=== PATIENT | female | born 1945 | race American Indian/Alaskan Native ===

== ENCOUNTER 2022-07-07 02:19 | Inpatient (IN) | payer MEDICARE, OTHER ==
[2022-07-07] MEDS ORDERED: SODIUM CHLORIDE 0.9% 500 ML 500 ML IV ONE (02:27)
[2022-07-07] MEDS ORDERED: ETOMIDATE 20 MG/10 ML INJ IV ONE (02:28)
[2022-07-07] MEDS ORDERED: ROCURONIUM 50 MG/5 ML INJ IV ONE (02:28)
--- NOTE | 2022-07-07 02:44 | Emergency Department Report ---
<LUCERO HOGAN - Last Filed: 07/07/22 07:11> ED General Adult HPI - General Chief complaint: Altered Mental Status Stated complaint: UNRESPONSIVE Time Seen by Provider: 07/07/22 02:27 - Related Data Home Medications Medication Instructions Recorded Confirmed Last Taken Apixaban [Eliquis] 5 mg PO BID 07/08/22 07/08/22 Unknown AtorvaSTATin [Lipitor] 80 mg PO QHS 07/08/22 07/08/22 Unknown Cholecalciferol Vit D3 [Vitamin D3 1,000 unit PO QDAY 07/08/22 07/08/22 Unknown 1,000 UNIT TAB] Levothyroxine [Synthroid] 75 mcg PO QAM 07/08/22 07/08/22 Unknown Melatonin [Melatonin 5MG TAB] 5 mg PO QHS 07/08/22 07/08/22 Unknown Mirtazapine 7.5 mg PO QHS 07/08/22 07/08/22 Unknown Omeprazole Magnesium [PriLOSEC Otc] 40 mg PO QDAY 07/08/22 07/08/22 Unknown VALPROIC ACID Liq [DepaKENE Liq] 250 mg PO Q12H 07/08/22 07/08/22 Unknown Allergies Allergy/AdvReac Type Severity Reaction Status Date / Time Penicillins Allergy Unknown Verified 07/07/22 18:23 ED Past Medical Hx - Medications Home Medications: Home Medications Medication Instructions Recorded Confirmed Last Taken Type Apixaban [Eliquis] 5 mg PO BID 07/08/22 07/08/22 Unknown History AtorvaSTATin [Lipitor] 80 mg PO QHS 07/08/22 07/08/22 Unknown History Cholecalciferol Vit D3 [Vitamin D3 1,000 unit PO QDAY 07/08/22 07/08/22 Unknown History 1,000 UNIT TAB] Levothyroxine [Synthroid] 75 mcg PO QAM 07/08/22 07/08/22 Unknown History Melatonin [Melatonin 5MG TAB] 5 mg PO QHS 07/08/22 07/08/22 Unknown History Mirtazapine 7.5 mg PO QHS 07/08/22 07/08/22 Unknown History Omeprazole Magnesium [PriLOSEC Otc] 40 mg PO QDAY 07/08/22 07/08/22 Unknown History VALPROIC ACID Liq [DepaKENE Liq] 250 mg PO Q12H 07/08/22 07/08/22 Unknown History ED Medical Decision Making - Lab Data Result diagrams: 07/07/22 03:38 07/07/22 04:17 ED Disposition Clinical Impression: Acute respiratory failure, Acute encephalopathy, UTI (urinary tract infection), SIRS (systemic inflammatory response syndrome), Rhabdomyolysis, Dehydration, Hypothyroidism, Hypernatremia Disposition: ADMITTED INPATIENT Condition: Critical Time of Disposition: 07:11 (Care transferred to hospitalist Dr. Victoria (discussed with Dr. Etienne)) <SERENITY HOGUE - Last Filed: 07/08/22 14:01> ED General Adult HPI - General Source: EMS (Verbal report received from emergency medical services. EMS documentation not available at time of chart dictation ), RN notes reviewed Mode of arrival: Stretcher Limitations: Altered Mental Status, Physical Limitation - History of Present Illness Initial comments: The patient was evaluated in the emergency department for symptoms described in the history of present illness. He/she was evaluated in the context of the global COVID-19 pandemic, which necessitated consideration that the patient might be at risk for infection with the virus that causes COVID-19. Institutional protocols and algorithms that pertain to the evaluation of patients at risk for COVID-19 are in a state of rapid change based on information released by regulatory bodies including the CDC and federal and state organizations. These policies and algorithms were followed during the patient's care in the emergency department. Please note that these policies, procedures and recommendations changed on a rapid basis. Primary care doctor: Dr. Garcia This is a 76-year-old female. Her past medical history includes stroke, hemiplegia, dysphagia, aphasia, dementia, history of pulmonary embolism without acute cor pulmonale, hypothyroidism, and obstructive sleep apnea. She is brought to the hospital by emergency medical services with an EMS articulated complaints of altered mental status, diminished cognition, and possible hypoxia. The patient is currently altered, encephalopathic. Her last known well time is not known. The patient is not able to describe the qualitative nature of symptoms, exacerbating factors relieving factors or aggravating factors. Current home medications include Eliquis, Synthroid, Lipitor, melatonin, Prilosec, Depakote, and enclose long-term paperwork indicates that she is a full code. Patient upon arrival is not accompanied by friends or family to describe collateral information or additional history. No additional history is available at this time -: unknown ED Review of Systems ROS: Stated complaint: UNRESPONSIVE Other details as noted in HPI Comment: Unobtainable due to pts medical conditions ED Physical Exam - General Limitations: Altered Mental Status, Physical Limitation General appearance: obtunded - Head Head exam: Present: atraumatic, normocephalic - Eye Eye exam: Present: normal appearance - ENT ENT exam: Present: mucous membranes dry, normal external ear exam, other (Copious secretions noted in the oropharynx. Gag reflex not appreciated) - Neck Neck exam: Present: normal inspection. Absent: tenderness, meningismus - Respiratory Respiratory exam: Present: respiratory distress, rhonchi - Cardiovascular Cardiovascular Exam: Present: normal rhythm, tachycardia. Absent: bradycardia, irregular rhythm, systolic murmur, diastolic murmur, rubs, gallop - GI/Abdominal GI/Abdominal exam: Present: soft. Absent: distended, tenderness, guarding, rebound, rigid, pulsatile mass - Rectal Rectal exam: Present: normal inspection - External exam: Present: normal external exam - Extremities Exam Extremities exam: Present: normal inspection, other (2+ pulses noted in the bilateral upper and lower extremities. There is no palpable cord. negative Homans sign. Muscular compartments are soft. The pelvis is stable.) - Back Exam Back exam: Present: normal inspection. Absent: tenderness, CVA tenderness (R), CVA tenderness (L), paraspinal tenderness, vertebral tenderness - Neurological Exam Neurological exam: Present: altered, other (The patient is altered. The patient moves 4 extremities in response to painful stimuli. Minimal gag reflex appreciated. No obvious facial droop.) - Psychiatric Psychiatric exam: Present: other (Patient is nonverbal) - Skin Skin exam: Present: warm, dry, intact, normal color. Absent: rash ED Course Vital Signs 07/07/22 07/07/22 07/07/22 02:19 02:40 02:45 Temperature Pulse Rate 107 H 109 H Respiratory 20 15 10 L Rate Blood Pressure 123/85 Blood Pressure [Right] O2 Sat by Pulse 90 0 L Oximetry 07/07/22 07/07/22 07/07/22 02:46 02:50 03:00 Temperature 96.1 F L Pulse Rate 99 H 120 H 141 H Respiratory 16 24 Rate Blood Pressure 123/85 107/84 Blood Pressure 137/104 [Right] O2 Sat by Pulse 100 95 56 L Oximetry 07/07/22 07/07/22 07/07/22 03:16 03:31 03:45 Temperature Pulse Rate 131 H 123 H 108 H Respiratory 22 Rate Blood Pressure 150/115 140/103 130/100 Blood Pressure [Right] O2 Sat by Pulse 86 Oximetry 07/07/22 07/07/22 07/07/22 04:00 04:15 04:31 Temperature Pulse Rate 117 H 108 H 104 H Respiratory 22 22 Rate Blood Pressure 138/101 130/100 98/73 Blood Pressure [Right] O2 Sat by Pulse Oximetry 07/07/22 07/07/22 07/07/22 04:45 05:01 05:06 Temperature Pulse Rate 71 77 120 H Respiratory 22 16 Rate Blood Pressure 152/101 164/100 Blood Pressure [Right] O2 Sat by Pulse 96 86 100 Oximetry 07/07/22 07/07/22 07/07/22 05:15 05:31 05:45 Temperature Pulse Rate 78 81 81 Respiratory 16 16 16 Rate Blood Pressure 152/103 133/93 132/94 Blood Pressure [Right] O2 Sat by Pulse 91 100 99 Oximetry 07/07/22 07/07/22 07/07/22 06:01 06:15 06:30 Temperature Pulse Rate 82 84 93 H Respiratory 16 16 16 Rate Blood Pressure 123/88 122/86 131/100 Blood Pressure [Right] O2 Sat by Pulse 96 97 99 Oximetry 07/07/22 07/07/22 07/07/22 06:46 07:00 07:15 Temperature Pulse Rate 90 92 H 94 H Respiratory 16 16 16 Rate Blood Pressure 125/91 127/90 127/90 Blood Pressure [Right] O2 Sat by Pulse Oximetry 07/07/22 07/07/22 07/07/22 07:30 07:46 08:00 Temperature Pulse Rate 92 H 92 H 93 H Respiratory 17 16 16 Rate Blood Pressure 115/85 108/82 106/73 Blood Pressure [Right] O2 Sat by Pulse 93 91 Oximetry 07/07/22 07/07/22 07/07/22 08:16 08:30 08:46 Temperature Pulse Rate 92 H 99 H 93 H Respiratory 16 12 16 Rate Blood Pressure 111/79 101/71 105/73 Blood Pressure [Right] O2 Sat by Pulse 91 Oximetry 07/07/22 07/07/22 07/07/22 08:55 09:00 09:16 Temperature Pulse Rate 118 H 107 H 93 H Respiratory 16 16 Rate Blood Pressure 117/76 113/72 120/80 Blood Pressure [Right] O2 Sat by Pulse 90 74 L Oximetry 07/07/22 07/07/22 07/07/22 09:30 09:45 10:00 Temperature Pulse Rate 97 H 98 H 101 H Respiratory 15 16 11 L Rate Blood Pressure 127/87 119/82 130/82 Blood Pressure [Right] O2 Sat by Pulse 85 51 L Oximetry 07/07/22 07/07/22 07/07/22 10:16 10:30 10:46 Temperature Pulse Rate 93 H 93 H 92 H Respiratory 13 16 17 Rate Blood Pressure 116/79 117/78 122/77 Blood Pressure [Right] O2 Sat by Pulse 98 84 Oximetry 07/07/22 07/07/22 07/07/22 11:00 11:16 11:30 Temperature Pulse Rate 90 92 H 91 H Respiratory 15 15 16 Rate Blood Pressure 105/75 115/73 119/80 Blood Pressure [Right] O2 Sat by Pulse 92 Oximetry 07/07/22 07/07/22 07/07/22 11:46 11:54 12:00 Temperature Pulse Rate 90 117 H Respiratory 16 15 Rate Blood Pressure 118/76 112/84 Blood Pressure [Right] O2 Sat by Pulse 99 74 L Oximetry 07/07/22 07/07/22 07/07/22 12:16 12:30 12:46 Temperature Pulse Rate 91 H 102 H 101 H Respiratory 16 15 16 Rate Blood Pressure 114/72 124/89 117/76 Blood Pressure [Right] O2 Sat by Pulse 94 82 L Oximetry - Reevaluation(s) Reevaluation #1: 07/07/22 03:42 Differential diagnosis, include not limited to: Intracranial hemorrhage, pneumonia, UTI, electrolyte derangement, thyroid derangement, toxic metabolic encephalopathy Assessment and plan: 76-year-old female with alteration in mental status, last known well time is not known. She is not protecting her airway. She required intubation. She was intubated by myself with 1 attempt, with no obvious difficulty. Please see procedure note. X-ray chest abdomen are reviewed and appreciated. Laboratory studies pending. Noncontrast CT scan of the brain pending. Rectal temperature 96.7 degrees. Discussed with critical care physician, Dr. Abel. Presuming patient does not have a condition which would require transfer, plan to admit patient to the ICU for supportive care. Dr. Abel is in agreement with this plan of care. He requested COVID swab. Currently awaiting CT scan brain, and laboratory studies. 07/07/22 05:[address] scan of the brain negative for acute findings. X-rays reviewed and appreciated. UA suggestive of UTI. Laboratory studies suggestive of lactic acidosis, elevated CK/rhabdomyolysis, profound dehydration, elevated sodium, hypothyroidism, questionable myxedema. Continue IV fluid resuscitation, start D5 half-normal. Stress dose steroids, hydrocortisone, Synthroid, ceftriaxone, potassium supplementation. Discussed history, physical, laboratory studies and clinical impression with nephrology on-call, Dr. Kincaid He is in agreement with the plan of care. Nephrology will follow in consultation. Care be transferred to the oncoming ER physician, to contact hospital physician to arrange admission, as the current hospitalist physician nocturnally is not able to accept any more admissions - Intubation Time Out Performed: No (Emergency situation) Sedative: Etomidate Mg Given: 20 Paralytic: Rocuronium Mg Given: 100 Laryngoscope: fiberoptic video scope Size: 4 Assist Device Used: fiberoptic device ET Tube Size: 7.5 Tube Secured Depth (cm): 24 Tube Secured Location: lips Tube Placement Confirmation: visualized tube passing t, equal breath sounds bilat, no breath sounds over epi, confirmation by capnometr Patient Tolerated Procedure: well Intubation Complications: none Additional Comments: Patient placed on nasal cannula 15 L/min. Received simultaneous [id number] ventilation. Video laryngoscopy is performed, with a curved S4 video living scope blade, and a 7.5 endotracheal tube is gently inserted into the oropharynx, after appropriate suctioning. The tube is placed through the trachea without d ifficulty, stylette is removed, corporate pilot balloon is inflated, and end-tidal capnography confirmatory device is attached to the endotracheal tube, and there is appropriate end-tidal capnography color change. Condensation is noted on the tube, and there are appropriate breath sounds appreciated bilaterally. The patient tolerated the procedure well, without obvious complication ED Medical Decision Making - Lab Data Result diagrams: 07/07/22 03:38 07/07/22 Unknown Vital Signs 07/07/22 02:46 Temperature 96.1 F L Pulse Rate 146 H Respiratory 20 Rate Blood Pressure 137/104 [Right] O2 Sat by Pulse 100 Oximetry Lab Results 07/07/22 07/07/22 07/07/22 Range/Units 03:17 03:17 03:38 WBC 9.2 (4.5-11.0) K/mm3 RBC 5.43 H (3.65-5.03) M/mm3 Hgb 18.2 H (10.1-14.3) gm/dl Hct 54.9 H (30.3-42.9) % MCV 101 H (79-97) fl MCH 34 H (28-32) pg MCHC 33 (30-34) % RDW 14.8 (13.2-15.2) % Plt Count 104 L (140-440) K/mm3 Lymph % (Auto) 28.4 (13.4-35.0) % [place] % (Auto) 3.3 (0.0-7.3) % Eos % (Auto) 0.1 (0.0-4.3) % Baso % (Auto) 0.2 (0.0-1.8) % Lymph # (Auto) 2.6 (1.2-5.4) K/mm3 [place] # (Auto) 0.3 (0.0-0.8) K/mm3 Eos # (Auto) 0.0 (0.0-0.4) K/mm3 Baso # (Auto) 0.0 (0.0-0.1) K/mm3 Seg Neutrophils % 68.0 (40.0-70.0) % Seg Neutrophils # 6.3 (1.8-7.7) K/mm3 PT (12.2-14.9) Sec. INR (0.87-1.13) APTT (24.2-36.6) Sec. ABG pH (7.350-7.450) pH Units ABG pCO2 mm Hg ABG pO2 (80.0-90.0) mm Hg ABG HCO3 (20.0-26.0) mmol/L ABG O2 Saturation (95.0-99.0) % ABG O2 Content (0.0-44) ABG Base Excess (-2.0-3.0) mmol/L ABG Hemoglobin (12.0-16.0) gm/dl ABG Carboxyhemoglobin (0.0-5.0) % ABG Methemoglobin (0.0-1.5) % Oxyhemoglobin (95.0-99.0) % FiO2 % Sodium (137-145) mmol/L Potassium (3.6-5.0) mmol/L Chloride (98-107) mmol/L Carbon Dioxide (22-30) mmol/L Anion Gap mmol/L BUN (7-17) mg/dL Creatinine (0.6-1.2) mg/dL Estimated GFR ml/min BUN/Creatinine Ratio % Glucose (65-100) mg/dL Lactic Acid (0.7-2.0) mmol/L Calcium (8.4-10.2) mg/dL Magnesium (1.7-2.3) mg/dL Total Bilirubin (0.1-1.2) mg/dL AST (5-40) units/L ALT (7-56) units/L Alkaline Phosphatase (35-129) units/L Ammonia (25-60) umol/L Total Creatine Kinase (30-135) units/L Troponin T (0.00-0.029) ng/mL Total Protein (6.3-8.2) g/dL Albumin (3.9-5) g/dL Albumin/Globulin Ratio % TSH (0.270-4.200) mlU/mL Free T4 (0.76-1.46) ng/dL Urine Color Yellow (Yellow) Urine Turbidity Slightly cloudy (Clear) Specific [place] (Man) 1.015 (1.003-1.030) Ur Protein (Man) 1+ (Negative) mg/dL Ur Ketones (Man) Negative (Negative) Ur Nitrite (Man) Negative (Negative) Urine Bilirubin (Man) Negative (Negative) Leukocyte Esterase (Man) Negative (Negative) Urine WBC (Auto) 7.0 H (0.0-6.0) /HPF Urine RBC (Auto) 1.0 (0.0-6.0) /HPF U Epithel Cells (Auto) 4.0 (0-13.0) /HPF Urine Bacteria (Auto) 3+ (Negative) /HPF Urine RBC (Manual) 3+ (Negative) Urine Mucus 3+ /HPF Salicylates (2.8-20.0) mg/dL Urine Opiates Screen Presumptive negative Urine Methadone Screen Presumptive negative Acetaminophen (10.0-30.0) ug/mL Ur Barbiturates Screen Presumptive negative Valproic Acid (50-100) ug/mL Ur Phencyclidine Scrn Presumptive negative Ur Amphetamines Screen Presumptive negative U Benzodiazepines Scrn Presumptive negative Urine Cocaine Screen Presumptive negative U Marijuana (THC) Screen Presumptive negative Drugs of Abuse Note Disclamer Plasma/Serum Alcohol (0-0.07) % 07/07/22 07/07/22 07/07/22 Range/Units 03:38 03:38 03:38 WBC (4.5-11.0) K/mm3 RBC (3.65-5.03) M/mm3 Hgb (10.1-14.3) gm/dl Hct (30.3-42.9) % MCV (79-97) fl MCH (28-32) pg MCHC (30-34) % RDW (13.2-15.2) % Plt Count (140-440) K/mm3 Lymph % (Auto) (13.4-35.0) % [place] % (Auto) (0.0-7.3) % Eos % (Auto) (0.0-4.3) % Baso % (Auto) (0.0-1.8) % Lymph # (Auto) (1.2-5.4) K/mm3 [place] # (Auto) (0.0-0.8) K/mm3 Eos # (Auto) (0.0-0.4) K/mm3 Baso # (Auto) (0.0-0.1) K/mm3 Seg Neutrophils % (40.0-70.0) % Seg Neutrophils # (1.8-7.7) K/mm3 PT 15.0 H (12.2-14.9) Sec. INR 1.06 (0.87-1.13) APTT 23.0 L (24.2-36.6) Sec. ABG pH (7.350-7.450) pH Units ABG pCO2 mm Hg ABG pO2 (80.0-90.0) mm Hg ABG HCO3 (20.0-26.0) mmol/L ABG O2 Saturation (95.0-99.0) % ABG O2 Content (0.0-44) ABG Base Excess (-2.0-3.0) mmol/L ABG Hemoglobin (12.0-16.0) gm/dl ABG Carboxyhemoglobin (0.0-5.0) % ABG Methemoglobin (0.0-1.5) % Oxyhemoglobin (95.0-99.0) % FiO2 % Sodium (137-145) mmol/L Potassium (3.6-5.0) mmol/L Chloride (98-107) mmol/L Carbon Dioxide (22-30) mmol/L Anion Gap mmol/L BUN (7-17) mg/dL Creatinine (0.6-1.2) mg/dL Estimated GFR ml/min BUN/Creatinine Ratio % Glucose (65-100) mg/dL Lactic Acid (0.7-2.0) mmol/L Calcium (8.4-10.2) mg/dL Magnesium (1.7-2.3) mg/dL Total Bilirubin (0.1-1.2) mg/dL AST (5-40) units/L ALT (7-56) units/L Alkaline Phosphatase (35-129) units/L Ammonia (25-60) umol/L Total Creatine Kinase (30-135) units/L Troponin T (0.00-0.029) ng/mL Total Protein (6.3-8.2) g/dL Albumin (3.9-5) g/dL Albumin/Globulin Ratio % TSH (0.270-4.200) mlU/mL Free T4 (0.76-1.46) ng/dL Urine Color (Yellow) Urine Turbidity (Clear) Specific [place] (Man) (1.003-1.030) Ur Protein (Man) (Negative) mg/dL Ur Ketones (Man) (Negative) Ur Nitrite (Man) (Negative) Urine Bilirubin (Man) (Negative) Leukocyte Esterase (Man) (Negative) Urine WBC (Auto) (0.0-6.0) /HPF Urine RBC (Auto) (0.0-6.0) /HPF U Epithel Cells (Auto) (0-13.0) /HPF Urine Bacteria (Auto) (Negative) /HPF Urine RBC (Manual) (Negative) Urine Mucus /HPF Salicylates < 0.3 L (2.8-20.0) mg/dL Urine Opiates Screen Urine Methadone Screen Acetaminophen 5.0 L (10.0-30.0) ug/mL Ur Barbiturates Screen Valproic Acid 7.0 L (50-100) ug/mL Ur Phencyclidine Scrn Ur Amphetamines Screen U Benzodiazepines Scrn Urine Cocaine Screen U Marijuana (THC) Screen Drugs of Abuse Note Plasma/Serum Alcohol (0-0.07) % 07/07/22 07/07/22 07/07/22 Range/Units 03:38 03:38 04:17 WBC (4.5-11.0) K/mm3 RBC (3.65-5.03) M/mm3 Hgb (10.1-14.3) gm/dl Hct (30.3-42.9) % MCV (79-97) fl MCH (28-32) pg MCHC (30-34) % RDW (13.2-15.2) % Plt Count (140-440) K/mm3 Lymph % (Auto) (13.4-35.0) % [place] % (Auto) (0.0-7.3) % Eos % (Auto) (0.0-4.3) % Baso % (Auto) (0.0-1.8) % Lymph # (Auto) (1.2-5.4) K/mm3 [place] # (Auto) (0.0-0.8) K/mm3 Eos # (Auto) (0.0-0.4) K/mm3 Baso # (Auto) (0.0-0.1) K/mm3 Seg Neutrophils % (40.0-70.0) % Seg Neutrophils # (1.8-7.7) K/mm3 PT (12.2-14.9) Sec. INR (0.87-1.13) APTT (24.2-36.6) Sec. ABG pH (7.350-7.450) pH Units ABG pCO2 mm Hg ABG pO2 (80.0-90.0) mm Hg ABG HCO3 (20.0-26.0) mmol/L ABG O2 Saturation (95.0-99.0) % ABG O2 Content (0.0-44) ABG Base Excess (-2.0-3.0) mmol/L ABG Hemoglobin (12.0-16.0) gm/dl ABG Carboxyhemoglobin (0.0-5.0) % ABG Methemoglobin (0.0-1.5) % Oxyhemoglobin (95.0-99.0) % FiO2 % Sodium 168 H* (137-145) mmol/L Potassium 3.2 L (3.6-5.0) mmol/L Chloride 122.2 H (98-107) mmol/L Carbon Dioxide 24 (22-30) mmol/L Anion Gap 25 mmol/L BUN 52 H (7-17) mg/dL Creatinine 0.9 (0.6-1.2) mg/dL Estimated GFR > 60 ml/min BUN/Creatinine Ratio 58 % Glucose 158 H (65-100) mg/dL Lactic Acid (0.7-2.0) mmol/L Calcium 10.9 H (8.4-10.2) mg/dL Magnesium 3.30 H (1.7-2.3) mg/dL Total Bilirubin 1.40 H (0.1-1.2) mg/dL AST 47 H (5-40) units/L ALT 36 (7-56) units/L Alkaline Phosphatase 87 (35-129) units/L Ammonia (25-60) umol/L Total Creatine Kinase 1826 H (30-135) units/L Troponin T 0.010 (0.00-0.029) ng/mL Total Protein 7.7 (6.3-8.2) g/dL Albumin 4.2 (3.9-5) g/dL Albumin/Globulin Ratio 1.2 % TSH (0.270-4.200) mlU/mL Free T4 (0.76-1.46) ng/dL Urine Color (Yellow) Urine Turbidity (Clear) Specific [place] (Man) (1.003-1.030) Ur Protein (Man) (Negative) mg/dL Ur Ketones (Man) (Negative) Ur Nitrite (Man) (Negative) Urine Bilirubin (Man) (Negative) Leukocyte Esterase (Man) (Negative) Urine WBC (Auto) (0.0-6.0) /HPF Urine RBC (Auto) (0.0-6.0) /HPF U Epithel Cells (Auto) (0-13.0) /HPF Urine Bacteria (Auto) (Negative) /HPF Urine RBC (Manual) (Negative) Urine Mucus /HPF Salicylates (2.8-20.0) mg/dL Urine Opiates Screen Urine Methadone Screen Acetaminophen (10.0-30.0) ug/mL Ur Barbiturates Screen Valproic Acid (50-100) ug/mL Ur Phencyclidine Scrn Ur Amphetamines Screen U Benzodiazepines Scrn Urine Cocaine Screen U Marijuana (THC) Screen Drugs of Abuse Note Plasma/Serum Alcohol < 0.01 (0-0.07) % 07/07/22 07/07/22 07/07/22 Range/Units 04:17 04:17 04:17 WBC (4.5-11.0) K/mm3 RBC (3.65-5.03) M/mm3 Hgb (10.1-14.3) gm/dl Hct (30.3-42.9) % MCV (79-97) fl MCH (28-32) pg MCHC (30-34) % RDW (13.2-15.2) % Plt Count (140-440) K/mm3 Lymph % (Auto) (13.4-35.0) % [place] % (Auto) (0.0-7.3) % Eos % (Auto) (0.0-4.3) % Baso % (Auto) (0.0-1.8) % Lymph # (Auto) (1.2-5.4) K/mm3 [place] # (Auto) (0.0-0.8) K/mm3 Eos # (Auto) (0.0-0.4) K/mm3 Baso # (Auto) (0.0-0.1) K/mm3 Seg Neutrophils % (40.0-70.0) % Seg Neutrophils # (1.8-7.7) K/mm3 PT (12.2-14.9) Sec. INR (0.87-1.13) APTT (24.2-36.6) Sec. ABG pH (7.350-7.450) pH Units ABG pCO2 mm Hg ABG pO2 (80.0-90.0) mm Hg ABG HCO3 (20.0-26.0) mmol/L ABG O2 Saturation (95.0-99.0) % ABG O2 Content (0.0-44) ABG Base Excess (-2.0-3.0) mmol/L ABG Hemoglobin (12.0-16.0) gm/dl ABG Carboxyhemoglobin (0.0-5.0) % ABG Methemoglobin (0.0-1.5) % Oxyhemoglobin (95.0-99.0) % FiO2 % Sodium (137-145) mmol/L Potassium (3.6-5.0) mmol/L Chloride (98-107) mmol/L Carbon Dioxide (22-30) mmol/L Anion Gap mmol/L BUN (7-17) mg/dL Creatinine (0.6-1.2) mg/dL Estimated GFR ml/min BUN/Creatinine Ratio % Glucose (65-100) mg/dL Lactic Acid 3.50 H* (0.7-2.0) mmol/L Calcium (8.4-10.2) mg/dL Magnesium (1.7-2.3) mg/dL Total Bilirubin (0.1-1.2) mg/dL AST (5-40) units/L ALT (7-56) units/L Alkaline Phosphatase (35-129) units/L Ammonia 32.0 (25-60) umol/L Total Creatine Kinase (30-135) units/L Troponin T (0.00-0.029) ng/mL Total Protein (6.3-8.2) g/dL Albumin (3.9-5) g/dL Albumin/Globulin Ratio % TSH (0.270-4.200) mlU/mL Free T4 0.78 (0.76-1.46) ng/dL Urine Color (Yellow) Urine Turbidity (Clear) Specific [place] (Man) (1.003-1.030) Ur Protein (Man) (Negative) mg/dL Ur Ketones (Man) (Negative) Ur Nitrite (Man) (Negative) Urine Bilirubin (Man) (Negative) Leukocyte Esterase (Man) (Negative) Urine WBC (Auto) (0.0-6.0) /HPF Urine RBC (Auto) (0.0-6.0) /HPF U Epithel Cells (Auto) (0-13.0) /HPF Urine Bacteria (Auto) (Negative) /HPF Urine RBC (Manual) (Negative) Urine Mucus /HPF Salicylates (2.8-20.0) mg/dL Urine Opiates Screen Urine Methadone Screen Acetaminophen (10.0-30.0) ug/mL Ur Barbiturates Screen Valproic Acid (50-100) ug/mL Ur Phencyclidine Scrn Ur Amphetamines Screen U Benzodiazepines Scrn Urine Cocaine Screen U Marijuana (THC) Screen Drugs of Abuse Note Plasma/Serum Alcohol (0-0.07) % 07/07/22 07/07/22 Range/Units 04:17 Unknown WBC (4.5-11.0) K/mm3 RBC (3.65-5.03) M/mm3 Hgb (10.1-14.3) gm/dl Hct (30.3-42.9) % MCV (79-97) fl MCH (28-32) pg MCHC (30-34) % RDW (13.2-15.2) % Plt Count (140-440) K/mm3 Lymph % (Auto) (13.4-35.0) % [place] % (Auto) (0.0-7.3) % Eos % (Auto) (0.0-4.3) % Baso % (Auto) (0.0-1.8) % Lymph # (Auto) (1.2-5.4) K/mm3 [place] # (Auto) (0.0-0.8) K/mm3 Eos # (Auto) (0.0-0.4) K/mm3 Baso # (Auto) (0.0-0.1) K/mm3 Seg Neutrophils % (40.0-70.0) % Seg Neutrophils # (1.8-7.7) K/mm3 PT (12.2-14.9) Sec. INR (0.87-1.13) APTT (24.2-36.6) Sec. ABG pH 7.553 H (7.350-7.450) pH Units ABG pCO2 29.5 mm Hg ABG pO2 61.7 L (80.0-90.0) mm Hg ABG HCO3 25.4 (20.0-26.0) mmol/L ABG O2 Saturation 94.7 L (95.0-99.0) % ABG O2 Content 23.5 (0.0-44) ABG Base Excess 4.3 H (-2.0-3.0) mmol/L ABG Hemoglobin 18.0 H (12.0-16.0) gm/dl ABG Carboxyhemoglobin 1.0 (0.0-5.0) % ABG Methemoglobin 0.7 (0.0-1.5) % Oxyhemoglobin 93.1 L (95.0-99.0) % FiO2 100 % Sodium (137-145) mmol/L Potassium (3.6-5.0) mmol/L Chloride (98-107) mmol/L Carbon Dioxide (22-30) mmol/L Anion Gap mmol/L BUN (7-17) mg/dL Creatinine (0.6-1.2) mg/dL Estimated GFR ml/min BUN/Creatinine Ratio % Glucose (65-100) mg/dL Lactic Acid (0.7-2.0) mmol/L Calcium (8.4-10.2) mg/dL Magnesium (1.7-2.3) mg/dL Total Bilirubin (0.1-1.2) mg/dL AST (5-40) units/L ALT (7-56) units/L Alkaline Phosphatase (35-129) units/L Ammonia (25-60) umol/L Total Creatine Kinase (30-135) units/L Troponin T (0.00-0.029) ng/mL Total Protein (6.3-8.2) g/dL Albumin (3.9-5) g/dL Albumin/Globulin Ratio % TSH 12.790 H (0.270-4.200) mlU/mL Free T4 (0.76-1.46) ng/dL Urine Color (Yellow) Urine Turbidity (Clear) Specific [place] (Man) (1.003-1.030) Ur Protein (Man) (Negative) mg/dL Ur Ketones (Man) (Negative) Ur Nitrite (Man) (Negative) Urine Bilirubin (Man) (Negative) Leukocyte Esterase (Man) (Negative) Urine WBC (Auto) (0.0-6.0) /HPF Urine RBC (Auto) (0.0-6.0) /HPF U Epithel Cells (Auto) (0-13.0) /HPF Urine Bacteria (Auto) (Negative) /HPF Urine RBC (Manual) (Negative) Urine Mucus /HPF Salicylates (2.8-20.0) mg/dL Urine Opiates Screen Urine Methadone Screen Acetaminophen (10.0-30.0) ug/mL Ur Barbiturates Screen Valproic Acid (50-100) ug/mL Ur Phencyclidine Scrn Ur Amphetamines Screen U Benzodiazepines Scrn Urine Cocaine Screen U Marijuana (THC) Screen Drugs of Abuse Note Plasma/Serum Alcohol (0-0.07) % - EKG Data -: EKG Interpreted by Me Rate: tachycardia - EKG Data When compared to previous EKG there are: previous EKG unavailable 07/07/22 03:36 The EKG is interpreted at 03: 2 0 This is sinus tachycardia, with a rate of 122 bpm. There is a leftward axis deviation, with a borderline left anterior fascicular block. There is atrial enlargement. There are nonspecific T wave abnormalities. This is an abnormal EKG. This is not a STEMI. - Radiology Data Radiology results: pending, report reviewed, image reviewed Abdomen single view INDICATION: Abdominal pain IMPRESSION: Esophagogastric tube terminates within the upper stomach. Signer Name: Alexis Resendiz MD Signed: 07/07/2022 2:25 AM Workstation Name: [id number] And CHEST 1 VIEW INDICATION / CLINICAL INFORMATION: ETT PMT Altered Mental Status. Dyspnea FINDINGS: SUPPORT DEVICES: The endotracheal tube terminates 3 cm above the mateo. Esophagogastric tube is noted within the stomach region.. HEART / MEDIASTINUM: The cardiomediastinal silhouette has not significantly changed in the interim. LUNGS / PLEURA: The lungs are clear. No pneumothorax. Signer Name: Alexis Resendiz MD Signed: 07/07/2022 2:25 AM Workstation Name: [email or web address] CT head without contrast INDICATION : Altered mental status TECHNIQUE: Axial imaging performed from the skull apex through the skull base without the use of contrast. All CT examinations performed at this facility utilize dose modulation, iterative reconstruction or weight-based dosing, when appropriate, to reduce radiation dose to as low as reasonably achievable. COMPARISON: None FINDINGS: No acute intracranial hemorrhage. There is hypodensity identified within the left frontal lobe consistent with chronic left MCA distribution in farct. Several small lacunar infarcts are present within the right basal ganglia and the left cerebellar hemisphere. There is mild diffuse cerebral atrophy. No extra-axial collection is identified The paranasal sinuses are clear.. The orbits are unremarkable. IMPRESSION: No acute intracranial hemorrhage. Multiple chronic appearing infarcts including left MCA distribution, left cerebellar hemisphere and within the right basal ganglia, as above. Signer Name: Alexis Resendiz MD Signed: 07/07/2022 3:20 AM Critical Care Time: Yes Critical care time in (mins) excluding proc time.: 45 Critical care attestation.: If time is entered above; I have spent that time in minutes in the direct care of this critically ill patient, excluding procedure time. ED Disposition Is pt being admited?: Yes Does the pt Need Aspirin: No
[2022-07-07] MEDS ORDERED: fentaNYL 100 MCG/2 ML INJ IV PRN (02:48)
[2022-07-07] MEDS ORDERED: LIP THERAPY VASELINE TP PRN (02:48)
[2022-07-07] MEDS ORDERED: MINERAL OIL/PETROLATUM, WHITE OPHTH OINT 3.5 GM OU PRN (02:48)
[2022-07-07] MEDS ORDERED: fentaNYL DRIP Premix 2,000 MCG/100 ML BAG IV SCH (03:00)
--- NOTE | 2022-07-07 03:29 | XRay Report ---
And CHEST 1 VIEW INDICATION / CLINICAL INFORMATION: ETT PMT Altered Mental Status. Dyspnea FINDINGS: SUPPORT DEVICES: The endotracheal tube terminates 3 cm above the mateo. Esophagogastric tube is note d within the stomach region.. HEART / MEDIASTINUM: The cardiomediastinal silhouette has not significantly changed in the interim. LUNGS / PLEURA: The lungs are clear. No pneumothorax. Signer Name: Alexis Resendiz MD Signed: 07/07/2022 3:25 AM Workstation Name: [email or web address]
[2022-07-07 03:54] LABS: Basophils % (Auto) 0.2 % (0.0-1.8); Eosinophils % (Auto) 0.1 % (0.0-4.3); Hematocrit 54.9 % (30.3-42.9); Hemoglobin 18.2 gm/dl (10.1-14.3); Lymphocytes # (Auto) 2.6 K/mm3 (1.2-5.4); Lymphocytes % (Auto) 28.4 % (13.4-35.0); Mean Corpuscular HGB Conc 33 % (30-34); Mean Corpuscular Volume 101 fl (79-97); Monocytes # (Auto) 0.3 K/mm3 (0.0-0.8); Monocytes % (Auto) 3.3 % (0.0-7.3); Platelet Count 104 K/mm3 (140-440); Red Blood Count 5.43 M/mm3 (3.65-5.03); Red Cell Distribution Width 14.8 % (13.2-15.2)
[2022-07-07 04:16] LABS: Color,Urine Yellow (Yellow)
[2022-07-07 04:18] LABS: Bacteria,Urine 3+ /HPF (Negative); Mucus,Urine 3+ /HPF
[2022-07-07 04:21] LABS: ABG Base Excess 4.3 mmol/L (-2.0-3.0); ABG HCO3 25.4 mmol/L (20.0-26.0); ABG Methemoglobin 0.7 % (0.0-1.5); ABG Oxygen Saturation 94.7 % (95.0-99.0); ABG PCO2 29.5 mm Hg; ABG PH 7.553 pH Units (7.350-7.450); ABG PO2 61.7 mm Hg (80.0-90.0)
[2022-07-07] MEDS ORDERED: SODIUM CHLORIDE 0.9% IV ONE (04:25)
[2022-07-07] MEDS ORDERED: cefTRIAXone/NS 2 GM/100 ML 2 GM/100 ML BAG IV ONE (04:25)
--- NOTE | 2022-07-07 04:25 | Cat Scan Report ---
CT head without contrast INDICATION : Altered mental status TECHNIQUE: Axial imaging performed from the skull apex through the skull base without the use of con trast. All CT examinations performed at this facility utilize dose modulation, iterative reconstruct ion or weight-based dosing, when appropriate, to reduce radiation dose to as low as reasonably achiev able. COMPARISON: None FINDINGS: No acute intracranial hemorrhage. There is hypodensity identified within the left frontal l obe consistent with chronic left MCA distribution infarct. Several small lacunar infarcts are present within the right basal ganglia and the left cerebellar hemisphere. There is mild diffuse cerebral at rophy. No extra-axial collection is identified The paranasal sinuses are clear.. The orbits are unremarkable. IMPRESSION: No acute intracranial hemorrhage. Multiple chronic appearing infarcts including left MCA distribution, left cerebellar hemisphere and within the right basal ganglia, as above. Signer Name: Alexis Resendiz MD Signed: 07/07/2022 4:20 AM Workstation Name: [email or web address]
[2022-07-07 04:26] LABS: Amphetamine Screen,Urine PRESUMPTIVE NEGATIVE; Benzodiazepines Screen,Urine PRESUMPTIVE NEGATIVE; Cannabinoid Screen,Urine PRESUMPTIVE NEGATIVE; Cocaine Screen,Urine PRESUMPTIVE NEGATIVE; Methadone Screen,Urine PRESUMPTIVE NEGATIVE; Opiate Screen,Urine PRESUMPTIVE NEGATIVE
[2022-07-07 04:27] LABS: INR 1.06 (0.87-1.13)
[2022-07-07 04:59] LABS: Alanine Aminotransferase 36 units/L (7-56); Albumin 4.2 g/dL (3.9-5); BUN/Creatinine Ratio 58; Blood Urea Nitrogen 52 mg/dL (7-17); Calcium 10.9 mg/dL (8.4-10.2); Hemolysis Index 60
[2022-07-07] MEDS ORDERED: LEVOTHYROXINE 100 MCG INJ IV STA (05:06)
[2022-07-07] MEDS ORDERED: HYDROCORTISONE SOD SUCC 100 MG/2 ML VIAL IV ONE (05:06)
[2022-07-07] MEDS ORDERED: D5W/0.45% NACL/KCL 40 MEQ 40 MEQ/1,000 ML BAG IV SCH (06:00)
[2022-07-07] MEDS ORDERED: POTASSIUM CHLORIDE 10 MEQ 10 MEQ/100 ML BAG IV SCH (06:00)
--- NOTE | 2022-07-07 09:33 | History and Physical Report ---
History of Present Illness Date of examination: 07/07/22 History of present illness: HPI: This is a 76-year-old female from senior care with past medical history includes stroke, hemiplegia, dysphagia, aphasia, dementia, history of pulmonary embolism without acute cor pulmonale, hypothyroidism, and obstructive sleep a pnea presenting to our facility as altered mental status and diminished cognition. Decision made by ER physician to intubated due to concern for airway protection. She is brought to the hospital by emergency medical services with an EMS articulated complaints of altered mental status, diminished cognition, and possible hypoxia. No family located thus far. Patient remains intubated and sedated so additional history could not be obtained. She is currently sedated and resting comfortably. Vitals remain stable. PMhx/PSHx:stroke, hemiplegia, dysphagia, aphasia, dementia, history of pulmonary embolism without acute cor pulmonale, hypothyroidism, and obstructive sleep apnea Current home medications include Eliquis, Synthroid, Lipitor, melatonin, Prilosec, Depakote, and enclose senior care paperwork indicates that she is a full code. FH: could not obtain. SH: Smoking: unable to obtain ETOH: unable to obtain Rec drugs; unable to obtain Primary care doctor: Dr. Garcia Medications and Allergies Allergies Allergy/AdvReac Type Severity Reaction Status Date / Time No Known Allergies Allergy Verified 07/07/22 03:34 Active Meds: Active Medications Famotidine (Famotidine 20 Mg/2 Ml Inj) 20 mg IV BID ERROL Fentanyl (Fentanyl 100 Mcg/2 Ml Inj) 50 mcg IV Q10MIN PRN PRN Reason: ANALGESIA Last Admin: 07/07/22 04:24 Dose: 50 mcg Hydrophilic Ointment (Lip Therapy Vaseline) 1 applic TP Q2HR PRN PRN Reason: Dry Lips Fentanyl Citrate (Fentanyl Drip Premix) 2,000 mcg in 100 mls @ 4.763 mls/hr IV TITR ERROL; Protocol Potassium Chloride/Dextrose/Sod Cl (D5w/0.45% Nacl/Kcl 40 Meq) 40 meq in 1,000 mls @ 125 mls/hr IV DIRECT ERROL Last Admin: 07/07/22 05:44 Dose: 125 mls/hr Multi-Ingred Cream/Lotion/Oil/Oint (Mineral Oil/Petrolatum, White Ophth Oint 3.5 Gm) 1 applic OU Q4HR PRN PRN Reason: Dry Eye(s) Senna/Docusate Sodium (Sennosides/Docusate Sodium 8.6/50 Mg Tab) 1 tab FEEDTUBE BID ERROL Review of Systems ROS unobtainable: due to endotracheal tube, due to mental status Exam - Physical Exam Narrative exam: Physical Exam: VITAL SIGNS: Reviewed. GENERAL: The patient appears normally developed, Vital signs as documented. Intubated and sedated HEAD: No signs of head trauma. EYES: Pupils are equal. Extraocular motions intact. EARS: Hearing grossly intact. MOUTH: Oropharynx is normal. NECK: No adenopathy, no JVD. CHEST: Chest with clear breath sounds bilaterally. No wheezes, rales, or rhonchi. CARDIAC: Regular rate and rhythm. S1 and S2, without murmurs, gallops, or rubs. VASCULAR: No Edema. Peripheral pulses normal and equal in all extremities. ABDOMEN: Soft, non tender and non distended. No rebound or guarding, and no masses palpated. Bowel Sounds normal. MUSCULOSKELETAL: Good range of motion of all major joints. Extremities without clubbing, cyanosis or edema. NEUROLOGIC EXAM: Unable to properly assess as patient is sedated PSYCHIATRIC: Unable to properly assess as patient is sedated SKIN: detail exam as documented in skin assessment - Constitutional Vitals: Temp Pulse Resp BP Pulse Ox 96.1 F L 90 16 125/91 90 07/07/22 02:46 07/07/22 06:46 07/07/22 06:46 07/07/22 06:46 07/07/22 08:55 HEART Score - HEART Score Troponin: Troponin T 0.010 ng/mL (0.00-0.029) 07/07/22 04:17 Results - Labs CBC & Chem 7: 07/07/22 03:38 07/07/22 Unknown Labs: Laboratory Last Values WBC 9.2 K/mm3 (4.5-11.0) 07/07/22 03:38 RBC 5.43 M/mm3 (3.65-5.03) H 07/07/22 03:38 Hgb 18.2 gm/dl (10.1-14.3) H 07/07/22 03:38 Hct 54.9 % (30.3-42.9) H 07/07/22 03:38 MCV 101 fl (79-97) H 07/07/22 03:38 MCH 34 pg (28-32) H 07/07/22 03:38 MCHC 33 % (30-34) 07/07/22 03:38 RDW 14.8 % (13.2-15.2) 07/07/22 03:38 Plt Count 104 K/mm3 (140-440) L 07/07/22 03:38 Lymph % (Auto) 28.4 % (13.4-35.0) 07/07/22 03:38 Rich % (Auto) 3.3 % (0.0-7.3) 07/07/22 03:38 Eos % (Auto) 0.1 % (0.0-4.3) 07/07/22 03:38 Baso % (Auto) 0.2 % (0.0-1.8) 07/07/22 03:38 Lymph # (Auto) 2.6 K/mm3 (1.2-5.4) 07/07/22 03:38 Rich # (Auto) 0.3 K/mm3 (0.0-0.8) 07/07/22 03:38 Eos # (Auto) 0.0 K/mm3 (0.0-0.4) 07/07/22 03:38 Baso # (Auto) 0.0 K/mm3 (0.0-0.1) 07/07/22 03:38 Seg Neutrophils % 68.0 % (40.0-70.0) 07/07/22 03:38 Seg Neutrophils # 6.3 K/mm3 (1.8-7.7) 07/07/22 03:38 PT 15.0 Sec. (12.2-14.9) H 07/07/22 03:38 INR 1.06 (0.87-1.13) 07/07/22 03:38 APTT 23.0 Sec. (24.2-36.6) L 07/07/22 03:38 ABG pH 7.553 pH Units (7.350-7.450) H 07/07/22 Unknown ABG pCO2 29.5 mm Hg 07/07/22 Unknown ABG pO2 61.7 mm Hg (80.0-90.0) L 07/07/22 Unknown ABG HCO3 25.4 mmol/L (20.0-26.0) 07/07/22 Unknown ABG O2 Saturation 94.7 % (95.0-99.0) L 07/07/22 Unknown ABG O2 Content 23.5 (0.0-44) 07/07/22 Unknown ABG Base Excess 4.3 mmol/L (-2.0-3.0) H 07/07/22 Unknown ABG Hemoglobin 18.0 gm/dl (12.0-16.0) H 07/07/22 Unknown ABG Carboxyhemoglobin 1.0 % (0.0-5.0) 07/07/22 Unknown ABG Methemoglobin 0.7 % (0.0-1.5) 07/07/22 Unknown Oxyhemoglobin 93.1 % (95.0-99.0) L 07/07/22 Unknown FiO2 100 % 07/07/22 Unknown Sodium 168 mmol/L (137-145) H* 07/07/22 04:17 Potassium 3.2 mmol/L (3.6-5.0) L 07/07/22 04:17 Chloride 122.2 mmol/L (98-107) H 07/07/22 04:17 Carbon Dioxide 24 mmol/L (22-30) 07/07/22 04:17 Anion Gap 25 mmol/L 07/07/22 04:17 BUN 52 mg/dL (7-17) H 07/07/22 04:17 Creatinine 0.9 mg/dL (0.6-1.2) 07/07/22 04:17 Estimated GFR > 60 ml/min 07/07/22 04:17 BUN/Creatinine Ratio 58 % 07/07/22 04:17 Glucose 158 mg/dL (65-100) H 07/07/22 04:17 Lactic Acid 3.50 mmol/L (0.7-2.0) H* 07/07/22 04:17 Calcium 10.9 mg/dL (8.4-10.2) H 07/07/22 04:17 Magnesium 3.30 mg/dL (1.7-2.3) H 07/07/22 03:38 Total Bilirubin 1.40 mg/dL (0.1-1.2) H 07/07/22 04:17 AST 47 units/L (5-40) H 07/07/22 04:17 ALT 36 units/L (7-56) 07/07/22 04:17 Alkaline Phosphatase 87 units/L (35-129) 07/07/22 04:17 Ammonia 32.0 umol/L (25-60) 07/07/22 04:17 Total Creatine Kinase 1826 units/L (30-135) H 07/07/22 03:38 Troponin T 0.010 ng/mL (0.00-0.029) 07/07/22 04:17 Total Protein 7.7 g/dL (6.3-8.2) 07/07/22 04:17 Albumin 4.2 g/dL (3.9-5) 07/07/22 04:17 Albumin/Globulin Ratio 1.2 % 07/07/22 04:17 TSH 12.790 mlU/mL (0.270-4.200) H 07/07/22 04:17 Free T4 0.78 ng/dL (0.76-1.46) 07/07/22 04:17 Urine Color Yellow (Yellow) 07/07/22 03:17 Urine Turbidity Slightly cloudy (Clear) 07/07/22 03:17 Specific [place] (Man) 1.015 (1.003-1.030) 07/07/22 03:17 Ur Protein (Man) 1+ mg/dL (Negative) 07/07/22 03:17 Ur Ketones (Man) Negative (Negative) 07/07/22 03:17 Ur Nitrite (Man) Negative (Negative) 07/07/22 03:17 Urine Bilirubin (Man) Negative (Negative) 07/07/22 03:17 Leukocyte Esterase (Man) Negative (Negative) 07/07/22 03:17 Urine WBC (Auto) 7.0 /HPF (0.0-6.0) H 07/07/22 03:17 Urine RBC (Auto) 1.0 /HPF (0.0-6.0) 07/07/22 03:17 U Epithel Cells (Auto) 4.0 /HPF (0-13.0) 07/07/22 03:17 Urine Bacteria (Auto) 3+ /HPF (Negative) 07/07/22 03:17 Urine RBC (Manual) 3+ (Negative) 07/07/22 03:17 Urine Mucus 3+ /HPF 07/07/22 03:17 Salicylates < 0.3 mg/dL (2.8-20.0) L 07/07/22 03:38 Urine Opiates Screen Presumptive negative 07/07/22 03:17 Urine Methadone Screen Presumptive negative 07/07/22 03:17 Acetaminophen 5.0 ug/mL (10.0-30.0) L 07/07/22 03:38 Ur Barbiturates Screen Presumptive negative 07/07/22 03:17 Valproic Acid 7.0 ug/mL (50-100) L 07/07/22 03:38 Ur Phencyclidine Scrn Presumptive negative 07/07/22 03:17 Ur Amphetamines Screen Presumptive negative 07/07/22 03:17 U Benzodiazepines Scrn Presumptive negative 07/07/22 03:17 Urine Cocaine Screen Presumptive negative 07/07/22 03:17 U Marijuana (THC) Screen Presumptive negative 07/07/22 03:17 Drugs of Abuse Note Disclamer 07/07/22 03:17 Plasma/Serum Alcohol < 0.01 % (0-0.07) 07/07/22 03:38 Microbiology: Microbiology 07/07/22 03:38 Peripheral/Venous Blood Culture - Preliminary Culture in Progress 07/07/22 03:45 Peripheral/Venous Blood Culture - Preliminary Culture in Progress Assessment and Plan Assessment and plan: Assessment #Acute hypoxic respiratory failure #coronavirus infection #Acute metabolic encephalopathy #Chronic CVA #Hypernatremia #Hypokalemia #Transaminitis #Rhabdomyolysis Plan : - intubated for airway protection due to metabolic encephalopathy from hypernatremia, poor nutritional status/hydration. - unclear baseline given chronic cva, ct brain negative for acute intracranial hemorrhage. chronic cva noted inright mca distrubution and basal ganglia. - intubated and sedated, d/c sedation - abg documented likely a vbg. per discusion with RT paO2+ 300's on follow up ABG - cxr: no obvious lung pathology noted. - D5W+ 20 MEQK IV @ 125 cc/hr, monitor electrolytes on serial bmp - start ceftriaxone/azithromycin IV - start decadron IV - start remdesivir IV - consult infectious disease. - stop sedation, will need to assess mental status - critical care consultation - nephrology consultation The high probability of a clinically significant, sudden or life threatening deterioration of the [multi] system(s) required my full and direct attention, intervention and personal management. The aggregate critical care time was [90] minutes. This time is in addition to time spent performing reported procedures but includes the following: [x] Data Review and interpretation [x] Patient assessment and monitoring of vital signs [x] Documentation [x] Medication orders and management
--- NOTE | 2022-07-07 09:52 | Electrocardiograph Report ---
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
[2022-07-07 10:04] LABS: ABG Base Excess -2.5 mmol/L (-2.0-3.0); ABG HCO3 22.9 mmol/L (20.0-26.0); ABG Methemoglobin 0.8 % (0.0-1.5); ABG Oxygen Saturation 99.6 % (95.0-99.0); ABG PCO2 41.7 mm Hg; ABG PH 7.358 pH Units (7.350-7.450)
[2022-07-07 10:05] LABS: ABG PO2 377.3 mm Hg (80.0-90.0)
[2022-07-07] MEDS ORDERED: MORPHINE 2 MG/1 ML INJ IV PRN (12:09)
[2022-07-07] MEDS ORDERED: ACETAMINOPHEN 650 MG RECT SUPP PR PRN (12:09)
--- NOTE | 2022-07-07 12:55 | Consultation ---
History of Present Illness - Reason for Consult Consult date: 07/07/22 hypernatremia - History of Present Illness RFC: Hypernatremia HPI: 76 year old F with past medical history of stroke, hemiplegia, dysphagia, aphasia, dementia, history of pulmonary embolism without acute cor pulmonale, hypothyroidism, and obstructive sleep apnea admitted with AMS. Patient has been found to have hypernatremia with a Na of 168. Pt is currently intuabted on Vent. ROS: Unable to obtain due to AMS PMH/PSH: stroke, hemiplegia, dysphagia, aphasia, dementia, history of pulmonary embolism without acute cor pulmonale, hypothyroidism, and obstructive sleep apnea FH: could not obtain. SH: Smoking: unable to obtain ETOH: unable to obtain Rec drugs; unable to obtain Medications and Allergies Allergies Allergy/AdvReac Type Severity Reaction Status Date / Time No Known Allergies Allergy Verified 07/07/22 03:34 Active Meds: Active Medications Acetaminophen (Acetaminophen 650 Mg Rect Supp) 650 mg [place] Q6H PRN PRN Reason: Pain MILD(1-3)/Fever >100.5/LEE Famotidine (Famotidine 20 Mg/2 Ml Inj) 20 mg IV BID ERROL Fentanyl (Fentanyl 100 Mcg/2 Ml Inj) 50 mcg IV Q10MIN PRN PRN Reason: ANALGESIA Last Admin: 07/07/22 04:24 Dose: 50 mcg Heparin Sodium (Porcine) (Heparin 5,000 Unit/1 Ml Vial) 5,000 unit SUB-Q Q12HR ERROL Hydrophilic Ointment (Lip Therapy Vaseline) 1 applic TP Q2HR PRN PRN Reason: Dry Lips Fentanyl Citrate (Fentanyl Drip Premix) 2,000 mcg in 100 mls @ 4.763 mls/hr IV TITR ERROL; Protocol Potassium Chloride/Dextrose/Sod Cl (D5w/0.45% Nacl/Kcl 20 Meq) 20 meq in 1,000 mls @ 100 mls/hr IV DIRECT ERROL Morphine Sulfate (Morphine 2 Mg/1 Ml Inj) 2 mg IV Q4H PRN PRN Reason: Pain, Moderate (4-6) Multi-Ingred Cream/Lotion/Oil/Oint (Mineral Oil/Petrolatum, White Ophth Oint 3.5 Gm) 1 applic OU Q4HR PRN PRN Reason: Dry Eye(s) Senna/Docusate Sodium (Sennosides/Docusate Sodium 8.6/50 Mg Tab) 1 tab FEEDTUBE BID ERROL Sodium Chloride (Sodium Chloride 0.9% 10 Ml Flush Syringe) 10 ml IV BID ERROL Sodium Chloride (Sodium Chloride 0.9% 10 Ml Flush Syringe) 10 ml IV PRN PRN PRN Reason: LINE FLUSH Exam - Vital Signs Vital signs: Vital Signs Pulse Resp BP Pulse Ox 107 H 20 123/85 90 07/07/22 02:19 07/07/22 02:19 07/07/22 02:19 07/07/22 02:19 - Physical Exam Narrative exam: Physical Exam: VITAL SIGNS: Reviewed. GENERAL: The patient appears normally developed, Vital signs as documented. Intubated and sedated HEAD: No signs of head trauma. EYES: Pupils are equal. Extraocular motions intact. EARS: Hearing grossly intact. MOUTH: Oropharynx is normal. NECK: No adenopathy, no JVD. CHEST: Chest with clear breath sounds bilaterally. No wheezes, rales, or rhonc hi. CARDIAC: Regular rate and rhythm. S1 and S2, without murmurs, gallops, or rubs. VASCULAR: No Edema. Peripheral pulses normal and equal in all extremities. ABDOMEN: Soft, non tender and non distended. No rebound or guarding, and no masses palpated. Bowel Sounds normal. MUSCULOSKELETAL: Good range of motion of all major joints. Extremities without clubbing, cyanosis or edema. NEUROLOGIC EXAM: Unable to properly assess as patient is sedated PSYCHIATRIC: Unable to properly assess as patient is sedated SKIN: detail exam as documented in skin assessment Results - Lab Results 07/07/22 03:38 07/07/22 Unknown Most recent lab results ABG pH 7.553 pH Units (7.350-7.450) H 07/07/22 Unknown ABG pCO2 29.5 mm Hg 07/07/22 Unknown ABG pO2 61.7 mm Hg (80.0-90.0) L 07/07/22 Unknown ABG HCO3 25.4 mmol/L (20.0-26.0) 07/07/22 Unknown ABG O2 Saturation 94.7 % (95.0-99.0) L 07/07/22 Unknown Calcium 10.9 mg/dL (8.4-10.2) H 07/07/22 04:17 Magnesium 3.30 mg/dL (1.7-2.3) H 07/07/22 03:38 Assessment and Plan Acute hypoxic respiratory failure Coronavirus infection Acute metabolic encephalopathy Chronic CVA Hypernatremia Hypokalemia now hyperkalemic Transaminitis Rhabdomyolysis -Na 168 on admission, Now 163 -K 6.3 (was 3.2 before) but specimen hemolyzed. Repeat BMP now. Remove K from D5 1/2 NS -D5 1/2 NS at 100 cc/hr -BMP q6H -target Na drop around 8-10 meq/24 hours -Strict I/Os -CK was somewhat high, monitor, Continue IVFs -Intubated on Vent, Per ICU Critical Care time: 36 minutes Cade Kincaid MD [phone]
[2022-07-07] MEDS ORDERED: D5W/0.45% NACL/KCL 20 MEQ 20 MEQ/1,000 ML BAG IV SCH (13:00)
--- NOTE | 2022-07-07 13:32 | Consultation ---
History of Present Illness Consult date: 07/07/22 Requesting physician: SERENITY HOGUE Reason for consult: other (acute respiratory failure) History of present illness: 76 y/o female presented to ED last night secondary to AMS from shelter. Per chart, unresponsive. Intubated for airway protection and then started on sedation. Unresponsive this am but on sedation. CXR is clear. Normal renal function but hypernatremic. ONe ABG done, not sure when or what setting this was taken but gas ordered this am is better. Past History Past Medical History: other (unable to obtain) Past Surgical History: Other (unable to obtain) Social history: other (unable to obtain) Family history: other (unable to obtain) Medications and Allergies Allergies Allergy/AdvReac Type Severity Reaction Status Date / Time No Known Allergies Allergy Verified 07/07/22 03:34 Active Meds: Active Medications Acetaminophen (Acetaminophen 650 Mg Rect Supp) [address] Q6H PRN PRN Reason: Pain MILD(1-3)/Fever >100.5/LEE Famotidine (Famotidine 20 Mg/2 Ml Inj) 20 mg IV BID ERROL Fentanyl (Fentanyl 100 Mcg/2 Ml Inj) 50 mcg IV Q10MIN PRN PRN Reason: ANALGESIA Last Admin: 07/07/22 04:24 Dose: 50 mcg Heparin Sodium (Porcine) (Heparin 5,000 Unit/1 Ml Vial) 5,000 unit SUB-Q Q12HR ERROL Hydrophilic Ointment (Lip Therapy Vaseline) 1 applic TP Q2HR PRN PRN Reason: Dry Lips Potassium Chloride/Dextrose/Sod Cl (D5w/0.45% Nacl/Kcl 20 Meq) 20 meq in 1,000 mls @ 100 mls/hr IV DIRECT ERROL Morphine Sulfate (Morphine 2 Mg/1 Ml Inj) 2 mg IV Q4H PRN PRN Reason: Pain, Moderate (4-6) Multi-Ingred Cream/Lotion/Oil/Oint (Mineral Oil/Petrolatum, White Ophth Oint 3.5 Gm) 1 applic OU Q4HR PRN PRN Reason: Dry Eye(s) Senna/Docusate Sodium (Sennosides/Docusate Sodium 8.6/50 Mg Tab) 1 tab FEEDTUBE BID ERROL Sodium Chloride (Sodium Chloride 0.9% 10 Ml Flush Syringe) 10 ml IV BID ERROL Sodium Chloride (Sodium Chloride 0.9% 10 Ml Flush Syringe) 10 ml IV PRN PRN PRN Reason: LINE FLUSH Review of Systems ROS unobtainable: due to endotracheal tube, due to mental status Physical Examination Vital signs: Vital Signs Pulse Resp BP Pulse Ox 107 H 20 123/85 90 07/07/22 02:19 07/07/22 02:19 07/07/22 02:19 07/07/22 02:19 Results - Laboratory Findings CBC and BMP: 07/07/22 03:38 07/07/22 04:17 ABG ABG pH 7.553 pH Units (7.350-7.450) H 07/07/22 Unknown ABG pCO2 29.5 mm Hg 07/07/22 Unknown ABG pO2 61.7 mm Hg (80.0-90.0) L 07/07/22 Unknown ABG O2 Saturation 94.7 % (95.0-99.0) L 07/07/22 Unknown PT/INR, D-dimer PT 15.0 Sec. (12.2-14.9) H 07/07/22 03:38 INR 1.06 (0.87-1.13) 07/07/22 03:38 Abnormal lab findings: Abnormal Labs 07/07/22 07/07/22 07/07/22 03:17 03:38 03:38 RBC 5.43 H Hgb 18.2 H Hct 54.9 H MCV 101 H MCH 34 H Plt Count 104 L PT 15.0 H APTT 23.0 L ABG pH ABG pO2 ABG O2 Saturation ABG Base Excess ABG Hemoglobin Oxyhemoglobin Sodium Potassium Chloride BUN Glucose Lactic Acid Uric Acid Calcium Magnesium Total Bilirubin AST Total Creatine Kinase TSH Urine WBC (Auto) 7.0 H Salicylates Acetaminophen Valproic Acid 07/07/22 07/07/22 07/07/22 03:38 03:38 03:38 RBC Hgb Hct MCV MCH Plt Count PT APTT ABG pH ABG pO2 ABG O2 Saturation ABG Base Excess ABG Hemoglobin Oxyhemoglobin Sodium Potassium Chloride BUN Glucose Lactic Acid Uric Acid Calcium Magnesium 3.30 H Total Bilirubin AST Total Creatine Kinase 1826 H TSH Urine WBC (Auto) Salicylates < 0.3 L Acetaminophen 5.0 L Valproic Acid 7.0 L 07/07/22 07/07/22 07/07/22 04:17 04:17 04:17 RBC Hgb Hct MCV MCH Plt Count PT APTT ABG pH ABG pO2 ABG O2 Saturation ABG Base Excess ABG Hemoglobin Oxyhemoglobin Sodium 168 H* Potassium 3.2 L Chloride 122.2 H BUN 52 H Glucose 158 H Lactic Acid 3.50 H* Uric Acid Calcium 10.9 H Magnesium Total Bilirubin 1.40 H AST 47 H Total Creatine Kinase TSH 12.790 H Urine WBC (Auto) Salicylates Acetaminophen Valproic Acid 07/07/22 07/07/22 07/07/22 04:17 09:35 Unknown RBC Hgb Hct MCV MCH Plt Count PT APTT ABG pH 7.553 H ABG pO2 377.3 H 61.7 L ABG O2 Saturation 99.6 H 94.7 L ABG Base Excess -2.5 L 4.3 H ABG Hemoglobin 18.0 H Oxyhemoglobin 93.1 L Sodium Potassium Chloride BUN Glucose Lactic Acid Uric Acid 13.5 H Calcium Magnesium Total Bilirubin AST Total Creatine Kinase TSH Urine WBC (Auto) Salicylates Acetaminophen Valproic Acid - Diagnostic Findings Chest x-ray: image reviewed Assessment and Plan 76 y/o female with acute respiratory failure secondary to altered mental status, most likely from electrolyte abnormalities seen on chemistry. 1. Discontinue sedation 2. Wean FiO2 for sats >88% and PaO2 greater than 60 3. AGree with fluid resuscitation, patient needs free water 4. Will follow up with family to find out exactly what patient mental status was a facility CCT 31 minutes.
[2022-07-07 14:18] LABS: Calcium 9.7 mg/dL (8.4-10.2)
[2022-07-07] MEDS: FAMOTIDINE 20 MG/2 ML INJ IV SCH ×2 (14:22→21:31)
[2022-07-07] MEDS: SENNOSIDES/DOCUSATE SODIUM 8.6/50 MG TAB FEEDTUBE SCH ×2 (14:23→21:31)
[2022-07-07] MEDS ORDERED: REMDESIVIR 200 MG in SODIUM CHLORIDE 0.9% 250ML 250 ML IV ONE (16:07)
[2022-07-07 16:34] LABS: Calcium 9.7 mg/dL (8.4-10.2)
[2022-07-07] MEDS: HEPARIN 5,000 UNIT/1 ML VIAL SUB-Q SCH ×2 (16:35→21:30)
[2022-07-07] MEDS: AZITHROMYCIN/NS 500 MG/250 ML 500 MG/250 ML BAG IV SCH (16:36)
[2022-07-07] MEDS ORDERED: cefTRIAXone/NS 1 GM/50 ML 1 GM/50 ML BAG IV SCH (17:00)
[2022-07-07 17:11] LABS: Creatinine,Urine 92.9 mg/dL (0.1-20.0)
[2022-07-07 21:58] LABS: Blood Urea Nitrogen TNR mg/dL (7-17)
[2022-07-07 21:59] LABS: BUN/Creatinine Ratio TNR; Calcium TNR mg/dL (8.4-10.2); Hemolysis Index TNR
[2022-07-08 00:09] LABS: BUN/Creatinine Ratio 38; Blood Urea Nitrogen 38 mg/dL (7-17); Calcium 9.4 mg/dL (8.4-10.2); Hemolysis Index 93
[2022-07-08] MEDS: D5W/0.45% NACL 1,000 ML IV SCH ×2 (02:00→12:00)
--- NOTE | 2022-07-08 03:15 | XRay Report ---
CHEST 1 VIEW INDICATION / CLINICAL INFORMATION: follow up respiratory failure. FINDINGS: SUPPORT DEVICES: No significant change in position. HEART / MEDIASTINUM: The cardiomediastinal silhouette has not significantly changed in the interim. LUNGS / PLEURA: Slight increase in patchy densities within the right lower lung. Signer Name: Alexis Resendiz MD Signed: 07/08/2022 3:11 AM Workstation Name: [email or web address]
[2022-07-08] MEDS: HEPARIN 5,000 UNIT/1 ML VIAL SUB-Q SCH ×2 (05:38→17:18)
[2022-07-08 06:18] LABS: ABG Base Excess 0.4 mmol/L (-2.0-3.0); ABG HCO3 23.2 mmol/L (20.0-26.0); ABG Methemoglobin 0.7 % (0.0-1.5); ABG Oxygen Saturation 98.5 % (95.0-99.0); ABG PCO2 32.4 mm Hg; ABG PH 7.473 pH Units (7.350-7.450); ABG PO2 121.7 mm Hg (80.0-90.0)
[2022-07-08] MEDS: dexAMETHasone 4 MG/ML VIAL IV SCH (10:18)
[2022-07-08] MEDS: FAMOTIDINE 20 MG/2 ML INJ IV SCH ×2 (10:18→21:38)
[2022-07-08] MEDS: VALPROIC ACID 250 MG/5 ML ORAL LIQD PO SCH ×2 (10:18→21:37)
[2022-07-08] MEDS: FREE WATER PO SCH ×4 (10:19→21:38)
[2022-07-08] MEDS: CHOLECALCIFEROL (VIT D3) 1000 UNIT (25 mcg) TAB PO SCH (10:19)
[2022-07-08] MEDS: SENNOSIDES/DOCUSATE SODIUM 8.6/50 MG TAB FEEDTUBE SCH ×2 (10:19→21:38)
[2022-07-08] MEDS: LEVOTHYROXINE 75 MCG TAB PO SCH (10:19)
--- NOTE | 2022-07-08 10:55 | Consultation ---
History of Present Illness - Reason for Consult Consult date: 07/08/22 COVID-19 Requesting physician: FOX DOUGLAS - History of Present Illness The patient is a 76-year-old female with prior CVA, hemiplegia, aphasia, dementia, history of pulmonary embolism [facility] with altered [facility] status, hypoxia. Was seen in the ED, intubated for airway protection. Afebrile. Labs showed normal WBC, significant hypernatremia with sodium of 168, hypercalcemia, hypermagnesemia, elevated CK at 1826. Tested positive for COVID-19, hence infectious diseases was consulted. Chest x-ray showed clear lungs. CT head showed no acute intracranial hemorrhage, showed multiple chronic infarcts. Repeat chest x-ray showed increasing patchy infiltr ates in right lower lung with ET tube in place. Review of Systems: on the vent, limited Past History Past Medical History: other (unable to obtain) Past Surgical History: Other (unable to obtain) Social history: other (unable to obtain) Family history: other (unable to obtain) Medications and Allergies Allergies Allergy/AdvReac Type Severity Reaction Status Date / Time Penicillins Allergy Unknown Verified 07/07/22 18:23 Home Medications Medication Instructions Recorded Confirmed Last Taken Type Apixaban [Eliquis] 5 mg PO BID 07/08/22 07/08/22 Unknown History AtorvaSTATin [Lipitor] 80 mg PO QHS 07/08/22 07/08/22 Unknown History Cholecalciferol Vit D3 [Vitamin D3 1,000 unit PO QDAY 07/08/22 07/08/22 Unknown History 1,000 UNIT TAB] Levothyroxine [Synthroid] 75 mcg PO QAM 07/08/22 07/08/22 Unknown History Melatonin [Melatonin 5MG TAB] 5 mg PO QHS 07/08/22 07/08/22 Unknown History Mirtazapine 7.5 mg PO QHS 07/08/22 07/08/22 Unknown History Omeprazole Magnesium [PriLOSEC Otc] 40 mg PO QDAY 07/08/22 07/08/22 Unknown History VALPROIC ACID Liq [DepaKENE Liq] 250 mg PO Q12H 07/08/22 07/08/22 Unknown History Active Meds: Active Medications Acetaminophen (Acetaminophen 650 Mg Rect Supp) 650 mg OR Q6H PRN PRN Reason: Pain MILD(1-3)/Fever >100.5/LEE Atorvastatin Calcium (Atorvastatin 40 Mg Tab) 80 mg PO QHS PENDING SALE TO [facility] Cholecalciferol (Cholecalciferol (Vit D3) 1000 Unit (25 Mcg) Tab) 1,000 unit PO QDAY PENDING SALE TO [facility] Last Admin: 07/08/22 10:19 Dose: 1,000 unit Dexamethasone (Dexamethasone 4 Mg/Ml Vial) 6 mg IV Q24HR PENDING SALE TO [facility] Stop: 07/17/22 10:01 Last Admin: 07/08/22 10:18 Dose: 6 mg Famotidine (Famotidine 20 Mg/2 Ml Inj) 20 mg IV BID PENDING SALE TO [facility] Last Admin: 07/08/22 10:18 Dose: 20 mg Heparin Sodium (Porcine) (Heparin 5,000 Unit/1 Ml Vial) 5,000 unit SUB-Q Q12H PENDING SALE TO [facility] Last Admin: 07/08/22 05:38 Dose: 5,000 unit Hydrophilic Ointment (Lip Therapy Vaseline) 1 applic TP Q2HR PRN PRN Reason: Dry Lips Remdesivir 100 mg/ Sodium (Chloride) 250 mls @ 500 mls/hr IV Q24HR@1400 PENDING SALE TO [facility] Stop: 07/11/22 14:29 Azithromycin (Zithromax/Ns) 500 mg in 250 mls @ 250 mls/hr IV Q24H PENDING SALE TO [facility] Last Infusion: 07/07/22 17:36 Dose: Infused Dextrose/Sodium Chloride (D5/0.45ns) 1,000 mls @ 100 mls/hr IV DIRECT PENDING SALE TO [facility] Last Admin: 07/08/22 02:00 Dose: 100 mls/hr Ceftriaxone Sodium (Rocephin/Ns 2 Gm/100 Ml) 2 gm in 100 mls @ 200 mls/hr IV Q24H PENDING SALE TO [facility]; Protocol Levothyroxine Sodium (Levothyroxine 75 Mcg Tab) 75 mcg PO QAM PENDING SALE TO [facility] Last Admin: 07/08/22 10:19 Dose: 75 mcg Multi-Ingred Cream/Lotion/Oil/Oint (Mineral Oil/Petrolatum, White Ophth Oint 3.5 Gm) 1 applic OU Q4HR PRN PRN Reason: Dry Eye(s) Senna/Docusate Sodium (Sennosides/Docusate Sodium 8.6/50 Mg Tab) 1 tab FEEDTUBE BID PENDING SALE TO [facility] Last Admin: 07/08/22 10:19 Dose: 1 tab Sodium Chloride (Sodium Chloride 0.9% 10 Ml Flush Syringe) 10 ml IV BID PENDING SALE TO [facility] Last Admin: 07/08/22 10:19 Dose: 10 ml Sodium Chloride (Sodium Chloride 0.9% 10 Ml Flush Syringe) 10 ml IV PRN PRN PRN Reason: LINE FLUSH Sodium Chloride (Sodium Chloride 0.9% 50 Ml Ivpb) 50 ml IV Q24HR@1400 PENDING SALE TO [facility] Stop: 07/12/22 14:01 Valproic Acid (Valproic Acid 250 Mg/5 Ml Oral Liqd) 250 mg PO Q12H PENDING SALE TO [facility] Last Admin: 07/08/22 10:18 Dose: 250 mg Physical Examination - Physical Exam Narrative exam: Physical Exam: Constitutional: sedated, intubated, on the vent Head, Ears, Nose: Normocephalic, atraumatic. External ears, nose normal Eyes: Conjunctivae/corneas clear. No icterus. No ptosis. Neck: intubated Oral: intubated Cardiovascular: S1, S2 + Respiratory: AE fair bilaterally and equal GI: Soft, bowel sounds + Musculoskeletal: No pedal edema, no cyanosis. Skin: No rash or abscess Hem/Lymphatic: No palpable cervical or supraclavicular nodes. No lymphangitis Psych: no agitation Neurological: sedated, intubated, on the vent, exam limited - Constitutional Vitals: Vital Signs Temp Pulse Resp BP Pulse Ox 97.5 F L 75 16 90/61 98 07/08/22 07:15 07/08/22 08:46 07/08/22 08:00 07/08/22 08:46 07/08/22 08:46 Temperature -Last 24 Hours Temperature 97.5 F Temperature 97.5 F Temperature 97.5 F Temperature 97.3 F Temperature 96.8 F Results - Labs CBC & Chem 7: 07/07/22 03:38 07/07/22 Unknown Labs: Abnormal lab results 07/07/22 07/07/22 07/07/22 Range/Units 07:43 15:00 16:00 ABG pH (7.350-7.450) pH Units ABG pO2 (80.0-90.0) mm Hg Sodium (137-145) mmol/L Potassium (3.6-5.0) mmol/L Chloride (98-107) mmol/L Carbon Dioxide (22-30) mmol/L BUN (7-17) mg/dL Glucose (65-100) mg/dL POC Glucose (70-105) mg/dL Lactic Acid 6.30 H* 7.00 H* (0.7-2.0) mmol/L AST (5-40) units/L Urine Creatinine (0.1-20.0) mg/dL SARS-CoV-2 (PCR) Positive A (Negative) 07/07/22 07/07/22 07/07/22 Range/Units 16:00 16:45 23:42 ABG pH (7.350-7.450) pH Units ABG pO2 (80.0-90.0) mm Hg Sodium 166 H* 165 H* (137-145) mmol/L Potassium 3.0 L (3.6-5.0) mmol/L Chloride 124.8 H 122.8 H (98-107) mmol/L Carbon Dioxide 20 L (22-30) mmol/L BUN 41 H 38 H (7-17) mg/dL Glucose 157 H 232 H (65-100) mg/dL POC Glucose (70-105) mg/dL Lactic Acid (0.7-2.0) mmol/L AST 81 H (5-40) units/L Urine Creatinine 92.9 H (0.1-20.0) mg/dL SARS-CoV-2 (PCR) (Negative) 07/07/22 07/07/22 07/08/22 Range/Units 23:42 Unknown 05:30 ABG pH 7.473 H (7.350-7.450) pH Units ABG pO2 121.7 H (80.0-90.0) mm Hg Sodium 163 H* (137-145) mmol/L Potassium 6.3 H* D (3.6-5.0) mmol/L Chloride 123.7 H (98-107) mmol/L Carbon Dioxide (22-30) mmol/L BUN 42 H (7-17) mg/dL Glucose 169 H (65-100) mg/dL POC Glucose (70-105) mg/dL Lactic Acid 5.60 H* (0.7-2.0) mmol/L AST (5-40) units/L Urine Creatinine (0.1-20.0) mg/dL SARS-CoV-2 (PCR) (Negative) 08/29/22 Range/Units 05:36 ABG pH (7.350-7.450) pH Units ABG pO2 (80.0-90.0) mm Hg Sodium (137-145) mmol/L Potassium (3.6-5.0) mmol/L Chloride (98-107) mmol/L Carbon Dioxide (22-30) mmol/L BUN (7-17) mg/dL Glucose (65-100) mg/dL POC Glucose 174 H (70-105) mg/dL Lactic Acid (0.7-2.0) mmol/L AST (5-40) units/L Urine Creatinine (0.1-20.0) mg/dL SARS-CoV-2 (PCR) (Negative) - Imaging and Cardiology Chest x-ray: report reviewed, image reviewed (no significant pneumonia seen) Assessment and Plan Cultures: SARS CoV2 PCR: Positive 07/07/2022 blood culture: No growth 06/29/2022 sputum culture: In process A/P: 76-year-old female with prior CVA, hemiplegia, aphasia, dementia, history of pulmonary embolism [facility] with altered mental status, hypoxia. Was seen in the ED, intubated for airway protection: #COVID-19: CXR without significant pneumonia. #Acute hypoxic respiratory failure: On mechanical ventilation #Acute encephalopathy: Likely metabolic, sodium was significantly elevated on admission #Chronic CVA, dementia #Transaminitis: Mild, could be related to COVID-19, there is a mild CPK elevation as well. Recs: -OK with IV/PO Dexamethasone x 10 days -IV remdesivir x 5 days -I do not see significant pneumonia on chest x-ray, would hold off on any Actemra use -prophylactic anticoagulation based on d-dimer per hospital protocol -if procalcitonin is low, abx not needed -trend ferritin, d-dimer, CRP every 2-3 days d/w ICU pharmacist and with Dr. Abel. Vanessa Pires MD, FACP, [facility] ([facility]) O: [phone] F: [phone] C: [phone]
--- NOTE | 2022-07-08 11:01 | Progress Note ---
Assessment and Plan 76 y/o female with acute respiratory failure secondary to altered mental status, most likely from electrolyte abnormalities seen on chemistry, found to be COVID positive. 07/08/22: No further sedation. 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 Consider neurology consult and may need to obtain MRI. Attempt PSV trials today. needs Picc line placed for manager terminal access as patient is a difficult stick. Feed patient and monitor lytes. 1. Discontinue sedation 2. Wean FiO2 for sats >88% and PaO2 greater than 60 3. AGree with fluid resuscitation, patient needs free water 4. Will follow up with family to find out exactly what patient mental status was a facility CCT 31 minutes. Subjective Date of service: 07/08/22 Interval history: Patient is COVID positive. ID consulted. Remains off sedation and still not waking up. Does move extremities but not purposefully. Na is improving Objective Vital Signs - 12hr 07/08/22 07/08/22 07/08/22 00:00 03:23 04:00 Temperature 97.5 F L 97.5 F L Pulse Rate 91 H 86 81 Pulse Rate [ From Monitor] Respiratory 16 16 Rate Blood Pressure 108/78 97/72 O2 Sat by Pulse 98 100 98 Oximetry 07/08/22 07/08/22 07/08/22 07:15 08:00 08:46 Temperature 97.5 F L Pulse Rate 77 75 Pulse Rate [ 77 From Monitor] Respiratory 16 Rate Blood Pressure 90/61 O2 Sat by Pulse 99 98 Oximetry CBC and BMP: 07/07/22 03:38 07/07/22 Unknown ABG, PT/INR, D-dimer: ABG ABG pH 7.473 pH Units (7.350-7.450) H 07/08/22 05:30 ABG pCO2 32.4 mm Hg 07/08/22 05:30 ABG pO2 121.7 mm Hg (80.0-90.0) H 07/08/22 05:30 ABG O2 Saturation 98.5 % (95.0-99.0) 07/08/22 05:30 PT/INR, D-dimer PT 15.0 Sec. (12.2-14.9) H 07/07/22 03:38 INR 1.06 (0.87-1.13) 07/07/22 03:38 Abnormal lab findings: Abnormal Labs 0807/07/22 07/07/22 03:17 03:38 03:38 RBC 5.43 H Hgb 18.2 H Hct 54.9 H MCV 101 H MCH 34 H Plt Count 104 L PT 15.0 H APTT 23.0 L ABG pH ABG pO2 ABG O2 Saturation ABG Base Excess ABG Hemoglobin Oxyhemoglobin Sodium Potassium Chloride Carbon Dioxide BUN Glucose POC Glucose Lactic Acid Uric Acid Calcium Magnesium Total Bilirubin AST Total Creatine Kinase TSH Urine WBC (Auto) 7.0 H Urine Creatinine Salicylates Acetaminophen Valproic Acid SARS-CoV-2 (PCR) 07/07/22 07/07/22 07/07/22 03:38 03:38 03:38 RBC Hgb Hct MCV MCH Plt Count PT APTT ABG pH ABG pO2 ABG O2 Saturation ABG Base Excess ABG Hemoglobin Oxyhemoglobin Sodium Potassium Chloride Carbon Dioxide BUN Glucose POC Glucose Lactic Acid Uric Acid Calcium Magnesium 3.30 H Total Bilirubin AST Total Creatine Kinase 1826 H TSH Urine WBC (Auto) Urine Creatinine Salicylates < 0.3 L Acetaminophen 5.0 L Valproic Acid 7.0 L SARS-CoV-2 (PCR) 07/07/22 07/07/22 07/07/22 04:17 04:17 04:17 RBC Hgb Hct MCV MCH Plt Count PT APTT ABG pH ABG pO2 ABG O2 Saturation ABG Base Excess ABG Hemoglobin Oxyhemoglobin Sodium 168 H* Potassium 3.2 L Chloride 122.2 H Carbon Dioxide BUN 52 H Glucose 158 H POC Glucose Lactic Acid 3.50 H* Uric Acid Calcium 10.9 H Magnesium Total Bilirubin 1.40 H AST 47 H Total Creatine Kinase TSH 12.790 H Urine WBC (Auto) Urine Creatinine Salicylates Acetaminophen Valproic Acid SARS-CoV-2 (PCR) 07/07/22 07/07/22 07/07/22 04:17 07:43 09:35 RBC Hgb Hct MCV MCH Plt Count PT APTT ABG pH ABG pO2 377.3 H ABG O2 Saturation 99.6 H ABG Base Excess -2.5 L ABG Hemoglobin Oxyhemoglobin Sodium Potassium Chloride Carbon Dioxide BUN Glucose POC Glucose Lactic Acid 6.30 H* Uric Acid 13.5 H Calcium Magnesium Total Bilirubin AST Total Creatine Kinase TSH Urine WBC (Auto) Urine Creatinine Salicylates Acetaminophen Valproic Acid SARS-CoV-2 (PCR) 07/07/22 07/07/22 07/07/22 15:00 16:00 16:00 RBC Hgb Hct MCV MCH Plt Count PT APTT ABG pH ABG pO2 ABG O2 Saturation ABG Base Excess ABG Hemoglobin Oxyhemoglobin Sodium 166 H* Potassium Chloride 124.8 H Carbon Dioxide 20 L BUN 41 H Glucose 157 H POC Glucose Lactic Acid 7.00 H* Uric Acid Calcium Magnesium Total Bilirubin AST 81 H Total Creatine Kinase TSH Urine WBC (Auto) Urine Creatinine Salicylates Acetaminophen Valproic Acid SARS-CoV-2 (PCR) Positive A 07/07/22 07/07/22 07/07/22 16:45 23:42 23:42 RBC Hgb Hct MCV MCH Plt Count PT APTT ABG pH ABG pO2 ABG O2 Saturation ABG Base Excess ABG Hemoglobin Oxyhemoglobin Sodium 165 H* Potassium 3.0 L Chloride 122.8 H Carbon Dioxide BUN 38 H Glucose 232 H POC Glucose Lactic Acid 5.60 H* Uric Acid Calcium Magnesium Total Bilirubin AST Total Creatine Kinase TSH Urine WBC (Auto) Urine Creatinine 92.9 H Salicylates Acetaminophen Valproic Acid SARS-CoV-2 (PCR) 07/07/22 07/07/22 07/08/22 Unknown Unknown 05:30 RBC Hgb Hct MCV MCH Plt Count PT APTT ABG pH 7.553 H 7.473 H ABG pO2 61.7 L 121.7 H ABG O2 Saturation 94.7 L ABG Base Excess 4.3 H ABG Hemoglobin 18.0 H Oxyhemoglobin 93.1 L Sodium 163 H* Potassium 6.3 H* D Chloride 123.7 H Carbon Dioxide BUN 42 H Glucose 169 H POC Glucose Lactic Acid Uric Acid Calcium Magnesium Total Bilirubin AST Total Creatine Kinase TSH Urine WBC (Auto) Urine Creatinine Salicylates Acetaminophen Valproic Acid SARS-CoV-2 (PCR) 07/08/22 05:36 RBC Hgb Hct MCV MCH Plt Count PT APTT ABG pH ABG pO2 ABG O2 Saturation ABG Base Excess ABG Hemoglobin Oxyhemoglobin Sodium Potassium Chloride Carbon Dioxide BUN Glucose POC Glucose 174 H Lactic Acid Uric Acid Calcium Magnesium Total Bilirubin AST Total Creatine Kinase TSH Urine WBC (Auto) Urine Creatinine Salicylates Acetaminophen Valproic Acid SARS-CoV-2 (PCR)
--- NOTE | 2022-07-08 12:03 | Progress Note ---
Assessment and Plan Assessment: Acute hypoxic respiratory failure Coronavirus infection Acute metabolic encephalopathy Chronic CVA Hypernatremia Hypokalemia now hyperkalemic Transaminitis Rhabdomyolysis Plan: -No new labs resulted at present. Sodium level yesterday was 168 -On D5 1/2NS@ 100 ml/hr -Currently NPO. Free water flush if get feeding tube placed -Target sodium decrease is around 8-10 meq/24 hours -Monitor potassium levels -BMP every 6 hours -Strict I/O's daily -Obtain daily weights -Plan of care reviewed by Dr. Samuel Subjective Date of service: 07/08/22 Principal diagnosis: Hypernatremia Interval history: Patient with active covid-19 infection, chart reviewed, labs for today are pending Objective - Vital Signs Vital signs: Vital Signs - 12hr 07/08/22 07/08/22 07/08/22 03:23 04:00 07:15 Temperature 97.5 F L 97.5 F L Pulse Rate 86 81 Pulse Rate [ From Monitor] Respiratory 16 Rate Blood Pressure 97/72 O2 Sat by Pulse 100 98 Oximetry 07/08/22 07/08/22 07/08/22 08:00 08:46 11:15 Temperature Pulse Rate 77 75 75 Pulse Rate [ 77 From Monitor] Respiratory 16 Rate Blood Pressure 90/61 90/61 O2 Sat by Pulse 99 98 98 Oximetry 07/08/22 07/08/22 07/08/22 11:29 11:30 11:46 Temperature 97.5 F L Pulse Rate 72 Pulse Rate [ 76 From Monitor] Respiratory 16 Rate Blood Pressure O2 Sat by Pulse 100 Oximetry - Lab 07/07/22 03:38 07/07/22 Unknown Most recent lab results ABG pH 7.473 pH Units (7.350-7.450) H 07/08/22 05:30 ABG pCO2 32.4 mm Hg 07/08/22 05:30 ABG pO2 121.7 mm Hg (80.0-90.0) H 07/08/22 05:30 ABG HCO3 23.2 mmol/L (20.0-26.0) 07/08/22 05:30 ABG O2 Saturation 98.5 % (95.0-99.0) 07/08/22 05:30 Calcium 9.7 mg/dL (8.4-10.2) 07/07/22 Unknown Magnesium 3.30 mg/dL (1.7-2.3) H 07/07/22 03:38 Urine Creatinine 92.9 mg/dL (0.1-20.0) H 07/07/22 16:45 Urine Sodium 109 mmol/L 07/07/22 16:45 Medications & Allergies - Medications Allergies/Adverse Reactions: Allergies Penicillins Allergy (Verified 07/07/22 18:23) Unknown Home Medications: Home Medications Medication Instructions Recorded Confirmed Last Taken Type Apixaban [Eliquis] 5 mg PO BID 07/08/22 07/08/22 Unknown History AtorvaSTATin [Lipitor] 80 mg PO QHS 07/08/22 07/08/22 Unknown History Cholecalciferol Vit D3 [Vitamin D3 1,000 unit PO QDAY 07/08/22 07/08/22 Unknown History 1,000 UNIT TAB] Levothyroxine [Synthroid] 75 mcg PO QAM 07/08/22 07/08/22 Unknown History Melatonin [Melatonin 5MG TAB] 5 mg PO QHS 07/08/22 07/08/22 Unknown History Mirtazapine 7.5 mg PO QHS 07/08/22 07/08/22 Unknown History Omeprazole Magnesium [PriLOSEC Otc] 40 mg PO QDAY 07/08/22 07/08/22 Unknown History VALPROIC ACID Liq [DepaKENE Liq] 250 mg PO Q12H 07/08/22 07/08/22 Unknown History Active Medications: Generic Name Dose Route Start Last Admin Trade Name Freq PRN Reason Stop Dose Admin Acetaminophen 650 mg 07/07/22 12:09 Acetaminophen [address] Q6H PRN Pain MILD(1-3)/Fever >100.5/LEE Atorvastatin Calcium 80 mg 07/08/22 22:00 Atorvastatin 40 Mg Tab PO QHS ERROL Cholecalciferol 1,000 unit 07/08/22 10:00 07/08/22 10:19 Cholecalciferol (Vit D3) 1000 Unit (25 Mcg) Tab PO 1,000 unit QDAY ERROL Administration Dexamethasone 6 mg 07/08/22 10:00 07/08/22 10:18 Dexamethasone 4 Mg/Ml Vial IV 07/17/22 10:01 6 mg Q24HR ERROL Administration Famotidine 20 mg 07/07/22 10:00 07/08/22 10:18 Famotidine 20 Mg/2 Ml Inj IV 20 mg BID ERROL Administration Heparin Sodium (Porcine) 5,000 unit 07/08/22 06:00 07/08/22 05:38 Heparin 5,000 Unit/1 Ml Vial SUB-Q 5,000 unit Q12H ERROL Administration Hydrophilic Ointment 1 applic 07/07/22 02:48 Lip Therapy Vaseline TP Q2HR PRN Dry Lips Remdesivir 100 mg/ Sodium 250 mls @ 500 mls/hr 07/08/22 14:00 Chloride IV 07/11/22 14:29 Q24HR@1400 ERROL Azithromycin 500 mg in 250 mls @ 250 mls/hr 07/07/22 17:00 07/07/22 17:36 Zithromax/Ns IV Infused Q24H ERROL Infusion Dextrose/Sodium Chloride 1,000 mls @ 100 mls/hr 07/07/22 17:00 07/08/22 02:00 D5/0.45ns IV 100 mls/hr DIRECT ERROL Administration Ceftriaxone Sodium 2 gm in 100 mls @ 200 mls/hr 07/08/22 17:00 Rocephin/Ns 2 Gm/100 Ml IV Q24H ERROL Protocol Levothyroxine Sodium 75 mcg 07/08/22 10:00 07/08/22 10:19 Levothyroxine 75 Mcg Tab PO 75 mcg QAM ERROL Administration Multi-Ingred Cream/Lotion/Oil/Oint 1 applic 07/07/22 02:48 Mineral Oil/Petrolatum, White Ophth Oint 3.5 Gm OU Q4HR PRN Dry Eye(s) Senna/Docusate Sodium 1 tab 07/07/22 10:00 07/08/22 10:19 Sennosides/Docusate Sodium 8.6/50 Mg Tab FEEDTUBE 1 tab BID ERROL Administration Sodium Chloride 10 ml 07/07/22 13:00 07/08/22 10:19 Sodium Chloride 0.9% 10 Ml Flush Syringe IV 10 ml BID ERROL Administration Sodium Chloride 10 ml 07/07/22 12:09 Sodium Chloride 0.9% 10 Ml Flush Syringe IV PRN PRN LINE FLUSH Sodium Chloride 50 ml 07/08/22 14:00 Sodium Chloride 0.9% 50 Ml Ivpb IV 07/12/22 14:01 Q24HR@1400 ERROL Valproic Acid 250 mg 07/08/22 09:00 07/08/22 10:18 Valproic Acid 250 Mg/5 Ml Oral Liqd PO 250 mg Q12H ERROL Administration
[2022-07-08] MEDS: SODIUM CHLORIDE 0.9% 50 ML IVPB IV SCH (14:34)
[2022-07-08] MEDS: REMDESIVIR 100 MG in SODIUM CHLORIDE 0.9% 250ML 250 ML IV SCH (14:34)
[2022-07-08 15:38] LABS: Basophils % (Auto) 0.1 % (0.0-1.8); Hematocrit 41.2 % (30.3-42.9); Hemoglobin 13.6 gm/dl (10.1-14.3); Lymphocytes # (Auto) 1.7 K/mm3 (1.2-5.4); Lymphocytes % (Auto) 15.2 % (13.4-35.0); Mean Corpuscular HGB Conc 33 % (30-34); Mean Corpuscular Volume 101 fl (79-97); Monocytes # (Auto) 0.3 K/mm3 (0.0-0.8); Monocytes % (Auto) 2.7 % (0.0-7.3); Red Blood Count 4.09 M/mm3 (3.65-5.03); Red Cell Distribution Width 14.9 % (13.2-15.2)
[2022-07-08 15:40] LABS: Platelet Count 69 K/mm3 (140-440)
--- NOTE | 2022-07-08 16:05 | Progress Note ---
Assessment and Plan Assessment and plan: This is a 76-year-old female with CVA, pulmonary embolism, hypothyroidism and JUJU admitted with electrolyte imbalances, hypoxic respiratory failure and COVID- 19 pneumonia Neuro: Acute metabolic encephalopathy, h/o CVA with hemiplegia, dysphagia, aphasia, dementia -Reorientation as needed -Maintain sleep-wake cycle -Resume home Lipitor -As needed analgesia -CT head shows no acute intracranial hemorrhage, multiple chronic appearing infarcts including left MCA distribution, left cerebral hemisphere and within the right basal ganglia -Depakene Cardiac: h/o HLD -Resume home Lipitor -Blood pressure monitoring per protocol Respiratory: Acute hypoxic respiratory failure, h/o JUJU, pulmonary embolism -CCM consulted, appreciate recommendations -Intubated on 07/07 with a 7.50 ETT at 24 the lips -A.m. vent settings: Assist-control, rate 16, tidal volume 400, PEEP 6, FiO2 40% -See RT notes for titration -A.m. ABG and CXR noted -VAP bundle -SPO2 monitoring GI: NAD -24 hours +115 ml -PPI -NTR consulted for tube feedings -BR: Senokot-S : Hypernatremia, hypokalemia, rhabdomyolysis -Nephrology consulted, appreciate recommendations -Monitor intake and output -D5 half-normal saline 100/h -Free water flush -BMP every 6 per nephrology -Renally dose medications -Avoid nephrotoxic medications -IVF with KCL, D5 -Replete potassium -Trend BMP ID: COVID-19 pneumonia, lactic acidosis -Infectious disease consulted, appreciate recommendation -Antibiotic therapy with Rocephin and Zithromax -Remdesivir for 5 days -Dexamethasone for 10 days -Procalcitonin and CRP pending -Contact/droplet precautions -f/u blood culture -Trend COVID-19 inflammatory markers -Monitor WBC and temperature curve -Prophylactic anticoagulation based on D-dimer per hospital protocol Endo: h/o hypothyroidism -Avoid hypoglycemia -SSI -Accu-Cheks q. 6 -Long-acting insulin, titrate as needed -Resume home Synthroid Heme: Leukocytosis -Trend CBC -Transfuse hemoglobin less than 7 -SCDs to BLE while in bed The high probability of a clinically significant, sudden or life threatening deterioration of the [multi] system(s) required my full and direct attention, intervention and personal management. The aggregate critical care time was [60] minutes. This time is in addition to time spent performing reported procedures but includes the following: [x] Data Review and interpretation [x] Patient assessment and monitoring of vital signs [x] Documentation [x] Medication orders and management Disposition Plan: icu Total Time Spent with Patient (Minutes): 60 History Interval history: This is a 76-year-old female with CVA resulting hemiplegia, dysphagia, aphasia, dementia, pulm embolism without acute cor pulmonale, hypothyroidism and JUJU who presented to the hospital on 07/07 from her senior care for altered mental status and diminished cognition and possible hypoxia via EMS. In the emergency department patient was intubated due to concern for airway protection. Recommend emergency department showed leukocytosis, hyponatremia with a sodium of 168, hypercalcemia, hypomagnesemia, elevated CK. Patient was admitted to the hospitalist service with acute hypoxic respiratory failure, COVID-19 PUI, hypernatremia, transaminitis, rhabdomyolysis with consults to CCM and nephrology: Hospital course to date: 07/08: Patient noted to be COVID-positive, started on remdesivir, Decadron, ceftriaxone azithromycin and infectious disease was consulted yesterday. This morning patient is on any sedation, PICC line to be placed. RT to attempt PSV. Started on free water flushes and tube feedings. Continues on D5 half-normal saline. Hospitalist Physical - Constitutional Vitals: Temp Pulse Resp BP Pulse Ox 97.5 F L 82 16 91/64 99 07/08/22 11:46 07/08/22 15:30 07/08/22 15:30 07/08/22 15:30 07/08/22 15:30 General appearance: Present: other (intuavted) - EENT Eyes: Present: PERRL, EOM intact ENT: dentition normal - Neck Neck: Absent: masses or JVD, cervical LAD - Respiratory Respiratory: bilateral: diminished - Cardiovascular Rhythm: regular Heart Sounds: Present: S1 & S2. Absent: systolic murmur, diastolic murmur - Extremities Extremities: no ischemia, pulses intact, pulses symmetrical, normal temperature, normal color Peripheral Pulses: within normal limits - Abdominal General gastrointestinal: soft, non-tender, normal bowel sounds - Integumentary Integumentary: Present: warm, dry - Psychiatric Psychiatric: other - Neurologic Neurologic: no focal deficits - Allied Health Allied health notes reviewed: nursing, social work HEART Score - HEART Score Troponin: Troponin T 0.010 ng/mL (0.00-0.029) 07/07/22 04:17 Results - Labs CBC & Chem 7: 07/08/22 14:54 07/08/22 14:54 Labs: Laboratory Last Values WBC 11.1 K/mm3 (4.5-11.0) H 07/08/22 14:54 RBC 4.09 M/mm3 (3.65-5.03) 07/08/22 14:54 Hgb 13.6 gm/dl (10.1-14.3) D 07/08/22 14:54 Hct 41.2 % (30.3-42.9) D 07/08/22 14:54 MCV 101 fl (79-97) H 07/08/22 14:54 MCH 33 pg (28-32) H 07/08/22 14:54 MCHC 33 % (30-34) 07/08/22 14:54 RDW 14.9 % (13.2-15.2) 07/08/22 14:54 Plt Count 69 K/mm3 (140-440) L 07/08/22 14:54 Lymph % (Auto) 15.2 % (13.4-35.0) 07/08/22 14:54 [place] % (Auto) 2.7 % (0.0-7.3) 07/08/22 14:54 Eos % (Auto) 0.0 % (0.0-4.3) 07/08/22 14:54 Baso % (Auto) 0.1 % (0.0-1.8) 07/08/22 14:54 Lymph # (Auto) 1.7 K/mm3 (1.2-5.4) 07/08/22 14:54 [place] # (Auto) 0.3 K/mm3 (0.0-0.8) 07/08/22 14:54 Eos # (Auto) 0.0 K/mm3 (0.0-0.4) 07/08/22 14:54 Baso # (Auto) 0.0 K/mm3 (0.0-0.1) 07/08/22 14:54 Seg Neutrophils % 82.0 % (40.0-70.0) H 07/08/22 14:54 Seg Neutrophils # 9.1 K/mm3 (1.8-7.7) H 07/08/22 14:54 PT 15.0 Sec. (12.2-14.9) H 07/07/22 03:38 INR 1.06 (0.87-1.13) 07/07/22 03:38 APTT 23.0 Sec. (24.2-36.6) L 07/07/22 03:38 D-Dimer 499.72 ng/mlDDU (0-234) H 07/08/22 14:54 ABG pH 7.473 pH Units (7.350-7.450) H 07/08/22 05:30 ABG pCO2 32.4 mm Hg 07/08/22 05:30 ABG pO2 121.7 mm Hg (80.0-90.0) H 07/08/22 05:30 ABG HCO3 23.2 mmol/L (20.0-26.0) 07/08/22 05:30 ABG O2 Saturation 98.5 % (95.0-99.0) 07/08/22 05:30 ABG O2 Content 20.3 (0.0-44) 07/08/22 05:30 ABG Base Excess 0.4 mmol/L (-2.0-3.0) 07/08/22 05:30 ABG Hemoglobin 14.7 gm/dl (12.0-16.0) 07/08/22 05:30 ABG Carboxyhemoglobin 0.8 % (0.0-5.0) 07/08/22 05:30 ABG Methemoglobin 0.7 % (0.0-1.5) 07/08/22 05:30 Oxyhemoglobin 97.0 % (95.0-99.0) 07/08/22 05:30 FiO2 40 % 07/08/22 05:30 Sodium 163 mmol/L (137-145) H* 07/07/22 Unknown Potassium 6.3 mmol/L (3.6-5.0) H* D 07/07/22 Unknown Chloride 123.7 mmol/L (98-107) H 07/07/22 Unknown Carbon Dioxide 22 mmol/L (22-30) 07/07/22 Unknown Anion Gap 25 mmol/L 07/07/22 Unknown BUN 42 mg/dL (7-17) H 07/07/22 Unknown Creatinine 1.1 mg/dL (0.6-1.2) 07/07/22 Unknown Estimated GFR 59 ml/min 07/07/22 Unknown BUN/Creatinine Ratio 38 % 07/07/22 Unknown Glucose 169 mg/dL (65-100) H 07/07/22 Unknown POC Glucose 148 mg/dL (70-105) H 07/08/22 11:21 Lactic Acid 5.60 mmol/L (0.7-2.0) H* 07/07/22 23:42 Uric Acid 13.5 mg/dL (3.5-7.6) H 07/07/22 04:17 Calcium 9.7 mg/dL (8.4-10.2) 07/07/22 Unknown Magnesium 3.30 mg/dL (1.7-2.3) H 07/07/22 03:38 Total Bilirubin 0.80 mg/dL (0.1-1.2) 07/07/22 16:00 AST 81 units/L (5-40) H 07/07/22 16:00 ALT 39 units/L (7-56) 07/07/22 16:00 Alkaline Phosphatase 87 units/L (35-129) 07/07/22 16:00 Ammonia 32.0 umol/L (25-60) 07/07/22 04:17 Total Creatine Kinase 1826 units/L (30-135) H 07/07/22 03:38 Troponin T 0.010 ng/mL (0.00-0.029) 07/07/22 04:17 Total Protein 7.3 g/dL (6.3-8.2) 07/07/22 16:00 Albumin 4.0 g/dL (3.9-5) 07/07/22 16:00 Albumin/Globulin Ratio 1.2 % 07/07/22 16:00 TSH 12.790 mlU/mL (0.270-4.200) H 07/07/22 04:17 Free T4 0.78 ng/dL (0.76-1.46) 07/07/22 04:17 Urine Color Yellow (Yellow) 07/07/22 03:17 Urine Turbidity Slightly cloudy (Clear) 07/07/22 03:17 Specific [place] (Man) 1.015 (1.003-1.030) 07/07/22 03:17 Ur Protein (Man) 1+ mg/dL (Negative) 07/07/22 03:17 Ur Ketones (Man) Negative (Negative) 07/07/22 03:17 Ur Nitrite (Man) Negative (Negative) 07/07/22 03:17 Urine Bilirubin (Man) Negative (Negative) 07/07/22 03:17 Leukocyte Esterase (Man) Negative (Negative) 07/07/22 03:17 Urine WBC (Auto) 7.0 /HPF (0.0-6.0) H 07/07/22 03:17 Urine RBC (Auto) 1.0 /HPF (0.0-6.0) 07/07/22 03:17 U Epithel Cells (Auto) 4.0 /HPF (0-13.0) 07/07/22 03:17 Urine Bacteria (Auto) 3+ /HPF (Negative) 07/07/22 03:17 Urine RBC (Manual) 3+ (Negative) 07/07/22 03:17 Urine Mucus 3+ /HPF 07/07/22 03:17 Urine Osmolality 744 Mosm/kg 07/07/22 16:45 Urine Creatinine 92.9 mg/dL (0.1-20.0) H 07/07/22 16:45 Urine Sodium 109 mmol/L 07/07/22 16:45 Salicylates < 0.3 mg/dL (2.8-20.0) L 07/07/22 03:38 Urine Opiates Screen Presumptive negative 07/07/22 03:17 Urine Methadone Screen Presumptive negative 07/07/22 03:17 Acetaminophen 5.0 ug/mL (10.0-30.0) L 07/07/22 03:38 Ur Barbiturates Screen Presumptive negative 07/07/22 03:17 Valproic Acid 7.0 ug/mL (50-100) L 07/07/22 03:38 Ur Phencyclidine Scrn Presumptive negative 07/07/22 03:17 Ur Amphetamines Screen Presumptive negative 07/07/22 03:17 U Benzodiazepines Scrn Presumptive negative 07/07/22 03:17 Urine Cocaine Screen Presumptive negative 07/07/22 03:17 U Marijuana (THC) Screen Presumptive negative 07/07/22 03:17 Drugs of Abuse Note Disclamer 07/07/22 03:17 Plasma/Serum Alcohol < 0.01 % (0-0.07) 07/07/22 03:38 SARS-CoV-2 (PCR) Positive (Negative) A 07/07/22 15:00 Microbiology: Microbiology 07/07/22 03:38 Peripheral/Venous Blood Culture - Preliminary NO GROWTH AFTER 24 HOURS 07/07/22 03:45 Peripheral/Venous Blood Culture - Preliminary NO GROWTH AFTER 24 HOURS 07/07/22 Unknown Tracheal Aspirate Sputum Culture - Preliminary [place]/IV: Voiding Method Indwelling Catheter Active Medications - Current Medications Current Medications: Generic Name Dose Route Start Last Admin Trade Name Freq PRN Reason Stop Dose Admin Acetaminophen 650 mg 07/07/22 12:09 Acetaminophen 650 Mg Rect Supp HI Q6H PRN Pain MILD(1-3)/Fever >100.5/LEE Atorvastatin Calcium 80 mg 07/08/22 22:00 Atorvastatin 40 Mg Tab PO QHS ERROL Cholecalciferol 1,000 unit 07/08/22 10:00 07/08/22 10:19 Cholecalciferol (Vit D3) 1000 Unit (25 Mcg) Tab PO 1,000 unit QDAY ERROL Administration Dexamethasone 6 mg 07/08/22 10:00 07/08/22 10:18 Dexamethasone 4 Mg/Ml Vial IV 07/17/22 10:01 6 mg Q24HR ERROL Administration Famotidine 20 mg 07/07/22 10:00 07/08/22 10:18 Famotidine 20 Mg/2 Ml Inj IV 20 mg BID ERROL Administration Heparin Sodium (Porcine) 5,000 unit 07/08/22 06:00 07/08/22 05:38 Heparin 5,000 Unit/1 Ml Vial SUB-Q 5,000 unit Q12H ERROL Administration Hydrophilic Ointment 1 applic 07/07/22 02:48 Lip Therapy Vaseline TP Q2HR PRN Dry Lips Remdesivir 100 mg/ Sodium 250 mls @ 500 mls/hr 07/08/22 14:00 07/08/22 15:04 Chloride IV 07/11/22 14:29 Infused Q24HR@1400 ERROL Infusion Azithromycin 500 mg in 250 mls @ 250 mls/hr 07/07/22 17:00 07/07/22 17:36 Zithromax/Ns IV Infused Q24H ERROL Infusion Dextrose/Sodium Chloride 1,000 mls @ 100 mls/hr 07/07/22 17:00 07/08/22 02:00 D5/0.45ns IV 100 mls/hr DIRECT ERROL Administration Ceftriaxone Sodium 2 gm in 100 mls @ 200 mls/hr 07/08/22 17:00 Rocephin/Ns 2 Gm/100 Ml IV Q24H ERROL Protocol Levothyroxine Sodium 75 mcg 07/08/22 10:00 07/08/22 10:19 Levothyroxine 75 Mcg Tab PO 75 mcg QAM ERROL Administration Multi-Ingred Cream/Lotion/Oil/Oint 1 applic 07/07/22 02:48 Mineral Oil/Petrolatum, White Ophth Oint 3.5 Gm OU Q4HR PRN Dry Eye(s) Senna/Docusate Sodium 1 tab 07/07/22 10:00 07/08/22 10:19 Sennosides/Docusate Sodium 8.6/50 Mg Tab FEEDTUBE 1 tab BID ERROL Administration Sodium Chloride 10 ml 07/07/22 13:00 07/08/22 10:19 Sodium Chloride 0.9% 10 Ml Flush Syringe IV 10 ml BID ERROL Administration Sodium Chloride 10 ml 07/07/22 12:09 Sodium Chloride 0.9% 10 Ml Flush Syringe IV PRN PRN LINE FLUSH Sodium Chloride 50 ml 07/08/22 14:00 07/08/22 14:34 Sodium Chloride 0.9% 50 Ml Ivpb IV 07/12/22 14:01 50 ml Q24HR@1400 ERROL Administration Valproic Acid 250 mg 07/08/22 09:00 07/08/22 10:18 Valproic Acid 250 Mg/5 Ml Oral Liqd PO 250 mg Q12H ERROL Administration Nutrition/Malnutrition Assess - Dietary Evaluation Nutrition/Malnutrition Findings: Nutrition Notes Start: 07/07/22 13:24 Freq: Status: Active Protocol: Document 07/08/22 14:28 CARI (Rec: 07/08/22 14:39 CARI [id number]) Nutrition Notes Need for Assessment generated from: MD 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 Pt remains intubated. Burn Absent Trauma Absent Minimum of two criteria No Fluid Accumulation Mild (non-severe) #1 Nutrition Diagnosis Inadequate oral intake Diagnosis Progress(for reassessment Continues documentation) Is patient on ventilator? Yes Is Patient Ambulatory and/or Out of Bed No REE-([place]-confined to bed) 1763.208 Kcal/Kg value to use for calculation 15 Approximate Energy Requirements Using 1429 kcal/Kg Calculation Used for Recommendations Kcal/kg Additional Notes Pro needs 1.3g/kg adjBW: 100g/ day Fluid needs per MD. Nutrition Intervention Nutrition Support: Nepro at 33ml/hr with 300ml water flush q4h. Kcal 1,426 Protein (gm) 64 Carbohydrates (gm) 128 Fat (gm) 76 Fluid (mL) 576 Fiber (gm) 10 Goal #1 TF tolerance Goal #2 TF to meet 70-80% energy and pro needs as best possible Follow-Up By: 07/10/22 Additional Comments F/U: new TF, vent status, Na and K labs, water flushes
[2022-07-08 16:19] LABS: Alanine Aminotransferase 29 units/L (7-56); Albumin 3.1 g/dL (3.9-5); BUN/Creatinine Ratio 33; Blood Urea Nitrogen 30 mg/dL (7-17); Calcium 9.1 mg/dL (8.4-10.2); Hemolysis Index 26
[2022-07-08 16:20] LABS: C-Reactive Protein 1.6 mg/dL (0.00-1.30)
[2022-07-08] MEDS: AZITHROMYCIN/NS 500 MG/250 ML 500 MG/250 ML BAG IV SCH (17:04)
[2022-07-08] MEDS: cefTRIAXone/NS 2 GM/100 ML 2 GM/100 ML BAG IV SCH (17:04)
[2022-07-08] MEDS: POTASSIUM CHLORIDE 20 MEQ PACKET FEEDTUBE SCH ×2 (17:04→21:38)
[2022-07-08] MEDS: WATER IV SCH (18:27)
[2022-07-08] MEDS: DEXTROSE 5% IV SCH (18:27)
[2022-07-08] MEDS: POTASSIUM CHLORIDE 10 MEQ 10 MEQ/100 ML BAG IV SCH ×2 (18:27→20:22)
[2022-07-08] MEDS: POTASSIUM CHLORIDE IV SCH (18:27)
[2022-07-08 20:26] LABS: BUN/Creatinine Ratio 31; Blood Urea Nitrogen 28 mg/dL (7-17); Calcium 9.1 mg/dL (8.4-10.2); Hemolysis Index 97
[2022-07-09 01:31] LABS: BUN/Creatinine Ratio 28; Blood Urea Nitrogen 25 mg/dL (7-17); Calcium 8.6 mg/dL (8.4-10.2); Hemolysis Index 18
[2022-07-09] MEDS: FREE WATER PO SCH ×6 (01:36→22:13)
[2022-07-09] MEDS: POTASSIUM CHLORIDE 20 MEQ PACKET FEEDTUBE SCH (02:36)
[2022-07-09 04:05] LABS: Alanine Aminotransferase 44 units/L (7-56); Albumin 2.8 g/dL (3.9-5); Blood Urea Nitrogen 24 mg/dL (7-17); Calcium 8.5 mg/dL (8.4-10.2); Hemolysis Index 11
[2022-07-09 04:06] LABS: BUN/Creatinine Ratio 34
[2022-07-09] MEDS: DEXTROSE 5% IV SCH (04:34)
[2022-07-09] MEDS: POTASSIUM CHLORIDE IV SCH (04:34)
[2022-07-09] MEDS: WATER IV SCH (04:34)
[2022-07-09] MEDS ORDERED: SODIUM CHLORIDE 0.9% 500 ML 500 ML ONE (04:37)
--- NOTE | 2022-07-09 04:53 | XRay Report ---
CHEST 1 VIEW INDICATION / CLINICAL INFORMATION: follow up respiratory failure. Dyspnea FINDINGS: SUPPORT DEVICES: No significant change in position. HEART / MEDIASTINUM: The cardiomediastinal silhouette has not significantly changed in the interim. LUNGS / PLEURA: Slight improvement in bibasilar opacities when compared to yesterday's exam. Signer Name: Alexis Resendiz MD Signed: 07/09/2022 4:49 AM Workstation Name: [id number]
[2022-07-09 05:11] LABS: ABG Base Excess -2.8 mmol/L (-2.0-3.0); ABG Methemoglobin 0.8 % (0.0-1.5); ABG Oxygen Saturation 99.1 % (95.0-99.0); ABG PCO2 33.6 mm Hg; ABG PH 7.413 pH Units (7.350-7.450); ABG PO2 172.1 mm Hg (80.0-90.0)
[2022-07-09] MEDS: HEPARIN 5,000 UNIT/1 ML VIAL SUB-Q SCH ×2 (05:40→17:42)
--- NOTE | 2022-07-09 09:19 | Progress Note ---
Assessment and Plan Acute hypoxic respiratory failure Coronavirus infection Acute metabolic encephalopathy Chronic CVA Hypernatremia Hypokalemia now hyperkalemic Transaminitis Rhabdomyolysis Plan: -Na is imporving -will change IVF to D5W 100 cc/h -Target sodium decrease is around 8-10 meq/24 hours -Monitor potassium levels -BMP every 6 hours -Strict I/O's daily -Obtain daily weights Subjective Date of service: 07/09/22 Principal diagnosis: Hypernatremia Interval history: remains in ICU, sodium is trending down Objective - Vital Signs Vital signs: Vital Signs - 12hr 07/08/22 07/08/22 07/08/22 21:20 21:30 21:40 Temperature Pulse Rate 99 H 97 H 93 H Pulse Rate [ From Monitor] Respiratory 15 14 16 Rate Blood Pressure 92/58 92/58 92/58 O2 Sat by Pulse 98 98 95 Oximetry 07/08/22 07/08/22 07/08/22 21:50 22:00 22:10 Temperature Pulse Rate 93 H 95 H 93 H Pulse Rate [ From Monitor] Respiratory 14 16 17 Rate Blood Pressure 92/58 102/69 102/69 O2 Sat by Pulse 100 100 100 Oximetry 07/08/22 07/08/22 07/08/22 22:20 22:30 22:40 Temperature Pulse Rate 96 H 96 H 96 H Pulse Rate [ From Monitor] Respiratory 13 14 16 Rate Blood Pressure 102/69 102/69 102/69 O2 Sat by Pulse 99 100 99 Oximetry 07/08/22 07/08/22 07/08/22 22:50 23:00 23:10 Temperature Pulse Rate 98 H 97 H 98 H Pulse Rate [ From Monitor] Respiratory 19 17 14 Rate Blood Pressure 102/69 99/61 99/61 O2 Sat by Pulse 97 99 98 Oximetry 07/08/22 07/08/22 07/08/22 23:20 23:30 23:40 Temperature Pulse Rate 98 H 97 H 88 Pulse Rate [ From Monitor] Respiratory 15 16 16 Rate Blood Pressure 99/61 99/61 99/61 O2 Sat by Pulse 99 98 99 Oximetry 07/08/22 07/08/22 07/08/22 23:45 23:49 23:50 Temperature Pulse Rate 87 86 Pulse Rate [ From Monitor] Respiratory 16 16 Rate Blood Pressure 99/61 O2 Sat by Pulse 100 100 Oximetry 08/07/09/22 07/09/22 00:00 00:06 00:10 Temperature Pulse Rate 87 90 101 H Pulse Rate [ From Monitor] Respiratory 16 16 11 L Rate Blood Pressure 89/58 89/58 89/58 O2 Sat by Pulse 100 100 100 Oximetry 07/09/22 07/09/22 07/09/22 00:12 00:20 00:22 Temperature 97.7 F Pulse Rate 107 H 102 H Pulse Rate [ From Monitor] Respiratory 16 Rate Blood Pressure 89/58 89/58 O2 Sat by Pulse 99 100 Oximetry 07/09/22 07/09/22 07/09/22 00:30 00:40 00:50 Temperature Pulse Rate 103 H 105 H 103 H Pulse Rate [ From Monitor] Respiratory 15 17 14 Rate Blood Pressure 89/58 89/58 89/58 O2 Sat by Pulse 100 99 100 Oximetry 07/09/22 07/09/22 07/09/22 01:00 01:10 01:20 Temperature Pulse Rate 88 91 H 88 Pulse Rate [ From Monitor] Respiratory 16 16 16 Rate Blood Pressure 89/58 93/60 93/60 O2 Sat by Pulse 100 99 98 Oximetry 07/09/22 07/09/22 07/09/22 01:30 01:40 01:50 Temperature Pulse Rate 89 93 H 90 Pulse Rate [ From Monitor] Respiratory 16 16 16 Rate Blood Pressure 93/60 93/60 93/60 O2 Sat by Pulse 97 100 99 Oximetry 07/09/22 07/09/22 07/09/22 02:00 02:10 02:20 Temperature Pulse Rate 88 98 H 86 Pulse Rate [ From Monitor] Respiratory 16 15 16 Rate Blood Pressure 92/60 92/60 92/60 O2 Sat by Pulse 98 100 98 Oximetry 07/09/22 07/09/22 07/09/22 02:30 02:40 02:50 Temperature Pulse Rate 87 100 H 95 H Pulse Rate [ From Monitor] Respiratory 16 16 16 Rate Blood Pressure 92/60 92/60 92/60 O2 Sat by Pulse 98 100 99 Oximetry 07/09/22 07/09/22 07/09/22 03:00 03:10 03:20 Temperature Pulse Rate 104 H 108 H 112 H Pulse Rate [ From Monitor] Respiratory 16 15 17 Rate Blood Pressure 96/62 96/62 96/62 O2 Sat by Pulse 100 99 99 Oximetry 08/07/09/22 07/09/22 03:30 03:40 03:50 Temperature Pulse Rate 98 H 93 H 93 H Pulse Rate [ From Monitor] Respiratory 16 16 16 Rate Blood Pressure 96/62 96/62 96/62 O2 Sat by Pulse 100 98 99 Oximetry 07/09/22 07/09/22 07/09/22 04:00 04:10 04:20 Temperature Pulse Rate 90 101 H 93 H Pulse Rate [ From Monitor] Respiratory 16 17 16 Rate Blood Pressure 85/61 85/61 85/61 O2 Sat by Pulse 100 99 100 Oximetry 07/09/22 07/09/22 07/09/22 04:30 04:40 04:44 Temperature 97.7 F Pulse Rate 97 H 87 99 H Pulse Rate [ From Monitor] Respiratory 16 14 Rate Blood Pressure 85/61 89/55 O2 Sat by Pulse 99 100 Oximetry 07/09/22 07/09/22 07/09/22 04:50 05:00 05:10 Temperature Pulse Rate 91 H 87 89 Pulse Rate [ From Monitor] Respiratory 13 11 L 16 Rate Blood Pressure 85/61 86/55 86/55 O2 Sat by Pulse 100 99 100 Oximetry 07/09/22 07/09/22 07/09/22 05:20 05:28 05:30 Temperature Pulse Rate 91 H 86 Pulse Rate [ From Monitor] Respiratory 16 16 Rate Blood Pressure 86/55 86/55 O2 Sat by Pulse 100 100 100 Oximetry 07/09/22 07/09/22 07/09/22 05:40 05:50 06:00 Temperature Pulse Rate 85 84 91 H Pulse Rate [ From Monitor] Respiratory 16 16 13 Rate Blood Pressure 86/55 86/55 90/59 O2 Sat by Pulse 100 100 100 Oximetry 07/09/22 07/09/22 07/09/22 06:10 06:20 06:30 Temperature Pulse Rate 82 79 81 Pulse Rate [ From Monitor] Respiratory 12 12 12 Rate Blood Pressure 90/59 90/59 90/59 O2 Sat by Pulse 99 99 100 Oximetry 07/09/22 07/09/22 07/09/22 06:40 06:50 07:00 Temperature Pulse Rate 79 82 91 H Pulse Rate [ From Monitor] Respiratory 12 12 15 Rate Blood Pressure 90/59 90/59 96/59 O2 Sat by Pulse 98 98 100 Oximetry 07/09/22 07/09/22 07/09/22 07:10 07:20 07:25 Temperature 97.5 F L Pulse Rate 81 82 Pulse Rate [ From Monitor] Respiratory 12 12 Rate Blood Pressure 96/59 96/59 O2 Sat by Pulse 99 98 Oximetry 07/09/22 07/09/22 07/09/22 07:30 07:40 07:50 Temperature Pulse Rate 81 82 80 Pulse Rate [ From Monitor] Respiratory 12 10 L 12 Rate Blood Pressure 96/59 96/59 96/59 O2 Sat by Pulse 98 98 99 Oximetry 07/09/22 07/09/22 07/09/22 08:00 08:10 08:36 Temperature Pulse Rate 92 H 82 90 Pulse Rate [ 87 From Monitor] Respiratory 12 11 L Rate Blood Pressure 91/63 91/63 91/63 O2 Sat by Pulse 100 99 100 Oximetry - Lab 07/08/22 14:54 07/09/22 03:21 Most recent lab results ABG pH 7.413 pH Units (7.350-7.450) 07/09/22 04:40 ABG pCO2 33.6 mm Hg 07/09/22 04:40 ABG pO2 172.1 mm Hg (80.0-90.0) H 07/09/22 04:40 ABG HCO3 21.0 mmol/L (20.0-26.0) 07/09/22 04:40 ABG O2 Saturation 99.1 % (95.0-99.0) H 07/09/22 04:40 Calcium 8.5 mg/dL (8.4-10.2) 07/09/22 03:21 Magnesium 3.30 mg/dL (1.7-2.3) H 07/07/22 03:38 Urine Creatinine 92.9 mg/dL (0.1-20.0) H 07/07/22 16:45 Urine Sodium 109 mmol/L 07/07/22 16:45 Medications & Allergies - Medications Allergies/Adverse Reactions: Allergies Penicillins Allergy (Verified 07/07/22 18:23) Unknown Home Medications: Home Medications Medication Instructions Recorded Confirmed Last Taken Type Apixaban [Eliquis] 5 mg PO BID 07/08/22 07/08/22 Unknown History AtorvaSTATin [Lipitor] 80 mg PO QHS 07/08/22 07/08/22 Unknown History Cholecalciferol Vit D3 [Vitamin D3 1,000 unit PO QDAY 07/08/22 07/08/22 Unknown History 1,000 UNIT TAB] Levothyroxine [Synthroid] 75 mcg PO QAM 07/08/22 07/08/22 Unknown History Melatonin [Melatonin 5MG TAB] 5 mg PO QHS 07/08/22 07/08/22 Unknown History Mirtazapine 7.5 mg PO QHS 07/08/22 07/08/22 Unknown History Omeprazole Magnesium [PriLOSEC Otc] 40 mg PO QDAY 07/08/22 07/08/22 Unknown History VALPROIC ACID Liq [DepaKENE Liq] 250 mg PO Q12H 07/08/22 07/08/22 Unknown History Active Medications: Generic Name Dose Route Start Last Admin Trade Name Freq PRN Reason Stop Dose Admin Acetaminophen 650 mg 07/07/22 12:09 Acetaminophen 650 Mg Rect Supp AL Q6H PRN Pain MILD(1-3)/Fever >100.5/LEE Atorvastatin Calcium 80 mg 07/08/22 22:00 07/08/22 21:38 Atorvastatin 40 Mg Tab PO 80 mg QHS ERROL Administration Cholecalciferol 1,000 unit 07/08/22 10:00 07/08/22 10:19 Cholecalciferol (Vit D3) 1000 Unit (25 Mcg) Tab PO 1,000 unit QDAY ERROL Administration Dexamethasone 6 mg 07/08/22 10:00 07/08/22 10:18 Dexamethasone 4 Mg/Ml Vial IV 07/17/22 10:01 6 mg Q24HR ERROL Administration Famotidine 20 mg 07/07/22 10:00 07/08/22 21:38 Famotidine 20 Mg/2 Ml Inj IV 20 mg BID ERROL Administration Heparin Sodium (Porcine) 5,000 unit 07/08/22 06:00 07/09/22 05:40 Heparin 5,000 Unit/1 Ml Vial SUB-Q 5,000 unit Q12H ERROL Administration Hydrophilic Ointment 1 applic 07/07/22 02:48 Lip Therapy Vaseline TP Q2HR PRN Dry Lips Remdesivir 100 mg/ Sodium 250 mls @ 500 mls/hr 07/08/22 14:00 07/08/22 15:04 Chloride IV 07/11/22 14:29 Infused Q24HR@1400 ERROL Infusion Azithromycin 500 mg in 250 mls @ 250 mls/hr 07/07/22 17:00 07/08/22 18:04 Zithromax/Ns IV Infused Q24H ERROL Infusion Ceftriaxone Sodium 2 gm in 100 mls @ 200 mls/hr 07/08/22 17:00 07/08/22 17:43 Rocephin/Ns 2 Gm/100 Ml IV Infused Q24H ERROL Infusion Protocol Dextrose 1,000 mls @ 100 mls/hr 07/09/22 10:00 D5w IV DIRECT ERROL Levothyroxine Sodium 75 mcg 07/08/22 10:00 07/08/22 10:19 Levothyroxine 75 Mcg Tab PO 75 mcg QAM ERROL Administration Multi-Ingred Cream/Lotion/Oil/Oint 1 applic 07/07/22 02:48 Mineral Oil/Petrolatum, White Ophth Oint 3.5 Gm OU Q4HR PRN Dry Eye(s) Senna/Docusate Sodium 1 tab 07/07/22 10:00 07/08/22 21:38 Sennosides/Docusate Sodium 8.6/50 Mg Tab FEEDTUBE 1 tab BID ERROL Administration Sodium Chloride 10 ml 07/07/22 13:00 07/08/22 21:38 Sodium Chloride 0.9% 10 Ml Flush Syringe IV 10 ml BID ERROL Administration Sodium Chloride 10 ml 07/07/22 12:09 Sodium Chloride 0.9% 10 Ml Flush Syringe IV PRN PRN LINE FLUSH Sodium Chloride 50 ml 07/08/22 14:00 07/08/22 14:34 Sodium Chloride 0.9% 50 Ml Ivpb IV 07/12/22 14:01 50 ml Q24HR@1400 ERROL Administration Valproic Acid 250 mg 07/08/22 09:00 07/08/22 21:37 Valproic Acid 250 Mg/5 Ml Oral Liqd PO 250 mg Q12H ERROL Administration
[2022-07-09] MEDS: SENNOSIDES/DOCUSATE SODIUM 8.6/50 MG TAB FEEDTUBE SCH ×2 (09:46→22:14)
[2022-07-09] MEDS: dexAMETHasone 4 MG/ML VIAL IV SCH (09:47)
[2022-07-09] MEDS: CHOLECALCIFEROL (VIT D3) 1000 UNIT (25 mcg) TAB PO SCH (09:47)
[2022-07-09] MEDS: FAMOTIDINE 20 MG/2 ML INJ IV SCH (09:47)
[2022-07-09] MEDS: LEVOTHYROXINE 75 MCG TAB PO SCH (09:47)
[2022-07-09] MEDS: VALPROIC ACID 250 MG/5 ML ORAL LIQD PO SCH ×2 (10:01→22:13)
--- NOTE | 2022-07-09 11:35 | Progress Note ---
Assessment and Plan 76 y/o female with acute respiratory failure secondary to altered mental status, most likely from electrolyte abnormalities seen on chemistry, found to be COVID positive. 07/09/22: Continue supportive measures. Continue to fix Na, if no improvement in mental state with normal sodium then will pursue MRI. Picc placed today. 07/08/22: No further sedation. 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 Consider neurology consult and may need to obtain MRI. Attempt PSV trials today. needs Picc line placed for usp access as patient is a difficult stick. Feed patient and monitor lytes. 1. Discontinue sedation 2. Wean FiO2 for sats >88% and PaO2 greater than 60 3. AGree with fluid resuscitation, patient needs free water 4. Will follow up with family to find out exactly what patient mental status was a facility CCT 31 minutes. Subjective Date of service: 07/09/22 Principal diagnosis: Hypernatremia Interval history: No acute events. Still unresponsive. Na is still elevated. Failed PSV trial immediately. Objective Vital Signs - 12hr 07/08/22 07/08/22 07/08/22 23:40 23:45 23:49 Temperature Pulse Rate 88 87 Pulse Rate [ From Monitor] Respiratory 16 16 Rate Blood Pressure 99/61 O2 Sat by Pulse 99 100 Oximetry 07/08/22 07/09/22 07/09/22 23:50 00:00 00:06 Temperature Pulse Rate 86 87 90 Pulse Rate [ From Monitor] Respiratory 16 16 16 Rate Blood Pressure 99/61 89/58 89/58 O2 Sat by Pulse 100 100 100 Oximetry 07/09/22 07/09/22 07/09/22 00:10 00:12 00:20 Temperature 97.7 F Pulse Rate 101 H 107 H Pulse Rate [ From Monitor] Respiratory 11 L 16 Rate Blood Pressure 89/58 89/58 O2 Sat by Pulse 100 99 Oximetry 07/09/22 07/09/22 07/09/22 00:22 00:30 00:40 Temperature Pulse Rate 102 H 103 H 105 H Pulse Rate [ From Monitor] Respiratory 15 17 Rate Blood Pressure 89/58 89/58 89/58 O2 Sat by Pulse 100 100 99 Oximetry 07/09/22 07/09/22 07/09/22 00:50 01:00 01:10 Temperature Pulse Rate 103 H 88 91 H Pulse Rate [ From Monitor] Respiratory 14 16 16 Rate Blood Pressure 89/58 89/58 93/60 O2 Sat by Pulse 100 100 99 Oximetry 07/09/22 07/09/22 07/09/22 01:20 01:30 01:40 Temperature Pulse Rate 88 89 93 H Pulse Rate [ From Monitor] Respiratory 16 16 16 Rate Blood Pressure 93/60 93/60 93/60 O2 Sat by Pulse 98 97 100 Oximetry 07/09/22 07/09/22 07/09/22 01:50 02:00 02:10 Temperature Pulse Rate 90 88 98 H Pulse Rate [ From Monitor] Respiratory 16 16 15 Rate Blood Pressure 93/60 92/60 92/60 O2 Sat by Pulse 99 98 100 Oximetry 07/09/22 07/09/22 07/09/22 02:20 02:30 02:40 Temperature Pulse Rate 86 87 100 H Pulse Rate [ From Monitor] Respiratory 16 16 16 Rate Blood Pressure 92/60 92/60 92/60 O2 Sat by Pulse 98 98 100 Oximetry 07/09/22 07/09/22 07/09/22 02:50 03:00 03:10 Temperature Pulse Rate 95 H 104 H 108 H Pulse Rate [ From Monitor] Respiratory 16 16 15 Rate Blood Pressure 92/60 96/62 96/62 O2 Sat by Pulse 99 100 99 Oximetry 07/09/22 07/09/22 07/09/22 03:20 03:30 03:40 Temperature Pulse Rate 112 H 98 H 93 H Pulse Rate [ From Monitor] Respiratory 17 16 16 Rate Blood Pressure 96/62 96/62 96/62 O2 Sat by Pulse 99 100 98 Oximetry 07/09/22 07/09/22 07/09/22 03:50 04:00 04:10 Temperature Pulse Rate 93 H 90 101 H Pulse Rate [ From Monitor] Respiratory 16 16 17 Rate Blood Pressure 96/62 85/61 85/61 O2 Sat by Pulse 99 100 99 Oximetry 07/09/22 07/09/22 07/09/22 04:20 04:30 04:40 Temperature Pulse Rate 93 H 97 H 87 Pulse Rate [ From Monitor] Respiratory 16 16 14 Rate Blood Pressure 85/61 85/61 89/55 O2 Sat by Pulse 100 99 100 Oximetry 07/09/22 07/09/22 07/09/22 04:44 04:50 05:00 Temperature 97.7 F Pulse Rate 99 H 91 H 87 Pulse Rate [ From Monitor] Respiratory 13 11 L Rate Blood Pressure 85/61 86/55 O2 Sat by Pulse 100 99 Oximetry 07/09/22 07/09/22 07/09/22 05:10 05:20 05:28 Temperature Pulse Rate 89 91 H Pulse Rate [ From Monitor] Respiratory 16 16 Rate Blood Pressure 86/55 86/55 O2 Sat by Pulse 100 100 100 Oximetry 07/09/22 07/09/22 07/09/22 05:30 05:40 05:50 Temperature Pulse Rate 86 85 84 Pulse Rate [ From Monitor] Respiratory 16 16 16 Rate Blood Pressure 86/55 86/55 86/55 O2 Sat by Pulse 100 100 100 Oximetry 07/09/22 07/09/22 07/09/22 06:00 06:10 06:20 Temperature Pulse Rate 91 H 82 79 Pulse Rate [ From Monitor] Respiratory 13 12 12 Rate Blood Pressure 90/59 90/59 90/59 O2 Sat by Pulse 100 99 99 Oximetry 07/09/22 07/09/22 07/09/22 06:30 06:40 06:50 Temperature Pulse Rate 81 79 82 Pulse Rate [ From Monitor] Respiratory 12 12 12 Rate Blood Pressure 90/59 90/59 90/59 O2 Sat by Pulse 100 98 98 Oximetry 07/09/22 07/09/22 07/09/22 07:00 07:10 07:20 Temperature Pulse Rate 91 H 81 82 Pulse Rate [ From Monitor] Respiratory 15 12 12 Rate Blood Pressure 96/59 96/59 96/59 O2 Sat by Pulse 100 99 98 Oximetry 07/09/22 07/09/22 07/09/22 07:25 07:30 07:40 Temperature 97.5 F L Pulse Rate 81 82 Pulse Rate [ From Monitor] Respiratory 12 10 L Rate Blood Pressure 96/59 96/59 O2 Sat by Pulse 98 98 Oximetry 07/09/22 07/09/22 07/09/22 07:50 08:00 08:10 Temperature Pulse Rate 80 92 H 82 Pulse Rate [ 87 From Monitor] Respiratory 12 12 11 L Rate Blood Pressure 96/59 91/63 91/63 O2 Sat by Pulse 99 100 99 Oximetry 07/09/22 07/09/22 07/09/22 08:30 08:36 08:40 Temperature Pulse Rate 80 90 Pulse Rate [ From Monitor] Respiratory 12 Rate Blood Pressure 91/63 91/63 O2 Sat by Pulse 99 100 100 Oximetry 07/09/22 07/09/22 07/09/22 09:00 09:30 10:00 Temperature Pulse Rate 87 81 83 Pulse Rate [ From Monitor] Respiratory 20 12 18 Rate Blood Pressure 92/70 91/63 94/64 O2 Sat by Pulse 100 100 100 Oximetry 07/09/22 07/09/22 10:30 11:00 Temperature 97.5 F L Pulse Rate 81 85 Pulse Rate [ From Monitor] Respiratory 12 15 Rate Blood Pressure 94/64 94/40 O2 Sat by Pulse 99 100 Oximetry CBC and BMP: 07/08/22 14:54 07/09/22 03:21 ABG, PT/INR, D-dimer: ABG ABG pH 7.413 pH Units (7.350-7.450) 07/09/22 04:40 ABG pCO2 33.6 mm Hg 07/09/22 04:40 ABG pO2 172.1 mm Hg (80.0-90.0) H 07/09/22 04:40 ABG O2 Saturation 99.1 % (95.0-99.0) H 07/09/22 04:40 PT/INR, D-dimer PT 15.0 Sec. (12.2-14.9) H 07/07/22 03:38 INR 1.06 (0.87-1.13) 07/07/22 03:38 D-Dimer 499.72 ng/mlDDU (0-234) H 07/08/22 14:54 Abnormal lab findings: Abnormal Labs 07/07/22 07/07/22 07/07/22 03:17 03:38 03:38 WBC RBC 5.43 H Hgb 18.2 H Hct 54.9 H MCV 101 H MCH 34 H Plt Count 104 L Seg Neutrophils % Seg Neutrophils # PT 15.0 H APTT 23.0 L D-Dimer ABG pH ABG pO2 ABG O2 Saturation ABG Base Excess ABG Hemoglobin Oxyhemoglobin Sodium Potassium Chloride Carbon Dioxide BUN Glucose POC Glucose Lactic Acid Uric Acid Calcium Magnesium Ferritin Total Bilirubin AST Lactate Dehydrogenase Total Creatine Kinase C-Reactive Protein Total Protein Albumin TSH Urine WBC (Auto) 7.0 H Urine Creatinine Salicylates Acetaminophen Valproic Acid SARS-CoV-2 (PCR) 07/07/22 07/07/22 07/07/22 03:38 03:38 03:38 WBC RBC Hgb Hct MCV MCH Plt Count Seg Neutrophils % Seg Neutrophils # PT APTT D-Dimer ABG pH ABG pO2 ABG O2 Saturation ABG Base Excess ABG Hemoglobin Oxyhemoglobin Sodium Potassium Chloride Carbon Dioxide BUN Glucose POC Glucose Lactic Acid Uric Acid Calcium Magnesium 3.30 H Ferritin Total Bilirubin AST Lactate Dehydrogenase Total Creatine Kinase 1826 H C-Reactive Protein Total Protein Albumin TSH Urine WBC (Auto) Urine Creatinine Salicylates < 0.3 L Acetaminophen 5.0 L Valproic Acid 7.0 L SARS-CoV-2 (PCR) 07/07/22 07/07/22 07/07/22 04:17 04:17 04:17 WBC RBC Hgb Hct MCV MCH Plt Count Seg Neutrophils % Seg Neutrophils # PT APTT D-Dimer ABG pH ABG pO2 ABG O2 Saturation ABG Base Excess ABG Hemoglobin Oxyhemoglobin Sodium 168 H* Potassium 3.2 L Chloride 122.2 H Carbon Dioxide BUN 52 H Glucose 158 H POC Glucose Lactic Acid 3.50 H* Uric Acid Calcium 10.9 H Magnesium Ferritin Total Bilirubin 1.40 H AST 47 H Lactate Dehydrogenase Total Creatine Kinase C-Reactive Protein Total Protein Albumin TSH 12.790 H Urine WBC (Auto) Urine Creatinine Salicylates Acetaminophen Valproic Acid SARS-CoV-2 (PCR) 07/07/22 07/07/22 07/07/22 04:17 07:43 09:35 WBC RBC Hgb Hct MCV MCH Plt Count Seg Neutrophils % Seg Neutrophils # PT APTT D-Dimer ABG pH ABG pO2 377.3 H ABG O2 Saturation 99.6 H ABG Base Excess -2.5 L ABG Hemoglobin Oxyhemoglobin Sodium Potassium Chloride Carbon Dioxide BUN Glucose POC Glucose Lactic Acid 6.30 H* Uric Acid 13.5 H Calcium Magnesium Ferritin Total Bilirubin AST Lactate Dehydrogenase Total Creatine Kinase C-Reactive Protein Total Protein Albumin TSH Urine WBC (Auto) Urine Creatinine Salicylates Acetaminophen Valproic Acid SARS-CoV-2 (PCR) 07/07/22 07/07/22 07/07/22 15:00 16:00 16:00 WBC RBC Hgb Hct MCV MCH Plt Count Seg Neutrophils % Seg Neutrophils # PT APTT D-Dimer ABG pH ABG pO2 ABG O2 Saturation ABG Base Excess ABG Hemoglobin Oxyhemoglobin Sodium 166 H* Potassium Chloride 124.8 H Carbon Dioxide 20 L BUN 41 H Glucose 157 H POC Glucose Lactic Acid 7.00 H* Uric Acid Calcium Magnesium Ferritin Total Bilirubin AST 81 H Lactate Dehydrogenase Total Creatine Kinase C-Reactive Protein Total Protein Albumin TSH Urine WBC (Auto) Urine Creatinine Salicylates Acetaminophen Valproic Acid SARS-CoV-2 (PCR) Positive A 07/07/22 07/07/22 07/07/22 16:45 23:42 23:42 WBC RBC Hgb Hct MCV MCH Plt Count Seg Neutrophils % Seg Neutrophils # PT APTT D-Dimer ABG pH ABG pO2 ABG O2 Saturation ABG Base Excess ABG Hemoglobin Oxyhemoglobin Sodium 165 H* Potassium 3.0 L Chloride 122.8 H Carbon Dioxide BUN 38 H Glucose 232 H POC Glucose Lactic Acid 5.60 H* Uric Acid Calcium Magnesium Ferritin Total Bilirubin AST Lactate Dehydrogenase Total Creatine Kinase C-Reactive Protein Total Protein Albumin TSH Urine WBC (Auto) Urine Creatinine 92.9 H Salicylates Acetaminophen Valproic Acid SARS-CoV-2 (PCR) 07/07/22 07/07/22 07/08/22 Unknown Unknown 05:30 WBC RBC Hgb Hct MCV MCH Plt Count Seg Neutrophils % Seg Neutrophils # PT APTT D-Dimer ABG pH 7.553 H 7.473 H ABG pO2 61.7 L 121.7 H ABG O2 Saturation 94.7 L ABG Base Excess 4.3 H ABG Hemoglobin 18.0 H Oxyhemoglobin 93.1 L Sodium 163 H* Potassium 6.3 H* D Chloride 123.7 H Carbon Dioxide BUN 42 H Glucose 169 H POC Glucose Lactic Acid Uric Acid Calcium Magnesium Ferritin Total Bilirubin AST Lactate Dehydrogenase Total Creatine Kinase C-Reactive Protein Total Protein Albumin TSH Urine WBC (Auto) Urine Creatinine Salicylates Acetaminophen Valproic Acid SARS-CoV-2 (PCR) 07/08/22 07/08/22 07/08/22 05:36 11:21 14:54 WBC 11.1 H RBC Hgb Hct MCV 101 H MCH 33 H Plt Count 69 L Seg Neutrophils % 82.0 H Seg Neutrophils # 9.1 H PT APTT D-Dimer ABG pH ABG pO2 ABG O2 Saturation ABG Base Excess ABG Hemoglobin Oxyhemoglobin Sodium Potassium Chloride Carbon Dioxide BUN Glucose POC Glucose 174 H 148 H Lactic Acid Uric Acid Calcium Magnesium Ferritin Total Bilirubin AST Lactate Dehydrogenase Total Creatine Kinase C-Reactive Protein Total Protein Albumin TSH Urine WBC (Auto) Urine Creatinine Salicylates Acetaminophen Valproic Acid SARS-CoV-2 (PCR) 07/08/22 07/08/22 07/08/22 14:54 14:54 14:54 WBC RBC Hgb Hct MCV MCH Plt Count Seg Neutrophils % Seg Neutrophils # PT APTT D-Dimer ABG pH ABG pO2 ABG O2 Saturation ABG Base Excess ABG Hemoglobin Oxyhemoglobin Sodium 163 H* Potassium 2.9 L* Chloride 123.7 H Carbon Dioxide BUN 30 H Glucose 161 H POC Glucose Lactic Acid 6.10 H* Uric Acid Calcium Magnesium Ferritin Total Bilirubin AST 69 H Lactate Dehydrogenase Total Creatine Kinase 2335 H C-Reactive Protein Total Protein 5.6 L D Albumin 3.1 L TSH Urine WBC (Auto) Urine Creatinine Salicylates Acetaminophen Valproic Acid SARS-CoV-2 (PCR) 07/08/22 07/08/22 07/08/22 14:54 14:54 14:54 WBC RBC Hgb Hct MCV MCH Plt Count Seg Neutrophils % Seg Neutrophils # PT APTT D-Dimer 499.72 H ABG pH ABG pO2 ABG O2 Saturation ABG Base Excess ABG Hemoglobin Oxyhemoglobin Sodium Potassium Chloride Carbon Dioxide BUN Glucose POC Glucose Lactic Acid Uric Acid Calcium Magnesium Ferritin 722.1 H Total Bilirubin AST Lactate Dehydrogenase 455 H Total Creatine Kinase C-Reactive Protein 1.60 H Total Protein Albumin TSH Urine WBC (Auto) Urine Creatinine Salicylates Acetaminophen Valproic Acid SARS-CoV-2 (PCR) 07/08/22 07/08/22 07/09/22 19:13 19:53 00:09 WBC RBC Hgb Hct MCV MCH Plt Count Seg Neutrophils % Seg Neutrophils # PT APTT D-Dimer ABG pH ABG pO2 ABG O2 Saturation ABG Base Excess ABG Hemoglobin Oxyhemoglobin Sodium 160 H Potassium 3.5 L D Chloride 122.0 H Carbon Dioxide 20 L BUN 28 H Glucose 151 H POC Glucose 138 H Lactic Acid 5.70 H* Uric Acid Calcium Magnesium Ferritin Total Bilirubin AST Lactate Dehydrogenase Total Creatine Kinase C-Reactive Protein Total Protein Albumin TSH Urine WBC (Auto) Urine Creatinine Salicylates Acetaminophen Valproic Acid SARS-CoV-2 (PCR) 07/09/22 07/09/22 07/09/22 00:45 03:21 03:21 WBC RBC Hgb Hct MCV MCH Plt Count Seg Neutrophils % Seg Neutrophils # PT APTT D-Dimer ABG pH ABG pO2 ABG O2 Saturation ABG Base Excess ABG Hemoglobin Oxyhemoglobin Sodium 158 H 157 H Potassium Chloride 124.2 H 125.0 H Carbon Dioxide 20 L 20 L BUN 25 H 24 H Glucose 147 H 169 H POC Glucose Lactic Acid 4.70 H* Uric Acid Calcium Magnesium Ferritin Total Bilirubin AST 81 H Lactate Dehydrogenase Total Creatine Kinase C-Reactive Protein Total Protein 5.7 L Albumin 2.8 L TSH Urine WBC (Auto) Urine Creatinine Salicylates Acetaminophen Valproic Acid SARS-CoV-2 (PCR) 07/09/22 07/09/22 04:40 05:35 WBC RBC Hgb Hct MCV MCH Plt Count Seg Neutrophils % Seg Neutrophils # PT APTT D-Dimer ABG pH ABG pO2 172.1 H ABG O2 Saturation 99.1 H ABG Base Excess -2.8 L ABG Hemoglobin Oxyhemoglobin Sodium Potassium Chloride Carbon Dioxide BUN Glucose POC Glucose 108 H Lactic Acid Uric Acid Calcium Magnesium Ferritin Total Bilirubin AST Lactate Dehydrogenase Total Creatine Kinase C-Reactive Protein Total Protein Albumin TSH Urine WBC (Auto) Urine Creatinine Salicylates Acetaminophen Valproic Acid SARS-CoV-2 (PCR)
[2022-07-09 11:40] LABS: Blood Urea Nitrogen 21 mg/dL (7-17); Calcium 8.7 mg/dL (8.4-10.2); Hemolysis Index 9
[2022-07-09 11:41] LABS: BUN/Creatinine Ratio 30
[2022-07-09] MEDS ORDERED: DEXTROSE 50% IN WATER (25GM) 50 ML SYRINGE IV PRN (11:42)
[2022-07-09] MEDS: INSULIN LISPRO 100 UNIT/ML SUB-Q SCH ×2 (12:03→17:42)
[2022-07-09 12:04] LABS: Hematocrit 38.5 % (30.3-42.9); Hemoglobin 12.2 gm/dl (10.1-14.3); Mean Corpuscular HGB Conc 32 % (30-34); Mean Corpuscular Volume 102 fl (79-97); Red Blood Count 3.76 M/mm3 (3.65-5.03); Red Cell Distribution Width 15.2 % (13.2-15.2)
[2022-07-09 12:06] LABS: Platelet Count 74 K/mm3 (140-440)
--- NOTE | 2022-07-09 12:19 | Progress Note ---
<GEORGE DAVIS - Last Filed: 07/09/22 19:25> Assessment and Plan Assessment and plan: This is a 76-year-old female with CVA, pulmonary embolism, hypothyroidism and JUJU admitted with electrolyte imbalances, hypoxic respiratory failure and COVID- 19 pneumonia Hospital Course to Date: 07/08: Patient noted to be COVID-positive, started on remdesivir, Decadron, ceftriaxone azithromycin and infectious disease was consulted yesterday. This morning patient is on any sedation, PICC line to be placed. RT to attempt PSV. Started on free water flushes and tube feedings. Continues on D5 half-normal saline. 07/09: Patient remains encephalopathic, not on any sedation. Hypernatremia is improving, on FWF Q4hrs and D5w gtt per Nephro. If hypernatremia continue to improve and patient's mentation is unchanged, will get a repeat CT to r/o intracranial abnormalities. Patient remains afebrile, leukocytosis improved, and VSS. Continue current IV abx per ID. Patient failed PSV trial again today, trevon nue PSV trial as tolerated Neuro: Acute metabolic encephalopathy, h/o CVA with hemiplegia, dysphagia, aphasia, dementia -Reorientation as needed -Maintain sleep-wake cycle -Resume home Lipitor -As needed analgesia -CT head shows no acute intracranial hemorrhage, multiple chronic appearing infarcts including left MCA distribution, left cerebral hemisphere and within the right basal ganglia -Depakene Cardiac: h/o HLD -Resume home Lipitor -Blood pressure monitoring per protocol Respiratory: Acute hypoxic respiratory failure, h/o JUJU, pulmonary embolism -CCM consulted, appreciate recommendations -Intubated on 07/07 with a 7.50 ETT at 24 the lips -A.m. vent settings: Assist-control, rate 16, tidal volume 400, PEEP 6, FiO2 40% -See RT notes for titration -A.m. ABG and CXR noted -VAP bundle -SPO2 monitoring GI: NAD -PPI -NTR consulted for tube feedings -BR: Senokot-S : Hypernatremia, hypokalemia, rhabdomyolysis -Nephrology consulted, appreciate recommendations -Monitor intake and output -D5W gtt -Free water flush -BMP every 6 per nephrology -Renally dose medications -Avoid nephrotoxic medications -IVF with KCL, D5 -Replete potassium -Trend BMP ID: COVID-19 pneumonia, lactic acidosis -Infectious disease consulted, appreciate recommendation -Antibiotic therapy with Rocephin and Zithromax -Remdesivir for 5 days -Dexamethasone for 10 days -Procalcitonin and CRP pending -Contact/droplet precautions -f/u blood culture -Trend COVID-19 inflammatory markers -Monitor WBC and temperature curve -Prophylactic anticoagulation based on D-dimer per hospital protocol Heme: Thrombocytopenia -Patient presented with low plt -Plt continue to trend down -No s/s of any active bleeding, H&H stable -Continue to trend CBC -On Heparin SubQ -Transfuse for plt less than 20 and hgb less than 7 Endo: h/o hypothyroidism -Avoid hypoglycemia -SSI -Accu-Cheks q. 6 -Long-acting insulin, titrate as needed -Resume home Synthroid GI/DVT Prophylaxis -PPI- pepcid -Heparin SubQ -SCDs to bilateral lower extremities while in bed The high probability of a clinically significant, sudden or life threatening deterioration of the [multi] system(s) required my full and direct attention, intervention and personal management. The aggregate critical care time was [60] minutes. This time is in addition to time spent performing reported procedures but includes the following: [x] Data Review and interpretation [x] Patient assessment and monitoring of vital signs [x] Documentation [x] Medication orders and management Disposition Plan: ICU Total Time Spent with Patient (Minutes): 60 Hospitalist Physical - Constitutional Vitals: Temp Pulse Resp BP Pulse Ox 97.5 F L 81 14 103/62 100 07/09/22 11:52 07/09/22 12:00 07/09/22 12:00 07/09/22 12:00 07/09/22 12:00 General appearance: Present: other (intuavted) HEART Score - HEART Score Troponin: Troponin T 0.010 ng/mL (0.00-0.029) 07/07/22 04:17 Results - Labs CBC & Chem 7: 07/09/22 08:14 07/09/22 17:16 Labs: Laboratory Last Values WBC 10.7 K/mm3 (4.5-11.0) 07/09/22 08:14 RBC 3.76 M/mm3 (3.65-5.03) 07/09/22 08:14 Hgb 12.2 gm/dl (10.1-14.3) 07/09/22 08:14 Hct 38.5 % (30.3-42.9) 07/09/22 08:14 MCV 102 fl (79-97) H 07/09/22 08:14 MCH 33 pg (28-32) H 07/09/22 08:14 MCHC 32 % (30-34) 07/09/22 08:14 RDW 15.2 % (13.2-15.2) 07/09/22 08:14 Plt Count 74 K/mm3 (140-440) L 07/09/22 08:14 Lymph % (Auto) 15.2 % (13.4-35.0) 07/08/22 14:54 [place] % (Auto) 2.7 % (0.0-7.3) 07/08/22 14:54 Eos % (Auto) 0.0 % (0.0-4.3) 07/08/22 14:54 Baso % (Auto) 0.1 % (0.0-1.8) 07/08/22 14:54 Lymph # (Auto) 1.7 K/mm3 (1.2-5.4) 07/08/22 14:54 [place] # (Auto) 0.3 K/mm3 (0.0-0.8) 07/08/22 14:54 Eos # (Auto) 0.0 K/mm3 (0.0-0.4) 07/08/22 14:54 Baso # (Auto) 0.0 K/mm3 (0.0-0.1) 07/08/22 14:54 Seg Neutrophils % 82.0 % (40.0-70.0) H 07/08/22 14:54 Seg Neutrophils # 9.1 K/mm3 (1.8-7.7) H 07/08/22 14:54 PT 15.0 Sec. (12.2-14.9) H 07/07/22 03:38 INR 1.06 (0.87-1.13) 07/07/22 03:38 APTT 23.0 Sec. (24.2-36.6) L 07/07/22 03:38 D-Dimer 499.72 ng/mlDDU (0-234) H 07/08/22 14:54 ABG pH 7.413 pH Units (7.350-7.450) 07/09/22 04:40 ABG pCO2 33.6 mm Hg 07/09/22 04:40 ABG pO2 172.1 mm Hg (80.0-90.0) H 07/09/22 04:40 ABG HCO3 21.0 mmol/L (20.0-26.0) 07/09/22 04:40 ABG O2 Saturation 99.1 % (95.0-99.0) H 07/09/22 04:40 ABG O2 Content 19.1 (0.0-44) 07/09/22 04:40 ABG Base Excess -2.8 mmol/L (-2.0-3.0) L 07/09/22 04:40 ABG Hemoglobin 13.7 gm/dl (12.0-16.0) 07/09/22 04:40 ABG Carboxyhemoglobin 0.7 % (0.0-5.0) 07/09/22 04:40 ABG Methemoglobin 0.8 % (0.0-1.5) 07/09/22 04:40 Oxyhemoglobin 97.6 % (95.0-99.0) 07/09/22 04:40 FiO2 40 % 07/09/22 04:40 Sodium 155 mmol/L (137-145) H 07/09/22 11:16 Potassium 4.5 mmol/L (3.6-5.0) 07/09/22 11:16 Chloride 121.3 mmol/L (98-107) H 07/09/22 11:16 Carbon Dioxide 24 mmol/L (22-30) 07/09/22 11:16 Anion Gap 14 mmol/L 07/09/22 11:16 BUN 21 mg/dL (7-17) H 07/09/22 11:16 Creatinine 0.7 mg/dL (0.6-1.2) 07/09/22 11:16 Estimated GFR > 60 ml/min 07/09/22 11:16 BUN/Creatinine Ratio 30 % 07/09/22 11:16 Glucose 170 mg/dL (65-100) H 07/09/22 11:16 POC Glucose 108 mg/dL (70-105) H 07/09/22 05:35 Lactic Acid 4.70 mmol/L (0.7-2.0) H* 07/09/22 03:21 Uric Acid 13.5 mg/dL (3.5-7.6) H 07/07/22 04:17 Calcium 8.7 mg/dL (8.4-10.2) 07/09/22 11:16 Magnesium 3.30 mg/dL (1.7-2.3) H 07/07/22 03:38 Ferritin 722.1 ng/mL (10.0-200.0) H 07/08/22 14:54 Total Bilirubin 0.30 mg/dL (0.1-1.2) 07/09/22 03:21 AST 81 units/L (5-40) H 07/09/22 03:21 ALT 44 units/L (7-56) 07/09/22 03:21 Alkaline Phosphatase 76 units/L (35-129) 07/09/22 03:21 Ammonia 32.0 umol/L (25-60) 07/07/22 04:17 Lactate Dehydrogenase 455 units/L (91-180) H 07/08/22 14:54 Total Creatine Kinase 2335 units/L (30-135) H 07/08/22 14:54 Troponin T 0.010 ng/mL (0.00-0.029) 07/07/22 04:17 C-Reactive Protein 1.60 mg/dL (0.00-1.30) H 07/08/22 14:54 Total Protein 5.7 g/dL (6.3-8.2) L 07/09/22 03:21 Albumin 2.8 g/dL (3.9-5) L 07/09/22 03:21 Albumin/Globulin Ratio 1.0 % 07/09/22 03:21 Procalcitonin 0.19 ng/mL (<0.15) 07/08/22 14:54 TSH 12.790 mlU/mL (0.270-4.200) H 07/07/22 04:17 Free T4 0.78 ng/dL (0.76-1.46) 07/07/22 04:17 Urine Color Yellow (Yellow) 07/07/22 03:17 Urine Turbidity Slightly cloudy (Clear) 07/07/22 03:17 Specific [place] (Man) 1.015 (1.003-1.030) 07/07/22 03:17 Ur Protein (Man) 1+ mg/dL (Negative) 07/07/22 03:17 Ur Ketones (Man) Negative (Negative) 07/07/22 03:17 Ur Nitrite (Man) Negative (Negative) 07/07/22 03:17 Urine Bilirubin (Man) Negative (Negative) 07/07/22 03:17 Leukocyte Esterase (Man) Negative (Negative) 07/07/22 03:17 Urine WBC (Auto) 7.0 /HPF (0.0-6.0) H 07/07/22 03:17 Urine RBC (Auto) 1.0 /HPF (0.0-6.0) 07/07/22 03:17 U Epithel Cells (Auto) 4.0 /HPF (0-13.0) 07/07/22 03:17 Urine Bacteria (Auto) 3+ /HPF (Negative) 07/07/22 03:17 Urine RBC (Manual) 3+ (Negative) 07/07/22 03:17 Urine Mucus 3+ /HPF 07/07/22 03:17 Urine Osmolality 744 Mosm/kg 07/07/22 16:45 Urine Creatinine 92.9 mg/dL (0.1-20.0) H 07/07/22 16:45 Urine Sodium 109 mmol/L 07/07/22 16:45 Salicylates < 0.3 mg/dL (2.8-20.0) L 07/07/22 03:38 Urine Opiates Screen Presumptive negative 07/07/22 03:17 Urine Methadone Screen Presumptive negative 07/07/22 03:17 Acetaminophen 5.0 ug/mL (10.0-30.0) L 07/07/22 03:38 Ur Barbiturates Screen Presumptive negative 07/07/22 03:17 Valproic Acid 7.0 ug/mL (50-100) L 07/07/22 03:38 Ur Phencyclidine Scrn Presumptive negative 07/07/22 03:17 Ur Amphetamines Screen Presumptive negative 07/07/22 03:17 U Benzodiazepines Scrn Presumptive negative 07/07/22 03:17 Urine Cocaine Screen Presumptive negative 07/07/22 03:17 U Marijuana (THC) Screen Presumptive negative 07/07/22 03:17 Drugs of Abuse Note Disclamer 07/07/22 03:17 Plasma/Serum Alcohol < 0.01 % (0-0.07) 07/07/22 03:38 SARS-CoV-2 (PCR) Positive (Negative) A 07/07/22 15:00 Microbiology: Microbiology 07/07/22 03:38 Peripheral/Venous Blood Culture - Preliminary NO GROWTH AFTER 48 HOURS 07/07/22 03:45 Peripheral/Venous Blood Culture - Preliminary NO GROWTH AFTER 48 HOURS 07/07/22 Unknown Tracheal Aspirate Sputum Culture - Preliminary Gram Negative Saurav Medina/IV: Voiding Method Indwelling Catheter Active Medications - Current Medications Current Medications: Generic Name Dose Route Start Last Admin Trade Name Freq PRN Reason Stop Dose Admin Acetaminophen 650 mg 07/07/22 12:09 Acetaminophen 650 Mg Rect Supp [place] Q6H PRN Pain MILD(1-3)/Fever >100.5/LEE Atorvastatin Calcium 80 mg 07/08/22 22:00 07/08/22 21:38 Atorvastatin 40 Mg Tab PO 80 mg QHS ERROL Administration Cholecalciferol 1,000 unit 07/08/22 10:00 07/09/22 09:47 Cholecalciferol (Vit D3) 1000 Unit (25 Mcg) Tab PO 1,000 unit QDAY ERROL Administration Dexamethasone 6 mg 07/08/22 10:00 07/09/22 09:47 Dexamethasone 4 Mg/Ml Vial IV 07/17/22 10:01 6 mg Q24HR ERROL Administration Dextrose 50 ml 07/09/22 11:42 Dextrose 50% In Water (25gm) 50 Ml Syringe IV Q30MIN PRN Hypoglycemia Protocol Famotidine 20 mg 07/09/22 22:00 Famotidine 20 Mg Tab FEEDTUBE BID ERROL Heparin Sodium (Porcine) 5,000 unit 07/08/22 06:00 07/09/22 05:40 Heparin 5,000 Unit/1 Ml Vial SUB-Q 5,000 unit Q12H ERROL Administration Hydrophilic Ointment 1 applic 07/07/22 02:48 Lip Therapy Vaseline TP Q2HR PRN Dry Lips Remdesivir 100 mg/ Sodium 250 mls @ 500 mls/hr 07/08/22 14:00 07/08/22 15:04 Chloride IV 07/11/22 14:29 Infused Q24HR@1400 ERROL Infusion Azithromycin 500 mg in 250 mls @ 250 mls/hr 07/07/22 17:00 07/08/22 18:04 Zithromax/Ns IV Infused Q24H ERROL Infusion Ceftriaxone Sodium 2 gm in 100 mls @ 200 mls/hr 07/08/22 17:00 07/08/22 17:43 Rocephin/Ns 2 Gm/100 Ml IV Infused Q24H ERROL Infusion Protocol Dextrose 1,000 mls @ 100 mls/hr 07/09/22 10:00 D5w IV DIRECT ERROL Insulin Human Lispro 0 unit 07/09/22 12:00 07/09/22 12:03 Insulin Lispro 100 Unit/Ml SUB-Q 1 unit Q6HR ERROL Administration Protocol Levothyroxine Sodium 75 mcg 07/10/22 06:00 Levothyroxine 75 Mcg Tab PO QAM@0600 ERROL Multi-Ingred Cream/Lotion/Oil/Oint 1 applic 07/07/22 02:48 Mineral Oil/Petrolatum, White Ophth Oint 3.5 Gm OU Q4HR PRN Dry Eye(s) Senna/Docusate Sodium 1 tab 07/07/22 10:00 07/09/22 09:46 Sennosides/Docusate Sodium 8.6/50 Mg Tab FEEDTUBE 1 tab BID ERROL Administration Sodium Chloride 10 ml 07/07/22 13:00 07/09/22 09:48 Sodium Chloride 0.9% 10 Ml Flush Syringe IV 10 ml BID ERROL Administration Sodium Chloride 10 ml 07/07/22 12:09 Sodium Chloride 0.9% 10 Ml Flush Syringe IV PRN PRN LINE FLUSH Sodium Chloride 50 ml 07/08/22 14:00 07/08/22 14:34 Sodium Chloride 0.9% 50 Ml Ivpb IV 07/12/22 14:01 50 ml Q24HR@1400 ERROL Administration Valproic Acid 250 mg 07/08/22 09:00 07/09/22 10:01 Valproic Acid 250 Mg/5 Ml Oral Liqd PO 250 mg Q12H ERROL Administration Nutrition/Malnutrition Assess - Dietary Evaluation Nutrition/Malnutrition Findings: Nutrition Notes Start: 07/07/22 13:24 Freq: Status: Active Protocol: Document 07/08/22 14:28 CARI (Rec: 07/08/22 14:39 CARI [id number]) Nutrition Notes Need for Assessment generated from: MD 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 Pt remains intubated. Burn Absent Trauma Absent Minimum of two criteria No Fluid Accumulation Mild (non-severe) #1 Nutrition Diagnosis Inadequate oral intake Diagnosis Progress(for reassessment Continues documentation) Is patient on ventilator? Yes Is Patient Ambulatory and/or Out of Bed No REE-([facility]-confined to bed) 1763.208 Kcal/Kg value to use for calculation 15 Approximate Energy Requirements Using 1429 kcal/Kg Calculation Used for Recommendations Kcal/kg Additional Notes Pro needs 1.3g/kg adjBW: 100g/ day Fluid needs per MD. Nutrition Intervention Nutrition Support: Nepro at 33ml/hr with 300ml water flush q4h. Kcal 1,426 Protein (gm) 64 Carbohydrates (gm) 128 Fat (gm) 76 Fluid (mL) 576 Fiber (gm) 10 Goal #1 TF tolerance Goal #2 TF to meet 70-80% energy and pro needs as best possible Follow-Up By: 07/10/22 Additional Comments F/U: new TF, vent status, Na and K labs, water flushes <ANAHI ANGELES - Last Filed: 07/10/22 07:27> Assessment and Plan Assessment and plan: The patient was seen and examined with the SENIOR WRITER/PA.Vitals, labs, medications, chart and imaging were reviewed.Agree with SENIOR WRITER's assessment and plan as documented.Discussed care plan and directed management Hospitalist Physical - Constitutional Vitals: Temp Pulse Resp BP Pulse Ox 97.3 F L 69 12 106/63 100 07/10/22 03:04 07/10/22 07:16 07/10/22 07:16 07/10/22 07:16 07/10/22 07:16 HEART Score - HEART Score Troponin: Troponin T 0.010 ng/mL (0.00-0.029) 07/07/22 04:17 Results - Labs CBC & Chem 7: 07/10/22 04:21 07/10/22 04:21 Labs: Laboratory Last Values WBC 11.8 K/mm3 (4.5-11.0) H 07/10/22 04:21 RBC 3.52 M/mm3 (3.65-5.03) L 07/10/22 04:21 Hgb 11.7 gm/dl (10.1-14.3) 07/10/22 04:21 Hct 35.0 % (30.3-42.9) 07/10/22 04:21 MCV 99 fl (79-97) H 07/10/22 04:21 MCH 33 pg (28-32) H 07/10/22 04:21 MCHC 33 % (30-34) 07/10/22 04:21 RDW 14.6 % (13.2-15.2) 07/10/22 04:21 Plt Count 67 K/mm3 (140-440) L 07/10/22 04:21 Lymph % (Auto) 15.2 % (13.4-35.0) 07/08/22 14:54 [place] % (Auto) 2.7 % (0.0-7.3) 07/08/22 14:54 Eos % (Auto) 0.0 % (0.0-4.3) 07/08/22 14:54 Baso % (Auto) 0.1 % (0.0-1.8) 07/08/22 14:54 Lymph # (Auto) 1.7 K/mm3 (1.2-5.4) 07/08/22 14:54 [place] # (Auto) 0.3 K/mm3 (0.0-0.8) 07/08/22 14:54 Eos # (Auto) 0.0 K/mm3 (0.0-0.4) 07/08/22 14:54 Baso # (Auto) 0.0 K/mm3 (0.0-0.1) 07/08/22 14:54 Seg Neutrophils % 82.0 % (40.0-70.0) H 07/08/22 14:54 Seg Neutrophils # 9.1 K/mm3 (1.8-7.7) H 07/08/22 14:54 PT 15.0 Sec. (12.2-14.9) H 07/07/22 03:38 INR 1.06 (0.87-1.13) 07/07/22 03:38 APTT 23.0 Sec. (24.2-36.6) L 07/07/22 03:38 D-Dimer 585.71 ng/mlDDU (0-234) H 07/10/22 04:21 ABG pH 7.450 pH Units (7.350-7.450) 07/10/22 04:55 ABG pCO2 33.3 mm Hg 07/10/22 04:55 ABG pO2 76.8 mm Hg (80.0-90.0) L 07/10/22 04:55 ABG HCO3 22.6 mmol/L (20.0-26.0) 07/10/22 04:55 ABG O2 Saturation 96.0 % (95.0-99.0) 07/10/22 04:55 ABG O2 Content 13.9 (0.0-44) 07/10/22 04:55 ABG Base Excess -0.9 mmol/L (-2.0-3.0) 07/10/22 04:55 ABG Hemoglobin 10.4 gm/dl (12.0-16.0) L 07/10/22 04:55 ABG Carboxyhemoglobin 0.8 % (0.0-5.0) 07/10/22 04:55 ABG Methemoglobin 0.8 % (0.0-1.5) 07/10/22 04:55 Oxyhemoglobin 94.5 % (95.0-99.0) L 07/10/22 04:55 FiO2 45 % 07/10/22 04:55 Sodium 150 mmol/L (137-145) H 07/10/22 04:21 Potassium 4.3 mmol/L (3.6-5.0) 07/10/22 04:21 Chloride 115.0 mmol/L (98-107) H 07/10/22 04:21 Carbon Dioxide 25 mmol/L (22-30) 07/10/22 04:21 Anion Gap 14 mmol/L 07/10/22 04:21 BUN 16 mg/dL (7-17) 07/10/22 04:21 Creatinine 0.6 mg/dL (0.6-1.2) 07/10/22 04:21 Estimated GFR > 60 ml/min 07/10/22 04:21 BUN/Creatinine Ratio 27 % 07/10/22 04:21 Glucose 178 mg/dL (65-100) H 07/10/22 04:21 POC Glucose 147 mg/dL (70-105) H 07/10/22 05:26 Lactic Acid 2.50 mmol/L (0.7-2.0) H* 07/10/22 04:21 Uric Acid 13.5 mg/dL (3.5-7.6) H 07/07/22 04:17 Calcium 8.6 mg/dL (8.4-10.2) 07/10/22 04:21 Magnesium 3.30 mg/dL (1.7-2.3) H 07/07/22 03:38 Ferritin 631.3 ng/mL (10.0-200.0) H 07/10/22 04:21 Total Bilirubin 0.30 mg/dL (0.1-1.2) 07/10/22 04:21 AST 89 units/L (5-40) H 07/10/22 04:21 ALT 53 units/L (7-56) 07/10/22 04:21 Alkaline Phosphatase 83 units/L (35-129) 07/10/22 04:21 Ammonia 32.0 umol/L (25-60) 07/07/22 04:17 Lactate Dehydrogenase 431 units/L (91-180) H 07/10/22 04:21 Total Creatine Kinase 2335 units/L (30-135) H 07/08/22 14:54 Troponin T 0.010 ng/mL (0.00-0.029) 07/07/22 04:17 C-Reactive Protein 0.60 mg/dL (0.00-1.30) 07/10/22 04:21 Total Protein 4.9 g/dL (6.3-8.2) L 07/10/22 04:21 Albumin 2.5 g/dL (3.9-5) L 07/10/22 04:21 Albumin/Globulin Ratio 1.0 % 07/10/22 04:21 Procalcitonin 0.19 ng/mL (<0.15) 07/08/22 14:54 TSH 12.790 mlU/mL (0.270-4.200) H 07/07/22 04:17 Free T4 0.78 ng/dL (0.76-1.46) 07/07/22 04:17 Urine Color Yellow (Yellow) 07/07/22 03:17 Urine Turbidity Slightly cloudy (Clear) 07/07/22 03:17 Specific [place] (Man) 1.015 (1.003-1.030) 07/07/22 03:17 Ur Protein (Man) 1+ mg/dL (Negative) 07/07/22 03:17 Ur Ketones (Man) Negative (Negative) 07/07/22 03:17 Ur Nitrite (Man) Negative (Negative) 07/07/22 03:17 Urine Bilirubin (Man) Negative (Negative) 07/07/22 03:17 Leukocyte Esterase (Man) Negative (Negative) 07/07/22 03:17 Urine WBC (Auto) 7.0 /HPF (0.0-6.0) H 07/07/22 03:17 Urine RBC (Auto) 1.0 /HPF (0.0-6.0) 07/07/22 03:17 U Epithel Cells (Auto) 4.0 /HPF (0-13.0) 07/07/22 03:17 Urine Bacteria (Auto) 3+ /HPF (Negative) 07/07/22 03:17 Urine RBC (Manual) 3+ (Negative) 07/07/22 03:17 Urine Mucus 3+ /HPF 07/07/22 03:17 Urine Osmolality 744 Mosm/kg 07/07/22 16:45 Urine Creatinine 92.9 mg/dL (0.1-20.0) H 07/07/22 16:45 Urine Sodium 109 mmol/L 07/07/22 16:45 Salicylates < 0.3 mg/dL (2.8-20.0) L 07/07/22 03:38 Urine Opiates Screen Presumptive negative 07/07/22 03:17 Urine Methadone Screen Presumptive negative 07/07/22 03:17 Acetaminophen 5.0 ug/mL (10.0-30.0) L 07/07/22 03:38 Ur Barbiturates Screen Presumptive negative 07/07/22 03:17 Valproic Acid 7.0 ug/mL (50-100) L 07/07/22 03:38 Ur Phencyclidine Scrn Presumptive negative 07/07/22 03:17 Ur Amphetamines Screen Presumptive negative 07/07/22 03:17 U Benzodiazepines Scrn Presumptive negative 07/07/22 03:17 Urine Cocaine Screen Presumptive negative 07/07/22 03:17 U Marijuana (THC) Screen Presumptive negative 07/07/22 03:17 Drugs of Abuse Note Disclamer 07/07/22 03:17 Plasma/Serum Alcohol < 0.01 % (0-0.07) 07/07/22 03:38 SARS-CoV-2 (PCR) Positive (Negative) A 07/07/22 15:00 Microbiology: Microbiology 07/07/22 03:38 Peripheral/Venous Blood Culture - Preliminary NO GROWTH AFTER 72 HOURS 07/07/22 03:45 Peripheral/Venous Blood Culture - Preliminary NO GROWTH AFTER 72 HOURS Medina/IV: Voiding Method Indwelling Catheter Active Medications - Current Medications Current Medications: Generic Name Dose Route Start Last Admin Trade Name Freq PRN Reason Stop Dose Admin Acetaminophen 650 mg 07/07/22 12:09 Acetaminophen 650 Mg Rect Supp [place] Q6H PRN Pain MILD(1-3)/Fever >100.5/LEE Atorvastatin Calcium 80 mg 07/08/22 22:00 07/09/22 22:13 Atorvastatin 40 Mg Tab PO 80 mg QHS ERROL Administration Cholecalciferol 1,000 unit 07/08/22 10:00 07/09/22 09:47 Cholecalciferol (Vit D3) 1000 Unit (25 Mcg) Tab PO 1,000 unit QDAY ERROL Administration Dexamethasone 6 mg 07/08/22 10:00 07/09/22 09:47 Dexamethasone 4 Mg/Ml Vial IV 07/17/22 10:01 6 mg Q24HR ERROL Administration Dextrose 50 ml 07/09/22 11:42 Dextrose 50% In Water (25gm) 50 Ml Syringe IV Q30MIN PRN Hypoglycemia Protocol Famotidine 20 mg 07/09/22 22:00 07/09/22 22:14 Famotidine 20 Mg Tab FEEDTUBE 20 mg BID ERROL Administration Heparin Sodium (Porcine) 5,000 unit 07/08/22 06:00 07/10/22 05:10 Heparin 5,000 Unit/1 Ml Vial SUB-Q 5,000 unit Q12H ERROL Administration Hydrophilic Ointment 1 applic 07/07/22 02:48 Lip Therapy Vaseline TP Q2HR PRN Dry Lips Remdesivir 100 mg/ Sodium 250 mls @ 500 mls/hr 07/08/22 14:00 07/09/22 16:11 Chloride IV 07/11/22 14:29 Infused Q24HR@1400 ERROL Infusion Azithromycin 500 mg in 250 mls @ 250 mls/hr 07/07/22 17:00 07/09/22 17:42 Zithromax/Ns IV 250 mls/hr Q24H ERROL Administration Ceftriaxone Sodium 2 gm in 100 mls @ 200 mls/hr 07/08/22 17:00 07/09/22 17:42 Rocephin/Ns 2 Gm/100 Ml IV 200 mls/hr Q24H ERROL Administration Protocol Dextrose 1,000 mls @ 100 mls/hr 07/09/22 10:00 07/10/22 05:34 D5w IV 100 mls/hr DIRECT ERROL Administration Insulin Human Lispro 0 unit 07/09/22 12:00 07/10/22 05:27 Insulin Lispro 100 Unit/Ml SUB-Q Not Given Q6HR [facility] Protocol Levothyroxine Sodium 75 mcg 07/10/22 06:00 07/10/22 05:10 Levothyroxine 75 Mcg Tab PO 75 mcg QAM@0600 ERROL Administration Multi-Ingred Cream/Lotion/Oil/Oint 1 applic 07/07/22 02:48 Mineral Oil/Petrolatum, White Ophth Oint 3.5 Gm OU Q4HR PRN Dry Eye(s) Senna/Docusate Sodium 1 tab 07/07/22 10:00 07/09/22 22:14 Sennosides/Docusate Sodium 8.6/50 Mg Tab FEEDTUBE 1 tab BID ERROL Administration Sodium Chloride 10 ml 07/07/22 13:00 07/09/22 22:14 Sodium Chloride 0.9% 10 Ml Flush Syringe IV 10 ml BID ERROL Administration Sodium Chloride 10 ml 07/07/22 12:09 Sodium Chloride 0.9% 10 Ml Flush Syringe IV PRN PRN LINE FLUSH Sodium Chloride 50 ml 07/08/22 14:00 07/09/22 16:12 Sodium Chloride 0.9% 50 Ml Ivpb IV 07/12/22 14:01 50 ml Q24HR@1400 ERROL Administration Valproic Acid 250 mg 07/08/22 09:00 07/09/22 22:13 Valproic Acid 250 Mg/5 Ml Oral Liqd PO 250 mg Q12H ERROL Administration Nutrition/Malnutrition Assess - Dietary Evaluation Nutrition/Malnutrition Findings: Nutrition Notes Start: 07/07/22 13:24 Freq: Status: Active Protocol: Document 07/08/22 14:28 CARI (Rec: 07/08/22 14:39 CARI [id number]) Nutrition Notes Need for Assessment generated from: MD 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 Pt remains intubated. Burn Absent Trauma Absent Minimum of two criteria No Fluid Accumulation Mild (non-severe) #1 Nutrition Diagnosis Inadequate oral intake Diagnosis Progress(for reassessment Continues documentation) Is patient on ventilator? Yes Is Patient Ambulatory and/or Out of Bed No REE-([facility]-confined to bed) 1763.208 Kcal/Kg value to use for calculation 15 Approximate Energy Requirements Using 1429 kcal/Kg Calculation Used for Recommendations Kcal/kg Additional Notes Pro needs 1.3g/kg adjBW: 100g/ day Fluid needs per MD. Nutrition Intervention Nutrition Support: Nepro at 33ml/hr with 300ml water flush q4h. Kcal 1,426 Protein (gm) 64 Carbohydrates (gm) 128 Fat (gm) 76 Fluid (mL) 576 Fiber (gm) 10 Goal #1 TF tolerance Goal #2 TF to meet 70-80% energy and pro needs as best possible Follow-Up By: 07/10/22 Additional Comments F/U: new TF, vent status, Na and K labs, water flushes
--- NOTE | 2022-07-09 14:19 | Progress Note ---
Assessment and Plan Cultures: SARS CoV2 PCR: Positive 07/07/2022 blood culture: No growth 07/07/2022 sputum culture: GNR A/P: 76-year-old female with prior CVA, hemiplegia, aphasia, dementia, history of pulmonary embolism was admitted from the half-way with altered mental status, hypoxia. Was seen in the ED, intubated for airway protection: #COVID-19: CXR without significant pneumonia. Procalcitonin 0.19. Lactate 4.7. CRP 1.6. #Acute hypoxic respiratory failure: On mechanical ventilation #Acute encephalopathy: Likely metabolic, sodium was significantly elevated on admission #Chronic CVA, dementia #Transaminitis: Mild, could be related to COVID-19, there is a mild CPK elevation as well. Recs: -OK with IV/PO Dexamethasone x 10 days -continue IV remdesivir x 5 days -prophylactic anticoagulation based on d-dimer per hospital protocol -sputum growing GNR, continue ceftriaxone, azithromycin for now -trend ferritin, d-dimer, CRP every 2-3 days Vanessa Pires MD, FACP, [facility] ([facility]) O: [phone] F: [phone] C: [phone] Subjective Date of service: 07/09/22 Principal diagnosis: Hypernatremia Interval history: Afebrile. Remains on the vent. Procalcitonin 0.19. Lactate 4.7. CRP 1.6. Objective - Exam Narrative Exam: Physical Exam: Constitutional: sedated, intubated, on the vent Head, Ears, Nose: Normocephalic, atraumatic. External ears, nose normal Eyes: Conjunctivae/corneas clear. No icterus. No ptosis. Neck: intubated Oral: intubated Cardiovascular: S1, S2 + Respiratory: AE fair bilaterally and equal GI: Soft, bowel sounds + Musculoskeletal: No pedal edema, no cyanosis. Skin: No rash or abscess Hem/Lymphatic: No palpable cervical or supraclavicular nodes. No lymphangitis Psych: no agitation Neurological: sedated, intubated, on the vent, exam limited - Constitutional Vitals: Vital Signs Temp Pulse Resp BP Pulse Ox 97.5 F L 105 H 14 103/62 99 07/09/22 11:52 07/09/22 12:42 07/09/22 12:00 07/09/22 12:42 07/09/22 12:42 Temperature -Last 24 Hours Temperature 97.5 F Temperature 97.5 F Temperature 97.5 F Temperature 97.7 F Temperature 97.7 F Temperature 97.9 F Temperature 97.7 F - Labs CBC & Chem 7: 07/09/22 08:14 07/09/22 11:16 Labs: Abnormal lab results 07/08/22 07/08/22 07/08/22 Range/Units 11:21 14:54 14:54 WBC 11.1 H (4.5-11.0) K/mm3 MCV 101 H (79-97) fl MCH 33 H (28-32) pg Plt Count 69 L (140-440) K/mm3 Seg Neutrophils % 82.0 H (40.0-70.0) % Seg Neutrophils # 9.1 H (1.8-7.7) K/mm3 D-Dimer (0-234) ng/mlDDU ABG pO2 (80.0-90.0) mm Hg ABG O2 Saturation (95.0-99.0) % ABG Base Excess (-2.0-3.0) mmol/L Sodium 163 H* (137-145) mmol/L Potassium 2.9 L* (3.6-5.0) mmol/L Chloride 123.7 H (98-107) mmol/L Carbon Dioxide (22-30) mmol/L BUN 30 H (7-17) mg/dL Glucose 161 H (65-100) mg/dL POC Glucose 148 H (70-105) mg/dL Lactic Acid (0.7-2.0) mmol/L Ferritin (10.0-200.0) ng/mL AST 69 H (5-40) units/L Lactate Dehydrogenase (91-180) units/L Total Creatine Kinase (30-135) units/L C-Reactive Protein (0.00-1.30) mg/dL Total Protein 5.6 L D (6.3-8.2) g/dL Albumin 3.1 L (3.9-5) g/dL 07/08/22 07/08/22 07/08/22 Range/Units 14:54 14:54 14:54 WBC (4.5-11.0) K/mm3 MCV (79-97) fl MCH (28-32) pg Plt Count (140-440) K/mm3 Seg Neutrophils % (40.0-70.0) % Seg Neutrophils # (1.8-7.7) K/mm3 D-Dimer 499.72 H (0-234) ng/mlDDU ABG pO2 (80.0-90.0) mm Hg ABG O2 Saturation (95.0-99.0) % ABG Base Excess (-2.0-3.0) mmol/L Sodium (137-145) mmol/L Potassium (3.6-5.0) mmol/L Chloride (98-107) mmol/L Carbon Dioxide (22-30) mmol/L BUN (7-17) mg/dL Glucose (65-100) mg/dL POC Glucose (70-105) mg/dL Lactic Acid 6.10 H* (0.7-2.0) mmol/L Ferritin (10.0-200.0) ng/mL AST (5-40) units/L Lactate Dehydrogenase (91-180) units/L Total Creatine Kinase 2335 H (30-135) units/L C-Reactive Protein (0.00-1.30) mg/dL Total Protein (6.3-8.2) g/dL Albumin (3.9-5) g/dL 07/08/22 07/08/22 07/08/22 Range/Units 14:54 14:54 19:13 WBC (4.5-11.0) K/mm3 MCV (79-97) fl MCH (28-32) pg Plt Count (140-440) K/mm3 Seg Neutrophils % (40.0-70.0) % Seg Neutrophils # (1.8-7.7) K/mm3 D-Dimer (0-234) ng/mlDDU ABG pO2 (80.0-90.0) mm Hg ABG O2 Saturation (95.0-99.0) % ABG Base Excess (-2.0-3.0) mmol/L Sodium 160 H (137-145) mmol/L Potassium 3.5 L D (3.6-5.0) mmol/L Chloride 122.0 H (98-107) mmol/L Carbon Dioxide 20 L (22-30) mmol/L BUN 28 H (7-17) mg/dL Glucose 151 H (65-100) mg/dL POC Glucose (70-105) mg/dL Lactic Acid (0.7-2.0) mmol/L Ferritin 722.1 H (10.0-200.0) ng/mL AST (5-40) units/L Lactate Dehydrogenase 455 H (91-180) units/L Total Creatine Kinase (30-135) units/L C-Reactive Protein 1.60 H (0.00-1.30) mg/dL Total Protein (6.3-8.2) g/dL Albumin (3.9-5) g/dL 07/08/22 07/09/22 07/09/22 Range/Units 19:53 00:09 00:45 WBC (4.5-11.0) K/mm3 MCV (79-97) fl MCH (28-32) pg Plt Count (140-440) K/mm3 Seg Neutrophils % (40.0-70.0) % Seg Neutrophils # (1.8-7.7) K/mm3 D-Dimer (0-234) ng/mlDDU ABG pO2 (80.0-90.0) mm Hg ABG O2 Saturation (95.0-99.0) % ABG Base Excess (-2.0-3.0) mmol/L Sodium 158 H (137-145) mmol/L Potassium (3.6-5.0) mmol/L Chloride 124.2 H (98-107) mmol/L Carbon Dioxide 20 L (22-30) mmol/L BUN 25 H (7-17) mg/dL Glucose 147 H (65-100) mg/dL POC Glucose 138 H (70-105) mg/dL Lactic Acid 5.70 H* (0.7-2.0) mmol/L Ferritin (10.0-200.0) ng/mL AST (5-40) units/L Lactate Dehydrogenase (91-180) units/L Total Creatine Kinase (30-135) units/L C-Reactive Protein (0.00-1.30) mg/dL Total Protein (6.3-8.2) g/dL Albumin (3.9-5) g/dL 07/09/22 07/09/22 07/09/22 Range/Units 03:21 03:21 04:40 WBC (4.5-11.0) K/mm3 MCV (79-97) fl MCH (28-32) pg Plt Count (140-440) K/mm3 Seg Neutrophils % (40.0-70.0) % Seg Neutrophils # (1.8-7.7) K/mm3 D-Dimer (0-234) ng/mlDDU ABG pO2 172.1 H (80.0-90.0) mm Hg ABG O2 Saturation 99.1 H (95.0-99.0) % ABG Base Excess -2.8 L (-2.0-3.0) mmol/L Sodium 157 H (137-145) mmol/L Potassium (3.6-5.0) mmol/L Chloride 125.0 H (98-107) mmol/L Carbon Dioxide 20 L (22-30) mmol/L BUN 24 H (7-17) mg/dL Glucose 169 H (65-100) mg/dL POC Glucose (70-105) mg/dL Lactic Acid 4.70 H* (0.7-2.0) mmol/L Ferritin (10.0-200.0) ng/mL AST 81 H (5-40) units/L Lactate Dehydrogenase (91-180) units/L Total Creatine Kinase (30-135) units/L C-Reactive Protein (0.00-1.30) mg/dL Total Protein 5.7 L (6.3-8.2) g/dL Albumin 2.8 L (3.9-5) g/dL 07/09/22 07/09/22 07/09/22 Range/Units 05:35 08:14 11:16 WBC (4.5-11.0) K/mm3 MCV 102 H (79-97) fl MCH 33 H (28-32) pg Plt Count 74 L (140-440) K/mm3 Seg Neutrophils % (40.0-70.0) % Seg Neutrophils # (1.8-7.7) K/mm3 D-Dimer (0-234) ng/mlDDU ABG pO2 (80.0-90.0) mm Hg ABG O2 Saturation (95.0-99.0) % ABG Base Excess (-2.0-3.0) mmol/L Sodium 155 H (137-145) mmol/L Potassium (3.6-5.0) mmol/L Chloride 121.3 H (98-107) mmol/L Carbon Dioxide (22-30) mmol/L BUN 21 H (7-17) mg/dL Glucose 170 H (65-100) mg/dL POC Glucose 108 H (70-105) mg/dL Lactic Acid (0.7-2.0) mmol/L Ferritin (10.0-200.0) ng/mL AST (5-40) units/L Lactate Dehydrogenase (91-180) units/L Total Creatine Kinase (30-135) units/L C-Reactive Protein (0.00-1.30) mg/dL Total Protein (6.3-8.2) g/dL Albumin (3.9-5) g/dL 07/09/22 Range/Units 11:27 WBC (4.5-11.0) K/mm3 MCV (79-97) fl MCH (28-32) pg Plt Count (140-440) K/mm3 Seg Neutrophils % (40.0-70.0) % Seg Neutrophils # (1.8-7.7) K/mm3 D-Dimer (0-234) ng/mlDDU ABG pO2 (80.0-90.0) mm Hg ABG O2 Saturation (95.0-99.0) % ABG Base Excess (-2.0-3.0) mmol/L Sodium (137-145) mmol/L Potassium (3.6-5.0) mmol/L Chloride (98-107) mmol/L Carbon Dioxide (22-30) mmol/L BUN (7-17) mg/dL Glucose (65-100) mg/dL POC Glucose 173 H (70-105) mg/dL Lactic Acid (0.7-2.0) mmol/L Ferritin (10.0-200.0) ng/mL AST (5-40) units/L Lactate Dehydrogenase (91-180) units/L Total Creatine Kinase (30-135) units/L C-Reactive Protein (0.00-1.30) mg/dL Total Protein (6.3-8.2) g/dL Albumin (3.9-5) g/dL
[2022-07-09] MEDS: REMDESIVIR 100 MG in SODIUM CHLORIDE 0.9% 250ML 250 ML IV SCH (15:33)
[2022-07-09] MEDS: SODIUM CHLORIDE 0.9% 50 ML IVPB IV SCH (16:12)
[2022-07-09] MEDS: AZITHROMYCIN/NS 500 MG/250 ML 500 MG/250 ML BAG IV SCH (17:42)
[2022-07-09] MEDS: cefTRIAXone/NS 2 GM/100 ML 2 GM/100 ML BAG IV SCH (17:42)
[2022-07-09 18:07] LABS: Blood Urea Nitrogen 18 mg/dL (7-17); Calcium 7.9 mg/dL (8.4-10.2); Hemolysis Index 6
[2022-07-09 18:08] LABS: BUN/Creatinine Ratio 36
[2022-07-09] MEDS: DEXTROSE 5% IN WATER 1,000 ML IV SCH (20:30)
[2022-07-09] MEDS: FAMOTIDINE 20 MG TAB FEEDTUBE SCH (22:14)
[2022-07-10] MEDS: INSULIN LISPRO 100 UNIT/ML SUB-Q SCH ×4 (00:09→17:56)
[2022-07-10] MEDS: FREE WATER PO SCH ×6 (03:00→22:50)
--- NOTE | 2022-07-10 04:16 | XRay Report ---
CHEST 1 VIEW INDICATION / CLINICAL INFORMATION: follow up respiratory failure. FINDINGS: SUPPORT DEVICES: No significant change in position. HEART / MEDIASTINUM: The cardiomediastinal silhouette has not significantly changed in the interim. LUNGS / PLEURA: The lungs are grossly clear. Signer Name: Alexis Resendiz MD Signed: 07/10/2022 4:12 AM Workstation Name: [email or web address]
[2022-07-10 05:06] LABS: Hemoglobin 11.7 gm/dl (10.1-14.3); Mean Corpuscular HGB Conc 33 % (30-34); Mean Corpuscular Volume 99 fl (79-97); Red Blood Count 3.52 M/mm3 (3.65-5.03); Red Cell Distribution Width 14.6 % (13.2-15.2)
[2022-07-10 05:08] LABS: Platelet Count 67 K/mm3 (140-440)
[2022-07-10] MEDS: HEPARIN 5,000 UNIT/1 ML VIAL SUB-Q SCH ×2 (05:10→17:31)
[2022-07-10 05:25] LABS: ABG Base Excess -0.9 mmol/L (-2.0-3.0); ABG HCO3 22.6 mmol/L (20.0-26.0); ABG Methemoglobin 0.8 % (0.0-1.5); ABG PCO2 33.3 mm Hg; ABG PH 7.45 pH Units (7.350-7.450); ABG PO2 76.8 mm Hg (80.0-90.0)
[2022-07-10] MEDS: DEXTROSE 5% IN WATER 1,000 ML IV SCH (05:34)
[2022-07-10 05:35] LABS: Alanine Aminotransferase 53 units/L (7-56); Albumin 2.5 g/dL (3.9-5); Blood Urea Nitrogen 16 mg/dL (7-17); Calcium 8.6 mg/dL (8.4-10.2); Hemolysis Index 8
[2022-07-10 05:39] LABS: BUN/Creatinine Ratio 27
[2022-07-10] MEDS ORDERED: LEVOTHYROXINE 75 MCG TAB PO SCH (06:00)
[2022-07-10] MEDS: dexAMETHasone 4 MG/ML VIAL IV SCH (09:20)
[2022-07-10] MEDS: SENNOSIDES/DOCUSATE SODIUM 8.6/50 MG TAB FEEDTUBE SCH ×2 (09:20→22:52)
[2022-07-10] MEDS: VALPROIC ACID 250 MG/5 ML ORAL LIQD PO SCH (09:21)
[2022-07-10] MEDS: FAMOTIDINE 20 MG TAB FEEDTUBE SCH ×2 (09:21→22:52)
[2022-07-10] MEDS: CHOLECALCIFEROL (VIT D3) 1000 UNIT (25 mcg) TAB PO SCH (09:21)
--- NOTE | 2022-07-10 10:19 | Progress Note ---
Assessment and Plan Cultures: SARS CoV2 PCR: Positive 07/07/2022 blood culture: No growth 07/07/2022 sputum culture: GNR A/P: 76-year-old female with prior CVA, hemiplegia, aphasia, dementia, history of pulmonary embolism [facility], hypoxia. Was seen in the ED, intubated for airway protection: #COVID-19: CXR without significant pneumonia. Procalcitonin 0.19. Lactate 4.7. CRP 1.6. #Acute hypoxic respiratory failure: On mechanical ventilation. #Acute encephalopathy: Likely metabolic, sodium was significantly elevated on admission #Chronic CVA, dementia #Transaminitis: Mild, could be related to COVID-19, there was mild CPK elevation as well. Improving. Recs: -continue with IV/PO Dexamethasone x 10 days -continue IV remdesivir x 5 days -prophylactic anticoagulation based on d-dimer per hospital protocol -sputum growing GNR, ?colonization, continue ceftriaxone for now -azithromycin discontinued, d/w ICU pharmacist -trend ferritin, d-dimer, CRP every 2-3 days Vanessa Pires MD, FACP, [facility] ([facility] O: [phone] F: [phone] C: [phone] Subjective Date of service: 07/10/22 Principal diagnosis: Hypernatremia Interval history: Afebrile. Remains on the vent. No issues, d/w RN Objective - Exam Narrative Exam: Physical Exam: Constitutional: sedated, intubated, on the vent Head, Ears, Nose: Normocephalic, atraumatic. External ears, nose normal Eyes: Conjunctivae/corneas clear. No icterus. No ptosis. Neck: intubated Oral: intubated Cardiovascular: S1, S2 + Respiratory: AE fair bilaterally and equal GI: Soft, bowel sounds + Musculoskeletal: No pedal edema, no cyanosis. Skin: No rash or abscess Hem/Lymphatic: No palpable cervical or supraclavicular nodes. No lymphangitis Psych: no agitation Neurological: sedated, intubated, on the vent, exam limited - Constitutional Vitals: Vital Signs Temp Pulse Resp BP Pulse Ox 97.7 F 83 12 107/64 100 07/10/22 08:00 07/10/22 10:00 07/10/22 10:00 07/10/22 10:00 07/10/22 10:00 Temperature -Last 24 Hours Temperature 97.7 F Temperature 97.3 F Temperature 98.1 F Temperature 98.1 F Temperature 97.9 F Temperature 97.9 F Temperature 97.5 F Temperature 97.5 F - Labs CBC & Chem 7: 07/10/22 04:21 07/10/22 04:21 Labs: Abnormal lab results 07/09/22 07/09/22 07/09/22 Range/Units 08:14 11:16 11:27 WBC (4.5-11.0) K/mm3 RBC (3.65-5.03) M/mm3 MCV 102 H (79-97) fl MCH 33 H (28-32) pg Plt Count 74 L (140-440) K/mm3 D-Dimer (0-234) ng/mlDDU ABG pO2 (80.0-90.0) mm Hg ABG Hemoglobin (12.0-16.0) gm/dl Oxyhemoglobin (95.0-99.0) % Sodium 155 H (137-145) mmol/L Chloride 121.3 H (98-107) mmol/L BUN 21 H (7-17) mg/dL Creatinine (0.6-1.2) mg/dL Glucose 170 H (65-100) mg/dL POC Glucose 173 H (70-105) mg/dL Lactic Acid (0.7-2.0) mmol/L Calcium (8.4-10.2) mg/dL Ferritin (10.0-200.0) ng/mL AST (5-40) units/L Lactate Dehydrogenase (91-180) units/L Total Protein (6.3-8.2) g/dL Albumin (3.9-5) g/dL 07/09/22 07/09/22 07/10/22 Range/Units 16:20 17:16 00:04 WBC (4.5-11.0) K/mm3 RBC (3.65-5.03) M/mm3 MCV (79-97) fl MCH (28-32) pg Plt Count (140-440) K/mm3 D-Dimer (0-234) ng/mlDDU ABG pO2 (80.0-90.0) mm Hg ABG Hemoglobin (12.0-16.0) gm/dl Oxyhemoglobin (95.0-99.0) % Sodium 149 H (137-145) mmol/L Chloride 115.6 H (98-107) mmol/L BUN 18 H (7-17) mg/dL Creatinine 0.5 L (0.6-1.2) mg/dL Glucose 207 H (65-100) mg/dL POC Glucose 190 H 180 H (70-105) mg/dL Lactic Acid (0.7-2.0) mmol/L Calcium 7.9 L (8.4-10.2) mg/dL Ferritin (10.0-200.0) ng/mL AST (5-40) units/L Lactate Dehydrogenase (91-180) units/L Total Protein (6.3-8.2) g/dL Albumin (3.9-5) g/dL 07/10/22 07/10/22 07/10/22 Range/Units 04:21 04:21 04:21 WBC (4.5-11.0) K/mm3 RBC (3.65-5.03) M/mm3 MCV (79-97) fl MCH (28-32) pg Plt Count (140-440) K/mm3 D-Dimer 585.71 H (0-234) ng/mlDDU ABG pO2 (80.0-90.0) mm Hg ABG Hemoglobin (12.0-16.0) gm/dl Oxyhemoglobin (95.0-99.0) % Sodium 150 H (137-145) mmol/L Chloride 115.0 H (98-107) mmol/L BUN (7-17) mg/dL Creatinine (0.6-1.2) mg/dL Glucose 178 H (65-100) mg/dL POC Glucose (70-105) mg/dL Lactic Acid (0.7-2.0) mmol/L Calcium (8.4-10.2) mg/dL Ferritin 631.3 H (10.0-200.0) ng/mL AST 89 H (5-40) units/L Lactate Dehydrogenase 431 H (91-180) units/L Total Protein 4.9 L (6.3-8.2) g/dL Albumin 2.5 L (3.9-5) g/dL 07/10/22 07/10/22 07/10/22 Range/Units 04:21 04:21 04:55 WBC 11.8 H (4.5-11.0) K/mm3 RBC 3.52 L (3.65-5.03) M/mm3 MCV 99 H (79-97) fl MCH 33 H (28-32) pg Plt Count 67 L (140-440) K/mm3 D-Dimer (0-234) ng/mlDDU ABG pO2 76.8 L (80.0-90.0) mm Hg ABG Hemoglobin 10.4 L (12.0-16.0) gm/dl Oxyhemoglobin 94.5 L (95.0-99.0) % Sodium (137-145) mmol/L Chloride (98-107) mmol/L BUN (7-17) mg/dL Creatinine (0.6-1.2) mg/dL Glucose (65-100) mg/dL POC Glucose (70-105) mg/dL Lactic Acid 2.50 H* (0.7-2.0) mmol/L Calcium (8.4-10.2) mg/dL Ferritin (10.0-200.0) ng/mL AST (5-40) units/L Lactate Dehydrogenase (91-180) units/L Total Protein (6.3-8.2) g/dL Albumin (3.9-5) g/dL 07/10/22 07/10/22 Range/Units 05:26 08:24 WBC (4.5-11.0) K/mm3 RBC (3.65-5.03) M/mm3 MCV (79-97) fl MCH (28-32) pg Plt Count (140-440) K/mm3 D-Dimer (0-234) ng/mlDDU ABG pO2 (80.0-90.0) mm Hg ABG Hemoglobin (12.0-16.0) gm/dl Oxyhemoglobin (95.0-99.0) % Sodium (137-145) mmol/L Chloride (98-107) mmol/L BUN (7-17) mg/dL Creatinine (0.6-1.2) mg/dL Glucose (65-100) mg/dL POC Glucose 147 H (70-105) mg/dL Lactic Acid 2.10 H* (0.7-2.0) mmol/L Calcium (8.4-10.2) mg/dL Ferritin (10.0-200.0) ng/mL AST (5-40) units/L Lactate Dehydrogenase (91-180) units/L Total Protein (6.3-8.2) g/dL Albumin (3.9-5) g/dL
[2022-07-10] MEDS: CHOLECALCIFEROL (VIT D3) 1000 UNIT (25 mcg) TAB FEEDTUBE SCH (11:13)
--- NOTE | 2022-07-10 12:03 | Progress Note ---
Hospitalist Physical - Constitutional Vitals: Temp Pulse Resp BP Pulse Ox 97.5 F L 71 11 L 106/59 100 07/10/22 11:49 07/10/22 11:49 07/10/22 11:00 07/10/22 11:27 07/10/22 11:49 General appearance: Present: other (intuavted) HEART Score - HEART Score Troponin: Troponin T 0.010 ng/mL (0.00-0.029) 07/07/22 04:17 Results - Labs CBC & Chem 7: 07/10/22 04:21 07/10/22 04:21 Labs: Laboratory Last Values WBC 11.8 K/mm3 (4.5-11.0) H 07/10/22 04:21 RBC 3.52 M/mm3 (3.65-5.03) L 07/10/22 04:21 Hgb 11.7 gm/dl (10.1-14.3) 07/10/22 04:21 Hct 35.0 % (30.3-42.9) 07/10/22 04:21 MCV 99 fl (79-97) H 07/10/22 04:21 MCH 33 pg (28-32) H 07/10/22 04:21 MCHC 33 % (30-34) 07/10/22 04:21 RDW 14.6 % (13.2-15.2) 07/10/22 04:21 Plt Count 67 K/mm3 (140-440) L 07/10/22 04:21 Lymph % (Auto) 15.2 % (13.4-35.0) 07/08/22 14:54 Ballard % (Auto) 2.7 % (0.0-7.3) 07/08/22 14:54 Eos % (Auto) 0.0 % (0.0-4.3) 07/08/22 14:54 Baso % (Auto) 0.1 % (0.0-1.8) 07/08/22 14:54 Lymph # (Auto) 1.7 K/mm3 (1.2-5.4) 07/08/22 14:54 Ballard # (Auto) 0.3 K/mm3 (0.0-0.8) 07/08/22 14:54 Eos # (Auto) 0.0 K/mm3 (0.0-0.4) 07/08/22 14:54 Baso # (Auto) 0.0 K/mm3 (0.0-0.1) 07/08/22 14:54 Seg Neutrophils % 82.0 % (40.0-70.0) H 07/08/22 14:54 Seg Neutrophils # 9.1 K/mm3 (1.8-7.7) H 07/08/22 14:54 PT 15.0 Sec. (12.2-14.9) H 07/07/22 03:38 INR 1.06 (0.87-1.13) 07/07/22 03:38 APTT 23.0 Sec. (24.2-36.6) L 07/07/22 03:38 D-Dimer 585.71 ng/mlDDU (0-234) H 07/10/22 04:21 ABG pH 7.450 pH Units (7.350-7.450) 07/10/22 04:55 ABG pCO2 33.3 mm Hg 07/10/22 04:55 ABG pO2 76.8 mm Hg (80.0-90.0) L 07/10/22 04:55 ABG HCO3 22.6 mmol/L (20.0-26.0) 07/10/22 04:55 ABG O2 Saturation 96.0 % (95.0-99.0) 07/10/22 04:55 ABG O2 Content 13.9 (0.0-44) 07/10/22 04:55 ABG Base Excess -0.9 mmol/L (-2.0-3.0) 07/10/22 04:55 ABG Hemoglobin 10.4 gm/dl (12.0-16.0) L 07/10/22 04:55 ABG Carboxyhemoglobin 0.8 % (0.0-5.0) 07/10/22 04:55 ABG Methemoglobin 0.8 % (0.0-1.5) 07/10/22 04:55 Oxyhemoglobin 94.5 % (95.0-99.0) L 07/10/22 04:55 FiO2 45 % 07/10/22 04:55 Sodium 150 mmol/L (137-145) H 07/10/22 04:21 Potassium 4.3 mmol/L (3.6-5.0) 07/10/22 04:21 Chloride 115.0 mmol/L (98-107) H 07/10/22 04:21 Carbon Dioxide 25 mmol/L (22-30) 07/10/22 04:21 Anion Gap 14 mmol/L 07/10/22 04:21 BUN 16 mg/dL (7-17) 07/10/22 04:21 Creatinine 0.6 mg/dL (0.6-1.2) 07/10/22 04:21 Estimated GFR > 60 ml/min 07/10/22 04:21 BUN/Creatinine Ratio 27 % 07/10/22 04:21 Glucose 178 mg/dL (65-100) H 07/10/22 04:21 POC Glucose 147 mg/dL (70-105) H 07/10/22 05:26 Lactic Acid 2.10 mmol/L (0.7-2.0) H* 07/10/22 08:24 Uric Acid 13.5 mg/dL (3.5-7.6) H 07/07/22 04:17 Calcium 8.6 mg/dL (8.4-10.2) 07/10/22 04:21 Magnesium 3.30 mg/dL (1.7-2.3) H 07/07/22 03:38 Ferritin 631.3 ng/mL (10.0-200.0) H 07/10/22 04:21 Total Bilirubin 0.30 mg/dL (0.1-1.2) 07/10/22 04:21 AST 89 units/L (5-40) H 07/10/22 04:21 ALT 53 units/L (7-56) 07/10/22 04:21 Alkaline Phosphatase 83 units/L (35-129) 07/10/22 04:21 Ammonia 32.0 umol/L (25-60) 07/07/22 04:17 Lactate Dehydrogenase 431 units/L (91-180) H 07/10/22 04:21 Total Creatine Kinase 2335 units/L (30-135) H 07/08/22 14:54 Troponin T 0.010 ng/mL (0.00-0.029) 07/07/22 04:17 C-Reactive Protein 0.60 mg/dL (0.00-1.30) 07/10/22 04:21 Total Protein 4.9 g/dL (6.3-8.2) L 07/10/22 04:21 Albumin 2.5 g/dL (3.9-5) L 07/10/22 04:21 Albumin/Globulin Ratio 1.0 % 07/10/22 04:21 Procalcitonin 0.19 ng/mL (<0.15) 07/08/22 14:54 TSH 12.790 mlU/mL (0.270-4.200) H 07/07/22 04:17 Free T4 0.78 ng/dL (0.76-1.46) 07/07/22 04:17 Urine Color Yellow (Yellow) 07/07/22 03:17 Urine Turbidity Slightly cloudy (Clear) 07/07/22 03:17 Specific Blanchard (Man) 1.015 (1.003-1.030) 07/07/22 03:17 Ur Protein (Man) 1+ mg/dL (Negative) 07/07/22 03:17 Ur Ketones (Man) Negative (Negative) 07/07/22 03:17 Ur Nitrite (Man) Negative (Negative) 07/07/22 03:17 Urine Bilirubin (Man) Negative (Negative) 07/07/22 03:17 Leukocyte Esterase (Man) Negative (Negative) 07/07/22 03:17 Urine WBC (Auto) 7.0 /HPF (0.0-6.0) H 07/07/22 03:17 Urine RBC (Auto) 1.0 /HPF (0.0-6.0) 07/07/22 03:17 U Epithel Cells (Auto) 4.0 /HPF (0-13.0) 07/07/22 03:17 Urine Bacteria (Auto) 3+ /HPF (Negative) 07/07/22 03:17 Urine RBC (Manual) 3+ (Negative) 07/07/22 03:17 Urine Mucus 3+ /HPF 07/07/22 03:17 Urine Osmolality 744 Mosm/kg 07/07/22 16:45 Urine Creatinine 92.9 mg/dL (0.1-20.0) H 07/07/22 16:45 Urine Sodium 109 mmol/L 07/07/22 16:45 Salicylates < 0.3 mg/dL (2.8-20.0) L 07/07/22 03:38 Urine Opiates Screen Presumptive negative 07/07/22 03:17 Urine Methadone Screen Presumptive negative 07/07/22 03:17 Acetaminophen 5.0 ug/mL (10.0-30.0) L 07/07/22 03:38 Ur Barbiturates Screen Presumptive negative 07/07/22 03:17 Valproic Acid 7.0 ug/mL (50-100) L 07/07/22 03:38 Ur Phencyclidine Scrn Presumptive negative 07/07/22 03:17 Ur Amphetamines Screen Presumptive negative 07/07/22 03:17 U Benzodiazepines Scrn Presumptive negative 07/07/22 03:17 Urine Cocaine Screen Presumptive negative 07/07/22 03:17 U Marijuana (THC) Screen Presumptive negative 07/07/22 03:17 Drugs of Abuse Note Disclamer 07/07/22 03:17 Plasma/Serum Alcohol < 0.01 % (0-0.07) 07/07/22 03:38 SARS-CoV-2 (PCR) Positive (Negative) A 07/07/22 15:00 Microbiology: Microbiology 07/07/22 03:38 Peripheral/Venous Blood Culture - Preliminary NO GROWTH AFTER 72 HOURS 07/07/22 03:45 Peripheral/Venous Blood Culture - Preliminary NO GROWTH AFTER 72 HOURS [place]/IV: Voiding Method Indwelling Catheter Active Medications - Current Medications Current Medications: Generic Name Dose Route Start Last Admin Trade Name Freq PRN Reason Stop Dose Admin Acetaminophen 650 mg 07/07/22 12:09 Acetaminophen 650 Mg Rect Supp OH Q6H PRN Pain MILD(1-3)/Fever >100.5/LEE Atorvastatin Calcium 80 mg 07/10/22 22:00 Atorvastatin 40 Mg Tab FEEDTUBE QHS ERROL Cholecalciferol 1,000 unit 07/10/22 10:00 07/10/22 11:13 Cholecalciferol (Vit D3) 1000 Unit (25 Mcg) Tab FEEDTUBE 07/16/22 10:01 1,000 unit QDAY ERROL Administration Dexamethasone 6 mg 07/08/22 10:00 07/10/22 09:20 Dexamethasone 4 Mg/Ml Vial IV 07/17/22 10:01 6 mg Q24HR ERROL Administration Dextrose 50 ml 07/09/22 11:42 Dextrose 50% In Water (25gm) 50 Ml Syringe IV Q30MIN PRN Hypoglycemia Protocol Famotidine 20 mg 07/09/22 22:00 07/10/22 09:21 Famotidine 20 Mg Tab FEEDTUBE 20 mg BID ERROL Administration Heparin Sodium (Porcine) 5,000 unit 07/08/22 06:00 07/10/22 05:10 Heparin 5,000 Unit/1 Ml Vial SUB-Q 5,000 unit Q12H ERROL Administration Hydrophilic Ointment 1 applic 07/07/22 02:48 Lip Therapy Vaseline TP Q2HR PRN Dry Lips Remdesivir 100 mg/ Sodium 250 mls @ 500 mls/hr 07/08/22 14:00 07/09/22 16:11 Chloride IV 07/11/22 14:29 Infused Q24HR@1400 ERROL Infusion Ceftriaxone Sodium 2 gm in 100 mls @ 200 mls/hr 07/08/22 17:00 07/09/22 17:42 Rocephin/Ns 2 Gm/100 Ml IV 200 mls/hr Q24H ERROL Administration Protocol Dextrose 1,000 mls @ 100 mls/hr 07/09/22 10:00 07/10/22 05:34 D5w IV 100 mls/hr DIRECT ERROL Administration Insulin Human Lispro 0 unit 07/09/22 12:00 07/10/22 11:39 Insulin Lispro 100 Unit/Ml SUB-Q 1 unit Q6HR ERROL Administration Protocol Levothyroxine Sodium 75 mcg 07/11/22 06:00 Levothyroxine 75 Mcg Tab FEEDTUBE QAM@0600 ERROL Multi-Ingred Cream/Lotion/Oil/Oint 1 applic 07/07/22 02:48 Mineral Oil/Petrolatum, White Ophth Oint 3.5 Gm OU Q4HR PRN Dry Eye(s) Senna/Docusate Sodium 1 tab 07/07/22 10:00 07/10/22 09:20 Sennosides/Docusate Sodium 8.6/50 Mg Tab FEEDTUBE 1 tab BID ERROL Administration Sodium Chloride 10 ml 07/07/22 13:00 07/10/22 09:21 Sodium Chloride 0.9% 10 Ml Flush Syringe IV 10 ml BID ERROL Administration Sodium Chloride 10 ml 07/07/22 12:09 Sodium Chloride 0.9% 10 Ml Flush Syringe IV PRN PRN LINE FLUSH Sodium Chloride 50 ml 07/08/22 14:00 07/09/22 16:12 Sodium Chloride 0.9% 50 Ml Ivpb IV 07/12/22 14:01 50 ml Q24HR@1400 ERROL Administration Valproic Acid 250 mg 07/10/22 22:00 Valproic Acid 250 Mg/5 Ml Oral Liqd FEEDTUBE Q12H [facility] Nutrition/Malnutrition Assess - Dietary Evaluation Nutrition/Malnutrition Findings: Nutrition Notes Start: 07/07/22 13:24 Freq: Status: Active Protocol: Document 07/08/22 14:28 JESUS MANUELREUBEN (Rec: 07/08/22 14:39 [facility] [id number]) Nutrition Notes Need for Assessment generated from: MD Order,accounting 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 Pt remains intubated. Burn Absent Trauma Absent Minimum of two criteria No Fluid Accumulation Mild (non-severe) #1 Nutrition Diagnosis Inadequate oral intake Diagnosis Progress(for reassessment Continues documentation) Is patient on ventilator? Yes Is Patient Ambulatory and/or Out of Bed No REE-([place]-confined to bed) 1763.208 Kcal/Kg value to use for calculation 15 Approximate Energy Requirements Using 1429 kcal/Kg Calculation Used for Recommendations Kcal/kg Additional Notes Pro needs 1.3g/kg adjBW: 100g/ day Fluid needs per MD. Nutrition Intervention Nutrition Support: Nepro at 33ml/hr with 300ml water flush q4h. Kcal 1,426 Protein (gm) 64 Carbohydrates (gm) 128 Fat (gm) 76 Fluid (mL) 576 Fiber (gm) 10 Goal #1 TF tolerance Goal #2 TF to meet 70-80% energy and pro needs as best possible Follow-Up By: 07/10/22 Additional Comments F/U: new TF, vent status, Na and K labs, water flushes
--- NOTE | 2022-07-10 12:09 | Progress Note ---
<GEORGE DAVIS - Last Filed: 07/10/22 17:59> Assessment and Plan Assessment and plan: This is a 76-year-old female with CVA, pulmonary embolism, hypothyroidism and JUJU admitted with electrolyte imbalances, hypoxic respiratory failure and COVID- 19 pneumonia Hospital Course to Date: 07/08: Patient noted to be COVID-positive, started on remdesivir, Decadron, ceftriaxone azithromycin and infectious disease was consulted yesterday. This morning patient is on any sedation, PICC line to be placed. RT to attempt PSV. Started on free water flushes and tube feedings. Continues on D5 half-normal saline. 07/09: Patient remains encephalopathic, not on any sedation. Hypernatremia is improving, on FWF Q4hrs and D5w gtt per Nephro. If hypernatremia continue to improve and patient's mentation is unchanged, will get a repeat CT to r/o intracranial abnormalities. Patient remains afebrile, leukocytosis improved, and VSS. Continue current IV abx per ID. Patient failed PSV trial again today, trevon nue PSV trial as tolerated 07/10: Remains stable on the vent, tolerating PSV trial this am. sodium continue to improve but no change in mental status. D/w CCM will get MRI brain to r/o any intracranial abnormalities, EEG also ordered to r/o seizures. Continue FWF and D5w gtt per Nephro. Continue IV steroids and current IV abx per ID. Neuro: Acute metabolic encephalopathy, h/o CVA with hemiplegia, dysphagia, aphasia, dementia -Reorientation as needed -Maintain sleep-wake cycle -Resume home Lipitor -As needed analgesia -CT head shows no acute intracranial hemorrhage, multiple chronic appearing infarcts including left MCA distribution, left cerebral hemisphere and within the right basal ganglia -Depakene -MRI pending Cardiac: h/o HLD -Resume home Lipitor -Blood pressure monitoring per protocol Respiratory: Acute hypoxic respiratory failure, h/o JUJU, pulmonary embolism -CCM consulted, appreciate recommendations -Intubated on 07/07 with a 7.50 ETT at 24 the lips -A.m. vent settings:PSV- 30%, 6 PS-10 -See RT notes for titration -A.m. ABG and CXR noted -VAP bundle -SPO2 monitoring GI: NAD -PPI -NTR consulted for tube feedings -BR: Senokot-S : Hypernatremia, hypokalemia, rhabdomyolysis -Nephrology consulted, appreciate recommendations -Monitor intake and output -D5W gtt -Free water flush -BMP every 6 per nephrology -Renally dose medications -Avoid nephrotoxic medications -IVF with KCL, D5 -Replete potassium -Trend BMP ID: COVID-19 pneumonia, lactic acidosis -Infectious disease consulted, appreciate recommendation -Antibiotic therapy with Rocephin and Zithromax -Remdesivir for 5 days -Dexamethasone for 10 days -Procalcitonin and CRP pending -Contact/droplet precautions -f/u blood culture -Trend COVID-19 inflammatory markers -Monitor WBC and temperature curve -Prophylactic anticoagulation based on D-dimer per hospital protocol Heme: Thrombocytopenia -Patient presented with low plt -Plt continue to trend down, but less than 50% of admit count -No s/s of any active bleeding, H&H stable -Continue to trend CBC -On Heparin SubQ -Transfuse for plt less than 20 and hgb less than 7 Endo: h/o hypothyroidism -Avoid hypoglycemia -SSI -Accu-Cheks q. 6 -Long-acting insulin, titrate as needed -Resume home Synthroid GI/DVT Prophylaxis -PPI- pepcid -Heparin SubQ -SCDs to bilateral lower extremities while in bed The high probability of a clinically significant, sudden or life threatening deterioration of the [multi] system(s) required my full and direct attention, intervention and personal management. The aggregate critical care time was [60] minutes. This time is in addition to time spent performing reported procedures but includes the following: [x] Data Review and interpretation [x] Patient assessment and monitoring of vital signs [x] Documentation [x] Medication orders and management Disposition Plan: ICU Total Time Spent with Patient (Minutes): 60 History Interval history: Patient seen and examined at the bedside. Remains on the vent and uresponsive, not on any sedation. Pupils are round and reactive, with + gag/cough, withdrawal to painful stimuli. Patient is tolerating PSV trail this am. VSS. DELMI overnight Hospitalist Physical - Constitutional Vitals: Temp Pulse Resp BP Pulse Ox 97.5 F L 69 12 95/57 100 07/10/22 11:49 07/10/22 12:00 07/10/22 12:00 07/10/22 12:00 07/10/22 12:00 General appearance: Present: other (Intubated, unresponsive, not on any sedations) - EENT Eyes: Present: PERRL - Respiratory Respiratory effort: normal Respiratory: bilateral: rhonchi - Cardiovascular Rhythm: regular Heart Sounds: Present: S1 & S2 - Extremities Extremities: no ischemia, pulses intact, pulses symmetrical Extremity abnormal: edema - Peripheral Assessment Generalized Edema Type: Non-pitting Edema Degree: 2+ Capillary Refill: < 3 seconds Skin Temperature: Warm Peripheral Pulses: within normal limits - Abdominal General gastrointestinal: soft, non-distended, normal bowel sounds - Integumentary Integumentary: Present: warm, dry - Psychiatric Psychiatric: other (Intubated, unresponsive, not on any sedations) - Neurologic Neurologic: other (Intubated, unresponsive, not on any sedations. Only withdrawal from painful stimuli) - Allied Health Allied health notes reviewed: nursing, case management HEART Score - HEART Score Troponin: Troponin T 0.010 ng/mL (0.00-0.029) 07/07/22 04:17 Results - Labs CBC & Chem 7: 07/10/22 04:21 07/10/22 04:21 Labs: Laboratory Last Values WBC 11.8 K/mm3 (4.5-11.0) H 07/10/22 04:21 RBC 3.52 M/mm3 (3.65-5.03) L 07/10/22 04:21 Hgb 11.7 gm/dl (10.1-14.3) 07/10/22 04:21 Hct 35.0 % (30.3-42.9) 07/10/22 04:21 MCV 99 fl (79-97) H 07/10/22 04:21 MCH 33 pg (28-32) H 07/10/22 04:21 MCHC 33 % (30-34) 07/10/22 04:21 RDW 14.6 % (13.2-15.2) 07/10/22 04:21 Plt Count 67 K/mm3 (140-440) L 07/10/22 04:21 Lymph % (Auto) 15.2 % (13.4-35.0) 07/08/22 14:54 Moore % (Auto) 2.7 % (0.0-7.3) 07/08/22 14:54 Eos % (Auto) 0.0 % (0.0-4.3) 07/08/22 14:54 Baso % (Auto) 0.1 % (0.0-1.8) 07/08/22 14:54 Lymph # (Auto) 1.7 K/mm3 (1.2-5.4) 07/08/22 14:54 Moore # (Auto) 0.3 K/mm3 (0.0-0.8) 07/08/22 14:54 Eos # (Auto) 0.0 K/mm3 (0.0-0.4) 07/08/22 14:54 Baso # (Auto) 0.0 K/mm3 (0.0-0.1) 07/08/22 14:54 Seg Neutrophils % 82.0 % (40.0-70.0) H 07/08/22 14:54 Seg Neutrophils # 9.1 K/mm3 (1.8-7.7) H 07/08/22 14:54 PT 15.0 Sec. (12.2-14.9) H 07/07/22 03:38 INR 1.06 (0.87-1.13) 07/07/22 03:38 APTT 23.0 Sec. (24.2-36.6) L 07/07/22 03:38 D-Dimer 585.71 ng/mlDDU (0-234) H 07/10/22 04:21 ABG pH 7.450 pH Units (7.350-7.450) 07/10/22 04:55 ABG pCO2 33.3 mm Hg 07/10/22 04:55 ABG pO2 76.8 mm Hg (80.0-90.0) L 07/10/22 04:55 ABG HCO3 22.6 mmol/L (20.0-26.0) 07/10/22 04:55 ABG O2 Saturation 96.0 % (95.0-99.0) 07/10/22 04:55 ABG O2 Content 13.9 (0.0-44) 07/10/22 04:55 ABG Base Excess -0.9 mmol/L (-2.0-3.0) 07/10/22 04:55 ABG Hemoglobin 10.4 gm/dl (12.0-16.0) L 07/10/22 04:55 ABG Carboxyhemoglobin 0.8 % (0.0-5.0) 07/10/22 04:55 ABG Methemoglobin 0.8 % (0.0-1.5) 07/10/22 04:55 Oxyhemoglobin 94.5 % (95.0-99.0) L 07/10/22 04:55 FiO2 45 % 07/10/22 04:55 Sodium 150 mmol/L (137-145) H 07/10/22 04:21 Potassium 4.3 mmol/L (3.6-5.0) 07/10/22 04:21 Chloride 115.0 mmol/L (98-107) H 07/10/22 04:21 Carbon Dioxide 25 mmol/L (22-30) 07/10/22 04:21 Anion Gap 14 mmol/L 07/10/22 04:21 BUN 16 mg/dL (7-17) 07/10/22 04:21 Creatinine 0.6 mg/dL (0.6-1.2) 07/10/22 04:21 Estimated GFR > 60 ml/min 07/10/22 04:21 BUN/Creatinine Ratio 27 % 07/10/22 04:21 Glucose 178 mg/dL (65-100) H 07/10/22 04:21 POC Glucose 147 mg/dL (70-105) H 07/10/22 05:26 Lactic Acid 2.10 mmol/L (0.7-2.0) H* 07/10/22 08:24 Uric Acid 13.5 mg/dL (3.5-7.6) H 07/07/22 04:17 Calcium 8.6 mg/dL (8.4-10.2) 07/10/22 04:21 Magnesium 3.30 mg/dL (1.7-2.3) H 07/07/22 03:38 Ferritin 631.3 ng/mL (10.0-200.0) H 07/10/22 04:21 Total Bilirubin 0.30 mg/dL (0.1-1.2) 07/10/22 04:21 AST 89 units/L (5-40) H 07/10/22 04:21 ALT 53 units/L (7-56) 07/10/22 04:21 Alkaline Phosphatase 83 units/L (35-129) 07/10/22 04:21 Ammonia 32.0 umol/L (25-60) 07/07/22 04:17 Lactate Dehydrogenase 431 units/L (91-180) H 07/10/22 04:21 Total Creatine Kinase 2335 units/L (30-135) H 07/08/22 14:54 Troponin T 0.010 ng/mL (0.00-0.029) 07/07/22 04:17 C-Reactive Protein 0.60 mg/dL (0.00-1.30) 07/10/22 04:21 Total Protein 4.9 g/dL (6.3-8.2) L 07/10/22 04:21 Albumin 2.5 g/dL (3.9-5) L 07/10/22 04:21 Albumin/Globulin Ratio 1.0 % 07/10/22 04:21 Procalcitonin 0.19 ng/mL (<0.15) 07/08/22 14:54 TSH 12.790 mlU/mL (0.270-4.200) H 07/07/22 04:17 Free T4 0.78 ng/dL (0.76-1.46) 07/07/22 04:17 Urine Color Yellow (Yellow) 07/07/22 03:17 Urine Turbidity Slightly cloudy (Clear) 07/07/22 03:17 Specific Campbell (Man) 1.015 (1.003-1.030) 07/07/22 03:17 Ur Protein (Man) 1+ mg/dL (Negative) 07/07/22 03:17 Ur Ketones (Man) Negative (Negative) 07/07/22 03:17 Ur Nitrite (Man) Negative (Negative) 07/07/22 03:17 Urine Bilirubin (Man) Negative (Negative) 07/07/22 03:17 Leukocyte Esterase (Man) Negative (Negative) 07/07/22 03:17 Urine WBC (Auto) 7.0 /HPF (0.0-6.0) H 07/07/22 03:17 Urine RBC (Auto) 1.0 /HPF (0.0-6.0) 07/07/22 03:17 U Epithel Cells (Auto) 4.0 /HPF (0-13.0) 07/07/22 03:17 Urine Bacteria (Auto) 3+ /HPF (Negative) 07/07/22 03:17 Urine RBC (Manual) 3+ (Negative) 07/07/22 03:17 Urine Mucus 3+ /HPF 07/07/22 03:17 Urine Osmolality 744 Mosm/kg 07/07/22 16:45 Urine Creatinine 92.9 mg/dL (0.1-20.0) H 07/07/22 16:45 Urine Sodium 109 mmol/L 07/07/22 16:45 Salicylates < 0.3 mg/dL (2.8-20.0) L 07/07/22 03:38 Urine Opiates Screen Presumptive negative 07/07/22 03:17 Urine Methadone Screen Presumptive negative 07/07/22 03:17 Acetaminophen 5.0 ug/mL (10.0-30.0) L 07/07/22 03:38 Ur Barbiturates Screen Presumptive negative 07/07/22 03:17 Valproic Acid 7.0 ug/mL (50-100) L 07/07/22 03:38 Ur Phencyclidine Scrn Presumptive negative 07/07/22 03:17 Ur Amphetamines Screen Presumptive negative 07/07/22 03:17 U Benzodiazepines Scrn Presumptive negative 07/07/22 03:17 Urine Cocaine Screen Presumptive negative 07/07/22 03:17 U Marijuana (THC) Screen Presumptive negative 07/07/22 03:17 Drugs of Abuse Note Disclamer 07/07/22 03:17 Plasma/Serum Alcohol < 0.01 % (0-0.07) 07/07/22 03:38 SARS-CoV-2 (PCR) Positive (Negative) A 07/07/22 15:00 Microbiology: Microbiology 07/07/22 03:38 Peripheral/Venous Blood Culture - Preliminary NO GROWTH AFTER 72 HOURS 07/07/22 03:45 Peripheral/Venous Blood Culture - Preliminary NO GROWTH AFTER 72 HOURS Medina/IV: Voiding Method Indwelling Catheter Active Medications - Current Medications Current Medications: Generic Name Dose Route Start Last Admin Trade Name Freq PRN Reason Stop Dose Admin Acetaminophen 650 mg 07/07/22 12:09 Acetaminophen 650 Mg Rect Supp ND Q6H PRN Pain MILD(1-3)/Fever >100.5/LEE Atorvastatin Calcium 80 mg 07/10/22 22:00 Atorvastatin 40 Mg Tab FEEDTUBE QHS ERROL Cholecalciferol 1,000 unit 07/10/22 10:00 07/10/22 11:13 Cholecalciferol (Vit D3) 1000 Unit (25 Mcg) Tab FEEDTUBE 07/16/22 10:01 1,000 unit QDAY ERROL Administration Dexamethasone 6 mg 07/08/22 10:00 07/10/22 09:20 Dexamethasone 4 Mg/Ml Vial IV 07/17/22 10:01 6 mg Q24HR ERROL Administration Dextrose 50 ml 07/09/22 11:42 Dextrose 50% In Water (25gm) 50 Ml Syringe IV Q30MIN PRN Hypoglycemia Protocol Famotidine 20 mg 07/09/22 22:00 07/10/22 09:21 Famotidine 20 Mg Tab FEEDTUBE 20 mg BID ERROL Administration Heparin Sodium (Porcine) 5,000 unit 07/08/22 06:00 07/10/22 05:10 Heparin 5,000 Unit/1 Ml Vial SUB-Q 5,000 unit Q12H ERROL Administration Hydrophilic Ointment 1 applic 07/07/22 02:48 Lip Therapy Vaseline TP Q2HR PRN Dry Lips Remdesivir 100 mg/ Sodium 250 mls @ 500 mls/hr 07/08/22 14:00 07/09/22 16:11 Chloride IV 07/11/22 14:29 Infused Q24HR@1400 ERROL Infusion Ceftriaxone Sodium 2 gm in 100 mls @ 200 mls/hr 07/08/22 17:00 07/09/22 17:42 Rocephin/Ns 2 Gm/100 Ml IV 200 mls/hr Q24H ERROL Administration Protocol Dextrose 1,000 mls @ 100 mls/hr 07/09/22 10:00 07/10/22 05:34 D5w IV 100 mls/hr DIRECT ERROL Administration Insulin Human Lispro 0 unit 07/09/22 12:00 07/10/22 11:39 Insulin Lispro 100 Unit/Ml SUB-Q 1 unit Q6HR ERROL Administration Protocol Levothyroxine Sodium 75 mcg 07/11/22 06:00 Levothyroxine 75 Mcg Tab FEEDTUBE QAM@0600 ERROL Multi-Ingred Cream/Lotion/Oil/Oint 1 applic 07/07/22 02:48 Mineral Oil/Petrolatum, White Ophth Oint 3.5 Gm OU Q4HR PRN Dry Eye(s) Senna/Docusate Sodium 1 tab 07/07/22 10:00 07/10/22 09:20 Sennosides/Docusate Sodium 8.6/50 Mg Tab FEEDTUBE 1 tab BID ERROL Administration Sodium Chloride 10 ml 07/07/22 13:00 07/10/22 09:21 Sodium Chloride 0.9% 10 Ml Flush Syringe IV 10 ml BID ERROL Administration Sodium Chloride 10 ml 07/07/22 12:09 Sodium Chloride 0.9% 10 Ml Flush Syringe IV PRN PRN LINE FLUSH Sodium Chloride 50 ml 07/08/22 14:00 07/09/22 16:12 Sodium Chloride 0.9% 50 Ml Ivpb IV 07/12/22 14:01 50 ml Q24HR@1400 ERROL Administration Valproic Acid 250 mg 07/10/22 22:00 Valproic Acid 250 Mg/5 Ml Oral Liqd FEEDTUBE Q12H ERROL Nutrition/Malnutrition Assess - Dietary Evaluation Nutrition/Malnutrition Findings: Nutrition Notes Start: 07/07/22 13:24 Freq: Status: Active Protocol: Document 07/08/22 14:28 CARI (Rec: 07/08/22 14:39 [facility] [id number]) Nutrition Notes Need for Assessment generated from: MD Order,executive director of marketing,MST Initial or Follow up Reassessment Current Diagnosis Respiratory Failure,Stroke Other Pertinent Diagnosis COVID-19 (+), acute metabolic encephalopathy, rhabdomyolysis Current Diet NPO Labs/Tests Na 163 K 6.3 BUN 42 BG 169 Pertinent Medications D5 1/2 NS at 100ml/hr, Vit D3, Decadron Height 5 ft 6 in Weight 95.254 kg [place] Body Weight (kg) 59.09 BMI 33.9 Weight Status Obese Subjective/Other Information RD consulted for TF; pt also screened for malnutrition and skin risks (Markus score: 12). Pt remains intubated. Burn Absent Trauma Absent Minimum of two criteria No Fluid Accumulation Mild (non-severe) #1 Nutrition Diagnosis Inadequate oral intake Diagnosis Progress(for reassessment Continues documentation) Is patient on ventilator? Yes Is Patient Ambulatory and/or Out of Bed No REE-([place]-confined to bed) 1763.208 Kcal/Kg value to use for calculation 15 Approximate Energy Requirements Using 1429 kcal/Kg Calculation Used for Recommendations Kcal/kg Additional Notes Pro needs 1.3g/kg adjBW: 100g/ day Fluid needs per MD. Nutrition Intervention Nutrition Support: Nepro at 33ml/hr with 300ml water flush q4h. Kcal 1,426 Protein (gm) 64 Carbohydrates (gm) 128 Fat (gm) 76 Fluid (mL) 576 Fiber (gm) 10 Goal #1 TF tolerance Goal #2 TF to meet 70-80% energy and pro needs as best possible Follow-Up By: 07/10/22 Additional Comments F/U: new TF, vent status, Na and K labs, water flushes <ANAHI ANGELES - Last Filed: 07/11/22 07:28> Assessment and Plan Assessment and plan: I saw and evaluated the patient. I agree with the findings and the plan of care as documented in the Nurse Practitioner's~note, with the following corrections and additions. Hospitalist Physical - Constitutional Vitals: Temp Pulse Resp BP Pulse Ox 97.7 F 96 H 16 136/86 98 07/11/22 04:00 07/11/22 06:00 07/11/22 06:00 07/11/22 06:00 07/11/22 06:00 HEART Score - HEART Score Troponin: Troponin T 0.010 ng/mL (0.00-0.029) 07/07/22 04:17 Results - Labs CBC & Chem 7: 07/11/22 04:00 07/11/22 05:40 Labs: Laboratory Last Values WBC 11.2 K/mm3 (4.5-11.0) H 07/11/22 04:00 RBC 3.74 M/mm3 (3.65-5.03) 07/11/22 04:00 Hgb 11.9 gm/dl (10.1-14.3) 07/11/22 04:00 Hct 37.2 % (30.3-42.9) 07/11/22 04:00 MCV 99 fl (79-97) H 07/11/22 04:00 MCH 32 pg (28-32) 07/11/22 04:00 MCHC 32 % (30-34) 07/11/22 04:00 RDW 13.8 % (13.2-15.2) 07/11/22 04:00 Plt Count 73 K/mm3 (140-440) L 07/11/22 04:00 Lymph % (Auto) 15.2 % (13.4-35.0) 07/08/22 14:54 Moore % (Auto) 2.7 % (0.0-7.3) 07/08/22 14:54 Eos % (Auto) 0.0 % (0.0-4.3) 07/08/22 14:54 Baso % (Auto) 0.1 % (0.0-1.8) 07/08/22 14:54 Lymph # (Auto) 1.7 K/mm3 (1.2-5.4) 07/08/22 14:54 Moore # (Auto) 0.3 K/mm3 (0.0-0.8) 07/08/22 14:54 Eos # (Auto) 0.0 K/mm3 (0.0-0.4) 07/08/22 14:54 Baso # (Auto) 0.0 K/mm3 (0.0-0.1) 07/08/22 14:54 Seg Neutrophils % 82.0 % (40.0-70.0) H 07/08/22 14:54 Seg Neutrophils # 9.1 K/mm3 (1.8-7.7) H 07/08/22 14:54 PT 15.0 Sec. (12.2-14.9) H 07/07/22 03:38 INR 1.06 (0.87-1.13) 07/07/22 03:38 APTT 23.0 Sec. (24.2-36.6) L 07/07/22 03:38 D-Dimer 585.71 ng/mlDDU (0-234) H 07/10/22 04:21 ABG pH 7.420 pH Units (7.350-7.450) 07/11/22 04:15 ABG pCO2 39.9 mm Hg 07/11/22 04:15 ABG pO2 107.4 mm Hg (80.0-90.0) H 07/11/22 04:15 ABG HCO3 25.3 mmol/L (20.0-26.0) 07/11/22 04:15 ABG O2 Saturation 97.9 % (95.0-99.0) 07/11/22 04:15 ABG O2 Content 17.0 (0.0-44) 07/11/22 04:15 ABG Base Excess 0.8 mmol/L (-2.0-3.0) 07/11/22 04:15 ABG Hemoglobin 12.5 gm/dl (12.0-16.0) 07/11/22 04:15 ABG Carboxyhemoglobin 0.9 % (0.0-5.0) 07/11/22 04:15 ABG Methemoglobin 0.7 % (0.0-1.5) 07/11/22 04:15 Oxyhemoglobin 96.3 % (95.0-99.0) 07/11/22 04:15 FiO2 30 % 07/11/22 04:15 Sodium 144 mmol/L (137-145) 07/11/22 05:40 Potassium 4.2 mmol/L (3.6-5.0) 07/11/22 05:40 Chloride 109.8 mmol/L (98-107) H 07/11/22 05:40 Carbon Dioxide 26 mmol/L (22-30) 07/11/22 05:40 Anion Gap 12 mmol/L 07/11/22 05:40 BUN 14 mg/dL (7-17) 07/11/22 05:40 Creatinine 0.5 mg/dL (0.6-1.2) L 07/11/22 05:40 Estimated GFR > 60 ml/min 07/11/22 05:40 BUN/Creatinine Ratio 28 % 07/11/22 05:40 Glucose 160 mg/dL (65-100) H 07/11/22 05:40 POC Glucose 195 mg/dL (70-105) H 07/10/22 23:57 Lactic Acid 2.10 mmol/L (0.7-2.0) H* 07/10/22 08:24 Uric Acid 13.5 mg/dL (3.5-7.6) H 07/07/22 04:17 Calcium 8.3 mg/dL (8.4-10.2) L 07/11/22 05:40 Magnesium 3.30 mg/dL (1.7-2.3) H 07/07/22 03:38 Ferritin 631.3 ng/mL (10.0-200.0) H 07/10/22 04:21 Total Bilirubin 0.30 mg/dL (0.1-1.2) 07/10/22 04:21 AST 89 units/L (5-40) H 07/10/22 04:21 ALT 53 units/L (7-56) 07/10/22 04:21 Alkaline Phosphatase 83 units/L (35-129) 07/10/22 04:21 Ammonia 32.0 umol/L (25-60) 07/07/22 04:17 Lactate Dehydrogenase 431 units/L (91-180) H 07/10/22 04:21 Total Creatine Kinase 1745 units/L (30-135) H 07/11/22 05:40 Troponin T 0.010 ng/mL (0.00-0.029) 07/07/22 04:17 C-Reactive Protein 0.60 mg/dL (0.00-1.30) 07/10/22 04:21 Total Protein 4.9 g/dL (6.3-8.2) L 07/10/22 04:21 Albumin 2.5 g/dL (3.9-5) L 07/10/22 04:21 Albumin/Globulin Ratio 1.0 % 07/10/22 04:21 Procalcitonin 0.19 ng/mL (<0.15) 07/08/22 14:54 TSH 12.790 mlU/mL (0.270-4.200) H 07/07/22 04:17 Free T4 0.78 ng/dL (0.76-1.46) 07/07/22 04:17 Total Cortisol 47.9 mcg/dL () 07/07/22 07:43 Urine Color Yellow (Yellow) 07/07/22 03:17 Urine Turbidity Slightly cloudy (Clear) 07/07/22 03:17 Specific Campbell (Man) 1.015 (1.003-1.030) 07/07/22 03:17 Ur Protein (Man) 1+ mg/dL (Negative) 07/07/22 03:17 Ur Ketones (Man) Negative (Negative) 07/07/22 03:17 Ur Nitrite (Man) Negative (Negative) 07/07/22 03:17 Urine Bilirubin (Man) Negative (Negative) 07/07/22 03:17 Leukocyte Esterase (Man) Negative (Negative) 07/07/22 03:17 Urine WBC (Auto) 7.0 /HPF (0.0-6.0) H 07/07/22 03:17 Urine RBC (Auto) 1.0 /HPF (0.0-6.0) 07/07/22 03:17 U Epithel Cells (Auto) 4.0 /HPF (0-13.0) 07/07/22 03:17 Urine Bacteria (Auto) 3+ /HPF (Negative) 07/07/22 03:17 Urine RBC (Manual) 3+ (Negative) 07/07/22 03:17 Urine Mucus 3+ /HPF 07/07/22 03:17 Urine Osmolality 744 Mosm/kg 07/07/22 16:45 Urine Creatinine 92.9 mg/dL (0.1-20.0) H 07/07/22 16:45 Urine Sodium 109 mmol/L 07/07/22 16:45 Salicylates < 0.3 mg/dL (2.8-20.0) L 07/07/22 03:38 Urine Opiates Screen Presumptive negative 07/07/22 03:17 Urine Methadone Screen Presumptive negative 07/07/22 03:17 Acetaminophen 5.0 ug/mL (10.0-30.0) L 07/07/22 03:38 Ur Barbiturates Screen Presumptive negative 07/07/22 03:17 Valproic Acid 7.0 ug/mL (50-100) L 07/07/22 03:38 Ur Phencyclidine Scrn Presumptive negative 07/07/22 03:17 Ur Amphetamines Screen Presumptive negative 07/07/22 03:17 U Benzodiazepines Scrn Presumptive negative 07/07/22 03:17 Urine Cocaine Screen Presumptive negative 07/07/22 03:17 U Marijuana (THC) Screen Presumptive negative 07/07/22 03:17 Drugs of Abuse Note Disclamer 07/07/22 03:17 Plasma/Serum Alcohol < 0.01 % (0-0.07) 07/07/22 03:38 SARS-CoV-2 (PCR) Positive (Negative) A 07/07/22 15:00 Microbiology: Microbiology 07/07/22 03:38 Peripheral/Venous Blood Culture - Preliminary NO GROWTH AFTER 4 DAYS 07/07/22 03:45 Peripheral/Venous Blood Culture - Preliminary NO GROWTH AFTER 4 DAYS 07/07/22 Unknown Tracheal Aspirate Sputum Culture - Final Klebsiella Pneumoniae Medina/IV: Voiding Method Indwelling Catheter Active Medications - Current Medications Current Medications: Generic Name Dose Route Start Last Admin Trade Name Freq PRN Reason Stop Dose Admin Acetaminophen 650 mg 07/07/22 12:09 Acetaminophen 650 Mg Rect Supp ND Q6H PRN Pain MILD(1-3)/Fever >100.5/LEE Atorvastatin Calcium 80 mg 07/10/22 22:00 07/10/22 22:51 Atorvastatin 40 Mg Tab FEEDTUBE 80 mg QHS ERROL Administration Cholecalciferol 1,000 unit 07/10/22 10:00 07/10/22 11:13 Cholecalciferol (Vit D3) 1000 Unit (25 Mcg) Tab FEEDTUBE 07/16/22 10:01 1,000 unit QDAY ERROL Administration Dexamethasone 6 mg 07/08/22 10:00 07/10/22 09:20 Dexamethasone 4 Mg/Ml Vial IV 07/17/22 10:01 6 mg Q24HR ERROL Administration Dextrose 50 ml 07/09/22 11:42 Dextrose 50% In Water (25gm) 50 Ml Syringe IV Q30MIN PRN Hypoglycemia Protocol Famotidine 20 mg 07/09/22 22:00 07/10/22 22:52 Famotidine 20 Mg Tab FEEDTUBE 20 mg BID ERROL Administration Heparin Sodium (Porcine) 5,000 unit 07/08/22 06:00 07/11/22 06:15 Heparin 5,000 Unit/1 Ml Vial SUB-Q 5,000 unit Q12H ERROL Administration Hydrophilic Ointment 1 applic 07/07/22 02:48 Lip Therapy Vaseline TP Q2HR PRN Dry Lips Remdesivir 100 mg/ Sodium 250 mls @ 500 mls/hr 07/08/22 14:00 07/10/22 14:13 Chloride IV 07/11/22 14:29 Infused Q24HR@1400 ERROL Infusion Ceftriaxone Sodium 2 gm in 100 mls @ 200 mls/hr 07/08/22 17:00 07/10/22 18:03 Rocephin/Ns 2 Gm/100 Ml IV 200 mls/hr Q24H ERROL Administration Protocol Dextrose 1,000 mls @ 100 mls/hr 07/09/22 10:00 07/10/22 17:29 D5w IV 100 mls/hr DIRECT ERROL Infusion Insulin Human Lispro 0 unit 07/09/22 12:00 07/11/22 06:15 Insulin Lispro 100 Unit/Ml SUB-Q Not Given Q6HR ERROL Protocol Levothyroxine Sodium 75 mcg 07/11/22 06:00 07/11/22 06:16 Levothyroxine 75 Mcg Tab FEEDTUBE 75 mcg QAM@0600 ERROL Administration Multi-Ingred Cream/Lotion/Oil/Oint 1 applic 07/07/22 02:48 Mineral Oil/Petrolatum, White Ophth Oint 3.5 Gm OU Q4HR PRN Dry Eye(s) Senna/Docusate Sodium 1 tab 07/07/22 10:00 07/10/22 22:52 Sennosides/Docusate Sodium 8.6/50 Mg Tab FEEDTUBE 1 tab BID ERROL Administration Sodium Chloride 10 ml 07/07/22 13:00 07/10/22 22:53 Sodium Chloride 0.9% 10 Ml Flush Syringe IV 10 ml BID ERROL Administration Sodium Chloride 10 ml 07/07/22 12:09 Sodium Chloride 0.9% 10 Ml Flush Syringe IV PRN PRN LINE FLUSH Sodium Chloride 50 ml 07/08/22 14:00 07/10/22 13:45 Sodium Chloride 0.9% 50 Ml Ivpb IV 07/12/22 14:01 50 ml Q24HR@1400 ERROL Administration Valproic Acid 250 mg 07/10/22 22:00 07/10/22 22:50 Valproic Acid 250 Mg/5 Ml Oral Liqd FEEDTUBE 250 mg Q12H ERROL Administration Nutrition/Malnutrition Assess - Dietary Evaluation Nutrition/Malnutrition Findings: Nutrition Notes Start: 07/07/22 13:24 Freq: Status: Active Protocol: Document 07/10/22 11:40 DAREN (Rec: 07/10/22 12:34 DAREN [id number]) Nutrition Notes Initial or Follow up Reassessment Current Diagnosis Respiratory Failure,Stroke, Hyperlipidemia Other Pertinent Diagnosis COVID-19/Pneumonia, Metabolic Encephalopathy, Hypernatremia, Thrombocytopen Current Diet TF-Vital AF 1.2 Jameson @ 55 ml/hr (from D 07/10). Labs/Tests 07/10: Na 150, CL 115.0, Glu 178. Pertinent Medications 07/10: Vit D3, D5w @ 100ml/hr, Humalog 1U, Levothyroxine, others nutritionally unremarkable. Height 5 ft 6 in Weight 95.254 kg [place] Body Weight (kg) 59.09 BMI 33.9 Intake Prior to Admission Poor Weight change and time frame Pt states having, unintentionally, loss between 2 and 13 lb recently. No body weight change reported in 4 days. Weight Status Obese Subjective/Other Information RD consult for routine F/U on TF tolerance/continuation assessment. TF continues as prescribed, and well tolerated, according to ADL notes. I will adjust TF prescription to improve Pt's energy/protein provision during LOS. Pt continues on Mechanical Ventilatioin, O2 saturation @ 100%, according to Physical Assessment History notes. Pt presents caries and has missing teeth, according to Physical Assessment History notes. Pt presents bilateral-UE Non- Pitting Edema 2+, according to Physical Assessment History notes. Pt remains incontinent, according to Physical Assessment History notes. Pt presents dysphagia, hemiplegia, and aphasia, according to Physical Assessment History notes. Pt is resident of a SNF according to Progress notes. Percent of energy/protein needs met: Prescribed TF-Vital AF 1.2 Jameson @ 55 ml/hr provides for energy/protein needs (1,595 Kcal/100 g) during LOS, 99% Kcal, 100% AA. Burn Absent Trauma Absent GI Symptoms Other Difficulty In Swallowing,Chewing Food Allergy No Skin Integrity/Comment Assessment WNL. Current % PO Other Energy Intake (non-severe) <75% Estimated Energy Requirement >7 days Interpretation of Weight Loss (non- 5% in 1 month severe) Fluid Accumulation Mild (non-severe) Reduced Equipment Oiler Strength N/A (non-severe) Protein-Calorie Malnutrition Non-Severe #2 Nutrition Diagnosis Malnutrition Etiology Uncertain, possibly associated to ongoing and concomitant chronic metabolic conditions. As Evidenced by Signs and Symptoms Reduced PO intake(<75% Estimated Energy Requirement > 7 days), Recent unintentional loss of body weight (5% in 1 month), Pt presents bilateral- UE Non-Pitting Edema 2+, according to Physical Assessment History notes. #1 Nutrition Diagnosis Inadequate oral intake Diagnosis Progress(for reassessment Continues documentation) Is patient on ventilator? Yes Is Patient Ambulatory and/or Out of Bed No REE-([facility]-confined to bed) 1763.208 Kcal/Kg value to use for calculation 17 Approximate Energy Requirements Using 1619 kcal/Kg Calculation Used for Recommendations Kcal/kg Additional Notes Protein: 1.2-2 g/Kg AdjBW; 92- 154 g/day. Fluids: 1 ml/Kcal, or as per MD. Nutrition Intervention Nutrition Support: Change Formula to TF-Vital AF 1.2 Jameson @ 55 ml/hr. Flush: 100 ml water Q 4 hr, or as per MD. Kcal 1,595 Protein (gm) 100 Carbohydrates (gm) 147 Fat (gm) 72 Fluid (mL) 1,078 Fiber (gm) 7 % RDI: 99% Kcal, 100% AA. Goal #1 Provide at least 75% of energy /protein needs through Enteral Feeding during LOS. Goal #2 Adjust the dietary intervention to better serve Pt's needs and clinical conditions during LOS. Follow-Up By: 07/12/22 Additional Comments Continue monitoring TF tolerance and BM.
--- NOTE | 2022-07-10 13:10 | Progress Note ---
Assessment and Plan Assessment: Acute hypoxic respiratory failure Coronavirus infection Acute metabolic encephalopathy Chronic CVA Hypernatremia Hypokalemia now hyperkalemic Transaminitis Rhabdomyolysis Plan: -Recent sodium level today was 150, yesterday's was 149 -On IV fluid D5W@ 100 ml/hr -On tube feeds, ordered free water flush 200 ml every 6 hours -Target sodium decrease is around 8-10 meq/24 hours -Monitor potassium levels -BMP every 6 hours -Strict I/O's daily -Obtain daily weights -Continue to monitor sodium levels -Plan of care reviewed by Dr. Samuel Subjective Date of service: 07/10/22 Principal diagnosis: Hypernatremia Interval history: Patient with active covid-19 infection, chart reviewed Objective - Vital Signs Vital signs: Vital Signs - 12hr 07/10/22 07/10/22 07/10/22 01:30 02:00 02:16 Temperature Pulse Rate 74 77 76 Pulse Rate [ From Monitor] Respiratory 12 12 12 Rate Blood Pressure 113/52 106/58 113/52 O2 Sat by Pulse 100 99 99 Oximetry 07/10/22 07/10/22 07/10/22 02:30 02:46 03:00 Temperature Pulse Rate 73 85 87 Pulse Rate [ From Monitor] Respiratory 12 14 12 Rate Blood Pressure 113/52 106/58 106/58 O2 Sat by Pulse 100 100 100 Oximetry 07/10/22 07/10/22 07/10/22 03:04 03:05 03:16 Temperature 97.3 F L Pulse Rate 87 84 Pulse Rate [ From Monitor] Respiratory 18 Rate Blood Pressure 83/71 O2 Sat by Pulse 100 100 Oximetry 07/10/22 07/10/22 07/10/22 03:30 03:46 04:00 Temperature Pulse Rate 83 83 82 Pulse Rate [ From Monitor] Respiratory 13 12 12 Rate Blood Pressure 83/71 83/71 104/66 O2 Sat by Pulse 100 99 99 Oximetry 07/10/22 07/10/22 07/10/22 04:05 04:16 04:30 Temperature Pulse Rate 78 72 76 Pulse Rate [ From Monitor] Respiratory 12 15 Rate Blood Pressure 83/71 104/66 104/66 O2 Sat by Pulse 99 100 100 Oximetry 07/10/22 07/10/22 07/10/22 04:46 05:00 05:16 Temperature Pulse Rate 81 89 71 Pulse Rate [ From Monitor] Respiratory 12 13 12 Rate Blood Pressure 104/66 100/62 104/66 O2 Sat by Pulse 100 100 100 Oximetry 07/10/22 07/10/22 07/10/22 05:30 05:46 06:00 Temperature Pulse Rate 85 69 71 Pulse Rate [ From Monitor] Respiratory 12 12 12 Rate Blood Pressure 104/66 104/66 98/57 O2 Sat by Pulse 98 100 99 Oximetry 07/10/22 07/10/22 07/10/22 06:16 06:30 06:46 Temperature Pulse Rate 70 83 82 Pulse Rate [ From Monitor] Respiratory 12 12 12 Rate Blood Pressure 98/57 98/57 98/57 O2 Sat by Pulse 100 99 99 Oximetry 07/10/22 07/10/22 07/10/22 07:00 07:16 07:30 Temperature Pulse Rate 75 69 70 Pulse Rate [ From Monitor] Respiratory 12 12 12 Rate Blood Pressure 106/63 106/63 106/63 O2 Sat by Pulse 100 100 100 Oximetry 07/10/22 07/10/22 07/10/22 07:46 08:00 08:16 Temperature 97.7 F Pulse Rate 66 78 81 Pulse Rate [ 74 From Monitor] Respiratory 13 12 Rate Blood Pressure 106/63 112/62 112/62 O2 Sat by Pulse 100 99 99 Oximetry 07/10/22 07/10/22 07/10/22 08:30 08:46 09:00 Temperature Pulse Rate 86 72 77 Pulse Rate [ From Monitor] Respiratory 12 12 10 L Rate Blood Pressure 112/62 112/62 102/65 O2 Sat by Pulse 100 100 99 Oximetry 07/10/22 07/10/22 07/10/22 09:16 09:30 09:46 Temperature Pulse Rate 75 79 81 Pulse Rate [ From Monitor] Respiratory 12 10 L 10 L Rate Blood Pressure 102/65 102/65 102/65 O2 Sat by Pulse 100 100 100 Oximetry 07/10/22 07/10/22 07/10/22 10:00 10:16 10:30 Temperature Pulse Rate 83 72 82 Pulse Rate [ From Monitor] Respiratory 12 13 9 L Rate Blood Pressure 107/64 107/64 107/64 O2 Sat by Pulse 100 100 100 Oximetry 07/10/22 07/10/22 07/10/22 10:46 11:00 11:16 Temperature Pulse Rate 80 69 74 Pulse Rate [ From Monitor] Respiratory 11 L 11 L 10 L Rate Blood Pressure 107/64 106/59 106/59 O2 Sat by Pulse 100 100 99 Oximetry 07/10/22 07/10/22 07/10/22 11:27 11:30 11:46 Temperature Pulse Rate 73 72 73 Pulse Rate [ From Monitor] Respiratory 12 12 Rate Blood Pressure 106/59 106/59 106/59 O2 Sat by Pulse 100 100 100 Oximetry 07/10/22 07/10/22 07/10/22 11:49 12:00 12:16 Temperature 97.5 F L Pulse Rate 69 74 Pulse Rate [ 71 From Monitor] Respiratory 12 12 Rate Blood Pressure 95/57 95/57 O2 Sat by Pulse 100 100 100 Oximetry 07/10/22 07/10/22 07/10/22 12:30 12:46 13:00 Temperature Pulse Rate 80 80 75 Pulse Rate [ From Monitor] Respiratory 12 12 12 Rate Blood Pressure 106/59 106/59 95/57 O2 Sat by Pulse 100 100 100 Oximetry - Lab 07/10/22 04:21 07/10/22 04:21 Most recent lab results ABG pH 7.450 pH Units (7.350-7.450) 07/10/22 04:55 ABG pCO2 33.3 mm Hg 07/10/22 04:55 ABG pO2 76.8 mm Hg (80.0-90.0) L 07/10/22 04:55 ABG HCO3 22.6 mmol/L (20.0-26.0) 07/10/22 04:55 ABG O2 Saturation 96.0 % (95.0-99.0) 07/10/22 04:55 Calcium 8.6 mg/dL (8.4-10.2) 07/10/22 04:21 Magnesium 3.30 mg/dL (1.7-2.3) H 07/07/22 03:38 Urine Creatinine 92.9 mg/dL (0.1-20.0) H 07/07/22 16:45 Urine Sodium 109 mmol/L 07/07/22 16:45 Medications & Allergies - Medications Allergies/Adverse Reactions: Allergies Penicillins Allergy (Verified 07/07/22 18:23) Unknown Home Medications: Home Medications Medication Instructions Recorded Confirmed Last Taken Type Apixaban [Eliquis] 5 mg PO BID 07/08/22 07/08/22 Unknown History AtorvaSTATin [Lipitor] 80 mg PO QHS 07/08/22 07/08/22 Unknown History Cholecalciferol Vit D3 [Vitamin D3 1,000 unit PO QDAY 07/08/22 07/08/22 Unknown History 1,000 UNIT TAB] Levothyroxine [Synthroid] 75 mcg PO QAM 07/08/22 07/08/22 Unknown History Melatonin [Melatonin 5MG TAB] 5 mg PO QHS 07/08/22 07/08/22 Unknown History Mirtazapine 7.5 mg PO QHS 07/08/22 07/08/22 Unknown History Omeprazole Magnesium [PriLOSEC Otc] 40 mg PO QDAY 07/08/22 07/08/22 Unknown History VALPROIC ACID Liq [DepaKENE Liq] 250 mg PO Q12H 07/08/22 07/08/22 Unknown History Active Medications: Generic Name Dose Route Start Last Admin Trade Name Freq PRN Reason Stop Dose Admin Acetaminophen 650 mg 07/07/22 12:09 Acetaminophen 650 Mg Rect Supp ND Q6H PRN Pain MILD(1-3)/Fever >100.5/LEE Atorvastatin Calcium 80 mg 07/10/22 22:00 Atorvastatin 40 Mg Tab FEEDTUBE QHS ERROL Cholecalciferol 1,000 unit 07/10/22 10:00 07/10/22 11:13 Cholecalciferol (Vit D3) 1000 Unit (25 Mcg) Tab FEEDTUBE 07/16/22 10:01 1,000 unit QDAY ERROL Administration Dexamethasone 6 mg 07/08/22 10:00 07/10/22 09:20 Dexamethasone 4 Mg/Ml Vial IV 07/17/22 10:01 6 mg Q24HR ERROL Administration Dextrose 50 ml 07/09/22 11:42 Dextrose 50% In Water (25gm) 50 Ml Syringe IV Q30MIN PRN Hypoglycemia Protocol Famotidine 20 mg 07/09/22 22:00 07/10/22 09:21 Famotidine 20 Mg Tab FEEDTUBE 20 mg BID ERROL Administration Heparin Sodium (Porcine) 5,000 unit 07/08/22 06:00 07/10/22 05:10 Heparin 5,000 Unit/1 Ml Vial SUB-Q 5,000 unit Q12H ERROL Administration Hydrophilic Ointment 1 applic 07/07/22 02:48 Lip Therapy Vaseline TP Q2HR PRN Dry Lips Remdesivir 100 mg/ Sodium 250 mls @ 500 mls/hr 07/08/22 14:00 07/09/22 16:11 Chloride IV 07/11/22 14:29 Infused Q24HR@1400 ERROL Infusion Ceftriaxone Sodium 2 gm in 100 mls @ 200 mls/hr 07/08/22 17:00 07/09/22 17:42 Rocephin/Ns 2 Gm/100 Ml IV 200 mls/hr Q24H ERROL Administration Protocol Dextrose 1,000 mls @ 100 mls/hr 07/09/22 10:00 07/10/22 05:34 D5w IV 100 mls/hr DIRECT ERROL Administration Insulin Human Lispro 0 unit 07/09/22 12:00 07/10/22 11:39 Insulin Lispro 100 Unit/Ml SUB-Q 1 unit Q6HR ERROL Administration Protocol Levothyroxine Sodium 75 mcg 07/11/22 06:00 Levothyroxine 75 Mcg Tab FEEDTUBE QAM@0600 ERROL Multi-Ingred Cream/Lotion/Oil/Oint 1 applic 07/07/22 02:48 Mineral Oil/Petrolatum, White Ophth Oint 3.5 Gm OU Q4HR PRN Dry Eye(s) Senna/Docusate Sodium 1 tab 07/07/22 10:00 07/10/22 09:20 Sennosides/Docusate Sodium 8.6/50 Mg Tab FEEDTUBE 1 tab BID ERROL Administration Sodium Chloride 10 ml 07/07/22 13:00 07/10/22 09:21 Sodium Chloride 0.9% 10 Ml Flush Syringe IV 10 ml BID ERROL Administration Sodium Chloride 10 ml 07/07/22 12:09 Sodium Chloride 0.9% 10 Ml Flush Syringe IV PRN PRN LINE FLUSH Sodium Chloride 50 ml 07/08/22 14:00 07/09/22 16:12 Sodium Chloride 0.9% 50 Ml Ivpb IV 07/12/22 14:01 50 ml Q24HR@1400 ERROL Administration Valproic Acid 250 mg 07/10/22 22:00 Valproic Acid 250 Mg/5 Ml Oral Liqd FEEDTUBE Q12H ERROL
[2022-07-10 13:31] LABS: Blood Urea Nitrogen 15 mg/dL (7-17); Calcium 8.3 mg/dL (8.4-10.2); Hemolysis Index 34
[2022-07-10 13:32] LABS: BUN/Creatinine Ratio 30
[2022-07-10] MEDS: REMDESIVIR 100 MG in SODIUM CHLORIDE 0.9% 250ML 250 ML IV SCH (13:43)
[2022-07-10] MEDS: SODIUM CHLORIDE 0.9% 50 ML IVPB IV SCH (13:45)
--- NOTE | 2022-07-10 17:19 | Progress Note ---
Assessment and Plan 76 y/o female with acute respiratory failure secondary to altered mental status, most likely from electrolyte abnormalities seen on chemistry, found to be COVID positive. 07/10: follow up MRI. Get official EEG read but no status. Continue daily PSV trials. Guarded prognosis 07/09/22: Continue supportive measures. Continue to fix Na, if no improvement in mental state with normal sodium then will pursue MRI. Picc placed today. 07/08/22: No further sedation. 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 Consider neurology consult and may need to obtain MRI. Attempt PSV trials today. needs Picc line placed for senior living access as patient is a difficult stick. Feed patient and monitor lytes. 1. Discontinue sedation 2. Wean FiO2 for sats >88% and PaO2 greater than 60 3. AGree with fluid resuscitation, patient needs free water 4. Will follow up with family to find out exactly what patient mental status was a facility CCT 31 minutes. Subjective Date of service: 07/10/22 Principal diagnosis: Hypernatremia Interval history: Na down to 145. Still no change in mental state. MRI ordered but not able to be completed today. EEG done as well. Objective Vital Signs - 12hr 07/10/22 07/10/22 07/10/22 05:16 05:30 05:46 Temperature Pulse Rate 71 85 69 Pulse Rate [ From Monitor] Respiratory 12 12 12 Rate Blood Pressure 104/66 104/66 104/66 O2 Sat by Pulse 100 98 100 Oximetry 07/10/22 07/10/22 07/10/22 06:00 06:16 06:30 Temperature Pulse Rate 71 70 83 Pulse Rate [ From Monitor] Respiratory 12 12 12 Rate Blood Pressure 98/57 98/57 98/57 O2 Sat by Pulse 99 100 99 Oximetry 07/10/22 07/10/22 07/10/22 06:46 07:00 07:16 Temperature Pulse Rate 82 75 69 Pulse Rate [ From Monitor] Respiratory 12 12 12 Rate Blood Pressure 98/57 106/63 106/63 O2 Sat by Pulse 99 100 100 Oximetry 07/10/22 07/10/22 07/10/22 07:30 07:46 08:00 Temperature 97.7 F Pulse Rate 70 66 78 Pulse Rate [ 74 From Monitor] Respiratory 12 12 13 Rate Blood Pressure 106/63 106/63 112/62 O2 Sat by Pulse 100 100 99 Oximetry 07/10/22 07/10/22 07/10/22 08:16 08:30 08:46 Temperature Pulse Rate 81 86 72 Pulse Rate [ From Monitor] Respiratory 12 12 12 Rate Blood Pressure 112/62 112/62 112/62 O2 Sat by Pulse 99 100 100 Oximetry 07/10/22 07/10/22 07/10/22 09:00 09:16 09:30 Temperature Pulse Rate 77 75 79 Pulse Rate [ From Monitor] Respiratory 10 L 12 10 L Rate Blood Pressure 102/65 102/65 102/65 O2 Sat by Pulse 99 100 100 Oximetry 07/10/22 07/10/22 07/10/22 09:46 10:00 10:16 Temperature Pulse Rate 81 83 72 Pulse Rate [ From Monitor] Respiratory 10 L 12 13 Rate Blood Pressure 102/65 107/64 107/64 O2 Sat by Pulse 100 100 100 Oximetry 07/10/22 07/10/22 07/10/22 10:30 10:46 11:00 Temperature Pulse Rate 82 80 69 Pulse Rate [ From Monitor] Respiratory 9 L 11 L 11 L Rate Blood Pressure 107/64 107/64 106/59 O2 Sat by Pulse 100 100 100 Oximetry 07/10/22 07/10/22 07/10/22 11:16 11:27 11:30 Temperature Pulse Rate 74 73 72 Pulse Rate [ From Monitor] Respiratory 10 L 12 Rate Blood Pressure 106/59 106/59 106/59 O2 Sat by Pulse 99 100 100 Oximetry 07/10/22 07/10/22 07/10/22 11:46 11:49 12:00 Temperature 97.5 F L Pulse Rate 73 69 Pulse Rate [ 71 From Monitor] Respiratory 12 12 Rate Blood Pressure 106/59 95/57 O2 Sat by Pulse 100 100 100 Oximetry 07/10/22 07/10/22 07/10/22 12:16 12:30 12:46 Temperature Pulse Rate 74 80 80 Pulse Rate [ From Monitor] Respiratory 12 12 12 Rate Blood Pressure 95/57 106/59 106/59 O2 Sat by Pulse 100 100 100 Oximetry 07/10/22 07/10/22 07/10/22 13:00 13:16 13:30 Temperature Pulse Rate 77 78 79 Pulse Rate [ From Monitor] Respiratory 12 12 12 Rate Blood Pressure 95/57 95/57 95/57 O2 Sat by Pulse 100 100 100 Oximetry 07/10/22 07/10/22 07/10/22 13:46 14:00 14:16 Temperature Pulse Rate 79 87 76 Pulse Rate [ From Monitor] Respiratory 12 13 12 Rate Blood Pressure 95/57 117/67 117/67 O2 Sat by Pulse 100 99 100 Oximetry 07/10/22 07/10/22 07/10/22 14:30 14:46 15:00 Temperature Pulse Rate 73 81 77 Pulse Rate [ From Monitor] Respiratory 12 13 12 Rate Blood Pressure 117/67 117/67 113/58 O2 Sat by Pulse 100 100 100 Oximetry 07/10/22 07/10/22 07/10/22 15:16 15:30 15:44 Temperature Pulse Rate 77 76 Pulse Rate [ 84 From Monitor] Respiratory 12 13 Rate Blood Pressure 113/58 113/58 O2 Sat by Pulse 100 100 100 Oximetry 07/10/22 07/10/22 07/10/22 15:46 15:48 15:49 Temperature 98.1 F Pulse Rate 84 86 75 Pulse Rate [ From Monitor] Respiratory 12 Rate Blood Pressure 113/58 113/58 O2 Sat by Pulse 100 100 Oximetry 07/10/22 07/10/22 07/10/22 16:00 16:16 16:30 Temperature Pulse Rate 78 77 79 Pulse Rate [ From Monitor] Respiratory 12 12 12 Rate Blood Pressure 108/57 108/57 108/57 O2 Sat by Pulse 100 100 100 Oximetry 07/10/22 07/10/22 16:46 17:00 Temperature Pulse Rate 85 88 Pulse Rate [ From Monitor] Respiratory 13 14 Rate Blood Pressure 108/57 120/63 O2 Sat by Pulse 99 99 Oximetry Constitutional: comatose ENT: other (orally intubated) Neck: supple Effort: normal Ascultation: Bilateral: clear Percussion: Bilateral: not dull Cardiovascular: regular rate and rhythm Gastrointestinal: normoactive bowel sounds, soft Extremities: no cyanosis, no edema Neurologic: unable to assess CBC and BMP: 07/10/22 04:21 07/10/22 12:53 ABG, PT/INR, D-dimer: ABG ABG pH 7.450 pH Units (7.350-7.450) 07/10/22 04:55 ABG pCO2 33.3 mm Hg 07/10/22 04:55 ABG pO2 76.8 mm Hg (80.0-90.0) L 07/10/22 04:55 ABG O2 Saturation 96.0 % (95.0-99.0) 07/10/22 04:55 PT/INR, D-dimer PT 15.0 Sec. (12.2-14.9) H 07/07/22 03:38 INR 1.06 (0.87-1.13) 07/07/22 03:38 D-Dimer 585.71 ng/mlDDU (0-234) H 07/10/22 04:21 Abnormal lab findings: Abnormal Labs 07/07/22 07/07/22 07/07/22 03:17 03:38 03:38 WBC RBC 5.43 H Hgb 18.2 H Hct 54.9 H MCV 101 H MCH 34 H Plt Count 104 L Seg Neutrophils % Seg Neutrophils # PT 15.0 H APTT 23.0 L D-Dimer ABG pH ABG pO2 ABG O2 Saturation ABG Base Excess ABG Hemoglobin Oxyhemoglobin Sodium Potassium Chloride Carbon Dioxide BUN Creatinine Glucose POC Glucose Lactic Acid Uric Acid Calcium Magnesium Ferritin Total Bilirubin AST Lactate Dehydrogenase Total Creatine Kinase C-Reactive Protein Total Protein Albumin TSH Urine WBC (Auto) 7.0 H Urine Creatinine Salicylates Acetaminophen Valproic Acid SARS-CoV-2 (PCR) 07/07/22 07/07/22 07/07/22 03:38 03:38 03:38 WBC RBC Hgb Hct MCV MCH Plt Count Seg Neutrophils % Seg Neutrophils # PT APTT D-Dimer ABG pH ABG pO2 ABG O2 Saturation ABG Base Excess ABG Hemoglobin Oxyhemoglobin Sodium Potassium Chloride Carbon Dioxide BUN Creatinine Glucose POC Glucose Lactic Acid Uric Acid Calcium Magnesium 3.30 H Ferritin Total Bilirubin AST Lactate Dehydrogenase Total Creatine Kinase 1826 H C-Reactive Protein Total Protein Albumin TSH Urine WBC (Auto) Urine Creatinine Salicylates < 0.3 L Acetaminophen 5.0 L Valproic Acid 7.0 L SARS-CoV-2 (PCR) 07/07/22 07/07/22 07/07/22 04:17 04:17 04:17 WBC RBC Hgb Hct MCV MCH Plt Count Seg Neutrophils % Seg Neutrophils # PT APTT D-Dimer ABG pH ABG pO2 ABG O2 Saturation ABG Base Excess ABG Hemoglobin Oxyhemoglobin Sodium 168 H* Potassium 3.2 L Chloride 122.2 H Carbon Dioxide BUN 52 H Creatinine Glucose 158 H POC Glucose Lactic Acid 3.50 H* Uric Acid Calcium 10.9 H Magnesium Ferritin Total Bilirubin 1.40 H AST 47 H Lactate Dehydrogenase Total Creatine Kinase C-Reactive Protein Total Protein Albumin TSH 12.790 H Urine WBC (Auto) Urine Creatinine Salicylates Acetaminophen Valproic Acid SARS-CoV-2 (PCR) 07/07/22 07/07/22 07/07/22 04:17 07:43 09:35 WBC RBC Hgb Hct MCV MCH Plt Count Seg Neutrophils % Seg Neutrophils # PT APTT D-Dimer ABG pH ABG pO2 377.3 H ABG O2 Saturation 99.6 H ABG Base Excess -2.5 L ABG Hemoglobin Oxyhemoglobin Sodium Potassium Chloride Carbon Dioxide BUN Creatinine Glucose POC Glucose Lactic Acid 6.30 H* Uric Acid 13.5 H Calcium Magnesium Ferritin Total Bilirubin AST Lactate Dehydrogenase Total Creatine Kinase C-Reactive Protein Total Protein Albumin TSH Urine WBC (Auto) Urine Creatinine Salicylates Acetaminophen Valproic Acid SARS-CoV-2 (PCR) 07/07/22 07/07/22 07/07/22 15:00 16:00 16:00 WBC RBC Hgb Hct MCV MCH Plt Count Seg Neutrophils % Seg Neutrophils # PT APTT D-Dimer ABG pH ABG pO2 ABG O2 Saturation ABG Base Excess ABG Hemoglobin Oxyhemoglobin Sodium 166 H* Potassium Chloride 124.8 H Carbon Dioxide 20 L BUN 41 H Creatinine Glucose 157 H POC Glucose Lactic Acid 7.00 H* Uric Acid Calcium Magnesium Ferritin Total Bilirubin AST 81 H Lactate Dehydrogenase Total Creatine Kinase C-Reactive Protein Total Protein Albumin TSH Urine WBC (Auto) Urine Creatinine Salicylates Acetaminophen Valproic Acid SARS-CoV-2 (PCR) Positive A 07/07/22 07/07/22 07/07/22 16:45 23:42 23:42 WBC RBC Hgb Hct MCV MCH Plt Count Seg Neutrophils % Seg Neutrophils # PT APTT D-Dimer ABG pH ABG pO2 ABG O2 Saturation ABG Base Excess ABG Hemoglobin Oxyhemoglobin Sodium 165 H* Potassium 3.0 L Chloride 122.8 H Carbon Dioxide BUN 38 H Creatinine Glucose 232 H POC Glucose Lactic Acid 5.60 H* Uric Acid Calcium Magnesium Ferritin Total Bilirubin AST Lactate Dehydrogenase Total Creatine Kinase C-Reactive Protein Total Protein Albumin TSH Urine WBC (Auto) Urine Creatinine 92.9 H Salicylates Acetaminophen Valproic Acid SARS-CoV-2 (PCR) 07/07/22 07/07/22 07/08/22 Unknown Unknown 05:30 WBC RBC Hgb Hct MCV MCH Plt Count Seg Neutrophils % Seg Neutrophils # PT APTT D-Dimer ABG pH 7.553 H 7.473 H ABG pO2 61.7 L 121.7 H ABG O2 Saturation 94.7 L ABG Base Excess 4.3 H ABG Hemoglobin 18.0 H Oxyhemoglobin 93.1 L Sodium 163 H* Potassium 6.3 H* D Chloride 123.7 H Carbon Dioxide BUN 42 H Creatinine Glucose 169 H POC Glucose Lactic Acid Uric Acid Calcium Magnesium Ferritin Total Bilirubin AST Lactate Dehydrogenase Total Creatine Kinase C-Reactive Protein Total Protein Albumin TSH Urine WBC (Auto) Urine Creatinine Salicylates Acetaminophen Valproic Acid SARS-CoV-2 (PCR) 07/08/22 07/08/22 07/08/22 05:36 11:21 14:54 WBC 11.1 H RBC Hgb Hct MCV 101 H MCH 33 H Plt Count 69 L Seg Neutrophils % 82.0 H Seg Neutrophils # 9.1 H PT APTT D-Dimer ABG pH ABG pO2 ABG O2 Saturation ABG Base Excess ABG Hemoglobin Oxyhemoglobin Sodium Potassium Chloride Carbon Dioxide BUN Creatinine Glucose POC Glucose 174 H 148 H Lactic Acid Uric Acid Calcium Magnesium Ferritin Total Bilirubin AST Lactate Dehydrogenase Total Creatine Kinase C-Reactive Protein Total Protein Albumin TSH Urine WBC (Auto) Urine Creatinine Salicylates Acetaminophen Valproic Acid SARS-CoV-2 (PCR) 07/08/22 07/08/22 07/08/22 14:54 14:54 14:54 WBC RBC Hgb Hct MCV MCH Plt Count Seg Neutrophils % Seg Neutrophils # PT APTT D-Dimer ABG pH ABG pO2 ABG O2 Saturation ABG Base Excess ABG Hemoglobin Oxyhemoglobin Sodium 163 H* Potassium 2.9 L* Chloride 123.7 H Carbon Dioxide BUN 30 H Creatinine Glucose 161 H POC Glucose Lactic Acid 6.10 H* Uric Acid Calcium Magnesium Ferritin Total Bilirubin AST 69 H Lactate Dehydrogenase Total Creatine Kinase 2335 H C-Reactive Protein Total Protein 5.6 L D Albumin 3.1 L TSH Urine WBC (Auto) Urine Creatinine Salicylates Acetaminophen Valproic Acid SARS-CoV-2 (PCR) 07/08/22 07/08/22 07/08/22 14:54 14:54 14:54 WBC RBC Hgb Hct MCV MCH Plt Count Seg Neutrophils % Seg Neutrophils # PT APTT D-Dimer 499.72 H ABG pH ABG pO2 ABG O2 Saturation ABG Base Excess ABG Hemoglobin Oxyhemoglobin Sodium Potassium Chloride Carbon Dioxide BUN Creatinine Glucose POC Glucose Lactic Acid Uric Acid Calcium Magnesium Ferritin 722.1 H Total Bilirubin AST Lactate Dehydrogenase 455 H Total Creatine Kinase C-Reactive Protein 1.60 H Total Protein Albumin TSH Urine WBC (Auto) Urine Creatinine Salicylates Acetaminophen Valproic Acid SARS-CoV-2 (PCR) 07/08/22 07/08/22 07/09/22 19:13 19:53 00:09 WBC RBC Hgb Hct MCV MCH Plt Count Seg Neutrophils % Seg Neutrophils # PT APTT D-Dimer ABG pH ABG pO2 ABG O2 Saturation ABG Base Excess ABG Hemoglobin Oxyhemoglobin Sodium 160 H Potassium 3.5 L D Chloride 122.0 H Carbon Dioxide 20 L BUN 28 H Creatinine Glucose 151 H POC Glucose 138 H Lactic Acid 5.70 H* Uric Acid Calcium Magnesium Ferritin Total Bilirubin AST Lactate Dehydrogenase Total Creatine Kinase C-Reactive Protein Total Protein Albumin TSH Urine WBC (Auto) Urine Creatinine Salicylates Acetaminophen Valproic Acid SARS-CoV-2 (PCR) 07/09/22 07/09/22 07/09/22 00:45 03:21 03:21 WBC RBC Hgb Hct MCV MCH Plt Count Seg Neutrophils % Seg Neutrophils # PT APTT D-Dimer ABG pH ABG pO2 ABG O2 Saturation ABG Base Excess ABG Hemoglobin Oxyhemoglobin Sodium 158 H 157 H Potassium Chloride 124.2 H 125.0 H Carbon Dioxide 20 L 20 L BUN 25 H 24 H Creatinine Glucose 147 H 169 H POC Glucose Lactic Acid 4.70 H* Uric Acid Calcium Magnesium Ferritin Total Bilirubin AST 81 H Lactate Dehydrogenase Total Creatine Kinase C-Reactive Protein Total Protein 5.7 L Albumin 2.8 L TSH Urine WBC (Auto) Urine Creatinine Salicylates Acetaminophen Valproic Acid SARS-CoV-2 (PCR) 07/09/22 07/09/22 07/09/22 04:40 05:35 08:14 WBC RBC Hgb Hct MCV 102 H MCH 33 H Plt Count 74 L Seg Neutrophils % Seg Neutrophils # PT APTT D-Dimer ABG pH ABG pO2 172.1 H ABG O2 Saturation 99.1 H ABG Base Excess -2.8 L ABG Hemoglobin Oxyhemoglobin Sodium Potassium Chloride Carbon Dioxide BUN Creatinine Glucose POC Glucose 108 H Lactic Acid Uric Acid Calcium Magnesium Ferritin Total Bilirubin AST Lactate Dehydrogenase Total Creatine Kinase C-Reactive Protein Total Protein Albumin TSH Urine WBC (Auto) Urine Creatinine Salicylates Acetaminophen Valproic Acid SARS-CoV-2 (PCR) 07/09/22 07/09/22 07/09/22 11:16 11:27 16:20 WBC RBC Hgb Hct MCV MCH Plt Count Seg Neutrophils % Seg Neutrophils # PT APTT D-Dimer ABG pH ABG pO2 ABG O2 Saturation ABG Base Excess ABG Hemoglobin Oxyhemoglobin Sodium 155 H Potassium Chloride 121.3 H Carbon Dioxide BUN 21 H Creatinine Glucose 170 H POC Glucose 173 H 190 H Lactic Acid Uric Acid Calcium Magnesium Ferritin Total Bilirubin AST Lactate Dehydrogenase Total Creatine Kinase C-Reactive Protein Total Protein Albumin TSH Urine WBC (Auto) Urine Creatinine Salicylates Acetaminophen Valproic Acid SARS-CoV-2 (PCR) 07/09/22 07/10/22 07/10/22 17:16 00:04 04:21 WBC RBC Hgb Hct MCV MCH Plt Count Seg Neutrophils % Seg Neutrophils # PT APTT D-Dimer ABG pH ABG pO2 ABG O2 Saturation ABG Base Excess ABG Hemoglobin Oxyhemoglobin Sodium 149 H 150 H Potassium Chloride 115.6 H 115.0 H Carbon Dioxide BUN 18 H Creatinine 0.5 L Glucose 207 H 178 H POC Glucose 180 H Lactic Acid Uric Acid Calcium 7.9 L Magnesium Ferritin Total Bilirubin AST 89 H Lactate Dehydrogenase 431 H Total Creatine Kinase C-Reactive Protein Total Protein 4.9 L Albumin 2.5 L TSH Urine WBC (Auto) Urine Creatinine Salicylates Acetaminophen Valproic Acid SARS-CoV-2 (PCR) 07/10/22 07/10/22 07/10/22 04:21 04:21 04:21 WBC 11.8 H RBC 3.52 L Hgb Hct MCV 99 H MCH 33 H Plt Count 67 L Seg Neutrophils % Seg Neutrophils # PT APTT D-Dimer 585.71 H ABG pH ABG pO2 ABG O2 Saturation ABG Base Excess ABG Hemoglobin Oxyhemoglobin Sodium Potassium Chloride Carbon Dioxide BUN Creatinine Glucose POC Glucose Lactic Acid Uric Acid Calcium Magnesium Ferritin 631.3 H Total Bilirubin AST Lactate Dehydrogenase Total Creatine Kinase C-Reactive Protein Total Protein Albumin TSH Urine WBC (Auto) Urine Creatinine Salicylates Acetaminophen Valproic Acid SARS-CoV-2 (PCR) 07/10/22 07/10/22 07/10/22 04:21 04:55 05:26 WBC RBC Hgb Hct MCV MCH Plt Count Seg Neutrophils % Seg Neutrophils # PT APTT D-Dimer ABG pH ABG pO2 76.8 L ABG O2 Saturation ABG Base Excess ABG Hemoglobin 10.4 L Oxyhemoglobin 94.5 L Sodium Potassium Chloride Carbon Dioxide BUN Creatinine Glucose POC Glucose 147 H Lactic Acid 2.50 H* Uric Acid Calcium Magnesium Ferritin Total Bilirubin AST Lactate Dehydrogenase Total Creatine Kinase C-Reactive Protein Total Protein Albumin TSH Urine WBC (Auto) Urine Creatinine Salicylates Acetaminophen Valproic Acid SARS-CoV-2 (PCR) 07/10/22 07/10/22 08:24 12:53 WBC RBC Hgb Hct MCV MCH Plt Count Seg Neutrophils % Seg Neutrophils # PT APTT D-Dimer ABG pH ABG pO2 ABG O2 Saturation ABG Base Excess ABG Hemoglobin Oxyhemoglobin Sodium Potassium Chloride 110.9 H Carbon Dioxide BUN Creatinine 0.5 L Glucose 200 H POC Glucose Lactic Acid 2.10 H* Uric Acid Calcium 8.3 L Magnesium Ferritin Total Bilirubin AST Lactate Dehydrogenase Total Creatine Kinase C-Reactive Protein Total Protein Albumin TSH Urine WBC (Auto) Urine Creatinine Salicylates Acetaminophen Valproic Acid SARS-CoV-2 (PCR) Chest x-ray: image reviewed
[2022-07-10] MEDS: cefTRIAXone/NS 2 GM/100 ML 2 GM/100 ML BAG IV SCH (18:03)
--- NOTE | 2022-07-10 18:03 | Electrocardiograph Report ---
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
--- NOTE | 2022-07-10 18:04 | Electrocardiograph Report ---
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
[2022-07-10 19:10] LABS: Blood Urea Nitrogen 15 mg/dL (7-17); Calcium 8.1 mg/dL (8.4-10.2); Hemolysis Index 7
[2022-07-10 19:12] LABS: BUN/Creatinine Ratio 30
[2022-07-10] MEDS: VALPROIC ACID 250 MG/5 ML ORAL LIQD FEEDTUBE SCH (22:50)
[2022-07-11 00:34] LABS: Blood Urea Nitrogen 15 mg/dL (7-17); Calcium 8.1 mg/dL (8.4-10.2); Hemolysis Index 13
[2022-07-11] MEDS: INSULIN LISPRO 100 UNIT/ML SUB-Q SCH ×4 (00:36→18:07)
[2022-07-11 00:58] LABS: BUN/Creatinine Ratio 30
--- NOTE | 2022-07-11 03:45 | XRay Report ---
CHEST 1 VIEW INDICATION / CLINICAL INFORMATION: follow up respiratory failure. FINDINGS: SUPPORT DEVICES: No significant change in position. HEART / MEDIASTINUM: The cardiomediastinal silhouette has not significantly changed in the interim. LUNGS / PLEURA: The lungs are clear. Signer Name: Alexis Resendiz MD Signed: 07/11/2022 3:41 AM Workstation Name: [id number]
[2022-07-11 04:57] LABS: ABG Base Excess 0.8 mmol/L (-2.0-3.0); ABG HCO3 25.3 mmol/L (20.0-26.0); ABG Methemoglobin 0.7 % (0.0-1.5); ABG Oxygen Saturation 97.9 % (95.0-99.0); ABG PCO2 39.9 mm Hg; ABG PH 7.42 pH Units (7.350-7.450); ABG PO2 107.4 mm Hg (80.0-90.0)
[2022-07-11] MEDS: FREE WATER PO SCH ×3 (06:14→09:57)
[2022-07-11] MEDS: HEPARIN 5,000 UNIT/1 ML VIAL SUB-Q SCH ×2 (06:15→18:06)
[2022-07-11] MEDS: LEVOTHYROXINE 75 MCG TAB FEEDTUBE SCH (06:16)
[2022-07-11 06:23] LABS: Blood Urea Nitrogen 14 mg/dL (7-17); Calcium 8.3 mg/dL (8.4-10.2); Hemolysis Index 14
[2022-07-11 06:25] LABS: Hematocrit 37.2 % (30.3-42.9); Hemoglobin 11.9 gm/dl (10.1-14.3); Mean Corpuscular HGB Conc 32 % (30-34); Mean Corpuscular Volume 99 fl (79-97); Red Blood Count 3.74 M/mm3 (3.65-5.03); Red Cell Distribution Width 13.8 % (13.2-15.2)
[2022-07-11 06:26] LABS: Platelet Count 73 K/mm3 (140-440)
[2022-07-11 06:30] LABS: BUN/Creatinine Ratio 28
--- NOTE | 2022-07-11 09:36 | Progress Note ---
Assessment and Plan Acute hypoxic respiratory failure Coronavirus infection Acute metabolic encephalopathy Chronic CVA Hypernatremia Hypokalemia now hyperkalemic Transaminitis Rhabdomyolysis Plan: -hypernatremia has resolved -cont water flushes with NGT -D5W decreased to 50 cc/h -Monitor potassium levels -BMP every 6 hours -Strict I/O's daily -Obtain daily weights will sign off. Subjective Date of service: 07/11/22 Principal diagnosis: Hypernatremia Interval history: remains in ICU Objective - Vital Signs Vital signs: Vital Signs - 12hr 07/10/22 07/10/22 07/10/22 22:00 22:47 23:00 Temperature Pulse Rate 91 H 93 H 86 Pulse Rate [ From Monitor] Pulse Rate [ Left Dorsalis Pedis] Respiratory 13 12 13 Rate Blood Pressure 116/59 116/59 106/58 O2 Sat by Pulse 99 99 99 Oximetry 07/10/22 07/11/22 07/11/22 23:06 00:00 00:22 Temperature 98.1 F Pulse Rate 86 81 92 H Pulse Rate [ 81 From Monitor] Pulse Rate [ 81 Left Dorsalis Pedis] Respiratory 13 16 Rate Blood Pressure 106/58 104/58 106/58 O2 Sat by Pulse 99 100 99 Oximetry 07/11/22 07/11/22 07/11/22 01:00 02:00 03:00 Temperature Pulse Rate 105 H 84 96 H Pulse Rate [ From Monitor] Pulse Rate [ Left Dorsalis Pedis] Respiratory 15 15 11 L Rate Blood Pressure 104/58 110/69 116/82 O2 Sat by Pulse 99 99 100 Oximetry 07/11/22 07/11/22 07/11/22 04:00 04:15 05:00 Temperature 97.7 F Pulse Rate 108 H 92 H 98 H Pulse Rate [ 91 H From Monitor] Pulse Rate [ 91 H Left Dorsalis Pedis] Respiratory 13 14 Rate Blood Pressure 109/82 109/82 109/82 O2 Sat by Pulse 98 100 99 Oximetry 07/11/22 07/11/22 07/11/22 06:00 07:00 07:41 Temperature Pulse Rate 96 H 105 H 86 Pulse Rate [ From Monitor] Pulse Rate [ Left Dorsalis Pedis] Respiratory 16 12 Rate Blood Pressure 136/86 147/117 O2 Sat by Pulse 98 100 Oximetry 07/11/22 08:00 Temperature 97.7 F Pulse Rate 86 Pulse Rate [ 91 H From Monitor] Pulse Rate [ 96 H Left Dorsalis Pedis] Respiratory 11 L Rate Blood Pressure 105/72 O2 Sat by Pulse 100 Oximetry - Lab 07/11/22 04:00 07/11/22 05:40 Most recent lab results ABG pH 7.420 pH Units (7.350-7.450) 07/11/22 04:15 ABG pCO2 39.9 mm Hg 07/11/22 04:15 ABG pO2 107.4 mm Hg (80.0-90.0) H 07/11/22 04:15 ABG HCO3 25.3 mmol/L (20.0-26.0) 07/11/22 04:15 ABG O2 Saturation 97.9 % (95.0-99.0) 07/11/22 04:15 Calcium 8.3 mg/dL (8.4-10.2) L 07/11/22 05:40 Magnesium 3.30 mg/dL (1.7-2.3) H 07/07/22 03:38 Urine Creatinine 92.9 mg/dL (0.1-20.0) H 07/07/22 16:45 Urine Sodium 109 mmol/L 07/07/22 16:45 Medications & Allergies - Medications Allergies/Adverse Reactions: Allergies Penicillins Allergy (Verified 07/07/22 18:23) Unknown Home Medications: Home Medications Medication Instructions Recorded Confirmed Last Taken Type Apixaban [Eliquis] 5 mg PO BID 07/08/22 07/08/22 Unknown History AtorvaSTATin [Lipitor] 80 mg PO QHS 07/08/22 07/08/22 Unknown History Cholecalciferol Vit D3 [Vitamin D3 1,000 unit PO QDAY 07/08/22 07/08/22 Unknown History 1,000 UNIT TAB] Levothyroxine [Synthroid] 75 mcg PO QAM 07/08/22 07/08/22 Unknown History Melatonin [Melatonin 5MG TAB] 5 mg PO QHS 07/08/22 07/08/22 Unknown History Mirtazapine 7.5 mg PO QHS 07/08/22 07/08/22 Unknown History Omeprazole Magnesium [PriLOSEC Otc] 40 mg PO QDAY 07/08/22 07/08/22 Unknown History VALPROIC ACID Liq [DepaKENE Liq] 250 mg PO Q12H 07/08/22 07/08/22 Unknown History Active Medications: Generic Name Dose Route Start Last Admin Trade Name Freq PRN Reason Stop Dose Admin Acetaminophen 650 mg 07/07/22 12:09 Acetaminophen 650 Mg Rect Supp ND Q6H PRN Pain MILD(1-3)/Fever >100.5/LEE Atorvastatin Calcium 80 mg 07/10/22 22:00 07/10/22 22:51 Atorvastatin 40 Mg Tab FEEDTUBE 80 mg QHS ERROL Administration Cholecalciferol 1,000 unit 07/10/22 10:00 07/10/22 11:13 Cholecalciferol (Vit D3) 1000 Unit (25 Mcg) Tab FEEDTUBE 07/16/22 10:01 1,000 unit QDAY ERROL Administration Dexamethasone 6 mg 07/08/22 10:00 07/10/22 09:20 Dexamethasone 4 Mg/Ml Vial IV 07/17/22 10:01 6 mg Q24HR ERROL Administration Dextrose 50 ml 07/09/22 11:42 Dextrose 50% In Water (25gm) 50 Ml Syringe IV Q30MIN PRN Hypoglycemia Protocol Famotidine 20 mg 07/09/22 22:00 07/10/22 22:52 Famotidine 20 Mg Tab FEEDTUBE 20 mg BID ERROL Administration Heparin Sodium (Porcine) 5,000 unit 07/08/22 06:00 07/11/22 06:15 Heparin 5,000 Unit/1 Ml Vial SUB-Q 5,000 unit Q12H ERROL Administration Hydrophilic Ointment 1 applic 07/07/22 02:48 Lip Therapy Vaseline TP Q2HR PRN Dry Lips Remdesivir 100 mg/ Sodium 250 mls @ 500 mls/hr 07/08/22 14:00 07/10/22 14:13 Chloride IV 07/11/22 14:29 Infused Q24HR@1400 ERROL Infusion Ceftriaxone Sodium 2 gm in 100 mls @ 200 mls/hr 07/08/22 17:00 07/10/22 18:03 Rocephin/Ns 2 Gm/100 Ml IV 200 mls/hr Q24H ERROL Administration Protocol Dextrose 1,000 mls @ 50 mls/hr 07/09/22 10:00 07/10/22 17:29 D5w IV 100 mls/hr DIRECT ERROL Infusion Insulin Human Lispro 0 unit 07/09/22 12:00 07/11/22 06:15 Insulin Lispro 100 Unit/Ml SUB-Q Not Given Q6HR ERROL Protocol Levothyroxine Sodium 75 mcg 07/11/22 06:00 07/11/22 06:16 Levothyroxine 75 Mcg Tab FEEDTUBE 75 mcg QAM@0600 ERROL Administration Multi-Ingred Cream/Lotion/Oil/Oint 1 applic 07/07/22 02:48 Mineral Oil/Petrolatum, White Ophth Oint 3.5 Gm OU Q4HR PRN Dry Eye(s) Senna/Docusate Sodium 1 tab 07/07/22 10:00 07/10/22 22:52 Sennosides/Docusate Sodium 8.6/50 Mg Tab FEEDTUBE 1 tab BID ERROL Administration Sodium Chloride 10 ml 07/07/22 13:00 07/10/22 22:53 Sodium Chloride 0.9% 10 Ml Flush Syringe IV 10 ml BID ERROL Administration Sodium Chloride 10 ml 07/07/22 12:09 Sodium Chloride 0.9% 10 Ml Flush Syringe IV PRN PRN LINE FLUSH Sodium Chloride 50 ml 07/08/22 14:00 07/10/22 13:45 Sodium Chloride 0.9% 50 Ml Ivpb IV 07/12/22 14:01 50 ml Q24HR@1400 ERROL Administration Valproic Acid 250 mg 07/10/22 22:00 07/10/22 22:50 Valproic Acid 250 Mg/5 Ml Oral Liqd FEEDTUBE 250 mg Q12H ERROL Administration
[2022-07-11] MEDS: dexAMETHasone 4 MG/ML VIAL IV SCH (09:56)
[2022-07-11] MEDS: VALPROIC ACID 250 MG/5 ML ORAL LIQD FEEDTUBE SCH ×2 (09:56→22:30)
[2022-07-11] MEDS: FAMOTIDINE 20 MG TAB FEEDTUBE SCH ×2 (09:57→22:30)
[2022-07-11] MEDS: SENNOSIDES/DOCUSATE SODIUM 8.6/50 MG TAB FEEDTUBE SCH ×2 (09:57→22:30)
[2022-07-11] MEDS: CHOLECALCIFEROL (VIT D3) 1000 UNIT (25 mcg) TAB FEEDTUBE SCH (09:58)
--- NOTE | 2022-07-11 10:21 | Progress Note ---
Assessment and Plan 76 y/o female with acute respiratory failure secondary to altered mental status, most likely from electrolyte abnormalities seen on chemistry, found to be COVID positive. 07/11/22: for MRI today. Appreciate renal help, agree with signifing off. Attempt daily PSV. Guarded prognosis. 07/10: follow up MRI. Get official EEG read but no status. Continue daily PSV trials. Guarded prognosis 07/09/22: Continue supportive measures. Continue to fix Na, if no improvement in mental state with normal sodium then will pursue MRI. Picc placed today. 07/08/22: No further sedation. 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 Consider neurology consult and may need to obtain MRI. Attempt PSV trials today. needs Picc line placed for snf access as patient is a difficult stick. Feed patient and monitor lytes. 1. Discontinue sedation 2. Wean FiO2 for sats >88% and PaO2 greater than 60 3. AGree with fluid resuscitation, patient needs free water 4. Will follow up with family to find out exactly what patient mental status wa s a facility CCT 31 minutes. Subjective Date of service: 07/11/22 Principal diagnosis: Hypernatremia Interval history: No acute events. Stable. Mental status is unchanged. Objective Vital Signs - 12hr 07/10/22 07/10/22 07/10/22 22:47 23:00 23:06 Temperature Pulse Rate 93 H 86 86 Pulse Rate [ From Monitor] Pulse Rate [ Left Dorsalis Pedis] Respiratory 12 13 13 Rate Blood Pressure 116/59 106/58 106/58 O2 Sat by Pulse 99 99 99 Oximetry 07/11/22 07/11/22 07/11/22 00:00 00:22 01:00 Temperature 98.1 F Pulse Rate 81 92 H 105 H Pulse Rate [ 81 From Monitor] Pulse Rate [ 81 Left Dorsalis Pedis] Respiratory 16 15 Rate Blood Pressure 104/58 106/58 104/58 O2 Sat by Pulse 100 99 99 Oximetry 07/11/22 07/11/22 07/11/22 02:00 03:00 04:00 Temperature 97.7 F Pulse Rate 84 96 H 108 H Pulse Rate [ 91 H From Monitor] Pulse Rate [ 91 H Left Dorsalis Pedis] Respiratory 15 11 L 13 Rate Blood Pressure 110/69 116/82 109/82 O2 Sat by Pulse 99 100 98 Oximetry 07/11/22 07/11/22 07/11/22 04:15 05:00 06:00 Temperature Pulse Rate 92 H 98 H 96 H Pulse Rate [ From Monitor] Pulse Rate [ Left Dorsalis Pedis] Respiratory 14 16 Rate Blood Pressure 109/82 109/82 136/86 O2 Sat by Pulse 100 99 98 Oximetry 07/11/22 07/11/22 07/11/22 07:00 07:41 08:00 Temperature 97.7 F Pulse Rate 105 H 86 86 Pulse Rate [ 91 H From Monitor] Pulse Rate [ 96 H Left Dorsalis Pedis] Respiratory 12 11 L Rate Blood Pressure 147/117 105/72 O2 Sat by Pulse 100 100 Oximetry 07/11/22 07/11/22 09:00 10:00 Temperature Pulse Rate 92 H 90 Pulse Rate [ From Monitor] Pulse Rate [ Left Dorsalis Pedis] Respiratory 12 13 Rate Blood Pressure 105/72 124/76 O2 Sat by Pulse 99 100 Oximetry Constitutional: comatose ENT: other (orally intubated) Neck: supple Effort: normal Ascultation: Bilateral: clear Percussion: Bilateral: not dull Cardiovascular: regular rate and rhythm Gastrointestinal: normoactive bowel sounds, soft Extremities: no cyanosis, no edema Neurologic: unable to assess CBC and BMP: 07/11/22 04:00 07/11/22 05:40 ABG, PT/INR, D-dimer: ABG ABG pH 7.420 pH Units (7.350-7.450) 07/11/22 04:15 ABG pCO2 39.9 mm Hg 07/11/22 04:15 ABG pO2 107.4 mm Hg (80.0-90.0) H 07/11/22 04:15 ABG O2 Saturation 97.9 % (95.0-99.0) 07/11/22 04:15 PT/INR, D-dimer PT 15.0 Sec. (12.2-14.9) H 07/07/22 03:38 INR 1.06 (0.87-1.13) 07/07/22 03:38 D-Dimer 585.71 ng/mlDDU (0-234) H 07/10/22 04:21 Abnormal lab findings: Abnormal Labs 07/07/22 07/07/22 07/07/22 03:17 03:38 03:38 WBC RBC 5.43 H Hgb 18.2 H Hct 54.9 H MCV 101 H MCH 34 H Plt Count 104 L Seg Neutrophils % Seg Neutrophils # PT 15.0 H APTT 23.0 L D-Dimer ABG pH ABG pO2 ABG O2 Saturation ABG Base Excess ABG Hemoglobin Oxyhemoglobin Sodium Potassium Chloride Carbon Dioxide BUN Creatinine Glucose POC Glucose Lactic Acid Uric Acid Calcium Magnesium Ferritin Total Bilirubin AST Lactate Dehydrogenase Total Creatine Kinase C-Reactive Protein Total Protein Albumin TSH Urine WBC (Auto) 7.0 H Urine Creatinine Salicylates Acetaminophen Valproic Acid SARS-CoV-2 (PCR) 07/07/22 07/07/22 07/07/22 03:38 03:38 03:38 WBC RBC Hgb Hct MCV MCH Plt Count Seg Neutrophils % Seg Neutrophils # PT APTT D-Dimer ABG pH ABG pO2 ABG O2 Saturation ABG Base Excess ABG Hemoglobin Oxyhemoglobin Sodium Potassium Chloride Carbon Dioxide BUN Creatinine Glucose POC Glucose Lactic Acid Uric Acid Calcium Magnesium 3.30 H Ferritin Total Bilirubin AST Lactate Dehydrogenase Total Creatine Kinase 1826 H C-Reactive Protein Total Protein Albumin TSH Urine WBC (Auto) Urine Creatinine Salicylates < 0.3 L Acetaminophen 5.0 L Valproic Acid 7.0 L SARS-CoV-2 (PCR) 07/07/22 07/07/22 07/07/22 04:17 04:17 04:17 WBC RBC Hgb Hct MCV MCH Plt Count Seg Neutrophils % Seg Neutrophils # PT APTT D-Dimer ABG pH ABG pO2 ABG O2 Saturation ABG Base Excess ABG Hemoglobin Oxyhemoglobin Sodium 168 H* Potassium 3.2 L Chloride 122.2 H Carbon Dioxide BUN 52 H Creatinine Glucose 158 H POC Glucose Lactic Acid 3.50 H* Uric Acid Calcium 10.9 H Magnesium Ferritin Total Bilirubin 1.40 H AST 47 H Lactate Dehydrogenase Total Creatine Kinase C-Reactive Protein Total Protein Albumin TSH 12.790 H Urine WBC (Auto) Urine Creatinine Salicylates Acetaminophen Valproic Acid SARS-CoV-2 (PCR) 07/07/22 07/07/22 07/07/22 04:17 07:43 09:35 WBC RBC Hgb Hct MCV MCH Plt Count Seg Neutrophils % Seg Neutrophils # PT APTT D-Dimer ABG pH ABG pO2 377.3 H ABG O2 Saturation 99.6 H ABG Base Excess -2.5 L ABG Hemoglobin Oxyhemoglobin Sodium Potassium Chloride Carbon Dioxide BUN Creatinine Glucose POC Glucose Lactic Acid 6.30 H* Uric Acid 13.5 H Calcium Magnesium Ferritin Total Bilirubin AST Lactate Dehydrogenase Total Creatine Kinase C-Reactive Protein Total Protein Albumin TSH Urine WBC (Auto) Urine Creatinine Salicylates Acetaminophen Valproic Acid SARS-CoV-2 (PCR) 07/07/22 07/07/22 07/07/22 15:00 16:00 16:00 WBC RBC Hgb Hct MCV MCH Plt Count Seg Neutrophils % Seg Neutrophils # PT APTT D-Dimer ABG pH ABG pO2 ABG O2 Saturation ABG Base Excess ABG Hemoglobin Oxyhemoglobin Sodium 166 H* Potassium Chloride 124.8 H Carbon Dioxide 20 L BUN 41 H Creatinine Glucose 157 H POC Glucose Lactic Acid 7.00 H* Uric Acid Calcium Magnesium Ferritin Total Bilirubin AST 81 H Lactate Dehydrogenase Total Creatine Kinase C-Reactive Protein Total Protein Albumin TSH Urine WBC (Auto) Urine Creatinine Salicylates Acetaminophen Valproic Acid SARS-CoV-2 (PCR) Positive A 07/07/22 07/07/22 07/07/22 16:45 23:42 23:42 WBC RBC Hgb Hct MCV MCH Plt Count Seg Neutrophils % Seg Neutrophils # PT APTT D-Dimer ABG pH ABG pO2 ABG O2 Saturation ABG Base Excess ABG Hemoglobin Oxyhemoglobin Sodium 165 H* Potassium 3.0 L Chloride 122.8 H Carbon Dioxide BUN 38 H Creatinine Glucose 232 H POC Glucose Lactic Acid 5.60 H* Uric Acid Calcium Magnesium Ferritin Total Bilirubin AST Lactate Dehydrogenase Total Creatine Kinase C-Reactive Protein Total Protein Albumin TSH Urine WBC (Auto) Urine Creatinine 92.9 H Salicylates Acetaminophen Valproic Acid SARS-CoV-2 (PCR) 07/07/22 07/07/22 07/08/22 Unknown Unknown 05:30 WBC RBC Hgb Hct MCV MCH Plt Count Seg Neutrophils % Seg Neutrophils # PT APTT D-Dimer ABG pH 7.553 H 7.473 H ABG pO2 61.7 L 121.7 H ABG O2 Saturation 94.7 L ABG Base Excess 4.3 H ABG Hemoglobin 18.0 H Oxyhemoglobin 93.1 L Sodium 163 H* Potassium 6.3 H* D Chloride 123.7 H Carbon Dioxide BUN 42 H Creatinine Glucose 169 H POC Glucose Lactic Acid Uric Acid Calcium Magnesium Ferritin Total Bilirubin AST Lactate Dehydrogenase Total Creatine Kinase C-Reactive Protein Total Protein Albumin TSH Urine WBC (Auto) Urine Creatinine Salicylates Acetaminophen Valproic Acid SARS-CoV-2 (PCR) 07/08/22 07/08/22 07/08/22 05:36 11:21 14:54 WBC 11.1 H RBC Hgb Hct MCV 101 H MCH 33 H Plt Count 69 L Seg Neutrophils % 82.0 H Seg Neutrophils # 9.1 H PT APTT D-Dimer ABG pH ABG pO2 ABG O2 Saturation ABG Base Excess ABG Hemoglobin Oxyhemoglobin Sodium Potassium Chloride Carbon Dioxide BUN Creatinine Glucose POC Glucose 174 H 148 H Lactic Acid Uric Acid Calcium Magnesium Ferritin Total Bilirubin AST Lactate Dehydrogenase Total Creatine Kinase C-Reactive Protein Total Protein Albumin TSH Urine WBC (Auto) Urine Creatinine Salicylates Acetaminophen Valproic Acid SARS-CoV-2 (PCR) 07/08/22 07/08/22 07/08/22 14:54 14:54 14:54 WBC RBC Hgb Hct MCV MCH Plt Count Seg Neutrophils % Seg Neutrophils # PT APTT D-Dimer ABG pH ABG pO2 ABG O2 Saturation ABG Base Excess ABG Hemoglobin Oxyhemoglobin Sodium 163 H* Potassium 2.9 L* Chloride 123.7 H Carbon Dioxide BUN 30 H Creatinine Glucose 161 H POC Glucose Lactic Acid 6.10 H* Uric Acid Calcium Magnesium Ferritin Total Bilirubin AST 69 H Lactate Dehydrogenase Total Creatine Kinase 2335 H C-Reactive Protein Total Protein 5.6 L D Albumin 3.1 L TSH Urine WBC (Auto) Urine Creatinine Salicylates Acetaminophen Valproic Acid SARS-CoV-2 (PCR) 07/08/22 07/08/22 07/08/22 14:54 14:54 14:54 WBC RBC Hgb Hct MCV MCH Plt Count Seg Neutrophils % Seg Neutrophils # PT APTT D-Dimer 499.72 H ABG pH ABG pO2 ABG O2 Saturation ABG Base Excess ABG Hemoglobin Oxyhemoglobin Sodium Potassium Chloride Carbon Dioxide BUN Creatinine Glucose POC Glucose Lactic Acid Uric Acid Calcium Magnesium Ferritin 722.1 H Total Bilirubin AST Lactate Dehydrogenase 455 H Total Creatine Kinase C-Reactive Protein 1.60 H Total Protein Albumin TSH Urine WBC (Auto) Urine Creatinine Salicylates Acetaminophen Valproic Acid SARS-CoV-2 (PCR) 07/08/22 07/08/22 07/09/22 19:13 19:53 00:09 WBC RBC Hgb Hct MCV MCH Plt Count Seg Neutrophils % Seg Neutrophils # PT APTT D-Dimer ABG pH ABG pO2 ABG O2 Saturation ABG Base Excess ABG Hemoglobin Oxyhemoglobin Sodium 160 H Potassium 3.5 L D Chloride 122.0 H Carbon Dioxide 20 L BUN 28 H Creatinine Glucose 151 H POC Glucose 138 H Lactic Acid 5.70 H* Uric Acid Calcium Magnesium Ferritin Total Bilirubin AST Lactate Dehydrogenase Total Creatine Kinase C-Reactive Protein Total Protein Albumin TSH Urine WBC (Auto) Urine Creatinine Salicylates Acetaminophen Valproic Acid SARS-CoV-2 (PCR) 07/09/22 07/09/22 07/09/22 00:45 03:21 03:21 WBC RBC Hgb Hct MCV MCH Plt Count Seg Neutrophils % Seg Neutrophils # PT APTT D-Dimer ABG pH ABG pO2 ABG O2 Saturation ABG Base Excess ABG Hemoglobin Oxyhemoglobin Sodium 158 H 157 H Potassium Chloride 124.2 H 125.0 H Carbon Dioxide 20 L 20 L BUN 25 H 24 H Creatinine Glucose 147 H 169 H POC Glucose Lactic Acid 4.70 H* Uric Acid Calcium Magnesium Ferritin Total Bilirubin AST 81 H Lactate Dehydrogenase Total Creatine Kinase C-Reactive Protein Total Protein 5.7 L Albumin 2.8 L TSH Urine WBC (Auto) Urine Creatinine Salicylates Acetaminophen Valproic Acid SARS-CoV-2 (PCR) 07/09/22 07/09/22 07/09/22 04:40 05:35 08:14 WBC RBC Hgb Hct MCV 102 H MCH 33 H Plt Count 74 L Seg Neutrophils % Seg Neutrophils # PT APTT D-Dimer ABG pH ABG pO2 172.1 H ABG O2 Saturation 99.1 H ABG Base Excess -2.8 L ABG Hemoglobin Oxyhemoglobin Sodium Potassium Chloride Carbon Dioxide BUN Creatinine Glucose POC Glucose 108 H Lactic Acid Uric Acid Calcium Magnesium Ferritin Total Bilirubin AST Lactate Dehydrogenase Total Creatine Kinase C-Reactive Protein Total Protein Albumin TSH Urine WBC (Auto) Urine Creatinine Salicylates Acetaminophen Valproic Acid SARS-CoV-2 (PCR) 07/09/22 07/09/22 07/09/22 11:16 11:27 16:20 WBC RBC Hgb Hct MCV MCH Plt Count Seg Neutrophils % Seg Neutrophils # PT APTT D-Dimer ABG pH ABG pO2 ABG O2 Saturation ABG Base Excess ABG Hemoglobin Oxyhemoglobin Sodium 155 H Potassium Chloride 121.3 H Carbon Dioxide BUN 21 H Creatinine Glucose 170 H POC Glucose 173 H 190 H Lactic Acid Uric Acid Calcium Magnesium Ferritin Total Bilirubin AST Lactate Dehydrogenase Total Creatine Kinase C-Reactive Protein Total Protein Albumin TSH Urine WBC (Auto) Urine Creatinine Salicylates Acetaminophen Valproic Acid SARS-CoV-2 (PCR) 07/09/22 07/10/22 07/10/22 17:16 00:04 04:21 WBC RBC Hgb Hct MCV MCH Plt Count Seg Neutrophils % Seg Neutrophils # PT APTT D-Dimer ABG pH ABG pO2 ABG O2 Saturation ABG Base Excess ABG Hemoglobin Oxyhemoglobin Sodium 149 H 150 H Potassium Chloride 115.6 H 115.0 H Carbon Dioxide BUN 18 H Creatinine 0.5 L Glucose 207 H 178 H POC Glucose 180 H Lactic Acid Uric Acid Calcium 7.9 L Magnesium Ferritin Total Bilirubin AST 89 H Lactate Dehydrogenase 431 H Total Creatine Kinase C-Reactive Protein Total Protein 4.9 L Albumin 2.5 L TSH Urine WBC (Auto) Urine Creatinine Salicylates Acetaminophen Valproic Acid SARS-CoV-2 (PCR) 07/10/22 07/10/22 07/10/22 04:21 04:21 04:21 WBC 11.8 H RBC 3.52 L Hgb Hct MCV 99 H MCH 33 H Plt Count 67 L Seg Neutrophils % Seg Neutrophils # PT APTT D-Dimer 585.71 H ABG pH ABG pO2 ABG O2 Saturation ABG Base Excess ABG Hemoglobin Oxyhemoglobin Sodium Potassium Chloride Carbon Dioxide BUN Creatinine Glucose POC Glucose Lactic Acid Uric Acid Calcium Magnesium Ferritin 631.3 H Total Bilirubin AST Lactate Dehydrogenase Total Creatine Kinase C-Reactive Protein Total Protein Albumin TSH Urine WBC (Auto) Urine Creatinine Salicylates Acetaminophen Valproic Acid SARS-CoV-2 (PCR) 07/10/22 07/10/22 07/10/22 04:21 04:55 05:26 WBC RBC Hgb Hct MCV MCH Plt Count Seg Neutrophils % Seg Neutrophils # PT APTT D-Dimer ABG pH ABG pO2 76.8 L ABG O2 Saturation ABG Base Excess ABG Hemoglobin 10.4 L Oxyhemoglobin 94.5 L Sodium Potassium Chloride Carbon Dioxide BUN Creatinine Glucose POC Glucose 147 H Lactic Acid 2.50 H* Uric Acid Calcium Magnesium Ferritin Total Bilirubin AST Lactate Dehydrogenase Total Creatine Kinase C-Reactive Protein Total Protein Albumin TSH Urine WBC (Auto) Urine Creatinine Salicylates Acetaminophen Valproic Acid SARS-CoV-2 (PCR) 07/10/22 07/10/22 07/10/22 08:24 11:31 12:53 WBC RBC Hgb Hct MCV MCH Plt Count Seg Neutrophils % Seg Neutrophils # PT APTT D-Dimer ABG pH ABG pO2 ABG O2 Saturation ABG Base Excess ABG Hemoglobin Oxyhemoglobin Sodium Potassium Chloride 110.9 H Carbon Dioxide BUN Creatinine 0.5 L Glucose 200 H POC Glucose 166 H Lactic Acid 2.10 H* Uric Acid Calcium 8.3 L Magnesium Ferritin Total Bilirubin AST Lactate Dehydrogenase Total Creatine Kinase C-Reactive Protein Total Protein Albumin TSH Urine WBC (Auto) Urine Creatinine Salicylates Acetaminophen Valproic Acid SARS-CoV-2 (PCR) 07/10/22 07/10/22 07/10/22 17:37 18:53 23:30 WBC RBC Hgb Hct MCV MCH Plt Count Seg Neutrophils % Seg Neutrophils # PT APTT D-Dimer ABG pH ABG pO2 ABG O2 Saturation ABG Base Excess ABG Hemoglobin Oxyhemoglobin Sodium Potassium Chloride 109.5 H 110.2 H Carbon Dioxide BUN Creatinine 0.5 L 0.5 L Glucose 243 H 208 H POC Glucose 237 H Lactic Acid Uric Acid Calcium 8.1 L 8.1 L Magnesium Ferritin Total Bilirubin AST Lactate Dehydrogenase Total Creatine Kinase C-Reactive Protein Total Protein Albumin TSH Urine WBC (Auto) Urine Creatinine Salicylates Acetaminophen Valproic Acid SARS-CoV-2 (PCR) 07/10/22 07/11/22 07/11/22 23:57 04:00 04:15 WBC 11.2 H RBC Hgb Hct MCV 99 H MCH Plt Count 73 L Seg Neutrophils % Seg Neutrophils # PT APTT D-Dimer ABG pH ABG pO2 107.4 H ABG O2 Saturation ABG Base Excess ABG Hemoglobin Oxyhemoglobin Sodium Potassium Chloride Carbon Dioxide BUN Creatinine Glucose POC Glucose 195 H Lactic Acid Uric Acid Calcium Magnesium Ferritin Total Bilirubin AST Lactate Dehydrogenase Total Creatine Kinase C-Reactive Protein Total Protein Albumin TSH Urine WBC (Auto) Urine Creatinine Salicylates Acetaminophen Valproic Acid SARS-CoV-2 (PCR) 07/11/22 07/11/22 07/11/22 05:40 05:40 06:06 WBC RBC Hgb Hct MCV MCH Plt Count Seg Neutrophils % Seg Neutrophils # PT APTT D-Dimer ABG pH ABG pO2 ABG O2 Saturation ABG Base Excess ABG Hemoglobin Oxyhemoglobin Sodium Potassium Chloride 109.8 H Carbon Dioxide BUN Creatinine 0.5 L Glucose 160 H POC Glucose 145 H Lactic Acid Uric Acid Calcium 8.3 L Magnesium Ferritin Total Bilirubin AST Lactate Dehydrogenase Total Creatine Kinase 1745 H C-Reactive Protein Total Protein Albumin TSH Urine WBC (Auto) Urine Creatinine Salicylates Acetaminophen Valproic Acid SARS-CoV-2 (PCR)
--- NOTE | 2022-07-11 11:38 | Progress Note ---
<GEORGE DAVIS - Last Filed: 07/11/22 19:03> Assessment and Plan Assessment and plan: This is a 76-year-old female with CVA, pulmonary embolism, hypothyroidism and JUJU admitted with electrolyte imbalances, hypoxic respiratory failure and COVID- 19 pneumonia Hospital Course to Date: 07/08: Patient noted to be COVID-positive, started on remdesivir, Decadron, ceftriaxone azithromycin and infectious disease was consulted yesterday. This morning patient is on any sedation, PICC line to be placed. RT to attempt PSV. Started on free water flushes and tube feedings. Continues on D5 half-normal saline. 07/09: Patient remains encephalopathic, not on any sedation. Hypernatremia is improving, on FWF Q4hrs and D5w gtt per Nephro. If hypernatremia continue to improve and patient's mentation is unchanged, will get a repeat CT to r/o intracranial abnormalities. Patient remains afebrile, leukocytosis improved, and VSS. Continue current IV abx per ID. Patient failed PSV trial again today, trevon nue PSV trial as tolerated 07/10: Remains stable on the vent, tolerating PSV trial this am. sodium continue to improve but no change in mental status. D/w CCM will get MRI brain to r/o any intracranial abnormalities, EEG also ordered to r/o seizures. Continue FWF and D5w gtt per Nephro. Continue IV steroids and current IV abx per ID. 07/11: Hypernatremia resolved, mentation is unchanged, remains on low vent setting. EEG noted, and MRI brain pending. Will consult Neurology for further recommendations. Continue daily PSV trial as tolerated. Neuro: Acute metabolic encephalopathy, h/o CVA with hemiplegia, dysphagia, aphasia, dementia -Reorientation as needed -Maintain sleep-wake cycle -Resume home Lipitor -As needed analgesia -CT head shows no acute intracranial hemorrhage, multiple chronic appearing infarcts including left MCA distribution, left cerebral hemisphere and within the right basal ganglia -Depakene -EEG noted -MRI pending Cardiac: h/o HLD -Resume home Lipitor -Blood pressure monitoring per protocol Respiratory: Acute hypoxic respiratory failure, h/o JUJU, pulmonary embolism -CCM consulted, appreciate recommendations -Intubated on 07/07 with a 7.50 ETT at 24 the lips -A.m. vent settings:PRVC-30%,6,12,400 -See RT notes for titration -A.m. ABG and CXR noted -VAP bundle -SPO2 monitoring GI: NAD -PPI -NTR consulted for tube feedings -BR: Senokot-S : Hypernatremia, hypokalemia, rhabdomyolysis -Nephrology consulted, appreciate recommendations -Monitor intake and output -D5W gtt -Free water flush -BMP every 6 per nephrology -Renally dose medications -Avoid nephrotoxic medications -IVF with KCL, D5 -Replete potassium -Trend BMP ID: COVID Pneumonia, lactic acidosis -Infectious disease consulted, appreciate recommendation -Antibiotic therapy per ID -Remdesivir for 5 days -Dexamethasone for 10 days -Contact/droplet precautions -f/u blood culture -Trend COVID-19 inflammatory markers -Monitor WBC and temperature curve -Prophylactic anticoagulation based on D-dimer per hospital protocol Heme: Thrombocytopenia -Patient presented with low plt -Plt continue to trend down, but less than 50% of admit count -No s/s of any active bleeding, H&H stable -Continue to trend CBC -On Heparin SubQ -Transfuse for plt less than 20 and hgb less than 7 Endo: h/o hypothyroidism -Avoid hypoglycemia -SSI -Accu-Cheks q. 6 -Long-acting insulin, titrate as needed -Resume home Synthroid GI/DVT Prophylaxis -PPI- pepcid -Heparin SubQ -SCDs to bilateral lower extremities while in bed The high probability of a clinically significant, sudden or life threatening deterioration of the [multi] system(s) required my full and direct attention, intervention and personal management. The aggregate critical care time was [60] minutes. This time is in addition to time spent performing reported procedures but includes the following: [x] Data Review and interpretation [x] Patient assessment and monitoring of vital signs [x] Documentation [x] Medication orders and management Disposition Plan: ICU Total Time Spent with Patient (Minutes): 60 History Interval history: Patient seen and examined at the bedside. Remains on the vent and uresponsive, not on any sedation. Pupils are round and reactive, with + gag/cough, open eyes spontaneously but does not track nor follow any commands. VSS. DELMI overnight Hospitalist Physical - Physical exam Narrative exam: General appearance: Present: other (Intubated, unresponsive, not on any sedations) - EENT Eyes: Present: PERRL - Respiratory Respiratory effort: normal Respiratory: bilateral: rhonchi - Cardiovascular Rhythm: regular Heart Sounds: Present: S1 & S2 - Extremities Extremities: no ischemia, pulses intact, pulses symmetrical Extremity abnormal: edema - Peripheral Assessment Generalized Edema Type: Non-pitting Edema Degree: 2+ Capillary Refill: < 3 seconds Skin Temperature: Warm Peripheral Pulses: within normal limits - Abdominal General gastrointestinal: soft, non-distended, normal bowel sounds - Integumentary Integumentary: Present: warm, dry - Psychiatric Psychiatric: other (Intubated, unresponsive, not on any sedations) - Neurologic Neurologic: other (Intubated, unresponsive, not on any sedations. Open eyes spontaneously, does not track, not following commands, withdrawal from painful stimuli) - Allied Health Allied health notes reviewed: nursing, case management - Constitutional Vitals: Temp Pulse Resp BP Pulse Ox 97.7 F 90 13 124/76 100 07/11/22 08:00 07/11/22 10:00 07/11/22 10:00 07/11/22 10:00 07/11/22 10:00 HEART Score - HEART Score Troponin: Troponin T 0.010 ng/mL (0.00-0.029) 07/07/22 04:17 Results - Labs CBC & Chem 7: 07/11/22 04:00 07/11/22 11:59 Labs: Laboratory Last Values WBC 11.2 K/mm3 (4.5-11.0) H 07/11/22 04:00 RBC 3.74 M/mm3 (3.65-5.03) 07/11/22 04:00 Hgb 11.9 gm/dl (10.1-14.3) 07/11/22 04:00 Hct 37.2 % (30.3-42.9) 07/11/22 04:00 MCV 99 fl (79-97) H 07/11/22 04:00 MCH 32 pg (28-32) 07/11/22 04:00 MCHC 32 % (30-34) 07/11/22 04:00 RDW 13.8 % (13.2-15.2) 07/11/22 04:00 Plt Count 73 K/mm3 (140-440) L 07/11/22 04:00 Lymph % (Auto) 15.2 % (13.4-35.0) 07/08/22 14:54 [place] % (Auto) 2.7 % (0.0-7.3) 07/08/22 14:54 Eos % (Auto) 0.0 % (0.0-4.3) 07/08/22 14:54 Baso % (Auto) 0.1 % (0.0-1.8) 07/08/22 14:54 Lymph # (Auto) 1.7 K/mm3 (1.2-5.4) 07/08/22 14:54 [place] # (Auto) 0.3 K/mm3 (0.0-0.8) 07/08/22 14:54 Eos # (Auto) 0.0 K/mm3 (0.0-0.4) 07/08/22 14:54 Baso # (Auto) 0.0 K/mm3 (0.0-0.1) 07/08/22 14:54 Seg Neutrophils % 82.0 % (40.0-70.0) H 07/08/22 14:54 Seg Neutrophils # 9.1 K/mm3 (1.8-7.7) H 07/08/22 14:54 PT 15.0 Sec. (12.2-14.9) H 07/07/22 03:38 INR 1.06 (0.87-1.13) 07/07/22 03:38 APTT 23.0 Sec. (24.2-36.6) L 07/07/22 03:38 D-Dimer 585.71 ng/mlDDU (0-234) H 07/10/22 04:21 ABG pH 7.420 pH Units (7.350-7.450) 07/11/22 04:15 ABG pCO2 39.9 mm Hg 07/11/22 04:15 ABG pO2 107.4 mm Hg (80.0-90.0) H 07/11/22 04:15 ABG HCO3 25.3 mmol/L (20.0-26.0) 07/11/22 04:15 ABG O2 Saturation 97.9 % (95.0-99.0) 07/11/22 04:15 ABG O2 Content 17.0 (0.0-44) 07/11/22 04:15 ABG Base Excess 0.8 mmol/L (-2.0-3.0) 07/11/22 04:15 ABG Hemoglobin 12.5 gm/dl (12.0-16.0) 07/11/22 04:15 ABG Carboxyhemoglobin 0.9 % (0.0-5.0) 07/11/22 04:15 ABG Methemoglobin 0.7 % (0.0-1.5) 07/11/22 04:15 Oxyhemoglobin 96.3 % (95.0-99.0) 07/11/22 04:15 FiO2 30 % 07/11/22 04:15 Sodium 144 mmol/L (137-145) 07/11/22 05:40 Potassium 4.2 mmol/L (3.6-5.0) 07/11/22 05:40 Chloride 109.8 mmol/L (98-107) H 07/11/22 05:40 Carbon Dioxide 26 mmol/L (22-30) 07/11/22 05:40 Anion Gap 12 mmol/L 07/11/22 05:40 BUN 14 mg/dL (7-17) 07/11/22 05:40 Creatinine 0.5 mg/dL (0.6-1.2) L 07/11/22 05:40 Estimated GFR > 60 ml/min 07/11/22 05:40 BUN/Creatinine Ratio 28 % 07/11/22 05:40 Glucose 160 mg/dL (65-100) H 07/11/22 05:40 POC Glucose 145 mg/dL (70-105) H 07/11/22 06:06 Lactic Acid 2.10 mmol/L (0.7-2.0) H* 07/10/22 08:24 Uric Acid 13.5 mg/dL (3.5-7.6) H 07/07/22 04:17 Calcium 8.3 mg/dL (8.4-10.2) L 07/11/22 05:40 Magnesium 3.30 mg/dL (1.7-2.3) H 07/07/22 03:38 Ferritin 631.3 ng/mL (10.0-200.0) H 07/10/22 04:21 Total Bilirubin 0.30 mg/dL (0.1-1.2) 07/10/22 04:21 AST 89 units/L (5-40) H 07/10/22 04:21 ALT 53 units/L (7-56) 07/10/22 04:21 Alkaline Phosphatase 83 units/L (35-129) 07/10/22 04:21 Ammonia 32.0 umol/L (25-60) 07/07/22 04:17 Lactate Dehydrogenase 431 units/L (91-180) H 07/10/22 04:21 Total Creatine Kinase 1745 units/L (30-135) H 07/11/22 05:40 Troponin T 0.010 ng/mL (0.00-0.029) 07/07/22 04:17 C-Reactive Protein 0.60 mg/dL (0.00-1.30) 07/10/22 04:21 Total Protein 4.9 g/dL (6.3-8.2) L 07/10/22 04:21 Albumin 2.5 g/dL (3.9-5) L 07/10/22 04:21 Albumin/Globulin Ratio 1.0 % 07/10/22 04:21 Procalcitonin 0.19 ng/mL (<0.15) 07/08/22 14:54 TSH 12.790 mlU/mL (0.270-4.200) H 07/07/22 04:17 Free T4 0.78 ng/dL (0.76-1.46) 07/07/22 04:17 Total Cortisol 47.9 mcg/dL () 07/07/22 07:43 Urine Color Yellow (Yellow) 07/07/22 03:17 Urine Turbidity Slightly cloudy (Clear) 07/07/22 03:17 Specific [place] (Man) 1.015 (1.003-1.030) 07/07/22 03:17 Ur Protein (Man) 1+ mg/dL (Negative) 07/07/22 03:17 Ur Ketones (Man) Negative (Negative) 07/07/22 03:17 Ur Nitrite (Man) Negative (Negative) 07/07/22 03:17 Urine Bilirubin (Man) Negative (Negative) 07/07/22 03:17 Leukocyte Esterase (Man) Negative (Negative) 07/07/22 03:17 Urine WBC (Auto) 7.0 /HPF (0.0-6.0) H 07/07/22 03:17 Urine RBC (Auto) 1.0 /HPF (0.0-6.0) 07/07/22 03:17 U Epithel Cells (Auto) 4.0 /HPF (0-13.0) 07/07/22 03:17 Urine Bacteria (Auto) 3+ /HPF (Negative) 07/07/22 03:17 Urine RBC (Manual) 3+ (Negative) 07/07/22 03:17 Urine Mucus 3+ /HPF 07/07/22 03:17 Urine Osmolality 744 Mosm/kg 07/07/22 16:45 Urine Creatinine 92.9 mg/dL (0.1-20.0) H 07/07/22 16:45 Urine Sodium 109 mmol/L 07/07/22 16:45 Salicylates < 0.3 mg/dL (2.8-20.0) L 07/07/22 03:38 Urine Opiates Screen Presumptive negative 07/07/22 03:17 Urine Methadone Screen Presumptive negative 07/07/22 03:17 Acetaminophen 5.0 ug/mL (10.0-30.0) L 07/07/22 03:38 Ur Barbiturates Screen Presumptive negative 07/07/22 03:17 Valproic Acid 7.0 ug/mL (50-100) L 07/07/22 03:38 Ur Phencyclidine Scrn Presumptive negative 07/07/22 03:17 Ur Amphetamines Screen Presumptive negative 07/07/22 03:17 U Benzodiazepines Scrn Presumptive negative 07/07/22 03:17 Urine Cocaine Screen Presumptive negative 07/07/22 03:17 U Marijuana (THC) Screen Presumptive negative 07/07/22 03:17 Drugs of Abuse Note Disclamer 07/07/22 03:17 Plasma/Serum Alcohol < 0.01 % (0-0.07) 07/07/22 03:38 SARS-CoV-2 (PCR) Positive (Negative) A 07/07/22 15:00 Microbiology: Microbiology 07/07/22 03:38 Peripheral/Venous Blood Culture - Preliminary NO GROWTH AFTER 4 DAYS 07/07/22 03:45 Peripheral/Venous Blood Culture - Preliminary NO GROWTH AFTER 4 DAYS 07/07/22 Unknown Tracheal Aspirate Sputum Culture - Final Klebsiella Pneumoniae Medina/IV: Voiding Method Indwelling Catheter Active Medications - Current Medications Current Medications: Generic Name Dose Route Start Last Admin Trade Name Freq PRN Reason Stop Dose Admin Acetaminophen 650 mg 07/07/22 12:09 Acetaminophen 650 Mg Rect Supp TX Q6H PRN Pain MILD(1-3)/Fever >100.5/LEE Atorvastatin Calcium 80 mg 07/10/22 22:00 07/10/22 22:51 Atorvastatin 40 Mg Tab FEEDTUBE 80 mg QHS ERROL Administration Cholecalciferol 1,000 unit 07/10/22 10:00 07/11/22 09:58 Cholecalciferol (Vit D3) 1000 Unit (25 Mcg) Tab FEEDTUBE 07/16/22 10:01 1,000 unit QDAY ERROL Administration Dexamethasone 6 mg 07/08/22 10:00 07/11/22 09:56 Dexamethasone 4 Mg/Ml Vial IV 07/17/22 10:01 6 mg Q24HR ERROL Administration Dextrose 50 ml 07/09/22 11:42 Dextrose 50% In Water (25gm) 50 Ml Syringe IV Q30MIN PRN Hypoglycemia Protocol Famotidine 20 mg 07/09/22 22:00 07/11/22 09:57 Famotidine 20 Mg Tab FEEDTUBE 20 mg BID ERROL Administration Heparin Sodium (Porcine) 5,000 unit 07/08/22 06:00 07/11/22 06:15 Heparin 5,000 Unit/1 Ml Vial SUB-Q 5,000 unit Q12H ERROL Administration Hydrophilic Ointment 1 applic 07/07/22 02:48 Lip Therapy Vaseline TP Q2HR PRN Dry Lips Remdesivir 100 mg/ Sodium 250 mls @ 500 mls/hr 07/08/22 14:00 07/10/22 14:13 Chloride IV 07/11/22 14:29 Infused Q24HR@1400 ERROL Infusion Ceftriaxone Sodium 2 gm in 100 mls @ 200 mls/hr 07/08/22 17:00 07/10/22 18:03 Rocephin/Ns 2 Gm/100 Ml IV 200 mls/hr Q24H ERROL Administration Protocol Dextrose 1,000 mls @ 50 mls/hr 07/09/22 10:00 07/10/22 17:29 D5w IV 07/11/22 23:00 100 mls/hr DIRECT ERROL Infusion Insulin Human Lispro 0 unit 07/09/22 12:00 07/11/22 06:15 Insulin Lispro 100 Unit/Ml SUB-Q Not Given Q6HR ERROL Protocol Levothyroxine Sodium 75 mcg 07/11/22 06:00 07/11/22 06:16 Levothyroxine 75 Mcg Tab FEEDTUBE 75 mcg QAM@0600 ERROL Administration Multi-Ingred Cream/Lotion/Oil/Oint 1 applic 07/07/22 02:48 Mineral Oil/Petrolatum, White Ophth Oint 3.5 Gm OU Q4HR PRN Dry Eye(s) Senna/Docusate Sodium 1 tab 07/07/22 10:00 07/11/22 09:57 Sennosides/Docusate Sodium 8.6/50 Mg Tab FEEDTUBE 1 tab BID ERROL Administration Sodium Chloride 10 ml 07/07/22 13:00 07/11/22 09:57 Sodium Chloride 0.9% 10 Ml Flush Syringe IV 10 ml BID ERROL Administration Sodium Chloride 10 ml 07/07/22 12:09 Sodium Chloride 0.9% 10 Ml Flush Syringe IV PRN PRN LINE FLUSH Sodium Chloride 50 ml 07/08/22 14:00 07/10/22 13:45 Sodium Chloride 0.9% 50 Ml Ivpb IV 07/11/22 14:01 50 ml Q24HR@1400 ERROL Administration Valproic Acid 250 mg 07/10/22 22:00 07/11/22 09:56 Valproic Acid 250 Mg/5 Ml Oral Liqd FEEDTUBE 250 mg Q12H ERROL Administration Nutrition/Malnutrition Assess - Dietary Evaluation Nutrition/Malnutrition Findings: Nutrition Notes Start: 07/07/22 13:24 Freq: Status: Active Protocol: Document 07/10/22 11:40 DAREN (Rec: 07/10/22 12:34 DAREN [id number]) Nutrition Notes Initial or Follow up Reassessment Current Diagnosis Respiratory Failure,Stroke, Hyperlipidemia Other Pertinent Diagnosis COVID-19/Pneumonia, Metabolic Encephalopathy, Hypernatremia, Thrombocytopen Current Diet TF-Vital AF 1.2 [place] @ 55 ml/hr (from D 07/10). Labs/Tests 07/10: Na 150, CL 115.0, Glu 178. Pertinent Medications 07/10: Vit D3, D5w @ 100ml/hr, Humalog 1U, Levothyroxine, others nutritionally unremarkable. Height 5 ft 6 in Weight 95.254 kg [place] Body Weight (kg) 59.09 BMI 33.9 Intake Prior to Admission Poor Weight change and time frame Pt states having, unintentionally, loss between 2 and 13 lb recently. No body weight change reported in 4 days. Weight Status Obese Subjective/Other Information RD consult for routine F/U on TF tolerance/continuation assessment. TF continues as prescribed, and well tolerated, according to ADL notes. I will adjust TF prescription to improve Pt's energy/protein provision during LOS. Pt continues on Mechanical Ventilatioin, O2 saturation @ 100%, according to Physical Assessment History notes. Pt presents caries and has missing teeth, according to Physical Assessment History notes. Pt presents bilateral-UE Non- Pitting Edema 2+, according to Physical Assessment History notes. Pt remains incontinent, according to Physical Assessment History notes. Pt presents dysphagia, hemiplegia, and aphasia, according to Physical Assessment History notes. Pt is resident of a SNF according to Progress notes. Percent of energy/protein needs met: Prescribed TF-Vital AF 1.2 [place] @ 55 ml/hr provides for energy/protein needs (1,595 Kcal/100 g) during LOS, 99% Kcal, 100% AA. Burn Absent Trauma Absent GI Symptoms Other Difficulty In Swallowing,Chewing Food Allergy No Skin Integrity/Comment Assessment WNL. Current % PO Other Energy Intake (non-severe) <75% Estimated Energy Requirement >7 days Interpretation of Weight Loss (non- 5% in 1 month severe) Fluid Accumulation Mild (non-severe) Reduced Marketing Budget Analyst Strength N/A (non-severe) Protein-Calorie Malnutrition Non-Severe #2 Nutrition Diagnosis Malnutrition Etiology Uncertain, possibly associated to ongoing and concomitant chronic metabolic conditions. As Evidenced by Signs and Symptoms Reduced PO intake(<75% Estimated Energy Requirement > 7 days), Recent unintentional loss of body weight (5% in 1 month), Pt presents bilateral- UE Non-Pitting Edema 2+, according to Physical Assessment History notes. #1 Nutrition Diagnosis Inadequate oral intake Diagnosis Progress(for reassessment Continues documentation) Is patient on ventilator? Yes Is Patient Ambulatory and/or Out of Bed No [facility] 1763.208 Kcal/Kg value to use for calculation 17 Approximate Energy Requirements Using 1619 kcal/Kg Calculation Used for Recommendations Kcal/kg Additional Notes Protein: 1.2-2 g/Kg AdjBW; 92- 154 g/day. Fluids: 1 ml/Kcal, or as per MD. Nutrition Intervention Nutrition Support: Change Formula to TF-Vital AF 1.2 [place] @ 55 ml/hr. Flush: 100 ml water Q 4 hr, or as per MD. Kcal 1,595 Protein (gm) 100 Carbohydrates (gm) 147 Fat (gm) 72 Fluid (mL) 1,078 Fiber (gm) 7 % RDI: 99% Kcal, 100% AA. Goal #1 Provide at least 75% of energy /protein needs through Enteral Feeding during LOS. Goal #2 Adjust the dietary intervention to better serve Pt's needs and clinical conditions during LOS. Follow-Up By: 07/12/22 Additional Comments Continue monitoring TF tolerance and BM. <ANAHI ANGELES - Last Filed: 07/11/22 19:43> Assessment and Plan Assessment and plan: I saw and evaluated the patient. I agree with the findings and the plan of care as documented in the Nurse Practitioner's~note, with the following corrections and additions. Hospitalist Physical - Constitutional Vitals: Temp Pulse Resp BP Pulse Ox 98.4 F 84 10 L 118/71 99 07/11/22 19:33 07/11/22 19:21 07/11/22 18:00 07/11/22 19:21 07/11/22 19:21 HEART Score - HEART Score Troponin: Troponin T 0.010 ng/mL (0.00-0.029) 07/07/22 04:17 Results - Labs CBC & Chem 7: 07/11/22 04:00 07/11/22 17:50 Labs: Laboratory Last Values WBC 11.2 K/mm3 (4.5-11.0) H 07/11/22 04:00 RBC 3.74 M/mm3 (3.65-5.03) 07/11/22 04:00 Hgb 11.9 gm/dl (10.1-14.3) 07/11/22 04:00 Hct 37.2 % (30.3-42.9) 07/11/22 04:00 MCV 99 fl (79-97) H 07/11/22 04:00 MCH 32 pg (28-32) 07/11/22 04:00 MCHC 32 % (30-34) 07/11/22 04:00 RDW 13.8 % (13.2-15.2) 07/11/22 04:00 Plt Count 73 K/mm3 (140-440) L 07/11/22 04:00 Lymph % (Auto) 15.2 % (13.4-35.0) 07/08/22 14:54 [place] % (Auto) 2.7 % (0.0-7.3) 07/08/22 14:54 Eos % (Auto) 0.0 % (0.0-4.3) 07/08/22 14:54 Baso % (Auto) 0.1 % (0.0-1.8) 07/08/22 14:54 Lymph # (Auto) 1.7 K/mm3 (1.2-5.4) 07/08/22 14:54 [place] # (Auto) 0.3 K/mm3 (0.0-0.8) 07/08/22 14:54 Eos # (Auto) 0.0 K/mm3 (0.0-0.4) 07/08/22 14:54 Baso # (Auto) 0.0 K/mm3 (0.0-0.1) 07/08/22 14:54 Seg Neutrophils % 82.0 % (40.0-70.0) H 07/08/22 14:54 Seg Neutrophils # 9.1 K/mm3 (1.8-7.7) H 07/08/22 14:54 PT 15.0 Sec. (12.2-14.9) H 07/07/22 03:38 INR 1.06 (0.87-1.13) 07/07/22 03:38 APTT 23.0 Sec. (24.2-36.6) L 07/07/22 03:38 D-Dimer 585.71 ng/mlDDU (0-234) H 07/10/22 04:21 ABG pH 7.420 pH Units (7.350-7.450) 07/11/22 04:15 ABG pCO2 39.9 mm Hg 07/11/22 04:15 ABG pO2 107.4 mm Hg (80.0-90.0) H 07/11/22 04:15 ABG HCO3 25.3 mmol/L (20.0-26.0) 07/11/22 04:15 ABG O2 Saturation 97.9 % (95.0-99.0) 07/11/22 04:15 ABG O2 Content 17.0 (0.0-44) 07/11/22 04:15 ABG Base Excess 0.8 mmol/L (-2.0-3.0) 07/11/22 04:15 ABG Hemoglobin 12.5 gm/dl (12.0-16.0) 07/11/22 04:15 ABG Carboxyhemoglobin 0.9 % (0.0-5.0) 07/11/22 04:15 ABG Methemoglobin 0.7 % (0.0-1.5) 07/11/22 04:15 Oxyhemoglobin 96.3 % (95.0-99.0) 07/11/22 04:15 FiO2 30 % 07/11/22 04:15 Sodium 145 mmol/L (137-145) 07/11/22 17:50 Potassium 4.4 mmol/L (3.6-5.0) 07/11/22 17:50 Chloride 108.4 mmol/L (98-107) H 07/11/22 17:50 Carbon Dioxide 28 mmol/L (22-30) 07/11/22 17:50 Anion Gap 13 mmol/L 07/11/22 17:50 BUN 14 mg/dL (7-17) 07/11/22 17:50 Creatinine 0.5 mg/dL (0.6-1.2) L 07/11/22 17:50 Estimated GFR > 60 ml/min 07/11/22 17:50 BUN/Creatinine Ratio 28 % 07/11/22 17:50 Glucose 191 mg/dL (65-100) H 07/11/22 17:50 POC Glucose 182 mg/dL (70-105) H 07/11/22 17:44 Lactic Acid 2.10 mmol/L (0.7-2.0) H* 07/10/22 08:24 Uric Acid 13.5 mg/dL (3.5-7.6) H 07/07/22 04:17 Calcium 8.2 mg/dL (8.4-10.2) L 07/11/22 17:50 Magnesium 3.30 mg/dL (1.7-2.3) H 07/07/22 03:38 Ferritin 631.3 ng/mL (10.0-200.0) H 07/10/22 04:21 Total Bilirubin 0.30 mg/dL (0.1-1.2) 07/10/22 04:21 AST 89 units/L (5-40) H 07/10/22 04:21 ALT 53 units/L (7-56) 07/10/22 04:21 Alkaline Phosphatase 83 units/L (35-129) 07/10/22 04:21 Ammonia 32.0 umol/L (25-60) 07/07/22 04:17 Lactate Dehydrogenase 431 units/L (91-180) H 07/10/22 04:21 Total Creatine Kinase 1745 units/L (30-135) H 07/11/22 05:40 Troponin T 0.010 ng/mL (0.00-0.029) 07/07/22 04:17 C-Reactive Protein 0.60 mg/dL (0.00-1.30) 07/10/22 04:21 Total Protein 4.9 g/dL (6.3-8.2) L 07/10/22 04:21 Albumin 2.5 g/dL (3.9-5) L 07/10/22 04:21 Albumin/Globulin Ratio 1.0 % 07/10/22 04:21 Procalcitonin 0.19 ng/mL (<0.15) 07/08/22 14:54 TSH 12.790 mlU/mL (0.270-4.200) H 07/07/22 04:17 Free T4 0.78 ng/dL (0.76-1.46) 07/07/22 04:17 Total Cortisol 47.9 mcg/dL () 07/07/22 07:43 Urine Color Yellow (Yellow) 07/07/22 03:17 Urine Turbidity Slightly cloudy (Clear) 07/07/22 03:17 Specific [place] (Man) 1.015 (1.003-1.030) 07/07/22 03:17 Ur Protein (Man) 1+ mg/dL (Negative) 07/07/22 03:17 Ur Ketones (Man) Negative (Negative) 07/07/22 03:17 Ur Nitrite (Man) Negative (Negative) 07/07/22 03:17 Urine Bilirubin (Man) Negative (Negative) 07/07/22 03:17 Leukocyte Esterase (Man) Negative (Negative) 07/07/22 03:17 Urine WBC (Auto) 7.0 /HPF (0.0-6.0) H 07/07/22 03:17 Urine RBC (Auto) 1.0 /HPF (0.0-6.0) 07/07/22 03:17 U Epithel Cells (Auto) 4.0 /HPF (0-13.0) 07/07/22 03:17 Urine Bacteria (Auto) 3+ /HPF (Negative) 07/07/22 03:17 Urine RBC (Manual) 3+ (Negative) 07/07/22 03:17 Urine Mucus 3+ /HPF 07/07/22 03:17 Urine Osmolality 744 Mosm/kg 07/07/22 16:45 Urine Creatinine 92.9 mg/dL (0.1-20.0) H 07/07/22 16:45 Urine Sodium 109 mmol/L 07/07/22 16:45 Salicylates < 0.3 mg/dL (2.8-20.0) L 07/07/22 03:38 Urine Opiates Screen Presumptive negative 07/07/22 03:17 Urine Methadone Screen Presumptive negative 07/07/22 03:17 Acetaminophen 5.0 ug/mL (10.0-30.0) L 07/07/22 03:38 Ur Barbiturates Screen Presumptive negative 07/07/22 03:17 Valproic Acid 7.0 ug/mL (50-100) L 07/07/22 03:38 Ur Phencyclidine Scrn Presumptive negative 07/07/22 03:17 Ur Amphetamines Screen Presumptive negative 07/07/22 03:17 U Benzodiazepines Scrn Presumptive negative 07/07/22 03:17 Urine Cocaine Screen Presumptive negative 07/07/22 03:17 U Marijuana (THC) Screen Presumptive negative 07/07/22 03:17 Drugs of Abuse Note Disclamer 07/07/22 03:17 Plasma/Serum Alcohol < 0.01 % (0-0.07) 07/07/22 03:38 SARS-CoV-2 (PCR) Positive (Negative) A 07/07/22 15:00 Microbiology: Microbiology 07/07/22 03:38 Peripheral/Venous Blood Culture - Preliminary NO GROWTH AFTER 4 DAYS 07/07/22 03:45 Peripheral/Venous Blood Culture - Preliminary NO GROWTH AFTER 4 DAYS 07/07/22 Unknown Tracheal Aspirate Sputum Culture - Final Klebsiella Pneumoniae Medina/IV: Voiding Method Indwelling Catheter Active Medications - Current Medications Current Medications: Generic Name Dose Route Start Last Admin Trade Name Freq PRN Reason Stop Dose Admin Acetaminophen 650 mg 07/07/22 12:09 Acetaminophen 650 Mg Rect Supp TX Q6H PRN Pain MILD(1-3)/Fever >100.5/LEE Atorvastatin Calcium 80 mg 07/10/22 22:00 07/10/22 22:51 Atorvastatin 40 Mg Tab FEEDTUBE 80 mg QHS ERROL Administration Cholecalciferol 1,000 unit 07/10/22 10:00 07/11/22 09:58 Cholecalciferol (Vit D3) 1000 Unit (25 Mcg) Tab FEEDTUBE 07/16/22 10:01 1,000 unit QDAY ERROL Administration Dexamethasone 6 mg 07/08/22 10:00 07/11/22 09:56 Dexamethasone 4 Mg/Ml Vial IV 07/17/22 10:01 6 mg Q24HR ERROL Administration Dextrose 50 ml 07/09/22 11:42 Dextrose 50% In Water (25gm) 50 Ml Syringe IV Q30MIN PRN Hypoglycemia Protocol Famotidine 20 mg 07/09/22 22:00 07/11/22 09:57 Famotidine 20 Mg Tab FEEDTUBE 20 mg BID ERROL Administration Heparin Sodium (Porcine) 5,000 unit 07/08/22 06:00 07/11/22 18:06 Heparin 5,000 Unit/1 Ml Vial SUB-Q 5,000 unit Q12H ERROL Administration Hydrophilic Ointment 1 applic 07/07/22 02:48 Lip Therapy Vaseline TP Q2HR PRN Dry Lips Ceftriaxone Sodium 2 gm in 100 mls @ 200 mls/hr 07/08/22 17:00 07/11/22 18:05 Rocephin/Ns 2 Gm/100 Ml IV 200 mls/hr Q24H ERROL Administration Protocol Dextrose 1,000 mls @ 50 mls/hr 07/09/22 10:00 07/10/22 17:29 D5w IV 07/11/22 23:00 100 mls/hr DIRECT ERROL Infusion Insulin Human Lispro 0 unit 07/09/22 12:00 07/11/22 18:07 Insulin Lispro 100 Unit/Ml SUB-Q 1 unit Q6HR ERROL Administration Protocol Levothyroxine Sodium 75 mcg 07/11/22 06:00 07/11/22 06:16 Levothyroxine 75 Mcg Tab FEEDTUBE 75 mcg QAM@0600 ERROL Administration Multi-Ingred Cream/Lotion/Oil/Oint 1 applic 07/07/22 02:48 Mineral Oil/Petrolatum, White Ophth Oint 3.5 Gm OU Q4HR PRN Dry Eye(s) Senna/Docusate Sodium 1 tab 07/07/22 10:00 07/11/22 09:57 Sennosides/Docusate Sodium 8.6/50 Mg Tab FEEDTUBE 1 tab BID ERROL Administration Sodium Chloride 10 ml 07/07/22 13:00 07/11/22 09:57 Sodium Chloride 0.9% 10 Ml Flush Syringe IV 10 ml BID ERROL Administration Sodium Chloride 10 ml 07/07/22 12:09 Sodium Chloride 0.9% 10 Ml Flush Syringe IV PRN PRN LINE FLUSH Valproic Acid 250 mg 07/10/22 22:00 07/11/22 09:56 Valproic Acid 250 Mg/5 Ml Oral Liqd FEEDTUBE 250 mg Q12H ERROL Administration Nutrition/Malnutrition Assess - Dietary Evaluation Nutrition/Malnutrition Findings: Nutrition Notes Start: 07/07/22 13:24 Freq: Status: Active Protocol: Document 07/10/22 11:40 DAREN (Rec: 07/10/22 12:34 DAREN [id number]) Nutrition Notes Initial or Follow up Reassessment Current Diagnosis Respiratory Failure,Stroke, Hyperlipidemia Other Pertinent Diagnosis COVID-19/Pneumonia, Metabolic Encephalopathy, Hypernatremia, Thrombocytopen Current Diet TF-Vital AF 1.2 Jameson @ 55 ml/hr (from D 07/10). Labs/Tests 07/10: Na 150, CL 115.0, Glu 178. Pertinent Medications 07/10: Vit D3, D5w @ 100ml/hr, Humalog 1U, Levothyroxine, others nutritionally unremarkable. Height 5 ft 6 in Weight 95.254 kg Jewett Body Weight (kg) 59.09 BMI 33.9 Intake Prior to Admission Poor Weight change and time frame Pt states having, unintentionally, loss between 2 and 13 lb recently. No body weight change reported in 4 days. Weight Status Obese Subjective/Other Information RD consult for routine F/U on TF tolerance/continuation assessment. TF continues as prescribed, and well tolerated, according to ADL notes. I will adjust TF prescription to improve Pt's energy/protein provision during LOS. Pt continues on Mechanical Ventilatioin, O2 saturation @ 100%, according to Physical Assessment History notes. Pt presents caries and has missing teeth, according to Physical Assessment History notes. Pt presents bilateral-UE Non- Pitting Edema 2+, according to Physical Assessment History notes. Pt remains incontinent, according to Physical Assessment History notes. Pt presents dysphagia, hemiplegia, and aphasia, according to Physical Assessment History notes. Pt is resident of a SNF according to Progress notes. Percent of energy/protein needs met: Prescribed TF-Vital AF 1.2 Jameson @ 55 ml/hr provides for energy/protein needs (1,595 Kcal/100 g) during LOS, 99% Kcal, 100% AA. Burn Absent Trauma Absent GI Symptoms Other Difficulty In Swallowing,Chewing Food Allergy No Skin Integrity/Comment Assessment WNL. Current % PO Other Energy Intake (non-severe) <75% Estimated Energy Requirement >7 days Interpretation of Weight Loss (non- 5% in 1 month severe) Fluid Accumulation Mild (non-severe) Reduced Marketing Budget Analyst Strength N/A (non-severe) Protein-Calorie Malnutrition Non-Severe #2 Nutrition Diagnosis Malnutrition Etiology Uncertain, possibly associated to ongoing and concomitant chronic metabolic conditions. As Evidenced by Signs and Symptoms Reduced PO intake(<75% Estimated Energy Requirement > 7 days), Recent unintentional loss of body weight (5% in 1 month), Pt presents bilateral- UE Non-Pitting Edema 2+, according to Physical Assessment History notes. #1 Nutrition Diagnosis Inadequate oral intake Diagnosis Progress(for reassessment Continues documentation) Is patient on ventilator? Yes Is Patient Ambulatory and/or Out of Bed No REE-([facility]-confined to bed) 1763.208 Kcal/Kg value to use for calculation 17 Approximate Energy Requirements Using 1619 kcal/Kg Calculation Used for Recommendations Kcal/kg Additional Notes Protein: 1.2-2 g/Kg AdjBW; 92- 154 g/day. Fluids: 1 ml/Kcal, or as per MD. Nutrition Intervention Nutrition Support: Change Formula to TF-Vital AF 1.2 Jameson @ 55 ml/hr. Flush: 100 ml water Q 4 hr, or as per MD. Kcal 1,595 Protein (gm) 100 Carbohydrates (gm) 147 Fat (gm) 72 Fluid (mL) 1,078 Fiber (gm) 7 % RDI: 99% Kcal, 100% AA. Goal #1 Provide at least 75% of energy /protein needs through Enteral Feeding during LOS. Goal #2 Adjust the dietary intervention to better serve Pt's needs and clinical conditions during LOS. Follow-Up By: 07/12/22 Additional Comments Continue monitoring TF tolerance and BM.
[2022-07-11 12:38] LABS: Blood Urea Nitrogen 13 mg/dL (7-17); Calcium 8.2 mg/dL (8.4-10.2); Hemolysis Index 16
[2022-07-11 12:42] LABS: BUN/Creatinine Ratio 26
--- NOTE | 2022-07-11 12:46 | Progress Note ---
Assessment and Plan Cultures: SARS CoV2 PCR: Positive 07/07/2022 blood culture: No growth 07/07/2022 sputum culture: Klebsiella A/P: 76-year-old female with prior CVA, hemiplegia, aphasia, dementia, history of pulmonary embolism was admitted from the custodial with altered mental status, hypoxia. Was seen in the ED, intubated for airway protection: #COVID-19: CXR without significant pneumonia. Procalcitonin 0.19. Lactate 4.7. CRP 1.6. #Acute hypoxic respiratory failure: On mechanical ventilation. #Acute encephalopathy: Likely metabolic, sodium was significantly elevated on admission #Chronic CVA, dementia #Transaminitis: Mild, could be related to COVID-19, there was mild CPK elevation as well. Improving. Recs: -continue with IV/PO Dexamethasone x 10 days -continue IV remdesivir x 5 days -prophylactic anticoagulation based on d-dimer per hospital protocol -Klebsiella on sputum culture, ?colonization, today is day 5 of abx, stop Ceftriaxone after today's dose Vanessa Pires MD, FACP, [facility] O: [phone] F: [phone] C: [phone] Subjective Date of service: 07/11/22 Principal diagnosis: Hypernatremia Interval history: Afebrile. Remains on the vent. Objective - Exam Narrative Exam: Physical Exam: Constitutional: sedated, intubated, on the vent Head, Ears, Nose: Normocephalic, atraumatic. External ears, nose normal Eyes: Conjunctivae/corneas clear. No icterus. No ptosis. Neck: intubated Oral: intubated Cardiovascular: S1, S2 + Respiratory: AE fair bilaterally and equal GI: Soft, bowel sounds + Musculoskeletal: No pedal edema, no cyanosis. Skin: No rash or abscess Hem/Lymphatic: No palpable cervical or supraclavicular nodes. No lymphangitis Psych: no agitation Neurological: sedated, intubated, on the vent, exam limited - Constitutional Vitals: Vital Signs Temp Pulse Resp BP Pulse Ox 97.7 F 76 12 101/56 100 07/11/22 08:00 07/11/22 12:00 07/11/22 12:00 07/11/22 12:00 07/11/22 12:00 Temperature -Last 24 Hours Temperature 97.7 F Temperature 97.7 F Temperature 98.1 F Temperature 98.7 F Temperature 98.1 F - Labs CBC & Chem 7: 07/11/22 04:00 07/11/22 11:59 Labs: Abnormal lab results 07/10/22 07/10/22 07/10/22 Range/Units 11:31 12:53 17:37 WBC (4.5-11.0) K/mm3 MCV (79-97) fl Plt Count (140-440) K/mm3 ABG pO2 (80.0-90.0) mm Hg Chloride 110.9 H (98-107) mmol/L Creatinine 0.5 L (0.6-1.2) mg/dL Glucose 200 H (65-100) mg/dL POC Glucose 166 H 237 H (70-105) mg/dL Calcium 8.3 L (8.4-10.2) mg/dL Total Creatine Kinase (30-135) units/L 07/10/22 07/10/22 07/10/22 Range/Units 18:53 23:30 23:57 WBC (4.5-11.0) K/mm3 MCV (79-97) fl Plt Count (140-440) K/mm3 ABG pO2 (80.0-90.0) mm Hg Chloride 109.5 H 110.2 H (98-107) mmol/L Creatinine 0.5 L 0.5 L (0.6-1.2) mg/dL Glucose 243 H 208 H (65-100) mg/dL POC Glucose 195 H (70-105) mg/dL Calcium 8.1 L 8.1 L (8.4-10.2) mg/dL Total Creatine Kinase (30-135) units/L 07/11/22 07/11/22 07/11/22 Range/Units 04:00 04:15 05:40 WBC 11.2 H (4.5-11.0) K/mm3 MCV 99 H (79-97) fl Plt Count 73 L (140-440) K/mm3 ABG pO2 107.4 H (80.0-90.0) mm Hg Chloride 109.8 H (98-107) mmol/L Creatinine 0.5 L (0.6-1.2) mg/dL Glucose 160 H (65-100) mg/dL POC Glucose (70-105) mg/dL Calcium 8.3 L (8.4-10.2) mg/dL Total Creatine Kinase (30-135) units/L 07/11/22 07/11/22 07/11/22 Range/Units 05:40 06:06 11:55 WBC (4.5-11.0) K/mm3 MCV (79-97) fl Plt Count (140-440) K/mm3 ABG pO2 (80.0-90.0) mm Hg Chloride (98-107) mmol/L Creatinine (0.6-1.2) mg/dL Glucose (65-100) mg/dL POC Glucose 145 H 150 H (70-105) mg/dL Calcium (8.4-10.2) mg/dL Total Creatine Kinase 1745 H (30-135) units/L 07/11/22 Range/Units 11:59 WBC (4.5-11.0) K/mm3 MCV (79-97) fl Plt Count (140-440) K/mm3 ABG pO2 (80.0-90.0) mm Hg Chloride 107.8 H (98-107) mmol/L Creatinine 0.5 L (0.6-1.2) mg/dL Glucose 150 H (65-100) mg/dL POC Glucose (70-105) mg/dL Calcium 8.2 L (8.4-10.2) mg/dL Total Creatine Kinase (30-135) units/L
[2022-07-11] MEDS: REMDESIVIR 100 MG in SODIUM CHLORIDE 0.9% 250ML 250 ML IV SCH (13:35)
[2022-07-11] MEDS: SODIUM CHLORIDE 0.9% 50 ML IVPB IV SCH (13:36)
--- NOTE | 2022-07-11 14:15 | Magnetic Resonance Report ---
MR brain wo con INDICATION / CLINICAL INFORMATION: Encephelopathy. TECHNIQUE: Multiplanar, multisequence MR images of the brain were obtained. COMPARISON: 07/07/22 FINDINGS: INTRACRANIAL: No restricted diffusion. No hemorrhage. Ventricular caliber is normal. No extra-axial c ollection. No mass. No herniation. Partially empty sella. Major intracranial vascular flow voids ar e preserved. Encephalomalacia and gliosis in the left frontal lobe and left cerebellum. Moderate juwan ntity of periventricular and centrum semiovale T2 white matter hyperintensities most consistent with moderate sequela of chronic microvascular disease. Small quantity of scattered foci of susceptibility in the supratentorial white matter likely related to remote microhemorrhages. ORBITS: No significant abnormality of visualized orbits. SINUSES / MASTOIDS: Small left mastoid effusion and mild mucosal thickening in the paranasal sinuses. ADDITIONAL FINDINGS: None. IMPRESSION: 1. No acute findings. 2. Remote infarctions in the left frontal lobe and left cerebellum. 3. Moderate sequela of chronic microvascular disease. Signer Name: Brad Black MD Signed: 07/11/2022 2:11 PM Workstation Name: [id number]
[2022-07-11] MEDS: cefTRIAXone/NS 2 GM/100 ML 2 GM/100 ML BAG IV SCH (18:05)
[2022-07-11 18:39] LABS: Blood Urea Nitrogen 14 mg/dL (7-17); Calcium 8.2 mg/dL (8.4-10.2); Hemolysis Index 20
[2022-07-11 18:42] LABS: BUN/Creatinine Ratio 28
[2022-07-12 00:42] LABS: Blood Urea Nitrogen 13 mg/dL (7-17); Calcium 7.9 mg/dL (8.4-10.2); Hemolysis Index 15
[2022-07-12 00:49] LABS: BUN/Creatinine Ratio 33
[2022-07-12] MEDS: INSULIN LISPRO 100 UNIT/ML SUB-Q SCH ×3 (00:51→17:33)
[2022-07-12 05:02] LABS: Hematocrit 32.8 % (30.3-42.9); Hemoglobin 10.9 gm/dl (10.1-14.3); Mean Corpuscular HGB Conc 33 % (30-34); Mean Corpuscular Volume 99 fl (79-97); Red Blood Count 3.33 M/mm3 (3.65-5.03); Red Cell Distribution Width 14.1 % (13.2-15.2)
[2022-07-12 05:07] LABS: Platelet Count 68 K/mm3 (140-440)
[2022-07-12 05:16] LABS: ABG Base Excess 3.7 mmol/L (-2.0-3.0); ABG HCO3 27.9 mmol/L (20.0-26.0); ABG Methemoglobin 0.8 % (0.0-1.5); ABG PCO2 40.7 mm Hg; ABG PH 7.453 pH Units (7.350-7.450); ABG PO2 107.9 mm Hg (80.0-90.0)
[2022-07-12 05:25] LABS: C-Reactive Protein 0.3 mg/dL (0.00-1.30)
[2022-07-12] MEDS: HEPARIN 5,000 UNIT/1 ML VIAL SUB-Q SCH ×2 (06:37→17:33)
[2022-07-12] MEDS: LEVOTHYROXINE 75 MCG TAB FEEDTUBE SCH (06:37)
[2022-07-12] MEDS: dexAMETHasone 4 MG/ML VIAL IV SCH (09:46)
[2022-07-12] MEDS: FAMOTIDINE 20 MG TAB FEEDTUBE SCH ×2 (09:47→22:04)
[2022-07-12] MEDS: SENNOSIDES/DOCUSATE SODIUM 8.6/50 MG TAB FEEDTUBE SCH ×2 (09:47→22:05)
[2022-07-12] MEDS: VALPROIC ACID 250 MG/5 ML ORAL LIQD FEEDTUBE SCH ×2 (09:47→22:04)
[2022-07-12] MEDS: CHOLECALCIFEROL (VIT D3) 1000 UNIT (25 mcg) TAB FEEDTUBE SCH (09:48)
--- NOTE | 2022-07-12 10:57 | Progress Note ---
Assessment and Plan Cultures: SARS CoV2 PCR: Positive 07/07/2022 blood culture: No growth 07/07/2022 sputum culture: Klebsiella A/P: 76-year-old female with prior CVA, hemiplegia, aphasia, dementia, history of pulmonary embolism was admitted from the care home with altered mental status, hypoxia. Was seen in the ED, intubated for airway protection: #COVID-19: CXR without significant pneumonia. Procalcitonin 0.19. Lactate 4.7. CRP 1.6. S/P abx and remdesivir. #Acute hypoxic respiratory failure: On mechanical ventilation. 30% FiO2. #Acute encephalopathy: Likely metabolic, sodium was significantly elevated on admission. MRI did not show any acute abnormality. #Chronic CVA, dementia #Transaminitis: Mild, could be related to COVID-19, there was mild CPK elevation as well. Improving. Recs: -Completed Remdesivir -Completed antibiotics -CRP 0.3. Continue steroids, complete total 10 days Vanessa Pires MD, FACP, [facility] O: [phone] F: [phone] C: [phone] Subjective Date of service: 07/12/22 Principal diagnosis: Hypernatremia Interval history: Afebrile. Remains on the vent. 30% FiO2. CRP 0.3 Objective - Exam Narrative Exam: Physical Exam: Constitutional: intubated, on the vent Head, Ears, Nose: Normocephalic, atraumatic. External ears, nose normal Eyes: Conjunctivae/corneas clear. No icterus. No ptosis. Neck: intubated Oral: intubated Cardiovascular: S1, S2 + Respiratory: AE fair bilaterally and equal GI: Soft, bowel sounds + Musculoskeletal: No pedal edema, no cyanosis. Skin: No rash or abscess Hem/Lymphatic: No palpable cervical or supraclavicular nodes. No lymphangitis Psych: no agitation Neurological: intubated, on the vent, exam limited - Constitutional Vitals: Vital Signs Temp Pulse Resp BP Pulse Ox 97.7 F 87 11 L 107/63 100 07/12/22 07:00 07/12/22 10:00 07/12/22 10:00 07/12/22 10:07/12/22 10:00 Temperature -Last 24 Hours Temperature 97.7 F Temperature 97.2 F Temperature 98.1 F Temperature 98.4 F Temperature 97.6 F Temperature 97.8 F - Labs CBC & Chem 7: 07/12/22 04:00 07/12/22 00:10 Labs: Abnormal lab results 07/11/22 07/11/22 07/11/22 Range/Units 11:55 11:59 17:44 WBC (4.5-11.0) K/mm3 RBC (3.65-5.03) M/mm3 MCV (79-97) fl MCH (28-32) pg Plt Count (140-440) K/mm3 D-Dimer (0-234) ng/mlDDU ABG pH (7.350-7.450) pH Units ABG pO2 (80.0-90.0) mm Hg ABG HCO3 (20.0-26.0) mmol/L ABG Base Excess (-2.0-3.0) mmol/L ABG Hemoglobin (12.0-16.0) gm/dl Chloride 107.8 H (98-107) mmol/L Creatinine 0.5 L (0.6-1.2) mg/dL Glucose 150 H (65-100) mg/dL POC Glucose 150 H 182 H (70-105) mg/dL Calcium 8.2 L (8.4-10.2) mg/dL Ferritin (10.0-200.0) ng/mL Lactate Dehydrogenase (91-180) units/L 07/11/22 07/12/22 07/12/22 Range/Units 17:50 00:10 00:12 WBC (4.5-11.0) K/mm3 RBC (3.65-5.03) M/mm3 MCV (79-97) fl MCH (28-32) pg Plt Count (140-440) K/mm3 D-Dimer (0-234) ng/mlDDU ABG pH (7.350-7.450) pH Units ABG pO2 (80.0-90.0) mm Hg ABG HCO3 (20.0-26.0) mmol/L ABG Base Excess (-2.0-3.0) mmol/L ABG Hemoglobin (12.0-16.0) gm/dl Chloride 108.4 H (98-107) mmol/L Creatinine 0.5 L 0.4 L (0.6-1.2) mg/dL Glucose 191 H 163 H (65-100) mg/dL POC Glucose 154 H (70-105) mg/dL Calcium 8.2 L 7.9 L (8.4-10.2) mg/dL Ferritin (10.0-200.0) ng/mL Lactate Dehydrogenase (91-180) units/L 07/12/22 07/12/22 07/12/22 Range/Units 04:00 04:00 04:00 WBC (4.5-11.0) K/mm3 RBC (3.65-5.03) M/mm3 MCV (79-97) fl MCH (28-32) pg Plt Count (140-440) K/mm3 D-Dimer 925.80 H (0-234) ng/mlDDU ABG pH (7.350-7.450) pH Units ABG pO2 (80.0-90.0) mm Hg ABG HCO3 (20.0-26.0) mmol/L ABG Base Excess (-2.0-3.0) mmol/L ABG Hemoglobin (12.0-16.0) gm/dl Chloride (98-107) mmol/L Creatinine (0.6-1.2) mg/dL Glucose (65-100) mg/dL POC Glucose (70-105) mg/dL Calcium (8.4-10.2) mg/dL Ferritin 519.5 H (10.0-200.0) ng/mL Lactate Dehydrogenase 444 H (91-180) units/L 07/12/22 07/12/22 07/12/22 Range/Units 04:00 05:00 05:03 WBC 11.7 H (4.5-11.0) K/mm3 RBC 3.33 L (3.65-5.03) M/mm3 MCV 99 H (79-97) fl MCH 33 H (28-32) pg Plt Count 68 L (140-440) K/mm3 D-Dimer (0-234) ng/mlDDU ABG pH 7.453 H (7.350-7.450) pH Units ABG pO2 107.9 H (80.0-90.0) mm Hg ABG HCO3 27.9 H (20.0-26.0) mmol/L ABG Base Excess 3.7 H (-2.0-3.0) mmol/L ABG Hemoglobin 10.9 L (12.0-16.0) gm/dl Chloride (98-107) mmol/L Creatinine (0.6-1.2) mg/dL Glucose (65-100) mg/dL POC Glucose 174 H (70-105) mg/dL Calcium (8.4-10.2) mg/dL Ferritin (10.0-200.0) ng/mL Lactate Dehydrogenase (91-180) units/L
--- NOTE | 2022-07-12 13:27 | Progress Note ---
<GEORGE DAVIS - Last Filed: 07/12/22 18:14> Assessment and Plan Assessment and plan: This is a 76-year-old female with CVA, pulmonary embolism, hypothyroidism and JUJU admitted with electrolyte imbalances, hypoxic respiratory failure and COVID- 19 pneumonia Hospital Course to Date: 07/08: Patient noted to be COVID-positive, started on remdesivir, Decadron, ceftriaxone azithromycin and infectious disease was consulted yesterday. This morning patient is on any sedation, PICC line to be placed. RT to attempt PSV. Started on free water flushes and tube feedings. Continues on D5 half-normal saline. 07/09: Patient remains encephalopathic, not on any sedation. Hypernatremia is improving, on FWF Q4hrs and D5w gtt per Nephro. If hypernatremia continue to improve and patient's mentation is unchanged, will get a repeat CT to r/o intracranial abnormalities. Patient remains afebrile, leukocytosis improved, and VSS. Continue current IV abx per ID. Patient failed PSV trial again today, trevon nue PSV trial as tolerated 07/10: Remains stable on the vent, tolerating PSV trial this am. sodium continue to improve but no change in mental status. D/w [facility] will get MRI brain to r/o any intracranial abnormalities, EEG also ordered to r/o seizures. Continue FWF and D5w gtt per Nephro. Continue IV steroids and current IV abx per ID. 07/11: Hypernatremia resolved, mentation is unchanged, remains on low vent setting. EEG noted, and MRI brain pending. Will consult Neurology for further recommendations. Continue daily PSV trial as tolerated. 07/12: Appears more awake this morning but still not following any commands. MRI brain with no acute findings and sodium normalized. Awaiting Neuro consult. Continue daily PSV trial as tolerated. Patient's daughter was updated via phone, all questions and concerns were addressed at this time. Medical records requested from [facility] and [facility]. Neuro: Acute metabolic encephalopathy, h/o CVA with hemiplegia, dysphagia, aphasia, dementia -Reorientation as needed -Maintain sleep-wake cycle -Resume home Lipitor -As needed analgesia -CT head shows no acute intracranial hemorrhage, multiple chronic appearing infarcts including left MCA distribution, left cerebral hemisphere and within the right basal ganglia -Depakene -EEG noted -MRI noted -Neurology consult pending Cardiac: h/o HLD -Resume home Lipitor -Blood pressure monitoring per protocol Respiratory: Acute hypoxic respiratory failure, h/o JUJU, pulmonary embolism -CCM consulted, appreciate recommendations -Intubated on 07/07 with a 7.50 ETT at 24 the lips -A.m. vent settings:PRVC-30%,6,12,400 -See RT notes for titration -A.m. ABG and CXR noted -VAP bundle -SPO2 monitoring GI: NAD -PPI -NTR consulted for tube feedings -BR: Senokot-S : Hypernatremia(resolved), hypokalemia, rhabdomyolysis -Nephrology consulted, appreciate recommendations -Monitor intake and output -Free water flush -BMP every 6 per nephrology -Renally dose medications -Avoid nephrotoxic medications -IVF with KCL, D5 -Replete potassium -Trend BMP ID: COVID Pneumonia, lactic acidosis -Infectious disease consulted, appreciate recommendation -Antibiotic therapy per ID -Remdesivir for 5 days -Dexamethasone for 10 days -Contact/droplet precautions -f/u blood culture -Trend COVID-19 inflammatory markers -Monitor WBC and temperature curve -Prophylactic anticoagulation based on D-dimer per hospital protocol Heme: Thrombocytopenia -Patient presented with low plt -Plt continue to trend down, but less than 50% of admit count -No s/s of any active bleeding, H&H stable -Continue to trend CBC -On Heparin SubQ -Transfuse for plt less than 20 and hgb less than 7 Endo: h/o hypothyroidism -Avoid hypoglycemia -SSI -Accu-Cheks q. 6 -Long-acting insulin, titrate as needed -Resume home Synthroid GI/DVT Prophylaxis -PPI- pepcid -Heparin SubQ -SCDs to bilateral lower extremities while in bed The high probability of a clinically significant, sudden or life threatening deterioration of the [multi] system(s) required my full and direct attention, intervention and personal management. The aggregate critical care time was [60] minutes. This time is in addition to time spent performing reported procedures but includes the following: [x] Data Review and interpretation [x] Patient assessment and monitoring of vital signs [x] Documentation [x] Medication orders and management Disposition Plan: ICU Total Time Spent with Patient (Minutes): 60 History Interval history: Patient seen and examined at the bedside. Remains on the vent. Appears more awake this morning but does follow commands with nonpurposeful movements. VSS. DELMI overnight Hospitalist Physical - Physical exam Narrative exam: General appearance: Present: other (Intubated, unresponsive, not on any sedations) - EENT Eyes: Present: PERRL - Respiratory Respiratory effort: normal Respiratory: bilateral: rhonchi - Cardiovascular Rhythm: regular Heart Sounds: Present: S1 & S2 - Extremities Extremities: no ischemia, pulses intact, pulses symmetrical Extremity abnormal: edema - Peripheral Assessment Generalized Edema Type: Non-pitting Edema Degree: 2+ Capillary Refill: < 3 seconds Skin Temperature: Warm Peripheral Pulses: within normal limits - Abdominal General gastrointestinal: soft, non-distended, normal bowel sounds - Integumentary Integumentary: Present: warm, dry - Psychiatric Psychiatric: other (Intubated, unresponsive, not on any sedations) - Neurologic Neurologic: other (Intubated, unresponsive, not on any sedations. Open eyes spontaneously, does not track, not following commands, with nonpurposeful movements) - Allied Health Allied health notes reviewed: nursing, case management - Constitutional Vitals: Temp Pulse Resp BP Pulse Ox 97.7 F 86 10 L 94/68 100 07/12/22 11:00 07/12/22 13:00 07/12/22 13:00 07/12/22 13:00 07/12/22 13:00 HEART Score - HEART Score Troponin: Troponin T 0.010 ng/mL (0.00-0.029) 07/07/22 04:17 Results - Labs CBC & Chem 7: 07/12/22 04:00 07/12/22 00:10 Labs: Laboratory Last Values WBC 11.7 K/mm3 (4.5-11.0) H 07/12/22 04:00 RBC 3.33 M/mm3 (3.65-5.03) L 07/12/22 04:00 Hgb 10.9 gm/dl (10.1-14.3) 07/12/22 04:00 Hct 32.8 % (30.3-42.9) 07/12/22 04:00 MCV 99 fl (79-97) H 07/12/22 04:00 MCH 33 pg (28-32) H 07/12/22 04:00 MCHC 33 % (30-34) 07/12/22 04:00 RDW 14.1 % (13.2-15.2) 07/12/22 04:00 Plt Count 68 K/mm3 (140-440) L 07/12/22 04:00 Lymph % (Auto) 15.2 % (13.4-35.0) 07/08/22 14:54 Haakon % (Auto) 2.7 % (0.0-7.3) 07/08/22 14:54 Eos % (Auto) 0.0 % (0.0-4.3) 07/08/22 14:54 Baso % (Auto) 0.1 % (0.0-1.8) 07/08/22 14:54 Lymph # (Auto) 1.7 K/mm3 (1.2-5.4) 07/08/22 14:54 Haakon # (Auto) 0.3 K/mm3 (0.0-0.8) 07/08/22 14:54 Eos # (Auto) 0.0 K/mm3 (0.0-0.4) 07/08/22 14:54 Baso # (Auto) 0.0 K/mm3 (0.0-0.1) 07/08/22 14:54 Seg Neutrophils % 82.0 % (40.0-70.0) H 07/08/22 14:54 Seg Neutrophils # 9.1 K/mm3 (1.8-7.7) H 07/08/22 14:54 PT 15.0 Sec. (12.2-14.9) H 07/07/22 03:38 INR 1.06 (0.87-1.13) 07/07/22 03:38 APTT 23.0 Sec. (24.2-36.6) L 07/07/22 03:38 D-Dimer 925.80 ng/mlDDU (0-234) H 07/12/22 04:00 ABG pH 7.453 pH Units (7.350-7.450) H 07/12/22 05:00 ABG pCO2 40.7 mm Hg 07/12/22 05:00 ABG pO2 107.9 mm Hg (80.0-90.0) H 07/12/22 05:00 ABG HCO3 27.9 mmol/L (20.0-26.0) H 07/12/22 05:00 ABG O2 Saturation 98.0 % (95.0-99.0) 07/12/22 05:00 ABG O2 Content 15.0 (0.0-44) 07/12/22 05:00 ABG Base Excess 3.7 mmol/L (-2.0-3.0) H 07/12/22 05:00 ABG Hemoglobin 10.9 gm/dl (12.0-16.0) L 07/12/22 05:00 ABG Carboxyhemoglobin 0.8 % (0.0-5.0) 07/12/22 05:00 ABG Methemoglobin 0.8 % (0.0-1.5) 07/12/22 05:00 Oxyhemoglobin 96.4 % (95.0-99.0) 07/12/22 05:00 FiO2 30 % 07/12/22 05:00 Sodium 143 mmol/L (137-145) 07/12/22 00:10 Potassium 3.9 mmol/L (3.6-5.0) 07/12/22 00:10 Chloride 106.5 mmol/L (98-107) 07/12/22 00:10 Carbon Dioxide 27 mmol/L (22-30) 07/12/22 00:10 Anion Gap 13 mmol/L 07/12/22 00:10 BUN 13 mg/dL (7-17) 07/12/22 00:10 Creatinine 0.4 mg/dL (0.6-1.2) L 07/12/22 00:10 Estimated GFR > 60 ml/min 07/12/22 00:10 BUN/Creatinine Ratio 33 % 07/12/22 00:10 Glucose 163 mg/dL (65-100) H 07/12/22 00:10 POC Glucose 174 mg/dL (70-105) H 07/12/22 05:03 Lactic Acid 2.10 mmol/L (0.7-2.0) H* 07/10/22 08:24 Uric Acid 13.5 mg/dL (3.5-7.6) H 07/07/22 04:17 Calcium 7.9 mg/dL (8.4-10.2) L 07/12/22 00:10 Phosphorus 2.60 mg/dL (2.5-4.5) 07/12/22 04:00 Magnesium 1.90 mg/dL (1.7-2.3) 07/12/22 04:00 Ferritin 519.5 ng/mL (10.0-200.0) H 07/12/22 04:00 Total Bilirubin 0.30 mg/dL (0.1-1.2) 07/10/22 04:21 AST 89 units/L (5-40) H 07/10/22 04:21 ALT 53 units/L (7-56) 07/10/22 04:21 Alkaline Phosphatase 83 units/L (35-129) 07/10/22 04:21 Ammonia 32.0 umol/L (25-60) 07/07/22 04:17 Lactate Dehydrogenase 444 units/L (91-180) H 07/12/22 04:00 Total Creatine Kinase 1745 units/L (30-135) H 07/11/22 05:40 Troponin T 0.010 ng/mL (0.00-0.029) 07/07/22 04:17 C-Reactive Protein 0.30 mg/dL (0.00-1.30) 07/12/22 04:00 Total Protein 4.9 g/dL (6.3-8.2) L 07/10/22 04:21 Albumin 2.5 g/dL (3.9-5) L 07/10/22 04:21 Albumin/Globulin Ratio 1.0 % 07/10/22 04:21 Procalcitonin 0.19 ng/mL (<0.15) 07/08/22 14:54 TSH 12.790 mlU/mL (0.270-4.200) H 07/07/22 04:17 Free T4 0.78 ng/dL (0.76-1.46) 07/07/22 04:17 Total Cortisol 47.9 mcg/dL () 07/07/22 07:43 Urine Color Yellow (Yellow) 07/07/22 03:17 Urine Turbidity Slightly cloudy (Clear) 07/07/22 03:17 Specific [place] (Man) 1.015 (1.003-1.030) 07/07/22 03:17 Ur Protein (Man) 1+ mg/dL (Negative) 07/07/22 03:17 Ur Ketones (Man) Negative (Negative) 07/07/22 03:17 Ur Nitrite (Man) Negative (Negative) 07/07/22 03:17 Urine Bilirubin (Man) Negative (Negative) 07/07/22 03:17 Leukocyte Esterase (Man) Negative (Negative) 07/07/22 03:17 Urine WBC (Auto) 7.0 /HPF (0.0-6.0) H 07/07/22 03:17 Urine RBC (Auto) 1.0 /HPF (0.0-6.0) 07/07/22 03:17 U Epithel Cells (Auto) 4.0 /HPF (0-13.0) 07/07/22 03:17 Urine Bacteria (Auto) 3+ /HPF (Negative) 07/07/22 03:17 Urine RBC (Manual) 3+ (Negative) 07/07/22 03:17 Urine Mucus 3+ /HPF 07/07/22 03:17 Urine Osmolality 744 Mosm/kg 07/07/22 16:45 Urine Creatinine 92.9 mg/dL (0.1-20.0) H 07/07/22 16:45 Urine Sodium 109 mmol/L 07/07/22 16:45 Salicylates < 0.3 mg/dL (2.8-20.0) L 07/07/22 03:38 Urine Opiates Screen Presumptive negative 07/07/22 03:17 Urine Methadone Screen Presumptive negative 07/07/22 03:17 Acetaminophen 5.0 ug/mL (10.0-30.0) L 07/07/22 03:38 Ur Barbiturates Screen Presumptive negative 07/07/22 03:17 Valproic Acid 7.0 ug/mL (50-100) L 07/07/22 03:38 Ur Phencyclidine Scrn Presumptive negative 07/07/22 03:17 Ur Amphetamines Screen Presumptive negative 07/07/22 03:17 U Benzodiazepines Scrn Presumptive negative 07/07/22 03:17 Urine Cocaine Screen Presumptive negative 07/07/22 03:17 U Marijuana (THC) Screen Presumptive negative 07/07/22 03:17 Drugs of Abuse Note Disclamer 07/07/22 03:17 Plasma/Serum Alcohol < 0.01 % (0-0.07) 07/07/22 03:38 SARS-CoV-2 (PCR) Positive (Negative) A 07/07/22 15:00 Microbiology: Microbiology 07/07/22 03:38 Peripheral/Venous Blood Culture - Final NO GROWTH AFTER 5 DAYS 07/07/22 03:45 Peripheral/Venous Blood Culture - Final NO GROWTH AFTER 5 DAYS Medina/IV: Voiding Method Indwelling Catheter Active Medications - Current Medications Current Medications: Generic Name Dose Route Start Last Admin Trade Name Freq PRN Reason Stop Dose Admin Acetaminophen 650 mg 07/07/22 12:09 Acetaminophen 650 Mg Rect Supp MO Q6H PRN Pain MILD(1-3)/Fever >100.5/LEE Atorvastatin Calcium 80 mg 07/10/22 22:00 07/11/22 22:30 Atorvastatin 40 Mg Tab FEEDTUBE 80 mg QHS ERROL Administration Cholecalciferol 1,000 unit 07/10/22 10:00 07/12/22 09:48 Cholecalciferol (Vit D3) 1000 Unit (25 Mcg) Tab FEEDTUBE 1,000 unit QDAY ERROL Administration Dexamethasone 6 mg 07/08/22 10:00 07/12/22 09:46 Dexamethasone 4 Mg/Ml Vial IV 07/17/22 10:01 6 mg Q24HR ERROL Administration Dextrose 50 ml 07/09/22 11:42 Dextrose 50% In Water (25gm) 50 Ml Syringe IV Q30MIN PRN Hypoglycemia Protocol Famotidine 20 mg 07/09/22 22:00 07/12/22 09:47 Famotidine 20 Mg Tab FEEDTUBE 20 mg BID ERROL Administration Heparin Sodium (Porcine) 5,000 unit 07/08/22 06:00 07/12/22 06:37 Heparin 5,000 Unit/1 Ml Vial SUB-Q 5,000 unit Q12H ERROL Administration Hydrophilic Ointment 1 applic 07/07/22 02:48 Lip Therapy Vaseline TP Q2HR PRN Dry Lips Insulin Human Lispro 0 unit 07/09/22 12:00 07/12/22 13:11 Insulin Lispro 100 Unit/Ml SUB-Q 1 unit Q6HR ERROL Administration Protocol Levothyroxine Sodium 75 mcg 07/11/22 06:00 07/12/22 06:37 Levothyroxine 75 Mcg Tab FEEDTUBE 75 mcg QAM@0600 ERROL Administration Multi-Ingred Cream/Lotion/Oil/Oint 1 applic 07/07/22 02:48 Mineral Oil/Petrolatum, White Ophth Oint 3.5 Gm OU Q4HR PRN Dry Eye(s) Senna/Docusate Sodium 1 tab 07/07/22 10:00 07/12/22 09:47 Sennosides/Docusate Sodium 8.6/50 Mg Tab FEEDTUBE 1 tab BID ERROL Administration Sodium Chloride 10 ml 07/07/22 13:00 07/12/22 09:48 Sodium Chloride 0.9% 10 Ml Flush Syringe IV 10 ml BID ERROL Administration Sodium Chloride 10 ml 07/07/22 12:09 Sodium Chloride 0.9% 10 Ml Flush Syringe IV PRN PRN LINE FLUSH Valproic Acid 250 mg 07/10/22 22:00 07/12/22 09:47 Valproic Acid 250 Mg/5 Ml Oral Liqd FEEDTUBE 250 mg Q12H ERROL Administration Nutrition/Malnutrition Assess - Dietary Evaluation Nutrition/Malnutrition Findings: Nutrition Notes Start: 07/07/22 13:24 Freq: Status: Active Protocol: Document 07/10/22 11:40 DAREN (Rec: 07/10/22 12:34 DAREN [id number]) Nutrition Notes Initial or Follow up Reassessment Current Diagnosis Respiratory Failure,Stroke, Hyperlipidemia Other Pertinent Diagnosis COVID-19/Pneumonia, Metabolic Encephalopathy, Hypernatremia, Thrombocytopen Current Diet TF-Vital AF 1.2 Jameson @ 55 ml/hr (from D 07/10). Labs/Tests 07/10: Na 150, CL 115.0, Glu 178. Pertinent Medications 07/10: Vit D3, D5w @ 100ml/hr, Humalog 1U, Levothyroxine, others nutritionally unremarkable. Height 5 ft 6 in Weight 95.254 kg [place] Body Weight (kg) 59.09 BMI 33.9 Intake Prior to Admission Poor Weight change and time frame Pt states having, unintentionally, loss between 2 and 13 lb recently. No body weight change reported in 4 days. Weight Status Obese Subjective/Other Information RD consult for routine F/U on TF tolerance/continuation assessment. TF continues as prescribed, and well tolerated, according to ADL notes. I will adjust TF prescription to improve Pt's energy/protein provision during LOS. Pt continues on Mechanical Ventilatioin, O2 saturation @ 100%, according to Physical Assessment History notes. Pt presents caries and has missing teeth, according to Physical Assessment History notes. Pt presents bilateral-UE Non- Pitting Edema 2+, according to Physical Assessment History notes. Pt remains incontinent, according to Physical Assessment History notes. Pt presents dysphagia, hemiplegia, and aphasia, according to Physical Assessment History notes. Pt is resident of a SNF according to Progress notes. Percent of energy/protein needs met: Prescribed TF-Vital AF 1.2 Jameson @ 55 ml/hr provides for energy/protein needs (1,595 Kcal/100 g) during LOS, 99% Kcal, 100% AA. Burn Absent Trauma Absent GI Symptoms Other Difficulty In Swallowing,Chewing Food Allergy No Skin Integrity/Comment Assessment WNL. 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 As Evidenced by Signs and Symptoms Reduced PO intake(<75% Estimated Energy Requirement > 7 days), Recent unintentional loss of body weight (5% in 1 month), Pt presents bilateral- UE Non-Pitting Edema 2+, according to Physical Assessment History notes. #1 Nutrition Diagnosis Inadequate oral intake Diagnosis Progress(for reassessment Continues documentation) Is patient on ventilator? Yes Is Patient Ambulatory and/or Out of Bed No REE-([facility]-confined to bed) 1763.208 Kcal/Kg value to use for calculation 17 Approximate Energy Requirements Using 1619 kcal/Kg Calculation Used for Recommendations Kcal/kg Additional Notes Protein: 1.2-2 g/Kg AdjBW; 92- 154 g/day. Fluids: 1 ml/Kcal, or as per MD. Nutrition Intervention Nutrition Support: Change Formula to TF-Vital AF 1.2 Jameson @ 55 ml/hr. Flush: 100 ml water Q 4 hr, or as per MD. Kcal 1,595 Protein (gm) 100 Carbohydrates (gm) 147 Fat (gm) 72 Fluid (mL) 1,078 Fiber (gm) 7 % RDI: 99% Kcal, 100% AA. Goal #1 Provide at least 75% of energy /protein needs through Enteral Feeding during LOS. Goal #2 Adjust the dietary intervention to better serve Pt's needs and clinical conditions during LOS. Follow-Up By: 07/12/22 Additional Comments Continue monitoring TF tolerance and BM. <ANAHI ANGELES Lorena - Last Filed: 07/13/22 10:27> Assessment and Plan Assessment and plan: I saw and evaluated the patient. I agree with the findings and the plan of care as documented in the Nurse Practitioner's~note, with the following corrections and additions. Hospitalist Physical - Constitutional Vitals: Temp Pulse Resp BP Pulse Ox 97.3 F L 85 11 L 112/57 100 07/13/22 07:00 07/13/22 09:00 07/13/22 09:00 07/13/22 09:00 07/13/22 09:00 HEART Score - HEART Score Troponin: Troponin T 0.010 ng/mL (0.00-0.029) 07/07/22 04:17 Results - Labs CBC & Chem 7: 07/13/22 04:00 07/13/22 04:10 Labs: Laboratory Last Values WBC 10.4 K/mm3 (4.5-11.0) 07/13/22 04:00 RBC 3.17 M/mm3 (3.65-5.03) L 07/13/22 04:00 Hgb 10.6 gm/dl (10.1-14.3) 07/13/22 04:00 Hct 30.9 % (30.3-42.9) 07/13/22 04:00 MCV 98 fl (79-97) H 07/13/22 04:00 MCH 34 pg (28-32) H 07/13/22 04:00 MCHC 34 % (30-34) 07/13/22 04:00 RDW 14.2 % (13.2-15.2) 07/13/22 04:00 Plt Count 75 K/mm3 (140-440) L 07/13/22 04:00 Lymph % (Auto) 15.2 % (13.4-35.0) 07/08/22 14:54 Haakon % (Auto) 2.7 % (0.0-7.3) 07/08/22 14:54 Eos % (Auto) 0.0 % (0.0-4.3) 07/08/22 14:54 Baso % (Auto) 0.1 % (0.0-1.8) 07/08/22 14:54 Lymph # (Auto) 1.7 K/mm3 (1.2-5.4) 07/08/22 14:54 Haakon # (Auto) 0.3 K/mm3 (0.0-0.8) 07/08/22 14:54 Eos # (Auto) 0.0 K/mm3 (0.0-0.4) 07/08/22 14:54 Baso # (Auto) 0.0 K/mm3 (0.0-0.1) 07/08/22 14:54 Seg Neutrophils % 82.0 % (40.0-70.0) H 07/08/22 14:54 Seg Neutrophils # 9.1 K/mm3 (1.8-7.7) H 07/08/22 14:54 PT 15.0 Sec. (12.2-14.9) H 07/07/22 03:38 INR 1.06 (0.87-1.13) 07/07/22 03:38 APTT 23.0 Sec. (24.2-36.6) L 07/07/22 03:38 D-Dimer 925.80 ng/mlDDU (0-234) H 07/12/22 04:00 ABG pH 7.465 pH Units (7.350-7.450) H 07/13/22 Unknown ABG pCO2 41.3 mm Hg 07/13/22 Unknown ABG pO2 128.8 mm Hg (80.0-90.0) H 07/13/22 Unknown ABG HCO3 29.0 mmol/L (20.0-26.0) H 07/13/22 Unknown ABG O2 Saturation 98.6 % (95.0-99.0) 07/13/22 Unknown ABG O2 Content 14.3 (0.0-44) 07/13/22 Unknown ABG Base Excess 4.9 mmol/L (-2.0-3.0) H 07/13/22 Unknown ABG Hemoglobin 10.3 gm/dl (12.0-16.0) L 07/13/22 Unknown ABG Carboxyhemoglobin 0.9 % (0.0-5.0) 07/13/22 Unknown ABG Methemoglobin 0.7 % (0.0-1.5) 07/13/22 Unknown Oxyhemoglobin 97.0 % (95.0-99.0) 07/13/22 Unknown FiO2 30 % 07/13/22 Unknown Sodium 141 mmol/L (137-145) 07/13/22 04:10 Potassium 4.0 mmol/L (3.6-5.0) 07/13/22 04:10 Chloride 102.8 mmol/L (98-107) 07/13/22 04:10 Carbon Dioxide 28 mmol/L (22-30) 07/13/22 04:10 Anion Gap 14 mmol/L 07/13/22 04:10 BUN 16 mg/dL (7-17) 07/13/22 04:10 Creatinine 0.4 mg/dL (0.6-1.2) L 07/13/22 04:10 Estimated GFR > 60 ml/min 07/13/22 04:10 BUN/Creatinine Ratio 40 % 07/13/22 04:10 Glucose 136 mg/dL (65-100) H 07/13/22 04:10 POC Glucose 140 mg/dL (70-105) H 07/13/22 05:14 Lactic Acid 2.10 mmol/L (0.7-2.0) H* 07/10/22 08:24 Uric Acid 13.5 mg/dL (3.5-7.6) H 07/07/22 04:17 Calcium 8.4 mg/dL (8.4-10.2) 07/13/22 04:10 Phosphorus 3.00 mg/dL (2.5-4.5) 07/13/22 04:10 Magnesium 1.90 mg/dL (1.7-2.3) 07/13/22 04:10 Ferritin 519.5 ng/mL (10.0-200.0) H 07/12/22 04:00 Total Bilirubin 0.30 mg/dL (0.1-1.2) 07/10/22 04:21 AST 89 units/L (5-40) H 07/10/22 04:21 ALT 53 units/L (7-56) 07/10/22 04:21 Alkaline Phosphatase 83 units/L (35-129) 07/10/22 04:21 Ammonia 32.0 umol/L (25-60) 07/07/22 04:17 Lactate Dehydrogenase 444 units/L (91-180) H 07/12/22 04:00 Total Creatine Kinase 1745 units/L (30-135) H 07/11/22 05:40 Troponin T 0.010 ng/mL (0.00-0.029) 07/07/22 04:17 C-Reactive Protein 0.30 mg/dL (0.00-1.30) 07/12/22 04:00 Total Protein 4.9 g/dL (6.3-8.2) L 07/10/22 04:21 Albumin 2.5 g/dL (3.9-5) L 07/10/22 04:21 Albumin/Globulin Ratio 1.0 % 07/10/22 04:21 Procalcitonin 0.19 ng/mL (<0.15) 07/08/22 14:54 TSH 12.790 mlU/mL (0.270-4.200) H 07/07/22 04:17 Free T4 0.78 ng/dL (0.76-1.46) 07/07/22 04:17 Total Cortisol 47.9 mcg/dL () 07/07/22 07:43 Urine Color Yellow (Yellow) 07/07/22 03:17 Urine Turbidity Slightly cloudy (Clear) 07/07/22 03:17 Specific [place] (Man) 1.015 (1.003-1.030) 07/07/22 03:17 Ur Protein (Man) 1+ mg/dL (Negative) 07/07/22 03:17 Ur Ketones (Man) Negative (Negative) 07/07/22 03:17 Ur Nitrite (Man) Negative (Negative) 07/07/22 03:17 Urine Bilirubin (Man) Negative (Negative) 07/07/22 03:17 Leukocyte Esterase (Man) Negative (Negative) 07/07/22 03:17 Urine WBC (Auto) 7.0 /HPF (0.0-6.0) H 07/07/22 03:17 Urine RBC (Auto) 1.0 /HPF (0.0-6.0) 07/07/22 03:17 U Epithel Cells (Auto) 4.0 /HPF (0-13.0) 07/07/22 03:17 Urine Bacteria (Auto) 3+ /HPF (Negative) 07/07/22 03:17 Urine RBC (Manual) 3+ (Negative) 07/07/22 03:17 Urine Mucus 3+ /HPF 07/07/22 03:17 Urine Osmolality 744 Mosm/kg 07/07/22 16:45 Urine Creatinine 92.9 mg/dL (0.1-20.0) H 07/07/22 16:45 Urine Sodium 109 mmol/L 07/07/22 16:45 Salicylates < 0.3 mg/dL (2.8-20.0) L 07/07/22 03:38 Urine Opiates Screen Presumptive negative 07/07/22 03:17 Urine Methadone Screen Presumptive negative 07/07/22 03:17 Acetaminophen 5.0 ug/mL (10.0-30.0) L 07/07/22 03:38 Ur Barbiturates Screen Presumptive negative 07/07/22 03:17 Valproic Acid 7.0 ug/mL (50-100) L 07/07/22 03:38 Ur Phencyclidine Scrn Presumptive negative 07/07/22 03:17 Ur Amphetamines Screen Presumptive negative 07/07/22 03:17 U Benzodiazepines Scrn Presumptive negative 07/07/22 03:17 Urine Cocaine Screen Presumptive negative 07/07/22 03:17 U Marijuana (THC) Screen Presumptive negative 07/07/22 03:17 Drugs of Abuse Note Disclamer 07/07/22 03:17 Plasma/Serum Alcohol < 0.01 % (0-0.07) 07/07/22 03:38 SARS-CoV-2 (PCR) Positive (Negative) A 07/07/22 15:00 Microbiology: Microbiology 07/07/22 03:38 Peripheral/Venous Blood Culture - Final NO GROWTH AFTER 5 DAYS 07/07/22 03:45 Peripheral/Venous Blood Culture - Final NO GROWTH AFTER 5 DAYS [place]/IV: Voiding Method Indwelling Catheter Active Medications - Current Medications Current Medications: Generic Name Dose Route Start Last Admin Trade Name Freq PRN Reason Stop Dose Admin Acetaminophen 650 mg 07/07/22 12:09 Acetaminophen 650 Mg Rect Supp MO Q6H PRN Pain MILD(1-3)/Fever >100.5/LEE Atorvastatin Calcium 80 mg 07/10/22 22:00 07/12/22 22:04 Atorvastatin 40 Mg Tab FEEDTUBE 80 mg QHS ERROL Administration Cholecalciferol 1,000 unit 07/10/22 10:00 07/13/22 10:00 Cholecalciferol (Vit D3) 1000 Unit (25 Mcg) Tab FEEDTUBE 1,000 unit QDAY ERROL Administration Dexamethasone 6 mg 07/08/22 10:00 07/13/22 09:59 Dexamethasone 4 Mg/Ml Vial IV 07/17/22 10:01 6 mg Q24HR ERROL Administration Dextrose 50 ml 07/09/22 11:42 Dextrose 50% In Water (25gm) 50 Ml Syringe IV Q30MIN PRN Hypoglycemia Protocol Famotidine 20 mg 07/09/22 22:00 07/13/22 09:59 Famotidine 20 Mg Tab FEEDTUBE 20 mg BID ERROL Administration Heparin Sodium (Porcine) 5,000 unit 07/08/22 06:00 07/13/22 06:35 Heparin 5,000 Unit/1 Ml Vial SUB-Q 5,000 unit Q12H ERROL Administration Hydrophilic Ointment 1 applic 07/07/22 02:48 Lip Therapy Vaseline TP Q2HR PRN Dry Lips Insulin Human Lispro 0 unit 07/09/22 12:00 07/13/22 06:17 Insulin Lispro 100 Unit/Ml SUB-Q Not Given Q6HR ERROL Protocol Levothyroxine Sodium 75 mcg 07/11/22 06:00 07/13/22 06:36 Levothyroxine 75 Mcg Tab FEEDTUBE 75 mcg QAM@0600 ERROL Administration Multi-Ingred Cream/Lotion/Oil/Oint 1 applic 07/07/22 02:48 Mineral Oil/Petrolatum, White Ophth Oint 3.5 Gm OU Q4HR PRN Dry Eye(s) Senna/Docusate Sodium 1 tab 07/07/22 10:00 07/13/22 10:00 Sennosides/Docusate Sodium 8.6/50 Mg Tab FEEDTUBE 1 tab BID ERROL Administration Sodium Chloride 10 ml 07/07/22 13:00 07/13/22 10:00 Sodium Chloride 0.9% 10 Ml Flush Syringe IV 10 ml BID ERROL Administration Sodium Chloride 10 ml 07/07/22 12:09 Sodium Chloride 0.9% 10 Ml Flush Syringe IV PRN PRN LINE FLUSH Valproic Acid 250 mg 07/10/22 22:00 07/13/22 10:00 Valproic Acid 250 Mg/5 Ml Oral Liqd FEEDTUBE 250 mg Q12H ERROL Administration Nutrition/Malnutrition Assess - Dietary Evaluation Nutrition/Malnutrition Findings: Nutrition Notes Start: 07/07/22 13:24 Freq: Status: Active Protocol: Document 07/12/22 15:47 CARI (Rec: 07/12/22 15:56 CARI [id number]) Nutrition Notes Initial or Follow up Brief Note Current Diet TF - Vital AF 1.2 at 55ml/hr Labs/Tests BG 163 Na 143 K 3.9 Pertinent Medications Reviewed Height 5 ft 6 in Weight 95.254 kg [place] Body Weight (kg) 59.09 BMI 33.9 Subjective/Other Information Pt remains on vent support. Observed TF infusing at 45ml/ hr (15:10). Percent of energy/protein needs met: 74% energy 82% pro Burn Absent Trauma Absent #1 Nutrition Diagnosis Inadequate oral intake Diagnosis Progress(for reassessment Continues documentation) Is patient on ventilator? Yes Is Patient Ambulatory and/or Out of Bed No REE-(Dodge-St. Jeor-confined to bed) 1763.208 Kcal/Kg value to use for calculation 15 Approximate Energy Requirements Using 1429 kcal/Kg Calculation Used for Recommendations Kcal/kg Additional Notes Pro needs 1.3g/kg adjBW: 99g/ day Fluid needs 1ml/kcal Nutrition Intervention Nutrition Support: Decrease TF goal rate to 50ml/ hr with 75ml/hr q4h. Kcal 1,440 Protein (gm) 90 Fluid (mL) 973 Goal #1 TF tolerance Goal #2 TF to meet 70-80% energy and at least 75% pro needs Follow-Up By: 07/17/22 Additional Comments F/U: TF goal rate/tolerance, vent status, wt
--- NOTE | 2022-07-12 14:23 | Progress Note ---
Assessment and Plan 76 y/o female with acute respiratory failure secondary to altered mental status, most likely from electrolyte abnormalities seen on chemistry, found to be COVID positive. 07/12/22: Negative MRI for acute infarct. Na is normal. Continue to monitor. Daily PSV trials. Has been intubated now for 5 days. 07/11/22: for MRI today. Appreciate renal help, agree with signing off. Attempt daily PSV. Guarded prognosis. 07/10: follow up MRI. Get official EEG read but no status. Continue daily PSV trials. Guarded prognosis 07/09/22: Continue supportive measures. Continue to fix Na, if no improvement in mental state with normal sodium then will pursue MRI. Picc placed today. 07/08/22: No further sedation. 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 Consider neurology consult and may need to obtain MRI. Attempt PSV trials toda y. needs Picc line placed for group home access as patient is a difficult stick. Feed patient and monitor lytes. 1. Discontinue sedation 2. Wean FiO2 for sats >88% and PaO2 greater than 60 3. AGree with fluid resuscitation, patient needs free water 4. Will follow up with family to find out exactly what patient mental status was a facility CCT 31 minutes. Subjective Date of service: 07/12/22 Principal diagnosis: Hypernatremia Interval history: no acute events. Still not awake. MRI was negative for acute events. EEG just shows diffuse slowing. Objective Vital Signs - 12hr 07/12/22 07/12/22 07/12/22 03:00 04:00 04:51 Temperature 97.2 F L Pulse Rate 79 88 97 H Pulse Rate [ 85 From Monitor] Pulse Rate [ 85 Left Dorsalis Pedis] Pulse Rate [ 85 Right Dorsalis Pedis] Respiratory 12 16 Rate Blood Pressure 95/48 83/56 98/62 O2 Sat by Pulse 100 100 100 Oximetry 07/12/22 07/12/22 07/12/22 05:00 06:00 07:00 Temperature 97.7 F Pulse Rate 87 82 87 Pulse Rate [ From Monitor] Pulse Rate [ Left Dorsalis Pedis] Pulse Rate [ Right Dorsalis Pedis] Respiratory 10 L 12 13 Rate Blood Pressure 103/61 112/59 118/62 O2 Sat by Pulse 100 100 100 Oximetry 07/12/22 07/12/22 07/12/22 08:00 08:21 09:00 Temperature Pulse Rate 82 82 79 Pulse Rate [ 82 From Monitor] Pulse Rate [ 82 Left Dorsalis Pedis] Pulse Rate [ 82 Right Dorsalis Pedis] Respiratory 12 12 Rate Blood Pressure 105/65 105/65 95/55 O2 Sat by Pulse 100 100 100 Oximetry 07/12/22 07/12/22 07/12/22 10:00 11:00 12:00 Temperature 97.7 F Pulse Rate 87 87 79 Pulse Rate [ From Monitor] Pulse Rate [ 80 Left Dorsalis Pedis] Pulse Rate [ Right Dorsalis Pedis] Respiratory 11 L 14 12 Rate Blood Pressure 107/63 77/56 94/57 O2 Sat by Pulse 100 100 100 Oximetry 07/12/22 13:00 Temperature Pulse Rate 86 Pulse Rate [ From Monitor] Pulse Rate [ Left Dorsalis Pedis] Pulse Rate [ Right Dorsalis Pedis] Respiratory 10 L Rate Blood Pressure 94/68 O2 Sat by Pulse 100 Oximetry Constitutional: comatose ENT: other (orally intubated) Neck: supple Effort: normal Ascultation: Bilateral: clear Percussion: Bilateral: not dull Cardiovascular: regular rate and rhythm Gastrointestinal: normoactive bowel sounds, soft Extremities: no cyanosis, no edema Neurologic: unable to assess CBC and BMP: 07/12/22 04:00 07/12/22 00:10 ABG, PT/INR, D-dimer: ABG ABG pH 7.453 pH Units (7.350-7.450) H 07/12/22 05:00 ABG pCO2 40.7 mm Hg 07/12/22 05:00 ABG pO2 107.9 mm Hg (80.0-90.0) H 07/12/22 05:00 ABG O2 Saturation 98.0 % (95.0-99.0) 07/12/22 05:00 PT/INR, D-dimer PT 15.0 Sec. (12.2-14.9) H 07/07/22 03:38 INR 1.06 (0.87-1.13) 07/07/22 03:38 D-Dimer 925.80 ng/mlDDU (0-234) H 07/12/22 04:00 Abnormal lab findings: Abnormal Labs 07/07/22 07/07/22 07/07/22 03:17 03:38 03:38 WBC RBC 5.43 H Hgb 18.2 H Hct 54.9 H MCV 101 H MCH 34 H Plt Count 104 L Seg Neutrophils % Seg Neutrophils # PT 15.0 H APTT 23.0 L D-Dimer ABG pH ABG pO2 ABG HCO3 ABG O2 Saturation ABG Base Excess ABG Hemoglobin Oxyhemoglobin Sodium Potassium Chloride Carbon Dioxide BUN Creatinine Glucose POC Glucose Lactic Acid Uric Acid Calcium Magnesium Ferritin Total Bilirubin AST Lactate Dehydrogenase Total Creatine Kinase C-Reactive Protein Total Protein Albumin TSH Urine WBC (Auto) 7.0 H Urine Creatinine Salicylates Acetaminophen Valproic Acid SARS-CoV-2 (PCR) 07/07/22 07/07/22 07/07/22 03:38 03:38 03:38 WBC RBC Hgb Hct MCV MCH Plt Count Seg Neutrophils % Seg Neutrophils # PT APTT D-Dimer ABG pH ABG pO2 ABG HCO3 ABG O2 Saturation ABG Base Excess ABG Hemoglobin Oxyhemoglobin Sodium Potassium Chloride Carbon Dioxide BUN Creatinine Glucose POC Glucose Lactic Acid Uric Acid Calcium Magnesium 3.30 H Ferritin Total Bilirubin AST Lactate Dehydrogenase Total Creatine Kinase 1826 H C-Reactive Protein Total Protein Albumin TSH Urine WBC (Auto) Urine Creatinine Salicylates < 0.3 L Acetaminophen 5.0 L Valproic Acid 7.0 L SARS-CoV-2 (PCR) 07/07/22 07/07/22 07/07/22 04:17 04:17 04:17 WBC RBC Hgb Hct MCV MCH Plt Count Seg Neutrophils % Seg Neutrophils # PT APTT D-Dimer ABG pH ABG pO2 ABG HCO3 ABG O2 Saturation ABG Base Excess ABG Hemoglobin Oxyhemoglobin Sodium 168 H* Potassium 3.2 L Chloride 122.2 H Carbon Dioxide BUN 52 H Creatinine Glucose 158 H POC Glucose Lactic Acid 3.50 H* Uric Acid Calcium 10.9 H Magnesium Ferritin Total Bilirubin 1.40 H AST 47 H Lactate Dehydrogenase Total Creatine Kinase C-Reactive Protein Total Protein Albumin TSH 12.790 H Urine WBC (Auto) Urine Creatinine Salicylates Acetaminophen Valproic Acid SARS-CoV-2 (PCR) 07/07/22 07/07/22 07/07/22 04:17 07:43 09:35 WBC RBC Hgb Hct MCV MCH Plt Count Seg Neutrophils % Seg Neutrophils # PT APTT D-Dimer ABG pH ABG pO2 377.3 H ABG HCO3 ABG O2 Saturation 99.6 H ABG Base Excess -2.5 L ABG Hemoglobin Oxyhemoglobin Sodium Potassium Chloride Carbon Dioxide BUN Creatinine Glucose POC Glucose Lactic Acid 6.30 H* Uric Acid 13.5 H Calcium Magnesium Ferritin Total Bilirubin AST Lactate Dehydrogenase Total Creatine Kinase C-Reactive Protein Total Protein Albumin TSH Urine WBC (Auto) Urine Creatinine Salicylates Acetaminophen Valproic Acid SARS-CoV-2 (PCR) 07/07/22 07/07/22 07/07/22 15:00 16:00 16:00 WBC RBC Hgb Hct MCV MCH Plt Count Seg Neutrophils % Seg Neutrophils # PT APTT D-Dimer ABG pH ABG pO2 ABG HCO3 ABG O2 Saturation ABG Base Excess ABG Hemoglobin Oxyhemoglobin Sodium 166 H* Potassium Chloride 124.8 H Carbon Dioxide 20 L BUN 41 H Creatinine Glucose 157 H POC Glucose Lactic Acid 7.00 H* Uric Acid Calcium Magnesium Ferritin Total Bilirubin AST 81 H Lactate Dehydrogenase Total Creatine Kinase C-Reactive Protein Total Protein Albumin TSH Urine WBC (Auto) Urine Creatinine Salicylates Acetaminophen Valproic Acid SARS-CoV-2 (PCR) Positive A 07/07/22 07/07/22 07/07/22 16:45 23:42 23:42 WBC RBC Hgb Hct MCV MCH Plt Count Seg Neutrophils % Seg Neutrophils # PT APTT D-Dimer ABG pH ABG pO2 ABG HCO3 ABG O2 Saturation ABG Base Excess ABG Hemoglobin Oxyhemoglobin Sodium 165 H* Potassium 3.0 L Chloride 122.8 H Carbon Dioxide BUN 38 H Creatinine Glucose 232 H POC Glucose Lactic Acid 5.60 H* Uric Acid Calcium Magnesium Ferritin Total Bilirubin AST Lactate Dehydrogenase Total Creatine Kinase C-Reactive Protein Total Protein Albumin TSH Urine WBC (Auto) Urine Creatinine 92.9 H Salicylates Acetaminophen Valproic Acid SARS-CoV-2 (PCR) 07/07/22 07/07/22 07/08/22 Unknown Unknown 05:30 WBC RBC Hgb Hct MCV MCH Plt Count Seg Neutrophils % Seg Neutrophils # PT APTT D-Dimer ABG pH 7.553 H 7.473 H ABG pO2 61.7 L 121.7 H ABG HCO3 ABG O2 Saturation 94.7 L ABG Base Excess 4.3 H ABG Hemoglobin 18.0 H Oxyhemoglobin 93.1 L Sodium 163 H* Potassium 6.3 H* D Chloride 123.7 H Carbon Dioxide BUN 42 H Creatinine Glucose 169 H POC Glucose Lactic Acid Uric Acid Calcium Magnesium Ferritin Total Bilirubin AST Lactate Dehydrogenase Total Creatine Kinase C-Reactive Protein Total Protein Albumin TSH Urine WBC (Auto) Urine Creatinine Salicylates Acetaminophen Valproic Acid SARS-CoV-2 (PCR) 07/08/22 07/08/22 07/08/22 05:36 11:21 14:54 WBC 11.1 H RBC Hgb Hct MCV 101 H MCH 33 H Plt Count 69 L Seg Neutrophils % 82.0 H Seg Neutrophils # 9.1 H PT APTT D-Dimer ABG pH ABG pO2 ABG HCO3 ABG O2 Saturation ABG Base Excess ABG Hemoglobin Oxyhemoglobin Sodium Potassium Chloride Carbon Dioxide BUN Creatinine Glucose POC Glucose 174 H 148 H Lactic Acid Uric Acid Calcium Magnesium Ferritin Total Bilirubin AST Lactate Dehydrogenase Total Creatine Kinase C-Reactive Protein Total Protein Albumin TSH Urine WBC (Auto) Urine Creatinine Salicylates Acetaminophen Valproic Acid SARS-CoV-2 (PCR) 07/08/22 07/08/22 07/08/22 14:54 14:54 14:54 WBC RBC Hgb Hct MCV MCH Plt Count Seg Neutrophils % Seg Neutrophils # PT APTT D-Dimer ABG pH ABG pO2 ABG HCO3 ABG O2 Saturation ABG Base Excess ABG Hemoglobin Oxyhemoglobin Sodium 163 H* Potassium 2.9 L* Chloride 123.7 H Carbon Dioxide BUN 30 H Creatinine Glucose 161 H POC Glucose Lactic Acid 6.10 H* Uric Acid Calcium Magnesium Ferritin Total Bilirubin AST 69 H Lactate Dehydrogenase Total Creatine Kinase 2335 H C-Reactive Protein Total Protein 5.6 L D Albumin 3.1 L TSH Urine WBC (Auto) Urine Creatinine Salicylates Acetaminophen Valproic Acid SARS-CoV-2 (PCR) 07/08/22 07/08/22 07/08/22 14:54 14:54 14:54 WBC RBC Hgb Hct MCV MCH Plt Count Seg Neutrophils % Seg Neutrophils # PT APTT D-Dimer 499.72 H ABG pH ABG pO2 ABG HCO3 ABG O2 Saturation ABG Base Excess ABG Hemoglobin Oxyhemoglobin Sodium Potassium Chloride Carbon Dioxide BUN Creatinine Glucose POC Glucose Lactic Acid Uric Acid Calcium Magnesium Ferritin 722.1 H Total Bilirubin AST Lactate Dehydrogenase 455 H Total Creatine Kinase C-Reactive Protein 1.60 H Total Protein Albumin TSH Urine WBC (Auto) Urine Creatinine Salicylates Acetaminophen Valproic Acid SARS-CoV-2 (PCR) 07/08/22 07/08/22 07/09/22 19:13 19:53 00:09 WBC RBC Hgb Hct MCV MCH Plt Count Seg Neutrophils % Seg Neutrophils # PT APTT D-Dimer ABG pH ABG pO2 ABG HCO3 ABG O2 Saturation ABG Base Excess ABG Hemoglobin Oxyhemoglobin Sodium 160 H Potassium 3.5 L D Chloride 122.0 H Carbon Dioxide 20 L BUN 28 H Creatinine Glucose 151 H POC Glucose 138 H Lactic Acid 5.70 H* Uric Acid Calcium Magnesium Ferritin Total Bilirubin AST Lactate Dehydrogenase Total Creatine Kinase C-Reactive Protein Total Protein Albumin TSH Urine WBC (Auto) Urine Creatinine Salicylates Acetaminophen Valproic Acid SARS-CoV-2 (PCR) 07/09/22 07/09/22 07/09/22 00:45 03:21 03:21 WBC RBC Hgb Hct MCV MCH Plt Count Seg Neutrophils % Seg Neutrophils # PT APTT D-Dimer ABG pH ABG pO2 ABG HCO3 ABG O2 Saturation ABG Base Excess ABG Hemoglobin Oxyhemoglobin Sodium 158 H 157 H Potassium Chloride 124.2 H 125.0 H Carbon Dioxide 20 L 20 L BUN 25 H 24 H Creatinine Glucose 147 H 169 H POC Glucose Lactic Acid 4.70 H* Uric Acid Calcium Magnesium Ferritin Total Bilirubin AST 81 H Lactate Dehydrogenase Total Creatine Kinase C-Reactive Protein Total Protein 5.7 L Albumin 2.8 L TSH Urine WBC (Auto) Urine Creatinine Salicylates Acetaminophen Valproic Acid SARS-CoV-2 (PCR) 07/09/22 07/09/22 07/09/22 04:40 05:35 08:14 WBC RBC Hgb Hct MCV 102 H MCH 33 H Plt Count 74 L Seg Neutrophils % Seg Neutrophils # PT APTT D-Dimer ABG pH ABG pO2 172.1 H ABG HCO3 ABG O2 Saturation 99.1 H ABG Base Excess -2.8 L ABG Hemoglobin Oxyhemoglobin Sodium Potassium Chloride Carbon Dioxide BUN Creatinine Glucose POC Glucose 108 H Lactic Acid Uric Acid Calcium Magnesium Ferritin Total Bilirubin AST Lactate Dehydrogenase Total Creatine Kinase C-Reactive Protein Total Protein Albumin TSH Urine WBC (Auto) Urine Creatinine Salicylates Acetaminophen Valproic Acid SARS-CoV-2 (PCR) 07/09/22 07/09/22 07/09/22 11:16 11:27 16:20 WBC RBC Hgb Hct MCV MCH Plt Count Seg Neutrophils % Seg Neutrophils # PT APTT D-Dimer ABG pH ABG pO2 ABG HCO3 ABG O2 Saturation ABG Base Excess ABG Hemoglobin Oxyhemoglobin Sodium 155 H Potassium Chloride 121.3 H Carbon Dioxide BUN 21 H Creatinine Glucose 170 H POC Glucose 173 H 190 H Lactic Acid Uric Acid Calcium Magnesium Ferritin Total Bilirubin AST Lactate Dehydrogenase Total Creatine Kinase C-Reactive Protein Total Protein Albumin TSH Urine WBC (Auto) Urine Creatinine Salicylates Acetaminophen Valproic Acid SARS-CoV-2 (PCR) 07/09/22 07/10/22 07/10/22 17:16 00:04 04:21 WBC RBC Hgb Hct MCV MCH Plt Count Seg Neutrophils % Seg Neutrophils # PT APTT D-Dimer ABG pH ABG pO2 ABG HCO3 ABG O2 Saturation ABG Base Excess ABG Hemoglobin Oxyhemoglobin Sodium 149 H 150 H Potassium Chloride 115.6 H 115.0 H Carbon Dioxide BUN 18 H Creatinine 0.5 L Glucose 207 H 178 H POC Glucose 180 H Lactic Acid Uric Acid Calcium 7.9 L Magnesium Ferritin Total Bilirubin AST 89 H Lactate Dehydrogenase 431 H Total Creatine Kinase C-Reactive Protein Total Protein 4.9 L Albumin 2.5 L TSH Urine WBC (Auto) Urine Creatinine Salicylates Acetaminophen Valproic Acid SARS-CoV-2 (PCR) 07/10/22 07/10/22 07/10/22 04:21 04:21 04:21 WBC 11.8 H RBC 3.52 L Hgb Hct MCV 99 H MCH 33 H Plt Count 67 L Seg Neutrophils % Seg Neutrophils # PT APTT D-Dimer 585.71 H ABG pH ABG pO2 ABG HCO3 ABG O2 Saturation ABG Base Excess ABG Hemoglobin Oxyhemoglobin Sodium Potassium Chloride Carbon Dioxide BUN Creatinine Glucose POC Glucose Lactic Acid Uric Acid Calcium Magnesium Ferritin 631.3 H Total Bilirubin AST Lactate Dehydrogenase Total Creatine Kinase C-Reactive Protein Total Protein Albumin TSH Urine WBC (Auto) Urine Creatinine Salicylates Acetaminophen Valproic Acid SARS-CoV-2 (PCR) 07/10/22 07/10/22 07/10/22 04:21 04:55 05:26 WBC RBC Hgb Hct MCV MCH Plt Count Seg Neutrophils % Seg Neutrophils # PT APTT D-Dimer ABG pH ABG pO2 76.8 L ABG HCO3 ABG O2 Saturation ABG Base Excess ABG Hemoglobin 10.4 L Oxyhemoglobin 94.5 L Sodium Potassium Chloride Carbon Dioxide BUN Creatinine Glucose POC Glucose 147 H Lactic Acid 2.50 H* Uric Acid Calcium Magnesium Ferritin Total Bilirubin AST Lactate Dehydrogenase Total Creatine Kinase C-Reactive Protein Total Protein Albumin TSH Urine WBC (Auto) Urine Creatinine Salicylates Acetaminophen Valproic Acid SARS-CoV-2 (PCR) 07/10/22 07/10/22 07/10/22 08:24 11:31 12:53 WBC RBC Hgb Hct MCV MCH Plt Count Seg Neutrophils % Seg Neutrophils # PT APTT D-Dimer ABG pH ABG pO2 ABG HCO3 ABG O2 Saturation ABG Base Excess ABG Hemoglobin Oxyhemoglobin Sodium Potassium Chloride 110.9 H Carbon Dioxide BUN Creatinine 0.5 L Glucose 200 H POC Glucose 166 H Lactic Acid 2.10 H* Uric Acid Calcium 8.3 L Magnesium Ferritin Total Bilirubin AST Lactate Dehydrogenase Total Creatine Kinase C-Reactive Protein Total Protein Albumin TSH Urine WBC (Auto) Urine Creatinine Salicylates Acetaminophen Valproic Acid SARS-CoV-2 (PCR) 07/10/22 07/10/22 07/10/22 17:37 18:53 23:30 WBC RBC Hgb Hct MCV MCH Plt Count Seg Neutrophils % Seg Neutrophils # PT APTT D-Dimer ABG pH ABG pO2 ABG HCO3 ABG O2 Saturation ABG Base Excess ABG Hemoglobin Oxyhemoglobin Sodium Potassium Chloride 109.5 H 110.2 H Carbon Dioxide BUN Creatinine 0.5 L 0.5 L Glucose 243 H 208 H POC Glucose 237 H Lactic Acid Uric Acid Calcium 8.1 L 8.1 L Magnesium Ferritin Total Bilirubin AST Lactate Dehydrogenase Total Creatine Kinase C-Reactive Protein Total Protein Albumin TSH Urine WBC (Auto) Urine Creatinine Salicylates Acetaminophen Valproic Acid SARS-CoV-2 (PCR) 07/10/22 07/11/22 07/11/22 23:57 04:00 04:15 WBC 11.2 H RBC Hgb Hct MCV 99 H MCH Plt Count 73 L Seg Neutrophils % Seg Neutrophils # PT APTT D-Dimer ABG pH ABG pO2 107.4 H ABG HCO3 ABG O2 Saturation ABG Base Excess ABG Hemoglobin Oxyhemoglobin Sodium Potassium Chloride Carbon Dioxide BUN Creatinine Glucose POC Glucose 195 H Lactic Acid Uric Acid Calcium Magnesium Ferritin Total Bilirubin AST Lactate Dehydrogenase Total Creatine Kinase C-Reactive Protein Total Protein Albumin TSH Urine WBC (Auto) Urine Creatinine Salicylates Acetaminophen Valproic Acid SARS-CoV-2 (PCR) 07/11/22 07/11/22 07/11/22 05:40 05:40 06:06 WBC RBC Hgb Hct MCV MCH Plt Count Seg Neutrophils % Seg Neutrophils # PT APTT D-Dimer ABG pH ABG pO2 ABG HCO3 ABG O2 Saturation ABG Base Excess ABG Hemoglobin Oxyhemoglobin Sodium Potassium Chloride 109.8 H Carbon Dioxide BUN Creatinine 0.5 L Glucose 160 H POC Glucose 145 H Lactic Acid Uric Acid Calcium 8.3 L Magnesium Ferritin Total Bilirubin AST Lactate Dehydrogenase Total Creatine Kinase 1745 H C-Reactive Protein Total Protein Albumin TSH Urine WBC (Auto) Urine Creatinine Salicylates Acetaminophen Valproic Acid SARS-CoV-2 (PCR) 07/11/22 07/11/22 07/11/22 11:55 11:59 17:44 WBC RBC Hgb Hct MCV MCH Plt Count Seg Neutrophils % Seg Neutrophils # PT APTT D-Dimer ABG pH ABG pO2 ABG HCO3 ABG O2 Saturation ABG Base Excess ABG Hemoglobin Oxyhemoglobin Sodium Potassium Chloride 107.8 H Carbon Dioxide BUN Creatinine 0.5 L Glucose 150 H POC Glucose 150 H 182 H Lactic Acid Uric Acid Calcium 8.2 L Magnesium Ferritin Total Bilirubin AST Lactate Dehydrogenase Total Creatine Kinase C-Reactive Protein Total Protein Albumin TSH Urine WBC (Auto) Urine Creatinine Salicylates Acetaminophen Valproic Acid SARS-CoV-2 (PCR) 07/11/22 07/12/22 07/12/22 17:50 00:10 00:12 WBC RBC Hgb Hct MCV MCH Plt Count Seg Neutrophils % Seg Neutrophils # PT APTT D-Dimer ABG pH ABG pO2 ABG HCO3 ABG O2 Saturation ABG Base Excess ABG Hemoglobin Oxyhemoglobin Sodium Potassium Chloride 108.4 H Carbon Dioxide BUN Creatinine 0.5 L 0.4 L Glucose 191 H 163 H POC Glucose 154 H Lactic Acid Uric Acid Calcium 8.2 L 7.9 L Magnesium Ferritin Total Bilirubin AST Lactate Dehydrogenase Total Creatine Kinase C-Reactive Protein Total Protein Albumin TSH Urine WBC (Auto) Urine Creatinine Salicylates Acetaminophen Valproic Acid SARS-CoV-2 (PCR) 07/12/22 07/12/22 07/12/22 04:00 04:00 04:00 WBC RBC Hgb Hct MCV MCH Plt Count Seg Neutrophils % Seg Neutrophils # PT APTT D-Dimer 925.80 H ABG pH ABG pO2 ABG HCO3 ABG O2 Saturation ABG Base Excess ABG Hemoglobin Oxyhemoglobin Sodium Potassium Chloride Carbon Dioxide BUN Creatinine Glucose POC Glucose Lactic Acid Uric Acid Calcium Magnesium Ferritin 519.5 H Total Bilirubin AST Lactate Dehydrogenase 444 H Total Creatine Kinase C-Reactive Protein Total Protein Albumin TSH Urine WBC (Auto) Urine Creatinine Salicylates Acetaminophen Valproic Acid SARS-CoV-2 (PCR) 07/12/22 07/12/22 07/12/22 04:00 05:00 05:03 WBC 11.7 H RBC 3.33 L Hgb Hct MCV 99 H MCH 33 H Plt Count 68 L Seg Neutrophils % Seg Neutrophils # PT APTT D-Dimer ABG pH 7.453 H ABG pO2 107.9 H ABG HCO3 27.9 H ABG O2 Saturation ABG Base Excess 3.7 H ABG Hemoglobin 10.9 L Oxyhemoglobin Sodium Potassium Chloride Carbon Dioxide BUN Creatinine Glucose POC Glucose 174 H Lactic Acid Uric Acid Calcium Magnesium Ferritin Total Bilirubin AST Lactate Dehydrogenase Total Creatine Kinase C-Reactive Protein Total Protein Albumin TSH Urine WBC (Auto) Urine Creatinine Salicylates Acetaminophen Valproic Acid SARS-CoV-2 (PCR)
[2022-07-13] MEDS: INSULIN LISPRO 100 UNIT/ML SUB-Q SCH ×4 (00:26→18:02)
[2022-07-13 04:54] LABS: Hematocrit 30.9 % (30.3-42.9); Hemoglobin 10.6 gm/dl (10.1-14.3); Mean Corpuscular HGB Conc 34 % (30-34); Mean Corpuscular Volume 98 fl (79-97); Red Blood Count 3.17 M/mm3 (3.65-5.03); Red Cell Distribution Width 14.2 % (13.2-15.2)
[2022-07-13 04:56] LABS: Platelet Count 75 K/mm3 (140-440)
[2022-07-13 05:33] LABS: Blood Urea Nitrogen 16 mg/dL (7-17); Calcium 8.4 mg/dL (8.4-10.2); Hemolysis Index 3
[2022-07-13 05:35] LABS: BUN/Creatinine Ratio 40
[2022-07-13 06:35] LABS: ABG Base Excess 4.9 mmol/L (-2.0-3.0); ABG Methemoglobin 0.7 % (0.0-1.5); ABG Oxygen Saturation 98.6 % (95.0-99.0); ABG PCO2 41.3 mm Hg; ABG PH 7.465 pH Units (7.350-7.450); ABG PO2 128.8 mm Hg (80.0-90.0)
[2022-07-13] MEDS: HEPARIN 5,000 UNIT/1 ML VIAL SUB-Q SCH ×2 (06:35→18:03)
[2022-07-13] MEDS: LEVOTHYROXINE 75 MCG TAB FEEDTUBE SCH (06:36)
--- NOTE | 2022-07-13 09:40 | XRay Report ---
CHEST 1 VIEW 07/13/2022 8:34 AM INDICATION / CLINICAL INFORMATION: Follow up respiratory failure. COMPARISON: None 122 FINDINGS: SUPPORT DEVICES: Stable, satisfactory device positioning. HEART / MEDIASTINUM: Stable. LUNGS / PLEURA: No significant pulmonary or pleural abnormality. No pneumothorax. ADDITIONAL FINDINGS: No significant additional findings. IMPRESSION: 1. No significant change. Signer Name: Orestes Jung MD Signed: 07/13/2022 9:35 AM Workstation Name: [email or web address]
[2022-07-13] MEDS: FAMOTIDINE 20 MG TAB FEEDTUBE SCH ×2 (09:59→21:40)
[2022-07-13] MEDS: dexAMETHasone 4 MG/ML VIAL IV SCH (09:59)
[2022-07-13] MEDS: VALPROIC ACID 250 MG/5 ML ORAL LIQD FEEDTUBE SCH ×2 (10:00→21:40)
[2022-07-13] MEDS: SENNOSIDES/DOCUSATE SODIUM 8.6/50 MG TAB FEEDTUBE SCH ×2 (10:00→21:40)
[2022-07-13] MEDS: CHOLECALCIFEROL (VIT D3) 1000 UNIT (25 mcg) TAB FEEDTUBE SCH (10:00)
--- NOTE | 2022-07-13 13:02 | Progress Note ---
<GEORGE DAVIS - Last Filed: 07/13/22 19:08> Assessment and Plan Assessment and plan: This is a 76-year-old female with CVA, pulmonary embolism, hypothyroidism and JUJU admitted with electrolyte imbalances, hypoxic respiratory failure and COVID- 19 pneumonia Hospital Course to Date: 07/08: Patient noted to be COVID-positive, started on remdesivir, Decadron, ceftriaxone azithromycin and infectious disease was consulted yesterday. This morning patient is on any sedation, PICC line to be placed. RT to attempt PSV. Started on free water flushes and tube feedings. Continues on D5 half-normal saline. 07/09: Patient remains encephalopathic, not on any sedation. Hypernatremia is improving, on FWF Q4hrs and D5w gtt per Nephro. If hypernatremia continue to improve and patient's mentation is unchanged, will get a repeat CT to r/o intracranial abnormalities. Patient remains afebrile, leukocytosis improved, and VSS. Continue current IV abx per ID. Patient failed PSV trial again today, trevon nue PSV trial as tolerated 07/10: Remains stable on the vent, tolerating PSV trial this am. sodium continue to improve but no change in mental status. D/w CCM will get MRI brain to r/o any intracranial abnormalities, EEG also ordered to r/o seizures. Continue FWF and D5w gtt per Nephro. Continue IV steroids and current IV abx per ID. 07/11: Hypernatremia resolved, mentation is unchanged, remains on low vent setting. EEG noted, and MRI brain pending. Will consult Neurology for further recommendations. Continue daily PSV trial as tolerated. 07/12: Appears more awake this morning but still not following any commands. MRI brain with no acute findings and sodium normalized. Awaiting Neuro consult. Continue daily PSV trial as tolerated. Patient's daughter was updated via phone, all questions and concerns were addressed at this time. Medical records requested from [facility] and [facility]. 07/13: DELMI overnight. Mentation is unchanged, remains stable on the vent. Neurology consult pending. Continue vent adjustment per CCM and daily PSV trial as tolerated. Neuro: Acute metabolic encephalopathy, h/o CVA with hemiplegia, dysphagia, aphasia, dementia -Reorientation as needed -Maintain sleep-wake cycle -Resume home Lipitor -As needed analgesia -CT head shows no acute intracranial hemorrhage, multiple chronic appearing infarcts including left MCA distribution, left cerebral hemisphere and within the right basal ganglia -Depakene -EEG noted -MRI noted -Neurology consult pending Cardiac: h/o HLD -Resume home Lipitor -Blood pressure monitoring per protocol Respiratory: Acute hypoxic respiratory failure, h/o JUJU, pulmonary embolism -[facility] consulted, appreciate recommendations -Intubated on 07/07 with a 7.50 ETT at 24 the lips -A.m. vent settings:PRVC-30%,6,12,400 -See RT notes for titration -A.m. ABG and CXR noted -VAP bundle -SPO2 monitoring GI: NAD -PPI -NTR consulted for tube feedings -BR: Senokot-S : Hypernatremia(resolved), hypokalemia, rhabdomyolysis -Nephrology consulted, appreciate recommendations -Monitor intake and output -Free water flush -BMP every 6 per nephrology -Renally dose medications -Avoid nephrotoxic medications -IVF with KCL, D5 -Replete potassium -Trend BMP ID: COVID Pneumonia, lactic acidosis -Infectious disease consulted, appreciate recommendation -Antibiotic therapy per ID -Remdesivir for 5 days -Dexamethasone for 10 days -Contact/droplet precautions -f/u blood culture -Trend COVID-19 inflammatory markers -Monitor WBC and temperature curve -Prophylactic anticoagulation based on D-dimer per hospital protocol Heme: Thrombocytopenia -Patient presented with low plt -Plt continue to trend down, but less than 50% of admit count -No s/s of any active bleeding, H&H stable -Continue to trend CBC -On Heparin SubQ -Transfuse for plt less than 20 and hgb less than 7 Endo: h/o hypothyroidism -Avoid hypoglycemia -SSI -Accu-Cheks q. 6 -Long-acting insulin, titrate as needed -Resume home Synthroid GI/DVT Prophylaxis -PPI- pepcid -Heparin SubQ -SCDs to bilateral lower extremities while in bed The high probability of a clinically significant, sudden or life threatening deterioration of the [multi] system(s) required my full and direct attention, intervention and personal management. The aggregate critical care time was [60] minutes. This time is in addition to time spent performing reported procedures but includes the following: [x] Data Review and interpretation [x] Patient assessment and monitoring of vital signs [x] Documentation [x] Medication orders and management Disposition Plan: ICU Total Time Spent with Patient (Minutes): 60 History Interval history: Patient seen and examined at the bedside. Remains on the vent. Mentation is unchanged. VSS. AWAD overnight Hospitalist Physical - Physical exam Narrative exam: General appearance: Present: other (Intubated, unresponsive, not on any sedations) - EENT Eyes: Present: PERRL - Respiratory Respiratory effort: normal Respiratory: bilateral: rhonchi - Cardiovascular Rhythm: regular Heart Sounds: Present: S1 & S2 - Extremities Extremities: no ischemia, pulses intact, pulses symmetrical Extremity abnormal: edema - Peripheral Assessment Generalized Edema Type: Non-pitting Edema Degree: 2+ Capillary Refill: < 3 seconds Skin Temperature: Warm Peripheral Pulses: within normal limits - Abdominal General gastrointestinal: soft, non-distended, normal bowel sounds - Integumentary Integumentary: Present: warm, dry - Psychiatric Psychiatric: other (Intubated, unresponsive, not on any sedations) - Neurologic Neurologic: other (Intubated, unresponsive, not on any sedations. Open eyes spontaneously, does not track, not following commands, with nonpurposeful movements) - Allied Health Allied health notes reviewed: nursing, case management - Constitutional Vitals: Temp Pulse Resp BP Pulse Ox 98.2 F 91 H 10 L 107/69 100 07/13/22 11:00 07/13/22 12:00 07/13/22 12:00 07/13/22 12:00 07/13/22 12:00 HEART Score - HEART Score Troponin: Troponin T 0.010 ng/mL (0.00-0.029) 07/07/22 04:17 Results - Labs CBC & Chem 7: 07/13/22 04:00 07/13/22 04:10 Labs: Laboratory Last Values WBC 10.4 K/mm3 (4.5-11.0) 07/13/22 04:00 RBC 3.17 M/mm3 (3.65-5.03) L 07/13/22 04:00 Hgb 10.6 gm/dl (10.1-14.3) 07/13/22 04:00 Hct 30.9 % (30.3-42.9) 07/13/22 04:00 MCV 98 fl (79-97) H 07/13/22 04:00 MCH 34 pg (28-32) H 07/13/22 04:00 MCHC 34 % (30-34) 07/13/22 04:00 RDW 14.2 % (13.2-15.2) 07/13/22 04:00 Plt Count 75 K/mm3 (140-440) L 07/13/22 04:00 Lymph % (Auto) 15.2 % (13.4-35.0) 07/08/22 14:54 [place] % (Auto) 2.7 % (0.0-7.3) 07/08/22 14:54 Eos % (Auto) 0.0 % (0.0-4.3) 07/08/22 14:54 Baso % (Auto) 0.1 % (0.0-1.8) 07/08/22 14:54 Lymph # (Auto) 1.7 K/mm3 (1.2-5.4) 07/08/22 14:54 [place] # (Auto) 0.3 K/mm3 (0.0-0.8) 07/08/22 14:54 Eos # (Auto) 0.0 K/mm3 (0.0-0.4) 07/08/22 14:54 Baso # (Auto) 0.0 K/mm3 (0.0-0.1) 07/08/22 14:54 Seg Neutrophils % 82.0 % (40.0-70.0) H 07/08/22 14:54 Seg Neutrophils # 9.1 K/mm3 (1.8-7.7) H 07/08/22 14:54 PT 15.0 Sec. (12.2-14.9) H 07/07/22 03:38 INR 1.06 (0.87-1.13) 07/07/22 03:38 APTT 23.0 Sec. (24.2-36.6) L 07/07/22 03:38 D-Dimer 925.80 ng/mlDDU (0-234) H 07/12/22 04:00 ABG pH 7.465 pH Units (7.350-7.450) H 07/13/22 Unknown ABG pCO2 41.3 mm Hg 07/13/22 Unknown ABG pO2 128.8 mm Hg (80.0-90.0) H 07/13/22 Unknown ABG HCO3 29.0 mmol/L (20.0-26.0) H 07/13/22 Unknown ABG O2 Saturation 98.6 % (95.0-99.0) 07/13/22 Unknown ABG O2 Content 14.3 (0.0-44) 07/13/22 Unknown ABG Base Excess 4.9 mmol/L (-2.0-3.0) H 07/13/22 Unknown ABG Hemoglobin 10.3 gm/dl (12.0-16.0) L 07/13/22 Unknown ABG Carboxyhemoglobin 0.9 % (0.0-5.0) 07/13/22 Unknown ABG Methemoglobin 0.7 % (0.0-1.5) 07/13/22 Unknown Oxyhemoglobin 97.0 % (95.0-99.0) 07/13/22 Unknown FiO2 30 % 07/13/22 Unknown Sodium 141 mmol/L (137-145) 07/13/22 04:10 Potassium 4.0 mmol/L (3.6-5.0) 07/13/22 04:10 Chloride 102.8 mmol/L (98-107) 07/13/22 04:10 Carbon Dioxide 28 mmol/L (22-30) 07/13/22 04:10 Anion Gap 14 mmol/L 07/13/22 04:10 BUN 16 mg/dL (7-17) 07/13/22 04:10 Creatinine 0.4 mg/dL (0.6-1.2) L 07/13/22 04:10 Estimated GFR > 60 ml/min 07/13/22 04:10 BUN/Creatinine Ratio 40 % 07/13/22 04:10 Glucose 136 mg/dL (65-100) H 07/13/22 04:10 POC Glucose 140 mg/dL (70-105) H 07/13/22 05:14 Lactic Acid 2.10 mmol/L (0.7-2.0) H* 07/10/22 08:24 Uric Acid 13.5 mg/dL (3.5-7.6) H 07/07/22 04:17 Calcium 8.4 mg/dL (8.4-10.2) 07/13/22 04:10 Phosphorus 3.00 mg/dL (2.5-4.5) 07/13/22 04:10 Magnesium 1.90 mg/dL (1.7-2.3) 07/13/22 04:10 Ferritin 519.5 ng/mL (10.0-200.0) H 07/12/22 04:00 Total Bilirubin 0.30 mg/dL (0.1-1.2) 07/10/22 04:21 AST 89 units/L (5-40) H 07/10/22 04:21 ALT 53 units/L (7-56) 07/10/22 04:21 Alkaline Phosphatase 83 units/L (35-129) 07/10/22 04:21 Ammonia 32.0 umol/L (25-60) 07/07/22 04:17 Lactate Dehydrogenase 444 units/L (91-180) H 07/12/22 04:00 Total Creatine Kinase 1745 units/L (30-135) H 07/11/22 05:40 Troponin T 0.010 ng/mL (0.00-0.029) 07/07/22 04:17 C-Reactive Protein 0.30 mg/dL (0.00-1.30) 07/12/22 04:00 Total Protein 4.9 g/dL (6.3-8.2) L 07/10/22 04:21 Albumin 2.5 g/dL (3.9-5) L 07/10/22 04:21 Albumin/Globulin Ratio 1.0 % 07/10/22 04:21 Procalcitonin 0.19 ng/mL (<0.15) 07/08/22 14:54 TSH 12.790 mlU/mL (0.270-4.200) H 07/07/22 04:17 Free T4 0.78 ng/dL (0.76-1.46) 07/07/22 04:17 Total Cortisol 47.9 mcg/dL () 07/07/22 07:43 Urine Color Yellow (Yellow) 07/07/22 03:17 Urine Turbidity Slightly cloudy (Clear) 07/07/22 03:17 Specific [place] (Man) 1.015 (1.003-1.030) 07/07/22 03:17 Ur Protein (Man) 1+ mg/dL (Negative) 07/07/22 03:17 Ur Ketones (Man) Negative (Negative) 07/07/22 03:17 Ur Nitrite (Man) Negative (Negative) 07/07/22 03:17 Urine Bilirubin (Man) Negative (Negative) 07/07/22 03:17 Leukocyte Esterase (Man) Negative (Negative) 07/07/22 03:17 Urine WBC (Auto) 7.0 /HPF (0.0-6.0) H 07/07/22 03:17 Urine RBC (Auto) 1.0 /HPF (0.0-6.0) 07/07/22 03:17 U Epithel Cells (Auto) 4.0 /HPF (0-13.0) 07/07/22 03:17 Urine Bacteria (Auto) 3+ /HPF (Negative) 07/07/22 03:17 Urine RBC (Manual) 3+ (Negative) 07/07/22 03:17 Urine Mucus 3+ /HPF 07/07/22 03:17 Urine Osmolality 744 Mosm/kg 07/07/22 16:45 Urine Creatinine 92.9 mg/dL (0.1-20.0) H 07/07/22 16:45 Urine Sodium 109 mmol/L 07/07/22 16:45 Salicylates < 0.3 mg/dL (2.8-20.0) L 07/07/22 03:38 Urine Opiates Screen Presumptive negative 07/07/22 03:17 Urine Methadone Screen Presumptive negative 07/07/22 03:17 Acetaminophen 5.0 ug/mL (10.0-30.0) L 07/07/22 03:38 Ur Barbiturates Screen Presumptive negative 07/07/22 03:17 Valproic Acid 7.0 ug/mL (50-100) L 07/07/22 03:38 Ur Phencyclidine Scrn Presumptive negative 07/07/22 03:17 Ur Amphetamines Screen Presumptive negative 07/07/22 03:17 U Benzodiazepines Scrn Presumptive negative 07/07/22 03:17 Urine Cocaine Screen Presumptive negative 07/07/22 03:17 U Marijuana (THC) Screen Presumptive negative 07/07/22 03:17 Drugs of Abuse Note Disclamer 07/07/22 03:17 Plasma/Serum Alcohol < 0.01 % (0-0.07) 07/07/22 03:38 SARS-CoV-2 (PCR) Positive (Negative) A 07/07/22 15:00 Medina/IV: Voiding Method Indwelling Catheter Active Medications - Current Medications Current Medications: Generic Name Dose Route Start Last Admin Trade Name Freq PRN Reason Stop Dose Admin Acetaminophen 650 mg 07/13/22 12:00 Acetaminophen 325 Mg/10.15 Ml Oral Liqd Unit Dose FEEDTUBE Q6H PRN Pain MILD(1-3)/Fever >100.5/LEE Atorvastatin Calcium 80 mg 07/10/22 22:00 07/12/22 22:04 Atorvastatin 40 Mg Tab FEEDTUBE 80 mg QHS ERROL Administration Cholecalciferol 1,000 unit 07/10/22 10:00 07/13/22 10:00 Cholecalciferol (Vit D3) 1000 Unit (25 Mcg) Tab FEEDTUBE 1,000 unit QDAY ERROL Administration Dexamethasone 6 mg 07/08/22 10:00 07/13/22 09:59 Dexamethasone 4 Mg/Ml Vial IV 07/17/22 10:01 6 mg Q24HR ERROL Administration Dextrose 50 ml 07/09/22 11:42 Dextrose 50% In Water (25gm) 50 Ml Syringe IV Q30MIN PRN Hypoglycemia Protocol Famotidine 20 mg 07/09/22 22:00 07/13/22 09:59 Famotidine 20 Mg Tab FEEDTUBE 20 mg BID ERROL Administration Heparin Sodium (Porcine) 5,000 unit 07/08/22 06:00 07/13/22 06:35 Heparin 5,000 Unit/1 Ml Vial SUB-Q 5,000 unit Q12H ERROL Administration Hydrophilic Ointment 1 applic 07/07/22 02:48 Lip Therapy Vaseline TP Q2HR PRN Dry Lips Insulin Human Lispro 0 unit 07/09/22 12:00 07/13/22 12:13 Insulin Lispro 100 Unit/Ml SUB-Q 1 unit Q6HR ERROL Administration Protocol Levothyroxine Sodium 75 mcg 07/11/22 06:00 07/13/22 06:36 Levothyroxine 75 Mcg Tab FEEDTUBE 75 mcg QAM@0600 ERROL Administration Multi-Ingred Cream/Lotion/Oil/Oint 1 applic 07/07/22 02:48 Mineral Oil/Petrolatum, White Ophth Oint 3.5 Gm OU Q4HR PRN Dry Eye(s) Senna/Docusate Sodium 1 tab 07/07/22 10:00 07/13/22 10:00 Sennosides/Docusate Sodium 8.6/50 Mg Tab FEEDTUBE 1 tab BID ERROL Administration Sodium Chloride 10 ml 07/07/22 13:00 07/13/22 10:00 Sodium Chloride 0.9% 10 Ml Flush Syringe IV 10 ml BID ERROL Administration Sodium Chloride 10 ml 07/07/22 12:09 Sodium Chloride 0.9% 10 Ml Flush Syringe IV PRN PRN LINE FLUSH Valproic Acid 250 mg 07/10/22 22:00 07/13/22 10:00 Valproic Acid 250 Mg/5 Ml Oral Liqd FEEDTUBE 250 mg Q12H ERROL Administration Nutrition/Malnutrition Assess - Dietary Evaluation Nutrition/Malnutrition Findings: Nutrition Notes Start: 07/07/22 13:24 Freq: Status: Active Protocol: Document 07/12/22 15:47 CARI (Rec: 07/12/22 15:56 [email or web address]) Nutrition Notes Initial or Follow up Brief Note Current Diet TF - Vital AF 1.2 at 55ml/hr Labs/Tests BG 163 Na 143 K 3.9 Pertinent Medications Reviewed Height 5 ft 6 in Weight 95.254 kg [place] Body Weight (kg) 59.09 BMI 33.9 Subjective/Other Information Pt remains on vent support. Observed TF infusing at 45ml/ hr (15:10). Percent of energy/protein needs met: 74% energy 82% pro Burn Absent Trauma Absent #1 Nutrition Diagnosis Inadequate oral intake Diagnosis Progress(for reassessment Continues documentation) Is patient on ventilator? Yes Is Patient Ambulatory and/or Out of Bed No REE-([facility]-confined to bed) 1763.208 Kcal/Kg value to use for calculation 15 Approximate Energy Requirements Using 1429 kcal/Kg Calculation Used for Recommendations Kcal/kg Additional Notes Pro needs 1.3g/kg adjBW: 99g/ day Fluid needs 1ml/kcal Nutrition Intervention Nutrition Support: Decrease TF goal rate to 50ml/ hr with 75ml/hr q4h. Kcal 1,440 Protein (gm) 90 Fluid (mL) 973 Goal #1 TF tolerance Goal #2 TF to meet 70-80% energy and at least 75% pro needs Follow-Up By: 07/17/22 Additional Comments F/U: TF goal rate/tolerance, vent status, wt <OKEH,ANAHI E - Last Filed: 07/14/22 07:34> Assessment and Plan Assessment and plan: I saw and evaluated the patient. I agree with the findings and the plan of care as documented in the Nurse Practitioner's~note, with the following corrections and additions. Hospitalist Physical - Constitutional Vitals: Temp Pulse Resp BP Pulse Ox 97.9 F 95 H 11 L 105/60 99 07/14/22 07:14 07/14/22 06:00 07/14/22 06:00 07/14/22 06:00 07/14/22 06:00 HEART Score - HEART Score Troponin: Troponin T 0.010 ng/mL (0.00-0.029) 07/07/22 04:17 Results - Labs CBC & Chem 7: 07/13/22 04:00 07/13/22 04:10 Labs: Laboratory Last Values WBC 10.4 K/mm3 (4.5-11.0) 07/13/22 04:00 RBC 3.17 M/mm3 (3.65-5.03) L 07/13/22 04:00 Hgb 10.6 gm/dl (10.1-14.3) 07/13/22 04:00 Hct 30.9 % (30.3-42.9) 07/13/22 04:00 MCV 98 fl (79-97) H 07/13/22 04:00 MCH 34 pg (28-32) H 07/13/22 04:00 MCHC 34 % (30-34) 07/13/22 04:00 RDW 14.2 % (13.2-15.2) 07/13/22 04:00 Plt Count 75 K/mm3 (140-440) L 07/13/22 04:00 Lymph % (Auto) 15.2 % (13.4-35.0) 07/08/22 14:54 [place] % (Auto) 2.7 % (0.0-7.3) 07/08/22 14:54 Eos % (Auto) 0.0 % (0.0-4.3) 07/08/22 14:54 Baso % (Auto) 0.1 % (0.0-1.8) 07/08/22 14:54 Lymph # (Auto) 1.7 K/mm3 (1.2-5.4) 07/08/22 14:54 [place] # (Auto) 0.3 K/mm3 (0.0-0.8) 07/08/22 14:54 Eos # (Auto) 0.0 K/mm3 (0.0-0.4) 07/08/22 14:54 Baso # (Auto) 0.0 K/mm3 (0.0-0.1) 07/08/22 14:54 Seg Neutrophils % 82.0 % (40.0-70.0) H 07/08/22 14:54 Seg Neutrophils # 9.1 K/mm3 (1.8-7.7) H 07/08/22 14:54 PT 15.0 Sec. (12.2-14.9) H 07/07/22 03:38 INR 1.06 (0.87-1.13) 07/07/22 03:38 APTT 23.0 Sec. (24.2-36.6) L 07/07/22 03:38 D-Dimer 925.80 ng/mlDDU (0-234) H 07/12/22 04:00 ABG pH 7.465 pH Units (7.350-7.450) H 07/13/22 Unknown ABG pCO2 41.3 mm Hg 07/13/22 Unknown ABG pO2 128.8 mm Hg (80.0-90.0) H 07/13/22 Unknown ABG HCO3 29.0 mmol/L (20.0-26.0) H 07/13/22 Unknown ABG O2 Saturation 98.6 % (95.0-99.0) 07/13/22 Unknown ABG O2 Content 14.3 (0.0-44) 07/13/22 Unknown ABG Base Excess 4.9 mmol/L (-2.0-3.0) H 07/13/22 Unknown ABG Hemoglobin 10.3 gm/dl (12.0-16.0) L 07/13/22 Unknown ABG Carboxyhemoglobin 0.9 % (0.0-5.0) 07/13/22 Unknown ABG Methemoglobin 0.7 % (0.0-1.5) 07/13/22 Unknown Oxyhemoglobin 97.0 % (95.0-99.0) 07/13/22 Unknown FiO2 30 % 07/13/22 Unknown Sodium 141 mmol/L (137-145) 07/13/22 04:10 Potassium 4.0 mmol/L (3.6-5.0) 07/13/22 04:10 Chloride 102.8 mmol/L (98-107) 07/13/22 04:10 Carbon Dioxide 28 mmol/L (22-30) 07/13/22 04:10 Anion Gap 14 mmol/L 07/13/22 04:10 BUN 16 mg/dL (7-17) 07/13/22 04:10 Creatinine 0.4 mg/dL (0.6-1.2) L 07/13/22 04:10 Estimated GFR > 60 ml/min 07/13/22 04:10 BUN/Creatinine Ratio 40 % 07/13/22 04:10 Glucose 136 mg/dL (65-100) H 07/13/22 04:10 POC Glucose 174 mg/dL (70-105) H 07/13/22 23:52 Lactic Acid 2.10 mmol/L (0.7-2.0) H* 07/10/22 08:24 Uric Acid 13.5 mg/dL (3.5-7.6) H 07/07/22 04:17 Calcium 8.4 mg/dL (8.4-10.2) 07/13/22 04:10 Phosphorus 3.00 mg/dL (2.5-4.5) 07/13/22 04:10 Magnesium 1.90 mg/dL (1.7-2.3) 07/13/22 04:10 Ferritin 519.5 ng/mL (10.0-200.0) H 07/12/22 04:00 Total Bilirubin 0.30 mg/dL (0.1-1.2) 07/10/22 04:21 AST 89 units/L (5-40) H 07/10/22 04:21 ALT 53 units/L (7-56) 07/10/22 04:21 Alkaline Phosphatase 83 units/L (35-129) 07/10/22 04:21 Ammonia 32.0 umol/L (25-60) 07/07/22 04:17 Lactate Dehydrogenase 444 units/L (91-180) H 07/12/22 04:00 Total Creatine Kinase 1745 units/L (30-135) H 07/11/22 05:40 Troponin T 0.010 ng/mL (0.00-0.029) 07/07/22 04:17 C-Reactive Protein 0.30 mg/dL (0.00-1.30) 07/12/22 04:00 Total Protein 4.9 g/dL (6.3-8.2) L 07/10/22 04:21 Albumin 2.5 g/dL (3.9-5) L 07/10/22 04:21 Albumin/Globulin Ratio 1.0 % 07/10/22 04:21 Procalcitonin 0.19 ng/mL (<0.15) 07/08/22 14:54 TSH 12.790 mlU/mL (0.270-4.200) H 07/07/22 04:17 Free T4 0.78 ng/dL (0.76-1.46) 07/07/22 04:17 Total Cortisol 47.9 mcg/dL () 07/07/22 07:43 Urine Color Yellow (Yellow) 07/07/22 03:17 Urine Turbidity Slightly cloudy (Clear) 07/07/22 03:17 Specific [place] (Man) 1.015 (1.003-1.030) 07/07/22 03:17 Ur Protein (Man) 1+ mg/dL (Negative) 07/07/22 03:17 Ur Ketones (Man) Negative (Negative) 07/07/22 03:17 Ur Nitrite (Man) Negative (Negative) 07/07/22 03:17 Urine Bilirubin (Man) Negative (Negative) 07/07/22 03:17 Leukocyte Esterase (Man) Negative (Negative) 07/07/22 03:17 Urine WBC (Auto) 7.0 /HPF (0.0-6.0) H 07/07/22 03:17 Urine RBC (Auto) 1.0 /HPF (0.0-6.0) 07/07/22 03:17 U Epithel Cells (Auto) 4.0 /HPF (0-13.0) 07/07/22 03:17 Urine Bacteria (Auto) 3+ /HPF (Negative) 07/07/22 03:17 Urine RBC (Manual) 3+ (Negative) 07/07/22 03:17 Urine Mucus 3+ /HPF 07/07/22 03:17 Urine Osmolality 744 Mosm/kg 07/07/22 16:45 Urine Creatinine 92.9 mg/dL (0.1-20.0) H 07/07/22 16:45 Urine Sodium 109 mmol/L 07/07/22 16:45 Salicylates < 0.3 mg/dL (2.8-20.0) L 07/07/22 03:38 Urine Opiates Screen Presumptive negative 07/07/22 03:17 Urine Methadone Screen Presumptive negative 07/07/22 03:17 Acetaminophen 5.0 ug/mL (10.0-30.0) L 07/07/22 03:38 Ur Barbiturates Screen Presumptive negative 07/07/22 03:17 Valproic Acid 7.0 ug/mL (50-100) L 07/07/22 03:38 Ur Phencyclidine Scrn Presumptive negative 07/07/22 03:17 Ur Amphetamines Screen Presumptive negative 07/07/22 03:17 U Benzodiazepines Scrn Presumptive negative 07/07/22 03:17 Urine Cocaine Screen Presumptive negative 07/07/22 03:17 U Marijuana (THC) Screen Presumptive negative 07/07/22 03:17 Drugs of Abuse Note Disclamer 07/07/22 03:17 Plasma/Serum Alcohol < 0.01 % (0-0.07) 07/07/22 03:38 SARS-CoV-2 (PCR) Positive (Negative) A 07/07/22 15:00 [place]/IV: Voiding Method Indwelling Catheter Active Medications - Current Medications Current Medications: Generic Name Dose Route Start Last Admin Trade Name Freq PRN Reason Stop Dose Admin Acetaminophen 650 mg 07/13/22 12:00 Acetaminophen 325 Mg/10.15 Ml Oral Liqd Unit Dose FEEDTUBE Q6H PRN Pain MILD(1-3)/Fever >100.5/LEE Atorvastatin Calcium 80 mg 07/10/22 22:00 07/13/22 21:40 Atorvastatin 40 Mg Tab FEEDTUBE 80 mg QHS ERROL Administration Cholecalciferol 1,000 unit 07/10/22 10:00 07/13/22 10:00 Cholecalciferol (Vit D3) 1000 Unit (25 Mcg) Tab FEEDTUBE 1,000 unit QDAY ERROL Administration Dexamethasone 6 mg 07/08/22 10:00 07/13/22 09:59 Dexamethasone 4 Mg/Ml Vial IV 07/17/22 10:01 6 mg Q24HR ERROL Administration Dextrose 50 ml 07/09/22 11:42 Dextrose 50% In Water (25gm) 50 Ml Syringe IV Q30MIN PRN Hypoglycemia Protocol Famotidine 20 mg 07/09/22 22:00 07/13/22 21:40 Famotidine 20 Mg Tab FEEDTUBE 20 mg BID ERROL Administration Heparin Sodium (Porcine) 5,000 unit 07/08/22 06:00 07/14/22 06:21 Heparin 5,000 Unit/1 Ml Vial SUB-Q 5,000 unit Q12H ERROL Administration Hydrophilic Ointment 1 applic 07/07/22 02:48 Lip Therapy Vaseline TP Q2HR PRN Dry Lips Insulin Human Lispro 0 unit 07/09/22 12:00 07/14/22 06:21 Insulin Lispro 100 Unit/Ml SUB-Q 1 unit Q6HR ERROL Administration Protocol Levothyroxine Sodium 75 mcg 07/11/22 06:00 07/14/22 06:21 Levothyroxine 75 Mcg Tab FEEDTUBE 75 mcg QAM@0600 ERROL Administration Multi-Ingred Cream/Lotion/Oil/Oint 1 applic 07/07/22 02:48 Mineral Oil/Petrolatum, White Ophth Oint 3.5 Gm OU Q4HR PRN Dry Eye(s) Senna/Docusate Sodium 1 tab 07/07/22 10:00 07/13/22 21:40 Sennosides/Docusate Sodium 8.6/50 Mg Tab FEEDTUBE 1 tab BID ERROL Administration Sodium Chloride 10 ml 07/07/22 13:00 07/13/22 21:40 Sodium Chloride 0.9% 10 Ml Flush Syringe IV 10 ml BID ERROL Administration Sodium Chloride 10 ml 07/07/22 12:09 Sodium Chloride 0.9% 10 Ml Flush Syringe IV PRN PRN LINE FLUSH Valproic Acid 250 mg 07/10/22 22:00 07/13/22 21:40 Valproic Acid 250 Mg/5 Ml Oral Liqd FEEDTUBE 250 mg Q12H ERROL Administration Nutrition/Malnutrition Assess - Dietary Evaluation Nutrition/Malnutrition Findings: Nutrition Notes Start: 07/07/22 13:24 Freq: Status: Active Protocol: Document 07/12/22 15:47 CARI (Rec: 07/12/22 15:56 CARI [email or web address]) Nutrition Notes Initial or Follow up Brief Note Current Diet TF - Vital AF 1.2 at 55ml/hr Labs/Tests BG 163 Na 143 K 3.9 Pertinent Medications Reviewed Height 5 ft 6 in Weight 95.254 kg [place] Body Weight (kg) 59.09 BMI 33.9 Subjective/Other Information Pt remains on vent support. Observed TF infusing at 45ml/ hr (15:10). Percent of energy/protein needs met: 74% energy 82% pro Burn Absent Trauma Absent #1 Nutrition Diagnosis Inadequate oral intake Diagnosis Progress(for reassessment Continues documentation) Is patient on ventilator? Yes Is Patient Ambulatory and/or Out of Bed No [facility] 1763.208 Kcal/Kg value to use for calculation 15 Approximate Energy Requirements Using 1429 kcal/Kg Calculation Used for Recommendations Kcal/kg Additional Notes Pro needs 1.3g/kg adjBW: 99g/ day Fluid needs 1ml/kcal Nutrition Intervention Nutrition Support: Decrease TF goal rate to 50ml/ hr with 75ml/hr q4h. Kcal 1,440 Protein (gm) 90 Fluid (mL) 973 Goal #1 TF tolerance Goal #2 TF to meet 70-80% energy and at least 75% pro needs Follow-Up By: 07/17/22 Additional Comments F/U: TF goal rate/tolerance, vent status, wt
--- NOTE | 2022-07-13 14:07 | Progress Note ---
Assessment and Plan Assessment and Plan 76 y/o female with acute respiratory failure secondary to altered mental status, most likely from electrolyte abnormalities seen on chemistry, found to be COVID positive. 07/13/2022: On CPAP/PSV. Tidal volume around 500 mL minute ventilation is less than 5 L respiratory rate is 8/min. We will check arterial blood gases. Still remain somewhat unresponsive does not follow commands. Not a candidate for extubation yet 07/12/22: Negative MRI for acute infarct. Na is normal. Continue to monitor. Daily PSV trials. Has been intubated now for 5 days. 07/11/22: for MRI today. Appreciate renal help, agree with signing off. Attempt daily PSV. Guarded prognosis. 07/10: follow up MRI. Get official EEG read but no status. Continue daily PSV trials. Guarded prognosis 07/09/22: Continue supportive measures. Continue to fix Na, if no improvement in mental state with normal sodium then will pursue MRI. Picc placed today. 07/08/22: No further sedation. 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 Consider neurology consult and may need to obtain MRI. Attempt PSV trials today . needs Picc line placed for medical terminologist access as patient is a difficult stick. Feed patient and monitor lytes. 1. Discontinue sedation 2. Wean FiO2 for sats >88% and PaO2 greater than 60 3. AGree with fluid resuscitation, patient needs free water 4. Will follow up with family to find out exactly what patient mental status was a facility CCT 31 minutes. Subjective Date of service: 07/13/22 Principal diagnosis: Hypernatremia Interval history: No significant change. Orally intubated. Open eyes but otherwise unresponsive. Does not follow commands Objective - Exam Narrative Exam: General appearance: Present: other (Intubated, unresponsive, not on any sedations) - EENT Eyes: Present: PERRL - Respiratory Respiratory effort: normal Respiratory: bilateral: rhonchi - Cardiovascular Rhythm: regular Heart Sounds: Present: S1 & S2 - Extremities Extremities: no ischemia, pulses intact, pulses symmetrical Extremity abnormal: edema - Peripheral Assessment Generalized Edema Type: Non-pitting Edema Degree: 2+ Capillary Refill: < 3 seconds Skin Temperature: Warm Peripheral Pulses: within normal limits - Abdominal General gastrointestinal: soft, non-distended, normal bowel sounds - Integumentary Integumentary: Present: warm, dry - Psychiatric Psychiatric: other (Intubated, unresponsive, not on any sedations) - Neurologic Neurologic: other (Intubated, unresponsive, not on any sedations. Open eyes spontaneously, does not track, not following commands, with nonpurposeful movements) - Allied Health Allied health notes reviewed: nursing, case management Vital Signs - 12hr 07/13/22 07/13/22 07/13/22 03:00 03:01 04:00 Temperature 97.5 F L Pulse Rate 96 H 85 Pulse Rate [ 92 H Left Dorsalis Pedis] Respiratory 12 12 Rate Blood Pressure 99/57 O2 Sat by Pulse 100 100 Oximetry 07/13/22 07/13/22 07/13/22 04:01 04:49 05:01 Temperature Pulse Rate 77 85 87 Pulse Rate [ Left Dorsalis Pedis] Respiratory 12 10 L Rate Blood Pressure 105/51 105/51 105/51 O2 Sat by Pulse 100 100 100 Oximetry 07/13/22 07/13/22 07/13/22 06:00 07:00 07:51 Temperature 97.3 F L Pulse Rate 72 76 82 Pulse Rate [ Left Dorsalis Pedis] Respiratory 12 12 Rate Blood Pressure 102/49 99/53 99/53 O2 Sat by Pulse 100 100 100 Oximetry 07/13/22 07/13/22 07/13/22 08:00 08:01 09:00 Temperature Pulse Rate 98 H 96 H 85 Pulse Rate [ 98 H Left Dorsalis Pedis] Respiratory 13 12 11 L Rate Blood Pressure 119/100 112/57 O2 Sat by Pulse 100 100 100 Oximetry 07/13/22 07/13/22 07/13/22 10:00 11:00 12:00 Temperature 98.2 F Pulse Rate 96 H 85 88 Pulse Rate [ 91 H Left Dorsalis Pedis] Respiratory 13 10 L 10 L Rate Blood Pressure 118/62 111/59 107/69 O2 Sat by Pulse 99 99 99 Oximetry Constitutional: comatose ENT: other (orally intubated) Neck: supple Effort: normal Ascultation: Bilateral: clear Percussion: Bilateral: not dull Cardiovascular: regular rate and rhythm Gastrointestinal: normoactive bowel sounds, soft Extremities: no cyanosis, no edema Neurologic: unable to assess CBC and BMP: 07/13/22 04:00 07/13/22 04:10 ABG, PT/INR, D-dimer: ABG ABG pH 7.465 pH Units (7.350-7.450) H 07/13/22 Unknown ABG pCO2 41.3 mm Hg 07/13/22 Unknown ABG pO2 128.8 mm Hg (80.0-90.0) H 07/13/22 Unknown ABG O2 Saturation 98.6 % (95.0-99.0) 07/13/22 Unknown PT/INR, D-dimer PT 15.0 Sec. (12.2-14.9) H 07/07/22 03:38 INR 1.06 (0.87-1.13) 07/07/22 03:38 D-Dimer 925.80 ng/mlDDU (0-234) H 07/12/22 04:00 Abnormal lab findings: Abnormal Labs 07/07/22 07/07/22 07/07/22 03:17 03:38 03:38 WBC RBC 5.43 H Hgb 18.2 H Hct 54.9 H MCV 101 H MCH 34 H Plt Count 104 L Seg Neutrophils % Seg Neutrophils # PT 15.0 H APTT 23.0 L D-Dimer ABG pH ABG pO2 ABG HCO3 ABG O2 Saturation ABG Base Excess ABG Hemoglobin Oxyhemoglobin Sodium Potassium Chloride Carbon Dioxide BUN Creatinine Glucose POC Glucose Lactic Acid Uric Acid Calcium Magnesium Ferritin Total Bilirubin AST Lactate Dehydrogenase Total Creatine Kinase C-Reactive Protein Total Protein Albumin TSH Urine WBC (Auto) 7.0 H Urine Creatinine Salicylates Acetaminophen Valproic Acid SARS-CoV-2 (PCR) 07/07/22 07/07/22 07/07/22 03:38 03:38 03:38 WBC RBC Hgb Hct MCV MCH Plt Count Seg Neutrophils % Seg Neutrophils # PT APTT D-Dimer ABG pH ABG pO2 ABG HCO3 ABG O2 Saturation ABG Base Excess ABG Hemoglobin Oxyhemoglobin Sodium Potassium Chloride Carbon Dioxide BUN Creatinine Glucose POC Glucose Lactic Acid Uric Acid Calcium Magnesium 3.30 H Ferritin Total Bilirubin AST Lactate Dehydrogenase Total Creatine Kinase 1826 H C-Reactive Protein Total Protein Albumin TSH Urine WBC (Auto) Urine Creatinine Salicylates < 0.3 L Acetaminophen 5.0 L Valproic Acid 7.0 L SARS-CoV-2 (PCR) 07/07/22 07/07/22 07/07/22 04:17 04:17 04:17 WBC RBC Hgb Hct MCV MCH Plt Count Seg Neutrophils % Seg Neutrophils # PT APTT D-Dimer ABG pH ABG pO2 ABG HCO3 ABG O2 Saturation ABG Base Excess ABG Hemoglobin Oxyhemoglobin Sodium 168 H* Potassium 3.2 L Chloride 122.2 H Carbon Dioxide BUN 52 H Creatinine Glucose 158 H POC Glucose Lactic Acid 3.50 H* Uric Acid Calcium 10.9 H Magnesium Ferritin Total Bilirubin 1.40 H AST 47 H Lactate Dehydrogenase Total Creatine Kinase C-Reactive Protein Total Protein Albumin TSH 12.790 H Urine WBC (Auto) Urine Creatinine Salicylates Acetaminophen Valproic Acid SARS-CoV-2 (PCR) 07/07/22 07/07/22 07/07/22 04:17 07:43 09:35 WBC RBC Hgb Hct MCV MCH Plt Count Seg Neutrophils % Seg Neutrophils # PT APTT D-Dimer ABG pH ABG pO2 377.3 H ABG HCO3 ABG O2 Saturation 99.6 H ABG Base Excess -2.5 L ABG Hemoglobin Oxyhemoglobin Sodium Potassium Chloride Carbon Dioxide BUN Creatinine Glucose POC Glucose Lactic Acid 6.30 H* Uric Acid 13.5 H Calcium Magnesium Ferritin Total Bilirubin AST Lactate Dehydrogenase Total Creatine Kinase C-Reactive Protein Total Protein Albumin TSH Urine WBC (Auto) Urine Creatinine Salicylates Acetaminophen Valproic Acid SARS-CoV-2 (PCR) 07/07/22 07/07/22 07/07/22 15:00 16:00 16:00 WBC RBC Hgb Hct MCV MCH Plt Count Seg Neutrophils % Seg Neutrophils # PT APTT D-Dimer ABG pH ABG pO2 ABG HCO3 ABG O2 Saturation ABG Base Excess ABG Hemoglobin Oxyhemoglobin Sodium 166 H* Potassium Chloride 124.8 H Carbon Dioxide 20 L BUN 41 H Creatinine Glucose 157 H POC Glucose Lactic Acid 7.00 H* Uric Acid Calcium Magnesium Ferritin Total Bilirubin AST 81 H Lactate Dehydrogenase Total Creatine Kinase C-Reactive Protein Total Protein Albumin TSH Urine WBC (Auto) Urine Creatinine Salicylates Acetaminophen Valproic Acid SARS-CoV-2 (PCR) Positive A 07/07/22 07/07/22 07/07/22 16:45 23:42 23:42 WBC RBC Hgb Hct MCV MCH Plt Count Seg Neutrophils % Seg Neutrophils # PT APTT D-Dimer ABG pH ABG pO2 ABG HCO3 ABG O2 Saturation ABG Base Excess ABG Hemoglobin Oxyhemoglobin Sodium 165 H* Potassium 3.0 L Chloride 122.8 H Carbon Dioxide BUN 38 H Creatinine Glucose 232 H POC Glucose Lactic Acid 5.60 H* Uric Acid Calcium Magnesium Ferritin Total Bilirubin AST Lactate Dehydrogenase Total Creatine Kinase C-Reactive Protein Total Protein Albumin TSH Urine WBC (Auto) Urine Creatinine 92.9 H Salicylates Acetaminophen Valproic Acid SARS-CoV-2 (PCR) 07/07/22 07/07/22 07/08/22 Unknown Unknown 05:30 WBC RBC Hgb Hct MCV MCH Plt Count Seg Neutrophils % Seg Neutrophils # PT APTT D-Dimer ABG pH 7.553 H 7.473 H ABG pO2 61.7 L 121.7 H ABG HCO3 ABG O2 Saturation 94.7 L ABG Base Excess 4.3 H ABG Hemoglobin 18.0 H Oxyhemoglobin 93.1 L Sodium 163 H* Potassium 6.3 H* D Chloride 123.7 H Carbon Dioxide BUN 42 H Creatinine Glucose 169 H POC Glucose Lactic Acid Uric Acid Calcium Magnesium Ferritin Total Bilirubin AST Lactate Dehydrogenase Total Creatine Kinase C-Reactive Protein Total Protein Albumin TSH Urine WBC (Auto) Urine Creatinine Salicylates Acetaminophen Valproic Acid SARS-CoV-2 (PCR) 07/08/22 07/08/22 07/08/22 05:36 11:21 14:54 WBC 11.1 H RBC Hgb Hct MCV 101 H MCH 33 H Plt Count 69 L Seg Neutrophils % 82.0 H Seg Neutrophils # 9.1 H PT APTT D-Dimer ABG pH ABG pO2 ABG HCO3 ABG O2 Saturation ABG Base Excess ABG Hemoglobin Oxyhemoglobin Sodium Potassium Chloride Carbon Dioxide BUN Creatinine Glucose POC Glucose 174 H 148 H Lactic Acid Uric Acid Calcium Magnesium Ferritin Total Bilirubin AST Lactate Dehydrogenase Total Creatine Kinase C-Reactive Protein Total Protein Albumin TSH Urine WBC (Auto) Urine Creatinine Salicylates Acetaminophen Valproic Acid SARS-CoV-2 (PCR) 07/08/22 07/08/22 07/08/22 14:54 14:54 14:54 WBC RBC Hgb Hct MCV MCH Plt Count Seg Neutrophils % Seg Neutrophils # PT APTT D-Dimer ABG pH ABG pO2 ABG HCO3 ABG O2 Saturation ABG Base Excess ABG Hemoglobin Oxyhemoglobin Sodium 163 H* Potassium 2.9 L* Chloride 123.7 H Carbon Dioxide BUN 30 H Creatinine Glucose 161 H POC Glucose Lactic Acid 6.10 H* Uric Acid Calcium Magnesium Ferritin Total Bilirubin AST 69 H Lactate Dehydrogenase Total Creatine Kinase 2335 H C-Reactive Protein Total Protein 5.6 L D Albumin 3.1 L TSH Urine WBC (Auto) Urine Creatinine Salicylates Acetaminophen Valproic Acid SARS-CoV-2 (PCR) 07/08/22 07/08/22 07/08/22 14:54 14:54 14:54 WBC RBC Hgb Hct MCV MCH Plt Count Seg Neutrophils % Seg Neutrophils # PT APTT D-Dimer 499.72 H ABG pH ABG pO2 ABG HCO3 ABG O2 Saturation ABG Base Excess ABG Hemoglobin Oxyhemoglobin Sodium Potassium Chloride Carbon Dioxide BUN Creatinine Glucose POC Glucose Lactic Acid Uric Acid Calcium Magnesium Ferritin 722.1 H Total Bilirubin AST Lactate Dehydrogenase 455 H Total Creatine Kinase C-Reactive Protein 1.60 H Total Protein Albumin TSH Urine WBC (Auto) Urine Creatinine Salicylates Acetaminophen Valproic Acid SARS-CoV-2 (PCR) 07/08/22 07/08/22 07/09/22 19:13 19:53 00:09 WBC RBC Hgb Hct MCV MCH Plt Count Seg Neutrophils % Seg Neutrophils # PT APTT D-Dimer ABG pH ABG pO2 ABG HCO3 ABG O2 Saturation ABG Base Excess ABG Hemoglobin Oxyhemoglobin Sodium 160 H Potassium 3.5 L D Chloride 122.0 H Carbon Dioxide 20 L BUN 28 H Creatinine Glucose 151 H POC Glucose 138 H Lactic Acid 5.70 H* Uric Acid Calcium Magnesium Ferritin Total Bilirubin AST Lactate Dehydrogenase Total Creatine Kinase C-Reactive Protein Total Protein Albumin TSH Urine WBC (Auto) Urine Creatinine Salicylates Acetaminophen Valproic Acid SARS-CoV-2 (PCR) 07/09/22 07/09/22 07/09/22 00:45 03:21 03:21 WBC RBC Hgb Hct MCV MCH Plt Count Seg Neutrophils % Seg Neutrophils # PT APTT D-Dimer ABG pH ABG pO2 ABG HCO3 ABG O2 Saturation ABG Base Excess ABG Hemoglobin Oxyhemoglobin Sodium 158 H 157 H Potassium Chloride 124.2 H 125.0 H Carbon Dioxide 20 L 20 L BUN 25 H 24 H Creatinine Glucose 147 H 169 H POC Glucose Lactic Acid 4.70 H* Uric Acid Calcium Magnesium Ferritin Total Bilirubin AST 81 H Lactate Dehydrogenase Total Creatine Kinase C-Reactive Protein Total Protein 5.7 L Albumin 2.8 L TSH Urine WBC (Auto) Urine Creatinine Salicylates Acetaminophen Valproic Acid SARS-CoV-2 (PCR) 07/09/22 07/09/22 07/09/22 04:40 05:35 08:14 WBC RBC Hgb Hct MCV 102 H MCH 33 H Plt Count 74 L Seg Neutrophils % Seg Neutrophils # PT APTT D-Dimer ABG pH ABG pO2 172.1 H ABG HCO3 ABG O2 Saturation 99.1 H ABG Base Excess -2.8 L ABG Hemoglobin Oxyhemoglobin Sodium Potassium Chloride Carbon Dioxide BUN Creatinine Glucose POC Glucose 108 H Lactic Acid Uric Acid Calcium Magnesium Ferritin Total Bilirubin AST Lactate Dehydrogenase Total Creatine Kinase C-Reactive Protein Total Protein Albumin TSH Urine WBC (Auto) Urine Creatinine Salicylates Acetaminophen Valproic Acid SARS-CoV-2 (PCR) 07/09/22 07/09/22 07/09/22 11:16 11:27 16:20 WBC RBC Hgb Hct MCV MCH Plt Count Seg Neutrophils % Seg Neutrophils # PT APTT D-Dimer ABG pH ABG pO2 ABG HCO3 ABG O2 Saturation ABG Base Excess ABG Hemoglobin Oxyhemoglobin Sodium 155 H Potassium Chloride 121.3 H Carbon Dioxide BUN 21 H Creatinine Glucose 170 H POC Glucose 173 H 190 H Lactic Acid Uric Acid Calcium Magnesium Ferritin Total Bilirubin AST Lactate Dehydrogenase Total Creatine Kinase C-Reactive Protein Total Protein Albumin TSH Urine WBC (Auto) Urine Creatinine Salicylates Acetaminophen Valproic Acid SARS-CoV-2 (PCR) 07/09/22 07/10/22 07/10/22 17:16 00:04 04:21 WBC RBC Hgb Hct MCV MCH Plt Count Seg Neutrophils % Seg Neutrophils # PT APTT D-Dimer ABG pH ABG pO2 ABG HCO3 ABG O2 Saturation ABG Base Excess ABG Hemoglobin Oxyhemoglobin Sodium 149 H 150 H Potassium Chloride 115.6 H 115.0 H Carbon Dioxide BUN 18 H Creatinine 0.5 L Glucose 207 H 178 H POC Glucose 180 H Lactic Acid Uric Acid Calcium 7.9 L Magnesium Ferritin Total Bilirubin AST 89 H Lactate Dehydrogenase 431 H Total Creatine Kinase C-Reactive Protein Total Protein 4.9 L Albumin 2.5 L TSH Urine WBC (Auto) Urine Creatinine Salicylates Acetaminophen Valproic Acid SARS-CoV-2 (PCR) 07/10/22 07/10/22 07/10/22 04:21 04:21 04:21 WBC 11.8 H RBC 3.52 L Hgb Hct MCV 99 H MCH 33 H Plt Count 67 L Seg Neutrophils % Seg Neutrophils # PT APTT D-Dimer 585.71 H ABG pH ABG pO2 ABG HCO3 ABG O2 Saturation ABG Base Excess ABG Hemoglobin Oxyhemoglobin Sodium Potassium Chloride Carbon Dioxide BUN Creatinine Glucose POC Glucose Lactic Acid Uric Acid Calcium Magnesium Ferritin 631.3 H Total Bilirubin AST Lactate Dehydrogenase Total Creatine Kinase C-Reactive Protein Total Protein Albumin TSH Urine WBC (Auto) Urine Creatinine Salicylates Acetaminophen Valproic Acid SARS-CoV-2 (PCR) 07/10/22 07/10/22 07/10/22 04:21 04:55 05:26 WBC RBC Hgb Hct MCV MCH Plt Count Seg Neutrophils % Seg Neutrophils # PT APTT D-Dimer ABG pH ABG pO2 76.8 L ABG HCO3 ABG O2 Saturation ABG Base Excess ABG Hemoglobin 10.4 L Oxyhemoglobin 94.5 L Sodium Potassium Chloride Carbon Dioxide BUN Creatinine Glucose POC Glucose 147 H Lactic Acid 2.50 H* Uric Acid Calcium Magnesium Ferritin Total Bilirubin AST Lactate Dehydrogenase Total Creatine Kinase C-Reactive Protein Total Protein Albumin TSH Urine WBC (Auto) Urine Creatinine Salicylates Acetaminophen Valproic Acid SARS-CoV-2 (PCR) 07/10/22 07/10/22 07/10/22 08:24 11:31 12:53 WBC RBC Hgb Hct MCV MCH Plt Count Seg Neutrophils % Seg Neutrophils # PT APTT D-Dimer ABG pH ABG pO2 ABG HCO3 ABG O2 Saturation ABG Base Excess ABG Hemoglobin Oxyhemoglobin Sodium Potassium Chloride 110.9 H Carbon Dioxide BUN Creatinine 0.5 L Glucose 200 H POC Glucose 166 H Lactic Acid 2.10 H* Uric Acid Calcium 8.3 L Magnesium Ferritin Total Bilirubin AST Lactate Dehydrogenase Total Creatine Kinase C-Reactive Protein Total Protein Albumin TSH Urine WBC (Auto) Urine Creatinine Salicylates Acetaminophen Valproic Acid SARS-CoV-2 (PCR) 07/10/22 07/10/22 07/10/22 17:37 18:53 23:30 WBC RBC Hgb Hct MCV MCH Plt Count Seg Neutrophils % Seg Neutrophils # PT APTT D-Dimer ABG pH ABG pO2 ABG HCO3 ABG O2 Saturation ABG Base Excess ABG Hemoglobin Oxyhemoglobin Sodium Potassium Chloride 109.5 H 110.2 H Carbon Dioxide BUN Creatinine 0.5 L 0.5 L Glucose 243 H 208 H POC Glucose 237 H Lactic Acid Uric Acid Calcium 8.1 L 8.1 L Magnesium Ferritin Total Bilirubin AST Lactate Dehydrogenase Total Creatine Kinase C-Reactive Protein Total Protein Albumin TSH Urine WBC (Auto) Urine Creatinine Salicylates Acetaminophen Valproic Acid SARS-CoV-2 (PCR) 07/10/22 07/11/22 07/11/22 23:57 04:00 04:15 WBC 11.2 H RBC Hgb Hct MCV 99 H MCH Plt Count 73 L Seg Neutrophils % Seg Neutrophils # PT APTT D-Dimer ABG pH ABG pO2 107.4 H ABG HCO3 ABG O2 Saturation ABG Base Excess ABG Hemoglobin Oxyhemoglobin Sodium Potassium Chloride Carbon Dioxide BUN Creatinine Glucose POC Glucose 195 H Lactic Acid Uric Acid Calcium Magnesium Ferritin Total Bilirubin AST Lactate Dehydrogenase Total Creatine Kinase C-Reactive Protein Total Protein Albumin TSH Urine WBC (Auto) Urine Creatinine Salicylates Acetaminophen Valproic Acid SARS-CoV-2 (PCR) 07/11/22 07/11/22 07/11/22 05:40 05:40 06:06 WBC RBC Hgb Hct MCV MCH Plt Count Seg Neutrophils % Seg Neutrophils # PT APTT D-Dimer ABG pH ABG pO2 ABG HCO3 ABG O2 Saturation ABG Base Excess ABG Hemoglobin Oxyhemoglobin Sodium Potassium Chloride 109.8 H Carbon Dioxide BUN Creatinine 0.5 L Glucose 160 H POC Glucose 145 H Lactic Acid Uric Acid Calcium 8.3 L Magnesium Ferritin Total Bilirubin AST Lactate Dehydrogenase Total Creatine Kinase 1745 H C-Reactive Protein Total Protein Albumin TSH Urine WBC (Auto) Urine Creatinine Salicylates Acetaminophen Valproic Acid SARS-CoV-2 (PCR) 07/11/22 07/11/22 07/11/22 11:55 11:59 17:44 WBC RBC Hgb Hct MCV MCH Plt Count Seg Neutrophils % Seg Neutrophils # PT APTT D-Dimer ABG pH ABG pO2 ABG HCO3 ABG O2 Saturation ABG Base Excess ABG Hemoglobin Oxyhemoglobin Sodium Potassium Chloride 107.8 H Carbon Dioxide BUN Creatinine 0.5 L Glucose 150 H POC Glucose 150 H 182 H Lactic Acid Uric Acid Calcium 8.2 L Magnesium Ferritin Total Bilirubin AST Lactate Dehydrogenase Total Creatine Kinase C-Reactive Protein Total Protein Albumin TSH Urine WBC (Auto) Urine Creatinine Salicylates Acetaminophen Valproic Acid SARS-CoV-2 (PCR) 07/11/22 07/12/22 07/12/22 17:50 00:10 00:12 WBC RBC Hgb Hct MCV MCH Plt Count Seg Neutrophils % Seg Neutrophils # PT APTT D-Dimer ABG pH ABG pO2 ABG HCO3 ABG O2 Saturation ABG Base Excess ABG Hemoglobin Oxyhemoglobin Sodium Potassium Chloride 108.4 H Carbon Dioxide BUN Creatinine 0.5 L 0.4 L Glucose 191 H 163 H POC Glucose 154 H Lactic Acid Uric Acid Calcium 8.2 L 7.9 L Magnesium Ferritin Total Bilirubin AST Lactate Dehydrogenase Total Creatine Kinase C-Reactive Protein Total Protein Albumin TSH Urine WBC (Auto) Urine Creatinine Salicylates Acetaminophen Valproic Acid SARS-CoV-2 (PCR) 07/12/22 07/12/22 07/12/22 04:00 04:00 04:00 WBC RBC Hgb Hct MCV MCH Plt Count Seg Neutrophils % Seg Neutrophils # PT APTT D-Dimer 925.80 H ABG pH ABG pO2 ABG HCO3 ABG O2 Saturation ABG Base Excess ABG Hemoglobin Oxyhemoglobin Sodium Potassium Chloride Carbon Dioxide BUN Creatinine Glucose POC Glucose Lactic Acid Uric Acid Calcium Magnesium Ferritin 519.5 H Total Bilirubin AST Lactate Dehydrogenase 444 H Total Creatine Kinase C-Reactive Protein Total Protein Albumin TSH Urine WBC (Auto) Urine Creatinine Salicylates Acetaminophen Valproic Acid SARS-CoV-2 (PCR) 07/12/22 07/12/22 07/12/22 04:00 05:00 05:03 WBC 11.7 H RBC 3.33 L Hgb Hct MCV 99 H MCH 33 H Plt Count 68 L Seg Neutrophils % Seg Neutrophils # PT APTT D-Dimer ABG pH 7.453 H ABG pO2 107.9 H ABG HCO3 27.9 H ABG O2 Saturation ABG Base Excess 3.7 H ABG Hemoglobin 10.9 L Oxyhemoglobin Sodium Potassium Chloride Carbon Dioxide BUN Creatinine Glucose POC Glucose 174 H Lactic Acid Uric Acid Calcium Magnesium Ferritin Total Bilirubin AST Lactate Dehydrogenase Total Creatine Kinase C-Reactive Protein Total Protein Albumin TSH Urine WBC (Auto) Urine Creatinine Salicylates Acetaminophen Valproic Acid SARS-CoV-2 (PCR) 07/12/22 07/12/22 07/12/22 12:15 17:18 23:14 WBC RBC Hgb Hct MCV MCH Plt Count Seg Neutrophils % Seg Neutrophils # PT APTT D-Dimer ABG pH ABG pO2 ABG HCO3 ABG O2 Saturation ABG Base Excess ABG Hemoglobin Oxyhemoglobin Sodium Potassium Chloride Carbon Dioxide BUN Creatinine Glucose POC Glucose 154 H 154 H 167 H Lactic Acid Uric Acid Calcium Magnesium Ferritin Total Bilirubin AST Lactate Dehydrogenase Total Creatine Kinase C-Reactive Protein Total Protein Albumin TSH Urine WBC (Auto) Urine Creatinine Salicylates Acetaminophen Valproic Acid SARS-CoV-2 (PCR) 07/13/22 07/13/22 07/13/22 04:00 04:10 05:14 WBC RBC 3.17 L Hgb Hct MCV 98 H MCH 34 H Plt Count 75 L Seg Neutrophils % Seg Neutrophils # PT APTT D-Dimer ABG pH ABG pO2 ABG HCO3 ABG O2 Saturation ABG Base Excess ABG Hemoglobin Oxyhemoglobin Sodium Potassium Chloride Carbon Dioxide BUN Creatinine 0.4 L Glucose 136 H POC Glucose 140 H Lactic Acid Uric Acid Calcium Magnesium Ferritin Total Bilirubin AST Lactate Dehydrogenase Total Creatine Kinase C-Reactive Protein Total Protein Albumin TSH Urine WBC (Auto) Urine Creatinine Salicylates Acetaminophen Valproic Acid SARS-CoV-2 (PCR) 07/13/22 Unknown WBC RBC Hgb Hct MCV MCH Plt Count Seg Neutrophils % Seg Neutrophils # PT APTT D-Dimer ABG pH 7.465 H ABG pO2 128.8 H ABG HCO3 29.0 H ABG O2 Saturation ABG Base Excess 4.9 H ABG Hemoglobin 10.3 L Oxyhemoglobin Sodium Potassium Chloride Carbon Dioxide BUN Creatinine Glucose POC Glucose Lactic Acid Uric Acid Calcium Magnesium Ferritin Total Bilirubin AST Lactate Dehydrogenase Total Creatine Kinase C-Reactive Protein Total Protein Albumin TSH Urine WBC (Auto) Urine Creatinine Salicylates Acetaminophen Valproic Acid SARS-CoV-2 (PCR)
[2022-07-13 15:10] LABS: ABG Base Excess 4.5 mmol/L (-2.0-3.0); ABG HCO3 28.2 mmol/L (20.0-26.0); ABG Methemoglobin 0.7 % (0.0-1.5); ABG Oxygen Saturation 98.4 % (95.0-99.0); ABG PCO2 38.9 mm Hg; ABG PH 7.478 pH Units (7.350-7.450); ABG PO2 118.1 mm Hg (80.0-90.0)
[2022-07-14] MEDS: INSULIN LISPRO 100 UNIT/ML SUB-Q SCH ×4 (00:15→17:30)
[2022-07-14] MEDS: LEVOTHYROXINE 75 MCG TAB FEEDTUBE SCH (06:21)
[2022-07-14] MEDS: HEPARIN 5,000 UNIT/1 ML VIAL SUB-Q SCH ×2 (06:21→17:30)
[2022-07-14] MEDS: dexAMETHasone 4 MG/ML VIAL IV SCH (10:09)
[2022-07-14] MEDS: SENNOSIDES/DOCUSATE SODIUM 8.6/50 MG TAB FEEDTUBE SCH ×2 (10:09→22:05)
[2022-07-14] MEDS: CHOLECALCIFEROL (VIT D3) 1000 UNIT (25 mcg) TAB FEEDTUBE SCH (10:09)
[2022-07-14] MEDS: FAMOTIDINE 20 MG TAB FEEDTUBE SCH ×2 (10:09→22:05)
[2022-07-14] MEDS: VALPROIC ACID 250 MG/5 ML ORAL LIQD FEEDTUBE SCH ×2 (10:11→22:05)
--- NOTE | 2022-07-14 10:19 | Progress Note ---
Assessment and Plan Cultures: SARS CoV2 PCR: Positive 07/07/2022 blood culture: No growth 07/07/2022 sputum culture: Klebsiella A/P: 76-year-old female with prior CVA, hemiplegia, aphasia, dementia, history of pulmonary embolism was admitted from the correction with altered mental status, hypoxia. Was seen in the ED, intubated for airway protection: #COVID-19: CXR without significant pneumonia. Procalcitonin 0.19. Lactate 4.7. CRP 1.6. S/P abx and remdesivir. #Acute hypoxic respiratory failure: On mechanical ventilation. 30% FiO2. #Acute encephalopathy: Likely metabolic, sodium was significantly elevated on admission. MRI did not show any acute abnormality. #Chronic CVA, dementia #Transaminitis: Mild, could be related to COVID-19, there was mild CPK elevation as well. Improving. Recs: -Completed Remdesivir -Completed antibiotics -Remove Carol Oro MD [facility] ([facility]) Office [phone] Subjective Principal diagnosis: Hypernatremia Interval history: Remains on the vent on CPAP, no fever, no pressors Objective - Exam Narrative Exam: General appearance: Intubated on the ventilator Eyes: anicteric sclerae, moist conjunctivae; no lid-lag; PERRLA HENT: Normocephalic, Atraumatic; normal external ears, nares open, oropharynx limited due to endotracheal tube Neck: supple, tracheal midline, no JVD Lungs: Bilateral rhonchi CV: RRR no murmur Abdomen: Soft, non-tender; no masses or hepatosplenomegaly Extremities: Bilateral lower extremity edema Skin: No rash. Psych: no agitated Neuro: alert on the ventilator [place] in place - Constitutional Vitals: Vital Signs Temp Pulse Resp BP Pulse Ox 97.9 F 90 10 L 93/51 100 07/14/22 07:14 07/14/22 08:45 07/14/22 08:45 07/14/22 08:45 07/14/22 08:45 Temperature -Last 24 Hours Temperature 97.9 F Temperature 98 F Temperature 97.6 F Temperature 98.4 F Temperature 98.2 F Temperature 98.2 F - Labs CBC & Chem 7: 07/13/22 04:00 07/13/22 04:10 Labs: Abnormal lab results 07/13/22 07/13/22 07/13/22 Range/Units 12:03 14:25 17:19 ABG pH 7.478 H (7.350-7.450) pH Units ABG pO2 118.1 H (80.0-90.0) mm Hg ABG HCO3 28.2 H (20.0-26.0) mmol/L ABG Base Excess 4.5 H (-2.0-3.0) mmol/L POC Glucose 193 H 189 H (70-105) mg/dL 07/13/22 07/14/22 Range/Units 23:52 06:18 ABG pH (7.350-7.450) pH Units ABG pO2 (80.0-90.0) mm Hg ABG HCO3 (20.0-26.0) mmol/L ABG Base Excess (-2.0-3.0) mmol/L POC Glucose 174 H 167 H (70-105) mg/dL
--- NOTE | 2022-07-14 11:20 | Progress Note ---
<GEORGE DAVIS - Last Filed: 07/14/22 19:04> Assessment and Plan Assessment and plan: This is a 76-year-old female with CVA, pulmonary embolism, hypothyroidism and JUJU admitted with electrolyte imbalances, hypoxic respiratory failure and COVID- 19 pneumonia Hospital Course to Date: 07/08: Patient noted to be COVID-positive, started on remdesivir, Decadron, ceftriaxone azithromycin and infectious disease was consulted yesterday. This morning patient is on any sedation, PICC line to be placed. RT to attempt PSV. Started on free water flushes and tube feedings. Continues on D5 half-normal saline. 07/09: Patient remains encephalopathic, not on any sedation. Hypernatremia is improving, on FWF Q4hrs and D5w gtt per Nephro. If hypernatremia continue to improve and patient's mentation is unchanged, will get a repeat CT to r/o intracranial abnormalities. Patient remains afebrile, leukocytosis improved, and VSS. Continue current IV abx per ID. Patient failed PSV trial again today, trevon nue PSV trial as tolerated 07/10: Remains stable on the vent, tolerating PSV trial this am. sodium continue to improve but no change in mental status. D/w CCM will get MRI brain to r/o any intracranial abnormalities, EEG also ordered to r/o seizures. Continue FWF and D5w gtt per Nephro. Continue IV steroids and current IV abx per ID. 07/11: Hypernatremia resolved, mentation is unchanged, remains on low vent setting. EEG noted, and MRI brain pending. Will consult Neurology for further recommendations. Continue daily PSV trial as tolerated. 07/12: Appears more awake this morning but still not following any commands. MRI brain with no acute findings and sodium normalized. Awaiting Neuro consult. Continue daily PSV trial as tolerated. Patient's daughter was updated via phone, all questions and concerns were addressed at this time. Medical records requested from [facility] and [facility]. 07/13: DELMI overnight. Mentation is unchanged, remains stable on the vent. Neurology consult pending. Continue vent adjustment per CCM and daily PSV trial as tolerated. 07/14: Mentation is unchanged, remains afebrile and stable on the vent, VSS. Complete antibiotics course, still on IV steroids X3 more days. ID recommendations noted, remove corbin. Continue daily PSV trial as tolerated. Neuro: Acute metabolic encephalopathy, h/o CVA with hemiplegia, dysphagia, aphasia, dementia -Reorientation as needed -Maintain sleep-wake cycle -Resume home Lipitor -As needed analgesia -CT head shows no acute intracranial hemorrhage, multiple chronic appearing infarcts including left MCA distribution, left cerebral hemisphere and within the right basal ganglia -Depakene -EEG noted -MRI noted -Neurology consult pending Cardiac: h/o HLD -Resume home Lipitor -Blood pressure monitoring per protocol Respiratory: Acute hypoxic respiratory failure, h/o JUJU, pulmonary embolism -CCM consulted, appreciate recommendations -Intubated on 07/07 with a 7.50 ETT at 24 the lips -A.m. vent settings:PRVC-30%,6,12,400 -See RT notes for titration -A.m. ABG and CXR noted -VAP bundle -SPO2 monitoring GI: NAD -PPI -NTR consulted for tube feedings -BR: Senokot-S : Hypernatremia(resolved), hypokalemia, rhabdomyolysis -Nephrology consulted, appreciate recommendations -Monitor intake and output -Free water flush -BMP every 6 per nephrology -Renally dose medications -Avoid nephrotoxic medications -IVF with KCL, D5 -Replete potassium -Trend BMP ID: COVID Pneumonia, lactic acidosis -Infectious disease consulted, appreciate recommendation -completed IV antibiotics course -Dexamethasone for 10 days, end 07/17 -Contact/droplet precautions -f/u blood culture -Trend COVID-19 inflammatory markers -Monitor WBC and temperature curve -Prophylactic anticoagulation based on D-dimer per hospital protocol Heme: Thrombocytopenia -Patient presented with low plt -Plt continue to trend down, but less than 50% of admit count -No s/s of any active bleeding, H&H stable -Continue to trend CBC -On Heparin SubQ -Transfuse for plt less than 20 and hgb less than 7 Endo: h/o hypothyroidism -Avoid hypoglycemia -SSI -Accu-Cheks q. 6 -Long-acting insulin, titrate as needed -Resume home Synthroid GI/DVT Prophylaxis -PPI- pepcid -Heparin SubQ -SCDs to bilateral lower extremities while in bed The high probability of a clinically significant, sudden or life threatening deterioration of the [multi] system(s) required my full and direct attention, intervention and personal management. The aggregate critical care time was [60] minutes. This time is in addition to time spent performing reported procedures b ut includes the following: [x] Data Review and interpretation [x] Patient assessment and monitoring of vital signs [x] Documentation [x] Medication orders and management Disposition Plan: ICU Total Time Spent with Patient (Minutes): 60 History Interval history: Patient seen and examined at the bedside. Remains on the vent. Mentation is unchanged. VSS. DELMI overnight Hospitalist Physical - Physical exam Narrative exam: General appearance: Present: other (Intubated, unresponsive, not on any sedations) - EENT Eyes: Present: PERRL - Respiratory Respiratory effort: normal Respiratory: bilateral: rhonchi - Cardiovascular Rhythm: regular Heart Sounds: Present: S1 & S2 - Extremities Extremities: no ischemia, pulses intact, pulses symmetrical Extremity abnormal: edema - Peripheral Assessment Generalized Edema Type: Non-pitting Edema Degree: 2+ Capillary Refill: < 3 seconds Skin Temperature: Warm Peripheral Pulses: within normal limits - Abdominal General gastrointestinal: soft, non-distended, normal bowel sounds - Integumentary Integumentary: Present: warm, dry - Psychiatric Psychiatric: other (Intubated, unresponsive, not on any sedations) - Neurologic Neurologic: other (Intubated, unresponsive, not on any sedations. Open eyes spontaneously, does not track, not following commands, with nonpurposeful movements) - Allied Health Allied health notes reviewed: nursing, case management - Constitutional Vitals: Temp Pulse Resp BP Pulse Ox 97.9 F 90 10 L 93/51 100 07/14/22 07:14 07/14/22 08:45 07/14/22 08:45 07/14/22 08:45 07/14/22 08:45 HEART Score - HEART Score Troponin: Troponin T 0.010 ng/mL (0.00-0.029) 07/07/22 04:17 Results - Labs CBC & Chem 7: 07/13/22 04:00 07/13/22 04:10 Labs: Laboratory Last Values WBC 10.4 K/mm3 (4.5-11.0) 07/13/22 04:00 RBC 3.17 M/mm3 (3.65-5.03) L 07/13/22 04:00 Hgb 10.6 gm/dl (10.1-14.3) 07/13/22 04:00 Hct 30.9 % (30.3-42.9) 07/13/22 04:00 MCV 98 fl (79-97) H 07/13/22 04:00 MCH 34 pg (28-32) H 07/13/22 04:00 MCHC 34 % (30-34) 07/13/22 04:00 RDW 14.2 % (13.2-15.2) 07/13/22 04:00 Plt Count 75 K/mm3 (140-440) L 07/13/22 04:00 Lymph % (Auto) 15.2 % (13.4-35.0) 07/08/22 14:54 [place] % (Auto) 2.7 % (0.0-7.3) 07/08/22 14:54 Eos % (Auto) 0.0 % (0.0-4.3) 07/08/22 14:54 Baso % (Auto) 0.1 % (0.0-1.8) 07/08/22 14:54 Lymph # (Auto) 1.7 K/mm3 (1.2-5.4) 07/08/22 14:54 [place] # (Auto) 0.3 K/mm3 (0.0-0.8) 07/08/22 14:54 Eos # (Auto) 0.0 K/mm3 (0.0-0.4) 07/08/22 14:54 Baso # (Auto) 0.0 K/mm3 (0.0-0.1) 07/08/22 14:54 Seg Neutrophils % 82.0 % (40.0-70.0) H 07/08/22 14:54 Seg Neutrophils # 9.1 K/mm3 (1.8-7.7) H 07/08/22 14:54 PT 15.0 Sec. (12.2-14.9) H 07/07/22 03:38 INR 1.06 (0.87-1.13) 07/07/22 03:38 APTT 23.0 Sec. (24.2-36.6) L 07/07/22 03:38 D-Dimer 925.80 ng/mlDDU (0-234) H 07/12/22 04:00 ABG pH 7.465 pH Units (7.350-7.450) H 07/13/22 Unknown ABG pCO2 41.3 mm Hg 07/13/22 Unknown ABG pO2 128.8 mm Hg (80.0-90.0) H 07/13/22 Unknown ABG HCO3 29.0 mmol/L (20.0-26.0) H 07/13/22 Unknown ABG O2 Saturation 98.6 % (95.0-99.0) 07/13/22 Unknown ABG O2 Content 14.3 (0.0-44) 07/13/22 Unknown ABG Base Excess 4.9 mmol/L (-2.0-3.0) H 07/13/22 Unknown ABG Hemoglobin 10.3 gm/dl (12.0-16.0) L 07/13/22 Unknown ABG Carboxyhemoglobin 0.9 % (0.0-5.0) 07/13/22 Unknown ABG Methemoglobin 0.7 % (0.0-1.5) 07/13/22 Unknown Oxyhemoglobin 97.0 % (95.0-99.0) 07/13/22 Unknown FiO2 30 % 07/13/22 Unknown Sodium 141 mmol/L (137-145) 07/13/22 04:10 Potassium 4.0 mmol/L (3.6-5.0) 07/13/22 04:10 Chloride 102.8 mmol/L (98-107) 07/13/22 04:10 Carbon Dioxide 28 mmol/L (22-30) 07/13/22 04:10 Anion Gap 14 mmol/L 07/13/22 04:10 BUN 16 mg/dL (7-17) 07/13/22 04:10 Creatinine 0.4 mg/dL (0.6-1.2) L 07/13/22 04:10 Estimated GFR > 60 ml/min 07/13/22 04:10 BUN/Creatinine Ratio 40 % 07/13/22 04:10 Glucose 136 mg/dL (65-100) H 07/13/22 04:10 POC Glucose 167 mg/dL (70-105) H 07/14/22 06:18 Lactic Acid 2.10 mmol/L (0.7-2.0) H* 07/10/22 08:24 Uric Acid 13.5 mg/dL (3.5-7.6) H 07/07/22 04:17 Calcium 8.4 mg/dL (8.4-10.2) 07/13/22 04:10 Phosphorus 3.00 mg/dL (2.5-4.5) 07/13/22 04:10 Magnesium 1.90 mg/dL (1.7-2.3) 07/13/22 04:10 Ferritin 519.5 ng/mL (10.0-200.0) H 07/12/22 04:00 Total Bilirubin 0.30 mg/dL (0.1-1.2) 07/10/22 04:21 AST 89 units/L (5-40) H 07/10/22 04:21 ALT 53 units/L (7-56) 07/10/22 04:21 Alkaline Phosphatase 83 units/L (35-129) 07/10/22 04:21 Ammonia 32.0 umol/L (25-60) 07/07/22 04:17 Lactate Dehydrogenase 444 units/L (91-180) H 07/12/22 04:00 Total Creatine Kinase 1745 units/L (30-135) H 07/11/22 05:40 Troponin T 0.010 ng/mL (0.00-0.029) 07/07/22 04:17 C-Reactive Protein 0.30 mg/dL (0.00-1.30) 07/12/22 04:00 Total Protein 4.9 g/dL (6.3-8.2) L 07/10/22 04:21 Albumin 2.5 g/dL (3.9-5) L 07/10/22 04:21 Albumin/Globulin Ratio 1.0 % 07/10/22 04:21 Procalcitonin 0.19 ng/mL (<0.15) 07/08/22 14:54 TSH 12.790 mlU/mL (0.270-4.200) H 07/07/22 04:17 Free T4 0.78 ng/dL (0.76-1.46) 07/07/22 04:17 Total Cortisol 47.9 mcg/dL () 07/07/22 07:43 Urine Color Yellow (Yellow) 07/07/22 03:17 Urine Turbidity Slightly cloudy (Clear) 07/07/22 03:17 Specific [place] (Man) 1.015 (1.003-1.030) 07/07/22 03:17 Ur Protein (Man) 1+ mg/dL (Negative) 07/07/22 03:17 Ur Ketones (Man) Negative (Negative) 07/07/22 03:17 Ur Nitrite (Man) Negative (Negative) 07/07/22 03:17 Urine Bilirubin (Man) Negative (Negative) 07/07/22 03:17 Leukocyte Esterase (Man) Negative (Negative) 07/07/22 03:17 Urine WBC (Auto) 7.0 /HPF (0.0-6.0) H 07/07/22 03:17 Urine RBC (Auto) 1.0 /HPF (0.0-6.0) 07/07/22 03:17 U Epithel Cells (Auto) 4.0 /HPF (0-13.0) 07/07/22 03:17 Urine Bacteria (Auto) 3+ /HPF (Negative) 07/07/22 03:17 Urine RBC (Manual) 3+ (Negative) 07/07/22 03:17 Urine Mucus 3+ /HPF 07/07/22 03:17 Urine Osmolality 744 Mosm/kg 07/07/22 16:45 Urine Creatinine 92.9 mg/dL (0.1-20.0) H 07/07/22 16:45 Urine Sodium 109 mmol/L 07/07/22 16:45 Salicylates < 0.3 mg/dL (2.8-20.0) L 07/07/22 03:38 Urine Opiates Screen Presumptive negative 07/07/22 03:17 Urine Methadone Screen Presumptive negative 07/07/22 03:17 Acetaminophen 5.0 ug/mL (10.0-30.0) L 07/07/22 03:38 Ur Barbiturates Screen Presumptive negative 07/07/22 03:17 Valproic Acid 7.0 ug/mL (50-100) L 07/07/22 03:38 Ur Phencyclidine Scrn Presumptive negative 07/07/22 03:17 Ur Amphetamines Screen Presumptive negative 07/07/22 03:17 U Benzodiazepines Scrn Presumptive negative 07/07/22 03:17 Urine Cocaine Screen Presumptive negative 07/07/22 03:17 U Marijuana (THC) Screen Presumptive negative 07/07/22 03:17 Drugs of Abuse Note Disclamer 07/07/22 03:17 Plasma/Serum Alcohol < 0.01 % (0-0.07) 07/07/22 03:38 SARS-CoV-2 (PCR) Positive (Negative) A 07/07/22 15:00 Corbin/IV: Voiding Method Indwelling Catheter Active Medications - Current Medications Current Medications: Generic Name Dose Route Start Last Admin Trade Name Freq PRN Reason Stop Dose Admin Acetaminophen 650 mg 07/13/22 12:00 Acetaminophen 325 Mg/10.15 Ml Oral Liqd Unit Dose FEEDTUBE Q6H PRN Pain MILD(1-3)/Fever >100.5/LEE Atorvastatin Calcium 80 mg 07/10/22 22:00 07/13/22 21:40 Atorvastatin 40 Mg Tab FEEDTUBE 80 mg QHS ERROL Administration Cholecalciferol 1,000 unit 07/10/22 10:00 07/14/22 10:09 Cholecalciferol (Vit D3) 1000 Unit (25 Mcg) Tab FEEDTUBE 1,000 unit QDAY ERROL Administration Dexamethasone 6 mg 07/08/22 10:00 07/14/22 10:09 Dexamethasone 4 Mg/Ml Vial IV 07/17/22 10:01 6 mg Q24HR ERROL Administration Dextrose 50 ml 07/09/22 11:42 Dextrose 50% In Water (25gm) 50 Ml Syringe IV Q30MIN PRN Hypoglycemia Protocol Famotidine 20 mg 07/09/22 22:00 07/14/22 10:09 Famotidine 20 Mg Tab FEEDTUBE 20 mg BID ERROL Administration Heparin Sodium (Porcine) 5,000 unit 07/08/22 06:00 07/14/22 06:21 Heparin 5,000 Unit/1 Ml Vial SUB-Q 5,000 unit Q12H ERROL Administration Hydrophilic Ointment 1 applic 07/07/22 02:48 Lip Therapy Vaseline TP Q2HR PRN Dry Lips Insulin Human Lispro 0 unit 07/09/22 12:00 07/14/22 06:21 Insulin Lispro 100 Unit/Ml SUB-Q 1 unit Q6HR ERROL Administration Protocol Levothyroxine Sodium 75 mcg 07/11/22 06:00 07/14/22 06:21 Levothyroxine 75 Mcg Tab FEEDTUBE 75 mcg QAM@0600 ERROL Administration Multi-Ingred Cream/Lotion/Oil/Oint 1 applic 07/07/22 02:48 Mineral Oil/Petrolatum, White Ophth Oint 3.5 Gm OU Q4HR PRN Dry Eye(s) Senna/Docusate Sodium 1 tab 07/07/22 10:00 07/14/22 10:09 Sennosides/Docusate Sodium 8.6/50 Mg Tab FEEDTUBE 1 tab BID ERROL Administration Sodium Chloride 10 ml 07/07/22 13:00 07/14/22 10:09 Sodium Chloride 0.9% 10 Ml Flush Syringe IV 10 ml BID ERROL Administration Sodium Chloride 10 ml 07/07/22 12:09 Sodium Chloride 0.9% 10 Ml Flush Syringe IV PRN PRN LINE FLUSH Valproic Acid 250 mg 07/10/22 22:00 07/14/22 10:11 Valproic Acid 250 Mg/5 Ml Oral Liqd FEEDTUBE 250 mg Q12H ERROL Administration Nutrition/Malnutrition Assess - Dietary Evaluation Nutrition/Malnutrition Findings: Nutrition Notes Start: 07/07/22 13:24 Freq: Status: Active Protocol: Document 07/12/22 15:47 [facility] (Rec: 07/12/22 15:56 [facility] [id number]) Nutrition Notes Initial or Follow up Brief Note Current Diet TF - Vital AF 1.2 at 55ml/hr Labs/Tests BG 163 Na 143 K 3.9 Pertinent Medications Reviewed Height 5 ft 6 in Weight 95.254 kg [place] Body Weight (kg) 59.09 BMI 33.9 Subjective/Other Information Pt remains on vent support. Observed TF infusing at 45ml/ hr (15:10). Percent of energy/protein needs met: 74% energy 82% pro Burn Absent Trauma Absent #1 Nutrition Diagnosis Inadequate oral intake Diagnosis Progress(for reassessment Continues documentation) Is patient on ventilator? Yes Is Patient Ambulatory and/or Out of Bed No REE-([facility]-confined to bed) 1763.208 Kcal/Kg value to use for calculation 15 Approximate Energy Requirements Using 1429 kcal/Kg Calculation Used for Recommendations Kcal/kg Additional Notes Pro needs 1.3g/kg adjBW: 99g/ day Fluid needs 1ml/kcal Nutrition Intervention Nutrition Support: Decrease TF goal rate to 50ml/ hr with 75ml/hr q4h. Kcal 1,440 Protein (gm) 90 Fluid (mL) 973 Goal #1 TF tolerance Goal #2 TF to meet 70-80% energy and at least 75% pro needs Follow-Up By: 07/17/22 Additional Comments F/U: TF goal rate/tolerance, vent status, wt <ANAHI ANGELES - Last Filed: 07/15/22 07:23> Assessment and Plan Assessment and plan: I saw and evaluated the patient. I agree with the findings and the plan of care as documented in the Nurse Practitioner's~note, with the following corrections and additions. Hospitalist Physical - Constitutional Vitals: Temp Pulse Resp BP Pulse Ox 98.1 F 90 14 114/64 99 07/15/22 07:03 07/15/22 06:00 07/15/22 06:00 07/15/22 06:00 07/15/22 06:00 HEART Score - HEART Score Troponin: Troponin T 0.010 ng/mL (0.00-0.029) 07/07/22 04:17 Results - Labs CBC & Chem 7: 07/15/22 04:00 07/15/22 04:00 Labs: Laboratory Last Values WBC 11.4 K/mm3 (4.5-11.0) H 07/15/22 04:00 RBC 3.13 M/mm3 (3.65-5.03) L 07/15/22 04:00 Hgb 10.3 gm/dl (10.1-14.3) 07/15/22 04:00 Hct 30.7 % (30.3-42.9) 07/15/22 04:00 MCV 98 fl (79-97) H 07/15/22 04:00 MCH 33 pg (28-32) H 07/15/22 04:00 MCHC 34 % (30-34) 07/15/22 04:00 RDW 14.7 % (13.2-15.2) 07/15/22 04:00 Plt Count 98 K/mm3 (140-440) L 07/15/22 04:00 Lymph % (Auto) 15.2 % (13.4-35.0) 07/08/22 14:54 [place] % (Auto) 2.7 % (0.0-7.3) 07/08/22 14:54 Eos % (Auto) 0.0 % (0.0-4.3) 07/08/22 14:54 Baso % (Auto) 0.1 % (0.0-1.8) 07/08/22 14:54 Lymph # (Auto) 1.7 K/mm3 (1.2-5.4) 07/08/22 14:54 [place] # (Auto) 0.3 K/mm3 (0.0-0.8) 07/08/22 14:54 Eos # (Auto) 0.0 K/mm3 (0.0-0.4) 07/08/22 14:54 Baso # (Auto) 0.0 K/mm3 (0.0-0.1) 07/08/22 14:54 Seg Neutrophils % 82.0 % (40.0-70.0) H 07/08/22 14:54 Seg Neutrophils # 9.1 K/mm3 (1.8-7.7) H 07/08/22 14:54 PT 15.0 Sec. (12.2-14.9) H 07/07/22 03:38 INR 1.06 (0.87-1.13) 07/07/22 03:38 APTT 23.0 Sec. (24.2-36.6) L 07/07/22 03:38 D-Dimer 925.80 ng/mlDDU (0-234) H 07/12/22 04:00 ABG pH 7.465 pH Units (7.350-7.450) H 07/13/22 Unknown ABG pCO2 41.3 mm Hg 07/13/22 Unknown ABG pO2 128.8 mm Hg (80.0-90.0) H 07/13/22 Unknown ABG HCO3 29.0 mmol/L (20.0-26.0) H 07/13/22 Unknown ABG O2 Saturation 98.6 % (95.0-99.0) 07/13/22 Unknown ABG O2 Content 14.3 (0.0-44) 07/13/22 Unknown ABG Base Excess 4.9 mmol/L (-2.0-3.0) H 07/13/22 Unknown ABG Hemoglobin 10.3 gm/dl (12.0-16.0) L 07/13/22 Unknown ABG Carboxyhemoglobin 0.9 % (0.0-5.0) 07/13/22 Unknown ABG Methemoglobin 0.7 % (0.0-1.5) 07/13/22 Unknown Oxyhemoglobin 97.0 % (95.0-99.0) 07/13/22 Unknown FiO2 30 % 07/13/22 Unknown Sodium 142 mmol/L (137-145) 07/15/22 04:00 Potassium 4.3 mmol/L (3.6-5.0) 07/15/22 04:00 Chloride 102.6 mmol/L (98-107) 07/15/22 04:00 Carbon Dioxide 34 mmol/L (22-30) H 07/15/22 04:00 Anion Gap 10 mmol/L 07/15/22 04:00 BUN 17 mg/dL (7-17) 07/15/22 04:00 Creatinine 0.4 mg/dL (0.6-1.2) L 07/15/22 04:00 Estimated GFR > 60 ml/min 07/15/22 04:00 BUN/Creatinine Ratio 43 % 07/15/22 04:00 Glucose 126 mg/dL (65-100) H 07/15/22 04:00 POC Glucose 221 mg/dL (70-105) H 07/14/22 17:20 Lactic Acid 2.10 mmol/L (0.7-2.0) H* 07/10/22 08:24 Uric Acid 13.5 mg/dL (3.5-7.6) H 07/07/22 04:17 Calcium 8.8 mg/dL (8.4-10.2) 07/15/22 04:00 Phosphorus 2.90 mg/dL (2.5-4.5) 07/15/22 04:00 Magnesium 1.80 mg/dL (1.7-2.3) 07/15/22 04:00 Ferritin 519.5 ng/mL (10.0-200.0) H 07/12/22 04:00 Total Bilirubin 0.30 mg/dL (0.1-1.2) 07/10/22 04:21 AST 89 units/L (5-40) H 07/10/22 04:21 ALT 53 units/L (7-56) 07/10/22 04:21 Alkaline Phosphatase 83 units/L (35-129) 07/10/22 04:21 Ammonia 32.0 umol/L (25-60) 07/07/22 04:17 Lactate Dehydrogenase 444 units/L (91-180) H 07/12/22 04:00 Total Creatine Kinase 1745 units/L (30-135) H 07/11/22 05:40 Troponin T 0.010 ng/mL (0.00-0.029) 07/07/22 04:17 C-Reactive Protein 0.30 mg/dL (0.00-1.30) 07/12/22 04:00 Total Protein 4.9 g/dL (6.3-8.2) L 07/10/22 04:21 Albumin 2.5 g/dL (3.9-5) L 07/10/22 04:21 Albumin/Globulin Ratio 1.0 % 07/10/22 04:21 Procalcitonin 0.19 ng/mL (<0.15) 07/08/22 14:54 TSH 12.790 mlU/mL (0.270-4.200) H 07/07/22 04:17 Free T4 0.78 ng/dL (0.76-1.46) 07/07/22 04:17 Total Cortisol 47.9 mcg/dL () 07/07/22 07:43 Urine Color Yellow (Yellow) 07/07/22 03:17 Urine Turbidity Slightly cloudy (Clear) 07/07/22 03:17 Specific [place] (Man) 1.015 (1.003-1.030) 07/07/22 03:17 Ur Protein (Man) 1+ mg/dL (Negative) 07/07/22 03:17 Ur Ketones (Man) Negative (Negative) 07/07/22 03:17 Ur Nitrite (Man) Negative (Negative) 07/07/22 03:17 Urine Bilirubin (Man) Negative (Negative) 07/07/22 03:17 Leukocyte Esterase (Man) Negative (Negative) 07/07/22 03:17 Urine WBC (Auto) 7.0 /HPF (0.0-6.0) H 07/07/22 03:17 Urine RBC (Auto) 1.0 /HPF (0.0-6.0) 07/07/22 03:17 U Epithel Cells (Auto) 4.0 /HPF (0-13.0) 07/07/22 03:17 Urine Bacteria (Auto) 3+ /HPF (Negative) 07/07/22 03:17 Urine RBC (Manual) 3+ (Negative) 07/07/22 03:17 Urine Mucus 3+ /HPF 07/07/22 03:17 Urine Osmolality 744 Mosm/kg 07/07/22 16:45 Urine Creatinine 92.9 mg/dL (0.1-20.0) H 07/07/22 16:45 Urine Sodium 109 mmol/L 07/07/22 16:45 Salicylates < 0.3 mg/dL (2.8-20.0) L 07/07/22 03:38 Urine Opiates Screen Presumptive negative 07/07/22 03:17 Urine Methadone Screen Presumptive negative 07/07/22 03:17 Acetaminophen 5.0 ug/mL (10.0-30.0) L 07/07/22 03:38 Ur Barbiturates Screen Presumptive negative 07/07/22 03:17 Valproic Acid 7.0 ug/mL (50-100) L 07/07/22 03:38 Ur Phencyclidine Scrn Presumptive negative 07/07/22 03:17 Ur Amphetamines Screen Presumptive negative 07/07/22 03:17 U Benzodiazepines Scrn Presumptive negative 07/07/22 03:17 Urine Cocaine Screen Presumptive negative 07/07/22 03:17 U Marijuana (THC) Screen Presumptive negative 07/07/22 03:17 Drugs of Abuse Note Disclamer 07/07/22 03:17 Plasma/Serum Alcohol < 0.01 % (0-0.07) 07/07/22 03:38 SARS-CoV-2 (PCR) Positive (Negative) A 07/07/22 15:00 [place]bin/IV: Voiding Method External Female Catheter Active Medications - Current Medications Current Medications: Generic Name Dose Route Start Last Admin Trade Name Freq PRN Reason Stop Dose Admin Acetaminophen 650 mg 07/13/22 12:00 Acetaminophen 325 Mg/10.15 Ml Oral Liqd Unit Dose FEEDTUBE Q6H PRN Pain MILD(1-3)/Fever >100.5/LEE Atorvastatin Calcium 80 mg 07/10/22 22:00 07/14/22 22:05 Atorvastatin 40 Mg Tab FEEDTUBE 80 mg QHS ERROL Administration Cholecalciferol 1,000 unit 07/10/22 10:00 07/14/22 10:09 Cholecalciferol (Vit D3) 1000 Unit (25 Mcg) Tab FEEDTUBE 1,000 unit QDAY ERROL Administration Dexamethasone 6 mg 07/08/22 10:00 07/14/22 10:09 Dexamethasone 4 Mg/Ml Vial IV 07/17/22 10:01 6 mg Q24HR ERROL Administration Dextrose 50 ml 07/09/22 11:42 Dextrose 50% In Water (25gm) 50 Ml Syringe IV Q30MIN PRN Hypoglycemia Protocol Famotidine 20 mg 07/09/22 22:00 07/14/22 22:05 Famotidine 20 Mg Tab FEEDTUBE 20 mg BID ERROL Administration Heparin Sodium (Porcine) 5,000 unit 07/08/22 06:00 07/15/22 06:07 Heparin 5,000 Unit/1 Ml Vial SUB-Q 5,000 unit Q12H ERROL Administration Hydrophilic Ointment 1 applic 07/07/22 02:48 Lip Therapy Vaseline TP Q2HR PRN Dry Lips Insulin Human Lispro 0 unit 07/09/22 12:00 07/15/22 06:00 Insulin Lispro 100 Unit/Ml SUB-Q Not Given Q6HR ERROL Protocol Levothyroxine Sodium 75 mcg 07/11/22 06:00 07/15/22 06:07 Levothyroxine 75 Mcg Tab FEEDTUBE 75 mcg QAM@0600 ERROL Administration Multi-Ingred Cream/Lotion/Oil/Oint 1 applic 07/07/22 02:48 Mineral Oil/Petrolatum, White Ophth Oint 3.5 Gm OU Q4HR PRN Dry Eye(s) Senna/Docusate Sodium 1 tab 07/07/22 10:00 07/14/22 22:05 Sennosides/Docusate Sodium 8.6/50 Mg Tab FEEDTUBE 1 tab BID ERROL Administration Sodium Chloride 10 ml 07/07/22 13:00 07/14/22 22:05 Sodium Chloride 0.9% 10 Ml Flush Syringe IV 10 ml BID ERROL Administration Sodium Chloride 10 ml 07/07/22 12:09 Sodium Chloride 0.9% 10 Ml Flush Syringe IV PRN PRN LINE FLUSH Valproic Acid 250 mg 07/10/22 22:00 07/14/22 22:05 Valproic Acid 250 Mg/5 Ml Oral Liqd FEEDTUBE 250 mg Q12H ERROL Administration Nutrition/Malnutrition Assess - Dietary Evaluation Nutrition/Malnutrition Findings: Nutrition Notes Start: 07/07/22 13:24 Freq: Status: Active Protocol: Document 07/12/22 15:47 CARI (Rec: 07/12/22 15:56 CARI [id number]) Nutrition Notes Initial or Follow up Brief Note Current Diet TF - Vital AF 1.2 at 55ml/hr Labs/Tests BG 163 Na 143 K 3.9 Pertinent Medications Reviewed Height 5 ft 6 in Weight 95.254 kg [place] Body Weight (kg) 59.09 BMI 33.9 Subjective/Other Information Pt remains on vent support. Observed TF infusing at 45ml/ hr (15:10). Percent of energy/protein needs met: 74% energy 82% pro Burn Absent Trauma Absent #1 Nutrition Diagnosis Inadequate oral intake Diagnosis Progress(for reassessment Continues documentation) Is patient on ventilator? Yes Is Patient Ambulatory and/or Out of Bed No REE-([facility]-confined to bed) [phone] Kcal/Kg value to use for calculation 15 Approximate Energy Requirements Using 1429 kcal/Kg Calculation Used for Recommendations Kcal/kg Additional Notes Pro needs 1.3g/kg adjBW: 99g/ day Fluid needs 1ml/kcal Nutrition Intervention Nutrition Support: Decrease TF goal rate to 50ml/ hr with 75ml/hr q4h. Kcal 1,440 Protein (gm) 90 Fluid (mL) 973 Goal #1 TF tolerance Goal #2 TF to meet 70-80% energy and at least 75% pro needs Follow-Up By: 07/17/22 Additional Comments F/U: TF goal rate/tolerance, vent status, wt
--- NOTE | 2022-07-14 12:27 | Progress Note ---
Assessment and Plan Assessment and Plan 76 y/o female with acute respiratory failure secondary to altered mental status, most likely from electrolyte abnormalities seen on chemistry, found to be COVID positive. 07/14/2022: No significant change barely responds to verbal stimulation. Remain orally intubated. Did well on CPAP/PSV with adequate blood gases. Now back on PRVC. Probably extubate able once more awake. 07/13/2022: On CPAP/PSV. Tidal volume around 500 mL minute ventilation is less than 5 L respiratory rate is 8/min. We will check arterial blood gases. Still remain somewhat unresponsive does not follow commands. Not a candidate for extubation yet 07/12/22: Negative MRI for acute infarct. Na is normal. Continue to monitor. Daily PSV trials. Has been intubated now for 5 days. 07/11/22: for MRI today. Appreciate renal help, agree with signing off. Attempt daily PSV. Guarded prognosis. 07/10: follow up MRI. Get official EEG read but no status. Continue daily PSV trials. Guarded prognosis 07/09/22: Continue supportive measures. Continue to fix Na, if no improvement in mental state with normal sodium then will pursue MRI. Picc placed today. 07/08/22: No further sedation. 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 Consider neurology consult and may need to obtain MRI. Attempt PSV trials today. needs Picc line placed for assistant terminal manager access as patient is a difficult stick. Feed patient and monitor lytes. 1. Discontinue sedation 2. Wean FiO2 for sats >88% and PaO2 greater than 60 3. AGree with fluid resuscitation, patient needs free water 4. Will follow up with family to find out exactly what patient mental status was a facility CCT 31 minutes. Subjective Date of service: 07/14/22 Principal diagnosis: Hypernatremia Interval history: No significant change. Orally intubated. Open eyes but otherwise unresponsive. Does not follow commands, barely responds to verbal stimulation. Back on PRVC seems to have tolerated CPAP reasonably well with adequate blood gases yesterday. Objective Vital Signs - 12hr 07/14/22 07/14/22 07/14/22 01:00 02:00 03:00 Temperature Pulse Rate 80 88 93 H Pulse Rate [ From Monitor] Respiratory 12 12 13 Rate Blood Pressure 100/47 100/47 117/58 O2 Sat by Pulse 99 99 99 Oximetry 07/14/22 07/14/22 07/14/22 04:00 04:13 05:00 Temperature 98 F Pulse Rate 92 H 85 86 Pulse Rate [ 92 H From Monitor] Respiratory 12 13 Rate Blood Pressure 126/54 117/58 116/56 O2 Sat by Pulse 99 99 99 Oximetry 07/14/22 07/14/22 07/14/22 06:00 07:00 07:14 Temperature 97.9 F Pulse Rate 95 H 89 Pulse Rate [ From Monitor] Respiratory 11 L 13 Rate Blood Pressure 105/60 108/60 O2 Sat by Pulse 99 99 Oximetry 07/14/22 07/14/22 07/14/22 08:00 08:09 08:45 Temperature Pulse Rate 75 73 90 Pulse Rate [ 73 From Monitor] Respiratory 12 12 10 L Rate Blood Pressure 93/51 93/51 O2 Sat by Pulse 99 99 100 Oximetry 07/14/22 07/14/22 07/14/22 09:00 10:00 11:00 Temperature Pulse Rate 92 H 83 82 Pulse Rate [ From Monitor] Respiratory 11 L 9 L 10 L Rate Blood Pressure 106/89 97/61 114/57 O2 Sat by Pulse 99 98 99 Oximetry 07/14/22 07/14/22 11:49 12:12 Temperature 98.4 F Pulse Rate 85 Pulse Rate [ From Monitor] Respiratory Rate Blood Pressure 114/57 O2 Sat by Pulse 98 Oximetry Constitutional: comatose ENT: other (orally intubated) Neck: supple Effort: normal Ascultation: Bilateral: clear Percussion: Bilateral: not dull Cardiovascular: regular rate and rhythm Gastrointestinal: normoactive bowel sounds, soft Extremities: no cyanosis, no edema Neurologic: unable to assess CBC and BMP: 07/13/22 04:00 07/13/22 04:10 ABG, PT/INR, D-dimer: ABG ABG pH 7.465 pH Units (7.350-7.450) H 07/13/22 Unknown ABG pCO2 41.3 mm Hg 07/13/22 Unknown ABG pO2 128.8 mm Hg (80.0-90.0) H 07/13/22 Unknown ABG O2 Saturation 98.6 % (95.0-99.0) 07/13/22 Unknown PT/INR, D-dimer PT 15.0 Sec. (12.2-14.9) H 07/07/22 03:38 INR 1.06 (0.87-1.13) 07/07/22 03:38 D-Dimer 925.80 ng/mlDDU (0-234) H 07/12/22 04:00 Abnormal lab findings: Abnormal Labs 07/07/22 07/07/22 07/07/22 03:17 03:38 03:38 WBC RBC 5.43 H Hgb 18.2 H Hct 54.9 H MCV 101 H MCH 34 H Plt Count 104 L Seg Neutrophils % Seg Neutrophils # PT 15.0 H APTT 23.0 L D-Dimer ABG pH ABG pO2 ABG HCO3 ABG O2 Saturation ABG Base Excess ABG Hemoglobin Oxyhemoglobin Sodium Potassium Chloride Carbon Dioxide BUN Creatinine Glucose POC Glucose Lactic Acid Uric Acid Calcium Magnesium Ferritin Total Bilirubin AST Lactate Dehydrogenase Total Creatine Kinase C-Reactive Protein Total Protein Albumin TSH Urine WBC (Auto) 7.0 H Urine Creatinine Salicylates Acetaminophen Valproic Acid SARS-CoV-2 (PCR) 07/07/22 07/07/22 07/07/22 03:38 03:38 03:38 WBC RBC Hgb Hct MCV MCH Plt Count Seg Neutrophils % Seg Neutrophils # PT APTT D-Dimer ABG pH ABG pO2 ABG HCO3 ABG O2 Saturation ABG Base Excess ABG Hemoglobin Oxyhemoglobin Sodium Potassium Chloride Carbon Dioxide BUN Creatinine Glucose POC Glucose Lactic Acid Uric Acid Calcium Magnesium 3.30 H Ferritin Total Bilirubin AST Lactate Dehydrogenase Total Creatine Kinase 1826 H C-Reactive Protein Total Protein Albumin TSH Urine WBC (Auto) Urine Creatinine Salicylates < 0.3 L Acetaminophen 5.0 L Valproic Acid 7.0 L SARS-CoV-2 (PCR) 07/07/22 07/07/22 07/07/22 04:17 04:17 04:17 WBC RBC Hgb Hct MCV MCH Plt Count Seg Neutrophils % Seg Neutrophils # PT APTT D-Dimer ABG pH ABG pO2 ABG HCO3 ABG O2 Saturation ABG Base Excess ABG Hemoglobin Oxyhemoglobin Sodium 168 H* Potassium 3.2 L Chloride 122.2 H Carbon Dioxide BUN 52 H Creatinine Glucose 158 H POC Glucose Lactic Acid 3.50 H* Uric Acid Calcium 10.9 H Magnesium Ferritin Total Bilirubin 1.40 H AST 47 H Lactate Dehydrogenase Total Creatine Kinase C-Reactive Protein Total Protein Albumin TSH 12.790 H Urine WBC (Auto) Urine Creatinine Salicylates Acetaminophen Valproic Acid SARS-CoV-2 (PCR) 07/07/22 07/07/22 07/07/22 04:17 07:43 09:35 WBC RBC Hgb Hct MCV MCH Plt Count Seg Neutrophils % Seg Neutrophils # PT APTT D-Dimer ABG pH ABG pO2 377.3 H ABG HCO3 ABG O2 Saturation 99.6 H ABG Base Excess -2.5 L ABG Hemoglobin Oxyhemoglobin Sodium Potassium Chloride Carbon Dioxide BUN Creatinine Glucose POC Glucose Lactic Acid 6.30 H* Uric Acid 13.5 H Calcium Magnesium Ferritin Total Bilirubin AST Lactate Dehydrogenase Total Creatine Kinase C-Reactive Protein Total Protein Albumin TSH Urine WBC (Auto) Urine Creatinine Salicylates Acetaminophen Valproic Acid SARS-CoV-2 (PCR) 07/07/22 07/07/22 07/07/22 15:00 16:00 16:00 WBC RBC Hgb Hct MCV MCH Plt Count Seg Neutrophils % Seg Neutrophils # PT APTT D-Dimer ABG pH ABG pO2 ABG HCO3 ABG O2 Saturation ABG Base Excess ABG Hemoglobin Oxyhemoglobin Sodium 166 H* Potassium Chloride 124.8 H Carbon Dioxide 20 L BUN 41 H Creatinine Glucose 157 H POC Glucose Lactic Acid 7.00 H* Uric Acid Calcium Magnesium Ferritin Total Bilirubin AST 81 H Lactate Dehydrogenase Total Creatine Kinase C-Reactive Protein Total Protein Albumin TSH Urine WBC (Auto) Urine Creatinine Salicylates Acetaminophen Valproic Acid SARS-CoV-2 (PCR) Positive A 07/07/22 07/07/22 07/07/22 16:45 23:42 23:42 WBC RBC Hgb Hct MCV MCH Plt Count Seg Neutrophils % Seg Neutrophils # PT APTT D-Dimer ABG pH ABG pO2 ABG HCO3 ABG O2 Saturation ABG Base Excess ABG Hemoglobin Oxyhemoglobin Sodium 165 H* Potassium 3.0 L Chloride 122.8 H Carbon Dioxide BUN 38 H Creatinine Glucose 232 H POC Glucose Lactic Acid 5.60 H* Uric Acid Calcium Magnesium Ferritin Total Bilirubin AST Lactate Dehydrogenase Total Creatine Kinase C-Reactive Protein Total Protein Albumin TSH Urine WBC (Auto) Urine Creatinine 92.9 H Salicylates Acetaminophen Valproic Acid SARS-CoV-2 (PCR) 07/07/22 07/07/22 07/08/22 Unknown Unknown 05:30 WBC RBC Hgb Hct MCV MCH Plt Count Seg Neutrophils % Seg Neutrophils # PT APTT D-Dimer ABG pH 7.553 H 7.473 H ABG pO2 61.7 L 121.7 H ABG HCO3 ABG O2 Saturation 94.7 L ABG Base Excess 4.3 H ABG Hemoglobin 18.0 H Oxyhemoglobin 93.1 L Sodium 163 H* Potassium 6.3 H* D Chloride 123.7 H Carbon Dioxide BUN 42 H Creatinine Glucose 169 H POC Glucose Lactic Acid Uric Acid Calcium Magnesium Ferritin Total Bilirubin AST Lactate Dehydrogenase Total Creatine Kinase C-Reactive Protein Total Protein Albumin TSH Urine WBC (Auto) Urine Creatinine Salicylates Acetaminophen Valproic Acid SARS-CoV-2 (PCR) 07/08/22 07/08/22 07/08/22 05:36 11:21 14:54 WBC 11.1 H RBC Hgb Hct MCV 101 H MCH 33 H Plt Count 69 L Seg Neutrophils % 82.0 H Seg Neutrophils # 9.1 H PT APTT D-Dimer ABG pH ABG pO2 ABG HCO3 ABG O2 Saturation ABG Base Excess ABG Hemoglobin Oxyhemoglobin Sodium Potassium Chloride Carbon Dioxide BUN Creatinine Glucose POC Glucose 174 H 148 H Lactic Acid Uric Acid Calcium Magnesium Ferritin Total Bilirubin AST Lactate Dehydrogenase Total Creatine Kinase C-Reactive Protein Total Protein Albumin TSH Urine WBC (Auto) Urine Creatinine Salicylates Acetaminophen Valproic Acid SARS-CoV-2 (PCR) 07/08/22 07/08/22 07/08/22 14:54 14:54 14:54 WBC RBC Hgb Hct MCV MCH Plt Count Seg Neutrophils % Seg Neutrophils # PT APTT D-Dimer ABG pH ABG pO2 ABG HCO3 ABG O2 Saturation ABG Base Excess ABG Hemoglobin Oxyhemoglobin Sodium 163 H* Potassium 2.9 L* Chloride 123.7 H Carbon Dioxide BUN 30 H Creatinine Glucose 161 H POC Glucose Lactic Acid 6.10 H* Uric Acid Calcium Magnesium Ferritin Total Bilirubin AST 69 H Lactate Dehydrogenase Total Creatine Kinase 2335 H C-Reactive Protein Total Protein 5.6 L D Albumin 3.1 L TSH Urine WBC (Auto) Urine Creatinine Salicylates Acetaminophen Valproic Acid SARS-CoV-2 (PCR) 07/08/22 07/08/22 07/08/22 14:54 14:54 14:54 WBC RBC Hgb Hct MCV MCH Plt Count Seg Neutrophils % Seg Neutrophils # PT APTT D-Dimer 499.72 H ABG pH ABG pO2 ABG HCO3 ABG O2 Saturation ABG Base Excess ABG Hemoglobin Oxyhemoglobin Sodium Potassium Chloride Carbon Dioxide BUN Creatinine Glucose POC Glucose Lactic Acid Uric Acid Calcium Magnesium Ferritin 722.1 H Total Bilirubin AST Lactate Dehydrogenase 455 H Total Creatine Kinase C-Reactive Protein 1.60 H Total Protein Albumin TSH Urine WBC (Auto) Urine Creatinine Salicylates Acetaminophen Valproic Acid SARS-CoV-2 (PCR) 07/08/22 07/08/22 07/09/22 19:13 19:53 00:09 WBC RBC Hgb Hct MCV MCH Plt Count Seg Neutrophils % Seg Neutrophils # PT APTT D-Dimer ABG pH ABG pO2 ABG HCO3 ABG O2 Saturation ABG Base Excess ABG Hemoglobin Oxyhemoglobin Sodium 160 H Potassium 3.5 L D Chloride 122.0 H Carbon Dioxide 20 L BUN 28 H Creatinine Glucose 151 H POC Glucose 138 H Lactic Acid 5.70 H* Uric Acid Calcium Magnesium Ferritin Total Bilirubin AST Lactate Dehydrogenase Total Creatine Kinase C-Reactive Protein Total Protein Albumin TSH Urine WBC (Auto) Urine Creatinine Salicylates Acetaminophen Valproic Acid SARS-CoV-2 (PCR) 07/09/22 07/09/22 07/09/22 00:45 03:21 03:21 WBC RBC Hgb Hct MCV MCH Plt Count Seg Neutrophils % Seg Neutrophils # PT APTT D-Dimer ABG pH ABG pO2 ABG HCO3 ABG O2 Saturation ABG Base Excess ABG Hemoglobin Oxyhemoglobin Sodium 158 H 157 H Potassium Chloride 124.2 H 125.0 H Carbon Dioxide 20 L 20 L BUN 25 H 24 H Creatinine Glucose 147 H 169 H POC Glucose Lactic Acid 4.70 H* Uric Acid Calcium Magnesium Ferritin Total Bilirubin AST 81 H Lactate Dehydrogenase Total Creatine Kinase C-Reactive Protein Total Protein 5.7 L Albumin 2.8 L TSH Urine WBC (Auto) Urine Creatinine Salicylates Acetaminophen Valproic Acid SARS-CoV-2 (PCR) 07/09/22 07/09/22 07/09/22 04:40 05:35 08:14 WBC RBC Hgb Hct MCV 102 H MCH 33 H Plt Count 74 L Seg Neutrophils % Seg Neutrophils # PT APTT D-Dimer ABG pH ABG pO2 172.1 H ABG HCO3 ABG O2 Saturation 99.1 H ABG Base Excess -2.8 L ABG Hemoglobin Oxyhemoglobin Sodium Potassium Chloride Carbon Dioxide BUN Creatinine Glucose POC Glucose 108 H Lactic Acid Uric Acid Calcium Magnesium Ferritin Total Bilirubin AST Lactate Dehydrogenase Total Creatine Kinase C-Reactive Protein Total Protein Albumin TSH Urine WBC (Auto) Urine Creatinine Salicylates Acetaminophen Valproic Acid SARS-CoV-2 (PCR) 07/09/22 07/09/22 07/09/22 11:16 11:27 16:20 WBC RBC Hgb Hct MCV MCH Plt Count Seg Neutrophils % Seg Neutrophils # PT APTT D-Dimer ABG pH ABG pO2 ABG HCO3 ABG O2 Saturation ABG Base Excess ABG Hemoglobin Oxyhemoglobin Sodium 155 H Potassium Chloride 121.3 H Carbon Dioxide BUN 21 H Creatinine Glucose 170 H POC Glucose 173 H 190 H Lactic Acid Uric Acid Calcium Magnesium Ferritin Total Bilirubin AST Lactate Dehydrogenase Total Creatine Kinase C-Reactive Protein Total Protein Albumin TSH Urine WBC (Auto) Urine Creatinine Salicylates Acetaminophen Valproic Acid SARS-CoV-2 (PCR) 07/09/22 07/10/22 07/10/22 17:16 00:04 04:21 WBC RBC Hgb Hct MCV MCH Plt Count Seg Neutrophils % Seg Neutrophils # PT APTT D-Dimer ABG pH ABG pO2 ABG HCO3 ABG O2 Saturation ABG Base Excess ABG Hemoglobin Oxyhemoglobin Sodium 149 H 150 H Potassium Chloride 115.6 H 115.0 H Carbon Dioxide BUN 18 H Creatinine 0.5 L Glucose 207 H 178 H POC Glucose 180 H Lactic Acid Uric Acid Calcium 7.9 L Magnesium Ferritin Total Bilirubin AST 89 H Lactate Dehydrogenase 431 H Total Creatine Kinase C-Reactive Protein Total Protein 4.9 L Albumin 2.5 L TSH Urine WBC (Auto) Urine Creatinine Salicylates Acetaminophen Valproic Acid SARS-CoV-2 (PCR) 07/10/22 07/10/22 07/10/22 04:21 04:21 04:21 WBC 11.8 H RBC 3.52 L Hgb Hct MCV 99 H MCH 33 H Plt Count 67 L Seg Neutrophils % Seg Neutrophils # PT APTT D-Dimer 585.71 H ABG pH ABG pO2 ABG HCO3 ABG O2 Saturation ABG Base Excess ABG Hemoglobin Oxyhemoglobin Sodium Potassium Chloride Carbon Dioxide BUN Creatinine Glucose POC Glucose Lactic Acid Uric Acid Calcium Magnesium Ferritin 631.3 H Total Bilirubin AST Lactate Dehydrogenase Total Creatine Kinase C-Reactive Protein Total Protein Albumin TSH Urine WBC (Auto) Urine Creatinine Salicylates Acetaminophen Valproic Acid SARS-CoV-2 (PCR) 07/10/22 07/10/22 07/10/22 04:21 04:55 05:26 WBC RBC Hgb Hct MCV MCH Plt Count Seg Neutrophils % Seg Neutrophils # PT APTT D-Dimer ABG pH ABG pO2 76.8 L ABG HCO3 ABG O2 Saturation ABG Base Excess ABG Hemoglobin 10.4 L Oxyhemoglobin 94.5 L Sodium Potassium Chloride Carbon Dioxide BUN Creatinine Glucose POC Glucose 147 H Lactic Acid 2.50 H* Uric Acid Calcium Magnesium Ferritin Total Bilirubin AST Lactate Dehydrogenase Total Creatine Kinase C-Reactive Protein Total Protein Albumin TSH Urine WBC (Auto) Urine Creatinine Salicylates Acetaminophen Valproic Acid SARS-CoV-2 (PCR) 07/10/22 07/10/22 07/10/22 08:24 11:31 12:53 WBC RBC Hgb Hct MCV MCH Plt Count Seg Neutrophils % Seg Neutrophils # PT APTT D-Dimer ABG pH ABG pO2 ABG HCO3 ABG O2 Saturation ABG Base Excess ABG Hemoglobin Oxyhemoglobin Sodium Potassium Chloride 110.9 H Carbon Dioxide BUN Creatinine 0.5 L Glucose 200 H POC Glucose 166 H Lactic Acid 2.10 H* Uric Acid Calcium 8.3 L Magnesium Ferritin Total Bilirubin AST Lactate Dehydrogenase Total Creatine Kinase C-Reactive Protein Total Protein Albumin TSH Urine WBC (Auto) Urine Creatinine Salicylates Acetaminophen Valproic Acid SARS-CoV-2 (PCR) 07/10/22 07/10/22 07/10/22 17:37 18:53 23:30 WBC RBC Hgb Hct MCV MCH Plt Count Seg Neutrophils % Seg Neutrophils # PT APTT D-Dimer ABG pH ABG pO2 ABG HCO3 ABG O2 Saturation ABG Base Excess ABG Hemoglobin Oxyhemoglobin Sodium Potassium Chloride 109.5 H 110.2 H Carbon Dioxide BUN Creatinine 0.5 L 0.5 L Glucose 243 H 208 H POC Glucose 237 H Lactic Acid Uric Acid Calcium 8.1 L 8.1 L Magnesium Ferritin Total Bilirubin AST Lactate Dehydrogenase Total Creatine Kinase C-Reactive Protein Total Protein Albumin TSH Urine WBC (Auto) Urine Creatinine Salicylates Acetaminophen Valproic Acid SARS-CoV-2 (PCR) 07/10/22 07/11/22 07/11/22 23:57 04:00 04:15 WBC 11.2 H RBC Hgb Hct MCV 99 H MCH Plt Count 73 L Seg Neutrophils % Seg Neutrophils # PT APTT D-Dimer ABG pH ABG pO2 107.4 H ABG HCO3 ABG O2 Saturation ABG Base Excess ABG Hemoglobin Oxyhemoglobin Sodium Potassium Chloride Carbon Dioxide BUN Creatinine Glucose POC Glucose 195 H Lactic Acid Uric Acid Calcium Magnesium Ferritin Total Bilirubin AST Lactate Dehydrogenase Total Creatine Kinase C-Reactive Protein Total Protein Albumin TSH Urine WBC (Auto) Urine Creatinine Salicylates Acetaminophen Valproic Acid SARS-CoV-2 (PCR) 07/11/22 07/11/22 07/11/22 05:40 05:40 06:06 WBC RBC Hgb Hct MCV MCH Plt Count Seg Neutrophils % Seg Neutrophils # PT APTT D-Dimer ABG pH ABG pO2 ABG HCO3 ABG O2 Saturation ABG Base Excess ABG Hemoglobin Oxyhemoglobin Sodium Potassium Chloride 109.8 H Carbon Dioxide BUN Creatinine 0.5 L Glucose 160 H POC Glucose 145 H Lactic Acid Uric Acid Calcium 8.3 L Magnesium Ferritin Total Bilirubin AST Lactate Dehydrogenase Total Creatine Kinase 1745 H C-Reactive Protein Total Protein Albumin TSH Urine WBC (Auto) Urine Creatinine Salicylates Acetaminophen Valproic Acid SARS-CoV-2 (PCR) 07/11/22 07/11/22 07/11/22 11:55 11:59 17:44 WBC RBC Hgb Hct MCV MCH Plt Count Seg Neutrophils % Seg Neutrophils # PT APTT D-Dimer ABG pH ABG pO2 ABG HCO3 ABG O2 Saturation ABG Base Excess ABG Hemoglobin Oxyhemoglobin Sodium Potassium Chloride 107.8 H Carbon Dioxide BUN Creatinine 0.5 L Glucose 150 H POC Glucose 150 H 182 H Lactic Acid Uric Acid Calcium 8.2 L Magnesium Ferritin Total Bilirubin AST Lactate Dehydrogenase Total Creatine Kinase C-Reactive Protein Total Protein Albumin TSH Urine WBC (Auto) Urine Creatinine Salicylates Acetaminophen Valproic Acid SARS-CoV-2 (PCR) 07/11/22 07/12/22 07/12/22 17:50 00:10 00:12 WBC RBC Hgb Hct MCV MCH Plt Count Seg Neutrophils % Seg Neutrophils # PT APTT D-Dimer ABG pH ABG pO2 ABG HCO3 ABG O2 Saturation ABG Base Excess ABG Hemoglobin Oxyhemoglobin Sodium Potassium Chloride 108.4 H Carbon Dioxide BUN Creatinine 0.5 L 0.4 L Glucose 191 H 163 H POC Glucose 154 H Lactic Acid Uric Acid Calcium 8.2 L 7.9 L Magnesium Ferritin Total Bilirubin AST Lactate Dehydrogenase Total Creatine Kinase C-Reactive Protein Total Protein Albumin TSH Urine WBC (Auto) Urine Creatinine Salicylates Acetaminophen Valproic Acid SARS-CoV-2 (PCR) 07/12/22 07/12/22 07/12/22 04:00 04:00 04:00 WBC RBC Hgb Hct MCV MCH Plt Count Seg Neutrophils % Seg Neutrophils # PT APTT D-Dimer 925.80 H ABG pH ABG pO2 ABG HCO3 ABG O2 Saturation ABG Base Excess ABG Hemoglobin Oxyhemoglobin Sodium Potassium Chloride Carbon Dioxide BUN Creatinine Glucose POC Glucose Lactic Acid Uric Acid Calcium Magnesium Ferritin 519.5 H Total Bilirubin AST Lactate Dehydrogenase 444 H Total Creatine Kinase C-Reactive Protein Total Protein Albumin TSH Urine WBC (Auto) Urine Creatinine Salicylates Acetaminophen Valproic Acid SARS-CoV-2 (PCR) 07/12/22 07/12/22 07/12/22 04:00 05:00 05:03 WBC 11.7 H RBC 3.33 L Hgb Hct MCV 99 H MCH 33 H Plt Count 68 L Seg Neutrophils % Seg Neutrophils # PT APTT D-Dimer ABG pH 7.453 H ABG pO2 107.9 H ABG HCO3 27.9 H ABG O2 Saturation ABG Base Excess 3.7 H ABG Hemoglobin 10.9 L Oxyhemoglobin Sodium Potassium Chloride Carbon Dioxide BUN Creatinine Glucose POC Glucose 174 H Lactic Acid Uric Acid Calcium Magnesium Ferritin Total Bilirubin AST Lactate Dehydrogenase Total Creatine Kinase C-Reactive Protein Total Protein Albumin TSH Urine WBC (Auto) Urine Creatinine Salicylates Acetaminophen Valproic Acid SARS-CoV-2 (PCR) 07/12/22 07/12/22 07/12/22 12:15 17:18 23:14 WBC RBC Hgb Hct MCV MCH Plt Count Seg Neutrophils % Seg Neutrophils # PT APTT D-Dimer ABG pH ABG pO2 ABG HCO3 ABG O2 Saturation ABG Base Excess ABG Hemoglobin Oxyhemoglobin Sodium Potassium Chloride Carbon Dioxide BUN Creatinine Glucose POC Glucose 154 H 154 H 167 H Lactic Acid Uric Acid Calcium Magnesium Ferritin Total Bilirubin AST Lactate Dehydrogenase Total Creatine Kinase C-Reactive Protein Total Protein Albumin TSH Urine WBC (Auto) Urine Creatinine Salicylates Acetaminophen Valproic Acid SARS-CoV-2 (PCR) 07/13/22 07/13/22 07/13/22 04:00 04:10 05:14 WBC RBC 3.17 L Hgb Hct MCV 98 H MCH 34 H Plt Count 75 L Seg Neutrophils % Seg Neutrophils # PT APTT D-Dimer ABG pH ABG pO2 ABG HCO3 ABG O2 Saturation ABG Base Excess ABG Hemoglobin Oxyhemoglobin Sodium Potassium Chloride Carbon Dioxide BUN Creatinine 0.4 L Glucose 136 H POC Glucose 140 H Lactic Acid Uric Acid Calcium Magnesium Ferritin Total Bilirubin AST Lactate Dehydrogenase Total Creatine Kinase C-Reactive Protein Total Protein Albumin TSH Urine WBC (Auto) Urine Creatinine Salicylates Acetaminophen Valproic Acid SARS-CoV-2 (PCR) 07/13/22 07/13/22 07/13/22 12:03 14:25 17:19 WBC RBC Hgb Hct MCV MCH Plt Count Seg Neutrophils % Seg Neutrophils # PT APTT D-Dimer ABG pH 7.478 H ABG pO2 118.1 H ABG HCO3 28.2 H ABG O2 Saturation ABG Base Excess 4.5 H ABG Hemoglobin Oxyhemoglobin Sodium Potassium Chloride Carbon Dioxide BUN Creatinine Glucose POC Glucose 193 H 189 H Lactic Acid Uric Acid Calcium Magnesium Ferritin Total Bilirubin AST Lactate Dehydrogenase Total Creatine Kinase C-Reactive Protein Total Protein Albumin TSH Urine WBC (Auto) Urine Creatinine Salicylates Acetaminophen Valproic Acid SARS-CoV-2 (PCR) 07/13/22 07/13/22 07/14/22 23:52 Unknown 06:18 WBC RBC Hgb Hct MCV MCH Plt Count Seg Neutrophils % Seg Neutrophils # PT APTT D-Dimer ABG pH 7.465 H ABG pO2 128.8 H ABG HCO3 29.0 H ABG O2 Saturation ABG Base Excess 4.9 H ABG Hemoglobin 10.3 L Oxyhemoglobin Sodium Potassium Chloride Carbon Dioxide BUN Creatinine Glucose POC Glucose 174 H 167 H Lactic Acid Uric Acid Calcium Magnesium Ferritin Total Bilirubin AST Lactate Dehydrogenase Total Creatine Kinase C-Reactive Protein Total Protein Albumin TSH Urine WBC (Auto) Urine Creatinine Salicylates Acetaminophen Valproic Acid SARS-CoV-2 (PCR) Chest x-ray: image reviewed (Clear chest x-ray with ET tube in right position)
[2022-07-15] MEDS: INSULIN LISPRO 100 UNIT/ML SUB-Q SCH ×4 (00:30→17:10)
[2022-07-15 04:30] LABS: Hematocrit 30.7 % (30.3-42.9); Hemoglobin 10.3 gm/dl (10.1-14.3); Mean Corpuscular HGB Conc 34 % (30-34); Mean Corpuscular Volume 98 fl (79-97); Red Blood Count 3.13 M/mm3 (3.65-5.03); Red Cell Distribution Width 14.7 % (13.2-15.2)
[2022-07-15 04:39] LABS: Platelet Count 98 K/mm3 (140-440)
[2022-07-15 04:52] LABS: Blood Urea Nitrogen 17 mg/dL (7-17); Calcium 8.8 mg/dL (8.4-10.2); Hemolysis Index 3
[2022-07-15 04:53] LABS: BUN/Creatinine Ratio 43
[2022-07-15] MEDS: HEPARIN 5,000 UNIT/1 ML VIAL SUB-Q SCH ×2 (06:07→17:08)
[2022-07-15] MEDS: LEVOTHYROXINE 75 MCG TAB FEEDTUBE SCH (06:07)
[2022-07-15] MEDS: SENNOSIDES/DOCUSATE SODIUM 8.6/50 MG TAB FEEDTUBE SCH ×2 (09:23→22:30)
[2022-07-15] MEDS: FAMOTIDINE 20 MG TAB FEEDTUBE SCH ×2 (09:23→22:30)
[2022-07-15] MEDS: CHOLECALCIFEROL (VIT D3) 1000 UNIT (25 mcg) TAB FEEDTUBE SCH (09:23)
[2022-07-15] MEDS: dexAMETHasone 4 MG/ML VIAL IV SCH (09:24)
[2022-07-15] MEDS: VALPROIC ACID 250 MG/5 ML ORAL LIQD FEEDTUBE SCH ×2 (09:25→22:30)
--- NOTE | 2022-07-15 11:25 | Progress Note ---
<GEORGE DAVIS - Last Filed: 07/15/22 17:56> Assessment and Plan Assessment and plan: This is a 76-year-old female with CVA, pulmonary embolism, hypothyroidism and JUJU admitted with electrolyte imbalances, hypoxic respiratory failure and COVID- 19 pneumonia Hospital Course to Date: 07/08: Patient noted to be COVID-positive, started on remdesivir, Decadron, ceftriaxone azithromycin and infectious disease was consulted yesterday. This morning patient is on any sedation, PICC line to be placed. RT to attempt PSV. Started on free water flushes and tube feedings. Continues on D5 half-normal saline. 07/09: Patient remains encephalopathic, not on any sedation. Hypernatremia is improving, on FWF Q4hrs and D5w gtt per Nephro. If hypernatremia continue to improve and patient's mentation is unchanged, will get a repeat CT to r/o intracranial abnormalities. Patient remains afebrile, leukocytosis improved, and VSS. Continue current IV abx per ID. Patient failed PSV trial again today, trevon nue PSV trial as tolerated 07/10: Remains stable on the vent, tolerating PSV trial this am. sodium continue to improve but no change in mental status. D/w CCM will get MRI brain to r/o any intracranial abnormalities, EEG also ordered to r/o seizures. Continue FWF and D5w gtt per Nephro. Continue IV steroids and current IV abx per ID. 07/11: Hypernatremia resolved, mentation is unchanged, remains on low vent setting. EEG noted, and MRI brain pending. Will consult Neurology for further recommendations. Continue daily PSV trial as tolerated. 07/12: Appears more awake this morning but still not following any commands. MRI brain with no acute findings and sodium normalized. Awaiting Neuro consult. Continue daily PSV trial as tolerated. Patient's daughter was updated via phone, all questions and concerns were addressed at this time. Medical records requested from [facility] and [facility]. 07/13: DELMI overnight. Mentation is unchanged, remains stable on the vent. Neurology consult pending. Continue vent adjustment per CCM and daily PSV trial as tolerated. 07/14: Mentation is unchanged, remains afebrile and stable on the vent, VSS. Complete antibiotics course, still on IV steroids X3 more days. ID recommendations noted, remove corbin. Continue daily PSV trial as tolerated. 07/15: DELMI overnight, mentation unchanged, VSS. Patient failed PSV trial this am due to apnea. Continue daily PSV trial as tolerated. Possible trach and Peg per [facility]. Neuro: Acute metabolic encephalopathy, h/o CVA with hemiplegia, dysphagia, aphasia, dementia -Reorientation as needed -Maintain sleep-wake cycle -Resume home Lipitor -As needed analgesia -CT head shows no acute intracranial hemorrhage, multiple chronic appearing infarcts including left MCA distribution, left cerebral hemisphere and within the right basal ganglia -Depakene -EEG noted -MRI noted -Neurology consult pending Cardiac: h/o HLD -Resume home Lipitor -Blood pressure monitoring per protocol Respiratory: Acute hypoxic respiratory failure, h/o JUJU, pulmonary embolism -[facility] consulted, appreciate recommendations -Intubated on 07/07 with a 7.50 ETT at 24 the lips -A.m. vent settings:PRVC-30%,6,12,400 -See RT notes for titration -A.m. ABG and CXR noted -VAP bundle -SPO2 monitoring GI: NAD -PPI -NTR consulted for tube feedings -BR: Senokot-S : Hypernatremia(resolved), hypokalemia, rhabdomyolysis -Nephrology consulted, appreciate recommendations -Monitor intake and output -Free water flush -BMP every 6 per nephrology -Renally dose medications -Avoid nephrotoxic medications -IVF with KCL, D5 -Replete potassium -Trend BMP ID: COVID Pneumonia, lactic acidosis -Infectious disease consulted, appreciate recommendation -completed IV antibiotics course -Dexamethasone for 10 days, end 07/17 -Contact/droplet precautions -f/u blood culture -Trend COVID-19 inflammatory markers -Monitor WBC and temperature curve -Prophylactic anticoagulation based on D-dimer per hospital protocol Heme: Thrombocytopenia -Patient presented with low plt -Plt continue to trend down, but less than 50% of admit count -No s/s of any active bleeding, H&H stable -Continue to trend CBC -On Heparin SubQ -Transfuse for plt less than 20 and hgb less than 7 Endo: h/o hypothyroidism -Avoid hypoglycemia -SSI -Accu-Cheks q. 6 -Long-acting insulin, titrate as needed -Resume home Synthroid GI/DVT Prophylaxis -PPI- pepcid -Heparin SubQ -SCDs to bilateral lower extremities while in bed The high probability of a clinically significant, sudden or life threatening deterioration of the [multi] system(s) required my full and direct attention, intervention and personal management. The aggregate critical care time was [60] minutes. This time is in addition to time spent performing reported procedures but includes the following: [x] Data Review and interpretation [x] Patient assessment and monitoring of vital signs [x] Documentation [x] Medication orders and management Disposition Plan: ICU Total Time Spent with Patient (Minutes): 60 History Interval history: Patient seen and examined at the bedside. Remains on the vent. Mentation is unchanged. VSS. Patient failed PSV trial this am due to apnea. DELMI overnight Hospitalist Physical - Physical exam Narrative exam: General appearance: Present: other (Intubated, unresponsive, not on any sedations) - EENT Eyes: Present: PERRL - Respiratory Respiratory effort: normal Respiratory: bilateral: rhonchi - Cardiovascular Rhythm: regular Heart Sounds: Present: S1 & S2 - Extremities Extremities: no ischemia, pulses intact, pulses symmetrical Extremity abnormal: edema - Peripheral Assessment Generalized Edema Type: Non-pitting Edema Degree: 2+ Capillary Refill: < 3 seconds Skin Temperature: Warm Peripheral Pulses: within normal limits - Abdominal General gastrointestinal: soft, non-distended, normal bowel sounds - Integumentary Integumentary: Present: warm, dry - Psychiatric Psychiatric: other (Intubated, unresponsive, not on any sedations) - Neurologic Neurologic: other (Intubated, unresponsive, not on any sedations. Open eyes spontaneously, does not track, not following commands, with nonpurposeful movements) - Allied Health Allied health notes reviewed: nursing, case management - Constitutional Vitals: Temp Pulse Resp BP Pulse Ox 98.1 F 79 12 100/58 100 07/15/22 08:00 07/15/22 10:00 07/15/22 10:00 07/15/22 10:00 07/15/22 10:00 HEART Score - HEART Score Troponin: Troponin T 0.010 ng/mL (0.00-0.029) 07/07/22 04:17 Results - Labs CBC & Chem 7: 07/15/22 04:00 07/15/22 04:00 Labs: Laboratory Last Values WBC 11.4 K/mm3 (4.5-11.0) H 07/15/22 04:00 RBC 3.13 M/mm3 (3.65-5.03) L 07/15/22 04:00 Hgb 10.3 gm/dl (10.1-14.3) 07/15/22 04:00 Hct 30.7 % (30.3-42.9) 07/15/22 04:00 MCV 98 fl (79-97) H 07/15/22 04:00 MCH 33 pg (28-32) H 07/15/22 04:00 MCHC 34 % (30-34) 07/15/22 04:00 RDW 14.7 % (13.2-15.2) 07/15/22 04:00 Plt Count 98 K/mm3 (140-440) L 07/15/22 04:00 Lymph % (Auto) 15.2 % (13.4-35.0) 07/08/22 14:54 [place] % (Auto) 2.7 % (0.0-7.3) 07/08/22 14:54 Eos % (Auto) 0.0 % (0.0-4.3) 07/08/22 14:54 Baso % (Auto) 0.1 % (0.0-1.8) 07/08/22 14:54 Lymph # (Auto) 1.7 K/mm3 (1.2-5.4) 07/08/22 14:54 [place] # (Auto) 0.3 K/mm3 (0.0-0.8) 07/08/22 14:54 Eos # (Auto) 0.0 K/mm3 (0.0-0.4) 07/08/22 14:54 Baso # (Auto) 0.0 K/mm3 (0.0-0.1) 07/08/22 14:54 Seg Neutrophils % 82.0 % (40.0-70.0) H 07/08/22 14:54 Seg Neutrophils # 9.1 K/mm3 (1.8-7.7) H 07/08/22 14:54 PT 15.0 Sec. (12.2-14.9) H 07/07/22 03:38 INR 1.06 (0.87-1.13) 07/07/22 03:38 APTT 23.0 Sec. (24.2-36.6) L 07/07/22 03:38 D-Dimer 925.80 ng/mlDDU (0-234) H 07/12/22 04:00 ABG pH 7.465 pH Units (7.350-7.450) H 07/13/22 Unknown ABG pCO2 41.3 mm Hg 07/13/22 Unknown ABG pO2 128.8 mm Hg (80.0-90.0) H 07/13/22 Unknown ABG HCO3 29.0 mmol/L (20.0-26.0) H 07/13/22 Unknown ABG O2 Saturation 98.6 % (95.0-99.0) 07/13/22 Unknown ABG O2 Content 14.3 (0.0-44) 07/13/22 Unknown ABG Base Excess 4.9 mmol/L (-2.0-3.0) H 07/13/22 Unknown ABG Hemoglobin 10.3 gm/dl (12.0-16.0) L 07/13/22 Unknown ABG Carboxyhemoglobin 0.9 % (0.0-5.0) 07/13/22 Unknown ABG Methemoglobin 0.7 % (0.0-1.5) 07/13/22 Unknown Oxyhemoglobin 97.0 % (95.0-99.0) 07/13/22 Unknown FiO2 30 % 07/13/22 Unknown Sodium 142 mmol/L (137-145) 07/15/22 04:00 Potassium 4.3 mmol/L (3.6-5.0) 07/15/22 04:00 Chloride 102.6 mmol/L (98-107) 07/15/22 04:00 Carbon Dioxide 34 mmol/L (22-30) H 07/15/22 04:00 Anion Gap 10 mmol/L 07/15/22 04:00 BUN 17 mg/dL (7-17) 07/15/22 04:00 Creatinine 0.4 mg/dL (0.6-1.2) L 07/15/22 04:00 Estimated GFR > 60 ml/min 07/15/22 04:00 BUN/Creatinine Ratio 43 % 07/15/22 04:00 Glucose 126 mg/dL (65-100) H 07/15/22 04:00 POC Glucose 221 mg/dL (70-105) H 07/14/22 17:20 Lactic Acid 2.10 mmol/L (0.7-2.0) H* 07/10/22 08:24 Uric Acid 13.5 mg/dL (3.5-7.6) H 07/07/22 04:17 Calcium 8.8 mg/dL (8.4-10.2) 07/15/22 04:00 Phosphorus 2.90 mg/dL (2.5-4.5) 07/15/22 04:00 Magnesium 1.80 mg/dL (1.7-2.3) 07/15/22 04:00 Ferritin 519.5 ng/mL (10.0-200.0) H 07/12/22 04:00 Total Bilirubin 0.30 mg/dL (0.1-1.2) 07/10/22 04:21 AST 89 units/L (5-40) H 07/10/22 04:21 ALT 53 units/L (7-56) 07/10/22 04:21 Alkaline Phosphatase 83 units/L (35-129) 07/10/22 04:21 Ammonia 32.0 umol/L (25-60) 07/07/22 04:17 Lactate Dehydrogenase 444 units/L (91-180) H 07/12/22 04:00 Total Creatine Kinase 1745 units/L (30-135) H 07/11/22 05:40 Troponin T 0.010 ng/mL (0.00-0.029) 07/07/22 04:17 C-Reactive Protein 0.30 mg/dL (0.00-1.30) 07/12/22 04:00 Total Protein 4.9 g/dL (6.3-8.2) L 07/10/22 04:21 Albumin 2.5 g/dL (3.9-5) L 07/10/22 04:21 Albumin/Globulin Ratio 1.0 % 07/10/22 04:21 Procalcitonin 0.19 ng/mL (<0.15) 07/08/22 14:54 TSH 12.790 mlU/mL (0.270-4.200) H 07/07/22 04:17 Free T4 0.78 ng/dL (0.76-1.46) 07/07/22 04:17 Total Cortisol 47.9 mcg/dL () 07/07/22 07:43 Urine Color Yellow (Yellow) 07/07/22 03:17 Urine Turbidity Slightly cloudy (Clear) 07/07/22 03:17 Specific [place] (Man) 1.015 (1.003-1.030) 07/07/22 03:17 Ur Protein (Man) 1+ mg/dL (Negative) 07/07/22 03:17 Ur Ketones (Man) Negative (Negative) 07/07/22 03:17 Ur Nitrite (Man) Negative (Negative) 07/07/22 03:17 Urine Bilirubin (Man) Negative (Negative) 07/07/22 03:17 Leukocyte Esterase (Man) Negative (Negative) 07/07/22 03:17 Urine WBC (Auto) 7.0 /HPF (0.0-6.0) H 07/07/22 03:17 Urine RBC (Auto) 1.0 /HPF (0.0-6.0) 07/07/22 03:17 U Epithel Cells (Auto) 4.0 /HPF (0-13.0) 07/07/22 03:17 Urine Bacteria (Auto) 3+ /HPF (Negative) 07/07/22 03:17 Urine RBC (Manual) 3+ (Negative) 07/07/22 03:17 Urine Mucus 3+ /HPF 07/07/22 03:17 Urine Osmolality 744 Mosm/kg 07/07/22 16:45 Urine Creatinine 92.9 mg/dL (0.1-20.0) H 07/07/22 16:45 Urine Sodium 109 mmol/L 07/07/22 16:45 Salicylates < 0.3 mg/dL (2.8-20.0) L 07/07/22 03:38 Urine Opiates Screen Presumptive negative 07/07/22 03:17 Urine Methadone Screen Presumptive negative 07/07/22 03:17 Acetaminophen 5.0 ug/mL (10.0-30.0) L 07/07/22 03:38 Ur Barbiturates Screen Presumptive negative 07/07/22 03:17 Valproic Acid 7.0 ug/mL (50-100) L 07/07/22 03:38 Ur Phencyclidine Scrn Presumptive negative 07/07/22 03:17 Ur Amphetamines Screen Presumptive negative 07/07/22 03:17 U Benzodiazepines Scrn Presumptive negative 07/07/22 03:17 Urine Cocaine Screen Presumptive negative 07/07/22 03:17 U Marijuana (THC) Screen Presumptive negative 07/07/22 03:17 Drugs of Abuse Note Disclamer 07/07/22 03:17 Plasma/Serum Alcohol < 0.01 % (0-0.07) 07/07/22 03:38 SARS-CoV-2 (PCR) Positive (Negative) A 07/07/22 15:00 Corbin/IV: Voiding Method External Female Catheter Active Medications - Current Medications Current Medications: Generic Name Dose Route Start Last Admin Trade Name Freq PRN Reason Stop Dose Admin Acetaminophen 650 mg 07/13/22 12:00 Acetaminophen 325 Mg/10.15 Ml Oral Liqd Unit Dose FEEDTUBE Q6H PRN Pain MILD(1-3)/Fever >100.5/LEE Atorvastatin Calcium 80 mg 07/10/22 22:00 07/14/22 22:05 Atorvastatin 40 Mg Tab FEEDTUBE 80 mg QHS ERROL Administration Cholecalciferol 1,000 unit 07/10/22 10:00 07/15/22 09:23 Cholecalciferol (Vit D3) 1000 Unit (25 Mcg) Tab FEEDTUBE 1,000 unit QDAY ERROL Administration Dexamethasone 6 mg 07/08/22 10:00 07/15/22 09:24 Dexamethasone 4 Mg/Ml Vial IV 07/17/22 10:01 6 mg Q24HR ERROL Administration Dextrose 50 ml 07/09/22 11:42 Dextrose 50% In Water (25gm) 50 Ml Syringe IV Q30MIN PRN Hypoglycemia Protocol Famotidine 20 mg 07/09/22 22:00 07/15/22 09:23 Famotidine 20 Mg Tab FEEDTUBE 20 mg BID ERROL Administration Heparin Sodium (Porcine) 5,000 unit 07/08/22 06:00 07/15/22 06:07 Heparin 5,000 Unit/1 Ml Vial SUB-Q 5,000 unit Q12H ERROL Administration Hydrophilic Ointment 1 applic 07/07/22 02:48 Lip Therapy Vaseline TP Q2HR PRN Dry Lips Insulin Human Lispro 0 unit 07/09/22 12:00 07/15/22 06:00 Insulin Lispro 100 Unit/Ml SUB-Q Not Given Q6HR ERROL Protocol Levothyroxine Sodium 75 mcg 07/11/22 06:00 07/15/22 06:07 Levothyroxine 75 Mcg Tab FEEDTUBE 75 mcg QAM@0600 ERROL Administration Multi-Ingred Cream/Lotion/Oil/Oint 1 applic 07/07/22 02:48 Mineral Oil/Petrolatum, White Ophth Oint 3.5 Gm OU Q4HR PRN Dry Eye(s) Senna/Docusate Sodium 1 tab 07/07/22 10:00 07/15/22 09:23 Sennosides/Docusate Sodium 8.6/50 Mg Tab FEEDTUBE 1 tab BID ERROL Administration Sodium Chloride 10 ml 07/07/22 13:00 07/15/22 09:24 Sodium Chloride 0.9% 10 Ml Flush Syringe IV 10 ml BID ERROL Administration Sodium Chloride 10 ml 07/07/22 12:09 Sodium Chloride 0.9% 10 Ml Flush Syringe IV PRN PRN LINE FLUSH Valproic Acid 250 mg 07/10/22 22:00 07/15/22 09:25 Valproic Acid 250 Mg/5 Ml Oral Liqd FEEDTUBE 250 mg Q12H ERROL Administration Nutrition/Malnutrition Assess - Dietary Evaluation Nutrition/Malnutrition Findings: Nutrition Notes Start: 07/07/22 13:24 Freq: Status: Active Protocol: Document 07/12/22 15:47 CARI (Rec: 07/12/22 15:56 CARI [id number]) Nutrition Notes Initial or Follow up Brief Note Current Diet TF - Vital AF 1.2 at 55ml/hr Labs/Tests BG 163 Na 143 K 3.9 Pertinent Medications Reviewed Height 5 ft 6 in Weight 95.254 kg [place] Body Weight (kg) 59.09 BMI 33.9 Subjective/Other Information Pt remains on vent support. Observed TF infusing at 45ml/ hr (15:10). Percent of energy/protein needs met: 74% energy 82% pro Burn Absent Trauma Absent #1 Nutrition Diagnosis Inadequate oral intake Diagnosis Progress(for reassessment Continues documentation) Is patient on ventilator? Yes Is Patient Ambulatory and/or Out of Bed No REE-([facility]-confined to bed) 1763.208 Kcal/Kg value to use for calculation 15 Approximate Energy Requirements Using 1429 kcal/Kg Calculation Used for Recommendations Kcal/kg Additional Notes Pro needs 1.3g/kg adjBW: 99g/ day Fluid needs 1ml/kcal Nutrition Intervention Nutrition Support: Decrease TF goal rate to 50ml/ hr with 75ml/hr q4h. Kcal 1,440 Protein (gm) 90 Fluid (mL) 973 Goal #1 TF tolerance Goal #2 TF to meet 70-80% energy and at least 75% pro needs Follow-Up By: 07/17/22 Additional Comments F/U: TF goal rate/tolerance, vent status, wt <ANAHI ANGELES - Last Filed: 07/17/22 07:44> Assessment and Plan Assessment and plan: I saw and evaluated the patient. I agree with the findings and the plan of care as documented in the Nurse Practitioner's~note, with the following corrections and additions. Hospitalist Physical - Constitutional Vitals: Temp Pulse Resp BP Pulse Ox 98.0 F 85 12 96/58 100 07/17/22 04:00 07/17/22 06:00 07/17/22 06:00 07/17/22 06:00 07/17/22 06:00 HEART Score - HEART Score Troponin: Troponin T 0.010 ng/mL (0.00-0.029) 07/07/22 04:17 Results - Labs CBC & Chem 7: 07/16/22 04:20 07/16/22 04:20 Labs: Laboratory Last Values WBC 9.6 K/mm3 (4.5-11.0) 07/16/22 04:20 RBC 3.16 M/mm3 (3.65-5.03) L 07/16/22 04:20 Hgb 10.4 gm/dl (10.1-14.3) 07/16/22 04:20 Hct 31.4 % (30.3-42.9) 07/16/22 04:20 MCV 99 fl (79-97) H 07/16/22 04:20 MCH 33 pg (28-32) H 07/16/22 04:20 MCHC 33 % (30-34) 07/16/22 04:20 RDW 14.7 % (13.2-15.2) 07/16/22 04:20 Plt Count 101 K/mm3 (140-440) L 07/16/22 04:20 Lymph % (Auto) 15.2 % (13.4-35.0) 07/08/22 14:54 [place] % (Auto) 2.7 % (0.0-7.3) 07/08/22 14:54 Eos % (Auto) 0.0 % (0.0-4.3) 07/08/22 14:54 Baso % (Auto) 0.1 % (0.0-1.8) 07/08/22 14:54 Lymph # (Auto) 1.7 K/mm3 (1.2-5.4) 07/08/22 14:54 [place] # (Auto) 0.3 K/mm3 (0.0-0.8) 07/08/22 14:54 Eos # (Auto) 0.0 K/mm3 (0.0-0.4) 07/08/22 14:54 Baso # (Auto) 0.0 K/mm3 (0.0-0.1) 07/08/22 14:54 Seg Neutrophils % 82.0 % (40.0-70.0) H 07/08/22 14:54 Seg Neutrophils # 9.1 K/mm3 (1.8-7.7) H 07/08/22 14:54 PT 15.0 Sec. (12.2-14.9) H 07/07/22 03:38 INR 1.06 (0.87-1.13) 07/07/22 03:38 APTT 23.0 Sec. (24.2-36.6) L 07/07/22 03:38 D-Dimer 925.80 ng/mlDDU (0-234) H 07/12/22 04:00 ABG pH 7.465 pH Units (7.350-7.450) H 07/13/22 Unknown ABG pCO2 41.3 mm Hg 07/13/22 Unknown ABG pO2 128.8 mm Hg (80.0-90.0) H 07/13/22 Unknown ABG HCO3 29.0 mmol/L (20.0-26.0) H 07/13/22 Unknown ABG O2 Saturation 98.6 % (95.0-99.0) 07/13/22 Unknown ABG O2 Content 14.3 (0.0-44) 07/13/22 Unknown ABG Base Excess 4.9 mmol/L (-2.0-3.0) H 07/13/22 Unknown ABG Hemoglobin 10.3 gm/dl (12.0-16.0) L 07/13/22 Unknown ABG Carboxyhemoglobin 0.9 % (0.0-5.0) 07/13/22 Unknown ABG Methemoglobin 0.7 % (0.0-1.5) 07/13/22 Unknown Oxyhemoglobin 97.0 % (95.0-99.0) 07/13/22 Unknown FiO2 30 % 07/13/22 Unknown Sodium 141 mmol/L (137-145) 07/16/22 04:20 Potassium 4.2 mmol/L (3.6-5.0) 07/16/22 04:20 Chloride 99.5 mmol/L (98-107) 07/16/22 04:20 Carbon Dioxide 36 mmol/L (22-30) H 07/16/22 04:20 Anion Gap 10 mmol/L 07/16/22 04:20 BUN 18 mg/dL (7-17) H 07/16/22 04:20 Creatinine 0.4 mg/dL (0.6-1.2) L 07/16/22 04:20 Estimated GFR > 60 ml/min 07/16/22 04:20 BUN/Creatinine Ratio 45 % 07/16/22 04:20 Glucose 139 mg/dL (65-100) H 07/16/22 04:20 POC Glucose 123 mg/dL (70-105) H 07/17/22 05:46 Lactic Acid 2.10 mmol/L (0.7-2.0) H* 07/10/22 08:24 Uric Acid 13.5 mg/dL (3.5-7.6) H 07/07/22 04:17 Calcium 8.4 mg/dL (8.4-10.2) 07/16/22 04:20 Phosphorus 2.90 mg/dL (2.5-4.5) 07/16/22 04:20 Magnesium 1.80 mg/dL (1.7-2.3) 07/16/22 04:20 Ferritin 519.5 ng/mL (10.0-200.0) H 07/12/22 04:00 Total Bilirubin 0.30 mg/dL (0.1-1.2) 07/10/22 04:21 AST 89 units/L (5-40) H 07/10/22 04:21 ALT 53 units/L (7-56) 07/10/22 04:21 Alkaline Phosphatase 83 units/L (35-129) 07/10/22 04:21 Ammonia 32.0 umol/L (25-60) 07/07/22 04:17 Lactate Dehydrogenase 444 units/L (91-180) H 07/12/22 04:00 Total Creatine Kinase 1745 units/L (30-135) H 07/11/22 05:40 Troponin T 0.010 ng/mL (0.00-0.029) 07/07/22 04:17 C-Reactive Protein 0.30 mg/dL (0.00-1.30) 07/12/22 04:00 Total Protein 4.9 g/dL (6.3-8.2) L 07/10/22 04:21 Albumin 2.5 g/dL (3.9-5) L 07/10/22 04:21 Albumin/Globulin Ratio 1.0 % 07/10/22 04:21 Procalcitonin 0.19 ng/mL (<0.15) 07/08/22 14:54 TSH 12.790 mlU/mL (0.270-4.200) H 07/07/22 04:17 Free T4 0.78 ng/dL (0.76-1.46) 07/07/22 04:17 Total Cortisol 47.9 mcg/dL () 07/07/22 07:43 Urine Color Yellow (Yellow) 07/07/22 03:17 Urine Turbidity Slightly cloudy (Clear) 07/07/22 03:17 Specific [place] (Man) 1.015 (1.003-1.030) 07/07/22 03:17 Ur Protein (Man) 1+ mg/dL (Negative) 07/07/22 03:17 Ur Ketones (Man) Negative (Negative) 07/07/22 03:17 Ur Nitrite (Man) Negative (Negative) 07/07/22 03:17 Urine Bilirubin (Man) Negative (Negative) 07/07/22 03:17 Leukocyte Esterase (Man) Negative (Negative) 07/07/22 03:17 Urine WBC (Auto) 7.0 /HPF (0.0-6.0) H 07/07/22 03:17 Urine RBC (Auto) 1.0 /HPF (0.0-6.0) 07/07/22 03:17 U Epithel Cells (Auto) 4.0 /HPF (0-13.0) 07/07/22 03:17 Urine Bacteria (Auto) 3+ /HPF (Negative) 07/07/22 03:17 Urine RBC (Manual) 3+ (Negative) 07/07/22 03:17 Urine Mucus 3+ /HPF 07/07/22 03:17 Urine Osmolality 744 Mosm/kg 07/07/22 16:45 Urine Creatinine 92.9 mg/dL (0.1-20.0) H 07/07/22 16:45 Urine Sodium 109 mmol/L 07/07/22 16:45 Salicylates < 0.3 mg/dL (2.8-20.0) L 07/07/22 03:38 Urine Opiates Screen Presumptive negative 07/07/22 03:17 Urine Methadone Screen Presumptive negative 07/07/22 03:17 Acetaminophen 5.0 ug/mL (10.0-30.0) L 07/07/22 03:38 Ur Barbiturates Screen Presumptive negative 07/07/22 03:17 Valproic Acid 7.0 ug/mL (50-100) L 07/07/22 03:38 Ur Phencyclidine Scrn Presumptive negative 07/07/22 03:17 Ur Amphetamines Screen Presumptive negative 07/07/22 03:17 U Benzodiazepines Scrn Presumptive negative 07/07/22 03:17 Urine Cocaine Screen Presumptive negative 07/07/22 03:17 U Marijuana (THC) Screen Presumptive negative 07/07/22 03:17 Drugs of Abuse Note Disclamer 07/07/22 03:17 Plasma/Serum Alcohol < 0.01 % (0-0.07) 07/07/22 03:38 SARS-CoV-2 (PCR) Positive (Negative) A 07/07/22 15:00 Corbin/IV: Voiding Method Incontinent Active Medications - Current Medications Current Medications: Generic Name Dose Route Start Last Admin Trade Name Freq PRN Reason Stop Dose Admin Acetaminophen 650 mg 07/13/22 12:00 Acetaminophen 325 Mg/10.15 Ml Oral Liqd Unit Dose FEEDTUBE Q6H PRN Pain MILD(1-3)/Fever >100.5/LEE Atorvastatin Calcium 80 mg 07/10/22 22:00 07/16/22 21:43 Atorvastatin 40 Mg Tab FEEDTUBE 80 mg QHS ERROL Administration Cholecalciferol 1,000 unit 07/10/22 10:00 07/16/22 10:02 Cholecalciferol (Vit D3) 1000 Unit (25 Mcg) Tab FEEDTUBE 1,000 unit QDAY ERROL Administration Dexamethasone 6 mg 07/08/22 10:00 07/16/22 10:03 Dexamethasone 4 Mg/Ml Vial IV 07/17/22 10:01 6 mg Q24HR ERROL Administration Dextrose 50 ml 07/09/22 11:42 Dextrose 50% In Water (25gm) 50 Ml Syringe IV Q30MIN PRN Hypoglycemia Protocol Famotidine 20 mg 07/09/22 22:00 07/16/22 21:43 Famotidine 20 Mg Tab FEEDTUBE 20 mg BID ERROL Administration Heparin Sodium (Porcine) 5,000 unit 07/08/22 06:00 07/17/22 05:53 Heparin 5,000 Unit/1 Ml Vial SUB-Q 5,000 unit Q12H ERROL Administration Hydrophilic Ointment 1 applic 07/07/22 02:48 Lip Therapy Vaseline TP Q2HR PRN Dry Lips Insulin Human Lispro 0 unit 07/09/22 12:00 07/17/22 05:53 Insulin Lispro 100 Unit/Ml SUB-Q Not Given Q6HR ERROL Protocol Levothyroxine Sodium 75 mcg 07/11/22 06:00 07/17/22 05:54 Levothyroxine 75 Mcg Tab FEEDTUBE 75 mcg QAM@0600 ERROL Administration Multi-Ingred Cream/Lotion/Oil/Oint 1 applic 07/07/22 02:48 Mineral Oil/Petrolatum, White Ophth Oint 3.5 Gm OU Q4HR PRN Dry Eye(s) Senna/Docusate Sodium 1 tab 07/07/22 10:00 07/16/22 21:44 Sennosides/Docusate Sodium 8.6/50 Mg Tab FEEDTUBE Not Given BID ERROL Sodium Chloride 10 ml 07/07/22 13:00 07/16/22 21:44 Sodium Chloride 0.9% 10 Ml Flush Syringe IV 10 ml BID ERROL Administration Sodium Chloride 10 ml 07/07/22 12:09 Sodium Chloride 0.9% 10 Ml Flush Syringe IV PRN PRN LINE FLUSH Valproic Acid 250 mg 07/10/22 22:00 07/16/22 21:43 Valproic Acid 250 Mg/5 Ml Oral Liqd FEEDTUBE 250 mg Q12H ERROL Administration Nutrition/Malnutrition Assess - Dietary Evaluation Nutrition/Malnutrition Findings: Nutrition Notes Start: 07/07/22 13:24 Freq: Status: Active Protocol: Document 07/12/22 15:47 CARI (Rec: 07/12/22 15:56 NHALL [id number]) Nutrition Notes Initial or Follow up Brief Note Current Diet TF - Vital AF 1.2 at 55ml/hr Labs/Tests BG 163 Na 143 K 3.9 Pertinent Medications Reviewed Height 5 ft 6 in Weight 95.254 kg [place] Body Weight (kg) 59.09 BMI 33.9 Subjective/Other Information Pt remains on vent support. Observed TF infusing at 45ml/ hr (15:10). Percent of energy/protein needs met: 74% energy 82% pro Burn Absent Trauma Absent #1 Nutrition Diagnosis Inadequate oral intake Diagnosis Progress(for reassessment Continues documentation) Is patient on ventilator? Yes Is Patient Ambulatory and/or Out of Bed No REE-([facility]-confined to bed) [phone] Kcal/Kg value to use for calculation 15 Approximate Energy Requirements Using 1429 kcal/Kg Calculation Used for Recommendations Kcal/kg Additional Notes Pro needs 1.3g/kg adjBW: 99g/ day Fluid needs 1ml/kcal Nutrition Intervention Nutrition Support: Decrease TF goal rate to 50ml/ hr with 75ml/hr q4h. Kcal 1,440 Protein (gm) 90 Fluid (mL) 973 Goal #1 TF tolerance Goal #2 TF to meet 70-80% energy and at least 75% pro needs Follow-Up By: 07/17/22 Additional Comments F/U: TF goal rate/tolerance, vent status, wt
--- NOTE | 2022-07-15 13:40 | Progress Note ---
Assessment and Plan 76 y/o female with acute respiratory failure secondary to altered mental status, most likely from electrolyte abnormalities seen on chemistry, found to be COVID positive. 07/15/22: mental status is still unchanged. Eyes open but not tracking or following commands. Also going apnic on PSV trials. Most likely will need trach and peg given mental status has not improved. 07/12/22: Negative MRI for acute infarct. Na is normal. Continue to monitor. Daily PSV trials. Has been intubated now for 5 days. 07/11/22: for MRI today. Appreciate renal help, agree with signing off. Attempt daily PSV. Guarded prognosis. 07/10: follow up MRI. Get official EEG read but no status. Continue daily PSV trials. Guarded prognosis 07/09/22: Continue supportive measures. Continue to fix Na, if no improvement in mental state with normal sodium then will pursue MRI. Picc placed today. 07/08/22: No further sedation. 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 Consider neurology consult and may need to obtain MRI. Attempt PSV trials today. 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 Feed patient and monitor lytes. 1. Discontinue sedation 2. Wean FiO2 for sats >88% and PaO2 greater than 60 3. Agree with fluid resuscitation, patient needs free water 4. Will follow up with family to find out exactly what patient mental status was a facility CCT 31 minutes. Subjective Date of service: 07/15/22 Principal diagnosis: Hypernatremia Interval history: No acute events. Failed PSV secondary to apnea this am. Still on minimal vent settings. Has finished therapy for COVID. Lytes are stable but mental status has still not improved. Objective Vital Signs - 12hr 07/15/22 07/15/22 07/15/22 02:00 03:00 04:00 Temperature 97.9 F Pulse Rate 89 80 76 Pulse Rate [ 76 From Monitor] Respiratory 15 11 L 12 Rate Blood Pressure 111/72 105/58 96/55 O2 Sat by Pulse 98 99 100 Oximetry 07/15/22 07/15/22 07/15/22 04:14 05:01 06:00 Temperature Pulse Rate 89 93 H 90 Pulse Rate [ From Monitor] Respiratory 11 L 14 Rate Blood Pressure 96/55 116/77 114/64 O2 Sat by Pulse 99 99 99 Oximetry 07/15/22 07/15/22 07/15/22 07:00 07:03 07:44 Temperature 98.1 F Pulse Rate 94 H 101 H Pulse Rate [ From Monitor] Respiratory 12 Rate Blood Pressure 114/64 110/63 O2 Sat by Pulse 99 98 Oximetry 07/15/22 07/15/22 07/15/22 08:00 09:00 10:00 Temperature 98.1 F Pulse Rate 87 86 79 Pulse Rate [ From Monitor] Respiratory 10 L 8 L 12 Rate Blood Pressure 104/62 101/57 100/58 O2 Sat by Pulse 100 99 100 Oximetry 07/15/22 07/15/22 11:46 12:35 Temperature 98.2 F Pulse Rate 79 Pulse Rate [ From Monitor] Respiratory Rate Blood Pressure 100/58 O2 Sat by Pulse 100 Oximetry Constitutional: comatose ENT: other (orally intubated) Neck: supple Effort: normal Ascultation: Bilateral: clear Percussion: Bilateral: not dull Cardiovascular: regular rate and rhythm Gastrointestinal: normoactive bowel sounds, soft Extremities: no cyanosis, no edema Neurologic: unable to assess CBC and BMP: 07/15/22 04:00 07/15/22 04:00 ABG, PT/INR, D-dimer: ABG ABG pH 7.465 pH Units (7.350-7.450) H 07/13/22 Unknown ABG pCO2 41.3 mm Hg 07/13/22 Unknown ABG pO2 128.8 mm Hg (80.0-90.0) H 07/13/22 Unknown ABG O2 Saturation 98.6 % (95.0-99.0) 07/13/22 Unknown PT/INR, D-dimer PT 15.0 Sec. (12.2-14.9) H 07/07/22 03:38 INR 1.06 (0.87-1.13) 07/07/22 03:38 D-Dimer 925.80 ng/mlDDU (0-234) H 07/12/22 04:00 Abnormal lab findings: Abnormal Labs 07/07/22 07/07/22 07/07/22 03:17 03:38 03:38 WBC RBC 5.43 H Hgb 18.2 H Hct 54.9 H MCV 101 H MCH 34 H Plt Count 104 L Seg Neutrophils % Seg Neutrophils # PT 15.0 H APTT 23.0 L D-Dimer ABG pH ABG pO2 ABG HCO3 ABG O2 Saturation ABG Base Excess ABG Hemoglobin Oxyhemoglobin Sodium Potassium Chloride Carbon Dioxide BUN Creatinine Glucose POC Glucose Lactic Acid Uric Acid Calcium Magnesium Ferritin Total Bilirubin AST Lactate Dehydrogenase Total Creatine Kinase C-Reactive Protein Total Protein Albumin TSH Urine WBC (Auto) 7.0 H Urine Creatinine Salicylates Acetaminophen Valproic Acid SARS-CoV-2 (PCR) 07/07/22 07/07/22 07/07/22 03:38 03:38 03:38 WBC RBC Hgb Hct MCV MCH Plt Count Seg Neutrophils % Seg Neutrophils # PT APTT D-Dimer ABG pH ABG pO2 ABG HCO3 ABG O2 Saturation ABG Base Excess ABG Hemoglobin Oxyhemoglobin Sodium Potassium Chloride Carbon Dioxide BUN Creatinine Glucose POC Glucose Lactic Acid Uric Acid Calcium Magnesium 3.30 H Ferritin Total Bilirubin AST Lactate Dehydrogenase Total Creatine Kinase 1826 H C-Reactive Protein Total Protein Albumin TSH Urine WBC (Auto) Urine Creatinine Salicylates < 0.3 L Acetaminophen 5.0 L Valproic Acid 7.0 L SARS-CoV-2 (PCR) 07/07/22 07/07/22 07/07/22 04:17 04:17 04:17 WBC RBC Hgb Hct MCV MCH Plt Count Seg Neutrophils % Seg Neutrophils # PT APTT D-Dimer ABG pH ABG pO2 ABG HCO3 ABG O2 Saturation ABG Base Excess ABG Hemoglobin Oxyhemoglobin Sodium 168 H* Potassium 3.2 L Chloride 122.2 H Carbon Dioxide BUN 52 H Creatinine Glucose 158 H POC Glucose Lactic Acid 3.50 H* Uric Acid Calcium 10.9 H Magnesium Ferritin Total Bilirubin 1.40 H AST 47 H Lactate Dehydrogenase Total Creatine Kinase C-Reactive Protein Total Protein Albumin TSH 12.790 H Urine WBC (Auto) Urine Creatinine Salicylates Acetaminophen Valproic Acid SARS-CoV-2 (PCR) 07/07/22 07/07/22 07/07/22 04:17 07:43 09:35 WBC RBC Hgb Hct MCV MCH Plt Count Seg Neutrophils % Seg Neutrophils # PT APTT D-Dimer ABG pH ABG pO2 377.3 H ABG HCO3 ABG O2 Saturation 99.6 H ABG Base Excess -2.5 L ABG Hemoglobin Oxyhemoglobin Sodium Potassium Chloride Carbon Dioxide BUN Creatinine Glucose POC Glucose Lactic Acid 6.30 H* Uric Acid 13.5 H Calcium Magnesium Ferritin Total Bilirubin AST Lactate Dehydrogenase Total Creatine Kinase C-Reactive Protein Total Protein Albumin TSH Urine WBC (Auto) Urine Creatinine Salicylates Acetaminophen Valproic Acid SARS-CoV-2 (PCR) 07/07/22 07/07/22 07/07/22 15:00 16:00 16:00 WBC RBC Hgb Hct MCV MCH Plt Count Seg Neutrophils % Seg Neutrophils # PT APTT D-Dimer ABG pH ABG pO2 ABG HCO3 ABG O2 Saturation ABG Base Excess ABG Hemoglobin Oxyhemoglobin Sodium 166 H* Potassium Chloride 124.8 H Carbon Dioxide 20 L BUN 41 H Creatinine Glucose 157 H POC Glucose Lactic Acid 7.00 H* Uric Acid Calcium Magnesium Ferritin Total Bilirubin AST 81 H Lactate Dehydrogenase Total Creatine Kinase C-Reactive Protein Total Protein Albumin TSH Urine WBC (Auto) Urine Creatinine Salicylates Acetaminophen Valproic Acid SARS-CoV-2 (PCR) Positive A 07/07/22 07/07/22 07/07/22 16:45 23:42 23:42 WBC RBC Hgb Hct MCV MCH Plt Count Seg Neutrophils % Seg Neutrophils # PT APTT D-Dimer ABG pH ABG pO2 ABG HCO3 ABG O2 Saturation ABG Base Excess ABG Hemoglobin Oxyhemoglobin Sodium 165 H* Potassium 3.0 L Chloride 122.8 H Carbon Dioxide BUN 38 H Creatinine Glucose 232 H POC Glucose Lactic Acid 5.60 H* Uric Acid Calcium Magnesium Ferritin Total Bilirubin AST Lactate Dehydrogenase Total Creatine Kinase C-Reactive Protein Total Protein Albumin TSH Urine WBC (Auto) Urine Creatinine 92.9 H Salicylates Acetaminophen Valproic Acid SARS-CoV-2 (PCR) 07/07/22 07/07/22 07/08/22 Unknown Unknown 05:30 WBC RBC Hgb Hct MCV MCH Plt Count Seg Neutrophils % Seg Neutrophils # PT APTT D-Dimer ABG pH 7.553 H 7.473 H ABG pO2 61.7 L 121.7 H ABG HCO3 ABG O2 Saturation 94.7 L ABG Base Excess 4.3 H ABG Hemoglobin 18.0 H Oxyhemoglobin 93.1 L Sodium 163 H* Potassium 6.3 H* D Chloride 123.7 H Carbon Dioxide BUN 42 H Creatinine Glucose 169 H POC Glucose Lactic Acid Uric Acid Calcium Magnesium Ferritin Total Bilirubin AST Lactate Dehydrogenase Total Creatine Kinase C-Reactive Protein Total Protein Albumin TSH Urine WBC (Auto) Urine Creatinine Salicylates Acetaminophen Valproic Acid SARS-CoV-2 (PCR) 07/08/22 07/08/22 07/08/22 05:36 11:21 14:54 WBC 11.1 H RBC Hgb Hct MCV 101 H MCH 33 H Plt Count 69 L Seg Neutrophils % 82.0 H Seg Neutrophils # 9.1 H PT APTT D-Dimer ABG pH ABG pO2 ABG HCO3 ABG O2 Saturation ABG Base Excess ABG Hemoglobin Oxyhemoglobin Sodium Potassium Chloride Carbon Dioxide BUN Creatinine Glucose POC Glucose 174 H 148 H Lactic Acid Uric Acid Calcium Magnesium Ferritin Total Bilirubin AST Lactate Dehydrogenase Total Creatine Kinase C-Reactive Protein Total Protein Albumin TSH Urine WBC (Auto) Urine Creatinine Salicylates Acetaminophen Valproic Acid SARS-CoV-2 (PCR) 07/08/22 07/08/22 07/08/22 14:54 14:54 14:54 WBC RBC Hgb Hct MCV MCH Plt Count Seg Neutrophils % Seg Neutrophils # PT APTT D-Dimer ABG pH ABG pO2 ABG HCO3 ABG O2 Saturation ABG Base Excess ABG Hemoglobin Oxyhemoglobin Sodium 163 H* Potassium 2.9 L* Chloride 123.7 H Carbon Dioxide BUN 30 H Creatinine Glucose 161 H POC Glucose Lactic Acid 6.10 H* Uric Acid Calcium Magnesium Ferritin Total Bilirubin AST 69 H Lactate Dehydrogenase Total Creatine Kinase 2335 H C-Reactive Protein Total Protein 5.6 L D Albumin 3.1 L TSH Urine WBC (Auto) Urine Creatinine Salicylates Acetaminophen Valproic Acid SARS-CoV-2 (PCR) 07/08/22 07/08/22 07/08/22 14:54 14:54 14:54 WBC RBC Hgb Hct MCV MCH Plt Count Seg Neutrophils % Seg Neutrophils # PT APTT D-Dimer 499.72 H ABG pH ABG pO2 ABG HCO3 ABG O2 Saturation ABG Base Excess ABG Hemoglobin Oxyhemoglobin Sodium Potassium Chloride Carbon Dioxide BUN Creatinine Glucose POC Glucose Lactic Acid Uric Acid Calcium Magnesium Ferritin 722.1 H Total Bilirubin AST Lactate Dehydrogenase 455 H Total Creatine Kinase C-Reactive Protein 1.60 H Total Protein Albumin TSH Urine WBC (Auto) Urine Creatinine Salicylates Acetaminophen Valproic Acid SARS-CoV-2 (PCR) 07/08/22 07/08/22 07/09/22 19:13 19:53 00:09 WBC RBC Hgb Hct MCV MCH Plt Count Seg Neutrophils % Seg Neutrophils # PT APTT D-Dimer ABG pH ABG pO2 ABG HCO3 ABG O2 Saturation ABG Base Excess ABG Hemoglobin Oxyhemoglobin Sodium 160 H Potassium 3.5 L D Chloride 122.0 H Carbon Dioxide 20 L BUN 28 H Creatinine Glucose 151 H POC Glucose 138 H Lactic Acid 5.70 H* Uric Acid Calcium Magnesium Ferritin Total Bilirubin AST Lactate Dehydrogenase Total Creatine Kinase C-Reactive Protein Total Protein Albumin TSH Urine WBC (Auto) Urine Creatinine Salicylates Acetaminophen Valproic Acid SARS-CoV-2 (PCR) 07/09/22 07/09/22 07/09/22 00:45 03:21 03:21 WBC RBC Hgb Hct MCV MCH Plt Count Seg Neutrophils % Seg Neutrophils # PT APTT D-Dimer ABG pH ABG pO2 ABG HCO3 ABG O2 Saturation ABG Base Excess ABG Hemoglobin Oxyhemoglobin Sodium 158 H 157 H Potassium Chloride 124.2 H 125.0 H Carbon Dioxide 20 L 20 L BUN 25 H 24 H Creatinine Glucose 147 H 169 H POC Glucose Lactic Acid 4.70 H* Uric Acid Calcium Magnesium Ferritin Total Bilirubin AST 81 H Lactate Dehydrogenase Total Creatine Kinase C-Reactive Protein Total Protein 5.7 L Albumin 2.8 L TSH Urine WBC (Auto) Urine Creatinine Salicylates Acetaminophen Valproic Acid SARS-CoV-2 (PCR) 07/09/22 07/09/22 07/09/22 04:40 05:35 08:14 WBC RBC Hgb Hct MCV 102 H MCH 33 H Plt Count 74 L Seg Neutrophils % Seg Neutrophils # PT APTT D-Dimer ABG pH ABG pO2 172.1 H ABG HCO3 ABG O2 Saturation 99.1 H ABG Base Excess -2.8 L ABG Hemoglobin Oxyhemoglobin Sodium Potassium Chloride Carbon Dioxide BUN Creatinine Glucose POC Glucose 108 H Lactic Acid Uric Acid Calcium Magnesium Ferritin Total Bilirubin AST Lactate Dehydrogenase Total Creatine Kinase C-Reactive Protein Total Protein Albumin TSH Urine WBC (Auto) Urine Creatinine Salicylates Acetaminophen Valproic Acid SARS-CoV-2 (PCR) 07/09/22 07/09/22 07/09/22 11:16 11:27 16:20 WBC RBC Hgb Hct MCV MCH Plt Count Seg Neutrophils % Seg Neutrophils # PT APTT D-Dimer ABG pH ABG pO2 ABG HCO3 ABG O2 Saturation ABG Base Excess ABG Hemoglobin Oxyhemoglobin Sodium 155 H Potassium Chloride 121.3 H Carbon Dioxide BUN 21 H Creatinine Glucose 170 H POC Glucose 173 H 190 H Lactic Acid Uric Acid Calcium Magnesium Ferritin Total Bilirubin AST Lactate Dehydrogenase Total Creatine Kinase C-Reactive Protein Total Protein Albumin TSH Urine WBC (Auto) Urine Creatinine Salicylates Acetaminophen Valproic Acid SARS-CoV-2 (PCR) 07/09/22 07/10/22 07/10/22 17:16 00:04 04:21 WBC RBC Hgb Hct MCV MCH Plt Count Seg Neutrophils % Seg Neutrophils # PT APTT D-Dimer ABG pH ABG pO2 ABG HCO3 ABG O2 Saturation ABG Base Excess ABG Hemoglobin Oxyhemoglobin Sodium 149 H 150 H Potassium Chloride 115.6 H 115.0 H Carbon Dioxide BUN 18 H Creatinine 0.5 L Glucose 207 H 178 H POC Glucose 180 H Lactic Acid Uric Acid Calcium 7.9 L Magnesium Ferritin Total Bilirubin AST 89 H Lactate Dehydrogenase 431 H Total Creatine Kinase C-Reactive Protein Total Protein 4.9 L Albumin 2.5 L TSH Urine WBC (Auto) Urine Creatinine Salicylates Acetaminophen Valproic Acid SARS-CoV-2 (PCR) 07/10/22 07/10/22 07/10/22 04:21 04:21 04:21 WBC 11.8 H RBC 3.52 L Hgb Hct MCV 99 H MCH 33 H Plt Count 67 L Seg Neutrophils % Seg Neutrophils # PT APTT D-Dimer 585.71 H ABG pH ABG pO2 ABG HCO3 ABG O2 Saturation ABG Base Excess ABG Hemoglobin Oxyhemoglobin Sodium Potassium Chloride Carbon Dioxide BUN Creatinine Glucose POC Glucose Lactic Acid Uric Acid Calcium Magnesium Ferritin 631.3 H Total Bilirubin AST Lactate Dehydrogenase Total Creatine Kinase C-Reactive Protein Total Protein Albumin TSH Urine WBC (Auto) Urine Creatinine Salicylates Acetaminophen Valproic Acid SARS-CoV-2 (PCR) 07/10/22 07/10/22 07/10/22 04:21 04:55 05:26 WBC RBC Hgb Hct MCV MCH Plt Count Seg Neutrophils % Seg Neutrophils # PT APTT D-Dimer ABG pH ABG pO2 76.8 L ABG HCO3 ABG O2 Saturation ABG Base Excess ABG Hemoglobin 10.4 L Oxyhemoglobin 94.5 L Sodium Potassium Chloride Carbon Dioxide BUN Creatinine Glucose POC Glucose 147 H Lactic Acid 2.50 H* Uric Acid Calcium Magnesium Ferritin Total Bilirubin AST Lactate Dehydrogenase Total Creatine Kinase C-Reactive Protein Total Protein Albumin TSH Urine WBC (Auto) Urine Creatinine Salicylates Acetaminophen Valproic Acid SARS-CoV-2 (PCR) 07/10/22 07/10/22 07/10/22 08:24 11:31 12:53 WBC RBC Hgb Hct MCV MCH Plt Count Seg Neutrophils % Seg Neutrophils # PT APTT D-Dimer ABG pH ABG pO2 ABG HCO3 ABG O2 Saturation ABG Base Excess ABG Hemoglobin Oxyhemoglobin Sodium Potassium Chloride 110.9 H Carbon Dioxide BUN Creatinine 0.5 L Glucose 200 H POC Glucose 166 H Lactic Acid 2.10 H* Uric Acid Calcium 8.3 L Magnesium Ferritin Total Bilirubin AST Lactate Dehydrogenase Total Creatine Kinase C-Reactive Protein Total Protein Albumin TSH Urine WBC (Auto) Urine Creatinine Salicylates Acetaminophen Valproic Acid SARS-CoV-2 (PCR) 07/10/22 07/10/22 07/10/22 17:37 18:53 23:30 WBC RBC Hgb Hct MCV MCH Plt Count Seg Neutrophils % Seg Neutrophils # PT APTT D-Dimer ABG pH ABG pO2 ABG HCO3 ABG O2 Saturation ABG Base Excess ABG Hemoglobin Oxyhemoglobin Sodium Potassium Chloride 109.5 H 110.2 H Carbon Dioxide BUN Creatinine 0.5 L 0.5 L Glucose 243 H 208 H POC Glucose 237 H Lactic Acid Uric Acid Calcium 8.1 L 8.1 L Magnesium Ferritin Total Bilirubin AST Lactate Dehydrogenase Total Creatine Kinase C-Reactive Protein Total Protein Albumin TSH Urine WBC (Auto) Urine Creatinine Salicylates Acetaminophen Valproic Acid SARS-CoV-2 (PCR) 07/10/22 07/11/22 07/11/22 23:57 04:00 04:15 WBC 11.2 H RBC Hgb Hct MCV 99 H MCH Plt Count 73 L Seg Neutrophils % Seg Neutrophils # PT APTT D-Dimer ABG pH ABG pO2 107.4 H ABG HCO3 ABG O2 Saturation ABG Base Excess ABG Hemoglobin Oxyhemoglobin Sodium Potassium Chloride Carbon Dioxide BUN Creatinine Glucose POC Glucose 195 H Lactic Acid Uric Acid Calcium Magnesium Ferritin Total Bilirubin AST Lactate Dehydrogenase Total Creatine Kinase C-Reactive Protein Total Protein Albumin TSH Urine WBC (Auto) Urine Creatinine Salicylates Acetaminophen Valproic Acid SARS-CoV-2 (PCR) 07/11/22 07/11/22 07/11/22 05:40 05:40 06:06 WBC RBC Hgb Hct MCV MCH Plt Count Seg Neutrophils % Seg Neutrophils # PT APTT D-Dimer ABG pH ABG pO2 ABG HCO3 ABG O2 Saturation ABG Base Excess ABG Hemoglobin Oxyhemoglobin Sodium Potassium Chloride 109.8 H Carbon Dioxide BUN Creatinine 0.5 L Glucose 160 H POC Glucose 145 H Lactic Acid Uric Acid Calcium 8.3 L Magnesium Ferritin Total Bilirubin AST Lactate Dehydrogenase Total Creatine Kinase 1745 H C-Reactive Protein Total Protein Albumin TSH Urine WBC (Auto) Urine Creatinine Salicylates Acetaminophen Valproic Acid SARS-CoV-2 (PCR) 07/11/22 07/11/22 07/11/22 11:55 11:59 17:44 WBC RBC Hgb Hct MCV MCH Plt Count Seg Neutrophils % Seg Neutrophils # PT APTT D-Dimer ABG pH ABG pO2 ABG HCO3 ABG O2 Saturation ABG Base Excess ABG Hemoglobin Oxyhemoglobin Sodium Potassium Chloride 107.8 H Carbon Dioxide BUN Creatinine 0.5 L Glucose 150 H POC Glucose 150 H 182 H Lactic Acid Uric Acid Calcium 8.2 L Magnesium Ferritin Total Bilirubin AST Lactate Dehydrogenase Total Creatine Kinase C-Reactive Protein Total Protein Albumin TSH Urine WBC (Auto) Urine Creatinine Salicylates Acetaminophen Valproic Acid SARS-CoV-2 (PCR) 07/11/22 07/12/22 07/12/22 17:50 00:10 00:12 WBC RBC Hgb Hct MCV MCH Plt Count Seg Neutrophils % Seg Neutrophils # PT APTT D-Dimer ABG pH ABG pO2 ABG HCO3 ABG O2 Saturation ABG Base Excess ABG Hemoglobin Oxyhemoglobin Sodium Potassium Chloride 108.4 H Carbon Dioxide BUN Creatinine 0.5 L 0.4 L Glucose 191 H 163 H POC Glucose 154 H Lactic Acid Uric Acid Calcium 8.2 L 7.9 L Magnesium Ferritin Total Bilirubin AST Lactate Dehydrogenase Total Creatine Kinase C-Reactive Protein Total Protein Albumin TSH Urine WBC (Auto) Urine Creatinine Salicylates Acetaminophen Valproic Acid SARS-CoV-2 (PCR) 07/12/22 07/12/22 07/12/22 04:00 04:00 04:00 WBC RBC Hgb Hct MCV MCH Plt Count Seg Neutrophils % Seg Neutrophils # PT APTT D-Dimer 925.80 H ABG pH ABG pO2 ABG HCO3 ABG O2 Saturation ABG Base Excess ABG Hemoglobin Oxyhemoglobin Sodium Potassium Chloride Carbon Dioxide BUN Creatinine Glucose POC Glucose Lactic Acid Uric Acid Calcium Magnesium Ferritin 519.5 H Total Bilirubin AST Lactate Dehydrogenase 444 H Total Creatine Kinase C-Reactive Protein Total Protein Albumin TSH Urine WBC (Auto) Urine Creatinine Salicylates Acetaminophen Valproic Acid SARS-CoV-2 (PCR) 09/02/22 09/02/22 09/02/22 04:00 05:00 05:03 WBC 11.7 H RBC 3.33 L Hgb Hct MCV 99 H MCH 33 H Plt Count 68 L Seg Neutrophils % Seg Neutrophils # PT APTT D-Dimer ABG pH 7.453 H ABG pO2 107.9 H ABG HCO3 27.9 H ABG O2 Saturation ABG Base Excess 3.7 H ABG Hemoglobin 10.9 L Oxyhemoglobin Sodium Potassium Chloride Carbon Dioxide BUN Creatinine Glucose POC Glucose 174 H Lactic Acid Uric Acid Calcium Magnesium Ferritin Total Bilirubin AST Lactate Dehydrogenase Total Creatine Kinase C-Reactive Protein Total Protein Albumin TSH Urine WBC (Auto) Urine Creatinine Salicylates Acetaminophen Valproic Acid SARS-CoV-2 (PCR) 07/12/22 07/12/22 07/12/22 12:15 17:18 23:14 WBC RBC Hgb Hct MCV MCH Plt Count Seg Neutrophils % Seg Neutrophils # PT APTT D-Dimer ABG pH ABG pO2 ABG HCO3 ABG O2 Saturation ABG Base Excess ABG Hemoglobin Oxyhemoglobin Sodium Potassium Chloride Carbon Dioxide BUN Creatinine Glucose POC Glucose 154 H 154 H 167 H Lactic Acid Uric Acid Calcium Magnesium Ferritin Total Bilirubin AST Lactate Dehydrogenase Total Creatine Kinase C-Reactive Protein Total Protein Albumin TSH Urine WBC (Auto) Urine Creatinine Salicylates Acetaminophen Valproic Acid SARS-CoV-2 (PCR) 07/13/22 07/13/22 07/13/22 04:00 04:10 05:14 WBC RBC 3.17 L Hgb Hct MCV 98 H MCH 34 H Plt Count 75 L Seg Neutrophils % Seg Neutrophils # PT APTT D-Dimer ABG pH ABG pO2 ABG HCO3 ABG O2 Saturation ABG Base Excess ABG Hemoglobin Oxyhemoglobin Sodium Potassium Chloride Carbon Dioxide BUN Creatinine 0.4 L Glucose 136 H POC Glucose 140 H Lactic Acid Uric Acid Calcium Magnesium Ferritin Total Bilirubin AST Lactate Dehydrogenase Total Creatine Kinase C-Reactive Protein Total Protein Albumin TSH Urine WBC (Auto) Urine Creatinine Salicylates Acetaminophen Valproic Acid SARS-CoV-2 (PCR) 07/13/22 07/13/22 07/13/22 12:03 14:25 17:19 WBC RBC Hgb Hct MCV MCH Plt Count Seg Neutrophils % Seg Neutrophils # PT APTT D-Dimer ABG pH 7.478 H ABG pO2 118.1 H ABG HCO3 28.2 H ABG O2 Saturation ABG Base Excess 4.5 H ABG Hemoglobin Oxyhemoglobin Sodium Potassium Chloride Carbon Dioxide BUN Creatinine Glucose POC Glucose 193 H 189 H Lactic Acid Uric Acid Calcium Magnesium Ferritin Total Bilirubin AST Lactate Dehydrogenase Total Creatine Kinase C-Reactive Protein Total Protein Albumin TSH Urine WBC (Auto) Urine Creatinine Salicylates Acetaminophen Valproic Acid SARS-CoV-2 (PCR) 07/13/22 07/13/22 07/14/22 23:52 Unknown 06:18 WBC RBC Hgb Hct MCV MCH Plt Count Seg Neutrophils % Seg Neutrophils # PT APTT D-Dimer ABG pH 7.465 H ABG pO2 128.8 H ABG HCO3 29.0 H ABG O2 Saturation ABG Base Excess 4.9 H ABG Hemoglobin 10.3 L Oxyhemoglobin Sodium Potassium Chloride Carbon Dioxide BUN Creatinine Glucose POC Glucose 174 H 167 H Lactic Acid Uric Acid Calcium Magnesium Ferritin Total Bilirubin AST Lactate Dehydrogenase Total Creatine Kinase C-Reactive Protein Total Protein Albumin TSH Urine WBC (Auto) Urine Creatinine Salicylates Acetaminophen Valproic Acid SARS-CoV-2 (PCR) 07/14/22 07/14/22 07/15/22 11:34 17:20 00:25 WBC RBC Hgb Hct MCV MCH Plt Count Seg Neutrophils % Seg Neutrophils # PT APTT D-Dimer ABG pH ABG pO2 ABG HCO3 ABG O2 Saturation ABG Base Excess ABG Hemoglobin Oxyhemoglobin Sodium Potassium Chloride Carbon Dioxide BUN Creatinine Glucose POC Glucose 187 H 221 H 172 H Lactic Acid Uric Acid Calcium Magnesium Ferritin Total Bilirubin AST Lactate Dehydrogenase Total Creatine Kinase C-Reactive Protein Total Protein Albumin TSH Urine WBC (Auto) Urine Creatinine Salicylates Acetaminophen Valproic Acid SARS-CoV-2 (PCR) 07/15/22 07/15/22 07/15/22 04:00 04:00 05:49 WBC 11.4 H RBC 3.13 L Hgb Hct MCV 98 H MCH 33 H Plt Count 98 L Seg Neutrophils % Seg Neutrophils # PT APTT D-Dimer ABG pH ABG pO2 ABG HCO3 ABG O2 Saturation ABG Base Excess ABG Hemoglobin Oxyhemoglobin Sodium Potassium Chloride Carbon Dioxide 34 H BUN Creatinine 0.4 L Glucose 126 H POC Glucose 143 H Lactic Acid Uric Acid Calcium Magnesium Ferritin Total Bilirubin AST Lactate Dehydrogenase Total Creatine Kinase C-Reactive Protein Total Protein Albumin TSH Urine WBC (Auto) Urine Creatinine Salicylates Acetaminophen Valproic Acid SARS-CoV-2 (PCR) 07/15/22 11:19 WBC RBC Hgb Hct MCV MCH Plt Count Seg Neutrophils % Seg Neutrophils # PT APTT D-Dimer ABG pH ABG pO2 ABG HCO3 ABG O2 Saturation ABG Base Excess ABG Hemoglobin Oxyhemoglobin Sodium Potassium Chloride Carbon Dioxide BUN Creatinine Glucose POC Glucose 158 H Lactic Acid Uric Acid Calcium Magnesium Ferritin Total Bilirubin AST Lactate Dehydrogenase Total Creatine Kinase C-Reactive Protein Total Protein Albumin TSH Urine WBC (Auto) Urine Creatinine Salicylates Acetaminophen Valproic Acid SARS-CoV-2 (PCR)
[2022-07-16] MEDS: INSULIN LISPRO 100 UNIT/ML SUB-Q SCH ×4 (00:24→17:35)
[2022-07-16 05:00] LABS: Hematocrit 31.4 % (30.3-42.9); Hemoglobin 10.4 gm/dl (10.1-14.3); Mean Corpuscular HGB Conc 33 % (30-34); Mean Corpuscular Volume 99 fl (79-97); Platelet Count 101 K/mm3 (140-440); Red Blood Count 3.16 M/mm3 (3.65-5.03); Red Cell Distribution Width 14.7 % (13.2-15.2)
[2022-07-16 05:14] LABS: Blood Urea Nitrogen 18 mg/dL (7-17); Calcium 8.4 mg/dL (8.4-10.2); Hemolysis Index 8
[2022-07-16 05:19] LABS: BUN/Creatinine Ratio 45
[2022-07-16] MEDS: HEPARIN 5,000 UNIT/1 ML VIAL SUB-Q SCH ×2 (06:02→17:35)
[2022-07-16] MEDS: LEVOTHYROXINE 75 MCG TAB FEEDTUBE SCH (06:03)
[2022-07-16] MEDS: CHOLECALCIFEROL (VIT D3) 1000 UNIT (25 mcg) TAB FEEDTUBE SCH (10:02)
[2022-07-16] MEDS: FAMOTIDINE 20 MG TAB FEEDTUBE SCH ×2 (10:02→21:43)
[2022-07-16] MEDS: dexAMETHasone 4 MG/ML VIAL IV SCH (10:03)
[2022-07-16] MEDS: SENNOSIDES/DOCUSATE SODIUM 8.6/50 MG TAB FEEDTUBE SCH ×2 (10:04→21:44)
[2022-07-16] MEDS: VALPROIC ACID 250 MG/5 ML ORAL LIQD FEEDTUBE SCH ×2 (10:10→21:43)
--- NOTE | 2022-07-16 10:27 | Progress Note ---
Assessment and Plan 76 y/o female with acute respiratory failure secondary to altered mental status, most likely from electrolyte abnormalities seen on chemistry, found to be COVID positive. 07/16/22: Continue daily PSV trials. Will speak with family tomorrow as patient is not improving enough for conventional extubation, especially with frequent apnic events. Most likely patient will need trach and peg. 07/15/22: mental status is still unchanged. Eyes open but not tracking or following commands. Also going apnic on PSV trials. Most likely will need trach and peg given mental status has not improved. 07/12/22: Negative MRI for acute infarct. Na is normal. Continue to monitor. Daily PSV trials. Has been intubated now for 5 days. 07/11/22: for MRI today. Appreciate renal help, agree with signing off. Attempt daily PSV. Guarded prognosis. 07/10: follow up MRI. Get official EEG read but no status. Continue daily PSV trials. Guarded prognosis 07/09/22: Continue supportive measures. Continue to fix Na, if no improvement in mental state with normal sodium then will pursue MRI. Picc placed today. 07/08/22: No further sedation. 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 Consider neurology consult and may need to obtain MRI. Attempt PSV trials today. needs Picc line placed for terminal clerk access as patient is a difficult st ick. Feed patient and monitor lytes. 1. Discontinue sedation 2. Wean FiO2 for sats >88% and PaO2 greater than 60 3. Agree with fluid resuscitation, patient needs free water 4. Will follow up with family to find out exactly what patient mental status was a facility CCT 31 minutes. Subjective Date of service: 07/16/22 Principal diagnosis: Hypernatremia Interval history: No acute events. NO change in mental state. FiO2 was increased from 25-30% It was done yesterday morning during day shift after being tried on PSV and then failing. No significant desats noted. Objective Vital Signs - 12hr 07/15/22 07/15/22 07/15/22 23:00 23:24 23:39 Temperature Pulse Rate 116 H 92 H 89 Pulse Rate [ From Monitor] Respiratory 17 11 L Rate Blood Pressure 123/77 112/74 123/77 O2 Sat by Pulse 100 100 100 Oximetry 07/16/22 07/16/22 07/16/22 00:00 00:01 01:00 Temperature 98.4 F Pulse Rate 91 H 95 H 94 H Pulse Rate [ 95 H From Monitor] Respiratory 12 12 11 L Rate Blood Pressure 109/80 106/68 O2 Sat by Pulse 100 100 100 Oximetry 07/16/22 07/16/22 07/16/22 02:01 03:00 03:45 Temperature Pulse Rate 90 91 H 91 H Pulse Rate [ From Monitor] Respiratory 12 12 Rate Blood Pressure 106/68 127/73 O2 Sat by Pulse 100 100 100 Oximetry 07/16/22 07/16/22 07/16/22 04:00 05:00 06:00 Temperature 97.9 F Pulse Rate 90 106 H 90 Pulse Rate [ 90 From Monitor] Respiratory 12 10 L 15 Rate Blood Pressure 115/70 115/70 104/64 O2 Sat by Pulse 100 99 100 Oximetry 07/16/22 07/16/22 07/16/22 07:10 08:23 08:26 Temperature 98.1 F Pulse Rate 117 H 111 H Pulse Rate [ From Monitor] Respiratory 10 L Rate Blood Pressure 107/54 107/54 O2 Sat by Pulse 100 100 Oximetry 07/16/22 10:00 Temperature Pulse Rate 110 H Pulse Rate [ From Monitor] Respiratory Rate Blood Pressure 119/74 O2 Sat by Pulse 99 Oximetry Constitutional: comatose ENT: other (orally intubated) Neck: supple Effort: normal Ascultation: Bilateral: clear Percussion: Bilateral: not dull Cardiovascular: regular rate and rhythm Gastrointestinal: normoactive bowel sounds, soft Extremities: no cyanosis, no edema Neurologic: unable to assess CBC and BMP: 07/16/22 04:20 07/16/22 04:20 ABG, PT/INR, D-dimer: ABG ABG pH 7.465 pH Units (7.350-7.450) H 07/13/22 Unknown ABG pCO2 41.3 mm Hg 07/13/22 Unknown ABG pO2 128.8 mm Hg (80.0-90.0) H 07/13/22 Unknown ABG O2 Saturation 98.6 % (95.0-99.0) 07/13/22 Unknown PT/INR, D-dimer PT 15.0 Sec. (12.2-14.9) H 07/07/22 03:38 INR 1.06 (0.87-1.13) 07/07/22 03:38 D-Dimer 925.80 ng/mlDDU (0-234) H 07/12/22 04:00 Abnormal lab findings: Abnormal Labs 07/07/22 07/07/22 07/07/22 03:17 03:38 03:38 WBC RBC 5.43 H Hgb 18.2 H Hct 54.9 H MCV 101 H MCH 34 H Plt Count 104 L Seg Neutrophils % Seg Neutrophils # PT 15.0 H APTT 23.0 L D-Dimer ABG pH ABG pO2 ABG HCO3 ABG O2 Saturation ABG Base Excess ABG Hemoglobin Oxyhemoglobin Sodium Potassium Chloride Carbon Dioxide BUN Creatinine Glucose POC Glucose Lactic Acid Uric Acid Calcium Magnesium Ferritin Total Bilirubin AST Lactate Dehydrogenase Total Creatine Kinase C-Reactive Protein Total Protein Albumin TSH Urine WBC (Auto) 7.0 H Urine Creatinine Salicylates Acetaminophen Valproic Acid SARS-CoV-2 (PCR) 07/07/22 07/07/22 07/07/22 03:38 03:38 03:38 WBC RBC Hgb Hct MCV MCH Plt Count Seg Neutrophils % Seg Neutrophils # PT APTT D-Dimer ABG pH ABG pO2 ABG HCO3 ABG O2 Saturation ABG Base Excess ABG Hemoglobin Oxyhemoglobin Sodium Potassium Chloride Carbon Dioxide BUN Creatinine Glucose POC Glucose Lactic Acid Uric Acid Calcium Magnesium 3.30 H Ferritin Total Bilirubin AST Lactate Dehydrogenase Total Creatine Kinase 1826 H C-Reactive Protein Total Protein Albumin TSH Urine WBC (Auto) Urine Creatinine Salicylates < 0.3 L Acetaminophen 5.0 L Valproic Acid 7.0 L SARS-CoV-2 (PCR) 07/07/22 07/07/22 07/07/22 04:17 04:17 04:17 WBC RBC Hgb Hct MCV MCH Plt Count Seg Neutrophils % Seg Neutrophils # PT APTT D-Dimer ABG pH ABG pO2 ABG HCO3 ABG O2 Saturation ABG Base Excess ABG Hemoglobin Oxyhemoglobin Sodium 168 H* Potassium 3.2 L Chloride 122.2 H Carbon Dioxide BUN 52 H Creatinine Glucose 158 H POC Glucose Lactic Acid 3.50 H* Uric Acid Calcium 10.9 H Magnesium Ferritin Total Bilirubin 1.40 H AST 47 H Lactate Dehydrogenase Total Creatine Kinase C-Reactive Protein Total Protein Albumin TSH 12.790 H Urine WBC (Auto) Urine Creatinine Salicylates Acetaminophen Valproic Acid SARS-CoV-2 (PCR) 07/07/22 07/07/22 07/07/22 04:17 07:43 09:35 WBC RBC Hgb Hct MCV MCH Plt Count Seg Neutrophils % Seg Neutrophils # PT APTT D-Dimer ABG pH ABG pO2 377.3 H ABG HCO3 ABG O2 Saturation 99.6 H ABG Base Excess -2.5 L ABG Hemoglobin Oxyhemoglobin Sodium Potassium Chloride Carbon Dioxide BUN Creatinine Glucose POC Glucose Lactic Acid 6.30 H* Uric Acid 13.5 H Calcium Magnesium Ferritin Total Bilirubin AST Lactate Dehydrogenase Total Creatine Kinase C-Reactive Protein Total Protein Albumin TSH Urine WBC (Auto) Urine Creatinine Salicylates Acetaminophen Valproic Acid SARS-CoV-2 (PCR) 07/07/22 07/07/22 07/07/22 15:00 16:00 16:00 WBC RBC Hgb Hct MCV MCH Plt Count Seg Neutrophils % Seg Neutrophils # PT APTT D-Dimer ABG pH ABG pO2 ABG HCO3 ABG O2 Saturation ABG Base Excess ABG Hemoglobin Oxyhemoglobin Sodium 166 H* Potassium Chloride 124.8 H Carbon Dioxide 20 L BUN 41 H Creatinine Glucose 157 H POC Glucose Lactic Acid 7.00 H* Uric Acid Calcium Magnesium Ferritin Total Bilirubin AST 81 H Lactate Dehydrogenase Total Creatine Kinase C-Reactive Protein Total Protein Albumin TSH Urine WBC (Auto) Urine Creatinine Salicylates Acetaminophen Valproic Acid SARS-CoV-2 (PCR) Positive A 07/07/22 07/07/22 07/07/22 16:45 23:42 23:42 WBC RBC Hgb Hct MCV MCH Plt Count Seg Neutrophils % Seg Neutrophils # PT APTT D-Dimer ABG pH ABG pO2 ABG HCO3 ABG O2 Saturation ABG Base Excess ABG Hemoglobin Oxyhemoglobin Sodium 165 H* Potassium 3.0 L Chloride 122.8 H Carbon Dioxide BUN 38 H Creatinine Glucose 232 H POC Glucose Lactic Acid 5.60 H* Uric Acid Calcium Magnesium Ferritin Total Bilirubin AST Lactate Dehydrogenase Total Creatine Kinase C-Reactive Protein Total Protein Albumin TSH Urine WBC (Auto) Urine Creatinine 92.9 H Salicylates Acetaminophen Valproic Acid SARS-CoV-2 (PCR) 07/07/22 07/07/22 07/08/22 Unknown Unknown 05:30 WBC RBC Hgb Hct MCV MCH Plt Count Seg Neutrophils % Seg Neutrophils # PT APTT D-Dimer ABG pH 7.553 H 7.473 H ABG pO2 61.7 L 121.7 H ABG HCO3 ABG O2 Saturation 94.7 L ABG Base Excess 4.3 H ABG Hemoglobin 18.0 H Oxyhemoglobin 93.1 L Sodium 163 H* Potassium 6.3 H* D Chloride 123.7 H Carbon Dioxide BUN 42 H Creatinine Glucose 169 H POC Glucose Lactic Acid Uric Acid Calcium Magnesium Ferritin Total Bilirubin AST Lactate Dehydrogenase Total Creatine Kinase C-Reactive Protein Total Protein Albumin TSH Urine WBC (Auto) Urine Creatinine Salicylates Acetaminophen Valproic Acid SARS-CoV-2 (PCR) 07/08/22 07/08/22 07/08/22 05:36 11:21 14:54 WBC 11.1 H RBC Hgb Hct MCV 101 H MCH 33 H Plt Count 69 L Seg Neutrophils % 82.0 H Seg Neutrophils # 9.1 H PT APTT D-Dimer ABG pH ABG pO2 ABG HCO3 ABG O2 Saturation ABG Base Excess ABG Hemoglobin Oxyhemoglobin Sodium Potassium Chloride Carbon Dioxide BUN Creatinine Glucose POC Glucose 174 H 148 H Lactic Acid Uric Acid Calcium Magnesium Ferritin Total Bilirubin AST Lactate Dehydrogenase Total Creatine Kinase C-Reactive Protein Total Protein Albumin TSH Urine WBC (Auto) Urine Creatinine Salicylates Acetaminophen Valproic Acid SARS-CoV-2 (PCR) 07/08/22 07/08/22 07/08/22 14:54 14:54 14:54 WBC RBC Hgb Hct MCV MCH Plt Count Seg Neutrophils % Seg Neutrophils # PT APTT D-Dimer ABG pH ABG pO2 ABG HCO3 ABG O2 Saturation ABG Base Excess ABG Hemoglobin Oxyhemoglobin Sodium 163 H* Potassium 2.9 L* Chloride 123.7 H Carbon Dioxide BUN 30 H Creatinine Glucose 161 H POC Glucose Lactic Acid 6.10 H* Uric Acid Calcium Magnesium Ferritin Total Bilirubin AST 69 H Lactate Dehydrogenase Total Creatine Kinase 2335 H C-Reactive Protein Total Protein 5.6 L D Albumin 3.1 L TSH Urine WBC (Auto) Urine Creatinine Salicylates Acetaminophen Valproic Acid SARS-CoV-2 (PCR) 07/08/22 07/08/22 07/08/22 14:54 14:54 14:54 WBC RBC Hgb Hct MCV MCH Plt Count Seg Neutrophils % Seg Neutrophils # PT APTT D-Dimer 499.72 H ABG pH ABG pO2 ABG HCO3 ABG O2 Saturation ABG Base Excess ABG Hemoglobin Oxyhemoglobin Sodium Potassium Chloride Carbon Dioxide BUN Creatinine Glucose POC Glucose Lactic Acid Uric Acid Calcium Magnesium Ferritin 722.1 H Total Bilirubin AST Lactate Dehydrogenase 455 H Total Creatine Kinase C-Reactive Protein 1.60 H Total Protein Albumin TSH Urine WBC (Auto) Urine Creatinine Salicylates Acetaminophen Valproic Acid SARS-CoV-2 (PCR) 07/08/22 07/08/22 07/09/22 19:13 19:53 00:09 WBC RBC Hgb Hct MCV MCH Plt Count Seg Neutrophils % Seg Neutrophils # PT APTT D-Dimer ABG pH ABG pO2 ABG HCO3 ABG O2 Saturation ABG Base Excess ABG Hemoglobin Oxyhemoglobin Sodium 160 H Potassium 3.5 L D Chloride 122.0 H Carbon Dioxide 20 L BUN 28 H Creatinine Glucose 151 H POC Glucose 138 H Lactic Acid 5.70 H* Uric Acid Calcium Magnesium Ferritin Total Bilirubin AST Lactate Dehydrogenase Total Creatine Kinase C-Reactive Protein Total Protein Albumin TSH Urine WBC (Auto) Urine Creatinine Salicylates Acetaminophen Valproic Acid SARS-CoV-2 (PCR) 07/09/22 07/09/22 07/09/22 00:45 03:21 03:21 WBC RBC Hgb Hct MCV MCH Plt Count Seg Neutrophils % Seg Neutrophils # PT APTT D-Dimer ABG pH ABG pO2 ABG HCO3 ABG O2 Saturation ABG Base Excess ABG Hemoglobin Oxyhemoglobin Sodium 158 H 157 H Potassium Chloride 124.2 H 125.0 H Carbon Dioxide 20 L 20 L BUN 25 H 24 H Creatinine Glucose 147 H 169 H POC Glucose Lactic Acid 4.70 H* Uric Acid Calcium Magnesium Ferritin Total Bilirubin AST 81 H Lactate Dehydrogenase Total Creatine Kinase C-Reactive Protein Total Protein 5.7 L Albumin 2.8 L TSH Urine WBC (Auto) Urine Creatinine Salicylates Acetaminophen Valproic Acid SARS-CoV-2 (PCR) 07/09/22 07/09/22 07/09/22 04:40 05:35 08:14 WBC RBC Hgb Hct MCV 102 H MCH 33 H Plt Count 74 L Seg Neutrophils % Seg Neutrophils # PT APTT D-Dimer ABG pH ABG pO2 172.1 H ABG HCO3 ABG O2 Saturation 99.1 H ABG Base Excess -2.8 L ABG Hemoglobin Oxyhemoglobin Sodium Potassium Chloride Carbon Dioxide BUN Creatinine Glucose POC Glucose 108 H Lactic Acid Uric Acid Calcium Magnesium Ferritin Total Bilirubin AST Lactate Dehydrogenase Total Creatine Kinase C-Reactive Protein Total Protein Albumin TSH Urine WBC (Auto) Urine Creatinine Salicylates Acetaminophen Valproic Acid SARS-CoV-2 (PCR) 07/09/22 07/09/22 07/09/22 11:16 11:27 16:20 WBC RBC Hgb Hct MCV MCH Plt Count Seg Neutrophils % Seg Neutrophils # PT APTT D-Dimer ABG pH ABG pO2 ABG HCO3 ABG O2 Saturation ABG Base Excess ABG Hemoglobin Oxyhemoglobin Sodium 155 H Potassium Chloride 121.3 H Carbon Dioxide BUN 21 H Creatinine Glucose 170 H POC Glucose 173 H 190 H Lactic Acid Uric Acid Calcium Magnesium Ferritin Total Bilirubin AST Lactate Dehydrogenase Total Creatine Kinase C-Reactive Protein Total Protein Albumin TSH Urine WBC (Auto) Urine Creatinine Salicylates Acetaminophen Valproic Acid SARS-CoV-2 (PCR) 07/09/22 07/10/22 07/10/22 17:16 00:04 04:21 WBC RBC Hgb Hct MCV MCH Plt Count Seg Neutrophils % Seg Neutrophils # PT APTT D-Dimer ABG pH ABG pO2 ABG HCO3 ABG O2 Saturation ABG Base Excess ABG Hemoglobin Oxyhemoglobin Sodium 149 H 150 H Potassium Chloride 115.6 H 115.0 H Carbon Dioxide BUN 18 H Creatinine 0.5 L Glucose 207 H 178 H POC Glucose 180 H Lactic Acid Uric Acid Calcium 7.9 L Magnesium Ferritin Total Bilirubin AST 89 H Lactate Dehydrogenase 431 H Total Creatine Kinase C-Reactive Protein Total Protein 4.9 L Albumin 2.5 L TSH Urine WBC (Auto) Urine Creatinine Salicylates Acetaminophen Valproic Acid SARS-CoV-2 (PCR) 07/10/22 07/10/22 07/10/22 04:21 04:21 04:21 WBC 11.8 H RBC 3.52 L Hgb Hct MCV 99 H MCH 33 H Plt Count 67 L Seg Neutrophils % Seg Neutrophils # PT APTT D-Dimer 585.71 H ABG pH ABG pO2 ABG HCO3 ABG O2 Saturation ABG Base Excess ABG Hemoglobin Oxyhemoglobin Sodium Potassium Chloride Carbon Dioxide BUN Creatinine Glucose POC Glucose Lactic Acid Uric Acid Calcium Magnesium Ferritin 631.3 H Total Bilirubin AST Lactate Dehydrogenase Total Creatine Kinase C-Reactive Protein Total Protein Albumin TSH Urine WBC (Auto) Urine Creatinine Salicylates Acetaminophen Valproic Acid SARS-CoV-2 (PCR) 07/10/22 07/10/22 07/10/22 04:21 04:55 05:26 WBC RBC Hgb Hct MCV MCH Plt Count Seg Neutrophils % Seg Neutrophils # PT APTT D-Dimer ABG pH ABG pO2 76.8 L ABG HCO3 ABG O2 Saturation ABG Base Excess ABG Hemoglobin 10.4 L Oxyhemoglobin 94.5 L Sodium Potassium Chloride Carbon Dioxide BUN Creatinine Glucose POC Glucose 147 H Lactic Acid 2.50 H* Uric Acid Calcium Magnesium Ferritin Total Bilirubin AST Lactate Dehydrogenase Total Creatine Kinase C-Reactive Protein Total Protein Albumin TSH Urine WBC (Auto) Urine Creatinine Salicylates Acetaminophen Valproic Acid SARS-CoV-2 (PCR) 07/10/22 07/10/22 07/10/22 08:24 11:31 12:53 WBC RBC Hgb Hct MCV MCH Plt Count Seg Neutrophils % Seg Neutrophils # PT APTT D-Dimer ABG pH ABG pO2 ABG HCO3 ABG O2 Saturation ABG Base Excess ABG Hemoglobin Oxyhemoglobin Sodium Potassium Chloride 110.9 H Carbon Dioxide BUN Creatinine 0.5 L Glucose 200 H POC Glucose 166 H Lactic Acid 2.10 H* Uric Acid Calcium 8.3 L Magnesium Ferritin Total Bilirubin AST Lactate Dehydrogenase Total Creatine Kinase C-Reactive Protein Total Protein Albumin TSH Urine WBC (Auto) Urine Creatinine Salicylates Acetaminophen Valproic Acid SARS-CoV-2 (PCR) 07/10/22 07/10/22 07/10/22 17:37 18:53 23:30 WBC RBC Hgb Hct MCV MCH Plt Count Seg Neutrophils % Seg Neutrophils # PT APTT D-Dimer ABG pH ABG pO2 ABG HCO3 ABG O2 Saturation ABG Base Excess ABG Hemoglobin Oxyhemoglobin Sodium Potassium Chloride 109.5 H 110.2 H Carbon Dioxide BUN Creatinine 0.5 L 0.5 L Glucose 243 H 208 H POC Glucose 237 H Lactic Acid Uric Acid Calcium 8.1 L 8.1 L Magnesium Ferritin Total Bilirubin AST Lactate Dehydrogenase Total Creatine Kinase C-Reactive Protein Total Protein Albumin TSH Urine WBC (Auto) Urine Creatinine Salicylates Acetaminophen Valproic Acid SARS-CoV-2 (PCR) 07/10/22 07/11/22 07/11/22 23:57 04:00 04:15 WBC 11.2 H RBC Hgb Hct MCV 99 H MCH Plt Count 73 L Seg Neutrophils % Seg Neutrophils # PT APTT D-Dimer ABG pH ABG pO2 107.4 H ABG HCO3 ABG O2 Saturation ABG Base Excess ABG Hemoglobin Oxyhemoglobin Sodium Potassium Chloride Carbon Dioxide BUN Creatinine Glucose POC Glucose 195 H Lactic Acid Uric Acid Calcium Magnesium Ferritin Total Bilirubin AST Lactate Dehydrogenase Total Creatine Kinase C-Reactive Protein Total Protein Albumin TSH Urine WBC (Auto) Urine Creatinine Salicylates Acetaminophen Valproic Acid SARS-CoV-2 (PCR) 07/11/22 07/11/22 07/11/22 05:40 05:40 06:06 WBC RBC Hgb Hct MCV MCH Plt Count Seg Neutrophils % Seg Neutrophils # PT APTT D-Dimer ABG pH ABG pO2 ABG HCO3 ABG O2 Saturation ABG Base Excess ABG Hemoglobin Oxyhemoglobin Sodium Potassium Chloride 109.8 H Carbon Dioxide BUN Creatinine 0.5 L Glucose 160 H POC Glucose 145 H Lactic Acid Uric Acid Calcium 8.3 L Magnesium Ferritin Total Bilirubin AST Lactate Dehydrogenase Total Creatine Kinase 1745 H C-Reactive Protein Total Protein Albumin TSH Urine WBC (Auto) Urine Creatinine Salicylates Acetaminophen Valproic Acid SARS-CoV-2 (PCR) 07/11/22 07/11/22 07/11/22 11:55 11:59 17:44 WBC RBC Hgb Hct MCV MCH Plt Count Seg Neutrophils % Seg Neutrophils # PT APTT D-Dimer ABG pH ABG pO2 ABG HCO3 ABG O2 Saturation ABG Base Excess ABG Hemoglobin Oxyhemoglobin Sodium Potassium Chloride 107.8 H Carbon Dioxide BUN Creatinine 0.5 L Glucose 150 H POC Glucose 150 H 182 H Lactic Acid Uric Acid Calcium 8.2 L Magnesium Ferritin Total Bilirubin AST Lactate Dehydrogenase Total Creatine Kinase C-Reactive Protein Total Protein Albumin TSH Urine WBC (Auto) Urine Creatinine Salicylates Acetaminophen Valproic Acid SARS-CoV-2 (PCR) 07/11/22 07/12/22 07/12/22 17:50 00:10 00:12 WBC RBC Hgb Hct MCV MCH Plt Count Seg Neutrophils % Seg Neutrophils # PT APTT D-Dimer ABG pH ABG pO2 ABG HCO3 ABG O2 Saturation ABG Base Excess ABG Hemoglobin Oxyhemoglobin Sodium Potassium Chloride 108.4 H Carbon Dioxide BUN Creatinine 0.5 L 0.4 L Glucose 191 H 163 H POC Glucose 154 H Lactic Acid Uric Acid Calcium 8.2 L 7.9 L Magnesium Ferritin Total Bilirubin AST Lactate Dehydrogenase Total Creatine Kinase C-Reactive Protein Total Protein Albumin TSH Urine WBC (Auto) Urine Creatinine Salicylates Acetaminophen Valproic Acid SARS-CoV-2 (PCR) 07/12/22 07/12/22 07/12/22 04:00 04:00 04:00 WBC RBC Hgb Hct MCV MCH Plt Count Seg Neutrophils % Seg Neutrophils # PT APTT D-Dimer 925.80 H ABG pH ABG pO2 ABG HCO3 ABG O2 Saturation ABG Base Excess ABG Hemoglobin Oxyhemoglobin Sodium Potassium Chloride Carbon Dioxide BUN Creatinine Glucose POC Glucose Lactic Acid Uric Acid Calcium Magnesium Ferritin 519.5 H Total Bilirubin AST Lactate Dehydrogenase 444 H Total Creatine Kinase C-Reactive Protein Total Protein Albumin TSH Urine WBC (Auto) Urine Creatinine Salicylates Acetaminophen Valproic Acid SARS-CoV-2 (PCR) 07/12/22 07/12/22 07/12/22 04:00 05:00 05:03 WBC 11.7 H RBC 3.33 L Hgb Hct MCV 99 H MCH 33 H Plt Count 68 L Seg Neutrophils % Seg Neutrophils # PT APTT D-Dimer ABG pH 7.453 H ABG pO2 107.9 H ABG HCO3 27.9 H ABG O2 Saturation ABG Base Excess 3.7 H ABG Hemoglobin 10.9 L Oxyhemoglobin Sodium Potassium Chloride Carbon Dioxide BUN Creatinine Glucose POC Glucose 174 H Lactic Acid Uric Acid Calcium Magnesium Ferritin Total Bilirubin AST Lactate Dehydrogenase Total Creatine Kinase C-Reactive Protein Total Protein Albumin TSH Urine WBC (Auto) Urine Creatinine Salicylates Acetaminophen Valproic Acid SARS-CoV-2 (PCR) 07/12/22 07/12/22 07/12/22 12:15 17:18 23:14 WBC RBC Hgb Hct MCV MCH Plt Count Seg Neutrophils % Seg Neutrophils # PT APTT D-Dimer ABG pH ABG pO2 ABG HCO3 ABG O2 Saturation ABG Base Excess ABG Hemoglobin Oxyhemoglobin Sodium Potassium Chloride Carbon Dioxide BUN Creatinine Glucose POC Glucose 154 H 154 H 167 H Lactic Acid Uric Acid Calcium Magnesium Ferritin Total Bilirubin AST Lactate Dehydrogenase Total Creatine Kinase C-Reactive Protein Total Protein Albumin TSH Urine WBC (Auto) Urine Creatinine Salicylates Acetaminophen Valproic Acid SARS-CoV-2 (PCR) 07/13/22 07/13/22 07/13/22 04:00 04:10 05:14 WBC RBC 3.17 L Hgb Hct MCV 98 H MCH 34 H Plt Count 75 L Seg Neutrophils % Seg Neutrophils # PT APTT D-Dimer ABG pH ABG pO2 ABG HCO3 ABG O2 Saturation ABG Base Excess ABG Hemoglobin Oxyhemoglobin Sodium Potassium Chloride Carbon Dioxide BUN Creatinine 0.4 L Glucose 136 H POC Glucose 140 H Lactic Acid Uric Acid Calcium Magnesium Ferritin Total Bilirubin AST Lactate Dehydrogenase Total Creatine Kinase C-Reactive Protein Total Protein Albumin TSH Urine WBC (Auto) Urine Creatinine Salicylates Acetaminophen Valproic Acid SARS-CoV-2 (PCR) 07/13/22 07/13/22 07/13/22 12:03 14:25 17:19 WBC RBC Hgb Hct MCV MCH Plt Count Seg Neutrophils % Seg Neutrophils # PT APTT D-Dimer ABG pH 7.478 H ABG pO2 118.1 H ABG HCO3 28.2 H ABG O2 Saturation ABG Base Excess 4.5 H ABG Hemoglobin Oxyhemoglobin Sodium Potassium Chloride Carbon Dioxide BUN Creatinine Glucose POC Glucose 193 H 189 H Lactic Acid Uric Acid Calcium Magnesium Ferritin Total Bilirubin AST Lactate Dehydrogenase Total Creatine Kinase C-Reactive Protein Total Protein Albumin TSH Urine WBC (Auto) Urine Creatinine Salicylates Acetaminophen Valproic Acid SARS-CoV-2 (PCR) 07/13/22 07/13/22 07/14/22 23:52 Unknown 06:18 WBC RBC Hgb Hct MCV MCH Plt Count Seg Neutrophils % Seg Neutrophils # PT APTT D-Dimer ABG pH 7.465 H ABG pO2 128.8 H ABG HCO3 29.0 H ABG O2 Saturation ABG Base Excess 4.9 H ABG Hemoglobin 10.3 L Oxyhemoglobin Sodium Potassium Chloride Carbon Dioxide BUN Creatinine Glucose POC Glucose 174 H 167 H Lactic Acid Uric Acid Calcium Magnesium Ferritin Total Bilirubin AST Lactate Dehydrogenase Total Creatine Kinase C-Reactive Protein Total Protein Albumin TSH Urine WBC (Auto) Urine Creatinine Salicylates Acetaminophen Valproic Acid SARS-CoV-2 (PCR) 07/14/22 07/14/22 07/15/22 11:34 17:20 00:25 WBC RBC Hgb Hct MCV MCH Plt Count Seg Neutrophils % Seg Neutrophils # PT APTT D-Dimer ABG pH ABG pO2 ABG HCO3 ABG O2 Saturation ABG Base Excess ABG Hemoglobin Oxyhemoglobin Sodium Potassium Chloride Carbon Dioxide BUN Creatinine Glucose POC Glucose 187 H 221 H 172 H Lactic Acid Uric Acid Calcium Magnesium Ferritin Total Bilirubin AST Lactate Dehydrogenase Total Creatine Kinase C-Reactive Protein Total Protein Albumin TSH Urine WBC (Auto) Urine Creatinine Salicylates Acetaminophen Valproic Acid SARS-CoV-2 (PCR) 07/15/22 07/15/22 07/15/22 04:00 04:00 05:49 WBC 11.4 H RBC 3.13 L Hgb Hct MCV 98 H MCH 33 H Plt Count 98 L Seg Neutrophils % Seg Neutrophils # PT APTT D-Dimer ABG pH ABG pO2 ABG HCO3 ABG O2 Saturation ABG Base Excess ABG Hemoglobin Oxyhemoglobin Sodium Potassium Chloride Carbon Dioxide 34 H BUN Creatinine 0.4 L Glucose 126 H POC Glucose 143 H Lactic Acid Uric Acid Calcium Magnesium Ferritin Total Bilirubin AST Lactate Dehydrogenase Total Creatine Kinase C-Reactive Protein Total Protein Albumin TSH Urine WBC (Auto) Urine Creatinine Salicylates Acetaminophen Valproic Acid SARS-CoV-2 (PCR) 07/15/22 07/15/22 07/16/22 11:19 16:16 00:19 WBC RBC Hgb Hct MCV MCH Plt Count Seg Neutrophils % Seg Neutrophils # PT APTT D-Dimer ABG pH ABG pO2 ABG HCO3 ABG O2 Saturation ABG Base Excess ABG Hemoglobin Oxyhemoglobin Sodium Potassium Chloride Carbon Dioxide BUN Creatinine Glucose POC Glucose 158 H 227 H 153 H Lactic Acid Uric Acid Calcium Magnesium Ferritin Total Bilirubin AST Lactate Dehydrogenase Total Creatine Kinase C-Reactive Protein Total Protein Albumin TSH Urine WBC (Auto) Urine Creatinine Salicylates Acetaminophen Valproic Acid SARS-CoV-2 (PCR) 07/16/22 07/16/22 04:20 04:20 WBC RBC 3.16 L Hgb Hct MCV 99 H MCH 33 H Plt Count 101 L Seg Neutrophils % Seg Neutrophils # PT APTT D-Dimer ABG pH ABG pO2 ABG HCO3 ABG O2 Saturation ABG Base Excess ABG Hemoglobin Oxyhemoglobin Sodium Potassium Chloride Carbon Dioxide 36 H BUN 18 H Creatinine 0.4 L Glucose 139 H POC Glucose Lactic Acid Uric Acid Calcium Magnesium Ferritin Total Bilirubin AST Lactate Dehydrogenase Total Creatine Kinase C-Reactive Protein Total Protein Albumin TSH Urine WBC (Auto) Urine Creatinine Salicylates Acetaminophen Valproic Acid SARS-CoV-2 (PCR)
--- NOTE | 2022-07-16 11:24 | Progress Note ---
Assessment and Plan Cultures: SARS CoV2 PCR: Positive 07/07/2022 blood culture: No growth 07/07/2022 sputum culture: Klebsiella A/P: 76-year-old female with prior CVA, hemiplegia, aphasia, dementia, history of pulmonary embolism was [facility] the [facility] with altered mental status, hypoxia. Was seen in the ED, intubated for airway protection: #COVID-19: CXR without significant pneumonia. Procalcitonin 0.19. Lactate 4.7. CRP 1.6. S/P abx and remdesivir. #Acute hypoxic respiratory failure: On mechanical ventilation. 30% FiO2. #Acute encephalopathy: Likely metabolic, sodium was significantly elevated on admission. MRI did not show any acute abnormality. #Chronic CVA, dementia #Transaminitis: Mild, could be related to COVID-19, there was mild CPK elevation as well. Improving. Recs: -Completed Remdesivir -Completed antibiotics -Continue steroids, completes total 10 days tomorrow Vanessa Pires MD, FACP, [facility] ([facility]) O: [phone] F: [phone] C: [phone] Subjective Date of service: 07/16/22 Principal diagnosis: Hypernatremia Interval history: Afebrile. Remains on the vent. 30% FiO2. [place] is out. Objective - Exam Narrative Exam: Physical Exam: Constitutional: intubated, on the vent Head, Ears, Nose: Normocephalic, atraumatic. External ears, nose normal Eyes: Conjunctivae/corneas clear. No icterus. No ptosis. Neck: intubated Oral: intubated Cardiovascular: S1, S2 + Respiratory: AE fair bilaterally and equal GI: Soft, bowel sounds + Musculoskeletal: No pedal edema, no cyanosis. Skin: No rash or abscess Hem/Lymphatic: No palpable cervical or supraclavicular nodes. No lymphangitis Psych: no agitation Neurological: intubated, on the vent, exam limited - Constitutional Vitals: Vital Signs Temp Pulse Resp BP Pulse Ox 98.1 F 100 H 10 L 118/70 99 07/16/22 07:10 07/16/22 11:00 07/16/22 11:00 07/16/22 11:00 07/16/22 11:00 Temperature -Last 24 Hours Temperature 98.1 F Temperature 97.9 F Temperature 98.4 F Temperature 98.2 F Temperature 98.4 F Temperature 98.2 F Temperature 98.2 F - Labs CBC & Chem 7: 07/16/22 04:20 07/16/22 04:20 Labs: Abnormal lab results 07/15/22 07/15/22 07/15/22 Range/Units 00:25 05:49 11:19 RBC (3.65-5.03) M/mm3 MCV (79-97) fl MCH (28-32) pg Plt Count (140-440) K/mm3 Carbon Dioxide (22-30) mmol/L BUN (7-17) mg/dL Creatinine (0.6-1.2) mg/dL Glucose (65-100) mg/dL POC Glucose 172 H 143 H 158 H (70-105) mg/dL 07/15/22 07/16/22 07/16/22 Range/Units 16:16 00:19 04:20 RBC 3.16 L (3.65-5.03) M/mm3 MCV 99 H (79-97) fl MCH 33 H (28-32) pg Plt Count 101 L (140-440) K/mm3 Carbon Dioxide (22-30) mmol/L BUN (7-17) mg/dL Creatinine (0.6-1.2) mg/dL Glucose (65-100) mg/dL POC Glucose 227 H 153 H (70-105) mg/dL 07/16/22 Range/Units 04:20 RBC (3.65-5.03) M/mm3 MCV (79-97) fl MCH (28-32) pg Plt Count (140-440) K/mm3 Carbon Dioxide 36 H (22-30) mmol/L BUN 18 H (7-17) mg/dL Creatinine 0.4 L (0.6-1.2) mg/dL Glucose 139 H (65-100) mg/dL POC Glucose (70-105) mg/dL
--- NOTE | 2022-07-16 12:24 | Progress Note ---
Assessment and Plan Assessment and plan: This is a 76-year-old female with CVA, pulmonary embolism, hypothyroidism and JUJU admitted with electrolyte imbalances, hypoxic respiratory failure and COVID- 19 pneumonia Neuro: Acute metabolic encephalopathy, h/o CVA with hemiplegia, dysphagia, aphasia, dementia -Neurology consulted, appreciate recommendations -Reorientation as needed -Maintain sleep-wake cycle -Resume home Lipitor -As needed analgesia -CT head shows no acute intracranial hemorrhage, multiple chronic appearing infarcts including left MCA distribution, left cerebral hemisphere and within the right basal ganglia -Depakene -EEG compatible with significant diffuse encephalopathy -MRI shows no acute findings, remote infarction of the left frontal lobe and left cerebellum, moderate sequela of chronic microvascular disease Cardiac: h/o HLD -Resume home Lipitor -Blood pressure monitoring per protocol Respiratory: Acute hypoxic respiratory failure, h/o JUJU, pulmonary embolism -CCM consulted, appreciate recommendations -Intubated on 07/07 with a 7.50 ETT at 24 the lips -A.m. vent settings: CPAP 23/04 -See RT notes for titration -A.m. ABG and CXR noted -VAP bundle -SPO2 monitoring GI: NAD -24 hours +115 ml -PPI -NTR consulted for tube feedings -BR: Senokot-S : Rhabdomyolysis -Nephrology consulted, appreciate recommendations -Monitor intake and output -Free water flush -Renally dose medications -Avoid nephrotoxic medications -Trend BMP ID: COVID-19 pneumonia, lactic acidosis -Infectious disease consulted, appreciate recommendation - s/p Azithromycin 07/07-07/10, Rocephin -Decadron 10mg for 10 days () -s/p Remdesivir () -CRP 0.3, procalcitonin 0.19 -Contact/droplet precautions -f/u blood culture -Trend COVID-19 inflammatory markers -Monitor WBC and temperature curve -Prophylactic anticoagulation based on D-dimer per hospital protocol Endo: h/o hypothyroidism -Avoid hypoglycemia -SSI -Accu-Cheks q. 6 -Long-acting insulin, titrate as needed -Resume home Synthroid Heme: Thrombocytopenia -Trend CBC -Transfuse hemoglobin less than 7 -SCDs to BLE while in bed The high probability of a clinically significant, sudden or life threatening deterioration of the [multi] system(s) required my full and direct attention, intervention and personal management. The aggregate critical care time was [60] minutes. This time is in addition to time spent performing reported procedures but includes the following: [x] Data Review and interpretation [x] Patient assessment and monitoring of vital signs [x] Documentation [x] Medication orders and management Disposition Plan: icu Total Time Spent with Patient (Minutes): 60 History Interval history: This is a 76-year-old female with CVA resulting hemiplegia, dysphagia, aphasia, dementia, pulm embolism without acute cor pulmonale, hypothyroidism and JUJU who presented to the hospital on 07/07 from her longterm for altered mental status and diminished cognition and possible hypoxia via EMS. In the emergency department patient was intubated due to concern for airway protection. Recommend emergency department showed leukocytosis, hyponatremia with a sodium of 168, hypercalcemia, hypomagnesemia, elevated CK. Patient was admitted to the hospitalist service with acute hypoxic respiratory failure, COVID-19 PUI, hypernatremia, transaminitis, rhabdomyolysis with consults to CCM and nephrology: Hospital course to date: 07/08: Patient noted to be COVID-positive, started on remdesivir, Decadron, ceftriaxone azithromycin and infectious disease was consulted yesterday. This morning patient is on any sedation, PICC line to be placed. RT to attempt PSV. Started on free water flushes and tube feedings. Continues on D5 half-normal saline. 07/09: Patient remains encephalopathic, not on any sedation. Hypernatremia is improving, on FWF Q4hrs and D5w gtt per Nephro. If hypernatremia continue to improve and patient's mentation is unchanged, will get a repeat CT to r/o intracranial abnormalities. Patient remains afebrile, leukocytosis improved, and VSS. Continue current IV abx per ID. Patient failed PSV trial again today, continue PSV trial as tolerated 07/10: Remains stable on the vent, tolerating PSV trial this am. sodium continue to improve but no change in mental status. D/w CCM will get MRI brain to r/o any intracranial abnormalities, EEG also ordered to r/o seizures. Continue FWF and D5w gtt per Nephro. Continue IV steroids and current IV abx per ID. 07/11: Hypernatremia resolved, mentation is unchanged, remains on low vent setting. EEG noted, and MRI brain pending. Will consult Neurology for further recommendations. Continue daily PSV trial as tolerated. 07/12: Appears more awake this morning but still not following any commands. MRI brain with no acute findings and sodium normalized. Awaiting Neuro consult. Continue daily PSV trial as tolerated. Patient's daughter was updated via phone, all questions and concerns were addressed at this time. Medical records requested from [facility] and [facility]. 07/13: DELMI overnight. Mentation is unchanged, remains stable on the vent. Neurology consult pending. Continue vent adjustment per [facility] and daily PSV trial as tolerated. 07/14: Mentation is unchanged, remains afebrile and stable on the vent, VSS. Complete antibiotics course, still on IV steroids X3 more days. ID recommendations noted, remove corbin. Continue daily PSV trial as tolerated. 07/15: DELMI overnight, mentation unchanged, VSS. Patient failed PSV trial this am due to apnea. Continue daily PSV trial as tolerated. Possible trach and Peg per [facility]. 07/16: No acute events overnight, attempted PSV again today. [facility] to have family meeting on 07/17 to discuss trach/PEG Hospitalist Physical - Constitutional Vitals: Temp Pulse Resp BP Pulse Ox 97.9 F 92 H 11 L 104/63 99 07/16/22 12:00 07/16/22 12:00 07/16/22 12:00 07/16/22 12:00 07/16/22 12:00 General appearance: Present: other (Intubated, unresponsive, not on any sedation) - EENT Eyes: Present: PERRL, EOM intact ENT: dentition normal - Neck Neck: Absent: masses or JVD, cervical LAD - Respiratory Respiratory effort: normal Respiratory: bilateral: diminished - Cardiovascular Rhythm: regular Heart Sounds: Present: S1 & S2. Absent: systolic murmur, diastolic murmur - Extremities Extremities: no ischemia, pulses intact, pulses symmetrical, No edema, normal temperature, normal color Peripheral Pulses: within normal limits - Abdominal General gastrointestinal: soft, non-tender, non-distended, normal bowel sounds - Integumentary Integumentary: Present: warm, dry - Psychiatric Psychiatric: other - Neurologic Neurologic: other (intact cough/gag, does not follow commands or responds to painful stimuli) - Allied Health Allied health notes reviewed: nursing, RT, social work HEART Score - HEART Score Troponin: Troponin T 0.010 ng/mL (0.00-0.029) 07/07/22 04:17 Results - Labs CBC & Chem 7: 07/16/22 04:20 07/16/22 04:20 Labs: Laboratory Last Values WBC 9.6 K/mm3 (4.5-11.0) 07/16/22 04:20 RBC 3.16 M/mm3 (3.65-5.03) L 07/16/22 04:20 Hgb 10.4 gm/dl (10.1-14.3) 07/16/22 04:20 Hct 31.4 % (30.3-42.9) 07/16/22 04:20 MCV 99 fl (79-97) H 07/16/22 04:20 MCH 33 pg (28-32) H 07/16/22 04:20 MCHC 33 % (30-34) 07/16/22 04:20 RDW 14.7 % (13.2-15.2) 07/16/22 04:20 Plt Count 101 K/mm3 (140-440) L 07/16/22 04:20 Lymph % (Auto) 15.2 % (13.4-35.0) 07/08/22 14:54 [place] % (Auto) 2.7 % (0.0-7.3) 07/08/22 14:54 Eos % (Auto) 0.0 % (0.0-4.3) 07/08/22 14:54 Baso % (Auto) 0.1 % (0.0-1.8) 07/08/22 14:54 Lymph # (Auto) 1.7 K/mm3 (1.2-5.4) 07/08/22 14:54 [place] # (Auto) 0.3 K/mm3 (0.0-0.8) 07/08/22 14:54 Eos # (Auto) 0.0 K/mm3 (0.0-0.4) 07/08/22 14:54 Baso # (Auto) 0.0 K/mm3 (0.0-0.1) 07/08/22 14:54 Seg Neutrophils % 82.0 % (40.0-70.0) H 07/08/22 14:54 Seg Neutrophils # 9.1 K/mm3 (1.8-7.7) H 07/08/22 14:54 PT 15.0 Sec. (12.2-14.9) H 07/07/22 03:38 INR 1.06 (0.87-1.13) 07/07/22 03:38 APTT 23.0 Sec. (24.2-36.6) L 07/07/22 03:38 D-Dimer 925.80 ng/mlDDU (0-234) H 07/12/22 04:00 ABG pH 7.465 pH Units (7.350-7.450) H 07/13/22 Unknown ABG pCO2 41.3 mm Hg 07/13/22 Unknown ABG pO2 128.8 mm Hg (80.0-90.0) H 07/13/22 Unknown ABG HCO3 29.0 mmol/L (20.0-26.0) H 07/13/22 Unknown ABG O2 Saturation 98.6 % (95.0-99.0) 07/13/22 Unknown ABG O2 Content 14.3 (0.0-44) 07/13/22 Unknown ABG Base Excess 4.9 mmol/L (-2.0-3.0) H 07/13/22 Unknown ABG Hemoglobin 10.3 gm/dl (12.0-16.0) L 07/13/22 Unknown ABG Carboxyhemoglobin 0.9 % (0.0-5.0) 07/13/22 Unknown ABG Methemoglobin 0.7 % (0.0-1.5) 07/13/22 Unknown Oxyhemoglobin 97.0 % (95.0-99.0) 07/13/22 Unknown FiO2 30 % 07/13/22 Unknown Sodium 141 mmol/L (137-145) 07/16/22 04:20 Potassium 4.2 mmol/L (3.6-5.0) 07/16/22 04:20 Chloride 99.5 mmol/L (98-107) 07/16/22 04:20 Carbon Dioxide 36 mmol/L (22-30) H 07/16/22 04:20 Anion Gap 10 mmol/L 07/16/22 04:20 BUN 18 mg/dL (7-17) H 07/16/22 04:20 Creatinine 0.4 mg/dL (0.6-1.2) L 07/16/22 04:20 Estimated GFR > 60 ml/min 07/16/22 04:20 BUN/Creatinine Ratio 45 % 07/16/22 04:20 Glucose 139 mg/dL (65-100) H 07/16/22 04:20 POC Glucose 153 mg/dL (70-105) H 07/16/22 00:19 Lactic Acid 2.10 mmol/L (0.7-2.0) H* 07/10/22 08:24 Uric Acid 13.5 mg/dL (3.5-7.6) H 07/07/22 04:17 Calcium 8.4 mg/dL (8.4-10.2) 07/16/22 04:20 Phosphorus 2.90 mg/dL (2.5-4.5) 07/16/22 04:20 Magnesium 1.80 mg/dL (1.7-2.3) 07/16/22 04:20 Ferritin 519.5 ng/mL (10.0-200.0) H 07/12/22 04:00 Total Bilirubin 0.30 mg/dL (0.1-1.2) 07/10/22 04:21 AST 89 units/L (5-40) H 07/10/22 04:21 ALT 53 units/L (7-56) 07/10/22 04:21 Alkaline Phosphatase 83 units/L (35-129) 07/10/22 04:21 Ammonia 32.0 umol/L (25-60) 07/07/22 04:17 Lactate Dehydrogenase 444 units/L (91-180) H 07/12/22 04:00 Total Creatine Kinase 1745 units/L (30-135) H 07/11/22 05:40 Troponin T 0.010 ng/mL (0.00-0.029) 07/07/22 04:17 C-Reactive Protein 0.30 mg/dL (0.00-1.30) 07/12/22 04:00 Total Protein 4.9 g/dL (6.3-8.2) L 07/10/22 04:21 Albumin 2.5 g/dL (3.9-5) L 07/10/22 04:21 Albumin/Globulin Ratio 1.0 % 07/10/22 04:21 Procalcitonin 0.19 ng/mL (<0.15) 07/08/22 14:54 TSH 12.790 mlU/mL (0.270-4.200) H 07/07/22 04:17 Free T4 0.78 ng/dL (0.76-1.46) 07/07/22 04:17 Total Cortisol 47.9 mcg/dL () 07/07/22 07:43 Urine Color Yellow (Yellow) 07/07/22 03:17 Urine Turbidity Slightly cloudy (Clear) 07/07/22 03:17 Specific [place] (Man) 1.015 (1.003-1.030) 07/07/22 03:17 Ur Protein (Man) 1+ mg/dL (Negative) 07/07/22 03:17 Ur Ketones (Man) Negative (Negative) 07/07/22 03:17 Ur Nitrite (Man) Negative (Negative) 07/07/22 03:17 Urine Bilirubin (Man) Negative (Negative) 07/07/22 03:17 Leukocyte Esterase (Man) Negative (Negative) 07/07/22 03:17 Urine WBC (Auto) 7.0 /HPF (0.0-6.0) H 07/07/22 03:17 Urine RBC (Auto) 1.0 /HPF (0.0-6.0) 07/07/22 03:17 U Epithel Cells (Auto) 4.0 /HPF (0-13.0) 07/07/22 03:17 Urine Bacteria (Auto) 3+ /HPF (Negative) 07/07/22 03:17 Urine RBC (Manual) 3+ (Negative) 07/07/22 03:17 Urine Mucus 3+ /HPF 07/07/22 03:17 Urine Osmolality 744 Mosm/kg 07/07/22 16:45 Urine Creatinine 92.9 mg/dL (0.1-20.0) H 07/07/22 16:45 Urine Sodium 109 mmol/L 07/07/22 16:45 Salicylates < 0.3 mg/dL (2.8-20.0) L 07/07/22 03:38 Urine Opiates Screen Presumptive negative 07/07/22 03:17 Urine Methadone Screen Presumptive negative 07/07/22 03:17 Acetaminophen 5.0 ug/mL (10.0-30.0) L 07/07/22 03:38 Ur Barbiturates Screen Presumptive negative 07/07/22 03:17 Valproic Acid 7.0 ug/mL (50-100) L 07/07/22 03:38 Ur Phencyclidine Scrn Presumptive negative 07/07/22 03:17 Ur Amphetamines Screen Presumptive negative 07/07/22 03:17 U Benzodiazepines Scrn Presumptive negative 07/07/22 03:17 Urine Cocaine Screen Presumptive negative 07/07/22 03:17 U Marijuana (THC) Screen Presumptive negative 07/07/22 03:17 Drugs of Abuse Note Disclamer 07/07/22 03:17 Plasma/Serum Alcohol < 0.01 % (0-0.07) 07/07/22 03:38 SARS-CoV-2 (PCR) Positive (Negative) A 07/07/22 15:00 [place]/IV: Voiding Method External Female Catheter Active Medications - Current Medications Current Medications: Generic Name Dose Route Start Last Admin Trade Name Freq PRN Reason Stop Dose Admin Acetaminophen 650 mg 07/13/22 12:00 Acetaminophen 325 Mg/10.15 Ml Oral Liqd Unit Dose FEEDTUBE Q6H PRN Pain MILD(1-3)/Fever >100.5/LEE Atorvastatin Calcium 80 mg 07/10/22 22:00 07/15/22 22:30 Atorvastatin 40 Mg Tab FEEDTUBE 80 mg QHS ERROL Administration Cholecalciferol 1,000 unit 07/10/22 10:00 07/16/22 10:02 Cholecalciferol (Vit D3) 1000 Unit (25 Mcg) Tab FEEDTUBE 1,000 unit QDAY ERROL Administration Dexamethasone 6 mg 07/08/22 10:00 07/16/22 10:03 Dexamethasone 4 Mg/Ml Vial IV 07/17/22 10:01 6 mg Q24HR ERROL Administration Dextrose 50 ml 07/09/22 11:42 Dextrose 50% In Water (25gm) 50 Ml Syringe IV Q30MIN PRN Hypoglycemia Protocol Famotidine 20 mg 07/09/22 22:00 07/16/22 10:02 Famotidine 20 Mg Tab FEEDTUBE 20 mg BID ERROL Administration Heparin Sodium (Porcine) 5,000 unit 07/08/22 06:00 07/16/22 06:02 Heparin 5,000 Unit/1 Ml Vial SUB-Q 5,000 unit Q12H ERROL Administration Hydrophilic Ointment 1 applic 07/07/22 02:48 Lip Therapy Vaseline TP Q2HR PRN Dry Lips Insulin Human Lispro 0 unit 07/09/22 12:00 07/16/22 06:01 Insulin Lispro 100 Unit/Ml SUB-Q Not Given Q6HR ERROL Protocol Levothyroxine Sodium 75 mcg 07/11/22 06:00 07/16/22 06:03 Levothyroxine 75 Mcg Tab FEEDTUBE 75 mcg QAM@0600 ERROL Administration Multi-Ingred Cream/Lotion/Oil/Oint 1 applic 07/07/22 02:48 Mineral Oil/Petrolatum, White Ophth Oint 3.5 Gm OU Q4HR PRN Dry Eye(s) Senna/Docusate Sodium 1 tab 07/07/22 10:00 07/16/22 10:04 Sennosides/Docusate Sodium 8.6/50 Mg Tab FEEDTUBE Not Given BID ERROL Sodium Chloride 10 ml 07/07/22 13:00 07/16/22 10:03 Sodium Chloride 0.9% 10 Ml Flush Syringe IV 10 ml BID ERROL Administration Sodium Chloride 10 ml 07/07/22 12:09 Sodium Chloride 0.9% 10 Ml Flush Syringe IV PRN PRN LINE FLUSH Valproic Acid 250 mg 07/10/22 22:00 07/16/22 10:10 Valproic Acid 250 Mg/5 Ml Oral Liqd FEEDTUBE 250 mg Q12H ERROL Administration Nutrition/Malnutrition Assess - Dietary Evaluation Nutrition/Malnutrition Findings: Nutrition Notes Start: 07/07/22 13:24 Freq: Status: Active Protocol: Document 07/12/22 15:47 [facility] (Rec: 07/12/22 15:56 [facility] [id number]) Nutrition Notes Initial or Follow up Brief Note Current Diet TF - Vital AF 1.2 at 55ml/hr Labs/Tests BG 163 Na 143 K 3.9 Pertinent Medications Reviewed Height 5 ft 6 in Weight 95.254 kg [place] Body Weight (kg) 59.09 BMI 33.9 Subjective/Other Information Pt remains on vent support. Observed TF infusing at 45ml/ hr (15:10). Percent of energy/protein needs met: 74% energy 82% pro Burn Absent Trauma Absent #1 Nutrition Diagnosis Inadequate oral intake Diagnosis Progress(for reassessment Continues documentation) Is patient on ventilator? Yes Is Patient Ambulatory and/or Out of Bed No REE-(Mcgregor-St. Jeor-confined to bed) 1763.208 Kcal/Kg value to use for calculation 15 Approximate Energy Requirements Using 1429 kcal/Kg Calculation Used for Recommendations Kcal/kg Additional Notes Pro needs 1.3g/kg adjBW: 99g/ day Fluid needs 1ml/kcal Nutrition Intervention Nutrition Support: Decrease TF goal rate to 50ml/ hr with 75ml/hr q4h. Kcal 1,440 Protein (gm) 90 Fluid (mL) 973 Goal #1 TF tolerance Goal #2 TF to meet 70-80% energy and at least 75% pro needs Follow-Up By: 07/17/22 Additional Comments F/U: TF goal rate/tolerance, vent status, wt
[2022-07-17] MEDS: INSULIN LISPRO 100 UNIT/ML SUB-Q SCH ×5 (01:31→23:54)
[2022-07-17] MEDS: HEPARIN 5,000 UNIT/1 ML VIAL SUB-Q SCH ×2 (05:53→17:56)
[2022-07-17] MEDS: LEVOTHYROXINE 75 MCG TAB FEEDTUBE SCH (05:54)
--- NOTE | 2022-07-17 09:31 | Progress Note ---
Assessment and Plan 76 y/o female with acute respiratory failure secondary to altered mental status, most likely from electrolyte abnormalities seen on chemistry, found to be COVID positive. 07/17/22: steroids end today. Continue daily PSV trials. Will speak with family about next steps as today is day 10 of intubation and it does not appear that conventional extubation is in the near future. 07/16/22: Continue daily PSV trials. Will speak with family tomorrow as patient is not improving enough for conventional extubation, especially with frequent ap hay events. Most likely patient will need trach and peg. 07/15/22: mental status is still unchanged. Eyes open but not tracking or following commands. Also going apnic on PSV trials. Most likely will need trach and peg given mental status has not improved. 07/12/22: Negative MRI for acute infarct. Na is normal. Continue to monitor. Daily PSV trials. Has been intubated now for 5 days. 07/11/22: for MRI today. Appreciate renal help, agree with signing off. Attempt daily PSV. Guarded prognosis. 07/10: follow up MRI. Get official EEG read but no status. Continue daily PSV trials. Guarded prognosis 07/09/22: Continue supportive measures. Continue to fix Na, if no improvement in mental state with normal sodium then will pursue MRI. Picc placed today. 07/08/22: No further sedation. 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 Consider neurology consult and may need to obtain MRI. Attempt PSV trials today. needs Picc line placed for bed bug exterminator access as patient is a difficult stick. Feed patient and monitor lytes. 1. Discontinue sedation 2. Wean FiO2 for sats >88% and PaO2 greater than 60 3. Agree with fluid resuscitation, patient needs free water 4. Will follow up with family to find out exactly what patient mental status was a facility CCT 31 minutes. Subjective Date of service: 07/17/22 Principal diagnosis: Hypernatremia Interval history: no acute events. No changes in mental status. Did not last on PSV yesterday secondary to apnic spells. Objective Vital Signs - 12hr 07/16/22 07/16/22 07/16/22 22:00 22:01 23:00 Temperature Pulse Rate 111 H 113 H 102 H Pulse Rate [ From Monitor] Respiratory 12 11 L 12 Rate Blood Pressure 113/91 110/71 O2 Sat by Pulse 99 100 99 Oximetry 07/16/22 07/17/22 07/17/22 23:53 00:00 01:00 Temperature 98.1 F Pulse Rate 103 H 106 H 106 H Pulse Rate [ 106 H From Monitor] Respiratory 14 13 Rate Blood Pressure 110/71 113/91 124/70 O2 Sat by Pulse 99 100 99 Oximetry 07/17/22 07/17/22 07/17/22 02:01 03:00 04:00 Temperature 98.0 F Pulse Rate 103 H 100 H 98 H Pulse Rate [ 106 H From Monitor] Respiratory 13 12 14 Rate Blood Pressure 113/61 110/68 106/60 O2 Sat by Pulse 99 99 100 Oximetry 07/17/22 07/17/22 07/17/22 04:22 05:01 06:00 Temperature Pulse Rate 110 H 104 H 85 Pulse Rate [ From Monitor] Respiratory 14 12 Rate Blood Pressure 106/60 123/71 96/58 O2 Sat by Pulse 100 100 100 Oximetry 07/17/22 07:47 Temperature Pulse Rate 95 H Pulse Rate [ From Monitor] Respiratory Rate Blood Pressure 94/57 O2 Sat by Pulse 100 Oximetry Constitutional: comatose ENT: other (orally intubated) Neck: supple Effort: normal Ascultation: Bilateral: clear Percussion: Bilateral: not dull Cardiovascular: regular rate and rhythm Gastrointestinal: normoactive bowel sounds, soft Extremities: no cyanosis, no edema Neurologic: unable to assess CBC and BMP: 07/16/22 04:20 07/16/22 04:20 ABG, PT/INR, D-dimer: ABG ABG pH 7.465 pH Units (7.350-7.450) H 07/13/22 Unknown ABG pCO2 41.3 mm Hg 07/13/22 Unknown ABG pO2 128.8 mm Hg (80.0-90.0) H 07/13/22 Unknown ABG O2 Saturation 98.6 % (95.0-99.0) 07/13/22 Unknown PT/INR, D-dimer PT 15.0 Sec. (12.2-14.9) H 07/07/22 03:38 INR 1.06 (0.87-1.13) 07/07/22 03:38 D-Dimer 925.80 ng/mlDDU (0-234) H 07/12/22 04:00 Abnormal lab findings: Abnormal Labs 07/07/22 07/07/22 07/07/22 03:17 03:38 03:38 WBC RBC 5.43 H Hgb 18.2 H Hct 54.9 H MCV 101 H MCH 34 H Plt Count 104 L Seg Neutrophils % Seg Neutrophils # PT 15.0 H APTT 23.0 L D-Dimer ABG pH ABG pO2 ABG HCO3 ABG O2 Saturation ABG Base Excess ABG Hemoglobin Oxyhemoglobin Sodium Potassium Chloride Carbon Dioxide BUN Creatinine Glucose POC Glucose Lactic Acid Uric Acid Calcium Magnesium Ferritin Total Bilirubin AST Lactate Dehydrogenase Total Creatine Kinase C-Reactive Protein Total Protein Albumin TSH Urine WBC (Auto) 7.0 H Urine Creatinine Salicylates Acetaminophen Valproic Acid SARS-CoV-2 (PCR) 07/07/22 07/07/22 07/07/22 03:38 03:38 03:38 WBC RBC Hgb Hct MCV MCH Plt Count Seg Neutrophils % Seg Neutrophils # PT APTT D-Dimer ABG pH ABG pO2 ABG HCO3 ABG O2 Saturation ABG Base Excess ABG Hemoglobin Oxyhemoglobin Sodium Potassium Chloride Carbon Dioxide BUN Creatinine Glucose POC Glucose Lactic Acid Uric Acid Calcium Magnesium 3.30 H Ferritin Total Bilirubin AST Lactate Dehydrogenase Total Creatine Kinase 1826 H C-Reactive Protein Total Protein Albumin TSH Urine WBC (Auto) Urine Creatinine Salicylates < 0.3 L Acetaminophen 5.0 L Valproic Acid 7.0 L SARS-CoV-2 (PCR) 07/07/22 07/07/22 07/07/22 04:17 04:17 04:17 WBC RBC Hgb Hct MCV MCH Plt Count Seg Neutrophils % Seg Neutrophils # PT APTT D-Dimer ABG pH ABG pO2 ABG HCO3 ABG O2 Saturation ABG Base Excess ABG Hemoglobin Oxyhemoglobin Sodium 168 H* Potassium 3.2 L Chloride 122.2 H Carbon Dioxide BUN 52 H Creatinine Glucose 158 H POC Glucose Lactic Acid 3.50 H* Uric Acid Calcium 10.9 H Magnesium Ferritin Total Bilirubin 1.40 H AST 47 H Lactate Dehydrogenase Total Creatine Kinase C-Reactive Protein Total Protein Albumin TSH 12.790 H Urine WBC (Auto) Urine Creatinine Salicylates Acetaminophen Valproic Acid SARS-CoV-2 (PCR) 07/07/22 07/07/22 07/07/22 04:17 07:43 09:35 WBC RBC Hgb Hct MCV MCH Plt Count Seg Neutrophils % Seg Neutrophils # PT APTT D-Dimer ABG pH ABG pO2 377.3 H ABG HCO3 ABG O2 Saturation 99.6 H ABG Base Excess -2.5 L ABG Hemoglobin Oxyhemoglobin Sodium Potassium Chloride Carbon Dioxide BUN Creatinine Glucose POC Glucose Lactic Acid 6.30 H* Uric Acid 13.5 H Calcium Magnesium Ferritin Total Bilirubin AST Lactate Dehydrogenase Total Creatine Kinase C-Reactive Protein Total Protein Albumin TSH Urine WBC (Auto) Urine Creatinine Salicylates Acetaminophen Valproic Acid SARS-CoV-2 (PCR) 07/07/22 07/07/22 07/07/22 15:00 16:00 16:00 WBC RBC Hgb Hct MCV MCH Plt Count Seg Neutrophils % Seg Neutrophils # PT APTT D-Dimer ABG pH ABG pO2 ABG HCO3 ABG O2 Saturation ABG Base Excess ABG Hemoglobin Oxyhemoglobin Sodium 166 H* Potassium Chloride 124.8 H Carbon Dioxide 20 L BUN 41 H Creatinine Glucose 157 H POC Glucose Lactic Acid 7.00 H* Uric Acid Calcium Magnesium Ferritin Total Bilirubin AST 81 H Lactate Dehydrogenase Total Creatine Kinase C-Reactive Protein Total Protein Albumin TSH Urine WBC (Auto) Urine Creatinine Salicylates Acetaminophen Valproic Acid SARS-CoV-2 (PCR) Positive A 07/07/22 07/07/22 07/07/22 16:45 23:42 23:42 WBC RBC Hgb Hct MCV MCH Plt Count Seg Neutrophils % Seg Neutrophils # PT APTT D-Dimer ABG pH ABG pO2 ABG HCO3 ABG O2 Saturation ABG Base Excess ABG Hemoglobin Oxyhemoglobin Sodium 165 H* Potassium 3.0 L Chloride 122.8 H Carbon Dioxide BUN 38 H Creatinine Glucose 232 H POC Glucose Lactic Acid 5.60 H* Uric Acid Calcium Magnesium Ferritin Total Bilirubin AST Lactate Dehydrogenase Total Creatine Kinase C-Reactive Protein Total Protein Albumin TSH Urine WBC (Auto) Urine Creatinine 92.9 H Salicylates Acetaminophen Valproic Acid SARS-CoV-2 (PCR) 07/07/22 07/07/22 07/08/22 Unknown Unknown 05:30 WBC RBC Hgb Hct MCV MCH Plt Count Seg Neutrophils % Seg Neutrophils # PT APTT D-Dimer ABG pH 7.553 H 7.473 H ABG pO2 61.7 L 121.7 H ABG HCO3 ABG O2 Saturation 94.7 L ABG Base Excess 4.3 H ABG Hemoglobin 18.0 H Oxyhemoglobin 93.1 L Sodium 163 H* Potassium 6.3 H* D Chloride 123.7 H Carbon Dioxide BUN 42 H Creatinine Glucose 169 H POC Glucose Lactic Acid Uric Acid Calcium Magnesium Ferritin Total Bilirubin AST Lactate Dehydrogenase Total Creatine Kinase C-Reactive Protein Total Protein Albumin TSH Urine WBC (Auto) Urine Creatinine Salicylates Acetaminophen Valproic Acid SARS-CoV-2 (PCR) 07/08/22 07/08/22 07/08/22 05:36 11:21 14:54 WBC 11.1 H RBC Hgb Hct MCV 101 H MCH 33 H Plt Count 69 L Seg Neutrophils % 82.0 H Seg Neutrophils # 9.1 H PT APTT D-Dimer ABG pH ABG pO2 ABG HCO3 ABG O2 Saturation ABG Base Excess ABG Hemoglobin Oxyhemoglobin Sodium Potassium Chloride Carbon Dioxide BUN Creatinine Glucose POC Glucose 174 H 148 H Lactic Acid Uric Acid Calcium Magnesium Ferritin Total Bilirubin AST Lactate Dehydrogenase Total Creatine Kinase C-Reactive Protein Total Protein Albumin TSH Urine WBC (Auto) Urine Creatinine Salicylates Acetaminophen Valproic Acid SARS-CoV-2 (PCR) 07/08/22 07/08/22 07/08/22 14:54 14:54 14:54 WBC RBC Hgb Hct MCV MCH Plt Count Seg Neutrophils % Seg Neutrophils # PT APTT D-Dimer ABG pH ABG pO2 ABG HCO3 ABG O2 Saturation ABG Base Excess ABG Hemoglobin Oxyhemoglobin Sodium 163 H* Potassium 2.9 L* Chloride 123.7 H Carbon Dioxide BUN 30 H Creatinine Glucose 161 H POC Glucose Lactic Acid 6.10 H* Uric Acid Calcium Magnesium Ferritin Total Bilirubin AST 69 H Lactate Dehydrogenase Total Creatine Kinase 2335 H C-Reactive Protein Total Protein 5.6 L D Albumin 3.1 L TSH Urine WBC (Auto) Urine Creatinine Salicylates Acetaminophen Valproic Acid SARS-CoV-2 (PCR) 07/08/22 07/08/22 07/08/22 14:54 14:54 14:54 WBC RBC Hgb Hct MCV MCH Plt Count Seg Neutrophils % Seg Neutrophils # PT APTT D-Dimer 499.72 H ABG pH ABG pO2 ABG HCO3 ABG O2 Saturation ABG Base Excess ABG Hemoglobin Oxyhemoglobin Sodium Potassium Chloride Carbon Dioxide BUN Creatinine Glucose POC Glucose Lactic Acid Uric Acid Calcium Magnesium Ferritin 722.1 H Total Bilirubin AST Lactate Dehydrogenase 455 H Total Creatine Kinase C-Reactive Protein 1.60 H Total Protein Albumin TSH Urine WBC (Auto) Urine Creatinine Salicylates Acetaminophen Valproic Acid SARS-CoV-2 (PCR) 07/08/22 07/08/22 07/09/22 19:13 19:53 00:09 WBC RBC Hgb Hct MCV MCH Plt Count Seg Neutrophils % Seg Neutrophils # PT APTT D-Dimer ABG pH ABG pO2 ABG HCO3 ABG O2 Saturation ABG Base Excess ABG Hemoglobin Oxyhemoglobin Sodium 160 H Potassium 3.5 L D Chloride 122.0 H Carbon Dioxide 20 L BUN 28 H Creatinine Glucose 151 H POC Glucose 138 H Lactic Acid 5.70 H* Uric Acid Calcium Magnesium Ferritin Total Bilirubin AST Lactate Dehydrogenase Total Creatine Kinase C-Reactive Protein Total Protein Albumin TSH Urine WBC (Auto) Urine Creatinine Salicylates Acetaminophen Valproic Acid SARS-CoV-2 (PCR) 07/09/22 07/09/22 07/09/22 00:45 03:21 03:21 WBC RBC Hgb Hct MCV MCH Plt Count Seg Neutrophils % Seg Neutrophils # PT APTT D-Dimer ABG pH ABG pO2 ABG HCO3 ABG O2 Saturation ABG Base Excess ABG Hemoglobin Oxyhemoglobin Sodium 158 H 157 H Potassium Chloride 124.2 H 125.0 H Carbon Dioxide 20 L 20 L BUN 25 H 24 H Creatinine Glucose 147 H 169 H POC Glucose Lactic Acid 4.70 H* Uric Acid Calcium Magnesium Ferritin Total Bilirubin AST 81 H Lactate Dehydrogenase Total Creatine Kinase C-Reactive Protein Total Protein 5.7 L Albumin 2.8 L TSH Urine WBC (Auto) Urine Creatinine Salicylates Acetaminophen Valproic Acid SARS-CoV-2 (PCR) 07/09/22 07/09/22 07/09/22 04:40 05:35 08:14 WBC RBC Hgb Hct MCV 102 H MCH 33 H Plt Count 74 L Seg Neutrophils % Seg Neutrophils # PT APTT D-Dimer ABG pH ABG pO2 172.1 H ABG HCO3 ABG O2 Saturation 99.1 H ABG Base Excess -2.8 L ABG Hemoglobin Oxyhemoglobin Sodium Potassium Chloride Carbon Dioxide BUN Creatinine Glucose POC Glucose 108 H Lactic Acid Uric Acid Calcium Magnesium Ferritin Total Bilirubin AST Lactate Dehydrogenase Total Creatine Kinase C-Reactive Protein Total Protein Albumin TSH Urine WBC (Auto) Urine Creatinine Salicylates Acetaminophen Valproic Acid SARS-CoV-2 (PCR) 07/09/22 07/09/22 07/09/22 11:16 11:27 16:20 WBC RBC Hgb Hct MCV MCH Plt Count Seg Neutrophils % Seg Neutrophils # PT APTT D-Dimer ABG pH ABG pO2 ABG HCO3 ABG O2 Saturation ABG Base Excess ABG Hemoglobin Oxyhemoglobin Sodium 155 H Potassium Chloride 121.3 H Carbon Dioxide BUN 21 H Creatinine Glucose 170 H POC Glucose 173 H 190 H Lactic Acid Uric Acid Calcium Magnesium Ferritin Total Bilirubin AST Lactate Dehydrogenase Total Creatine Kinase C-Reactive Protein Total Protein Albumin TSH Urine WBC (Auto) Urine Creatinine Salicylates Acetaminophen Valproic Acid SARS-CoV-2 (PCR) 07/09/22 07/10/22 07/10/22 17:16 00:04 04:21 WBC RBC Hgb Hct MCV MCH Plt Count Seg Neutrophils % Seg Neutrophils # PT APTT D-Dimer ABG pH ABG pO2 ABG HCO3 ABG O2 Saturation ABG Base Excess ABG Hemoglobin Oxyhemoglobin Sodium 149 H 150 H Potassium Chloride 115.6 H 115.0 H Carbon Dioxide BUN 18 H Creatinine 0.5 L Glucose 207 H 178 H POC Glucose 180 H Lactic Acid Uric Acid Calcium 7.9 L Magnesium Ferritin Total Bilirubin AST 89 H Lactate Dehydrogenase 431 H Total Creatine Kinase C-Reactive Protein Total Protein 4.9 L Albumin 2.5 L TSH Urine WBC (Auto) Urine Creatinine Salicylates Acetaminophen Valproic Acid SARS-CoV-2 (PCR) 07/10/22 07/10/22 07/10/22 04:21 04:21 04:21 WBC 11.8 H RBC 3.52 L Hgb Hct MCV 99 H MCH 33 H Plt Count 67 L Seg Neutrophils % Seg Neutrophils # PT APTT D-Dimer 585.71 H ABG pH ABG pO2 ABG HCO3 ABG O2 Saturation ABG Base Excess ABG Hemoglobin Oxyhemoglobin Sodium Potassium Chloride Carbon Dioxide BUN Creatinine Glucose POC Glucose Lactic Acid Uric Acid Calcium Magnesium Ferritin 631.3 H Total Bilirubin AST Lactate Dehydrogenase Total Creatine Kinase C-Reactive Protein Total Protein Albumin TSH Urine WBC (Auto) Urine Creatinine Salicylates Acetaminophen Valproic Acid SARS-CoV-2 (PCR) 07/10/22 07/10/22 07/10/22 04:21 04:55 05:26 WBC RBC Hgb Hct MCV MCH Plt Count Seg Neutrophils % Seg Neutrophils # PT APTT D-Dimer ABG pH ABG pO2 76.8 L ABG HCO3 ABG O2 Saturation ABG Base Excess ABG Hemoglobin 10.4 L Oxyhemoglobin 94.5 L Sodium Potassium Chloride Carbon Dioxide BUN Creatinine Glucose POC Glucose 147 H Lactic Acid 2.50 H* Uric Acid Calcium Magnesium Ferritin Total Bilirubin AST Lactate Dehydrogenase Total Creatine Kinase C-Reactive Protein Total Protein Albumin TSH Urine WBC (Auto) Urine Creatinine Salicylates Acetaminophen Valproic Acid SARS-CoV-2 (PCR) 07/10/22 07/10/22 07/10/22 08:24 11:31 12:53 WBC RBC Hgb Hct MCV MCH Plt Count Seg Neutrophils % Seg Neutrophils # PT APTT D-Dimer ABG pH ABG pO2 ABG HCO3 ABG O2 Saturation ABG Base Excess ABG Hemoglobin Oxyhemoglobin Sodium Potassium Chloride 110.9 H Carbon Dioxide BUN Creatinine 0.5 L Glucose 200 H POC Glucose 166 H Lactic Acid 2.10 H* Uric Acid Calcium 8.3 L Magnesium Ferritin Total Bilirubin AST Lactate Dehydrogenase Total Creatine Kinase C-Reactive Protein Total Protein Albumin TSH Urine WBC (Auto) Urine Creatinine Salicylates Acetaminophen Valproic Acid SARS-CoV-2 (PCR) 07/10/22 07/10/22 07/10/22 17:37 18:53 23:30 WBC RBC Hgb Hct MCV MCH Plt Count Seg Neutrophils % Seg Neutrophils # PT APTT D-Dimer ABG pH ABG pO2 ABG HCO3 ABG O2 Saturation ABG Base Excess ABG Hemoglobin Oxyhemoglobin Sodium Potassium Chloride 109.5 H 110.2 H Carbon Dioxide BUN Creatinine 0.5 L 0.5 L Glucose 243 H 208 H POC Glucose 237 H Lactic Acid Uric Acid Calcium 8.1 L 8.1 L Magnesium Ferritin Total Bilirubin AST Lactate Dehydrogenase Total Creatine Kinase C-Reactive Protein Total Protein Albumin TSH Urine WBC (Auto) Urine Creatinine Salicylates Acetaminophen Valproic Acid SARS-CoV-2 (PCR) 07/10/22 07/11/22 07/11/22 23:57 04:00 04:15 WBC 11.2 H RBC Hgb Hct MCV 99 H MCH Plt Count 73 L Seg Neutrophils % Seg Neutrophils # PT APTT D-Dimer ABG pH ABG pO2 107.4 H ABG HCO3 ABG O2 Saturation ABG Base Excess ABG Hemoglobin Oxyhemoglobin Sodium Potassium Chloride Carbon Dioxide BUN Creatinine Glucose POC Glucose 195 H Lactic Acid Uric Acid Calcium Magnesium Ferritin Total Bilirubin AST Lactate Dehydrogenase Total Creatine Kinase C-Reactive Protein Total Protein Albumin TSH Urine WBC (Auto) Urine Creatinine Salicylates Acetaminophen Valproic Acid SARS-CoV-2 (PCR) 07/11/22 07/11/22 07/11/22 05:40 05:40 06:06 WBC RBC Hgb Hct MCV MCH Plt Count Seg Neutrophils % Seg Neutrophils # PT APTT D-Dimer ABG pH ABG pO2 ABG HCO3 ABG O2 Saturation ABG Base Excess ABG Hemoglobin Oxyhemoglobin Sodium Potassium Chloride 109.8 H Carbon Dioxide BUN Creatinine 0.5 L Glucose 160 H POC Glucose 145 H Lactic Acid Uric Acid Calcium 8.3 L Magnesium Ferritin Total Bilirubin AST Lactate Dehydrogenase Total Creatine Kinase 1745 H C-Reactive Protein Total Protein Albumin TSH Urine WBC (Auto) Urine Creatinine Salicylates Acetaminophen Valproic Acid SARS-CoV-2 (PCR) 07/11/22 07/11/22 07/11/22 11:55 11:59 17:44 WBC RBC Hgb Hct MCV MCH Plt Count Seg Neutrophils % Seg Neutrophils # PT APTT D-Dimer ABG pH ABG pO2 ABG HCO3 ABG O2 Saturation ABG Base Excess ABG Hemoglobin Oxyhemoglobin Sodium Potassium Chloride 107.8 H Carbon Dioxide BUN Creatinine 0.5 L Glucose 150 H POC Glucose 150 H 182 H Lactic Acid Uric Acid Calcium 8.2 L Magnesium Ferritin Total Bilirubin AST Lactate Dehydrogenase Total Creatine Kinase C-Reactive Protein Total Protein Albumin TSH Urine WBC (Auto) Urine Creatinine Salicylates Acetaminophen Valproic Acid SARS-CoV-2 (PCR) 07/11/22 07/12/22 07/12/22 17:50 00:10 00:12 WBC RBC Hgb Hct MCV MCH Plt Count Seg Neutrophils % Seg Neutrophils # PT APTT D-Dimer ABG pH ABG pO2 ABG HCO3 ABG O2 Saturation ABG Base Excess ABG Hemoglobin Oxyhemoglobin Sodium Potassium Chloride 108.4 H Carbon Dioxide BUN Creatinine 0.5 L 0.4 L Glucose 191 H 163 H POC Glucose 154 H Lactic Acid Uric Acid Calcium 8.2 L 7.9 L Magnesium Ferritin Total Bilirubin AST Lactate Dehydrogenase Total Creatine Kinase C-Reactive Protein Total Protein Albumin TSH Urine WBC (Auto) Urine Creatinine Salicylates Acetaminophen Valproic Acid SARS-CoV-2 (PCR) 07/12/22 07/12/22 07/12/22 04:00 04:00 04:00 WBC RBC Hgb Hct MCV MCH Plt Count Seg Neutrophils % Seg Neutrophils # PT APTT D-Dimer 925.80 H ABG pH ABG pO2 ABG HCO3 ABG O2 Saturation ABG Base Excess ABG Hemoglobin Oxyhemoglobin Sodium Potassium Chloride Carbon Dioxide BUN Creatinine Glucose POC Glucose Lactic Acid Uric Acid Calcium Magnesium Ferritin 519.5 H Total Bilirubin AST Lactate Dehydrogenase 444 H Total Creatine Kinase C-Reactive Protein Total Protein Albumin TSH Urine WBC (Auto) Urine Creatinine Salicylates Acetaminophen Valproic Acid SARS-CoV-2 (PCR) 07/12/22 07/12/22 07/12/22 04:00 05:00 05:03 WBC 11.7 H RBC 3.33 L Hgb Hct MCV 99 H MCH 33 H Plt Count 68 L Seg Neutrophils % Seg Neutrophils # PT APTT D-Dimer ABG pH 7.453 H ABG pO2 107.9 H ABG HCO3 27.9 H ABG O2 Saturation ABG Base Excess 3.7 H ABG Hemoglobin 10.9 L Oxyhemoglobin Sodium Potassium Chloride Carbon Dioxide BUN Creatinine Glucose POC Glucose 174 H Lactic Acid Uric Acid Calcium Magnesium Ferritin Total Bilirubin AST Lactate Dehydrogenase Total Creatine Kinase C-Reactive Protein Total Protein Albumin TSH Urine WBC (Auto) Urine Creatinine Salicylates Acetaminophen Valproic Acid SARS-CoV-2 (PCR) 07/12/22 07/12/22 07/12/22 12:15 17:18 23:14 WBC RBC Hgb Hct MCV MCH Plt Count Seg Neutrophils % Seg Neutrophils # PT APTT D-Dimer ABG pH ABG pO2 ABG HCO3 ABG O2 Saturation ABG Base Excess ABG Hemoglobin Oxyhemoglobin Sodium Potassium Chloride Carbon Dioxide BUN Creatinine Glucose POC Glucose 154 H 154 H 167 H Lactic Acid Uric Acid Calcium Magnesium Ferritin Total Bilirubin AST Lactate Dehydrogenase Total Creatine Kinase C-Reactive Protein Total Protein Albumin TSH Urine WBC (Auto) Urine Creatinine Salicylates Acetaminophen Valproic Acid SARS-CoV-2 (PCR) 07/13/22 07/13/22 07/13/22 04:00 04:10 05:14 WBC RBC 3.17 L Hgb Hct MCV 98 H MCH 34 H Plt Count 75 L Seg Neutrophils % Seg Neutrophils # PT APTT D-Dimer ABG pH ABG pO2 ABG HCO3 ABG O2 Saturation ABG Base Excess ABG Hemoglobin Oxyhemoglobin Sodium Potassium Chloride Carbon Dioxide BUN Creatinine 0.4 L Glucose 136 H POC Glucose 140 H Lactic Acid Uric Acid Calcium Magnesium Ferritin Total Bilirubin AST Lactate Dehydrogenase Total Creatine Kinase C-Reactive Protein Total Protein Albumin TSH Urine WBC (Auto) Urine Creatinine Salicylates Acetaminophen Valproic Acid SARS-CoV-2 (PCR) 07/13/22 07/13/22 07/13/22 12:03 14:25 17:19 WBC RBC Hgb Hct MCV MCH Plt Count Seg Neutrophils % Seg Neutrophils # PT APTT D-Dimer ABG pH 7.478 H ABG pO2 118.1 H ABG HCO3 28.2 H ABG O2 Saturation ABG Base Excess 4.5 H ABG Hemoglobin Oxyhemoglobin Sodium Potassium Chloride Carbon Dioxide BUN Creatinine Glucose POC Glucose 193 H 189 H Lactic Acid Uric Acid Calcium Magnesium Ferritin Total Bilirubin AST Lactate Dehydrogenase Total Creatine Kinase C-Reactive Protein Total Protein Albumin TSH Urine WBC (Auto) Urine Creatinine Salicylates Acetaminophen Valproic Acid SARS-CoV-2 (PCR) 07/13/22 07/13/22 07/14/22 23:52 Unknown 06:18 WBC RBC Hgb Hct MCV MCH Plt Count Seg Neutrophils % Seg Neutrophils # PT APTT D-Dimer ABG pH 7.465 H ABG pO2 128.8 H ABG HCO3 29.0 H ABG O2 Saturation ABG Base Excess 4.9 H ABG Hemoglobin 10.3 L Oxyhemoglobin Sodium Potassium Chloride Carbon Dioxide BUN Creatinine Glucose POC Glucose 174 H 167 H Lactic Acid Uric Acid Calcium Magnesium Ferritin Total Bilirubin AST Lactate Dehydrogenase Total Creatine Kinase C-Reactive Protein Total Protein Albumin TSH Urine WBC (Auto) Urine Creatinine Salicylates Acetaminophen Valproic Acid SARS-CoV-2 (PCR) 07/14/22 07/14/22 07/15/22 11:34 17:20 00:25 WBC RBC Hgb Hct MCV MCH Plt Count Seg Neutrophils % Seg Neutrophils # PT APTT D-Dimer ABG pH ABG pO2 ABG HCO3 ABG O2 Saturation ABG Base Excess ABG Hemoglobin Oxyhemoglobin Sodium Potassium Chloride Carbon Dioxide BUN Creatinine Glucose POC Glucose 187 H 221 H 172 H Lactic Acid Uric Acid Calcium Magnesium Ferritin Total Bilirubin AST Lactate Dehydrogenase Total Creatine Kinase C-Reactive Protein Total Protein Albumin TSH Urine WBC (Auto) Urine Creatinine Salicylates Acetaminophen Valproic Acid SARS-CoV-2 (PCR) 07/15/22 07/15/22 07/15/22 04:00 04:00 05:49 WBC 11.4 H RBC 3.13 L Hgb Hct MCV 98 H MCH 33 H Plt Count 98 L Seg Neutrophils % Seg Neutrophils # PT APTT D-Dimer ABG pH ABG pO2 ABG HCO3 ABG O2 Saturation ABG Base Excess ABG Hemoglobin Oxyhemoglobin Sodium Potassium Chloride Carbon Dioxide 34 H BUN Creatinine 0.4 L Glucose 126 H POC Glucose 143 H Lactic Acid Uric Acid Calcium Magnesium Ferritin Total Bilirubin AST Lactate Dehydrogenase Total Creatine Kinase C-Reactive Protein Total Protein Albumin TSH Urine WBC (Auto) Urine Creatinine Salicylates Acetaminophen Valproic Acid SARS-CoV-2 (PCR) 07/15/22 07/15/22 07/16/22 11:19 16:16 00:19 WBC RBC Hgb Hct MCV MCH Plt Count Seg Neutrophils % Seg Neutrophils # PT APTT D-Dimer ABG pH ABG pO2 ABG HCO3 ABG O2 Saturation ABG Base Excess ABG Hemoglobin Oxyhemoglobin Sodium Potassium Chloride Carbon Dioxide BUN Creatinine Glucose POC Glucose 158 H 227 H 153 H Lactic Acid Uric Acid Calcium Magnesium Ferritin Total Bilirubin AST Lactate Dehydrogenase Total Creatine Kinase C-Reactive Protein Total Protein Albumin TSH Urine WBC (Auto) Urine Creatinine Salicylates Acetaminophen Valproic Acid SARS-CoV-2 (PCR) 07/16/22 07/16/22 07/16/22 04:20 04:20 11:28 WBC RBC 3.16 L Hgb Hct MCV 99 H MCH 33 H Plt Count 101 L Seg Neutrophils % Seg Neutrophils # PT APTT D-Dimer ABG pH ABG pO2 ABG HCO3 ABG O2 Saturation ABG Base Excess ABG Hemoglobin Oxyhemoglobin Sodium Potassium Chloride Carbon Dioxide 36 H BUN 18 H Creatinine 0.4 L Glucose 139 H POC Glucose 158 H Lactic Acid Uric Acid Calcium Magnesium Ferritin Total Bilirubin AST Lactate Dehydrogenase Total Creatine Kinase C-Reactive Protein Total Protein Albumin TSH Urine WBC (Auto) Urine Creatinine Salicylates Acetaminophen Valproic Acid SARS-CoV-2 (PCR) 07/16/22 07/17/22 07/17/22 16:30 00:07 05:46 WBC RBC Hgb Hct MCV MCH Plt Count Seg Neutrophils % Seg Neutrophils # PT APTT D-Dimer ABG pH ABG pO2 ABG HCO3 ABG O2 Saturation ABG Base Excess ABG Hemoglobin Oxyhemoglobin Sodium Potassium Chloride Carbon Dioxide BUN Creatinine Glucose POC Glucose 201 H 139 H 123 H Lactic Acid Uric Acid Calcium Magnesium Ferritin Total Bilirubin AST Lactate Dehydrogenase Total Creatine Kinase C-Reactive Protein Total Protein Albumin TSH Urine WBC (Auto) Urine Creatinine Salicylates Acetaminophen Valproic Acid SARS-CoV-2 (PCR)
[2022-07-17] MEDS: VALPROIC ACID 250 MG/5 ML ORAL LIQD FEEDTUBE SCH ×2 (10:26→22:04)
[2022-07-17] MEDS: SENNOSIDES/DOCUSATE SODIUM 8.6/50 MG TAB FEEDTUBE SCH ×2 (10:26→22:00)
[2022-07-17] MEDS: dexAMETHasone 4 MG/ML VIAL IV SCH (10:26)
[2022-07-17] MEDS: FAMOTIDINE 20 MG TAB FEEDTUBE SCH ×2 (10:26→22:04)
[2022-07-17] MEDS: CHOLECALCIFEROL (VIT D3) 1000 UNIT (25 mcg) TAB FEEDTUBE SCH (10:27)
--- NOTE | 2022-07-17 10:59 | Progress Note ---
Assessment and Plan Cultures: SARS CoV2 PCR: Positive 07/07/2022 blood culture: No growth 07/07/2022 sputum culture: Klebsiella A/P: 76-year-old female with prior CVA, hemiplegia, aphasia, dementia, history of pulmonary embolism was admitted from the [facility]dc with altered mental status, hypoxia. Was seen in the ED, intubated for airway protection: #COVID-19: CXR without significant pneumonia. Procalcitonin 0.19. Lactate 4.7. CRP 1.6. S/P abx and remdesivir. #Acute hypoxic respiratory failure: On mechanical ventilation. 30% FiO2. #Acute encephalopathy: Likely metabolic, sodium was significantly elevated on admission. MRI did not show any acute abnormality. #Chronic CVA, dementia #Transaminitis: Mild, could be related to COVID-19, there was mild CPK elevation as well. Improving. Recs: -Completed Remdesivir and steroids -Completed antibiotics Will sign off. Vanessa Pires MD, FACP, [facility] O: [phone] F: [phone] C: [phone] Subjective Date of service: 07/17/22 Principal diagnosis: Hypernatremia Interval history: Afebrile. Remains on the vent. Objective - Exam Narrative Exam: Physical Exam: Constitutional: intubated, on the vent Head, Ears, Nose: Normocephalic, atraumatic. External ears, nose normal Eyes: Conjunctivae/corneas clear. No icterus. No ptosis. Neck: intubated Oral: intubated Cardiovascular: S1, S2 + Respiratory: AE fair bilaterally and equal GI: Soft, bowel sounds + Musculoskeletal: No pedal edema, no cyanosis. Skin: No rash or abscess Hem/Lymphatic: No palpable cervical or supraclavicular nodes. No lymphangitis Psych: no agitation Neurological: intubated, on the vent, exam limited - Constitutional Vitals: Vital Signs Temp Pulse Resp BP Pulse Ox 98.0 F 95 H 12 94/57 100 07/17/22 04:00 07/17/22 07:47 07/17/22 06:00 07/17/22 07:47 07/17/22 07:47 Temperature -Last 24 Hours Temperature 98.0 F Temperature 98.1 F Temperature 98.2 F Temperature 98.0 F Temperature 97.9 F Temperature 99.1 F - Labs CBC & Chem 7: 07/16/22 04:20 07/16/22 04:20 Labs: Abnormal lab results 07/16/22 07/16/22 07/17/22 Range/Units 11:28 16:30 00:07 POC Glucose 158 H 201 H 139 H (70-105) mg/dL 07/17/22 Range/Units 05:46 POC Glucose 123 H (70-105) mg/dL
--- NOTE | 2022-07-17 12:44 | Progress Note ---
Assessment and Plan Assessment and plan: This is a 76-year-old female with CVA, pulmonary embolism, hypothyroidism and JUJU admitted with electrolyte imbalances, hypoxic respiratory failure and COVID- 19 pneumonia Neuro: Acute metabolic encephalopathy, h/o CVA with hemiplegia, dysphagia, aphasia, dementia -Neurology consulted, appreciate recommendations -Reorientation as needed -Maintain sleep-wake cycle -Resume home Lipitor -As needed analgesia -CT head shows no acute intracranial hemorrhage, multiple chronic appearing infarcts including left MCA distribution, left cerebral hemisphere and within the right basal ganglia -Depakene -EEG compatible with significant diffuse encephalopathy -MRI shows no acute findings, remote infarction of the left frontal lobe and left cerebellum, moderate sequela of chronic microvascular disease Cardiac: h/o HLD -Resume home Lipitor -Blood pressure monitoring per protocol Respiratory: Acute hypoxic respiratory failure, h/o JUJU, pulmonary embolism -CCM consulted, appreciate recommendations -Intubated on 07/07 with a 7.50 ETT at 24 the lips -A.m. vent settings: CPAP 23/04 -See RT notes for titration -A.m. ABG and CXR noted -VAP bundle -SPO2 monitoring GI: NAD -24 hours +230 ml -PPI -NTR consulted for tube feedings -BR: Senokot-S : Rhabdomyolysis -Nephrology consulted, appreciate recommendations -Monitor intake and output -Free water flush -Renally dose medications -Avoid nephrotoxic medications -Trend BMP ID: COVID-19 pneumonia, lactic acidosis -Infectious disease consulted, appreciate recommendation - s/p Azithromycin 07/07-07/10, Rocephin -Decadron 10mg for 10 days () -s/p Remdesivir () -CRP 0.3, procalcitonin 0.19 -Contact/droplet precautions -f/u blood culture -Trend COVID-19 inflammatory markers -Monitor WBC and temperature curve -Prophylactic anticoagulation based on D-dimer per hospital protocol Endo: h/o hypothyroidism -Avoid hypoglycemia -SSI -Accu-Cheks q. 6 -Long-acting insulin, titrate as needed -Resume home Synthroid Heme: Thrombocytopenia (improving) -Trend CBC -Transfuse hemoglobin less than 7 -SCDs to BLE while in bed The high probability of a clinically significant, sudden or life threatening deterioration of the [multi] system(s) required my full and direct attention, intervention and personal management. The aggregate critical care time was [60] minutes. This time is in addition to time spent performing reported procedures but includes the following: [x] Data Review and interpretation [x] Patient assessment and monitoring of vital signs [x] Documentation [x] Medication orders and management Disposition Plan: icu Total Time Spent with Patient (Minutes): 60 History Interval history: This is a 76-year-old female with CVA resulting hemiplegia, dysphagia, aphasia, dementia, pulm embolism without acute cor pulmonale, hypothyroidism and JUJU who presented to the hospital on 07/07 from her assisted for altered mental st atus and diminished cognition and possible hypoxia via EMS. In the emergency department patient was intubated due to concern for airway protection. Recommend emergency department showed leukocytosis, hyponatremia with a sodium of 168, hypercalcemia, hypomagnesemia, elevated CK. Patient was admitted to the hospitalist service with acute hypoxic respiratory failure, COVID-19 PUI, hypernatremia, transaminitis, rhabdomyolysis with consults to [facility] and nephrology: Hospital course to date: 07/08: Patient noted to be COVID-positive, started on remdesivir, Decadron, ceftriaxone azithromycin and infectious disease was consulted yesterday. This morning patient is on any sedation, PICC line to be placed. RT to attempt PSV. Started on free water flushes and tube feedings. Continues on D5 half-normal saline. 07/09: Patient remains encephalopathic, not on any sedation. Hypernatremia is improving, on FWF Q4hrs and D5w gtt per Nephro. If hypernatremia continue to improve and patient's mentation is unchanged, will get a repeat CT to r/o intracranial abnormalities. Patient remains afebrile, leukocytosis improved, and VSS. Continue current IV abx per ID. Patient failed PSV trial again today, continue PSV trial as tolerated 07/10: Remains stable on the vent, tolerating PSV trial this am. sodium continue to improve but no change in mental status. D/w CCM will get MRI brain to r/o any intracranial abnormalities, EEG also ordered to r/o seizures. Continue FWF and D5w gtt per Nephro. Continue IV steroids and current IV abx per ID. 07/11: Hypernatremia resolved, mentation is unchanged, remains on low vent setting. EEG noted, and MRI brain pending. Will consult Neurology for further recommendations. Continue daily PSV trial as tolerated. 07/12: Appears more awake this morning but still not following any commands. MRI brain with no acute findings and sodium normalized. Awaiting Neuro consult. Continue daily PSV trial as tolerated. Patient's daughter was updated via phone, all questions and concerns were addressed at this time. Medical records requested from [facility] and [facility]. 07/13: DELMI overnight. Mentation is unchanged, remains stable on the vent. Neurology consult pending. Continue vent adjustment per [facility] and daily PSV trial as tolerated. 07/14: Mentation is unchanged, remains afebrile and stable on the vent, VSS. Complete antibiotics course, still on IV steroids X3 more days. ID recommendations noted, remove corbin. Continue daily PSV trial as tolerated. 07/15: DELMI overnight, mentation unchanged, VSS. Patient failed PSV trial this am due to apnea. Continue daily PSV trial as tolerated. Possible trach and Peg per [facility]. 07/16: No acute events overnight, attempted PSV again today. [facility] to have family meeting on 07/17 to discuss trach/PEG 07/17: [facility] will have family meeting tomorrow. Failed PSV again. No acute events overnight. Thrombocytopenia continues to improve Hospitalist Physical - Constitutional Vitals: Temp Pulse Resp BP Pulse Ox 98.4 F 93 H 12 105/66 99 07/17/22 12:00 07/17/22 12:00 07/17/22 12:00 07/17/22 12:00 07/17/22 12:00 General appearance: Present: other (Intubated, unresponsive, not on any sedation) - EENT Eyes: Present: PERRL, EOM intact ENT: dentition normal - Neck Neck: Present: normal ROM - Respiratory Respiratory effort: normal Respiratory: bilateral: diminished - Cardiovascular Rhythm: regular Heart Sounds: Present: S1 & S2. Absent: systolic murmur, diastolic murmur - Extremities Extremities: no ischemia, pulses intact, pulses symmetrical, No edema, normal temperature, normal color Peripheral Pulses: within normal limits - Abdominal General gastrointestinal: soft, non-tender, non-distended, normal bowel sounds - Integumentary Integumentary: Present: warm, dry - Psychiatric Psychiatric: other - Neurologic Neurologic: other (intact cough/gag, PERRL) - Allied Health Allied health notes reviewed: nursing, RT, social work HEART Score - HEART Score Troponin: Troponin T 0.010 ng/mL (0.00-0.029) 07/07/22 04:17 Results - Labs CBC & Chem 7: 07/16/22 04:20 07/16/22 04:20 Labs: Laboratory Last Values WBC 9.6 K/mm3 (4.5-11.0) 07/16/22 04:20 RBC 3.16 M/mm3 (3.65-5.03) L 07/16/22 04:20 Hgb 10.4 gm/dl (10.1-14.3) 07/16/22 04:20 Hct 31.4 % (30.3-42.9) 07/16/22 04:20 MCV 99 fl (79-97) H 07/16/22 04:20 MCH 33 pg (28-32) H 07/16/22 04:20 MCHC 33 % (30-34) 07/16/22 04:20 RDW 14.7 % (13.2-15.2) 07/16/22 04:20 Plt Count 101 K/mm3 (140-440) L 07/16/22 04:20 Lymph % (Auto) 15.2 % (13.4-35.0) 07/08/22 14:54 [place] % (Auto) 2.7 % (0.0-7.3) 07/08/22 14:54 Eos % (Auto) 0.0 % (0.0-4.3) 07/08/22 14:54 Baso % (Auto) 0.1 % (0.0-1.8) 07/08/22 14:54 Lymph # (Auto) 1.7 K/mm3 (1.2-5.4) 07/08/22 14:54 [place] # (Auto) 0.3 K/mm3 (0.0-0.8) 07/08/22 14:54 Eos # (Auto) 0.0 K/mm3 (0.0-0.4) 07/08/22 14:54 Baso # (Auto) 0.0 K/mm3 (0.0-0.1) 07/08/22 14:54 Seg Neutrophils % 82.0 % (40.0-70.0) H 07/08/22 14:54 Seg Neutrophils # 9.1 K/mm3 (1.8-7.7) H 07/08/22 14:54 PT 15.0 Sec. (12.2-14.9) H 07/07/22 03:38 INR 1.06 (0.87-1.13) 07/07/22 03:38 APTT 23.0 Sec. (24.2-36.6) L 07/07/22 03:38 D-Dimer 925.80 ng/mlDDU (0-234) H 07/12/22 04:00 ABG pH 7.465 pH Units (7.350-7.450) H 07/13/22 Unknown ABG pCO2 41.3 mm Hg 07/13/22 Unknown ABG pO2 128.8 mm Hg (80.0-90.0) H 07/13/22 Unknown ABG HCO3 29.0 mmol/L (20.0-26.0) H 07/13/22 Unknown ABG O2 Saturation 98.6 % (95.0-99.0) 07/13/22 Unknown ABG O2 Content 14.3 (0.0-44) 07/13/22 Unknown ABG Base Excess 4.9 mmol/L (-2.0-3.0) H 07/13/22 Unknown ABG Hemoglobin 10.3 gm/dl (12.0-16.0) L 07/13/22 Unknown ABG Carboxyhemoglobin 0.9 % (0.0-5.0) 07/13/22 Unknown ABG Methemoglobin 0.7 % (0.0-1.5) 07/13/22 Unknown Oxyhemoglobin 97.0 % (95.0-99.0) 07/13/22 Unknown FiO2 30 % 07/13/22 Unknown Sodium 141 mmol/L (137-145) 07/16/22 04:20 Potassium 4.2 mmol/L (3.6-5.0) 07/16/22 04:20 Chloride 99.5 mmol/L (98-107) 07/16/22 04:20 Carbon Dioxide 36 mmol/L (22-30) H 07/16/22 04:20 Anion Gap 10 mmol/L 07/16/22 04:20 BUN 18 mg/dL (7-17) H 07/16/22 04:20 Creatinine 0.4 mg/dL (0.6-1.2) L 07/16/22 04:20 Estimated GFR > 60 ml/min 07/16/22 04:20 BUN/Creatinine Ratio 45 % 07/16/22 04:20 Glucose 139 mg/dL (65-100) H 07/16/22 04:20 POC Glucose 123 mg/dL (70-105) H 07/17/22 05:46 Lactic Acid 2.10 mmol/L (0.7-2.0) H* 07/10/22 08:24 Uric Acid 13.5 mg/dL (3.5-7.6) H 07/07/22 04:17 Calcium 8.4 mg/dL (8.4-10.2) 07/16/22 04:20 Phosphorus 2.90 mg/dL (2.5-4.5) 07/16/22 04:20 Magnesium 1.80 mg/dL (1.7-2.3) 07/16/22 04:20 Ferritin 519.5 ng/mL (10.0-200.0) H 07/12/22 04:00 Total Bilirubin 0.30 mg/dL (0.1-1.2) 07/10/22 04:21 AST 89 units/L (5-40) H 07/10/22 04:21 ALT 53 units/L (7-56) 07/10/22 04:21 Alkaline Phosphatase 83 units/L (35-129) 07/10/22 04:21 Ammonia 32.0 umol/L (25-60) 07/07/22 04:17 Lactate Dehydrogenase 444 units/L (91-180) H 07/12/22 04:00 Total Creatine Kinase 1745 units/L (30-135) H 07/11/22 05:40 Troponin T 0.010 ng/mL (0.00-0.029) 07/07/22 04:17 C-Reactive Protein 0.30 mg/dL (0.00-1.30) 07/12/22 04:00 Total Protein 4.9 g/dL (6.3-8.2) L 07/10/22 04:21 Albumin 2.5 g/dL (3.9-5) L 07/10/22 04:21 Albumin/Globulin Ratio 1.0 % 07/10/22 04:21 Procalcitonin 0.19 ng/mL (<0.15) 07/08/22 14:54 TSH 12.790 mlU/mL (0.270-4.200) H 07/07/22 04:17 Free T4 0.78 ng/dL (0.76-1.46) 07/07/22 04:17 Total Cortisol 47.9 mcg/dL () 07/07/22 07:43 Urine Color Yellow (Yellow) 07/07/22 03:17 Urine Turbidity Slightly cloudy (Clear) 07/07/22 03:17 Specific [place] (Man) 1.015 (1.003-1.030) 07/07/22 03:17 Ur Protein (Man) 1+ mg/dL (Negative) 07/07/22 03:17 Ur Ketones (Man) Negative (Negative) 07/07/22 03:17 Ur Nitrite (Man) Negative (Negative) 07/07/22 03:17 Urine Bilirubin (Man) Negative (Negative) 07/07/22 03:17 Leukocyte Esterase (Man) Negative (Negative) 07/07/22 03:17 Urine WBC (Auto) 7.0 /HPF (0.0-6.0) H 07/07/22 03:17 Urine RBC (Auto) 1.0 /HPF (0.0-6.0) 07/07/22 03:17 U Epithel Cells (Auto) 4.0 /HPF (0-13.0) 07/07/22 03:17 Urine Bacteria (Auto) 3+ /HPF (Negative) 07/07/22 03:17 Urine RBC (Manual) 3+ (Negative) 07/07/22 03:17 Urine Mucus 3+ /HPF 07/07/22 03:17 Urine Osmolality 744 Mosm/kg 07/07/22 16:45 Urine Creatinine 92.9 mg/dL (0.1-20.0) H 07/07/22 16:45 Urine Sodium 109 mmol/L 07/07/22 16:45 Salicylates < 0.3 mg/dL (2.8-20.0) L 07/07/22 03:38 Urine Opiates Screen Presumptive negative 07/07/22 03:17 Urine Methadone Screen Presumptive negative 07/07/22 03:17 Acetaminophen 5.0 ug/mL (10.0-30.0) L 07/07/22 03:38 Ur Barbiturates Screen Presumptive negative 07/07/22 03:17 Valproic Acid 7.0 ug/mL (50-100) L 07/07/22 03:38 Ur Phencyclidine Scrn Presumptive negative 07/07/22 03:17 Ur Amphetamines Screen Presumptive negative 07/07/22 03:17 U Benzodiazepines Scrn Presumptive negative 07/07/22 03:17 Urine Cocaine Screen Presumptive negative 07/07/22 03:17 U Marijuana (THC) Screen Presumptive negative 07/07/22 03:17 Drugs of Abuse Note Disclamer 07/07/22 03:17 Plasma/Serum Alcohol < 0.01 % (0-0.07) 07/07/22 03:38 SARS-CoV-2 (PCR) Positive (Negative) A 07/07/22 15:00 [place]/IV: Voiding Method Incontinent Active Medications - Current Medications Current Medications: Generic Name Dose Route Start Last Admin Trade Name Freq PRN Reason Stop Dose Admin Acetaminophen 650 mg 07/13/22 12:00 Acetaminophen 325 Mg/10.15 Ml Oral Liqd Unit Dose FEEDTUBE Q6H PRN Pain MILD(1-3)/Fever >100.5/LEE Atorvastatin Calcium 80 mg 07/10/22 22:00 07/16/22 21:43 Atorvastatin 40 Mg Tab FEEDTUBE 80 mg QHS ERROL Administration Cholecalciferol 1,000 unit 07/10/22 10:00 07/17/22 10:27 Cholecalciferol (Vit D3) 1000 Unit (25 Mcg) Tab FEEDTUBE 1,000 unit QDAY ERROL Administration Dextrose 50 ml 07/09/22 11:42 Dextrose 50% In Water (25gm) 50 Ml Syringe IV Q30MIN PRN Hypoglycemia Protocol Famotidine 20 mg 07/09/22 22:00 07/17/22 10:26 Famotidine 20 Mg Tab FEEDTUBE 20 mg BID ERROL Administration Heparin Sodium (Porcine) 5,000 unit 07/08/22 06:00 07/17/22 05:53 Heparin 5,000 Unit/1 Ml Vial SUB-Q 5,000 unit Q12H ERROL Administration Hydrophilic Ointment 1 applic 07/07/22 02:48 Lip Therapy Vaseline TP Q2HR PRN Dry Lips Insulin Human Lispro 0 unit 07/09/22 12:00 07/17/22 05:53 Insulin Lispro 100 Unit/Ml SUB-Q Not Given Q6HR [facility] Protocol Levothyroxine Sodium 75 mcg 07/11/22 06:00 07/17/22 05:54 Levothyroxine 75 Mcg Tab FEEDTUBE 75 mcg QAM@0600 ERROL Administration Multi-Ingred Cream/Lotion/Oil/Oint 1 applic 07/07/22 02:48 Mineral Oil/Petrolatum, White Ophth Oint 3.5 Gm OU Q4HR PRN Dry Eye(s) Senna/Docusate Sodium 1 tab 07/07/22 10:00 07/17/22 10:26 Sennosides/Docusate Sodium 8.6/50 Mg Tab FEEDTUBE Not Given BID ERROL Sodium Chloride 10 ml 07/07/22 13:00 07/17/22 10:26 Sodium Chloride 0.9% 10 Ml Flush Syringe IV 10 ml BID ERROL Administration Sodium Chloride 10 ml 07/07/22 12:09 Sodium Chloride 0.9% 10 Ml Flush Syringe IV PRN PRN LINE FLUSH Valproic Acid 250 mg 07/10/22 22:00 07/17/22 10:26 Valproic Acid 250 Mg/5 Ml Oral Liqd FEEDTUBE 250 mg Q12H ERROL Administration Nutrition/Malnutrition Assess - Dietary Evaluation Nutrition/Malnutrition Findings: Nutrition Notes Start: 07/07/22 13:24 Freq: Status: Active Protocol: Document 07/17/22 11:13 DAREN (Rec: 07/17/22 11:42 DAREN [id number]) Nutrition Notes Initial or Follow up Reassessment Current Diagnosis Respiratory Failure,Stroke Other Pertinent Diagnosis COVID-19, Metabolic Encephalopathy, Pulmonary Embolism, Dementia. Current Diet TF-Vital AF 1.2 [place] @ 50 ml/hr (from D 07/12). Labs/Tests 07/17: CO2 36, BUN 18, Crea 0. 4, Glu 139. Pertinent Medications 07/17: Vit D3, Levothyroxine, others nutritionally unremarkable. Height 5 ft 6 in Weight 95.254 kg [place] Body Weight (kg) 59.09 BMI 33.9 Weight change and time frame No body weight change reported in 11 days. Weight Status Obese Subjective/Other Information RD consult for routine F/U on TF tolerance/continuation assessment. TF continues as prescribed, and well tolerated, according to RN notes. Pt continues on Mechanical Ventilation, O2 saturation @ 100%, according to Physical Assessment History notes. Pt presents caries and has missing teeth, according to Physical Assessment History notes. Pt presents bilateral-UE Non- Pitting Edema 2+, according to Physical Assessment History notes. Pt remains incontinent, according to Physical Assessment History notes. Pt presents dysphagia, hemiplegia, and aphasia, according to Physical Assessment History notes. Pt is resident of a SNF according to Progress notes. Percent of energy/protein needs met: Prescribed TF-Vital AF 1.2 [place] @ 50 ml/hr provides for energy/protein needs (1,440 Kcal/90 g) during LOS, 101% Kcal, 91% AA. Burn Absent Trauma Absent GI Symptoms Other Difficulty In Swallowing,Chewing Food Allergy No Skin Integrity/Comment Assessment WNL. Current % PO Other Minimum of two criteria Yes Energy Intake (non-severe) <75% Estimated Energy Requirement >7 days Interpretation of Weight Loss (non- 5% in 1 month severe) Fluid Accumulation Mild (non-severe) Reduced Head Teacher Strength N/A (non-severe) Protein-Calorie Malnutrition Non-Severe #2 Nutrition Diagnosis Malnutrition Diagnosis Progress(for reassessment Continues documentation) #1 Nutrition Diagnosis Inadequate oral intake Diagnosis Progress(for reassessment Continues documentation) Is patient on ventilator? Yes Is Patient Ambulatory and/or Out of Bed No REE-([facility]-confined to bed) 1763.208 Kcal/Kg value to use for calculation 15 Approximate Energy Requirements Using 1429 kcal/Kg Calculation Used for Recommendations Kcal/kg Additional Notes Protein: 1.3 g/Kg AdjBW; 99 g/ day. Fluids: 1 ml/Kcal, or as per MD. Nutrition Intervention Nutrition Support: Continue TF-Vital AF 1.2 [place] @ 50 ml/hr. Flush: 75 ml water Q 4 hr, or as per MD. Kcal 1,440 Protein (gm) 90 Carbohydrates (gm) 133 Fat (gm) 65 Fluid (mL) 973 Fiber (gm) 6 % RDI: 101% Kcal; 91% AA. Goal #1 Provide at least 75% of energy /protein needs through Enteral Feeding during LOS. Goal #2 Adjust the dietary intervention to better serve Pt's needs and clinical conditions during LOS. Follow-Up By: 07/24/22 Additional Comments Continue monitoring TF tolerance, ventilation status, PEG-tube placement, and BM.
[2022-07-18 04:40] LABS: ABG Base Excess 9.4 mmol/L (-2.0-3.0); ABG HCO3 33.4 mmol/L (20.0-26.0); ABG Methemoglobin 0.6 % (0.0-1.5); ABG Oxygen Saturation 98.3 % (95.0-99.0); ABG PCO2 42.9 mm Hg; ABG PH 7.508 pH Units (7.350-7.450); ABG PO2 115.9 mm Hg (80.0-90.0); Basophils % (Auto) 0.1 % (0.0-1.8); Eosinophils % (Auto) 0.1 % (0.0-4.3); Hematocrit 33.3 % (30.3-42.9); Lymphocytes # (Auto) 2.4 K/mm3 (1.2-5.4); Lymphocytes % (Auto) 19.3 % (13.4-35.0); Mean Corpuscular HGB Conc 33 % (30-34); Mean Corpuscular Volume 100 fl (79-97); Monocytes # (Auto) 0.4 K/mm3 (0.0-0.8); Monocytes % (Auto) 3.2 % (0.0-7.3); Platelet Count 113 K/mm3 (140-440); Red Blood Count 3.34 M/mm3 (3.65-5.03); Red Cell Distribution Width 14.7 % (13.2-15.2)
[2022-07-18 04:59] LABS: Blood Urea Nitrogen 16 mg/dL (7-17); Calcium 8.7 mg/dL (8.4-10.2); Hemolysis Index 3
[2022-07-18 05:04] LABS: BUN/Creatinine Ratio 40
[2022-07-18] MEDS: HEPARIN 5,000 UNIT/1 ML VIAL SUB-Q SCH ×2 (05:04→17:57)
[2022-07-18] MEDS: LEVOTHYROXINE 75 MCG TAB FEEDTUBE SCH (05:05)
[2022-07-18] MEDS: INSULIN LISPRO 100 UNIT/ML SUB-Q SCH ×3 (05:05→17:57)
[2022-07-18] MEDS: FAMOTIDINE 20 MG TAB FEEDTUBE SCH ×2 (09:55→21:28)
[2022-07-18] MEDS: CHOLECALCIFEROL (VIT D3) 1000 UNIT (25 mcg) TAB FEEDTUBE SCH (09:55)
[2022-07-18] MEDS: SENNOSIDES/DOCUSATE SODIUM 8.6/50 MG TAB FEEDTUBE SCH ×2 (09:57→21:28)
[2022-07-18] MEDS: VALPROIC ACID 250 MG/5 ML ORAL LIQD FEEDTUBE SCH ×2 (09:58→21:27)
[2022-07-18] MEDS ORDERED: SODIUM CHLORIDE 0.9% 500 ML 500 ML IV ONE (10:00)
--- NOTE | 2022-07-18 12:22 | Progress Note ---
Assessment and Plan Assessment and plan: This is a 76-year-old female with CVA, pulmonary embolism, hypothyroidism and JUJU admitted with electrolyte imbalances, hypoxic respiratory failure and COVID- 19 pneumonia Neuro: Acute metabolic encephalopathy, h/o CVA with hemiplegia, dysphagia, aphasia, dementia -Neurology consulted, appreciate recommendations -Reorientation as needed -Maintain sleep-wake cycle -Resume home Lipitor -As needed analgesia -CT head shows no acute intracranial hemorrhage, multiple chronic appearing infarcts including left MCA distribution, left cerebral hemisphere and within the right basal ganglia -Depakene -EEG compatible with significant diffuse encephalopathy -MRI shows no acute findings, remote infarction of the left frontal lobe and left cerebellum, moderate sequela of chronic microvascular disease Cardiac: h/o HLD -Resume home Lipitor -Blood pressure monitoring per protocol Respiratory: Acute hypoxic respiratory failure, h/o JUJU, pulmonary embolism -CCM consulted, appreciate recommendations -Intubated on 07/07 with a 7.50 ETT at 24 the lips -A.m. vent settings: Assist-control rate 12, tidal volume 400, PEEP 6, FiO2 30% -See RT notes for titration -A.m. ABG and CXR noted -VAP bundle -SPO2 monitoring GI: NAD -24 hours +710 ml -PPI -NTR consulted for tube feedings -BR: Senokot-S : Rhabdomyolysis -Nephrology consulted, appreciate recommendations -Monitor intake and output -Free water flush -Renally dose medications -Avoid nephrotoxic medications -Trend BMP ID: COVID-19 pneumonia, lactic acidosis -Infectious disease consulted, appreciate recommendation - s/p Azithromycin 07/07-07/10, Rocephin -Decadron 10mg for 10 days () -s/p Remdesivir () -CRP 0.3, procalcitonin 0.19 -Contact/droplet precautions -f/u blood culture -Trend COVID-19 inflammatory markers -Monitor WBC and temperature curve -Prophylactic anticoagulation based on D-dimer per hospital protocol Endo: h/o hypothyroidism -Avoid hypoglycemia -SSI -Accu-Cheks q. 6 -Long-acting insulin, titrate as needed -Resume home Synthroid Heme: Thrombocytopenia (improving) -Trend CBC -Transfuse hemoglobin less than 7 -SCDs to BLE while in bed The high probability of a clinically significant, sudden or life threatening deterioration of the [multi] system(s) required my full and direct attention, intervention and personal management. The aggregate critical care time was [60] minutes. This time is in addition to time spent performing reported procedures but includes the following: [x] Data Review and interpretation [x] Patient assessment and monitoring of vital signs [x] Documentation [x] Medication orders and management Disposition Plan: icu Total Time Spent with Patient (Minutes): 60 History Interval history: This is a 76-year-old female with CVA resulting hemiplegia, dysphagia, aphasia, dementia, pulm embolism without acute cor pulmonale, hypothyroidism and JUJU who presented to the hospital on 07/07 from [facility] for altered mental status and diminished cognition and possible hypoxia via EMS. In the emergency department patient was intubated due to concern for airway protection. R ecommend emergency department showed leukocytosis, hyponatremia with a sodium of 168, hypercalcemia, hypomagnesemia, elevated CK. Patient was admitted to the hospitalist service with acute hypoxic respiratory failure, COVID-19 PUI, hypernatremia, transaminitis, rhabdomyolysis with consults to CCM and nephrology: Hospital course to date: 07/08: Patient noted to be COVID-positive, started on remdesivir, Decadron, ceftriaxone azithromycin and infectious disease was consulted yesterday. This morning patient is on any sedation, PICC line to be placed. RT to attempt PSV. Started on free water flushes and tube feedings. Continues on D5 half-normal saline. 07/09: Patient remains encephalopathic, not on any sedation. Hypernatremia is improving, on FWF Q4hrs and D5w gtt per Nephro. If hypernatremia continue to improve and patient's mentation is unchanged, will get a repeat CT to r/o intracranial abnormalities. Patient remains afebrile, leukocytosis improved, and VSS. Continue current IV abx per ID. Patient failed PSV trial again today, continue PSV trial as tolerated 07/10: Remains stable on the vent, tolerating PSV trial this am. sodium continue to improve but no change in mental status. D/w CCM will get MRI brain to r/o any intracranial abnormalities, EEG also ordered to r/o seizures. Continue FWF and D5w gtt per Nephro. Continue IV steroids and current IV abx per ID. 07/11: Hypernatremia resolved, mentation is unchanged, remains on low vent set ting. EEG noted, and MRI brain pending. Will consult Neurology for further recommendations. Continue daily PSV trial as tolerated. 07/12: Appears more awake this morning but still not following any commands. MRI brain with no acute findings and sodium normalized. Awaiting Neuro consult. Continue daily PSV trial as tolerated. Patient's daughter was updated via phone, all questions and concerns were addressed at this time. Medical records requested from [facility] and [facility]. 07/13: DELMI overnight. Mentation is unchanged, remains stable on the vent. Neurology consult pending. Continue vent adjustment per [facility] and daily PSV trial as tolerated. 07/14: Mentation is unchanged, remains afebrile and stable on the vent, VSS. Complete antibiotics course, still on IV steroids X3 more days. ID recommend ations noted, remove corbin. Continue daily PSV trial as tolerated. 07/15: DELMI overnight, mentation unchanged, VSS. Patient failed PSV trial this am due to apnea. Continue daily PSV trial as tolerated. Possible trach and Peg per [facility]. 07/16: No acute events overnight, attempted PSV again today. [facility] to have family meeting on 07/17 to discuss trach/PEG 07/17: [facility] will have family meeting tomorrow. Failed PSV again. No acute events overnight. Thrombocytopenia continues to improve 07/18: [facility] held a family meeting today and surgery will be consulted for trach/PEG placement. Family stated that patient had not had her levothyroxine for several months due to decreased p.o. intake, will send thyroid panel. No acute events reported overnight. Hypotension today and 500 mL normal saline bolus given. Hospitalist Physical - Constitutional Vitals: Temp Pulse Resp BP Pulse Ox 98.6 F 98 H 14 108/66 100 07/18/22 12:00 07/18/22 12:00 07/18/22 12:07/18/22 12:07/18/22 12:10 General appearance: Present: no acute distress, other (Intubated, unresponsive, not on any sedation) - EENT Eyes: Present: PERRL ENT: poor dentition - Respiratory Respiratory effort: normal Respiratory: bilateral: rhonchi - Cardiovascular Rhythm: regular Heart Sounds: Present: S1 & S2. Absent: systolic murmur, diastolic murmur - Extremities Extremities: no ischemia, pulses intact, pulses symmetrical, normal temperature, normal color Peripheral Pulses: within normal limits - Abdominal General gastrointestinal: soft, non-tender, non-distended, normal bowel sounds - Integumentary Integumentary: Present: warm, dry - Psychiatric Psychiatric: cooperative - Neurologic Neurologic: CNII-XII intact, no focal deficits, moves all extremities - Allied Health Allied health notes reviewed: nursing, RT, social work HEART Score - HEART Score Troponin: Troponin T 0.010 ng/mL (0.00-0.029) 07/07/22 04:17 Results - Labs CBC & Chem 7: 07/18/22 04:00 07/18/22 04:00 Labs: Laboratory Last Values WBC 12.2 K/mm3 (4.5-11.0) H 07/18/22 04:00 RBC 3.34 M/mm3 (3.65-5.03) L 07/18/22 04:00 Hgb 11.0 gm/dl (10.1-14.3) 07/18/22 04:00 Hct 33.3 % (30.3-42.9) 07/18/22 04:00 MCV 100 fl (79-97) H 07/18/22 04:00 MCH 33 pg (28-32) H 07/18/22 04:00 MCHC 33 % (30-34) 07/18/22 04:00 RDW 14.7 % (13.2-15.2) 07/18/22 04:00 Plt Count 113 K/mm3 (140-440) L 07/18/22 04:00 Lymph % (Auto) 19.3 % (13.4-35.0) 07/18/22 04:00 Morgan % (Auto) 3.2 % (0.0-7.3) 07/18/22 04:00 Eos % (Auto) 0.1 % (0.0-4.3) 07/18/22 04:00 Baso % (Auto) 0.1 % (0.0-1.8) 07/18/22 04:00 Lymph # (Auto) 2.4 K/mm3 (1.2-5.4) 07/18/22 04:00 Morgan # (Auto) 0.4 K/mm3 (0.0-0.8) 07/18/22 04:00 Eos # (Auto) 0.0 K/mm3 (0.0-0.4) 07/18/22 04:00 Baso # (Auto) 0.0 K/mm3 (0.0-0.1) 07/18/22 04:00 Seg Neutrophils % 77.3 % (40.0-70.0) H 07/18/22 04:00 Seg Neutrophils # 9.4 K/mm3 (1.8-7.7) H 07/18/22 04:00 PT 15.0 Sec. (12.2-14.9) H 07/07/22 03:38 INR 1.06 (0.87-1.13) 07/07/22 03:38 APTT 23.0 Sec. (24.2-36.6) L 07/07/22 03:38 D-Dimer 925.80 ng/mlDDU (0-234) H 07/12/22 04:00 ABG pH 7.508 pH Units (7.350-7.450) H 07/18/22 04:00 ABG pCO2 42.9 mm Hg 07/18/22 04:00 ABG pO2 115.9 mm Hg (80.0-90.0) H 07/18/22 04:00 ABG HCO3 33.4 mmol/L (20.0-26.0) H 07/18/22 04:00 ABG O2 Saturation 98.3 % (95.0-99.0) 07/18/22 04:00 ABG O2 Content 16.1 (0.0-44) 07/18/22 04:00 ABG Base Excess 9.4 mmol/L (-2.0-3.0) H 07/18/22 04:00 ABG Hemoglobin 11.7 gm/dl (12.0-16.0) L 07/18/22 04:00 ABG Carboxyhemoglobin 1.2 % (0.0-5.0) 07/18/22 04:00 ABG Methemoglobin 0.6 % (0.0-1.5) 07/18/22 04:00 Oxyhemoglobin 96.6 % (95.0-99.0) 07/18/22 04:00 FiO2 30 % 07/18/22 04:00 Sodium 138 mmol/L (137-145) 07/18/22 04:00 Potassium 4.2 mmol/L (3.6-5.0) 07/18/22 04:00 Chloride 98.5 mmol/L (98-107) 07/18/22 04:00 Carbon Dioxide 35 mmol/L (22-30) H 07/18/22 04:00 Anion Gap 9 mmol/L 07/18/22 04:00 BUN 16 mg/dL (7-17) 07/18/22 04:00 Creatinine 0.4 mg/dL (0.6-1.2) L 07/18/22 04:00 Estimated GFR > 60 ml/min 07/18/22 04:00 BUN/Creatinine Ratio 40 % 07/18/22 04:00 Glucose 130 mg/dL (65-100) H 07/18/22 04:00 POC Glucose 134 mg/dL (70-105) H 07/18/22 04:42 Lactic Acid 2.10 mmol/L (0.7-2.0) H* 07/10/22 08:24 Uric Acid 13.5 mg/dL (3.5-7.6) H 07/07/22 04:17 Calcium 8.7 mg/dL (8.4-10.2) 07/18/22 04:00 Phosphorus 2.90 mg/dL (2.5-4.5) 07/16/22 04:20 Magnesium 1.80 mg/dL (1.7-2.3) 07/16/22 04:20 Ferritin 519.5 ng/mL (10.0-200.0) H 07/12/22 04:00 Total Bilirubin 0.30 mg/dL (0.1-1.2) 07/10/22 04:21 AST 89 units/L (5-40) H 07/10/22 04:21 ALT 53 units/L (7-56) 07/10/22 04:21 Alkaline Phosphatase 83 units/L (35-129) 07/10/22 04:21 Ammonia 32.0 umol/L (25-60) 07/07/22 04:17 Lactate Dehydrogenase 444 units/L (91-180) H 07/12/22 04:00 Total Creatine Kinase 1745 units/L (30-135) H 07/11/22 05:40 Troponin T 0.010 ng/mL (0.00-0.029) 07/07/22 04:17 C-Reactive Protein 0.30 mg/dL (0.00-1.30) 07/12/22 04:00 Total Protein 4.9 g/dL (6.3-8.2) L 07/10/22 04:21 Albumin 2.5 g/dL (3.9-5) L 07/10/22 04:21 Albumin/Globulin Ratio 1.0 % 07/10/22 04:21 Procalcitonin 0.19 ng/mL (<0.15) 07/08/22 14:54 TSH 12.790 mlU/mL (0.270-4.200) H 07/07/22 04:17 Free T4 0.78 ng/dL (0.76-1.46) 07/07/22 04:17 Total Cortisol 47.9 mcg/dL () 07/07/22 07:43 Urine Color Yellow (Yellow) 07/07/22 03:17 Urine Turbidity Slightly cloudy (Clear) 07/07/22 03:17 Specific [place] (Man) 1.015 (1.003-1.030) 07/07/22 03:17 Ur Protein (Man) 1+ mg/dL (Negative) 07/07/22 03:17 Ur Ketones (Man) Negative (Negative) 07/07/22 03:17 Ur Nitrite (Man) Negative (Negative) 07/07/22 03:17 Urine Bilirubin (Man) Negative (Negative) 07/07/22 03:17 Leukocyte Esterase (Man) Negative (Negative) 07/07/22 03:17 Urine WBC (Auto) 7.0 /HPF (0.0-6.0) H 07/07/22 03:17 Urine RBC (Auto) 1.0 /HPF (0.0-6.0) 07/07/22 03:17 U Epithel Cells (Auto) 4.0 /HPF (0-13.0) 07/07/22 03:17 Urine Bacteria (Auto) 3+ /HPF (Negative) 07/07/22 03:17 Urine RBC (Manual) 3+ (Negative) 07/07/22 03:17 Urine Mucus 3+ /HPF 07/07/22 03:17 Urine Osmolality 744 Mosm/kg 07/07/22 16:45 Urine Creatinine 92.9 mg/dL (0.1-20.0) H 07/07/22 16:45 Urine Sodium 109 mmol/L 07/07/22 16:45 Salicylates < 0.3 mg/dL (2.8-20.0) L 07/07/22 03:38 Urine Opiates Screen Presumptive negative 07/07/22 03:17 Urine Methadone Screen Presumptive negative 07/07/22 03:17 Acetaminophen 5.0 ug/mL (10.0-30.0) L 07/07/22 03:38 Ur Barbiturates Screen Presumptive negative 07/07/22 03:17 Valproic Acid 7.0 ug/mL (50-100) L 07/07/22 03:38 Ur Phencyclidine Scrn Presumptive negative 07/07/22 03:17 Ur Amphetamines Screen Presumptive negative 07/07/22 03:17 U Benzodiazepines Scrn Presumptive negative 07/07/22 03:17 Urine Cocaine Screen Presumptive negative 07/07/22 03:17 U Marijuana (THC) Screen Presumptive negative 07/07/22 03:17 Drugs of Abuse Note Disclamer 07/07/22 03:17 Plasma/Serum Alcohol < 0.01 % (0-0.07) 07/07/22 03:38 SARS-CoV-2 (PCR) Positive (Negative) A 07/07/22 15:00 Corbin/IV: Voiding Method External Female Catheter Active Medications - Current Medications Current Medications: Generic Name Dose Route Start Last Admin Trade Name Freq PRN Reason Stop Dose Admin Acetaminophen 650 mg 07/13/22 12:00 Acetaminophen 325 Mg/10.15 Ml Oral Liqd Unit Dose FEEDTUBE Q6H PRN Pain MILD(1-3)/Fever >100.5/LEE Atorvastatin Calcium 80 mg 07/10/22 22:00 07/17/22 22:04 Atorvastatin 40 Mg Tab FEEDTUBE 80 mg QHS ERROL Administration Cholecalciferol 1,000 unit 07/10/22 10:00 07/18/22 09:55 Cholecalciferol (Vit D3) 1000 Unit (25 Mcg) Tab FEEDTUBE 1,000 unit QDAY ERROL Administration Dextrose 50 ml 07/09/22 11:42 Dextrose 50% In Water (25gm) 50 Ml Syringe IV Q30MIN PRN Hypoglycemia Protocol Famotidine 20 mg 07/09/22 22:00 07/18/22 09:55 Famotidine 20 Mg Tab FEEDTUBE 20 mg BID ERROL Administration Heparin Sodium (Porcine) 5,000 unit 07/08/22 06:00 07/18/22 05:04 Heparin 5,000 Unit/1 Ml Vial SUB-Q 5,000 unit Q12H ERROL Administration Hydrophilic Ointment 1 applic 07/07/22 02:48 Lip Therapy Vaseline TP Q2HR PRN Dry Lips Insulin Human Lispro 0 unit 07/09/22 12:00 07/18/22 05:05 Insulin Lispro 100 Unit/Ml SUB-Q Not Given Q6HR ERROL Protocol Levothyroxine Sodium 75 mcg 07/11/22 06:00 07/18/22 05:05 Levothyroxine 75 Mcg Tab FEEDTUBE 75 mcg QAM@0600 ERROL Administration Multi-Ingred Cream/Lotion/Oil/Oint 1 applic 07/07/22 02:48 Mineral Oil/Petrolatum, White Ophth Oint 3.5 Gm OU Q4HR PRN Dry Eye(s) Senna/Docusate Sodium 1 tab 07/07/22 10:00 07/18/22 09:57 Sennosides/Docusate Sodium 8.6/50 Mg Tab FEEDTUBE Not Given BID ERROL Sodium Chloride 10 ml 07/07/22 13:00 07/18/22 09:56 Sodium Chloride 0.9% 10 Ml Flush Syringe IV 10 ml BID ERROL Administration Sodium Chloride 10 ml 07/07/22 12:09 Sodium Chloride 0.9% 10 Ml Flush Syringe IV PRN PRN LINE FLUSH Valproic Acid 250 mg 07/10/22 22:00 07/18/22 09:58 Valproic Acid 250 Mg/5 Ml Oral Liqd FEEDTUBE 250 mg Q12H ERROL Administration Nutrition/Malnutrition Assess - Dietary Evaluation Nutrition/Malnutrition Findings: Nutrition Notes Start: 07/07/22 13:24 Freq: Status: Active Protocol: Document 07/17/22 11:13 DAREN (Rec: 07/17/22 11:42 DAREN [id number]) Nutrition Notes Initial or Follow up Reassessment Current Diagnosis Respiratory Failure,Stroke Other Pertinent Diagnosis COVID-19, Metabolic Encephalopathy, Pulmonary Embolism, Dementia. Current Diet TF-Vital AF 1.2 Jameson @ 50 ml/hr (from D 07/12). Labs/Tests 07/17: CO2 36, BUN 18, Crea 0. 4, Glu 139. Pertinent Medications 07/17: Vit D3, Levothyroxine, others nutritionally unremarkable. Height 5 ft 6 in Weight 95.254 kg Adrian Body Weight (kg) 59.09 BMI 33.9 Weight change and time frame No body weight change reported in 11 days. Weight Status Obese Subjective/Other Information RD consult for routine F/U on TF tolerance/continuation assessment. TF continues as prescribed, and well tolerated, according to RN notes. Pt continues on Mechanical Ventilation, O2 saturation @ 100%, according to Physical Assessment History notes. Pt presents caries and has missing teeth, according to Physical Assessment History notes. Pt presents bilateral-UE Non- Pitting Edema 2+, according to Physical Assessment History notes. Pt remains incontinent, according to Physical Assessment History notes. Pt presents dysphagia, hemiplegia, and aphasia, according to Physical Assessment History notes. Tracheostomy and PEG-tube placement are being discussed with family, according to Progress notes. Pt is resident of a SNF according to Progress notes. Percent of energy/protein needs met: Prescribed TF-Vital AF 1.2 Jameson @ 50 ml/hr provides for energy/protein needs (1,440 Kcal/90 g) during LOS, 101% Kcal, 91% AA. Burn Absent Trauma Absent GI Symptoms Other Difficulty In Swallowing,Chewing Food Allergy No Skin Integrity/Comment Assessment WNL. Current % PO Other Minimum of two criteria Yes Energy Intake (non-severe) <75% Estimated Energy Requirement >7 days Interpretation of Weight Loss (non- 5% in 1 month severe) Fluid Accumulation Mild (non-severe) Reduced [employer] Strength N/A (non-severe) Protein-Calorie Malnutrition Non-Severe #2 Nutrition Diagnosis Malnutrition Diagnosis Progress(for reassessment Continues documentation) #1 Nutrition Diagnosis Inadequate oral intake Diagnosis Progress(for reassessment Continues documentation) Is patient on ventilator? Yes Is Patient Ambulatory and/or Out of Bed No REE-([place]-confined to bed) 1763.208 Kcal/Kg value to use for calculation 15 Approximate Energy Requirements Using 1429 kcal/Kg Calculation Used for Recommendations Kcal/kg Additional Notes Protein: 1.3 g/Kg AdjBW; 99 g/ day. Fluids: 1 ml/Kcal, or as per MD. Nutrition Intervention Nutrition Support: Continue TF-Vital AF 1.2 Jameson @ 50 ml/hr. Flush: 75 ml water Q 4 hr, or as per MD. Kcal 1,440 Protein (gm) 90 Carbohydrates (gm) 133 Fat (gm) 65 Fluid (mL) 973 Fiber (gm) 6 % RDI: 101% Kcal; 91% AA. Goal #1 Provide at least 75% of energy /protein needs through Enteral Feeding during LOS. Goal #2 Adjust the dietary intervention to better serve Pt's needs and clinical conditions during LOS. Follow-Up By: 07/24/22 Additional Comments Continue monitoring TF tolerance, ventilation status, PEG-tube placement, and BM.
--- NOTE | 2022-07-18 12:24 | Progress Note ---
Assessment and Plan 76 y/o female with acute respiratory failure secondary to altered mental status, most likely from electrolyte abnormalities seen on chemistry, found to be COVID positive. 07/18/22: Family meeting: Discussed current mental state. Discussed negative work up so far to explain why mental state hasnt improved. Per family here, patient was better than what she is not but I had difficult time placing a time frame as to when that was, maybe May. It does appear that she has had a steady decline mentally and even stopped eating. There were talks prior to her admission here about Peg tube placement. Discussed the idea of trach and peg p lacement. Also explained to family that trach does not fix any underlying reason as to why the patient's mental state is the way it is. The family wasn't aware that she was brought in for altered mental status, they were told she had bradycardia. Nonetheless, the family as a whole wish to pursue trach and peg placement. Consulted Surgery and hopeful they will see soon. Continue supportive measures and continue daily PSV trials. TSH on admit was 13, will repeat but if T4 is normal, nothing to do. She also is not behaving like myxedema coma. Guarded prognosis. 07/17/22: steroids end today. Continue daily PSV trials. Will speak with family about next steps as today is day 10 of intubation and it does not appear that conventional extubation is in the near future. 07/16/22: Continue daily PSV trials. Will speak with family tomorrow as patient is not improving enough for conventional extubation, especially with frequent apnic events. Most likely patient will need trach and peg. 07/15/22: mental status is still unchanged. Eyes open but not tracking or following commands. Also going apnic on PSV trials. Most likely will need trach and peg given mental status has not improved. 07/12/22: Negative MRI for acute infarct. Na is normal. Continue to monitor. Daily PSV trials. Has been intubated now for 5 days. 07/11/22: for MRI today. Appreciate renal help, agree with signing off. Attempt daily PSV. Guarded prognosis. 07/10: follow up MRI. Get official EEG read but no status. Continue daily PSV trials. Guarded prognosis 07/09/22: Continue supportive measures. Continue to fix Na, if no improvement in mental state with normal sodium then will pursue MRI. Picc placed today. 07/08/22: No further sedation. 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 Consider neurology consult and may need to obtain MRI. Attempt PSV trials today. needs Picc line placed for correction access as patient is a difficult stick. Feed patient and monitor lytes. 1. Discontinue sedation 2. Wean FiO2 for sats >88% and PaO2 greater than 60 3. Agree with fluid resuscitation, patient needs free water 4. Will follow up with family to find out exactly what patient mental status was a facility CCT 31 minutes. Subjective Date of service: 07/18/22 Principal diagnosis: Hypernatremia Interval history: No acute events. No changes in mental state. Met with one daughter and in person, other two siblings over the phone. Objective Vital Signs - 12hr 07/18/22 07/18/22 07/18/22 00:30 01:00 01:28 Temperature Pulse Rate 98 H 104 H Pulse Rate [ From Monitor] Respiratory 11 L 12 Rate Blood Pressure 111/63 106/71 O2 Sat by Pulse 100 100 99 Oximetry 07/18/22 07/18/22 07/18/22 02:00 03:00 04:00 Temperature 98.5 F Pulse Rate 97 H 102 H 117 H Pulse Rate [ From Monitor] Respiratory 12 12 13 Rate Blood Pressure 99/58 103/64 101/74 O2 Sat by Pulse 100 100 100 Oximetry 07/18/22 07/18/22 07/18/22 04:44 05:00 05:46 Temperature Pulse Rate 112 H 96 H 112 H Pulse Rate [ From Monitor] Respiratory 11 L 12 Rate Blood Pressure 101/74 106/68 O2 Sat by Pulse 100 100 99 Oximetry 07/18/22 07/18/22 07/18/22 06:00 07:00 08:00 Temperature 98.4 F Pulse Rate 107 H 91 H 93 H Pulse Rate [ 108 H From Monitor] Respiratory 11 L 10 L 10 L Rate Blood Pressure 101/74 101/74 87/56 O2 Sat by Pulse 98 100 100 Oximetry 07/18/22 07/18/22 07/18/22 08:09 09:00 10:00 Temperature Pulse Rate 100 H 111 H 107 H Pulse Rate [ From Monitor] Respiratory 14 11 L Rate Blood Pressure 87/56 87/56 71/44 O2 Sat by Pulse 100 100 100 Oximetry 07/18/22 07/18/2207/18/22 10:30 11:00 11:31 Temperature Pulse Rate 87 104 H 102 H Pulse Rate [ From Monitor] Respiratory 10 L 11 L 12 Rate Blood Pressure 106/60 96/54 114/67 O2 Sat by Pulse 100 100 100 Oximetry 07/18/22 07/18/22 12:00 12:10 Temperature 98.6 F Pulse Rate 98 H Pulse Rate [ From Monitor] Respiratory 14 Rate Blood Pressure 108/66 O2 Sat by Pulse 100 100 Oximetry Constitutional: comatose ENT: other (orally intubated) Neck: supple Effort: normal Ascultation: Bilateral: clear Percussion: Bilateral: not dull Cardiovascular: regular rate and rhythm Gastrointestinal: normoactive bowel sounds, soft Extremities: no cyanosis, no edema Neurologic: unable to assess CBC and BMP: 07/18/22 04:00 07/18/22 04:00 ABG, PT/INR, D-dimer: ABG ABG pH 7.508 pH Units (7.350-7.450) H 07/18/22 04:00 ABG pCO2 42.9 mm Hg 07/18/22 04:00 ABG pO2 115.9 mm Hg (80.0-90.0) H 07/18/22 04:00 ABG O2 Saturation 98.3 % (95.0-99.0) 07/18/22 04:00 PT/INR, D-dimer PT 15.0 Sec. (12.2-14.9) H 07/07/22 03:38 INR 1.06 (0.87-1.13) 07/07/22 03:38 D-Dimer 925.80 ng/mlDDU (0-234) H 07/12/22 04:00 Abnormal lab findings: Abnormal Labs 07/07/22 07/07/22 07/07/22 03:17 03:38 03:38 WBC RBC 5.43 H Hgb 18.2 H Hct 54.9 H MCV 101 H MCH 34 H Plt Count 104 L Seg Neutrophils % Seg Neutrophils # PT 15.0 H APTT 23.0 L D-Dimer ABG pH ABG pO2 ABG HCO3 ABG O2 Saturation ABG Base Excess ABG Hemoglobin Oxyhemoglobin Sodium Potassium Chloride Carbon Dioxide BUN Creatinine Glucose POC Glucose Lactic Acid Uric Acid Calcium Magnesium Ferritin Total Bilirubin AST Lactate Dehydrogenase Total Creatine Kinase C-Reactive Protein Total Protein Albumin TSH Urine WBC (Auto) 7.0 H Urine Creatinine Salicylates Acetaminophen Valproic Acid SARS-CoV-2 (PCR) 07/07/22 07/07/22 07/07/22 03:38 03:38 03:38 WBC RBC Hgb Hct MCV MCH Plt Count Seg Neutrophils % Seg Neutrophils # PT APTT D-Dimer ABG pH ABG pO2 ABG HCO3 ABG O2 Saturation ABG Base Excess ABG Hemoglobin Oxyhemoglobin Sodium Potassium Chloride Carbon Dioxide BUN Creatinine Glucose POC Glucose Lactic Acid Uric Acid Calcium Magnesium 3.30 H Ferritin Total Bilirubin AST Lactate Dehydrogenase Total Creatine Kinase 1826 H C-Reactive Protein Total Protein Albumin TSH Urine WBC (Auto) Urine Creatinine Salicylates < 0.3 L Acetaminophen 5.0 L Valproic Acid 7.0 L SARS-CoV-2 (PCR) 07/07/22 07/07/22 07/07/22 04:17 04:17 04:17 WBC RBC Hgb Hct MCV MCH Plt Count Seg Neutrophils % Seg Neutrophils # PT APTT D-Dimer ABG pH ABG pO2 ABG HCO3 ABG O2 Saturation ABG Base Excess ABG Hemoglobin Oxyhemoglobin Sodium 168 H* Potassium 3.2 L Chloride 122.2 H Carbon Dioxide BUN 52 H Creatinine Glucose 158 H POC Glucose Lactic Acid 3.50 H* Uric Acid Calcium 10.9 H Magnesium Ferritin Total Bilirubin 1.40 H AST 47 H Lactate Dehydrogenase Total Creatine Kinase C-Reactive Protein Total Protein Albumin TSH 12.790 H Urine WBC (Auto) Urine Creatinine Salicylates Acetaminophen Valproic Acid SARS-CoV-2 (PCR) 07/07/22 07/07/22 07/07/22 04:17 07:43 09:35 WBC RBC Hgb Hct MCV MCH Plt Count Seg Neutrophils % Seg Neutrophils # PT APTT D-Dimer ABG pH ABG pO2 377.3 H ABG HCO3 ABG O2 Saturation 99.6 H ABG Base Excess -2.5 L ABG Hemoglobin Oxyhemoglobin Sodium Potassium Chloride Carbon Dioxide BUN Creatinine Glucose POC Glucose Lactic Acid 6.30 H* Uric Acid 13.5 H Calcium Magnesium Ferritin Total Bilirubin AST Lactate Dehydrogenase Total Creatine Kinase C-Reactive Protein Total Protein Albumin TSH Urine WBC (Auto) Urine Creatinine Salicylates Acetaminophen Valproic Acid SARS-CoV-2 (PCR) 07/07/22 07/07/22 07/07/22 15:00 16:00 16:00 WBC RBC Hgb Hct MCV MCH Plt Count Seg Neutrophils % Seg Neutrophils # PT APTT D-Dimer ABG pH ABG pO2 ABG HCO3 ABG O2 Saturation ABG Base Excess ABG Hemoglobin Oxyhemoglobin Sodium 166 H* Potassium Chloride 124.8 H Carbon Dioxide 20 L BUN 41 H Creatinine Glucose 157 H POC Glucose Lactic Acid 7.00 H* Uric Acid Calcium Magnesium Ferritin Total Bilirubin AST 81 H Lactate Dehydrogenase Total Creatine Kinase C-Reactive Protein Total Protein Albumin TSH Urine WBC (Auto) Urine Creatinine Salicylates Acetaminophen Valproic Acid SARS-CoV-2 (PCR) Positive A 07/07/22 07/07/22 07/07/22 16:45 23:42 23:42 WBC RBC Hgb Hct MCV MCH Plt Count Seg Neutrophils % Seg Neutrophils # PT APTT D-Dimer ABG pH ABG pO2 ABG HCO3 ABG O2 Saturation ABG Base Excess ABG Hemoglobin Oxyhemoglobin Sodium 165 H* Potassium 3.0 L Chloride 122.8 H Carbon Dioxide BUN 38 H Creatinine Glucose 232 H POC Glucose Lactic Acid 5.60 H* Uric Acid Calcium Magnesium Ferritin Total Bilirubin AST Lactate Dehydrogenase Total Creatine Kinase C-Reactive Protein Total Protein Albumin TSH Urine WBC (Auto) Urine Creatinine 92.9 H Salicylates Acetaminophen Valproic Acid SARS-CoV-2 (PCR) 07/07/22 07/07/22 07/08/22 Unknown Unknown 05:30 WBC RBC Hgb Hct MCV MCH Plt Count Seg Neutrophils % Seg Neutrophils # PT APTT D-Dimer ABG pH 7.553 H 7.473 H ABG pO2 61.7 L 121.7 H ABG HCO3 ABG O2 Saturation 94.7 L ABG Base Excess 4.3 H ABG Hemoglobin 18.0 H Oxyhemoglobin 93.1 L Sodium 163 H* Potassium 6.3 H* D Chloride 123.7 H Carbon Dioxide BUN 42 H Creatinine Glucose 169 H POC Glucose Lactic Acid Uric Acid Calcium Magnesium Ferritin Total Bilirubin AST Lactate Dehydrogenase Total Creatine Kinase C-Reactive Protein Total Protein Albumin TSH Urine WBC (Auto) Urine Creatinine Salicylates Acetaminophen Valproic Acid SARS-CoV-2 (PCR) 07/08/22 07/08/22 07/08/22 05:36 11:21 14:54 WBC 11.1 H RBC Hgb Hct MCV 101 H MCH 33 H Plt Count 69 L Seg Neutrophils % 82.0 H Seg Neutrophils # 9.1 H PT APTT D-Dimer ABG pH ABG pO2 ABG HCO3 ABG O2 Saturation ABG Base Excess ABG Hemoglobin Oxyhemoglobin Sodium Potassium Chloride Carbon Dioxide BUN Creatinine Glucose POC Glucose 174 H 148 H Lactic Acid Uric Acid Calcium Magnesium Ferritin Total Bilirubin AST Lactate Dehydrogenase Total Creatine Kinase C-Reactive Protein Total Protein Albumin TSH Urine WBC (Auto) Urine Creatinine Salicylates Acetaminophen Valproic Acid SARS-CoV-2 (PCR) 07/08/22 07/08/22 07/08/22 14:54 14:54 14:54 WBC RBC Hgb Hct MCV MCH Plt Count Seg Neutrophils % Seg Neutrophils # PT APTT D-Dimer ABG pH ABG pO2 ABG HCO3 ABG O2 Saturation ABG Base Excess ABG Hemoglobin Oxyhemoglobin Sodium 163 H* Potassium 2.9 L* Chloride 123.7 H Carbon Dioxide BUN 30 H Creatinine Glucose 161 H POC Glucose Lactic Acid 6.10 H* Uric Acid Calcium Magnesium Ferritin Total Bilirubin AST 69 H Lactate Dehydrogenase Total Creatine Kinase 2335 H C-Reactive Protein Total Protein 5.6 L D Albumin 3.1 L TSH Urine WBC (Auto) Urine Creatinine Salicylates Acetaminophen Valproic Acid SARS-CoV-2 (PCR) 07/08/22 07/08/22 07/08/22 14:54 14:54 14:54 WBC RBC Hgb Hct MCV MCH Plt Count Seg Neutrophils % Seg Neutrophils # PT APTT D-Dimer 499.72 H ABG pH ABG pO2 ABG HCO3 ABG O2 Saturation ABG Base Excess ABG Hemoglobin Oxyhemoglobin Sodium Potassium Chloride Carbon Dioxide BUN Creatinine Glucose POC Glucose Lactic Acid Uric Acid Calcium Magnesium Ferritin 722.1 H Total Bilirubin AST Lactate Dehydrogenase 455 H Total Creatine Kinase C-Reactive Protein 1.60 H Total Protein Albumin TSH Urine WBC (Auto) Urine Creatinine Salicylates Acetaminophen Valproic Acid SARS-CoV-2 (PCR) 07/08/22 07/08/22 07/09/22 19:13 19:53 00:09 WBC RBC Hgb Hct MCV MCH Plt Count Seg Neutrophils % Seg Neutrophils # PT APTT D-Dimer ABG pH ABG pO2 ABG HCO3 ABG O2 Saturation ABG Base Excess ABG Hemoglobin Oxyhemoglobin Sodium 160 H Potassium 3.5 L D Chloride 122.0 H Carbon Dioxide 20 L BUN 28 H Creatinine Glucose 151 H POC Glucose 138 H Lactic Acid 5.70 H* Uric Acid Calcium Magnesium Ferritin Total Bilirubin AST Lactate Dehydrogenase Total Creatine Kinase C-Reactive Protein Total Protein Albumin TSH Urine WBC (Auto) Urine Creatinine Salicylates Acetaminophen Valproic Acid SARS-CoV-2 (PCR) 07/09/22 07/09/22 07/09/22 00:45 03:21 03:21 WBC RBC Hgb Hct MCV MCH Plt Count Seg Neutrophils % Seg Neutrophils # PT APTT D-Dimer ABG pH ABG pO2 ABG HCO3 ABG O2 Saturation ABG Base Excess ABG Hemoglobin Oxyhemoglobin Sodium 158 H 157 H Potassium Chloride 124.2 H 125.0 H Carbon Dioxide 20 L 20 L BUN 25 H 24 H Creatinine Glucose 147 H 169 H POC Glucose Lactic Acid 4.70 H* Uric Acid Calcium Magnesium Ferritin Total Bilirubin AST 81 H Lactate Dehydrogenase Total Creatine Kinase C-Reactive Protein Total Protein 5.7 L Albumin 2.8 L TSH Urine WBC (Auto) Urine Creatinine Salicylates Acetaminophen Valproic Acid SARS-CoV-2 (PCR) 07/09/22 07/09/22 07/09/22 04:40 05:35 08:14 WBC RBC Hgb Hct MCV 102 H MCH 33 H Plt Count 74 L Seg Neutrophils % Seg Neutrophils # PT APTT D-Dimer ABG pH ABG pO2 172.1 H ABG HCO3 ABG O2 Saturation 99.1 H ABG Base Excess -2.8 L ABG Hemoglobin Oxyhemoglobin Sodium Potassium Chloride Carbon Dioxide BUN Creatinine Glucose POC Glucose 108 H Lactic Acid Uric Acid Calcium Magnesium Ferritin Total Bilirubin AST Lactate Dehydrogenase Total Creatine Kinase C-Reactive Protein Total Protein Albumin TSH Urine WBC (Auto) Urine Creatinine Salicylates Acetaminophen Valproic Acid SARS-CoV-2 (PCR) 07/09/22 07/09/22 07/09/22 11:16 11:27 16:20 WBC RBC Hgb Hct MCV MCH Plt Count Seg Neutrophils % Seg Neutrophils # PT APTT D-Dimer ABG pH ABG pO2 ABG HCO3 ABG O2 Saturation ABG Base Excess ABG Hemoglobin Oxyhemoglobin Sodium 155 H Potassium Chloride 121.3 H Carbon Dioxide BUN 21 H Creatinine Glucose 170 H POC Glucose 173 H 190 H Lactic Acid Uric Acid Calcium Magnesium Ferritin Total Bilirubin AST Lactate Dehydrogenase Total Creatine Kinase C-Reactive Protein Total Protein Albumin TSH Urine WBC (Auto) Urine Creatinine Salicylates Acetaminophen Valproic Acid SARS-CoV-2 (PCR) 07/09/22 07/10/22 07/10/22 17:16 00:04 04:21 WBC RBC Hgb Hct MCV MCH Plt Count Seg Neutrophils % Seg Neutrophils # PT APTT D-Dimer ABG pH ABG pO2 ABG HCO3 ABG O2 Saturation ABG Base Excess ABG Hemoglobin Oxyhemoglobin Sodium 149 H 150 H Potassium Chloride 115.6 H 115.0 H Carbon Dioxide BUN 18 H Creatinine 0.5 L Glucose 207 H 178 H POC Glucose 180 H Lactic Acid Uric Acid Calcium 7.9 L Magnesium Ferritin Total Bilirubin AST 89 H Lactate Dehydrogenase 431 H Total Creatine Kinase C-Reactive Protein Total Protein 4.9 L Albumin 2.5 L TSH Urine WBC (Auto) Urine Creatinine Salicylates Acetaminophen Valproic Acid SARS-CoV-2 (PCR) 07/10/22 07/10/22 07/10/22 04:21 04:21 04:21 WBC 11.8 H RBC 3.52 L Hgb Hct MCV 99 H MCH 33 H Plt Count 67 L Seg Neutrophils % Seg Neutrophils # PT APTT D-Dimer 585.71 H ABG pH ABG pO2 ABG HCO3 ABG O2 Saturation ABG Base Excess ABG Hemoglobin Oxyhemoglobin Sodium Potassium Chloride Carbon Dioxide BUN Creatinine Glucose POC Glucose Lactic Acid Uric Acid Calcium Magnesium Ferritin 631.3 H Total Bilirubin AST Lactate Dehydrogenase Total Creatine Kinase C-Reactive Protein Total Protein Albumin TSH Urine WBC (Auto) Urine Creatinine Salicylates Acetaminophen Valproic Acid SARS-CoV-2 (PCR) 07/10/22 07/10/22 07/10/22 04:21 04:55 05:26 WBC RBC Hgb Hct MCV MCH Plt Count Seg Neutrophils % Seg Neutrophils # PT APTT D-Dimer ABG pH ABG pO2 76.8 L ABG HCO3 ABG O2 Saturation ABG Base Excess ABG Hemoglobin 10.4 L Oxyhemoglobin 94.5 L Sodium Potassium Chloride Carbon Dioxide BUN Creatinine Glucose POC Glucose 147 H Lactic Acid 2.50 H* Uric Acid Calcium Magnesium Ferritin Total Bilirubin AST Lactate Dehydrogenase Total Creatine Kinase C-Reactive Protein Total Protein Albumin TSH Urine WBC (Auto) Urine Creatinine Salicylates Acetaminophen Valproic Acid SARS-CoV-2 (PCR) 07/10/22 07/10/22 07/10/22 08:24 11:31 12:53 WBC RBC Hgb Hct MCV MCH Plt Count Seg Neutrophils % Seg Neutrophils # PT APTT D-Dimer ABG pH ABG pO2 ABG HCO3 ABG O2 Saturation ABG Base Excess ABG Hemoglobin Oxyhemoglobin Sodium Potassium Chloride 110.9 H Carbon Dioxide BUN Creatinine 0.5 L Glucose 200 H POC Glucose 166 H Lactic Acid 2.10 H* Uric Acid Calcium 8.3 L Magnesium Ferritin Total Bilirubin AST Lactate Dehydrogenase Total Creatine Kinase C-Reactive Protein Total Protein Albumin TSH Urine WBC (Auto) Urine Creatinine Salicylates Acetaminophen Valproic Acid SARS-CoV-2 (PCR) 07/10/22 07/10/22 07/10/22 17:37 18:53 23:30 WBC RBC Hgb Hct MCV MCH Plt Count Seg Neutrophils % Seg Neutrophils # PT APTT D-Dimer ABG pH ABG pO2 ABG HCO3 ABG O2 Saturation ABG Base Excess ABG Hemoglobin Oxyhemoglobin Sodium Potassium Chloride 109.5 H 110.2 H Carbon Dioxide BUN Creatinine 0.5 L 0.5 L Glucose 243 H 208 H POC Glucose 237 H Lactic Acid Uric Acid Calcium 8.1 L 8.1 L Magnesium Ferritin Total Bilirubin AST Lactate Dehydrogenase Total Creatine Kinase C-Reactive Protein Total Protein Albumin TSH Urine WBC (Auto) Urine Creatinine Salicylates Acetaminophen Valproic Acid SARS-CoV-2 (PCR) 07/10/22 07/11/22 07/11/22 23:57 04:00 04:15 WBC 11.2 H RBC Hgb Hct MCV 99 H MCH Plt Count 73 L Seg Neutrophils % Seg Neutrophils # PT APTT D-Dimer ABG pH ABG pO2 107.4 H ABG HCO3 ABG O2 Saturation ABG Base Excess ABG Hemoglobin Oxyhemoglobin Sodium Potassium Chloride Carbon Dioxide BUN Creatinine Glucose POC Glucose 195 H Lactic Acid Uric Acid Calcium Magnesium Ferritin Total Bilirubin AST Lactate Dehydrogenase Total Creatine Kinase C-Reactive Protein Total Protein Albumin TSH Urine WBC (Auto) Urine Creatinine Salicylates Acetaminophen Valproic Acid SARS-CoV-2 (PCR) 07/11/22 07/11/22 07/11/22 05:40 05:40 06:06 WBC RBC Hgb Hct MCV MCH Plt Count Seg Neutrophils % Seg Neutrophils # PT APTT D-Dimer ABG pH ABG pO2 ABG HCO3 ABG O2 Saturation ABG Base Excess ABG Hemoglobin Oxyhemoglobin Sodium Potassium Chloride 109.8 H Carbon Dioxide BUN Creatinine 0.5 L Glucose 160 H POC Glucose 145 H Lactic Acid Uric Acid Calcium 8.3 L Magnesium Ferritin Total Bilirubin AST Lactate Dehydrogenase Total Creatine Kinase 1745 H C-Reactive Protein Total Protein Albumin TSH Urine WBC (Auto) Urine Creatinine Salicylates Acetaminophen Valproic Acid SARS-CoV-2 (PCR) 07/11/22 07/11/22 07/11/22 11:55 11:59 17:44 WBC RBC Hgb Hct MCV MCH Plt Count Seg Neutrophils % Seg Neutrophils # PT APTT D-Dimer ABG pH ABG pO2 ABG HCO3 ABG O2 Saturation ABG Base Excess ABG Hemoglobin Oxyhemoglobin Sodium Potassium Chloride 107.8 H Carbon Dioxide BUN Creatinine 0.5 L Glucose 150 H POC Glucose 150 H 182 H Lactic Acid Uric Acid Calcium 8.2 L Magnesium Ferritin Total Bilirubin AST Lactate Dehydrogenase Total Creatine Kinase C-Reactive Protein Total Protein Albumin TSH Urine WBC (Auto) Urine Creatinine Salicylates Acetaminophen Valproic Acid SARS-CoV-2 (PCR) 07/11/22 07/12/22 07/12/22 17:50 00:10 00:12 WBC RBC Hgb Hct MCV MCH Plt Count Seg Neutrophils % Seg Neutrophils # PT APTT D-Dimer ABG pH ABG pO2 ABG HCO3 ABG O2 Saturation ABG Base Excess ABG Hemoglobin Oxyhemoglobin Sodium Potassium Chloride 108.4 H Carbon Dioxide BUN Creatinine 0.5 L 0.4 L Glucose 191 H 163 H POC Glucose 154 H Lactic Acid Uric Acid Calcium 8.2 L 7.9 L Magnesium Ferritin Total Bilirubin AST Lactate Dehydrogenase Total Creatine Kinase C-Reactive Protein Total Protein Albumin TSH Urine WBC (Auto) Urine Creatinine Salicylates Acetaminophen Valproic Acid SARS-CoV-2 (PCR) 07/12/22 07/12/22 07/12/22 04:00 04:00 04:00 WBC RBC Hgb Hct MCV MCH Plt Count Seg Neutrophils % Seg Neutrophils # PT APTT D-Dimer 925.80 H ABG pH ABG pO2 ABG HCO3 ABG O2 Saturation ABG Base Excess ABG Hemoglobin Oxyhemoglobin Sodium Potassium Chloride Carbon Dioxide BUN Creatinine Glucose POC Glucose Lactic Acid Uric Acid Calcium Magnesium Ferritin 519.5 H Total Bilirubin AST Lactate Dehydrogenase 444 H Total Creatine Kinase C-Reactive Protein Total Protein Albumin TSH Urine WBC (Auto) Urine Creatinine Salicylates Acetaminophen Valproic Acid SARS-CoV-2 (PCR) 07/12/22 07/12/22 07/12/22 04:00 05:00 05:03 WBC 11.7 H RBC 3.33 L Hgb Hct MCV 99 H MCH 33 H Plt Count 68 L Seg Neutrophils % Seg Neutrophils # PT APTT D-Dimer ABG pH 7.453 H ABG pO2 107.9 H ABG HCO3 27.9 H ABG O2 Saturation ABG Base Excess 3.7 H ABG Hemoglobin 10.9 L Oxyhemoglobin Sodium Potassium Chloride Carbon Dioxide BUN Creatinine Glucose POC Glucose 174 H Lactic Acid Uric Acid Calcium Magnesium Ferritin Total Bilirubin AST Lactate Dehydrogenase Total Creatine Kinase C-Reactive Protein Total Protein Albumin TSH Urine WBC (Auto) Urine Creatinine Salicylates Acetaminophen Valproic Acid SARS-CoV-2 (PCR) 07/12/22 07/12/22 07/12/22 12:15 17:18 23:14 WBC RBC Hgb Hct MCV MCH Plt Count Seg Neutrophils % Seg Neutrophils # PT APTT D-Dimer ABG pH ABG pO2 ABG HCO3 ABG O2 Saturation ABG Base Excess ABG Hemoglobin Oxyhemoglobin Sodium Potassium Chloride Carbon Dioxide BUN Creatinine Glucose POC Glucose 154 H 154 H 167 H Lactic Acid Uric Acid Calcium Magnesium Ferritin Total Bilirubin AST Lactate Dehydrogenase Total Creatine Kinase C-Reactive Protein Total Protein Albumin TSH Urine WBC (Auto) Urine Creatinine Salicylates Acetaminophen Valproic Acid SARS-CoV-2 (PCR) 07/13/22 07/13/22 07/13/22 04:00 04:10 05:14 WBC RBC 3.17 L Hgb Hct MCV 98 H MCH 34 H Plt Count 75 L Seg Neutrophils % Seg Neutrophils # PT APTT D-Dimer ABG pH ABG pO2 ABG HCO3 ABG O2 Saturation ABG Base Excess ABG Hemoglobin Oxyhemoglobin Sodium Potassium Chloride Carbon Dioxide BUN Creatinine 0.4 L Glucose 136 H POC Glucose 140 H Lactic Acid Uric Acid Calcium Magnesium Ferritin Total Bilirubin AST Lactate Dehydrogenase Total Creatine Kinase C-Reactive Protein Total Protein Albumin TSH Urine WBC (Auto) Urine Creatinine Salicylates Acetaminophen Valproic Acid SARS-CoV-2 (PCR) 07/13/22 07/13/22 07/13/22 12:03 14:25 17:19 WBC RBC Hgb Hct MCV MCH Plt Count Seg Neutrophils % Seg Neutrophils # PT APTT D-Dimer ABG pH 7.478 H ABG pO2 118.1 H ABG HCO3 28.2 H ABG O2 Saturation ABG Base Excess 4.5 H ABG Hemoglobin Oxyhemoglobin Sodium Potassium Chloride Carbon Dioxide BUN Creatinine Glucose POC Glucose 193 H 189 H Lactic Acid Uric Acid Calcium Magnesium Ferritin Total Bilirubin AST Lactate Dehydrogenase Total Creatine Kinase C-Reactive Protein Total Protein Albumin TSH Urine WBC (Auto) Urine Creatinine Salicylates Acetaminophen Valproic Acid SARS-CoV-2 (PCR) 07/13/22 07/13/22 07/14/22 23:52 Unknown 06:18 WBC RBC Hgb Hct MCV MCH Plt Count Seg Neutrophils % Seg Neutrophils # PT APTT D-Dimer ABG pH 7.465 H ABG pO2 128.8 H ABG HCO3 29.0 H ABG O2 Saturation ABG Base Excess 4.9 H ABG Hemoglobin 10.3 L Oxyhemoglobin Sodium Potassium Chloride Carbon Dioxide BUN Creatinine Glucose POC Glucose 174 H 167 H Lactic Acid Uric Acid Calcium Magnesium Ferritin Total Bilirubin AST Lactate Dehydrogenase Total Creatine Kinase C-Reactive Protein Total Protein Albumin TSH Urine WBC (Auto) Urine Creatinine Salicylates Acetaminophen Valproic Acid SARS-CoV-2 (PCR) 07/14/22 07/14/22 07/15/22 11:34 17:20 00:25 WBC RBC Hgb Hct MCV MCH Plt Count Seg Neutrophils % Seg Neutrophils # PT APTT D-Dimer ABG pH ABG pO2 ABG HCO3 ABG O2 Saturation ABG Base Excess ABG Hemoglobin Oxyhemoglobin Sodium Potassium Chloride Carbon Dioxide BUN Creatinine Glucose POC Glucose 187 H 221 H 172 H Lactic Acid Uric Acid Calcium Magnesium Ferritin Total Bilirubin AST Lactate Dehydrogenase Total Creatine Kinase C-Reactive Protein Total Protein Albumin TSH Urine WBC (Auto) Urine Creatinine Salicylates Acetaminophen Valproic Acid SARS-CoV-2 (PCR) 07/15/22 07/15/22 07/15/22 04:00 04:00 05:49 WBC 11.4 H RBC 3.13 L Hgb Hct MCV 98 H MCH 33 H Plt Count 98 L Seg Neutrophils % Seg Neutrophils # PT APTT D-Dimer ABG pH ABG pO2 ABG HCO3 ABG O2 Saturation ABG Base Excess ABG Hemoglobin Oxyhemoglobin Sodium Potassium Chloride Carbon Dioxide 34 H BUN Creatinine 0.4 L Glucose 126 H POC Glucose 143 H Lactic Acid Uric Acid Calcium Magnesium Ferritin Total Bilirubin AST Lactate Dehydrogenase Total Creatine Kinase C-Reactive Protein Total Protein Albumin TSH Urine WBC (Auto) Urine Creatinine Salicylates Acetaminophen Valproic Acid SARS-CoV-2 (PCR) 07/15/22 07/15/22 07/16/22 11:19 16:16 00:19 WBC RBC Hgb Hct MCV MCH Plt Count Seg Neutrophils % Seg Neutrophils # PT APTT D-Dimer ABG pH ABG pO2 ABG HCO3 ABG O2 Saturation ABG Base Excess ABG Hemoglobin Oxyhemoglobin Sodium Potassium Chloride Carbon Dioxide BUN Creatinine Glucose POC Glucose 158 H 227 H 153 H Lactic Acid Uric Acid Calcium Magnesium Ferritin Total Bilirubin AST Lactate Dehydrogenase Total Creatine Kinase C-Reactive Protein Total Protein Albumin TSH Urine WBC (Auto) Urine Creatinine Salicylates Acetaminophen Valproic Acid SARS-CoV-2 (PCR) 07/16/22 07/16/22 07/16/22 04:20 04:20 11:28 WBC RBC 3.16 L Hgb Hct MCV 99 H MCH 33 H Plt Count 101 L Seg Neutrophils % Seg Neutrophils # PT APTT D-Dimer ABG pH ABG pO2 ABG HCO3 ABG O2 Saturation ABG Base Excess ABG Hemoglobin Oxyhemoglobin Sodium Potassium Chloride Carbon Dioxide 36 H BUN 18 H Creatinine 0.4 L Glucose 139 H POC Glucose 158 H Lactic Acid Uric Acid Calcium Magnesium Ferritin Total Bilirubin AST Lactate Dehydrogenase Total Creatine Kinase C-Reactive Protein Total Protein Albumin TSH Urine WBC (Auto) Urine Creatinine Salicylates Acetaminophen Valproic Acid SARS-CoV-2 (PCR) 07/16/22 07/17/22 07/17/22 16:30 00:07 05:46 WBC RBC Hgb Hct MCV MCH Plt Count Seg Neutrophils % Seg Neutrophils # PT APTT D-Dimer ABG pH ABG pO2 ABG HCO3 ABG O2 Saturation ABG Base Excess ABG Hemoglobin Oxyhemoglobin Sodium Potassium Chloride Carbon Dioxide BUN Creatinine Glucose POC Glucose 201 H 139 H 123 H Lactic Acid Uric Acid Calcium Magnesium Ferritin Total Bilirubin AST Lactate Dehydrogenase Total Creatine Kinase C-Reactive Protein Total Protein Albumin TSH Urine WBC (Auto) Urine Creatinine Salicylates Acetaminophen Valproic Acid SARS-CoV-2 (PCR) 07/17/22 07/17/22 07/17/22 13:30 17:51 23:49 WBC RBC Hgb Hct MCV MCH Plt Count Seg Neutrophils % Seg Neutrophils # PT APTT D-Dimer ABG pH ABG pO2 ABG HCO3 ABG O2 Saturation ABG Base Excess ABG Hemoglobin Oxyhemoglobin Sodium Potassium Chloride Carbon Dioxide BUN Creatinine Glucose POC Glucose 185 H 219 H 133 H Lactic Acid Uric Acid Calcium Magnesium Ferritin Total Bilirubin AST Lactate Dehydrogenase Total Creatine Kinase C-Reactive Protein Total Protein Albumin TSH Urine WBC (Auto) Urine Creatinine Salicylates Acetaminophen Valproic Acid SARS-CoV-2 (PCR) 07/18/22 07/18/22 07/18/22 04:00 04:00 04:00 WBC 12.2 H RBC 3.34 L Hgb Hct MCV 100 H MCH 33 H Plt Count 113 L Seg Neutrophils % 77.3 H Seg Neutrophils # 9.4 H PT APTT D-Dimer ABG pH 7.508 H ABG pO2 115.9 H ABG HCO3 33.4 H ABG O2 Saturation ABG Base Excess 9.4 H ABG Hemoglobin 11.7 L Oxyhemoglobin Sodium Potassium Chloride Carbon Dioxide 35 H BUN Creatinine 0.4 L Glucose 130 H POC Glucose Lactic Acid Uric Acid Calcium Magnesium Ferritin Total Bilirubin AST Lactate Dehydrogenase Total Creatine Kinase C-Reactive Protein Total Protein Albumin TSH Urine WBC (Auto) Urine Creatinine Salicylates Acetaminophen Valproic Acid SARS-CoV-2 (PCR) 07/18/22 04:42 WBC RBC Hgb Hct MCV MCH Plt Count Seg Neutrophils % Seg Neutrophils # PT APTT D-Dimer ABG pH ABG pO2 ABG HCO3 ABG O2 Saturation ABG Base Excess ABG Hemoglobin Oxyhemoglobin Sodium Potassium Chloride Carbon Dioxide BUN Creatinine Glucose POC Glucose 134 H Lactic Acid Uric Acid Calcium Magnesium Ferritin Total Bilirubin AST Lactate Dehydrogenase Total Creatine Kinase C-Reactive Protein Total Protein Albumin TSH Urine WBC (Auto) Urine Creatinine Salicylates Acetaminophen Valproic Acid SARS-CoV-2 (PCR)
[2022-07-18 13:26] LABS: Free T4 (Free Thyroxine) 0.78 ng/dL (0.76-1.46)
--- NOTE | 2022-07-18 17:37 | Consultation ---
History of Present Illness Consult date: 07/18/22 Requesting physician: CATIE PUGH - History of present illness History of present illness: his is a 76-year-old female from [place] with past medical history includes stroke, hemiplegia, dysphagia, aphasia, dementia, history of pulmonary embolism without acute cor pulmonale, hypothyroidism, and obstructive sleep apnea pre senting to our facility as altered mental status and diminished cognition. Decision made by ER physician to intubated due to concern for airway protection. She is brought to the hospital by emergency medical services with an EMS articulated complaints of altered mental status, diminished cognition, and possible hypoxia. During this admission pt with persistant dep on vent and ng tube feeding. Pt with positive covid on 07/07/22. No further active treatment for covid being given. If she is without new symptoms in 2 more days will go to the OR for tracheostomy and peg tube placement. Past History Past Medical History: other (unable to obtain) Past Surgical History: Other (unable to obtain) Social history: other (unable to obtain) Family history: other (unable to obtain) Medications and Allergies Allergies Allergy/AdvReac Type Severity Reaction Status Date / Time Penicillins Allergy Unknown Verified 07/07/22 18:23 Home Medications Medication Instructions Recorded Confirmed Last Taken Type Apixaban [Eliquis] 5 mg PO BID 07/08/22 07/08/22 Unknown History AtorvaSTATin [Lipitor] 80 mg PO QHS 07/08/22 07/08/22 Unknown History Cholecalciferol Vit D3 [Vitamin D3 1,000 unit PO QDAY 07/08/22 07/08/22 Unknown History 1,000 UNIT TAB] Levothyroxine [Synthroid] 75 mcg PO QAM 07/08/22 07/08/22 Unknown History Melatonin [Melatonin 5MG TAB] 5 mg PO QHS 07/08/22 07/08/22 Unknown History Mirtazapine 7.5 mg PO QHS 07/08/22 07/08/22 Unknown History Omeprazole Magnesium [PriLOSEC Otc] 40 mg PO QDAY 07/08/22 07/08/22 Unknown History VALPROIC ACID Liq [DepaKENE Liq] 250 mg PO Q12H 07/08/22 07/08/22 Unknown History Active Meds: Active Medications Acetaminophen (Acetaminophen 325 Mg/10.15 Ml Oral Liqd Unit Dose) 650 mg FEEDTUBE Q6H PRN PRN Reason: Pain MILD(1-3)/Fever >100.5/LEE Atorvastatin Calcium (Atorvastatin 40 Mg Tab) 80 mg FEEDTUBE QHS [facility] Last Admin: 07/17/22 22:04 Dose: 80 mg Cholecalciferol (Cholecalciferol (Vit D3) 1000 Unit (25 Mcg) Tab) 1,000 unit FEEDTUBE QDAY [facility] Last Admin: 07/18/22 09:55 Dose: 1,000 unit Dextrose (Dextrose 50% In Water (25gm) 50 Ml Syringe) 50 ml IV Q30MIN PRN; Protocol PRN Reason: Hypoglycemia Famotidine (Famotidine 20 Mg Tab) 20 mg FEEDTUBE BID [facility] Last Admin: 07/18/22 09:55 Dose: 20 mg Heparin Sodium (Porcine) (Heparin 5,000 Unit/1 Ml Vial) 5,000 unit SUB-Q Q12H [facility] Last Admin: 07/18/22 05:04 Dose: 5,000 unit Hydrophilic Ointment (Lip Therapy Vaseline) 1 applic TP Q2HR PRN PRN Reason: Dry Lips Insulin Human Lispro (Insulin Lispro 100 Unit/Ml) 0 unit SUB-Q Q6HR [facility]; Pr otocol Last Admin: 07/18/22 12:51 Dose: 1 unit Levothyroxine Sodium (Levothyroxine 75 Mcg Tab) 75 mcg FEEDTUBE QAM@0600 [facility] Last Admin: 07/18/22 05:05 Dose: 75 mcg Multi-Ingred Cream/Lotion/Oil/Oint (Mineral Oil/Petrolatum, White Ophth Oint 3.5 Gm) 1 applic OU Q4HR PRN PRN Reason: Dry Eye(s) Senna/Docusate Sodium (Sennosides/Docusate Sodium 8.6/50 Mg Tab) 1 tab FEEDTUBE BID [facility] Last Admin: 07/18/22 09:57 Dose: Not Given Sodium Chloride (Sodium Chloride 0.9% 10 Ml Flush Syringe) 10 ml IV BID [facility] Last Admin: 07/18/22 09:56 Dose: 10 ml Sodium Chloride (Sodium Chloride 0.9% 10 Ml Flush Syringe) 10 ml IV PRN PRN PRN Reason: LINE FLUSH Valproic Acid (Valproic Acid 250 Mg/5 Ml Oral Liqd) 250 mg FEEDTUBE Q12H [facility] Last Admin: 07/18/22 09:58 Dose: 250 mg Exam Vital Signs Pulse Resp BP Pulse Ox 107 H 20 123/85 90 07/07/22 02:19 07/07/22 02:19 07/07/22 02:19 07/07/22 02:19 - General physical appearance Positive: other (pt intubated and unresponsive.) - Neck Positive: no masses, no bruits - Respiratory Positive: normal expansion - Cardiovascular Rhythm: regular - Extremities Extremities: no ischemia, No edema - Abdomen Abdomen: Present: soft, bowel sounds normal. Absent: distended, masses, rebound, guarding, rigid - Neurologic Neurologic: other (unrespnsive.) Results - Labs 07/18/22 04:00 07/18/22 04:00 Abnormal lab results 07/17/22 07/17/22 07/18/22 Range/Units 17:51 23:49 04:00 WBC 12.2 H (4.5-11.0) K/mm3 RBC 3.34 L (3.65-5.03) M/mm3 MCV 100 H (79-97) fl MCH 33 H (28-32) pg Plt Count 113 L (140-440) K/mm3 Seg Neutrophils % 77.3 H (40.0-70.0) % Seg Neutrophils # 9.4 H (1.8-7.7) K/mm3 ABG pH (7.350-7.450) pH Units ABG pO2 (80.0-90.0) mm Hg ABG HCO3 (20.0-26.0) mmol/L ABG Base Excess (-2.0-3.0) mmol/L ABG Hemoglobin (12.0-16.0) gm/dl Carbon Dioxide (22-30) mmol/L Creatinine (0.6-1.2) mg/dL Glucose (65-100) mg/dL POC Glucose 219 H 133 H (70-105) mg/dL TSH (0.270-4.200) mlU/mL 07/18/22 07/18/22 07/18/22 Range/Units 04:00 04:00 04:42 WBC (4.5-11.0) K/mm3 RBC (3.65-5.03) M/mm3 MCV (79-97) fl MCH (28-32) pg Plt Count (140-440) K/mm3 Seg Neutrophils % (40.0-70.0) % Seg Neutrophils # (1.8-7.7) K/mm3 ABG pH 7.508 H (7.350-7.450) pH Units ABG pO2 115.9 H (80.0-90.0) mm Hg ABG HCO3 33.4 H (20.0-26.0) mmol/L ABG Base Excess 9.4 H (-2.0-3.0) mmol/L ABG Hemoglobin 11.7 L (12.0-16.0) gm/dl Carbon Dioxide 35 H (22-30) mmol/L Creatinine 0.4 L (0.6-1.2) mg/dL Glucose 130 H (65-100) mg/dL POC Glucose 134 H (70-105) mg/dL TSH (0.270-4.200) mlU/mL 07/18/22 Range/Units 12:31 WBC (4.5-11.0) K/mm3 RBC (3.65-5.03) M/mm3 MCV (79-97) fl MCH (28-32) pg Plt Count (140-440) K/mm3 Seg Neutrophils % (40.0-70.0) % Seg Neutrophils # (1.8-7.7) K/mm3 ABG pH (7.350-7.450) pH Units ABG pO2 (80.0-90.0) mm Hg ABG HCO3 (20.0-26.0) mmol/L ABG Base Excess (-2.0-3.0) mmol/L ABG Hemoglobin (12.0-16.0) gm/dl Carbon Dioxide (22-30) mmol/L Creatinine (0.6-1.2) mg/dL Glucose (65-100) mg/dL POC Glucose (70-105) mg/dL TSH 9.750 H (0.270-4.200) mlU/mL Diabetes panel 07/18/22 Range/Units 04:00 Sodium 138 (137-145) mmol/L Potassium 4.2 (3.6-5.0) mmol/L Chloride 98.5 (98-107) mmol/L Carbon Dioxide 35 H (22-30) mmol/L BUN 16 (7-17) mg/dL Creatinine 0.4 L (0.6-1.2) mg/dL Glucose 130 H (65-100) mg/dL Calcium 8.7 (8.4-10.2) mg/dL Thyroid panel 07/18/22 Range/Units 12:31 TSH 9.750 H (0.270-4.200) mlU/mL Thyroxine (T4) 6.2 (4.0-12.0) ug/dL Calcium panel 07/18/22 Range/Units 04:00 Calcium 8.7 (8.4-10.2) mg/dL Pituitary panel 07/18/22 07/18/22 Range/Units 04:00 12:31 Sodium 138 (137-145) mmol/L Potassium 4.2 (3.6-5.0) mmol/L Chloride 98.5 (98-107) mmol/L Carbon Dioxide 35 H (22-30) mmol/L BUN 16 (7-17) mg/dL Creatinine 0.4 L (0.6-1.2) mg/dL Glucose 130 H (65-100) mg/dL Calcium 8.7 (8.4-10.2) mg/dL TSH 9.750 H (0.270-4.200) mlU/mL Thyroxine (T4) 6.2 (4.0-12.0) ug/dL Adrenal panel 07/18/22 Range/Units 04:00 Sodium 138 (137-145) mmol/L Potassium 4.2 (3.6-5.0) mmol/L Chloride 98.5 (98-107) mmol/L Carbon Dioxide 35 H (22-30) mmol/L BUN 16 (7-17) mg/dL Creatinine 0.4 L (0.6-1.2) mg/dL Glucose 130 H (65-100) mg/dL Calcium 8.7 (8.4-10.2) mg/dL Assessment and Plan During this admission pt with persistant dep on vent and ng tube feeding. Pt with positive covid on 07/07/22. No further active treatment for covid being given. If she is without new symptoms in 2 more days will go to the OR for tracheostomy and peg tube placement.
[2022-07-19] MEDS: INSULIN LISPRO 100 UNIT/ML SUB-Q SCH ×4 (00:45→17:43)
[2022-07-19] MEDS: HEPARIN 5,000 UNIT/1 ML VIAL SUB-Q SCH ×2 (05:34→17:47)
[2022-07-19] MEDS: LEVOTHYROXINE 75 MCG TAB FEEDTUBE SCH (05:34)
[2022-07-19] MEDS: SENNOSIDES/DOCUSATE SODIUM 8.6/50 MG TAB FEEDTUBE SCH ×2 (09:09→21:14)
[2022-07-19] MEDS: FAMOTIDINE 20 MG TAB FEEDTUBE SCH ×2 (09:23→21:14)
[2022-07-19] MEDS: VALPROIC ACID 250 MG/5 ML ORAL LIQD FEEDTUBE SCH ×2 (09:23→21:14)
[2022-07-19] MEDS: CHOLECALCIFEROL (VIT D3) 1000 UNIT (25 mcg) TAB FEEDTUBE SCH (09:23)
--- NOTE | 2022-07-19 12:27 | Progress Note ---
Assessment and Plan 76 y/o female with acute respiratory failure secondary to altered mental status, most likely from electrolyte abnormalities seen on chemistry, found to be COVID positive. 07/19/22: Appreciate Surgery. on Schedule for next week. Free T4 was normal. No current indication for stress dose steroids. Continue supportive care. 07/18/22: Family meeting: Discussed current mental state. Discussed negative work up so far to explain why mental state hasnt improved. Per family here, patient was better than what she is not but I had difficult time placing a time frame as to when that was, maybe May. It does appear that she has had a steady decline mentally and even stopped eating. There were talks prior to her admission here about Peg tube placement. Discussed the idea of trach and peg placement. Also explained to family that trach does not fix any underlying reason as to why the patient's mental state is the way it is. The family wasn't aware that she was brought in for altered mental status, they were told she had bradycardia. Nonetheless, the family as a whole wish to pursue trach and peg placement. Consulted Surgery and hopeful they will see soon. Continue supportive measures and continue daily PSV trials. TSH on admit was 13, will repeat but if T4 is normal, nothing to do. She also is not behaving like myxede ma coma. Guarded prognosis. 07/17/22: steroids end today. Continue daily PSV trials. Will speak with family about next steps as today is day 10 of intubation and it does not appear that conventional extubation is in the near future. 07/16/22: Continue daily PSV trials. Will speak with family tomorrow as patient is not improving enough for conventional extubation, especially with frequent apnic events. Most likely patient will need trach and peg. 07/15/22: mental status is still unchanged. Eyes open but not tracking or following commands. Also going apnic on PSV trials. Most likely will need trach and peg given mental status has not improved. 07/12/22: Negative MRI for acute infarct. Na is normal. Continue to monitor. Daily PSV trials. Has been intubated now for 5 days. 07/11/22: for MRI today. Appreciate renal help, agree with signing off. Attempt daily PSV. Guarded prognosis. 07/10: follow up MRI. Get official EEG read but no status. Continue daily PSV trials. Guarded prognosis 07/09/22: Continue supportive measures. Continue to fix Na, if no improvement in mental state with normal sodium then will pursue MRI. Picc placed today. 07/08/22: No further sedation. 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 Consider neurology consult and may need to obtain MRI. Attempt PSV trials today. needs Picc line placed for nursing home access as patient is a difficult stick. Feed patient and monitor lytes. 1. Discontinue sedation 2. Wean FiO2 for sats >88% and PaO2 greater than 60 3. Agree with fluid resuscitation, patient needs free water 4. Will follow up with family to find out exactly what patient mental status was a facility CCT 31 minutes. Subjective Date of service: 07/19/22 Principal diagnosis: Hypernatremia Interval history: No acute events. Objective Vital Signs - 12hr 07/19/22 07/19/22 07/19/22 00:31 00:34 01:01 Temperature Pulse Rate 97 H 103 H 105 H Pulse Rate [ From Monitor] Respiratory 10 L 12 Rate Blood Pressure 90/49 90/49 120/67 O2 Sat by Pulse 100 100 100 Oximetry 07/19/22 07/19/22 07/19/22 01:03 01:31 02:00 Temperature Pulse Rate 116 H 116 H 115 H Pulse Rate [ From Monitor] Respiratory 14 13 11 L Rate Blood Pressure 119/67 124/75 O2 Sat by Pulse 100 98 99 Oximetry 07/19/22 07/19/22 07/19/22 02:31 03:00 03:31 Temperature Pulse Rate 105 H 108 H 112 H Pulse Rate [ From Monitor] Respiratory 11 L 13 14 Rate Blood Pressure 124/75 109/65 109/65 O2 Sat by Pulse 98 98 100 Oximetry 07/19/22 07/19/22 07/19/22 04:00 04:31 04:41 Temperature 99.5 F Pulse Rate 91 H 109 H 128 H Pulse Rate [ From Monitor] Respiratory 11 L 13 Rate Blood Pressure 108/57 108/57 108/57 O2 Sat by Pulse 97 100 97 Oximetry 07/19/22 07/19/22 07/19/22 05:00 05:20 05:31 Temperature Pulse Rate 112 H 112 H 125 H Pulse Rate [ From Monitor] Respiratory 13 14 20 Rate Blood Pressure 113/59 108/57 O2 Sat by Pulse 99 100 99 Oximetry 07/19/22 07/19/22 07/19/22 06:00 06:18 06:30 Temperature Pulse Rate 114 H 114 H 103 H Pulse Rate [ From Monitor] Respiratory 13 12 Rate Blood Pressure 123/75 113/59 O2 Sat by Pulse 100 99 Oximetry 07/19/22 07/19/22 07/19/22 07:00 07:30 08:00 Temperature 98.8 F Pulse Rate 118 H 107 H 115 H Pulse Rate [ 111 H From Monitor] Respiratory 14 11 L 15 Rate Blood Pressure 123/75 122/76 129/69 O2 Sat by Pulse 99 100 100 Oximetry 07/19/22 07/19/22 07/19/22 08:30 09:00 09:30 Temperature Pulse Rate 114 H 115 H 113 H Pulse Rate [ From Monitor] Respiratory 13 14 15 Rate Blood Pressure 122/76 106/61 106/61 O2 Sat by Pulse 99 100 99 Oximetry 07/19/22 07/19/22 07/19/22 09:35 09:40 10:00 Temperature Pulse Rate 118 H 122 H 113 H Pulse Rate [ From Monitor] Respiratory 11 L 12 Rate Blood Pressure 106/61 106/61 100/58 O2 Sat by Pulse 100 100 100 Oximetry 07/19/22 07/19/22 10:30 11:00 Temperature Pulse Rate 102 H 110 H Pulse Rate [ From Monitor] Respiratory 10 L 10 L Rate Blood Pressure 100/58 118/61 O2 Sat by Pulse 99 99 Oximetry Constitutional: comatose ENT: other (orally intubated) Neck: supple Effort: normal Ascultation: Bilateral: clear Percussion: Bilateral: not dull Cardiovascular: regular rate and rhythm Gastrointestinal: normoactive bowel sounds, soft Extremities: no cyanosis, no edema Neurologic: unable to assess CBC and BMP: 07/18/22 04:00 07/18/22 04:00 ABG, PT/INR, D-dimer: ABG ABG pH 7.508 pH Units (7.350-7.450) H 07/18/22 04:00 ABG pCO2 42.9 mm Hg 07/18/22 04:00 ABG pO2 115.9 mm Hg (80.0-90.0) H 07/18/22 04:00 ABG O2 Saturation 98.3 % (95.0-99.0) 07/18/22 04:00 PT/INR, D-dimer PT 15.0 Sec. (12.2-14.9) H 07/07/22 03:38 INR 1.06 (0.87-1.13) 07/07/22 03:38 D-Dimer 925.80 ng/mlDDU (0-234) H 07/12/22 04:00 Abnormal lab findings: Abnormal Labs 07/07/22 07/07/22 07/07/22 03:17 03:38 03:38 WBC RBC 5.43 H Hgb 18.2 H Hct 54.9 H MCV 101 H MCH 34 H Plt Count 104 L Seg Neutrophils % Seg Neutrophils # PT 15.0 H APTT 23.0 L D-Dimer ABG pH ABG pO2 ABG HCO3 ABG O2 Saturation ABG Base Excess ABG Hemoglobin Oxyhemoglobin Sodium Potassium Chloride Carbon Dioxide BUN Creatinine Glucose POC Glucose Lactic Acid Uric Acid Calcium Magnesium Ferritin Total Bilirubin AST Lactate Dehydrogenase Total Creatine Kinase C-Reactive Protein Total Protein Albumin TSH Urine WBC (Auto) 7.0 H Urine Creatinine Salicylates Acetaminophen Valproic Acid SARS-CoV-2 (PCR) 07/07/22 07/07/22 07/07/22 03:38 03:38 03:38 WBC RBC Hgb Hct MCV MCH Plt Count Seg Neutrophils % Seg Neutrophils # PT APTT D-Dimer ABG pH ABG pO2 ABG HCO3 ABG O2 Saturation ABG Base Excess ABG Hemoglobin Oxyhemoglobin Sodium Potassium Chloride Carbon Dioxide BUN Creatinine Glucose POC Glucose Lactic Acid Uric Acid Calcium Magnesium 3.30 H Ferritin Total Bilirubin AST Lactate Dehydrogenase Total Creatine Kinase 1826 H C-Reactive Protein Total Protein Albumin TSH Urine WBC (Auto) Urine Creatinine Salicylates < 0.3 L Acetaminophen 5.0 L Valproic Acid 7.0 L SARS-CoV-2 (PCR) 07/07/22 07/07/22 07/07/22 04:17 04:17 04:17 WBC RBC Hgb Hct MCV MCH Plt Count Seg Neutrophils % Seg Neutrophils # PT APTT D-Dimer ABG pH ABG pO2 ABG HCO3 ABG O2 Saturation ABG Base Excess ABG Hemoglobin Oxyhemoglobin Sodium 168 H* Potassium 3.2 L Chloride 122.2 H Carbon Dioxide BUN 52 H Creatinine Glucose 158 H POC Glucose Lactic Acid 3.50 H* Uric Acid Calcium 10.9 H Magnesium Ferritin Total Bilirubin 1.40 H AST 47 H Lactate Dehydrogenase Total Creatine Kinase C-Reactive Protein Total Protein Albumin TSH 12.790 H Urine WBC (Auto) Urine Creatinine Salicylates Acetaminophen Valproic Acid SARS-CoV-2 (PCR) 07/07/22 07/07/22 07/07/22 04:17 07:43 09:35 WBC RBC Hgb Hct MCV MCH Plt Count Seg Neutrophils % Seg Neutrophils # PT APTT D-Dimer ABG pH ABG pO2 377.3 H ABG HCO3 ABG O2 Saturation 99.6 H ABG Base Excess -2.5 L ABG Hemoglobin Oxyhemoglobin Sodium Potassium Chloride Carbon Dioxide BUN Creatinine Glucose POC Glucose Lactic Acid 6.30 H* Uric Acid 13.5 H Calcium Magnesium Ferritin Total Bilirubin AST Lactate Dehydrogenase Total Creatine Kinase C-Reactive Protein Total Protein Albumin TSH Urine WBC (Auto) Urine Creatinine Salicylates Acetaminophen Valproic Acid SARS-CoV-2 (PCR) 07/07/22 07/07/22 07/07/22 15:00 16:00 16:00 WBC RBC Hgb Hct MCV MCH Plt Count Seg Neutrophils % Seg Neutrophils # PT APTT D-Dimer ABG pH ABG pO2 ABG HCO3 ABG O2 Saturation ABG Base Excess ABG Hemoglobin Oxyhemoglobin Sodium 166 H* Potassium Chloride 124.8 H Carbon Dioxide 20 L BUN 41 H Creatinine Glucose 157 H POC Glucose Lactic Acid 7.00 H* Uric Acid Calcium Magnesium Ferritin Total Bilirubin AST 81 H Lactate Dehydrogenase Total Creatine Kinase C-Reactive Protein Total Protein Albumin TSH Urine WBC (Auto) Urine Creatinine Salicylates Acetaminophen Valproic Acid SARS-CoV-2 (PCR) Positive A 07/07/22 07/07/22 07/07/22 16:45 23:42 23:42 WBC RBC Hgb Hct MCV MCH Plt Count Seg Neutrophils % Seg Neutrophils # PT APTT D-Dimer ABG pH ABG pO2 ABG HCO3 ABG O2 Saturation ABG Base Excess ABG Hemoglobin Oxyhemoglobin Sodium 165 H* Potassium 3.0 L Chloride 122.8 H Carbon Dioxide BUN 38 H Creatinine Glucose 232 H POC Glucose Lactic Acid 5.60 H* Uric Acid Calcium Magnesium Ferritin Total Bilirubin AST Lactate Dehydrogenase Total Creatine Kinase C-Reactive Protein Total Protein Albumin TSH Urine WBC (Auto) Urine Creatinine 92.9 H Salicylates Acetaminophen Valproic Acid SARS-CoV-2 (PCR) 07/07/22 07/07/22 07/08/22 Unknown Unknown 05:30 WBC RBC Hgb Hct MCV MCH Plt Count Seg Neutrophils % Seg Neutrophils # PT APTT D-Dimer ABG pH 7.553 H 7.473 H ABG pO2 61.7 L 121.7 H ABG HCO3 ABG O2 Saturation 94.7 L ABG Base Excess 4.3 H ABG Hemoglobin 18.0 H Oxyhemoglobin 93.1 L Sodium 163 H* Potassium 6.3 H* D Chloride 123.7 H Carbon Dioxide BUN 42 H Creatinine Glucose 169 H POC Glucose Lactic Acid Uric Acid Calcium Magnesium Ferritin Total Bilirubin AST Lactate Dehydrogenase Total Creatine Kinase C-Reactive Protein Total Protein Albumin TSH Urine WBC (Auto) Urine Creatinine Salicylates Acetaminophen Valproic Acid SARS-CoV-2 (PCR) 07/08/22 07/08/22 07/08/22 05:36 11:21 14:54 WBC 11.1 H RBC Hgb Hct MCV 101 H MCH 33 H Plt Count 69 L Seg Neutrophils % 82.0 H Seg Neutrophils # 9.1 H PT APTT D-Dimer ABG pH ABG pO2 ABG HCO3 ABG O2 Saturation ABG Base Excess ABG Hemoglobin Oxyhemoglobin Sodium Potassium Chloride Carbon Dioxide BUN Creatinine Glucose POC Glucose 174 H 148 H Lactic Acid Uric Acid Calcium Magnesium Ferritin Total Bilirubin AST Lactate Dehydrogenase Total Creatine Kinase C-Reactive Protein Total Protein Albumin TSH Urine WBC (Auto) Urine Creatinine Salicylates Acetaminophen Valproic Acid SARS-CoV-2 (PCR) 07/08/22 07/08/22 07/08/22 14:54 14:54 14:54 WBC RBC Hgb Hct MCV MCH Plt Count Seg Neutrophils % Seg Neutrophils # PT APTT D-Dimer ABG pH ABG pO2 ABG HCO3 ABG O2 Saturation ABG Base Excess ABG Hemoglobin Oxyhemoglobin Sodium 163 H* Potassium 2.9 L* Chloride 123.7 H Carbon Dioxide BUN 30 H Creatinine Glucose 161 H POC Glucose Lactic Acid 6.10 H* Uric Acid Calcium Magnesium Ferritin Total Bilirubin AST 69 H Lactate Dehydrogenase Total Creatine Kinase 2335 H C-Reactive Protein Total Protein 5.6 L D Albumin 3.1 L TSH Urine WBC (Auto) Urine Creatinine Salicylates Acetaminophen Valproic Acid SARS-CoV-2 (PCR) 07/08/22 07/08/22 07/08/22 14:54 14:54 14:54 WBC RBC Hgb Hct MCV MCH Plt Count Seg Neutrophils % Seg Neutrophils # PT APTT D-Dimer 499.72 H ABG pH ABG pO2 ABG HCO3 ABG O2 Saturation ABG Base Excess ABG Hemoglobin Oxyhemoglobin Sodium Potassium Chloride Carbon Dioxide BUN Creatinine Glucose POC Glucose Lactic Acid Uric Acid Calcium Magnesium Ferritin 722.1 H Total Bilirubin AST Lactate Dehydrogenase 455 H Total Creatine Kinase C-Reactive Protein 1.60 H Total Protein Albumin TSH Urine WBC (Auto) Urine Creatinine Salicylates Acetaminophen Valproic Acid SARS-CoV-2 (PCR) 07/08/22 07/08/22 07/09/22 19:13 19:53 00:09 WBC RBC Hgb Hct MCV MCH Plt Count Seg Neutrophils % Seg Neutrophils # PT APTT D-Dimer ABG pH ABG pO2 ABG HCO3 ABG O2 Saturation ABG Base Excess ABG Hemoglobin Oxyhemoglobin Sodium 160 H Potassium 3.5 L D Chloride 122.0 H Carbon Dioxide 20 L BUN 28 H Creatinine Glucose 151 H POC Glucose 138 H Lactic Acid 5.70 H* Uric Acid Calcium Magnesium Ferritin Total Bilirubin AST Lactate Dehydrogenase Total Creatine Kinase C-Reactive Protein Total Protein Albumin TSH Urine WBC (Auto) Urine Creatinine Salicylates Acetaminophen Valproic Acid SARS-CoV-2 (PCR) 07/09/22 07/09/22 07/09/22 00:45 03:21 03:21 WBC RBC Hgb Hct MCV MCH Plt Count Seg Neutrophils % Seg Neutrophils # PT APTT D-Dimer ABG pH ABG pO2 ABG HCO3 ABG O2 Saturation ABG Base Excess ABG Hemoglobin Oxyhemoglobin Sodium 158 H 157 H Potassium Chloride 124.2 H 125.0 H Carbon Dioxide 20 L 20 L BUN 25 H 24 H Creatinine Glucose 147 H 169 H POC Glucose Lactic Acid 4.70 H* Uric Acid Calcium Magnesium Ferritin Total Bilirubin AST 81 H Lactate Dehydrogenase Total Creatine Kinase C-Reactive Protein Total Protein 5.7 L Albumin 2.8 L TSH Urine WBC (Auto) Urine Creatinine Salicylates Acetaminophen Valproic Acid SARS-CoV-2 (PCR) 07/09/22 07/09/22 07/09/22 04:40 05:35 08:14 WBC RBC Hgb Hct MCV 102 H MCH 33 H Plt Count 74 L Seg Neutrophils % Seg Neutrophils # PT APTT D-Dimer ABG pH ABG pO2 172.1 H ABG HCO3 ABG O2 Saturation 99.1 H ABG Base Excess -2.8 L ABG Hemoglobin Oxyhemoglobin Sodium Potassium Chloride Carbon Dioxide BUN Creatinine Glucose POC Glucose 108 H Lactic Acid Uric Acid Calcium Magnesium Ferritin Total Bilirubin AST Lactate Dehydrogenase Total Creatine Kinase C-Reactive Protein Total Protein Albumin TSH Urine WBC (Auto) Urine Creatinine Salicylates Acetaminophen Valproic Acid SARS-CoV-2 (PCR) 07/09/22 07/09/22 07/09/22 11:16 11:27 16:20 WBC RBC Hgb Hct MCV MCH Plt Count Seg Neutrophils % Seg Neutrophils # PT APTT D-Dimer ABG pH ABG pO2 ABG HCO3 ABG O2 Saturation ABG Base Excess ABG Hemoglobin Oxyhemoglobin Sodium 155 H Potassium Chloride 121.3 H Carbon Dioxide BUN 21 H Creatinine Glucose 170 H POC Glucose 173 H 190 H Lactic Acid Uric Acid Calcium Magnesium Ferritin Total Bilirubin AST Lactate Dehydrogenase Total Creatine Kinase C-Reactive Protein Total Protein Albumin TSH Urine WBC (Auto) Urine Creatinine Salicylates Acetaminophen Valproic Acid SARS-CoV-2 (PCR) 07/09/22 07/10/22 07/10/22 17:16 00:04 04:21 WBC RBC Hgb Hct MCV MCH Plt Count Seg Neutrophils % Seg Neutrophils # PT APTT D-Dimer ABG pH ABG pO2 ABG HCO3 ABG O2 Saturation ABG Base Excess ABG Hemoglobin Oxyhemoglobin Sodium 149 H 150 H Potassium Chloride 115.6 H 115.0 H Carbon Dioxide BUN 18 H Creatinine 0.5 L Glucose 207 H 178 H POC Glucose 180 H Lactic Acid Uric Acid Calcium 7.9 L Magnesium Ferritin Total Bilirubin AST 89 H Lactate Dehydrogenase 431 H Total Creatine Kinase C-Reactive Protein Total Protein 4.9 L Albumin 2.5 L TSH Urine WBC (Auto) Urine Creatinine Salicylates Acetaminophen Valproic Acid SARS-CoV-2 (PCR) 07/10/22 07/10/22 07/10/22 04:21 04:21 04:21 WBC 11.8 H RBC 3.52 L Hgb Hct MCV 99 H MCH 33 H Plt Count 67 L Seg Neutrophils % Seg Neutrophils # PT APTT D-Dimer 585.71 H ABG pH ABG pO2 ABG HCO3 ABG O2 Saturation ABG Base Excess ABG Hemoglobin Oxyhemoglobin Sodium Potassium Chloride Carbon Dioxide BUN Creatinine Glucose POC Glucose Lactic Acid Uric Acid Calcium Magnesium Ferritin 631.3 H Total Bilirubin AST Lactate Dehydrogenase Total Creatine Kinase C-Reactive Protein Total Protein Albumin TSH Urine WBC (Auto) Urine Creatinine Salicylates Acetaminophen Valproic Acid SARS-CoV-2 (PCR) 07/10/22 07/10/22 07/10/22 04:21 04:55 05:26 WBC RBC Hgb Hct MCV MCH Plt Count Seg Neutrophils % Seg Neutrophils # PT APTT D-Dimer ABG pH ABG pO2 76.8 L ABG HCO3 ABG O2 Saturation ABG Base Excess ABG Hemoglobin 10.4 L Oxyhemoglobin 94.5 L Sodium Potassium Chloride Carbon Dioxide BUN Creatinine Glucose POC Glucose 147 H Lactic Acid 2.50 H* Uric Acid Calcium Magnesium Ferritin Total Bilirubin AST Lactate Dehydrogenase Total Creatine Kinase C-Reactive Protein Total Protein Albumin TSH Urine WBC (Auto) Urine Creatinine Salicylates Acetaminophen Valproic Acid SARS-CoV-2 (PCR) 07/10/22 07/10/22 07/10/22 08:24 11:31 12:53 WBC RBC Hgb Hct MCV MCH Plt Count Seg Neutrophils % Seg Neutrophils # PT APTT D-Dimer ABG pH ABG pO2 ABG HCO3 ABG O2 Saturation ABG Base Excess ABG Hemoglobin Oxyhemoglobin Sodium Potassium Chloride 110.9 H Carbon Dioxide BUN Creatinine 0.5 L Glucose 200 H POC Glucose 166 H Lactic Acid 2.10 H* Uric Acid Calcium 8.3 L Magnesium Ferritin Total Bilirubin AST Lactate Dehydrogenase Total Creatine Kinase C-Reactive Protein Total Protein Albumin TSH Urine WBC (Auto) Urine Creatinine Salicylates Acetaminophen Valproic Acid SARS-CoV-2 (PCR) 07/10/22 07/10/22 07/10/22 17:37 18:53 23:30 WBC RBC Hgb Hct MCV MCH Plt Count Seg Neutrophils % Seg Neutrophils # PT APTT D-Dimer ABG pH ABG pO2 ABG HCO3 ABG O2 Saturation ABG Base Excess ABG Hemoglobin Oxyhemoglobin Sodium Potassium Chloride 109.5 H 110.2 H Carbon Dioxide BUN Creatinine 0.5 L 0.5 L Glucose 243 H 208 H POC Glucose 237 H Lactic Acid Uric Acid Calcium 8.1 L 8.1 L Magnesium Ferritin Total Bilirubin AST Lactate Dehydrogenase Total Creatine Kinase C-Reactive Protein Total Protein Albumin TSH Urine WBC (Auto) Urine Creatinine Salicylates Acetaminophen Valproic Acid SARS-CoV-2 (PCR) 07/10/22 07/11/22 07/11/22 23:57 04:00 04:15 WBC 11.2 H RBC Hgb Hct MCV 99 H MCH Plt Count 73 L Seg Neutrophils % Seg Neutrophils # PT APTT D-Dimer ABG pH ABG pO2 107.4 H ABG HCO3 ABG O2 Saturation ABG Base Excess ABG Hemoglobin Oxyhemoglobin Sodium Potassium Chloride Carbon Dioxide BUN Creatinine Glucose POC Glucose 195 H Lactic Acid Uric Acid Calcium Magnesium Ferritin Total Bilirubin AST Lactate Dehydrogenase Total Creatine Kinase C-Reactive Protein Total Protein Albumin TSH Urine WBC (Auto) Urine Creatinine Salicylates Acetaminophen Valproic Acid SARS-CoV-2 (PCR) 07/11/22 07/11/22 07/11/22 05:40 05:40 06:06 WBC RBC Hgb Hct MCV MCH Plt Count Seg Neutrophils % Seg Neutrophils # PT APTT D-Dimer ABG pH ABG pO2 ABG HCO3 ABG O2 Saturation ABG Base Excess ABG Hemoglobin Oxyhemoglobin Sodium Potassium Chloride 109.8 H Carbon Dioxide BUN Creatinine 0.5 L Glucose 160 H POC Glucose 145 H Lactic Acid Uric Acid Calcium 8.3 L Magnesium Ferritin Total Bilirubin AST Lactate Dehydrogenase Total Creatine Kinase 1745 H C-Reactive Protein Total Protein Albumin TSH Urine WBC (Auto) Urine Creatinine Salicylates Acetaminophen Valproic Acid SARS-CoV-2 (PCR) 07/11/22 07/11/22 07/11/22 11:55 11:59 17:44 WBC RBC Hgb Hct MCV MCH Plt Count Seg Neutrophils % Seg Neutrophils # PT APTT D-Dimer ABG pH ABG pO2 ABG HCO3 ABG O2 Saturation ABG Base Excess ABG Hemoglobin Oxyhemoglobin Sodium Potassium Chloride 107.8 H Carbon Dioxide BUN Creatinine 0.5 L Glucose 150 H POC Glucose 150 H 182 H Lactic Acid Uric Acid Calcium 8.2 L Magnesium Ferritin Total Bilirubin AST Lactate Dehydrogenase Total Creatine Kinase C-Reactive Protein Total Protein Albumin TSH Urine WBC (Auto) Urine Creatinine Salicylates Acetaminophen Valproic Acid SARS-CoV-2 (PCR) 07/11/22 07/12/22 07/12/22 17:50 00:10 00:12 WBC RBC Hgb Hct MCV MCH Plt Count Seg Neutrophils % Seg Neutrophils # PT APTT D-Dimer ABG pH ABG pO2 ABG HCO3 ABG O2 Saturation ABG Base Excess ABG Hemoglobin Oxyhemoglobin Sodium Potassium Chloride 108.4 H Carbon Dioxide BUN Creatinine 0.5 L 0.4 L Glucose 191 H 163 H POC Glucose 154 H Lactic Acid Uric Acid Calcium 8.2 L 7.9 L Magnesium Ferritin Total Bilirubin AST Lactate Dehydrogenase Total Creatine Kinase C-Reactive Protein Total Protein Albumin TSH Urine WBC (Auto) Urine Creatinine Salicylates Acetaminophen Valproic Acid SARS-CoV-2 (PCR) 07/12/22 07/12/2222 04:00 04:00 04:00 WBC RBC Hgb Hct MCV MCH Plt Count Seg Neutrophils % Seg Neutrophils # PT APTT D-Dimer 925.80 H ABG pH ABG pO2 ABG HCO3 ABG O2 Saturation ABG Base Excess ABG Hemoglobin Oxyhemoglobin Sodium Potassium Chloride Carbon Dioxide BUN Creatinine Glucose POC Glucose Lactic Acid Uric Acid Calcium Magnesium Ferritin 519.5 H Total Bilirubin AST Lactate Dehydrogenase 444 H Total Creatine Kinase C-Reactive Protein Total Protein Albumin TSH Urine WBC (Auto) Urine Creatinine Salicylates Acetaminophen Valproic Acid SARS-CoV-2 (PCR) 07/12/22 07/12/22 07/12/22 04:00 05:00 05:03 WBC 11.7 H RBC 3.33 L Hgb Hct MCV 99 H MCH 33 H Plt Count 68 L Seg Neutrophils % Seg Neutrophils # PT APTT D-Dimer ABG pH 7.453 H ABG pO2 107.9 H ABG HCO3 27.9 H ABG O2 Saturation ABG Base Excess 3.7 H ABG Hemoglobin 10.9 L Oxyhemoglobin Sodium Potassium Chloride Carbon Dioxide BUN Creatinine Glucose POC Glucose 174 H Lactic Acid Uric Acid Calcium Magnesium Ferritin Total Bilirubin AST Lactate Dehydrogenase Total Creatine Kinase C-Reactive Protein Total Protein Albumin TSH Urine WBC (Auto) Urine Creatinine Salicylates Acetaminophen Valproic Acid SARS-CoV-2 (PCR) 07/12/22 07/12/22 07/12/22 12:15 17:18 23:14 WBC RBC Hgb Hct MCV MCH Plt Count Seg Neutrophils % Seg Neutrophils # PT APTT D-Dimer ABG pH ABG pO2 ABG HCO3 ABG O2 Saturation ABG Base Excess ABG Hemoglobin Oxyhemoglobin Sodium Potassium Chloride Carbon Dioxide BUN Creatinine Glucose POC Glucose 154 H 154 H 167 H Lactic Acid Uric Acid Calcium Magnesium Ferritin Total Bilirubin AST Lactate Dehydrogenase Total Creatine Kinase C-Reactive Protein Total Protein Albumin TSH Urine WBC (Auto) Urine Creatinine Salicylates Acetaminophen Valproic Acid SARS-CoV-2 (PCR) 07/13/22 07/13/22 07/13/22 04:00 04:10 05:14 WBC RBC 3.17 L Hgb Hct MCV 98 H MCH 34 H Plt Count 75 L Seg Neutrophils % Seg Neutrophils # PT APTT D-Dimer ABG pH ABG pO2 ABG HCO3 ABG O2 Saturation ABG Base Excess ABG Hemoglobin Oxyhemoglobin Sodium Potassium Chloride Carbon Dioxide BUN Creatinine 0.4 L Glucose 136 H POC Glucose 140 H Lactic Acid Uric Acid Calcium Magnesium Ferritin Total Bilirubin AST Lactate Dehydrogenase Total Creatine Kinase C-Reactive Protein Total Protein Albumin TSH Urine WBC (Auto) Urine Creatinine Salicylates Acetaminophen Valproic Acid SARS-CoV-2 (PCR) 07/13/22 07/13/22 07/13/22 12:03 14:25 17:19 WBC RBC Hgb Hct MCV MCH Plt Count Seg Neutrophils % Seg Neutrophils # PT APTT D-Dimer ABG pH 7.478 H ABG pO2 118.1 H ABG HCO3 28.2 H ABG O2 Saturation ABG Base Excess 4.5 H ABG Hemoglobin Oxyhemoglobin Sodium Potassium Chloride Carbon Dioxide BUN Creatinine Glucose POC Glucose 193 H 189 H Lactic Acid Uric Acid Calcium Magnesium Ferritin Total Bilirubin AST Lactate Dehydrogenase Total Creatine Kinase C-Reactive Protein Total Protein Albumin TSH Urine WBC (Auto) Urine Creatinine Salicylates Acetaminophen Valproic Acid SARS-CoV-2 (PCR) 07/13/22 07/13/22 07/14/22 23:52 Unknown 06:18 WBC RBC Hgb Hct MCV MCH Plt Count Seg Neutrophils % Seg Neutrophils # PT APTT D-Dimer ABG pH 7.465 H ABG pO2 128.8 H ABG HCO3 29.0 H ABG O2 Saturation ABG Base Excess 4.9 H ABG Hemoglobin 10.3 L Oxyhemoglobin Sodium Potassium Chloride Carbon Dioxide BUN Creatinine Glucose POC Glucose 174 H 167 H Lactic Acid Uric Acid Calcium Magnesium Ferritin Total Bilirubin AST Lactate Dehydrogenase Total Creatine Kinase C-Reactive Protein Total Protein Albumin TSH Urine WBC (Auto) Urine Creatinine Salicylates Acetaminophen Valproic Acid SARS-CoV-2 (PCR) 07/14/22 07/14/22 07/15/22 11:34 17:20 00:25 WBC RBC Hgb Hct MCV MCH Plt Count Seg Neutrophils % Seg Neutrophils # PT APTT D-Dimer ABG pH ABG pO2 ABG HCO3 ABG O2 Saturation ABG Base Excess ABG Hemoglobin Oxyhemoglobin Sodium Potassium Chloride Carbon Dioxide BUN Creatinine Glucose POC Glucose 187 H 221 H 172 H Lactic Acid Uric Acid Calcium Magnesium Ferritin Total Bilirubin AST Lactate Dehydrogenase Total Creatine Kinase C-Reactive Protein Total Protein Albumin TSH Urine WBC (Auto) Urine Creatinine Salicylates Acetaminophen Valproic Acid SARS-CoV-2 (PCR) 07/15/22 07/15/22 07/15/22 04:00 04:00 05:49 WBC 11.4 H RBC 3.13 L Hgb Hct MCV 98 H MCH 33 H Plt Count 98 L Seg Neutrophils % Seg Neutrophils # PT APTT D-Dimer ABG pH ABG pO2 ABG HCO3 ABG O2 Saturation ABG Base Excess ABG Hemoglobin Oxyhemoglobin Sodium Potassium Chloride Carbon Dioxide 34 H BUN Creatinine 0.4 L Glucose 126 H POC Glucose 143 H Lactic Acid Uric Acid Calcium Magnesium Ferritin Total Bilirubin AST Lactate Dehydrogenase Total Creatine Kinase C-Reactive Protein Total Protein Albumin TSH Urine WBC (Auto) Urine Creatinine Salicylates Acetaminophen Valproic Acid SARS-CoV-2 (PCR) 07/15/22 07/15/22 07/16/22 11:19 16:16 00:19 WBC RBC Hgb Hct MCV MCH Plt Count Seg Neutrophils % Seg Neutrophils # PT APTT D-Dimer ABG pH ABG pO2 ABG HCO3 ABG O2 Saturation ABG Base Excess ABG Hemoglobin Oxyhemoglobin Sodium Potassium Chloride Carbon Dioxide BUN Creatinine Glucose POC Glucose 158 H 227 H 153 H Lactic Acid Uric Acid Calcium Magnesium Ferritin Total Bilirubin AST Lactate Dehydrogenase Total Creatine Kinase C-Reactive Protein Total Protein Albumin TSH Urine WBC (Auto) Urine Creatinine Salicylates Acetaminophen Valproic Acid SARS-CoV-2 (PCR) 07/16/22 07/16/22 07/16/22 04:20 04:20 11:28 WBC RBC 3.16 L Hgb Hct MCV 99 H MCH 33 H Plt Count 101 L Seg Neutrophils % Seg Neutrophils # PT APTT D-Dimer ABG pH ABG pO2 ABG HCO3 ABG O2 Saturation ABG Base Excess ABG Hemoglobin Oxyhemoglobin Sodium Potassium Chloride Carbon Dioxide 36 H BUN 18 H Creatinine 0.4 L Glucose 139 H POC Glucose 158 H Lactic Acid Uric Acid Calcium Magnesium Ferritin Total Bilirubin AST Lactate Dehydrogenase Total Creatine Kinase C-Reactive Protein Total Protein Albumin TSH Urine WBC (Auto) Urine Creatinine Salicylates Acetaminophen Valproic Acid SARS-CoV-2 (PCR) 07/16/22 07/17/22 07/17/22 16:30 00:07 05:46 WBC RBC Hgb Hct MCV MCH Plt Count Seg Neutrophils % Seg Neutrophils # PT APTT D-Dimer ABG pH ABG pO2 ABG HCO3 ABG O2 Saturation ABG Base Excess ABG Hemoglobin Oxyhemoglobin Sodium Potassium Chloride Carbon Dioxide BUN Creatinine Glucose POC Glucose 201 H 139 H 123 H Lactic Acid Uric Acid Calcium Magnesium Ferritin Total Bilirubin AST Lactate Dehydrogenase Total Creatine Kinase C-Reactive Protein Total Protein Albumin TSH Urine WBC (Auto) Urine Creatinine Salicylates Acetaminophen Valproic Acid SARS-CoV-2 (PCR) 07/17/22 07/17/22 07/17/22 13:30 17:51 23:49 WBC RBC Hgb Hct MCV MCH Plt Count Seg Neutrophils % Seg Neutrophils # PT APTT D-Dimer ABG pH ABG pO2 ABG HCO3 ABG O2 Saturation ABG Base Excess ABG Hemoglobin Oxyhemoglobin Sodium Potassium Chloride Carbon Dioxide BUN Creatinine Glucose POC Glucose 185 H 219 H 133 H Lactic Acid Uric Acid Calcium Magnesium Ferritin Total Bilirubin AST Lactate Dehydrogenase Total Creatine Kinase C-Reactive Protein Total Protein Albumin TSH Urine WBC (Auto) Urine Creatinine Salicylates Acetaminophen Valproic Acid SARS-CoV-2 (PCR) 07/18/22 07/18/22 07/18/22 04:00 04:00 04:00 WBC 12.2 H RBC 3.34 L Hgb Hct MCV 100 H MCH 33 H Plt Count 113 L Seg Neutrophils % 77.3 H Seg Neutrophils # 9.4 H PT APTT D-Dimer ABG pH 7.508 H ABG pO2 115.9 H ABG HCO3 33.4 H ABG O2 Saturation ABG Base Excess 9.4 H ABG Hemoglobin 11.7 L Oxyhemoglobin Sodium Potassium Chloride Carbon Dioxide 35 H BUN Creatinine 0.4 L Glucose 130 H POC Glucose Lactic Acid Uric Acid Calcium Magnesium Ferritin Total Bilirubin AST Lactate Dehydrogenase Total Creatine Kinase C-Reactive Protein Total Protein Albumin TSH Urine WBC (Auto) Urine Creatinine Salicylates Acetaminophen Valproic Acid SARS-CoV-2 (PCR) 07/18/22 07/18/22 07/18/22 04:42 12:31 12:33 WBC RBC Hgb Hct MCV MCH Plt Count Seg Neutrophils % Seg Neutrophils # PT APTT D-Dimer ABG pH ABG pO2 ABG HCO3 ABG O2 Saturation ABG Base Excess ABG Hemoglobin Oxyhemoglobin Sodium Potassium Chloride Carbon Dioxide BUN Creatinine Glucose POC Glucose 134 H 172 H Lactic Acid Uric Acid Calcium Magnesium Ferritin Total Bilirubin AST Lactate Dehydrogenase Total Creatine Kinase C-Reactive Protein Total Protein Albumin TSH 9.750 H Urine WBC (Auto) Urine Creatinine Salicylates Acetaminophen Valproic Acid SARS-CoV-2 (PCR) 07/18/22 07/19/22 07/19/22 17:39 00:43 05:08 WBC RBC Hgb Hct MCV MCH Plt Count Seg Neutrophils % Seg Neutrophils # PT APTT D-Dimer ABG pH ABG pO2 ABG HCO3 ABG O2 Saturation ABG Base Excess ABG Hemoglobin Oxyhemoglobin Sodium Potassium Chloride Carbon Dioxide BUN Creatinine Glucose POC Glucose 164 H 132 H 143 H Lactic Acid Uric Acid Calcium Magnesium Ferritin Total Bilirubin AST Lactate Dehydrogenase Total Creatine Kinase C-Reactive Protein Total Protein Albumin TSH Urine WBC (Auto) Urine Creatinine Salicylates Acetaminophen Valproic Acid SARS-CoV-2 (PCR)
--- NOTE | 2022-07-19 16:05 | Progress Note ---
Assessment and Plan Assessment and plan: This is a 76-year-old female with CVA, pulmonary embolism, hypothyroidism and JUJU admitted with electrolyte imbalances, hypoxic respiratory failure and COVID- 19 pneumonia Neuro: Acute metabolic encephalopathy, h/o CVA with hemiplegia, dysphagia, aphasia, dementia -Neurology consulted, appreciate recommendations -Reorientation as needed -Maintain sleep-wake cycle -Resume home Lipitor -As needed analgesia -CT head shows no acute intracranial hemorrhage, multiple chronic appearing infarcts including left MCA distribution, left cerebral hemisphere and within the right basal ganglia -Depakene -EEG compatible with significant diffuse encephalopathy -MRI shows no acute findings, remote infarction of the left frontal lobe and left cerebellum, moderate sequela of chronic microvascular disease Cardiac: h/o HLD -Resume home Lipitor -Blood pressure monitoring per protocol Respiratory: Acute hypoxic respiratory failure, h/o JUJU, pulmonary embolism -CCM consulted, appreciate recommendations -Intubated on 07/07 with a 7.50 ETT at 24 the lips -A.m. vent settings: Assist-control rate 12, tidal volume 400, PEEP 6, FiO2 30% -See RT notes for titration -A.m. ABG and CXR noted -VAP bundle -SPO2 monitoring GI: NAD -24 hours +450 ml -PPI -NTR consulted for tube feedings -BR: Senokot-S : Rhabdomyolysis -Nephrology consulted, appreciate recommendations -Monitor intake and output -Free water flush -Renally dose medications -Avoid nephrotoxic medications -Trend BMP ID: COVID-19 pneumonia, lactic acidosis, Klebsiella pneumonia -Infectious disease consulted, appreciate recommendation - s/p Azithromycin 07/07-07/10, Rocephin -Decadron 10mg for 10 days () -s/p Remdesivir () -CRP 0.3, procalcitonin 0.19 -Contact/droplet precautions -f/u blood culture -Trend COVID-19 inflammatory markers -Monitor WBC and temperature curve -Prophylactic anticoagulation based on D-dimer per hospital protocol Endo: h/o hypothyroidism -Avoid hypoglycemia -SSI -Accu-Cheks q. 6 -Long-acting insulin, titrate as needed -Resume home Synthroid Heme: Thrombocytopenia (improving) -Trend CBC -Transfuse hemoglobin less than 7 -SCDs to BLE while in bed The high probability of a clinically significant, sudden or life threatening deterioration of the [multi] system(s) required my full and direct attention, intervention and personal management. The aggregate critical care time was [60] minutes. This time is in addition to time spent performing reported procedures but includes the following: [x] Data Review and interpretation [x] Patient assessment and monitoring of vital signs [x] Documentation [x] Medication orders and management Disposition Plan: icu Total Time Spent with Patient (Minutes): 60 History Interval history: This is a 76-year-old female with CVA resulting hemiplegia, dysphagia, aphasia, dementia, pulm embolism without acute cor pulmonale, hypothyroidism and JUJU who presented to the hospital on 07/07 from her custodial for altered mental status and diminished cognition and possible hypoxia via EMS. In the emergency department patient was intubated due to concern for airway protection. Recommend emergency department showed leukocytosis, hyponatremia with a sodium of 168, hypercalcemia, hypomagnesemia, elevated CK. Patient was admitted to the hospitalist service with acute hypoxic respiratory failure, COVID-19 PUI, hypernatremia, transaminitis, rhabdomyolysis with consults to CCM and nephrology: Hospital course to date: 07/08: Patient noted to be COVID-positive, started on remdesivir, Decadron, ceftriaxone azithromycin and infectious disease was consulted yesterday. This morning patient is on any sedation, PICC line to be placed. RT to attempt PSV. Started on free water flushes and tube feedings. Continues on D5 half-normal saline. 07/09: Patient remains encephalopathic, not on any sedation. Hypernatremia is imp roving, on FWF Q4hrs and D5w gtt per Nephro. If hypernatremia continue to improve and patient's mentation is unchanged, will get a repeat CT to r/o intracranial abnormalities. Patient remains afebrile, leukocytosis improved, and VSS. Continue current IV abx per ID. Patient failed PSV trial again today, continue PSV trial as tolerated 07/10: Remains stable on the vent, tolerating PSV trial this am. sodium continue to improve but no change in mental status. D/w CCM will get MRI brain to r/o any intracranial abnormalities, EEG also ordered to r/o seizures. Continue FWF and D5w gtt per Nephro. Continue IV steroids and current IV abx per ID. 07/11: Hypernatremia resolved, mentation is unchanged, remains on low vent setting. EEG noted, and MRI brain pending. Will consult Neurology for further recommendations. Continue daily PSV trial as tolerated. 07/12: Appears more awake this morning but still not following any commands. MRI brain with no acute findings and sodium normalized. Awaiting Neuro consult. Continue daily PSV trial as tolerated. Patient's daughter was updated via phone, all questions and concerns were addressed at this time. Medical records requested from [facility] and [facility]. 07/13: DELMI overnight. Mentation is unchanged, remains stable on the vent. Neurology consult pending. Continue vent adjustment per [facility] and daily PSV trial as tolerated. 07/14: Mentation is unchanged, remains afebrile and stable on the vent, VSS. Complete antibiotics course, still on IV steroids X3 more days. ID recommendations noted, remove corbin. Continue daily PSV trial as tolerated. 07/15: DELMI overnight, mentation unchanged, VSS. Patient failed PSV trial this am due to apnea. Continue daily PSV trial as tolerated. Possible trach and Peg per [facility]. 07/16: No acute events overnight, attempted PSV again today. [facility] to have family meeting on 07/17 to discuss trach/PEG 07/17: [facility] will have family meeting tomorrow. Failed PSV again. No acute events overnight. Thrombocytopenia continues to improve 07/18: [facility] held a family meeting today and surgery will be consulted for trach/PEG placement. Family stated that patient had not had her levothyroxine for several months due to decreased p.o. intake, will send thyroid panel. No acute events reported overnight. Hypotension today and 500 mL normal saline bolus given. Possible trach/peg within 2 days 07/19: No acute events reported overnight. Free T4 normal. Failed PSV Hospitalist Physical - Constitutional Vitals: Temp Pulse Resp BP Pulse Ox 99.9 F H 116 H 15 114/69 100 07/19/22 12:00 07/19/22 15:30 07/19/22 15:00 07/19/22 15:30 07/19/22 15:30 General appearance: Present: no acute distress, other (Intubated, unresponsive, not on any sedation) - EENT Eyes: Present: PERRL ENT: hearing intact - Neck Neck: Present: normal ROM - Respiratory Respiratory effort: normal Respiratory: bilateral: diminished - Cardiovascular Rhythm: regular Heart Sounds: Present: S1 & S2. Absent: systolic murmur, diastolic murmur - Extremities Extremities: no ischemia, pulses intact, pulses symmetrical, No edema, normal temperature, normal color Peripheral Pulses: within normal limits - Abdominal General gastrointestinal: soft, non-tender, non-distended, normal bowel sounds - Integumentary Integumentary: Present: warm - Neurologic Neurologic: other (more interactive today, does not follow commands) - Allied Health Allied health notes reviewed: nursing, RT, social work HEART Score - HEART Score Troponin: Troponin T 0.010 ng/mL (0.00-0.029) 07/07/22 04:17 Results - Labs CBC & Chem 7: 07/18/22 04:00 07/18/22 04:00 Labs: Laboratory Last Values WBC 12.2 K/mm3 (4.5-11.0) H 07/18/22 04:00 RBC 3.34 M/mm3 (3.65-5.03) L 07/18/22 04:00 Hgb 11.0 gm/dl (10.1-14.3) 07/18/22 04:00 Hct 33.3 % (30.3-42.9) 07/18/22 04:00 MCV 100 fl (79-97) H 07/18/22 04:00 MCH 33 pg (28-32) H 07/18/22 04:00 MCHC 33 % (30-34) 07/18/22 04:00 RDW 14.7 % (13.2-15.2) 07/18/22 04:00 Plt Count 113 K/mm3 (140-440) L 07/18/22 04:00 Lymph % (Auto) 19.3 % (13.4-35.0) 07/18/22 04:00 [place] % (Auto) 3.2 % (0.0-7.3) 07/18/22 04:00 Eos % (Auto) 0.1 % (0.0-4.3) 07/18/22 04:00 Baso % (Auto) 0.1 % (0.0-1.8) 07/18/22 04:00 Lymph # (Auto) 2.4 K/mm3 (1.2-5.4) 07/18/22 04:00 [place] # (Auto) 0.4 K/mm3 (0.0-0.8) 07/18/22 04:00 Eos # (Auto) 0.0 K/mm3 (0.0-0.4) 07/18/22 04:00 Baso # (Auto) 0.0 K/mm3 (0.0-0.1) 07/18/22 04:00 Seg Neutrophils % 77.3 % (40.0-70.0) H 07/18/22 04:00 Seg Neutrophils # 9.4 K/mm3 (1.8-7.7) H 07/18/22 04:00 PT 15.0 Sec. (12.2-14.9) H 07/07/22 03:38 INR 1.06 (0.87-1.13) 07/07/22 03:38 APTT 23.0 Sec. (24.2-36.6) L 07/07/22 03:38 D-Dimer 925.80 ng/mlDDU (0-234) H 07/12/22 04:00 ABG pH 7.508 pH Units (7.350-7.450) H 07/18/22 04:00 ABG pCO2 42.9 mm Hg 07/18/22 04:00 ABG pO2 115.9 mm Hg (80.0-90.0) H 07/18/22 04:00 ABG HCO3 33.4 mmol/L (20.0-26.0) H 07/18/22 04:00 ABG O2 Saturation 98.3 % (95.0-99.0) 07/18/22 04:00 ABG O2 Content 16.1 (0.0-44) 07/18/22 04:00 ABG Base Excess 9.4 mmol/L (-2.0-3.0) H 07/18/22 04:00 ABG Hemoglobin 11.7 gm/dl (12.0-16.0) L 07/18/22 04:00 ABG Carboxyhemoglobin 1.2 % (0.0-5.0) 07/18/22 04:00 ABG Methemoglobin 0.6 % (0.0-1.5) 07/18/22 04:00 Oxyhemoglobin 96.6 % (95.0-99.0) 07/18/22 04:00 FiO2 30 % 07/18/22 04:00 Sodium 138 mmol/L (137-145) 07/18/22 04:00 Potassium 4.2 mmol/L (3.6-5.0) 07/18/22 04:00 Chloride 98.5 mmol/L (98-107) 07/18/22 04:00 Carbon Dioxide 35 mmol/L (22-30) H 07/18/22 04:00 Anion Gap 9 mmol/L 07/18/22 04:00 BUN 16 mg/dL (7-17) 07/18/22 04:00 Creatinine 0.4 mg/dL (0.6-1.2) L 07/18/22 04:00 Estimated GFR > 60 ml/min 07/18/22 04:00 BUN/Creatinine Ratio 40 % 07/18/22 04:00 Glucose 130 mg/dL (65-100) H 07/18/22 04:00 POC Glucose 159 mg/dL (70-105) H 07/19/22 12:30 Lactic Acid 2.10 mmol/L (0.7-2.0) H* 07/10/22 08:24 Uric Acid 13.5 mg/dL (3.5-7.6) H 07/07/22 04:17 Calcium 8.7 mg/dL (8.4-10.2) 07/18/22 04:00 Phosphorus 2.90 mg/dL (2.5-4.5) 07/16/22 04:20 Magnesium 1.80 mg/dL (1.7-2.3) 07/16/22 04:20 Ferritin 519.5 ng/mL (10.0-200.0) H 07/12/22 04:00 Total Bilirubin 0.30 mg/dL (0.1-1.2) 07/10/22 04:21 AST 89 units/L (5-40) H 07/10/22 04:21 ALT 53 units/L (7-56) 07/10/22 04:21 Alkaline Phosphatase 83 units/L (35-129) 07/10/22 04:21 Ammonia 32.0 umol/L (25-60) 07/07/22 04:17 Lactate Dehydrogenase 444 units/L (91-180) H 07/12/22 04:00 Total Creatine Kinase 1745 units/L (30-135) H 07/11/22 05:40 Troponin T 0.010 ng/mL (0.00-0.029) 07/07/22 04:17 C-Reactive Protein 0.30 mg/dL (0.00-1.30) 07/12/22 04:00 Total Protein 4.9 g/dL (6.3-8.2) L 07/10/22 04:21 Albumin 2.5 g/dL (3.9-5) L 07/10/22 04:21 Albumin/Globulin Ratio 1.0 % 07/10/22 04:21 Procalcitonin 0.19 ng/mL (<0.15) 07/08/22 14:54 TSH 9.750 mlU/mL (0.270-4.200) H 07/18/22 12:31 Free T4 0.78 ng/dL (0.76-1.46) 07/18/22 12:31 Thyroxine (T4) 6.2 ug/dL (4.0-12.0) 07/18/22 12:31 Total Cortisol 47.9 mcg/dL () 07/07/22 07:43 Urine Color Yellow (Yellow) 07/07/22 03:17 Urine Turbidity Slightly cloudy (Clear) 07/07/22 03:17 Specific [place] (Man) 1.015 (1.003-1.030) 07/07/22 03:17 Ur Protein (Man) 1+ mg/dL (Negative) 07/07/22 03:17 Ur Ketones (Man) Negative (Negative) 07/07/22 03:17 Ur Nitrite (Man) Negative (Negative) 07/07/22 03:17 Urine Bilirubin (Man) Negative (Negative) 07/07/22 03:17 Leukocyte Esterase (Man) Negative (Negative) 07/07/22 03:17 Urine WBC (Auto) 7.0 /HPF (0.0-6.0) H 07/07/22 03:17 Urine RBC (Auto) 1.0 /HPF (0.0-6.0) 07/07/22 03:17 U Epithel Cells (Auto) 4.0 /HPF (0-13.0) 07/07/22 03:17 Urine Bacteria (Auto) 3+ /HPF (Negative) 07/07/22 03:17 Urine RBC (Manual) 3+ (Negative) 07/07/22 03:17 Urine Mucus 3+ /HPF 07/07/22 03:17 Urine Osmolality 744 Mosm/kg 07/07/22 16:45 Urine Creatinine 92.9 mg/dL (0.1-20.0) H 07/07/22 16:45 Urine Sodium 109 mmol/L 07/07/22 16:45 Salicylates < 0.3 mg/dL (2.8-20.0) L 07/07/22 03:38 Urine Opiates Screen Presumptive negative 07/07/22 03:17 Urine Methadone Screen Presumptive negative 07/07/22 03:17 Acetaminophen 5.0 ug/mL (10.0-30.0) L 07/07/22 03:38 Ur Barbiturates Screen Presumptive negative 07/07/22 03:17 Valproic Acid 7.0 ug/mL (50-100) L 07/07/22 03:38 Ur Phencyclidine Scrn Presumptive negative 07/07/22 03:17 Ur Amphetamines Screen Presumptive negative 07/07/22 03:17 U Benzodiazepines Scrn Presumptive negative 07/07/22 03:17 Urine Cocaine Screen Presumptive negative 07/07/22 03:17 U Marijuana (THC) Screen Presumptive negative 07/07/22 03:17 Drugs of Abuse Note Disclamer 07/07/22 03:17 Plasma/Serum Alcohol < 0.01 % (0-0.07) 07/07/22 03:38 SARS-CoV-2 (PCR) Positive (Negative) A 07/07/22 15:00 [place]/IV: Voiding Method External Female Catheter Active Medications - Current Medications Current Medications: Generic Name Dose Route Start Last Admin Trade Name Freq PRN Reason Stop Dose Admin Acetaminophen 650 mg 07/13/22 12:00 Acetaminophen 325 Mg/10.15 Ml Oral Liqd Unit Dose FEEDTUBE Q6H PRN Pain MILD(1-3)/Fever >100.5/LEE Atorvastatin Calcium 80 mg 07/10/22 22:00 07/18/22 21:27 Atorvastatin 40 Mg Tab FEEDTUBE 80 mg QHS ERROL Administration Cholecalciferol 1,000 unit 07/10/22 10:00 07/19/22 09:23 Cholecalciferol (Vit D3) 1000 Unit (25 Mcg) Tab FEEDTUBE 1,000 unit QDAY ERROL Administration Dextrose 50 ml 07/09/22 11:42 Dextrose 50% In Water (25gm) 50 Ml Syringe IV Q30MIN PRN Hypoglycemia Protocol Famotidine 20 mg 07/09/22 22:00 07/19/22 09:23 Famotidine 20 Mg Tab FEEDTUBE 20 mg BID ERROL Administration Heparin Sodium (Porcine) 5,000 unit 07/08/22 06:00 07/19/22 05:34 Heparin 5,000 Unit/1 Ml Vial SUB-Q 5,000 unit Q12H ERROL Administration Hydrophilic Ointment 1 applic 07/07/22 02:48 Lip Therapy Vaseline TP Q2HR PRN Dry Lips Insulin Human Lispro 0 unit 07/09/22 12:00 07/19/22 12:39 Insulin Lispro 100 Unit/Ml SUB-Q 1 unit Q6HR ERROL Administration Protocol Levothyroxine Sodium 75 mcg 07/11/22 06:00 07/19/22 05:34 Levothyroxine 75 Mcg Tab FEEDTUBE 75 mcg QAM@0600 ERROL Administration Multi-Ingred Cream/Lotion/Oil/Oint 1 applic 07/07/22 02:48 Mineral Oil/Petrolatum, White Ophth Oint 3.5 Gm OU Q4HR PRN Dry Eye(s) Senna/Docusate Sodium 1 tab 07/07/22 10:00 07/19/22 09:09 Sennosides/Docusate Sodium 8.6/50 Mg Tab FEEDTUBE Not Given BID ERROL Sodium Chloride 10 ml 07/07/22 13:00 07/19/22 09:23 Sodium Chloride 0.9% 10 Ml Flush Syringe IV 10 ml BID ERROL Administration Sodium Chloride 10 ml 07/07/22 12:09 Sodium Chloride 0.9% 10 Ml Flush Syringe IV PRN PRN LINE FLUSH Valproic Acid 250 mg 07/10/22 22:00 07/19/22 09:23 Valproic Acid 250 Mg/5 Ml Oral Liqd FEEDTUBE 250 mg Q12H ERROL Administration Nutrition/Malnutrition Assess - Dietary Evaluation Nutrition/Malnutrition Findings: Nutrition Notes Start: 07/07/22 13:24 Freq: Status: Active Protocol: Document 07/17/22 11:13 DAREN (Rec: 07/17/22 11:42 DAREN [id number]) Nutrition Notes Initial or Follow up Reassessment Current Diagnosis Respiratory Failure,Stroke Other Pertinent Diagnosis COVID-19, Metabolic Encephalopathy, Pulmonary Embolism, Dementia. Current Diet TF-Vital AF 1.2 [place] @ 50 ml/hr (from D 07/12). Labs/Tests 07/17: CO2 36, BUN 18, Crea 0. 4, Glu 139. Pertinent Medications 07/17: Vit D3, Levothyroxine, others nutritionally unremarkable. Height 5 ft 6 in Weight 95.254 kg [place] Body Weight (kg) 59.09 BMI 33.9 Weight change and time frame No body weight change reported in 11 days. Weight Status Obese Subjective/Other Information RD consult for routine F/U on TF tolerance/continuation assessment. TF continues as prescribed, and well tolerated, according to RN notes. Pt continues on Mechanical Ventilation, O2 saturation @ 100%, according to Physical Assessment History notes. Pt presents caries and has missing teeth, according to Physical Assessment History notes. Pt presents bilateral-UE Non- Pitting Edema 2+, according to Physical Assessment History notes. Pt remains incontinent, according to Physical Assessment History notes. Pt presents dysphagia, hemiplegia, and aphasia, according to Physical Assessment History notes. Tracheostomy and PEG-tube placement are being discussed with family, according to Progress notes. Pt is resident of a SNF according to Progress notes. Percent of energy/protein needs met: Prescribed TF-Vital AF 1.2 [place] @ 50 ml/hr provides for energy/protein needs (1,440 Kcal/90 g) during LOS, 101% Kcal, 91% AA. Burn Absent Trauma Absent GI Symptoms Other Difficulty In Swallowing,Chewing Food Allergy No Skin Integrity/Comment Assessment WNL. Current % PO Other Minimum of two criteria Yes Energy Intake (non-severe) <75% Estimated Energy Requirement >7 days Interpretation of Weight Loss (non- 5% in 1 month severe) Fluid Accumulation Mild (non-severe) Reduced Meter Repairer Helper Strength N/A (non-severe) Protein-Calorie Malnutrition Non-Severe #2 Nutrition Diagnosis Malnutrition Diagnosis Progress(for reassessment Continues documentation) #1 Nutrition Diagnosis Inadequate oral intake Diagnosis Progress(for reassessment Continues documentation) Is patient on ventilator? Yes Is Patient Ambulatory and/or Out of Bed No REE-([place]-St. Jeor-confined to bed) 1763.208 Kcal/Kg value to use for calculation 15 Approximate Energy Requirements Using 1429 kcal/Kg Calculation Used for Recommendations Kcal/kg Additional Notes Protein: 1.3 g/Kg AdjBW; 99 g/ day. Fluids: 1 ml/Kcal, or as per MD. Nutrition Intervention Nutrition Support: Continue TF-Vital AF 1.2 [place] @ 50 ml/hr. Flush: 75 ml water Q 4 hr, or as per MD. Kcal 1,440 Protein (gm) 90 Carbohydrates (gm) 133 Fat (gm) 65 Fluid (mL) 973 Fiber (gm) 6 % RDI: 101% Kcal; 91% AA. Goal #1 Provide at least 75% of energy /protein needs through Enteral Feeding during LOS. Goal #2 Adjust the dietary intervention to better serve Pt's needs and clinical conditions during LOS. Follow-Up By: 07/24/22 Additional Comments Continue monitoring TF tolerance, ventilation status, PEG-tube placement, and BM.
[2022-07-19] MEDS: ACETAMINOPHEN 325 MG/10.15 ML ORAL LIQD UNIT DOSE FEEDTUBE PRN (18:30)
[2022-07-20] MEDS: INSULIN LISPRO 100 UNIT/ML SUB-Q SCH ×4 (00:02→17:48)
[2022-07-20 06:09] LABS: ABG Base Excess 8.8 mmol/L (-2.0-3.0); ABG HCO3 32.8 mmol/L (20.0-26.0); ABG Methemoglobin 0.6 % (0.0-1.5); ABG Oxygen Saturation 97.8 % (95.0-99.0); ABG PCO2 42.7 mm Hg; ABG PH 7.503 pH Units (7.350-7.450); ABG PO2 99.1 mm Hg (80.0-90.0)
[2022-07-20] MEDS: LEVOTHYROXINE 75 MCG TAB FEEDTUBE SCH (06:33)
[2022-07-20] MEDS: HEPARIN 5,000 UNIT/1 ML VIAL SUB-Q SCH ×2 (06:33→17:48)
[2022-07-20] MEDS: VALPROIC ACID 250 MG/5 ML ORAL LIQD FEEDTUBE SCH ×2 (09:22→22:25)
[2022-07-20] MEDS: FAMOTIDINE 20 MG TAB FEEDTUBE SCH ×2 (09:22→22:26)
[2022-07-20] MEDS: CHOLECALCIFEROL (VIT D3) 1000 UNIT (25 mcg) TAB FEEDTUBE SCH (09:23)
[2022-07-20] MEDS: SENNOSIDES/DOCUSATE SODIUM 8.6/50 MG TAB FEEDTUBE SCH ×2 (09:42→22:26)
--- NOTE | 2022-07-20 12:05 | Progress Note ---
Assessment and Plan 76 y/o female with acute respiratory failure secondary to altered mental status, most likely from electrolyte abnormalities seen on chemistry, found to be COVID positive. 07/20/22: Trach/Peg Friday. Supportive care. 07/19/22: Appreciate Surgery. on Schedule for next week. Free T4 was normal. No current indication for stress dose steroids. Continue supportive care. 07/18/22: Family meeting: Discussed current mental state. Discussed negative work up so far to explain why mental state hasnt improved. Per family here, patient was better than what she is not but I had difficult time placing a time frame as to when that was, maybe May. It does appear that she has had a steady decline mentally and even stopped eating. There were talks prior to her admission here about Peg tube placement. Discussed the idea of trach and peg placement. Also explained to family that trach does not fix any underlying reason as to why the patient's mental state is the way it is. The family wasn't aware that she was brought in for altered mental status, they were told she had bradycardia. Nonetheless, the family as a whole wish to pursue trach and peg placement. Consulted Surgery and hopeful they will see soon. Continue supportive measures and continue daily PSV trials. TSH on admit was 13, will repeat but if T4 is normal, nothing to do. She also is not behaving like myxedema coma. Guarded prognosis. 07/17/22: steroids end today. Continue daily PSV trials. Will speak with family about next steps as today is day 10 of intubation and it does not appear that conventional extubation is in the near future. 07/16/22: Continue daily PSV trials. Will speak with family tomorrow as patient is not improving enough for conventional extubation, especially with frequent apnic events. Most likely patient will need trach and peg. 07/15/22: mental status is still unchanged. Eyes open but not tracking or following commands. Also going apnic on PSV trials. Most likely will need trach and peg given mental status has not improved. 07/12/22: Negative MRI for acute infarct. Na is normal. Continue to monitor. Daily PSV trials. Has been intubated now for 5 days. 07/11/22: for MRI today. Appreciate renal help, agree with signing off. Attempt daily PSV. Guarded prognosis. 07/10: follow up MRI. Get official EEG read but no status. Continue daily PSV trials. Guarded prognosis 07/09/22: Continue supportive measures. Continue to fix Na, if no improvement in mental state with normal sodium then will pursue MRI. Picc placed today. 07/08/22: No further sedation. 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 Cons ider neurology consult and may need to obtain MRI. Attempt PSV trials today. 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 Feed patient and monitor lytes. 1. Discontinue sedation 2. Wean FiO2 for sats >88% and PaO2 greater than 60 3. Agree with fluid resuscitation, patient needs free water 4. Will follow up with family to find out exactly what patient mental status was a facility CCT 31 minutes. Subjective Date of service: 07/20/22 Principal diagnosis: Hypernatremia Interval history: No acute events. Off isolation now. Objective Vital Signs - 12hr 07/20/22 07/20/22 07/20/22 00:03 00:31 01:00 Pulse Rate 108 H 117 H 119 H Pulse Rate [ From Monitor] Respiratory 10 L 15 15 Rate Blood Pressure 95/61 95/61 87/57 O2 Sat by Pulse 91 98 100 Oximetry 07/20/22 07/20/22 07/20/22 01:31 02:00 02:31 Pulse Rate 111 H 115 H 118 H Pulse Rate [ From Monitor] Respiratory 9 L 15 12 Rate Blood Pressure 87/57 128/67 128/67 O2 Sat by Pulse 100 96 98 Oximetry 07/20/22 07/20/22 07/20/22 02:41 03:01 03:31 Pulse Rate 111 H 116 H 110 H Pulse Rate [ From Monitor] Respiratory 12 10 L Rate Blood Pressure 113/65 117/64 117/64 O2 Sat by Pulse 100 100 96 Oximetry 07/20/22 07/20/22 07/20/22 04:00 04:31 05:01 Pulse Rate 104 H 103 H 120 H Pulse Rate [ 114 H From Monitor] Respiratory 10 L 10 L 14 Rate Blood Pressure 87/48 87/48 87/48 O2 Sat by Pulse 100 84 100 Oximetry 07/20/22 07/20/22 07/20/22 05:30 06:00 06:30 Pulse Rate 113 H 116 H 98 H Pulse Rate [ From Monitor] Respiratory 12 11 L 10 L Rate Blood Pressure 87/48 101/69 101/69 O2 Sat by Pulse 98 98 100 Oximetry 07/20/22 07/20/22 07/20/22 07:00 07:30 07:50 Pulse Rate 91 H 90 107 H Pulse Rate [ From Monitor] Respiratory 10 L 11 L Rate Blood Pressure 90/56 90/56 103/58 O2 Sat by Pulse 100 99 100 Oximetry 07/20/22 07/20/22 07/20/22 08:00 09:45 11:32 Pulse Rate 91 H 113 H 111 H Pulse Rate [ 89 From Monitor] Respiratory 10 L 10 L 13 Rate Blood Pressure 103/58 108/45 107/60 O2 Sat by Pulse 100 98 98 Oximetry Constitutional: comatose ENT: other (orally intubated) Neck: supple Effort: normal Ascultation: Bilateral: clear Percussion: Bilateral: not dull Cardiovascular: regular rate and rhythm Gastrointestinal: normoactive bowel sounds, soft Extremities: no cyanosis, no edema Neurologic: unable to assess CBC and BMP: 07/18/22 04:00 07/18/22 04:00 ABG, PT/INR, D-dimer: ABG ABG pH 7.503 pH Units (7.350-7.450) H 07/20/22 05:30 ABG pCO2 42.7 mm Hg 07/20/22 05:30 ABG pO2 99.1 mm Hg (80.0-90.0) H 07/20/22 05:30 ABG O2 Saturation 97.8 % (95.0-99.0) 07/20/22 05:30 PT/INR, D-dimer PT 15.0 Sec. (12.2-14.9) H 07/07/22 03:38 INR 1.06 (0.87-1.13) 07/07/22 03:38 D-Dimer 925.80 ng/mlDDU (0-234) H 07/12/22 04:00 Abnormal lab findings: Abnormal Labs 07/07/22 07/07/22 07/07/22 03:17 03:38 03:38 WBC RBC 5.43 H Hgb 18.2 H Hct 54.9 H MCV 101 H MCH 34 H Plt Count 104 L Seg Neutrophils % Seg Neutrophils # PT 15.0 H APTT 23.0 L D-Dimer ABG pH ABG pO2 ABG HCO3 ABG O2 Saturation ABG Base Excess ABG Hemoglobin Oxyhemoglobin Sodium Potassium Chloride Carbon Dioxide BUN Creatinine Glucose POC Glucose Lactic Acid Uric Acid Calcium Magnesium Ferritin Total Bilirubin AST Lactate Dehydrogenase Total Creatine Kinase C-Reactive Protein Total Protein Albumin TSH Urine WBC (Auto) 7.0 H Urine Creatinine Salicylates Acetaminophen Valproic Acid SARS-CoV-2 (PCR) 07/07/22 07/07/22 07/07/22 03:38 03:38 03:38 WBC RBC Hgb Hct MCV MCH Plt Count Seg Neutrophils % Seg Neutrophils # PT APTT D-Dimer ABG pH ABG pO2 ABG HCO3 ABG O2 Saturation ABG Base Excess ABG Hemoglobin Oxyhemoglobin Sodium Potassium Chloride Carbon Dioxide BUN Creatinine Glucose POC Glucose Lactic Acid Uric Acid Calcium Magnesium 3.30 H Ferritin Total Bilirubin AST Lactate Dehydrogenase Total Creatine Kinase 1826 H C-Reactive Protein Total Protein Albumin TSH Urine WBC (Auto) Urine Creatinine Salicylates < 0.3 L Acetaminophen 5.0 L Valproic Acid 7.0 L SARS-CoV-2 (PCR) 07/07/22 07/07/22 07/07/22 04:17 04:17 04:17 WBC RBC Hgb Hct MCV MCH Plt Count Seg Neutrophils % Seg Neutrophils # PT APTT D-Dimer ABG pH ABG pO2 ABG HCO3 ABG O2 Saturation ABG Base Excess ABG Hemoglobin Oxyhemoglobin Sodium 168 H* Potassium 3.2 L Chloride 122.2 H Carbon Dioxide BUN 52 H Creatinine Glucose 158 H POC Glucose Lactic Acid 3.50 H* Uric Acid Calcium 10.9 H Magnesium Ferritin Total Bilirubin 1.40 H AST 47 H Lactate Dehydrogenase Total Creatine Kinase C-Reactive Protein Total Protein Albumin TSH 12.790 H Urine WBC (Auto) Urine Creatinine Salicylates Acetaminophen Valproic Acid SARS-CoV-2 (PCR) 07/07/22 07/07/22 07/07/22 04:17 07:43 09:35 WBC RBC Hgb Hct MCV MCH Plt Count Seg Neutrophils % Seg Neutrophils # PT APTT D-Dimer ABG pH ABG pO2 377.3 H ABG HCO3 ABG O2 Saturation 99.6 H ABG Base Excess -2.5 L ABG Hemoglobin Oxyhemoglobin Sodium Potassium Chloride Carbon Dioxide BUN Creatinine Glucose POC Glucose Lactic Acid 6.30 H* Uric Acid 13.5 H Calcium Magnesium Ferritin Total Bilirubin AST Lactate Dehydrogenase Total Creatine Kinase C-Reactive Protein Total Protein Albumin TSH Urine WBC (Auto) Urine Creatinine Salicylates Acetaminophen Valproic Acid SARS-CoV-2 (PCR) 07/07/22 07/07/22 07/07/22 15:00 16:00 16:00 WBC RBC Hgb Hct MCV MCH Plt Count Seg Neutrophils % Seg Neutrophils # PT APTT D-Dimer ABG pH ABG pO2 ABG HCO3 ABG O2 Saturation ABG Base Excess ABG Hemoglobin Oxyhemoglobin Sodium 166 H* Potassium Chloride 124.8 H Carbon Dioxide 20 L BUN 41 H Creatinine Glucose 157 H POC Glucose Lactic Acid 7.00 H* Uric Acid Calcium Magnesium Ferritin Total Bilirubin AST 81 H Lactate Dehydrogenase Total Creatine Kinase C-Reactive Protein Total Protein Albumin TSH Urine WBC (Auto) Urine Creatinine Salicylates Acetaminophen Valproic Acid SARS-CoV-2 (PCR) Positive A 07/07/22 07/07/22 07/07/22 16:45 23:42 23:42 WBC RBC Hgb Hct MCV MCH Plt Count Seg Neutrophils % Seg Neutrophils # PT APTT D-Dimer ABG pH ABG pO2 ABG HCO3 ABG O2 Saturation ABG Base Excess ABG Hemoglobin Oxyhemoglobin Sodium 165 H* Potassium 3.0 L Chloride 122.8 H Carbon Dioxide BUN 38 H Creatinine Glucose 232 H POC Glucose Lactic Acid 5.60 H* Uric Acid Calcium Magnesium Ferritin Total Bilirubin AST Lactate Dehydrogenase Total Creatine Kinase C-Reactive Protein Total Protein Albumin TSH Urine WBC (Auto) Urine Creatinine 92.9 H Salicylates Acetaminophen Valproic Acid SARS-CoV-2 (PCR) 07/07/22 07/07/22 07/08/22 Unknown Unknown 05:30 WBC RBC Hgb Hct MCV MCH Plt Count Seg Neutrophils % Seg Neutrophils # PT APTT D-Dimer ABG pH 7.553 H 7.473 H ABG pO2 61.7 L 121.7 H ABG HCO3 ABG O2 Saturation 94.7 L ABG Base Excess 4.3 H ABG Hemoglobin 18.0 H Oxyhemoglobin 93.1 L Sodium 163 H* Potassium 6.3 H* D Chloride 123.7 H Carbon Dioxide BUN 42 H Creatinine Glucose 169 H POC Glucose Lactic Acid Uric Acid Calcium Magnesium Ferritin Total Bilirubin AST Lactate Dehydrogenase Total Creatine Kinase C-Reactive Protein Total Protein Albumin TSH Urine WBC (Auto) Urine Creatinine Salicylates Acetaminophen Valproic Acid SARS-CoV-2 (PCR) 07/08/22 07/08/22 07/08/22 05:36 11:21 14:54 WBC 11.1 H RBC Hgb Hct MCV 101 H MCH 33 H Plt Count 69 L Seg Neutrophils % 82.0 H Seg Neutrophils # 9.1 H PT APTT D-Dimer ABG pH ABG pO2 ABG HCO3 ABG O2 Saturation ABG Base Excess ABG Hemoglobin Oxyhemoglobin Sodium Potassium Chloride Carbon Dioxide BUN Creatinine Glucose POC Glucose 174 H 148 H Lactic Acid Uric Acid Calcium Magnesium Ferritin Total Bilirubin AST Lactate Dehydrogenase Total Creatine Kinase C-Reactive Protein Total Protein Albumin TSH Urine WBC (Auto) Urine Creatinine Salicylates Acetaminophen Valproic Acid SARS-CoV-2 (PCR) 07/08/22 07/08/22 07/08/22 14:54 14:54 14:54 WBC RBC Hgb Hct MCV MCH Plt Count Seg Neutrophils % Seg Neutrophils # PT APTT D-Dimer ABG pH ABG pO2 ABG HCO3 ABG O2 Saturation ABG Base Excess ABG Hemoglobin Oxyhemoglobin Sodium 163 H* Potassium 2.9 L* Chloride 123.7 H Carbon Dioxide BUN 30 H Creatinine Glucose 161 H POC Glucose Lactic Acid 6.10 H* Uric Acid Calcium Magnesium Ferritin Total Bilirubin AST 69 H Lactate Dehydrogenase Total Creatine Kinase 2335 H C-Reactive Protein Total Protein 5.6 L D Albumin 3.1 L TSH Urine WBC (Auto) Urine Creatinine Salicylates Acetaminophen Valproic Acid SARS-CoV-2 (PCR) 07/08/22 07/08/22 07/08/22 14:54 14:54 14:54 WBC RBC Hgb Hct MCV MCH Plt Count Seg Neutrophils % Seg Neutrophils # PT APTT D-Dimer 499.72 H ABG pH ABG pO2 ABG HCO3 ABG O2 Saturation ABG Base Excess ABG Hemoglobin Oxyhemoglobin Sodium Potassium Chloride Carbon Dioxide BUN Creatinine Glucose POC Glucose Lactic Acid Uric Acid Calcium Magnesium Ferritin 722.1 H Total Bilirubin AST Lactate Dehydrogenase 455 H Total Creatine Kinase C-Reactive Protein 1.60 H Total Protein Albumin TSH Urine WBC (Auto) Urine Creatinine Salicylates Acetaminophen Valproic Acid SARS-CoV-2 (PCR) 07/08/22 07/08/22 07/09/22 19:13 19:53 00:09 WBC RBC Hgb Hct MCV MCH Plt Count Seg Neutrophils % Seg Neutrophils # PT APTT D-Dimer ABG pH ABG pO2 ABG HCO3 ABG O2 Saturation ABG Base Excess ABG Hemoglobin Oxyhemoglobin Sodium 160 H Potassium 3.5 L D Chloride 122.0 H Carbon Dioxide 20 L BUN 28 H Creatinine Glucose 151 H POC Glucose 138 H Lactic Acid 5.70 H* Uric Acid Calcium Magnesium Ferritin Total Bilirubin AST Lactate Dehydrogenase Total Creatine Kinase C-Reactive Protein Total Protein Albumin TSH Urine WBC (Auto) Urine Creatinine Salicylates Acetaminophen Valproic Acid SARS-CoV-2 (PCR) 07/09/22 07/09/22 07/09/22 00:45 03:21 03:21 WBC RBC Hgb Hct MCV MCH Plt Count Seg Neutrophils % Seg Neutrophils # PT APTT D-Dimer ABG pH ABG pO2 ABG HCO3 ABG O2 Saturation ABG Base Excess ABG Hemoglobin Oxyhemoglobin Sodium 158 H 157 H Potassium Chloride 124.2 H 125.0 H Carbon Dioxide 20 L 20 L BUN 25 H 24 H Creatinine Glucose 147 H 169 H POC Glucose Lactic Acid 4.70 H* Uric Acid Calcium Magnesium Ferritin Total Bilirubin AST 81 H Lactate Dehydrogenase Total Creatine Kinase C-Reactive Protein Total Protein 5.7 L Albumin 2.8 L TSH Urine WBC (Auto) Urine Creatinine Salicylates Acetaminophen Valproic Acid SARS-CoV-2 (PCR) 07/09/22 07/09/22 07/09/22 04:40 05:35 08:14 WBC RBC Hgb Hct MCV 102 H MCH 33 H Plt Count 74 L Seg Neutrophils % Seg Neutrophils # PT APTT D-Dimer ABG pH ABG pO2 172.1 H ABG HCO3 ABG O2 Saturation 99.1 H ABG Base Excess -2.8 L ABG Hemoglobin Oxyhemoglobin Sodium Potassium Chloride Carbon Dioxide BUN Creatinine Glucose POC Glucose 108 H Lactic Acid Uric Acid Calcium Magnesium Ferritin Total Bilirubin AST Lactate Dehydrogenase Total Creatine Kinase C-Reactive Protein Total Protein Albumin TSH Urine WBC (Auto) Urine Creatinine Salicylates Acetaminophen Valproic Acid SARS-CoV-2 (PCR) 07/09/22 07/09/22 07/09/22 11:16 11:27 16:20 WBC RBC Hgb Hct MCV MCH Plt Count Seg Neutrophils % Seg Neutrophils # PT APTT D-Dimer ABG pH ABG pO2 ABG HCO3 ABG O2 Saturation ABG Base Excess ABG Hemoglobin Oxyhemoglobin Sodium 155 H Potassium Chloride 121.3 H Carbon Dioxide BUN 21 H Creatinine Glucose 170 H POC Glucose 173 H 190 H Lactic Acid Uric Acid Calcium Magnesium Ferritin Total Bilirubin AST Lactate Dehydrogenase Total Creatine Kinase C-Reactive Protein Total Protein Albumin TSH Urine WBC (Auto) Urine Creatinine Salicylates Acetaminophen Valproic Acid SARS-CoV-2 (PCR) 07/09/22 07/10/22 07/10/22 17:16 00:04 04:21 WBC RBC Hgb Hct MCV MCH Plt Count Seg Neutrophils % Seg Neutrophils # PT APTT D-Dimer ABG pH ABG pO2 ABG HCO3 ABG O2 Saturation ABG Base Excess ABG Hemoglobin Oxyhemoglobin Sodium 149 H 150 H Potassium Chloride 115.6 H 115.0 H Carbon Dioxide BUN 18 H Creatinine 0.5 L Glucose 207 H 178 H POC Glucose 180 H Lactic Acid Uric Acid Calcium 7.9 L Magnesium Ferritin Total Bilirubin AST 89 H Lactate Dehydrogenase 431 H Total Creatine Kinase C-Reactive Protein Total Protein 4.9 L Albumin 2.5 L TSH Urine WBC (Auto) Urine Creatinine Salicylates Acetaminophen Valproic Acid SARS-CoV-2 (PCR) 07/10/22 07/10/22 07/10/22 04:21 04:21 04:21 WBC 11.8 H RBC 3.52 L Hgb Hct MCV 99 H MCH 33 H Plt Count 67 L Seg Neutrophils % Seg Neutrophils # PT APTT D-Dimer 585.71 H ABG pH ABG pO2 ABG HCO3 ABG O2 Saturation ABG Base Excess ABG Hemoglobin Oxyhemoglobin Sodium Potassium Chloride Carbon Dioxide BUN Creatinine Glucose POC Glucose Lactic Acid Uric Acid Calcium Magnesium Ferritin 631.3 H Total Bilirubin AST Lactate Dehydrogenase Total Creatine Kinase C-Reactive Protein Total Protein Albumin TSH Urine WBC (Auto) Urine Creatinine Salicylates Acetaminophen Valproic Acid SARS-CoV-2 (PCR) 07/10/22 07/10/22 07/10/22 04:21 04:55 05:26 WBC RBC Hgb Hct MCV MCH Plt Count Seg Neutrophils % Seg Neutrophils # PT APTT D-Dimer ABG pH ABG pO2 76.8 L ABG HCO3 ABG O2 Saturation ABG Base Excess ABG Hemoglobin 10.4 L Oxyhemoglobin 94.5 L Sodium Potassium Chloride Carbon Dioxide BUN Creatinine Glucose POC Glucose 147 H Lactic Acid 2.50 H* Uric Acid Calcium Magnesium Ferritin Total Bilirubin AST Lactate Dehydrogenase Total Creatine Kinase C-Reactive Protein Total Protein Albumin TSH Urine WBC (Auto) Urine Creatinine Salicylates Acetaminophen Valproic Acid SARS-CoV-2 (PCR) 07/10/22 07/10/22 07/10/22 08:24 11:31 12:53 WBC RBC Hgb Hct MCV MCH Plt Count Seg Neutrophils % Seg Neutrophils # PT APTT D-Dimer ABG pH ABG pO2 ABG HCO3 ABG O2 Saturation ABG Base Excess ABG Hemoglobin Oxyhemoglobin Sodium Potassium Chloride 110.9 H Carbon Dioxide BUN Creatinine 0.5 L Glucose 200 H POC Glucose 166 H Lactic Acid 2.10 H* Uric Acid Calcium 8.3 L Magnesium Ferritin Total Bilirubin AST Lactate Dehydrogenase Total Creatine Kinase C-Reactive Protein Total Protein Albumin TSH Urine WBC (Auto) Urine Creatinine Salicylates Acetaminophen Valproic Acid SARS-CoV-2 (PCR) 07/10/22 07/10/22 07/10/22 17:37 18:53 23:30 WBC RBC Hgb Hct MCV MCH Plt Count Seg Neutrophils % Seg Neutrophils # PT APTT D-Dimer ABG pH ABG pO2 ABG HCO3 ABG O2 Saturation ABG Base Excess ABG Hemoglobin Oxyhemoglobin Sodium Potassium Chloride 109.5 H 110.2 H Carbon Dioxide BUN Creatinine 0.5 L 0.5 L Glucose 243 H 208 H POC Glucose 237 H Lactic Acid Uric Acid Calcium 8.1 L 8.1 L Magnesium Ferritin Total Bilirubin AST Lactate Dehydrogenase Total Creatine Kinase C-Reactive Protein Total Protein Albumin TSH Urine WBC (Auto) Urine Creatinine Salicylates Acetaminophen Valproic Acid SARS-CoV-2 (PCR) 07/10/22 07/11/22 07/11/22 23:57 04:00 04:15 WBC 11.2 H RBC Hgb Hct MCV 99 H MCH Plt Count 73 L Seg Neutrophils % Seg Neutrophils # PT APTT D-Dimer ABG pH ABG pO2 107.4 H ABG HCO3 ABG O2 Saturation ABG Base Excess ABG Hemoglobin Oxyhemoglobin Sodium Potassium Chloride Carbon Dioxide BUN Creatinine Glucose POC Glucose 195 H Lactic Acid Uric Acid Calcium Magnesium Ferritin Total Bilirubin AST Lactate Dehydrogenase Total Creatine Kinase C-Reactive Protein Total Protein Albumin TSH Urine WBC (Auto) Urine Creatinine Salicylates Acetaminophen Valproic Acid SARS-CoV-2 (PCR) 07/11/22 07/11/22 07/11/22 05:40 05:40 06:06 WBC RBC Hgb Hct MCV MCH Plt Count Seg Neutrophils % Seg Neutrophils # PT APTT D-Dimer ABG pH ABG pO2 ABG HCO3 ABG O2 Saturation ABG Base Excess ABG Hemoglobin Oxyhemoglobin Sodium Potassium Chloride 109.8 H Carbon Dioxide BUN Creatinine 0.5 L Glucose 160 H POC Glucose 145 H Lactic Acid Uric Acid Calcium 8.3 L Magnesium Ferritin Total Bilirubin AST Lactate Dehydrogenase Total Creatine Kinase 1745 H C-Reactive Protein Total Protein Albumin TSH Urine WBC (Auto) Urine Creatinine Salicylates Acetaminophen Valproic Acid SARS-CoV-2 (PCR) 07/11/22 07/11/22 07/11/22 11:55 11:59 17:44 WBC RBC Hgb Hct MCV MCH Plt Count Seg Neutrophils % Seg Neutrophils # PT APTT D-Dimer ABG pH ABG pO2 ABG HCO3 ABG O2 Saturation ABG Base Excess ABG Hemoglobin Oxyhemoglobin Sodium Potassium Chloride 107.8 H Carbon Dioxide BUN Creatinine 0.5 L Glucose 150 H POC Glucose 150 H 182 H Lactic Acid Uric Acid Calcium 8.2 L Magnesium Ferritin Total Bilirubin AST Lactate Dehydrogenase Total Creatine Kinase C-Reactive Protein Total Protein Albumin TSH Urine WBC (Auto) Urine Creatinine Salicylates Acetaminophen Valproic Acid SARS-CoV-2 (PCR) 07/11/22 07/12/22 07/12/22 17:50 00:10 00:12 WBC RBC Hgb Hct MCV MCH Plt Count Seg Neutrophils % Seg Neutrophils # PT APTT D-Dimer ABG pH ABG pO2 ABG HCO3 ABG O2 Saturation ABG Base Excess ABG Hemoglobin Oxyhemoglobin Sodium Potassium Chloride 108.4 H Carbon Dioxide BUN Creatinine 0.5 L 0.4 L Glucose 191 H 163 H POC Glucose 154 H Lactic Acid Uric Acid Calcium 8.2 L 7.9 L Magnesium Ferritin Total Bilirubin AST Lactate Dehydrogenase Total Creatine Kinase C-Reactive Protein Total Protein Albumin TSH Urine WBC (Auto) Urine Creatinine Salicylates Acetaminophen Valproic Acid SARS-CoV-2 (PCR) 07/12/22 07/12/22 07/12/22 04:00 04:00 04:00 WBC RBC Hgb Hct MCV MCH Plt Count Seg Neutrophils % Seg Neutrophils # PT APTT D-Dimer 925.80 H ABG pH ABG pO2 ABG HCO3 ABG O2 Saturation ABG Base Excess ABG Hemoglobin Oxyhemoglobin Sodium Potassium Chloride Carbon Dioxide BUN Creatinine Glucose POC Glucose Lactic Acid Uric Acid Calcium Magnesium Ferritin 519.5 H Total Bilirubin AST Lactate Dehydrogenase 444 H Total Creatine Kinase C-Reactive Protein Total Protein Albumin TSH Urine WBC (Auto) Urine Creatinine Salicylates Acetaminophen Valproic Acid SARS-CoV-2 (PCR) 07/12/22 07/12/22 07/12/22 04:00 05:00 05:03 WBC 11.7 H RBC 3.33 L Hgb Hct MCV 99 H MCH 33 H Plt Count 68 L Seg Neutrophils % Seg Neutrophils # PT APTT D-Dimer ABG pH 7.453 H ABG pO2 107.9 H ABG HCO3 27.9 H ABG O2 Saturation ABG Base Excess 3.7 H ABG Hemoglobin 10.9 L Oxyhemoglobin Sodium Potassium Chloride Carbon Dioxide BUN Creatinine Glucose POC Glucose 174 H Lactic Acid Uric Acid Calcium Magnesium Ferritin Total Bilirubin AST Lactate Dehydrogenase Total Creatine Kinase C-Reactive Protein Total Protein Albumin TSH Urine WBC (Auto) Urine Creatinine Salicylates Acetaminophen Valproic Acid SARS-CoV-2 (PCR) 07/12/22 07/12/22 07/12/22 12:15 17:18 23:14 WBC RBC Hgb Hct MCV MCH Plt Count Seg Neutrophils % Seg Neutrophils # PT APTT D-Dimer ABG pH ABG pO2 ABG HCO3 ABG O2 Saturation ABG Base Excess ABG Hemoglobin Oxyhemoglobin Sodium Potassium Chloride Carbon Dioxide BUN Creatinine Glucose POC Glucose 154 H 154 H 167 H Lactic Acid Uric Acid Calcium Magnesium Ferritin Total Bilirubin AST Lactate Dehydrogenase Total Creatine Kinase C-Reactive Protein Total Protein Albumin TSH Urine WBC (Auto) Urine Creatinine Salicylates Acetaminophen Valproic Acid SARS-CoV-2 (PCR) 07/13/22 07/13/22 07/13/22 04:00 04:10 05:14 WBC RBC 3.17 L Hgb Hct MCV 98 H MCH 34 H Plt Count 75 L Seg Neutrophils % Seg Neutrophils # PT APTT D-Dimer ABG pH ABG pO2 ABG HCO3 ABG O2 Saturation ABG Base Excess ABG Hemoglobin Oxyhemoglobin Sodium Potassium Chloride Carbon Dioxide BUN Creatinine 0.4 L Glucose 136 H POC Glucose 140 H Lactic Acid Uric Acid Calcium Magnesium Ferritin Total Bilirubin AST Lactate Dehydrogenase Total Creatine Kinase C-Reactive Protein Total Protein Albumin TSH Urine WBC (Auto) Urine Creatinine Salicylates Acetaminophen Valproic Acid SARS-CoV-2 (PCR) 07/13/22 07/13/22 07/13/22 12:03 14:25 17:19 WBC RBC Hgb Hct MCV MCH Plt Count Seg Neutrophils % Seg Neutrophils # PT APTT D-Dimer ABG pH 7.478 H ABG pO2 118.1 H ABG HCO3 28.2 H ABG O2 Saturation ABG Base Excess 4.5 H ABG Hemoglobin Oxyhemoglobin Sodium Potassium Chloride Carbon Dioxide BUN Creatinine Glucose POC Glucose 193 H 189 H Lactic Acid Uric Acid Calcium Magnesium Ferritin Total Bilirubin AST Lactate Dehydrogenase Total Creatine Kinase C-Reactive Protein Total Protein Albumin TSH Urine WBC (Auto) Urine Creatinine Salicylates Acetaminophen Valproic Acid SARS-CoV-2 (PCR) 07/13/22 07/13/22 07/14/22 23:52 Unknown 06:18 WBC RBC Hgb Hct MCV MCH Plt Count Seg Neutrophils % Seg Neutrophils # PT APTT D-Dimer ABG pH 7.465 H ABG pO2 128.8 H ABG HCO3 29.0 H ABG O2 Saturation ABG Base Excess 4.9 H ABG Hemoglobin 10.3 L Oxyhemoglobin Sodium Potassium Chloride Carbon Dioxide BUN Creatinine Glucose POC Glucose 174 H 167 H Lactic Acid Uric Acid Calcium Magnesium Ferritin Total Bilirubin AST Lactate Dehydrogenase Total Creatine Kinase C-Reactive Protein Total Protein Albumin TSH Urine WBC (Auto) Urine Creatinine Salicylates Acetaminophen Valproic Acid SARS-CoV-2 (PCR) 07/14/22 07/14/22 07/15/22 11:34 17:20 00:25 WBC RBC Hgb Hct MCV MCH Plt Count Seg Neutrophils % Seg Neutrophils # PT APTT D-Dimer ABG pH ABG pO2 ABG HCO3 ABG O2 Saturation ABG Base Excess ABG Hemoglobin Oxyhemoglobin Sodium Potassium Chloride Carbon Dioxide BUN Creatinine Glucose POC Glucose 187 H 221 H 172 H Lactic Acid Uric Acid Calcium Magnesium Ferritin Total Bilirubin AST Lactate Dehydrogenase Total Creatine Kinase C-Reactive Protein Total Protein Albumin TSH Urine WBC (Auto) Urine Creatinine Salicylates Acetaminophen Valproic Acid SARS-CoV-2 (PCR) 07/15/22 07/15/22 07/15/22 04:00 04:00 05:49 WBC 11.4 H RBC 3.13 L Hgb Hct MCV 98 H MCH 33 H Plt Count 98 L Seg Neutrophils % Seg Neutrophils # PT APTT D-Dimer ABG pH ABG pO2 ABG HCO3 ABG O2 Saturation ABG Base Excess ABG Hemoglobin Oxyhemoglobin Sodium Potassium Chloride Carbon Dioxide 34 H BUN Creatinine 0.4 L Glucose 126 H POC Glucose 143 H Lactic Acid Uric Acid Calcium Magnesium Ferritin Total Bilirubin AST Lactate Dehydrogenase Total Creatine Kinase C-Reactive Protein Total Protein Albumin TSH Urine WBC (Auto) Urine Creatinine Salicylates Acetaminophen Valproic Acid SARS-CoV-2 (PCR) 07/15/22 07/15/22 07/16/22 11:19 16:16 00:19 WBC RBC Hgb Hct MCV MCH Plt Count Seg Neutrophils % Seg Neutrophils # PT APTT D-Dimer ABG pH ABG pO2 ABG HCO3 ABG O2 Saturation ABG Base Excess ABG Hemoglobin Oxyhemoglobin Sodium Potassium Chloride Carbon Dioxide BUN Creatinine Glucose POC Glucose 158 H 227 H 153 H Lactic Acid Uric Acid Calcium Magnesium Ferritin Total Bilirubin AST Lactate Dehydrogenase Total Creatine Kinase C-Reactive Protein Total Protein Albumin TSH Urine WBC (Auto) Urine Creatinine Salicylates Acetaminophen Valproic Acid SARS-CoV-2 (PCR) 07/16/22 07/16/22 07/16/22 04:20 04:20 11:28 WBC RBC 3.16 L Hgb Hct MCV 99 H MCH 33 H Plt Count 101 L Seg Neutrophils % Seg Neutrophils # PT APTT D-Dimer ABG pH ABG pO2 ABG HCO3 ABG O2 Saturation ABG Base Excess ABG Hemoglobin Oxyhemoglobin Sodium Potassium Chloride Carbon Dioxide 36 H BUN 18 H Creatinine 0.4 L Glucose 139 H POC Glucose 158 H Lactic Acid Uric Acid Calcium Magnesium Ferritin Total Bilirubin AST Lactate Dehydrogenase Total Creatine Kinase C-Reactive Protein Total Protein Albumin TSH Urine WBC (Auto) Urine Creatinine Salicylates Acetaminophen Valproic Acid SARS-CoV-2 (PCR) 07/16/22 07/17/22 07/17/22 16:30 00:07 05:46 WBC RBC Hgb Hct MCV MCH Plt Count Seg Neutrophils % Seg Neutrophils # PT APTT D-Dimer ABG pH ABG pO2 ABG HCO3 ABG O2 Saturation ABG Base Excess ABG Hemoglobin Oxyhemoglobin Sodium Potassium Chloride Carbon Dioxide BUN Creatinine Glucose POC Glucose 201 H 139 H 123 H Lactic Acid Uric Acid Calcium Magnesium Ferritin Total Bilirubin AST Lactate Dehydrogenase Total Creatine Kinase C-Reactive Protein Total Protein Albumin TSH Urine WBC (Auto) Urine Creatinine Salicylates Acetaminophen Valproic Acid SARS-CoV-2 (PCR) 07/17/22 07/17/22 07/17/22 13:30 17:51 23:49 WBC RBC Hgb Hct MCV MCH Plt Count Seg Neutrophils % Seg Neutrophils # PT APTT D-Dimer ABG pH ABG pO2 ABG HCO3 ABG O2 Saturation ABG Base Excess ABG Hemoglobin Oxyhemoglobin Sodium Potassium Chloride Carbon Dioxide BUN Creatinine Glucose POC Glucose 185 H 219 H 133 H Lactic Acid Uric Acid Calcium Magnesium Ferritin Total Bilirubin AST Lactate Dehydrogenase Total Creatine Kinase C-Reactive Protein Total Protein Albumin TSH Urine WBC (Auto) Urine Creatinine Salicylates Acetaminophen Valproic Acid SARS-CoV-2 (PCR) 09/07/0107/18/22 07/18/22 04:00 04:00 04:00 WBC 12.2 H RBC 3.34 L Hgb Hct MCV 100 H MCH 33 H Plt Count 113 L Seg Neutrophils % 77.3 H Seg Neutrophils # 9.4 H PT APTT D-Dimer ABG pH 7.508 H ABG pO2 115.9 H ABG HCO3 33.4 H ABG O2 Saturation ABG Base Excess 9.4 H ABG Hemoglobin 11.7 L Oxyhemoglobin Sodium Potassium Chloride Carbon Dioxide 35 H BUN Creatinine 0.4 L Glucose 130 H POC Glucose Lactic Acid Uric Acid Calcium Magnesium Ferritin Total Bilirubin AST Lactate Dehydrogenase Total Creatine Kinase C-Reactive Protein Total Protein Albumin TSH Urine WBC (Auto) Urine Creatinine Salicylates Acetaminophen Valproic Acid SARS-CoV-2 (PCR) 07/18/22 07/18/22 07/18/22 04:42 12:31 12:33 WBC RBC Hgb Hct MCV MCH Plt Count Seg Neutrophils % Seg Neutrophils # PT APTT D-Dimer ABG pH ABG pO2 ABG HCO3 ABG O2 Saturation ABG Base Excess ABG Hemoglobin Oxyhemoglobin Sodium Potassium Chloride Carbon Dioxide BUN Creatinine Glucose POC Glucose 134 H 172 H Lactic Acid Uric Acid Calcium Magnesium Ferritin Total Bilirubin AST Lactate Dehydrogenase Total Creatine Kinase C-Reactive Protein Total Protein Albumin TSH 9.750 H Urine WBC (Auto) Urine Creatinine Salicylates Acetaminophen Valproic Acid SARS-CoV-2 (PCR) 07/18/22 07/19/22 07/19/22 17:39 00:43 05:08 WBC RBC Hgb Hct MCV MCH Plt Count Seg Neutrophils % Seg Neutrophils # PT APTT D-Dimer ABG pH ABG pO2 ABG HCO3 ABG O2 Saturation ABG Base Excess ABG Hemoglobin Oxyhemoglobin Sodium Potassium Chloride Carbon Dioxide BUN Creatinine Glucose POC Glucose 164 H 132 H 143 H Lactic Acid Uric Acid Calcium Magnesium Ferritin Total Bilirubin AST Lactate Dehydrogenase Total Creatine Kinase C-Reactive Protein Total Protein Albumin TSH Urine WBC (Auto) Urine Creatinine Salicylates Acetaminophen Valproic Acid SARS-CoV-2 (PCR) 07/19/22 07/19/22 07/19/22 12:30 17:42 23:26 WBC RBC Hgb Hct MCV MCH Plt Count Seg Neutrophils % Seg Neutrophils # PT APTT D-Dimer ABG pH ABG pO2 ABG HCO3 ABG O2 Saturation ABG Base Excess ABG Hemoglobin Oxyhemoglobin Sodium Potassium Chloride Carbon Dioxide BUN Creatinine Glucose POC Glucose 159 H 139 H 144 H Lactic Acid Uric Acid Calcium Magnesium Ferritin Total Bilirubin AST Lactate Dehydrogenase Total Creatine Kinase C-Reactive Protein Total Protein Albumin TSH Urine WBC (Auto) Urine Creatinine Salicylates Acetaminophen Valproic Acid SARS-CoV-2 (PCR) 07/20/22 07/20/22 05:30 06:03 WBC RBC Hgb Hct MCV MCH Plt Count Seg Neutrophils % Seg Neutrophils # PT APTT D-Dimer ABG pH 7.503 H ABG pO2 99.1 H ABG HCO3 32.8 H ABG O2 Saturation ABG Base Excess 8.8 H ABG Hemoglobin 9.7 L Oxyhemoglobin Sodium Potassium Chloride Carbon Dioxide BUN Creatinine Glucose POC Glucose 146 H Lactic Acid Uric Acid Calcium Magnesium Ferritin Total Bilirubin AST Lactate Dehydrogenase Total Creatine Kinase C-Reactive Protein Total Protein Albumin TSH Urine WBC (Auto) Urine Creatinine Salicylates Acetaminophen Valproic Acid SARS-CoV-2 (PCR)
--- NOTE | 2022-07-20 12:14 | Progress Note ---
Assessment and Plan Assessment and plan: This is a 76-year-old female with CVA, pulmonary embolism, hypothyroidism and JUJU admitted with electrolyte imbalances, hypoxic respiratory failure and COVID- 19 pneumonia Neuro: Acute metabolic encephalopathy, h/o CVA with hemiplegia, dysphagia, aphasia, dementia -Neurology consulted, appreciate recommendations -Reorientation as needed -Maintain sleep-wake cycle -Resume home Lipitor -As needed analgesia -CT head shows no acute intracranial hemorrhage, multiple chronic appearing infarcts including left MCA distribution, left cerebral hemisphere and within the right basal ganglia -Depakene -EEG compatible with significant diffuse encephalopathy -MRI shows no acute findings, remote infarction of the left frontal lobe and left cerebellum, moderate sequela of chronic microvascular disease Cardiac: h/o HLD -Resume home Lipitor -Blood pressure monitoring per protocol Respiratory: Acute hypoxic respiratory failure, h/o JUJU, pulmonary embolism -CCM consulted, appreciate recommendations -Intubated on 07/07 with a 7.50 ETT at 24 the lips -A.m. vent settings: Assist-control rate 12, tidal volume 400, PEEP 6, FiO2 30% -See RT notes for titration -A.m. ABG and CXR noted -VAP bundle -SPO2 monitoring GI: NAD -24 hours +100 ml -PPI -NTR consulted for tube feedings -BR: Senokot-S : Rhabdomyolysis -Nephrology consulted, appreciate recommendations -Monitor intake and output -Free water flush -Renally dose medications -Avoid nephrotoxic medications -Trend BMP ID: COVID-19 pneumonia, lactic acidosis, Klebsiella pneumonia -Infectious disease consulted, appreciate recommendation - s/p Azithromycin 07/07-07/10, Rocephin -Decadron 10mg for 10 days () -s/p Remdesivir () -CRP 0.3, procalcitonin 0.19 -Contact/droplet precautions discontinued -f/u blood culture -Trend COVID-19 inflammatory markers -Monitor WBC and temperature curve -Prophylactic anticoagulation based on D-dimer per hospital protocol Endo: h/o hypothyroidism -Avoid hypoglycemia -SSI -Accu-Cheks q. 6 -Long-acting insulin, titrate as needed -Resume home Synthroid Heme: Thrombocytopenia (improving) -Trend CBC -Transfuse hemoglobin less than 7 -SCDs to BLE while in bed The high probability of a clinically significant, sudden or life threatening deterioration of the [multi] system(s) required my full and direct attention, intervention and personal management. The aggregate critical care time was [60] minutes. This time is in addition to time spent performing reported procedures but includes the following: [x] Data Review and interpretation [x] Patient assessment and monitoring of vital signs [x] Documentation [x] Medication orders and management Disposition Plan: icu Total Time Spent with Patient (Minutes): 60 History Interval history: This is a 76-year-old female with CVA resulting hemiplegia, dysphagia, aphasia, dementia, pulm embolism without acute cor pulmonale, hypothyroidism and JUJU who presented to the hospital on 07/07 from her residential for altered mental status and diminished cognition and possible hypoxia via EMS. In the emergency department patient was intubated due to concern for airway protection. Recommend emergency department showed leukocytosis, hyponatremia with a sodium of 168, hypercalcemia, hypomagnesemia, elevated CK. Patient was admitted to the hospitalist service with acute hypoxic respiratory failure, COVID-19 PUI, hypernatremia, transaminitis, rhabdomyolysis with consults to CCM and nephrology: Hospital course to date: 07/08: Patient noted to be COVID-positive, started on remdesivir, Decadron, ceftriaxone azithromycin and infectious disease was consulted yesterday. This morning patient is on any sedation, PICC line to be placed. RT to attempt PSV. Started on free water flushes and tube feedings. Continues on D5 half-normal saline. 07/09: Patient remains encephalopathic, not on any sedation. Hypernatremia is improving, on FWF Q4hrs and D5w gtt per Nephro. If hypernatremia continue to improve and patient's mentation is unchanged, will get a repeat CT to r/o intracranial abnormalities. Patient remains afebrile, leukocytosis improved, and VSS. Continue current IV abx per ID. Patient failed PSV trial again today, continue PSV trial as tolerated 07/10: Remains stable on the vent, tolerating PSV trial this am. sodium continue to improve but no change in mental status. D/w CCM will get MRI brain to r/o any intracranial abnormalities, EEG also ordered to r/o seizures. Continue FWF and D5w gtt per Nephro. Continue IV steroids and current IV abx per ID. 07/11: Hypernatremia resolved, mentation is unchanged, remains on low vent setting. EEG noted, and MRI brain pending. Will consult Neurology for further recommendations. Continue daily PSV trial as tolerated. 07/12: Appears more awake this morning but still not following any commands. MRI brain with no acute findings and sodium normalized. Awaiting Neuro consult. Continue daily PSV trial as tolerated. Patient's daughter was updated via phone, all questions and concerns were addressed at this time. Medical records requested from [facility] and [facility]. 07/13: DELMI overnight. Mentation is unchanged, remains stable on the vent. Neurology consult pending. Continue vent adjustment per [facility] and daily PSV trial as tolerated. 07/14: Mentation is unchanged, remains afebrile and stable on the vent, VSS. Complete antibiotics course, still on IV steroids X3 more days. ID recommendations noted, remove corbin. Continue daily PSV trial as tolerated. 07/15: DELMI overnight, mentation unchanged, VSS. Patient failed PSV trial this am due to apnea. Continue daily PSV trial as tolerated. Possible trach and Peg per [facility]. 07/16: No acute events overnight, attempted PSV again today. [facility] to have family meeting on 07/17 to discuss trach/PEG 07/17: [facility] will have family meeting tomorrow. Failed PSV again. No acute events overnight. Thrombocytopenia continues to improve 07/18: [facility] held a family meeting today and surgery will be consulted for trach/PEG placement. Family stated that patient had not had her levothyroxine for several months due to decreased p.o. intake, will send thyroid panel. No acute events reported overnight. Hypotension today and 500 mL normal saline bolus given. Possible trach/peg within 2 days 07/19: No acute events reported overnight. Free T4 normal. Failed PSV 07/20: No acute events reported overnight. Patient taken off isolation per ID. Trach/PEG scheduled for Friday. failed PSV Hospitalist Physical - Constitutional Vitals: Temp Pulse Resp BP Pulse Ox 99.1 F 111 H 13 107/60 98 07/19/22 23:41 07/20/22 11:32 07/20/22 11:32 07/20/22 11:32 07/20/22 11:32 General appearance: Present: no acute distress, other (Intubated, unresponsive, not on any sedation) - EENT Eyes: Present: PERRL - Neck Neck: Present: normal ROM - Respiratory Respiratory effort: normal Respiratory: bilateral: diminished - Cardiovascular Rhythm: regular Heart Sounds: Present: S1 & S2. Absent: systolic murmur, diastolic murmur - Extremities Extremities: no ischemia, pulses intact, pulses symmetrical, normal temperature, normal color Peripheral Pulses: within normal limits - Abdominal General gastrointestinal: soft, non-tender, non-distended, normal bowel sounds - Integumentary Integumentary: Present: clear, warm - Psychiatric Psychiatric: other - Neurologic Neurologic: other (more awake) - Allied Health Allied health notes reviewed: nursing, RT HEART Score - HEART Score Troponin: Troponin T 0.010 ng/mL (0.00-0.029) 07/07/22 04:17 Results - Labs CBC & Chem 7: 07/18/22 04:00 07/18/22 04:00 Labs: Laboratory Last Values WBC 12.2 K/mm3 (4.5-11.0) H 07/18/22 04:00 RBC 3.34 M/mm3 (3.65-5.03) L 07/18/22 04:00 Hgb 11.0 gm/dl (10.1-14.3) 07/18/22 04:00 Hct 33.3 % (30.3-42.9) 07/18/22 04:00 MCV 100 fl (79-97) H 07/18/22 04:00 MCH 33 pg (28-32) H 07/18/22 04:00 MCHC 33 % (30-34) 07/18/22 04:00 RDW 14.7 % (13.2-15.2) 07/18/22 04:00 Plt Count 113 K/mm3 (140-440) L 07/18/22 04:00 Lymph % (Auto) 19.3 % (13.4-35.0) 07/18/22 04:00 [place] % (Auto) 3.2 % (0.0-7.3) 07/18/22 04:00 Eos % (Auto) 0.1 % (0.0-4.3) 07/18/22 04:00 Baso % (Auto) 0.1 % (0.0-1.8) 07/18/22 04:00 Lymph # (Auto) 2.4 K/mm3 (1.2-5.4) 07/18/22 04:00 [place] # (Auto) 0.4 K/mm3 (0.0-0.8) 07/18/22 04:00 Eos # (Auto) 0.0 K/mm3 (0.0-0.4) 07/18/22 04:00 Baso # (Auto) 0.0 K/mm3 (0.0-0.1) 07/18/22 04:00 Seg Neutrophils % 77.3 % (40.0-70.0) H 07/18/22 04:00 Seg Neutrophils # 9.4 K/mm3 (1.8-7.7) H 07/18/22 04:00 PT 15.0 Sec. (12.2-14.9) H 07/07/22 03:38 INR 1.06 (0.87-1.13) 07/07/22 03:38 APTT 23.0 Sec. (24.2-36.6) L 07/07/22 03:38 D-Dimer 925.80 ng/mlDDU (0-234) H 07/12/22 04:00 ABG pH 7.503 pH Units (7.350-7.450) H 07/20/22 05:30 ABG pCO2 42.7 mm Hg 07/20/22 05:30 ABG pO2 99.1 mm Hg (80.0-90.0) H 07/20/22 05:30 ABG HCO3 32.8 mmol/L (20.0-26.0) H 07/20/22 05:30 ABG O2 Saturation 97.8 % (95.0-99.0) 07/20/22 05:30 ABG O2 Content 13.3 (0.0-44) 07/20/22 05:30 ABG Base Excess 8.8 mmol/L (-2.0-3.0) H 07/20/22 05:30 ABG Hemoglobin 9.7 gm/dl (12.0-16.0) L 07/20/22 05:30 ABG Carboxyhemoglobin 1.3 % (0.0-5.0) 07/20/22 05:30 ABG Methemoglobin 0.6 % (0.0-1.5) 07/20/22 05:30 Oxyhemoglobin 95.9 % (95.0-99.0) 07/20/22 05:30 FiO2 28 % 07/20/22 05:30 Sodium 138 mmol/L (137-145) 07/18/22 04:00 Potassium 4.2 mmol/L (3.6-5.0) 07/18/22 04:00 Chloride 98.5 mmol/L (98-107) 07/18/22 04:00 Carbon Dioxide 35 mmol/L (22-30) H 07/18/22 04:00 Anion Gap 9 mmol/L 07/18/22 04:00 BUN 16 mg/dL (7-17) 07/18/22 04:00 Creatinine 0.4 mg/dL (0.6-1.2) L 07/18/22 04:00 Estimated GFR > 60 ml/min 07/18/22 04:00 BUN/Creatinine Ratio 40 % 07/18/22 04:00 Glucose 130 mg/dL (65-100) H 07/18/22 04:00 POC Glucose 146 mg/dL (70-105) H 07/20/22 06:03 Lactic Acid 2.10 mmol/L (0.7-2.0) H* 07/10/22 08:24 Uric Acid 13.5 mg/dL (3.5-7.6) H 07/07/22 04:17 Calcium 8.7 mg/dL (8.4-10.2) 07/18/22 04:00 Phosphorus 2.90 mg/dL (2.5-4.5) 07/16/22 04:20 Magnesium 1.80 mg/dL (1.7-2.3) 07/16/22 04:20 Ferritin 519.5 ng/mL (10.0-200.0) H 07/12/22 04:00 Total Bilirubin 0.30 mg/dL (0.1-1.2) 07/10/22 04:21 AST 89 units/L (5-40) H 07/10/22 04:21 ALT 53 units/L (7-56) 07/10/22 04:21 Alkaline Phosphatase 83 units/L (35-129) 07/10/22 04:21 Ammonia 32.0 umol/L (25-60) 07/07/22 04:17 Lactate Dehydrogenase 444 units/L (91-180) H 07/12/22 04:00 Total Creatine Kinase 1745 units/L (30-135) H 07/11/22 05:40 Troponin T 0.010 ng/mL (0.00-0.029) 07/07/22 04:17 C-Reactive Protein 0.30 mg/dL (0.00-1.30) 07/12/22 04:00 Total Protein 4.9 g/dL (6.3-8.2) L 07/10/22 04:21 Albumin 2.5 g/dL (3.9-5) L 07/10/22 04:21 Albumin/Globulin Ratio 1.0 % 07/10/22 04:21 Procalcitonin 0.19 ng/mL (<0.15) 07/08/22 14:54 TSH 9.750 mlU/mL (0.270-4.200) H 07/18/22 12:31 Free T4 0.78 ng/dL (0.76-1.46) 07/18/22 12:31 Thyroxine (T4) 6.2 ug/dL (4.0-12.0) 07/18/22 12:31 Total Cortisol 47.9 mcg/dL () 07/07/22 07:43 Urine Color Yellow (Yellow) 07/07/22 03:17 Urine Turbidity Slightly cloudy (Clear) 07/07/22 03:17 Specific [place] (Man) 1.015 (1.003-1.030) 07/07/22 03:17 Ur Protein (Man) 1+ mg/dL (Negative) 07/07/22 03:17 Ur Ketones (Man) Negative (Negative) 07/07/22 03:17 Ur Nitrite (Man) Negative (Negative) 07/07/22 03:17 Urine Bilirubin (Man) Negative (Negative) 07/07/22 03:17 Leukocyte Esterase (Man) Negative (Negative) 07/07/22 03:17 Urine WBC (Auto) 7.0 /HPF (0.0-6.0) H 07/07/22 03:17 Urine RBC (Auto) 1.0 /HPF (0.0-6.0) 07/07/22 03:17 U Epithel Cells (Auto) 4.0 /HPF (0-13.0) 07/07/22 03:17 Urine Bacteria (Auto) 3+ /HPF (Negative) 07/07/22 03:17 Urine RBC (Manual) 3+ (Negative) 07/07/22 03:17 Urine Mucus 3+ /HPF 07/07/22 03:17 Urine Osmolality 744 Mosm/kg 07/07/22 16:45 Urine Creatinine 92.9 mg/dL (0.1-20.0) H 07/07/22 16:45 Urine Sodium 109 mmol/L 07/07/22 16:45 Salicylates < 0.3 mg/dL (2.8-20.0) L 07/07/22 03:38 Urine Opiates Screen Presumptive negative 07/07/22 03:17 Urine Methadone Screen Presumptive negative 07/07/22 03:17 Acetaminophen 5.0 ug/mL (10.0-30.0) L 07/07/22 03:38 Ur Barbiturates Screen Presumptive negative 07/07/22 03:17 Valproic Acid 7.0 ug/mL (50-100) L 07/07/22 03:38 Ur Phencyclidine Scrn Presumptive negative 07/07/22 03:17 Ur Amphetamines Screen Presumptive negative 07/07/22 03:17 U Benzodiazepines Scrn Presumptive negative 07/07/22 03:17 Urine Cocaine Screen Presumptive negative 07/07/22 03:17 U Marijuana (THC) Screen Presumptive negative 07/07/22 03:17 Drugs of Abuse Note Disclamer 07/07/22 03:17 Plasma/Serum Alcohol < 0.01 % (0-0.07) 07/07/22 03:38 SARS-CoV-2 (PCR) Positive (Negative) A 07/07/22 15:00 [place]/IV: Voiding Method External Female Catheter Active Medications - Current Medications Current Medications: Generic Name Dose Route Start Last Admin Trade Name Freq PRN Reason Stop Dose Admin Acetaminophen 650 mg 07/13/22 12:00 07/19/22 18:30 Acetaminophen 325 Mg/10.15 Ml Oral Liqd Unit Dose FEEDTUBE 650 mg Q6H PRN Administration Pain MILD(1-3)/Fever >100.5/LEE Atorvastatin Calcium 80 mg 07/10/22 22:00 07/19/22 21:14 Atorvastatin 40 Mg Tab FEEDTUBE 80 mg QHS ERROL Administration Cholecalciferol 1,000 unit 07/10/22 10:00 07/20/22 09:23 Cholecalciferol (Vit D3) 1000 Unit (25 Mcg) Tab FEEDTUBE 1,000 unit QDAY ERROL Administration Dextrose 50 ml 07/09/22 11:42 Dextrose 50% In Water (25gm) 50 Ml Syringe IV Q30MIN PRN Hypoglycemia Protocol Famotidine 20 mg 07/09/22 22:00 07/20/22 09:22 Famotidine 20 Mg Tab FEEDTUBE 20 mg BID ERROL Administration Heparin Sodium (Porcine) 5,000 unit 07/08/22 06:00 07/20/22 06:33 Heparin 5,000 Unit/1 Ml Vial SUB-Q 5,000 unit Q12H ERROL Administration Hydrophilic Ointment 1 applic 07/07/22 02:48 Lip Therapy Vaseline TP Q2HR PRN Dry Lips Insulin Human Lispro 0 unit 07/09/22 12:00 07/20/22 06:33 Insulin Lispro 100 Unit/Ml SUB-Q 1 unit Q6HR ERROL Administration Protocol Levothyroxine Sodium 75 mcg 07/11/22 06:00 07/20/22 06:33 Levothyroxine 75 Mcg Tab FEEDTUBE 75 mcg QAM@0600 ERROL Administration Multi-Ingred Cream/Lotion/Oil/Oint 1 applic 07/07/22 02:48 Mineral Oil/Petrolatum, White Ophth Oint 3.5 Gm OU Q4HR PRN Dry Eye(s) Senna/Docusate Sodium 1 tab 07/07/22 10:00 07/20/22 09:42 Sennosides/Docusate Sodium 8.6/50 Mg Tab FEEDTUBE 1 tab BID ERROL Administration Sodium Chloride 10 ml 07/07/22 13:00 07/20/22 09:23 Sodium Chloride 0.9% 10 Ml Flush Syringe IV 10 ml BID ERROL Administration Sodium Chloride 10 ml 07/07/22 12:09 Sodium Chloride 0.9% 10 Ml Flush Syringe IV PRN PRN LINE FLUSH Valproic Acid 250 mg 07/10/22 22:00 07/20/22 09:22 Valproic Acid 250 Mg/5 Ml Oral Liqd FEEDTUBE 250 mg Q12H ERROL Administration Nutrition/Malnutrition Assess - Dietary Evaluation Nutrition/Malnutrition Findings: Nutrition Notes Start: 07/07/22 13:24 Freq: Status: Active Protocol: Document 07/17/22 11:13 DAREN (Rec: 07/17/22 11:42 DAREN [id number]) Nutrition Notes Initial or Follow up Reassessment Current Diagnosis Respiratory Failure,Stroke Other Pertinent Diagnosis COVID-19, Metabolic Encephalopathy, Pulmonary Embolism, Dementia. Current Diet TF-Vital AF 1.2 [place] @ 50 ml/hr (from D 07/12). Labs/Tests 07/17: CO2 36, BUN 18, Crea 0. 4, Glu 139. Pertinent Medications 07/17: Vit D3, Levothyroxine, others nutritionally unremarkable. Height 5 ft 6 in Weight 95.254 kg [place] Body Weight (kg) 59.09 BMI 33.9 Weight change and time frame No body weight change reported in 11 days. Weight Status Obese Subjective/Other Information RD consult for routine F/U on TF tolerance/continuation assessment. TF continues as prescribed, and well tolerated, according to RN notes. Pt continues on Mechanical Ventilation, O2 saturation @ 100%, according to Physical Assessment History notes. Pt presents caries and has missing teeth, according to Physical Assessment History notes. Pt presents bilateral-UE Non- Pitting Edema 2+, according to Physical Assessment History notes. Pt remains incontinent, according to Physical Assessment History notes. Pt presents dysphagia, hemiplegia, and aphasia, according to Physical Assessment History notes. Tracheostomy and PEG-tube placement are being discussed with family, according to Progress notes. Pt is resident of a SNF according to Progress notes. Percent of energy/protein needs met: Prescribed TF-Vital AF 1.2 [place] @ 50 ml/hr provides for energy/protein needs (1,440 Kcal/90 g) during LOS, 101% Kcal, 91% AA. Burn Absent Trauma Absent GI Symptoms Other Difficulty In Swallowing,Chewing Food Allergy No Skin Integrity/Comment Assessment WNL. Current % PO Other Minimum of two criteria Yes Energy Intake (non-severe) <75% Estimated Energy Requirement >7 days Interpretation of Weight Loss (non- 5% in 1 month severe) Fluid Accumulation Mild (non-severe) Reduced [employer] Airplane Strength N/A (non-severe) Protein-Calorie Malnutrition Non-Severe #2 Nutrition Diagnosis Malnutrition Diagnosis Progress(for reassessment Continues documentation) #1 Nutrition Diagnosis Inadequate oral intake Diagnosis Progress(for reassessment Continues documentation) Is patient on ventilator? Yes Is Patient Ambulatory and/or Out of Bed No REE-([place]-St. Jeor-confined to bed) 1763.208 Kcal/Kg value to use for calculation 15 Approximate Energy Requirements Using 1429 kcal/Kg Calculation Used for Recommendations Kcal/kg Additional Notes Protein: 1.3 g/Kg AdjBW; 99 g/ day. Fluids: 1 ml/Kcal, or as per MD. Nutrition Intervention Nutrition Support: Continue TF-Vital AF 1.2 [place] @ 50 ml/hr. Flush: 75 ml water Q 4 hr, or as per MD. Kcal 1,440 Protein (gm) 90 Carbohydrates (gm) 133 Fat (gm) 65 Fluid (mL) 973 Fiber (gm) 6 % RDI: 101% Kcal; 91% AA. Goal #1 Provide at least 75% of energy /protein needs through Enteral Feeding during LOS. Goal #2 Adjust the dietary intervention to better serve Pt's needs and clinical conditions during LOS. Follow-Up By: 07/24/22 Additional Comments Continue monitoring TF tolerance, ventilation status, PEG-tube placement, and BM.
[2022-07-20] MEDS: ACETAMINOPHEN 325 MG/10.15 ML ORAL LIQD UNIT DOSE FEEDTUBE PRN (17:53)
[2022-07-21] MEDS: INSULIN LISPRO 100 UNIT/ML SUB-Q SCH ×4 (01:00→17:29)
[2022-07-21 04:58] LABS: Hemoglobin 9.6 gm/dl (10.1-14.3); Mean Corpuscular HGB Conc 33 % (30-34); Mean Corpuscular Volume 99 fl (79-97); Platelet Count 136 K/mm3 (140-440); Red Blood Count 2.92 M/mm3 (3.65-5.03); Red Cell Distribution Width 15.6 % (13.2-15.2)
[2022-07-21 05:08] LABS: Blood Urea Nitrogen 14 mg/dL (7-17); Calcium 8.3 mg/dL (8.4-10.2); Hemolysis Index 10
[2022-07-21 05:15] LABS: BUN/Creatinine Ratio 47
[2022-07-21] MEDS: LEVOTHYROXINE 75 MCG TAB FEEDTUBE SCH (06:20)
[2022-07-21] MEDS: HEPARIN 5,000 UNIT/1 ML VIAL SUB-Q SCH ×2 (06:20→17:30)
[2022-07-21] MEDS: CHOLECALCIFEROL (VIT D3) 1000 UNIT (25 mcg) TAB FEEDTUBE SCH (09:37)
[2022-07-21] MEDS: SENNOSIDES/DOCUSATE SODIUM 8.6/50 MG TAB FEEDTUBE SCH ×2 (09:37→22:18)
[2022-07-21] MEDS: FAMOTIDINE 20 MG TAB FEEDTUBE SCH ×2 (09:37→22:21)
[2022-07-21] MEDS: VALPROIC ACID 250 MG/5 ML ORAL LIQD FEEDTUBE SCH ×2 (09:38→22:17)
--- NOTE | 2022-07-21 11:05 | Progress Note ---
Assessment and Plan 76 y/o female with acute respiratory failure secondary to altered mental status, most likely from electrolyte abnormalities seen on chemistry, found to be COVID positive. 07/21/22: Did 6 hours of PSV yesterday. Trach and peg tomorrow. Check labs to make sure lytes are stable. 07/20/22: Trach/Peg Friday. Supportive care. 07/19/22: Appreciate Surgery. on Schedule for next week. Free T4 was normal. No current indication for stress dose steroids. Continue supportive care. 07/18/22: Family meeting: Discussed current mental state. Discussed negative work up so far to explain why mental state hasnt improved. Per family here, p atient was better than what she is not but I had difficult time placing a time frame as to when that was, maybe May. It does appear that she has had a steady decline mentally and even stopped eating. There were talks prior to her admission here about Peg tube placement. Discussed the idea of trach and peg placement. Also explained to family that trach does not fix any underlying reason as to why the patient's mental state is the way it is. The family wasn't aware that she was brought in for altered mental status, they were told she had bradycardia. Nonetheless, the family as a whole wish to pursue trach and peg placement. Consulted Surgery and hopeful they will see soon. Continue menard pportive measures and continue daily PSV trials. TSH on admit was 13, will repeat but if T4 is normal, nothing to do. She also is not behaving like myxedema coma. Guarded prognosis. 07/17/22: steroids end today. Continue daily PSV trials. Will speak with family about next steps as today is day 10 of intubation and it does not appear that conventional extubation is in the near future. 07/16/22: Continue daily PSV trials. Will speak with family tomorrow as patient is not improving enough for conventional extubation, especially with frequent apnic events. Most likely patient will need trach and peg. 07/15/22: mental status is still unchanged. Eyes open but not tracking or following commands. Also going apnic on PSV trials. Most likely will need trach and peg given mental status has not improved. 07/12/22: Negative MRI for acute infarct. Na is normal. Continue to monitor. Daily PSV trials. Has been intubated now for 5 days. 07/11/22: for MRI today. Appreciate renal help, agree with signing off. Attempt daily PSV. Guarded prognosis. 07/10: follow up MRI. Get official EEG read but no status. Continue daily PSV trials. Guarded prognosis 07/09/22: Continue supportive measures. Continue to fix Na, if no improvement in mental state with normal sodium then will pursue MRI. Picc placed today. 07/08/22: No further sedation. 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 Consider neurology consult and may need to obtain MRI. Attempt PSV trials today. needs Picc line placed for residential access as patient is a difficult stick. Feed patient and monitor lytes. 1. Discontinue sedation 2. Wean FiO2 for sats >88% and PaO2 greater than 60 3. Agree with fluid resuscitation, patient needs free water 4. Will follow up with family to find out exactly what patient mental status was a facility CCT 31 minutes. Subjective Date of service: 07/21/22 Principal diagnosis: Hypernatremia Interval history: No acute events. Objective Vital Signs - 12hr 07/20/22 07/21/22 07/21/22 23:56 00:00 01:00 Temperature 98.6 F Pulse Rate 105 H 96 H 105 H Pulse Rate [ 97 H From Monitor] Respiratory 12 18 Rate Blood Pressure 111/61 97/51 97/51 O2 Sat by Pulse 99 98 99 Oximetry 07/21/22 07/21/22 07/21/22 02:00 03:00 03:51 Temperature 98.6 F Pulse Rate 112 H 112 H Pulse Rate [ From Monitor] Respiratory 12 14 Rate Blood Pressure 106/73 118/80 O2 Sat by Pulse 99 99 Oximetry 07/21/22 07/21/22 07/21/22 04:00 04:36 05:00 Temperature 98.6 F Pulse Rate 118 H 107 H 113 H Pulse Rate [ 97 H From Monitor] Respiratory 14 12 Rate Blood Pressure 110/65 110/65 121/71 O2 Sat by Pulse 96 99 99 Oximetry 07/21/22 07/21/22 07/21/22 06:00 07:00 07:55 Temperature 98.6 F Pulse Rate 109 H 101 H Pulse Rate [ From Monitor] Respiratory 10 L 11 L Rate Blood Pressure 104/66 96/54 O2 Sat by Pulse 93 95 Oximetry 07/21/22 07/21/22 08:00 09:00 Temperature Pulse Rate 112 H 112 H Pulse Rate [ From Monitor] Respiratory 16 14 Rate Blood Pressure 95/52 95/52 O2 Sat by Pulse 95 98 Oximetry Constitutional: comatose ENT: other (orally intubated) Neck: supple Effort: normal Ascultation: Bilateral: clear Percussion: Bilateral: not dull Cardiovascular: regular rate and rhythm Gastrointestinal: normoactive bowel sounds, soft Extremities: no cyanosis, no edema Neurologic: unable to assess CBC and BMP: 07/21/22 04:00 07/21/22 04:00 ABG, PT/INR, D-dimer: ABG ABG pH 7.503 pH Units (7.350-7.450) H 07/20/22 05:30 ABG pCO2 42.7 mm Hg 07/20/22 05:30 ABG pO2 99.1 mm Hg (80.0-90.0) H 07/20/22 05:30 ABG O2 Saturation 97.8 % (95.0-99.0) 07/20/22 05:30 PT/INR, D-dimer PT 15.0 Sec. (12.2-14.9) H 07/07/22 03:38 INR 1.06 (0.87-1.13) 07/07/22 03:38 D-Dimer 925.80 ng/mlDDU (0-234) H 07/12/22 04:00 Abnormal lab findings: Abnormal Labs 07/07/22 07/07/22 07/07/22 03:17 03:38 03:38 WBC RBC 5.43 H Hgb 18.2 H Hct 54.9 H MCV 101 H MCH 34 H RDW Plt Count 104 L Seg Neutrophils % Seg Neutrophils # PT 15.0 H APTT 23.0 L D-Dimer ABG pH ABG pO2 ABG HCO3 ABG O2 Saturation ABG Base Excess ABG Hemoglobin Oxyhemoglobin Sodium Potassium Chloride Carbon Dioxide BUN Creatinine Glucose POC Glucose Lactic Acid Uric Acid Calcium Magnesium Ferritin Total Bilirubin AST Lactate Dehydrogenase Total Creatine Kinase C-Reactive Protein Total Protein Albumin TSH Free T3 Index Urine WBC (Auto) 7.0 H Urine Creatinine Salicylates Acetaminophen Valproic Acid SARS-CoV-2 (PCR) 07/07/22 07/07/22 07/07/22 03:38 03:38 03:38 WBC RBC Hgb Hct MCV MCH RDW Plt Count Seg Neutrophils % Seg Neutrophils # PT APTT D-Dimer ABG pH ABG pO2 ABG HCO3 ABG O2 Saturation ABG Base Excess ABG Hemoglobin Oxyhemoglobin Sodium Potassium Chloride Carbon Dioxide BUN Creatinine Glucose POC Glucose Lactic Acid Uric Acid Calcium Magnesium 3.30 H Ferritin Total Bilirubin AST Lactate Dehydrogenase Total Creatine Kinase 1826 H C-Reactive Protein Total Protein Albumin TSH Free T3 Index Urine WBC (Auto) Urine Creatinine Salicylates < 0.3 L Acetaminophen 5.0 L Valproic Acid 7.0 L SARS-CoV-2 (PCR) 07/07/22 07/07/22 07/07/22 04:17 04:17 04:17 WBC RBC Hgb Hct MCV MCH RDW Plt Count Seg Neutrophils % Seg Neutrophils # PT APTT D-Dimer ABG pH ABG pO2 ABG HCO3 ABG O2 Saturation ABG Base Excess ABG Hemoglobin Oxyhemoglobin Sodium 168 H* Potassium 3.2 L Chloride 122.2 H Carbon Dioxide BUN 52 H Creatinine Glucose 158 H POC Glucose Lactic Acid 3.50 H* Uric Acid Calcium 10.9 H Magnesium Ferritin Total Bilirubin 1.40 H AST 47 H Lactate Dehydrogenase Total Creatine Kinase C-Reactive Protein Total Protein Albumin TSH 12.790 H Free T3 Index Urine WBC (Auto) Urine Creatinine Salicylates Acetaminophen Valproic Acid SARS-CoV-2 (PCR) 07/07/22 07/07/22 07/07/22 04:17 07:43 09:35 WBC RBC Hgb Hct MCV MCH RDW Plt Count Seg Neutrophils % Seg Neutrophils # PT APTT D-Dimer ABG pH ABG pO2 377.3 H ABG HCO3 ABG O2 Saturation 99.6 H ABG Base Excess -2.5 L ABG Hemoglobin Oxyhemoglobin Sodium Potassium Chloride Carbon Dioxide BUN Creatinine Glucose POC Glucose Lactic Acid 6.30 H* Uric Acid 13.5 H Calcium Magnesium Ferritin Total Bilirubin AST Lactate Dehydrogenase Total Creatine Kinase C-Reactive Protein Total Protein Albumin TSH Free T3 Index Urine WBC (Auto) Urine Creatinine Salicylates Acetaminophen Valproic Acid SARS-CoV-2 (PCR) 07/07/22 07/07/22 07/07/22 15:00 16:00 16:00 WBC RBC Hgb Hct MCV MCH RDW Plt Count Seg Neutrophils % Seg Neutrophils # PT APTT D-Dimer ABG pH ABG pO2 ABG HCO3 ABG O2 Saturation ABG Base Excess ABG Hemoglobin Oxyhemoglobin Sodium 166 H* Potassium Chloride 124.8 H Carbon Dioxide 20 L BUN 41 H Creatinine Glucose 157 H POC Glucose Lactic Acid 7.00 H* Uric Acid Calcium Magnesium Ferritin Total Bilirubin AST 81 H Lactate Dehydrogenase Total Creatine Kinase C-Reactive Protein Total Protein Albumin TSH Free T3 Index Urine WBC (Auto) Urine Creatinine Salicylates Acetaminophen Valproic Acid SARS-CoV-2 (PCR) Positive A 07/07/22 07/07/22 07/07/22 16:45 23:42 23:42 WBC RBC Hgb Hct MCV MCH RDW Plt Count Seg Neutrophils % Seg Neutrophils # PT APTT D-Dimer ABG pH ABG pO2 ABG HCO3 ABG O2 Saturation ABG Base Excess ABG Hemoglobin Oxyhemoglobin Sodium 165 H* Potassium 3.0 L Chloride 122.8 H Carbon Dioxide BUN 38 H Creatinine Glucose 232 H POC Glucose Lactic Acid 5.60 H* Uric Acid Calcium Magnesium Ferritin Total Bilirubin AST Lactate Dehydrogenase Total Creatine Kinase C-Reactive Protein Total Protein Albumin TSH Free T3 Index Urine WBC (Auto) Urine Creatinine 92.9 H Salicylates Acetaminophen Valproic Acid SARS-CoV-2 (PCR) 07/07/22 07/07/22 07/08/22 Unknown Unknown 05:30 WBC RBC Hgb Hct MCV MCH RDW Plt Count Seg Neutrophils % Seg Neutrophils # PT APTT D-Dimer ABG pH 7.553 H 7.473 H ABG pO2 61.7 L 121.7 H ABG HCO3 ABG O2 Saturation 94.7 L ABG Base Excess 4.3 H ABG Hemoglobin 18.0 H Oxyhemoglobin 93.1 L Sodium 163 H* Potassium 6.3 H* D Chloride 123.7 H Carbon Dioxide BUN 42 H Creatinine Glucose 169 H POC Glucose Lactic Acid Uric Acid Calcium Magnesium Ferritin Total Bilirubin AST Lactate Dehydrogenase Total Creatine Kinase C-Reactive Protein Total Protein Albumin TSH Free T3 Index Urine WBC (Auto) Urine Creatinine Salicylates Acetaminophen Valproic Acid SARS-CoV-2 (PCR) 07/08/22 07/08/22 07/08/22 05:36 11:21 14:54 WBC 11.1 H RBC Hgb Hct MCV 101 H MCH 33 H RDW Plt Count 69 L Seg Neutrophils % 82.0 H Seg Neutrophils # 9.1 H PT APTT D-Dimer ABG pH ABG pO2 ABG HCO3 ABG O2 Saturation ABG Base Excess ABG Hemoglobin Oxyhemoglobin Sodium Potassium Chloride Carbon Dioxide BUN Creatinine Glucose POC Glucose 174 H 148 H Lactic Acid Uric Acid Calcium Magnesium Ferritin Total Bilirubin AST Lactate Dehydrogenase Total Creatine Kinase C-Reactive Protein Total Protein Albumin TSH Free T3 Index Urine WBC (Auto) Urine Creatinine Salicylates Acetaminophen Valproic Acid SARS-CoV-2 (PCR) 07/08/22 07/08/22 07/08/22 14:54 14:54 14:54 WBC RBC Hgb Hct MCV MCH RDW Plt Count Seg Neutrophils % Seg Neutrophils # PT APTT D-Dimer ABG pH ABG pO2 ABG HCO3 ABG O2 Saturation ABG Base Excess ABG Hemoglobin Oxyhemoglobin Sodium 163 H* Potassium 2.9 L* Chloride 123.7 H Carbon Dioxide BUN 30 H Creatinine Glucose 161 H POC Glucose Lactic Acid 6.10 H* Uric Acid Calcium Magnesium Ferritin Total Bilirubin AST 69 H Lactate Dehydrogenase Total Creatine Kinase 2335 H C-Reactive Protein Total Protein 5.6 L D Albumin 3.1 L TSH Free T3 Index Urine WBC (Auto) Urine Creatinine Salicylates Acetaminophen Valproic Acid SARS-CoV-2 (PCR) 07/08/22 07/08/22 07/08/22 14:54 14:54 14:54 WBC RBC Hgb Hct MCV MCH RDW Plt Count Seg Neutrophils % Seg Neutrophils # PT APTT D-Dimer 499.72 H ABG pH ABG pO2 ABG HCO3 ABG O2 Saturation ABG Base Excess ABG Hemoglobin Oxyhemoglobin Sodium Potassium Chloride Carbon Dioxide BUN Creatinine Glucose POC Glucose Lactic Acid Uric Acid Calcium Magnesium Ferritin 722.1 H Total Bilirubin AST Lactate Dehydrogenase 455 H Total Creatine Kinase C-Reactive Protein 1.60 H Total Protein Albumin TSH Free T3 Index Urine WBC (Auto) Urine Creatinine Salicylates Acetaminophen Valproic Acid SARS-CoV-2 (PCR) 07/08/22 07/08/22 07/09/22 19:13 19:53 00:09 WBC RBC Hgb Hct MCV MCH RDW Plt Count Seg Neutrophils % Seg Neutrophils # PT APTT D-Dimer ABG pH ABG pO2 ABG HCO3 ABG O2 Saturation ABG Base Excess ABG Hemoglobin Oxyhemoglobin Sodium 160 H Potassium 3.5 L D Chloride 122.0 H Carbon Dioxide 20 L BUN 28 H Creatinine Glucose 151 H POC Glucose 138 H Lactic Acid 5.70 H* Uric Acid Calcium Magnesium Ferritin Total Bilirubin AST Lactate Dehydrogenase Total Creatine Kinase C-Reactive Protein Total Protein Albumin TSH Free T3 Index Urine WBC (Auto) Urine Creatinine Salicylates Acetaminophen Valproic Acid SARS-CoV-2 (PCR) 07/09/22 07/09/22 07/09/22 00:45 03:21 03:21 WBC RBC Hgb Hct MCV MCH RDW Plt Count Seg Neutrophils % Seg Neutrophils # PT APTT D-Dimer ABG pH ABG pO2 ABG HCO3 ABG O2 Saturation ABG Base Excess ABG Hemoglobin Oxyhemoglobin Sodium 158 H 157 H Potassium Chloride 124.2 H 125.0 H Carbon Dioxide 20 L 20 L BUN 25 H 24 H Creatinine Glucose 147 H 169 H POC Glucose Lactic Acid 4.70 H* Uric Acid Calcium Magnesium Ferritin Total Bilirubin AST 81 H Lactate Dehydrogenase Total Creatine Kinase C-Reactive Protein Total Protein 5.7 L Albumin 2.8 L TSH Free T3 Index Urine WBC (Auto) Urine Creatinine Salicylates Acetaminophen Valproic Acid SARS-CoV-2 (PCR) 07/09/22 07/09/22 07/09/22 04:40 05:35 08:14 WBC RBC Hgb Hct MCV 102 H MCH 33 H RDW Plt Count 74 L Seg Neutrophils % Seg Neutrophils # PT APTT D-Dimer ABG pH ABG pO2 172.1 H ABG HCO3 ABG O2 Saturation 99.1 H ABG Base Excess -2.8 L ABG Hemoglobin Oxyhemoglobin Sodium Potassium Chloride Carbon Dioxide BUN Creatinine Glucose POC Glucose 108 H Lactic Acid Uric Acid Calcium Magnesium Ferritin Total Bilirubin AST Lactate Dehydrogenase Total Creatine Kinase C-Reactive Protein Total Protein Albumin TSH Free T3 Index Urine WBC (Auto) Urine Creatinine Salicylates Acetaminophen Valproic Acid SARS-CoV-2 (PCR) 07/09/22 07/09/22 07/09/22 11:16 11:27 16:20 WBC RBC Hgb Hct MCV MCH RDW Plt Count Seg Neutrophils % Seg Neutrophils # PT APTT D-Dimer ABG pH ABG pO2 ABG HCO3 ABG O2 Saturation ABG Base Excess ABG Hemoglobin Oxyhemoglobin Sodium 155 H Potassium Chloride 121.3 H Carbon Dioxide BUN 21 H Creatinine Glucose 170 H POC Glucose 173 H 190 H Lactic Acid Uric Acid Calcium Magnesium Ferritin Total Bilirubin AST Lactate Dehydrogenase Total Creatine Kinase C-Reactive Protein Total Protein Albumin TSH Free T3 Index Urine WBC (Auto) Urine Creatinine Salicylates Acetaminophen Valproic Acid SARS-CoV-2 (PCR) 07/09/22 07/10/22 07/10/22 17:16 00:04 04:21 WBC RBC Hgb Hct MCV MCH RDW Plt Count Seg Neutrophils % Seg Neutrophils # PT APTT D-Dimer ABG pH ABG pO2 ABG HCO3 ABG O2 Saturation ABG Base Excess ABG Hemoglobin Oxyhemoglobin Sodium 149 H 150 H Potassium Chloride 115.6 H 115.0 H Carbon Dioxide BUN 18 H Creatinine 0.5 L Glucose 207 H 178 H POC Glucose 180 H Lactic Acid Uric Acid Calcium 7.9 L Magnesium Ferritin Total Bilirubin AST 89 H Lactate Dehydrogenase 431 H Total Creatine Kinase C-Reactive Protein Total Protein 4.9 L Albumin 2.5 L TSH Free T3 Index Urine WBC (Auto) Urine Creatinine Salicylates Acetaminophen Valproic Acid SARS-CoV-2 (PCR) 07/10/22 07/10/22 07/10/22 04:21 04:21 04:21 WBC 11.8 H RBC 3.52 L Hgb Hct MCV 99 H MCH 33 H RDW Plt Count 67 L Seg Neutrophils % Seg Neutrophils # PT APTT D-Dimer 585.71 H ABG pH ABG pO2 ABG HCO3 ABG O2 Saturation ABG Base Excess ABG Hemoglobin Oxyhemoglobin Sodium Potassium Chloride Carbon Dioxide BUN Creatinine Glucose POC Glucose Lactic Acid Uric Acid Calcium Magnesium Ferritin 631.3 H Total Bilirubin AST Lactate Dehydrogenase Total Creatine Kinase C-Reactive Protein Total Protein Albumin TSH Free T3 Index Urine WBC (Auto) Urine Creatinine Salicylates Acetaminophen Valproic Acid SARS-CoV-2 (PCR) 07/10/22 07/10/22 07/10/22 04:21 04:55 05:26 WBC RBC Hgb Hct MCV MCH RDW Plt Count Seg Neutrophils % Seg Neutrophils # PT APTT D-Dimer ABG pH ABG pO2 76.8 L ABG HCO3 ABG O2 Saturation ABG Base Excess ABG Hemoglobin 10.4 L Oxyhemoglobin 94.5 L Sodium Potassium Chloride Carbon Dioxide BUN Creatinine Glucose POC Glucose 147 H Lactic Acid 2.50 H* Uric Acid Calcium Magnesium Ferritin Total Bilirubin AST Lactate Dehydrogenase Total Creatine Kinase C-Reactive Protein Total Protein Albumin TSH Free T3 Index Urine WBC (Auto) Urine Creatinine Salicylates Acetaminophen Valproic Acid SARS-CoV-2 (PCR) 07/10/22 07/10/22 07/10/22 08:24 11:31 12:53 WBC RBC Hgb Hct MCV MCH RDW Plt Count Seg Neutrophils % Seg Neutrophils # PT APTT D-Dimer ABG pH ABG pO2 ABG HCO3 ABG O2 Saturation ABG Base Excess ABG Hemoglobin Oxyhemoglobin Sodium Potassium Chloride 110.9 H Carbon Dioxide BUN Creatinine 0.5 L Glucose 200 H POC Glucose 166 H Lactic Acid 2.10 H* Uric Acid Calcium 8.3 L Magnesium Ferritin Total Bilirubin AST Lactate Dehydrogenase Total Creatine Kinase C-Reactive Protein Total Protein Albumin TSH Free T3 Index Urine WBC (Auto) Urine Creatinine Salicylates Acetaminophen Valproic Acid SARS-CoV-2 (PCR) 07/10/22 07/10/22 07/10/22 17:37 18:53 23:30 WBC RBC Hgb Hct MCV MCH RDW Plt Count Seg Neutrophils % Seg Neutrophils # PT APTT D-Dimer ABG pH ABG pO2 ABG HCO3 ABG O2 Saturation ABG Base Excess ABG Hemoglobin Oxyhemoglobin Sodium Potassium Chloride 109.5 H 110.2 H Carbon Dioxide BUN Creatinine 0.5 L 0.5 L Glucose 243 H 208 H POC Glucose 237 H Lactic Acid Uric Acid Calcium 8.1 L 8.1 L Magnesium Ferritin Total Bilirubin AST Lactate Dehydrogenase Total Creatine Kinase C-Reactive Protein Total Protein Albumin TSH Free T3 Index Urine WBC (Auto) Urine Creatinine Salicylates Acetaminophen Valproic Acid SARS-CoV-2 (PCR) 07/10/22 07/11/22 07/11/22 23:57 04:00 04:15 WBC 11.2 H RBC Hgb Hct MCV 99 H MCH RDW Plt Count 73 L Seg Neutrophils % Seg Neutrophils # PT APTT D-Dimer ABG pH ABG pO2 107.4 H ABG HCO3 ABG O2 Saturation ABG Base Excess ABG Hemoglobin Oxyhemoglobin Sodium Potassium Chloride Carbon Dioxide BUN Creatinine Glucose POC Glucose 195 H Lactic Acid Uric Acid Calcium Magnesium Ferritin Total Bilirubin AST Lactate Dehydrogenase Total Creatine Kinase C-Reactive Protein Total Protein Albumin TSH Free T3 Index Urine WBC (Auto) Urine Creatinine Salicylates Acetaminophen Valproic Acid SARS-CoV-2 (PCR) 07/11/22 07/11/22 07/11/22 05:40 05:40 06:06 WBC RBC Hgb Hct MCV MCH RDW Plt Count Seg Neutrophils % Seg Neutrophils # PT APTT D-Dimer ABG pH ABG pO2 ABG HCO3 ABG O2 Saturation ABG Base Excess ABG Hemoglobin Oxyhemoglobin Sodium Potassium Chloride 109.8 H Carbon Dioxide BUN Creatinine 0.5 L Glucose 160 H POC Glucose 145 H Lactic Acid Uric Acid Calcium 8.3 L Magnesium Ferritin Total Bilirubin AST Lactate Dehydrogenase Total Creatine Kinase 1745 H C-Reactive Protein Total Protein Albumin TSH Free T3 Index Urine WBC (Auto) Urine Creatinine Salicylates Acetaminophen Valproic Acid SARS-CoV-2 (PCR) 07/11/22 07/11/22 07/11/22 11:55 11:59 17:44 WBC RBC Hgb Hct MCV MCH RDW Plt Count Seg Neutrophils % Seg Neutrophils # PT APTT D-Dimer ABG pH ABG pO2 ABG HCO3 ABG O2 Saturation ABG Base Excess ABG Hemoglobin Oxyhemoglobin Sodium Potassium Chloride 107.8 H Carbon Dioxide BUN Creatinine 0.5 L Glucose 150 H POC Glucose 150 H 182 H Lactic Acid Uric Acid Calcium 8.2 L Magnesium Ferritin Total Bilirubin AST Lactate Dehydrogenase Total Creatine Kinase C-Reactive Protein Total Protein Albumin TSH Free T3 Index Urine WBC (Auto) Urine Creatinine Salicylates Acetaminophen Valproic Acid SARS-CoV-2 (PCR) 07/11/22 07/12/22 07/12/22 17:50 00:10 00:12 WBC RBC Hgb Hct MCV MCH RDW Plt Count Seg Neutrophils % Seg Neutrophils # PT APTT D-Dimer ABG pH ABG pO2 ABG HCO3 ABG O2 Saturation ABG Base Excess ABG Hemoglobin Oxyhemoglobin Sodium Potassium Chloride 108.4 H Carbon Dioxide BUN Creatinine 0.5 L 0.4 L Glucose 191 H 163 H POC Glucose 154 H Lactic Acid Uric Acid Calcium 8.2 L 7.9 L Magnesium Ferritin Total Bilirubin AST Lactate Dehydrogenase Total Creatine Kinase C-Reactive Protein Total Protein Albumin TSH Free T3 Index Urine WBC (Auto) Urine Creatinine Salicylates Acetaminophen Valproic Acid SARS-CoV-2 (PCR) 07/12/22 07/12/22 07/12/22 04:00 04:00 04:00 WBC RBC Hgb Hct MCV MCH RDW Plt Count Seg Neutrophils % Seg Neutrophils # PT APTT D-Dimer 925.80 H ABG pH ABG pO2 ABG HCO3 ABG O2 Saturation ABG Base Excess ABG Hemoglobin Oxyhemoglobin Sodium Potassium Chloride Carbon Dioxide BUN Creatinine Glucose POC Glucose Lactic Acid Uric Acid Calcium Magnesium Ferritin 519.5 H Total Bilirubin AST Lactate Dehydrogenase 444 H Total Creatine Kinase C-Reactive Protein Total Protein Albumin TSH Free T3 Index Urine WBC (Auto) Urine Creatinine Salicylates Acetaminophen Valproic Acid SARS-CoV-2 (PCR) 07/12/22 07/12/22 07/12/22 04:00 05:00 05:03 WBC 11.7 H RBC 3.33 L Hgb Hct MCV 99 H MCH 33 H RDW Plt Count 68 L Seg Neutrophils % Seg Neutrophils # PT APTT D-Dimer ABG pH 7.453 H ABG pO2 107.9 H ABG HCO3 27.9 H ABG O2 Saturation ABG Base Excess 3.7 H ABG Hemoglobin 10.9 L Oxyhemoglobin Sodium Potassium Chloride Carbon Dioxide BUN Creatinine Glucose POC Glucose 174 H Lactic Acid Uric Acid Calcium Magnesium Ferritin Total Bilirubin AST Lactate Dehydrogenase Total Creatine Kinase C-Reactive Protein Total Protein Albumin TSH Free T3 Index Urine WBC (Auto) Urine Creatinine Salicylates Acetaminophen Valproic Acid SARS-CoV-2 (PCR) 07/12/22 07/12/22 07/12/22 12:15 17:18 23:14 WBC RBC Hgb Hct MCV MCH RDW Plt Count Seg Neutrophils % Seg Neutrophils # PT APTT D-Dimer ABG pH ABG pO2 ABG HCO3 ABG O2 Saturation ABG Base Excess ABG Hemoglobin Oxyhemoglobin Sodium Potassium Chloride Carbon Dioxide BUN Creatinine Glucose POC Glucose 154 H 154 H 167 H Lactic Acid Uric Acid Calcium Magnesium Ferritin Total Bilirubin AST Lactate Dehydrogenase Total Creatine Kinase C-Reactive Protein Total Protein Albumin TSH Free T3 Index Urine WBC (Auto) Urine Creatinine Salicylates Acetaminophen Valproic Acid SARS-CoV-2 (PCR) 07/13/22 07/13/22 07/13/22 04:00 04:10 05:14 WBC RBC 3.17 L Hgb Hct MCV 98 H MCH 34 H RDW Plt Count 75 L Seg Neutrophils % Seg Neutrophils # PT APTT D-Dimer ABG pH ABG pO2 ABG HCO3 ABG O2 Saturation ABG Base Excess ABG Hemoglobin Oxyhemoglobin Sodium Potassium Chloride Carbon Dioxide BUN Creatinine 0.4 L Glucose 136 H POC Glucose 140 H Lactic Acid Uric Acid Calcium Magnesium Ferritin Total Bilirubin AST Lactate Dehydrogenase Total Creatine Kinase C-Reactive Protein Total Protein Albumin TSH Free T3 Index Urine WBC (Auto) Urine Creatinine Salicylates Acetaminophen Valproic Acid SARS-CoV-2 (PCR) 07/13/22 07/13/22 07/13/22 12:03 14:25 17:19 WBC RBC Hgb Hct MCV MCH RDW Plt Count Seg Neutrophils % Seg Neutrophils # PT APTT D-Dimer ABG pH 7.478 H ABG pO2 118.1 H ABG HCO3 28.2 H ABG O2 Saturation ABG Base Excess 4.5 H ABG Hemoglobin Oxyhemoglobin Sodium Potassium Chloride Carbon Dioxide BUN Creatinine Glucose POC Glucose 193 H 189 H Lactic Acid Uric Acid Calcium Magnesium Ferritin Total Bilirubin AST Lactate Dehydrogenase Total Creatine Kinase C-Reactive Protein Total Protein Albumin TSH Free T3 Index Urine WBC (Auto) Urine Creatinine Salicylates Acetaminophen Valproic Acid SARS-CoV-2 (PCR) 07/13/22 07/13/22 07/14/22 23:52 Unknown 06:18 WBC RBC Hgb Hct MCV MCH RDW Plt Count Seg Neutrophils % Seg Neutrophils # PT APTT D-Dimer ABG pH 7.465 H ABG pO2 128.8 H ABG HCO3 29.0 H ABG O2 Saturation ABG Base Excess 4.9 H ABG Hemoglobin 10.3 L Oxyhemoglobin Sodium Potassium Chloride Carbon Dioxide BUN Creatinine Glucose POC Glucose 174 H 167 H Lactic Acid Uric Acid Calcium Magnesium Ferritin Total Bilirubin AST Lactate Dehydrogenase Total Creatine Kinase C-Reactive Protein Total Protein Albumin TSH Free T3 Index Urine WBC (Auto) Urine Creatinine Salicylates Acetaminophen Valproic Acid SARS-CoV-2 (PCR) 07/14/22 07/14/22 07/15/22 11:34 17:20 00:25 WBC RBC Hgb Hct MCV MCH RDW Plt Count Seg Neutrophils % Seg Neutrophils # PT APTT D-Dimer ABG pH ABG pO2 ABG HCO3 ABG O2 Saturation ABG Base Excess ABG Hemoglobin Oxyhemoglobin Sodium Potassium Chloride Carbon Dioxide BUN Creatinine Glucose POC Glucose 187 H 221 H 172 H Lactic Acid Uric Acid Calcium Magnesium Ferritin Total Bilirubin AST Lactate Dehydrogenase Total Creatine Kinase C-Reactive Protein Total Protein Albumin TSH Free T3 Index Urine WBC (Auto) Urine Creatinine Salicylates Acetaminophen Valproic Acid SARS-CoV-2 (PCR) 07/15/22 07/15/22 07/15/22 04:00 04:00 05:49 WBC 11.4 H RBC 3.13 L Hgb Hct MCV 98 H MCH 33 H RDW Plt Count 98 L Seg Neutrophils % Seg Neutrophils # PT APTT D-Dimer ABG pH ABG pO2 ABG HCO3 ABG O2 Saturation ABG Base Excess ABG Hemoglobin Oxyhemoglobin Sodium Potassium Chloride Carbon Dioxide 34 H BUN Creatinine 0.4 L Glucose 126 H POC Glucose 143 H Lactic Acid Uric Acid Calcium Magnesium Ferritin Total Bilirubin AST Lactate Dehydrogenase Total Creatine Kinase C-Reactive Protein Total Protein Albumin TSH Free T3 Index Urine WBC (Auto) Urine Creatinine Salicylates Acetaminophen Valproic Acid SARS-CoV-2 (PCR) 07/15/22 07/15/22 07/16/22 11:19 16:16 00:19 WBC RBC Hgb Hct MCV MCH RDW Plt Count Seg Neutrophils % Seg Neutrophils # PT APTT D-Dimer ABG pH ABG pO2 ABG HCO3 ABG O2 Saturation ABG Base Excess ABG Hemoglobin Oxyhemoglobin Sodium Potassium Chloride Carbon Dioxide BUN Creatinine Glucose POC Glucose 158 H 227 H 153 H Lactic Acid Uric Acid Calcium Magnesium Ferritin Total Bilirubin AST Lactate Dehydrogenase Total Creatine Kinase C-Reactive Protein Total Protein Albumin TSH Free T3 Index Urine WBC (Auto) Urine Creatinine Salicylates Acetaminophen Valproic Acid SARS-CoV-2 (PCR) 07/16/22 07/16/22 07/16/22 04:20 04:20 11:28 WBC RBC 3.16 L Hgb Hct MCV 99 H MCH 33 H RDW Plt Count 101 L Seg Neutrophils % Seg Neutrophils # PT APTT D-Dimer ABG pH ABG pO2 ABG HCO3 ABG O2 Saturation ABG Base Excess ABG Hemoglobin Oxyhemoglobin Sodium Potassium Chloride Carbon Dioxide 36 H BUN 18 H Creatinine 0.4 L Glucose 139 H POC Glucose 158 H Lactic Acid Uric Acid Calcium Magnesium Ferritin Total Bilirubin AST Lactate Dehydrogenase Total Creatine Kinase C-Reactive Protein Total Protein Albumin TSH Free T3 Index Urine WBC (Auto) Urine Creatinine Salicylates Acetaminophen Valproic Acid SARS-CoV-2 (PCR) 07/16/22 07/17/22 07/17/22 16:30 00:07 05:46 WBC RBC Hgb Hct MCV MCH RDW Plt Count Seg Neutrophils % Seg Neutrophils # PT APTT D-Dimer ABG pH ABG pO2 ABG HCO3 ABG O2 Saturation ABG Base Excess ABG Hemoglobin Oxyhemoglobin Sodium Potassium Chloride Carbon Dioxide BUN Creatinine Glucose POC Glucose 201 H 139 H 123 H Lactic Acid Uric Acid Calcium Magnesium Ferritin Total Bilirubin AST Lactate Dehydrogenase Total Creatine Kinase C-Reactive Protein Total Protein Albumin TSH Free T3 Index Urine WBC (Auto) Urine Creatinine Salicylates Acetaminophen Valproic Acid SARS-CoV-2 (PCR) 07/17/22 07/17/22 07/17/22 13:30 17:51 23:49 WBC RBC Hgb Hct MCV MCH RDW Plt Count Seg Neutrophils % Seg Neutrophils # PT APTT D-Dimer ABG pH ABG pO2 ABG HCO3 ABG O2 Saturation ABG Base Excess ABG Hemoglobin Oxyhemoglobin Sodium Potassium Chloride Carbon Dioxide BUN Creatinine Glucose POC Glucose 185 H 219 H 133 H Lactic Acid Uric Acid Calcium Magnesium Ferritin Total Bilirubin AST Lactate Dehydrogenase Total Creatine Kinase C-Reactive Protein Total Protein Albumin TSH Free T3 Index Urine WBC (Auto) Urine Creatinine Salicylates Acetaminophen Valproic Acid SARS-CoV-2 (PCR) 07/18/22 07/18/22 07/18/22 04:00 04:00 04:00 WBC 12.2 H RBC 3.34 L Hgb Hct MCV 100 H MCH 33 H RDW Plt Count 113 L Seg Neutrophils % 77.3 H Seg Neutrophils # 9.4 H PT APTT D-Dimer ABG pH 7.508 H ABG pO2 115.9 H ABG HCO3 33.4 H ABG O2 Saturation ABG Base Excess 9.4 H ABG Hemoglobin 11.7 L Oxyhemoglobin Sodium Potassium Chloride Carbon Dioxide 35 H BUN Creatinine 0.4 L Glucose 130 H POC Glucose Lactic Acid Uric Acid Calcium Magnesium Ferritin Total Bilirubin AST Lactate Dehydrogenase Total Creatine Kinase C-Reactive Protein Total Protein Albumin TSH Free T3 Index Urine WBC (Auto) Urine Creatinine Salicylates Acetaminophen Valproic Acid SARS-CoV-2 (PCR) 07/18/22 07/18/22 07/18/22 04:42 12:31 12:31 WBC RBC Hgb Hct MCV MCH RDW Plt Count Seg Neutrophils % Seg Neutrophils # PT APTT D-Dimer ABG pH ABG pO2 ABG HCO3 ABG O2 Saturation ABG Base Excess ABG Hemoglobin Oxyhemoglobin Sodium Potassium Chloride Carbon Dioxide BUN Creatinine Glucose POC Glucose 134 H Lactic Acid Uric Acid Calcium Magnesium Ferritin Total Bilirubin AST Lactate Dehydrogenase Total Creatine Kinase C-Reactive Protein Total Protein Albumin TSH 9.750 H Free T3 Index 1.7 L Urine WBC (Auto) Urine Creatinine Salicylates Acetaminophen Valproic Acid SARS-CoV-2 (PCR) 07/18/22 07/18/22 07/19/22 12:33 17:39 00:43 WBC RBC Hgb Hct MCV MCH RDW Plt Count Seg Neutrophils % Seg Neutrophils # PT APTT D-Dimer ABG pH ABG pO2 ABG HCO3 ABG O2 Saturation ABG Base Excess ABG Hemoglobin Oxyhemoglobin Sodium Potassium Chloride Carbon Dioxide BUN Creatinine Glucose POC Glucose 172 H 164 H 132 H Lactic Acid Uric Acid Calcium Magnesium Ferritin Total Bilirubin AST Lactate Dehydrogenase Total Creatine Kinase C-Reactive Protein Total Protein Albumin TSH Free T3 Index Urine WBC (Auto) Urine Creatinine Salicylates Acetaminophen Valproic Acid SARS-CoV-2 (PCR) 07/19/22 07/19/22 07/19/22 05:08 12:30 17:42 WBC RBC Hgb Hct MCV MCH RDW Plt Count Seg Neutrophils % Seg Neutrophils # PT APTT D-Dimer ABG pH ABG pO2 ABG HCO3 ABG O2 Saturation ABG Base Excess ABG Hemoglobin Oxyhemoglobin Sodium Potassium Chloride Carbon Dioxide BUN Creatinine Glucose POC Glucose 143 H 159 H 139 H Lactic Acid Uric Acid Calcium Magnesium Ferritin Total Bilirubin AST Lactate Dehydrogenase Total Creatine Kinase C-Reactive Protein Total Protein Albumin TSH Free T3 Index Urine WBC (Auto) Urine Creatinine Salicylates Acetaminophen Valproic Acid SARS-CoV-2 (PCR) 07/19/22 07/20/22 07/20/22 23:26 05:30 06:03 WBC RBC Hgb Hct MCV MCH RDW Plt Count Seg Neutrophils % Seg Neutrophils # PT APTT D-Dimer ABG pH 7.503 H ABG pO2 99.1 H ABG HCO3 32.8 H ABG O2 Saturation ABG Base Excess 8.8 H ABG Hemoglobin 9.7 L Oxyhemoglobin Sodium Potassium Chloride Carbon Dioxide BUN Creatinine Glucose POC Glucose 144 H 146 H Lactic Acid Uric Acid Calcium Magnesium Ferritin Total Bilirubin AST Lactate Dehydrogenase Total Creatine Kinase C-Reactive Protein Total Protein Albumin TSH Free T3 Index Urine WBC (Auto) Urine Creatinine Salicylates Acetaminophen Valproic Acid SARS-CoV-2 (PCR) 07/20/22 07/20/22 07/20/22 12:15 17:24 23:44 WBC RBC Hgb Hct MCV MCH RDW Plt Count Seg Neutrophils % Seg Neutrophils # PT APTT D-Dimer ABG pH ABG pO2 ABG HCO3 ABG O2 Saturation ABG Base Excess ABG Hemoglobin Oxyhemoglobin Sodium Potassium Chloride Carbon Dioxide BUN Creatinine Glucose POC Glucose 138 H 135 H 131 H Lactic Acid Uric Acid Calcium Magnesium Ferritin Total Bilirubin AST Lactate Dehydrogenase Total Creatine Kinase C-Reactive Protein Total Protein Albumin TSH Free T3 Index Urine WBC (Auto) Urine Creatinine Salicylates Acetaminophen Valproic Acid SARS-CoV-2 (PCR) 07/21/22 07/21/22 07/21/22 04:00 04:00 05:13 WBC RBC 2.92 L Hgb 9.6 L Hct 29.0 L MCV 99 H MCH 33 H RDW 15.6 H Plt Count 136 L Seg Neutrophils % Seg Neutrophils # PT APTT D-Dimer ABG pH ABG pO2 ABG HCO3 ABG O2 Saturation ABG Base Excess ABG Hemoglobin Oxyhemoglobin Sodium Potassium Chloride Carbon Dioxide 32 H BUN Creatinine 0.3 L Glucose 133 H POC Glucose 142 H Lactic Acid Uric Acid Calcium 8.3 L Magnesium Ferritin Total Bilirubin AST Lactate Dehydrogenase Total Creatine Kinase C-Reactive Protein Total Protein Albumin TSH Free T3 Index Urine WBC (Auto) Urine Creatinine Salicylates Acetaminophen Valproic Acid SARS-CoV-2 (PCR) 07/21/22 06:16 WBC RBC Hgb Hct MCV MCH RDW Plt Count Seg Neutrophils % Seg Neutrophils # PT APTT D-Dimer ABG pH ABG pO2 ABG HCO3 ABG O2 Saturation ABG Base Excess ABG Hemoglobin Oxyhemoglobin Sodium Potassium Chloride Carbon Dioxide BUN Creatinine Glucose POC Glucose 149 H Lactic Acid Uric Acid Calcium Magnesium Ferritin Total Bilirubin AST Lactate Dehydrogenase Total Creatine Kinase C-Reactive Protein Total Protein Albumin TSH Free T3 Index Urine WBC (Auto) Urine Creatinine Salicylates Acetaminophen Valproic Acid SARS-CoV-2 (PCR)
--- NOTE | 2022-07-21 11:38 | Progress Note ---
<CHUY MARTINEZ - Last Filed: 07/21/22 11:36> History Interval history: This is a 76-year-old female with CVA resulting hemiplegia, dysphagia, aphasia, dementia, pulm embolism without acute cor pulmonale, hypothyroidism and JUJU who presented to the hospital on 07/07 from her [facility] for altered mental status and diminished cognition and possible hypoxia via EMS. In the emergency department patient was intubated due to concern for airway protection. Recommend emergency department showed leukocytosis, hyponatremia with a sodium of 168, hypercalcemia, hypomagnesemia, elevated CK. Patient was admitted to the hospitalist service with acute hypoxic respiratory failure, COVID-19 PUI, hypernatremia, transaminitis, rhabdomyolysis with consults to CCM and nephrology: Hospital course to date: 07/08: Patient noted to be COVID-positive, started on remdesivir, Decadron, ceftriaxone azithromycin and infectious disease was consulted yesterday. This morning patient is on any sedation, PICC line to be placed. RT to attempt PSV. Started on free water flushes and tube feedings. Continues on D5 half-normal saline. 07/09: Patient remains encephalopathic, not on any sedation. Hypernatremia is improving, on FWF Q4hrs and D5w gtt per Nephro. If hypernatremia continue to improve and patient's mentation is unchanged, will get a repeat CT to r/o intracranial abnormalities. Patient remains afebrile, leukocytosis improved, and VSS. Continue current IV abx per ID. Patient failed PSV trial again today, continue PSV trial as tolerated 07/10: Remains stable on the vent, tolerating PSV trial this am. sodium continue to improve but no change in mental status. D/w CCM will get MRI brain to r/o any intracranial abnormalities, EEG also ordered to r/o seizures. Continue FWF and D5w gtt per Nephro. Continue IV steroids and current IV abx per ID. 07/11: Hypernatremia resolved, mentation is unchanged, remains on low vent setting. EEG noted, and MRI brain pending. Will consult Neurology for further recommendations. Continue daily PSV trial as tolerated. 07/12: Appears more awake this morning but still not following any commands. MRI brain with no acute findings and sodium normalized. Awaiting Neuro consult. Continue daily PSV trial as tolerated. Patient's daughter was updated via phone, all questions and concerns were addressed at this time. Medical records requested from [facility] and [facility]. 07/13: DELMI overnight. Mentation is unchanged, remains stable on the vent. Neurol ogy consult pending. Continue vent adjustment per [facility] and daily PSV trial as tolerated. 07/14: Mentation is unchanged, remains afebrile and stable on the vent, VSS. Complete antibiotics course, still on IV steroids X3 more days. ID recommendations noted, remove corbin. Continue daily PSV trial as tolerated. 07/15: DELMI overnight, mentation unchanged, VSS. Patient failed PSV trial this am due to apnea. Continue daily PSV trial as tolerated. Possible trach and Peg per [facility]. 07/16: No acute events overnight, attempted PSV again today. [facility] to have family meeting on 07/17 to discuss trach/PEG 07/17: [facility] will have family meeting tomorrow. Failed PSV again. No acute events overnight. Thrombocytopenia continues to improve 07/18: [facility] held a family meeting today and surgery will be consulted for trach/PEG placement. Family stated that patient had not had her levothyroxine for several months due to decreased p.o. intake, will send thyroid panel. No acute events reported overnight. Hypotension today and 500 mL normal saline bolus given. Possible trach/peg within 2 days 07/19: No acute events reported overnight. Free T4 normal. Failed PSV 07/20: No acute events reported overnight. Patient taken off isolation per ID. Trach/PEG scheduled for Friday. failed PSV 07/21: No acute events reported overnight. Trach/peg for friday. PSV ongoing Hospitalist Physical - Constitutional Vitals: Temp Pulse Resp BP Pulse Ox 98.6 F 113 H 15 98/61 92 07/21/22 07:55 07/21/22 11:00 07/21/22 11:00 07/21/22 11:00 07/21/22 10:00 General appearance: Present: no acute distress, other (Intubated, unresponsive, not on any sedation) - EENT Eyes: Present: PERRL - Neck Neck: Absent: masses or JVD, cervical LAD - Respiratory Respiratory effort: normal Respiratory: bilateral: diminished - Cardiovascular Rhythm: regular Heart Sounds: Present: S1 & S2 - Extremities Extremities: no ischemia, pulses intact, pulses symmetrical, normal temperature, normal color Peripheral Pulses: within normal limits - Abdominal General gastrointestinal: soft, non-tender, non-distended, normal bowel sounds HEART Score - HEART Score Troponin: Troponin T 0.010 ng/mL (0.00-0.029) 07/07/22 04:17 Results - Labs CBC & Chem 7: 07/21/22 04:00 07/21/22 04:00 Labs: Laboratory Last Values WBC 7.5 K/mm3 (4.5-11.0) 07/21/22 04:00 RBC 2.92 M/mm3 (3.65-5.03) L 07/21/22 04:00 Hgb 9.6 gm/dl (10.1-14.3) L 07/21/22 04:00 Hct 29.0 % (30.3-42.9) L 07/21/22 04:00 MCV 99 fl (79-97) H 07/21/22 04:00 MCH 33 pg (28-32) H 07/21/22 04:00 MCHC 33 % (30-34) 07/21/22 04:00 RDW 15.6 % (13.2-15.2) H 07/21/22 04:00 Plt Count 136 K/mm3 (140-440) L 07/21/22 04:00 Lymph % (Auto) 19.3 % (13.4-35.0) 07/18/22 04:00 [place] % (Auto) 3.2 % (0.0-7.3) 07/18/22 04:00 Eos % (Auto) 0.1 % (0.0-4.3) 07/18/22 04:00 Baso % (Auto) 0.1 % (0.0-1.8) 07/18/22 04:00 Lymph # (Auto) 2.4 K/mm3 (1.2-5.4) 07/18/22 04:00 [place] # (Auto) 0.4 K/mm3 (0.0-0.8) 07/18/22 04:00 Eos # (Auto) 0.0 K/mm3 (0.0-0.4) 07/18/22 04:00 Baso # (Auto) 0.0 K/mm3 (0.0-0.1) 07/18/22 04:00 Seg Neutrophils % 77.3 % (40.0-70.0) H 07/18/22 04:00 Seg Neutrophils # 9.4 K/mm3 (1.8-7.7) H 07/18/22 04:00 PT 15.0 Sec. (12.2-14.9) H 07/07/22 03:38 INR 1.06 (0.87-1.13) 07/07/22 03:38 APTT 23.0 Sec. (24.2-36.6) L 07/07/22 03:38 D-Dimer 925.80 ng/mlDDU (0-234) H 07/12/22 04:00 ABG pH 7.503 pH Units (7.350-7.450) H 07/20/22 05:30 ABG pCO2 42.7 mm Hg 07/20/22 05:30 ABG pO2 99.1 mm Hg (80.0-90.0) H 07/20/22 05:30 ABG HCO3 32.8 mmol/L (20.0-26.0) H 07/20/22 05:30 ABG O2 Saturation 97.8 % (95.0-99.0) 07/20/22 05:30 ABG O2 Content 13.3 (0.0-44) 07/20/22 05:30 ABG Base Excess 8.8 mmol/L (-2.0-3.0) H 07/20/22 05:30 ABG Hemoglobin 9.7 gm/dl (12.0-16.0) L 07/20/22 05:30 ABG Carboxyhemoglobin 1.3 % (0.0-5.0) 07/20/22 05:30 ABG Methemoglobin 0.6 % (0.0-1.5) 07/20/22 05:30 Oxyhemoglobin 95.9 % (95.0-99.0) 07/20/22 05:30 FiO2 28 % 07/20/22 05:30 Sodium 137 mmol/L (137-145) 07/21/22 04:00 Potassium 3.9 mmol/L (3.6-5.0) 07/21/22 04:00 Chloride 98.0 mmol/L (98-107) 07/21/22 04:00 Carbon Dioxide 32 mmol/L (22-30) H 07/21/22 04:00 Anion Gap 11 mmol/L 07/21/22 04:00 BUN 14 mg/dL (7-17) 07/21/22 04:00 Creatinine 0.3 mg/dL (0.6-1.2) L 07/21/22 04:00 Estimated GFR > 60 ml/min 07/21/22 04:00 BUN/Creatinine Ratio 47 % 07/21/22 04:00 Glucose 133 mg/dL (65-100) H 07/21/22 04:00 POC Glucose 149 mg/dL (70-105) H 07/21/22 06:16 Lactic Acid 2.10 mmol/L (0.7-2.0) H* 07/10/22 08:24 Uric Acid 13.5 mg/dL (3.5-7.6) H 07/07/22 04:17 Calcium 8.3 mg/dL (8.4-10.2) L 07/21/22 04:00 Phosphorus 2.90 mg/dL (2.5-4.5) 07/16/22 04:20 Magnesium 1.80 mg/dL (1.7-2.3) 07/16/22 04:20 Ferritin 519.5 ng/mL (10.0-200.0) H 07/12/22 04:00 Total Bilirubin 0.30 mg/dL (0.1-1.2) 07/10/22 04:21 AST 89 units/L (5-40) H 07/10/22 04:21 ALT 53 units/L (7-56) 07/10/22 04:21 Alkaline Phosphatase 83 units/L (35-129) 07/10/22 04:21 Ammonia 32.0 umol/L (25-60) 07/07/22 04:17 Lactate Dehydrogenase 444 units/L (91-180) H 07/12/22 04:00 Total Creatine Kinase 1745 units/L (30-135) H 07/11/22 05:40 Troponin T 0.010 ng/mL (0.00-0.029) 07/07/22 04:17 C-Reactive Protein 0.30 mg/dL (0.00-1.30) 07/12/22 04:00 Total Protein 4.9 g/dL (6.3-8.2) L 07/10/22 04:21 Albumin 2.5 g/dL (3.9-5) L 07/10/22 04:21 Albumin/Globulin Ratio 1.0 % 07/10/22 04:21 Procalcitonin 0.19 ng/mL (<0.15) 07/08/22 14:54 TSH 9.750 mlU/mL (0.270-4.200) H 07/18/22 12:31 Free T4 0.78 ng/dL (0.76-1.46) 07/18/22 12:31 Thyroxine (T4) 6.2 ug/dL (4.0-12.0) 07/18/22 12: Free T3 Index 1.7 pg/mL (2.3-4.2) L 07/18/22 12:31 Total Cortisol 47.9 mcg/dL () 07/07/22 07:43 Urine Color Yellow (Yellow) 07/07/22 03:17 Urine Turbidity Slightly cloudy (Clear) 07/07/22 03:17 Specific [place] (Man) 1.015 (1.003-1.030) 07/07/22 03:17 Ur Protein (Man) 1+ mg/dL (Negative) 07/07/22 03:17 Ur Ketones (Man) Negative (Negative) 07/07/22 03:17 Ur Nitrite (Man) Negative (Negative) 07/07/22 03:17 Urine Bilirubin (Man) Negative (Negative) 07/07/22 03:17 Leukocyte Esterase (Man) Negative (Negative) 07/07/22 03:17 Urine WBC (Auto) 7.0 /HPF (0.0-6.0) H 07/07/22 03:17 Urine RBC (Auto) 1.0 /HPF (0.0-6.0) 07/07/22 03:17 U Epithel Cells (Auto) 4.0 /HPF (0-13.0) 07/07/22 03:17 Urine Bacteria (Auto) 3+ /HPF (Negative) 07/07/22 03:17 Urine RBC (Manual) 3+ (Negative) 07/07/22 03:17 Urine Mucus 3+ /HPF 07/07/22 03:17 Urine Osmolality 744 Mosm/kg 07/07/22 16:45 Urine Creatinine 92.9 mg/dL (0.1-20.0) H 07/07/22 16:45 Urine Sodium 109 mmol/L 07/07/22 16:45 Salicylates < 0.3 mg/dL (2.8-20.0) L 07/07/22 03:38 Urine Opiates Screen Presumptive negative 07/07/22 03:17 Urine Methadone Screen Presumptive negative 07/07/22 03:17 Acetaminophen 5.0 ug/mL (10.0-30.0) L 07/07/22 03:38 Ur Barbiturates Screen Presumptive negative 07/07/22 03:17 Valproic Acid 7.0 ug/mL (50-100) L 07/07/22 03:38 Ur Phencyclidine Scrn Presumptive negative 07/07/22 03:17 Ur Amphetamines Screen Presumptive negative 07/07/22 03:17 U Benzodiazepines Scrn Presumptive negative 07/07/22 03:17 Urine Cocaine Screen Presumptive negative 07/07/22 03:17 U Marijuana (THC) Screen Presumptive negative 07/07/22 03:17 Drugs of Abuse Note Disclamer 07/07/22 03:17 Plasma/Serum Alcohol < 0.01 % (0-0.07) 07/07/22 03:38 SARS-CoV-2 (PCR) Positive (Negative) A 07/07/22 15:00 Corbin/IV: Voiding Method External Female Catheter Active Medications - Current Medications Current Medications: Generic Name Dose Route Start Last Admin Trade Name Freq PRN Reason Stop Dose Admin Acetaminophen 650 mg 07/13/22 12:00 07/20/22 17:53 Acetaminophen 325 Mg/10.15 Ml Oral Liqd Unit Dose FEEDTUBE 650 mg Q6H PRN Administration Pain MILD(1-3)/Fever >100.5/LEE Atorvastatin Calcium 80 mg 07/10/22 22:00 07/20/22 22:25 Atorvastatin 40 Mg Tab FEEDTUBE 80 mg QHS ERROL Administration Cholecalciferol 1,000 unit 07/10/22 10:00 07/21/22 09:37 Cholecalciferol (Vit D3) 1000 Unit (25 Mcg) Tab FEEDTUBE 1,000 unit QDAY ERROL Administration Dextrose 50 ml 07/09/22 11:42 Dextrose 50% In Water (25gm) 50 Ml Syringe IV Q30MIN PRN Hypoglycemia Protocol Famotidine 20 mg 07/09/22 22:00 07/21/22 09:37 Famotidine 20 Mg Tab FEEDTUBE 20 mg BID ERROL Administration Heparin Sodium (Porcine) 5,000 unit 07/08/22 06:00 07/21/22 06:20 Heparin 5,000 Unit/1 Ml Vial SUB-Q 5,000 unit Q12H ERROL Administration Hydrophilic Ointment 1 applic 07/07/22 02:48 Lip Therapy Vaseline TP Q2HR PRN Dry Lips Insulin Human Lispro 0 unit 07/09/22 12:00 07/21/22 06:29 Insulin Lispro 100 Unit/Ml SUB-Q Not Given Q6HR ERROL Protocol Levothyroxine Sodium 75 mcg 07/11/22 06:00 07/21/22 06:20 Levothyroxine 75 Mcg Tab FEEDTUBE 75 mcg QAM@0600 ERROL Administration Multi-Ingred Cream/Lotion/Oil/Oint 1 applic 07/07/22 02:48 Mineral Oil/Petrolatum, White Ophth Oint 3.5 Gm OU Q4HR PRN Dry Eye(s) Senna/Docusate Sodium 1 tab 07/07/22 10:00 07/21/22 09:37 Sennosides/Docusate Sodium 8.6/50 Mg Tab FEEDTUBE 1 tab BID ERROL Administration Sodium Chloride 10 ml 07/07/22 13:00 07/21/22 09:37 Sodium Chloride 0.9% 10 Ml Flush Syringe IV 10 ml BID ERROL Administration Sodium Chloride 10 ml 07/07/22 12:09 Sodium Chloride 0.9% 10 Ml Flush Syringe IV PRN PRN LINE FLUSH Valproic Acid 250 mg 07/10/22 22:00 07/21/22 09:38 Valproic Acid 250 Mg/5 Ml Oral Liqd FEEDTUBE 250 mg Q12H ERROL Administration Nutrition/Malnutrition Assess - Dietary Evaluation Nutrition/Malnutrition Findings: Nutrition Notes Start: 07/07/22 13:24 Freq: Status: Active Protocol: Document 07/17/22 11:13 DAREN (Rec: 07/17/22 11:42 DAREN [id number]) Nutrition Notes Initial or Follow up Reassessment Current Diagnosis Respiratory Failure,Stroke Other Pertinent Diagnosis COVID-19, Metabolic Encephalopathy, Pulmonary Embolism, Dementia. Current Diet TF-Vital AF 1.2 [place] @ 50 ml/hr (from D 07/12). Labs/Tests 07/17: CO2 36, BUN 18, Crea 0. 4, Glu 139. Pertinent Medications 07/17: Vit D3, Levothyroxine, others nutritionally unremarkable. Height 5 ft 6 in Weight 95.254 kg [place] Body Weight (kg) 59.09 BMI 33.9 Weight change and time frame No body weight change reported in 11 days. Weight Status Obese Subjective/Other Information RD consult for routine F/U on TF tolerance/continuation assessment. TF continues as prescribed, and well tolerated, according to RN notes. Pt continues on Mechanical Ventilation, O2 saturation @ 100%, according to Physical Assessment History notes. Pt presents caries and has missing teeth, according to Physical Assessment History notes. Pt presents bilateral-UE Non- Pitting Edema 2+, according to Physical Assessment History notes. Pt remains incontinent, according to Physical Assessment History notes. Pt presents dysphagia, hemiplegia, and aphasia, according to Physical Assessment History notes. Tracheostomy and PEG-tube placement are being discussed with family, according to Progress notes. Pt is resident of a SNF according to Progress notes. Percent of energy/protein needs met: Prescribed TF-Vital AF 1.2 [place] @ 50 ml/hr provides for energy/protein needs (1,440 Kcal/90 g) during LOS, 101% Kcal, 91% AA. Burn Absent Trauma Absent GI Symptoms Other Difficulty In Swallowing,Chewing Food Allergy No Skin Integrity/Comment Assessment WNL. Current % PO Other Minimum of two criteria Yes Energy Intake (non-severe) <75% Estimated Energy Requirement >7 days Interpretation of Weight Loss (non- 5% in 1 month severe) Fluid Accumulation Mild (non-severe) Reduced Rehabilitation Aide Strength N/A (non-severe) Protein-Calorie Malnutrition Non-Severe #2 Nutrition Diagnosis Malnutrition Diagnosis Progress(for reassessment Continues documentation) #1 Nutrition Diagnosis Inadequate oral intake Diagnosis Progress(for reassessment Continues documentation) Is patient on ventilator? Yes Is Patient Ambulatory and/or Out of Bed No [facility] 1763.208 Kcal/Kg value to use for calculation 15 Approximate Energy Requirements Using 1429 kcal/Kg Calculation Used for Recommendations Kcal/kg Additional Notes Protein: 1.3 g/Kg AdjBW; 99 g/ day. Fluids: 1 ml/Kcal, or as per MD. Nutrition Intervention Nutrition Support: Continue TF-Vital AF 1.2 [place] @ 50 ml/hr. Flush: 75 ml water Q 4 hr, or as per MD. Kcal 1,440 Protein (gm) 90 Carbohydrates (gm) 133 Fat (gm) 65 Fluid (mL) 973 Fiber (gm) 6 % RDI: 101% Kcal; 91% AA. Goal #1 Provide at least 75% of energy /protein needs through Enteral Feeding during LOS. Goal #2 Adjust the dietary intervention to better serve Pt's needs and clinical conditions during LOS. Follow-Up By: 07/24/22 Additional Comments Continue monitoring TF tolerance, ventilation status, PEG-tube placement, and BM. <FOX DOUGLAS - Last Filed: 07/30/22 08:14> History Interval history: I saw and evaluated the patient. Discussed with the nurse practitioner and agree with their findings and plan as documented in this note. Hospitalist Physical - Constitutional Vitals: Temp Pulse Resp BP Pulse Ox 99.1 F 100 H 12 99/59 100 07/30/22 07:12 07/30/22 06:00 07/30/22 06:00 07/30/22 06:00 07/30/22 06:00 HEART Score - HEART Score Troponin: Troponin T 0.010 ng/mL (0.00-0.029) 07/07/22 04:17 Results - Labs CBC & Chem 7: 07/29/22 04:05 07/29/22 04:05 Labs: Laboratory Last Values WBC 7.7 K/mm3 (4.5-11.0) 07/29/22 04:05 RBC 2.64 M/mm3 (3.65-5.03) L 07/29/22 04:05 Hgb 8.8 gm/dl (10.1-14.3) L 07/29/22 04:05 Hct 26.6 % (30.3-42.9) L 07/29/22 04:05 MCV 101 fl (79-97) H 07/29/22 04:05 MCH 33 pg (28-32) H 07/29/22 04:05 MCHC 33 % (30-34) 07/29/22 04:05 RDW 16.4 % (13.2-15.2) H 07/29/22 04:05 Plt Count 251 K/mm3 (140-440) 07/29/22 04:05 Lymph % (Auto) 33.3 % (13.4-35.0) 07/22/22 04:13 [place] % (Auto) 10.0 % (0.0-7.3) H 07/22/22 04:13 Eos % (Auto) 0.5 % (0.0-4.3) 07/22/22 04:13 Baso % (Auto) 0.1 % (0.0-1.8) 07/22/22 04:13 Lymph # (Auto) 2.1 K/mm3 (1.2-5.4) 07/22/22 04:13 [place] # (Auto) 0.6 K/mm3 (0.0-0.8) 07/22/22 04:13 Eos # (Auto) 0.0 K/mm3 (0.0-0.4) 07/22/22 04:13 Baso # (Auto) 0.0 K/mm3 (0.0-0.1) 07/22/22 04:13 Seg Neutrophils % 56.1 % (40.0-70.0) 07/22/22 04:13 Seg Neutrophils # 3.6 K/mm3 (1.8-7.7) 07/22/22 04:13 PT 13.0 Sec. (12.2-14.9) 07/22/22 04:13 INR 0.87 (0.87-1.13) 07/22/22 04:13 APTT 23.0 Sec. (24.2-36.6) L 07/07/22 03:38 D-Dimer 925.80 ng/mlDDU (0-234) H 07/12/22 04:00 ABG pH 7.503 pH Units (7.350-7.450) H 07/20/22 05:30 ABG pCO2 42.7 mm Hg 07/20/22 05:30 ABG pO2 99.1 mm Hg (80.0-90.0) H 07/20/22 05:30 ABG HCO3 32.8 mmol/L (20.0-26.0) H 07/20/22 05:30 ABG O2 Saturation 97.8 % (95.0-99.0) 07/20/22 05:30 ABG O2 Content 13.3 (0.0-44) 07/20/22 05:30 ABG Base Excess 8.8 mmol/L (-2.0-3.0) H 07/20/22 05:30 ABG Hemoglobin 9.7 gm/dl (12.0-16.0) L 07/20/22 05:30 ABG Carboxyhemoglobin 1.3 % (0.0-5.0) 07/20/22 05:30 ABG Methemoglobin 0.6 % (0.0-1.5) 07/20/22 05:30 Oxyhemoglobin 95.9 % (95.0-99.0) 07/20/22 05:30 FiO2 28 % 07/20/22 05:30 Sodium 141 mmol/L (137-145) 07/29/22 04:05 Potassium 4.1 mmol/L (3.6-5.0) 07/29/22 04:05 Chloride 102.3 mmol/L (98-107) 07/29/22 04:05 Carbon Dioxide 33 mmol/L (22-30) H 07/29/22 04:05 Anion Gap 10 mmol/L 07/29/22 04:05 BUN 11 mg/dL (7-17) 07/29/22 04:05 Creatinine 0.3 mg/dL (0.6-1.2) L 07/29/22 04:05 Estimated GFR > 60 ml/min 07/29/22 04:05 BUN/Creatinine Ratio 37 % 07/29/22 04:05 Glucose 115 mg/dL (65-100) H 07/29/22 04:05 POC Glucose 120 mg/dL (70-105) H 07/29/22 23:41 Lactic Acid 2.10 mmol/L (0.7-2.0) H* 07/10/22 08:24 Uric Acid 13.5 mg/dL (3.5-7.6) H 07/07/22 04:17 Calcium 8.2 mg/dL (8.4-10.2) L 07/29/22 04:05 Phosphorus 3.00 mg/dL (2.5-4.5) 07/29/22 04:05 Magnesium 1.70 mg/dL (1.7-2.3) 07/29/22 04:05 Ferritin 519.5 ng/mL (10.0-200.0) H 07/12/22 04:00 Total Bilirubin 0.30 mg/dL (0.1-1.2) 07/10/22 04:21 AST 89 units/L (5-40) H 07/10/22 04:21 ALT 53 units/L (7-56) 07/10/22 04:21 Alkaline Phosphatase 83 units/L (35-129) 07/10/22 04:21 Ammonia 32.0 umol/L (25-60) 07/07/22 04:17 Lactate Dehydrogenase 444 units/L (91-180) H 07/12/22 04:00 Total Creatine Kinase 1745 units/L (30-135) H 07/11/22 05:40 Troponin T 0.010 ng/mL (0.00-0.029) 07/07/22 04:17 C-Reactive Protein 0.30 mg/dL (0.00-1.30) 07/12/22 04:00 Total Protein 4.9 g/dL (6.3-8.2) L 07/10/22 04:21 Albumin 2.5 g/dL (3.9-5) L 07/10/22 04:21 Albumin/Globulin Ratio 1.0 % 07/10/22 04:21 Procalcitonin 0.19 ng/mL (<0.15) 07/08/22 14:54 TSH 9.750 mlU/mL (0.270-4.200) H 07/18/22 12:31 Free T4 0.78 ng/dL (0.76-1.46) 07/18/22 12:31 Thyroxine (T4) 6.2 ug/dL (4.0-12.0) 07/18/22 12:31 Free T3 Index 1.7 pg/mL (2.3-4.2) L 07/18/22 12:31 Total Cortisol 47.9 mcg/dL () 07/07/22 07:43 Urine Color Yellow (Yellow) 07/07/22 03:17 Urine Turbidity Slightly cloudy (Clear) 07/07/22 03:17 Specific [place] (Man) 1.015 (1.003-1.030) 07/07/22 03:17 Ur Protein (Man) 1+ mg/dL (Negative) 07/07/22 03:17 Ur Ketones (Man) Negative (Negative) 07/07/22 03:17 Ur Nitrite (Man) Negative (Negative) 07/07/22 03:17 Urine Bilirubin (Man) Negative (Negative) 07/07/22 03:17 Leukocyte Esterase (Man) Negative (Negative) 07/07/22 03:17 Urine WBC (Auto) 7.0 /HPF (0.0-6.0) H 07/07/22 03:17 Urine RBC (Auto) 1.0 /HPF (0.0-6.0) 07/07/22 03:17 U Epithel Cells (Auto) 4.0 /HPF (0-13.0) 07/07/22 03:17 Urine Bacteria (Auto) 3+ /HPF (Negative) 07/07/22 03:17 Urine RBC (Manual) 3+ (Negative) 07/07/22 03:17 Urine Mucus 3+ /HPF 07/07/22 03:17 Urine Osmolality 744 Mosm/kg 07/07/22 16:45 Urine Creatinine 92.9 mg/dL (0.1-20.0) H 07/07/22 16:45 Urine Sodium 109 mmol/L 07/07/22 16:45 Salicylates < 0.3 mg/dL (2.8-20.0) L 07/07/22 03:38 Urine Opiates Screen Presumptive negative 07/07/22 03:17 Urine Methadone Screen Presumptive negative 07/07/22 03:17 Acetaminophen 5.0 ug/mL (10.0-30.0) L 07/07/22 03:38 Ur Barbiturates Screen Presumptive negative 07/07/22 03:17 Valproic Acid 7.0 ug/mL (50-100) L 07/07/22 03:38 Ur Phencyclidine Scrn Presumptive negative 07/07/22 03:17 Ur Amphetamines Screen Presumptive negative 07/07/22 03:17 U Benzodiazepines Scrn Presumptive negative 07/07/22 03:17 Urine Cocaine Screen Presumptive negative 07/07/22 03:17 U Marijuana (THC) Screen Presumptive negative 07/07/22 03:17 Drugs of Abuse Note Disclamer 07/07/22 03:17 Plasma/Serum Alcohol < 0.01 % (0-0.07) 07/07/22 03:38 SARS-CoV-2 (PCR) Positive (Negative) A 07/07/22 15:00 [place]bin/IV: Voiding Method External Female Catheter Active Medications - Current Medications Current Medications: Generic Name Dose Route Start Last Admin Trade Name Freq PRN Reason Stop Dose Admin Acetaminophen 650 mg 07/13/22 12:00 07/25/22 21:28 Acetaminophen 325 Mg/10.15 Ml Oral Liqd Unit Dose FEEDTUBE 650 mg Q6H PRN Administration Pain MILD(1-3)/Fever >100.5/LEE Atorvastatin Calcium 80 mg 07/10/22 22:00 07/29/22 22:00 Atorvastatin 40 Mg Tab FEEDTUBE 80 mg QHS ERROL Administration Cholecalciferol 1,000 unit 07/10/22 10:00 07/29/22 10:13 Cholecalciferol (Vit D3) 1000 Unit (25 Mcg) Tab FEEDTUBE 1,000 unit QDAY ERROL Administration Dextrose 50 ml 07/09/22 11:42 Dextrose 50% In Water (25gm) 50 Ml Syringe IV Q30MIN PRN Hypoglycemia Protocol Famotidine 20 mg 07/09/22 22:00 07/29/22 22:00 Famotidine 20 Mg Tab FEEDTUBE 20 mg BID ERROL Administration Heparin Sodium (Porcine) 5,000 unit 07/08/22 06:00 07/30/22 05:40 Heparin 5,000 Unit/1 Ml Vial SUB-Q 5,000 unit Q12H ERROL Administration Hydrophilic Ointment 1 applic 07/07/22 02:48 Lip Therapy Vaseline TP Q2HR PRN Dry Lips Insulin Human Lispro 0 unit 07/09/22 12:00 07/30/22 06:39 Insulin Lispro 100 Unit/Ml SUB-Q Not Given Q6HR ERROL Protocol Levothyroxine Sodium 75 mcg 07/11/22 06:00 07/30/22 05:40 Levothyroxine 75 Mcg Tab FEEDTUBE 75 mcg QAM@0600 ERROL Administration Multi-Ingred Cream/Lotion/Oil/Oint 1 applic 07/07/22 02:48 Mineral Oil/Petrolatum, White Ophth Oint 3.5 Gm OU Q4HR PRN Dry Eye(s) Senna/Docusate Sodium 1 tab 07/07/22 10:00 07/29/22 22:01 Sennosides/Docusate Sodium 8.6/50 Mg Tab FEEDTUBE 1 tab BID ERROL Administration Sodium Chloride 10 ml 07/07/22 13:00 07/29/22 22:02 Sodium Chloride 0.9% 10 Ml Flush Syringe IV 10 ml BID ERROL Administration Sodium Chloride 10 ml 07/07/22 12:09 Sodium Chloride 0.9% 10 Ml Flush Syringe IV PRN PRN LINE FLUSH Valproic Acid 250 mg 07/10/22 22:00 07/29/22 22:00 Valproic Acid 250 Mg/5 Ml Oral Liqd FEEDTUBE 250 mg Q12H ERROL Administration Nutrition/Malnutrition Assess - Dietary Evaluation Nutrition/Malnutrition Findings: Nutrition Notes Start: 07/07/22 13:24 Freq: Status: Active Protocol: Document 07/24/22 09:24 DAREN (Rec: 07/24/22 09:53 DAREN [email or web address]) Nutrition Notes Initial or Follow up Reassessment Current Diagnosis Respiratory Failure,Stroke, Hyperlipidemia Other Pertinent Diagnosis COVID-19, Metabolic Encephalopathy, Pulmonary Embolism, Dementia. Current Diet TF-Vital AF 1.2 [place] @ 50 ml/hr (from D 07/12). Labs/Tests 07/24: CO2 33, Crea 0.4, Ca 8. 3. Pertinent Medications 07/24: Vit D3, D5w @ 50ml/hr, Levothyroxine, others nutritionally unremarkable. Height 5 ft 6 in Weight 96.2 kg [place] Body Weight (kg) 59.09 BMI 34.2 Weight change and time frame 0.946 Kg body weight gain in 1 week reported. Weight Status Obese Subjective/Other Information RD consult for routine F/U on TF tolerance/continuation assessment. TF continues as prescribed, and well tolerated, according to RN notes. Pt continues on Mechanical Ventilation, O2 saturation @ 98%, according to Physical Assessment History notes. Procedure on 07/22: Percutaneous Tracheostomy and EGD w/PEG-tube placement, well tolerated. according to Operative Report notes. TF resumed on 07/23, after PEG -tube placement, according to [facility] notes. Possible discharge to LTAC facility, according to [facility] notes. Percent of energy/protein needs met: Prescribed TF-Vital AF 1.2 [place] @ 50 ml/hr provides for energy/protein needs (1,440 Kcal/90 g) during LOS, 101% Kcal, 91% AA. Burn Absent Trauma Absent GI Symptoms Other Difficulty In Swallowing,Chewing Food Allergy No Skin Integrity/Comment Assessment WNL. Current % PO Other Minimum of two criteria Yes Energy Intake (non-severe) <75% Estimated Energy Requirement >7 days Interpretation of Weight Loss (non- 5% in 1 month severe) Fluid Accumulation N/A Protein-Calorie Malnutrition Non-Severe #2 Nutrition Diagnosis Malnutrition Comments: TF continues as prescribed, and well tolerated, according to RN notes. Diagnosis Progress(for reassessment Improved documentation) #1 Nutrition Diagnosis Inadequate oral intake Comments: Procedure on 07/22: Percutaneous Tracheostomy and EGD w/PEG-tube placement, well tolerated. according to Operative Report notes. TF resumed on 07/23, after PEG -tube placement, according to Progress notes. Diagnosis Progress(for reassessment Continues documentation) Is patient on ventilator? Yes Is Patient Ambulatory and/or Out of Bed No REE-([facility]-confined to bed) 1774.548 Kcal/Kg value to use for calculation 15 Approximate Energy Requirements Using 1443 kcal/Kg Calculation Used for Recommendations Kcal/kg Additional Notes Protein: 1.3 g/Kg AdjBW; 101 g /day. Fluids: 1 ml/Kcal, or as per MD. Nutrition Intervention Nutrition Support: Continue TF-Vital AF 1.2 Jameson @ 50 ml/hr. Flush: 75 ml water Q 4 hr, or as per MD. Kcal 1,440 Protein (gm) 90 Carbohydrates (gm) 133 Fat (gm) 65 Fluid (mL) 973 Fiber (gm) 6 % RDI: 101% Kcal; 91% AA. Goal #1 Provide at least 75% of energy /protein needs through Enteral Feeding during LOS. Follow-Up By: 08/07/22 Additional Comments Continue monitoring TF tolerance, ventilation status, and BM.
[2022-07-22] MEDS: INSULIN LISPRO 100 UNIT/ML SUB-Q SCH ×4 (01:17→20:43)
[2022-07-22 04:46] LABS: Basophils % (Auto) 0.1 % (0.0-1.8); Eosinophils % (Auto) 0.5 % (0.0-4.3); Hematocrit 28.9 % (30.3-42.9); Hemoglobin 9.5 gm/dl (10.1-14.3); Lymphocytes # (Auto) 2.1 K/mm3 (1.2-5.4); Lymphocytes % (Auto) 33.3 % (13.4-35.0); Mean Corpuscular HGB Conc 33 % (30-34); Mean Corpuscular Volume 100 fl (79-97); Monocytes # (Auto) 0.6 K/mm3 (0.0-0.8); Platelet Count 161 K/mm3 (140-440); Red Cell Distribution Width 15.5 % (13.2-15.2)
[2022-07-22 04:55] LABS: INR 0.87 (0.87-1.13)
[2022-07-22 05:29] LABS: Blood Urea Nitrogen 12 mg/dL (7-17); Calcium 8.5 mg/dL (8.4-10.2); Hemolysis Index 0
[2022-07-22 05:34] LABS: BUN/Creatinine Ratio 30
[2022-07-22] MEDS: HEPARIN 5,000 UNIT/1 ML VIAL SUB-Q SCH ×2 (06:07→20:42)
[2022-07-22] MEDS: LEVOTHYROXINE 75 MCG TAB FEEDTUBE SCH (06:08)
[2022-07-22] MEDS: CHOLECALCIFEROL (VIT D3) 1000 UNIT (25 mcg) TAB FEEDTUBE SCH (09:33)
[2022-07-22] MEDS: FAMOTIDINE 20 MG TAB FEEDTUBE SCH ×2 (09:33→22:19)
[2022-07-22] MEDS: VALPROIC ACID 250 MG/5 ML ORAL LIQD FEEDTUBE SCH ×2 (09:33→22:18)
[2022-07-22] MEDS: SENNOSIDES/DOCUSATE SODIUM 8.6/50 MG TAB FEEDTUBE SCH ×2 (09:33→22:19)
--- NOTE | 2022-07-22 11:24 | Progress Note ---
Assessment and Plan Assessment and plan: This is a 76-year-old female with CVA, pulmonary embolism, hypothyroidism and JUJU admitted with electrolyte imbalances, hypoxic respiratory failure and COVID- 19 pneumonia Hospital Course to Date: 07/08: Patient noted to be COVID-positive, started on remdesivir, Decadron, ceftriaxone azithromycin and infectious disease was consulted yesterday. This morning patient is on any sedation, PICC line to be placed. RT to attempt PSV. Started on free water flushes and tube feedings. Continues on D5 half-normal saline. 07/09: Patient remains encephalopathic, not on any sedation. Hypernatremia is improving, on FWF Q4hrs and D5w gtt per Nephro. If hypernatremia continue to improve and patient's mentation is unchanged, will get a repeat CT to r/o intracranial abnormalities. Patient remains afebrile, leukocytosis improved, and VSS. Continue current IV abx per ID. Patient failed PSV trial again today, continue PSV trial as tolerated 07/10: Remains stable on the vent, tolerating PSV trial this am. sodium continue to improve but no change in mental status. D/w CCM will get MRI brain to r/o any intracranial abnormalities, EEG also ordered to r/o seizures. Continue FWF and D5w gtt per Nephro. Continue IV steroids and current IV abx per ID. 07/11: Hypernatremia resolved, mentation is unchanged, remains on low vent setting. EEG noted, and MRI brain pending. Will consult Neurology for further recommendations. Continue daily PSV trial as tolerated. 07/12: Appears more awake this morning but still not following any commands. MRI brain with no acute findings and sodium normalized. Awaiting Neuro consult. Continue daily PSV trial as tolerated. Patient's daughter was updated via phone, all questions and concerns were addressed at this time. Medical records requested from [facility] and [facility]. 07/13: DELMI overnight. Mentation is unchanged, remains stable on the vent. Neur ology consult pending. Continue vent adjustment per CCM and daily PSV trial as tolerated. 07/14: Mentation is unchanged, remains afebrile and stable on the vent, VSS. Complete antibiotics course, still on IV steroids X3 more days. ID recommendations noted, remove corbin. Continue daily PSV trial as tolerated. 07/15: DELMI overnight, mentation unchanged, VSS. Patient failed PSV trial this am due to apnea. Continue daily PSV trial as tolerated. Possible trach and Peg per [facility]. 07/16: No acute events overnight, attempted PSV again today. CCM to have family meeting on 07/17 to discuss trach/PEG 07/17: CCM will have family meeting tomorrow. Failed PSV again. No acute events overnight. Thrombocytopenia continues to improve 07/18: [facility] held a family meeting today and surgery will be consulted for trach/PEG placement. Family stated that patient had not had her levothyroxine for several months due to decreased p.o. intake, will send thyroid panel. No acute events reported overnight. Hypotension today and 500 mL normal saline bolus given. Possible trach/peg within 2 days 07/19: No acute events reported overnight. Free T4 normal. Failed PSV 07/20: No acute events reported overnight. Patient taken off isolation per ID. Trach/PEG scheduled for Friday. failed PSV 07/21: No acute events reported overnight. Trach/peg for friday. PSV ongoing 07/22: Remains stable, DELMI overnight. Plan for possible Trac/PEG today by general surgery. Continue dailu PSV trial as tolerated. Assessment and Plan Neuro: Acute metabolic encephalopathy, h/o CVA with hemiplegia, dysphagia, ap hasia, dementia -Reorientation as needed -Maintain sleep-wake cycle -Resume home Lipitor -As needed analgesia -CT head shows no acute intracranial hemorrhage, multiple chronic appearing in farcts including left MCA distribution, left cerebral hemisphere and within the right basal ganglia -Depakene -EEG noted -MRI noted -Neurology consult pending Cardiac: h/o HLD -Resume home Lipitor -Blood pressure monitoring per protocol Respiratory: Acute hypoxic respiratory failure, h/o JUJU, pulmonary embolism -CCM consulted, appreciate recommendations -Intubated on 07/07 with a 7.50 ETT at 24 the lips -A.m. vent settings:PRVC-28%,6,10,400 -See RT notes for titration -A.m. ABG and CXR noted -VAP bundle -SPO2 monitoring GI: NAD -PPI -NTR consulted for tube feedings -BR: Senokot-S : Hypernatremia(resolved), hypokalemia, rhabdomyolysis -Nephrology consulted, appreciate recommendations -Monitor intake and output -Free water flush -BMP every 6 per nephrology -Renally dose medications -Avoid nephrotoxic medications -IVF with KCL, D5 -Replete potassium -Trend BMP ID: COVID Pneumonia, lactic acidosis -Infectious disease consulted, appreciate recommendation -completed IV antibiotics course -Dexamethasone for 10 days, end 07/17 -Contact/droplet precautions -f/u blood culture -Trend COVID-19 inflammatory markers -Monitor WBC and temperature curve -Prophylactic anticoagulation based on D-dimer per hospital protocol Heme: Thrombocytopenia-improved -Patient presented with low plt -Plt continue to trend down, but less than 50% of admit count -No s/s of any active bleeding, H&H stable -Continue to trend CBC -On Heparin SubQ -Transfuse for plt less than 20 and hgb less than 7 Endo: h/o hypothyroidism -Avoid hypoglycemia -SSI -Accu-Cheks q. 6 -Long-acting insulin, titrate as needed -Resume home Synthroid GI/DVT Prophylaxis -PPI- pepcid -Heparin SubQ -SCDs to bilateral lower extremities while in bed The high probability of a clinically significant, sudden or life threatening de terioration of the [multi] system(s) required my full and direct attention, intervention and personal management. The aggregate critical care time was [60] minutes. This time is in addition to time spent performing reported procedures but includes the following: [x] Data Review and interpretation [x] Patient assessment and monitoring of vital signs [x] Documentation [x] Medication orders and management Disposition Plan: ICU Total Time Spent with Patient (Minutes): 60 History Interval history: Patient seen and examined at the bedside. Remains on the vent. Mentation is unchanged. VSS. NPO since AMN for possible trach and PEG today by general Surgery. DELMI overnight Hospitalist Physical - Physical exam Narrative exam: General appearance: Present: other (Intubated, unresponsive, not on any sedations) - EENT Eyes: Present: PERRL - Respiratory Respiratory effort: normal Respiratory: bilateral: rhonchi - Cardiovascular Rhythm: regular Heart Sounds: Present: S1 & S2 - Extremities Extremities: no ischemia, pulses intact, pulses symmetrical Extremity abnormal: edema - Peripheral Assessment Generalized Edema Type: Non-pitting Edema Degree: 2+ Capillary Refill: < 3 seconds Skin Temperature: Warm Peripheral Pulses: within normal limits - Abdominal General gastrointestinal: soft, non-distended, normal bowel sounds - Integumentary Integumentary: Present: warm, dry - Psychiatric Psychiatric: other (Intubated, unresponsive, not on any sedations) - Neurologic Neurologic: other (Intubated, unresponsive, not on any sedations. Open eyes spontaneously, does not track, not following commands, with nonpurposeful movements) - Allied Health Allied health notes reviewed: nursing, case management - Constitutional Vitals: Temp Pulse Resp BP Pulse Ox 98.2 F 102 H 10 L 108/63 100 07/22/22 11:23 07/22/22 10:00 07/22/22 10:00 07/22/22 10:00 07/22/22 08:50 HEART Score - HEART Score Troponin: Troponin T 0.010 ng/mL (0.00-0.029) 07/07/22 04:17 Results - Labs CBC & Chem 7: 07/22/22 04:13 07/22/22 04:00 Labs: Laboratory Last Values WBC 6.4 K/mm3 (4.5-11.0) 07/22/22 04:13 RBC 2.90 M/mm3 (3.65-5.03) L 07/22/22 04:13 Hgb 9.5 gm/dl (10.1-14.3) L 07/22/22 04:13 Hct 28.9 % (30.3-42.9) L 07/22/22 04:13 MCV 100 fl (79-97) H 07/22/22 04:13 MCH 33 pg (28-32) H 07/22/22 04:13 MCHC 33 % (30-34) 07/22/22 04:13 RDW 15.5 % (13.2-15.2) H 07/22/22 04:13 Plt Count 161 K/mm3 (140-440) 07/22/22 04:13 Lymph % (Auto) 33.3 % (13.4-35.0) 07/22/22 04:13 Elliott % (Auto) 10.0 % (0.0-7.3) H 07/22/22 04:13 Eos % (Auto) 0.5 % (0.0-4.3) 07/22/22 04:13 Baso % (Auto) 0.1 % (0.0-1.8) 07/22/22 04:13 Lymph # (Auto) 2.1 K/mm3 (1.2-5.4) 07/22/22 04:13 Elliott # (Auto) 0.6 K/mm3 (0.0-0.8) 07/22/22 04:13 Eos # (Auto) 0.0 K/mm3 (0.0-0.4) 07/22/22 04:13 Baso # (Auto) 0.0 K/mm3 (0.0-0.1) 07/22/22 04:13 Seg Neutrophils % 56.1 % (40.0-70.0) 07/22/22 04:13 Seg Neutrophils # 3.6 K/mm3 (1.8-7.7) 07/22/22 04:13 PT 13.0 Sec. (12.2-14.9) 07/22/22 04:13 INR 0.87 (0.87-1.13) 07/22/22 04:13 APTT 23.0 Sec. (24.2-36.6) L 07/07/22 03:38 D-Dimer 925.80 ng/mlDDU (0-234) H 07/12/22 04:00 ABG pH 7.503 pH Units (7.350-7.450) H 07/20/22 05:30 ABG pCO2 42.7 mm Hg 07/20/22 05:30 ABG pO2 99.1 mm Hg (80.0-90.0) H 07/20/22 05:30 ABG HCO3 32.8 mmol/L (20.0-26.0) H 07/20/22 05:30 ABG O2 Saturation 97.8 % (95.0-99.0) 07/20/22 05:30 ABG O2 Content 13.3 (0.0-44) 07/20/22 05:30 ABG Base Excess 8.8 mmol/L (-2.0-3.0) H 07/20/22 05:30 ABG Hemoglobin 9.7 gm/dl (12.0-16.0) L 07/20/22 05:30 ABG Carboxyhemoglobin 1.3 % (0.0-5.0) 07/20/22 05:30 ABG Methemoglobin 0.6 % (0.0-1.5) 07/20/22 05:30 Oxyhemoglobin 95.9 % (95.0-99.0) 07/20/22 05:30 FiO2 28 % 07/20/22 05:30 Sodium 140 mmol/L (137-145) 07/22/22 04:00 Potassium 3.7 mmol/L (3.6-5.0) 07/22/22 04:00 Chloride 100.2 mmol/L (98-107) 07/22/22 04:00 Carbon Dioxide 31 mmol/L (22-30) H 07/22/22 04:00 Anion Gap 13 mmol/L 07/22/22 04:00 BUN 12 mg/dL (7-17) 07/22/22 04:00 Creatinine 0.4 mg/dL (0.6-1.2) L 07/22/22 04:00 Estimated GFR > 60 ml/min 07/22/22 04:00 BUN/Creatinine Ratio 30 % 07/22/22 04:00 Glucose 105 mg/dL (65-100) H 07/22/22 04:00 POC Glucose 143 mg/dL (70-105) H 07/22/22 00:05 Lactic Acid 2.10 mmol/L (0.7-2.0) H* 07/10/22 08:24 Uric Acid 13.5 mg/dL (3.5-7.6) H 07/07/22 04:17 Calcium 8.5 mg/dL (8.4-10.2) 07/22/22 04:00 Phosphorus 2.80 mg/dL (2.5-4.5) 07/22/22 04:00 Magnesium 1.80 mg/dL (1.7-2.3) 07/22/22 04:00 Ferritin 519.5 ng/mL (10.0-200.0) H 07/12/22 04:00 Total Bilirubin 0.30 mg/dL (0.1-1.2) 07/10/22 04:21 AST 89 units/L (5-40) H 07/10/22 04:21 ALT 53 units/L (7-56) 07/10/22 04:21 Alkaline Phosphatase 83 units/L (35-129) 07/10/22 04:21 Ammonia 32.0 umol/L (25-60) 07/07/22 04:17 Lactate Dehydrogenase 444 units/L (91-180) H 07/12/22 04:00 Total Creatine Kinase 1745 units/L (30-135) H 07/11/22 05:40 Troponin T 0.010 ng/mL (0.00-0.029) 07/07/22 04:17 C-Reactive Protein 0.30 mg/dL (0.00-1.30) 07/12/22 04:00 Total Protein 4.9 g/dL (6.3-8.2) L 07/10/22 04:21 Albumin 2.5 g/dL (3.9-5) L 07/10/22 04:21 Albumin/Globulin Ratio 1.0 % 07/10/22 04:21 Procalcitonin 0.19 ng/mL (<0.15) 07/08/22 14:54 TSH 9.750 mlU/mL (0.270-4.200) H 07/18/22 12:31 Free T4 0.78 ng/dL (0.76-1.46) 07/18/22 12:31 Thyroxine (T4) 6.2 ug/dL (4.0-12.0) 07/18/22 12:31 Free T3 Index 1.7 pg/mL (2.3-4.2) L 07/18/22 12:31 Total Cortisol 47.9 mcg/dL () 07/07/22 07:43 Urine Color Yellow (Yellow) 07/07/22 03:17 Urine Turbidity Slightly cloudy (Clear) 07/07/22 03:17 Specific [place] (Man) 1.015 (1.003-1.030) 07/07/22 03:17 Ur Protein (Man) 1+ mg/dL (Negative) 07/07/22 03:17 Ur Ketones (Man) Negative (Negative) 07/07/22 03:17 Ur Nitrite (Man) Negative (Negative) 07/07/22 03:17 Urine Bilirubin (Man) Negative (Negative) 07/07/22 03:17 Leukocyte Esterase (Man) Negative (Negative) 07/07/22 03:17 Urine WBC (Auto) 7.0 /HPF (0.0-6.0) H 07/07/22 03:17 Urine RBC (Auto) 1.0 /HPF (0.0-6.0) 07/07/22 03:17 U Epithel Cells (Auto) 4.0 /HPF (0-13.0) 07/07/22 03:17 Urine Bacteria (Auto) 3+ /HPF (Negative) 07/07/22 03:17 Urine RBC (Manual) 3+ (Negative) 07/07/22 03:17 Urine Mucus 3+ /HPF 07/07/22 03:17 Urine Osmolality 744 Mosm/kg 07/07/22 16:45 Urine Creatinine 92.9 mg/dL (0.1-20.0) H 07/07/22 16:45 Urine Sodium 109 mmol/L 07/07/22 16:45 Salicylates < 0.3 mg/dL (2.8-20.0) L 07/07/22 03:38 Urine Opiates Screen Presumptive negative 07/07/22 03:17 Urine Methadone Screen Presumptive negative 07/07/22 03:17 Acetaminophen 5.0 ug/mL (10.0-30.0) L 07/07/22 03:38 Ur Barbiturates Screen Presumptive negative 07/07/22 03:17 Valproic Acid 7.0 ug/mL (50-100) L 07/07/22 03:38 Ur Phencyclidine Scrn Presumptive negative 07/07/22 03:17 Ur Amphetamines Screen Presumptive negative 07/07/22 03:17 U Benzodiazepines Scrn Presumptive negative 07/07/22 03:17 Urine Cocaine Screen Presumptive negative 07/07/22 03:17 U Marijuana (THC) Screen Presumptive negative 07/07/22 03:17 Drugs of Abuse Note Disclamer 07/07/22 03:17 Plasma/Serum Alcohol < 0.01 % (0-0.07) 07/07/22 03:38 SARS-CoV-2 (PCR) Positive (Negative) A 07/07/22 15:00 Corbin/IV: Voiding Method External Female Catheter Active Medications - Current Medications Current Medications: Generic Name Dose Route Start Last Admin Trade Name Freq PRN Reason Stop Dose Admin Acetaminophen 650 mg 07/13/22 12:00 07/20/22 17:53 Acetaminophen 325 Mg/10.15 Ml Oral Liqd Unit Dose FEEDTUBE 650 mg Q6H PRN Administration Pain MILD(1-3)/Fever >100.5/LEE Atorvastatin Calcium 80 mg 07/10/22 22:00 07/21/22 22:17 Atorvastatin 40 Mg Tab FEEDTUBE 80 mg QHS ERROL Administration Cholecalciferol 1,000 unit 07/10/22 10:00 07/22/22 09:33 Cholecalciferol (Vit D3) 1000 Unit (25 Mcg) Tab FEEDTUBE 1,000 unit QDAY ERROL Administration Dextrose 50 ml 07/09/22 11:42 Dextrose 50% In Water (25gm) 50 Ml Syringe IV Q30MIN PRN Hypoglycemia Protocol Famotidine 20 mg 07/09/22 22:00 07/22/22 09:33 Famotidine 20 Mg Tab FEEDTUBE 20 mg BID ERROL Administration Heparin Sodium (Porcine) 5,000 unit 07/08/22 06:00 07/22/22 06:07 Heparin 5,000 Unit/1 Ml Vial SUB-Q Not Given Q12H PENDING SALE TO [facility] Hydrophilic Ointment 1 applic 07/07/22 02:48 Lip Therapy Vaseline TP Q2HR PRN Dry Lips Insulin Human Lispro 0 unit 07/09/22 12:00 07/22/22 06:08 Insulin Lispro 100 Unit/Ml SUB-Q Not Given Q6HR PENDING SALE TO [facility] Protocol Levothyroxine Sodium 75 mcg 07/11/22 06:00 07/22/22 06:08 Levothyroxine 75 Mcg Tab FEEDTUBE Not Given QAM@0600 PENDING SALE TO [facility] Multi-Ingred Cream/Lotion/Oil/Oint 1 applic 07/07/22 02:48 Mineral Oil/Petrolatum, White Ophth Oint 3.5 Gm OU Q4HR PRN Dry Eye(s) Senna/Docusate Sodium 1 tab 07/07/22 10:00 07/22/22 09:33 Sennosides/Docusate Sodium 8.6/50 Mg Tab FEEDTUBE 1 tab BID ERROL Administration Sodium Chloride 10 ml 07/07/22 13:00 07/22/22 09:33 Sodium Chloride 0.9% 10 Ml Flush Syringe IV 10 ml BID ERROL Administration Sodium Chloride 10 ml 07/07/22 12:09 Sodium Chloride 0.9% 10 Ml Flush Syringe IV PRN PRN LINE FLUSH Valproic Acid 250 mg 07/10/22 22:00 07/22/22 09:33 Valproic Acid 250 Mg/5 Ml Oral Liqd FEEDTUBE 250 mg Q12H ERROL Administration Nutrition/Malnutrition Assess - Dietary Evaluation Nutrition/Malnutrition Findings: Nutrition Notes Start: 07/07/22 13:24 Freq: Status: Active Protocol: Document 07/17/22 11:13 DAREN (Rec: 07/17/22 11:42 DAREN [id number]) Nutrition Notes Initial or Follow up Reassessment Current Diagnosis Respiratory Failure,Stroke Other Pertinent Diagnosis COVID-19, Metabolic Encephalopathy, Pulmonary Embolism, Dementia. Current Diet TF-Vital AF 1.2 Jameson @ 50 ml/hr (from D 07/12). Labs/Tests 07/17: CO2 36, BUN 18, Crea 0. 4, Glu 139. Pertinent Medications 07/17: Vit D3, Levothyroxine, others nutritionally unremarkable. Height 5 ft 6 in Weight 95.254 kg [place] Body Weight (kg) 59.09 BMI 33.9 Weight change and time frame No body weight change reported in 11 days. Weight Status Obese Subjective/Other Information RD consult for routine F/U on TF tolerance/continuation assessment. TF continues as prescribed, and well tolerated, according to RN notes. Pt continues on Mechanical Ventilation, O2 saturation @ 100%, according to Physical Assessment History notes. Pt presents caries and has missing teeth, according to Physical Assessment History notes. Pt presents bilateral-UE Non- Pitting Edema 2+, according to Physical Assessment History notes. Pt remains incontinent, according to Physical Assessment History notes. Pt presents dysphagia, hemiplegia, and aphasia, according to Physical Assessment History notes. Tracheostomy and PEG-tube placement are being discussed with family, according to Progress notes. Pt is resident of a SNF according to Progress notes. Percent of energy/protein needs met: Prescribed TF-Vital AF 1.2 Jameson @ 50 ml/hr provides for energy/protein needs (1,440 Kcal/90 g) during LOS, 101% Kcal, 91% AA. Burn Absent Trauma Absent GI Symptoms Other Difficulty In Swallowing,Chewing Food Allergy No Skin Integrity/Comment Assessment WNL. Current % PO Other Minimum of two criteria Yes Energy Intake (non-severe) <75% Estimated Energy Requirement >7 days Interpretation of Weight Loss (non- 5% in 1 month severe) Fluid Accumulation Mild (non-severe) Reduced Personal Property Assessor Strength N/A (non-severe) Protein-Calorie Malnutrition Non-Severe #2 Nutrition Diagnosis Malnutrition Diagnosis Progress(for reassessment Continues documentation) #1 Nutrition Diagnosis Inadequate oral intake Diagnosis Progress(for reassessment Continues documentation) Is patient on ventilator? Yes Is Patient Ambulatory and/or Out of Bed No REE-([facility]-confined to bed) 1763.208 Kcal/Kg value to use for calculation 15 Approximate Energy Requirements Using 1429 kcal/Kg Calculation Used for Recommendations Kcal/kg Additional Notes Protein: 1.3 g/Kg AdjBW; 99 g/ day. Fluids: 1 ml/Kcal, or as per MD. Nutrition Intervention Nutrition Support: Continue TF-Vital AF 1.2 Jameson @ 50 ml/hr. Flush: 75 ml water Q 4 hr, or as per MD. Kcal 1,440 Protein (gm) 90 Carbohydrates (gm) 133 Fat (gm) 65 Fluid (mL) 973 Fiber (gm) 6 % RDI: 101% Kcal; 91% AA. Goal #1 Provide at least 75% of energy /protein needs through Enteral Feeding during LOS. Goal #2 Adjust the dietary intervention to better serve Pt's needs and clinical conditions during LOS. Follow-Up By: 07/24/22 Additional Comments Continue monitoring TF tolerance, ventilation status, PEG-tube placement, and BM.
--- NOTE | 2022-07-22 13:34 | Progress Note ---
Assessment and Plan 76 y/o female with acute respiratory failure secondary to altered mental status, most likely from electrolyte abnormalities seen on chemistry, found to be COVID positive. 07/22/22: Trach and Peg hopefully today. 07/21/22: Did 6 hours of PSV yesterday. Trach and peg tomorrow. Check labs to make sure lytes are stable. 07/20/22: Trach/Peg Friday. Supportive care. 07/19/22: Appreciate Surgery. on Schedule for next week. Free T4 was normal. No current indication for stress dose steroids. Continue supportive care. 07/18/22: Family meeting: Discussed current mental state. Discussed negative work up so far to explain why mental state hasnt improved. Per family here, patient was better than what she is not but I had difficult time placing a time frame as to when that was, maybe May. It does appear that she has had a steady decline mentally and even stopped eating. There were talks prior to her admission here about Peg tube placement. Discussed the idea of trach and peg placement. Also explained to family that trach does not fix any underlying reason as to why the patient's mental state is the way it is. The family wasn't aware that she was brought in for altered mental status, they were told she had bradycardia. Nonetheless, the family as a whole wish to pursue trach and peg placement. Consulted Surgery and hopeful they will see soon. Continue supportive measures and continue daily PSV trials. TSH on admit was 13, will repeat but if T4 is normal, nothing to do. She also is not behaving like myxedema coma. Guarded prognosis. 07/17/22: steroids end today. Continue daily PSV trials. Will speak with family about next steps as today is day 10 of intubation and it does not appear that conventional extubation is in the near future. 07/16/22: Continue daily PSV trials. Will speak with family tomorrow as patient is not improving enough for conventional extubation, especially with frequent apnic events. Most likely patient will need trach and peg. 07/15/22: mental status is still unchanged. Eyes open but not tracking or following commands. Also going apnic on PSV trials. Most likely will need trach and peg given mental status has not improved. 07/12/22: Negative MRI for acute infarct. Na is normal. Continue to monitor. Daily PSV trials. Has been intubated now for 5 days. 07/11/22: for MRI today. Appreciate renal help, agree with signing off. Attempt daily PSV. Guarded prognosis. 07/10: follow up MRI. Get official EEG read but no status. Continue daily PSV trials. Guarded prognosis 07/09/22: Continue supportive measures. Continue to fix Na, if no improvement in mental state with normal sodium then will pursue MRI. Picc placed today. 07/08/22: No further sedation. 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 Consider neurology consult and may need to obtain MRI. Attempt PSV trials today. 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 Feed patient and monitor lytes. 1. Discontinue sedation 2. Wean FiO2 for sats >88% and PaO2 greater than 60 3. Agree with fluid resuscitation, patient needs free water 4. Will follow up with family to find out exactly what patient mental status was a facility CCT 31 minutes. Subjective Date of service: 07/22/22 Principal diagnosis: Hypernatremia Interval history: No acute events. Objective Vital Signs - 12hr 07/22/22 07/22/22 07/22/22 02:00 03:00 04:00 Temperature 97.9 F Pulse Rate 101 H 114 H 117 H Pulse Rate [ 116 H From Monitor] Pulse Rate [ Left Dorsalis Pedis] Pulse Rate [ Left Radial] Pulse Rate [ Right Dorsalis Pedis] Pulse Rate [ Right Radial] Respiratory 11 L 12 17 Rate Blood Pressure 101/59 120/77 112/73 O2 Sat by Pulse 100 100 100 Oximetry 07/22/22 07/22/22 07/22/22 04:41 05:00 05:48 Temperature Pulse Rate 115 H Pulse Rate [ From Monitor] Pulse Rate [ Left Dorsalis Pedis] Pulse Rate [ Left Radial] Pulse Rate [ Right Dorsalis Pedis] Pulse Rate [ Right Radial] Respiratory 15 12 Rate Blood Pressure 112/73 120/72 O2 Sat by Pulse 100 100 100 Oximetry 07/22/22 07/22/22 07/22/22 06:00 07:00 07:10 Temperature 98.4 F Pulse Rate 122 H 93 H Pulse Rate [ From Monitor] Pulse Rate [ Left Dorsalis Pedis] Pulse Rate [ Left Radial] Pulse Rate [ Right Dorsalis Pedis] Pulse Rate [ Right Radial] Respiratory 14 10 L Rate Blood Pressure 120/72 129/73 O2 Sat by Pulse 100 Oximetry 07/22/22 07/22/22 07/22/22 08:00 08:50 09:00 Temperature 98.1 F Pulse Rate 116 H 95 H 97 H Pulse Rate [ 114 H From Monitor] Pulse Rate [ 111 H Left Dorsalis Pedis] Pulse Rate [ 114 H Left Radial] Pulse Rate [ 111 H Right Dorsalis Pedis] Pulse Rate [ 114 H Right Radial] Respiratory 15 14 Rate Blood Pressure 95/54 100/58 108/66 O2 Sat by Pulse 100 100 Oximetry 07/22/22 07/22/22 07/22/22 10:00 11:00 11:23 Temperature 98.2 F Pulse Rate 102 H 97 H Pulse Rate [ From Monitor] Pulse Rate [ Left Dorsalis Pedis] Pulse Rate [ Left Radial] Pulse Rate [ Right Dorsalis Pedis] Pulse Rate [ Right Radial] Respiratory 10 L 11 L Rate Blood Pressure 108/63 101/65 O2 Sat by Pulse Oximetry 07/22/22 07/22/22 12:00 12:50 Temperature 98.4 F Pulse Rate 95 H 95 H Pulse Rate [ 95 H From Monitor] Pulse Rate [ Left Dorsalis Pedis] Pulse Rate [ Left Radial] Pulse Rate [ Right Dorsalis Pedis] Pulse Rate [ Right Radial] Respiratory 10 L Rate Blood Pressure 100/58 100/58 O2 Sat by Pulse 100 100 Oximetry Constitutional: comatose ENT: other (orally intubated) Neck: supple Effort: normal Ascultation: Bilateral: clear Percussion: Bilateral: not dull Cardiovascular: regular rate and rhythm Gastrointestinal: normoactive bowel sounds, soft Extremities: no cyanosis, no edema Neurologic: unable to assess CBC and BMP: 07/22/22 04:13 07/22/22 04:00 ABG, PT/INR, D-dimer: ABG ABG pH 7.503 pH Units (7.350-7.450) H 07/20/22 05:30 ABG pCO2 42.7 mm Hg 07/20/22 05:30 ABG pO2 99.1 mm Hg (80.0-90.0) H 07/20/22 05:30 ABG O2 Saturation 97.8 % (95.0-99.0) 07/20/22 05:30 PT/INR, D-dimer PT 13.0 Sec. (12.2-14.9) 07/22/22 04:13 INR 0.87 (0.87-1.13) 07/22/22 04:13 D-Dimer 925.80 ng/mlDDU (0-234) H 07/12/22 04:00 Abnormal lab findings: Abnormal Labs 07/07/22 07/07/22 07/07/22 03:17 03:38 03:38 WBC RBC 5.43 H Hgb 18.2 H Hct 54.9 H MCV 101 H MCH 34 H RDW Plt Count 104 L [place] % (Auto) Seg Neutrophils % Seg Neutrophils # PT 15.0 H APTT 23.0 L D-Dimer ABG pH ABG pO2 ABG HCO3 ABG O2 Saturation ABG Base Excess ABG Hemoglobin Oxyhemoglobin Sodium Potassium Chloride Carbon Dioxide BUN Creatinine Glucose POC Glucose Lactic Acid Uric Acid Calcium Magnesium Ferritin Total Bilirubin AST Lactate Dehydrogenase Total Creatine Kinase C-Reactive Protein Total Protein Albumin TSH Free T3 Index Urine WBC (Auto) 7.0 H Urine Creatinine Salicylates Acetaminophen Valproic Acid SARS-CoV-2 (PCR) 07/07/22 07/07/22 07/07/22 03:38 03:38 03:38 WBC RBC Hgb Hct MCV MCH RDW Plt Count [place] % (Auto) Seg Neutrophils % Seg Neutrophils # PT APTT D-Dimer ABG pH ABG pO2 ABG HCO3 ABG O2 Saturation ABG Base Excess ABG Hemoglobin Oxyhemoglobin Sodium Potassium Chloride Carbon Dioxide BUN Creatinine Glucose POC Glucose Lactic Acid Uric Acid Calcium Magnesium 3.30 H Ferritin Total Bilirubin AST Lactate Dehydrogenase Total Creatine Kinase 1826 H C-Reactive Protein Total Protein Albumin TSH Free T3 Index Urine WBC (Auto) Urine Creatinine Salicylates < 0.3 L Acetaminophen 5.0 L Valproic Acid 7.0 L SARS-CoV-2 (PCR) 07/07/22 07/07/22 07/07/22 04:17 04:17 04:17 WBC RBC Hgb Hct MCV MCH RDW Plt Count [place] % (Auto) Seg Neutrophils % Seg Neutrophils # PT APTT D-Dimer ABG pH ABG pO2 ABG HCO3 ABG O2 Saturation ABG Base Excess ABG Hemoglobin Oxyhemoglobin Sodium 168 H* Potassium 3.2 L Chloride 122.2 H Carbon Dioxide BUN 52 H Creatinine Glucose 158 H POC Glucose Lactic Acid 3.50 H* Uric Acid Calcium 10.9 H Magnesium Ferritin Total Bilirubin 1.40 H AST 47 H Lactate Dehydrogenase Total Creatine Kinase C-Reactive Protein Total Protein Albumin TSH 12.790 H Free T3 Index Urine WBC (Auto) Urine Creatinine Salicylates Acetaminophen Valproic Acid SARS-CoV-2 (PCR) 07/07/22 07/07/22 07/07/22 04:17 07:43 09:35 WBC RBC Hgb Hct MCV MCH RDW Plt Count [place] % (Auto) Seg Neutrophils % Seg Neutrophils # PT APTT D-Dimer ABG pH ABG pO2 377.3 H ABG HCO3 ABG O2 Saturation 99.6 H ABG Base Excess -2.5 L ABG Hemoglobin Oxyhemoglobin Sodium Potassium Chloride Carbon Dioxide BUN Creatinine Glucose POC Glucose Lactic Acid 6.30 H* Uric Acid 13.5 H Calcium Magnesium Ferritin Total Bilirubin AST Lactate Dehydrogenase Total Creatine Kinase C-Reactive Protein Total Protein Albumin TSH Free T3 Index Urine WBC (Auto) Urine Creatinine Salicylates Acetaminophen Valproic Acid SARS-CoV-2 (PCR) 07/07/22 07/07/22 07/07/22 15:00 16:00 16:00 WBC RBC Hgb Hct MCV MCH RDW Plt Count [place] % (Auto) Seg Neutrophils % Seg Neutrophils # PT APTT D-Dimer ABG pH ABG pO2 ABG HCO3 ABG O2 Saturation ABG Base Excess ABG Hemoglobin Oxyhemoglobin Sodium 166 H* Potassium Chloride 124.8 H Carbon Dioxide 20 L BUN 41 H Creatinine Glucose 157 H POC Glucose Lactic Acid 7.00 H* Uric Acid Calcium Magnesium Ferritin Total Bilirubin AST 81 H Lactate Dehydrogenase Total Creatine Kinase C-Reactive Protein Total Protein Albumin TSH Free T3 Index Urine WBC (Auto) Urine Creatinine Salicylates Acetaminophen Valproic Acid SARS-CoV-2 (PCR) Positive A 07/07/22 07/07/22 07/07/22 16:45 23:42 23:42 WBC RBC Hgb Hct MCV MCH RDW Plt Count [place] % (Auto) Seg Neutrophils % Seg Neutrophils # PT APTT D-Dimer ABG pH ABG pO2 ABG HCO3 ABG O2 Saturation ABG Base Excess ABG Hemoglobin Oxyhemoglobin Sodium 165 H* Potassium 3.0 L Chloride 122.8 H Carbon Dioxide BUN 38 H Creatinine Glucose 232 H POC Glucose Lactic Acid 5.60 H* Uric Acid Calcium Magnesium Ferritin Total Bilirubin AST Lactate Dehydrogenase Total Creatine Kinase C-Reactive Protein Total Protein Albumin TSH Free T3 Index Urine WBC (Auto) Urine Creatinine 92.9 H Salicylates Acetaminophen Valproic Acid SARS-CoV-2 (PCR) 07/07/22 07/07/22 07/08/22 Unknown Unknown 05:30 WBC RBC Hgb Hct MCV MCH RDW Plt Count [place] % (Auto) Seg Neutrophils % Seg Neutrophils # PT APTT D-Dimer ABG pH 7.553 H 7.473 H ABG pO2 61.7 L 121.7 H ABG HCO3 ABG O2 Saturation 94.7 L ABG Base Excess 4.3 H ABG Hemoglobin 18.0 H Oxyhemoglobin 93.1 L Sodium 163 H* Potassium 6.3 H* D Chloride 123.7 H Carbon Dioxide BUN 42 H Creatinine Glucose 169 H POC Glucose Lactic Acid Uric Acid Calcium Magnesium Ferritin Total Bilirubin AST Lactate Dehydrogenase Total Creatine Kinase C-Reactive Protein Total Protein Albumin TSH Free T3 Index Urine WBC (Auto) Urine Creatinine Salicylates Acetaminophen Valproic Acid SARS-CoV-2 (PCR) 07/08/22 07/08/22 07/08/22 05:36 11:21 14:54 WBC 11.1 H RBC Hgb Hct MCV 101 H MCH 33 H RDW Plt Count 69 L [place] % (Auto) Seg Neutrophils % 82.0 H Seg Neutrophils # 9.1 H PT APTT D-Dimer ABG pH ABG pO2 ABG HCO3 ABG O2 Saturation ABG Base Excess ABG Hemoglobin Oxyhemoglobin Sodium Potassium Chloride Carbon Dioxide BUN Creatinine Glucose POC Glucose 174 H 148 H Lactic Acid Uric Acid Calcium Magnesium Ferritin Total Bilirubin AST Lactate Dehydrogenase Total Creatine Kinase C-Reactive Protein Total Protein Albumin TSH Free T3 Index Urine WBC (Auto) Urine Creatinine Salicylates Acetaminophen Valproic Acid SARS-CoV-2 (PCR) 07/08/22 07/08/22 07/08/22 14:54 14:54 14:54 WBC RBC Hgb Hct MCV MCH RDW Plt Count [place] % (Auto) Seg Neutrophils % Seg Neutrophils # PT APTT D-Dimer ABG pH ABG pO2 ABG HCO3 ABG O2 Saturation ABG Base Excess ABG Hemoglobin Oxyhemoglobin Sodium 163 H* Potassium 2.9 L* Chloride 123.7 H Carbon Dioxide BUN 30 H Creatinine Glucose 161 H POC Glucose Lactic Acid 6.10 H* Uric Acid Calcium Magnesium Ferritin Total Bilirubin AST 69 H Lactate Dehydrogenase Total Creatine Kinase 2335 H C-Reactive Protein Total Protein 5.6 L D Albumin 3.1 L TSH Free T3 Index Urine WBC (Auto) Urine Creatinine Salicylates Acetaminophen Valproic Acid SARS-CoV-2 (PCR) 07/08/22 07/08/22 07/08/22 14:54 14:54 14:54 WBC RBC Hgb Hct MCV MCH RDW Plt Count [place] % (Auto) Seg Neutrophils % Seg Neutrophils # PT APTT D-Dimer 499.72 H ABG pH ABG pO2 ABG HCO3 ABG O2 Saturation ABG Base Excess ABG Hemoglobin Oxyhemoglobin Sodium Potassium Chloride Carbon Dioxide BUN Creatinine Glucose POC Glucose Lactic Acid Uric Acid Calcium Magnesium Ferritin 722.1 H Total Bilirubin AST Lactate Dehydrogenase 455 H Total Creatine Kinase C-Reactive Protein 1.60 H Total Protein Albumin TSH Free T3 Index Urine WBC (Auto) Urine Creatinine Salicylates Acetaminophen Valproic Acid SARS-CoV-2 (PCR) 07/08/22 07/08/22 07/09/22 19:13 19:53 00:09 WBC RBC Hgb Hct MCV MCH RDW Plt Count [place] % (Auto) Seg Neutrophils % Seg Neutrophils # PT APTT D-Dimer ABG pH ABG pO2 ABG HCO3 ABG O2 Saturation ABG Base Excess ABG Hemoglobin Oxyhemoglobin Sodium 160 H Potassium 3.5 L D Chloride 122.0 H Carbon Dioxide 20 L BUN 28 H Creatinine Glucose 151 H POC Glucose 138 H Lactic Acid 5.70 H* Uric Acid Calcium Magnesium Ferritin Total Bilirubin AST Lactate Dehydrogenase Total Creatine Kinase C-Reactive Protein Total Protein Albumin TSH Free T3 Index Urine WBC (Auto) Urine Creatinine Salicylates Acetaminophen Valproic Acid SARS-CoV-2 (PCR) 07/09/22 07/09/22 07/09/22 00:45 03:21 03:21 WBC RBC Hgb Hct MCV MCH RDW Plt Count [place] % (Auto) Seg Neutrophils % Seg Neutrophils # PT APTT D-Dimer ABG pH ABG pO2 ABG HCO3 ABG O2 Saturation ABG Base Excess ABG Hemoglobin Oxyhemoglobin Sodium 158 H 157 H Potassium Chloride 124.2 H 125.0 H Carbon Dioxide 20 L 20 L BUN 25 H 24 H Creatinine Glucose 147 H 169 H POC Glucose Lactic Acid 4.70 H* Uric Acid Calcium Magnesium Ferritin Total Bilirubin AST 81 H Lactate Dehydrogenase Total Creatine Kinase C-Reactive Protein Total Protein 5.7 L Albumin 2.8 L TSH Free T3 Index Urine WBC (Auto) Urine Creatinine Salicylates Acetaminophen Valproic Acid SARS-CoV-2 (PCR) 07/09/22 07/09/22 07/09/22 04:40 05:35 08:14 WBC RBC Hgb Hct MCV 102 H MCH 33 H RDW Plt Count 74 L [place] % (Auto) Seg Neutrophils % Seg Neutrophils # PT APTT D-Dimer ABG pH ABG pO2 172.1 H ABG HCO3 ABG O2 Saturation 99.1 H ABG Base Excess -2.8 L ABG Hemoglobin Oxyhemoglobin Sodium Potassium Chloride Carbon Dioxide BUN Creatinine Glucose POC Glucose 108 H Lactic Acid Uric Acid Calcium Magnesium Ferritin Total Bilirubin AST Lactate Dehydrogenase Total Creatine Kinase C-Reactive Protein Total Protein Albumin TSH Free T3 Index Urine WBC (Auto) Urine Creatinine Salicylates Acetaminophen Valproic Acid SARS-CoV-2 (PCR) 07/09/22 07/09/22 07/09/22 11:16 11:27 16:20 WBC RBC Hgb Hct MCV MCH RDW Plt Count [place] % (Auto) Seg Neutrophils % Seg Neutrophils # PT APTT D-Dimer ABG pH ABG pO2 ABG HCO3 ABG O2 Saturation ABG Base Excess ABG Hemoglobin Oxyhemoglobin Sodium 155 H Potassium Chloride 121.3 H Carbon Dioxide BUN 21 H Creatinine Glucose 170 H POC Glucose 173 H 190 H Lactic Acid Uric Acid Calcium Magnesium Ferritin Total Bilirubin AST Lactate Dehydrogenase Total Creatine Kinase C-Reactive Protein Total Protein Albumin TSH Free T3 Index Urine WBC (Auto) Urine Creatinine Salicylates Acetaminophen Valproic Acid SARS-CoV-2 (PCR) 07/09/22 07/10/22 07/10/22 17:16 00:04 04:21 WBC RBC Hgb Hct MCV MCH RDW Plt Count [place] % (Auto) Seg Neutrophils % Seg Neutrophils # PT APTT D-Dimer ABG pH ABG pO2 ABG HCO3 ABG O2 Saturation ABG Base Excess ABG Hemoglobin Oxyhemoglobin Sodium 149 H 150 H Potassium Chloride 115.6 H 115.0 H Carbon Dioxide BUN 18 H Creatinine 0.5 L Glucose 207 H 178 H POC Glucose 180 H Lactic Acid Uric Acid Calcium 7.9 L Magnesium Ferritin Total Bilirubin AST 89 H Lactate Dehydrogenase 431 H Total Creatine Kinase C-Reactive Protein Total Protein 4.9 L Albumin 2.5 L TSH Free T3 Index Urine WBC (Auto) Urine Creatinine Salicylates Acetaminophen Valproic Acid SARS-CoV-2 (PCR) 07/10/22 07/10/22 07/10/22 04:21 04:21 04:21 WBC 11.8 H RBC 3.52 L Hgb Hct MCV 99 H MCH 33 H RDW Plt Count 67 L [place] % (Auto) Seg Neutrophils % Seg Neutrophils # PT APTT D-Dimer 585.71 H ABG pH ABG pO2 ABG HCO3 ABG O2 Saturation ABG Base Excess ABG Hemoglobin Oxyhemoglobin Sodium Potassium Chloride Carbon Dioxide BUN Creatinine Glucose POC Glucose Lactic Acid Uric Acid Calcium Magnesium Ferritin 631.3 H Total Bilirubin AST Lactate Dehydrogenase Total Creatine Kinase C-Reactive Protein Total Protein Albumin TSH Free T3 Index Urine WBC (Auto) Urine Creatinine Salicylates Acetaminophen Valproic Acid SARS-CoV-2 (PCR) 07/10/22 07/10/22 07/10/22 04:21 04:55 05:26 WBC RBC Hgb Hct MCV MCH RDW Plt Count [place] % (Auto) Seg Neutrophils % Seg Neutrophils # PT APTT D-Dimer ABG pH ABG pO2 76.8 L ABG HCO3 ABG O2 Saturation ABG Base Excess ABG Hemoglobin 10.4 L Oxyhemoglobin 94.5 L Sodium Potassium Chloride Carbon Dioxide BUN Creatinine Glucose POC Glucose 147 H Lactic Acid 2.50 H* Uric Acid Calcium Magnesium Ferritin Total Bilirubin AST Lactate Dehydrogenase Total Creatine Kinase C-Reactive Protein Total Protein Albumin TSH Free T3 Index Urine WBC (Auto) Urine Creatinine Salicylates Acetaminophen Valproic Acid SARS-CoV-2 (PCR) 07/10/22 07/10/22 07/10/22 08:24 11:31 12:53 WBC RBC Hgb Hct MCV MCH RDW Plt Count [place] % (Auto) Seg Neutrophils % Seg Neutrophils # PT APTT D-Dimer ABG pH ABG pO2 ABG HCO3 ABG O2 Saturation ABG Base Excess ABG Hemoglobin Oxyhemoglobin Sodium Potassium Chloride 110.9 H Carbon Dioxide BUN Creatinine 0.5 L Glucose 200 H POC Glucose 166 H Lactic Acid 2.10 H* Uric Acid Calcium 8.3 L Magnesium Ferritin Total Bilirubin AST Lactate Dehydrogenase Total Creatine Kinase C-Reactive Protein Total Protein Albumin TSH Free T3 Index Urine WBC (Auto) Urine Creatinine Salicylates Acetaminophen Valproic Acid SARS-CoV-2 (PCR) 07/10/22 07/10/22 07/10/22 17:37 18:53 23:30 WBC RBC Hgb Hct MCV MCH RDW Plt Count [place] % (Auto) Seg Neutrophils % Seg Neutrophils # PT APTT D-Dimer ABG pH ABG pO2 ABG HCO3 ABG O2 Saturation ABG Base Excess ABG Hemoglobin Oxyhemoglobin Sodium Potassium Chloride 109.5 H 110.2 H Carbon Dioxide BUN Creatinine 0.5 L 0.5 L Glucose 243 H 208 H POC Glucose 237 H Lactic Acid Uric Acid Calcium 8.1 L 8.1 L Magnesium Ferritin Total Bilirubin AST Lactate Dehydrogenase Total Creatine Kinase C-Reactive Protein Total Protein Albumin TSH Free T3 Index Urine WBC (Auto) Urine Creatinine Salicylates Acetaminophen Valproic Acid SARS-CoV-2 (PCR) 07/10/22 07/11/22 07/11/22 23:57 04:00 04:15 WBC 11.2 H RBC Hgb Hct MCV 99 H MCH RDW Plt Count 73 L [place] % (Auto) Seg Neutrophils % Seg Neutrophils # PT APTT D-Dimer ABG pH ABG pO2 107.4 H ABG HCO3 ABG O2 Saturation ABG Base Excess ABG Hemoglobin Oxyhemoglobin Sodium Potassium Chloride Carbon Dioxide BUN Creatinine Glucose POC Glucose 195 H Lactic Acid Uric Acid Calcium Magnesium Ferritin Total Bilirubin AST Lactate Dehydrogenase Total Creatine Kinase C-Reactive Protein Total Protein Albumin TSH Free T3 Index Urine WBC (Auto) Urine Creatinine Salicylates Acetaminophen Valproic Acid SARS-CoV-2 (PCR) 07/11/22 07/11/22 07/11/22 05:40 05:40 06:06 WBC RBC Hgb Hct MCV MCH RDW Plt Count [place] % (Auto) Seg Neutrophils % Seg Neutrophils # PT APTT D-Dimer ABG pH ABG pO2 ABG HCO3 ABG O2 Saturation ABG Base Excess ABG Hemoglobin Oxyhemoglobin Sodium Potassium Chloride 109.8 H Carbon Dioxide BUN Creatinine 0.5 L Glucose 160 H POC Glucose 145 H Lactic Acid Uric Acid Calcium 8.3 L Magnesium Ferritin Total Bilirubin AST Lactate Dehydrogenase Total Creatine Kinase 1745 H C-Reactive Protein Total Protein Albumin TSH Free T3 Index Urine WBC (Auto) Urine Creatinine Salicylates Acetaminophen Valproic Acid SARS-CoV-2 (PCR) 07/11/22 07/11/22 07/11/22 11:55 11:59 17:44 WBC RBC Hgb Hct MCV MCH RDW Plt Count [place] % (Auto) Seg Neutrophils % Seg Neutrophils # PT APTT D-Dimer ABG pH ABG pO2 ABG HCO3 ABG O2 Saturation ABG Base Excess ABG Hemoglobin Oxyhemoglobin Sodium Potassium Chloride 107.8 H Carbon Dioxide BUN Creatinine 0.5 L Glucose 150 H POC Glucose 150 H 182 H Lactic Acid Uric Acid Calcium 8.2 L Magnesium Ferritin Total Bilirubin AST Lactate Dehydrogenase Total Creatine Kinase C-Reactive Protein Total Protein Albumin TSH Free T3 Index Urine WBC (Auto) Urine Creatinine Salicylates Acetaminophen Valproic Acid SARS-CoV-2 (PCR) 07/11/22 07/12/22 07/12/22 17:50 00:10 00:12 WBC RBC Hgb Hct MCV MCH RDW Plt Count [place] % (Auto) Seg Neutrophils % Seg Neutrophils # PT APTT D-Dimer ABG pH ABG pO2 ABG HCO3 ABG O2 Saturation ABG Base Excess ABG Hemoglobin Oxyhemoglobin Sodium Potassium Chloride 108.4 H Carbon Dioxide BUN Creatinine 0.5 L 0.4 L Glucose 191 H 163 H POC Glucose 154 H Lactic Acid Uric Acid Calcium 8.2 L 7.9 L Magnesium Ferritin Total Bilirubin AST Lactate Dehydrogenase Total Creatine Kinase C-Reactive Protein Total Protein Albumin TSH Free T3 Index Urine WBC (Auto) Urine Creatinine Salicylates Acetaminophen Valproic Acid SARS-CoV-2 (PCR) 07/12/22 07/12/22 07/12/22 04:00 04:00 04:00 WBC RBC Hgb Hct MCV MCH RDW Plt Count [place] % (Auto) Seg Neutrophils % Seg Neutrophils # PT APTT D-Dimer 925.80 H ABG pH ABG pO2 ABG HCO3 ABG O2 Saturation ABG Base Excess ABG Hemoglobin Oxyhemoglobin Sodium Potassium Chloride Carbon Dioxide BUN Creatinine Glucose POC Glucose Lactic Acid Uric Acid Calcium Magnesium Ferritin 519.5 H Total Bilirubin AST Lactate Dehydrogenase 444 H Total Creatine Kinase C-Reactive Protein Total Protein Albumin TSH Free T3 Index Urine WBC (Auto) Urine Creatinine Salicylates Acetaminophen Valproic Acid SARS-CoV-2 (PCR) 07/12/22 07/12/22 07/12/22 04:00 05:00 05:03 WBC 11.7 H RBC 3.33 L Hgb Hct MCV 99 H MCH 33 H RDW Plt Count 68 L [place] % (Auto) Seg Neutrophils % Seg Neutrophils # PT APTT D-Dimer ABG pH 7.453 H ABG pO2 107.9 H ABG HCO3 27.9 H ABG O2 Saturation ABG Base Excess 3.7 H ABG Hemoglobin 10.9 L Oxyhemoglobin Sodium Potassium Chloride Carbon Dioxide BUN Creatinine Glucose POC Glucose 174 H Lactic Acid Uric Acid Calcium Magnesium Ferritin Total Bilirubin AST Lactate Dehydrogenase Total Creatine Kinase C-Reactive Protein Total Protein Albumin TSH Free T3 Index Urine WBC (Auto) Urine Creatinine Salicylates Acetaminophen Valproic Acid SARS-CoV-2 (PCR) 07/12/22 07/12/22 07/12/22 12:15 17:18 23:14 WBC RBC Hgb Hct MCV MCH RDW Plt Count [place] % (Auto) Seg Neutrophils % Seg Neutrophils # PT APTT D-Dimer ABG pH ABG pO2 ABG HCO3 ABG O2 Saturation ABG Base Excess ABG Hemoglobin Oxyhemoglobin Sodium Potassium Chloride Carbon Dioxide BUN Creatinine Glucose POC Glucose 154 H 154 H 167 H Lactic Acid Uric Acid Calcium Magnesium Ferritin Total Bilirubin AST Lactate Dehydrogenase Total Creatine Kinase C-Reactive Protein Total Protein Albumin TSH Free T3 Index Urine WBC (Auto) Urine Creatinine Salicylates Acetaminophen Valproic Acid SARS-CoV-2 (PCR) 07/13/22 07/13/22 07/13/22 04:00 04:10 05:14 WBC RBC 3.17 L Hgb Hct MCV 98 H MCH 34 H RDW Plt Count 75 L [place] % (Auto) Seg Neutrophils % Seg Neutrophils # PT APTT D-Dimer ABG pH ABG pO2 ABG HCO3 ABG O2 Saturation ABG Base Excess ABG Hemoglobin Oxyhemoglobin Sodium Potassium Chloride Carbon Dioxide BUN Creatinine 0.4 L Glucose 136 H POC Glucose 140 H Lactic Acid Uric Acid Calcium Magnesium Ferritin Total Bilirubin AST Lactate Dehydrogenase Total Creatine Kinase C-Reactive Protein Total Protein Albumin TSH Free T3 Index Urine WBC (Auto) Urine Creatinine Salicylates Acetaminophen Valproic Acid SARS-CoV-2 (PCR) 07/13/22 07/13/22 07/13/22 12:03 14:25 17:19 WBC RBC Hgb Hct MCV MCH RDW Plt Count [place] % (Auto) Seg Neutrophils % Seg Neutrophils # PT APTT D-Dimer ABG pH 7.478 H ABG pO2 118.1 H ABG HCO3 28.2 H ABG O2 Saturation ABG Base Excess 4.5 H ABG Hemoglobin Oxyhemoglobin Sodium Potassium Chloride Carbon Dioxide BUN Creatinine Glucose POC Glucose 193 H 189 H Lactic Acid Uric Acid Calcium Magnesium Ferritin Total Bilirubin AST Lactate Dehydrogenase Total Creatine Kinase C-Reactive Protein Total Protein Albumin TSH Free T3 Index Urine WBC (Auto) Urine Creatinine Salicylates Acetaminophen Valproic Acid SARS-CoV-2 (PCR) 07/13/22 07/13/22 07/14/22 23:52 Unknown 06:18 WBC RBC Hgb Hct MCV MCH RDW Plt Count [place] % (Auto) Seg Neutrophils % Seg Neutrophils # PT APTT D-Dimer ABG pH 7.465 H ABG pO2 128.8 H ABG HCO3 29.0 H ABG O2 Saturation ABG Base Excess 4.9 H ABG Hemoglobin 10.3 L Oxyhemoglobin Sodium Potassium Chloride Carbon Dioxide BUN Creatinine Glucose POC Glucose 174 H 167 H Lactic Acid Uric Acid Calcium Magnesium Ferritin Total Bilirubin AST Lactate Dehydrogenase Total Creatine Kinase C-Reactive Protein Total Protein Albumin TSH Free T3 Index Urine WBC (Auto) Urine Creatinine Salicylates Acetaminophen Valproic Acid SARS-CoV-2 (PCR) 07/14/22 07/14/22 07/15/22 11:34 17:20 00:25 WBC RBC Hgb Hct MCV MCH RDW Plt Count [place] % (Auto) Seg Neutrophils % Seg Neutrophils # PT APTT D-Dimer ABG pH ABG pO2 ABG HCO3 ABG O2 Saturation ABG Base Excess ABG Hemoglobin Oxyhemoglobin Sodium Potassium Chloride Carbon Dioxide BUN Creatinine Glucose POC Glucose 187 H 221 H 172 H Lactic Acid Uric Acid Calcium Magnesium Ferritin Total Bilirubin AST Lactate Dehydrogenase Total Creatine Kinase C-Reactive Protein Total Protein Albumin TSH Free T3 Index Urine WBC (Auto) Urine Creatinine Salicylates Acetaminophen Valproic Acid SARS-CoV-2 (PCR) 07/15/22 07/15/22 07/15/22 04:00 04:00 05:49 WBC 11.4 H RBC 3.13 L Hgb Hct MCV 98 H MCH 33 H RDW Plt Count 98 L [place] % (Auto) Seg Neutrophils % Seg Neutrophils # PT APTT D-Dimer ABG pH ABG pO2 ABG HCO3 ABG O2 Saturation ABG Base Excess ABG Hemoglobin Oxyhemoglobin Sodium Potassium Chloride Carbon Dioxide 34 H BUN Creatinine 0.4 L Glucose 126 H POC Glucose 143 H Lactic Acid Uric Acid Calcium Magnesium Ferritin Total Bilirubin AST Lactate Dehydrogenase Total Creatine Kinase C-Reactive Protein Total Protein Albumin TSH Free T3 Index Urine WBC (Auto) Urine Creatinine Salicylates Acetaminophen Valproic Acid SARS-CoV-2 (PCR) 07/15/22 07/15/22 07/16/22 11:19 16:16 00:19 WBC RBC Hgb Hct MCV MCH RDW Plt Count [place] % (Auto) Seg Neutrophils % Seg Neutrophils # PT APTT D-Dimer ABG pH ABG pO2 ABG HCO3 ABG O2 Saturation ABG Base Excess ABG Hemoglobin Oxyhemoglobin Sodium Potassium Chloride Carbon Dioxide BUN Creatinine Glucose POC Glucose 158 H 227 H 153 H Lactic Acid Uric Acid Calcium Magnesium Ferritin Total Bilirubin AST Lactate Dehydrogenase Total Creatine Kinase C-Reactive Protein Total Protein Albumin TSH Free T3 Index Urine WBC (Auto) Urine Creatinine Salicylates Acetaminophen Valproic Acid SARS-CoV-2 (PCR) 07/16/22 07/16/22 07/16/22 04:20 04:20 11:28 WBC RBC 3.16 L Hgb Hct MCV 99 H MCH 33 H RDW Plt Count 101 L [place] % (Auto) Seg Neutrophils % Seg Neutrophils # PT APTT D-Dimer ABG pH ABG pO2 ABG HCO3 ABG O2 Saturation ABG Base Excess ABG Hemoglobin Oxyhemoglobin Sodium Potassium Chloride Carbon Dioxide 36 H BUN 18 H Creatinine 0.4 L Glucose 139 H POC Glucose 158 H Lactic Acid Uric Acid Calcium Magnesium Ferritin Total Bilirubin AST Lactate Dehydrogenase Total Creatine Kinase C-Reactive Protein Total Protein Albumin TSH Free T3 Index Urine WBC (Auto) Urine Creatinine Salicylates Acetaminophen Valproic Acid SARS-CoV-2 (PCR) 07/16/22 07/17/22 07/17/22 16:30 00:07 05:46 WBC RBC Hgb Hct MCV MCH RDW Plt Count [place] % (Auto) Seg Neutrophils % Seg Neutrophils # PT APTT D-Dimer ABG pH ABG pO2 ABG HCO3 ABG O2 Saturation ABG Base Excess ABG Hemoglobin Oxyhemoglobin Sodium Potassium Chloride Carbon Dioxide BUN Creatinine Glucose POC Glucose 201 H 139 H 123 H Lactic Acid Uric Acid Calcium Magnesium Ferritin Total Bilirubin AST Lactate Dehydrogenase Total Creatine Kinase C-Reactive Protein Total Protein Albumin TSH Free T3 Index Urine WBC (Auto) Urine Creatinine Salicylates Acetaminophen Valproic Acid SARS-CoV-2 (PCR) 07/17/22 07/17/22 07/17/22 13:30 17:51 23:49 WBC RBC Hgb Hct MCV MCH RDW Plt Count [place] % (Auto) Seg Neutrophils % Seg Neutrophils # PT APTT D-Dimer ABG pH ABG pO2 ABG HCO3 ABG O2 Saturation ABG Base Excess ABG Hemoglobin Oxyhemoglobin Sodium Potassium Chloride Carbon Dioxide BUN Creatinine Glucose POC Glucose 185 H 219 H 133 H Lactic Acid Uric Acid Calcium Magnesium Ferritin Total Bilirubin AST Lactate Dehydrogenase Total Creatine Kinase C-Reactive Protein Total Protein Albumin TSH Free T3 Index Urine WBC (Auto) Urine Creatinine Salicylates Acetaminophen Valproic Acid SARS-CoV-2 (PCR) 07/18/22 07/18/22 07/18/22 04:00 04:00 04:00 WBC 12.2 H RBC 3.34 L Hgb Hct MCV 100 H MCH 33 H RDW Plt Count 113 L [place] % (Auto) Seg Neutrophils % 77.3 H Seg Neutrophils # 9.4 H PT APTT D-Dimer ABG pH 7.508 H ABG pO2 115.9 H ABG HCO3 33.4 H ABG O2 Saturation ABG Base Excess 9.4 H ABG Hemoglobin 11.7 L Oxyhemoglobin Sodium Potassium Chloride Carbon Dioxide 35 H BUN Creatinine 0.4 L Glucose 130 H POC Glucose Lactic Acid Uric Acid Calcium Magnesium Ferritin Total Bilirubin AST Lactate Dehydrogenase Total Creatine Kinase C-Reactive Protein Total Protein Albumin TSH Free T3 Index Urine WBC (Auto) Urine Creatinine Salicylates Acetaminophen Valproic Acid SARS-CoV-2 (PCR) 07/18/22 07/18/22 07/18/22 04:42 12:31 12:31 WBC RBC Hgb Hct MCV MCH RDW Plt Count [place] % (Auto) Seg Neutrophils % Seg Neutrophils # PT APTT D-Dimer ABG pH ABG pO2 ABG HCO3 ABG O2 Saturation ABG Base Excess ABG Hemoglobin Oxyhemoglobin Sodium Potassium Chloride Carbon Dioxide BUN Creatinine Glucose POC Glucose 134 H Lactic Acid Uric Acid Calcium Magnesium Ferritin Total Bilirubin AST Lactate Dehydrogenase Total Creatine Kinase C-Reactive Protein Total Protein Albumin TSH 9.750 H Free T3 Index 1.7 L Urine WBC (Auto) Urine Creatinine Salicylates Acetaminophen Valproic Acid SARS-CoV-2 (PCR) 07/18/22 07/18/22 07/19/22 12:33 17:39 00:43 WBC RBC Hgb Hct MCV MCH RDW Plt Count [place] % (Auto) Seg Neutrophils % Seg Neutrophils # PT APTT D-Dimer ABG pH ABG pO2 ABG HCO3 ABG O2 Saturation ABG Base Excess ABG Hemoglobin Oxyhemoglobin Sodium Potassium Chloride Carbon Dioxide BUN Creatinine Glucose POC Glucose 172 H 164 H 132 H Lactic Acid Uric Acid Calcium Magnesium Ferritin Total Bilirubin AST Lactate Dehydrogenase Total Creatine Kinase C-Reactive Protein Total Protein Albumin TSH Free T3 Index Urine WBC (Auto) Urine Creatinine Salicylates Acetaminophen Valproic Acid SARS-CoV-2 (PCR) 07/19/22 07/19/22 07/19/22 05:08 12:30 17:42 WBC RBC Hgb Hct MCV MCH RDW Plt Count [place] % (Auto) Seg Neutrophils % Seg Neutrophils # PT APTT D-Dimer ABG pH ABG pO2 ABG HCO3 ABG O2 Saturation ABG Base Excess ABG Hemoglobin Oxyhemoglobin Sodium Potassium Chloride Carbon Dioxide BUN Creatinine Glucose POC Glucose 143 H 159 H 139 H Lactic Acid Uric Acid Calcium Magnesium Ferritin Total Bilirubin AST Lactate Dehydrogenase Total Creatine Kinase C-Reactive Protein Total Protein Albumin TSH Free T3 Index Urine WBC (Auto) Urine Creatinine Salicylates Acetaminophen Valproic Acid SARS-CoV-2 (PCR) 07/19/22 07/20/22 07/20/22 23:26 05:30 06:03 WBC RBC Hgb Hct MCV MCH RDW Plt Count [place] % (Auto) Seg Neutrophils % Seg Neutrophils # PT APTT D-Dimer ABG pH 7.503 H ABG pO2 99.1 H ABG HCO3 32.8 H ABG O2 Saturation ABG Base Excess 8.8 H ABG Hemoglobin 9.7 L Oxyhemoglobin Sodium Potassium Chloride Carbon Dioxide BUN Creatinine Glucose POC Glucose 144 H 146 H Lactic Acid Uric Acid Calcium Magnesium Ferritin Total Bilirubin AST Lactate Dehydrogenase Total Creatine Kinase C-Reactive Protein Total Protein Albumin TSH Free T3 Index Urine WBC (Auto) Urine Creatinine Salicylates Acetaminophen Valproic Acid SARS-CoV-2 (PCR) 07/20/22 07/20/22 07/20/22 12:15 17:24 23:44 WBC RBC Hgb Hct MCV MCH RDW Plt Count [place] % (Auto) Seg Neutrophils % Seg Neutrophils # PT APTT D-Dimer ABG pH ABG pO2 ABG HCO3 ABG O2 Saturation ABG Base Excess ABG Hemoglobin Oxyhemoglobin Sodium Potassium Chloride Carbon Dioxide BUN Creatinine Glucose POC Glucose 138 H 135 H 131 H Lactic Acid Uric Acid Calcium Magnesium Ferritin Total Bilirubin AST Lactate Dehydrogenase Total Creatine Kinase C-Reactive Protein Total Protein Albumin TSH Free T3 Index Urine WBC (Auto) Urine Creatinine Salicylates Acetaminophen Valproic Acid SARS-CoV-2 (PCR) 07/21/22 07/21/22 07/21/22 04:00 04:00 05:13 WBC RBC 2.92 L Hgb 9.6 L Hct 29.0 L MCV 99 H MCH 33 H RDW 15.6 H Plt Count 136 L [place] % (Auto) Seg Neutrophils % Seg Neutrophils # PT APTT D-Dimer ABG pH ABG pO2 ABG HCO3 ABG O2 Saturation ABG Base Excess ABG Hemoglobin Oxyhemoglobin Sodium Potassium Chloride Carbon Dioxide 32 H BUN Creatinine 0.3 L Glucose 133 H POC Glucose 142 H Lactic Acid Uric Acid Calcium 8.3 L Magnesium Ferritin Total Bilirubin AST Lactate Dehydrogenase Total Creatine Kinase C-Reactive Protein Total Protein Albumin TSH Free T3 Index Urine WBC (Auto) Urine Creatinine Salicylates Acetaminophen Valproic Acid SARS-CoV-2 (PCR) 07/21/22 07/21/22 07/21/22 06:16 11:48 16:08 WBC RBC Hgb Hct MCV MCH RDW Plt Count [place] % (Auto) Seg Neutrophils % Seg Neutrophils # PT APTT D-Dimer ABG pH ABG pO2 ABG HCO3 ABG O2 Saturation ABG Base Excess ABG Hemoglobin Oxyhemoglobin Sodium Potassium Chloride Carbon Dioxide BUN Creatinine Glucose POC Glucose 149 H 124 H 139 H Lactic Acid Uric Acid Calcium Magnesium Ferritin Total Bilirubin AST Lactate Dehydrogenase Total Creatine Kinase C-Reactive Protein Total Protein Albumin TSH Free T3 Index Urine WBC (Auto) Urine Creatinine Salicylates Acetaminophen Valproic Acid SARS-CoV-2 (PCR) 07/22/22 07/22/22 07/22/22 00:05 04:00 04:13 WBC RBC 2.90 L Hgb 9.5 L Hct 28.9 L MCV 100 H MCH 33 H RDW 15.5 H Plt Count [place] % (Auto) 10.0 H Seg Neutrophils % Seg Neutrophils # PT APTT D-Dimer ABG pH ABG pO2 ABG HCO3 ABG O2 Saturation ABG Base Excess ABG Hemoglobin Oxyhemoglobin Sodium Potassium Chloride Carbon Dioxide 31 H BUN Creatinine 0.4 L Glucose 105 H POC Glucose 143 H Lactic Acid Uric Acid Calcium Magnesium Ferritin Total Bilirubin AST Lactate Dehydrogenase Total Creatine Kinase C-Reactive Protein Total Protein Albumin TSH Free T3 Index Urine WBC (Auto) Urine Creatinine Salicylates Acetaminophen Valproic Acid SARS-CoV-2 (PCR)
[2022-07-22] MEDS ORDERED: ROCURONIUM 50 MG/5 ML INJ IV ONE (15:26)
[2022-07-22] MEDS ORDERED: WATER FOR IRRIG STERILE 250 ML BOTTLE IR ONE (15:29)
--- NOTE | 2022-07-22 15:40 | Anesthesia Day of Surgery ---
Anesthesia Day of Surgery - Day of Surgery Patient Examined: Yes Patient H&P Reviewed: Yes Patient is NPO: Yes
[2022-07-22] MEDS ORDERED: ceFAZolin 1 GM VIAL ONE (15:43)
--- NOTE | 2022-07-22 15:45 | Anesthesia Consultation ---
Anesthesia Consult and Med Hx - Pulmonary Exam CTA: Yes - Cardiac Exam Cardiac Exam: RRR - Pre-Operative Health Status ASA Pre-Surgery Classification: ASA3 Proposed Anesthetic Plan: General - Pulmonary Hx Respiratory Symptoms: Yes (resp. failure , positive covid 07/08/22) - Cardiovascular System Hx Pacemaker: No Hx Internal Defibrillator: No - Central Nervous System Hx Seizures: Yes CVA: Yes (aphasia, dysphagia) Hx Psychiatric Problems: Yes (dementia, AMS) - Endocrine Hx Thyroid Disease: Yes
[2022-07-22] MEDS ORDERED: fentaNYL 100 MCG/2 ML INJ ONE (15:54)
--- NOTE | 2022-07-22 17:00 | Procedure Note ---
Date of procedure: 07/22/22 Pre-op diagnosis: respiratory failure Post-op diagnosis: same Procedure: 1. flexible bronchoscopy 2. flexible esophagogastroduodenoscopy procedure details: the patient was brought to the OR intubated and sedated. general anesthesia was introduced. flexible bronchoscopy done to assist with percutaneous tracheostomy placement via endotracheal tube. there was moderate respiratory secretions. the trachea and mateo lining was normal. after finishing tracheostomy placement, our attention turned to PEG placement. and EGD scope was introduced into the mouth and down to the stomach with OG tube in place, the pylorus was traversed and duodenum lining was normal. i then retracted back into the stomach to aid in gastrostomy tube placement. please see Dr Pearce's note for report on tracheostomy and PEG placement. Findings: moderate respiratory secretions. mild oozing at GE junction obscuring vision. normal stomach and duodenal lining mucosa Implants: none Anesthesia: RILEY Surgeon: SKY SALGADO Bag Loader: LAURA PEARCE Estimated blood loss: minimal Pathology: none Condition: critical Disposition: ICU
--- NOTE | 2022-07-22 17:17 | Operative Report ---
Operative Report Operative Report: Date of surgery: 07/22/2022 Preoperative diagnosis: Vent dependence, dysphagia Postoperative diagnosis: Same as above Procedure: Percutaneous tracheostomy, EGD w PEG Surgeon: Dr. Pearce Lacing Cutter: Anesthesia: Geta, local Findings: Good placement of tracheostomy as visualized by fiberoptic bronchoscopy. Normal EGD EBL: LESS than 5 cc Specimen: None Complications: None Disposition: Stable to ICU HPI and indication: Patient is a 76-year-old -[place] woman with ventilator dependence and dysphagia. Procedure in detail: The patient was identified in the ICU and brought down to the operating room and positioned in supine position in the OR table. Consent was verified on the chart timeout was performed. The neck was prepped and draped in usual sterile fashion. Anesthesia was administered. A shoulder roll was placed, with the patient's neck mildly hyperextended. performed fiberoptic bronchoscopy throughout the entire procedure. The fiberoptic bronchoscope was inserted through the endotracheal tube via the adapter and the trachea examined. The trachea was unremarkable, and the 8.0 ET tube was approximately 3 cm from mateo at 24 cm at the lip. 1% lidocaine was infiltrated into the skin and subcutaneous tissue approximately 2 fingerbreadths above the mateo. A 2 cm incision was made in a horizontal fashion using a 15 blade. Using a hemostat the soft tissues were bluntly dissected until the trachea was encountered. The ET tube was then pulled back slowly to 16 cm. Using the introducer needle, the trachea was entered under direct visualization. The wire was passed down the trachea towards the mateo. Introducer needle was then removed. The trachea was then serially dilated, after which a 8 [place] Shiley tracheostomy tube was inserted. The balloon was visualized via fiberoptic bronchoscopy. The balloon was inflated, patient placed back on ventilator. There was end-tidal CO2 detected and tidal volumes assessed which were satisfactory. The bronchoscope was then placed through the tracheostomy and showed good positioning of the tracheostomy approximately 4 to 5 cm above the mateo and no bleeding. A drain sponge was placed between the skin and tracheostomy. The tracheostomy was secured to the patient's neck using a tracheostomy strap and prolene suture. A post op chest x-ray is pending. A mouthguard was placed through which a flexible endoscope was passed through the mouth and into the esophagus. The NG tube was visualized along the way. The endoscope was advanced through the esophagus and into the stomach. The stomach was unremarkable. The stomach was insufflated and transillumination performed. An area of transillumination was visualized in the left upper quadrant and marked. The skin was then prepped and draped in usual sterile fashion. Local anesthetic was infiltrated to the skin at the intended incision site. A small incision was made in the skin using an 11 blade. An introducer needle/breakaway sheath was inserted directly through this incision into the stomach under direct endoscopic visualization. The needle was removed. The wire was passed and grasped with a snare by the recruitment assistant and the wire pulled along with the endoscope through the mouth. The PEG tube was assembled onto the wire and pulled back through the mouth and down into the stomach. The outer bumper was at 4 cm at the skin. The PEG tube was cut to size and assembled in the usual fashion. A drain sponge was applied between the skin and the PEG tube and the tube secured with tape. Dr. Bustos then reinserted the endoscope into the mouth and down into the stomach. The PEG tube inner bumper was seen to lay flush against the gastric mucosa without tension. There is no bleeding. The pylorus was entered, and the first portion of the duodenum was unremarkable. The scope was then withdrawn back into the stomach and retroflexed. The entirety of the stomach was unremarkable. The NG tube was withdrawn. The stomach was then desufflated and the endoscope withdrawn. The patient tolerated the procedure well. All sharps were disposed of appropriately. The patient was taken back to the ICU in stable condition.
--- NOTE | 2022-07-22 19:14 | XRay Report ---
CHEST - 1 VIEW INDICATION: tracheostomy COMPARISON: 07/13/2022 FINDINGS: SUPPORT DEVICES: Tracheostomy tube in the midline and interval NG tube removal. Otherwise stable sup port device positioning. HEART: Stable cardiomediastinal silhouette. LUNGS/PLEURA: Clear lungs. ADDITIONAL FINDINGS: None. IMPRESSION: Support devices as above. Signer Name: Capo Cunningham MD Signed: 07/22/2022 7:10 PM Workstation Name: [id number]
[2022-07-23] MEDS: INSULIN LISPRO 100 UNIT/ML SUB-Q SCH ×4 (00:27→18:50)
[2022-07-23] MEDS ORDERED: DEXTROSE 5% IN WATER 1,000 ML IV SCH (01:00)
[2022-07-23 04:47] LABS: Hemoglobin 9.1 gm/dl (10.1-14.3); Mean Corpuscular HGB Conc 34 % (30-34); Mean Corpuscular Volume 100 fl (79-97); Platelet Count 160 K/mm3 (140-440); Red Blood Count 2.71 M/mm3 (3.65-5.03); Red Cell Distribution Width 15.4 % (13.2-15.2)
[2022-07-23 05:06] LABS: Blood Urea Nitrogen 12 mg/dL (7-17); Calcium 8.3 mg/dL (8.4-10.2); Hemolysis Index 4
[2022-07-23] MEDS: LEVOTHYROXINE 75 MCG TAB FEEDTUBE SCH (05:07)
[2022-07-23 05:11] LABS: BUN/Creatinine Ratio 30
[2022-07-23] MEDS: HEPARIN 5,000 UNIT/1 ML VIAL SUB-Q SCH ×2 (05:17→19:02)
[2022-07-23] MEDS: CHOLECALCIFEROL (VIT D3) 1000 UNIT (25 mcg) TAB FEEDTUBE SCH (10:31)
[2022-07-23] MEDS: FAMOTIDINE 20 MG TAB FEEDTUBE SCH ×2 (10:31→22:58)
--- NOTE | 2022-07-23 10:40 | Progress Note ---
<GEORGE DAVIS - Last Filed: 07/23/22 19:36> Assessment and Plan Assessment and plan: This is a 76-year-old female with CVA, pulmonary embolism, hypothyroidism and JUJU admitted with electrolyte imbalances, hypoxic respiratory failure and COVID- 19 pneumonia Hospital Course to Date: 07/08: Patient noted to be COVID-positive, started on remdesivir, Decadron, ceftriaxone azithromycin and infectious disease was consulted yesterday. This morning patient is on any sedation, PICC line to be placed. RT to attempt PSV. Started on free water flushes and tube feedings. Continues on D5 half-normal saline. 07/09: Patient remains encephalopathic, not on any sedation. Hypernatremia is improving, on FWF Q4hrs and D5w gtt per Nephro. If hypernatremia continue to improve and patient's mentation is unchanged, will get a repeat CT to r/o intracranial abnormalities. Patient remains afebrile, leukocytosis improved, and VSS. Continue current IV abx per ID. Patient failed PSV trial again today, trevon nue PSV trial as tolerated 07/10: Remains stable on the vent, tolerating PSV trial this am. sodium continue to improve but no change in mental status. D/w CCM will get MRI brain to r/o any intracranial abnormalities, EEG also ordered to r/o seizures. Continue FWF and D5w gtt per Nephro. Continue IV steroids and current IV abx per ID. 07/11: Hypernatremia resolved, mentation is unchanged, remains on low vent setting. EEG noted, and MRI brain pending. Will consult Neurology for further recommendations. Continue daily PSV trial as tolerated. 07/12: Appears more awake this morning but still not following any commands. MRI brain with no acute findings and sodium normalized. Awaiting Neuro consult. Continue daily PSV trial as tolerated. Patient's daughter was updated via phone, all questions and concerns were addressed at this time. Medical records requested from [facility] and [facility]. 07/13: DELMI overnight. Mentation is unchanged, remains stable on the vent. Neurology consult pending. Continue vent adjustment per CCM and daily PSV trial as tolerated. 07/14: Mentation is unchanged, remains afebrile and stable on the vent, VSS. Complete antibiotics course, still on IV steroids X3 more days. ID recommendations noted, remove corbin. Continue daily PSV trial as tolerated. 07/15: DELMI overnight, mentation unchanged, VSS. Patient failed PSV trial this am due to apnea. Continue daily PSV trial as tolerated. Possible trach and Peg per CCM. 07/16: No acute events overnight, attempted PSV again today. [facility] to have family meeting on 07/17 to discuss trach/PEG 07/17: CCM will have family meeting tomorrow. Failed PSV again. No acute events overnight. Thrombocytopenia continues to improve 07/18: [facility] held a family meeting today and surgery will be consulted for trach/PEG placement. Family stated that patient had not had her levothyroxine for several months due to decreased p.o. intake, will send thyroid panel. No acute events reported overnight. Hypotension today and 500 mL normal saline bolus given. Possible trach/peg within 2 days 07/19: No acute events reported overnight. Free T4 normal. Failed PSV 07/20: No acute events reported overnight. Patient taken off isolation per ID. Trach/PEG scheduled for Friday. failed PSV 07/21: No acute events reported overnight. Trach/peg for friday. PSV ongoing 07/22: Remains stable, DELMI overnight. Plan for possible Trac/PEG today by general surgery. Continue dailu PSV trial as tolerated. 07/23: s/p trach and PEG, remains stable on low vent setting, recent CXR is unremarkable. VSS. Resume TF once okayed by General Surgery. Continue daily PSV trial as tolerated. Possible LTAC placement, case management to arrange. Assessment and Plan Neuro: Acute metabolic encephalopathy, h/o CVA with hemiplegia, dysphagia, aph cira, dementia -Reorientation as needed -Maintain sleep-wake cycle -Resume home Lipitor -As needed analgesia -CT head shows no acute intracranial hemorrhage, multiple chronic appearing inf arcts including left MCA distribution, left cerebral hemisphere and within the right basal ganglia -Depakene -EEG noted -MRI noted -Neurology consult pending Cardiac: h/o HLD -Resume home Lipitor -Blood pressure monitoring per protocol Respiratory: Acute hypoxic respiratory failure, h/o JUJU, pulmonary embolism -CCM consulted, appreciate recommendations -Intubated on 07/07 -07/22 s/p Trach/PEG -A.m. vent settings:PRVC-28%,6,10,400 -See RT notes for titration -A.m. ABG and CXR noted -VAP bundle -SPO2 monitoring GI: NAD -PPI -NTR consulted for tube feedings -BR: Senokot-S : Hypernatremia(resolved), hypokalemia, rhabdomyolysis -Nephrology consulted, appreciate recommendations -Monitor intake and output -Free water flush -BMP every 6 per nephrology -Renally dose medications -Avoid nephrotoxic medications -Replete potassium -Trend BMP ID: COVID Pneumonia, lactic acidosis -Infectious disease consulted, appreciate recommendation -completed IV antibiotics course -Dexamethasone for 10 days, end 07/17 -Contact/droplet precautions -f/u blood culture -Trend COVID-19 inflammatory markers -Monitor WBC and temperature curve -Prophylactic anticoagulation based on D-dimer per hospital protocol Heme: Thrombocytopenia-improved -Patient presented with low plt -Plt continue to trend down, but less than 50% of admit count -No s/s of any active bleeding, H&H stable -Continue to trend CBC -On Heparin SubQ -Transfuse for plt less than 20 and hgb less than 7 Endo: h/o hypothyroidism -Avoid hypoglycemia -SSI -Accu-Cheks q. 6 -Long-acting insulin, titrate as needed -Resume home Synthroid GI/DVT Prophylaxis -PPI- pepcid -Heparin SubQ -SCDs to bilateral lower extremities while in bed The high probability of a clinically significant, sudden or life threatening deterioration of the [multi] system(s) required my full and direct attention, intervention and personal management. The aggregate critical care time was [60] minutes. This time is in addition to time spent performing reported procedures but includes the following: [x] Data Review and interpretation [x] Patient assessment and monitoring of vital signs [x] Documentation [x] Medication orders and management Disposition Plan: ICU Total Time Spent with Patient (Minutes): 60 History Interval history: Patient seen and examined at the bedside. s/p Trach and PEG, remains stable on the vent. VSS. DELMI overnight Hospitalist Physical - Physical exam Narrative exam: General appearance: Present: other (Intubated, unresponsive, not on any sedations) - EENT Eyes: Present: PERRL - Respiratory Respiratory effort: normal Respiratory: bilateral: rhonchi - Cardiovascular Rhythm: regular Heart Sounds: Present: S1 & S2 - Extremities Extremities: no ischemia, pulses intact, pulses symmetrical Extremity abnormal: edema - Peripheral Assessment Generalized Edema Type: Non-pitting Edema Degree: 2+ Capillary Refill: < 3 seconds Skin Temperature: Warm Peripheral Pulses: within normal limits - Abdominal General gastrointestinal: soft, non-distended, normal bowel sounds - Integumentary Integumentary: Present: warm, dry - Psychiatric Psychiatric: other (Intubated, unresponsive, not on any sedations) - Neurologic Neurologic: other (Intubated, unresponsive, not on any sedations. Open eyes spontaneously, does not track, not following commands, with nonpurposeful movements) - Allied Health Allied health notes reviewed: nursing, case management - Constitutional Vitals: Temp Pulse Resp BP Pulse Ox 97.7 F 90 4 L 106/70 100 07/23/22 07:11 07/23/22 08:00 07/23/22 05:00 07/23/22 08:00 07/23/22 08:00 HEART Score - HEART Score Troponin: Troponin T 0.010 ng/mL (0.00-0.029) 07/07/22 04:17 Results - Labs CBC & Chem 7: 07/23/22 04:25 07/23/22 04:25 Labs: Laboratory Last Values WBC 5.6 K/mm3 (4.5-11.0) 07/23/22 04:25 RBC 2.71 M/mm3 (3.65-5.03) L 07/23/22 04:25 Hgb 9.1 gm/dl (10.1-14.3) L 07/23/22 04:25 Hct 27.0 % (30.3-42.9) L 07/23/22 04:25 MCV 100 fl (79-97) H 07/23/22 04:25 MCH 33 pg (28-32) H 07/23/22 04:25 MCHC 34 % (30-34) 07/23/22 04:25 RDW 15.4 % (13.2-15.2) H 07/23/22 04:25 Plt Count 160 K/mm3 (140-440) 07/23/22 04:25 Lymph % (Auto) 33.3 % (13.4-35.0) 07/22/22 04:13 Foster % (Auto) 10.0 % (0.0-7.3) H 07/22/22 04:13 Eos % (Auto) 0.5 % (0.0-4.3) 07/22/22 04:13 Baso % (Auto) 0.1 % (0.0-1.8) 07/22/22 04:13 Lymph # (Auto) 2.1 K/mm3 (1.2-5.4) 07/22/22 04:13 Foster # (Auto) 0.6 K/mm3 (0.0-0.8) 07/22/22 04:13 Eos # (Auto) 0.0 K/mm3 (0.0-0.4) 07/22/22 04:13 Baso # (Auto) 0.0 K/mm3 (0.0-0.1) 07/22/22 04:13 Seg Neutrophils % 56.1 % (40.0-70.0) 07/22/22 04:13 Seg Neutrophils # 3.6 K/mm3 (1.8-7.7) 07/22/22 04:13 PT 13.0 Sec. (12.2-14.9) 07/22/22 04:13 INR 0.87 (0.87-1.13) 07/22/22 04:13 APTT 23.0 Sec. (24.2-36.6) L 07/07/22 03:38 D-Dimer 925.80 ng/mlDDU (0-234) H 07/12/22 04:00 ABG pH 7.503 pH Units (7.350-7.450) H 07/20/22 05:30 ABG pCO2 42.7 mm Hg 07/20/22 05:30 ABG pO2 99.1 mm Hg (80.0-90.0) H 07/20/22 05:30 ABG HCO3 32.8 mmol/L (20.0-26.0) H 07/20/22 05:30 ABG O2 Saturation 97.8 % (95.0-99.0) 07/20/22 05:30 ABG O2 Content 13.3 (0.0-44) 07/20/22 05:30 ABG Base Excess 8.8 mmol/L (-2.0-3.0) H 07/20/22 05:30 ABG Hemoglobin 9.7 gm/dl (12.0-16.0) L 07/20/22 05:30 ABG Carboxyhemoglobin 1.3 % (0.0-5.0) 07/20/22 05:30 ABG Methemoglobin 0.6 % (0.0-1.5) 07/20/22 05:30 Oxyhemoglobin 95.9 % (95.0-99.0) 07/20/22 05:30 FiO2 28 % 07/20/22 05:30 Sodium 141 mmol/L (137-145) 07/23/22 04:25 Potassium 3.9 mmol/L (3.6-5.0) 07/23/22 04:25 Chloride 101.0 mmol/L (98-107) 07/23/22 04:25 Carbon Dioxide 33 mmol/L (22-30) H 07/23/22 04:25 Anion Gap 11 mmol/L 07/23/22 04:25 BUN 12 mg/dL (7-17) 07/23/22 04:25 Creatinine 0.4 mg/dL (0.6-1.2) L 07/23/22 04:25 Estimated GFR > 60 ml/min 07/23/22 04:25 BUN/Creatinine Ratio 30 % 07/23/22 04:25 Glucose 100 mg/dL (65-100) 07/23/22 04:25 POC Glucose 76 mg/dL (70-105) 07/23/22 00:01 Lactic Acid 2.10 mmol/L (0.7-2.0) H* 07/10/22 08:24 Uric Acid 13.5 mg/dL (3.5-7.6) H 07/07/22 04:17 Calcium 8.3 mg/dL (8.4-10.2) L 07/23/22 04:25 Phosphorus 2.80 mg/dL (2.5-4.5) 07/22/22 04:00 Magnesium 1.80 mg/dL (1.7-2.3) 07/22/22 04:00 Ferritin 519.5 ng/mL (10.0-200.0) H 07/12/22 04:00 Total Bilirubin 0.30 mg/dL (0.1-1.2) 07/10/22 04:21 AST 89 units/L (5-40) H 07/10/22 04:21 ALT 53 units/L (7-56) 07/10/22 04:21 Alkaline Phosphatase 83 units/L (35-129) 07/10/22 04:21 Ammonia 32.0 umol/L (25-60) 07/07/22 04:17 Lactate Dehydrogenase 444 units/L (91-180) H 07/12/22 04:00 Total Creatine Kinase 1745 units/L (30-135) H 07/11/22 05:40 Troponin T 0.010 ng/mL (0.00-0.029) 07/07/22 04:17 C-Reactive Protein 0.30 mg/dL (0.00-1.30) 07/12/22 04:00 Total Protein 4.9 g/dL (6.3-8.2) L 07/10/22 04:21 Albumin 2.5 g/dL (3.9-5) L 07/10/22 04:21 Albumin/Globulin Ratio 1.0 % 07/10/22 04:21 Procalcitonin 0.19 ng/mL (<0.15) 07/08/22 14:54 TSH 9.750 mlU/mL (0.270-4.200) H 07/18/22 12:31 Free T4 0.78 ng/dL (0.76-1.46) 07/18/22 12:31 Thyroxine (T4) 6.2 ug/dL (4.0-12.0) 07/18/22 12:31 Free T3 Index 1.7 pg/mL (2.3-4.2) L 07/18/22 12:31 Total Cortisol 47.9 mcg/dL () 07/07/22 07:43 Urine Color Yellow (Yellow) 07/07/22 03:17 Urine Turbidity Slightly cloudy (Clear) 07/07/22 03:17 Specific Reynolds (Man) 1.015 (1.003-1.030) 07/07/22 03:17 Ur Protein (Man) 1+ mg/dL (Negative) 07/07/22 03:17 Ur Ketones (Man) Negative (Negative) 07/07/22 03:17 Ur Nitrite (Man) Negative (Negative) 07/07/22 03:17 Urine Bilirubin (Man) Negative (Negative) 07/07/22 03:17 Leukocyte Esterase (Man) Negative (Negative) 07/07/22 03:17 Urine WBC (Auto) 7.0 /HPF (0.0-6.0) H 07/07/22 03:17 Urine RBC (Auto) 1.0 /HPF (0.0-6.0) 07/07/22 03:17 U Epithel Cells (Auto) 4.0 /HPF (0-13.0) 07/07/22 03:17 Urine Bacteria (Auto) 3+ /HPF (Negative) 07/07/22 03:17 Urine RBC (Manual) 3+ (Negative) 07/07/22 03:17 Urine Mucus 3+ /HPF 07/07/22 03:17 Urine Osmolality 744 Mosm/kg 07/07/22 16:45 Urine Creatinine 92.9 mg/dL (0.1-20.0) H 07/07/22 16:45 Urine Sodium 109 mmol/L 07/07/22 16:45 Salicylates < 0.3 mg/dL (2.8-20.0) L 07/07/22 03:38 Urine Opiates Screen Presumptive negative 07/07/22 03:17 Urine Methadone Screen Presumptive negative 07/07/22 03:17 Acetaminophen 5.0 ug/mL (10.0-30.0) L 07/07/22 03:38 Ur Barbiturates Screen Presumptive negative 07/07/22 03:17 Valproic Acid 7.0 ug/mL (50-100) L 07/07/22 03:38 Ur Phencyclidine Scrn Presumptive negative 07/07/22 03:17 Ur Amphetamines Screen Presumptive negative 07/07/22 03:17 U Benzodiazepines Scrn Presumptive negative 07/07/22 03:17 Urine Cocaine Screen Presumptive negative 07/07/22 03:17 U Marijuana (THC) Screen Presumptive negative 07/07/22 03:17 Drugs of Abuse Note Disclamer 07/07/22 03:17 Plasma/Serum Alcohol < 0.01 % (0-0.07) 07/07/22 03:38 SARS-CoV-2 (PCR) Positive (Negative) A 07/07/22 15:00 Corbin/IV: Voiding Method External Female Catheter Active Medications - Current Medications Current Medications: Generic Name Dose Route Start Last Admin Trade Name Freq PRN Reason Stop Dose Admin Acetaminophen 650 mg 07/13/22 12:00 07/20/22 17:53 Acetaminophen 325 Mg/10.15 Ml Oral Liqd Unit Dose FEEDTUBE 650 mg Q6H PRN Administration Pain MILD(1-3)/Fever >100.5/LEE Atorvastatin Calcium 80 mg 07/10/22 22:00 07/22/22 22:18 Atorvastatin 40 Mg Tab FEEDTUBE Not Given QHS ERROL Cholecalciferol 1,000 unit 07/10/22 10:00 07/22/22 09:33 Cholecalciferol (Vit D3) 1000 Unit (25 Mcg) Tab FEEDTUBE 1,000 unit QDAY ERROL Administration Dextrose 50 ml 07/09/22 11:42 Dextrose 50% In Water (25gm) 50 Ml Syringe IV Q30MIN PRN Hypoglycemia Protocol Famotidine 20 mg 07/09/22 22:00 07/22/22 22:19 Famotidine 20 Mg Tab FEEDTUBE Not Given BID ERROL Heparin Sodium (Porcine) 5,000 unit 07/08/22 06:00 07/23/22 05:17 Heparin 5,000 Unit/1 Ml Vial SUB-Q 5,000 unit Q12H ERROL Administration Hydrophilic Ointment 1 applic 07/07/22 02:48 Lip Therapy Vaseline TP Q2HR PRN Dry Lips Dextrose 1,000 mls @ 50 mls/hr 07/23/22 01:00 07/23/22 00:27 D5w IV 50 mls/hr DIRECT ERROL Administration Insulin Human Lispro 0 unit 07/09/22 12:00 07/23/22 05:07 Insulin Lispro 100 Unit/Ml SUB-Q Not Given Q6HR [facility] Protocol Levothyroxine Sodium 75 mcg 07/11/22 06:00 07/23/22 05:07 Levothyroxine 75 Mcg Tab FEEDTUBE Not Given QAM@0600 [facility] Multi-Ingred Cream/Lotion/Oil/Oint 1 applic 07/07/22 02:48 Mineral Oil/Petrolatum, White Ophth Oint 3.5 Gm OU Q4HR PRN Dry Eye(s) Senna/Docusate Sodium 1 tab 07/07/22 10:00 07/22/22 22:19 Sennosides/Docusate Sodium 8.6/50 Mg Tab FEEDTUBE Not Given BID ERROL Sodium Chloride 10 ml 07/07/22 13:00 07/22/22 22:19 Sodium Chloride 0.9% 10 Ml Flush Syringe IV 10 ml BID ERROL Administration Sodium Chloride 10 ml 07/07/22 12:09 Sodium Chloride 0.9% 10 Ml Flush Syringe IV PRN PRN LINE FLUSH Valproic Acid 250 mg 07/10/22 22:00 07/22/22 22:18 Valproic Acid 250 Mg/5 Ml Oral Liqd FEEDTUBE Not Given Q12H ERROL Nutrition/Malnutrition Assess - Dietary Evaluation Nutrition/Malnutrition Findings: Nutrition Notes Start: 07/07/22 13:24 Freq: Status: Active Protocol: Document 07/17/22 11:13 DAREN (Rec: 07/17/22 11:42 DAREN [email or web address]) Nutrition Notes Initial or Follow up Reassessment Current Diagnosis Respiratory Failure,Stroke Other Pertinent Diagnosis COVID-19, Metabolic Encephalopathy, Pulmonary Embolism, Dementia. Current Diet TF-Vital AF 1.2 [place] @ 50 ml/hr (from D 07/12). Labs/Tests 07/17: CO2 36, BUN 18, Crea 0. 4, Glu 139. Pertinent Medications 07/17: Vit D3, Levothyroxine, others nutritionally unremarkable. Height 5 ft 6 in Weight 95.254 kg [place] Body Weight (kg) 59.09 BMI 33.9 Weight change and time frame No body weight change reported in 11 days. Weight Status Obese Subjective/Other Information RD consult for routine F/U on TF tolerance/continuation assessment. TF continues as prescribed, and well tolerated, according to RN notes. Pt continues on Mechanical Ventilation, O2 saturation @ 100%, according to Physical Assessment History notes. Pt presents caries and has missing teeth, according to Physical Assessment History notes. Pt presents bilateral-UE Non- Pitting Edema 2+, according to Physical Assessment History notes. Pt remains incontinent, according to Physical Assessment History notes. Pt presents dysphagia, hemiplegia, and aphasia, according to Physical Assessment History notes. Tracheostomy and PEG-tube placement are being discussed with family, according to Progress notes. Pt is resident of a SNF according to Progress notes. Percent of energy/protein needs met: Prescribed TF-Vital AF 1.2 [place] @ 50 ml/hr provides for energy/protein needs (1,440 Kcal/90 g) during LOS, 101% Kcal, 91% AA. Burn Absent Trauma Absent GI Symptoms Other Difficulty In Swallowing,Chewing Food Allergy No Skin Integrity/Comment Assessment WNL. 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 Yes Is Patient Ambulatory and/or Out of Bed No REE-([place]-confined to bed) 1763.208 Kcal/Kg value to use for calculation 15 Approximate Energy Requirements Using 1429 kcal/Kg Calculation Used for Recommendations Kcal/kg Additional Notes Protein: 1.3 g/Kg AdjBW; 99 g/ day. Fluids: 1 ml/Kcal, or as per MD. Nutrition Intervention Nutrition Support: Continue TF-Vital AF 1.2 [place] @ 50 ml/hr. Flush: 75 ml water Q 4 hr, or as per MD. Kcal 1,440 Protein (gm) 90 Carbohydrates (gm) 133 Fat (gm) 65 Fluid (mL) 973 Fiber (gm) 6 % RDI: 101% Kcal; 91% AA. Goal #1 Provide at least 75% of energy /protein needs through Enteral Feeding during LOS. Goal #2 Adjust the dietary intervention to better serve Pt's needs and clinical conditions during LOS. Follow-Up By: 07/24/22 Additional Comments Continue monitoring TF tolerance, ventilation status, PEG-tube placement, and BM. <ANAHI ANGELES E - Last Filed: 07/24/22 07:24> Assessment and Plan Assessment and plan: I saw and evaluated the patient. I agree with the findings and the plan of care as documented in the Nurse Practitioner's~note, with the following corrections and additions. Hospitalist Physical - Constitutional Vitals: Temp Pulse Resp BP Pulse Ox 98.7 F 99 H 8 L 101/58 100 07/24/22 04:00 07/24/22 06:00 07/24/22 06:00 07/24/22 06:00 07/24/22 05:00 HEART Score - HEART Score Troponin: Troponin T 0.010 ng/mL (0.00-0.029) 08/28/22 04:17 Results - Labs CBC & Chem 7: 07/23/22 04:25 07/23/22 04:25 Labs: Laboratory Last Values WBC 5.6 K/mm3 (4.5-11.0) 07/23/22 04:25 RBC 2.71 M/mm3 (3.65-5.03) L 07/23/22 04:25 Hgb 9.1 gm/dl (10.1-14.3) L 07/23/22 04:25 Hct 27.0 % (30.3-42.9) L 07/23/22 04:25 MCV 100 fl (79-97) H 07/23/22 04:25 MCH 33 pg (28-32) H 07/23/22 04:25 MCHC 34 % (30-34) 07/23/22 04:25 RDW 15.4 % (13.2-15.2) H 07/23/22 04:25 Plt Count 160 K/mm3 (140-440) 07/23/22 04:25 Lymph % (Auto) 33.3 % (13.4-35.0) 07/22/22 04:13 Foster % (Auto) 10.0 % (0.0-7.3) H 07/22/22 04:13 Eos % (Auto) 0.5 % (0.0-4.3) 07/22/22 04:13 Baso % (Auto) 0.1 % (0.0-1.8) 07/22/22 04:13 Lymph # (Auto) 2.1 K/mm3 (1.2-5.4) 07/22/22 04:13 Foster # (Auto) 0.6 K/mm3 (0.0-0.8) 07/22/22 04:13 Eos # (Auto) 0.0 K/mm3 (0.0-0.4) 07/22/22 04:13 Baso # (Auto) 0.0 K/mm3 (0.0-0.1) 07/22/22 04:13 Seg Neutrophils % 56.1 % (40.0-70.0) 07/22/22 04:13 Seg Neutrophils # 3.6 K/mm3 (1.8-7.7) 07/22/22 04:13 PT 13.0 Sec. (12.2-14.9) 07/22/22 04:13 INR 0.87 (0.87-1.13) 07/22/22 04:13 APTT 23.0 Sec. (24.2-36.6) L 07/07/22 03:38 D-Dimer 925.80 ng/mlDDU (0-234) H 07/12/22 04:00 ABG pH 7.503 pH Units (7.350-7.450) H 07/20/22 05:30 ABG pCO2 42.7 mm Hg 07/20/22 05:30 ABG pO2 99.1 mm Hg (80.0-90.0) H 07/20/22 05:30 ABG HCO3 32.8 mmol/L (20.0-26.0) H 07/20/22 05:30 ABG O2 Saturation 97.8 % (95.0-99.0) 07/20/22 05:30 ABG O2 Content 13.3 (0.0-44) 07/20/22 05:30 ABG Base Excess 8.8 mmol/L (-2.0-3.0) H 07/20/22 05:30 ABG Hemoglobin 9.7 gm/dl (12.0-16.0) L 07/20/22 05:30 ABG Carboxyhemoglobin 1.3 % (0.0-5.0) 07/20/22 05:30 ABG Methemoglobin 0.6 % (0.0-1.5) 07/20/22 05:30 Oxyhemoglobin 95.9 % (95.0-99.0) 07/20/22 05:30 FiO2 28 % 07/20/22 05:30 Sodium 141 mmol/L (137-145) 07/23/22 04:25 Potassium 3.9 mmol/L (3.6-5.0) 07/23/22 04:25 Chloride 101.0 mmol/L (98-107) 07/23/22 04:25 Carbon Dioxide 33 mmol/L (22-30) H 07/23/22 04:25 Anion Gap 11 mmol/L 07/23/22 04:25 BUN 12 mg/dL (7-17) 07/23/22 04:25 Creatinine 0.4 mg/dL (0.6-1.2) L 07/23/22 04:25 Estimated GFR > 60 ml/min 07/23/22 04:25 BUN/Creatinine Ratio 30 % 07/23/22 04:25 Glucose 100 mg/dL (65-100) 07/23/22 04:25 POC Glucose 115 mg/dL (70-105) H 07/23/22 23:34 Lactic Acid 2.10 mmol/L (0.7-2.0) H* 07/10/22 08:24 Uric Acid 13.5 mg/dL (3.5-7.6) H 07/07/22 04:17 Calcium 8.3 mg/dL (8.4-10.2) L 07/23/22 04:25 Phosphorus 2.80 mg/dL (2.5-4.5) 07/22/22 04:00 Magnesium 1.80 mg/dL (1.7-2.3) 07/22/22 04:00 Ferritin 519.5 ng/mL (10.0-200.0) H 07/12/22 04:00 Total Bilirubin 0.30 mg/dL (0.1-1.2) 07/10/22 04:21 AST 89 units/L (5-40) H 07/10/22 04:21 ALT 53 units/L (7-56) 07/10/22 04:21 Alkaline Phosphatase 83 units/L (35-129) 07/10/22 04:21 Ammonia 32.0 umol/L (25-60) 07/07/22 04:17 Lactate Dehydrogenase 444 units/L (91-180) H 07/12/22 04:00 Total Creatine Kinase 1745 units/L (30-135) H 07/11/22 05:40 Troponin T 0.010 ng/mL (0.00-0.029) 07/07/22 04:17 C-Reactive Protein 0.30 mg/dL (0.00-1.30) 07/12/22 04:00 Total Protein 4.9 g/dL (6.3-8.2) L 07/10/22 04:21 Albumin 2.5 g/dL (3.9-5) L 07/10/22 04:21 Albumin/Globulin Ratio 1.0 % 07/10/22 04:21 Procalcitonin 0.19 ng/mL (<0.15) 07/08/22 14:54 TSH 9.750 mlU/mL (0.270-4.200) H 07/18/22 12:31 Free T4 0.78 ng/dL (0.76-1.46) 07/18/22 12:31 Thyroxine (T4) 6.2 ug/dL (4.0-12.0) 07/18/22 12:31 Free T3 Index 1.7 pg/mL (2.3-4.2) L 07/18/22 12:31 Total Cortisol 47.9 mcg/dL () 07/07/22 07:43 Urine Color Yellow (Yellow) 07/07/22 03:17 Urine Turbidity Slightly cloudy (Clear) 07/07/22 03:17 Specific Reynolds (Man) 1.015 (1.003-1.030) 07/07/22 03:17 Ur Protein (Man) 1+ mg/dL (Negative) 07/07/22 03:17 Ur Ketones (Man) Negative (Negative) 07/07/22 03:17 Ur Nitrite (Man) Negative (Negative) 07/07/22 03:17 Urine Bilirubin (Man) Negative (Negative) 07/07/22 03:17 Leukocyte Esterase (Man) Negative (Negative) 07/07/22 03:17 Urine WBC (Auto) 7.0 /HPF (0.0-6.0) H 07/07/22 03:17 Urine RBC (Auto) 1.0 /HPF (0.0-6.0) 07/07/22 03:17 U Epithel Cells (Auto) 4.0 /HPF (0-13.0) 07/07/22 03:17 Urine Bacteria (Auto) 3+ /HPF (Negative) 07/07/22 03:17 Urine RBC (Manual) 3+ (Negative) 07/07/22 03:17 Urine Mucus 3+ /HPF 07/07/22 03:17 Urine Osmolality 744 Mosm/kg 07/07/22 16:45 Urine Creatinine 92.9 mg/dL (0.1-20.0) H 07/07/22 16:45 Urine Sodium 109 mmol/L 07/07/22 16:45 Salicylates < 0.3 mg/dL (2.8-20.0) L 07/07/22 03:38 Urine Opiates Screen Presumptive negative 07/07/22 03:17 Urine Methadone Screen Presumptive negative 07/07/22 03:17 Acetaminophen 5.0 ug/mL (10.0-30.0) L 07/07/22 03:38 Ur Barbiturates Screen Presumptive negative 07/07/22 03:17 Valproic Acid 7.0 ug/mL (50-100) L 07/07/22 03:38 Ur Phencyclidine Scrn Presumptive negative 07/07/22 03:17 Ur Amphetamines Screen Presumptive negative 07/07/22 03:17 U Benzodiazepines Scrn Presumptive negative 07/07/22 03:17 Urine Cocaine Screen Presumptive negative 07/07/22 03:17 U Marijuana (THC) Screen Presumptive negative 07/07/22 03:17 Drugs of Abuse Note Disclamer 07/07/22 03:17 Plasma/Serum Alcohol < 0.01 % (0-0.07) 07/07/22 03:38 SARS-CoV-2 (PCR) Positive (Negative) A 07/07/22 15:00 [place]bin/IV: Voiding Method External Female Catheter Active Medications - Current Medications Current Medications: Generic Name Dose Route Start Last Admin Trade Name Freq PRN Reason Stop Dose Admin Acetaminophen 650 mg 07/13/22 12:00 07/20/22 17:53 Acetaminophen 325 Mg/10.15 Ml Oral Liqd Unit Dose FEEDTUBE 650 mg Q6H PRN Administration Pain MILD(1-3)/Fever >100.5/LEE Atorvastatin Calcium 80 mg 07/10/22 22:00 07/23/22 22:57 Atorvastatin 40 Mg Tab FEEDTUBE 80 mg QHS ERROL Administration Cholecalciferol 1,000 unit 07/10/22 10:00 07/23/22 10:31 Cholecalciferol (Vit D3) 1000 Unit (25 Mcg) Tab FEEDTUBE 1,000 unit QDAY ERROL Administration Dextrose 50 ml 07/09/22 11:42 Dextrose 50% In Water (25gm) 50 Ml Syringe IV Q30MIN PRN Hypoglycemia Protocol Famotidine 20 mg 07/09/22 22:00 07/23/22 22:58 Famotidine 20 Mg Tab FEEDTUBE 20 mg BID ERROL Administration Heparin Sodium (Porcine) 5,000 unit 07/08/22 06:00 07/24/22 06:37 Heparin 5,000 Unit/1 Ml Vial SUB-Q 5,000 unit Q12H ERROL Administration Hydrophilic Ointment 1 applic 07/07/22 02:48 Lip Therapy Vaseline TP Q2HR PRN Dry Lips Dextrose 1,000 mls @ 50 mls/hr 07/23/22 01:00 07/23/22 00:27 D5w IV 50 mls/hr DIRECT ERROL Administration Insulin Human Lispro 0 unit 07/09/22 12:00 07/24/22 06:37 Insulin Lispro 100 Unit/Ml SUB-Q Not Given Q6HR ERROL Protocol Levothyroxine Sodium 75 mcg 07/11/22 06:00 07/24/22 06:37 Levothyroxine 75 Mcg Tab FEEDTUBE 75 mcg QAM@0600 ERROL Administration Multi-Ingred Cream/Lotion/Oil/Oint 1 applic 07/07/22 02:48 Mineral Oil/Petrolatum, White Ophth Oint 3.5 Gm OU Q4HR PRN Dry Eye(s) Senna/Docusate Sodium 1 tab 07/07/22 10:00 07/23/22 22:58 Sennosides/Docusate Sodium 8.6/50 Mg Tab FEEDTUBE 1 tab BID ERROL Administration Sodium Chloride 10 ml 07/07/22 13:00 07/23/22 22:58 Sodium Chloride 0.9% 10 Ml Flush Syringe IV Not Given BID ERROL Sodium Chloride 10 ml 07/07/22 12:09 Sodium Chloride 0.9% 10 Ml Flush Syringe IV PRN PRN LINE FLUSH Valproic Acid 250 mg 07/10/22 22:00 07/23/22 22:57 Valproic Acid 250 Mg/5 Ml Oral Liqd FEEDTUBE 250 mg Q12H ERROL Administration Nutrition/Malnutrition Assess - Dietary Evaluation Nutrition/Malnutrition Findings: Nutrition Notes Start: 07/07/22 1 3:24 Freq: Status: Active Protocol: Document 07/17/22 11:13 DAREN (Rec: 07/17/22 11:42 DAREN [id number]) Nutrition Notes Initial or Follow up Reassessment Current Diagnosis Respiratory Failure,Stroke Other Pertinent Diagnosis COVID-19, Metabolic Encephalopathy, Pulmonary Embolism, Dementia. Current Diet TF-Vital AF 1.2 James[place] @ 50 ml/hr (from D 09/02). Labs/Tests 07/17: CO2 36, BUN 18, Crea 0. 4, Glu 139. Pertinent Medications 07/17: Vit D3, Levothyroxine, others nutritionally unremarkable. Height 5 ft 6 in Weight 95.254 kg [place] Body Weight (kg) 59.09 BMI 33.9 Weight change and time frame No body weight change reported in 11 days. Weight Status Obese Subjective/Other Information RD consult for routine F/U on TF tolerance/continuation assessment. TF continues as prescribed, and well tolerated, according to RN notes. Pt continues on Mechanical Ventilation, O2 saturation @ 100%, according to Physical Assessment History notes. Pt presents caries and has missing teeth, according to Physical Assessment History notes. Pt presents bilateral-UE Non- Pitting Edema 2+, according to Physical Assessment History notes. Pt remains incontinent, according to Physical Assessment History notes. Pt presents dysphagia, hemiplegia, and aphasia, according to Physical Assessment History notes. Tracheostomy and PEG-tube placement are being discussed with family, according to Progress notes. Pt is resident of a SNF according to Progress notes. Percent of energy/protein needs met: Prescribed TF-Vital AF 1.2 Jameson @ 50 ml/hr provides for energy/protein needs (1,440 Kcal/90 g) during LOS, 101% Kcal, 91% AA. Burn Absent Trauma Absent GI Symptoms Other Difficulty In Swallowing,Chewing Food Allergy No Skin Integrity/Comment Assessment WNL. 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 Yes Is Patient Ambulatory and/or Out of Bed No REE-([facility]-confined to bed) 1763.208 Kcal/Kg value to use for calculation 15 Approximate Energy Requirements Using 1429 kcal/Kg Calculation Used for Recommendations Kcal/kg Additional Notes Protein: 1.3 g/Kg AdjBW; 99 g/ day. Fluids: 1 ml/Kcal, or as per MD. Nutrition Intervention Nutrition Support: Continue TF-Vital AF 1.2 [place] @ 50 ml/hr. Flush: 75 ml water Q 4 hr, or as per MD. Kcal 1,440 Protein (gm) 90 Carbohydrates (gm) 133 Fat (gm) 65 Fluid (mL) 973 Fiber (gm) 6 % RDI: 101% Kcal; 91% AA. Goal #1 Provide at least 75% of energy /protein needs through Enteral Feeding during LOS. Goal #2 Adjust the dietary intervention to better serve Pt's needs and clinical conditions during LOS. Follow-Up By: 07/24/22 Additional Comments Continue monitoring TF tolerance, ventilation status, PEG-tube placement, and BM.
[2022-07-23] MEDS: VALPROIC ACID 250 MG/5 ML ORAL LIQD FEEDTUBE SCH ×2 (10:45→22:57)
[2022-07-23] MEDS: SENNOSIDES/DOCUSATE SODIUM 8.6/50 MG TAB FEEDTUBE SCH ×2 (10:46→22:58)
--- NOTE | 2022-07-23 13:07 | Progress Note ---
Assessment and Plan 76 y/o female with acute respiratory failure secondary to altered mental status, most likely from electrolyte abnormalities seen on chemistry, found to be COVID positive. 07/23/22: Tube feeds back on. No PSV trials today but will do again tomorrow. Awaiting placement. 07/22/22: Trach and Peg hopefully today. 07/21/22: Did 6 hours of PSV yesterday. Trach and peg tomorrow. Check labs to make sure lytes are stable. 07/20/22: Trach/Peg Friday. Supportive care. 07/19/22: Appreciate Surgery. on Schedule for next week. Free T4 was normal. No current indication for stress dose steroids. Continue supportive care. 07/18/22: Family meeting: Discussed current mental state. Discussed negative work up so far to explain why mental state hasnt improved. Per family here, patient was better than what she is not but I had difficult time placing a time frame as to when that was, maybe May. It does appear that she has had a steady decline mentally and even stopped eating. There were talks prior to her admission here about Peg tube placement. Discussed the idea of trach and peg placement. Also explained to family that trach does not fix any underlying reason as to why the patient's mental state is the way it is. The family wasn't aware that she was brought in for altered mental status, they were told she had bradycardia. Nonetheless, the family as a whole wish to pursue trach and peg placement. Consulted Surgery and hopeful they will see soon. Continue supportive measures and continue daily PSV trials. TSH on admit was 13, will repeat but if T4 is normal, nothing to do. She also is not behaving like myxede ma coma. Guarded prognosis. 07/17/22: steroids end today. Continue daily PSV trials. Will speak with family about next steps as today is day 10 of intubation and it does not appear that conventional extubation is in the near future. 07/16/22: Continue daily PSV trials. Will speak with family tomorrow as patient is not improving enough for conventional extubation, especially with frequent apnic events. Most likely patient will need trach and peg. 07/15/22: mental status is still unchanged. Eyes open but not tracking or following commands. Also going apnic on PSV trials. Most likely will need trach and peg given mental status has not improved. 07/12/22: Negative MRI for acute infarct. Na is normal. Continue to monitor. Daily PSV trials. Has been intubated now for 5 days. 07/11/22: for MRI today. Appreciate renal help, agree with signing off. Attempt daily PSV. Guarded prognosis. 07/10: follow up MRI. Get official EEG read but no status. Continue daily PSV trials. Guarded prognosis 07/09/22: Continue supportive measures. Continue to fix Na, if no improvement in mental state with normal sodium then will pursue MRI. Picc placed today. 07/08/22: No further sedation. 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 Consider neurology consult and may need to obtain MRI. Attempt PSV trials today. needs Picc line placed for intermediate access as patient is a difficult stick. Feed patient and monitor lytes. 1. Discontinue sedation 2. Wean FiO2 for sats >88% and PaO2 greater than 60 3. Agree with fluid resuscitation, patient needs free water 4. Will follow up with family to find out exactly what patient mental status was a facility CCT 31 minutes. Subjective Date of service: 07/23/22 Principal diagnosis: Hypernatremia Interval history: No acute events. Trached and pegged on yesterday. Objective Vital Signs - 12hr 07/23/22 07/23/22 07/23/22 02:00 03:00 03:25 Temperature Pulse Rate 100 H 95 H Respiratory 11 L 12 Rate Blood Pressure 129/67 122/62 O2 Sat by Pulse 99 100 100 Oximetry 07/23/22 07/23/22 07/23/22 04:00 05:00 06:00 Temperature 98 F Pulse Rate 84 92 H 91 H Respiratory 10 L 4 L 9 L Rate Blood Pressure 122/62 108/78 110/68 O2 Sat by Pulse 99 100 98 Oximetry 07/23/22 07/23/22 07/23/22 07:00 07:11 08:00 Temperature 97.7 F Pulse Rate 82 91 H Respiratory 13 13 Rate Blood Pressure 106/62 106/70 O2 Sat by Pulse 100 100 Oximetry 07/23/22 07/23/22 07/23/22 09:00 10:00 11:38 Temperature 97.9 F Pulse Rate 84 82 Respiratory 8 L 10 L Rate Blood Pressure 111/80 99/58 O2 Sat by Pulse 92 100 Oximetry 07/23/22 11:50 Temperature Pulse Rate 87 Respiratory Rate Blood Pressure 115/69 O2 Sat by Pulse 96 Oximetry Constitutional: comatose ENT: other (orally intubated) Neck: supple Effort: normal Ascultation: Bilateral: clear Percussion: Bilateral: not dull Cardiovascular: regular rate and rhythm Gastrointestinal: normoactive bowel sounds, soft Extremities: no cyanosis, no edema Neurologic: unable to assess CBC and BMP: 07/23/22 04:25 07/23/22 04:25 ABG, PT/INR, D-dimer: ABG ABG pH 7.503 pH Units (7.350-7.450) H 07/20/22 05:30 ABG pCO2 42.7 mm Hg 07/20/22 05:30 ABG pO2 99.1 mm Hg (80.0-90.0) H 07/20/22 05:30 ABG O2 Saturation 97.8 % (95.0-99.0) 07/20/22 05:30 PT/INR, D-dimer PT 13.0 Sec. (12.2-14.9) 07/22/22 04:13 INR 0.87 (0.87-1.13) 07/22/22 04:13 D-Dimer 925.80 ng/mlDDU (0-234) H 07/12/22 04:00 Abnormal lab findings: Abnormal Labs 07/07/22 07/07/22 07/07/22 03:17 03:38 03:38 WBC RBC 5.43 H Hgb 18.2 H Hct 54.9 H MCV 101 H MCH 34 H RDW Plt Count 104 L Reeves % (Auto) Seg Neutrophils % Seg Neutrophils # PT 15.0 H APTT 23.0 L D-Dimer ABG pH ABG pO2 ABG HCO3 ABG O2 Saturation ABG Base Excess ABG Hemoglobin Oxyhemoglobin Sodium Potassium Chloride Carbon Dioxide BUN Creatinine Glucose POC Glucose Lactic Acid Uric Acid Calcium Magnesium Ferritin Total Bilirubin AST Lactate Dehydrogenase Total Creatine Kinase C-Reactive Protein Total Protein Albumin TSH Free T3 Index Urine WBC (Auto) 7.0 H Urine Creatinine Salicylates Acetaminophen Valproic Acid SARS-CoV-2 (PCR) 07/07/22 07/07/22 07/07/22 03:38 03:38 03:38 WBC RBC Hgb Hct MCV MCH RDW Plt Count Reeves % (Auto) Seg Neutrophils % Seg Neutrophils # PT APTT D-Dimer ABG pH ABG pO2 ABG HCO3 ABG O2 Saturation ABG Base Excess ABG Hemoglobin Oxyhemoglobin Sodium Potassium Chloride Carbon Dioxide BUN Creatinine Glucose POC Glucose Lactic Acid Uric Acid Calcium Magnesium 3.30 H Ferritin Total Bilirubin AST Lactate Dehydrogenase Total Creatine Kinase 1826 H C-Reactive Protein Total Protein Albumin TSH Free T3 Index Urine WBC (Auto) Urine Creatinine Salicylates < 0.3 L Acetaminophen 5.0 L Valproic Acid 7.0 L SARS-CoV-2 (PCR) 07/07/22 07/07/22 07/07/22 04:17 04:17 04:17 WBC RBC Hgb Hct MCV MCH RDW Plt Count Reeves % (Auto) Seg Neutrophils % Seg Neutrophils # PT APTT D-Dimer ABG pH ABG pO2 ABG HCO3 ABG O2 Saturation ABG Base Excess ABG Hemoglobin Oxyhemoglobin Sodium 168 H* Potassium 3.2 L Chloride 122.2 H Carbon Dioxide BUN 52 H Creatinine Glucose 158 H POC Glucose Lactic Acid 3.50 H* Uric Acid Calcium 10.9 H Magnesium Ferritin Total Bilirubin 1.40 H AST 47 H Lactate Dehydrogenase Total Creatine Kinase C-Reactive Protein Total Protein Albumin TSH 12.790 H Free T3 Index Urine WBC (Auto) Urine Creatinine Salicylates Acetaminophen Valproic Acid SARS-CoV-2 (PCR) 07/07/22 07/07/22 07/07/22 04:17 07:43 09:35 WBC RBC Hgb Hct MCV MCH RDW Plt Count Reeves % (Auto) Seg Neutrophils % Seg Neutrophils # PT APTT D-Dimer ABG pH ABG pO2 377.3 H ABG HCO3 ABG O2 Saturation 99.6 H ABG Base Excess -2.5 L ABG Hemoglobin Oxyhemoglobin Sodium Potassium Chloride Carbon Dioxide BUN Creatinine Glucose POC Glucose Lactic Acid 6.30 H* Uric Acid 13.5 H Calcium Magnesium Ferritin Total Bilirubin AST Lactate Dehydrogenase Total Creatine Kinase C-Reactive Protein Total Protein Albumin TSH Free T3 Index Urine WBC (Auto) Urine Creatinine Salicylates Acetaminophen Valproic Acid SARS-CoV-2 (PCR) 07/07/22 07/07/22 07/07/22 15:00 16:00 16:00 WBC RBC Hgb Hct MCV MCH RDW Plt Count Reeves % (Auto) Seg Neutrophils % Seg Neutrophils # PT APTT D-Dimer ABG pH ABG pO2 ABG HCO3 ABG O2 Saturation ABG Base Excess ABG Hemoglobin Oxyhemoglobin Sodium 166 H* Potassium Chloride 124.8 H Carbon Dioxide 20 L BUN 41 H Creatinine Glucose 157 H POC Glucose Lactic Acid 7.00 H* Uric Acid Calcium Magnesium Ferritin Total Bilirubin AST 81 H Lactate Dehydrogenase Total Creatine Kinase C-Reactive Protein Total Protein Albumin TSH Free T3 Index Urine WBC (Auto) Urine Creatinine Salicylates Acetaminophen Valproic Acid SARS-CoV-2 (PCR) Positive A 07/07/22 07/07/22 07/07/22 16:45 23:42 23:42 WBC RBC Hgb Hct MCV MCH RDW Plt Count Reeves % (Auto) Seg Neutrophils % Seg Neutrophils # PT APTT D-Dimer ABG pH ABG pO2 ABG HCO3 ABG O2 Saturation ABG Base Excess ABG Hemoglobin Oxyhemoglobin Sodium 165 H* Potassium 3.0 L Chloride 122.8 H Carbon Dioxide BUN 38 H Creatinine Glucose 232 H POC Glucose Lactic Acid 5.60 H* Uric Acid Calcium Magnesium Ferritin Total Bilirubin AST Lactate Dehydrogenase Total Creatine Kinase C-Reactive Protein Total Protein Albumin TSH Free T3 Index Urine WBC (Auto) Urine Creatinine 92.9 H Salicylates Acetaminophen Valproic Acid SARS-CoV-2 (PCR) 07/07/22 07/07/22 07/08/22 Unknown Unknown 05:30 WBC RBC Hgb Hct MCV MCH RDW Plt Count Reeves % (Auto) Seg Neutrophils % Seg Neutrophils # PT APTT D-Dimer ABG pH 7.553 H 7.473 H ABG pO2 61.7 L 121.7 H ABG HCO3 ABG O2 Saturation 94.7 L ABG Base Excess 4.3 H ABG Hemoglobin 18.0 H Oxyhemoglobin 93.1 L Sodium 163 H* Potassium 6.3 H* D Chloride 123.7 H Carbon Dioxide BUN 42 H Creatinine Glucose 169 H POC Glucose Lactic Acid Uric Acid Calcium Magnesium Ferritin Total Bilirubin AST Lactate Dehydrogenase Total Creatine Kinase C-Reactive Protein Total Protein Albumin TSH Free T3 Index Urine WBC (Auto) Urine Creatinine Salicylates Acetaminophen Valproic Acid SARS-CoV-2 (PCR) 07/08/22 07/08/22 07/08/22 05:36 11:21 14:54 WBC 11.1 H RBC Hgb Hct MCV 101 H MCH 33 H RDW Plt Count 69 L Reeves % (Auto) Seg Neutrophils % 82.0 H Seg Neutrophils # 9.1 H PT APTT D-Dimer ABG pH ABG pO2 ABG HCO3 ABG O2 Saturation ABG Base Excess ABG Hemoglobin Oxyhemoglobin Sodium Potassium Chloride Carbon Dioxide BUN Creatinine Glucose POC Glucose 174 H 148 H Lactic Acid Uric Acid Calcium Magnesium Ferritin Total Bilirubin AST Lactate Dehydrogenase Total Creatine Kinase C-Reactive Protein Total Protein Albumin TSH Free T3 Index Urine WBC (Auto) Urine Creatinine Salicylates Acetaminophen Valproic Acid SARS-CoV-2 (PCR) 07/08/22 07/08/22 07/08/22 14:54 14:54 14:54 WBC RBC Hgb Hct MCV MCH RDW Plt Count Reeves % (Auto) Seg Neutrophils % Seg Neutrophils # PT APTT D-Dimer ABG pH ABG pO2 ABG HCO3 ABG O2 Saturation ABG Base Excess ABG Hemoglobin Oxyhemoglobin Sodium 163 H* Potassium 2.9 L* Chloride 123.7 H Carbon Dioxide BUN 30 H Creatinine Glucose 161 H POC Glucose Lactic Acid 6.10 H* Uric Acid Calcium Magnesium Ferritin Total Bilirubin AST 69 H Lactate Dehydrogenase Total Creatine Kinase 2335 H C-Reactive Protein Total Protein 5.6 L D Albumin 3.1 L TSH Free T3 Index Urine WBC (Auto) Urine Creatinine Salicylates Acetaminophen Valproic Acid SARS-CoV-2 (PCR) 07/08/22 07/08/22 07/08/22 14:54 14:54 14:54 WBC RBC Hgb Hct MCV MCH RDW Plt Count Reeves % (Auto) Seg Neutrophils % Seg Neutrophils # PT APTT D-Dimer 499.72 H ABG pH ABG pO2 ABG HCO3 ABG O2 Saturation ABG Base Excess ABG Hemoglobin Oxyhemoglobin Sodium Potassium Chloride Carbon Dioxide BUN Creatinine Glucose POC Glucose Lactic Acid Uric Acid Calcium Magnesium Ferritin 722.1 H Total Bilirubin AST Lactate Dehydrogenase 455 H Total Creatine Kinase C-Reactive Protein 1.60 H Total Protein Albumin TSH Free T3 Index Urine WBC (Auto) Urine Creatinine Salicylates Acetaminophen Valproic Acid SARS-CoV-2 (PCR) 07/08/22 07/08/22 07/09/22 19:13 19:53 00:09 WBC RBC Hgb Hct MCV MCH RDW Plt Count Reeves % (Auto) Seg Neutrophils % Seg Neutrophils # PT APTT D-Dimer ABG pH ABG pO2 ABG HCO3 ABG O2 Saturation ABG Base Excess ABG Hemoglobin Oxyhemoglobin Sodium 160 H Potassium 3.5 L D Chloride 122.0 H Carbon Dioxide 20 L BUN 28 H Creatinine Glucose 151 H POC Glucose 138 H Lactic Acid 5.70 H* Uric Acid Calcium Magnesium Ferritin Total Bilirubin AST Lactate Dehydrogenase Total Creatine Kinase C-Reactive Protein Total Protein Albumin TSH Free T3 Index Urine WBC (Auto) Urine Creatinine Salicylates Acetaminophen Valproic Acid SARS-CoV-2 (PCR) 07/09/22 07/09/22 07/09/22 00:45 03:21 03:21 WBC RBC Hgb Hct MCV MCH RDW Plt Count Reeves % (Auto) Seg Neutrophils % Seg Neutrophils # PT APTT D-Dimer ABG pH ABG pO2 ABG HCO3 ABG O2 Saturation ABG Base Excess ABG Hemoglobin Oxyhemoglobin Sodium 158 H 157 H Potassium Chloride 124.2 H 125.0 H Carbon Dioxide 20 L 20 L BUN 25 H 24 H Creatinine Glucose 147 H 169 H POC Glucose Lactic Acid 4.70 H* Uric Acid Calcium Magnesium Ferritin Total Bilirubin AST 81 H Lactate Dehydrogenase Total Creatine Kinase C-Reactive Protein Total Protein 5.7 L Albumin 2.8 L TSH Free T3 Index Urine WBC (Auto) Urine Creatinine Salicylates Acetaminophen Valproic Acid SARS-CoV-2 (PCR) 07/09/22 07/09/22 07/09/22 04:40 05:35 08:14 WBC RBC Hgb Hct MCV 102 H MCH 33 H RDW Plt Count 74 L Reeves % (Auto) Seg Neutrophils % Seg Neutrophils # PT APTT D-Dimer ABG pH ABG pO2 172.1 H ABG HCO3 ABG O2 Saturation 99.1 H ABG Base Excess -2.8 L ABG Hemoglobin Oxyhemoglobin Sodium Potassium Chloride Carbon Dioxide BUN Creatinine Glucose POC Glucose 108 H Lactic Acid Uric Acid Calcium Magnesium Ferritin Total Bilirubin AST Lactate Dehydrogenase Total Creatine Kinase C-Reactive Protein Total Protein Albumin TSH Free T3 Index Urine WBC (Auto) Urine Creatinine Salicylates Acetaminophen Valproic Acid SARS-CoV-2 (PCR) 07/09/22 07/09/22 07/09/22 11:16 11:27 16:20 WBC RBC Hgb Hct MCV MCH RDW Plt Count Reeves % (Auto) Seg Neutrophils % Seg Neutrophils # PT APTT D-Dimer ABG pH ABG pO2 ABG HCO3 ABG O2 Saturation ABG Base Excess ABG Hemoglobin Oxyhemoglobin Sodium 155 H Potassium Chloride 121.3 H Carbon Dioxide BUN 21 H Creatinine Glucose 170 H POC Glucose 173 H 190 H Lactic Acid Uric Acid Calcium Magnesium Ferritin Total Bilirubin AST Lactate Dehydrogenase Total Creatine Kinase C-Reactive Protein Total Protein Albumin TSH Free T3 Index Urine WBC (Auto) Urine Creatinine Salicylates Acetaminophen Valproic Acid SARS-CoV-2 (PCR) 07/09/22 07/10/22 07/10/22 17:16 00:04 04:21 WBC RBC Hgb Hct MCV MCH RDW Plt Count Reeves % (Auto) Seg Neutrophils % Seg Neutrophils # PT APTT D-Dimer ABG pH ABG pO2 ABG HCO3 ABG O2 Saturation ABG Base Excess ABG Hemoglobin Oxyhemoglobin Sodium 149 H 150 H Potassium Chloride 115.6 H 115.0 H Carbon Dioxide BUN 18 H Creatinine 0.5 L Glucose 207 H 178 H POC Glucose 180 H Lactic Acid Uric Acid Calcium 7.9 L Magnesium Ferritin Total Bilirubin AST 89 H Lactate Dehydrogenase 431 H Total Creatine Kinase C-Reactive Protein Total Protein 4.9 L Albumin 2.5 L TSH Free T3 Index Urine WBC (Auto) Urine Creatinine Salicylates Acetaminophen Valproic Acid SARS-CoV-2 (PCR) 07/10/22 07/10/22 07/10/22 04:21 04:21 04:21 WBC 11.8 H RBC 3.52 L Hgb Hct MCV 99 H MCH 33 H RDW Plt Count 67 L Reeves % (Auto) Seg Neutrophils % Seg Neutrophils # PT APTT D-Dimer 585.71 H ABG pH ABG pO2 ABG HCO3 ABG O2 Saturation ABG Base Excess ABG Hemoglobin Oxyhemoglobin Sodium Potassium Chloride Carbon Dioxide BUN Creatinine Glucose POC Glucose Lactic Acid Uric Acid Calcium Magnesium Ferritin 631.3 H Total Bilirubin AST Lactate Dehydrogenase Total Creatine Kinase C-Reactive Protein Total Protein Albumin TSH Free T3 Index Urine WBC (Auto) Urine Creatinine Salicylates Acetaminophen Valproic Acid SARS-CoV-2 (PCR) 07/10/22 07/10/22 07/10/22 04:21 04:55 05:26 WBC RBC Hgb Hct MCV MCH RDW Plt Count Reeves % (Auto) Seg Neutrophils % Seg Neutrophils # PT APTT D-Dimer ABG pH ABG pO2 76.8 L ABG HCO3 ABG O2 Saturation ABG Base Excess ABG Hemoglobin 10.4 L Oxyhemoglobin 94.5 L Sodium Potassium Chloride Carbon Dioxide BUN Creatinine Glucose POC Glucose 147 H Lactic Acid 2.50 H* Uric Acid Calcium Magnesium Ferritin Total Bilirubin AST Lactate Dehydrogenase Total Creatine Kinase C-Reactive Protein Total Protein Albumin TSH Free T3 Index Urine WBC (Auto) Urine Creatinine Salicylates Acetaminophen Valproic Acid SARS-CoV-2 (PCR) 07/10/22 07/10/22 07/10/22 08:24 11:31 12:53 WBC RBC Hgb Hct MCV MCH RDW Plt Count Reeves % (Auto) Seg Neutrophils % Seg Neutrophils # PT APTT D-Dimer ABG pH ABG pO2 ABG HCO3 ABG O2 Saturation ABG Base Excess ABG Hemoglobin Oxyhemoglobin Sodium Potassium Chloride 110.9 H Carbon Dioxide BUN Creatinine 0.5 L Glucose 200 H POC Glucose 166 H Lactic Acid 2.10 H* Uric Acid Calcium 8.3 L Magnesium Ferritin Total Bilirubin AST Lactate Dehydrogenase Total Creatine Kinase C-Reactive Protein Total Protein Albumin TSH Free T3 Index Urine WBC (Auto) Urine Creatinine Salicylates Acetaminophen Valproic Acid SARS-CoV-2 (PCR) 07/10/22 07/10/22 07/10/22 17:37 18:53 23:30 WBC RBC Hgb Hct MCV MCH RDW Plt Count Reeves % (Auto) Seg Neutrophils % Seg Neutrophils # PT APTT D-Dimer ABG pH ABG pO2 ABG HCO3 ABG O2 Saturation ABG Base Excess ABG Hemoglobin Oxyhemoglobin Sodium Potassium Chloride 109.5 H 110.2 H Carbon Dioxide BUN Creatinine 0.5 L 0.5 L Glucose 243 H 208 H POC Glucose 237 H Lactic Acid Uric Acid Calcium 8.1 L 8.1 L Magnesium Ferritin Total Bilirubin AST Lactate Dehydrogenase Total Creatine Kinase C-Reactive Protein Total Protein Albumin TSH Free T3 Index Urine WBC (Auto) Urine Creatinine Salicylates Acetaminophen Valproic Acid SARS-CoV-2 (PCR) 07/10/22 07/11/22 07/11/22 23:57 04:00 04:15 WBC 11.2 H RBC Hgb Hct MCV 99 H MCH RDW Plt Count 73 L Reeves % (Auto) Seg Neutrophils % Seg Neutrophils # PT APTT D-Dimer ABG pH ABG pO2 107.4 H ABG HCO3 ABG O2 Saturation ABG Base Excess ABG Hemoglobin Oxyhemoglobin Sodium Potassium Chloride Carbon Dioxide BUN Creatinine Glucose POC Glucose 195 H Lactic Acid Uric Acid Calcium Magnesium Ferritin Total Bilirubin AST Lactate Dehydrogenase Total Creatine Kinase C-Reactive Protein Total Protein Albumin TSH Free T3 Index Urine WBC (Auto) Urine Creatinine Salicylates Acetaminophen Valproic Acid SARS-CoV-2 (PCR) 07/11/22 07/11/22 07/11/22 05:40 05:40 06:06 WBC RBC Hgb Hct MCV MCH RDW Plt Count Reeves % (Auto) Seg Neutrophils % Seg Neutrophils # PT APTT D-Dimer ABG pH ABG pO2 ABG HCO3 ABG O2 Saturation ABG Base Excess ABG Hemoglobin Oxyhemoglobin Sodium Potassium Chloride 109.8 H Carbon Dioxide BUN Creatinine 0.5 L Glucose 160 H POC Glucose 145 H Lactic Acid Uric Acid Calcium 8.3 L Magnesium Ferritin Total Bilirubin AST Lactate Dehydrogenase Total Creatine Kinase 1745 H C-Reactive Protein Total Protein Albumin TSH Free T3 Index Urine WBC (Auto) Urine Creatinine Salicylates Acetaminophen Valproic Acid SARS-CoV-2 (PCR) 07/11/22 07/11/22 07/11/22 11:55 11:59 17:44 WBC RBC Hgb Hct MCV MCH RDW Plt Count Reeves % (Auto) Seg Neutrophils % Seg Neutrophils # PT APTT D-Dimer ABG pH ABG pO2 ABG HCO3 ABG O2 Saturation ABG Base Excess ABG Hemoglobin Oxyhemoglobin Sodium Potassium Chloride 107.8 H Carbon Dioxide BUN Creatinine 0.5 L Glucose 150 H POC Glucose 150 H 182 H Lactic Acid Uric Acid Calcium 8.2 L Magnesium Ferritin Total Bilirubin AST Lactate Dehydrogenase Total Creatine Kinase C-Reactive Protein Total Protein Albumin TSH Free T3 Index Urine WBC (Auto) Urine Creatinine Salicylates Acetaminophen Valproic Acid SARS-CoV-2 (PCR) 07/11/22 07/12/22 07/12/22 17:50 00:10 00:12 WBC RBC Hgb Hct MCV MCH RDW Plt Count Reeves % (Auto) Seg Neutrophils % Seg Neutrophils # PT APTT D-Dimer ABG pH ABG pO2 ABG HCO3 ABG O2 Saturation ABG Base Excess ABG Hemoglobin Oxyhemoglobin Sodium Potassium Chloride 108.4 H Carbon Dioxide BUN Creatinine 0.5 L 0.4 L Glucose 191 H 163 H POC Glucose 154 H Lactic Acid Uric Acid Calcium 8.2 L 7.9 L Magnesium Ferritin Total Bilirubin AST Lactate Dehydrogenase Total Creatine Kinase C-Reactive Protein Total Protein Albumin TSH Free T3 Index Urine WBC (Auto) Urine Creatinine Salicylates Acetaminophen Valproic Acid SARS-CoV-2 (PCR) 07/12/22 07/12/22 07/12/22 04:00 04:00 04:00 WBC RBC Hgb Hct MCV MCH RDW Plt Count Reeves % (Auto) Seg Neutrophils % Seg Neutrophils # PT APTT D-Dimer 925.80 H ABG pH ABG pO2 ABG HCO3 ABG O2 Saturation ABG Base Excess ABG Hemoglobin Oxyhemoglobin Sodium Potassium Chloride Carbon Dioxide BUN Creatinine Glucose POC Glucose Lactic Acid Uric Acid Calcium Magnesium Ferritin 519.5 H Total Bilirubin AST Lactate Dehydrogenase 444 H Total Creatine Kinase C-Reactive Protein Total Protein Albumin TSH Free T3 Index Urine WBC (Auto) Urine Creatinine Salicylates Acetaminophen Valproic Acid SARS-CoV-2 (PCR) 07/12/22 07/12/22 07/12/22 04:00 05:00 05:03 WBC 11.7 H RBC 3.33 L Hgb Hct MCV 99 H MCH 33 H RDW Plt Count 68 L Reeves % (Auto) Seg Neutrophils % Seg Neutrophils # PT APTT D-Dimer ABG pH 7.453 H ABG pO2 107.9 H ABG HCO3 27.9 H ABG O2 Saturation ABG Base Excess 3.7 H ABG Hemoglobin 10.9 L Oxyhemoglobin Sodium Potassium Chloride Carbon Dioxide BUN Creatinine Glucose POC Glucose 174 H Lactic Acid Uric Acid Calcium Magnesium Ferritin Total Bilirubin AST Lactate Dehydrogenase Total Creatine Kinase C-Reactive Protein Total Protein Albumin TSH Free T3 Index Urine WBC (Auto) Urine Creatinine Salicylates Acetaminophen Valproic Acid SARS-CoV-2 (PCR) 07/12/22 07/12/22 07/12/22 12:15 17:18 23:14 WBC RBC Hgb Hct MCV MCH RDW Plt Count Reeves % (Auto) Seg Neutrophils % Seg Neutrophils # PT APTT D-Dimer ABG pH ABG pO2 ABG HCO3 ABG O2 Saturation ABG Base Excess ABG Hemoglobin Oxyhemoglobin Sodium Potassium Chloride Carbon Dioxide BUN Creatinine Glucose POC Glucose 154 H 154 H 167 H Lactic Acid Uric Acid Calcium Magnesium Ferritin Total Bilirubin AST Lactate Dehydrogenase Total Creatine Kinase C-Reactive Protein Total Protein Albumin TSH Free T3 Index Urine WBC (Auto) Urine Creatinine Salicylates Acetaminophen Valproic Acid SARS-CoV-2 (PCR) 07/13/22 07/13/22 07/13/22 04:00 04:10 05:14 WBC RBC 3.17 L Hgb Hct MCV 98 H MCH 34 H RDW Plt Count 75 L Reeves % (Auto) Seg Neutrophils % Seg Neutrophils # PT APTT D-Dimer ABG pH ABG pO2 ABG HCO3 ABG O2 Saturation ABG Base Excess ABG Hemoglobin Oxyhemoglobin Sodium Potassium Chloride Carbon Dioxide BUN Creatinine 0.4 L Glucose 136 H POC Glucose 140 H Lactic Acid Uric Acid Calcium Magnesium Ferritin Total Bilirubin AST Lactate Dehydrogenase Total Creatine Kinase C-Reactive Protein Total Protein Albumin TSH Free T3 Index Urine WBC (Auto) Urine Creatinine Salicylates Acetaminophen Valproic Acid SARS-CoV-2 (PCR) 07/13/22 07/13/22 07/13/22 12:03 14:25 17:19 WBC RBC Hgb Hct MCV MCH RDW Plt Count Reeves % (Auto) Seg Neutrophils % Seg Neutrophils # PT APTT D-Dimer ABG pH 7.478 H ABG pO2 118.1 H ABG HCO3 28.2 H ABG O2 Saturation ABG Base Excess 4.5 H ABG Hemoglobin Oxyhemoglobin Sodium Potassium Chloride Carbon Dioxide BUN Creatinine Glucose POC Glucose 193 H 189 H Lactic Acid Uric Acid Calcium Magnesium Ferritin Total Bilirubin AST Lactate Dehydrogenase Total Creatine Kinase C-Reactive Protein Total Protein Albumin TSH Free T3 Index Urine WBC (Auto) Urine Creatinine Salicylates Acetaminophen Valproic Acid SARS-CoV-2 (PCR) 07/13/22 07/13/22 07/14/22 23:52 Unknown 06:18 WBC RBC Hgb Hct MCV MCH RDW Plt Count Reeves % (Auto) Seg Neutrophils % Seg Neutrophils # PT APTT D-Dimer ABG pH 7.465 H ABG pO2 128.8 H ABG HCO3 29.0 H ABG O2 Saturation ABG Base Excess 4.9 H ABG Hemoglobin 10.3 L Oxyhemoglobin Sodium Potassium Chloride Carbon Dioxide BUN Creatinine Glucose POC Glucose 174 H 167 H Lactic Acid Uric Acid Calcium Magnesium Ferritin Total Bilirubin AST Lactate Dehydrogenase Total Creatine Kinase C-Reactive Protein Total Protein Albumin TSH Free T3 Index Urine WBC (Auto) Urine Creatinine Salicylates Acetaminophen Valproic Acid SARS-CoV-2 (PCR) 07/14/22 07/14/22 07/15/22 11:34 17:20 00:25 WBC RBC Hgb Hct MCV MCH RDW Plt Count Reeves % (Auto) Seg Neutrophils % Seg Neutrophils # PT APTT D-Dimer ABG pH ABG pO2 ABG HCO3 ABG O2 Saturation ABG Base Excess ABG Hemoglobin Oxyhemoglobin Sodium Potassium Chloride Carbon Dioxide BUN Creatinine Glucose POC Glucose 187 H 221 H 172 H Lactic Acid Uric Acid Calcium Magnesium Ferritin Total Bilirubin AST Lactate Dehydrogenase Total Creatine Kinase C-Reactive Protein Total Protein Albumin TSH Free T3 Index Urine WBC (Auto) Urine Creatinine Salicylates Acetaminophen Valproic Acid SARS-CoV-2 (PCR) 07/15/22 07/15/2222 04:00 04:00 05:49 WBC 11.4 H RBC 3.13 L Hgb Hct MCV 98 H MCH 33 H RDW Plt Count 98 L Reeves % (Auto) Seg Neutrophils % Seg Neutrophils # PT APTT D-Dimer ABG pH ABG pO2 ABG HCO3 ABG O2 Saturation ABG Base Excess ABG Hemoglobin Oxyhemoglobin Sodium Potassium Chloride Carbon Dioxide 34 H BUN Creatinine 0.4 L Glucose 126 H POC Glucose 143 H Lactic Acid Uric Acid Calcium Magnesium Ferritin Total Bilirubin AST Lactate Dehydrogenase Total Creatine Kinase C-Reactive Protein Total Protein Albumin TSH Free T3 Index Urine WBC (Auto) Urine Creatinine Salicylates Acetaminophen Valproic Acid SARS-CoV-2 (PCR) 07/15/22 07/15/22 07/16/22 11:19 16:16 00:19 WBC RBC Hgb Hct MCV MCH RDW Plt Count Reeves % (Auto) Seg Neutrophils % Seg Neutrophils # PT APTT D-Dimer ABG pH ABG pO2 ABG HCO3 ABG O2 Saturation ABG Base Excess ABG Hemoglobin Oxyhemoglobin Sodium Potassium Chloride Carbon Dioxide BUN Creatinine Glucose POC Glucose 158 H 227 H 153 H Lactic Acid Uric Acid Calcium Magnesium Ferritin Total Bilirubin AST Lactate Dehydrogenase Total Creatine Kinase C-Reactive Protein Total Protein Albumin TSH Free T3 Index Urine WBC (Auto) Urine Creatinine Salicylates Acetaminophen Valproic Acid SARS-CoV-2 (PCR) 07/16/22 07/16/22 07/16/22 04:20 04:20 11:28 WBC RBC 3.16 L Hgb Hct MCV 99 H MCH 33 H RDW Plt Count 101 L Reeves % (Auto) Seg Neutrophils % Seg Neutrophils # PT APTT D-Dimer ABG pH ABG pO2 ABG HCO3 ABG O2 Saturation ABG Base Excess ABG Hemoglobin Oxyhemoglobin Sodium Potassium Chloride Carbon Dioxide 36 H BUN 18 H Creatinine 0.4 L Glucose 139 H POC Glucose 158 H Lactic Acid Uric Acid Calcium Magnesium Ferritin Total Bilirubin AST Lactate Dehydrogenase Total Creatine Kinase C-Reactive Protein Total Protein Albumin TSH Free T3 Index Urine WBC (Auto) Urine Creatinine Salicylates Acetaminophen Valproic Acid SARS-CoV-2 (PCR) 07/16/22 07/17/22 07/17/22 16:30 00:07 05:46 WBC RBC Hgb Hct MCV MCH RDW Plt Count Reeves % (Auto) Seg Neutrophils % Seg Neutrophils # PT APTT D-Dimer ABG pH ABG pO2 ABG HCO3 ABG O2 Saturation ABG Base Excess ABG Hemoglobin Oxyhemoglobin Sodium Potassium Chloride Carbon Dioxide BUN Creatinine Glucose POC Glucose 201 H 139 H 123 H Lactic Acid Uric Acid Calcium Magnesium Ferritin Total Bilirubin AST Lactate Dehydrogenase Total Creatine Kinase C-Reactive Protein Total Protein Albumin TSH Free T3 Index Urine WBC (Auto) Urine Creatinine Salicylates Acetaminophen Valproic Acid SARS-CoV-2 (PCR) 07/17/22 07/17/22 07/17/22 13:30 17:51 23:49 WBC RBC Hgb Hct MCV MCH RDW Plt Count Reeves % (Auto) Seg Neutrophils % Seg Neutrophils # PT APTT D-Dimer ABG pH ABG pO2 ABG HCO3 ABG O2 Saturation ABG Base Excess ABG Hemoglobin Oxyhemoglobin Sodium Potassium Chloride Carbon Dioxide BUN Creatinine Glucose POC Glucose 185 H 219 H 133 H Lactic Acid Uric Acid Calcium Magnesium Ferritin Total Bilirubin AST Lactate Dehydrogenase Total Creatine Kinase C-Reactive Protein Total Protein Albumin TSH Free T3 Index Urine WBC (Auto) Urine Creatinine Salicylates Acetaminophen Valproic Acid SARS-CoV-2 (PCR) 07/18/22 07/18/22 07/18/22 04:00 04:00 04:00 WBC 12.2 H RBC 3.34 L Hgb Hct MCV 100 H MCH 33 H RDW Plt Count 113 L Reeves % (Auto) Seg Neutrophils % 77.3 H Seg Neutrophils # 9.4 H PT APTT D-Dimer ABG pH 7.508 H ABG pO2 115.9 H ABG HCO3 33.4 H ABG O2 Saturation ABG Base Excess 9.4 H ABG Hemoglobin 11.7 L Oxyhemoglobin Sodium Potassium Chloride Carbon Dioxide 35 H BUN Creatinine 0.4 L Glucose 130 H POC Glucose Lactic Acid Uric Acid Calcium Magnesium Ferritin Total Bilirubin AST Lactate Dehydrogenase Total Creatine Kinase C-Reactive Protein Total Protein Albumin TSH Free T3 Index Urine WBC (Auto) Urine Creatinine Salicylates Acetaminophen Valproic Acid SARS-CoV-2 (PCR) 07/18/22 07/18/22 07/18/22 04:42 12:31 12:31 WBC RBC Hgb Hct MCV MCH RDW Plt Count Reeves % (Auto) Seg Neutrophils % Seg Neutrophils # PT APTT D-Dimer ABG pH ABG pO2 ABG HCO3 ABG O2 Saturation ABG Base Excess ABG Hemoglobin Oxyhemoglobin Sodium Potassium Chloride Carbon Dioxide BUN Creatinine Glucose POC Glucose 134 H Lactic Acid Uric Acid Calcium Magnesium Ferritin Total Bilirubin AST Lactate Dehydrogenase Total Creatine Kinase C-Reactive Protein Total Protein Albumin TSH 9.750 H Free T3 Index 1.7 L Urine WBC (Auto) Urine Creatinine Salicylates Acetaminophen Valproic Acid SARS-CoV-2 (PCR) 07/18/22 07/18/22 07/19/22 12:33 17:39 00:43 WBC RBC Hgb Hct MCV MCH RDW Plt Count Reeves % (Auto) Seg Neutrophils % Seg Neutrophils # PT APTT D-Dimer ABG pH ABG pO2 ABG HCO3 ABG O2 Saturation ABG Base Excess ABG Hemoglobin Oxyhemoglobin Sodium Potassium Chloride Carbon Dioxide BUN Creatinine Glucose POC Glucose 172 H 164 H 132 H Lactic Acid Uric Acid Calcium Magnesium Ferritin Total Bilirubin AST Lactate Dehydrogenase Total Creatine Kinase C-Reactive Protein Total Protein Albumin TSH Free T3 Index Urine WBC (Auto) Urine Creatinine Salicylates Acetaminophen Valproic Acid SARS-CoV-2 (PCR) 07/19/22 07/19/22 07/19/22 05:08 12:30 17:42 WBC RBC Hgb Hct MCV MCH RDW Plt Count Reeves % (Auto) Seg Neutrophils % Seg Neutrophils # PT APTT D-Dimer ABG pH ABG pO2 ABG HCO3 ABG O2 Saturation ABG Base Excess ABG Hemoglobin Oxyhemoglobin Sodium Potassium Chloride Carbon Dioxide BUN Creatinine Glucose POC Glucose 143 H 159 H 139 H Lactic Acid Uric Acid Calcium Magnesium Ferritin Total Bilirubin AST Lactate Dehydrogenase Total Creatine Kinase C-Reactive Protein Total Protein Albumin TSH Free T3 Index Urine WBC (Auto) Urine Creatinine Salicylates Acetaminophen Valproic Acid SARS-CoV-2 (PCR) 07/19/22 07/20/22 07/20/22 23:26 05:30 06:03 WBC RBC Hgb Hct MCV MCH RDW Plt Count Reeves % (Auto) Seg Neutrophils % Seg Neutrophils # PT APTT D-Dimer ABG pH 7.503 H ABG pO2 99.1 H ABG HCO3 32.8 H ABG O2 Saturation ABG Base Excess 8.8 H ABG Hemoglobin 9.7 L Oxyhemoglobin Sodium Potassium Chloride Carbon Dioxide BUN Creatinine Glucose POC Glucose 144 H 146 H Lactic Acid Uric Acid Calcium Magnesium Ferritin Total Bilirubin AST Lactate Dehydrogenase Total Creatine Kinase C-Reactive Protein Total Protein Albumin TSH Free T3 Index Urine WBC (Auto) Urine Creatinine Salicylates Acetaminophen Valproic Acid SARS-CoV-2 (PCR) 07/20/22 07/20/22 07/20/22 12:15 17:24 23:44 WBC RBC Hgb Hct MCV MCH RDW Plt Count Reeves % (Auto) Seg Neutrophils % Seg Neutrophils # PT APTT D-Dimer ABG pH ABG pO2 ABG HCO3 ABG O2 Saturation ABG Base Excess ABG Hemoglobin Oxyhemoglobin Sodium Potassium Chloride Carbon Dioxide BUN Creatinine Glucose POC Glucose 138 H 135 H 131 H Lactic Acid Uric Acid Calcium Magnesium Ferritin Total Bilirubin AST Lactate Dehydrogenase Total Creatine Kinase C-Reactive Protein Total Protein Albumin TSH Free T3 Index Urine WBC (Auto) Urine Creatinine Salicylates Acetaminophen Valproic Acid SARS-CoV-2 (PCR) 07/21/22 07/21/22 07/21/22 04:00 04:00 05:13 WBC RBC 2.92 L Hgb 9.6 L Hct 29.0 L MCV 99 H MCH 33 H RDW 15.6 H Plt Count 136 L Reeves % (Auto) Seg Neutrophils % Seg Neutrophils # PT APTT D-Dimer ABG pH ABG pO2 ABG HCO3 ABG O2 Saturation ABG Base Excess ABG Hemoglobin Oxyhemoglobin Sodium Potassium Chloride Carbon Dioxide 32 H BUN Creatinine 0.3 L Glucose 133 H POC Glucose 142 H Lactic Acid Uric Acid Calcium 8.3 L Magnesium Ferritin Total Bilirubin AST Lactate Dehydrogenase Total Creatine Kinase C-Reactive Protein Total Protein Albumin TSH Free T3 Index Urine WBC (Auto) Urine Creatinine Salicylates Acetaminophen Valproic Acid SARS-CoV-2 (PCR) 07/21/22 07/21/22 07/21/22 06:16 11:48 16:08 WBC RBC Hgb Hct MCV MCH RDW Plt Count Reeves % (Auto) Seg Neutrophils % Seg Neutrophils # PT APTT D-Dimer ABG pH ABG pO2 ABG HCO3 ABG O2 Saturation ABG Base Excess ABG Hemoglobin Oxyhemoglobin Sodium Potassium Chloride Carbon Dioxide BUN Creatinine Glucose POC Glucose 149 H 124 H 139 H Lactic Acid Uric Acid Calcium Magnesium Ferritin Total Bilirubin AST Lactate Dehydrogenase Total Creatine Kinase C-Reactive Protein Total Protein Albumin TSH Free T3 Index Urine WBC (Auto) Urine Creatinine Salicylates Acetaminophen Valproic Acid SARS-CoV-2 (PCR) 07/22/22 07/22/22 07/22/22 00:05 04:00 04:13 WBC RBC 2.90 L Hgb 9.5 L Hct 28.9 L MCV 100 H MCH 33 H RDW 15.5 H Plt Count Reeves % (Auto) 10.0 H Seg Neutrophils % Seg Neutrophils # PT APTT D-Dimer ABG pH ABG pO2 ABG HCO3 ABG O2 Saturation ABG Base Excess ABG Hemoglobin Oxyhemoglobin Sodium Potassium Chloride Carbon Dioxide 31 H BUN Creatinine 0.4 L Glucose 105 H POC Glucose 143 H Lactic Acid Uric Acid Calcium Magnesium Ferritin Total Bilirubin AST Lactate Dehydrogenase Total Creatine Kinase C-Reactive Protein Total Protein Albumin TSH Free T3 Index Urine WBC (Auto) Urine Creatinine Salicylates Acetaminophen Valproic Acid SARS-CoV-2 (PCR) 07/22/22 07/23/22 07/23/22 11:03 04:25 04:25 WBC RBC 2.71 L Hgb 9.1 L Hct 27.0 L MCV 100 H MCH 33 H RDW 15.4 H Plt Count Reeves % (Auto) Seg Neutrophils % Seg Neutrophils # PT APTT D-Dimer ABG pH ABG pO2 ABG HCO3 ABG O2 Saturation ABG Base Excess ABG Hemoglobin Oxyhemoglobin Sodium Potassium Chloride Carbon Dioxide 33 H BUN Creatinine 0.4 L Glucose POC Glucose 111 H Lactic Acid Uric Acid Calcium 8.3 L Magnesium Ferritin Total Bilirubin AST Lactate Dehydrogenase Total Creatine Kinase C-Reactive Protein Total Protein Albumin TSH Free T3 Index Urine WBC (Auto) Urine Creatinine Salicylates Acetaminophen Valproic Acid SARS-CoV-2 (PCR)
[2022-07-24] MEDS: INSULIN LISPRO 100 UNIT/ML SUB-Q SCH ×4 (00:14→17:29)
[2022-07-24] MEDS: LEVOTHYROXINE 75 MCG TAB FEEDTUBE SCH (06:37)
[2022-07-24] MEDS: HEPARIN 5,000 UNIT/1 ML VIAL SUB-Q SCH ×2 (06:37→17:56)
[2022-07-24] MEDS: CHOLECALCIFEROL (VIT D3) 1000 UNIT (25 mcg) TAB FEEDTUBE SCH (10:15)
[2022-07-24] MEDS: VALPROIC ACID 250 MG/5 ML ORAL LIQD FEEDTUBE SCH ×2 (10:15→21:55)
[2022-07-24] MEDS: FAMOTIDINE 20 MG TAB FEEDTUBE SCH ×2 (10:15→21:58)
[2022-07-24] MEDS: SENNOSIDES/DOCUSATE SODIUM 8.6/50 MG TAB FEEDTUBE SCH ×2 (10:29→21:58)
--- NOTE | 2022-07-24 11:01 | Progress Note ---
<GEORGE DAVIS - Last Filed: 07/25/22 00:15> Assessment and Plan Assessment and plan: This is a 76-year-old female with CVA, pulmonary embolism, hypothyroidism and JUJU admitted with electrolyte imbalances, hypoxic respiratory failure and COVID- 19 pneumonia Hospital Course to Date: 07/08: Patient noted to be COVID-positive, started on remdesivir, Decadron, ceftriaxone azithromycin and infectious disease was consulted yesterday. This morning patient is on any sedation, PICC line to be placed. RT to attempt PSV. Started on free water flushes and tube feedings. Continues on D5 half-normal saline. 07/09: Patient remains encephalopathic, not on any sedation. Hypernatremia is improving, on FWF Q4hrs and D5w gtt per Nephro. If hypernatremia continue to improve and patient's mentation is unchanged, will get a repeat CT to r/o intracranial abnormalities. Patient remains afebrile, leukocytosis improved, and VSS. Continue current IV abx per ID. Patient failed PSV trial again today, trevon nue PSV trial as tolerated 07/10: Remains stable on the vent, tolerating PSV trial this am. sodium continue to improve but no change in mental status. D/w CCM will get MRI brain to r/o any intracranial abnormalities, EEG also ordered to r/o seizures. Continue FWF and D5w gtt per Nephro. Continue IV steroids and current IV abx per ID. 07/11: Hypernatremia resolved, mentation is unchanged, remains on low vent setting. EEG noted, and MRI brain pending. Will consult Neurology for further recommendations. Continue daily PSV trial as tolerated. 07/12: Appears more awake this morning but still not following any commands. MRI brain with no acute findings and sodium normalized. Awaiting Neuro consult. Continue daily PSV trial as tolerated. Patient's daughter was updated via phone, all questions and concerns were addressed at this time. Medical records [facility] from [facility] and [facility]. 07/13: DELMI overnight. Mentation is unchanged, remains stable on the vent. Neurology consult pending. Continue vent adjustment per CCM and daily PSV trial as tolerated. 07/14: Mentation is unchanged, remains afebrile and stable on the vent, VSS. Complete antibiotics course, still on IV steroids X3 more days. ID recommendations noted, remove corbin. Continue daily PSV trial as tolerated. 07/15: DELMI overnight, mentation unchanged, VSS. Patient failed PSV trial this am due to apnea. Continue daily PSV trial as tolerated. Possible trach and Peg per CCM. 07/16: No acute events overnight, attempted PSV again today. CCM to have family meeting on 07/17 to discuss trach/PEG 07/17: CCM will have family meeting tomorrow. Failed PSV again. No acute events overnight. Thrombocytopenia continues to improve 07/18: [facility] held a family meeting today and surgery will be consulted for trach/PEG placement. Family stated that patient had not had her levothyroxine for several months due to decreased p.o. intake, will send thyroid panel. No acute events reported overnight. Hypotension today and 500 mL normal saline bolus given. Possible trach/peg within 2 days 07/19: No acute events reported overnight. Free T4 normal. Failed PSV 07/20: No acute events reported overnight. Patient taken off isolation per ID. Trach/PEG scheduled for Friday. failed PSV 07/21: No acute events reported overnight. Trach/peg for friday. PSV ongoing 07/22: Remains stable, DELMI overnight. Plan for possible Trac/PEG today by general surgery. Continue dailu PSV trial as tolerated. 07/23: s/p trach and PEG, remains stable on low vent setting, recent CXR is unremarkable. VSS. Resume TF once okayed by General Surgery. Continue daily PSV trial as tolerated. Possible LTAC placement, case management to arrange. 07/24: Remains stable on the vent, tolerating TF via Peg. Continue supportive measures and daily PSV trial. Awaiting placement. Assessment and Plan Neuro: Acute metabolic encephalopathy, h/o CVA with hemiplegia, dysphagia, aphasia, dementia -Reorientation as needed -Maintain sleep-wake cycle -Resume home Lipitor -As needed analgesia -CT head shows no acute intracranial hemorrhage, multiple chronic appearing infarcts including left MCA distribution, left cerebral hemisphere and within the right basal ganglia -Depakene -EEG noted -MRI noted -Neurology consult pending Cardiac: h/o HLD -Resume home Lipitor -Blood pressure monitoring per protocol Respiratory: Acute hypoxic respiratory failure, h/o JUJU, pulmonary embolism -CCM consulted, appreciate recommendations -Intubated on 07/07 -07/22 s/p Trach/PEG -A.m. vent settings:PRVC-28%,6,10,400 -See RT notes for titration -A.m. ABG and CXR noted -VAP bundle -SPO2 monitoring GI:TF -07/22 s/p PEGtube placement -PPI -NTR consulted for tube feedings -BR: Senokot-S : Hypernatremia(resolved), hypokalemia, rhabdomyolysis -Nephrology consulted, appreciate recommendations -Monitor intake and output -Free water flush -Renally dose medications -Avoid nephrotoxic medications -Replete potassium -Trend BMP ID: COVID Pneumonia, lactic acidosis -Infectious disease consulted, appreciate recommendation -completed IV antibiotics course -Dexamethasone for 10 days, end 07/17 -Contact/droplet precautions -f/u blood culture -Trend COVID-19 inflammatory markers -Monitor WBC and temperature curve -Prophylactic anticoagulation based on D-dimer per hospital protocol Heme: Thrombocytopenia-improved -Patient presented with low plt -Plt continue to trend down, but less than 50% of admit count -No s/s of any active bleeding, H&H stable -Continue to trend CBC -On Heparin SubQ -Transfuse for plt less than 20 and hgb less than 7 Endo: h/o hypothyroidism -Avoid hypoglycemia -SSI -Accu-Cheks q. 6 -Long-acting insulin, titrate as needed -Resume home Synthroid GI/DVT Prophylaxis -PPI- pepcid -Heparin SubQ -SCDs to bilateral lower extremities while in bed The high probability of a clinically significant, sudden or life threatening deterioration of the [multi] system(s) required my full and direct attention, intervention and personal management. The aggregate critical care time was [60] minutes. This time is in addition to time spent performing reported procedures but includes the following: [x] Data Review and interpretation [x] Patient assessment and monitoring of vital signs [x] Documentation [x] Medication orders and management Disposition Plan: ICU Total Time Spent with Patient (Minutes): 60 History Interval history: Patient seen and examined at the bedside. Remains stable on the vent. VSS. DELMI overnight Hospitalist Physical - Physical exam Narrative exam: General appearance: Present: other (Trached, stable on the vent) - EENT Eyes: Present: PERRL - Respiratory Respiratory effort: normal Respiratory: bilateral: rhonchi - Cardiovascular Rhythm: regular Heart Sounds: Present: S1 & S2 - Extremities Extremities: no ischemia, pulses intact, pulses symmetrical Extremity abnormal: edema - Peripheral Assessment Generalized Edema Type: Non-pitting Edema Degree: 2+ Capillary Refill: < 3 seconds Skin Temperature: Warm Peripheral Pulses: within normal limits - Abdominal General gastrointestinal: soft, non-distended, normal bowel sounds - Integumentary Integumentary: Present: warm, dry - Psychiatric Psychiatric: other (Trached, unresponsive on the vent, not on any sedations) - Neurologic Neurologic: other (Trached, unresponsive, not on any sedations. Open eyes spontaneously, does not track, not following commands, with nonpurposeful movements) - Allied Health Allied health notes reviewed: nursing, case management - Constitutional Vitals: Temp Pulse Resp BP Pulse Ox 98.4 F 103 H 17 86/56 100 07/24/22 08:00 07/24/22 10:01 07/24/22 10:01 07/24/22 10:01 07/24/22 10:01 HEART Score - HEART Score Troponin: Troponin T 0.010 ng/mL (0.00-0.029) 07/07/22 04:17 Results - Labs CBC & Chem 7: 07/23/22 04:25 07/23/22 04:25 Labs: Laboratory Last Values WBC 5.6 K/mm3 (4.5-11.0) 07/23/22 04:25 RBC 2.71 M/mm3 (3.65-5.03) L 07/23/22 04:25 Hgb 9.1 gm/dl (10.1-14.3) L 07/23/22 04:25 Hct 27.0 % (30.3-42.9) L 07/23/22 04:25 MCV 100 fl (79-97) H 07/23/22 04:25 MCH 33 pg (28-32) H 07/23/22 04:25 MCHC 34 % (30-34) 07/23/22 04:25 RDW 15.4 % (13.2-15.2) H 07/23/22 04:25 Plt Count 160 K/mm3 (140-440) 07/23/22 04:25 Lymph % (Auto) 33.3 % (13.4-35.0) 07/22/22 04:13 [place] % (Auto) 10.0 % (0.0-7.3) H 07/22/22 04:13 Eos % (Auto) 0.5 % (0.0-4.3) 07/22/22 04:13 Baso % (Auto) 0.1 % (0.0-1.8) 07/22/22 04:13 Lymph # (Auto) 2.1 K/mm3 (1.2-5.4) 07/22/22 04:13 [place] # (Auto) 0.6 K/mm3 (0.0-0.8) 07/22/22 04:13 Eos # (Auto) 0.0 K/mm3 (0.0-0.4) 07/22/22 04:13 Baso # (Auto) 0.0 K/mm3 (0.0-0.1) 07/22/22 04:13 Seg Neutrophils % 56.1 % (40.0-70.0) 07/22/22 04:13 Seg Neutrophils # 3.6 K/mm3 (1.8-7.7) 07/22/22 04:13 PT 13.0 Sec. (12.2-14.9) 07/22/22 04:13 INR 0.87 (0.87-1.13) 07/22/22 04:13 APTT 23.0 Sec. (24.2-36.6) L 07/07/22 03:38 D-Dimer 925.80 ng/mlDDU (0-234) H 07/12/22 04:00 ABG pH 7.503 pH Units (7.350-7.450) H 07/20/22 05:30 ABG pCO2 42.7 mm Hg 07/20/22 05:30 ABG pO2 99.1 mm Hg (80.0-90.0) H 07/20/22 05:30 ABG HCO3 32.8 mmol/L (20.0-26.0) H 07/20/22 05:30 ABG O2 Saturation 97.8 % (95.0-99.0) 07/20/22 05:30 ABG O2 Content 13.3 (0.0-44) 07/20/22 05:30 ABG Base Excess 8.8 mmol/L (-2.0-3.0) H 07/20/22 05:30 ABG Hemoglobin 9.7 gm/dl (12.0-16.0) L 07/20/22 05:30 ABG Carboxyhemoglobin 1.3 % (0.0-5.0) 07/20/22 05:30 ABG Methemoglobin 0.6 % (0.0-1.5) 07/20/22 05:30 Oxyhemoglobin 95.9 % (95.0-99.0) 07/20/22 05:30 FiO2 28 % 07/20/22 05:30 Sodium 141 mmol/L (137-145) 07/23/22 04:25 Potassium 3.9 mmol/L (3.6-5.0) 07/23/22 04:25 Chloride 101.0 mmol/L (98-107) 07/23/22 04:25 Carbon Dioxide 33 mmol/L (22-30) H 07/23/22 04:25 Anion Gap 11 mmol/L 07/23/22 04:25 BUN 12 mg/dL (7-17) 07/23/22 04:25 Creatinine 0.4 mg/dL (0.6-1.2) L 07/23/22 04:25 Estimated GFR > 60 ml/min 07/23/22 04:25 BUN/Creatinine Ratio 30 % 07/23/22 04:25 Glucose 100 mg/dL (65-100) 07/23/22 04:25 POC Glucose 115 mg/dL (70-105) H 07/23/22 23:34 Lactic Acid 2.10 mmol/L (0.7-2.0) H* 07/10/22 08:24 Uric Acid 13.5 mg/dL (3.5-7.6) H 07/07/22 04:17 Calcium 8.3 mg/dL (8.4-10.2) L 07/23/22 04:25 Phosphorus 2.80 mg/dL (2.5-4.5) 07/22/22 04:00 Magnesium 1.80 mg/dL (1.7-2.3) 07/22/22 04:00 Ferritin 519.5 ng/mL (10.0-200.0) H 07/12/22 04:00 Total Bilirubin 0.30 mg/dL (0.1-1.2) 07/10/22 04:21 AST 89 units/L (5-40) H 07/10/22 04:21 ALT 53 units/L (7-56) 07/10/22 04:21 Alkaline Phosphatase 83 units/L (35-129) 07/10/22 04:21 Ammonia 32.0 umol/L (25-60) 07/07/22 04:17 Lactate Dehydrogenase 444 units/L (91-180) H 07/12/22 04:00 Total Creatine Kinase 1745 units/L (30-135) H 07/11/22 05:40 Troponin T 0.010 ng/mL (0.00-0.029) 07/07/22 04:17 C-Reactive Protein 0.30 mg/dL (0.00-1.30) 07/12/22 04:00 Total Protein 4.9 g/dL (6.3-8.2) L 07/10/22 04:21 Albumin 2.5 g/dL (3.9-5) L 07/10/22 04:21 Albumin/Globulin Ratio 1.0 % 07/10/22 04:21 Procalcitonin 0.19 ng/mL (<0.15) 07/08/22 14:54 TSH 9.750 mlU/mL (0.270-4.200) H 07/18/22 12:31 Free T4 0.78 ng/dL (0.76-1.46) 07/18/22 12:31 Thyroxine (T4) 6.2 ug/dL (4.0-12.0) 07/18/22 12:31 Free T3 Index 1.7 pg/mL (2.3-4.2) L 07/18/22 12:31 Total Cortisol 47.9 mcg/dL () 07/07/22 07:43 Urine Color Yellow (Yellow) 07/07/22 03:17 Urine Turbidity Slightly cloudy (Clear) 07/07/22 03:17 Specific [place] (Man) 1.015 (1.003-1.030) 07/07/22 03:17 Ur Protein (Man) 1+ mg/dL (Negative) 07/07/22 03:17 Ur Ketones (Man) Negative (Negative) 07/07/22 03:17 Ur Nitrite (Man) Negative (Negative) 07/07/22 03:17 Urine Bilirubin (Man) Negative (Negative) 07/07/22 03:17 Leukocyte Esterase (Man) Negative (Negative) 07/07/22 03:17 Urine WBC (Auto) 7.0 /HPF (0.0-6.0) H 07/07/22 03:17 Urine RBC (Auto) 1.0 /HPF (0.0-6.0) 07/07/22 03:17 U Epithel Cells (Auto) 4.0 /HPF (0-13.0) 07/07/22 03:17 Urine Bacteria (Auto) 3+ /HPF (Negative) 07/07/22 03:17 Urine RBC (Manual) 3+ (Negative) 07/07/22 03:17 Urine Mucus 3+ /HPF 07/07/22 03:17 Urine Osmolality 744 Mosm/kg 07/07/22 16:45 Urine Creatinine 92.9 mg/dL (0.1-20.0) H 07/07/22 16:45 Urine Sodium 109 mmol/L 07/07/22 16:45 Salicylates < 0.3 mg/dL (2.8-20.0) L 07/07/22 03:38 Urine Opiates Screen Presumptive negative 07/07/22 03:17 Urine Methadone Screen Presumptive negative 07/07/22 03:17 Acetaminophen 5.0 ug/mL (10.0-30.0) L 07/07/22 03:38 Ur Barbiturates Screen Presumptive negative 07/07/22 03:17 Valproic Acid 7.0 ug/mL (50-100) L 07/07/22 03:38 Ur Phencyclidine Scrn Presumptive negative 07/07/22 03:17 Ur Amphetamines Screen Presumptive negative 07/07/22 03:17 U Benzodiazepines Scrn Presumptive negative 07/07/22 03:17 Urine Cocaine Screen Presumptive negative 07/07/22 03:17 U Marijuana (THC) Screen Presumptive negative 07/07/22 03:17 Drugs of Abuse Note Disclamer 07/07/22 03:17 Plasma/Serum Alcohol < 0.01 % (0-0.07) 07/07/22 03:38 SARS-CoV-2 (PCR) Positive (Negative) A 07/07/22 15:00 [place]/IV: Voiding Method External Female Catheter Active Medications - Current Medications Current Medications: Generic Name Dose Route Start Last Admin Trade Name Freq PRN Reason Stop Dose Admin Acetaminophen 650 mg 07/13/22 12:00 07/20/22 17:53 Acetaminophen 325 Mg/10.15 Ml Oral Liqd Unit Dose FEEDTUBE 650 mg Q6H PRN Administration Pain MILD(1-3)/Fever >100.5/LEE Atorvastatin Calcium 80 mg 07/10/22 22:00 07/23/22 22:57 Atorvastatin 40 Mg Tab FEEDTUBE 80 mg QHS ERROL Administration Cholecalciferol 1,000 unit 07/10/22 10:00 07/23/22 10:31 Cholecalciferol (Vit D3) 1000 Unit (25 Mcg) Tab FEEDTUBE 1,000 unit QDAY ERROL Administration Dextrose 50 ml 07/09/22 11:42 Dextrose 50% In Water (25gm) 50 Ml Syringe IV Q30MIN PRN Hypoglycemia Protocol Famotidine 20 mg 07/09/22 22:00 07/23/22 22:58 Famotidine 20 Mg Tab FEEDTUBE 20 mg BID ERROL Administration Heparin Sodium (Porcine) 5,000 unit 07/08/22 06:00 07/24/22 06:37 Heparin 5,000 Unit/1 Ml Vial SUB-Q 5,000 unit Q12H ERROL Administration Hydrophilic Ointment 1 applic 07/07/22 02:48 Lip Therapy Vaseline TP Q2HR PRN Dry Lips Dextrose 1,000 mls @ 50 mls/hr 07/23/22 01:00 07/23/22 00:27 D5w IV 50 mls/hr DIRECT ERROL Administration Insulin Human Lispro 0 unit 07/09/22 12:00 07/24/22 06:37 Insulin Lispro 100 Unit/Ml SUB-Q Not Given Q6HR ERROL Protocol Levothyroxine Sodium 75 mcg 07/11/22 06:00 07/24/22 06:37 Levothyroxine 75 Mcg Tab FEEDTUBE 75 mcg QAM@0600 ERROL Administration Multi-Ingred Cream/Lotion/Oil/Oint 1 applic 07/07/22 02:48 Mineral Oil/Petrolatum, White Ophth Oint 3.5 Gm OU Q4HR PRN Dry Eye(s) Senna/Docusate Sodium 1 tab 07/07/22 10:00 07/23/22 22:58 Sennosides/Docusate Sodium 8.6/50 Mg Tab FEEDTUBE 1 tab BID ERROL Administration Sodium Chloride 10 ml 07/07/22 13:00 07/23/22 22:58 Sodium Chloride 0.9% 10 Ml Flush Syringe IV Not Given BID ERROL Sodium Chloride 10 ml 07/07/22 12:09 Sodium Chloride 0.9% 10 Ml Flush Syringe IV PRN PRN LINE FLUSH Valproic Acid 250 mg 07/10/22 22:00 07/23/22 22:57 Valproic Acid 250 Mg/5 Ml Oral Liqd FEEDTUBE 250 mg Q12H ERROL Administration Nutrition/Malnutrition Assess - Dietary Evaluation Nutrition/Malnutrition Findings: Nutrition Notes Start: 07/07/22 13:24 Freq: Status: Active Protocol: Document 07/24/22 09:24 DAREN (Rec: 07/24/22 09:53 DAREN [id number]) Nutrition Notes Initial or Follow up Reassessment Current Diagnosis Respiratory Failure,Stroke, Hyperlipidemia Other Pertinent Diagnosis COVID-19, Metabolic Encephalopathy, Pulmonary Embolism, Dementia. Current Diet TF-Vital AF 1.2 [place] @ 50 ml/hr (from D 07/12). Labs/Tests 07/24: CO2 33, Crea 0.4, Ca 8. 3. Pertinent Medications 07/24: Vit D3, D5w @ 50ml/hr, Levothyroxine, others nutritionally unremarkable. Height 5 ft 6 in Weight 96.2 kg [place] Body Weight (kg) 59.09 BMI 34.2 Weight change and time frame 0.946 Kg body weight gain in 1 week reported. Weight Status Obese Subjective/Other Information RD consult for routine F/U on TF tolerance/continuation assessment. TF continues as prescribed, and well tolerated, according to RN notes. Pt continues on Mechanical Ventilation, O2 saturation @ 98%, according to Physical Assessment History notes. Procedure on 07/22: Percutaneous Tracheostomy and EGD w/PEG-tube placement, well tolerated. according to Operative Report notes. TF resumed on 07/23, after PEG -tube placement, according to Progress notes. Possible discharge to LTAC facility, according to Progress notes. Percent of energy/protein needs met: Prescribed TF-Vital AF 1.2 [place] @ 50 ml/hr provides for energy/protein needs (1,440 Kcal/90 g) during LOS, 101% Kcal, 91% AA. Burn Absent Trauma Absent GI Symptoms Other Difficulty In Swallowing,Chewing Food Allergy No Skin Integrity/Comment Assessment WNL. Current % PO Other Minimum of two criteria Yes Energy Intake (non-severe) <75% Estimated Energy Requirement >7 days Interpretation of Weight Loss (non- 5% in 1 month severe) Fluid Accumulation N/A Protein-Calorie Malnutrition Non-Severe #2 Nutrition Diagnosis Malnutrition Comments: TF continues as prescribed, and well tolerated, according to RN notes. Diagnosis Progress(for reassessment Improved documentation) #1 Nutrition Diagnosis Inadequate oral intake Comments: Procedure on 07/22: Percutaneous Tracheostomy and EGD w/PEG-tube placement, well tolerated. according to Operative Report notes. TF resumed on 07/23, after PEG -tube placement, according to Progress notes. Diagnosis Progress(for reassessment Continues documentation) Is patient on ventilator? Yes Is Patient Ambulatory and/or Out of Bed No REE-([facility]-confined to bed) 1774.548 Kcal/Kg value to use for calculation 15 Approximate Energy Requirements Using 1443 kcal/Kg Calculation Used for Recommendations Kcal/kg Additional Notes Protein: 1.3 g/Kg AdjBW; 101 g /day. Fluids: 1 ml/Kcal, or as per MD. Nutrition Intervention Nutrition Support: Continue TF-Vital AF 1.2 [place] @ 50 ml/hr. Flush: 75 ml water Q 4 hr, or as per MD. Kcal 1,440 Protein (gm) 90 Carbohydrates (gm) 133 Fat (gm) 65 Fluid (mL) 973 Fiber (gm) 6 % RDI: 101% Kcal; 91% AA. Goal #1 Provide at least 75% of energy /protein needs through Enteral Feeding during LOS. Follow-Up By: 08/07/22 Additional Comments Continue monitoring TF tolerance, ventilation status, and BM. <ANAHI ANGELES - Last Filed: 07/25/22 07:16> Assessment and Plan Assessment and plan: I saw and evaluated the patient. I agree with the findings and the plan of care as documented in the Nurse Practitioner's~note, with the following corrections and additions. Hospitalist Physical - Constitutional Vitals: Temp Pulse Resp BP Pulse Ox 99.1 F 107 H 9 L 125/62 100 07/25/22 04:00 07/25/22 06:00 07/25/22 06:00 07/25/22 06:00 07/25/22 06:00 HEART Score - HEART Score Troponin: Troponin T 0.010 ng/mL (0.00-0.029) 07/07/22 04:17 Results - Labs CBC & Chem 7: 07/25/22 04:22 07/25/22 04:22 Labs: Laboratory Last Values WBC 7.1 K/mm3 (4.5-11.0) 07/25/22 04:22 RBC 2.86 M/mm3 (3.65-5.03) L 07/25/22 04:22 Hgb 9.4 gm/dl (10.1-14.3) L 07/25/22 04:22 Hct 28.5 % (30.3-42.9) L 07/25/22 04:22 MCV 100 fl (79-97) H 07/25/22 04:22 MCH 33 pg (28-32) H 07/25/22 04:22 MCHC 33 % (30-34) 07/25/22 04:22 RDW 15.4 % (13.2-15.2) H 07/25/22 04:22 Plt Count 183 K/mm3 (140-440) 07/25/22 04:22 Lymph % (Auto) 33.3 % (13.4-35.0) 07/22/22 04:13 [place] % (Auto) 10.0 % (0.0-7.3) H 07/22/22 04:13 Eos % (Auto) 0.5 % (0.0-4.3) 07/22/22 04:13 Baso % (Auto) 0.1 % (0.0-1.8) 07/22/22 04:13 Lymph # (Auto) 2.1 K/mm3 (1.2-5.4) 07/22/22 04:13 [place] # (Auto) 0.6 K/mm3 (0.0-0.8) 07/22/22 04:13 Eos # (Auto) 0.0 K/mm3 (0.0-0.4) 07/22/22 04:13 Baso # (Auto) 0.0 K/mm3 (0.0-0.1) 07/22/22 04:13 Seg Neutrophils % 56.1 % (40.0-70.0) 07/22/22 04:13 Seg Neutrophils # 3.6 K/mm3 (1.8-7.7) 07/22/22 04:13 PT 13.0 Sec. (12.2-14.9) 07/22/22 04:13 INR 0.87 (0.87-1.13) 07/22/22 04:13 APTT 23.0 Sec. (24.2-36.6) L 07/07/22 03:38 D-Dimer 925.80 ng/mlDDU (0-234) H 07/12/22 04:00 ABG pH 7.503 pH Units (7.350-7.450) H 07/20/22 05:30 ABG pCO2 42.7 mm Hg 07/20/22 05:30 ABG pO2 99.1 mm Hg (80.0-90.0) H 07/20/22 05:30 ABG HCO3 32.8 mmol/L (20.0-26.0) H 07/20/22 05:30 ABG O2 Saturation 97.8 % (95.0-99.0) 07/20/22 05:30 ABG O2 Content 13.3 (0.0-44) 07/20/22 05:30 ABG Base Excess 8.8 mmol/L (-2.0-3.0) H 07/20/22 05:30 ABG Hemoglobin 9.7 gm/dl (12.0-16.0) L 07/20/22 05:30 ABG Carboxyhemoglobin 1.3 % (0.0-5.0) 07/20/22 05:30 ABG Methemoglobin 0.6 % (0.0-1.5) 07/20/22 05:30 Oxyhemoglobin 95.9 % (95.0-99.0) 07/20/22 05:30 FiO2 28 % 07/20/22 05:30 Sodium 142 mmol/L (137-145) 07/25/22 04:22 Potassium 3.8 mmol/L (3.6-5.0) 07/25/22 04:22 Chloride 102.2 mmol/L (98-107) 07/25/22 04:22 Carbon Dioxide 31 mmol/L (22-30) H 07/25/22 04:22 Anion Gap 13 mmol/L 07/25/22 04:22 BUN 9 mg/dL (7-17) 07/25/22 04:22 Creatinine 0.3 mg/dL (0.6-1.2) L 07/25/22 04:22 Estimated GFR > 60 ml/min 07/25/22 04:22 BUN/Creatinine Ratio 30 % 07/25/22 04:22 Glucose 135 mg/dL (65-100) H 07/25/22 04:22 POC Glucose 131 mg/dL (70-105) H 07/25/22 00:10 Lactic Acid 2.10 mmol/L (0.7-2.0) H* 07/10/22 08:24 Uric Acid 13.5 mg/dL (3.5-7.6) H 07/07/22 04:17 Calcium 8.0 mg/dL (8.4-10.2) L 07/25/22 04:22 Phosphorus 2.20 mg/dL (2.5-4.5) L 07/25/22 04:22 Magnesium 1.90 mg/dL (1.7-2.3) 07/25/22 04:22 Ferritin 519.5 ng/mL (10.0-200.0) H 07/12/22 04:00 Total Bilirubin 0.30 mg/dL (0.1-1.2) 07/10/22 04:21 AST 89 units/L (5-40) H 07/10/22 04:21 ALT 53 units/L (7-56) 07/10/22 04:21 Alkaline Phosphatase 83 units/L (35-129) 07/10/22 04:21 Ammonia 32.0 umol/L (25-60) 07/07/22 04:17 Lactate Dehydrogenase 444 units/L (91-180) H 07/12/22 04:00 Total Creatine Kinase 1745 units/L (30-135) H 07/11/22 05:40 Troponin T 0.010 ng/mL (0.00-0.029) 07/07/22 04:17 C-Reactive Protein 0.30 mg/dL (0.00-1.30) 07/12/22 04:00 Total Protein 4.9 g/dL (6.3-8.2) L 07/10/22 04:21 Albumin 2.5 g/dL (3.9-5) L 07/10/22 04:21 Albumin/Globulin Ratio 1.0 % 07/10/22 04:21 Procalcitonin 0.19 ng/mL (<0.15) 07/08/22 14:54 TSH 9.750 mlU/mL (0.270-4.200) H 07/18/22 12:31 Free T4 0.78 ng/dL (0.76-1.46) 07/18/22 12:31 Thyroxine (T4) 6.2 ug/dL (4.0-12.0) 07/18/22 12:31 Free T3 Index 1.7 pg/mL (2.3-4.2) L 07/18/22 12:31 Total Cortisol 47.9 mcg/dL () 07/07/22 07:43 Urine Color Yellow (Yellow) 07/07/22 03:17 Urine Turbidity Slightly cloudy (Clear) 07/07/22 03:17 Specific [place] (Man) 1.015 (1.003-1.030) 07/07/22 03:17 Ur Protein (Man) 1+ mg/dL (Negative) 07/07/22 03:17 Ur Ketones (Man) Negative (Negative) 07/07/22 03:17 Ur Nitrite (Man) Negative (Negative) 07/07/22 03:17 Urine Bilirubin (Man) Negative (Negative) 07/07/22 03:17 Leukocyte Esterase (Man) Negative (Negative) 07/07/22 03:17 Urine WBC (Auto) 7.0 /HPF (0.0-6.0) H 07/07/22 03:17 Urine RBC (Auto) 1.0 /HPF (0.0-6.0) 07/07/22 03:17 U Epithel Cells (Auto) 4.0 /HPF (0-13.0) 07/07/22 03:17 Urine Bacteria (Auto) 3+ /HPF (Negative) 07/07/22 03:17 Urine RBC (Manual) 3+ (Negative) 07/07/22 03:17 Urine Mucus 3+ /HPF 07/07/22 03:17 Urine Osmolality 744 Mosm/kg 07/07/22 16:45 Urine Creatinine 92.9 mg/dL (0.1-20.0) H 07/07/22 16:45 Urine Sodium 109 mmol/L 07/07/22 16:45 Salicylates < 0.3 mg/dL (2.8-20.0) L 07/07/22 03:38 Urine Opiates Screen Presumptive negative 07/07/22 03:17 Urine Methadone Screen Presumptive negative 07/07/22 03:17 Acetaminophen 5.0 ug/mL (10.0-30.0) L 07/07/22 03:38 Ur Barbiturates Screen Presumptive negative 07/07/22 03:17 Valproic Acid 7.0 ug/mL (50-100) L 07/07/22 03:38 Ur Phencyclidine Scrn Presumptive negative 07/07/22 03:17 Ur Amphetamines Screen Presumptive negative 07/07/22 03:17 U Benzodiazepines Scrn Presumptive negative 07/07/22 03:17 Urine Cocaine Screen Presumptive negative 07/07/22 03:17 U Marijuana (THC) Screen Presumptive negative 07/07/22 03:17 Drugs of Abuse Note Disclamer 07/07/22 03:17 Plasma/Serum Alcohol < 0.01 % (0-0.07) 07/07/22 03:38 SARS-CoV-2 (PCR) Positive (Negative) A 07/07/22 15:00 [place]bin/IV: Voiding Method External Female Catheter Active Medications - Current Medications Current Medications: Generic Name Dose Route Start Last Admin Trade Name Freq PRN Reason Stop Dose Admin Acetaminophen 650 mg 07/13/22 12:00 07/20/22 17:53 Acetaminophen 325 Mg/10.15 Ml Oral Liqd Unit Dose FEEDTUBE 650 mg Q6H PRN Administration Pain MILD(1-3)/Fever >100.5/LEE Atorvastatin Calcium 80 mg 07/10/22 22:00 07/24/22 21:57 Atorvastatin 40 Mg Tab FEEDTUBE 80 mg QHS ERROL Administration Cholecalciferol 1,000 unit 07/10/22 10:00 07/24/22 10:15 Cholecalciferol (Vit D3) 1000 Unit (25 Mcg) Tab FEEDTUBE 1,000 unit QDAY ERROL Administration Dextrose 50 ml 07/09/22 11:42 Dextrose 50% In Water (25gm) 50 Ml Syringe IV Q30MIN PRN Hypoglycemia Protocol Famotidine 20 mg 07/09/22 22:00 07/24/22 21:58 Famotidine 20 Mg Tab FEEDTUBE 20 mg BID ERROL Administration Heparin Sodium (Porcine) 5,000 unit 07/08/22 06:00 07/25/22 06:07 Heparin 5,000 Unit/1 Ml Vial SUB-Q 5,000 unit Q12H ERROL Administration Hydrophilic Ointment 1 applic 07/07/22 02:48 Lip Therapy Vaseline TP Q2HR PRN Dry Lips Insulin Human Lispro 0 unit 07/09/22 12:00 07/25/22 06:07 Insulin Lispro 100 Unit/Ml SUB-Q 1 unit Q6HR ERROL Administration Protocol Levothyroxine Sodium 75 mcg 07/11/22 06:00 07/25/22 06:08 Levothyroxine 75 Mcg Tab FEEDTUBE 75 mcg QAM@0600 ERROL Administration Multi-Ingred Cream/Lotion/Oil/Oint 1 applic 07/07/22 02:48 Mineral Oil/Petrolatum, White Ophth Oint 3.5 Gm OU Q4HR PRN Dry Eye(s) Senna/Docusate Sodium 1 tab 07/07/22 10:00 07/24/22 21:58 Sennosides/Docusate Sodium 8.6/50 Mg Tab FEEDTUBE 1 tab BID ERROL Administration Sodium Chloride 10 ml 07/07/22 13:00 07/24/22 21:58 Sodium Chloride 0.9% 10 Ml Flush Syringe IV 10 ml BID ERROL Administration Sodium Chloride 10 ml 07/07/22 12:09 Sodium Chloride 0.9% 10 Ml Flush Syringe IV PRN PRN LINE FLUSH Valproic Acid 250 mg 07/10/22 22:00 07/24/22 21:55 Valproic Acid 250 Mg/5 Ml Oral Liqd FEEDTUBE 250 mg Q12H ERROL Administration Nutrition/Malnutrition Assess - Dietary Evaluation Nutrition/Malnutrition Findings: Nutrition Notes Start: 07/07/22 13:24 Freq: Status: Active Protocol: Document 07/24/22 09:24 DAREN (Rec: 07/24/22 09:53 DAREN [email or web address]) Nutrition Notes Initial or Follow up Reassessment Current Diagnosis Respiratory Failure,Stroke, Hyperlipidemia Other Pertinent Diagnosis COVID-19, Metabolic Encephalopathy, Pulmonary Embolism, Dementia. Current Diet TF-Vital AF 1.2 Jameson @ 50 ml/hr (from D 07/12). Labs/Tests 07/24: CO2 33, Crea 0.4, Ca 8. 3. Pertinent Medications 07/24: Vit D3, D5w @ 50ml/hr, Levothyroxine, others nutritionally unremarkable. Height 5 ft 6 in Weight 96.2 kg [place] Body Weight (kg) 59.09 BMI 34.2 Weight change and time frame 0.946 Kg body weight gain in 1 week reported. Weight Status Obese Subjective/Other Information RD consult for routine F/U on TF tolerance/continuation assessment. TF continues as prescribed, and well tolerated, according to RN notes. Pt continues on Mechanical Ventilation, O2 saturation @ 98%, according to Physical Assessment History notes. Procedure on 07/22: Percutaneous Tracheostomy and EGD w/PEG-tube placement, well tolerated. according to Operative Report notes. TF resumed on 07/23, after PEG -tube placement, according to Progress notes. Possible discharge to LTAC facility, according to [facility] notes. Percent of energy/protein needs met: Prescribed TF-Vital AF 1.2 Jameson @ 50 ml/hr provides for energy/protein needs (1,440 Kcal/90 g) during LOS, 101% Kcal, 91% AA. Burn Absent Trauma Absent GI Symptoms Other Difficulty In Swallowing,Chewing Food Allergy No Skin Integrity/Comment Assessment WNL. Current % PO Other Minimum of two criteria Yes Energy Intake (non-severe) <75% Estimated Energy Requirement >7 days Interpretation of Weight Loss (non- 5% in 1 month severe) Fluid Accumulation N/A Protein-Calorie Malnutrition Non-Severe #2 Nutrition Diagnosis Malnutrition Comments: TF continues as prescribed, and well tolerated, according to RN notes. Diagnosis Progress(for reassessment Improved documentation) #1 Nutrition Diagnosis Inadequate oral intake Comments: Procedure on 07/22: Percutaneous Tracheostomy and EGD w/PEG-tube placement, well tolerated. according to Operative Report notes. TF resumed on 07/23, after PEG -tube placement, according to Progress notes. Diagnosis Progress(for reassessment Continues documentation) Is patient on ventilator? Yes Is Patient Ambulatory and/or Out of Bed No REE-([facility]-confined to bed) 1774.548 Kcal/Kg value to use for calculation 15 Approximate Energy Requirements Using 1443 kcal/Kg Calculation Used for Recommendations Kcal/kg Additional Notes Protein: 1.3 g/Kg AdjBW; 101 g /day. Fluids: 1 ml/Kcal, or as per MD. Nutrition Intervention Nutrition Support: Continue TF-Vital AF 1.2 Jameson @ 50 ml/hr. Flush: 75 ml water Q 4 hr, or as per MD. Kcal 1,440 Protein (gm) 90 Carbohydrates (gm) 133 Fat (gm) 65 Fluid (mL) 973 Fiber (gm) 6 % RDI: 101% Kcal; 91% AA. Goal #1 Provide at least 75% of energy /protein needs through Enteral Feeding during LOS. Follow-Up By: 08/07/22 Additional Comments Continue monitoring TF tolerance, ventilation status, and BM.
--- NOTE | 2022-07-24 12:30 | Progress Note ---
Assessment and Plan 76 y/o female with acute respiratory failure secondary to altered mental status, most likely from electrolyte abnormalities seen on chemistry, found to be COVID positive. 07/24/22: Continue tube feeds. Continue daily PSV trials. Await placement, weanable but will need time. 07/23/22: Tube feeds back on. No PSV trials today but will do again tomorrow. Awaiting placement. 07/22/22: Trach and Peg hopefully today. 07/21/22: Did 6 hours of PSV yesterday. Trach and peg tomorrow. Check labs to make sure lytes are stable. 07/20/22: Trach/Peg Friday. Supportive care. 07/19/22: Appreciate Surgery. on Schedule for next week. Free T4 was normal. No current indication for stress dose steroids. Continue supportive care. 07/18/22: Family meeting: Discussed current mental state. Discussed negative work up so far to explain why mental state hasnt improved. Per family here, patient was better than what she is not but I had difficult time placing a time frame as to when that was, maybe May. It does appear that she has had a steady decline mentally and even stopped eating. There were talks prior to her admission here about Peg tube placement. Discussed the idea of trach and peg placement. Also explained to family that trach does not fix any underlying reason as to why the patient's mental state is the way it is. The family wasn't aware that she was brought in for altered mental status, they were told she had bradycardia. Nonetheless, the family as a whole wish to pursue trach and peg placement. Consulted Surgery and hopeful they will see soon. Continue supportive measures and continue daily PSV trials. TSH on admit was 13, will repeat but if T4 is normal, nothing to do. She also is not behaving like myxedema coma. Guarded prognosis. 07/17/22: steroids end today. Continue daily PSV trials. Will speak with family about next steps as today is day 10 of intubation and it does not appear that conventional extubation is in the near future. 07/16/22: Continue daily PSV trials. Will speak with family tomorrow as patient is not improving enough for conventional extubation, especially with frequent apnic events. Most likely patient will need trach and peg. 07/15/22: mental status is still unchanged. Eyes open but not tracking or following commands. Also going apnic on PSV trials. Most likely will need trach and peg given mental status has not improved. 07/12/22: Negative MRI for acute infarct. Na is normal. Continue to monitor. Daily PSV trials. Has been intubated now for 5 days. 07/11/22: for MRI today. Appreciate renal help, agree with signing off. Attempt daily PSV. Guarded prognosis. 07/10: follow up MRI. Get official EEG read but no status. Continue daily PSV trials. Guarded prognosis 07/09/22: Continue supportive measures. Continue to fix Na, if no improvement in mental state with normal sodium then will pursue MRI. Picc placed today. 07/08/22: No further sedation. 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 Consider neurology consult and may need to obtain MRI. Attempt PSV trials today. 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 Feed patient and monitor lytes. 1. Discontinue sedation 2. Wean FiO2 for sats >88% and PaO2 greater than 60 3. Agree with fluid resuscitation, patient needs free water 4. Will follow up with family to find out exactly what patient mental status was a facility CCT 31 minutes. Subjective Date of service: 07/24/22 Principal diagnosis: Hypernatremia Interval history: No acute events. Tolerated PSV for about 2hours over night and then had to be placed back on a rate. Objective Vital Signs - 12hr 07/24/22 07/24/22 07/24/22 01:00 02:00 03:00 Temperature Pulse Rate 100 H 93 H 93 H Pulse Rate [ From Monitor] Respiratory 16 11 L 10 L Rate Blood Pressure 108/67 104/64 115/77 O2 Sat by Pulse 100 100 100 Oximetry O2 Sat by Pulse Oximetry [ Assessment] 07/24/22 07/24/22 07/24/22 04:00 04:06 04:08 Temperature 98.7 F Pulse Rate 103 H 96 H Pulse Rate [ 103 H From Monitor] Respiratory 10 L Rate Blood Pressure 108/78 120/59 O2 Sat by Pulse 98 100 Oximetry O2 Sat by Pulse 100 Oximetry [ Assessment] 07/24/22 07/24/22 07/24/22 05:00 06:00 07:00 Temperature Pulse Rate 91 H 99 H 102 H Pulse Rate [ From Monitor] Respiratory 10 L 8 L 11 L Rate Blood Pressure 120/59 101/58 97/55 O2 Sat by Pulse 100 99 Oximetry O2 Sat by Pulse Oximetry [ Assessment] 07/24/22 07/24/22 07/24/22 08:00 08:03 08:07 Temperature 98.4 F Pulse Rate 111 H 106 H 108 H Pulse Rate [ 111 H From Monitor] Respiratory 14 10 L Rate Blood Pressure 95/56 95/56 95/56 O2 Sat by Pulse 98 98 100 Oximetry O2 Sat by Pulse Oximetry [ Assessment] 07/24/22 07/24/22 07/24/22 08:40 09:04 10:01 Temperature Pulse Rate 123 H 104 H 103 H Pulse Rate [ From Monitor] Respiratory 14 17 Rate Blood Pressure 95/56 86/56 O2 Sat by Pulse 99 99 100 Oximetry O2 Sat by Pulse Oximetry [ Assessment] 07/24/22 11:40 Temperature Pulse Rate 96 H Pulse Rate [ From Monitor] Respiratory Rate Blood Pressure 117/64 O2 Sat by Pulse 100 Oximetry O2 Sat by Pulse Oximetry [ Assessment] Constitutional: comatose ENT: other (orally intubated) Neck: supple Effort: normal Ascultation: Bilateral: clear Percussion: Bilateral: not dull Cardiovascular: regular rate and rhythm Gastrointestinal: normoactive bowel sounds, soft Extremities: no cyanosis, no edema Neurologic: unable to assess CBC and BMP: 07/23/22 04:25 07/23/22 04:25 ABG, PT/INR, D-dimer: ABG ABG pH 7.503 pH Units (7.350-7.450) H 07/20/22 05:30 ABG pCO2 42.7 mm Hg 07/20/22 05:30 ABG pO2 99.1 mm Hg (80.0-90.0) H 07/20/22 05:30 ABG O2 Saturation 97.8 % (95.0-99.0) 07/20/22 05:30 PT/INR, D-dimer PT 13.0 Sec. (12.2-14.9) 07/22/22 04:13 INR 0.87 (0.87-1.13) 07/22/22 04:13 D-Dimer 925.80 ng/mlDDU (0-234) H 07/12/22 04:00 Abnormal lab findings: Abnormal Labs 07/07/22 07/07/22 07/07/22 03:17 03:38 03:38 WBC RBC 5.43 H Hgb 18.2 H Hct 54.9 H MCV 101 H MCH 34 H RDW Plt Count 104 L [place] % (Auto) Seg Neutrophils % Seg Neutrophils # PT 15.0 H APTT 23.0 L D-Dimer ABG pH ABG pO2 ABG HCO3 ABG O2 Saturation ABG Base Excess ABG Hemoglobin Oxyhemoglobin Sodium Potassium Chloride Carbon Dioxide BUN Creatinine Glucose POC Glucose Lactic Acid Uric Acid Calcium Magnesium Ferritin Total Bilirubin AST Lactate Dehydrogenase Total Creatine Kinase C-Reactive Protein Total Protein Albumin TSH Free T3 Index Urine WBC (Auto) 7.0 H Urine Creatinine Salicylates Acetaminophen Valproic Acid SARS-CoV-2 (PCR) 07/07/22 07/07/22 07/07/22 03:38 03:38 03:38 WBC RBC Hgb Hct MCV MCH RDW Plt Count [place] % (Auto) Seg Neutrophils % Seg Neutrophils # PT APTT D-Dimer ABG pH ABG pO2 ABG HCO3 ABG O2 Saturation ABG Base Excess ABG Hemoglobin Oxyhemoglobin Sodium Potassium Chloride Carbon Dioxide BUN Creatinine Glucose POC Glucose Lactic Acid Uric Acid Calcium Magnesium 3.30 H Ferritin Total Bilirubin AST Lactate Dehydrogenase Total Creatine Kinase 1826 H C-Reactive Protein Total Protein Albumin TSH Free T3 Index Urine WBC (Auto) Urine Creatinine Salicylates < 0.3 L Acetaminophen 5.0 L Valproic Acid 7.0 L SARS-CoV-2 (PCR) 07/07/22 07/07/22 07/07/22 04:17 04:17 04:17 WBC RBC Hgb Hct MCV MCH RDW Plt Count [place] % (Auto) Seg Neutrophils % Seg Neutrophils # PT APTT D-Dimer ABG pH ABG pO2 ABG HCO3 ABG O2 Saturation ABG Base Excess ABG Hemoglobin Oxyhemoglobin Sodium 168 H* Potassium 3.2 L Chloride 122.2 H Carbon Dioxide BUN 52 H Creatinine Glucose 158 H POC Glucose Lactic Acid 3.50 H* Uric Acid Calcium 10.9 H Magnesium Ferritin Total Bilirubin 1.40 H AST 47 H Lactate Dehydrogenase Total Creatine Kinase C-Reactive Protein Total Protein Albumin TSH 12.790 H Free T3 Index Urine WBC (Auto) Urine Creatinine Salicylates Acetaminophen Valproic Acid SARS-CoV-2 (PCR) 07/07/22 07/07/22 07/07/22 04:17 07:43 09:35 WBC RBC Hgb Hct MCV MCH RDW Plt Count [place] % (Auto) Seg Neutrophils % Seg Neutrophils # PT APTT D-Dimer ABG pH ABG pO2 377.3 H ABG HCO3 ABG O2 Saturation 99.6 H ABG Base Excess -2.5 L ABG Hemoglobin Oxyhemoglobin Sodium Potassium Chloride Carbon Dioxide BUN Creatinine Glucose POC Glucose Lactic Acid 6.30 H* Uric Acid 13.5 H Calcium Magnesium Ferritin Total Bilirubin AST Lactate Dehydrogenase Total Creatine Kinase C-Reactive Protein Total Protein Albumin TSH Free T3 Index Urine WBC (Auto) Urine Creatinine Salicylates Acetaminophen Valproic Acid SARS-CoV-2 (PCR) 07/07/22 07/07/22 07/07/22 15:00 16:00 16:00 WBC RBC Hgb Hct MCV MCH RDW Plt Count [place] % (Auto) Seg Neutrophils % Seg Neutrophils # PT APTT D-Dimer ABG pH ABG pO2 ABG HCO3 ABG O2 Saturation ABG Base Excess ABG Hemoglobin Oxyhemoglobin Sodium 166 H* Potassium Chloride 124.8 H Carbon Dioxide 20 L BUN 41 H Creatinine Glucose 157 H POC Glucose Lactic Acid 7.00 H* Uric Acid Calcium Magnesium Ferritin Total Bilirubin AST 81 H Lactate Dehydrogenase Total Creatine Kinase C-Reactive Protein Total Protein Albumin TSH Free T3 Index Urine WBC (Auto) Urine Creatinine Salicylates Acetaminophen Valproic Acid SARS-CoV-2 (PCR) Positive A 07/07/22 07/07/22 07/07/22 16:45 23:42 23:42 WBC RBC Hgb Hct MCV MCH RDW Plt Count [place] % (Auto) Seg Neutrophils % Seg Neutrophils # PT APTT D-Dimer ABG pH ABG pO2 ABG HCO3 ABG O2 Saturation ABG Base Excess ABG Hemoglobin Oxyhemoglobin Sodium 165 H* Potassium 3.0 L Chloride 122.8 H Carbon Dioxide BUN 38 H Creatinine Glucose 232 H POC Glucose Lactic Acid 5.60 H* Uric Acid Calcium Magnesium Ferritin Total Bilirubin AST Lactate Dehydrogenase Total Creatine Kinase C-Reactive Protein Total Protein Albumin TSH Free T3 Index Urine WBC (Auto) Urine Creatinine 92.9 H Salicylates Acetaminophen Valproic Acid SARS-CoV-2 (PCR) 07/07/22 07/07/22 07/08/22 Unknown Unknown 05:30 WBC RBC Hgb Hct MCV MCH RDW Plt Count [place] % (Auto) Seg Neutrophils % Seg Neutrophils # PT APTT D-Dimer ABG pH 7.553 H 7.473 H ABG pO2 61.7 L 121.7 H ABG HCO3 ABG O2 Saturation 94.7 L ABG Base Excess 4.3 H ABG Hemoglobin 18.0 H Oxyhemoglobin 93.1 L Sodium 163 H* Potassium 6.3 H* D Chloride 123.7 H Carbon Dioxide BUN 42 H Creatinine Glucose 169 H POC Glucose Lactic Acid Uric Acid Calcium Magnesium Ferritin Total Bilirubin AST Lactate Dehydrogenase Total Creatine Kinase C-Reactive Protein Total Protein Albumin TSH Free T3 Index Urine WBC (Auto) Urine Creatinine Salicylates Acetaminophen Valproic Acid SARS-CoV-2 (PCR) 07/08/22 07/08/22 07/08/22 05:36 11:21 14:54 WBC 11.1 H RBC Hgb Hct MCV 101 H MCH 33 H RDW Plt Count 69 L [place] % (Auto) Seg Neutrophils % 82.0 H Seg Neutrophils # 9.1 H PT APTT D-Dimer ABG pH ABG pO2 ABG HCO3 ABG O2 Saturation ABG Base Excess ABG Hemoglobin Oxyhemoglobin Sodium Potassium Chloride Carbon Dioxide BUN Creatinine Glucose POC Glucose 174 H 148 H Lactic Acid Uric Acid Calcium Magnesium Ferritin Total Bilirubin AST Lactate Dehydrogenase Total Creatine Kinase C-Reactive Protein Total Protein Albumin TSH Free T3 Index Urine WBC (Auto) Urine Creatinine Salicylates Acetaminophen Valproic Acid SARS-CoV-2 (PCR) 07/08/22 07/08/22 07/08/22 14:54 14:54 14:54 WBC RBC Hgb Hct MCV MCH RDW Plt Count [place] % (Auto) Seg Neutrophils % Seg Neutrophils # PT APTT D-Dimer ABG pH ABG pO2 ABG HCO3 ABG O2 Saturation ABG Base Excess ABG Hemoglobin Oxyhemoglobin Sodium 163 H* Potassium 2.9 L* Chloride 123.7 H Carbon Dioxide BUN 30 H Creatinine Glucose 161 H POC Glucose Lactic Acid 6.10 H* Uric Acid Calcium Magnesium Ferritin Total Bilirubin AST 69 H Lactate Dehydrogenase Total Creatine Kinase 2335 H C-Reactive Protein Total Protein 5.6 L D Albumin 3.1 L TSH Free T3 Index Urine WBC (Auto) Urine Creatinine Salicylates Acetaminophen Valproic Acid SARS-CoV-2 (PCR) 07/08/22 07/08/22 07/08/22 14:54 14:54 14:54 WBC RBC Hgb Hct MCV MCH RDW Plt Count [place] % (Auto) Seg Neutrophils % Seg Neutrophils # PT APTT D-Dimer 499.72 H ABG pH ABG pO2 ABG HCO3 ABG O2 Saturation ABG Base Excess ABG Hemoglobin Oxyhemoglobin Sodium Potassium Chloride Carbon Dioxide BUN Creatinine Glucose POC Glucose Lactic Acid Uric Acid Calcium Magnesium Ferritin 722.1 H Total Bilirubin AST Lactate Dehydrogenase 455 H Total Creatine Kinase C-Reactive Protein 1.60 H Total Protein Albumin TSH Free T3 Index Urine WBC (Auto) Urine Creatinine Salicylates Acetaminophen Valproic Acid SARS-CoV-2 (PCR) 07/08/22 07/08/22 07/09/22 19:13 19:53 00:09 WBC RBC Hgb Hct MCV MCH RDW Plt Count [place] % (Auto) Seg Neutrophils % Seg Neutrophils # PT APTT D-Dimer ABG pH ABG pO2 ABG HCO3 ABG O2 Saturation ABG Base Excess ABG Hemoglobin Oxyhemoglobin Sodium 160 H Potassium 3.5 L D Chloride 122.0 H Carbon Dioxide 20 L BUN 28 H Creatinine Glucose 151 H POC Glucose 138 H Lactic Acid 5.70 H* Uric Acid Calcium Magnesium Ferritin Total Bilirubin AST Lactate Dehydrogenase Total Creatine Kinase C-Reactive Protein Total Protein Albumin TSH Free T3 Index Urine WBC (Auto) Urine Creatinine Salicylates Acetaminophen Valproic Acid SARS-CoV-2 (PCR) 07/09/22 07/09/22 07/09/22 00:45 03:21 03:21 WBC RBC Hgb Hct MCV MCH RDW Plt Count [place] % (Auto) Seg Neutrophils % Seg Neutrophils # PT APTT D-Dimer ABG pH ABG pO2 ABG HCO3 ABG O2 Saturation ABG Base Excess ABG Hemoglobin Oxyhemoglobin Sodium 158 H 157 H Potassium Chloride 124.2 H 125.0 H Carbon Dioxide 20 L 20 L BUN 25 H 24 H Creatinine Glucose 147 H 169 H POC Glucose Lactic Acid 4.70 H* Uric Acid Calcium Magnesium Ferritin Total Bilirubin AST 81 H Lactate Dehydrogenase Total Creatine Kinase C-Reactive Protein Total Protein 5.7 L Albumin 2.8 L TSH Free T3 Index Urine WBC (Auto) Urine Creatinine Salicylates Acetaminophen Valproic Acid SARS-CoV-2 (PCR) 07/09/22 07/09/22 07/09/22 04:40 05:35 08:14 WBC RBC Hgb Hct MCV 102 H MCH 33 H RDW Plt Count 74 L [place] % (Auto) Seg Neutrophils % Seg Neutrophils # PT APTT D-Dimer ABG pH ABG pO2 172.1 H ABG HCO3 ABG O2 Saturation 99.1 H ABG Base Excess -2.8 L ABG Hemoglobin Oxyhemoglobin Sodium Potassium Chloride Carbon Dioxide BUN Creatinine Glucose POC Glucose 108 H Lactic Acid Uric Acid Calcium Magnesium Ferritin Total Bilirubin AST Lactate Dehydrogenase Total Creatine Kinase C-Reactive Protein Total Protein Albumin TSH Free T3 Index Urine WBC (Auto) Urine Creatinine Salicylates Acetaminophen Valproic Acid SARS-CoV-2 (PCR) 07/09/22 07/09/22 07/09/22 11:16 11:27 16:20 WBC RBC Hgb Hct MCV MCH RDW Plt Count [place] % (Auto) Seg Neutrophils % Seg Neutrophils # PT APTT D-Dimer ABG pH ABG pO2 ABG HCO3 ABG O2 Saturation ABG Base Excess ABG Hemoglobin Oxyhemoglobin Sodium 155 H Potassium Chloride 121.3 H Carbon Dioxide BUN 21 H Creatinine Glucose 170 H POC Glucose 173 H 190 H Lactic Acid Uric Acid Calcium Magnesium Ferritin Total Bilirubin AST Lactate Dehydrogenase Total Creatine Kinase C-Reactive Protein Total Protein Albumin TSH Free T3 Index Urine WBC (Auto) Urine Creatinine Salicylates Acetaminophen Valproic Acid SARS-CoV-2 (PCR) 07/09/22 07/10/22 07/10/22 17:16 00:04 04:21 WBC RBC Hgb Hct MCV MCH RDW Plt Count [place] % (Auto) Seg Neutrophils % Seg Neutrophils # PT APTT D-Dimer ABG pH ABG pO2 ABG HCO3 ABG O2 Saturation ABG Base Excess ABG Hemoglobin Oxyhemoglobin Sodium 149 H 150 H Potassium Chloride 115.6 H 115.0 H Carbon Dioxide BUN 18 H Creatinine 0.5 L Glucose 207 H 178 H POC Glucose 180 H Lactic Acid Uric Acid Calcium 7.9 L Magnesium Ferritin Total Bilirubin AST 89 H Lactate Dehydrogenase 431 H Total Creatine Kinase C-Reactive Protein Total Protein 4.9 L Albumin 2.5 L TSH Free T3 Index Urine WBC (Auto) Urine Creatinine Salicylates Acetaminophen Valproic Acid SARS-CoV-2 (PCR) 07/10/22 07/10/22 07/10/22 04:21 04:21 04:21 WBC 11.8 H RBC 3.52 L Hgb Hct MCV 99 H MCH 33 H RDW Plt Count 67 L [place] % (Auto) Seg Neutrophils % Seg Neutrophils # PT APTT D-Dimer 585.71 H ABG pH ABG pO2 ABG HCO3 ABG O2 Saturation ABG Base Excess ABG Hemoglobin Oxyhemoglobin Sodium Potassium Chloride Carbon Dioxide BUN Creatinine Glucose POC Glucose Lactic Acid Uric Acid Calcium Magnesium Ferritin 631.3 H Total Bilirubin AST Lactate Dehydrogenase Total Creatine Kinase C-Reactive Protein Total Protein Albumin TSH Free T3 Index Urine WBC (Auto) Urine Creatinine Salicylates Acetaminophen Valproic Acid SARS-CoV-2 (PCR) 07/10/22 07/10/22 07/10/22 04:21 04:55 05:26 WBC RBC Hgb Hct MCV MCH RDW Plt Count [place] % (Auto) Seg Neutrophils % Seg Neutrophils # PT APTT D-Dimer ABG pH ABG pO2 76.8 L ABG HCO3 ABG O2 Saturation ABG Base Excess ABG Hemoglobin 10.4 L Oxyhemoglobin 94.5 L Sodium Potassium Chloride Carbon Dioxide BUN Creatinine Glucose POC Glucose 147 H Lactic Acid 2.50 H* Uric Acid Calcium Magnesium Ferritin Total Bilirubin AST Lactate Dehydrogenase Total Creatine Kinase C-Reactive Protein Total Protein Albumin TSH Free T3 Index Urine WBC (Auto) Urine Creatinine Salicylates Acetaminophen Valproic Acid SARS-CoV-2 (PCR) 07/10/22 07/10/22 07/10/22 08:24 11:31 12:53 WBC RBC Hgb Hct MCV MCH RDW Plt Count [place] % (Auto) Seg Neutrophils % Seg Neutrophils # PT APTT D-Dimer ABG pH ABG pO2 ABG HCO3 ABG O2 Saturation ABG Base Excess ABG Hemoglobin Oxyhemoglobin Sodium Potassium Chloride 110.9 H Carbon Dioxide BUN Creatinine 0.5 L Glucose 200 H POC Glucose 166 H Lactic Acid 2.10 H* Uric Acid Calcium 8.3 L Magnesium Ferritin Total Bilirubin AST Lactate Dehydrogenase Total Creatine Kinase C-Reactive Protein Total Protein Albumin TSH Free T3 Index Urine WBC (Auto) Urine Creatinine Salicylates Acetaminophen Valproic Acid SARS-CoV-2 (PCR) 07/10/22 07/10/22 07/10/22 17:37 18:53 23:30 WBC RBC Hgb Hct MCV MCH RDW Plt Count [place] % (Auto) Seg Neutrophils % Seg Neutrophils # PT APTT D-Dimer ABG pH ABG pO2 ABG HCO3 ABG O2 Saturation ABG Base Excess ABG Hemoglobin Oxyhemoglobin Sodium Potassium Chloride 109.5 H 110.2 H Carbon Dioxide BUN Creatinine 0.5 L 0.5 L Glucose 243 H 208 H POC Glucose 237 H Lactic Acid Uric Acid Calcium 8.1 L 8.1 L Magnesium Ferritin Total Bilirubin AST Lactate Dehydrogenase Total Creatine Kinase C-Reactive Protein Total Protein Albumin TSH Free T3 Index Urine WBC (Auto) Urine Creatinine Salicylates Acetaminophen Valproic Acid SARS-CoV-2 (PCR) 07/10/22 07/11/22 07/11/22 23:57 04:00 04:15 WBC 11.2 H RBC Hgb Hct MCV 99 H MCH RDW Plt Count 73 L [place] % (Auto) Seg Neutrophils % Seg Neutrophils # PT APTT D-Dimer ABG pH ABG pO2 107.4 H ABG HCO3 ABG O2 Saturation ABG Base Excess ABG Hemoglobin Oxyhemoglobin Sodium Potassium Chloride Carbon Dioxide BUN Creatinine Glucose POC Glucose 195 H Lactic Acid Uric Acid Calcium Magnesium Ferritin Total Bilirubin AST Lactate Dehydrogenase Total Creatine Kinase C-Reactive Protein Total Protein Albumin TSH Free T3 Index Urine WBC (Auto) Urine Creatinine Salicylates Acetaminophen Valproic Acid SARS-CoV-2 (PCR) 07/11/22 07/11/22 07/11/22 05:40 05:40 06:06 WBC RBC Hgb Hct MCV MCH RDW Plt Count [place] % (Auto) Seg Neutrophils % Seg Neutrophils # PT APTT D-Dimer ABG pH ABG pO2 ABG HCO3 ABG O2 Saturation ABG Base Excess ABG Hemoglobin Oxyhemoglobin Sodium Potassium Chloride 109.8 H Carbon Dioxide BUN Creatinine 0.5 L Glucose 160 H POC Glucose 145 H Lactic Acid Uric Acid Calcium 8.3 L Magnesium Ferritin Total Bilirubin AST Lactate Dehydrogenase Total Creatine Kinase 1745 H C-Reactive Protein Total Protein Albumin TSH Free T3 Index Urine WBC (Auto) Urine Creatinine Salicylates Acetaminophen Valproic Acid SARS-CoV-2 (PCR) 07/11/22 07/11/22 07/11/22 11:55 11:59 17:44 WBC RBC Hgb Hct MCV MCH RDW Plt Count [place] % (Auto) Seg Neutrophils % Seg Neutrophils # PT APTT D-Dimer ABG pH ABG pO2 ABG HCO3 ABG O2 Saturation ABG Base Excess ABG Hemoglobin Oxyhemoglobin Sodium Potassium Chloride 107.8 H Carbon Dioxide BUN Creatinine 0.5 L Glucose 150 H POC Glucose 150 H 182 H Lactic Acid Uric Acid Calcium 8.2 L Magnesium Ferritin Total Bilirubin AST Lactate Dehydrogenase Total Creatine Kinase C-Reactive Protein Total Protein Albumin TSH Free T3 Index Urine WBC (Auto) Urine Creatinine Salicylates Acetaminophen Valproic Acid SARS-CoV-2 (PCR) 07/11/22 07/12/22 07/12/22 17:50 00:10 00:12 WBC RBC Hgb Hct MCV MCH RDW Plt Count [place] % (Auto) Seg Neutrophils % Seg Neutrophils # PT APTT D-Dimer ABG pH ABG pO2 ABG HCO3 ABG O2 Saturation ABG Base Excess ABG Hemoglobin Oxyhemoglobin Sodium Potassium Chloride 108.4 H Carbon Dioxide BUN Creatinine 0.5 L 0.4 L Glucose 191 H 163 H POC Glucose 154 H Lactic Acid Uric Acid Calcium 8.2 L 7.9 L Magnesium Ferritin Total Bilirubin AST Lactate Dehydrogenase Total Creatine Kinase C-Reactive Protein Total Protein Albumin TSH Free T3 Index Urine WBC (Auto) Urine Creatinine Salicylates Acetaminophen Valproic Acid SARS-CoV-2 (PCR) 07/12/22 07/12/22 07/12/22 04:00 04:00 04:00 WBC RBC Hgb Hct MCV MCH RDW Plt Count [place] % (Auto) Seg Neutrophils % Seg Neutrophils # PT APTT D-Dimer 925.80 H ABG pH ABG pO2 ABG HCO3 ABG O2 Saturation ABG Base Excess ABG Hemoglobin Oxyhemoglobin Sodium Potassium Chloride Carbon Dioxide BUN Creatinine Glucose POC Glucose Lactic Acid Uric Acid Calcium Magnesium Ferritin 519.5 H Total Bilirubin AST Lactate Dehydrogenase 444 H Total Creatine Kinase C-Reactive Protein Total Protein Albumin TSH Free T3 Index Urine WBC (Auto) Urine Creatinine Salicylates Acetaminophen Valproic Acid SARS-CoV-2 (PCR) 07/12/22 07/12/22 07/12/22 04:00 05:00 05:03 WBC 11.7 H RBC 3.33 L Hgb Hct MCV 99 H MCH 33 H RDW Plt Count 68 L [place] % (Auto) Seg Neutrophils % Seg Neutrophils # PT APTT D-Dimer ABG pH 7.453 H ABG pO2 107.9 H ABG HCO3 27.9 H ABG O2 Saturation ABG Base Excess 3.7 H ABG Hemoglobin 10.9 L Oxyhemoglobin Sodium Potassium Chloride Carbon Dioxide BUN Creatinine Glucose POC Glucose 174 H Lactic Acid Uric Acid Calcium Magnesium Ferritin Total Bilirubin AST Lactate Dehydrogenase Total Creatine Kinase C-Reactive Protein Total Protein Albumin TSH Free T3 Index Urine WBC (Auto) Urine Creatinine Salicylates Acetaminophen Valproic Acid SARS-CoV-2 (PCR) 07/12/22 07/12/22 07/12/22 12:15 17:18 23:14 WBC RBC Hgb Hct MCV MCH RDW Plt Count [place] % (Auto) Seg Neutrophils % Seg Neutrophils # PT APTT D-Dimer ABG pH ABG pO2 ABG HCO3 ABG O2 Saturation ABG Base Excess ABG Hemoglobin Oxyhemoglobin Sodium Potassium Chloride Carbon Dioxide BUN Creatinine Glucose POC Glucose 154 H 154 H 167 H Lactic Acid Uric Acid Calcium Magnesium Ferritin Total Bilirubin AST Lactate Dehydrogenase Total Creatine Kinase C-Reactive Protein Total Protein Albumin TSH Free T3 Index Urine WBC (Auto) Urine Creatinine Salicylates Acetaminophen Valproic Acid SARS-CoV-2 (PCR) 07/13/22 07/13/22 07/13/22 04:00 04:10 05:14 WBC RBC 3.17 L Hgb Hct MCV 98 H MCH 34 H RDW Plt Count 75 L [place] % (Auto) Seg Neutrophils % Seg Neutrophils # PT APTT D-Dimer ABG pH ABG pO2 ABG HCO3 ABG O2 Saturation ABG Base Excess ABG Hemoglobin Oxyhemoglobin Sodium Potassium Chloride Carbon Dioxide BUN Creatinine 0.4 L Glucose 136 H POC Glucose 140 H Lactic Acid Uric Acid Calcium Magnesium Ferritin Total Bilirubin AST Lactate Dehydrogenase Total Creatine Kinase C-Reactive Protein Total Protein Albumin TSH Free T3 Index Urine WBC (Auto) Urine Creatinine Salicylates Acetaminophen Valproic Acid SARS-CoV-2 (PCR) 07/13/22 07/13/22 07/13/22 12:03 14:25 17:19 WBC RBC Hgb Hct MCV MCH RDW Plt Count [place] % (Auto) Seg Neutrophils % Seg Neutrophils # PT APTT D-Dimer ABG pH 7.478 H ABG pO2 118.1 H ABG HCO3 28.2 H ABG O2 Saturation ABG Base Excess 4.5 H ABG Hemoglobin Oxyhemoglobin Sodium Potassium Chloride Carbon Dioxide BUN Creatinine Glucose POC Glucose 193 H 189 H Lactic Acid Uric Acid Calcium Magnesium Ferritin Total Bilirubin AST Lactate Dehydrogenase Total Creatine Kinase C-Reactive Protein Total Protein Albumin TSH Free T3 Index Urine WBC (Auto) Urine Creatinine Salicylates Acetaminophen Valproic Acid SARS-CoV-2 (PCR) 07/13/22 07/13/22 07/14/22 23:52 Unknown 06:18 WBC RBC Hgb Hct MCV MCH RDW Plt Count [place] % (Auto) Seg Neutrophils % Seg Neutrophils # PT APTT D-Dimer ABG pH 7.465 H ABG pO2 128.8 H ABG HCO3 29.0 H ABG O2 Saturation ABG Base Excess 4.9 H ABG Hemoglobin 10.3 L Oxyhemoglobin Sodium Potassium Chloride Carbon Dioxide BUN Creatinine Glucose POC Glucose 174 H 167 H Lactic Acid Uric Acid Calcium Magnesium Ferritin Total Bilirubin AST Lactate Dehydrogenase Total Creatine Kinase C-Reactive Protein Total Protein Albumin TSH Free T3 Index Urine WBC (Auto) Urine Creatinine Salicylates Acetaminophen Valproic Acid SARS-CoV-2 (PCR) 07/14/22 07/14/22 07/15/22 11:34 17:20 00:25 WBC RBC Hgb Hct MCV MCH RDW Plt Count [place] % (Auto) Seg Neutrophils % Seg Neutrophils # PT APTT D-Dimer ABG pH ABG pO2 ABG HCO3 ABG O2 Saturation ABG Base Excess ABG Hemoglobin Oxyhemoglobin Sodium Potassium Chloride Carbon Dioxide BUN Creatinine Glucose POC Glucose 187 H 221 H 172 H Lactic Acid Uric Acid Calcium Magnesium Ferritin Total Bilirubin AST Lactate Dehydrogenase Total Creatine Kinase C-Reactive Protein Total Protein Albumin TSH Free T3 Index Urine WBC (Auto) Urine Creatinine Salicylates Acetaminophen Valproic Acid SARS-CoV-2 (PCR) 07/15/22 07/15/22 07/15/22 04:00 04:00 05:49 WBC 11.4 H RBC 3.13 L Hgb Hct MCV 98 H MCH 33 H RDW Plt Count 98 L [place] % (Auto) Seg Neutrophils % Seg Neutrophils # PT APTT D-Dimer ABG pH ABG pO2 ABG HCO3 ABG O2 Saturation ABG Base Excess ABG Hemoglobin Oxyhemoglobin Sodium Potassium Chloride Carbon Dioxide 34 H BUN Creatinine 0.4 L Glucose 126 H POC Glucose 143 H Lactic Acid Uric Acid Calcium Magnesium Ferritin Total Bilirubin AST Lactate Dehydrogenase Total Creatine Kinase C-Reactive Protein Total Protein Albumin TSH Free T3 Index Urine WBC (Auto) Urine Creatinine Salicylates Acetaminophen Valproic Acid SARS-CoV-2 (PCR) 07/15/22 07/15/22 07/16/22 11:19 16:16 00:19 WBC RBC Hgb Hct MCV MCH RDW Plt Count [place] % (Auto) Seg Neutrophils % Seg Neutrophils # PT APTT D-Dimer ABG pH ABG pO2 ABG HCO3 ABG O2 Saturation ABG Base Excess ABG Hemoglobin Oxyhemoglobin Sodium Potassium Chloride Carbon Dioxide BUN Creatinine Glucose POC Glucose 158 H 227 H 153 H Lactic Acid Uric Acid Calcium Magnesium Ferritin Total Bilirubin AST Lactate Dehydrogenase Total Creatine Kinase C-Reactive Protein Total Protein Albumin TSH Free T3 Index Urine WBC (Auto) Urine Creatinine Salicylates Acetaminophen Valproic Acid SARS-CoV-2 (PCR) 07/16/22 07/16/22 07/16/22 04:20 04:20 11:28 WBC RBC 3.16 L Hgb Hct MCV 99 H MCH 33 H RDW Plt Count 101 L [place] % (Auto) Seg Neutrophils % Seg Neutrophils # PT APTT D-Dimer ABG pH ABG pO2 ABG HCO3 ABG O2 Saturation ABG Base Excess ABG Hemoglobin Oxyhemoglobin Sodium Potassium Chloride Carbon Dioxide 36 H BUN 18 H Creatinine 0.4 L Glucose 139 H POC Glucose 158 H Lactic Acid Uric Acid Calcium Magnesium Ferritin Total Bilirubin AST Lactate Dehydrogenase Total Creatine Kinase C-Reactive Protein Total Protein Albumin TSH Free T3 Index Urine WBC (Auto) Urine Creatinine Salicylates Acetaminophen Valproic Acid SARS-CoV-2 (PCR) 07/16/22 07/17/22 07/17/22 16:30 00:07 05:46 WBC RBC Hgb Hct MCV MCH RDW Plt Count [place] % (Auto) Seg Neutrophils % Seg Neutrophils # PT APTT D-Dimer ABG pH ABG pO2 ABG HCO3 ABG O2 Saturation ABG Base Excess ABG Hemoglobin Oxyhemoglobin Sodium Potassium Chloride Carbon Dioxide BUN Creatinine Glucose POC Glucose 201 H 139 H 123 H Lactic Acid Uric Acid Calcium Magnesium Ferritin Total Bilirubin AST Lactate Dehydrogenase Total Creatine Kinase C-Reactive Protein Total Protein Albumin TSH Free T3 Index Urine WBC (Auto) Urine Creatinine Salicylates Acetaminophen Valproic Acid SARS-CoV-2 (PCR) 07/17/22 07/17/22 07/17/22 13:30 17:51 23:49 WBC RBC Hgb Hct MCV MCH RDW Plt Count [place] % (Auto) Seg Neutrophils % Seg Neutrophils # PT APTT D-Dimer ABG pH ABG pO2 ABG HCO3 ABG O2 Saturation ABG Base Excess ABG Hemoglobin Oxyhemoglobin Sodium Potassium Chloride Carbon Dioxide BUN Creatinine Glucose POC Glucose 185 H 219 H 133 H Lactic Acid Uric Acid Calcium Magnesium Ferritin Total Bilirubin AST Lactate Dehydrogenase Total Creatine Kinase C-Reactive Protein Total Protein Albumin TSH Free T3 Index Urine WBC (Auto) Urine Creatinine Salicylates Acetaminophen Valproic Acid SARS-CoV-2 (PCR) 07/18/22 07/18/22 07/18/22 04:00 04:00 04:00 WBC 12.2 H RBC 3.34 L Hgb Hct MCV 100 H MCH 33 H RDW Plt Count 113 L [place] % (Auto) Seg Neutrophils % 77.3 H Seg Neutrophils # 9.4 H PT APTT D-Dimer ABG pH 7.508 H ABG pO2 115.9 H ABG HCO3 33.4 H ABG O2 Saturation ABG Base Excess 9.4 H ABG Hemoglobin 11.7 L Oxyhemoglobin Sodium Potassium Chloride Carbon Dioxide 35 H BUN Creatinine 0.4 L Glucose 130 H POC Glucose Lactic Acid Uric Acid Calcium Magnesium Ferritin Total Bilirubin AST Lactate Dehydrogenase Total Creatine Kinase C-Reactive Protein Total Protein Albumin TSH Free T3 Index Urine WBC (Auto) Urine Creatinine Salicylates Acetaminophen Valproic Acid SARS-CoV-2 (PCR) 07/18/22 07/18/22 07/18/22 04:42 12:31 12:31 WBC RBC Hgb Hct MCV MCH RDW Plt Count [place] % (Auto) Seg Neutrophils % Seg Neutrophils # PT APTT D-Dimer ABG pH ABG pO2 ABG HCO3 ABG O2 Saturation ABG Base Excess ABG Hemoglobin Oxyhemoglobin Sodium Potassium Chloride Carbon Dioxide BUN Creatinine Glucose POC Glucose 134 H Lactic Acid Uric Acid Calcium Magnesium Ferritin Total Bilirubin AST Lactate Dehydrogenase Total Creatine Kinase C-Reactive Protein Total Protein Albumin TSH 9.750 H Free T3 Index 1.7 L Urine WBC (Auto) Urine Creatinine Salicylates Acetaminophen Valproic Acid SARS-CoV-2 (PCR) 07/18/22 07/18/22 07/19/22 12:33 17:39 00:43 WBC RBC Hgb Hct MCV MCH RDW Plt Count [place] % (Auto) Seg Neutrophils % Seg Neutrophils # PT APTT D-Dimer ABG pH ABG pO2 ABG HCO3 ABG O2 Saturation ABG Base Excess ABG Hemoglobin Oxyhemoglobin Sodium Potassium Chloride Carbon Dioxide BUN Creatinine Glucose POC Glucose 172 H 164 H 132 H Lactic Acid Uric Acid Calcium Magnesium Ferritin Total Bilirubin AST Lactate Dehydrogenase Total Creatine Kinase C-Reactive Protein Total Protein Albumin TSH Free T3 Index Urine WBC (Auto) Urine Creatinine Salicylates Acetaminophen Valproic Acid SARS-CoV-2 (PCR) 07/19/22 07/19/22 07/19/22 05:08 12:30 17:42 WBC RBC Hgb Hct MCV MCH RDW Plt Count [place] % (Auto) Seg Neutrophils % Seg Neutrophils # PT APTT D-Dimer ABG pH ABG pO2 ABG HCO3 ABG O2 Saturation ABG Base Excess ABG Hemoglobin Oxyhemoglobin Sodium Potassium Chloride Carbon Dioxide BUN Creatinine Glucose POC Glucose 143 H 159 H 139 H Lactic Acid Uric Acid Calcium Magnesium Ferritin Total Bilirubin AST Lactate Dehydrogenase Total Creatine Kinase C-Reactive Protein Total Protein Albumin TSH Free T3 Index Urine WBC (Auto) Urine Creatinine Salicylates Acetaminophen Valproic Acid SARS-CoV-2 (PCR) 07/19/22 07/20/22 07/20/22 23:26 05:30 06:03 WBC RBC Hgb Hct MCV MCH RDW Plt Count [place] % (Auto) Seg Neutrophils % Seg Neutrophils # PT APTT D-Dimer ABG pH 7.503 H ABG pO2 99.1 H ABG HCO3 32.8 H ABG O2 Saturation ABG Base Excess 8.8 H ABG Hemoglobin 9.7 L Oxyhemoglobin Sodium Potassium Chloride Carbon Dioxide BUN Creatinine Glucose POC Glucose 144 H 146 H Lactic Acid Uric Acid Calcium Magnesium Ferritin Total Bilirubin AST Lactate Dehydrogenase Total Creatine Kinase C-Reactive Protein Total Protein Albumin TSH Free T3 Index Urine WBC (Auto) Urine Creatinine Salicylates Acetaminophen Valproic Acid SARS-CoV-2 (PCR) 07/20/22 07/20/22 07/20/22 12:15 17:24 23:44 WBC RBC Hgb Hct MCV MCH RDW Plt Count [place] % (Auto) Seg Neutrophils % Seg Neutrophils # PT APTT D-Dimer ABG pH ABG pO2 ABG HCO3 ABG O2 Saturation ABG Base Excess ABG Hemoglobin Oxyhemoglobin Sodium Potassium Chloride Carbon Dioxide BUN Creatinine Glucose POC Glucose 138 H 135 H 131 H Lactic Acid Uric Acid Calcium Magnesium Ferritin Total Bilirubin AST Lactate Dehydrogenase Total Creatine Kinase C-Reactive Protein Total Protein Albumin TSH Free T3 Index Urine WBC (Auto) Urine Creatinine Salicylates Acetaminophen Valproic Acid SARS-CoV-2 (PCR) 07/21/22 07/21/22 07/21/22 04:00 04:00 05:13 WBC RBC 2.92 L Hgb 9.6 L Hct 29.0 L MCV 99 H MCH 33 H RDW 15.6 H Plt Count 136 L [place] % (Auto) Seg Neutrophils % Seg Neutrophils # PT APTT D-Dimer ABG pH ABG pO2 ABG HCO3 ABG O2 Saturation ABG Base Excess ABG Hemoglobin Oxyhemoglobin Sodium Potassium Chloride Carbon Dioxide 32 H BUN Creatinine 0.3 L Glucose 133 H POC Glucose 142 H Lactic Acid Uric Acid Calcium 8.3 L Magnesium Ferritin Total Bilirubin AST Lactate Dehydrogenase Total Creatine Kinase C-Reactive Protein Total Protein Albumin TSH Free T3 Index Urine WBC (Auto) Urine Creatinine Salicylates Acetaminophen Valproic Acid SARS-CoV-2 (PCR) 07/21/22 07/21/22 07/21/22 06:16 11:48 16:08 WBC RBC Hgb Hct MCV MCH RDW Plt Count [place] % (Auto) Seg Neutrophils % Seg Neutrophils # PT APTT D-Dimer ABG pH ABG pO2 ABG HCO3 ABG O2 Saturation ABG Base Excess ABG Hemoglobin Oxyhemoglobin Sodium Potassium Chloride Carbon Dioxide BUN Creatinine Glucose POC Glucose 149 H 124 H 139 H Lactic Acid Uric Acid Calcium Magnesium Ferritin Total Bilirubin AST Lactate Dehydrogenase Total Creatine Kinase C-Reactive Protein Total Protein Albumin TSH Free T3 Index Urine WBC (Auto) Urine Creatinine Salicylates Acetaminophen Valproic Acid SARS-CoV-2 (PCR) 07/22/22 07/22/22 07/22/22 00:05 04:00 04:13 WBC RBC 2.90 L Hgb 9.5 L Hct 28.9 L MCV 100 H MCH 33 H RDW 15.5 H Plt Count [place] % (Auto) 10.0 H Seg Neutrophils % Seg Neutrophils # PT APTT D-Dimer ABG pH ABG pO2 ABG HCO3 ABG O2 Saturation ABG Base Excess ABG Hemoglobin Oxyhemoglobin Sodium Potassium Chloride Carbon Dioxide 31 H BUN Creatinine 0.4 L Glucose 105 H POC Glucose 143 H Lactic Acid Uric Acid Calcium Magnesium Ferritin Total Bilirubin AST Lactate Dehydrogenase Total Creatine Kinase C-Reactive Protein Total Protein Albumin TSH Free T3 Index Urine WBC (Auto) Urine Creatinine Salicylates Acetaminophen Valproic Acid SARS-CoV-2 (PCR) 07/22/22 07/23/22 07/23/22 11:03 04:25 04:25 WBC RBC 2.71 L Hgb 9.1 L Hct 27.0 L MCV 100 H MCH 33 H RDW 15.4 H Plt Count [place] % (Auto) Seg Neutrophils % Seg Neutrophils # PT APTT D-Dimer ABG pH ABG pO2 ABG HCO3 ABG O2 Saturation ABG Base Excess ABG Hemoglobin Oxyhemoglobin Sodium Potassium Chloride Carbon Dioxide 33 H BUN Creatinine 0.4 L Glucose POC Glucose 111 H Lactic Acid Uric Acid Calcium 8.3 L Magnesium Ferritin Total Bilirubin AST Lactate Dehydrogenase Total Creatine Kinase C-Reactive Protein Total Protein Albumin TSH Free T3 Index Urine WBC (Auto) Urine Creatinine Salicylates Acetaminophen Valproic Acid SARS-CoV-2 (PCR) 07/23/22 07/23/22 07/23/22 06:14 11:09 23:34 WBC RBC Hgb Hct MCV MCH RDW Plt Count [place] % (Auto) Seg Neutrophils % Seg Neutrophils # PT APTT D-Dimer ABG pH ABG pO2 ABG HCO3 ABG O2 Saturation ABG Base Excess ABG Hemoglobin Oxyhemoglobin Sodium Potassium Chloride Carbon Dioxide BUN Creatinine Glucose POC Glucose 106 H 117 H 115 H Lactic Acid Uric Acid Calcium Magnesium Ferritin Total Bilirubin AST Lactate Dehydrogenase Total Creatine Kinase C-Reactive Protein Total Protein Albumin TSH Free T3 Index Urine WBC (Auto) Urine Creatinine Salicylates Acetaminophen Valproic Acid SARS-CoV-2 (PCR) 07/24/22 07/24/22 05:24 11:25 WBC RBC Hgb Hct MCV MCH RDW Plt Count [place] % (Auto) Seg Neutrophils % Seg Neutrophils # PT APTT D-Dimer ABG pH ABG pO2 ABG HCO3 ABG O2 Saturation ABG Base Excess ABG Hemoglobin Oxyhemoglobin Sodium Potassium Chloride Carbon Dioxide BUN Creatinine Glucose POC Glucose 122 H 139 H Lactic Acid Uric Acid Calcium Magnesium Ferritin Total Bilirubin AST Lactate Dehydrogenase Total Creatine Kinase C-Reactive Protein Total Protein Albumin TSH Free T3 Index Urine WBC (Auto) Urine Creatinine Salicylates Acetaminophen Valproic Acid SARS-CoV-2 (PCR)
[2022-07-25] MEDS: INSULIN LISPRO 100 UNIT/ML SUB-Q SCH ×5 (00:47→23:58)
[2022-07-25 05:33] LABS: Hematocrit 28.5 % (30.3-42.9); Hemoglobin 9.4 gm/dl (10.1-14.3); Mean Corpuscular HGB Conc 33 % (30-34); Mean Corpuscular Volume 100 fl (79-97); Platelet Count 183 K/mm3 (140-440); Red Blood Count 2.86 M/mm3 (3.65-5.03); Red Cell Distribution Width 15.4 % (13.2-15.2)
[2022-07-25 05:49] LABS: Blood Urea Nitrogen 9 mg/dL (7-17); Hemolysis Index 0
[2022-07-25 06:00] LABS: BUN/Creatinine Ratio 30
[2022-07-25] MEDS: HEPARIN 5,000 UNIT/1 ML VIAL SUB-Q SCH ×2 (06:07→17:33)
[2022-07-25] MEDS: LEVOTHYROXINE 75 MCG TAB FEEDTUBE SCH (06:08)
[2022-07-25] MEDS: VALPROIC ACID 250 MG/5 ML ORAL LIQD FEEDTUBE SCH ×2 (09:18→21:28)
[2022-07-25] MEDS: SENNOSIDES/DOCUSATE SODIUM 8.6/50 MG TAB FEEDTUBE SCH ×2 (09:19→21:27)
[2022-07-25] MEDS: FAMOTIDINE 20 MG TAB FEEDTUBE SCH ×2 (09:19→21:26)
[2022-07-25] MEDS: K-PHOS NEUTRAL 250 MG TAB FEEDTUBE SCH ×4 (09:19→21:26)
[2022-07-25] MEDS: CHOLECALCIFEROL (VIT D3) 1000 UNIT (25 mcg) TAB FEEDTUBE SCH (09:28)
--- NOTE | 2022-07-25 10:24 | Progress Note ---
Assessment and Plan 76 y/o female with acute respiratory failure secondary to altered mental status, most likely from electrolyte abnormalities seen on chemistry, found to be COVID positive. 07/25/22: Daily PSV trials. Tube feeds going and tolerating. Need to consider at least PT consult to help with movement of lower ext. 07/24/22: Continue tube feeds. Continue daily PSV trials. Await placement, weanable but will need time. 07/23/22: Tube feeds back on. No PSV trials today but will do again tomorrow. Awaiting placement. 07/22/22: Trach and Peg hopefully today. 07/21/22: Did 6 hours of PSV yesterday. Trach and peg tomorrow. Check labs to make sure lytes are stable. 07/20/22: Trach/Peg Friday. Supportive care. 07/19/22: Appreciate Surgery. on Schedule for next week. Free T4 was normal. No current indication for stress dose steroids. Continue supportive care. 07/18/22: Family meeting: Discussed current mental state. Discussed negative work up so far to explain why mental state hasnt improved. Per family here, patient was better than what she is not but I had difficult time placing a time frame as to when that was, maybe May. It does appear that she has had a steady decline mentally and even stopped eating. There were talks prior to her admission here about Peg tube placement. Discussed the idea of trach and peg p lacement. Also explained to family that trach does not fix any underlying reason as to why the patient's mental state is the way it is. The family wasn't aware that she was brought in for altered mental status, they were told she had bradycardia. Nonetheless, the family as a whole wish to pursue trach and peg placement. Consulted Surgery and hopeful they will see soon. Continue supportive measures and continue daily PSV trials. TSH on admit was 13, will repeat but if T4 is normal, nothing to do. She also is not behaving like myxedema coma. Guarded prognosis. 07/17/22: steroids end today. Continue daily PSV trials. Will speak with family about next steps as today is day 10 of intubation and it does not appear that conventional extubation is in the near future. 07/16/22: Continue daily PSV trials. Will speak with family tomorrow as patient is not improving enough for conventional extubation, especially with frequent apnic events. Most likely patient will need trach and peg. 07/15/22: mental status is still unchanged. Eyes open but not tracking or following commands. Also going apnic on PSV trials. Most likely will need trach and peg given mental status has not improved. 07/12/22: Negative MRI for acute infarct. Na is normal. Continue to monitor. Daily PSV trials. Has been intubated now for 5 days. 07/11/22: for MRI today. Appreciate renal help, agree with signing off. Attempt daily PSV. Guarded prognosis. 07/10: follow up MRI. Get official EEG read but no status. Continue daily PSV trials. Guarded prognosis 07/09/22: Continue supportive measures. Continue to fix Na, if no improvement in mental state with normal sodium then will pursue MRI. Picc placed today. 07/08/22: No further sedation. 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 Consider neurology consult and may need to obtain MRI. Attempt PSV trials today. needs Picc line placed for group home access as patient is a difficult stick. Feed patient and monitor lytes. 1. Discontinue sedation 2. Wean FiO2 for sats >88% and PaO2 greater than 60 3. Agree with fluid resuscitation, patient needs free water 4. Will follow up with family to find out exactly what patient mental status was a facility CCT 31 minutes. Subjective Date of service: 07/25/22 Principal diagnosis: Hypernatremia Interval history: no acute events. Objective Vital Signs - 12hr 07/24/22 07/24/22 07/25/22 23:00 23:45 00:00 Temperature 99 F Pulse Rate 94 H 110 H 113 H Pulse Rate [ 103 H From Monitor] Respiratory 10 L 15 Rate Blood Pressure 101/57 101/57 119/71 O2 Sat by Pulse 100 100 96 Oximetry 07/25/22 07/25/22 07/25/22 01:00 02:00 03:01 Temperature Pulse Rate 110 H 95 H 111 H Pulse Rate [ From Monitor] Respiratory 15 13 11 L Rate Blood Pressure 105/66 107/63 113/82 O2 Sat by Pulse 98 100 100 Oximetry 07/25/22 07/25/22 07/25/22 03:59 04:00 04:01 Temperature 99.1 F Pulse Rate 105 H 90 105 H Pulse Rate [ 116 H From Monitor] Respiratory 17 15 Rate Blood Pressure 123/76 123/76 O2 Sat by Pulse 100 100 100 Oximetry 07/25/22 07/25/22 07/25/22 05:00 06:00 07:00 Temperature Pulse Rate 105 H 107 H 89 Pulse Rate [ From Monitor] Respiratory 14 9 L 10 L Rate Blood Pressure 106/70 125/62 105/57 O2 Sat by Pulse 100 100 100 Oximetry 07/25/22 07/25/22 07/25/22 08:00 09:00 10:01 Temperature 98.9 F Pulse Rate 97 H 111 H 102 H Pulse Rate [ 98 H From Monitor] Respiratory 13 11 L 9 L Rate Blood Pressure 113/62 113/62 117/81 O2 Sat by Pulse 100 99 100 Oximetry Constitutional: comatose ENT: other (orally intubated) Neck: supple Effort: normal Ascultation: Bilateral: clear Percussion: Bilateral: not dull Cardiovascular: regular rate and rhythm Gastrointestinal: normoactive bowel sounds, soft Extremities: no cyanosis, no edema Neurologic: unable to assess CBC and BMP: 07/25/22 04:22 07/25/22 04:22 ABG, PT/INR, D-dimer: ABG ABG pH 7.503 pH Units (7.350-7.450) H 07/20/22 05:30 ABG pCO2 42.7 mm Hg 07/20/22 05:30 ABG pO2 99.1 mm Hg (80.0-90.0) H 07/20/22 05:30 ABG O2 Saturation 97.8 % (95.0-99.0) 07/20/22 05:30 PT/INR, D-dimer PT 13.0 Sec. (12.2-14.9) 07/22/22 04:13 INR 0.87 (0.87-1.13) 07/22/22 04:13 D-Dimer 925.80 ng/mlDDU (0-234) H 07/12/22 04:00 Abnormal lab findings: Abnormal Labs 07/07/22 07/07/22 07/07/22 03:17 03:38 03:38 WBC RBC 5.43 H Hgb 18.2 H Hct 54.9 H MCV 101 H MCH 34 H RDW Plt Count 104 L [place] % (Auto) Seg Neutrophils % Seg Neutrophils # PT 15.0 H APTT 23.0 L D-Dimer ABG pH ABG pO2 ABG HCO3 ABG O2 Saturation ABG Base Excess ABG Hemoglobin Oxyhemoglobin Sodium Potassium Chloride Carbon Dioxide BUN Creatinine Glucose POC Glucose Lactic Acid Uric Acid Calcium Phosphorus Magnesium Ferritin Total Bilirubin AST Lactate Dehydrogenase Total Creatine Kinase C-Reactive Protein Total Protein Albumin TSH Free T3 Index Urine WBC (Auto) 7.0 H Urine Creatinine Salicylates Acetaminophen Valproic Acid SARS-CoV-2 (PCR) 07/07/22 07/07/22 07/07/22 03:38 03:38 03:38 WBC RBC Hgb Hct MCV MCH RDW Plt Count [place] % (Auto) Seg Neutrophils % Seg Neutrophils # PT APTT D-Dimer ABG pH ABG pO2 ABG HCO3 ABG O2 Saturation ABG Base Excess ABG Hemoglobin Oxyhemoglobin Sodium Potassium Chloride Carbon Dioxide BUN Creatinine Glucose POC Glucose Lactic Acid Uric Acid Calcium Phosphorus Magnesium 3.30 H Ferritin Total Bilirubin AST Lactate Dehydrogenase Total Creatine Kinase 1826 H C-Reactive Protein Total Protein Albumin TSH Free T3 Index Urine WBC (Auto) Urine Creatinine Salicylates < 0.3 L Acetaminophen 5.0 L Valproic Acid 7.0 L SARS-CoV-2 (PCR) 07/07/22 07/07/22 07/07/22 04:17 04:17 04:17 WBC RBC Hgb Hct MCV MCH RDW Plt Count [place] % (Auto) Seg Neutrophils % Seg Neutrophils # PT APTT D-Dimer ABG pH ABG pO2 ABG HCO3 ABG O2 Saturation ABG Base Excess ABG Hemoglobin Oxyhemoglobin Sodium 168 H* Potassium 3.2 L Chloride 122.2 H Carbon Dioxide BUN 52 H Creatinine Glucose 158 H POC Glucose Lactic Acid 3.50 H* Uric Acid Calcium 10.9 H Phosphorus Magnesium Ferritin Total Bilirubin 1.40 H AST 47 H Lactate Dehydrogenase Total Creatine Kinase C-Reactive Protein Total Protein Albumin TSH 12.790 H Free T3 Index Urine WBC (Auto) Urine Creatinine Salicylates Acetaminophen Valproic Acid SARS-CoV-2 (PCR) 07/07/22 07/07/22 07/07/22 04:17 07:43 09:35 WBC RBC Hgb Hct MCV MCH RDW Plt Count [place] % (Auto) Seg Neutrophils % Seg Neutrophils # PT APTT D-Dimer ABG pH ABG pO2 377.3 H ABG HCO3 ABG O2 Saturation 99.6 H ABG Base Excess -2.5 L ABG Hemoglobin Oxyhemoglobin Sodium Potassium Chloride Carbon Dioxide BUN Creatinine Glucose POC Glucose Lactic Acid 6.30 H* Uric Acid 13.5 H Calcium Phosphorus Magnesium Ferritin Total Bilirubin AST Lactate Dehydrogenase Total Creatine Kinase C-Reactive Protein Total Protein Albumin TSH Free T3 Index Urine WBC (Auto) Urine Creatinine Salicylates Acetaminophen Valproic Acid SARS-CoV-2 (PCR) 07/07/22 07/07/22 07/07/22 15:00 16:00 16:00 WBC RBC Hgb Hct MCV MCH RDW Plt Count [place] % (Auto) Seg Neutrophils % Seg Neutrophils # PT APTT D-Dimer ABG pH ABG pO2 ABG HCO3 ABG O2 Saturation ABG Base Excess ABG Hemoglobin Oxyhemoglobin Sodium 166 H* Potassium Chloride 124.8 H Carbon Dioxide 20 L BUN 41 H Creatinine Glucose 157 H POC Glucose Lactic Acid 7.00 H* Uric Acid Calcium Phosphorus Magnesium Ferritin Total Bilirubin AST 81 H Lactate Dehydrogenase Total Creatine Kinase C-Reactive Protein Total Protein Albumin TSH Free T3 Index Urine WBC (Auto) Urine Creatinine Salicylates Acetaminophen Valproic Acid SARS-CoV-2 (PCR) Positive A 07/07/22 07/07/22 07/07/22 16:45 23:42 23:42 WBC RBC Hgb Hct MCV MCH RDW Plt Count [place] % (Auto) Seg Neutrophils % Seg Neutrophils # PT APTT D-Dimer ABG pH ABG pO2 ABG HCO3 ABG O2 Saturation ABG Base Excess ABG Hemoglobin Oxyhemoglobin Sodium 165 H* Potassium 3.0 L Chloride 122.8 H Carbon Dioxide BUN 38 H Creatinine Glucose 232 H POC Glucose Lactic Acid 5.60 H* Uric Acid Calcium Phosphorus Magnesium Ferritin Total Bilirubin AST Lactate Dehydrogenase Total Creatine Kinase C-Reactive Protein Total Protein Albumin TSH Free T3 Index Urine WBC (Auto) Urine Creatinine 92.9 H Salicylates Acetaminophen Valproic Acid SARS-CoV-2 (PCR) 07/07/22 07/07/22 07/08/22 Unknown Unknown 05:30 WBC RBC Hgb Hct MCV MCH RDW Plt Count [place] % (Auto) Seg Neutrophils % Seg Neutrophils # PT APTT D-Dimer ABG pH 7.553 H 7.473 H ABG pO2 61.7 L 121.7 H ABG HCO3 ABG O2 Saturation 94.7 L ABG Base Excess 4.3 H ABG Hemoglobin 18.0 H Oxyhemoglobin 93.1 L Sodium 163 H* Potassium 6.3 H* D Chloride 123.7 H Carbon Dioxide BUN 42 H Creatinine Glucose 169 H POC Glucose Lactic Acid Uric Acid Calcium Phosphorus Magnesium Ferritin Total Bilirubin AST Lactate Dehydrogenase Total Creatine Kinase C-Reactive Protein Total Protein Albumin TSH Free T3 Index Urine WBC (Auto) Urine Creatinine Salicylates Acetaminophen Valproic Acid SARS-CoV-2 (PCR) 07/08/22 07/08/22 07/08/22 05:36 11:21 14:54 WBC 11.1 H RBC Hgb Hct MCV 101 H MCH 33 H RDW Plt Count 69 L [place] % (Auto) Seg Neutrophils % 82.0 H Seg Neutrophils # 9.1 H PT APTT D-Dimer ABG pH ABG pO2 ABG HCO3 ABG O2 Saturation ABG Base Excess ABG Hemoglobin Oxyhemoglobin Sodium Potassium Chloride Carbon Dioxide BUN Creatinine Glucose POC Glucose 174 H 148 H Lactic Acid Uric Acid Calcium Phosphorus Magnesium Ferritin Total Bilirubin AST Lactate Dehydrogenase Total Creatine Kinase C-Reactive Protein Total Protein Albumin TSH Free T3 Index Urine WBC (Auto) Urine Creatinine Salicylates Acetaminophen Valproic Acid SARS-CoV-2 (PCR) 07/08/22 07/08/22 07/08/22 14:54 14:54 14:54 WBC RBC Hgb Hct MCV MCH RDW Plt Count [place] % (Auto) Seg Neutrophils % Seg Neutrophils # PT APTT D-Dimer ABG pH ABG pO2 ABG HCO3 ABG O2 Saturation ABG Base Excess ABG Hemoglobin Oxyhemoglobin Sodium 163 H* Potassium 2.9 L* Chloride 123.7 H Carbon Dioxide BUN 30 H Creatinine Glucose 161 H POC Glucose Lactic Acid 6.10 H* Uric Acid Calcium Phosphorus Magnesium Ferritin Total Bilirubin AST 69 H Lactate Dehydrogenase Total Creatine Kinase 2335 H C-Reactive Protein Total Protein 5.6 L D Albumin 3.1 L TSH Free T3 Index Urine WBC (Auto) Urine Creatinine Salicylates Acetaminophen Valproic Acid SARS-CoV-2 (PCR) 07/08/22 07/08/22 07/08/22 14:54 14:54 14:54 WBC RBC Hgb Hct MCV MCH RDW Plt Count [place] % (Auto) Seg Neutrophils % Seg Neutrophils # PT APTT D-Dimer 499.72 H ABG pH ABG pO2 ABG HCO3 ABG O2 Saturation ABG Base Excess ABG Hemoglobin Oxyhemoglobin Sodium Potassium Chloride Carbon Dioxide BUN Creatinine Glucose POC Glucose Lactic Acid Uric Acid Calcium Phosphorus Magnesium Ferritin 722.1 H Total Bilirubin AST Lactate Dehydrogenase 455 H Total Creatine Kinase C-Reactive Protein 1.60 H Total Protein Albumin TSH Free T3 Index Urine WBC (Auto) Urine Creatinine Salicylates Acetaminophen Valproic Acid SARS-CoV-2 (PCR) 07/08/22 07/08/22 07/09/22 19:13 19:53 00:09 WBC RBC Hgb Hct MCV MCH RDW Plt Count [place] % (Auto) Seg Neutrophils % Seg Neutrophils # PT APTT D-Dimer ABG pH ABG pO2 ABG HCO3 ABG O2 Saturation ABG Base Excess ABG Hemoglobin Oxyhemoglobin Sodium 160 H Potassium 3.5 L D Chloride 122.0 H Carbon Dioxide 20 L BUN 28 H Creatinine Glucose 151 H POC Glucose 138 H Lactic Acid 5.70 H* Uric Acid Calcium Phosphorus Magnesium Ferritin Total Bilirubin AST Lactate Dehydrogenase Total Creatine Kinase C-Reactive Protein Total Protein Albumin TSH Free T3 Index Urine WBC (Auto) Urine Creatinine Salicylates Acetaminophen Valproic Acid SARS-CoV-2 (PCR) 07/09/22 07/09/22 07/09/22 00:45 03:21 03:21 WBC RBC Hgb Hct MCV MCH RDW Plt Count [place] % (Auto) Seg Neutrophils % Seg Neutrophils # PT APTT D-Dimer ABG pH ABG pO2 ABG HCO3 ABG O2 Saturation ABG Base Excess ABG Hemoglobin Oxyhemoglobin Sodium 158 H 157 H Potassium Chloride 124.2 H 125.0 H Carbon Dioxide 20 L 20 L BUN 25 H 24 H Creatinine Glucose 147 H 169 H POC Glucose Lactic Acid 4.70 H* Uric Acid Calcium Phosphorus Magnesium Ferritin Total Bilirubin AST 81 H Lactate Dehydrogenase Total Creatine Kinase C-Reactive Protein Total Protein 5.7 L Albumin 2.8 L TSH Free T3 Index Urine WBC (Auto) Urine Creatinine Salicylates Acetaminophen Valproic Acid SARS-CoV-2 (PCR) 07/09/22 07/09/22 07/09/22 04:40 05:35 08:14 WBC RBC Hgb Hct MCV 102 H MCH 33 H RDW Plt Count 74 L [place] % (Auto) Seg Neutrophils % Seg Neutrophils # PT APTT D-Dimer ABG pH ABG pO2 172.1 H ABG HCO3 ABG O2 Saturation 99.1 H ABG Base Excess -2.8 L ABG Hemoglobin Oxyhemoglobin Sodium Potassium Chloride Carbon Dioxide BUN Creatinine Glucose POC Glucose 108 H Lactic Acid Uric Acid Calcium Phosphorus Magnesium Ferritin Total Bilirubin AST Lactate Dehydrogenase Total Creatine Kinase C-Reactive Protein Total Protein Albumin TSH Free T3 Index Urine WBC (Auto) Urine Creatinine Salicylates Acetaminophen Valproic Acid SARS-CoV-2 (PCR) 07/09/22 07/09/22 07/09/22 11:16 11:27 16:20 WBC RBC Hgb Hct MCV MCH RDW Plt Count [place] % (Auto) Seg Neutrophils % Seg Neutrophils # PT APTT D-Dimer ABG pH ABG pO2 ABG HCO3 ABG O2 Saturation ABG Base Excess ABG Hemoglobin Oxyhemoglobin Sodium 155 H Potassium Chloride 121.3 H Carbon Dioxide BUN 21 H Creatinine Glucose 170 H POC Glucose 173 H 190 H Lactic Acid Uric Acid Calcium Phosphorus Magnesium Ferritin Total Bilirubin AST Lactate Dehydrogenase Total Creatine Kinase C-Reactive Protein Total Protein Albumin TSH Free T3 Index Urine WBC (Auto) Urine Creatinine Salicylates Acetaminophen Valproic Acid SARS-CoV-2 (PCR) 07/09/22 07/10/22 07/10/22 17:16 00:04 04:21 WBC RBC Hgb Hct MCV MCH RDW Plt Count [place] % (Auto) Seg Neutrophils % Seg Neutrophils # PT APTT D-Dimer ABG pH ABG pO2 ABG HCO3 ABG O2 Saturation ABG Base Excess ABG Hemoglobin Oxyhemoglobin Sodium 149 H 150 H Potassium Chloride 115.6 H 115.0 H Carbon Dioxide BUN 18 H Creatinine 0.5 L Glucose 207 H 178 H POC Glucose 180 H Lactic Acid Uric Acid Calcium 7.9 L Phosphorus Magnesium Ferritin Total Bilirubin AST 89 H Lactate Dehydrogenase 431 H Total Creatine Kinase C-Reactive Protein Total Protein 4.9 L Albumin 2.5 L TSH Free T3 Index Urine WBC (Auto) Urine Creatinine Salicylates Acetaminophen Valproic Acid SARS-CoV-2 (PCR) 07/10/22 07/10/22 07/10/22 04:21 04:21 04:21 WBC 11.8 H RBC 3.52 L Hgb Hct MCV 99 H MCH 33 H RDW Plt Count 67 L [place] % (Auto) Seg Neutrophils % Seg Neutrophils # PT APTT D-Dimer 585.71 H ABG pH ABG pO2 ABG HCO3 ABG O2 Saturation ABG Base Excess ABG Hemoglobin Oxyhemoglobin Sodium Potassium Chloride Carbon Dioxide BUN Creatinine Glucose POC Glucose Lactic Acid Uric Acid Calcium Phosphorus Magnesium Ferritin 631.3 H Total Bilirubin AST Lactate Dehydrogenase Total Creatine Kinase C-Reactive Protein Total Protein Albumin TSH Free T3 Index Urine WBC (Auto) Urine Creatinine Salicylates Acetaminophen Valproic Acid SARS-CoV-2 (PCR) 07/10/22 07/10/22 07/10/22 04:21 04:55 05:26 WBC RBC Hgb Hct MCV MCH RDW Plt Count [place] % (Auto) Seg Neutrophils % Seg Neutrophils # PT APTT D-Dimer ABG pH ABG pO2 76.8 L ABG HCO3 ABG O2 Saturation ABG Base Excess ABG Hemoglobin 10.4 L Oxyhemoglobin 94.5 L Sodium Potassium Chloride Carbon Dioxide BUN Creatinine Glucose POC Glucose 147 H Lactic Acid 2.50 H* Uric Acid Calcium Phosphorus Magnesium Ferritin Total Bilirubin AST Lactate Dehydrogenase Total Creatine Kinase C-Reactive Protein Total Protein Albumin TSH Free T3 Index Urine WBC (Auto) Urine Creatinine Salicylates Acetaminophen Valproic Acid SARS-CoV-2 (PCR) 07/10/22 07/10/22 07/10/22 08:24 11:31 12:53 WBC RBC Hgb Hct MCV MCH RDW Plt Count [place] % (Auto) Seg Neutrophils % Seg Neutrophils # PT APTT D-Dimer ABG pH ABG pO2 ABG HCO3 ABG O2 Saturation ABG Base Excess ABG Hemoglobin Oxyhemoglobin Sodium Potassium Chloride 110.9 H Carbon Dioxide BUN Creatinine 0.5 L Glucose 200 H POC Glucose 166 H Lactic Acid 2.10 H* Uric Acid Calcium 8.3 L Phosphorus Magnesium Ferritin Total Bilirubin AST Lactate Dehydrogenase Total Creatine Kinase C-Reactive Protein Total Protein Albumin TSH Free T3 Index Urine WBC (Auto) Urine Creatinine Salicylates Acetaminophen Valproic Acid SARS-CoV-2 (PCR) 07/10/22 07/10/22 07/10/22 17:37 18:53 23:30 WBC RBC Hgb Hct MCV MCH RDW Plt Count [place] % (Auto) Seg Neutrophils % Seg Neutrophils # PT APTT D-Dimer ABG pH ABG pO2 ABG HCO3 ABG O2 Saturation ABG Base Excess ABG Hemoglobin Oxyhemoglobin Sodium Potassium Chloride 109.5 H 110.2 H Carbon Dioxide BUN Creatinine 0.5 L 0.5 L Glucose 243 H 208 H POC Glucose 237 H Lactic Acid Uric Acid Calcium 8.1 L 8.1 L Phosphorus Magnesium Ferritin Total Bilirubin AST Lactate Dehydrogenase Total Creatine Kinase C-Reactive Protein Total Protein Albumin TSH Free T3 Index Urine WBC (Auto) Urine Creatinine Salicylates Acetaminophen Valproic Acid SARS-CoV-2 (PCR) 07/10/22 07/11/22 07/11/22 23:57 04:00 04:15 WBC 11.2 H RBC Hgb Hct MCV 99 H MCH RDW Plt Count 73 L [place] % (Auto) Seg Neutrophils % Seg Neutrophils # PT APTT D-Dimer ABG pH ABG pO2 107.4 H ABG HCO3 ABG O2 Saturation ABG Base Excess ABG Hemoglobin Oxyhemoglobin Sodium Potassium Chloride Carbon Dioxide BUN Creatinine Glucose POC Glucose 195 H Lactic Acid Uric Acid Calcium Phosphorus Magnesium Ferritin Total Bilirubin AST Lactate Dehydrogenase Total Creatine Kinase C-Reactive Protein Total Protein Albumin TSH Free T3 Index Urine WBC (Auto) Urine Creatinine Salicylates Acetaminophen Valproic Acid SARS-CoV-2 (PCR) 07/11/22 07/11/22 07/11/22 05:40 05:40 06:06 WBC RBC Hgb Hct MCV MCH RDW Plt Count [place] % (Auto) Seg Neutrophils % Seg Neutrophils # PT APTT D-Dimer ABG pH ABG pO2 ABG HCO3 ABG O2 Saturation ABG Base Excess ABG Hemoglobin Oxyhemoglobin Sodium Potassium Chloride 109.8 H Carbon Dioxide BUN Creatinine 0.5 L Glucose 160 H POC Glucose 145 H Lactic Acid Uric Acid Calcium 8.3 L Phosphorus Magnesium Ferritin Total Bilirubin AST Lactate Dehydrogenase Total Creatine Kinase 1745 H C-Reactive Protein Total Protein Albumin TSH Free T3 Index Urine WBC (Auto) Urine Creatinine Salicylates Acetaminophen Valproic Acid SARS-CoV-2 (PCR) 07/11/22 07/11/22 07/11/22 11:55 11:59 17:44 WBC RBC Hgb Hct MCV MCH RDW Plt Count [place] % (Auto) Seg Neutrophils % Seg Neutrophils # PT APTT D-Dimer ABG pH ABG pO2 ABG HCO3 ABG O2 Saturation ABG Base Excess ABG Hemoglobin Oxyhemoglobin Sodium Potassium Chloride 107.8 H Carbon Dioxide BUN Creatinine 0.5 L Glucose 150 H POC Glucose 150 H 182 H Lactic Acid Uric Acid Calcium 8.2 L Phosphorus Magnesium Ferritin Total Bilirubin AST Lactate Dehydrogenase Total Creatine Kinase C-Reactive Protein Total Protein Albumin TSH Free T3 Index Urine WBC (Auto) Urine Creatinine Salicylates Acetaminophen Valproic Acid SARS-CoV-2 (PCR) 07/11/22 07/12/22 07/12/22 17:50 00:10 00:12 WBC RBC Hgb Hct MCV MCH RDW Plt Count [place] % (Auto) Seg Neutrophils % Seg Neutrophils # PT APTT D-Dimer ABG pH ABG pO2 ABG HCO3 ABG O2 Saturation ABG Base Excess ABG Hemoglobin Oxyhemoglobin Sodium Potassium Chloride 108.4 H Carbon Dioxide BUN Creatinine 0.5 L 0.4 L Glucose 191 H 163 H POC Glucose 154 H Lactic Acid Uric Acid Calcium 8.2 L 7.9 L Phosphorus Magnesium Ferritin Total Bilirubin AST Lactate Dehydrogenase Total Creatine Kinase C-Reactive Protein Total Protein Albumin TSH Free T3 Index Urine WBC (Auto) Urine Creatinine Salicylates Acetaminophen Valproic Acid SARS-CoV-2 (PCR) 07/12/22 07/12/22 07/12/22 04:00 04:00 04:00 WBC RBC Hgb Hct MCV MCH RDW Plt Count [place] % (Auto) Seg Neutrophils % Seg Neutrophils # PT APTT D-Dimer 925.80 H ABG pH ABG pO2 ABG HCO3 ABG O2 Saturation ABG Base Excess ABG Hemoglobin Oxyhemoglobin Sodium Potassium Chloride Carbon Dioxide BUN Creatinine Glucose POC Glucose Lactic Acid Uric Acid Calcium Phosphorus Magnesium Ferritin 519.5 H Total Bilirubin AST Lactate Dehydrogenase 444 H Total Creatine Kinase C-Reactive Protein Total Protein Albumin TSH Free T3 Index Urine WBC (Auto) Urine Creatinine Salicylates Acetaminophen Valproic Acid SARS-CoV-2 (PCR) 07/12/22 07/12/22 07/12/22 04:00 05:00 05:03 WBC 11.7 H RBC 3.33 L Hgb Hct MCV 99 H MCH 33 H RDW Plt Count 68 L [place] % (Auto) Seg Neutrophils % Seg Neutrophils # PT APTT D-Dimer ABG pH 7.453 H ABG pO2 107.9 H ABG HCO3 27.9 H ABG O2 Saturation ABG Base Excess 3.7 H ABG Hemoglobin 10.9 L Oxyhemoglobin Sodium Potassium Chloride Carbon Dioxide BUN Creatinine Glucose POC Glucose 174 H Lactic Acid Uric Acid Calcium Phosphorus Magnesium Ferritin Total Bilirubin AST Lactate Dehydrogenase Total Creatine Kinase C-Reactive Protein Total Protein Albumin TSH Free T3 Index Urine WBC (Auto) Urine Creatinine Salicylates Acetaminophen Valproic Acid SARS-CoV-2 (PCR) 07/12/22 07/12/22 07/12/22 12:15 17:18 23:14 WBC RBC Hgb Hct MCV MCH RDW Plt Count [place] % (Auto) Seg Neutrophils % Seg Neutrophils # PT APTT D-Dimer ABG pH ABG pO2 ABG HCO3 ABG O2 Saturation ABG Base Excess ABG Hemoglobin Oxyhemoglobin Sodium Potassium Chloride Carbon Dioxide BUN Creatinine Glucose POC Glucose 154 H 154 H 167 H Lactic Acid Uric Acid Calcium Phosphorus Magnesium Ferritin Total Bilirubin AST Lactate Dehydrogenase Total Creatine Kinase C-Reactive Protein Total Protein Albumin TSH Free T3 Index Urine WBC (Auto) Urine Creatinine Salicylates Acetaminophen Valproic Acid SARS-CoV-2 (PCR) 07/13/22 07/13/22 07/13/22 04:00 04:10 05:14 WBC RBC 3.17 L Hgb Hct MCV 98 H MCH 34 H RDW Plt Count 75 L [place] % (Auto) Seg Neutrophils % Seg Neutrophils # PT APTT D-Dimer ABG pH ABG pO2 ABG HCO3 ABG O2 Saturation ABG Base Excess ABG Hemoglobin Oxyhemoglobin Sodium Potassium Chloride Carbon Dioxide BUN Creatinine 0.4 L Glucose 136 H POC Glucose 140 H Lactic Acid Uric Acid Calcium Phosphorus Magnesium Ferritin Total Bilirubin AST Lactate Dehydrogenase Total Creatine Kinase C-Reactive Protein Total Protein Albumin TSH Free T3 Index Urine WBC (Auto) Urine Creatinine Salicylates Acetaminophen Valproic Acid SARS-CoV-2 (PCR) 07/13/22 07/13/22 07/13/22 12:03 14:25 17:19 WBC RBC Hgb Hct MCV MCH RDW Plt Count [place] % (Auto) Seg Neutrophils % Seg Neutrophils # PT APTT D-Dimer ABG pH 7.478 H ABG pO2 118.1 H ABG HCO3 28.2 H ABG O2 Saturation ABG Base Excess 4.5 H ABG Hemoglobin Oxyhemoglobin Sodium Potassium Chloride Carbon Dioxide BUN Creatinine Glucose POC Glucose 193 H 189 H Lactic Acid Uric Acid Calcium Phosphorus Magnesium Ferritin Total Bilirubin AST Lactate Dehydrogenase Total Creatine Kinase C-Reactive Protein Total Protein Albumin TSH Free T3 Index Urine WBC (Auto) Urine Creatinine Salicylates Acetaminophen Valproic Acid SARS-CoV-2 (PCR) 07/13/22 07/13/22 07/14/22 23:52 Unknown 06:18 WBC RBC Hgb Hct MCV MCH RDW Plt Count [place] % (Auto) Seg Neutrophils % Seg Neutrophils # PT APTT D-Dimer ABG pH 7.465 H ABG pO2 128.8 H ABG HCO3 29.0 H ABG O2 Saturation ABG Base Excess 4.9 H ABG Hemoglobin 10.3 L Oxyhemoglobin Sodium Potassium Chloride Carbon Dioxide BUN Creatinine Glucose POC Glucose 174 H 167 H Lactic Acid Uric Acid Calcium Phosphorus Magnesium Ferritin Total Bilirubin AST Lactate Dehydrogenase Total Creatine Kinase C-Reactive Protein Total Protein Albumin TSH Free T3 Index Urine WBC (Auto) Urine Creatinine Salicylates Acetaminophen Valproic Acid SARS-CoV-2 (PCR) 07/14/22 07/14/22 07/15/22 11:34 17:20 00:25 WBC RBC Hgb Hct MCV MCH RDW Plt Count [place] % (Auto) Seg Neutrophils % Seg Neutrophils # PT APTT D-Dimer ABG pH ABG pO2 ABG HCO3 ABG O2 Saturation ABG Base Excess ABG Hemoglobin Oxyhemoglobin Sodium Potassium Chloride Carbon Dioxide BUN Creatinine Glucose POC Glucose 187 H 221 H 172 H Lactic Acid Uric Acid Calcium Phosphorus Magnesium Ferritin Total Bilirubin AST Lactate Dehydrogenase Total Creatine Kinase C-Reactive Protein Total Protein Albumin TSH Free T3 Index Urine WBC (Auto) Urine Creatinine Salicylates Acetaminophen Valproic Acid SARS-CoV-2 (PCR) 07/15/22 07/15/22 07/15/22 04:00 04:00 05:49 WBC 11.4 H RBC 3.13 L Hgb Hct MCV 98 H MCH 33 H RDW Plt Count 98 L [place] % (Auto) Seg Neutrophils % Seg Neutrophils # PT APTT D-Dimer ABG pH ABG pO2 ABG HCO3 ABG O2 Saturation ABG Base Excess ABG Hemoglobin Oxyhemoglobin Sodium Potassium Chloride Carbon Dioxide 34 H BUN Creatinine 0.4 L Glucose 126 H POC Glucose 143 H Lactic Acid Uric Acid Calcium Phosphorus Magnesium Ferritin Total Bilirubin AST Lactate Dehydrogenase Total Creatine Kinase C-Reactive Protein Total Protein Albumin TSH Free T3 Index Urine WBC (Auto) Urine Creatinine Salicylates Acetaminophen Valproic Acid SARS-CoV-2 (PCR) 07/15/22 07/15/22 07/16/22 11:19 16:16 00:19 WBC RBC Hgb Hct MCV MCH RDW Plt Count [place] % (Auto) Seg Neutrophils % Seg Neutrophils # PT APTT D-Dimer ABG pH ABG pO2 ABG HCO3 ABG O2 Saturation ABG Base Excess ABG Hemoglobin Oxyhemoglobin Sodium Potassium Chloride Carbon Dioxide BUN Creatinine Glucose POC Glucose 158 H 227 H 153 H Lactic Acid Uric Acid Calcium Phosphorus Magnesium Ferritin Total Bilirubin AST Lactate Dehydrogenase Total Creatine Kinase C-Reactive Protein Total Protein Albumin TSH Free T3 Index Urine WBC (Auto) Urine Creatinine Salicylates Acetaminophen Valproic Acid SARS-CoV-2 (PCR) 07/16/22 07/16/22 07/16/22 04:20 04:20 11:28 WBC RBC 3.16 L Hgb Hct MCV 99 H MCH 33 H RDW Plt Count 101 L [place] % (Auto) Seg Neutrophils % Seg Neutrophils # PT APTT D-Dimer ABG pH ABG pO2 ABG HCO3 ABG O2 Saturation ABG Base Excess ABG Hemoglobin Oxyhemoglobin Sodium Potassium Chloride Carbon Dioxide 36 H BUN 18 H Creatinine 0.4 L Glucose 139 H POC Glucose 158 H Lactic Acid Uric Acid Calcium Phosphorus Magnesium Ferritin Total Bilirubin AST Lactate Dehydrogenase Total Creatine Kinase C-Reactive Protein Total Protein Albumin TSH Free T3 Index Urine WBC (Auto) Urine Creatinine Salicylates Acetaminophen Valproic Acid SARS-CoV-2 (PCR) 07/16/22 07/17/22 07/17/22 16:30 00:07 05:46 WBC RBC Hgb Hct MCV MCH RDW Plt Count [place] % (Auto) Seg Neutrophils % Seg Neutrophils # PT APTT D-Dimer ABG pH ABG pO2 ABG HCO3 ABG O2 Saturation ABG Base Excess ABG Hemoglobin Oxyhemoglobin Sodium Potassium Chloride Carbon Dioxide BUN Creatinine Glucose POC Glucose 201 H 139 H 123 H Lactic Acid Uric Acid Calcium Phosphorus Magnesium Ferritin Total Bilirubin AST Lactate Dehydrogenase Total Creatine Kinase C-Reactive Protein Total Protein Albumin TSH Free T3 Index Urine WBC (Auto) Urine Creatinine Salicylates Acetaminophen Valproic Acid SARS-CoV-2 (PCR) 07/17/22 07/17/22 07/17/22 13:30 17:51 23:49 WBC RBC Hgb Hct MCV MCH RDW Plt Count [place] % (Auto) Seg Neutrophils % Seg Neutrophils # PT APTT D-Dimer ABG pH ABG pO2 ABG HCO3 ABG O2 Saturation ABG Base Excess ABG Hemoglobin Oxyhemoglobin Sodium Potassium Chloride Carbon Dioxide BUN Creatinine Glucose POC Glucose 185 H 219 H 133 H Lactic Acid Uric Acid Calcium Phosphorus Magnesium Ferritin Total Bilirubin AST Lactate Dehydrogenase Total Creatine Kinase C-Reactive Protein Total Protein Albumin TSH Free T3 Index Urine WBC (Auto) Urine Creatinine Salicylates Acetaminophen Valproic Acid SARS-CoV-2 (PCR) 07/18/22 07/18/22 07/18/22 04:00 04:00 04:00 WBC 12.2 H RBC 3.34 L Hgb Hct MCV 100 H MCH 33 H RDW Plt Count 113 L [place] % (Auto) Seg Neutrophils % 77.3 H Seg Neutrophils # 9.4 H PT APTT D-Dimer ABG pH 7.508 H ABG pO2 115.9 H ABG HCO3 33.4 H ABG O2 Saturation ABG Base Excess 9.4 H ABG Hemoglobin 11.7 L Oxyhemoglobin Sodium Potassium Chloride Carbon Dioxide 35 H BUN Creatinine 0.4 L Glucose 130 H POC Glucose Lactic Acid Uric Acid Calcium Phosphorus Magnesium Ferritin Total Bilirubin AST Lactate Dehydrogenase Total Creatine Kinase C-Reactive Protein Total Protein Albumin TSH Free T3 Index Urine WBC (Auto) Urine Creatinine Salicylates Acetaminophen Valproic Acid SARS-CoV-2 (PCR) 07/18/22 07/18/22 07/18/22 04:42 12:31 12:31 WBC RBC Hgb Hct MCV MCH RDW Plt Count [place] % (Auto) Seg Neutrophils % Seg Neutrophils # PT APTT D-Dimer ABG pH ABG pO2 ABG HCO3 ABG O2 Saturation ABG Base Excess ABG Hemoglobin Oxyhemoglobin Sodium Potassium Chloride Carbon Dioxide BUN Creatinine Glucose POC Glucose 134 H Lactic Acid Uric Acid Calcium Phosphorus Magnesium Ferritin Total Bilirubin AST Lactate Dehydrogenase Total Creatine Kinase C-Reactive Protein Total Protein Albumin TSH 9.750 H Free T3 Index 1.7 L Urine WBC (Auto) Urine Creatinine Salicylates Acetaminophen Valproic Acid SARS-CoV-2 (PCR) 07/18/22 07/18/22 07/19/22 12:33 17:39 00:43 WBC RBC Hgb Hct MCV MCH RDW Plt Count [place] % (Auto) Seg Neutrophils % Seg Neutrophils # PT APTT D-Dimer ABG pH ABG pO2 ABG HCO3 ABG O2 Saturation ABG Base Excess ABG Hemoglobin Oxyhemoglobin Sodium Potassium Chloride Carbon Dioxide BUN Creatinine Glucose POC Glucose 172 H 164 H 132 H Lactic Acid Uric Acid Calcium Phosphorus Magnesium Ferritin Total Bilirubin AST Lactate Dehydrogenase Total Creatine Kinase C-Reactive Protein Total Protein Albumin TSH Free T3 Index Urine WBC (Auto) Urine Creatinine Salicylates Acetaminophen Valproic Acid SARS-CoV-2 (PCR) 07/19/22 07/19/22 07/19/22 05:08 12:30 17:42 WBC RBC Hgb Hct MCV MCH RDW Plt Count [place] % (Auto) Seg Neutrophils % Seg Neutrophils # PT APTT D-Dimer ABG pH ABG pO2 ABG HCO3 ABG O2 Saturation ABG Base Excess ABG Hemoglobin Oxyhemoglobin Sodium Potassium Chloride Carbon Dioxide BUN Creatinine Glucose POC Glucose 143 H 159 H 139 H Lactic Acid Uric Acid Calcium Phosphorus Magnesium Ferritin Total Bilirubin AST Lactate Dehydrogenase Total Creatine Kinase C-Reactive Protein Total Protein Albumin TSH Free T3 Index Urine WBC (Auto) Urine Creatinine Salicylates Acetaminophen Valproic Acid SARS-CoV-2 (PCR) 07/19/22 07/20/22 07/20/22 23:26 05:30 06:03 WBC RBC Hgb Hct MCV MCH RDW Plt Count [place] % (Auto) Seg Neutrophils % Seg Neutrophils # PT APTT D-Dimer ABG pH 7.503 H ABG pO2 99.1 H ABG HCO3 32.8 H ABG O2 Saturation ABG Base Excess 8.8 H ABG Hemoglobin 9.7 L Oxyhemoglobin Sodium Potassium Chloride Carbon Dioxide BUN Creatinine Glucose POC Glucose 144 H 146 H Lactic Acid Uric Acid Calcium Phosphorus Magnesium Ferritin Total Bilirubin AST Lactate Dehydrogenase Total Creatine Kinase C-Reactive Protein Total Protein Albumin TSH Free T3 Index Urine WBC (Auto) Urine Creatinine Salicylates Acetaminophen Valproic Acid SARS-CoV-2 (PCR) 07/20/22 07/20/22 07/20/22 12:15 17:24 23:44 WBC RBC Hgb Hct MCV MCH RDW Plt Count [place] % (Auto) Seg Neutrophils % Seg Neutrophils # PT APTT D-Dimer ABG pH ABG pO2 ABG HCO3 ABG O2 Saturation ABG Base Excess ABG Hemoglobin Oxyhemoglobin Sodium Potassium Chloride Carbon Dioxide BUN Creatinine Glucose POC Glucose 138 H 135 H 131 H Lactic Acid Uric Acid Calcium Phosphorus Magnesium Ferritin Total Bilirubin AST Lactate Dehydrogenase Total Creatine Kinase C-Reactive Protein Total Protein Albumin TSH Free T3 Index Urine WBC (Auto) Urine Creatinine Salicylates Acetaminophen Valproic Acid SARS-CoV-2 (PCR) 07/21/22 07/21/22 07/21/22 04:00 04:00 05:13 WBC RBC 2.92 L Hgb 9.6 L Hct 29.0 L MCV 99 H MCH 33 H RDW 15.6 H Plt Count 136 L [place] % (Auto) Seg Neutrophils % Seg Neutrophils # PT APTT D-Dimer ABG pH ABG pO2 ABG HCO3 ABG O2 Saturation ABG Base Excess ABG Hemoglobin Oxyhemoglobin Sodium Potassium Chloride Carbon Dioxide 32 H BUN Creatinine 0.3 L Glucose 133 H POC Glucose 142 H Lactic Acid Uric Acid Calcium 8.3 L Phosphorus Magnesium Ferritin Total Bilirubin AST Lactate Dehydrogenase Total Creatine Kinase C-Reactive Protein Total Protein Albumin TSH Free T3 Index Urine WBC (Auto) Urine Creatinine Salicylates Acetaminophen Valproic Acid SARS-CoV-2 (PCR) 07/21/22 07/21/22 07/21/22 06:16 11:48 16:08 WBC RBC Hgb Hct MCV MCH RDW Plt Count [place] % (Auto) Seg Neutrophils % Seg Neutrophils # PT APTT D-Dimer ABG pH ABG pO2 ABG HCO3 ABG O2 Saturation ABG Base Excess ABG Hemoglobin Oxyhemoglobin Sodium Potassium Chloride Carbon Dioxide BUN Creatinine Glucose POC Glucose 149 H 124 H 139 H Lactic Acid Uric Acid Calcium Phosphorus Magnesium Ferritin Total Bilirubin AST Lactate Dehydrogenase Total Creatine Kinase C-Reactive Protein Total Protein Albumin TSH Free T3 Index Urine WBC (Auto) Urine Creatinine Salicylates Acetaminophen Valproic Acid SARS-CoV-2 (PCR) 07/22/22 07/22/22 07/22/22 00:05 04:00 04:13 WBC RBC 2.90 L Hgb 9.5 L Hct 28.9 L MCV 100 H MCH 33 H RDW 15.5 H Plt Count [place] % (Auto) 10.0 H Seg Neutrophils % Seg Neutrophils # PT APTT D-Dimer ABG pH ABG pO2 ABG HCO3 ABG O2 Saturation ABG Base Excess ABG Hemoglobin Oxyhemoglobin Sodium Potassium Chloride Carbon Dioxide 31 H BUN Creatinine 0.4 L Glucose 105 H POC Glucose 143 H Lactic Acid Uric Acid Calcium Phosphorus Magnesium Ferritin Total Bilirubin AST Lactate Dehydrogenase Total Creatine Kinase C-Reactive Protein Total Protein Albumin TSH Free T3 Index Urine WBC (Auto) Urine Creatinine Salicylates Acetaminophen Valproic Acid SARS-CoV-2 (PCR) 07/22/22 07/23/22 07/23/22 11:03 04:25 04:25 WBC RBC 2.71 L Hgb 9.1 L Hct 27.0 L MCV 100 H MCH 33 H RDW 15.4 H Plt Count [place] % (Auto) Seg Neutrophils % Seg Neutrophils # PT APTT D-Dimer ABG pH ABG pO2 ABG HCO3 ABG O2 Saturation ABG Base Excess ABG Hemoglobin Oxyhemoglobin Sodium Potassium Chloride Carbon Dioxide 33 H BUN Creatinine 0.4 L Glucose POC Glucose 111 H Lactic Acid Uric Acid Calcium 8.3 L Phosphorus Magnesium Ferritin Total Bilirubin AST Lactate Dehydrogenase Total Creatine Kinase C-Reactive Protein Total Protein Albumin TSH Free T3 Index Urine WBC (Auto) Urine Creatinine Salicylates Acetaminophen Valproic Acid SARS-CoV-2 (PCR) 07/23/22 07/23/22 07/23/22 06:14 11:09 23:34 WBC RBC Hgb Hct MCV MCH RDW Plt Count [place] % (Auto) Seg Neutrophils % Seg Neutrophils # PT APTT D-Dimer ABG pH ABG pO2 ABG HCO3 ABG O2 Saturation ABG Base Excess ABG Hemoglobin Oxyhemoglobin Sodium Potassium Chloride Carbon Dioxide BUN Creatinine Glucose POC Glucose 106 H 117 H 115 H Lactic Acid Uric Acid Calcium Phosphorus Magnesium Ferritin Total Bilirubin AST Lactate Dehydrogenase Total Creatine Kinase C-Reactive Protein Total Protein Albumin TSH Free T3 Index Urine WBC (Auto) Urine Creatinine Salicylates Acetaminophen Valproic Acid SARS-CoV-2 (PCR) 07/24/22 07/24/22 07/24/22 05:24 11:25 16:52 WBC RBC Hgb Hct MCV MCH RDW Plt Count [place] % (Auto) Seg Neutrophils % Seg Neutrophils # PT APTT D-Dimer ABG pH ABG pO2 ABG HCO3 ABG O2 Saturation ABG Base Excess ABG Hemoglobin Oxyhemoglobin Sodium Potassium Chloride Carbon Dioxide BUN Creatinine Glucose POC Glucose 122 H 139 H 126 H Lactic Acid Uric Acid Calcium Phosphorus Magnesium Ferritin Total Bilirubin AST Lactate Dehydrogenase Total Creatine Kinase C-Reactive Protein Total Protein Albumin TSH Free T3 Index Urine WBC (Auto) Urine Creatinine Salicylates Acetaminophen Valproic Acid SARS-CoV-2 (PCR) 07/25/22 07/25/22 07/25/22 00:10 04:22 04:22 WBC RBC 2.86 L Hgb 9.4 L Hct 28.5 L MCV 100 H MCH 33 H RDW 15.4 H Plt Count [place] % (Auto) Seg Neutrophils % Seg Neutrophils # PT APTT D-Dimer ABG pH ABG pO2 ABG HCO3 ABG O2 Saturation ABG Base Excess ABG Hemoglobin Oxyhemoglobin Sodium Potassium Chloride Carbon Dioxide 31 H BUN Creatinine 0.3 L Glucose 135 H POC Glucose 131 H Lactic Acid Uric Acid Calcium 8.0 L Phosphorus 2.20 L Magnesium Ferritin Total Bilirubin AST Lactate Dehydrogenase Total Creatine Kinase C-Reactive Protein Total Protein Albumin TSH Free T3 Index Urine WBC (Auto) Urine Creatinine Salicylates Acetaminophen Valproic Acid SARS-CoV-2 (PCR)
--- NOTE | 2022-07-25 13:12 | Progress Note ---
<GEORGE DAVIS - Last Filed: 07/25/22 19:25> Assessment and Plan Assessment and plan: This is a 76-year-old female with CVA, pulmonary embolism, hypothyroidism and JUJU admitted with electrolyte imbalances, hypoxic respiratory failure and COVID- 19 pneumonia Hospital Course to Date: 07/08: Patient noted to be COVID-positive, started on remdesivir, Decadron, ceftriaxone azithromycin and infectious disease was consulted yesterday. This morning patient is on any sedation, PICC line to be placed. RT to attempt PSV. Started on free water flushes and tube feedings. Continues on D5 half-normal saline. 07/09: Patient remains encephalopathic, not on any sedation. Hypernatremia is improving, on FWF Q4hrs and D5w gtt per Nephro. If hypernatremia continue to improve and patient's mentation is unchanged, will get a repeat CT to r/o intracranial abnormalities. Patient remains afebrile, leukocytosis improved, and VSS. Continue current IV abx per ID. Patient failed PSV trial again today, trevon nue PSV trial as tolerated 07/10: Remains stable on the vent, tolerating PSV trial this am. sodium continue to improve but no change in mental status. D/w CCM will get MRI brain to r/o any intracranial abnormalities, EEG also ordered to r/o seizures. Continue FWF and D5w gtt per Nephro. Continue IV steroids and current IV abx per ID. 07/11: Hypernatremia resolved, mentation is unchanged, remains on low vent setting. EEG noted, and MRI brain pending. Will consult Neurology for further recommendations. Continue daily PSV trial as tolerated. 07/12: Appears more awake this morning but still not following any commands. MRI brain with no acute findings and sodium normalized. Awaiting Neuro consult. Continue daily PSV trial as tolerated. Patient's daughter was updated via phone, all questions and concerns were addressed at this time. Medical records requested from [facility] and [facility]. 07/13: DELMI overnight. Mentation is unchanged, remains stable on the vent. Neurology consult pending. Continue vent adjustment per CCM and daily PSV trial as tolerated. 07/14: Mentation is unchanged, remains afebrile and stable on the vent, VSS. Complete antibiotics course, still on IV steroids X3 more days. ID recommendations noted, remove corbin. Continue daily PSV trial as tolerated. 07/15: DELMI overnight, mentation unchanged, VSS. Patient failed PSV trial this am due to apnea. Continue daily PSV trial as tolerated. Possible trach and Peg per [facility]. 07/16: No acute events overnight, attempted PSV again today. [facility] to have family meeting on 07/17 to discuss trach/PEG 07/17: [facility] will have family meeting tomorrow. Failed PSV again. No acute events overnight. Thrombocytopenia continues to improve 07/18: [facility] held a family meeting today and surgery will be consulted for trach/PEG placement. Family stated that patient had not had her levothyroxine for several months due to decreased p.o. intake, will send thyroid panel. No acute events reported overnight. Hypotension today and 500 mL normal saline bolus given. Possible trach/peg within 2 days 07/19: No acute events reported overnight. Free T4 normal. Failed PSV 07/20: No acute events reported overnight. Patient taken off isolation per ID. Trach/PEG scheduled for Friday. failed PSV 07/21: No acute events reported overnight. Trach/peg for friday. PSV ongoing 07/22: Remains stable, DELMI overnight. Plan for possible Trac/PEG today by general surgery. Continue dailu PSV trial as tolerated. 07/23: s/p trach and PEG, remains stable on low vent setting, recent CXR is unremarkable. VSS. Resume TF once okayed by General Surgery. Continue daily PSV trial as tolerated. Possible LTAC placement, case management to arrange. 07/24: Remains stable on the vent, tolerating TF via Peg. Continue supportive measures and daily PSV trial. Awaiting placement. 07/25: DELMI overnight. Continue supportive measures and daily PSV trial. PT/OT consulted. Awaiting placement, case management to arrange. Assessment and Plan Neuro: Acute metabolic encephalopathy, h/o CVA with hemiplegia, dysphagia, aphasia, dementia -Reorientation as needed -Maintain sleep-wake cycle -Resume home Lipitor -As needed analgesia -CT head shows no acute intracranial hemorrhage, multiple chronic appearing infarcts including left MCA distribution, left cerebral hemisphere and within the right basal ganglia -Depakene -EEG noted -MRI noted -Neurology consult pending Cardiac: h/o HLD -Resume home Lipitor -Blood pressure monitoring per protocol Respiratory: Acute hypoxic respiratory failure, h/o JUJU, pulmonary embolism -CCM consulted, appreciate recommendations -Intubated on 07/07 -07/22 s/p Trach/PEG -A.m. vent settings:PRVC-28%,6,10,400 -See RT notes for titration -A.m. ABG and CXR noted -VAP bundle -SPO2 monitoring GI:TF -07/22 s/p PEGtube placement -PPI -NTR consulted for tube feedings -BR: Senokot-S : Hypernatremia(resolved), hypokalemia, rhabdomyolysis -Nephrology consulted, appreciate recommendations -Monitor intake and output -Free water flush -Renally dose medications -Avoid nephrotoxic medications -Replete potassium -Trend BMP ID: COVID Pneumonia, lactic acidosis -Infectious disease consulted, appreciate recommendation -completed IV antibiotics course -Dexamethasone for 10 days, end 07/17 -Contact/droplet precautions -f/u blood culture -Trend COVID-19 inflammatory markers -Monitor WBC and temperature curve -Prophylactic anticoagulation based on D-dimer per hospital protocol Heme: Thrombocytopenia-improved -Patient presented with low plt -Plt continue to trend down, but less than 50% of admit count -No s/s of any active bleeding, H&H stable -Continue to trend CBC -On Heparin SubQ -Transfuse for plt less than 20 and hgb less than 7 Endo: h/o hypothyroidism -Avoid hypoglycemia -SSI -Accu-Cheks q. 6 -Long-acting insulin, titrate as needed -Resume home Synthroid GI/DVT Prophylaxis -PPI- pepcid -Heparin SubQ -SCDs to bilateral lower extremities while in bed The high probability of a clinically significant, sudden or life threatening deterioration of the [multi] system(s) required my full and direct attention, intervention and personal management. The aggregate critical care time was [60] minutes. This time is in addition to time spent performing reported procedures but includes the following: [x] Data Review and interpretation [x] Patient assessment and monitoring of vital signs [x] Documentation [x] Medication orders and management Disposition Plan: ICU Total Time Spent with Patient (Minutes): 60 History Interval history: Patient seen and examined at the bedside. Remains stable on the vent. VSS. DELMI overnight Hospitalist Physical - Physical exam Narrative exam: General appearance: Present: other (Trached, stable on the vent) - EENT Eyes: Present: PERRL - Respiratory Respiratory effort: normal Respiratory: bilateral: rhonchi - Cardiovascular Rhythm: regular Heart Sounds: Present: S1 & S2 - Extremities Extremities: no ischemia, pulses intact, pulses symmetrical Extremity abnormal: edema - Peripheral Assessment Generalized Edema Type: Non-pitting Edema Degree: 2+ Capillary Refill: < 3 seconds Skin Temperature: Warm Peripheral Pulses: within normal limits - Abdominal General gastrointestinal: soft, non-distended, normal bowel sounds - Integumentary Integumentary: Present: warm, dry - Psychiatric Psychiatric: other (Trached, unresponsive on the vent, not on any sedations) - Neurologic Neurologic: other (Trached, unresponsive, not on any sedations. Open eyes spontaneously, does not track, not following commands, with nonpurposeful movements) - Allied Health Allied health notes reviewed: nursing, case management - Constitutional Vitals: Temp Pulse Resp BP Pulse Ox 98.5 F 97 H 13 136/63 100 07/25/22 12:00 07/25/22 12:01 07/25/22 12:01 07/25/22 12:01 07/25/22 12:01 General appearance: Present: no acute distress HEART Score - HEART Score Troponin: Troponin T 0.010 ng/mL (0.00-0.029) 07/07/22 04:17 Results - Labs CBC & Chem 7: 07/25/22 04:22 07/25/22 04:22 Labs: Laboratory Last Values WBC 7.1 K/mm3 (4.5-11.0) 07/25/22 04:22 RBC 2.86 M/mm3 (3.65-5.03) L 07/25/22 04:22 Hgb 9.4 gm/dl (10.1-14.3) L 07/25/22 04:22 Hct 28.5 % (30.3-42.9) L 07/25/22 04:22 MCV 100 fl (79-97) H 07/25/22 04:22 MCH 33 pg (28-32) H 07/25/22 04:22 MCHC 33 % (30-34) 07/25/22 04:22 RDW 15.4 % (13.2-15.2) H 07/25/22 04:22 Plt Count 183 K/mm3 (140-440) 07/25/22 04:22 Lymph % (Auto) 33.3 % (13.4-35.0) 07/22/22 04:13 [place] % (Auto) 10.0 % (0.0-7.3) H 07/22/22 04:13 Eos % (Auto) 0.5 % (0.0-4.3) 07/22/22 04:13 Baso % (Auto) 0.1 % (0.0-1.8) 07/22/22 04:13 Lymph # (Auto) 2.1 K/mm3 (1.2-5.4) 07/22/22 04:13 [place] # (Auto) 0.6 K/mm3 (0.0-0.8) 07/22/22 04:13 Eos # (Auto) 0.0 K/mm3 (0.0-0.4) 07/22/22 04:13 Baso # (Auto) 0.0 K/mm3 (0.0-0.1) 07/22/22 04:13 Seg Neutrophils % 56.1 % (40.0-70.0) 07/22/22 04:13 Seg Neutrophils # 3.6 K/mm3 (1.8-7.7) 07/22/22 04:13 PT 13.0 Sec. (12.2-14.9) 07/22/22 04:13 INR 0.87 (0.87-1.13) 07/22/22 04:13 APTT 23.0 Sec. (24.2-36.6) L 07/07/22 03:38 D-Dimer 925.80 ng/mlDDU (0-234) H 07/12/22 04:00 ABG pH 7.503 pH Units (7.350-7.450) H 07/20/22 05:30 ABG pCO2 42.7 mm Hg 07/20/22 05:30 ABG pO2 99.1 mm Hg (80.0-90.0) H 07/20/22 05:30 ABG HCO3 32.8 mmol/L (20.0-26.0) H 07/20/22 05:30 ABG O2 Saturation 97.8 % (95.0-99.0) 07/20/22 05:30 ABG O2 Content 13.3 (0.0-44) 07/20/22 05:30 ABG Base Excess 8.8 mmol/L (-2.0-3.0) H 07/20/22 05:30 ABG Hemoglobin 9.7 gm/dl (12.0-16.0) L 07/20/22 05:30 ABG Carboxyhemoglobin 1.3 % (0.0-5.0) 07/20/22 05:30 ABG Methemoglobin 0.6 % (0.0-1.5) 07/20/22 05:30 Oxyhemoglobin 95.9 % (95.0-99.0) 07/20/22 05:30 FiO2 28 % 07/20/22 05:30 Sodium 142 mmol/L (137-145) 07/25/22 04:22 Potassium 3.8 mmol/L (3.6-5.0) 07/25/22 04:22 Chloride 102.2 mmol/L (98-107) 07/25/22 04:22 Carbon Dioxide 31 mmol/L (22-30) H 07/25/22 04:22 Anion Gap 13 mmol/L 07/25/22 04:22 BUN 9 mg/dL (7-17) 07/25/22 04:22 Creatinine 0.3 mg/dL (0.6-1.2) L 07/25/22 04:22 Estimated GFR > 60 ml/min 07/25/22 04:22 BUN/Creatinine Ratio 30 % 07/25/22 04:22 Glucose 135 mg/dL (65-100) H 07/25/22 04:22 POC Glucose 140 mg/dL (70-105) H 07/25/22 11:49 Lactic Acid 2.10 mmol/L (0.7-2.0) H* 07/10/22 08:24 Uric Acid 13.5 mg/dL (3.5-7.6) H 07/07/22 04:17 Calcium 8.0 mg/dL (8.4-10.2) L 07/25/22 04:22 Phosphorus 2.20 mg/dL (2.5-4.5) L 07/25/22 04:22 Magnesium 1.90 mg/dL (1.7-2.3) 07/25/22 04:22 Ferritin 519.5 ng/mL (10.0-200.0) H 07/12/22 04:00 Total Bilirubin 0.30 mg/dL (0.1-1.2) 07/10/22 04:21 AST 89 units/L (5-40) H 07/10/22 04:21 ALT 53 units/L (7-56) 07/10/22 04:21 Alkaline Phosphatase 83 units/L (35-129) 07/10/22 04:21 Ammonia 32.0 umol/L (25-60) 07/07/22 04:17 Lactate Dehydrogenase 444 units/L (91-180) H 07/12/22 04:00 Total Creatine Kinase 1745 units/L (30-135) H 07/11/22 05:40 Troponin T 0.010 ng/mL (0.00-0.029) 07/07/22 04:17 C-Reactive Protein 0.30 mg/dL (0.00-1.30) 07/12/22 04:00 Total Protein 4.9 g/dL (6.3-8.2) L 07/10/22 04:21 Albumin 2.5 g/dL (3.9-5) L 07/10/22 04:21 Albumin/Globulin Ratio 1.0 % 07/10/22 04:21 Procalcitonin 0.19 ng/mL (<0.15) 07/08/22 14:54 TSH 9.750 mlU/mL (0.270-4.200) H 07/18/22 12:31 Free T4 0.78 ng/dL (0.76-1.46) 07/18/22 12:31 Thyroxine (T4) 6.2 ug/dL (4.0-12.0) 07/18/22 12:31 Free T3 Index 1.7 pg/mL (2.3-4.2) L 07/18/22 12:31 Total Cortisol 47.9 mcg/dL () 07/07/22 07:43 Urine Color Yellow (Yellow) 07/07/22 03:17 Urine Turbidity Slightly cloudy (Clear) 07/07/22 03:17 Specific [place] (Man) 1.015 (1.003-1.030) 07/07/22 03:17 Ur Protein (Man) 1+ mg/dL (Negative) 07/07/22 03:17 Ur Ketones (Man) Negative (Negative) 07/07/22 03:17 Ur Nitrite (Man) Negative (Negative) 07/07/22 03:17 Urine Bilirubin (Man) Negative (Negative) 07/07/22 03:17 Leukocyte Esterase (Man) Negative (Negative) 07/07/22 03:17 Urine WBC (Auto) 7.0 /HPF (0.0-6.0) H 07/07/22 03:17 Urine RBC (Auto) 1.0 /HPF (0.0-6.0) 07/07/22 03:17 U Epithel Cells (Auto) 4.0 /HPF (0-13.0) 07/07/22 03:17 Urine Bacteria (Auto) 3+ /HPF (Negative) 07/07/22 03:17 Urine RBC (Manual) 3+ (Negative) 07/07/22 03:17 Urine Mucus 3+ /HPF 07/07/22 03:17 Urine Osmolality 744 Mosm/kg 07/07/22 16:45 Urine Creatinine 92.9 mg/dL (0.1-20.0) H 07/07/22 16:45 Urine Sodium 109 mmol/L 07/07/22 16:45 Salicylates < 0.3 mg/dL (2.8-20.0) L 07/07/22 03:38 Urine Opiates Screen Presumptive negative 07/07/22 03:17 Urine Methadone Screen Presumptive negative 07/07/22 03:17 Acetaminophen 5.0 ug/mL (10.0-30.0) L 07/07/22 03:38 Ur Barbiturates Screen Presumptive negative 07/07/22 03:17 Valproic Acid 7.0 ug/mL (50-100) L 07/07/22 03:38 Ur Phencyclidine Scrn Presumptive negative 07/07/22 03:17 Ur Amphetamines Screen Presumptive negative 07/07/22 03:17 U Benzodiazepines Scrn Presumptive negative 07/07/22 03:17 Urine Cocaine Screen Presumptive negative 07/07/22 03:17 U Marijuana (THC) Screen Presumptive negative 07/07/22 03:17 Drugs of Abuse Note Disclamer 07/07/22 03:17 Plasma/Serum Alcohol < 0.01 % (0-0.07) 07/07/22 03:38 SARS-CoV-2 (PCR) Positive (Negative) A 07/07/22 15:00 [place]/IV: Voiding Method External Female Catheter Active Medications - Current Medications Current Medications: Generic Name Dose Route Start Last Admin Trade Name Freq PRN Reason Stop Dose Admin Acetaminophen 650 mg 07/13/22 12:00 07/20/22 17:53 Acetaminophen 325 Mg/10.15 Ml Oral Liqd Unit Dose FEEDTUBE 650 mg Q6H PRN Administration Pain MILD(1-3)/Fever >100.5/LEE Atorvastatin Calcium 80 mg 07/10/22 22:00 07/24/22 21:57 Atorvastatin 40 Mg Tab FEEDTUBE 80 mg QHS ERROL Administration Cholecalciferol 1,000 unit 07/10/22 10:00 07/25/22 09:28 Cholecalciferol (Vit D3) 1000 Unit (25 Mcg) Tab FEEDTUBE 1,000 unit QDAY ERROL Administration Dextrose 50 ml 07/09/22 11:42 Dextrose 50% In Water (25gm) 50 Ml Syringe IV Q30MIN PRN Hypoglycemia Protocol Famotidine 20 mg 07/09/22 22:00 07/25/22 09:19 Famotidine 20 Mg Tab FEEDTUBE 20 mg BID ERROL Administration Heparin Sodium (Porcine) 5,000 unit 07/08/22 06:00 07/25/22 06:07 Heparin 5,000 Unit/1 Ml Vial SUB-Q 5,000 unit Q12H ERROL Administration Hydrophilic Ointment 1 applic 07/07/22 02:48 Lip Therapy Vaseline TP Q2HR PRN Dry Lips Insulin Human Lispro 0 unit 07/09/22 12:00 07/25/22 11:56 Insulin Lispro 100 Unit/Ml SUB-Q Not Given Q6HR [facility] Protocol Levothyroxine Sodium 75 mcg 07/11/22 06:00 07/25/22 06:08 Levothyroxine 75 Mcg Tab FEEDTUBE 75 mcg QAM@0600 ERROL Administration Multi-Ingred Cream/Lotion/Oil/Oint 1 applic 07/07/22 02:48 Mineral Oil/Petrolatum, White Ophth Oint 3.5 Gm OU Q4HR PRN Dry Eye(s) Senna/Docusate Sodium 1 tab 07/07/22 10:00 07/25/22 09:19 Sennosides/Docusate Sodium 8.6/50 Mg Tab FEEDTUBE 1 tab BID ERROL Administration Sodium Chloride 10 ml 07/07/22 13:00 07/25/22 09:20 Sodium Chloride 0.9% 10 Ml Flush Syringe IV 10 ml BID ERROL Administration Sodium Chloride 10 ml 07/07/22 12:09 Sodium Chloride 0.9% 10 Ml Flush Syringe IV PRN PRN LINE FLUSH Sodium Phosphate 250 mg 07/25/22 10:00 07/25/22 09:19 K-Phos Neutral 250 Mg Tab FEEDTUBE 07/25/22 22:01 250 mg QID ERROL Administration Valproic Acid 250 mg 07/10/22 22:00 07/25/22 09:18 Valproic Acid 250 Mg/5 Ml Oral Liqd FEEDTUBE 250 mg Q12H ERROL Administration Nutrition/Malnutrition Assess - Dietary Evaluation Nutrition/Malnutrition Findings: Nutrition Notes Start: 07/07/22 13:24 Freq: Status: Active Protocol: Document 07/24/22 09:24 DAREN (Rec: 07/24/22 09:53 DAREN [id number]) Nutrition Notes Initial or Follow up Reassessment Current Diagnosis Respiratory Failure,Stroke, Hyperlipidemia Other Pertinent Diagnosis COVID-19, Metabolic Encephalopathy, Pulmonary Embolism, Dementia. Current Diet TF-Vital AF 1.2 [place] @ 50 ml/hr (from D 07/12). Labs/Tests 07/24: CO2 33, Crea 0.4, Ca 8. 3. Pertinent Medications 07/24: Vit D3, D5w @ 50ml/hr, Levothyroxine, others nutritionally unremarkable. Height 5 ft 6 in Weight 96.2 kg [place] Body Weight (kg) 59.09 BMI 34.2 Weight change and time frame 0.946 Kg body weight gain in 1 week reported. Weight Status Obese Subjective/Other Information RD consult for routine F/U on TF tolerance/continuation assessment. TF continues as prescribed, and well tolerated, according to RN notes. Pt continues on Mechanical Ventilation, O2 saturation @ 98%, according to Physical Assessment History notes. Procedure on 07/22: Percutaneous Tracheostomy and EGD w/PEG-tube placement, well tolerated. according to Operative Report notes. TF resumed on 07/23, after PEG -tube placement, according to Progress notes. Possible discharge to LTAC facility, according to Progress notes. Percent of energy/protein needs met: Prescribed TF-Vital AF 1.2 [place] @ 50 ml/hr provides for energy/protein needs (1,440 Kcal/90 g) during LOS, 101% Kcal, 91% AA. Burn Absent Trauma Absent GI Symptoms Other Difficulty In Swallowing,Chewing Food Allergy No Skin Integrity/Comment Assessment WNL. Current % PO Other Minimum of two criteria Yes Energy Intake (non-severe) <75% Estimated Energy Requirement >7 days Interpretation of Weight Loss (non- 5% in 1 month severe) Fluid Accumulation N/A Protein-Calorie Malnutrition Non-Severe #2 Nutrition Diagnosis Malnutrition Comments: TF continues as prescribed, and well tolerated, according to RN notes. Diagnosis Progress(for reassessment Improved documentation) #1 Nutrition Diagnosis Inadequate oral intake Comments: Procedure on 07/22: Percutaneous Tracheostomy and EGD w/PEG-tube placement, well tolerated. according to Operative Report notes. TF resumed on 07/23, after PEG -tube placement, according to Progress notes. Diagnosis Progress(for reassessment Continues documentation) Is patient on ventilator? Yes Is Patient Ambulatory and/or Out of Bed No REE-([facility]-confined to bed) 1774.548 Kcal/Kg value to use for calculation 15 Approximate Energy Requirements Using 1443 kcal/Kg Calculation Used for Recommendations Kcal/kg Additional Notes Protein: 1.3 g/Kg AdjBW; 101 g /day. Fluids: 1 ml/Kcal, or as per MD. Nutrition Intervention Nutrition Support: Continue TF-Vital AF 1.2 [place] @ 50 ml/hr. Flush: 75 ml water Q 4 hr, or as per MD. Kcal 1,440 Protein (gm) 90 Carbohydrates (gm) 133 Fat (gm) 65 Fluid (mL) 973 Fiber (gm) 6 % RDI: 101% Kcal; 91% AA. Goal #1 Provide at least 75% of energy /protein needs through Enteral Feeding during LOS. Follow-Up By: 08/07/22 Additional Comments Continue monitoring TF tolerance, ventilation status, and BM. <ANAHI ANGELES E - Last Filed: 07/26/22 07:37> Assessment and Plan Assessment and plan: I saw and evaluated the patient. I agree with the findings and the plan of care as documented in the Nurse Practitioner's~note, with the following corrections and additions. Hospitalist Physical - Constitutional Vitals: Temp Pulse Resp BP Pulse Ox 98.1 F 83 10 L 94/55 100 07/26/22 07:15 07/26/22 07:01 07/26/22 07:24 07/26/22 07:01 07/26/22 07:24 HEART Score - HEART Score Troponin: Troponin T 0.010 ng/mL (0.00-0.029) 07/07/22 04:17 Results - Labs CBC & Chem 7: 07/26/22 Unknown 07/26/22 06:00 Labs: Laboratory Last Values WBC 6.1 K/mm3 (4.5-11.0) 07/26/22 Unknown RBC 2.61 M/mm3 (3.65-5.03) L 07/26/22 Unknown Hgb 8.8 gm/dl (10.1-14.3) L 07/26/22 Unknown Hct 26.2 % (30.3-42.9) L 07/26/22 Unknown MCV 100 fl (79-97) H 07/26/22 Unknown MCH 34 pg (28-32) H 07/26/22 Unknown MCHC 34 % (30-34) 07/26/22 Unknown RDW 15.6 % (13.2-15.2) H 07/26/22 Unknown Plt Count 193 K/mm3 (140-440) 07/26/22 Unknown Lymph % (Auto) 33.3 % (13.4-35.0) 07/22/22 04:13 [place] % (Auto) 10.0 % (0.0-7.3) H 07/22/22 04:13 Eos % (Auto) 0.5 % (0.0-4.3) 07/22/22 04:13 Baso % (Auto) 0.1 % (0.0-1.8) 07/22/22 04:13 Lymph # (Auto) 2.1 K/mm3 (1.2-5.4) 07/22/22 04:13 [place] # (Auto) 0.6 K/mm3 (0.0-0.8) 07/22/22 04:13 Eos # (Auto) 0.0 K/mm3 (0.0-0.4) 07/22/22 04:13 Baso # (Auto) 0.0 K/mm3 (0.0-0.1) 07/22/22 04:13 Seg Neutrophils % 56.1 % (40.0-70.0) 07/22/22 04:13 Seg Neutrophils # 3.6 K/mm3 (1.8-7.7) 07/22/22 04:13 PT 13.0 Sec. (12.2-14.9) 07/22/22 04:13 INR 0.87 (0.87-1.13) 07/22/22 04:13 APTT 23.0 Sec. (24.2-36.6) L 07/07/22 03:38 D-Dimer 925.80 ng/mlDDU (0-234) H 07/12/22 04:00 ABG pH 7.503 pH Units (7.350-7.450) H 07/20/22 05:30 ABG pCO2 42.7 mm Hg 07/20/22 05:30 ABG pO2 99.1 mm Hg (80.0-90.0) H 07/20/22 05:30 ABG HCO3 32.8 mmol/L (20.0-26.0) H 07/20/22 05:30 ABG O2 Saturation 97.8 % (95.0-99.0) 07/20/22 05:30 ABG O2 Content 13.3 (0.0-44) 07/20/22 05:30 ABG Base Excess 8.8 mmol/L (-2.0-3.0) H 07/20/22 05:30 ABG Hemoglobin 9.7 gm/dl (12.0-16.0) L 07/20/22 05:30 ABG Carboxyhemoglobin 1.3 % (0.0-5.0) 07/20/22 05:30 ABG Methemoglobin 0.6 % (0.0-1.5) 07/20/22 05:30 Oxyhemoglobin 95.9 % (95.0-99.0) 07/20/22 05:30 FiO2 28 % 07/20/22 05:30 Sodium 142 mmol/L (137-145) 07/26/22 06:00 Potassium 3.5 mmol/L (3.6-5.0) L 07/26/22 06:00 Chloride 101.3 mmol/L (98-107) 07/26/22 06:00 Carbon Dioxide 32 mmol/L (22-30) H 07/26/22 06:00 Anion Gap 12 mmol/L 07/26/22 06:00 BUN 9 mg/dL (7-17) 07/26/22 06:00 Creatinine 0.3 mg/dL (0.6-1.2) L 07/26/22 06:00 Estimated GFR > 60 ml/min 07/26/22 06:00 BUN/Creatinine Ratio 30 % 07/26/22 06:00 Glucose 116 mg/dL (65-100) H 07/26/22 06:00 POC Glucose 123 mg/dL (70-105) H 07/25/22 17:27 Lactic Acid 2.10 mmol/L (0.7-2.0) H* 07/10/22 08:24 Uric Acid 13.5 mg/dL (3.5-7.6) H 07/07/22 04:17 Calcium 7.9 mg/dL (8.4-10.2) L 07/26/22 06:00 Phosphorus 2.20 mg/dL (2.5-4.5) L 07/25/22 04:22 Magnesium 1.90 mg/dL (1.7-2.3) 07/25/22 04:22 Ferritin 519.5 ng/mL (10.0-200.0) H 07/12/22 04:00 Total Bilirubin 0.30 mg/dL (0.1-1.2) 07/10/22 04:21 AST 89 units/L (5-40) H 07/10/22 04:21 ALT 53 units/L (7-56) 07/10/22 04:21 Alkaline Phosphatase 83 units/L (35-129) 07/10/22 04:21 Ammonia 32.0 umol/L (25-60) 07/07/22 04:17 Lactate Dehydrogenase 444 units/L (91-180) H 07/12/22 04:00 Total Creatine Kinase 1745 units/L (30-135) H 07/11/22 05:40 Troponin T 0.010 ng/mL (0.00-0.029) 07/07/22 04:17 C-Reactive Protein 0.30 mg/dL (0.00-1.30) 07/12/22 04:00 Total Protein 4.9 g/dL (6.3-8.2) L 07/10/22 04:21 Albumin 2.5 g/dL (3.9-5) L 07/10/22 04:21 Albumin/Globulin Ratio 1.0 % 07/10/22 04:21 Procalcitonin 0.19 ng/mL (<0.15) 07/08/22 14:54 TSH 9.750 mlU/mL (0.270-4.200) H 07/18/22 12:31 Free T4 0.78 ng/dL (0.76-1.46) 07/18/22 12:31 Thyroxine (T4) 6.2 ug/dL (4.0-12.0) 07/18/22 12:31 Free T3 Index 1.7 pg/mL (2.3-4.2) L 07/18/22 12:31 Total Cortisol 47.9 mcg/dL () 07/07/22 07:43 Urine Color Yellow (Yellow) 07/07/22 03:17 Urine Turbidity Slightly cloudy (Clear) 07/07/22 03:17 Specific [place] (Man) 1.015 (1.003-1.030) 07/07/22 03:17 Ur Protein (Man) 1+ mg/dL (Negative) 07/07/22 03:17 Ur Ketones (Man) Negative (Negative) 07/07/22 03:17 Ur Nitrite (Man) Negative (Negative) 07/07/22 03:17 Urine Bilirubin (Man) Negative (Negative) 07/07/22 03:17 Leukocyte Esterase (Man) Negative (Negative) 07/07/22 03:17 Urine WBC (Auto) 7.0 /HPF (0.0-6.0) H 07/07/22 03:17 Urine RBC (Auto) 1.0 /HPF (0.0-6.0) 07/07/22 03:17 U Epithel Cells (Auto) 4.0 /HPF (0-13.0) 07/07/22 03:17 Urine Bacteria (Auto) 3+ /HPF (Negative) 07/07/22 03:17 Urine RBC (Manual) 3+ (Negative) 07/07/22 03:17 Urine Mucus 3+ /HPF 07/07/22 03:17 Urine Osmolality 744 Mosm/kg 07/07/22 16:45 Urine Creatinine 92.9 mg/dL (0.1-20.0) H 07/07/22 16:45 Urine Sodium 109 mmol/L 07/07/22 16:45 Salicylates < 0.3 mg/dL (2.8-20.0) L 07/07/22 03:38 Urine Opiates Screen Presumptive negative 07/07/22 03:17 Urine Methadone Screen Presumptive negative 07/07/22 03:17 Acetaminophen 5.0 ug/mL (10.0-30.0) L 07/07/22 03:38 Ur Barbiturates Screen Presumptive negative 07/07/22 03:17 Valproic Acid 7.0 ug/mL (50-100) L 07/07/22 03:38 Ur Phencyclidine Scrn Presumptive negative 07/07/22 03:17 Ur Amphetamines Screen Presumptive negative 07/07/22 03:17 U Benzodiazepines Scrn Presumptive negative 07/07/22 03:17 Urine Cocaine Screen Presumptive negative 07/07/22 03:17 U Marijuana (THC) Screen Presumptive negative 07/07/22 03:17 Drugs of Abuse Note Disclamer 07/07/22 03:17 Plasma/Serum Alcohol < 0.01 % (0-0.07) 07/07/22 03:38 SARS-CoV-2 (PCR) Positive (Negative) A 07/07/22 15:00 [place]/IV: Voiding Method External Female Catheter Active Medications - Current Medications Current Medications: Generic Name Dose Route Start Last Admin Trade Name Freq PRN Reason Stop Dose Admin Acetaminophen 650 mg 07/13/22 12:00 07/25/22 21:28 Acetaminophen 325 Mg/10.15 Ml Oral Liqd Unit Dose FEEDTUBE 650 mg Q6H PRN Administration Pain MILD(1-3)/Fever >100.5/LEE Atorvastatin Calcium 80 mg 07/10/22 22:00 07/25/22 21:26 Atorvastatin 40 Mg Tab FEEDTUBE 80 mg QHS ERROL Administration Cholecalciferol 1,000 unit 07/10/22 10:00 07/25/22 09:28 Cholecalciferol (Vit D3) 1000 Unit (25 Mcg) Tab FEEDTUBE 1,000 unit QDAY ERROL Administration Dextrose 50 ml 07/09/22 11:42 Dextrose 50% In Water (25gm) 50 Ml Syringe IV Q30MIN PRN Hypoglycemia Protocol Famotidine 20 mg 07/09/22 22:00 07/25/22 21:26 Famotidine 20 Mg Tab FEEDTUBE 20 mg BID ERROL Administration Heparin Sodium (Porcine) 5,000 unit 07/08/22 06:00 07/26/22 06:13 Heparin 5,000 Unit/1 Ml Vial SUB-Q 5,000 unit Q12H ERROL Administration Hydrophilic Ointment 1 applic 07/07/22 02:48 Lip Therapy Vaseline TP Q2HR PRN Dry Lips Insulin Human Lispro 0 unit 07/09/22 12:00 07/26/22 06:13 Insulin Lispro 100 Unit/Ml SUB-Q Not Given Q6HR ERROL Protocol Levothyroxine Sodium 75 mcg 07/11/22 06:00 07/26/22 06:13 Levothyroxine 75 Mcg Tab FEEDTUBE 75 mcg QAM@0600 ERROL Administration Multi-Ingred Cream/Lotion/Oil/Oint 1 applic 07/07/22 02:48 Mineral Oil/Petrolatum, White Ophth Oint 3.5 Gm OU Q4HR PRN Dry Eye(s) Senna/Docusate Sodium 1 tab 07/07/22 10:00 07/25/22 21:27 Sennosides/Docusate Sodium 8.6/50 Mg Tab FEEDTUBE Not Given BID ERROL Sodium Chloride 10 ml 07/07/22 13:00 07/25/22 21:27 Sodium Chloride 0.9% 10 Ml Flush Syringe IV 10 ml BID ERROL Administration Sodium Chloride 10 ml 07/07/22 12:09 Sodium Chloride 0.9% 10 Ml Flush Syringe IV PRN PRN LINE FLUSH Valproic Acid 250 mg 07/10/22 22:00 07/25/22 21:28 Valproic Acid 250 Mg/5 Ml Oral Liqd FEEDTUBE 250 mg Q12H ERROL Administration Nutrition/Malnutrition Assess - Dietary Evaluation Nutrition/Malnutrition Findings: Nutrition Notes Start: 07/07/22 13:24 Freq: Status: Active Protocol: Document 07/24/22 09:24 DAREN (Rec: 07/24/22 09:53 DAREN [id number]) Nutrition Notes Initial or Follow up Reassessment Current Diagnosis Respiratory Failure,Stroke, Hyperlipidemia Other Pertinent Diagnosis COVID-19, Metabolic Encephalopathy, Pulmonary Embolism, Dementia. Current Diet TF-Vital AF 1.2 [place] @ 50 ml/hr (from D 07/12). Labs/Tests 07/24: CO2 33, Crea 0.4, Ca 8. 3. Pertinent Medications 07/24: Vit D3, D5w @ 50ml/hr, Levothyroxine, others nutritionally unremarkable. Height 5 ft 6 in Weight 96.2 kg [place] Body Weight (kg) 59.09 BMI 34.2 Weight change and time frame 0.946 Kg body weight gain in 1 week reported. Weight Status Obese Subjective/Other Information RD consult for routine F/U on TF tolerance/continuation assessment. TF continues as prescribed, and well tolerated, according to RN notes. Pt continues on Mechanical Ventilation, O2 saturation @ 98%, according to Physical Assessment History notes. Procedure on 07/22: Percutaneous Tracheostomy and EGD w/PEG-tube placement, well tolerated. according to Operative Report notes. TF resumed on 07/23, after PEG -tube placement, according to Progress notes. Possible discharge to LTAC facility, according to [facility] notes. Percent of energy/protein needs met: Prescribed TF-Vital AF 1.2 [place] @ 50 ml/hr provides for energy/protein needs (1,440 Kcal/90 g) during LOS, 101% Kcal, 91% AA. Burn Absent Trauma Absent GI Symptoms Other Difficulty In Swallowing,Chewing Food Allergy No Skin Integrity/Comment Assessment WNL. Current % PO Other Minimum of two criteria Yes Energy Intake (non-severe) <75% Estimated Energy Requirement >7 days Interpretation of Weight Loss (non- 5% in 1 month severe) Fluid Accumulation N/A Protein-Calorie Malnutrition Non-Severe #2 Nutrition Diagnosis Malnutrition Comments: TF continues as prescribed, and well tolerated, according to RN notes. Diagnosis Progress(for reassessment Improved documentation) #1 Nutrition Diagnosis Inadequate oral intake Comments: Procedure on 07/22: Percutaneous Tracheostomy and EGD w/PEG-tube placement, well tolerated. according to Operative Report notes. TF resumed on 07/23, after PEG -tube placement, according to Progress notes. Diagnosis Progress(for reassessment Continues documentation) Is patient on ventilator? Yes Is Patient Ambulatory and/or Out of Bed No REE-([place]-confined to bed) 1774.548 Kcal/Kg value to use for calculation 15 Approximate Energy Requirements Using 1443 kcal/Kg Calculation Used for Recommendations Kcal/kg Additional Notes Protein: 1.3 g/Kg AdjBW; 101 g /day. Fluids: 1 ml/Kcal, or as per MD. Nutrition Intervention Nutrition Support: Continue TF-Vital AF 1.2 [place] @ 50 ml/hr. Flush: 75 ml water Q 4 hr, or as per MD. Kcal 1,440 Protein (gm) 90 Carbohydrates (gm) 133 Fat (gm) 65 Fluid (mL) 973 Fiber (gm) 6 % RDI: 101% Kcal; 91% AA. Goal #1 Provide at least 75% of energy /protein needs through Enteral Feeding during LOS. Follow-Up By: 08/07/22 Additional Comments Continue monitoring TF tolerance, ventilation status, and BM.
[2022-07-25] MEDS: ACETAMINOPHEN 325 MG/10.15 ML ORAL LIQD UNIT DOSE FEEDTUBE PRN (21:28)
[2022-07-26 05:47] LABS: Hematocrit 26.2 % (30.3-42.9); Hemoglobin 8.8 gm/dl (10.1-14.3); Mean Corpuscular HGB Conc 34 % (30-34); Mean Corpuscular Volume 100 fl (79-97); Platelet Count 193 K/mm3 (140-440); Red Blood Count 2.61 M/mm3 (3.65-5.03); Red Cell Distribution Width 15.6 % (13.2-15.2)
[2022-07-26 06:05] LABS: Blood Urea Nitrogen 9 mg/dL (7-17); Calcium 7.9 mg/dL (8.4-10.2); Hemolysis Index 16
[2022-07-26 06:11] LABS: BUN/Creatinine Ratio 30
[2022-07-26] MEDS: LEVOTHYROXINE 75 MCG TAB FEEDTUBE SCH (06:13)
[2022-07-26] MEDS: HEPARIN 5,000 UNIT/1 ML VIAL SUB-Q SCH ×2 (06:13→18:07)
[2022-07-26] MEDS: INSULIN LISPRO 100 UNIT/ML SUB-Q SCH ×4 (06:13→23:33)
[2022-07-26] MEDS: CHOLECALCIFEROL (VIT D3) 1000 UNIT (25 mcg) TAB FEEDTUBE SCH (09:50)
[2022-07-26] MEDS: VALPROIC ACID 250 MG/5 ML ORAL LIQD FEEDTUBE SCH ×2 (09:50→21:53)
[2022-07-26] MEDS: FAMOTIDINE 20 MG TAB FEEDTUBE SCH ×2 (09:50→21:53)
[2022-07-26] MEDS: SENNOSIDES/DOCUSATE SODIUM 8.6/50 MG TAB FEEDTUBE SCH ×2 (09:51→21:53)
[2022-07-26] MEDS ORDERED: POTASSIUM CHLORIDE 20 MEQ PACKET FEEDTUBE SCH (10:00)
--- NOTE | 2022-07-26 11:33 | Progress Note ---
<GEORGE DAVIS - Last Filed: 07/26/22 18:21> Assessment and Plan Assessment and plan: This is a 76-year-old female with CVA, pulmonary embolism, hypothyroidism and JUJU admitted with electrolyte imbalances, hypoxic respiratory failure and COVID- 19 pneumonia Hospital Course to Date: 07/08: Patient noted to be COVID-positive, started on remdesivir, Decadron, ceftriaxone azithromycin and infectious disease was consulted yesterday. This morning patient is on any sedation, PICC line to be placed. RT to attempt PSV. Started on free water flushes and tube feedings. Continues on D5 half-normal saline. 07/09: Patient remains encephalopathic, not on any sedation. Hypernatremia is improving, on FWF Q4hrs and D5w gtt per Nephro. If hypernatremia continue to improve and patient's mentation is unchanged, will get a repeat CT to r/o intracranial abnormalities. Patient remains afebrile, leukocytosis improved, and VSS. Continue current IV abx per ID. Patient failed PSV trial again today, trevon nue PSV trial as tolerated 07/10: Remains stable on the vent, tolerating PSV trial this am. sodium continue to improve but no change in mental status. D/w CCM will get MRI brain to r/o any intracranial abnormalities, EEG also ordered to r/o seizures. Continue FWF and D5w gtt per Nephro. Continue IV steroids and current IV abx per ID. 07/11: Hypernatremia resolved, mentation is unchanged, remains on low vent setting. EEG noted, and MRI brain pending. Will consult Neurology for further recommendations. Continue daily PSV trial as tolerated. 07/12: Appears more awake this morning but still not following any commands. MRI brain with no acute findings and sodium normalized. Awaiting Neuro consult. Continue daily PSV trial as tolerated. Patient's daughter was updated via phone, all questions and concerns were addressed at this time. Medical records requested from and [facility]. 07/13: DELMI overnight. Mentation is unchanged, remains stable on the vent. Neurology consult pending. Continue vent adjustment per CCM and daily PSV trial as tolerated. 07/14: Mentation is unchanged, remains afebrile and stable on the vent, VSS. Complete antibiotics course, still on IV steroids X3 more days. ID recommendations noted, remove corbin. Continue daily PSV trial as tolerated. 07/15: DELMI overnight, mentation unchanged, VSS. Patient failed PSV trial this am due to apnea. Continue daily PSV trial as tolerated. Possible trach and Peg per [facility]. 07/16: No acute events overnight, attempted PSV again today. [facility] to have family meeting on 07/17 to discuss trach/PEG 07/17: [facility] will have family meeting tomorrow. Failed PSV again. No acute events overnight. Thrombocytopenia continues to improve 07/18: [facility] held a family meeting today and surgery will be consulted for trach/PEG placement. Family stated that patient had not had her levothyroxine for several months due to decreased p.o. intake, will send thyroid panel. No acute events reported overnight. Hypotension today and 500 mL normal saline bolus given. Possible trach/peg within 2 days 07/19: No acute events reported overnight. Free T4 normal. Failed PSV 07/20: No acute events reported overnight. Patient taken off isolation per ID. Trach/PEG scheduled for Friday. failed PSV 07/21: No acute events reported overnight. Trach/peg for friday. PSV ongoing 07/22: Remains stable, DELMI overnight. Plan for possible Trac/PEG today by general surgery. Continue dailu PSV trial as tolerated. 07/23: s/p trach and PEG, remains stable on low vent setting, recent CXR is unremarkable. VSS. Resume TF once okayed by General Surgery. Continue daily PSV trial as tolerated. Possible LTAC placement, case management to arrange. 07/24: Remains stable on the vent, tolerating TF via Peg. Continue supportive measures and daily PSV trial. Awaiting placement. 07/25: DELMI overnight. Continue supportive measures and daily PSV trial. PT/OT consulted. Awaiting placement, case management to arrange. 07/26: DELMI overnight. Continue supportive measures and daily PSV trial. Awaiting placement, case management to arrange. Assessment and Plan Neuro: Acute metabolic encephalopathy, h/o CVA with hemiplegia, dysphagia, aphasia, dementia -Reorientation as needed -Maintain sleep-wake cycle -Resume home Lipitor -As needed analgesia -CT head shows no acute intracranial hemorrhage, multiple chronic appearing infarcts including left MCA distribution, left cerebral hemisphere and within the right basal ganglia -Depakene -EEG noted -MRI noted -Neurology consult pending Cardiac: h/o HLD -Resume home Lipitor -Blood pressure monitoring per protocol Respiratory: Acute hypoxic respiratory failure, h/o JUJU, pulmonary embolism -CCM consulted, appreciate recommendations -Intubated on 07/07 -07/22 s/p Trach/PEG -A.m. vent settings:PRVC-28%,6,10,400 -See RT notes for titration -A.m. ABG and CXR noted -VAP bundle -SPO2 monitoring GI:TF -07/22 s/p PEGtube placement -PPI -NTR consulted for tube feedings -BR: Senokot-S : Hypernatremia(resolved), hypokalemia, rhabdomyolysis -Nephrology consulted, appreciate recommendations -Monitor intake and output -Free water flush -Renally dose medications -Avoid nephrotoxic medications -Replete potassium -Trend BMP ID: COVID Pneumonia, lactic acidosis -Infectious disease consulted, appreciate recommendation -completed IV antibiotics course -Dexamethasone for 10 days, end 07/17 -Contact/droplet precautions -f/u blood culture -Trend COVID-19 inflammatory markers -Monitor WBC and temperature curve -Prophylactic anticoagulation based on D-dimer per hospital protocol Heme: Thrombocytopenia-improved -Patient presented with low plt -Plt continue to trend down, but less than 50% of admit count -No s/s of any active bleeding, H&H stable -Continue to trend CBC -On Heparin SubQ -Transfuse for plt less than 20 and hgb less than 7 Endo: h/o hypothyroidism -Avoid hypoglycemia -SSI -Accu-Cheks q. 6 -Long-acting insulin, titrate as needed -Resume home Synthroid GI/DVT Prophylaxis -PPI- pepcid -Heparin SubQ -SCDs to bilateral lower extremities while in bed The high probability of a clinically significant, sudden or life threatening deterioration of the [multi] system(s) required my full and direct attention, intervention and personal management. The aggregate critical care time was [60] minutes. This time is in addition to time spent performing reported procedures but includes the following: [x] Data Review and interpretation [x] Patient assessment and monitoring of vital signs [x] Documentation [x] Medication orders and management Disposition Plan: ICU Total Time Spent with Patient (Minutes): 60 History Interval history: Patient seen and examined at the bedside. Remains stable on the vent. VSS. DELMI overnight Hospitalist Physical - Physical exam Narrative exam: General appearance: Present: other (Trached, stable on the vent) - EENT Eyes: Present: PERRL - Respiratory Respiratory effort: normal Respiratory: bilateral: rhonchi - Cardiovascular Rhythm: regular Heart Sounds: Present: S1 & S2 - Extremities Extremities: no ischemia, pulses intact, pulses symmetrical Extremity abnormal: edema - Peripheral Assessment Generalized Edema Type: Non-pitting Edema Degree: 2+ Capillary Refill: < 3 seconds Skin Temperature: Warm Peripheral Pulses: within normal limits - Abdominal General gastrointestinal: soft, non-distended, normal bowel sounds - Integumentary Integumentary: Present: warm, dry - Psychiatric Psychiatric: other (Trached, unresponsive on the vent, not on any sedations) - Neurologic Neurologic: other (Trached, unresponsive, not on any sedations. Open eyes spontaneously, does not track, not following commands, with nonpurposeful movements) - Allied Health Allied health notes reviewed: nursing, case management - Constitutional Vitals: Temp Pulse Resp BP Pulse Ox 98.1 F 96 H 12 118/72 100 07/26/22 07:15 07/26/22 10:00 07/26/22 10:00 07/26/22 10:00 07/26/22 10:00 HEART Score - HEART Score Troponin: Troponin T 0.010 ng/mL (0.00-0.029) 07/07/22 04:17 Results - Labs CBC & Chem 7: 07/26/22 Unknown 07/26/22 06:00 Labs: Laboratory Last Values WBC 6.1 K/mm3 (4.5-11.0) 07/26/22 Unknown RBC 2.61 M/mm3 (3.65-5.03) L 07/26/22 Unknown Hgb 8.8 gm/dl (10.1-14.3) L 07/26/22 Unknown Hct 26.2 % (30.3-42.9) L 07/26/22 Unknown MCV 100 fl (79-97) H 07/26/22 Unknown MCH 34 pg (28-32) H 07/26/22 Unknown MCHC 34 % (30-34) 07/26/22 Unknown RDW 15.6 % (13.2-15.2) H 07/26/22 Unknown Plt Count 193 K/mm3 (140-440) 07/26/22 Unknown Lymph % (Auto) 33.3 % (13.4-35.0) 07/22/22 04:13 [place] % (Auto) 10.0 % (0.0-7.3) H 07/22/22 04:13 Eos % (Auto) 0.5 % (0.0-4.3) 07/22/22 04:13 Baso % (Auto) 0.1 % (0.0-1.8) 07/22/22 04:13 Lymph # (Auto) 2.1 K/mm3 (1.2-5.4) 07/22/22 04:13 [place] # (Auto) 0.6 K/mm3 (0.0-0.8) 07/22/22 04:13 Eos # (Auto) 0.0 K/mm3 (0.0-0.4) 07/22/22 04:13 Baso # (Auto) 0.0 K/mm3 (0.0-0.1) 07/22/22 04:13 Seg Neutrophils % 56.1 % (40.0-70.0) 07/22/22 04:13 Seg Neutrophils # 3.6 K/mm3 (1.8-7.7) 07/22/22 04:13 PT 13.0 Sec. (12.2-14.9) 07/22/22 04:13 INR 0.87 (0.87-1.13) 07/22/22 04:13 APTT 23.0 Sec. (24.2-36.6) L 07/07/22 03:38 D-Dimer 925.80 ng/mlDDU (0-234) H 07/12/22 04:00 ABG pH 7.503 pH Units (7.350-7.450) H 07/20/22 05:30 ABG pCO2 42.7 mm Hg 07/20/22 05:30 ABG pO2 99.1 mm Hg (80.0-90.0) H 07/20/22 05:30 ABG HCO3 32.8 mmol/L (20.0-26.0) H 07/20/22 05:30 ABG O2 Saturation 97.8 % (95.0-99.0) 07/20/22 05:30 ABG O2 Content 13.3 (0.0-44) 07/20/22 05:30 ABG Base Excess 8.8 mmol/L (-2.0-3.0) H 07/20/22 05:30 ABG Hemoglobin 9.7 gm/dl (12.0-16.0) L 07/20/22 05:30 ABG Carboxyhemoglobin 1.3 % (0.0-5.0) 07/20/22 05:30 ABG Methemoglobin 0.6 % (0.0-1.5) 07/20/22 05:30 Oxyhemoglobin 95.9 % (95.0-99.0) 07/20/22 05:30 FiO2 28 % 07/20/22 05:30 Sodium 142 mmol/L (137-145) 07/26/22 06:00 Potassium 3.5 mmol/L (3.6-5.0) L 07/26/22 06:00 Chloride 101.3 mmol/L (98-107) 07/26/22 06:00 Carbon Dioxide 32 mmol/L (22-30) H 07/26/22 06:00 Anion Gap 12 mmol/L 07/26/22 06:00 BUN 9 mg/dL (7-17) 07/26/22 06:00 Creatinine 0.3 mg/dL (0.6-1.2) L 07/26/22 06:00 Estimated GFR > 60 ml/min 07/26/22 06:00 BUN/Creatinine Ratio 30 % 07/26/22 06:00 Glucose 116 mg/dL (65-100) H 07/26/22 06:00 POC Glucose 134 mg/dL (70-105) H 07/26/22 06:08 Lactic Acid 2.10 mmol/L (0.7-2.0) H* 07/10/22 08:24 Uric Acid 13.5 mg/dL (3.5-7.6) H 07/07/22 04:17 Calcium 7.9 mg/dL (8.4-10.2) L 07/26/22 06:00 Phosphorus 2.20 mg/dL (2.5-4.5) L 07/25/22 04:22 Magnesium 1.90 mg/dL (1.7-2.3) 07/25/22 04:22 Ferritin 519.5 ng/mL (10.0-200.0) H 07/12/22 04:00 Total Bilirubin 0.30 mg/dL (0.1-1.2) 07/10/22 04:21 AST 89 units/L (5-40) H 07/10/22 04:21 ALT 53 units/L (7-56) 07/10/22 04:21 Alkaline Phosphatase 83 units/L (35-129) 07/10/22 04:21 Ammonia 32.0 umol/L (25-60) 07/07/22 04:17 Lactate Dehydrogenase 444 units/L (91-180) H 07/12/22 04:00 Total Creatine Kinase 1745 units/L (30-135) H 07/11/22 05:40 Troponin T 0.010 ng/mL (0.00-0.029) 07/07/22 04:17 C-Reactive Protein 0.30 mg/dL (0.00-1.30) 07/12/22 04:00 Total Protein 4.9 g/dL (6.3-8.2) L 07/10/22 04:21 Albumin 2.5 g/dL (3.9-5) L 07/10/22 04:21 Albumin/Globulin Ratio 1.0 % 07/10/22 04:21 Procalcitonin 0.19 ng/mL (<0.15) 07/08/22 14:54 TSH 9.750 mlU/mL (0.270-4.200) H 07/18/22 12:31 Free T4 0.78 ng/dL (0.76-1.46) 07/18/22 12:31 Thyroxine (T4) 6.2 ug/dL (4.0-12.0) 07/18/22 12:31 Free T3 Index 1.7 pg/mL (2.3-4.2) L 07/18/22 12:31 Total Cortisol 47.9 mcg/dL () 07/07/22 07:43 Urine Color Yellow (Yellow) 07/07/22 03:17 Urine Turbidity Slightly cloudy (Clear) 07/07/22 03:17 Specific [place] (Man) 1.015 (1.003-1.030) 07/07/22 03:17 Ur Protein (Man) 1+ mg/dL (Negative) 07/07/22 03:17 Ur Ketones (Man) Negative (Negative) 07/07/22 03:17 Ur Nitrite (Man) Negative (Negative) 07/07/22 03:17 Urine Bilirubin (Man) Negative (Negative) 07/07/22 03:17 Leukocyte Esterase (Man) Negative (Negative) 07/07/22 03:17 Urine WBC (Auto) 7.0 /HPF (0.0-6.0) H 07/07/22 03:17 Urine RBC (Auto) 1.0 /HPF (0.0-6.0) 07/07/22 03:17 U Epithel Cells (Auto) 4.0 /HPF (0-13.0) 07/07/22 03:17 Urine Bacteria (Auto) 3+ /HPF (Negative) 07/07/22 03:17 Urine RBC (Manual) 3+ (Negative) 07/07/22 03:17 Urine Mucus 3+ /HPF 07/07/22 03:17 Urine Osmolality 744 Mosm/kg 07/07/22 16:45 Urine Creatinine 92.9 mg/dL (0.1-20.0) H 07/07/22 16:45 Urine Sodium 109 mmol/L 07/07/22 16:45 Salicylates < 0.3 mg/dL (2.8-20.0) L 07/07/22 03:38 Urine Opiates Screen Presumptive negative 07/07/22 03:17 Urine Methadone Screen Presumptive negative 07/07/22 03:17 Acetaminophen 5.0 ug/mL (10.0-30.0) L 07/07/22 03:38 Ur Barbiturates Screen Presumptive negative 07/07/22 03:17 Valproic Acid 7.0 ug/mL (50-100) L 07/07/22 03:38 Ur Phencyclidine Scrn Presumptive negative 07/07/22 03:17 Ur Amphetamines Screen Presumptive negative 07/07/22 03:17 U Benzodiazepines Scrn Presumptive negative 07/07/22 03:17 Urine Cocaine Screen Presumptive negative 07/07/22 03:17 U Marijuana (THC) Screen Presumptive negative 07/07/22 03:17 Drugs of Abuse Note Disclamer 07/07/22 03:17 Plasma/Serum Alcohol < 0.01 % (0-0.07) 07/07/22 03:38 SARS-CoV-2 (PCR) Positive (Negative) A 07/07/22 15:00 [place]/IV: Voiding Method External Female Catheter Active Medications - Current Medications Current Medications: Generic Name Dose Route Start Last Admin Trade Name Freq PRN Reason Stop Dose Admin Acetaminophen 650 mg 07/13/22 12:00 07/25/22 21:28 Acetaminophen 325 Mg/10.15 Ml Oral Liqd Unit Dose FEEDTUBE 650 mg Q6H PRN Administration Pain MILD(1-3)/Fever >100.5/LEE Atorvastatin Calcium 80 mg 07/10/22 22:00 07/25/22 21:26 Atorvastatin 40 Mg Tab FEEDTUBE 80 mg QHS ERROL Administration Cholecalciferol 1,000 unit 07/10/22 10:00 07/26/22 09:50 Cholecalciferol (Vit D3) 1000 Unit (25 Mcg) Tab FEEDTUBE 1,000 unit QDAY ERROL Administration Dextrose 50 ml 07/09/22 11:42 Dextrose 50% In Water (25gm) 50 Ml Syringe IV Q30MIN PRN Hypoglycemia Protocol Famotidine 20 mg 07/09/22 22:00 07/26/22 09:50 Famotidine 20 Mg Tab FEEDTUBE 20 mg BID ERROL Administration Heparin Sodium (Porcine) 5,000 unit 07/08/22 06:00 07/26/22 06:13 Heparin 5,000 Unit/1 Ml Vial SUB-Q 5,000 unit Q12H ERROL Administration Hydrophilic Ointment 1 applic 07/07/22 02:48 Lip Therapy Vaseline TP Q2HR PRN Dry Lips Insulin Human Lispro 0 unit 07/09/22 12:00 07/26/22 06:13 Insulin Lispro 100 Unit/Ml SUB-Q Not Given Q6HR [facility] Protocol Levothyroxine Sodium 75 mcg 07/11/22 06:00 07/26/22 06:13 Levothyroxine 75 Mcg Tab FEEDTUBE 75 mcg QAM@0600 ERROL Administration Multi-Ingred Cream/Lotion/Oil/Oint 1 applic 07/07/22 02:48 Mineral Oil/Petrolatum, White Ophth Oint 3.5 Gm OU Q4HR PRN Dry Eye(s) Potassium Chloride 40 meq 07/26/22 10:00 07/26/22 09:50 Potassium Chloride 20 Meq Packet FEEDTUBE 07/26/22 14:00 40 meq ONCE ERROL Administration Senna/Docusate Sodium 1 tab 07/07/22 10:00 07/26/22 09:51 Sennosides/Docusate Sodium 8.6/50 Mg Tab FEEDTUBE Not Given BID ERROL Sodium Chloride 10 ml 07/07/22 13:00 07/26/22 09:50 Sodium Chloride 0.9% 10 Ml Flush Syringe IV 10 ml BID ERROL Administration Sodium Chloride 10 ml 07/07/22 12:09 Sodium Chloride 0.9% 10 Ml Flush Syringe IV PRN PRN LINE FLUSH Valproic Acid 250 mg 07/10/22 22:00 07/26/22 09:50 Valproic Acid 250 Mg/5 Ml Oral Liqd FEEDTUBE 250 mg Q12H ERROL Administration Nutrition/Malnutrition Assess - Dietary Evaluation Nutrition/Malnutrition Findings: Nutrition Notes Start: 07/07/22 13:24 Freq: Status: Active Protocol: Document 07/24/22 09:24 DAREN (Rec: 07/24/22 09:53 DAREN [id number]) Nutrition Notes Initial or Follow up Reassessment Current Diagnosis Respiratory Failure,Stroke, Hyperlipidemia Other Pertinent Diagnosis COVID-19, Metabolic Encephalopathy, Pulmonary Embolism, Dementia. Current Diet TF-Vital AF 1.2 [place] @ 50 ml/hr (from D 07/12). Labs/Tests 07/24: CO2 33, Crea 0.4, Ca 8. 3. Pertinent Medications 07/24: Vit D3, D5w @ 50ml/hr, Levothyroxine, others nutritionally unremarkable. Height 5 ft 6 in Weight 96.2 kg [place] Body Weight (kg) 59.09 BMI 34.2 Weight change and time frame 0.946 Kg body weight gain in 1 week reported. Weight Status Obese Subjective/Other Information RD consult for routine F/U on TF tolerance/continuation assessment. TF continues as prescribed, and well tolerated, according to RN notes. Pt continues on Mechanical Ventilation, O2 saturation @ 98%, according to Physical Assessment History notes. Procedure on 07/22: Percutaneous Tracheostomy and EGD w/PEG-tube placement, well tolerated. according to Operative Report notes. TF resumed on 07/23, after PEG -tube placement, according to Progress notes. Possible discharge to LTAC facility, according to Progress notes. Percent of energy/protein needs met: Prescribed TF-Vital AF 1.2 [place] @ 50 ml/hr provides for energy/protein needs (1,440 Kcal/90 g) during LOS, 101% Kcal, 91% AA. Burn Absent Trauma Absent GI Symptoms Other Difficulty In Swallowing,Chewing Food Allergy No Skin Integrity/Comment Assessment WNL. Current % PO Other Minimum of two criteria Yes Energy Intake (non-severe) <75% Estimated Energy Requirement >7 days Interpretation of Weight Loss (non- 5% in 1 month severe) Fluid Accumulation N/A Protein-Calorie Malnutrition Non-Severe #2 Nutrition Diagnosis Malnutrition Comments: TF continues as prescribed, and well tolerated, according to RN notes. Diagnosis Progress(for reassessment Improved documentation) #1 Nutrition Diagnosis Inadequate oral intake Comments: Procedure on 07/22: Percutaneous Tracheostomy and EGD w/PEG-tube placement, well tolerated. according to Operative Report notes. TF resumed on 07/23, after PEG -tube placement, according to Progress notes. Diagnosis Progress(for reassessment Continues documentation) Is patient on ventilator? Yes Is Patient Ambulatory and/or Out of Bed No REE-([facility]-confined to bed) 1774.548 Kcal/Kg value to use for calculation 15 Approximate Energy Requirements Using 1443 kcal/Kg Calculation Used for Recommendations Kcal/kg Additional Notes Protein: 1.3 g/Kg AdjBW; 101 g /day. Fluids: 1 ml/Kcal, or as per MD. Nutrition Intervention Nutrition Support: Continue TF-Vital AF 1.2 [place] @ 50 ml/hr. Flush: 75 ml water Q 4 hr, or as per MD. Kcal 1,440 Protein (gm) 90 Carbohydrates (gm) 133 Fat (gm) 65 Fluid (mL) 973 Fiber (gm) 6 % RDI: 101% Kcal; 91% AA. Goal #1 Provide at least 75% of energy /protein needs through Enteral Feeding during LOS. Follow-Up By: 08/07/22 Additional Comments Continue monitoring TF tolerance, ventilation status, and BM. <ANAHI ANGELES E - Last Filed: 07/27/22 07:31> Assessment and Plan Assessment and plan: I saw and evaluated the patient. I agree with the findings and the plan of care as documented in the Nurse Practitioner's~note, with the following corrections and additions. Hospitalist Physical - Constitutional Vitals: Temp Pulse Resp BP Pulse Ox 97.9 F 94 H 12 112/60 100 07/27/22 04:31 07/27/22 06:01 07/27/22 06:01 07/27/22 06:01 07/27/22 06:01 HEART Score - HEART Score Troponin: Troponin T 0.010 ng/mL (0.00-0.029) 07/07/22 04:17 Results - Labs CBC & Chem 7: 07/26/22 Unknown 07/26/22 06:00 Labs: Laboratory Last Values WBC 6.1 K/mm3 (4.5-11.0) 07/26/22 Unknown RBC 2.61 M/mm3 (3.65-5.03) L 07/26/22 Unknown Hgb 8.8 gm/dl (10.1-14.3) L 07/26/22 Unknown Hct 26.2 % (30.3-42.9) L 07/26/22 Unknown MCV 100 fl (79-97) H 07/26/22 Unknown MCH 34 pg (28-32) H 07/26/22 Unknown MCHC 34 % (30-34) 07/26/22 Unknown RDW 15.6 % (13.2-15.2) H 07/26/22 Unknown Plt Count 193 K/mm3 (140-440) 07/26/22 Unknown Lymph % (Auto) 33.3 % (13.4-35.0) 07/22/22 04:13 [place] % (Auto) 10.0 % (0.0-7.3) H 07/22/22 04:13 Eos % (Auto) 0.5 % (0.0-4.3) 07/22/22 04:13 Baso % (Auto) 0.1 % (0.0-1.8) 07/22/22 04:13 Lymph # (Auto) 2.1 K/mm3 (1.2-5.4) 07/22/22 04:13 [place] # (Auto) 0.6 K/mm3 (0.0-0.8) 07/22/22 04:13 Eos # (Auto) 0.0 K/mm3 (0.0-0.4) 07/22/22 04:13 Baso # (Auto) 0.0 K/mm3 (0.0-0.1) 07/22/22 04:13 Seg Neutrophils % 56.1 % (40.0-70.0) 07/22/22 04:13 Seg Neutrophils # 3.6 K/mm3 (1.8-7.7) 07/22/22 04:13 PT 13.0 Sec. (12.2-14.9) 07/22/22 04:13 INR 0.87 (0.87-1.13) 07/22/22 04:13 APTT 23.0 Sec. (24.2-36.6) L 07/07/22 03:38 D-Dimer 925.80 ng/mlDDU (0-234) H 07/12/22 04:00 ABG pH 7.503 pH Units (7.350-7.450) H 07/20/22 05:30 ABG pCO2 42.7 mm Hg 07/20/22 05:30 ABG pO2 99.1 mm Hg (80.0-90.0) H 07/20/22 05:30 ABG HCO3 32.8 mmol/L (20.0-26.0) H 07/20/22 05:30 ABG O2 Saturation 97.8 % (95.0-99.0) 07/20/22 05:30 ABG O2 Content 13.3 (0.0-44) 07/20/22 05:30 ABG Base Excess 8.8 mmol/L (-2.0-3.0) H 07/20/22 05:30 ABG Hemoglobin 9.7 gm/dl (12.0-16.0) L 07/20/22 05:30 ABG Carboxyhemoglobin 1.3 % (0.0-5.0) 07/20/22 05:30 ABG Methemoglobin 0.6 % (0.0-1.5) 07/20/22 05:30 Oxyhemoglobin 95.9 % (95.0-99.0) 07/20/22 05:30 FiO2 28 % 07/20/22 05:30 Sodium 142 mmol/L (137-145) 07/26/22 06:00 Potassium 3.5 mmol/L (3.6-5.0) L 07/26/22 06:00 Chloride 101.3 mmol/L (98-107) 07/26/22 06:00 Carbon Dioxide 32 mmol/L (22-30) H 07/26/22 06:00 Anion Gap 12 mmol/L 07/26/22 06:00 BUN 9 mg/dL (7-17) 07/26/22 06:00 Creatinine 0.3 mg/dL (0.6-1.2) L 07/26/22 06:00 Estimated GFR > 60 ml/min 07/26/22 06:00 BUN/Creatinine Ratio 30 % 07/26/22 06:00 Glucose 116 mg/dL (65-100) H 07/26/22 06:00 POC Glucose 124 mg/dL (70-105) H 07/27/22 05:54 Lactic Acid 2.10 mmol/L (0.7-2.0) H* 07/10/22 08:24 Uric Acid 13.5 mg/dL (3.5-7.6) H 07/07/22 04:17 Calcium 7.9 mg/dL (8.4-10.2) L 07/26/22 06:00 Phosphorus 2.20 mg/dL (2.5-4.5) L 07/25/22 04:22 Magnesium 1.90 mg/dL (1.7-2.3) 07/25/22 04:22 Ferritin 519.5 ng/mL (10.0-200.0) H 07/12/22 04:00 Total Bilirubin 0.30 mg/dL (0.1-1.2) 07/10/22 04:21 AST 89 units/L (5-40) H 07/10/22 04:21 ALT 53 units/L (7-56) 07/10/22 04:21 Alkaline Phosphatase 83 units/L (35-129) 07/10/22 04:21 Ammonia 32.0 umol/L (25-60) 07/07/22 04:17 Lactate Dehydrogenase 444 units/L (91-180) H 07/12/22 04:00 Total Creatine Kinase 1745 units/L (30-135) H 07/11/22 05:40 Troponin T 0.010 ng/mL (0.00-0.029) 07/07/22 04:17 C-Reactive Protein 0.30 mg/dL (0.00-1.30) 07/12/22 04:00 Total Protein 4.9 g/dL (6.3-8.2) L 07/10/22 04:21 Albumin 2.5 g/dL (3.9-5) L 07/10/22 04:21 Albumin/Globulin Ratio 1.0 % 07/10/22 04:21 Procalcitonin 0.19 ng/mL (<0.15) 07/08/22 14:54 TSH 9.750 mlU/mL (0.270-4.200) H 07/18/22 12:31 Free T4 0.78 ng/dL (0.76-1.46) 07/18/22 12:31 Thyroxine (T4) 6.2 ug/dL (4.0-12.0) 07/18/22 12:31 Free T3 Index 1.7 pg/mL (2.3-4.2) L 07/18/22 12:31 Total Cortisol 47.9 mcg/dL () 07/07/22 07:43 Urine Color Yellow (Yellow) 07/07/22 03:17 Urine Turbidity Slightly cloudy (Clear) 07/07/22 03:17 Specific [place] (Man) 1.015 (1.003-1.030) 07/07/22 03:17 Ur Protein (Man) 1+ mg/dL (Negative) 07/07/22 03:17 Ur Ketones (Man) Negative (Negative) 07/07/22 03:17 Ur Nitrite (Man) Negative (Negative) 07/07/22 03:17 Urine Bilirubin (Man) Negative (Negative) 07/07/22 03:17 Leukocyte Esterase (Man) Negative (Negative) 07/07/22 03:17 Urine WBC (Auto) 7.0 /HPF (0.0-6.0) H 07/07/22 03:17 Urine RBC (Auto) 1.0 /HPF (0.0-6.0) 07/07/22 03:17 U Epithel Cells (Auto) 4.0 /HPF (0-13.0) 07/07/22 03:17 Urine Bacteria (Auto) 3+ /HPF (Negative) 07/07/22 03:17 Urine RBC (Manual) 3+ (Negative) 07/07/22 03:17 Urine Mucus 3+ /HPF 07/07/22 03:17 Urine Osmolality 744 Mosm/kg 07/07/22 16:45 Urine Creatinine 92.9 mg/dL (0.1-20.0) H 07/07/22 16:45 Urine Sodium 109 mmol/L 07/07/22 16:45 Salicylates < 0.3 mg/dL (2.8-20.0) L 07/07/22 03:38 Urine Opiates Screen Presumptive negative 07/07/22 03:17 Urine Methadone Screen Presumptive negative 07/07/22 03:17 Acetaminophen 5.0 ug/mL (10.0-30.0) L 07/07/22 03:38 Ur Barbiturates Screen Presumptive negative 07/07/22 03:17 Valproic Acid 7.0 ug/mL (50-100) L 07/07/22 03:38 Ur Phencyclidine Scrn Presumptive negative 07/07/22 03:17 Ur Amphetamines Screen Presumptive negative 07/07/22 03:17 U Benzodiazepines Scrn Presumptive negative 07/07/22 03:17 Urine Cocaine Screen Presumptive negative 07/07/22 03:17 U Marijuana (THC) Screen Presumptive negative 07/07/22 03:17 Drugs of Abuse Note Disclamer 07/07/22 03:17 Plasma/Serum Alcohol < 0.01 % (0-0.07) 07/07/22 03:38 SARS-CoV-2 (PCR) Positive (Negative) A 07/07/22 15:00 [place]/IV: Voiding Method Incontinent Active Medications - Current Medications Current Medications: Generic Name Dose Route Start Last Admin Trade Name Freq PRN Reason Stop Dose Admin Acetaminophen 650 mg 07/13/22 12:00 07/25/22 21:28 Acetaminophen 325 Mg/10.15 Ml Oral Liqd Unit Dose FEEDTUBE 650 mg Q6H PRN Administration Pain MILD(1-3)/Fever >100.5/LEE Atorvastatin Calcium 80 mg 07/10/22 22:00 07/26/22 21:53 Atorvastatin 40 Mg Tab FEEDTUBE 80 mg QHS ERROL Administration Cholecalciferol 1,000 unit 07/10/22 10:00 07/26/22 09:50 Cholecalciferol (Vit D3) 1000 Unit (25 Mcg) Tab FEEDTUBE 1,000 unit QDAY ERROL Administration Dextrose 50 ml 07/09/22 11:42 Dextrose 50% In Water (25gm) 50 Ml Syringe IV Q30MIN PRN Hypoglycemia Protocol Famotidine 20 mg 07/09/22 22:00 07/26/22 21:53 Famotidine 20 Mg Tab FEEDTUBE 20 mg BID ERROL Administration Heparin Sodium (Porcine) 5,000 unit 07/08/22 06:00 07/27/22 06:22 Heparin 5,000 Unit/1 Ml Vial SUB-Q 5,000 unit Q12H ERROL Administration Hydrophilic Ointment 1 applic 07/07/22 02:48 Lip Therapy Vaseline TP Q2HR PRN Dry Lips Insulin Human Lispro 0 unit 07/09/22 12:00 07/27/22 06:10 Insulin Lispro 100 Unit/Ml SUB-Q Not Given Q6HR ERROL Protocol Levothyroxine Sodium 75 mcg 07/11/22 06:00 07/27/22 06:22 Levothyroxine 75 Mcg Tab FEEDTUBE 75 mcg QAM@0600 ERROL Administration Multi-Ingred Cream/Lotion/Oil/Oint 1 applic 07/07/22 02:48 Mineral Oil/Petrolatum, White Ophth Oint 3.5 Gm OU Q4HR PRN Dry Eye(s) Senna/Docusate Sodium 1 tab 07/07/22 10:00 07/26/22 21:53 Sennosides/Docusate Sodium 8.6/50 Mg Tab FEEDTUBE Not Given BID ERROL Sodium Chloride 10 ml 07/07/22 13:00 07/26/22 21:53 Sodium Chloride 0.9% 10 Ml Flush Syringe IV 10 ml BID ERROL Administration Sodium Chloride 10 ml 07/07/22 12:09 Sodium Chloride 0.9% 10 Ml Flush Syringe IV PRN PRN LINE FLUSH Valproic Acid 250 mg 07/10/22 22:00 07/26/22 21:53 Valproic Acid 250 Mg/5 Ml Oral Liqd FEEDTUBE 250 mg Q12H ERROL Administration Nutrition/Malnutrition Assess - Dietary Evaluation Nutrition/Malnutrition Findings: Nutrition Notes Start: 07/07/22 13:24 Freq: Status: Active Protocol: Document 07/24/22 09:24 DAREN (Rec: 07/24/22 09:53 DAREN [id number]) Nutrition Notes Initial or Follow up Reassessment Current Diagnosis Respiratory Failure,Stroke, Hyperlipidemia Other Pertinent Diagnosis COVID-19, Metabolic Encephalopathy, Pulmonary Embolism, Dementia. Current Diet TF-Vital AF 1.2 [place] @ 50 ml/hr (from D 07/12). Labs/Tests 07/24: CO2 33, Crea 0.4, Ca 8. 3. Pertinent Medications 07/24: Vit D3, D5w @ 50ml/hr, Levothyroxine, others nutritionally unremarkable. Height 5 ft 6 in Weight 96.2 kg [place] Body Weight (kg) 59.09 BMI 34.2 Weight change and time frame 0.946 Kg body weight gain in 1 week reported. Weight Status Obese Subjective/Other Information RD consult for routine F/U on TF tolerance/continuation assessment. TF continues as prescribed, and well tolerated, according to RN notes. Pt continues on Mechanical Ventilation, O2 saturation @ 98%, according to Physical Assessment History notes. Procedure on 07/22: Percutaneous Tracheostomy and EGD w/PEG-tube placement, well tolerated. according to Operative Report notes. TF resumed on 07/23, after PEG -tube placement, according to Progress notes. Possible discharge to LTAC facility, according to [facility] notes. Percent of energy/protein needs met: Prescribed TF-Vital AF 1.2 [place] @ 50 ml/hr provides for energy/protein needs (1,440 Kcal/90 g) during LOS, 101% Kcal, 91% AA. Burn Absent Trauma Absent GI Symptoms Other Difficulty In Swallowing,Chewing Food Allergy No Skin Integrity/Comment Assessment WNL. Current % PO Other Minimum of two criteria Yes Energy Intake (non-severe) <75% Estimated Energy Requirement >7 days Interpretation of Weight Loss (non- 5% in 1 month severe) Fluid Accumulation N/A Protein-Calorie Malnutrition Non-Severe #2 Nutrition Diagnosis Malnutrition Comments: TF continues as prescribed, and well tolerated, according to RN notes. Diagnosis Progress(for reassessment Improved documentation) #1 Nutrition Diagnosis Inadequate oral intake Comments: Procedure on 07/22: Percutaneous Tracheostomy and EGD w/PEG-tube placement, well tolerated. according to Operative Report notes. TF resumed on 07/23, after PEG -tube placement, according to [facility] notes. Diagnosis Progress(for reassessment Continues documentation) Is patient on ventilator? Yes Is Patient Ambulatory and/or Out of Bed No REE-([place]-confined to bed) 1774.548 Kcal/Kg value to use for calculation 15 Approximate Energy Requirements Using 1443 kcal/Kg Calculation Used for Recommendations Kcal/kg Additional Notes Protein: 1.3 g/Kg AdjBW; 101 g /day. Fluids: 1 ml/Kcal, or as per MD. Nutrition Intervention Nutrition Support: Continue TF-Vital AF 1.2 [place] @ 50 ml/hr. Flush: 75 ml water Q 4 hr, or as per MD. Kcal 1,440 Protein (gm) 90 Carbohydrates (gm) 133 Fat (gm) 65 Fluid (mL) 973 Fiber (gm) 6 % RDI: 101% Kcal; 91% AA. Goal #1 Provide at least 75% of energy /protein needs through Enteral Feeding during LOS. Follow-Up By: 08/07/22 Additional Comments Continue monitoring TF tolerance, ventilation status, and BM.
--- NOTE | 2022-07-26 13:57 | Progress Note ---
Assessment and Plan 76 y/o female with acute respiratory failure secondary to altered mental status, most likely from electrolyte abnormalities seen on chemistry, found to be COVID positive. 07/26/22: Daily PSV trials. Continue tube feeds. Awaiting placement. 07/25/22: Daily PSV trials. Tube feeds going and tolerating. Need to consider at least PT consult to help with movement of lower ext. 07/24/22: Continue tube feeds. Continue daily PSV trials. Await placement, weanable but will need time. 07/23/22: Tube feeds back on. No PSV trials today but will do again tomorrow. Awaiting placement. 07/22/22: Trach and Peg hopefully today. 07/21/22: Did 6 hours of PSV yesterday. Trach and peg tomorrow. Check labs to make sure lytes are stable. 07/20/22: Trach/Peg Friday. Supportive care. 07/19/22: Appreciate Surgery. on Schedule for next week. Free T4 was normal. No current indication for stress dose steroids. Continue supportive care. 07/18/22: Family meeting: Discussed current mental state. Discussed negative work up so far to explain why mental state hasnt improved. Per family here, patient was better than what she is not but I had difficult time placing a time frame as to when that was, maybe May. It does appear that she has had a steady decline mentally and even stopped eating. There were talks prior to her admis gauri here about Peg tube placement. Discussed the idea of trach and peg placement. Also explained to family that trach does not fix any underlying reason as to why the patient's mental state is the way it is. The family wasn't aware that she was brought in for altered mental status, they were told she had bradycardia. Nonetheless, the family as a whole wish to pursue trach and peg placement. Consulted Surgery and hopeful they will see soon. Continue supportive measures and continue daily PSV trials. TSH on admit was 13, will repeat but if T4 is normal, nothing to do. She also is not behaving like myxedema coma. Guarded prognosis. 07/17/22: steroids end today. Continue daily PSV trials. Will speak with family about next steps as today is day 10 of intubation and it does not appear that conventional extubation is in the near future. 07/16/22: Continue daily PSV trials. Will speak with family tomorrow as patient is not improving enough for conventional extubation, especially with frequent apnic events. Most likely patient will need trach and peg. 07/15/22: mental status is still unchanged. Eyes open but not tracking or following commands. Also going apnic on PSV trials. Most likely will need trach and peg given mental status has not improved. 07/12/22: Negative MRI for acute infarct. Na is normal. Continue to monitor. Daily PSV trials. Has been intubated now for 5 days. 07/11/22: for MRI today. Appreciate renal help, agree with signing off. Attempt daily PSV. Guarded prognosis. 07/10: follow up MRI. Get official EEG read but no status. Continue daily PSV trials. Guarded prognosis 07/09/22: Continue supportive measures. Continue to fix Na, if no improvement in mental state with normal sodium then will pursue MRI. Picc placed today. 07/08/22: No further sedation. 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 Consider neurology consult and may need to obtain MRI. Attempt PSV trials today. needs Picc line placed for terminal block assembler access as patient is a difficult stick. Feed patient and monitor lytes. 1. Discontinue sedation 2. Wean FiO2 for sats >88% and PaO2 greater than 60 3. Agree with fluid resuscitation, patient needs free water 4. Will follow up with family to find out exactly what patient mental status was a facility CCT 31 minutes. Subjective Date of service: 07/26/22 Principal diagnosis: Hypernatremia Interval history: No acute events. Objective Vital Signs - 12hr 07/26/22 07/26/22 07/26/22 02:00 03:00 04:00 Temperature 98.7 F Pulse Rate 96 H 96 H 91 H Respiratory 13 11 L 12 Rate Blood Pressure 103/56 113/72 113/72 O2 Sat by Pulse 100 100 100 Oximetry O2 Sat by Pulse Oximetry [ Assessment] 07/26/22 07/26/22 07/26/22 04:26 04:33 05:00 Temperature Pulse Rate 80 94 H Respiratory 13 Rate Blood Pressure 105/64 125/73 O2 Sat by Pulse 100 100 Oximetry O2 Sat by Pulse 100 Oximetry [ Assessment] 07/26/22 07/26/22 07/26/22 06:00 07:01 07:15 Temperature 98.1 F Pulse Rate 95 H 83 Respiratory 12 10 L Rate Blood Pressure 123/73 94/55 O2 Sat by Pulse 100 100 Oximetry O2 Sat by Pulse Oximetry [ Assessment] 07/26/22 07/26/22 07/26/22 07:24 08:00 08:01 Temperature Pulse Rate 90 88 Respiratory 10 L 10 L Rate Blood Pressure 101/65 O2 Sat by Pulse 100 100 Oximetry O2 Sat by Pulse Oximetry [ Assessment] 07/26/22 07/26/22 07/26/22 08:25 09:00 10:00 Temperature Pulse Rate 81 88 96 H Respiratory 11 L 12 Rate Blood Pressure 101/65 111/59 118/72 O2 Sat by Pulse 100 100 100 Oximetry O2 Sat by Pulse Oximetry [ Assessment] 07/26/22 07/26/22 07/26/22 11:00 12:00 12:01 Temperature Pulse Rate 97 H 111 H 110 H Respiratory 11 L 11 L 16 Rate Blood Pressure 128/76 99/65 O2 Sat by Pulse 100 100 100 Oximetry O2 Sat by Pulse Oximetry [ Assessment] 07/26/22 07/26/22 07/26/22 12:58 13:00 13:23 Temperature 98 F Pulse Rate 111 H 109 H Respiratory 17 Rate Blood Pressure 99/65 101/71 O2 Sat by Pulse 100 100 Oximetry O2 Sat by Pulse Oximetry [ Assessment] Constitutional: comatose ENT: other (orally intubated) Neck: supple Effort: normal Ascultation: Bilateral: clear Percussion: Bilateral: not dull Cardiovascular: regular rate and rhythm Gastrointestinal: normoactive bowel sounds, soft Extremities: no cyanosis, no edema Neurologic: unable to assess CBC and BMP: 07/26/22 Unknown 07/26/22 06:00 ABG, PT/INR, D-dimer: ABG ABG pH 7.503 pH Units (7.350-7.450) H 07/20/22 05:30 ABG pCO2 42.7 mm Hg 07/20/22 05:30 ABG pO2 99.1 mm Hg (80.0-90.0) H 07/20/22 05:30 ABG O2 Saturation 97.8 % (95.0-99.0) 07/20/22 05:30 PT/INR, D-dimer PT 13.0 Sec. (12.2-14.9) 07/22/22 04:13 INR 0.87 (0.87-1.13) 07/22/22 04:13 D-Dimer 925.80 ng/mlDDU (0-234) H 07/12/22 04:00 Abnormal lab findings: Abnormal Labs 07/07/22 07/07/22 07/07/22 03:17 03:38 03:38 WBC RBC 5.43 H Hgb 18.2 H Hct 54.9 H MCV 101 H MCH 34 H RDW Plt Count 104 L [place] % (Auto) Seg Neutrophils % Seg Neutrophils # PT 15.0 H APTT 23.0 L D-Dimer ABG pH ABG pO2 ABG HCO3 ABG O2 Saturation ABG Base Excess ABG Hemoglobin Oxyhemoglobin Sodium Potassium Chloride Carbon Dioxide BUN Creatinine Glucose POC Glucose Lactic Acid Uric Acid Calcium Phosphorus Magnesium Ferritin Total Bilirubin AST Lactate Dehydrogenase Total Creatine Kinase C-Reactive Protein Total Protein Albumin TSH Free T3 Index Urine WBC (Auto) 7.0 H Urine Creatinine Salicylates Acetaminophen Valproic Acid SARS-CoV-2 (PCR) 07/07/22 07/07/22 07/07/22 03:38 03:38 03:38 WBC RBC Hgb Hct MCV MCH RDW Plt Count [place] % (Auto) Seg Neutrophils % Seg Neutrophils # PT APTT D-Dimer ABG pH ABG pO2 ABG HCO3 ABG O2 Saturation ABG Base Excess ABG Hemoglobin Oxyhemoglobin Sodium Potassium Chloride Carbon Dioxide BUN Creatinine Glucose POC Glucose Lactic Acid Uric Acid Calcium Phosphorus Magnesium 3.30 H Ferritin Total Bilirubin AST Lactate Dehydrogenase Total Creatine Kinase 1826 H C-Reactive Protein Total Protein Albumin TSH Free T3 Index Urine WBC (Auto) Urine Creatinine Salicylates < 0.3 L Acetaminophen 5.0 L Valproic Acid 7.0 L SARS-CoV-2 (PCR) 07/07/22 07/07/22 07/07/22 04:17 04:17 04:17 WBC RBC Hgb Hct MCV MCH RDW Plt Count [place] % (Auto) Seg Neutrophils % Seg Neutrophils # PT APTT D-Dimer ABG pH ABG pO2 ABG HCO3 ABG O2 Saturation ABG Base Excess ABG Hemoglobin Oxyhemoglobin Sodium 168 H* Potassium 3.2 L Chloride 122.2 H Carbon Dioxide BUN 52 H Creatinine Glucose 158 H POC Glucose Lactic Acid 3.50 H* Uric Acid Calcium 10.9 H Phosphorus Magnesium Ferritin Total Bilirubin 1.40 H AST 47 H Lactate Dehydrogenase Total Creatine Kinase C-Reactive Protein Total Protein Albumin TSH 12.790 H Free T3 Index Urine WBC (Auto) Urine Creatinine Salicylates Acetaminophen Valproic Acid SARS-CoV-2 (PCR) 07/07/22 07/07/22 07/07/22 04:17 07:43 09:35 WBC RBC Hgb Hct MCV MCH RDW Plt Count [place] % (Auto) Seg Neutrophils % Seg Neutrophils # PT APTT D-Dimer ABG pH ABG pO2 377.3 H ABG HCO3 ABG O2 Saturation 99.6 H ABG Base Excess -2.5 L ABG Hemoglobin Oxyhemoglobin Sodium Potassium Chloride Carbon Dioxide BUN Creatinine Glucose POC Glucose Lactic Acid 6.30 H* Uric Acid 13.5 H Calcium Phosphorus Magnesium Ferritin Total Bilirubin AST Lactate Dehydrogenase Total Creatine Kinase C-Reactive Protein Total Protein Albumin TSH Free T3 Index Urine WBC (Auto) Urine Creatinine Salicylates Acetaminophen Valproic Acid SARS-CoV-2 (PCR) 07/07/22 07/07/22 07/07/22 15:00 16:00 16:00 WBC RBC Hgb Hct MCV MCH RDW Plt Count [place] % (Auto) Seg Neutrophils % Seg Neutrophils # PT APTT D-Dimer ABG pH ABG pO2 ABG HCO3 ABG O2 Saturation ABG Base Excess ABG Hemoglobin Oxyhemoglobin Sodium 166 H* Potassium Chloride 124.8 H Carbon Dioxide 20 L BUN 41 H Creatinine Glucose 157 H POC Glucose Lactic Acid 7.00 H* Uric Acid Calcium Phosphorus Magnesium Ferritin Total Bilirubin AST 81 H Lactate Dehydrogenase Total Creatine Kinase C-Reactive Protein Total Protein Albumin TSH Free T3 Index Urine WBC (Auto) Urine Creatinine Salicylates Acetaminophen Valproic Acid SARS-CoV-2 (PCR) Positive A 07/07/22 07/07/22 07/07/22 16:45 23:42 23:42 WBC RBC Hgb Hct MCV MCH RDW Plt Count [place] % (Auto) Seg Neutrophils % Seg Neutrophils # PT APTT D-Dimer ABG pH ABG pO2 ABG HCO3 ABG O2 Saturation ABG Base Excess ABG Hemoglobin Oxyhemoglobin Sodium 165 H* Potassium 3.0 L Chloride 122.8 H Carbon Dioxide BUN 38 H Creatinine Glucose 232 H POC Glucose Lactic Acid 5.60 H* Uric Acid Calcium Phosphorus Magnesium Ferritin Total Bilirubin AST Lactate Dehydrogenase Total Creatine Kinase C-Reactive Protein Total Protein Albumin TSH Free T3 Index Urine WBC (Auto) Urine Creatinine 92.9 H Salicylates Acetaminophen Valproic Acid SARS-CoV-2 (PCR) 07/07/22 07/07/22 07/08/22 Unknown Unknown 05:30 WBC RBC Hgb Hct MCV MCH RDW Plt Count [place] % (Auto) Seg Neutrophils % Seg Neutrophils # PT APTT D-Dimer ABG pH 7.553 H 7.473 H ABG pO2 61.7 L 121.7 H ABG HCO3 ABG O2 Saturation 94.7 L ABG Base Excess 4.3 H ABG Hemoglobin 18.0 H Oxyhemoglobin 93.1 L Sodium 163 H* Potassium 6.3 H* D Chloride 123.7 H Carbon Dioxide BUN 42 H Creatinine Glucose 169 H POC Glucose Lactic Acid Uric Acid Calcium Phosphorus Magnesium Ferritin Total Bilirubin AST Lactate Dehydrogenase Total Creatine Kinase C-Reactive Protein Total Protein Albumin TSH Free T3 Index Urine WBC (Auto) Urine Creatinine Salicylates Acetaminophen Valproic Acid SARS-CoV-2 (PCR) 07/08/22 07/08/22 07/08/22 05:36 11:21 14:54 WBC 11.1 H RBC Hgb Hct MCV 101 H MCH 33 H RDW Plt Count 69 L [place] % (Auto) Seg Neutrophils % 82.0 H Seg Neutrophils # 9.1 H PT APTT D-Dimer ABG pH ABG pO2 ABG HCO3 ABG O2 Saturation ABG Base Excess ABG Hemoglobin Oxyhemoglobin Sodium Potassium Chloride Carbon Dioxide BUN Creatinine Glucose POC Glucose 174 H 148 H Lactic Acid Uric Acid Calcium Phosphorus Magnesium Ferritin Total Bilirubin AST Lactate Dehydrogenase Total Creatine Kinase C-Reactive Protein Total Protein Albumin TSH Free T3 Index Urine WBC (Auto) Urine Creatinine Salicylates Acetaminophen Valproic Acid SARS-CoV-2 (PCR) 07/08/22 07/08/22 07/08/22 14:54 14:54 14:54 WBC RBC Hgb Hct MCV MCH RDW Plt Count [place] % (Auto) Seg Neutrophils % Seg Neutrophils # PT APTT D-Dimer ABG pH ABG pO2 ABG HCO3 ABG O2 Saturation ABG Base Excess ABG Hemoglobin Oxyhemoglobin Sodium 163 H* Potassium 2.9 L* Chloride 123.7 H Carbon Dioxide BUN 30 H Creatinine Glucose 161 H POC Glucose Lactic Acid 6.10 H* Uric Acid Calcium Phosphorus Magnesium Ferritin Total Bilirubin AST 69 H Lactate Dehydrogenase Total Creatine Kinase 2335 H C-Reactive Protein Total Protein 5.6 L D Albumin 3.1 L TSH Free T3 Index Urine WBC (Auto) Urine Creatinine Salicylates Acetaminophen Valproic Acid SARS-CoV-2 (PCR) 07/08/22 07/08/22 07/08/22 14:54 14:54 14:54 WBC RBC Hgb Hct MCV MCH RDW Plt Count [place] % (Auto) Seg Neutrophils % Seg Neutrophils # PT APTT D-Dimer 499.72 H ABG pH ABG pO2 ABG HCO3 ABG O2 Saturation ABG Base Excess ABG Hemoglobin Oxyhemoglobin Sodium Potassium Chloride Carbon Dioxide BUN Creatinine Glucose POC Glucose Lactic Acid Uric Acid Calcium Phosphorus Magnesium Ferritin 722.1 H Total Bilirubin AST Lactate Dehydrogenase 455 H Total Creatine Kinase C-Reactive Protein 1.60 H Total Protein Albumin TSH Free T3 Index Urine WBC (Auto) Urine Creatinine Salicylates Acetaminophen Valproic Acid SARS-CoV-2 (PCR) 07/08/22 07/08/22 07/09/22 19:13 19:53 00:09 WBC RBC Hgb Hct MCV MCH RDW Plt Count [place] % (Auto) Seg Neutrophils % Seg Neutrophils # PT APTT D-Dimer ABG pH ABG pO2 ABG HCO3 ABG O2 Saturation ABG Base Excess ABG Hemoglobin Oxyhemoglobin Sodium 160 H Potassium 3.5 L D Chloride 122.0 H Carbon Dioxide 20 L BUN 28 H Creatinine Glucose 151 H POC Glucose 138 H Lactic Acid 5.70 H* Uric Acid Calcium Phosphorus Magnesium Ferritin Total Bilirubin AST Lactate Dehydrogenase Total Creatine Kinase C-Reactive Protein Total Protein Albumin TSH Free T3 Index Urine WBC (Auto) Urine Creatinine Salicylates Acetaminophen Valproic Acid SARS-CoV-2 (PCR) 07/09/22 07/09/22 07/09/22 00:45 03:21 03:21 WBC RBC Hgb Hct MCV MCH RDW Plt Count [place] % (Auto) Seg Neutrophils % Seg Neutrophils # PT APTT D-Dimer ABG pH ABG pO2 ABG HCO3 ABG O2 Saturation ABG Base Excess ABG Hemoglobin Oxyhemoglobin Sodium 158 H 157 H Potassium Chloride 124.2 H 125.0 H Carbon Dioxide 20 L 20 L BUN 25 H 24 H Creatinine Glucose 147 H 169 H POC Glucose Lactic Acid 4.70 H* Uric Acid Calcium Phosphorus Magnesium Ferritin Total Bilirubin AST 81 H Lactate Dehydrogenase Total Creatine Kinase C-Reactive Protein Total Protein 5.7 L Albumin 2.8 L TSH Free T3 Index Urine WBC (Auto) Urine Creatinine Salicylates Acetaminophen Valproic Acid SARS-CoV-2 (PCR) 07/09/22 07/09/22 07/09/22 04:40 05:35 08:14 WBC RBC Hgb Hct MCV 102 H MCH 33 H RDW Plt Count 74 L [place] % (Auto) Seg Neutrophils % Seg Neutrophils # PT APTT D-Dimer ABG pH ABG pO2 172.1 H ABG HCO3 ABG O2 Saturation 99.1 H ABG Base Excess -2.8 L ABG Hemoglobin Oxyhemoglobin Sodium Potassium Chloride Carbon Dioxide BUN Creatinine Glucose POC Glucose 108 H Lactic Acid Uric Acid Calcium Phosphorus Magnesium Ferritin Total Bilirubin AST Lactate Dehydrogenase Total Creatine Kinase C-Reactive Protein Total Protein Albumin TSH Free T3 Index Urine WBC (Auto) Urine Creatinine Salicylates Acetaminophen Valproic Acid SARS-CoV-2 (PCR) 07/09/22 07/09/22 07/09/22 11:16 11:27 16:20 WBC RBC Hgb Hct MCV MCH RDW Plt Count [place] % (Auto) Seg Neutrophils % Seg Neutrophils # PT APTT D-Dimer ABG pH ABG pO2 ABG HCO3 ABG O2 Saturation ABG Base Excess ABG Hemoglobin Oxyhemoglobin Sodium 155 H Potassium Chloride 121.3 H Carbon Dioxide BUN 21 H Creatinine Glucose 170 H POC Glucose 173 H 190 H Lactic Acid Uric Acid Calcium Phosphorus Magnesium Ferritin Total Bilirubin AST Lactate Dehydrogenase Total Creatine Kinase C-Reactive Protein Total Protein Albumin TSH Free T3 Index Urine WBC (Auto) Urine Creatinine Salicylates Acetaminophen Valproic Acid SARS-CoV-2 (PCR) 07/09/22 07/10/22 07/10/22 17:16 00:04 04:21 WBC RBC Hgb Hct MCV MCH RDW Plt Count [place] % (Auto) Seg Neutrophils % Seg Neutrophils # PT APTT D-Dimer ABG pH ABG pO2 ABG HCO3 ABG O2 Saturation ABG Base Excess ABG Hemoglobin Oxyhemoglobin Sodium 149 H 150 H Potassium Chloride 115.6 H 115.0 H Carbon Dioxide BUN 18 H Creatinine 0.5 L Glucose 207 H 178 H POC Glucose 180 H Lactic Acid Uric Acid Calcium 7.9 L Phosphorus Magnesium Ferritin Total Bilirubin AST 89 H Lactate Dehydrogenase 431 H Total Creatine Kinase C-Reactive Protein Total Protein 4.9 L Albumin 2.5 L TSH Free T3 Index Urine WBC (Auto) Urine Creatinine Salicylates Acetaminophen Valproic Acid SARS-CoV-2 (PCR) 08/31/22 08/31/22 08/31/22 04:21 04:21 04:21 WBC 11.8 H RBC 3.52 L Hgb Hct MCV 99 H MCH 33 H RDW Plt Count 67 L [place] % (Auto) Seg Neutrophils % Seg Neutrophils # PT APTT D-Dimer 585.71 H ABG pH ABG pO2 ABG HCO3 ABG O2 Saturation ABG Base Excess ABG Hemoglobin Oxyhemoglobin Sodium Potassium Chloride Carbon Dioxide BUN Creatinine Glucose POC Glucose Lactic Acid Uric Acid Calcium Phosphorus Magnesium Ferritin 631.3 H Total Bilirubin AST Lactate Dehydrogenase Total Creatine Kinase C-Reactive Protein Total Protein Albumin TSH Free T3 Index Urine WBC (Auto) Urine Creatinine Salicylates Acetaminophen Valproic Acid SARS-CoV-2 (PCR) 07/10/22 07/10/22 07/10/22 04:21 04:55 05:26 WBC RBC Hgb Hct MCV MCH RDW Plt Count [place] % (Auto) Seg Neutrophils % Seg Neutrophils # PT APTT D-Dimer ABG pH ABG pO2 76.8 L ABG HCO3 ABG O2 Saturation ABG Base Excess ABG Hemoglobin 10.4 L Oxyhemoglobin 94.5 L Sodium Potassium Chloride Carbon Dioxide BUN Creatinine Glucose POC Glucose 147 H Lactic Acid 2.50 H* Uric Acid Calcium Phosphorus Magnesium Ferritin Total Bilirubin AST Lactate Dehydrogenase Total Creatine Kinase C-Reactive Protein Total Protein Albumin TSH Free T3 Index Urine WBC (Auto) Urine Creatinine Salicylates Acetaminophen Valproic Acid SARS-CoV-2 (PCR) 07/10/22 07/10/22 07/10/22 08:24 11:31 12:53 WBC RBC Hgb Hct MCV MCH RDW Plt Count [place] % (Auto) Seg Neutrophils % Seg Neutrophils # PT APTT D-Dimer ABG pH ABG pO2 ABG HCO3 ABG O2 Saturation ABG Base Excess ABG Hemoglobin Oxyhemoglobin Sodium Potassium Chloride 110.9 H Carbon Dioxide BUN Creatinine 0.5 L Glucose 200 H POC Glucose 166 H Lactic Acid 2.10 H* Uric Acid Calcium 8.3 L Phosphorus Magnesium Ferritin Total Bilirubin AST Lactate Dehydrogenase Total Creatine Kinase C-Reactive Protein Total Protein Albumin TSH Free T3 Index Urine WBC (Auto) Urine Creatinine Salicylates Acetaminophen Valproic Acid SARS-CoV-2 (PCR) 07/10/22 07/10/22 07/10/22 17:37 18:53 23:30 WBC RBC Hgb Hct MCV MCH RDW Plt Count [place] % (Auto) Seg Neutrophils % Seg Neutrophils # PT APTT D-Dimer ABG pH ABG pO2 ABG HCO3 ABG O2 Saturation ABG Base Excess ABG Hemoglobin Oxyhemoglobin Sodium Potassium Chloride 109.5 H 110.2 H Carbon Dioxide BUN Creatinine 0.5 L 0.5 L Glucose 243 H 208 H POC Glucose 237 H Lactic Acid Uric Acid Calcium 8.1 L 8.1 L Phosphorus Magnesium Ferritin Total Bilirubin AST Lactate Dehydrogenase Total Creatine Kinase C-Reactive Protein Total Protein Albumin TSH Free T3 Index Urine WBC (Auto) Urine Creatinine Salicylates Acetaminophen Valproic Acid SARS-CoV-2 (PCR) 07/10/22 07/11/22 07/11/22 23:57 04:00 04:15 WBC 11.2 H RBC Hgb Hct MCV 99 H MCH RDW Plt Count 73 L [place] % (Auto) Seg Neutrophils % Seg Neutrophils # PT APTT D-Dimer ABG pH ABG pO2 107.4 H ABG HCO3 ABG O2 Saturation ABG Base Excess ABG Hemoglobin Oxyhemoglobin Sodium Potassium Chloride Carbon Dioxide BUN Creatinine Glucose POC Glucose 195 H Lactic Acid Uric Acid Calcium Phosphorus Magnesium Ferritin Total Bilirubin AST Lactate Dehydrogenase Total Creatine Kinase C-Reactive Protein Total Protein Albumin TSH Free T3 Index Urine WBC (Auto) Urine Creatinine Salicylates Acetaminophen Valproic Acid SARS-CoV-2 (PCR) 07/11/22 07/11/22 07/11/22 05:40 05:40 06:06 WBC RBC Hgb Hct MCV MCH RDW Plt Count [place] % (Auto) Seg Neutrophils % Seg Neutrophils # PT APTT D-Dimer ABG pH ABG pO2 ABG HCO3 ABG O2 Saturation ABG Base Excess ABG Hemoglobin Oxyhemoglobin Sodium Potassium Chloride 109.8 H Carbon Dioxide BUN Creatinine 0.5 L Glucose 160 H POC Glucose 145 H Lactic Acid Uric Acid Calcium 8.3 L Phosphorus Magnesium Ferritin Total Bilirubin AST Lactate Dehydrogenase Total Creatine Kinase 1745 H C-Reactive Protein Total Protein Albumin TSH Free T3 Index Urine WBC (Auto) Urine Creatinine Salicylates Acetaminophen Valproic Acid SARS-CoV-2 (PCR) 07/11/22 07/11/22 07/11/22 11:55 11:59 17:44 WBC RBC Hgb Hct MCV MCH RDW Plt Count [place] % (Auto) Seg Neutrophils % Seg Neutrophils # PT APTT D-Dimer ABG pH ABG pO2 ABG HCO3 ABG O2 Saturation ABG Base Excess ABG Hemoglobin Oxyhemoglobin Sodium Potassium Chloride 107.8 H Carbon Dioxide BUN Creatinine 0.5 L Glucose 150 H POC Glucose 150 H 182 H Lactic Acid Uric Acid Calcium 8.2 L Phosphorus Magnesium Ferritin Total Bilirubin AST Lactate Dehydrogenase Total Creatine Kinase C-Reactive Protein Total Protein Albumin TSH Free T3 Index Urine WBC (Auto) Urine Creatinine Salicylates Acetaminophen Valproic Acid SARS-CoV-2 (PCR) 07/11/22 07/12/22 07/12/22 17:50 00:10 00:12 WBC RBC Hgb Hct MCV MCH RDW Plt Count [place] % (Auto) Seg Neutrophils % Seg Neutrophils # PT APTT D-Dimer ABG pH ABG pO2 ABG HCO3 ABG O2 Saturation ABG Base Excess ABG Hemoglobin Oxyhemoglobin Sodium Potassium Chloride 108.4 H Carbon Dioxide BUN Creatinine 0.5 L 0.4 L Glucose 191 H 163 H POC Glucose 154 H Lactic Acid Uric Acid Calcium 8.2 L 7.9 L Phosphorus Magnesium Ferritin Total Bilirubin AST Lactate Dehydrogenase Total Creatine Kinase C-Reactive Protein Total Protein Albumin TSH Free T3 Index Urine WBC (Auto) Urine Creatinine Salicylates Acetaminophen Valproic Acid SARS-CoV-2 (PCR) 07/12/22 07/12/22 07/12/22 04:00 04:00 04:00 WBC RBC Hgb Hct MCV MCH RDW Plt Count [place] % (Auto) Seg Neutrophils % Seg Neutrophils # PT APTT D-Dimer 925.80 H ABG pH ABG pO2 ABG HCO3 ABG O2 Saturation ABG Base Excess ABG Hemoglobin Oxyhemoglobin Sodium Potassium Chloride Carbon Dioxide BUN Creatinine Glucose POC Glucose Lactic Acid Uric Acid Calcium Phosphorus Magnesium Ferritin 519.5 H Total Bilirubin AST Lactate Dehydrogenase 444 H Total Creatine Kinase C-Reactive Protein Total Protein Albumin TSH Free T3 Index Urine WBC (Auto) Urine Creatinine Salicylates Acetaminophen Valproic Acid SARS-CoV-2 (PCR) 07/12/22 07/12/22 07/12/22 04:00 05:00 05:03 WBC 11.7 H RBC 3.33 L Hgb Hct MCV 99 H MCH 33 H RDW Plt Count 68 L [place] % (Auto) Seg Neutrophils % Seg Neutrophils # PT APTT D-Dimer ABG pH 7.453 H ABG pO2 107.9 H ABG HCO3 27.9 H ABG O2 Saturation ABG Base Excess 3.7 H ABG Hemoglobin 10.9 L Oxyhemoglobin Sodium Potassium Chloride Carbon Dioxide BUN Creatinine Glucose POC Glucose 174 H Lactic Acid Uric Acid Calcium Phosphorus Magnesium Ferritin Total Bilirubin AST Lactate Dehydrogenase Total Creatine Kinase C-Reactive Protein Total Protein Albumin TSH Free T3 Index Urine WBC (Auto) Urine Creatinine Salicylates Acetaminophen Valproic Acid SARS-CoV-2 (PCR) 07/12/22 07/12/22 07/12/22 12:15 17:18 23:14 WBC RBC Hgb Hct MCV MCH RDW Plt Count [place] % (Auto) Seg Neutrophils % Seg Neutrophils # PT APTT D-Dimer ABG pH ABG pO2 ABG HCO3 ABG O2 Saturation ABG Base Excess ABG Hemoglobin Oxyhemoglobin Sodium Potassium Chloride Carbon Dioxide BUN Creatinine Glucose POC Glucose 154 H 154 H 167 H Lactic Acid Uric Acid Calcium Phosphorus Magnesium Ferritin Total Bilirubin AST Lactate Dehydrogenase Total Creatine Kinase C-Reactive Protein Total Protein Albumin TSH Free T3 Index Urine WBC (Auto) Urine Creatinine Salicylates Acetaminophen Valproic Acid SARS-CoV-2 (PCR) 07/13/22 07/13/22 07/13/22 04:00 04:10 05:14 WBC RBC 3.17 L Hgb Hct MCV 98 H MCH 34 H RDW Plt Count 75 L [place] % (Auto) Seg Neutrophils % Seg Neutrophils # PT APTT D-Dimer ABG pH ABG pO2 ABG HCO3 ABG O2 Saturation ABG Base Excess ABG Hemoglobin Oxyhemoglobin Sodium Potassium Chloride Carbon Dioxide BUN Creatinine 0.4 L Glucose 136 H POC Glucose 140 H Lactic Acid Uric Acid Calcium Phosphorus Magnesium Ferritin Total Bilirubin AST Lactate Dehydrogenase Total Creatine Kinase C-Reactive Protein Total Protein Albumin TSH Free T3 Index Urine WBC (Auto) Urine Creatinine Salicylates Acetaminophen Valproic Acid SARS-CoV-2 (PCR) 07/13/22 07/13/22 07/13/22 12:03 14:25 17:19 WBC RBC Hgb Hct MCV MCH RDW Plt Count [place] % (Auto) Seg Neutrophils % Seg Neutrophils # PT APTT D-Dimer ABG pH 7.478 H ABG pO2 118.1 H ABG HCO3 28.2 H ABG O2 Saturation ABG Base Excess 4.5 H ABG Hemoglobin Oxyhemoglobin Sodium Potassium Chloride Carbon Dioxide BUN Creatinine Glucose POC Glucose 193 H 189 H Lactic Acid Uric Acid Calcium Phosphorus Magnesium Ferritin Total Bilirubin AST Lactate Dehydrogenase Total Creatine Kinase C-Reactive Protein Total Protein Albumin TSH Free T3 Index Urine WBC (Auto) Urine Creatinine Salicylates Acetaminophen Valproic Acid SARS-CoV-2 (PCR) 07/13/22 07/13/22 07/14/22 23:52 Unknown 06:18 WBC RBC Hgb Hct MCV MCH RDW Plt Count [place] % (Auto) Seg Neutrophils % Seg Neutrophils # PT APTT D-Dimer ABG pH 7.465 H ABG pO2 128.8 H ABG HCO3 29.0 H ABG O2 Saturation ABG Base Excess 4.9 H ABG Hemoglobin 10.3 L Oxyhemoglobin Sodium Potassium Chloride Carbon Dioxide BUN Creatinine Glucose POC Glucose 174 H 167 H Lactic Acid Uric Acid Calcium Phosphorus Magnesium Ferritin Total Bilirubin AST Lactate Dehydrogenase Total Creatine Kinase C-Reactive Protein Total Protein Albumin TSH Free T3 Index Urine WBC (Auto) Urine Creatinine Salicylates Acetaminophen Valproic Acid SARS-CoV-2 (PCR) 07/14/22 07/14/22 07/15/22 11:34 17:20 00:25 WBC RBC Hgb Hct MCV MCH RDW Plt Count [place] % (Auto) Seg Neutrophils % Seg Neutrophils # PT APTT D-Dimer ABG pH ABG pO2 ABG HCO3 ABG O2 Saturation ABG Base Excess ABG Hemoglobin Oxyhemoglobin Sodium Potassium Chloride Carbon Dioxide BUN Creatinine Glucose POC Glucose 187 H 221 H 172 H Lactic Acid Uric Acid Calcium Phosphorus Magnesium Ferritin Total Bilirubin AST Lactate Dehydrogenase Total Creatine Kinase C-Reactive Protein Total Protein Albumin TSH Free T3 Index Urine WBC (Auto) Urine Creatinine Salicylates Acetaminophen Valproic Acid SARS-CoV-2 (PCR) 07/15/22 07/15/22 07/15/22 04:00 04:00 05:49 WBC 11.4 H RBC 3.13 L Hgb Hct MCV 98 H MCH 33 H RDW Plt Count 98 L [place] % (Auto) Seg Neutrophils % Seg Neutrophils # PT APTT D-Dimer ABG pH ABG pO2 ABG HCO3 ABG O2 Saturation ABG Base Excess ABG Hemoglobin Oxyhemoglobin Sodium Potassium Chloride Carbon Dioxide 34 H BUN Creatinine 0.4 L Glucose 126 H POC Glucose 143 H Lactic Acid Uric Acid Calcium Phosphorus Magnesium Ferritin Total Bilirubin AST Lactate Dehydrogenase Total Creatine Kinase C-Reactive Protein Total Protein Albumin TSH Free T3 Index Urine WBC (Auto) Urine Creatinine Salicylates Acetaminophen Valproic Acid SARS-CoV-2 (PCR) 07/15/22 07/15/22 07/16/22 11:19 16:16 00:19 WBC RBC Hgb Hct MCV MCH RDW Plt Count [place] % (Auto) Seg Neutrophils % Seg Neutrophils # PT APTT D-Dimer ABG pH ABG pO2 ABG HCO3 ABG O2 Saturation ABG Base Excess ABG Hemoglobin Oxyhemoglobin Sodium Potassium Chloride Carbon Dioxide BUN Creatinine Glucose POC Glucose 158 H 227 H 153 H Lactic Acid Uric Acid Calcium Phosphorus Magnesium Ferritin Total Bilirubin AST Lactate Dehydrogenase Total Creatine Kinase C-Reactive Protein Total Protein Albumin TSH Free T3 Index Urine WBC (Auto) Urine Creatinine Salicylates Acetaminophen Valproic Acid SARS-CoV-2 (PCR) 07/16/22 07/16/22 07/16/22 04:20 04:20 11:28 WBC RBC 3.16 L Hgb Hct MCV 99 H MCH 33 H RDW Plt Count 101 L [place] % (Auto) Seg Neutrophils % Seg Neutrophils # PT APTT D-Dimer ABG pH ABG pO2 ABG HCO3 ABG O2 Saturation ABG Base Excess ABG Hemoglobin Oxyhemoglobin Sodium Potassium Chloride Carbon Dioxide 36 H BUN 18 H Creatinine 0.4 L Glucose 139 H POC Glucose 158 H Lactic Acid Uric Acid Calcium Phosphorus Magnesium Ferritin Total Bilirubin AST Lactate Dehydrogenase Total Creatine Kinase C-Reactive Protein Total Protein Albumin TSH Free T3 Index Urine WBC (Auto) Urine Creatinine Salicylates Acetaminophen Valproic Acid SARS-CoV-2 (PCR) 07/16/22 07/17/22 07/17/22 16:30 00:07 05:46 WBC RBC Hgb Hct MCV MCH RDW Plt Count [place] % (Auto) Seg Neutrophils % Seg Neutrophils # PT APTT D-Dimer ABG pH ABG pO2 ABG HCO3 ABG O2 Saturation ABG Base Excess ABG Hemoglobin Oxyhemoglobin Sodium Potassium Chloride Carbon Dioxide BUN Creatinine Glucose POC Glucose 201 H 139 H 123 H Lactic Acid Uric Acid Calcium Phosphorus Magnesium Ferritin Total Bilirubin AST Lactate Dehydrogenase Total Creatine Kinase C-Reactive Protein Total Protein Albumin TSH Free T3 Index Urine WBC (Auto) Urine Creatinine Salicylates Acetaminophen Valproic Acid SARS-CoV-2 (PCR) 07/17/22 07/17/22 07/17/22 13:30 17:51 23:49 WBC RBC Hgb Hct MCV MCH RDW Plt Count [place] % (Auto) Seg Neutrophils % Seg Neutrophils # PT APTT D-Dimer ABG pH ABG pO2 ABG HCO3 ABG O2 Saturation ABG Base Excess ABG Hemoglobin Oxyhemoglobin Sodium Potassium Chloride Carbon Dioxide BUN Creatinine Glucose POC Glucose 185 H 219 H 133 H Lactic Acid Uric Acid Calcium Phosphorus Magnesium Ferritin Total Bilirubin AST Lactate Dehydrogenase Total Creatine Kinase C-Reactive Protein Total Protein Albumin TSH Free T3 Index Urine WBC (Auto) Urine Creatinine Salicylates Acetaminophen Valproic Acid SARS-CoV-2 (PCR) 07/18/22 07/18/22 07/18/22 04:00 04:00 04:00 WBC 12.2 H RBC 3.34 L Hgb Hct MCV 100 H MCH 33 H RDW Plt Count 113 L [place] % (Auto) Seg Neutrophils % 77.3 H Seg Neutrophils # 9.4 H PT APTT D-Dimer ABG pH 7.508 H ABG pO2 115.9 H ABG HCO3 33.4 H ABG O2 Saturation ABG Base Excess 9.4 H ABG Hemoglobin 11.7 L Oxyhemoglobin Sodium Potassium Chloride Carbon Dioxide 35 H BUN Creatinine 0.4 L Glucose 130 H POC Glucose Lactic Acid Uric Acid Calcium Phosphorus Magnesium Ferritin Total Bilirubin AST Lactate Dehydrogenase Total Creatine Kinase C-Reactive Protein Total Protein Albumin TSH Free T3 Index Urine WBC (Auto) Urine Creatinine Salicylates Acetaminophen Valproic Acid SARS-CoV-2 (PCR) 07/18/22 07/18/22 07/18/22 04:42 12:31 12:31 WBC RBC Hgb Hct MCV MCH RDW Plt Count [place] % (Auto) Seg Neutrophils % Seg Neutrophils # PT APTT D-Dimer ABG pH ABG pO2 ABG HCO3 ABG O2 Saturation ABG Base Excess ABG Hemoglobin Oxyhemoglobin Sodium Potassium Chloride Carbon Dioxide BUN Creatinine Glucose POC Glucose 134 H Lactic Acid Uric Acid Calcium Phosphorus Magnesium Ferritin Total Bilirubin AST Lactate Dehydrogenase Total Creatine Kinase C-Reactive Protein Total Protein Albumin TSH 9.750 H Free T3 Index 1.7 L Urine WBC (Auto) Urine Creatinine Salicylates Acetaminophen Valproic Acid SARS-CoV-2 (PCR) 07/18/22 07/18/22 07/19/22 12:33 17:39 00:43 WBC RBC Hgb Hct MCV MCH RDW Plt Count [place] % (Auto) Seg Neutrophils % Seg Neutrophils # PT APTT D-Dimer ABG pH ABG pO2 ABG HCO3 ABG O2 Saturation ABG Base Excess ABG Hemoglobin Oxyhemoglobin Sodium Potassium Chloride Carbon Dioxide BUN Creatinine Glucose POC Glucose 172 H 164 H 132 H Lactic Acid Uric Acid Calcium Phosphorus Magnesium Ferritin Total Bilirubin AST Lactate Dehydrogenase Total Creatine Kinase C-Reactive Protein Total Protein Albumin TSH Free T3 Index Urine WBC (Auto) Urine Creatinine Salicylates Acetaminophen Valproic Acid SARS-CoV-2 (PCR) 07/19/22 07/19/22 07/19/22 05:08 12:30 17:42 WBC RBC Hgb Hct MCV MCH RDW Plt Count [place] % (Auto) Seg Neutrophils % Seg Neutrophils # PT APTT D-Dimer ABG pH ABG pO2 ABG HCO3 ABG O2 Saturation ABG Base Excess ABG Hemoglobin Oxyhemoglobin Sodium Potassium Chloride Carbon Dioxide BUN Creatinine Glucose POC Glucose 143 H 159 H 139 H Lactic Acid Uric Acid Calcium Phosphorus Magnesium Ferritin Total Bilirubin AST Lactate Dehydrogenase Total Creatine Kinase C-Reactive Protein Total Protein Albumin TSH Free T3 Index Urine WBC (Auto) Urine Creatinine Salicylates Acetaminophen Valproic Acid SARS-CoV-2 (PCR) 07/19/22 07/20/22 07/20/22 23:26 05:30 06:03 WBC RBC Hgb Hct MCV MCH RDW Plt Count [place] % (Auto) Seg Neutrophils % Seg Neutrophils # PT APTT D-Dimer ABG pH 7.503 H ABG pO2 99.1 H ABG HCO3 32.8 H ABG O2 Saturation ABG Base Excess 8.8 H ABG Hemoglobin 9.7 L Oxyhemoglobin Sodium Potassium Chloride Carbon Dioxide BUN Creatinine Glucose POC Glucose 144 H 146 H Lactic Acid Uric Acid Calcium Phosphorus Magnesium Ferritin Total Bilirubin AST Lactate Dehydrogenase Total Creatine Kinase C-Reactive Protein Total Protein Albumin TSH Free T3 Index Urine WBC (Auto) Urine Creatinine Salicylates Acetaminophen Valproic Acid SARS-CoV-2 (PCR) 07/20/22 07/20/22 07/20/22 12:15 17:24 23:44 WBC RBC Hgb Hct MCV MCH RDW Plt Count [place] % (Auto) Seg Neutrophils % Seg Neutrophils # PT APTT D-Dimer ABG pH ABG pO2 ABG HCO3 ABG O2 Saturation ABG Base Excess ABG Hemoglobin Oxyhemoglobin Sodium Potassium Chloride Carbon Dioxide BUN Creatinine Glucose POC Glucose 138 H 135 H 131 H Lactic Acid Uric Acid Calcium Phosphorus Magnesium Ferritin Total Bilirubin AST Lactate Dehydrogenase Total Creatine Kinase C-Reactive Protein Total Protein Albumin TSH Free T3 Index Urine WBC (Auto) Urine Creatinine Salicylates Acetaminophen Valproic Acid SARS-CoV-2 (PCR) 07/21/22 07/21/22 07/21/22 04:00 04:00 05:13 WBC RBC 2.92 L Hgb 9.6 L Hct 29.0 L MCV 99 H MCH 33 H RDW 15.6 H Plt Count 136 L [place] % (Auto) Seg Neutrophils % Seg Neutrophils # PT APTT D-Dimer ABG pH ABG pO2 ABG HCO3 ABG O2 Saturation ABG Base Excess ABG Hemoglobin Oxyhemoglobin Sodium Potassium Chloride Carbon Dioxide 32 H BUN Creatinine 0.3 L Glucose 133 H POC Glucose 142 H Lactic Acid Uric Acid Calcium 8.3 L Phosphorus Magnesium Ferritin Total Bilirubin AST Lactate Dehydrogenase Total Creatine Kinase C-Reactive Protein Total Protein Albumin TSH Free T3 Index Urine WBC (Auto) Urine Creatinine Salicylates Acetaminophen Valproic Acid SARS-CoV-2 (PCR) 07/21/22 07/21/22 07/21/22 06:16 11:48 16:08 WBC RBC Hgb Hct MCV MCH RDW Plt Count [place] % (Auto) Seg Neutrophils % Seg Neutrophils # PT APTT D-Dimer ABG pH ABG pO2 ABG HCO3 ABG O2 Saturation ABG Base Excess ABG Hemoglobin Oxyhemoglobin Sodium Potassium Chloride Carbon Dioxide BUN Creatinine Glucose POC Glucose 149 H 124 H 139 H Lactic Acid Uric Acid Calcium Phosphorus Magnesium Ferritin Total Bilirubin AST Lactate Dehydrogenase Total Creatine Kinase C-Reactive Protein Total Protein Albumin TSH Free T3 Index Urine WBC (Auto) Urine Creatinine Salicylates Acetaminophen Valproic Acid SARS-CoV-2 (PCR) 07/22/22 07/22/22 07/22/22 00:05 04:00 04:13 WBC RBC 2.90 L Hgb 9.5 L Hct 28.9 L MCV 100 H MCH 33 H RDW 15.5 H Plt Count [place] % (Auto) 10.0 H Seg Neutrophils % Seg Neutrophils # PT APTT D-Dimer ABG pH ABG pO2 ABG HCO3 ABG O2 Saturation ABG Base Excess ABG Hemoglobin Oxyhemoglobin Sodium Potassium Chloride Carbon Dioxide 31 H BUN Creatinine 0.4 L Glucose 105 H POC Glucose 143 H Lactic Acid Uric Acid Calcium Phosphorus Magnesium Ferritin Total Bilirubin AST Lactate Dehydrogenase Total Creatine Kinase C-Reactive Protein Total Protein Albumin TSH Free T3 Index Urine WBC (Auto) Urine Creatinine Salicylates Acetaminophen Valproic Acid SARS-CoV-2 (PCR) 07/22/22 07/23/22 07/23/22 11:03 04:25 04:25 WBC RBC 2.71 L Hgb 9.1 L Hct 27.0 L MCV 100 H MCH 33 H RDW 15.4 H Plt Count [place] % (Auto) Seg Neutrophils % Seg Neutrophils # PT APTT D-Dimer ABG pH ABG pO2 ABG HCO3 ABG O2 Saturation ABG Base Excess ABG Hemoglobin Oxyhemoglobin Sodium Potassium Chloride Carbon Dioxide 33 H BUN Creatinine 0.4 L Glucose POC Glucose 111 H Lactic Acid Uric Acid Calcium 8.3 L Phosphorus Magnesium Ferritin Total Bilirubin AST Lactate Dehydrogenase Total Creatine Kinase C-Reactive Protein Total Protein Albumin TSH Free T3 Index Urine WBC (Auto) Urine Creatinine Salicylates Acetaminophen Valproic Acid SARS-CoV-2 (PCR) 07/23/22 07/23/22 07/23/22 06:14 11:09 23:34 WBC RBC Hgb Hct MCV MCH RDW Plt Count [place] % (Auto) Seg Neutrophils % Seg Neutrophils # PT APTT D-Dimer ABG pH ABG pO2 ABG HCO3 ABG O2 Saturation ABG Base Excess ABG Hemoglobin Oxyhemoglobin Sodium Potassium Chloride Carbon Dioxide BUN Creatinine Glucose POC Glucose 106 H 117 H 115 H Lactic Acid Uric Acid Calcium Phosphorus Magnesium Ferritin Total Bilirubin AST Lactate Dehydrogenase Total Creatine Kinase C-Reactive Protein Total Protein Albumin TSH Free T3 Index Urine WBC (Auto) Urine Creatinine Salicylates Acetaminophen Valproic Acid SARS-CoV-2 (PCR) 07/24/22 07/24/22 07/24/22 05:24 11:25 16:52 WBC RBC Hgb Hct MCV MCH RDW Plt Count [place] % (Auto) Seg Neutrophils % Seg Neutrophils # PT APTT D-Dimer ABG pH ABG pO2 ABG HCO3 ABG O2 Saturation ABG Base Excess ABG Hemoglobin Oxyhemoglobin Sodium Potassium Chloride Carbon Dioxide BUN Creatinine Glucose POC Glucose 122 H 139 H 126 H Lactic Acid Uric Acid Calcium Phosphorus Magnesium Ferritin Total Bilirubin AST Lactate Dehydrogenase Total Creatine Kinase C-Reactive Protein Total Protein Albumin TSH Free T3 Index Urine WBC (Auto) Urine Creatinine Salicylates Acetaminophen Valproic Acid SARS-CoV-2 (PCR) 07/25/22 07/25/22 07/25/22 00:10 04:22 04:22 WBC RBC 2.86 L Hgb 9.4 L Hct 28.5 L MCV 100 H MCH 33 H RDW 15.4 H Plt Count [place] % (Auto) Seg Neutrophils % Seg Neutrophils # PT APTT D-Dimer ABG pH ABG pO2 ABG HCO3 ABG O2 Saturation ABG Base Excess ABG Hemoglobin Oxyhemoglobin Sodium Potassium Chloride Carbon Dioxide 31 H BUN Creatinine 0.3 L Glucose 135 H POC Glucose 131 H Lactic Acid Uric Acid Calcium 8.0 L Phosphorus 2.20 L Magnesium Ferritin Total Bilirubin AST Lactate Dehydrogenase Total Creatine Kinase C-Reactive Protein Total Protein Albumin TSH Free T3 Index Urine WBC (Auto) Urine Creatinine Salicylates Acetaminophen Valproic Acid SARS-CoV-2 (PCR) 07/25/22 07/25/22 07/25/22 05:17 11:49 17:27 WBC RBC Hgb Hct MCV MCH RDW Plt Count [place] % (Auto) Seg Neutrophils % Seg Neutrophils # PT APTT D-Dimer ABG pH ABG pO2 ABG HCO3 ABG O2 Saturation ABG Base Excess ABG Hemoglobin Oxyhemoglobin Sodium Potassium Chloride Carbon Dioxide BUN Creatinine Glucose POC Glucose 155 H 140 H 123 H Lactic Acid Uric Acid Calcium Phosphorus Magnesium Ferritin Total Bilirubin AST Lactate Dehydrogenase Total Creatine Kinase C-Reactive Protein Total Protein Albumin TSH Free T3 Index Urine WBC (Auto) Urine Creatinine Salicylates Acetaminophen Valproic Acid SARS-CoV-2 (PCR) 07/25/22 07/26/22 07/26/22 23:57 06:00 06:08 WBC RBC Hgb Hct MCV MCH RDW Plt Count [place] % (Auto) Seg Neutrophils % Seg Neutrophils # PT APTT D-Dimer ABG pH ABG pO2 ABG HCO3 ABG O2 Saturation ABG Base Excess ABG Hemoglobin Oxyhemoglobin Sodium Potassium 3.5 L Chloride Carbon Dioxide 32 H BUN Creatinine 0.3 L Glucose 116 H POC Glucose 124 H 134 H Lactic Acid Uric Acid Calcium 7.9 L Phosphorus Magnesium Ferritin Total Bilirubin AST Lactate Dehydrogenase Total Creatine Kinase C-Reactive Protein Total Protein Albumin TSH Free T3 Index Urine WBC (Auto) Urine Creatinine Salicylates Acetaminophen Valproic Acid SARS-CoV-2 (PCR) 07/26/22 Unknown WBC RBC 2.61 L Hgb 8.8 L Hct 26.2 L MCV 100 H MCH 34 H RDW 15.6 H Plt Count [place] % (Auto) Seg Neutrophils % Seg Neutrophils # PT APTT D-Dimer ABG pH ABG pO2 ABG HCO3 ABG O2 Saturation ABG Base Excess ABG Hemoglobin Oxyhemoglobin Sodium Potassium Chloride Carbon Dioxide BUN Creatinine Glucose POC Glucose Lactic Acid Uric Acid Calcium Phosphorus Magnesium Ferritin Total Bilirubin AST Lactate Dehydrogenase Total Creatine Kinase C-Reactive Protein Total Protein Albumin TSH Free T3 Index Urine WBC (Auto) Urine Creatinine Salicylates Acetaminophen Valproic Acid SARS-CoV-2 (PCR)
[2022-07-27] MEDS: INSULIN LISPRO 100 UNIT/ML SUB-Q SCH ×3 (06:10→18:53)
[2022-07-27] MEDS: HEPARIN 5,000 UNIT/1 ML VIAL SUB-Q SCH ×2 (06:22→17:57)
[2022-07-27] MEDS: LEVOTHYROXINE 75 MCG TAB FEEDTUBE SCH (06:22)
[2022-07-27] MEDS: VALPROIC ACID 250 MG/5 ML ORAL LIQD FEEDTUBE SCH ×2 (09:52→21:33)
[2022-07-27] MEDS: SENNOSIDES/DOCUSATE SODIUM 8.6/50 MG TAB FEEDTUBE SCH ×2 (09:52→21:33)
[2022-07-27] MEDS: FAMOTIDINE 20 MG TAB FEEDTUBE SCH ×2 (09:52→21:33)
[2022-07-27] MEDS: CHOLECALCIFEROL (VIT D3) 1000 UNIT (25 mcg) TAB FEEDTUBE SCH (09:52)
[2022-07-27 11:36] LABS: Blood Urea Nitrogen 9 mg/dL (7-17); Calcium 8.3 mg/dL (8.4-10.2); Hemolysis Index 2
[2022-07-27 11:43] LABS: BUN/Creatinine Ratio 30
--- NOTE | 2022-07-27 12:15 | Progress Note ---
Assessment and Plan 76 y/o female with acute respiratory failure secondary to altered mental status, most likely from electrolyte abnormalities seen on chemistry, found to be COVID positive. 07/27/2022: Patient is unresponsive remains on trach and mechanical ventilation. Getting daily PSV trials. FiO2 is 28% with 100% saturation. Continue with the current therapy continue to wean as tolerated. 07/26/22: Daily PSV trials. Continue tube feeds. Awaiting placement. 07/25/22: Daily PSV trials. Tube feeds going and tolerating. Need to consider at least PT consult to help with movement of lower ext. 07/24/22: Continue tube feeds. Continue daily PSV trials. Await placement, weanable but will need time. 07/23/22: Tube feeds back on. No PSV trials today but will do again tomorrow. Awaiting placement. 07/22/22: Trach and Peg hopefully today. 07/21/22: Did 6 hours of PSV yesterday. Trach and peg tomorrow. Check labs to make sure lytes are stable. 07/20/22: Trach/Peg Friday. Supportive care. 07/19/22: Appreciate Surgery. on Schedule for next week. Free T4 was normal. No current indication for stress dose steroids. Continue supportive care. 07/18/22: Family meeting: Discussed current mental state. Discussed negative work up so far to explain why mental state hasnt improved. Per family here, patient was better than what she is not but I had difficult time placing a time frame as to when that was, maybe May. It does appear that she has had a steady decline mentally and even stopped eating. There were talks prior to her admission here about Peg tube placement. Discussed the idea of trach and peg placement. Also explained to family that trach does not fix any underlying reason as to why the patient's mental state is the way it is. The family wasn't aware that she was brought in for altered mental status, they were told she had bradycardia. Nonetheless, the family as a whole wish to pursue trach and peg placement. Consulted Surgery and hopeful they will see soon. Continue supportive measures and continue daily PSV trials. TSH on admit was 13, will repeat but if T4 is normal, nothing to do. She also is not behaving like myxedema coma. Guarded prognosis. 07/17/22: steroids end today. Continue daily PSV trials. Will speak with family about next steps as today is day 10 of intubation and it does not appear that conventional extubation is in the near future. 07/16/22: Continue daily PSV trials. Will speak with family tomorrow as patient is not improving enough for conventional extubation, especially with frequent apnic events. Most likely patient will need trach and peg. 07/15/22: mental status is still unchanged. Eyes open but not tracking or following commands. Also going apnic on PSV trials. Most likely will need trach and peg given mental status has not improved. 07/12/22: Negative MRI for acute infarct. Na is normal. Continue to monitor. Daily PSV trials. Has been intubated now for 5 days. 07/11/22: for MRI today. Appreciate renal help, agree with signing off. Attempt daily PSV. Guarded prognosis. 07/10: follow up MRI. Get official EEG read but no status. Continue daily PSV trials. Guarded prognosis 07/09/22: Continue supportive measures. Continue to fix Na, if no improvement in mental state with normal sodium then will pursue MRI. Picc placed today. 07/08/22: No further sedation. 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 Consider neurology consult and may need to obtain MRI. Attempt PSV trials today. 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 Feed patient and monitor lytes. 1. Discontinue sedation 2. Wean FiO2 for sats >88% and PaO2 greater than 60 3. Agree with fluid resuscitation, patient needs free water 4. Will follow up with family to find out exactly what patient mental status was a facility CCT 31 minutes. Subjective Date of service: 07/27/22 Principal diagnosis: Hypernatremia Interval history: Patient remains unresponsive now has trach and PEG remain on mechanical ventilator. Objective Vital Signs - 12hr 07/27/22 07/27/22 07/27/22 01:00 02:00 03:01 Temperature Pulse Rate 96 H 95 H 111 H Respiratory 11 L 12 12 Rate Blood Pressure 118/67 114/69 122/69 O2 Sat by Pulse 100 100 100 Oximetry O2 Sat by Pulse Oximetry [ Assessment] 07/27/22 07/27/22 07/27/22 04:00 04:31 04:36 Temperature 97.9 F Pulse Rate 102 H Respiratory 14 Rate Blood Pressure 113/69 O2 Sat by Pulse 100 Oximetry O2 Sat by Pulse 100 Oximetry [ Assessment] 07/27/22 07/27/22 07/27/22 05:00 06:01 07:00 Temperature Pulse Rate 99 H 94 H 94 H Respiratory 11 L 12 11 L Rate Blood Pressure 116/73 112/60 119/60 O2 Sat by Pulse 100 100 100 Oximetry O2 Sat by Pulse Oximetry [ Assessment] 07/27/22 07/27/22 07/27/22 07:47 07:49 08:00 Temperature 99 F Pulse Rate 102 H Respiratory 12 14 Rate Blood Pressure 110/72 O2 Sat by Pulse 100 100 Oximetry O2 Sat by Pulse Oximetry [ Assessment] 07/27/22 07/27/22 07/27/22 08:46 08:51 09:00 Temperature Pulse Rate 103 H 91 H Respiratory 11 L Rate Blood Pressure 110/72 104/65 O2 Sat by Pulse 100 100 99 Oximetry O2 Sat by Pulse Oximetry [ Assessment] 07/27/22 07/27/22 07/27/22 10:00 11:01 11:36 Temperature Pulse Rate 99 H 100 H Respiratory 14 19 Rate Blood Pressure 117/70 107/72 O2 Sat by Pulse 100 100 Oximetry O2 Sat by Pulse 99 Oximetry [ Assessment] Constitutional: comatose ENT: other (orally intubated) Neck: supple Effort: normal Ascultation: Bilateral: clear Percussion: Bilateral: not dull Cardiovascular: regular rate and rhythm Gastrointestinal: normoactive bowel sounds, soft Extremities: no cyanosis, no edema Neurologic: unable to assess CBC and BMP: 07/26/22 Unknown 07/27/22 10:00 ABG, PT/INR, D-dimer: ABG ABG pH 7.503 pH Units (7.350-7.450) H 07/20/22 05:30 ABG pCO2 42.7 mm Hg 07/20/22 05:30 ABG pO2 99.1 mm Hg (80.0-90.0) H 07/20/22 05:30 ABG O2 Saturation 97.8 % (95.0-99.0) 07/20/22 05:30 PT/INR, D-dimer PT 13.0 Sec. (12.2-14.9) 07/22/22 04:13 INR 0.87 (0.87-1.13) 07/22/22 04:13 D-Dimer 925.80 ng/mlDDU (0-234) H 07/12/22 04:00 Abnormal lab findings: Abnormal Labs 07/07/22 07/07/22 07/07/22 03:17 03:38 03:38 WBC RBC 5.43 H Hgb 18.2 H Hct 54.9 H MCV 101 H MCH 34 H RDW Plt Count 104 L [place] % (Auto) Seg Neutrophils % Seg Neutrophils # PT 15.0 H APTT 23.0 L D-Dimer ABG pH ABG pO2 ABG HCO3 ABG O2 Saturation ABG Base Excess ABG Hemoglobin Oxyhemoglobin Sodium Potassium Chloride Carbon Dioxide BUN Creatinine Glucose POC Glucose Lactic Acid Uric Acid Calcium Phosphorus Magnesium Ferritin Total Bilirubin AST Lactate Dehydrogenase Total Creatine Kinase C-Reactive Protein Total Protein Albumin TSH Free T3 Index Urine WBC (Auto) 7.0 H Urine Creatinine Salicylates Acetaminophen Valproic Acid SARS-CoV-2 (PCR) 07/07/22 07/07/22 07/07/22 03:38 03:38 03:38 WBC RBC Hgb Hct MCV MCH RDW Plt Count [place] % (Auto) Seg Neutrophils % Seg Neutrophils # PT APTT D-Dimer ABG pH ABG pO2 ABG HCO3 ABG O2 Saturation ABG Base Excess ABG Hemoglobin Oxyhemoglobin Sodium Potassium Chloride Carbon Dioxide BUN Creatinine Glucose POC Glucose Lactic Acid Uric Acid Calcium Phosphorus Magnesium 3.30 H Ferritin Total Bilirubin AST Lactate Dehydrogenase Total Creatine Kinase 1826 H C-Reactive Protein Total Protein Albumin TSH Free T3 Index Urine WBC (Auto) Urine Creatinine Salicylates < 0.3 L Acetaminophen 5.0 L Valproic Acid 7.0 L SARS-CoV-2 (PCR) 07/07/22 07/07/22 07/07/22 04:17 04:17 04:17 WBC RBC Hgb Hct MCV MCH RDW Plt Count [place] % (Auto) Seg Neutrophils % Seg Neutrophils # PT APTT D-Dimer ABG pH ABG pO2 ABG HCO3 ABG O2 Saturation ABG Base Excess ABG Hemoglobin Oxyhemoglobin Sodium 168 H* Potassium 3.2 L Chloride 122.2 H Carbon Dioxide BUN 52 H Creatinine Glucose 158 H POC Glucose Lactic Acid 3.50 H* Uric Acid Calcium 10.9 H Phosphorus Magnesium Ferritin Total Bilirubin 1.40 H AST 47 H Lactate Dehydrogenase Total Creatine Kinase C-Reactive Protein Total Protein Albumin TSH 12.790 H Free T3 Index Urine WBC (Auto) Urine Creatinine Salicylates Acetaminophen Valproic Acid SARS-CoV-2 (PCR) 07/07/22 07/07/22 07/07/22 04:17 07:43 09:35 WBC RBC Hgb Hct MCV MCH RDW Plt Count [place] % (Auto) Seg Neutrophils % Seg Neutrophils # PT APTT D-Dimer ABG pH ABG pO2 377.3 H ABG HCO3 ABG O2 Saturation 99.6 H ABG Base Excess -2.5 L ABG Hemoglobin Oxyhemoglobin Sodium Potassium Chloride Carbon Dioxide BUN Creatinine Glucose POC Glucose Lactic Acid 6.30 H* Uric Acid 13.5 H Calcium Phosphorus Magnesium Ferritin Total Bilirubin AST Lactate Dehydrogenase Total Creatine Kinase C-Reactive Protein Total Protein Albumin TSH Free T3 Index Urine WBC (Auto) Urine Creatinine Salicylates Acetaminophen Valproic Acid SARS-CoV-2 (PCR) 07/07/22 07/07/22 07/07/22 15:00 16:00 16:00 WBC RBC Hgb Hct MCV MCH RDW Plt Count [place] % (Auto) Seg Neutrophils % Seg Neutrophils # PT APTT D-Dimer ABG pH ABG pO2 ABG HCO3 ABG O2 Saturation ABG Base Excess ABG Hemoglobin Oxyhemoglobin Sodium 166 H* Potassium Chloride 124.8 H Carbon Dioxide 20 L BUN 41 H Creatinine Glucose 157 H POC Glucose Lactic Acid 7.00 H* Uric Acid Calcium Phosphorus Magnesium Ferritin Total Bilirubin AST 81 H Lactate Dehydrogenase Total Creatine Kinase C-Reactive Protein Total Protein Albumin TSH Free T3 Index Urine WBC (Auto) Urine Creatinine Salicylates Acetaminophen Valproic Acid SARS-CoV-2 (PCR) Positive A 07/07/22 07/07/22 07/07/22 16:45 23:42 23:42 WBC RBC Hgb Hct MCV MCH RDW Plt Count [place] % (Auto) Seg Neutrophils % Seg Neutrophils # PT APTT D-Dimer ABG pH ABG pO2 ABG HCO3 ABG O2 Saturation ABG Base Excess ABG Hemoglobin Oxyhemoglobin Sodium 165 H* Potassium 3.0 L Chloride 122.8 H Carbon Dioxide BUN 38 H Creatinine Glucose 232 H POC Glucose Lactic Acid 5.60 H* Uric Acid Calcium Phosphorus Magnesium Ferritin Total Bilirubin AST Lactate Dehydrogenase Total Creatine Kinase C-Reactive Protein Total Protein Albumin TSH Free T3 Index Urine WBC (Auto) Urine Creatinine 92.9 H Salicylates Acetaminophen Valproic Acid SARS-CoV-2 (PCR) 07/07/22 07/07/22 07/08/22 Unknown Unknown 05:30 WBC RBC Hgb Hct MCV MCH RDW Plt Count [place] % (Auto) Seg Neutrophils % Seg Neutrophils # PT APTT D-Dimer ABG pH 7.553 H 7.473 H ABG pO2 61.7 L 121.7 H ABG HCO3 ABG O2 Saturation 94.7 L ABG Base Excess 4.3 H ABG Hemoglobin 18.0 H Oxyhemoglobin 93.1 L Sodium 163 H* Potassium 6.3 H* D Chloride 123.7 H Carbon Dioxide BUN 42 H Creatinine Glucose 169 H POC Glucose Lactic Acid Uric Acid Calcium Phosphorus Magnesium Ferritin Total Bilirubin AST Lactate Dehydrogenase Total Creatine Kinase C-Reactive Protein Total Protein Albumin TSH Free T3 Index Urine WBC (Auto) Urine Creatinine Salicylates Acetaminophen Valproic Acid SARS-CoV-2 (PCR) 07/08/22 07/08/22 07/08/22 05:36 11:21 14:54 WBC 11.1 H RBC Hgb Hct MCV 101 H MCH 33 H RDW Plt Count 69 L [place] % (Auto) Seg Neutrophils % 82.0 H Seg Neutrophils # 9.1 H PT APTT D-Dimer ABG pH ABG pO2 ABG HCO3 ABG O2 Saturation ABG Base Excess ABG Hemoglobin Oxyhemoglobin Sodium Potassium Chloride Carbon Dioxide BUN Creatinine Glucose POC Glucose 174 H 148 H Lactic Acid Uric Acid Calcium Phosphorus Magnesium Ferritin Total Bilirubin AST Lactate Dehydrogenase Total Creatine Kinase C-Reactive Protein Total Protein Albumin TSH Free T3 Index Urine WBC (Auto) Urine Creatinine Salicylates Acetaminophen Valproic Acid SARS-CoV-2 (PCR) 07/08/22 07/08/22 07/08/22 14:54 14:54 14:54 WBC RBC Hgb Hct MCV MCH RDW Plt Count [place] % (Auto) Seg Neutrophils % Seg Neutrophils # PT APTT D-Dimer ABG pH ABG pO2 ABG HCO3 ABG O2 Saturation ABG Base Excess ABG Hemoglobin Oxyhemoglobin Sodium 163 H* Potassium 2.9 L* Chloride 123.7 H Carbon Dioxide BUN 30 H Creatinine Glucose 161 H POC Glucose Lactic Acid 6.10 H* Uric Acid Calcium Phosphorus Magnesium Ferritin Total Bilirubin AST 69 H Lactate Dehydrogenase Total Creatine Kinase 2335 H C-Reactive Protein Total Protein 5.6 L D Albumin 3.1 L TSH Free T3 Index Urine WBC (Auto) Urine Creatinine Salicylates Acetaminophen Valproic Acid SARS-CoV-2 (PCR) 07/08/22 07/08/22 07/08/22 14:54 14:54 14:54 WBC RBC Hgb Hct MCV MCH RDW Plt Count [place] % (Auto) Seg Neutrophils % Seg Neutrophils # PT APTT D-Dimer 499.72 H ABG pH ABG pO2 ABG HCO3 ABG O2 Saturation ABG Base Excess ABG Hemoglobin Oxyhemoglobin Sodium Potassium Chloride Carbon Dioxide BUN Creatinine Glucose POC Glucose Lactic Acid Uric Acid Calcium Phosphorus Magnesium Ferritin 722.1 H Total Bilirubin AST Lactate Dehydrogenase 455 H Total Creatine Kinase C-Reactive Protein 1.60 H Total Protein Albumin TSH Free T3 Index Urine WBC (Auto) Urine Creatinine Salicylates Acetaminophen Valproic Acid SARS-CoV-2 (PCR) 07/08/22 07/08/22 07/09/22 19:13 19:53 00:09 WBC RBC Hgb Hct MCV MCH RDW Plt Count [place] % (Auto) Seg Neutrophils % Seg Neutrophils # PT APTT D-Dimer ABG pH ABG pO2 ABG HCO3 ABG O2 Saturation ABG Base Excess ABG Hemoglobin Oxyhemoglobin Sodium 160 H Potassium 3.5 L D Chloride 122.0 H Carbon Dioxide 20 L BUN 28 H Creatinine Glucose 151 H POC Glucose 138 H Lactic Acid 5.70 H* Uric Acid Calcium Phosphorus Magnesium Ferritin Total Bilirubin AST Lactate Dehydrogenase Total Creatine Kinase C-Reactive Protein Total Protein Albumin TSH Free T3 Index Urine WBC (Auto) Urine Creatinine Salicylates Acetaminophen Valproic Acid SARS-CoV-2 (PCR) 07/09/22 07/09/22 07/09/22 00:45 03:21 03:21 WBC RBC Hgb Hct MCV MCH RDW Plt Count [place] % (Auto) Seg Neutrophils % Seg Neutrophils # PT APTT D-Dimer ABG pH ABG pO2 ABG HCO3 ABG O2 Saturation ABG Base Excess ABG Hemoglobin Oxyhemoglobin Sodium 158 H 157 H Potassium Chloride 124.2 H 125.0 H Carbon Dioxide 20 L 20 L BUN 25 H 24 H Creatinine Glucose 147 H 169 H POC Glucose Lactic Acid 4.70 H* Uric Acid Calcium Phosphorus Magnesium Ferritin Total Bilirubin AST 81 H Lactate Dehydrogenase Total Creatine Kinase C-Reactive Protein Total Protein 5.7 L Albumin 2.8 L TSH Free T3 Index Urine WBC (Auto) Urine Creatinine Salicylates Acetaminophen Valproic Acid SARS-CoV-2 (PCR) 07/09/22 07/09/22 07/09/22 04:40 05:35 08:14 WBC RBC Hgb Hct MCV 102 H MCH 33 H RDW Plt Count 74 L [place] % (Auto) Seg Neutrophils % Seg Neutrophils # PT APTT D-Dimer ABG pH ABG pO2 172.1 H ABG HCO3 ABG O2 Saturation 99.1 H ABG Base Excess -2.8 L ABG Hemoglobin Oxyhemoglobin Sodium Potassium Chloride Carbon Dioxide BUN Creatinine Glucose POC Glucose 108 H Lactic Acid Uric Acid Calcium Phosphorus Magnesium Ferritin Total Bilirubin AST Lactate Dehydrogenase Total Creatine Kinase C-Reactive Protein Total Protein Albumin TSH Free T3 Index Urine WBC (Auto) Urine Creatinine Salicylates Acetaminophen Valproic Acid SARS-CoV-2 (PCR) 07/09/22 07/09/22 07/09/22 11:16 11:27 16:20 WBC RBC Hgb Hct MCV MCH RDW Plt Count [place] % (Auto) Seg Neutrophils % Seg Neutrophils # PT APTT D-Dimer ABG pH ABG pO2 ABG HCO3 ABG O2 Saturation ABG Base Excess ABG Hemoglobin Oxyhemoglobin Sodium 155 H Potassium Chloride 121.3 H Carbon Dioxide BUN 21 H Creatinine Glucose 170 H POC Glucose 173 H 190 H Lactic Acid Uric Acid Calcium Phosphorus Magnesium Ferritin Total Bilirubin AST Lactate Dehydrogenase Total Creatine Kinase C-Reactive Protein Total Protein Albumin TSH Free T3 Index Urine WBC (Auto) Urine Creatinine Salicylates Acetaminophen Valproic Acid SARS-CoV-2 (PCR) 07/09/22 07/10/22 07/10/22 17:16 00:04 04:21 WBC RBC Hgb Hct MCV MCH RDW Plt Count [place] % (Auto) Seg Neutrophils % Seg Neutrophils # PT APTT D-Dimer ABG pH ABG pO2 ABG HCO3 ABG O2 Saturation ABG Base Excess ABG Hemoglobin Oxyhemoglobin Sodium 149 H 150 H Potassium Chloride 115.6 H 115.0 H Carbon Dioxide BUN 18 H Creatinine 0.5 L Glucose 207 H 178 H POC Glucose 180 H Lactic Acid Uric Acid Calcium 7.9 L Phosphorus Magnesium Ferritin Total Bilirubin AST 89 H Lactate Dehydrogenase 431 H Total Creatine Kinase C-Reactive Protein Total Protein 4.9 L Albumin 2.5 L TSH Free T3 Index Urine WBC (Auto) Urine Creatinine Salicylates Acetaminophen Valproic Acid SARS-CoV-2 (PCR) 07/10/22 07/10/22 07/10/22 04:21 04:21 04:21 WBC 11.8 H RBC 3.52 L Hgb Hct MCV 99 H MCH 33 H RDW Plt Count 67 L [place] % (Auto) Seg Neutrophils % Seg Neutrophils # PT APTT D-Dimer 585.71 H ABG pH ABG pO2 ABG HCO3 ABG O2 Saturation ABG Base Excess ABG Hemoglobin Oxyhemoglobin Sodium Potassium Chloride Carbon Dioxide BUN Creatinine Glucose POC Glucose Lactic Acid Uric Acid Calcium Phosphorus Magnesium Ferritin 631.3 H Total Bilirubin AST Lactate Dehydrogenase Total Creatine Kinase C-Reactive Protein Total Protein Albumin TSH Free T3 Index Urine WBC (Auto) Urine Creatinine Salicylates Acetaminophen Valproic Acid SARS-CoV-2 (PCR) 07/10/22 07/10/22 07/10/22 04:21 04:55 05:26 WBC RBC Hgb Hct MCV MCH RDW Plt Count [place] % (Auto) Seg Neutrophils % Seg Neutrophils # PT APTT D-Dimer ABG pH ABG pO2 76.8 L ABG HCO3 ABG O2 Saturation ABG Base Excess ABG Hemoglobin 10.4 L Oxyhemoglobin 94.5 L Sodium Potassium Chloride Carbon Dioxide BUN Creatinine Glucose POC Glucose 147 H Lactic Acid 2.50 H* Uric Acid Calcium Phosphorus Magnesium Ferritin Total Bilirubin AST Lactate Dehydrogenase Total Creatine Kinase C-Reactive Protein Total Protein Albumin TSH Free T3 Index Urine WBC (Auto) Urine Creatinine Salicylates Acetaminophen Valproic Acid SARS-CoV-2 (PCR) 07/10/22 07/10/22 07/10/22 08:24 11:31 12:53 WBC RBC Hgb Hct MCV MCH RDW Plt Count [place] % (Auto) Seg Neutrophils % Seg Neutrophils # PT APTT D-Dimer ABG pH ABG pO2 ABG HCO3 ABG O2 Saturation ABG Base Excess ABG Hemoglobin Oxyhemoglobin Sodium Potassium Chloride 110.9 H Carbon Dioxide BUN Creatinine 0.5 L Glucose 200 H POC Glucose 166 H Lactic Acid 2.10 H* Uric Acid Calcium 8.3 L Phosphorus Magnesium Ferritin Total Bilirubin AST Lactate Dehydrogenase Total Creatine Kinase C-Reactive Protein Total Protein Albumin TSH Free T3 Index Urine WBC (Auto) Urine Creatinine Salicylates Acetaminophen Valproic Acid SARS-CoV-2 (PCR) 07/10/22 07/10/22 07/10/22 17:37 18:53 23:30 WBC RBC Hgb Hct MCV MCH RDW Plt Count [place] % (Auto) Seg Neutrophils % Seg Neutrophils # PT APTT D-Dimer ABG pH ABG pO2 ABG HCO3 ABG O2 Saturation ABG Base Excess ABG Hemoglobin Oxyhemoglobin Sodium Potassium Chloride 109.5 H 110.2 H Carbon Dioxide BUN Creatinine 0.5 L 0.5 L Glucose 243 H 208 H POC Glucose 237 H Lactic Acid Uric Acid Calcium 8.1 L 8.1 L Phosphorus Magnesium Ferritin Total Bilirubin AST Lactate Dehydrogenase Total Creatine Kinase C-Reactive Protein Total Protein Albumin TSH Free T3 Index Urine WBC (Auto) Urine Creatinine Salicylates Acetaminophen Valproic Acid SARS-CoV-2 (PCR) 07/10/22 07/11/22 07/11/22 23:57 04:00 04:15 WBC 11.2 H RBC Hgb Hct MCV 99 H MCH RDW Plt Count 73 L [place] % (Auto) Seg Neutrophils % Seg Neutrophils # PT APTT D-Dimer ABG pH ABG pO2 107.4 H ABG HCO3 ABG O2 Saturation ABG Base Excess ABG Hemoglobin Oxyhemoglobin Sodium Potassium Chloride Carbon Dioxide BUN Creatinine Glucose POC Glucose 195 H Lactic Acid Uric Acid Calcium Phosphorus Magnesium Ferritin Total Bilirubin AST Lactate Dehydrogenase Total Creatine Kinase C-Reactive Protein Total Protein Albumin TSH Free T3 Index Urine WBC (Auto) Urine Creatinine Salicylates Acetaminophen Valproic Acid SARS-CoV-2 (PCR) 07/11/22 07/11/22 07/11/22 05:40 05:40 06:06 WBC RBC Hgb Hct MCV MCH RDW Plt Count [place] % (Auto) Seg Neutrophils % Seg Neutrophils # PT APTT D-Dimer ABG pH ABG pO2 ABG HCO3 ABG O2 Saturation ABG Base Excess ABG Hemoglobin Oxyhemoglobin Sodium Potassium Chloride 109.8 H Carbon Dioxide BUN Creatinine 0.5 L Glucose 160 H POC Glucose 145 H Lactic Acid Uric Acid Calcium 8.3 L Phosphorus Magnesium Ferritin Total Bilirubin AST Lactate Dehydrogenase Total Creatine Kinase 1745 H C-Reactive Protein Total Protein Albumin TSH Free T3 Index Urine WBC (Auto) Urine Creatinine Salicylates Acetaminophen Valproic Acid SARS-CoV-2 (PCR) 07/11/22 07/11/22 07/11/22 11:55 11:59 17:44 WBC RBC Hgb Hct MCV MCH RDW Plt Count [place] % (Auto) Seg Neutrophils % Seg Neutrophils # PT APTT D-Dimer ABG pH ABG pO2 ABG HCO3 ABG O2 Saturation ABG Base Excess ABG Hemoglobin Oxyhemoglobin Sodium Potassium Chloride 107.8 H Carbon Dioxide BUN Creatinine 0.5 L Glucose 150 H POC Glucose 150 H 182 H Lactic Acid Uric Acid Calcium 8.2 L Phosphorus Magnesium Ferritin Total Bilirubin AST Lactate Dehydrogenase Total Creatine Kinase C-Reactive Protein Total Protein Albumin TSH Free T3 Index Urine WBC (Auto) Urine Creatinine Salicylates Acetaminophen Valproic Acid SARS-CoV-2 (PCR) 07/11/22 07/12/22 07/12/22 17:50 00:10 00:12 WBC RBC Hgb Hct MCV MCH RDW Plt Count [place] % (Auto) Seg Neutrophils % Seg Neutrophils # PT APTT D-Dimer ABG pH ABG pO2 ABG HCO3 ABG O2 Saturation ABG Base Excess ABG Hemoglobin Oxyhemoglobin Sodium Potassium Chloride 108.4 H Carbon Dioxide BUN Creatinine 0.5 L 0.4 L Glucose 191 H 163 H POC Glucose 154 H Lactic Acid Uric Acid Calcium 8.2 L 7.9 L Phosphorus Magnesium Ferritin Total Bilirubin AST Lactate Dehydrogenase Total Creatine Kinase C-Reactive Protein Total Protein Albumin TSH Free T3 Index Urine WBC (Auto) Urine Creatinine Salicylates Acetaminophen Valproic Acid SARS-CoV-2 (PCR) 07/12/22 07/12/22 07/12/22 04:00 04:00 04:00 WBC RBC Hgb Hct MCV MCH RDW Plt Count [place] % (Auto) Seg Neutrophils % Seg Neutrophils # PT APTT D-Dimer 925.80 H ABG pH ABG pO2 ABG HCO3 ABG O2 Saturation ABG Base Excess ABG Hemoglobin Oxyhemoglobin Sodium Potassium Chloride Carbon Dioxide BUN Creatinine Glucose POC Glucose Lactic Acid Uric Acid Calcium Phosphorus Magnesium Ferritin 519.5 H Total Bilirubin AST Lactate Dehydrogenase 444 H Total Creatine Kinase C-Reactive Protein Total Protein Albumin TSH Free T3 Index Urine WBC (Auto) Urine Creatinine Salicylates Acetaminophen Valproic Acid SARS-CoV-2 (PCR) 07/12/22 07/12/22 07/12/22 04:00 05:00 05:03 WBC 11.7 H RBC 3.33 L Hgb Hct MCV 99 H MCH 33 H RDW Plt Count 68 L [place] % (Auto) Seg Neutrophils % Seg Neutrophils # PT APTT D-Dimer ABG pH 7.453 H ABG pO2 107.9 H ABG HCO3 27.9 H ABG O2 Saturation ABG Base Excess 3.7 H ABG Hemoglobin 10.9 L Oxyhemoglobin Sodium Potassium Chloride Carbon Dioxide BUN Creatinine Glucose POC Glucose 174 H Lactic Acid Uric Acid Calcium Phosphorus Magnesium Ferritin Total Bilirubin AST Lactate Dehydrogenase Total Creatine Kinase C-Reactive Protein Total Protein Albumin TSH Free T3 Index Urine WBC (Auto) Urine Creatinine Salicylates Acetaminophen Valproic Acid SARS-CoV-2 (PCR) 07/12/22 07/12/22 07/12/22 12:15 17:18 23:14 WBC RBC Hgb Hct MCV MCH RDW Plt Count [place] % (Auto) Seg Neutrophils % Seg Neutrophils # PT APTT D-Dimer ABG pH ABG pO2 ABG HCO3 ABG O2 Saturation ABG Base Excess ABG Hemoglobin Oxyhemoglobin Sodium Potassium Chloride Carbon Dioxide BUN Creatinine Glucose POC Glucose 154 H 154 H 167 H Lactic Acid Uric Acid Calcium Phosphorus Magnesium Ferritin Total Bilirubin AST Lactate Dehydrogenase Total Creatine Kinase C-Reactive Protein Total Protein Albumin TSH Free T3 Index Urine WBC (Auto) Urine Creatinine Salicylates Acetaminophen Valproic Acid SARS-CoV-2 (PCR) 07/13/22 07/13/22 07/13/22 04:00 04:10 05:14 WBC RBC 3.17 L Hgb Hct MCV 98 H MCH 34 H RDW Plt Count 75 L [place] % (Auto) Seg Neutrophils % Seg Neutrophils # PT APTT D-Dimer ABG pH ABG pO2 ABG HCO3 ABG O2 Saturation ABG Base Excess ABG Hemoglobin Oxyhemoglobin Sodium Potassium Chloride Carbon Dioxide BUN Creatinine 0.4 L Glucose 136 H POC Glucose 140 H Lactic Acid Uric Acid Calcium Phosphorus Magnesium Ferritin Total Bilirubin AST Lactate Dehydrogenase Total Creatine Kinase C-Reactive Protein Total Protein Albumin TSH Free T3 Index Urine WBC (Auto) Urine Creatinine Salicylates Acetaminophen Valproic Acid SARS-CoV-2 (PCR) 07/13/22 07/13/22 07/13/22 12:03 14:25 17:19 WBC RBC Hgb Hct MCV MCH RDW Plt Count [place] % (Auto) Seg Neutrophils % Seg Neutrophils # PT APTT D-Dimer ABG pH 7.478 H ABG pO2 118.1 H ABG HCO3 28.2 H ABG O2 Saturation ABG Base Excess 4.5 H ABG Hemoglobin Oxyhemoglobin Sodium Potassium Chloride Carbon Dioxide BUN Creatinine Glucose POC Glucose 193 H 189 H Lactic Acid Uric Acid Calcium Phosphorus Magnesium Ferritin Total Bilirubin AST Lactate Dehydrogenase Total Creatine Kinase C-Reactive Protein Total Protein Albumin TSH Free T3 Index Urine WBC (Auto) Urine Creatinine Salicylates Acetaminophen Valproic Acid SARS-CoV-2 (PCR) 07/13/22 07/13/22 07/14/22 23:52 Unknown 06:18 WBC RBC Hgb Hct MCV MCH RDW Plt Count [place] % (Auto) Seg Neutrophils % Seg Neutrophils # PT APTT D-Dimer ABG pH 7.465 H ABG pO2 128.8 H ABG HCO3 29.0 H ABG O2 Saturation ABG Base Excess 4.9 H ABG Hemoglobin 10.3 L Oxyhemoglobin Sodium Potassium Chloride Carbon Dioxide BUN Creatinine Glucose POC Glucose 174 H 167 H Lactic Acid Uric Acid Calcium Phosphorus Magnesium Ferritin Total Bilirubin AST Lactate Dehydrogenase Total Creatine Kinase C-Reactive Protein Total Protein Albumin TSH Free T3 Index Urine WBC (Auto) Urine Creatinine Salicylates Acetaminophen Valproic Acid SARS-CoV-2 (PCR) 07/14/22 07/14/22 07/15/22 11:34 17:20 00:25 WBC RBC Hgb Hct MCV MCH RDW Plt Count [place] % (Auto) Seg Neutrophils % Seg Neutrophils # PT APTT D-Dimer ABG pH ABG pO2 ABG HCO3 ABG O2 Saturation ABG Base Excess ABG Hemoglobin Oxyhemoglobin Sodium Potassium Chloride Carbon Dioxide BUN Creatinine Glucose POC Glucose 187 H 221 H 172 H Lactic Acid Uric Acid Calcium Phosphorus Magnesium Ferritin Total Bilirubin AST Lactate Dehydrogenase Total Creatine Kinase C-Reactive Protein Total Protein Albumin TSH Free T3 Index Urine WBC (Auto) Urine Creatinine Salicylates Acetaminophen Valproic Acid SARS-CoV-2 (PCR) 07/15/22 07/15/22 07/15/22 04:00 04:00 05:49 WBC 11.4 H RBC 3.13 L Hgb Hct MCV 98 H MCH 33 H RDW Plt Count 98 L [place] % (Auto) Seg Neutrophils % Seg Neutrophils # PT APTT D-Dimer ABG pH ABG pO2 ABG HCO3 ABG O2 Saturation ABG Base Excess ABG Hemoglobin Oxyhemoglobin Sodium Potassium Chloride Carbon Dioxide 34 H BUN Creatinine 0.4 L Glucose 126 H POC Glucose 143 H Lactic Acid Uric Acid Calcium Phosphorus Magnesium Ferritin Total Bilirubin AST Lactate Dehydrogenase Total Creatine Kinase C-Reactive Protein Total Protein Albumin TSH Free T3 Index Urine WBC (Auto) Urine Creatinine Salicylates Acetaminophen Valproic Acid SARS-CoV-2 (PCR) 07/15/22 07/15/22 07/16/22 11:19 16:16 00:19 WBC RBC Hgb Hct MCV MCH RDW Plt Count [place] % (Auto) Seg Neutrophils % Seg Neutrophils # PT APTT D-Dimer ABG pH ABG pO2 ABG HCO3 ABG O2 Saturation ABG Base Excess ABG Hemoglobin Oxyhemoglobin Sodium Potassium Chloride Carbon Dioxide BUN Creatinine Glucose POC Glucose 158 H 227 H 153 H Lactic Acid Uric Acid Calcium Phosphorus Magnesium Ferritin Total Bilirubin AST Lactate Dehydrogenase Total Creatine Kinase C-Reactive Protein Total Protein Albumin TSH Free T3 Index Urine WBC (Auto) Urine Creatinine Salicylates Acetaminophen Valproic Acid SARS-CoV-2 (PCR) 07/16/22 07/16/22 07/16/22 04:20 04:20 11:28 WBC RBC 3.16 L Hgb Hct MCV 99 H MCH 33 H RDW Plt Count 101 L [place] % (Auto) Seg Neutrophils % Seg Neutrophils # PT APTT D-Dimer ABG pH ABG pO2 ABG HCO3 ABG O2 Saturation ABG Base Excess ABG Hemoglobin Oxyhemoglobin Sodium Potassium Chloride Carbon Dioxide 36 H BUN 18 H Creatinine 0.4 L Glucose 139 H POC Glucose 158 H Lactic Acid Uric Acid Calcium Phosphorus Magnesium Ferritin Total Bilirubin AST Lactate Dehydrogenase Total Creatine Kinase C-Reactive Protein Total Protein Albumin TSH Free T3 Index Urine WBC (Auto) Urine Creatinine Salicylates Acetaminophen Valproic Acid SARS-CoV-2 (PCR) 07/16/22 07/17/22 07/17/22 16:30 00:07 05:46 WBC RBC Hgb Hct MCV MCH RDW Plt Count [place] % (Auto) Seg Neutrophils % Seg Neutrophils # PT APTT D-Dimer ABG pH ABG pO2 ABG HCO3 ABG O2 Saturation ABG Base Excess ABG Hemoglobin Oxyhemoglobin Sodium Potassium Chloride Carbon Dioxide BUN Creatinine Glucose POC Glucose 201 H 139 H 123 H Lactic Acid Uric Acid Calcium Phosphorus Magnesium Ferritin Total Bilirubin AST Lactate Dehydrogenase Total Creatine Kinase C-Reactive Protein Total Protein Albumin TSH Free T3 Index Urine WBC (Auto) Urine Creatinine Salicylates Acetaminophen Valproic Acid SARS-CoV-2 (PCR) 07/17/22 07/17/22 07/17/22 13:30 17:51 23:49 WBC RBC Hgb Hct MCV MCH RDW Plt Count [place] % (Auto) Seg Neutrophils % Seg Neutrophils # PT APTT D-Dimer ABG pH ABG pO2 ABG HCO3 ABG O2 Saturation ABG Base Excess ABG Hemoglobin Oxyhemoglobin Sodium Potassium Chloride Carbon Dioxide BUN Creatinine Glucose POC Glucose 185 H 219 H 133 H Lactic Acid Uric Acid Calcium Phosphorus Magnesium Ferritin Total Bilirubin AST Lactate Dehydrogenase Total Creatine Kinase C-Reactive Protein Total Protein Albumin TSH Free T3 Index Urine WBC (Auto) Urine Creatinine Salicylates Acetaminophen Valproic Acid SARS-CoV-2 (PCR) 07/18/22 07/18/22 07/18/22 04:00 04:00 04:00 WBC 12.2 H RBC 3.34 L Hgb Hct MCV 100 H MCH 33 H RDW Plt Count 113 L [place] % (Auto) Seg Neutrophils % 77.3 H Seg Neutrophils # 9.4 H PT APTT D-Dimer ABG pH 7.508 H ABG pO2 115.9 H ABG HCO3 33.4 H ABG O2 Saturation ABG Base Excess 9.4 H ABG Hemoglobin 11.7 L Oxyhemoglobin Sodium Potassium Chloride Carbon Dioxide 35 H BUN Creatinine 0.4 L Glucose 130 H POC Glucose Lactic Acid Uric Acid Calcium Phosphorus Magnesium Ferritin Total Bilirubin AST Lactate Dehydrogenase Total Creatine Kinase C-Reactive Protein Total Protein Albumin TSH Free T3 Index Urine WBC (Auto) Urine Creatinine Salicylates Acetaminophen Valproic Acid SARS-CoV-2 (PCR) 07/18/22 07/18/22 07/18/22 04:42 12:31 12:31 WBC RBC Hgb Hct MCV MCH RDW Plt Count [place] % (Auto) Seg Neutrophils % Seg Neutrophils # PT APTT D-Dimer ABG pH ABG pO2 ABG HCO3 ABG O2 Saturation ABG Base Excess ABG Hemoglobin Oxyhemoglobin Sodium Potassium Chloride Carbon Dioxide BUN Creatinine Glucose POC Glucose 134 H Lactic Acid Uric Acid Calcium Phosphorus Magnesium Ferritin Total Bilirubin AST Lactate Dehydrogenase Total Creatine Kinase C-Reactive Protein Total Protein Albumin TSH 9.750 H Free T3 Index 1.7 L Urine WBC (Auto) Urine Creatinine Salicylates Acetaminophen Valproic Acid SARS-CoV-2 (PCR) 07/18/22 07/18/22 07/19/22 12:33 17:39 00:43 WBC RBC Hgb Hct MCV MCH RDW Plt Count [place] % (Auto) Seg Neutrophils % Seg Neutrophils # PT APTT D-Dimer ABG pH ABG pO2 ABG HCO3 ABG O2 Saturation ABG Base Excess ABG Hemoglobin Oxyhemoglobin Sodium Potassium Chloride Carbon Dioxide BUN Creatinine Glucose POC Glucose 172 H 164 H 132 H Lactic Acid Uric Acid Calcium Phosphorus Magnesium Ferritin Total Bilirubin AST Lactate Dehydrogenase Total Creatine Kinase C-Reactive Protein Total Protein Albumin TSH Free T3 Index Urine WBC (Auto) Urine Creatinine Salicylates Acetaminophen Valproic Acid SARS-CoV-2 (PCR) 07/19/22 07/19/22 07/19/22 05:08 12:30 17:42 WBC RBC Hgb Hct MCV MCH RDW Plt Count [place] % (Auto) Seg Neutrophils % Seg Neutrophils # PT APTT D-Dimer ABG pH ABG pO2 ABG HCO3 ABG O2 Saturation ABG Base Excess ABG Hemoglobin Oxyhemoglobin Sodium Potassium Chloride Carbon Dioxide BUN Creatinine Glucose POC Glucose 143 H 159 H 139 H Lactic Acid Uric Acid Calcium Phosphorus Magnesium Ferritin Total Bilirubin AST Lactate Dehydrogenase Total Creatine Kinase C-Reactive Protein Total Protein Albumin TSH Free T3 Index Urine WBC (Auto) Urine Creatinine Salicylates Acetaminophen Valproic Acid SARS-CoV-2 (PCR) 07/19/22 07/20/22 07/20/22 23:26 05:30 06:03 WBC RBC Hgb Hct MCV MCH RDW Plt Count [place] % (Auto) Seg Neutrophils % Seg Neutrophils # PT APTT D-Dimer ABG pH 7.503 H ABG pO2 99.1 H ABG HCO3 32.8 H ABG O2 Saturation ABG Base Excess 8.8 H ABG Hemoglobin 9.7 L Oxyhemoglobin Sodium Potassium Chloride Carbon Dioxide BUN Creatinine Glucose POC Glucose 144 H 146 H Lactic Acid Uric Acid Calcium Phosphorus Magnesium Ferritin Total Bilirubin AST Lactate Dehydrogenase Total Creatine Kinase C-Reactive Protein Total Protein Albumin TSH Free T3 Index Urine WBC (Auto) Urine Creatinine Salicylates Acetaminophen Valproic Acid SARS-CoV-2 (PCR) 07/20/22 07/20/22 07/20/22 12:15 17:24 23:44 WBC RBC Hgb Hct MCV MCH RDW Plt Count [place] % (Auto) Seg Neutrophils % Seg Neutrophils # PT APTT D-Dimer ABG pH ABG pO2 ABG HCO3 ABG O2 Saturation ABG Base Excess ABG Hemoglobin Oxyhemoglobin Sodium Potassium Chloride Carbon Dioxide BUN Creatinine Glucose POC Glucose 138 H 135 H 131 H Lactic Acid Uric Acid Calcium Phosphorus Magnesium Ferritin Total Bilirubin AST Lactate Dehydrogenase Total Creatine Kinase C-Reactive Protein Total Protein Albumin TSH Free T3 Index Urine WBC (Auto) Urine Creatinine Salicylates Acetaminophen Valproic Acid SARS-CoV-2 (PCR) 07/21/22 07/21/22 07/21/22 04:00 04:00 05:13 WBC RBC 2.92 L Hgb 9.6 L Hct 29.0 L MCV 99 H MCH 33 H RDW 15.6 H Plt Count 136 L [place] % (Auto) Seg Neutrophils % Seg Neutrophils # PT APTT D-Dimer ABG pH ABG pO2 ABG HCO3 ABG O2 Saturation ABG Base Excess ABG Hemoglobin Oxyhemoglobin Sodium Potassium Chloride Carbon Dioxide 32 H BUN Creatinine 0.3 L Glucose 133 H POC Glucose 142 H Lactic Acid Uric Acid Calcium 8.3 L Phosphorus Magnesium Ferritin Total Bilirubin AST Lactate Dehydrogenase Total Creatine Kinase C-Reactive Protein Total Protein Albumin TSH Free T3 Index Urine WBC (Auto) Urine Creatinine Salicylates Acetaminophen Valproic Acid SARS-CoV-2 (PCR) 07/21/22 07/21/22 07/21/22 06:16 11:48 16:08 WBC RBC Hgb Hct MCV MCH RDW Plt Count [place] % (Auto) Seg Neutrophils % Seg Neutrophils # PT APTT D-Dimer ABG pH ABG pO2 ABG HCO3 ABG O2 Saturation ABG Base Excess ABG Hemoglobin Oxyhemoglobin Sodium Potassium Chloride Carbon Dioxide BUN Creatinine Glucose POC Glucose 149 H 124 H 139 H Lactic Acid Uric Acid Calcium Phosphorus Magnesium Ferritin Total Bilirubin AST Lactate Dehydrogenase Total Creatine Kinase C-Reactive Protein Total Protein Albumin TSH Free T3 Index Urine WBC (Auto) Urine Creatinine Salicylates Acetaminophen Valproic Acid SARS-CoV-2 (PCR) 07/22/22 07/22/22 07/22/22 00:05 04:00 04:13 WBC RBC 2.90 L Hgb 9.5 L Hct 28.9 L MCV 100 H MCH 33 H RDW 15.5 H Plt Count [place] % (Auto) 10.0 H Seg Neutrophils % Seg Neutrophils # PT APTT D-Dimer ABG pH ABG pO2 ABG HCO3 ABG O2 Saturation ABG Base Excess ABG Hemoglobin Oxyhemoglobin Sodium Potassium Chloride Carbon Dioxide 31 H BUN Creatinine 0.4 L Glucose 105 H POC Glucose 143 H Lactic Acid Uric Acid Calcium Phosphorus Magnesium Ferritin Total Bilirubin AST Lactate Dehydrogenase Total Creatine Kinase C-Reactive Protein Total Protein Albumin TSH Free T3 Index Urine WBC (Auto) Urine Creatinine Salicylates Acetaminophen Valproic Acid SARS-CoV-2 (PCR) 07/22/22 07/23/22 07/23/22 11:03 04:25 04:25 WBC RBC 2.71 L Hgb 9.1 L Hct 27.0 L MCV 100 H MCH 33 H RDW 15.4 H Plt Count [place] % (Auto) Seg Neutrophils % Seg Neutrophils # PT APTT D-Dimer ABG pH ABG pO2 ABG HCO3 ABG O2 Saturation ABG Base Excess ABG Hemoglobin Oxyhemoglobin Sodium Potassium Chloride Carbon Dioxide 33 H BUN Creatinine 0.4 L Glucose POC Glucose 111 H Lactic Acid Uric Acid Calcium 8.3 L Phosphorus Magnesium Ferritin Total Bilirubin AST Lactate Dehydrogenase Total Creatine Kinase C-Reactive Protein Total Protein Albumin TSH Free T3 Index Urine WBC (Auto) Urine Creatinine Salicylates Acetaminophen Valproic Acid SARS-CoV-2 (PCR) 07/23/22 07/23/22 07/23/22 06:14 11:09 23:34 WBC RBC Hgb Hct MCV MCH RDW Plt Count [place] % (Auto) Seg Neutrophils % Seg Neutrophils # PT APTT D-Dimer ABG pH ABG pO2 ABG HCO3 ABG O2 Saturation ABG Base Excess ABG Hemoglobin Oxyhemoglobin Sodium Potassium Chloride Carbon Dioxide BUN Creatinine Glucose POC Glucose 106 H 117 H 115 H Lactic Acid Uric Acid Calcium Phosphorus Magnesium Ferritin Total Bilirubin AST Lactate Dehydrogenase Total Creatine Kinase C-Reactive Protein Total Protein Albumin TSH Free T3 Index Urine WBC (Auto) Urine Creatinine Salicylates Acetaminophen Valproic Acid SARS-CoV-2 (PCR) 07/24/22 07/24/22 07/24/22 05:24 11:25 16:52 WBC RBC Hgb Hct MCV MCH RDW Plt Count [place] % (Auto) Seg Neutrophils % Seg Neutrophils # PT APTT D-Dimer ABG pH ABG pO2 ABG HCO3 ABG O2 Saturation ABG Base Excess ABG Hemoglobin Oxyhemoglobin Sodium Potassium Chloride Carbon Dioxide BUN Creatinine Glucose POC Glucose 122 H 139 H 126 H Lactic Acid Uric Acid Calcium Phosphorus Magnesium Ferritin Total Bilirubin AST Lactate Dehydrogenase Total Creatine Kinase C-Reactive Protein Total Protein Albumin TSH Free T3 Index Urine WBC (Auto) Urine Creatinine Salicylates Acetaminophen Valproic Acid SARS-CoV-2 (PCR) 07/25/22 07/25/22 07/25/22 00:10 04:22 04:22 WBC RBC 2.86 L Hgb 9.4 L Hct 28.5 L MCV 100 H MCH 33 H RDW 15.4 H Plt Count [place] % (Auto) Seg Neutrophils % Seg Neutrophils # PT APTT D-Dimer ABG pH ABG pO2 ABG HCO3 ABG O2 Saturation ABG Base Excess ABG Hemoglobin Oxyhemoglobin Sodium Potassium Chloride Carbon Dioxide 31 H BUN Creatinine 0.3 L Glucose 135 H POC Glucose 131 H Lactic Acid Uric Acid Calcium 8.0 L Phosphorus 2.20 L Magnesium Ferritin Total Bilirubin AST Lactate Dehydrogenase Total Creatine Kinase C-Reactive Protein Total Protein Albumin TSH Free T3 Index Urine WBC (Auto) Urine Creatinine Salicylates Acetaminophen Valproic Acid SARS-CoV-2 (PCR) 07/25/22 07/25/22 07/25/22 05:17 11:49 17:27 WBC RBC Hgb Hct MCV MCH RDW Plt Count [place] % (Auto) Seg Neutrophils % Seg Neutrophils # PT APTT D-Dimer ABG pH ABG pO2 ABG HCO3 ABG O2 Saturation ABG Base Excess ABG Hemoglobin Oxyhemoglobin Sodium Potassium Chloride Carbon Dioxide BUN Creatinine Glucose POC Glucose 155 H 140 H 123 H Lactic Acid Uric Acid Calcium Phosphorus Magnesium Ferritin Total Bilirubin AST Lactate Dehydrogenase Total Creatine Kinase C-Reactive Protein Total Protein Albumin TSH Free T3 Index Urine WBC (Auto) Urine Creatinine Salicylates Acetaminophen Valproic Acid SARS-CoV-2 (PCR) 07/25/22 07/26/22 07/26/22 23:57 06:00 06:08 WBC RBC Hgb Hct MCV MCH RDW Plt Count [place] % (Auto) Seg Neutrophils % Seg Neutrophils # PT APTT D-Dimer ABG pH ABG pO2 ABG HCO3 ABG O2 Saturation ABG Base Excess ABG Hemoglobin Oxyhemoglobin Sodium Potassium 3.5 L Chloride Carbon Dioxide 32 H BUN Creatinine 0.3 L Glucose 116 H POC Glucose 124 H 134 H Lactic Acid Uric Acid Calcium 7.9 L Phosphorus Magnesium Ferritin Total Bilirubin AST Lactate Dehydrogenase Total Creatine Kinase C-Reactive Protein Total Protein Albumin TSH Free T3 Index Urine WBC (Auto) Urine Creatinine Salicylates Acetaminophen Valproic Acid SARS-CoV-2 (PCR) 07/26/22 07/26/22 07/26/22 13:38 17:22 23:22 WBC RBC Hgb Hct MCV MCH RDW Plt Count [place] % (Auto) Seg Neutrophils % Seg Neutrophils # PT APTT D-Dimer ABG pH ABG pO2 ABG HCO3 ABG O2 Saturation ABG Base Excess ABG Hemoglobin Oxyhemoglobin Sodium Potassium Chloride Carbon Dioxide BUN Creatinine Glucose POC Glucose 112 H 123 H 117 H Lactic Acid Uric Acid Calcium Phosphorus Magnesium Ferritin Total Bilirubin AST Lactate Dehydrogenase Total Creatine Kinase C-Reactive Protein Total Protein Albumin TSH Free T3 Index Urine WBC (Auto) Urine Creatinine Salicylates Acetaminophen Valproic Acid SARS-CoV-2 (PCR) 07/26/22 07/27/22 07/27/22 Unknown 05:54 10:00 WBC RBC 2.61 L Hgb 8.8 L Hct 26.2 L MCV 100 H MCH 34 H RDW 15.6 H Plt Count [place] % (Auto) Seg Neutrophils % Seg Neutrophils # PT APTT D-Dimer ABG pH ABG pO2 ABG HCO3 ABG O2 Saturation ABG Base Excess ABG Hemoglobin Oxyhemoglobin Sodium Potassium Chloride Carbon Dioxide BUN Creatinine 0.3 L Glucose 125 H POC Glucose 124 H Lactic Acid Uric Acid Calcium 8.3 L Phosphorus 1.90 L Magnesium Ferritin Total Bilirubin AST Lactate Dehydrogenase Total Creatine Kinase C-Reactive Protein Total Protein Albumin TSH Free T3 Index Urine WBC (Auto) Urine Creatinine Salicylates Acetaminophen Valproic Acid SARS-CoV-2 (PCR)
--- NOTE | 2022-07-27 12:42 | Progress Note ---
<GEORGE DAVIS - Last Filed: 07/27/22 17:10> Assessment and Plan Assessment and plan: This is a 76-year-old female with CVA, pulmonary embolism, hypothyroidism and JUJU admitted with electrolyte imbalances, hypoxic respiratory failure and COVID- 19 pneumonia Hospital Course to Date: 07/08: Patient noted to be COVID-positive, started on remdesivir, Decadron, ceftriaxone azithromycin and infectious disease was consulted yesterday. This morning patient is on any sedation, PICC line to be placed. RT to attempt PSV. Started on free water flushes and tube feedings. Continues on D5 half-normal saline. 07/09: Patient remains encephalopathic, not on any sedation. Hypernatremia is improving, on FWF Q4hrs and D5w gtt per Nephro. If hypernatremia continue to improve and patient's mentation is unchanged, will get a repeat CT to r/o intracranial abnormalities. Patient remains afebrile, leukocytosis improved, and VSS. Continue current IV abx per ID. Patient failed PSV trial again today, trevon nue PSV trial as tolerated 07/10: Remains stable on the vent, tolerating PSV trial this am. sodium continue to improve but no change in mental status. D/w CCM will get MRI brain to r/o any intracranial abnormalities, EEG also ordered to r/o seizures. Continue FWF and D5w gtt per Nephro. Continue IV steroids and current IV abx per ID. 07/11: Hypernatremia resolved, mentation is unchanged, remains on low vent setting. EEG noted, and MRI brain pending. Will consult Neurology for further recommendations. Continue daily PSV trial as tolerated. 07/12: Appears more awake this morning but still not following any commands. MRI brain with no acute findings and sodium normalized. Awaiting Neuro consult. Continue daily PSV trial as tolerated. Patient's daughter was updated via phone, all questions and concerns were addressed at this time. Medical records requested from [facility] and [facility]. 07/13: DELMI overnight. Mentation is unchanged, remains stable on the vent. Neurology consult pending. Continue vent adjustment per CCM and daily PSV trial as tolerated. 07/14: Mentation is unchanged, remains afebrile and stable on the vent, VSS. Complete antibiotics course, still on IV steroids X3 more days. ID recommendations noted, remove corbin. Continue daily PSV trial as tolerated. 07/15: DELMI overnight, mentation unchanged, VSS. Patient failed PSV trial this am due to apnea. Continue daily PSV trial as tolerated. Possible trach and Peg per [facility]. 07/16: No acute events overnight, attempted PSV again today. [facility] to have family meeting on 07/17 to discuss trach/PEG 07/17: [facility] will have family meeting tomorrow. Failed PSV again. No acute events overnight. Thrombocytopenia continues to improve 07/18: [facility] held a family meeting today and surgery will be consulted for trach/PEG placement. Family stated that patient had not had her levothyroxine for several months due to decreased p.o. intake, will send thyroid panel. No acute events reported overnight. Hypotension today and 500 mL normal saline bolus given. Possible trach/peg within 2 days 07/19: No acute events reported overnight. Free T4 normal. Failed PSV 07/20: No acute events reported overnight. Patient taken off isolation per ID. Trach/PEG scheduled for Friday. failed PSV 07/21: No acute events reported overnight. Trach/peg for friday. PSV ongoing 07/22: Remains stable, DELMI overnight. Plan for possible Trac/PEG today by general surgery. Continue dailu PSV trial as tolerated. 07/23: s/p trach and PEG, remains stable on low vent setting, recent CXR is unremarkable. VSS. Resume TF once okayed by General Surgery. Continue daily PSV trial as tolerated. Possible LTAC placement, case management to arrange. 07/24: Remains stable on the vent, tolerating TF via Peg. Continue supportive measures and daily PSV trial. Awaiting placement. 07/25: DELMI overnight. Continue supportive measures and daily PSV trial. PT/OT consulted. Awaiting placement, case management to arrange. 07/26: DELMI overnight. Continue supportive measures and daily PSV trial. Awaiting placement, case management to arrange. 07/27: Patient failed PSV trial this am due to periods of apnea. Continue daily PSV trial as tolerated. Awaiting placement, case management to arrange. Assessment and Plan Neuro: Acute metabolic encephalopathy, h/o CVA with hemiplegia, dysphagia, aphasia, dementia -Reorientation as needed -Maintain sleep-wake cycle -Resume home Lipitor -As needed analgesia -CT head shows no acute intracranial hemorrhage, multiple chronic appearing infarcts including left MCA distribution, left cerebral hemisphere and within the right basal ganglia -Depakene -EEG noted -MRI noted -Neurology consult pending Cardiac: h/o HLD -Resume home Lipitor -Blood pressure monitoring per protocol Respiratory: Acute hypoxic respiratory failure, h/o JUJU, pulmonary embolism -CCM consulted, appreciate recommendations -Intubated on 07/07 -07/22 s/p Trach/PEG -A.m. vent settings:PRVC-28%,6,10,400 -See RT notes for titration -A.m. ABG and CXR noted -VAP bundle -SPO2 monitoring GI:TF -07/22 s/p PEGtube placement -PPI -NTR consulted for tube feedings -BR: Senokot-S : Hypernatremia(resolved), hypokalemia, rhabdomyolysis -Nephrology consulted, appreciate recommendations -Monitor intake and output -Free water flush -Renally dose medications -Avoid nephrotoxic medications -Replete potassium -Trend BMP ID: COVID Pneumonia, lactic acidosis -Infectious disease consulted, appreciate recommendation -completed IV antibiotics course -Dexamethasone for 10 days, end 07/17 -Contact/droplet precautions -f/u blood culture -Trend COVID-19 inflammatory markers -Monitor WBC and temperature curve -Prophylactic anticoagulation based on D-dimer per hospital protocol Heme: Thrombocytopenia-improved -Patient presented with low plt -Plt continue to trend down, but less than 50% of admit count -No s/s of any active bleeding, H&H stable -Continue to trend CBC -On Heparin SubQ -Transfuse for plt less than 20 and hgb less than 7 Endo: h/o hypothyroidism -Avoid hypoglycemia -SSI -Accu-Cheks q. 6 -Long-acting insulin, titrate as needed -Resume home Synthroid GI/DVT Prophylaxis -PPI- pepcid -Heparin SubQ -SCDs to bilateral lower extremities while in bed The high probability of a clinically significant, sudden or life threatening deterioration of the [multi] system(s) required my full and direct attention, intervention and personal management. The aggregate critical care time was [60] minutes. This time is in addition to time spent performing reported procedures but includes the following: [x] Data Review and interpretation [x] Patient assessment and monitoring of vital signs [x] Documentation [x] Medication orders and management Disposition Plan: ICU Total Time Spent with Patient (Minutes): 60 History Interval history: Patient seen and examined at the bedside. Remains stable on the vent. VSS. AWAD overnight Hospitalist Physical - Physical exam Narrative exam: General appearance: Present: other (Trached, stable on the vent) - EENT Eyes: Present: PERRL - Respiratory Respiratory effort: normal Respiratory: bilateral: rhonchi - Cardiovascular Rhythm: regular Heart Sounds: Present: S1 & S2 - Extremities Extremities: no ischemia, pulses intact, pulses symmetrical Extremity abnormal: edema - Peripheral Assessment Generalized Edema Type: Non-pitting Edema Degree: 2+ Capillary Refill: < 3 seconds Skin Temperature: Warm Peripheral Pulses: within normal limits - Abdominal General gastrointestinal: soft, non-distended, normal bowel sounds - Integumentary Integumentary: Present: warm, dry - Psychiatric Psychiatric: other (Trached, unresponsive on the vent, not on any sedations) - Neurologic Neurologic: other (Trached, unresponsive, not on any sedations. Open eyes spontaneously, does not track, not following commands, with nonpurposeful movements) - Allied Health Allied health notes reviewed: nursing, case management - Constitutional Vitals: Temp Pulse Resp BP Pulse Ox 98 F 101 H 11 L 107/72 100 07/27/22 12:00 07/27/22 12:13 07/27/22 12:13 07/27/22 11:01 07/27/22 12:13 HEART Score - HEART Score Troponin: Troponin T 0.010 ng/mL (0.00-0.029) 07/07/22 04:17 Results - Labs CBC & Chem 7: 07/26/22 Unknown 07/27/22 10:00 Labs: Laboratory Last Values WBC 6.1 K/mm3 (4.5-11.0) 07/26/22 Unknown RBC 2.61 M/mm3 (3.65-5.03) L 07/26/22 Unknown Hgb 8.8 gm/dl (10.1-14.3) L 07/26/22 Unknown Hct 26.2 % (30.3-42.9) L 07/26/22 Unknown MCV 100 fl (79-97) H 07/26/22 Unknown MCH 34 pg (28-32) H 07/26/22 Unknown MCHC 34 % (30-34) 07/26/22 Unknown RDW 15.6 % (13.2-15.2) H 07/26/22 Unknown Plt Count 193 K/mm3 (140-440) 07/26/22 Unknown Lymph % (Auto) 33.3 % (13.4-35.0) 07/22/22 04:13 Piatt % (Auto) 10.0 % (0.0-7.3) H 07/22/22 04:13 Eos % (Auto) 0.5 % (0.0-4.3) 07/22/22 04:13 Baso % (Auto) 0.1 % (0.0-1.8) 07/22/22 04:13 Lymph # (Auto) 2.1 K/mm3 (1.2-5.4) 07/22/22 04:13 Piatt # (Auto) 0.6 K/mm3 (0.0-0.8) 07/22/22 04:13 Eos # (Auto) 0.0 K/mm3 (0.0-0.4) 07/22/22 04:13 Baso # (Auto) 0.0 K/mm3 (0.0-0.1) 07/22/22 04:13 Seg Neutrophils % 56.1 % (40.0-70.0) 07/22/22 04:13 Seg Neutrophils # 3.6 K/mm3 (1.8-7.7) 07/22/22 04:13 PT 13.0 Sec. (12.2-14.9) 07/22/22 04:13 INR 0.87 (0.87-1.13) 07/22/22 04:13 APTT 23.0 Sec. (24.2-36.6) L 07/07/22 03:38 D-Dimer 925.80 ng/mlDDU (0-234) H 07/12/22 04:00 ABG pH 7.503 pH Units (7.350-7.450) H 07/20/22 05:30 ABG pCO2 42.7 mm Hg 07/20/22 05:30 ABG pO2 99.1 mm Hg (80.0-90.0) H 07/20/22 05:30 ABG HCO3 32.8 mmol/L (20.0-26.0) H 07/20/22 05:30 ABG O2 Saturation 97.8 % (95.0-99.0) 07/20/22 05:30 ABG O2 Content 13.3 (0.0-44) 07/20/22 05:30 ABG Base Excess 8.8 mmol/L (-2.0-3.0) H 07/20/22 05:30 ABG Hemoglobin 9.7 gm/dl (12.0-16.0) L 07/20/22 05:30 ABG Carboxyhemoglobin 1.3 % (0.0-5.0) 07/20/22 05:30 ABG Methemoglobin 0.6 % (0.0-1.5) 07/20/22 05:30 Oxyhemoglobin 95.9 % (95.0-99.0) 07/20/22 05:30 FiO2 28 % 07/20/22 05:30 Sodium 140 mmol/L (137-145) 07/27/22 10:00 Potassium 4.3 mmol/L (3.6-5.0) D 07/27/22 10:00 Chloride 102.2 mmol/L (98-107) 07/27/22 10:00 Carbon Dioxide 30 mmol/L (22-30) 07/27/22 10:00 Anion Gap 12 mmol/L 07/27/22 10:00 BUN 9 mg/dL (7-17) 07/27/22 10:00 Creatinine 0.3 mg/dL (0.6-1.2) L 07/27/22 10:00 Estimated GFR > 60 ml/min 07/27/22 10:00 BUN/Creatinine Ratio 30 % 07/27/22 10:00 Glucose 125 mg/dL (65-100) H 07/27/22 10:00 POC Glucose 124 mg/dL (70-105) H 07/27/22 05:54 Lactic Acid 2.10 mmol/L (0.7-2.0) H* 07/10/22 08:24 Uric Acid 13.5 mg/dL (3.5-7.6) H 07/07/22 04:17 Calcium 8.3 mg/dL (8.4-10.2) L 07/27/22 10:00 Phosphorus 1.90 mg/dL (2.5-4.5) L 07/27/22 10:00 Magnesium 1.70 mg/dL (1.7-2.3) 07/27/22 10:00 Ferritin 519.5 ng/mL (10.0-200.0) H 07/12/22 04:00 Total Bilirubin 0.30 mg/dL (0.1-1.2) 07/10/22 04:21 AST 89 units/L (5-40) H 07/10/22 04:21 ALT 53 units/L (7-56) 07/10/22 04:21 Alkaline Phosphatase 83 units/L (35-129) 07/10/22 04:21 Ammonia 32.0 umol/L (25-60) 07/07/22 04:17 Lactate Dehydrogenase 444 units/L (91-180) H 07/12/22 04:00 Total Creatine Kinase 1745 units/L (30-135) H 07/11/22 05:40 Troponin T 0.010 ng/mL (0.00-0.029) 07/07/22 04:17 C-Reactive Protein 0.30 mg/dL (0.00-1.30) 07/12/22 04:00 Total Protein 4.9 g/dL (6.3-8.2) L 07/10/22 04:21 Albumin 2.5 g/dL (3.9-5) L 07/10/22 04:21 Albumin/Globulin Ratio 1.0 % 07/10/22 04:21 Procalcitonin 0.19 ng/mL (<0.15) 07/08/22 14:54 TSH 9.750 mlU/mL (0.270-4.200) H 07/18/22 12:31 Free T4 0.78 ng/dL (0.76-1.46) 07/18/22 12:31 Thyroxine (T4) 6.2 ug/dL (4.0-12.0) 07/18/22 12:31 Free T3 Index 1.7 pg/mL (2.3-4.2) L 07/18/22 12:31 Total Cortisol 47.9 mcg/dL () 07/07/22 07:43 Urine Color Yellow (Yellow) 07/07/22 03:17 Urine Turbidity Slightly cloudy (Clear) 07/07/22 03:17 Specific [place] (Man) 1.015 (1.003-1.030) 07/07/22 03:17 Ur Protein (Man) 1+ mg/dL (Negative) 07/07/22 03:17 Ur Ketones (Man) Negative (Negative) 07/07/22 03:17 Ur Nitrite (Man) Negative (Negative) 07/07/22 03:17 Urine Bilirubin (Man) Negative (Negative) 07/07/22 03:17 Leukocyte Esterase (Man) Negative (Negative) 07/07/22 03:17 Urine WBC (Auto) 7.0 /HPF (0.0-6.0) H 07/07/22 03:17 Urine RBC (Auto) 1.0 /HPF (0.0-6.0) 07/07/22 03:17 U Epithel Cells (Auto) 4.0 /HPF (0-13.0) 07/07/22 03:17 Urine Bacteria (Auto) 3+ /HPF (Negative) 07/07/22 03:17 Urine RBC (Manual) 3+ (Negative) 07/07/22 03:17 Urine Mucus 3+ /HPF 07/07/22 03:17 Urine Osmolality 744 Mosm/kg 07/07/22 16:45 Urine Creatinine 92.9 mg/dL (0.1-20.0) H 07/07/22 16:45 Urine Sodium 109 mmol/L 07/07/22 16:45 Salicylates < 0.3 mg/dL (2.8-20.0) L 07/07/22 03:38 Urine Opiates Screen Presumptive negative 07/07/22 03:17 Urine Methadone Screen Presumptive negative 07/07/22 03:17 Acetaminophen 5.0 ug/mL (10.0-30.0) L 07/07/22 03:38 Ur Barbiturates Screen Presumptive negative 07/07/22 03:17 Valproic Acid 7.0 ug/mL (50-100) L 07/07/22 03:38 Ur Phencyclidine Scrn Presumptive negative 07/07/22 03:17 Ur Amphetamines Screen Presumptive negative 07/07/22 03:17 U Benzodiazepines Scrn Presumptive negative 07/07/22 03:17 Urine Cocaine Screen Presumptive negative 07/07/22 03:17 U Marijuana (THC) Screen Presumptive negative 07/07/22 03:17 Drugs of Abuse Note Disclamer 07/07/22 03:17 Plasma/Serum Alcohol < 0.01 % (0-0.07) 07/07/22 03:38 SARS-CoV-2 (PCR) Positive (Negative) A 07/07/22 15:00 Corbin/IV: Voiding Method Incontinent Active Medications - Current Medications Current Medications: Generic Name Dose Route Start Last Admin Trade Name Freq PRN Reason Stop Dose Admin Acetaminophen 650 mg 07/13/22 12:00 07/25/22 21:28 Acetaminophen 325 Mg/10.15 Ml Oral Liqd Unit Dose FEEDTUBE 650 mg Q6H PRN Administration Pain MILD(1-3)/Fever >100.5/LEE Atorvastatin Calcium 80 mg 07/10/22 22:00 07/26/22 21:53 Atorvastatin 40 Mg Tab FEEDTUBE 80 mg QHS ERROL Administration Cholecalciferol 1,000 unit 07/10/22 10:00 07/27/22 09:52 Cholecalciferol (Vit D3) 1000 Unit (25 Mcg) Tab FEEDTUBE 1,000 unit QDAY ERROL Administration Dextrose 50 ml 07/09/22 11:42 Dextrose 50% In Water (25gm) 50 Ml Syringe IV Q30MIN PRN Hypoglycemia Protocol Famotidine 20 mg 07/09/22 22:00 07/27/22 09:52 Famotidine 20 Mg Tab FEEDTUBE 20 mg BID ERROL Administration Heparin Sodium (Porcine) 5,000 unit 07/08/22 06:00 07/27/22 06:22 Heparin 5,000 Unit/1 Ml Vial SUB-Q 5,000 unit Q12H ERROL Administration Hydrophilic Ointment 1 applic 07/07/22 02:48 Lip Therapy Vaseline TP Q2HR PRN Dry Lips Insulin Human Lispro 0 unit 07/09/22 12:00 07/27/22 11:11 Insulin Lispro 100 Unit/Ml SUB-Q Not Given Q6HR [facility] Protocol Levothyroxine Sodium 75 mcg 07/11/22 06:00 07/27/22 06:22 Levothyroxine 75 Mcg Tab FEEDTUBE 75 mcg QAM@0600 ERROL Administration Multi-Ingred Cream/Lotion/Oil/Oint 1 applic 07/07/22 02:48 Mineral Oil/Petrolatum, White Ophth Oint 3.5 Gm OU Q4HR PRN Dry Eye(s) Senna/Docusate Sodium 1 tab 07/07/22 10:00 07/27/22 09:52 Sennosides/Docusate Sodium 8.6/50 Mg Tab FEEDTUBE 1 tab BID ERROL Administration Sodium Chloride 10 ml 07/07/22 13:00 07/27/22 09:52 Sodium Chloride 0.9% 10 Ml Flush Syringe IV 10 ml BID ERROL Administration Sodium Chloride 10 ml 07/07/22 12:09 Sodium Chloride 0.9% 10 Ml Flush Syringe IV PRN PRN LINE FLUSH Sodium Phosphate 250 mg 07/27/22 14:00 K-Phos Neutral 250 Mg Tab PO 07/28/22 10:01 QID ERROL Valproic Acid 250 mg 07/10/22 22:00 07/27/22 09:52 Valproic Acid 250 Mg/5 Ml Oral Liqd FEEDTUBE 250 mg Q12H ERROL Administration Nutrition/Malnutrition Assess - Dietary Evaluation Nutrition/Malnutrition Findings: Nutrition Notes Start: 07/07/22 13:24 Freq: Status: Active Protocol: Document 07/24/22 09:24 DAREN (Rec: 07/24/22 09:53 DAREN [email or web address]) Nutrition Notes Initial or Follow up Reassessment Current Diagnosis Respiratory Failure,Stroke, Hyperlipidemia Other Pertinent Diagnosis COVID-19, Metabolic Encephalopathy, Pulmonary Embolism, Dementia. Current Diet TF-Vital AF 1.2 Jameson @ 50 ml/hr (from D 07/12). Labs/Tests 07/24: CO2 33, Crea 0.4, Ca 8. 3. Pertinent Medications 07/24: Vit D3, D5w @ 50ml/hr, Levothyroxine, others nutritionally unremarkable. Height 5 ft 6 in Weight 96.2 kg [place] Body Weight (kg) 59.09 BMI 34.2 Weight change and time frame 0.946 Kg body weight gain in 1 week reported. Weight Status Obese Subjective/Other Information RD consult for routine F/U on TF tolerance/continuation assessment. TF continues as prescribed, and well tolerated, according to RN notes. Pt continues on Mechanical Ventilation, O2 saturation @ 98%, according to Physical Assessment History notes. Procedure on 07/22: Percutaneous Tracheostomy and EGD w/PEG-tube placement, well tolerated. according to Operative Report notes. TF resumed on 07/23, after PEG -tube placement, according to Progress notes. Possible discharge to LTAC facility, according to Progress notes. Percent of energy/protein needs met: Prescribed TF-Vital AF 1.2 Jameson @ 50 ml/hr provides for energy/protein needs (1,440 Kcal/90 g) during LOS, 101% Kcal, 91% AA. Burn Absent Trauma Absent GI Symptoms Other Difficulty In Swallowing,Chewing Food Allergy No Skin Integrity/Comment Assessment WNL. Current % PO Other Minimum of two criteria Yes Energy Intake (non-severe) <75% Estimated Energy Requirement >7 days Interpretation of Weight Loss (non- 5% in 1 month severe) Fluid Accumulation N/A Protein-Calorie Malnutrition Non-Severe #2 Nutrition Diagnosis Malnutrition Comments: TF continues as prescribed, and well tolerated, according to RN notes. Diagnosis Progress(for reassessment Improved documentation) #1 Nutrition Diagnosis Inadequate oral intake Comments: Procedure on 07/22: Percutaneous Tracheostomy and EGD w/PEG-tube placement, well tolerated. according to Operative Report notes. TF resumed on 07/23, after PEG -tube placement, according to Progress notes. Diagnosis Progress(for reassessment Continues documentation) Is patient on ventilator? Yes Is Patient Ambulatory and/or Out of Bed No REE-([facility]-confined to bed) 1774.548 Kcal/Kg value to use for calculation 15 Approximate Energy Requirements Using 1443 kcal/Kg Calculation Used for Recommendations Kcal/kg Additional Notes Protein: 1.3 g/Kg AdjBW; 101 g /day. Fluids: 1 ml/Kcal, or as per MD. Nutrition Intervention Nutrition Support: Continue TF-Vital AF 1.2 Jameson @ 50 ml/hr. Flush: 75 ml water Q 4 hr, or as per MD. Kcal 1,440 Protein (gm) 90 Carbohydrates (gm) 133 Fat (gm) 65 Fluid (mL) 973 Fiber (gm) 6 % RDI: 101% Kcal; 91% AA. Goal #1 Provide at least 75% of energy /protein needs through Enteral Feeding during LOS. Follow-Up By: 08/07/22 Additional Comments Continue monitoring TF tolerance, ventilation status, and BM. <ANAHI ANGELES - Last Filed: 07/28/22 12:34> Assessment and Plan Assessment and plan: I saw and evaluated the patient. I agree with the findings and the plan of care as documented in the Nurse Practitioner's~note, with the following corrections and additions. Hospitalist Physical - Constitutional Vitals: Temp Pulse Resp BP Pulse Ox 99.3 F 101 H 10 L 101/54 99 07/28/22 11:39 07/28/22 11:00 07/28/22 11:00 07/28/22 11:00 07/28/22 11:00 HEART Score - HEART Score Troponin: Troponin T 0.010 ng/mL (0.00-0.029) 07/07/22 04:17 Results - Labs CBC & Chem 7: 07/26/22 Unknown 07/27/22 10:00 Labs: Laboratory Last Values WBC 6.1 K/mm3 (4.5-11.0) 07/26/22 Unknown RBC 2.61 M/mm3 (3.65-5.03) L 07/26/22 Unknown Hgb 8.8 gm/dl (10.1-14.3) L 07/26/22 Unknown Hct 26.2 % (30.3-42.9) L 07/26/22 Unknown MCV 100 fl (79-97) H 07/26/22 Unknown MCH 34 pg (28-32) H 07/26/22 Unknown MCHC 34 % (30-34) 07/26/22 Unknown RDW 15.6 % (13.2-15.2) H 07/26/22 Unknown Plt Count 193 K/mm3 (140-440) 07/26/22 Unknown Lymph % (Auto) 33.3 % (13.4-35.0) 07/22/22 04:13 Piatt % (Auto) 10.0 % (0.0-7.3) H 07/22/22 04:13 Eos % (Auto) 0.5 % (0.0-4.3) 07/22/22 04:13 Baso % (Auto) 0.1 % (0.0-1.8) 07/22/22 04:13 Lymph # (Auto) 2.1 K/mm3 (1.2-5.4) 07/22/22 04:13 Piatt # (Auto) 0.6 K/mm3 (0.0-0.8) 07/22/22 04:13 Eos # (Auto) 0.0 K/mm3 (0.0-0.4) 07/22/22 04:13 Baso # (Auto) 0.0 K/mm3 (0.0-0.1) 07/22/22 04:13 Seg Neutrophils % 56.1 % (40.0-70.0) 07/22/22 04:13 Seg Neutrophils # 3.6 K/mm3 (1.8-7.7) 07/22/22 04:13 PT 13.0 Sec. (12.2-14.9) 07/22/22 04:13 INR 0.87 (0.87-1.13) 07/22/22 04:13 APTT 23.0 Sec. (24.2-36.6) L 07/07/22 03:38 D-Dimer 925.80 ng/mlDDU (0-234) H 07/12/22 04:00 ABG pH 7.503 pH Units (7.350-7.450) H 07/20/22 05:30 ABG pCO2 42.7 mm Hg 07/20/22 05:30 ABG pO2 99.1 mm Hg (80.0-90.0) H 07/20/22 05:30 ABG HCO3 32.8 mmol/L (20.0-26.0) H 07/20/22 05:30 ABG O2 Saturation 97.8 % (95.0-99.0) 07/20/22 05:30 ABG O2 Content 13.3 (0.0-44) 07/20/22 05:30 ABG Base Excess 8.8 mmol/L (-2.0-3.0) H 07/20/22 05:30 ABG Hemoglobin 9.7 gm/dl (12.0-16.0) L 07/20/22 05:30 ABG Carboxyhemoglobin 1.3 % (0.0-5.0) 07/20/22 05:30 ABG Methemoglobin 0.6 % (0.0-1.5) 07/20/22 05:30 Oxyhemoglobin 95.9 % (95.0-99.0) 07/20/22 05:30 FiO2 28 % 07/20/22 05:30 Sodium 140 mmol/L (137-145) 07/27/22 10:00 Potassium 4.3 mmol/L (3.6-5.0) D 07/27/22 10:00 Chloride 102.2 mmol/L (98-107) 07/27/22 10:00 Carbon Dioxide 30 mmol/L (22-30) 07/27/22 10:00 Anion Gap 12 mmol/L 07/27/22 10:00 BUN 9 mg/dL (7-17) 07/27/22 10:00 Creatinine 0.3 mg/dL (0.6-1.2) L 07/27/22 10:00 Estimated GFR > 60 ml/min 07/27/22 10:00 BUN/Creatinine Ratio 30 % 07/27/22 10:00 Glucose 125 mg/dL (65-100) H 07/27/22 10:00 POC Glucose 127 mg/dL (70-105) H 07/28/22 05:37 Lactic Acid 2.10 mmol/L (0.7-2.0) H* 07/10/22 08:24 Uric Acid 13.5 mg/dL (3.5-7.6) H 07/07/22 04:17 Calcium 8.3 mg/dL (8.4-10.2) L 07/27/22 10:00 Phosphorus 1.90 mg/dL (2.5-4.5) L 07/27/22 10:00 Magnesium 1.70 mg/dL (1.7-2.3) 07/27/22 10:00 Ferritin 519.5 ng/mL (10.0-200.0) H 07/12/22 04:00 Total Bilirubin 0.30 mg/dL (0.1-1.2) 07/10/22 04:21 AST 89 units/L (5-40) H 07/10/22 04:21 ALT 53 units/L (7-56) 07/10/22 04:21 Alkaline Phosphatase 83 units/L (35-129) 07/10/22 04:21 Ammonia 32.0 umol/L (25-60) 07/07/22 04:17 Lactate Dehydrogenase 444 units/L (91-180) H 07/12/22 04:00 Total Creatine Kinase 1745 units/L (30-135) H 07/11/22 05:40 Troponin T 0.010 ng/mL (0.00-0.029) 07/07/22 04:17 C-Reactive Protein 0.30 mg/dL (0.00-1.30) 07/12/22 04:00 Total Protein 4.9 g/dL (6.3-8.2) L 07/10/22 04:21 Albumin 2.5 g/dL (3.9-5) L 07/10/22 04:21 Albumin/Globulin Ratio 1.0 % 07/10/22 04:21 Procalcitonin 0.19 ng/mL (<0.15) 07/08/22 14:54 TSH 9.750 mlU/mL (0.270-4.200) H 07/18/22 12:31 Free T4 0.78 ng/dL (0.76-1.46) 07/18/22 12:31 Thyroxine (T4) 6.2 ug/dL (4.0-12.0) 07/18/22 12: Free T3 Index 1.7 pg/mL (2.3-4.2) L 07/18/22 12:31 Total Cortisol 47.9 mcg/dL () 07/07/22 07:43 Urine Color Yellow (Yellow) 07/07/22 03:17 Urine Turbidity Slightly cloudy (Clear) 07/07/22 03:17 Specific [place] (Man) 1.015 (1.003-1.030) 07/07/22 03:17 Ur Protein (Man) 1+ mg/dL (Negative) 07/07/22 03:17 Ur Ketones (Man) Negative (Negative) 07/07/22 03:17 Ur Nitrite (Man) Negative (Negative) 07/07/22 03:17 Urine Bilirubin (Man) Negative (Negative) 07/07/22 03:17 Leukocyte Esterase (Man) Negative (Negative) 07/07/22 03:17 Urine WBC (Auto) 7.0 /HPF (0.0-6.0) H 07/07/22 03:17 Urine RBC (Auto) 1.0 /HPF (0.0-6.0) 07/07/22 03:17 U Epithel Cells (Auto) 4.0 /HPF (0-13.0) 07/07/22 03:17 Urine Bacteria (Auto) 3+ /HPF (Negative) 07/07/22 03:17 Urine RBC (Manual) 3+ (Negative) 07/07/22 03:17 Urine Mucus 3+ /HPF 07/07/22 03:17 Urine Osmolality 744 Mosm/kg 07/07/22 16:45 Urine Creatinine 92.9 mg/dL (0.1-20.0) H 07/07/22 16:45 Urine Sodium 109 mmol/L 07/07/22 16:45 Salicylates < 0.3 mg/dL (2.8-20.0) L 07/07/22 03:38 Urine Opiates Screen Presumptive negative 07/07/22 03:17 Urine Methadone Screen Presumptive negative 07/07/22 03:17 Acetaminophen 5.0 ug/mL (10.0-30.0) L 07/07/22 03:38 Ur Barbiturates Screen Presumptive negative 07/07/22 03:17 Valproic Acid 7.0 ug/mL (50-100) L 07/07/22 03:38 Ur Phencyclidine Scrn Presumptive negative 07/07/22 03:17 Ur Amphetamines Screen Presumptive negative 07/07/22 03:17 U Benzodiazepines Scrn Presumptive negative 07/07/22 03:17 Urine Cocaine Screen Presumptive negative 07/07/22 03:17 U Marijuana (THC) Screen Presumptive negative 07/07/22 03:17 Drugs of Abuse Note Disclamer 07/07/22 03:17 Plasma/Serum Alcohol < 0.01 % (0-0.07) 07/07/22 03:38 SARS-CoV-2 (PCR) Positive (Negative) A 07/07/22 15:00 [place]/IV: Voiding Method External Female Catheter Active Medications - Current Medications Current Medications: Generic Name Dose Route Start Last Admin Trade Name Freq PRN Reason Stop Dose Admin Acetaminophen 650 mg 07/13/22 12:00 07/25/22 21:28 Acetaminophen 325 Mg/10.15 Ml Oral Liqd Unit Dose FEEDTUBE 650 mg Q6H PRN Administration Pain MILD(1-3)/Fever >100.5/LEE Atorvastatin Calcium 80 mg 07/10/22 22:00 07/27/22 21:33 Atorvastatin 40 Mg Tab FEEDTUBE 80 mg QHS ERROL Administration Cholecalciferol 1,000 unit 07/10/22 10:00 07/28/22 10:42 Cholecalciferol (Vit D3) 1000 Unit (25 Mcg) Tab FEEDTUBE 1,000 unit QDAY ERROL Administration Dextrose 50 ml 07/09/22 11:42 Dextrose 50% In Water (25gm) 50 Ml Syringe IV Q30MIN PRN Hypoglycemia Protocol Famotidine 20 mg 07/09/22 22:00 07/28/22 10:42 Famotidine 20 Mg Tab FEEDTUBE 20 mg BID ERROL Administration Heparin Sodium (Porcine) 5,000 unit 07/08/22 06:00 07/28/22 06:13 Heparin 5,000 Unit/1 Ml Vial SUB-Q 5,000 unit Q12H ERROL Administration Hydrophilic Ointment 1 applic 07/07/22 02:48 Lip Therapy Vaseline TP Q2HR PRN Dry Lips Insulin Human Lispro 0 unit 07/09/22 12:00 07/28/22 11:57 Insulin Lispro 100 Unit/Ml SUB-Q Not Given Q6HR ERROL Protocol Levothyroxine Sodium 75 mcg 07/11/22 06:00 07/28/22 06:13 Levothyroxine 75 Mcg Tab FEEDTUBE 75 mcg QAM@0600 ERROL Administration Multi-Ingred Cream/Lotion/Oil/Oint 1 applic 07/07/22 02:48 Mineral Oil/Petrolatum, White Ophth Oint 3.5 Gm OU Q4HR PRN Dry Eye(s) Senna/Docusate Sodium 1 tab 07/07/22 10:00 07/28/22 10:42 Sennosides/Docusate Sodium 8.6/50 Mg Tab FEEDTUBE 1 tab BID ERROL Administration Sodium Chloride 10 ml 07/07/22 13:00 07/28/22 10:42 Sodium Chloride 0.9% 10 Ml Flush Syringe IV 10 ml BID ERROL Administration Sodium Chloride 10 ml 07/07/22 12:09 Sodium Chloride 0.9% 10 Ml Flush Syringe IV PRN PRN LINE FLUSH Valproic Acid 250 mg 07/10/22 22:00 07/28/22 10:44 Valproic Acid 250 Mg/5 Ml Oral Liqd FEEDTUBE 250 mg Q12H ERROL Administration Nutrition/Malnutrition Assess - Dietary Evaluation Nutrition/Malnutrition Findings: Nutrition Notes Start: 07/07/22 13:24 Freq: Status: Active Protocol: Document 07/24/22 09:24 DAREN (Rec: 07/24/22 09:53 DAREN [id number]) Nutrition Notes Initial or Follow up Reassessment Current Diagnosis Respiratory Failure,Stroke, Hyperlipidemia Other Pertinent Diagnosis COVID-19, Metabolic Encephalopathy, Pulmonary Embolism, Dementia. Current Diet TF-Vital AF 1.2 Jameson @ 50 ml/hr (from D 07/12). Labs/Tests 07/24: CO2 33, Crea 0.4, Ca 8. 3. Pertinent Medications 07/24: Vit D3, D5w @ 50ml/hr, Levothyroxine, others nutritionally unremarkable. Height 5 ft 6 in Weight 96.2 kg [place] Body Weight (kg) 59.09 BMI 34.2 Weight change and time frame 0.946 Kg body weight gain in 1 week reported. Weight Status Obese Subjective/Other Information RD consult for routine F/U on TF tolerance/continuation assessment. TF continues as prescribed, and well tolerated, according to RN notes. Pt continues on Mechanical Ventilation, O2 saturation @ 98%, according to Physical Assessment History notes. Procedure on 07/22: Percutaneous Tracheostomy and EGD w/PEG-tube placement, well tolerated. according to Operative Report notes. TF resumed on 07/23, after PEG -tube placement, according to Progress notes. Possible discharge to LTAC facility, according to [facility] notes. Percent of energy/protein needs met: Prescribed TF-Vital AF 1.2 James[place] @ 50 ml/hr provides for energy/protein needs (1,440 Kcal/90 g) during LOS, 101% Kcal, 91% AA. Burn Absent Trauma Absent GI Symptoms Other Difficulty In Swallowing,Chewing Food Allergy No Skin Integrity/Comment Assessment WNL. Current % PO Other Minimum of two criteria Yes Energy Intake (non-severe) <75% Estimated Energy Requirement >7 days Interpretation of Weight Loss (non- 5% in 1 month severe) Fluid Accumulation N/A Protein-Calorie Malnutrition Non-Severe #2 Nutrition Diagnosis Malnutrition Comments: TF continues as prescribed, and well tolerated, according to RN notes. Diagnosis Progress(for reassessment Improved documentation) #1 Nutrition Diagnosis Inadequate oral intake Comments: Procedure on 07/22: Percutaneous Tracheostomy and EGD w/PEG-tube placement, well tolerated. according to Operative Report notes. TF resumed on 07/23, after PEG -tube placement, according to Progress notes. Diagnosis Progress(for reassessment Continues documentation) Is patient on ventilator? Yes Is Patient Ambulatory and/or Out of Bed No REE-([facility]-confined to bed) 1774.548 Kcal/Kg value to use for calculation 15 Approximate Energy Requirements Using 1443 kcal/Kg Calculation Used for Recommendations Kcal/kg Additional Notes Protein: 1.3 g/Kg AdjBW; 101 g /day. Fluids: 1 ml/Kcal, or as per MD. Nutrition Intervention Nutrition Support: Continue TF-Vital AF 1.2 Jameson @ 50 ml/hr. Flush: 75 ml water Q 4 hr, or as per MD. Kcal 1,440 Protein (gm) 90 Carbohydrates (gm) 133 Fat (gm) 65 Fluid (mL) 973 Fiber (gm) 6 % RDI: 101% Kcal; 91% AA. Goal #1 Provide at least 75% of energy /protein needs through Enteral Feeding during LOS. Follow-Up By: 08/07/22 Additional Comments Continue monitoring TF tolerance, ventilation status, and BM.
[2022-07-27] MEDS: K-PHOS NEUTRAL 250 MG TAB PO SCH ×3 (16:10→21:33)
[2022-07-28] MEDS: INSULIN LISPRO 100 UNIT/ML SUB-Q SCH ×4 (00:37→17:01)
[2022-07-28] MEDS: HEPARIN 5,000 UNIT/1 ML VIAL SUB-Q SCH ×2 (06:13→17:21)
[2022-07-28] MEDS: LEVOTHYROXINE 75 MCG TAB FEEDTUBE SCH (06:13)
[2022-07-28] MEDS: K-PHOS NEUTRAL 250 MG TAB PO SCH (10:42)
[2022-07-28] MEDS: SENNOSIDES/DOCUSATE SODIUM 8.6/50 MG TAB FEEDTUBE SCH ×2 (10:42→21:56)
[2022-07-28] MEDS: FAMOTIDINE 20 MG TAB FEEDTUBE SCH ×2 (10:42→21:56)
[2022-07-28] MEDS: CHOLECALCIFEROL (VIT D3) 1000 UNIT (25 mcg) TAB FEEDTUBE SCH (10:42)
[2022-07-28] MEDS: VALPROIC ACID 250 MG/5 ML ORAL LIQD FEEDTUBE SCH ×2 (10:44→21:56)
--- NOTE | 2022-07-28 11:35 | Progress Note ---
<GEORGE DAVIS - Last Filed: 07/28/22 16:11> Assessment and Plan Assessment and plan: This is a 76-year-old female with CVA, pulmonary embolism, hypothyroidism and JUJU admitted with electrolyte imbalances, hypoxic respiratory failure and COVID- 19 pneumonia Hospital Course to Date: 07/08: Patient noted to be COVID-positive, started on remdesivir, Decadron, ceftriaxone azithromycin and infectious disease was consulted yesterday. This morning patient is on any sedation, PICC line to be placed. RT to attempt PSV. Started on free water flushes and tube feedings. Continues on D5 half-normal saline. 07/09: Patient remains encephalopathic, not on any sedation. Hypernatremia is improving, on FWF Q4hrs and D5w gtt per Nephro. If hypernatremia continue to improve and patient's mentation is unchanged, will get a repeat CT to r/o intracranial abnormalities. Patient remains afebrile, leukocytosis improved, and VSS. Continue current IV abx per ID. Patient failed PSV trial again today, trevon nue PSV trial as tolerated 07/10: Remains stable on the vent, tolerating PSV trial this am. sodium continue to improve but no change in mental status. D/w CCM will get MRI brain to r/o any intracranial abnormalities, EEG also ordered to r/o seizures. Continue FWF and D5w gtt per Nephro. Continue IV steroids and current IV abx per ID. 07/11: Hypernatremia resolved, mentation is unchanged, remains on low vent setting. EEG noted, and MRI brain pending. Will consult Neurology for further recommendations. Continue daily PSV trial as tolerated. 07/12: Appears more awake this morning but still not following any commands. MRI brain with no acute findings and sodium normalized. Awaiting Neuro consult. Continue daily PSV trial as tolerated. Patient's daughter was updated via phone, all questions and concerns were addressed at this time. Medical records requested from [facility] and [facility]. 07/13: DELMI overnight. Mentation is unchanged, remains stable on the vent. Neurology consult pending. Continue vent adjustment per CCM and daily PSV trial as tolerated. 07/14: Mentation is unchanged, remains afebrile and stable on the vent, VSS. Complete antibiotics course, still on IV steroids X3 more days. ID recommendations noted, remove corbin. Continue daily PSV trial as tolerated. 07/15: DELMI overnight, mentation unchanged, VSS. Patient failed PSV trial this am due to apnea. Continue daily PSV trial as tolerated. Possible trach and Peg per [facility]. 07/16: No acute events overnight, attempted PSV again today. [facility] to have family meeting on 07/17 to discuss trach/PEG 07/17: [facility] will have family meeting tomorrow. Failed PSV again. No acute events overnight. Thrombocytopenia continues to improve 07/18: [facility] held a family meeting today and surgery will be consulted for trach/PEG placement. Family stated that patient had not had her levothyroxine for several months due to decreased p.o. intake, will send thyroid panel. No acute events reported overnight. Hypotension today and 500 mL normal saline bolus given. Possible trach/peg within 2 days 07/19: No acute events reported overnight. Free T4 normal. Failed PSV 07/20: No acute events reported overnight. Patient taken off isolation per ID. Trach/PEG scheduled for Friday. failed PSV 07/21: No acute events reported overnight. Trach/peg for friday. PSV ongoing 07/22: Remains stable, DELMI overnight. Plan for possible Trac/PEG today by general surgery. Continue dailu PSV trial as tolerated. 07/23: s/p trach and PEG, remains stable on low vent setting, recent CXR is unremarkable. VSS. Resume TF once okayed by General Surgery. Continue daily PSV trial as tolerated. Possible LTAC placement, case management to arrange. 07/24: Remains stable on the vent, tolerating TF via Peg. Continue supportive measures and daily PSV trial. Awaiting placement. 07/25: DELMI overnight. Continue supportive measures and daily PSV trial. PT/OT consulted. Awaiting placement, case management to arrange. 07/26: DELMI overnight. Continue supportive measures and daily PSV trial. Awaiting placement, case management to arrange. 07/27: Patient failed PSV trial this am due to periods of apnea. Continue daily PSV trial as tolerated. Awaiting placement, case management to arrange. 07/28: DELMI overnight. Continue daily PSV trial as tolerated. Awaiting placement, case management to arrange. Assessment and Plan Neuro: Acute metabolic encephalopathy, h/o CVA with hemiplegia, dysphagia, aphasia, dementia -Reorientation as needed -Maintain sleep-wake cycle -Resume home Lipitor -As needed analgesia -CT head shows no acute intracranial hemorrhage, multiple chronic appearing infarcts including left MCA distribution, left cerebral hemisphere and within the right basal ganglia -Depakene -EEG noted -MRI noted -Neurology consult pending Cardiac: h/o HLD -Resume home Lipitor -Blood pressure monitoring per protocol Respiratory: Acute hypoxic respiratory failure, h/o JUJU, pulmonary embolism -CCM consulted, appreciate recommendations -Intubated on 07/07 -07/22 s/p Trach/PEG -A.m. vent settings:PRVC-28%,6,10,400 -See RT notes for titration -A.m. ABG and CXR noted -VAP bundle -SPO2 monitoring GI:TF -07/22 s/p PEGtube placement -PPI -NTR consulted for tube feedings -BR: Senokot-S : Hypernatremia(resolved), hypokalemia, rhabdomyolysis -Nephrology consulted, appreciate recommendations -Monitor intake and output -Free water flush -Renally dose medications -Avoid nephrotoxic medications -Replete potassium -Trend BMP ID: COVID Pneumonia, lactic acidosis -Infectious disease consulted, appreciate recommendation -completed IV antibiotics course -Dexamethasone for 10 days, end 07/17 -Contact/droplet precautions -f/u blood culture -Trend COVID-19 inflammatory markers -Monitor WBC and temperature curve -Prophylactic anticoagulation based on D-dimer per hospital protocol Heme: Thrombocytopenia-improved -Patient presented with low plt -Plt continue to trend down, but less than 50% of admit count -No s/s of any active bleeding, H&H stable -Continue to trend CBC -On Heparin SubQ -Transfuse for plt less than 20 and hgb less than 7 Endo: h/o hypothyroidism -Avoid hypoglycemia -SSI -Accu-Cheks q. 6 -Long-acting insulin, titrate as needed -Resume home Synthroid GI/DVT Prophylaxis -PPI- pepcid -Heparin SubQ -SCDs to bilateral lower extremities while in bed The high probability of a clinically significant, sudden or life threatening deterioration of the [multi] system(s) required my full and direct attention, intervention and personal management. The aggregate critical care time was [60] minutes. This time is in addition to time spent performing reported procedures but includes the following: [x] Data Review and interpretation [x] Patient assessment and monitoring of vital signs [x] Documentation [x] Medication orders and management Disposition Plan: ICU Total Time Spent with Patient (Minutes): 60 History Interval history: Patient seen and examined at the bedside. Remains stable on the vent. VSS. AWAD overnight Hospitalist Physical - Physical exam Narrative exam: General appearance: Present: other (Trached, stable on the vent) - EENT Eyes: Present: PERRL - Respiratory Respiratory effort: normal Respiratory: bilateral: rhonchi - Cardiovascular Rhythm: regular Heart Sounds: Present: S1 & S2 - Extremities Extremities: no ischemia, pulses intact, pulses symmetrical Extremity abnormal: edema - Peripheral Assessment Generalized Edema Type: Non-pitting Edema Degree: 2+ Capillary Refill: < 3 seconds Skin Temperature: Warm Peripheral Pulses: within normal limits - Abdominal General gastrointestinal: soft, non-distended, normal bowel sounds - Integumentary Integumentary: Present: warm, dry - Psychiatric Psychiatric: other (Trached, unresponsive on the vent, not on any sedations) - Neurologic Neurologic: other (Trached, unresponsive, not on any sedations. Open eyes spontaneously, does not track, not following commands, with nonpurposeful movements) - Allied Health Allied health notes reviewed: nursing, case management - Constitutional Vitals: Temp Pulse Resp BP Pulse Ox 98.6 F 101 H 10 L 101/54 99 07/28/22 07:15 07/28/22 11:00 07/28/22 11:00 07/28/22 11:00 07/28/22 11:00 HEART Score - HEART Score Troponin: Troponin T 0.010 ng/mL (0.00-0.029) 07/07/22 04:17 Results - Labs CBC & Chem 7: 07/26/22 Unknown 07/27/22 10:00 Labs: Laboratory Last Values WBC 6.1 K/mm3 (4.5-11.0) 07/26/22 Unknown RBC 2.61 M/mm3 (3.65-5.03) L 07/26/22 Unknown Hgb 8.8 gm/dl (10.1-14.3) L 07/26/22 Unknown Hct 26.2 % (30.3-42.9) L 07/26/22 Unknown MCV 100 fl (79-97) H 07/26/22 Unknown MCH 34 pg (28-32) H 07/26/22 Unknown MCHC 34 % (30-34) 07/26/22 Unknown RDW 15.6 % (13.2-15.2) H 07/26/22 Unknown Plt Count 193 K/mm3 (140-440) 07/26/22 Unknown Lymph % (Auto) 33.3 % (13.4-35.0) 07/22/22 04:13 Hubbard % (Auto) 10.0 % (0.0-7.3) H 07/22/22 04:13 Eos % (Auto) 0.5 % (0.0-4.3) 07/22/22 04:13 Baso % (Auto) 0.1 % (0.0-1.8) 07/22/22 04:13 Lymph # (Auto) 2.1 K/mm3 (1.2-5.4) 07/22/22 04:13 Hubbard # (Auto) 0.6 K/mm3 (0.0-0.8) 07/22/22 04:13 Eos # (Auto) 0.0 K/mm3 (0.0-0.4) 07/22/22 04:13 Baso # (Auto) 0.0 K/mm3 (0.0-0.1) 07/22/22 04:13 Seg Neutrophils % 56.1 % (40.0-70.0) 07/22/22 04:13 Seg Neutrophils # 3.6 K/mm3 (1.8-7.7) 07/22/22 04:13 PT 13.0 Sec. (12.2-14.9) 07/22/22 04:13 INR 0.87 (0.87-1.13) 07/22/22 04:13 APTT 23.0 Sec. (24.2-36.6) L 07/07/22 03:38 D-Dimer 925.80 ng/mlDDU (0-234) H 07/12/22 04:00 ABG pH 7.503 pH Units (7.350-7.450) H 07/20/22 05:30 ABG pCO2 42.7 mm Hg 07/20/22 05:30 ABG pO2 99.1 mm Hg (80.0-90.0) H 07/20/22 05:30 ABG HCO3 32.8 mmol/L (20.0-26.0) H 07/20/22 05:30 ABG O2 Saturation 97.8 % (95.0-99.0) 07/20/22 05:30 ABG O2 Content 13.3 (0.0-44) 07/20/22 05:30 ABG Base Excess 8.8 mmol/L (-2.0-3.0) H 07/20/22 05:30 ABG Hemoglobin 9.7 gm/dl (12.0-16.0) L 07/20/22 05:30 ABG Carboxyhemoglobin 1.3 % (0.0-5.0) 07/20/22 05:30 ABG Methemoglobin 0.6 % (0.0-1.5) 07/20/22 05:30 Oxyhemoglobin 95.9 % (95.0-99.0) 07/20/22 05:30 FiO2 28 % 07/20/22 05:30 Sodium 140 mmol/L (137-145) 07/27/22 10:00 Potassium 4.3 mmol/L (3.6-5.0) D 07/27/22 10:00 Chloride 102.2 mmol/L (98-107) 07/27/22 10:00 Carbon Dioxide 30 mmol/L (22-30) 07/27/22 10:00 Anion Gap 12 mmol/L 07/27/22 10:00 BUN 9 mg/dL (7-17) 07/27/22 10:00 Creatinine 0.3 mg/dL (0.6-1.2) L 07/27/22 10:00 Estimated GFR > 60 ml/min 07/27/22 10:00 BUN/Creatinine Ratio 30 % 07/27/22 10:00 Glucose 125 mg/dL (65-100) H 07/27/22 10:00 POC Glucose 127 mg/dL (70-105) H 07/28/22 05:37 Lactic Acid 2.10 mmol/L (0.7-2.0) H* 07/10/22 08:24 Uric Acid 13.5 mg/dL (3.5-7.6) H 07/07/22 04:17 Calcium 8.3 mg/dL (8.4-10.2) L 07/27/22 10:00 Phosphorus 1.90 mg/dL (2.5-4.5) L 07/27/22 10:00 Magnesium 1.70 mg/dL (1.7-2.3) 07/27/22 10:00 Ferritin 519.5 ng/mL (10.0-200.0) H 07/12/22 04:00 Total Bilirubin 0.30 mg/dL (0.1-1.2) 07/10/22 04:21 AST 89 units/L (5-40) H 07/10/22 04:21 ALT 53 units/L (7-56) 07/10/22 04:21 Alkaline Phosphatase 83 units/L (35-129) 07/10/22 04:21 Ammonia 32.0 umol/L (25-60) 07/07/22 04:17 Lactate Dehydrogenase 444 units/L (91-180) H 07/12/22 04:00 Total Creatine Kinase 1745 units/L (30-135) H 07/11/22 05:40 Troponin T 0.010 ng/mL (0.00-0.029) 07/07/22 04:17 C-Reactive Protein 0.30 mg/dL (0.00-1.30) 07/12/22 04:00 Total Protein 4.9 g/dL (6.3-8.2) L 07/10/22 04:21 Albumin 2.5 g/dL (3.9-5) L 07/10/22 04:21 Albumin/Globulin Ratio 1.0 % 07/10/22 04:21 Procalcitonin 0.19 ng/mL (<0.15) 07/08/22 14:54 TSH 9.750 mlU/mL (0.270-4.200) H 07/18/22 12:31 Free T4 0.78 ng/dL (0.76-1.46) 07/18/22 12:31 Thyroxine (T4) 6.2 ug/dL (4.0-12.0) 07/18/22 12:31 Free T3 Index 1.7 pg/mL (2.3-4.2) L 07/18/22 12:31 Total Cortisol 47.9 mcg/dL () 07/07/22 07:43 Urine Color Yellow (Yellow) 07/07/22 03:17 Urine Turbidity Slightly cloudy (Clear) 07/07/22 03:17 Specific [place] (Man) 1.015 (1.003-1.030) 07/07/22 03:17 Ur Protein (Man) 1+ mg/dL (Negative) 07/07/22 03:17 Ur Ketones (Man) Negative (Negative) 07/07/22 03:17 Ur Nitrite (Man) Negative (Negative) 07/07/22 03:17 Urine Bilirubin (Man) Negative (Negative) 07/07/22 03:17 Leukocyte Esterase (Man) Negative (Negative) 07/07/22 03:17 Urine WBC (Auto) 7.0 /HPF (0.0-6.0) H 07/07/22 03:17 Urine RBC (Auto) 1.0 /HPF (0.0-6.0) 07/07/22 03:17 U Epithel Cells (Auto) 4.0 /HPF (0-13.0) 07/07/22 03:17 Urine Bacteria (Auto) 3+ /HPF (Negative) 07/07/22 03:17 Urine RBC (Manual) 3+ (Negative) 07/07/22 03:17 Urine Mucus 3+ /HPF 07/07/22 03:17 Urine Osmolality 744 Mosm/kg 07/07/22 16:45 Urine Creatinine 92.9 mg/dL (0.1-20.0) H 07/07/22 16:45 Urine Sodium 109 mmol/L 07/07/22 16:45 Salicylates < 0.3 mg/dL (2.8-20.0) L 07/07/22 03:38 Urine Opiates Screen Presumptive negative 07/07/22 03:17 Urine Methadone Screen Presumptive negative 07/07/22 03:17 Acetaminophen 5.0 ug/mL (10.0-30.0) L 07/07/22 03:38 Ur Barbiturates Screen Presumptive negative 07/07/22 03:17 Valproic Acid 7.0 ug/mL (50-100) L 07/07/22 03:38 Ur Phencyclidine Scrn Presumptive negative 07/07/22 03:17 Ur Amphetamines Screen Presumptive negative 07/07/22 03:17 U Benzodiazepines Scrn Presumptive negative 07/07/22 03:17 Urine Cocaine Screen Presumptive negative 07/07/22 03:17 U Marijuana (THC) Screen Presumptive negative 07/07/22 03:17 Drugs of Abuse Note Disclamer 07/07/22 03:17 Plasma/Serum Alcohol < 0.01 % (0-0.07) 07/07/22 03:38 SARS-CoV-2 (PCR) Positive (Negative) A 07/07/22 15:00 Corbin/IV: Voiding Method External Female Catheter Active Medications - Current Medications Current Medications: Generic Name Dose Route Start Last Admin Trade Name Freq PRN Reason Stop Dose Admin Acetaminophen 650 mg 07/13/22 12:00 07/25/22 21:28 Acetaminophen 325 Mg/10.15 Ml Oral Liqd Unit Dose FEEDTUBE 650 mg Q6H PRN Administration Pain MILD(1-3)/Fever >100.5/LEE Atorvastatin Calcium 80 mg 07/10/22 22:00 07/27/22 21:33 Atorvastatin 40 Mg Tab FEEDTUBE 80 mg QHS ERROL Administration Cholecalciferol 1,000 unit 07/10/22 10:00 07/28/22 10:42 Cholecalciferol (Vit D3) 1000 Unit (25 Mcg) Tab FEEDTUBE 1,000 unit QDAY ERROL Administration Dextrose 50 ml 07/09/22 11:42 Dextrose 50% In Water (25gm) 50 Ml Syringe IV Q30MIN PRN Hypoglycemia Protocol Famotidine 20 mg 07/09/22 22:00 07/28/22 10:42 Famotidine 20 Mg Tab FEEDTUBE 20 mg BID ERROL Administration Heparin Sodium (Porcine) 5,000 unit 07/08/22 06:00 07/28/22 06:13 Heparin 5,000 Unit/1 Ml Vial SUB-Q 5,000 unit Q12H ERROL Administration Hydrophilic Ointment 1 applic 07/07/22 02:48 Lip Therapy Vaseline TP Q2HR PRN Dry Lips Insulin Human Lispro 0 unit 07/09/22 12:00 07/28/22 06:14 Insulin Lispro 100 Unit/Ml SUB-Q Not Given Q6HR [facility] Protocol Levothyroxine Sodium 75 mcg 07/11/22 06:00 07/28/22 06:13 Levothyroxine 75 Mcg Tab FEEDTUBE 75 mcg QAM@0600 ERROL Administration Multi-Ingred Cream/Lotion/Oil/Oint 1 applic 07/07/22 02:48 Mineral Oil/Petrolatum, White Ophth Oint 3.5 Gm OU Q4HR PRN Dry Eye(s) Senna/Docusate Sodium 1 tab 07/07/22 10:00 07/28/22 10:42 Sennosides/Docusate Sodium 8.6/50 Mg Tab FEEDTUBE 1 tab BID ERROL Administration Sodium Chloride 10 ml 07/07/22 13:00 07/28/22 10:42 Sodium Chloride 0.9% 10 Ml Flush Syringe IV 10 ml BID ERROL Administration Sodium Chloride 10 ml 07/07/22 12:09 Sodium Chloride 0.9% 10 Ml Flush Syringe IV PRN PRN LINE FLUSH Valproic Acid 250 mg 07/10/22 22:00 07/28/22 10:44 Valproic Acid 250 Mg/5 Ml Oral Liqd FEEDTUBE 250 mg Q12H ERROL Administration Nutrition/Malnutrition Assess - Dietary Evaluation Nutrition/Malnutrition Findings: Nutrition Notes Start: 07/07/22 13:24 Freq: Status: Active Protocol: Document 07/24/22 09:24 DAREN (Rec: 07/24/22 09:53 DAREN [id number]) Nutrition Notes Initial or Follow up Reassessment Current Diagnosis Respiratory Failure,Stroke, Hyperlipidemia Other Pertinent Diagnosis COVID-19, Metabolic Encephalopathy, Pulmonary Embolism, Dementia. Current Diet TF-Vital AF 1.2 Jameson @ 50 ml/hr (from D 07/12). Labs/Tests 07/24: CO2 33, Crea 0.4, Ca 8. 3. Pertinent Medications 07/24: Vit D3, D5w @ 50ml/hr, Levothyroxine, others nutritionally unremarkable. Height 5 ft 6 in Weight 96.2 kg Otho Body Weight (kg) 59.09 BMI 34.2 Weight change and time frame 0.946 Kg body weight gain in 1 week reported. Weight Status Obese Subjective/Other Information RD consult for routine F/U on TF tolerance/continuation assessment. TF continues as prescribed, and well tolerated, according to RN notes. Pt continues on Mechanical Ventilation, O2 saturation @ 98%, according to Physical Assessment History notes. Procedure on 07/22: Percutaneous Tracheostomy and EGD w/PEG-tube placement, well tolerated. according to Operative Report notes. TF resumed on 07/23, after PEG -tube placement, according to Progress notes. Possible discharge to LTAC facility, according to Progress notes. Percent of energy/protein needs met: Prescribed TF-Vital AF 1.2 Jameson @ 50 ml/hr provides for energy/protein needs (1,440 Kcal/90 g) during LOS, 101% Kcal, 91% AA. Burn Absent Trauma Absent GI Symptoms Other Difficulty In Swallowing,Chewing Food Allergy No Skin Integrity/Comment Assessment WNL. Current % PO Other Minimum of two criteria Yes Energy Intake (non-severe) <75% Estimated Energy Requirement >7 days Interpretation of Weight Loss (non- 5% in 1 month severe) Fluid Accumulation N/A Protein-Calorie Malnutrition Non-Severe #2 Nutrition Diagnosis Malnutrition Comments: TF continues as prescribed, and well tolerated, according to RN notes. Diagnosis Progress(for reassessment Improved documentation) #1 Nutrition Diagnosis Inadequate oral intake Comments: Procedure on 07/22: Percutaneous Tracheostomy and EGD w/PEG-tube placement, well tolerated. according to Operative Report notes. TF resumed on 07/23, after PEG -tube placement, according to Progress notes. Diagnosis Progress(for reassessment Continues documentation) Is patient on ventilator? Yes Is Patient Ambulatory and/or Out of Bed No REE-([facility]-confined to bed) 1774.548 Kcal/Kg value to use for calculation 15 Approximate Energy Requirements Using 1443 kcal/Kg Calculation Used for Recommendations Kcal/kg Additional Notes Protein: 1.3 g/Kg AdjBW; 101 g /day. Fluids: 1 ml/Kcal, or as per MD. Nutrition Intervention Nutrition Support: Continue TF-Vital AF 1.2 Jameson @ 50 ml/hr. Flush: 75 ml water Q 4 hr, or as per MD. Kcal 1,440 Protein (gm) 90 Carbohydrates (gm) 133 Fat (gm) 65 Fluid (mL) 973 Fiber (gm) 6 % RDI: 101% Kcal; 91% AA. Goal #1 Provide at least 75% of energy /protein needs through Enteral Feeding during LOS. Follow-Up By: 08/07/22 Additional Comments Continue monitoring TF tolerance, ventilation status, and BM. <ANAHI ANGELES - Last Filed: 07/29/22 07:14> Assessment and Plan Assessment and plan: I saw and evaluated the patient. I agree with the findings and the plan of care as documented in the Nurse Practitioner's~note, with the following corrections and additions. Hospitalist Physical - Constitutional Vitals: Temp Pulse Resp BP Pulse Ox 98.6 F 99 H 10 L 102/66 100 07/29/22 04:00 07/29/22 05:00 07/29/22 05:00 07/29/22 05:00 07/29/22 05:00 HEART Score - HEART Score Troponin: Troponin T 0.010 ng/mL (0.00-0.029) 07/07/22 04:17 Results - Labs CBC & Chem 7: 07/29/22 04:05 07/29/22 04:05 Labs: Laboratory Last Values WBC 7.7 K/mm3 (4.5-11.0) 07/29/22 04:05 RBC 2.64 M/mm3 (3.65-5.03) L 07/29/22 04:05 Hgb 8.8 gm/dl (10.1-14.3) L 07/29/22 04:05 Hct 26.6 % (30.3-42.9) L 07/29/22 04:05 MCV 101 fl (79-97) H 07/29/22 04:05 MCH 33 pg (28-32) H 07/29/22 04:05 MCHC 33 % (30-34) 07/29/22 04:05 RDW 16.4 % (13.2-15.2) H 07/29/22 04:05 Plt Count 251 K/mm3 (140-440) 07/29/22 04:05 Lymph % (Auto) 33.3 % (13.4-35.0) 07/22/22 04:13 Hubbard % (Auto) 10.0 % (0.0-7.3) H 07/22/22 04:13 Eos % (Auto) 0.5 % (0.0-4.3) 07/22/22 04:13 Baso % (Auto) 0.1 % (0.0-1.8) 07/22/22 04:13 Lymph # (Auto) 2.1 K/mm3 (1.2-5.4) 07/22/22 04:13 Hubbard # (Auto) 0.6 K/mm3 (0.0-0.8) 07/22/22 04:13 Eos # (Auto) 0.0 K/mm3 (0.0-0.4) 07/22/22 04:13 Baso # (Auto) 0.0 K/mm3 (0.0-0.1) 07/22/22 04:13 Seg Neutrophils % 56.1 % (40.0-70.0) 07/22/22 04:13 Seg Neutrophils # 3.6 K/mm3 (1.8-7.7) 07/22/22 04:13 PT 13.0 Sec. (12.2-14.9) 07/22/22 04:13 INR 0.87 (0.87-1.13) 07/22/22 04:13 APTT 23.0 Sec. (24.2-36.6) L 07/07/22 03:38 D-Dimer 925.80 ng/mlDDU (0-234) H 07/12/22 04:00 ABG pH 7.503 pH Units (7.350-7.450) H 07/20/22 05:30 ABG pCO2 42.7 mm Hg 07/20/22 05:30 ABG pO2 99.1 mm Hg (80.0-90.0) H 07/20/22 05:30 ABG HCO3 32.8 mmol/L (20.0-26.0) H 07/20/22 05:30 ABG O2 Saturation 97.8 % (95.0-99.0) 07/20/22 05:30 ABG O2 Content 13.3 (0.0-44) 07/20/22 05:30 ABG Base Excess 8.8 mmol/L (-2.0-3.0) H 07/20/22 05:30 ABG Hemoglobin 9.7 gm/dl (12.0-16.0) L 07/20/22 05:30 ABG Carboxyhemoglobin 1.3 % (0.0-5.0) 07/20/22 05:30 ABG Methemoglobin 0.6 % (0.0-1.5) 07/20/22 05:30 Oxyhemoglobin 95.9 % (95.0-99.0) 07/20/22 05:30 FiO2 28 % 07/20/22 05:30 Sodium 141 mmol/L (137-145) 07/29/22 04:05 Potassium 4.1 mmol/L (3.6-5.0) 07/29/22 04:05 Chloride 102.3 mmol/L (98-107) 07/29/22 04:05 Carbon Dioxide 33 mmol/L (22-30) H 07/29/22 04:05 Anion Gap 10 mmol/L 07/29/22 04:05 BUN 11 mg/dL (7-17) 07/29/22 04:05 Creatinine 0.3 mg/dL (0.6-1.2) L 07/29/22 04:05 Estimated GFR > 60 ml/min 07/29/22 04:05 BUN/Creatinine Ratio 37 % 07/29/22 04:05 Glucose 115 mg/dL (65-100) H 07/29/22 04:05 POC Glucose 119 mg/dL (70-105) H 07/29/22 05:20 Lactic Acid 2.10 mmol/L (0.7-2.0) H* 07/10/22 08:24 Uric Acid 13.5 mg/dL (3.5-7.6) H 07/07/22 04:17 Calcium 8.2 mg/dL (8.4-10.2) L 07/29/22 04:05 Phosphorus 3.00 mg/dL (2.5-4.5) 07/29/22 04:05 Magnesium 1.70 mg/dL (1.7-2.3) 07/29/22 04:05 Ferritin 519.5 ng/mL (10.0-200.0) H 07/12/22 04:00 Total Bilirubin 0.30 mg/dL (0.1-1.2) 07/10/22 04:21 AST 89 units/L (5-40) H 07/10/22 04:21 ALT 53 units/L (7-56) 07/10/22 04:21 Alkaline Phosphatase 83 units/L (35-129) 07/10/22 04:21 Ammonia 32.0 umol/L (25-60) 07/07/22 04:17 Lactate Dehydrogenase 444 units/L (91-180) H 07/12/22 04:00 Total Creatine Kinase 1745 units/L (30-135) H 07/11/22 05:40 Troponin T 0.010 ng/mL (0.00-0.029) 07/07/22 04:17 C-Reactive Protein 0.30 mg/dL (0.00-1.30) 07/12/22 04:00 Total Protein 4.9 g/dL (6.3-8.2) L 07/10/22 04:21 Albumin 2.5 g/dL (3.9-5) L 07/10/22 04:21 Albumin/Globulin Ratio 1.0 % 07/10/22 04:21 Procalcitonin 0.19 ng/mL (<0.15) 07/08/22 14:54 TSH 9.750 mlU/mL (0.270-4.200) H 07/18/22 12:31 Free T4 0.78 ng/dL (0.76-1.46) 07/18/22 12:31 Thyroxine (T4) 6.2 ug/dL (4.0-12.0) 07/18/22 12: Free T3 Index 1.7 pg/mL (2.3-4.2) L 07/18/22 12:31 Total Cortisol 47.9 mcg/dL () 07/07/22 07:43 Urine Color Yellow (Yellow) 07/07/22 03:17 Urine Turbidity Slightly cloudy (Clear) 07/07/22 03:17 Specific [place] (Man) 1.015 (1.003-1.030) 07/07/22 03:17 Ur Protein (Man) 1+ mg/dL (Negative) 07/07/22 03:17 Ur Ketones (Man) Negative (Negative) 07/07/22 03:17 Ur Nitrite (Man) Negative (Negative) 07/07/22 03:17 Urine Bilirubin (Man) Negative (Negative) 07/07/22 03:17 Leukocyte Esterase (Man) Negative (Negative) 07/07/22 03:17 Urine WBC (Auto) 7.0 /HPF (0.0-6.0) H 07/07/22 03:17 Urine RBC (Auto) 1.0 /HPF (0.0-6.0) 07/07/22 03:17 U Epithel Cells (Auto) 4.0 /HPF (0-13.0) 07/07/22 03:17 Urine Bacteria (Auto) 3+ /HPF (Negative) 07/07/22 03:17 Urine RBC (Manual) 3+ (Negative) 07/07/22 03:17 Urine Mucus 3+ /HPF 07/07/22 03:17 Urine Osmolality 744 Mosm/kg 07/07/22 16:45 Urine Creatinine 92.9 mg/dL (0.1-20.0) H 07/07/22 16:45 Urine Sodium 109 mmol/L 07/07/22 16:45 Salicylates < 0.3 mg/dL (2.8-20.0) L 07/07/22 03:38 Urine Opiates Screen Presumptive negative 07/07/22 03:17 Urine Methadone Screen Presumptive negative 07/07/22 03:17 Acetaminophen 5.0 ug/mL (10.0-30.0) L 07/07/22 03:38 Ur Barbiturates Screen Presumptive negative 07/07/22 03:17 Valproic Acid 7.0 ug/mL (50-100) L 07/07/22 03:38 Ur Phencyclidine Scrn Presumptive negative 07/07/22 03:17 Ur Amphetamines Screen Presumptive negative 07/07/22 03:17 U Benzodiazepines Scrn Presumptive negative 07/07/22 03:17 Urine Cocaine Screen Presumptive negative 07/07/22 03:17 U Marijuana (THC) Screen Presumptive negative 07/07/22 03:17 Drugs of Abuse Note Disclamer 07/07/22 03:17 Plasma/Serum Alcohol < 0.01 % (0-0.07) 07/07/22 03:38 SARS-CoV-2 (PCR) Positive (Negative) A 07/07/22 15:00 Corbin/IV: Voiding Method External Female Catheter Active Medications - Current Medications Current Medications: Generic Name Dose Route Start Last Admin Trade Name Freq PRN Reason Stop Dose Admin Acetaminophen 650 mg 07/13/22 12:00 07/25/22 21:28 Acetaminophen 325 Mg/10.15 Ml Oral Liqd Unit Dose FEEDTUBE 650 mg Q6H PRN Administration Pain MILD(1-3)/Fever >100.5/LEE Atorvastatin Calcium 80 mg 07/10/22 22:00 07/28/22 21:56 Atorvastatin 40 Mg Tab FEEDTUBE 80 mg QHS ERROL Administration Cholecalciferol 1,000 unit 07/10/22 10:00 07/28/22 10:42 Cholecalciferol (Vit D3) 1000 Unit (25 Mcg) Tab FEEDTUBE 1,000 unit QDAY ERROL Administration Dextrose 50 ml 07/09/22 11:42 Dextrose 50% In Water (25gm) 50 Ml Syringe IV Q30MIN PRN Hypoglycemia Protocol Famotidine 20 mg 07/09/22 22:00 07/28/22 21:56 Famotidine 20 Mg Tab FEEDTUBE 20 mg BID ERROL Administration Heparin Sodium (Porcine) 5,000 unit 07/08/22 06:00 07/29/22 05:56 Heparin 5,000 Unit/1 Ml Vial SUB-Q 5,000 unit Q12H ERROL Administration Hydrophilic Ointment 1 applic 07/07/22 02:48 Lip Therapy Vaseline TP Q2HR PRN Dry Lips Insulin Human Lispro 0 unit 07/09/22 12:00 07/29/22 05:57 Insulin Lispro 100 Unit/Ml SUB-Q Not Given Q6HR ERROL Protocol Levothyroxine Sodium 75 mcg 07/11/22 06:00 07/29/22 05:56 Levothyroxine 75 Mcg Tab FEEDTUBE 75 mcg QAM@0600 ERROL Administration Multi-Ingred Cream/Lotion/Oil/Oint 1 applic 07/07/22 02:48 Mineral Oil/Petrolatum, White Ophth Oint 3.5 Gm OU Q4HR PRN Dry Eye(s) Senna/Docusate Sodium 1 tab 07/07/22 10:00 07/28/22 21:56 Sennosides/Docusate Sodium 8.6/50 Mg Tab FEEDTUBE Not Given BID ERROL Sodium Chloride 10 ml 07/07/22 13:00 07/28/22 21:57 Sodium Chloride 0.9% 10 Ml Flush Syringe IV 10 ml BID ERROL Administration Sodium Chloride 10 ml 07/07/22 12:09 Sodium Chloride 0.9% 10 Ml Flush Syringe IV PRN PRN LINE FLUSH Valproic Acid 250 mg 07/10/22 22:00 07/28/22 21:56 Valproic Acid 250 Mg/5 Ml Oral Liqd FEEDTUBE 250 mg Q12H ERROL Administration Nutrition/Malnutrition Assess - Dietary Evaluation Nutrition/Malnutrition Findings: Nutrition Notes Start: 07/07/22 13:24 Freq: Status: Active Protocol: Document 07/24/22 09:24 DAREN (Rec: 07/24/22 09:53 DAREN [id number]) Nutrition Notes Initial or Follow up Reassessment Current Diagnosis Respiratory Failure,Stroke, Hyperlipidemia Other Pertinent Diagnosis COVID-19, Metabolic Encephalopathy, Pulmonary Embolism, Dementia. Current Diet TF-Vital AF 1.2 Jameson @ 50 ml/hr (from D 07/12). Labs/Tests 07/24: CO2 33, Crea 0.4, Ca 8. 3. Pertinent Medications 07/24: Vit D3, D5w @ 50ml/hr, Levothyroxine, others nutritionally unremarkable. Height 5 ft 6 in Weight 96.2 kg Otho Body Weight (kg) 59.09 BMI 34.2 Weight change and time frame 0.946 Kg body weight gain in 1 week reported. Weight Status Obese Subjective/Other Information RD consult for routine F/U on TF tolerance/continuation assessment. TF continues as prescribed, and well tolerated, according to RN notes. Pt continues on Mechanical Ventilation, O2 saturation @ 98%, according to Physical Assessment History notes. Procedure on 07/22: Percutaneous Tracheostomy and EGD w/PEG-tube placement, well tolerated. according to Operative Report notes. TF resumed on 07/23, after PEG -tube placement, according to Progress notes. Possible discharge to LTAC facility, according to [facility] notes. Percent of energy/protein needs met: Prescribed TF-Vital AF 1.2 Jameson @ 50 ml/hr provides for energy/protein needs (1,440 Kcal/90 g) during LOS, 101% Kcal, 91% AA. Burn Absent Trauma Absent GI Symptoms Other Difficulty In Swallowing,Chewing Food Allergy No Skin Integrity/Comment Assessment WNL. Current % PO Other Minimum of two criteria Yes Energy Intake (non-severe) <75% Estimated Energy Requirement >7 days Interpretation of Weight Loss (non- 5% in 1 month severe) Fluid Accumulation N/A Protein-Calorie Malnutrition Non-Severe #2 Nutrition Diagnosis Malnutrition Comments: TF continues as prescribed, and well tolerated, according to RN notes. Diagnosis Progress(for reassessment Improved documentation) #1 Nutrition Diagnosis Inadequate oral intake Comments: Procedure on 07/22: Percutaneous Tracheostomy and EGD w/PEG-tube placement, well tolerated. according to Operative Report notes. TF resumed on 07/23, after PEG -tube placement, according to Progress notes. Diagnosis Progress(for reassessment Continues documentation) Is patient on ventilator? Yes Is Patient Ambulatory and/or Out of Bed No REE-([facility]-confined to bed) 1774.548 Kcal/Kg value to use for calculation 15 Approximate Energy Requirements Using 1443 kcal/Kg Calculation Used for Recommendations Kcal/kg Additional Notes Protein: 1.3 g/Kg AdjBW; 101 g /day. Fluids: 1 ml/Kcal, or as per MD. Nutrition Intervention Nutrition Support: Continue TF-Vital AF 1.2 Jameson @ 50 ml/hr. Flush: 75 ml water Q 4 hr, or as per MD. Kcal 1,440 Protein (gm) 90 Carbohydrates (gm) 133 Fat (gm) 65 Fluid (mL) 973 Fiber (gm) 6 % RDI: 101% Kcal; 91% AA. Goal #1 Provide at least 75% of energy /protein needs through Enteral Feeding during LOS. Follow-Up By: 08/07/22 Additional Comments Continue monitoring TF tolerance, ventilation status, and BM.
--- NOTE | 2022-07-28 12:16 | Progress Note ---
Assessment and Plan 76 y/o female with acute respiratory failure secondary to altered mental status, most likely from electrolyte abnormalities seen on chemistry, found to be COVID positive. 07/28/2022: No significant change at the bedside. Could not tolerate PSV/CPAP trial. Continue the current vent settings and current regimen. Continue PSV/CPAP trials on a daily basis. 07/27/2022: Patient is unresponsive remains on trach and mechanical ventilation. Getting daily PSV trials. FiO2 is 28% with 100% saturation. Continue with the current therapy continue to wean as tolerated. 07/26/22: Daily PSV trials. Continue tube feeds. Awaiting placement. 07/25/22: Daily PSV trials. Tube feeds going and tolerating. Need to consider at least PT consult to help with movement of lower ext. 07/24/22: Continue tube feeds. Continue daily PSV trials. Await placement, weanable but will need time. 07/23/22: Tube feeds back on. No PSV trials today but will do again tomorrow. Awaiting placement. 07/22/22: Trach and Peg hopefully today. 07/21/22: Did 6 hours of PSV yesterday. Trach and peg tomorrow. Check labs to make sure lytes are stable. 07/20/22: Trach/Peg Friday. Supportive care. 07/19/22: Appreciate Surgery. on Schedule for next week. Free T4 was normal. No current indication for stress dose steroids. Continue supportive care. 07/18/22: Family meeting: Discussed current mental state. Discussed negative work up so far to explain why mental state hasnt improved. Per family here, patient was better than what she is not but I had difficult time placing a time frame as to when that was, maybe May. It does appear that she has had a steady decline mentally and even stopped eating. There were talks prior to her a dmission here about Peg tube placement. Discussed the idea of trach and peg placement. Also explained to family that trach does not fix any underlying reason as to why the patient's mental state is the way it is. The family wasn't aware that she was brought in for altered mental status, they were told she had bradycardia. Nonetheless, the family as a whole wish to pursue trach and peg placement. Consulted Surgery and hopeful they will see soon. Continue supportive measures and continue daily PSV trials. TSH on admit was 13, will repeat but if T4 is normal, nothing to do. She also is not behaving like myxedema coma. Guarded prognosis. 07/17/22: steroids end today. Continue daily PSV trials. Will speak with family about next steps as today is day 10 of intubation and it does not appear that conventional extubation is in the near future. 07/16/22: Continue daily PSV trials. Will speak with family tomorrow as patient is not improving enough for conventional extubation, especially with frequent apnic events. Most likely patient will need trach and peg. 07/15/22: mental status is still unchanged. Eyes open but not tracking or following commands. Also going apnic on PSV trials. Most likely will need trach and peg given mental status has not improved. 07/12/22: Negative MRI for acute infarct. Na is normal. Continue to monitor. Daily PSV trials. Has been intubated now for 5 days. 07/11/22: for MRI today. Appreciate renal help, agree with signing off. Attempt daily PSV. Guarded prognosis. 07/10: follow up MRI. Get official EEG read but no status. Continue daily PSV trials. Guarded prognosis 07/09/22: Continue supportive measures. Continue to fix Na, if no improvement in mental state with normal sodium then will pursue MRI. Picc placed today. 07/08/22: No further sedation. 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 Consider neurology consult and may need to obtain MRI. Attempt PSV trials today. needs Picc line placed for fci access as patient is a difficult stick. Feed patient and monitor lytes. 1. Discontinue sedation 2. Wean FiO2 for sats >88% and PaO2 greater than 60 3. Agree with fluid resuscitation, patient needs free water 4. Will follow up with family to find out exactly what patient mental status was a facility CCT 31 minutes. Subjective Date of service: 07/28/22 Principal diagnosis: Hypernatremia Interval history: Patient remains unresponsive now has trach and PEG remain on mechanical ventilator. Objective - Exam Narrative Exam: General appearance: Present: other (Trached, stable on the vent) - EENT Eyes: Present: PERRL - Respiratory Respiratory effort: normal Respiratory: bilateral: rhonchi - Cardiovascular Rhythm: regular Heart Sounds: Present: S1 & S2 - Extremities Extremities: no ischemia, pulses intact, pulses symmetrical Extremity abnormal: edema - Peripheral Assessment Generalized Edema Type: Non-pitting Edema Degree: 2+ Capillary Refill: < 3 seconds Skin Temperature: Warm Peripheral Pulses: within normal limits - Abdominal General gastrointestinal: soft, non-distended, normal bowel sounds - Integumentary Integumentary: Present: warm, dry - Psychiatric Psychiatric: other (Trached, unresponsive on the vent, not on any sedations) - Neurologic Neurologic: other (Trached, unresponsive, not on any sedations. Open eyes spontaneously, does not track, not following commands, with nonpurposeful movements) - Allied Health Allied health notes reviewed: nursing, case management Vital Signs - 12hr 07/28/22 07/28/22 07/28/22 01:00 02:00 03:00 Temperature Pulse Rate 99 H 90 95 H Pulse Rate [ From Monitor] Respiratory 13 11 L 11 L Rate Blood Pressure 90/60 102/57 113/70 O2 Sat by Pulse 100 100 100 Oximetry O2 Sat by Pulse Oximetry [ Assessment] 07/28/22 07/28/22 07/28/22 04:00 04:13 05:00 Temperature 98.3 F Pulse Rate 103 H 104 H 100 H Pulse Rate [ From Monitor] Respiratory 12 13 Rate Blood Pressure 110/66 110/66 106/67 O2 Sat by Pulse 100 100 100 Oximetry O2 Sat by Pulse Oximetry [ Assessment] 07/28/22 07/28/22 07/28/22 05:15 06:00 07:00 Temperature Pulse Rate 83 99 H Pulse Rate [ From Monitor] Respiratory 10 L 11 L Rate Blood Pressure 104/54 107/69 O2 Sat by Pulse 99 Oximetry O2 Sat by Pulse 100 Oximetry [ Assessment] 07/28/22 07/28/22 07/28/22 07:15 07:57 08:00 Temperature 98.6 F Pulse Rate 96 H 92 H Pulse Rate [ 99 H From Monitor] Respiratory 12 Rate Blood Pressure 107/69 110/63 O2 Sat by Pulse 100 100 Oximetry O2 Sat by Pulse Oximetry [ Assessment] 07/28/22 07/28/22 07/28/22 09:00 10:00 11:00 Temperature Pulse Rate 96 H 97 H 101 H Pulse Rate [ From Monitor] Respiratory 13 12 10 L Rate Blood Pressure 105/62 104/67 101/54 O2 Sat by Pulse 100 100 99 Oximetry O2 Sat by Pulse Oximetry [ Assessment] 07/28/22 11:39 Temperature 99.3 F Pulse Rate Pulse Rate [ From Monitor] Respiratory Rate Blood Pressure O2 Sat by Pulse Oximetry O2 Sat by Pulse Oximetry [ Assessment] Constitutional: comatose ENT: other (orally intubated) Neck: supple Effort: normal Ascultation: Bilateral: clear Percussion: Bilateral: not dull Cardiovascular: regular rate and rhythm Gastrointestinal: normoactive bowel sounds, soft Extremities: no cyanosis, no edema Neurologic: unable to assess CBC and BMP: 07/26/22 Unknown 07/27/22 10:00 ABG, PT/INR, D-dimer: ABG ABG pH 7.503 pH Units (7.350-7.450) H 07/20/22 05:30 ABG pCO2 42.7 mm Hg 07/20/22 05:30 ABG pO2 99.1 mm Hg (80.0-90.0) H 07/20/22 05:30 ABG O2 Saturation 97.8 % (95.0-99.0) 07/20/22 05:30 PT/INR, D-dimer PT 13.0 Sec. (12.2-14.9) 07/22/22 04:13 INR 0.87 (0.87-1.13) 07/22/22 04:13 D-Dimer 925.80 ng/mlDDU (0-234) H 07/12/22 04:00 Abnormal lab findings: Abnormal Labs 07/07/22 07/07/22 07/07/22 03:17 03:38 03:38 WBC RBC 5.43 H Hgb 18.2 H Hct 54.9 H MCV 101 H MCH 34 H RDW Plt Count 104 L [place] % (Auto) Seg Neutrophils % Seg Neutrophils # PT 15.0 H APTT 23.0 L D-Dimer ABG pH ABG pO2 ABG HCO3 ABG O2 Saturation ABG Base Excess ABG Hemoglobin Oxyhemoglobin Sodium Potassium Chloride Carbon Dioxide BUN Creatinine Glucose POC Glucose Lactic Acid Uric Acid Calcium Phosphorus Magnesium Ferritin Total Bilirubin AST Lactate Dehydrogenase Total Creatine Kinase C-Reactive Protein Total Protein Albumin TSH Free T3 Index Urine WBC (Auto) 7.0 H Urine Creatinine Salicylates Acetaminophen Valproic Acid SARS-CoV-2 (PCR) 07/07/22 07/07/22 07/07/22 03:38 03:38 03:38 WBC RBC Hgb Hct MCV MCH RDW Plt Count [place] % (Auto) Seg Neutrophils % Seg Neutrophils # PT APTT D-Dimer ABG pH ABG pO2 ABG HCO3 ABG O2 Saturation ABG Base Excess ABG Hemoglobin Oxyhemoglobin Sodium Potassium Chloride Carbon Dioxide BUN Creatinine Glucose POC Glucose Lactic Acid Uric Acid Calcium Phosphorus Magnesium 3.30 H Ferritin Total Bilirubin AST Lactate Dehydrogenase Total Creatine Kinase 1826 H C-Reactive Protein Total Protein Albumin TSH Free T3 Index Urine WBC (Auto) Urine Creatinine Salicylates < 0.3 L Acetaminophen 5.0 L Valproic Acid 7.0 L SARS-CoV-2 (PCR) 07/07/22 07/07/22 07/07/22 04:17 04:17 04:17 WBC RBC Hgb Hct MCV MCH RDW Plt Count [place] % (Auto) Seg Neutrophils % Seg Neutrophils # PT APTT D-Dimer ABG pH ABG pO2 ABG HCO3 ABG O2 Saturation ABG Base Excess ABG Hemoglobin Oxyhemoglobin Sodium 168 H* Potassium 3.2 L Chloride 122.2 H Carbon Dioxide BUN 52 H Creatinine Glucose 158 H POC Glucose Lactic Acid 3.50 H* Uric Acid Calcium 10.9 H Phosphorus Magnesium Ferritin Total Bilirubin 1.40 H AST 47 H Lactate Dehydrogenase Total Creatine Kinase C-Reactive Protein Total Protein Albumin TSH 12.790 H Free T3 Index Urine WBC (Auto) Urine Creatinine Salicylates Acetaminophen Valproic Acid SARS-CoV-2 (PCR) 07/07/22 07/07/22 07/07/22 04:17 07:43 09:35 WBC RBC Hgb Hct MCV MCH RDW Plt Count [place] % (Auto) Seg Neutrophils % Seg Neutrophils # PT APTT D-Dimer ABG pH ABG pO2 377.3 H ABG HCO3 ABG O2 Saturation 99.6 H ABG Base Excess -2.5 L ABG Hemoglobin Oxyhemoglobin Sodium Potassium Chloride Carbon Dioxide BUN Creatinine Glucose POC Glucose Lactic Acid 6.30 H* Uric Acid 13.5 H Calcium Phosphorus Magnesium Ferritin Total Bilirubin AST Lactate Dehydrogenase Total Creatine Kinase C-Reactive Protein Total Protein Albumin TSH Free T3 Index Urine WBC (Auto) Urine Creatinine Salicylates Acetaminophen Valproic Acid SARS-CoV-2 (PCR) 07/07/22 07/07/22 07/07/22 15:00 16:00 16:00 WBC RBC Hgb Hct MCV MCH RDW Plt Count [place] % (Auto) Seg Neutrophils % Seg Neutrophils # PT APTT D-Dimer ABG pH ABG pO2 ABG HCO3 ABG O2 Saturation ABG Base Excess ABG Hemoglobin Oxyhemoglobin Sodium 166 H* Potassium Chloride 124.8 H Carbon Dioxide 20 L BUN 41 H Creatinine Glucose 157 H POC Glucose Lactic Acid 7.00 H* Uric Acid Calcium Phosphorus Magnesium Ferritin Total Bilirubin AST 81 H Lactate Dehydrogenase Total Creatine Kinase C-Reactive Protein Total Protein Albumin TSH Free T3 Index Urine WBC (Auto) Urine Creatinine Salicylates Acetaminophen Valproic Acid SARS-CoV-2 (PCR) Positive A 07/07/22 07/07/22 07/07/22 16:45 23:42 23:42 WBC RBC Hgb Hct MCV MCH RDW Plt Count [place] % (Auto) Seg Neutrophils % Seg Neutrophils # PT APTT D-Dimer ABG pH ABG pO2 ABG HCO3 ABG O2 Saturation ABG Base Excess ABG Hemoglobin Oxyhemoglobin Sodium 165 H* Potassium 3.0 L Chloride 122.8 H Carbon Dioxide BUN 38 H Creatinine Glucose 232 H POC Glucose Lactic Acid 5.60 H* Uric Acid Calcium Phosphorus Magnesium Ferritin Total Bilirubin AST Lactate Dehydrogenase Total Creatine Kinase C-Reactive Protein Total Protein Albumin TSH Free T3 Index Urine WBC (Auto) Urine Creatinine 92.9 H Salicylates Acetaminophen Valproic Acid SARS-CoV-2 (PCR) 07/07/22 07/07/22 07/08/22 Unknown Unknown 05:30 WBC RBC Hgb Hct MCV MCH RDW Plt Count [place] % (Auto) Seg Neutrophils % Seg Neutrophils # PT APTT D-Dimer ABG pH 7.553 H 7.473 H ABG pO2 61.7 L 121.7 H ABG HCO3 ABG O2 Saturation 94.7 L ABG Base Excess 4.3 H ABG Hemoglobin 18.0 H Oxyhemoglobin 93.1 L Sodium 163 H* Potassium 6.3 H* D Chloride 123.7 H Carbon Dioxide BUN 42 H Creatinine Glucose 169 H POC Glucose Lactic Acid Uric Acid Calcium Phosphorus Magnesium Ferritin Total Bilirubin AST Lactate Dehydrogenase Total Creatine Kinase C-Reactive Protein Total Protein Albumin TSH Free T3 Index Urine WBC (Auto) Urine Creatinine Salicylates Acetaminophen Valproic Acid SARS-CoV-2 (PCR) 07/08/22 07/08/22 07/08/22 05:36 11:21 14:54 WBC 11.1 H RBC Hgb Hct MCV 101 H MCH 33 H RDW Plt Count 69 L [place] % (Auto) Seg Neutrophils % 82.0 H Seg Neutrophils # 9.1 H PT APTT D-Dimer ABG pH ABG pO2 ABG HCO3 ABG O2 Saturation ABG Base Excess ABG Hemoglobin Oxyhemoglobin Sodium Potassium Chloride Carbon Dioxide BUN Creatinine Glucose POC Glucose 174 H 148 H Lactic Acid Uric Acid Calcium Phosphorus Magnesium Ferritin Total Bilirubin AST Lactate Dehydrogenase Total Creatine Kinase C-Reactive Protein Total Protein Albumin TSH Free T3 Index Urine WBC (Auto) Urine Creatinine Salicylates Acetaminophen Valproic Acid SARS-CoV-2 (PCR) 07/08/22 07/08/22 07/08/22 14:54 14:54 14:54 WBC RBC Hgb Hct MCV MCH RDW Plt Count [place] % (Auto) Seg Neutrophils % Seg Neutrophils # PT APTT D-Dimer ABG pH ABG pO2 ABG HCO3 ABG O2 Saturation ABG Base Excess ABG Hemoglobin Oxyhemoglobin Sodium 163 H* Potassium 2.9 L* Chloride 123.7 H Carbon Dioxide BUN 30 H Creatinine Glucose 161 H POC Glucose Lactic Acid 6.10 H* Uric Acid Calcium Phosphorus Magnesium Ferritin Total Bilirubin AST 69 H Lactate Dehydrogenase Total Creatine Kinase 2335 H C-Reactive Protein Total Protein 5.6 L D Albumin 3.1 L TSH Free T3 Index Urine WBC (Auto) Urine Creatinine Salicylates Acetaminophen Valproic Acid SARS-CoV-2 (PCR) 07/08/22 07/08/22 07/08/22 14:54 14:54 14:54 WBC RBC Hgb Hct MCV MCH RDW Plt Count [place] % (Auto) Seg Neutrophils % Seg Neutrophils # PT APTT D-Dimer 499.72 H ABG pH ABG pO2 ABG HCO3 ABG O2 Saturation ABG Base Excess ABG Hemoglobin Oxyhemoglobin Sodium Potassium Chloride Carbon Dioxide BUN Creatinine Glucose POC Glucose Lactic Acid Uric Acid Calcium Phosphorus Magnesium Ferritin 722.1 H Total Bilirubin AST Lactate Dehydrogenase 455 H Total Creatine Kinase C-Reactive Protein 1.60 H Total Protein Albumin TSH Free T3 Index Urine WBC (Auto) Urine Creatinine Salicylates Acetaminophen Valproic Acid SARS-CoV-2 (PCR) 07/08/22 07/08/22 07/09/22 19:13 19:53 00:09 WBC RBC Hgb Hct MCV MCH RDW Plt Count [place] % (Auto) Seg Neutrophils % Seg Neutrophils # PT APTT D-Dimer ABG pH ABG pO2 ABG HCO3 ABG O2 Saturation ABG Base Excess ABG Hemoglobin Oxyhemoglobin Sodium 160 H Potassium 3.5 L D Chloride 122.0 H Carbon Dioxide 20 L BUN 28 H Creatinine Glucose 151 H POC Glucose 138 H Lactic Acid 5.70 H* Uric Acid Calcium Phosphorus Magnesium Ferritin Total Bilirubin AST Lactate Dehydrogenase Total Creatine Kinase C-Reactive Protein Total Protein Albumin TSH Free T3 Index Urine WBC (Auto) Urine Creatinine Salicylates Acetaminophen Valproic Acid SARS-CoV-2 (PCR) 07/09/22 07/09/22 07/09/22 00:45 03:21 03:21 WBC RBC Hgb Hct MCV MCH RDW Plt Count [place] % (Auto) Seg Neutrophils % Seg Neutrophils # PT APTT D-Dimer ABG pH ABG pO2 ABG HCO3 ABG O2 Saturation ABG Base Excess ABG Hemoglobin Oxyhemoglobin Sodium 158 H 157 H Potassium Chloride 124.2 H 125.0 H Carbon Dioxide 20 L 20 L BUN 25 H 24 H Creatinine Glucose 147 H 169 H POC Glucose Lactic Acid 4.70 H* Uric Acid Calcium Phosphorus Magnesium Ferritin Total Bilirubin AST 81 H Lactate Dehydrogenase Total Creatine Kinase C-Reactive Protein Total Protein 5.7 L Albumin 2.8 L TSH Free T3 Index Urine WBC (Auto) Urine Creatinine Salicylates Acetaminophen Valproic Acid SARS-CoV-2 (PCR) 07/09/22 07/09/22 07/09/22 04:40 05:35 08:14 WBC RBC Hgb Hct MCV 102 H MCH 33 H RDW Plt Count 74 L [place] % (Auto) Seg Neutrophils % Seg Neutrophils # PT APTT D-Dimer ABG pH ABG pO2 172.1 H ABG HCO3 ABG O2 Saturation 99.1 H ABG Base Excess -2.8 L ABG Hemoglobin Oxyhemoglobin Sodium Potassium Chloride Carbon Dioxide BUN Creatinine Glucose POC Glucose 108 H Lactic Acid Uric Acid Calcium Phosphorus Magnesium Ferritin Total Bilirubin AST Lactate Dehydrogenase Total Creatine Kinase C-Reactive Protein Total Protein Albumin TSH Free T3 Index Urine WBC (Auto) Urine Creatinine Salicylates Acetaminophen Valproic Acid SARS-CoV-2 (PCR) 07/09/22 07/09/22 07/09/22 11:16 11:27 16:20 WBC RBC Hgb Hct MCV MCH RDW Plt Count [place] % (Auto) Seg Neutrophils % Seg Neutrophils # PT APTT D-Dimer ABG pH ABG pO2 ABG HCO3 ABG O2 Saturation ABG Base Excess ABG Hemoglobin Oxyhemoglobin Sodium 155 H Potassium Chloride 121.3 H Carbon Dioxide BUN 21 H Creatinine Glucose 170 H POC Glucose 173 H 190 H Lactic Acid Uric Acid Calcium Phosphorus Magnesium Ferritin Total Bilirubin AST Lactate Dehydrogenase Total Creatine Kinase C-Reactive Protein Total Protein Albumin TSH Free T3 Index Urine WBC (Auto) Urine Creatinine Salicylates Acetaminophen Valproic Acid SARS-CoV-2 (PCR) 07/09/22 07/10/22 07/10/22 17:16 00:04 04:21 WBC RBC Hgb Hct MCV MCH RDW Plt Count [place] % (Auto) Seg Neutrophils % Seg Neutrophils # PT APTT D-Dimer ABG pH ABG pO2 ABG HCO3 ABG O2 Saturation ABG Base Excess ABG Hemoglobin Oxyhemoglobin Sodium 149 H 150 H Potassium Chloride 115.6 H 115.0 H Carbon Dioxide BUN 18 H Creatinine 0.5 L Glucose 207 H 178 H POC Glucose 180 H Lactic Acid Uric Acid Calcium 7.9 L Phosphorus Magnesium Ferritin Total Bilirubin AST 89 H Lactate Dehydrogenase 431 H Total Creatine Kinase C-Reactive Protein Total Protein 4.9 L Albumin 2.5 L TSH Free T3 Index Urine WBC (Auto) Urine Creatinine Salicylates Acetaminophen Valproic Acid SARS-CoV-2 (PCR) 07/10/22 07/10/22 07/10/22 04:21 04:21 04:21 WBC 11.8 H RBC 3.52 L Hgb Hct MCV 99 H MCH 33 H RDW Plt Count 67 L [place] % (Auto) Seg Neutrophils % Seg Neutrophils # PT APTT D-Dimer 585.71 H ABG pH ABG pO2 ABG HCO3 ABG O2 Saturation ABG Base Excess ABG Hemoglobin Oxyhemoglobin Sodium Potassium Chloride Carbon Dioxide BUN Creatinine Glucose POC Glucose Lactic Acid Uric Acid Calcium Phosphorus Magnesium Ferritin 631.3 H Total Bilirubin AST Lactate Dehydrogenase Total Creatine Kinase C-Reactive Protein Total Protein Albumin TSH Free T3 Index Urine WBC (Auto) Urine Creatinine Salicylates Acetaminophen Valproic Acid SARS-CoV-2 (PCR) 07/10/22 07/10/22 07/10/22 04:21 04:55 05:26 WBC RBC Hgb Hct MCV MCH RDW Plt Count [place] % (Auto) Seg Neutrophils % Seg Neutrophils # PT APTT D-Dimer ABG pH ABG pO2 76.8 L ABG HCO3 ABG O2 Saturation ABG Base Excess ABG Hemoglobin 10.4 L Oxyhemoglobin 94.5 L Sodium Potassium Chloride Carbon Dioxide BUN Creatinine Glucose POC Glucose 147 H Lactic Acid 2.50 H* Uric Acid Calcium Phosphorus Magnesium Ferritin Total Bilirubin AST Lactate Dehydrogenase Total Creatine Kinase C-Reactive Protein Total Protein Albumin TSH Free T3 Index Urine WBC (Auto) Urine Creatinine Salicylates Acetaminophen Valproic Acid SARS-CoV-2 (PCR) 07/10/22 07/10/22 07/10/22 08:24 11:31 12:53 WBC RBC Hgb Hct MCV MCH RDW Plt Count [place] % (Auto) Seg Neutrophils % Seg Neutrophils # PT APTT D-Dimer ABG pH ABG pO2 ABG HCO3 ABG O2 Saturation ABG Base Excess ABG Hemoglobin Oxyhemoglobin Sodium Potassium Chloride 110.9 H Carbon Dioxide BUN Creatinine 0.5 L Glucose 200 H POC Glucose 166 H Lactic Acid 2.10 H* Uric Acid Calcium 8.3 L Phosphorus Magnesium Ferritin Total Bilirubin AST Lactate Dehydrogenase Total Creatine Kinase C-Reactive Protein Total Protein Albumin TSH Free T3 Index Urine WBC (Auto) Urine Creatinine Salicylates Acetaminophen Valproic Acid SARS-CoV-2 (PCR) 07/10/22 07/10/22 07/10/22 17:37 18:53 23:30 WBC RBC Hgb Hct MCV MCH RDW Plt Count [place] % (Auto) Seg Neutrophils % Seg Neutrophils # PT APTT D-Dimer ABG pH ABG pO2 ABG HCO3 ABG O2 Saturation ABG Base Excess ABG Hemoglobin Oxyhemoglobin Sodium Potassium Chloride 109.5 H 110.2 H Carbon Dioxide BUN Creatinine 0.5 L 0.5 L Glucose 243 H 208 H POC Glucose 237 H Lactic Acid Uric Acid Calcium 8.1 L 8.1 L Phosphorus Magnesium Ferritin Total Bilirubin AST Lactate Dehydrogenase Total Creatine Kinase C-Reactive Protein Total Protein Albumin TSH Free T3 Index Urine WBC (Auto) Urine Creatinine Salicylates Acetaminophen Valproic Acid SARS-CoV-2 (PCR) 07/10/22 07/11/22 07/11/22 23:57 04:00 04:15 WBC 11.2 H RBC Hgb Hct MCV 99 H MCH RDW Plt Count 73 L [place] % (Auto) Seg Neutrophils % Seg Neutrophils # PT APTT D-Dimer ABG pH ABG pO2 107.4 H ABG HCO3 ABG O2 Saturation ABG Base Excess ABG Hemoglobin Oxyhemoglobin Sodium Potassium Chloride Carbon Dioxide BUN Creatinine Glucose POC Glucose 195 H Lactic Acid Uric Acid Calcium Phosphorus Magnesium Ferritin Total Bilirubin AST Lactate Dehydrogenase Total Creatine Kinase C-Reactive Protein Total Protein Albumin TSH Free T3 Index Urine WBC (Auto) Urine Creatinine Salicylates Acetaminophen Valproic Acid SARS-CoV-2 (PCR) 07/11/22 07/11/22 07/11/22 05:40 05:40 06:06 WBC RBC Hgb Hct MCV MCH RDW Plt Count [place] % (Auto) Seg Neutrophils % Seg Neutrophils # PT APTT D-Dimer ABG pH ABG pO2 ABG HCO3 ABG O2 Saturation ABG Base Excess ABG Hemoglobin Oxyhemoglobin Sodium Potassium Chloride 109.8 H Carbon Dioxide BUN Creatinine 0.5 L Glucose 160 H POC Glucose 145 H Lactic Acid Uric Acid Calcium 8.3 L Phosphorus Magnesium Ferritin Total Bilirubin AST Lactate Dehydrogenase Total Creatine Kinase 1745 H C-Reactive Protein Total Protein Albumin TSH Free T3 Index Urine WBC (Auto) Urine Creatinine Salicylates Acetaminophen Valproic Acid SARS-CoV-2 (PCR) 07/11/22 07/11/22 07/11/22 11:55 11:59 17:44 WBC RBC Hgb Hct MCV MCH RDW Plt Count [place] % (Auto) Seg Neutrophils % Seg Neutrophils # PT APTT D-Dimer ABG pH ABG pO2 ABG HCO3 ABG O2 Saturation ABG Base Excess ABG Hemoglobin Oxyhemoglobin Sodium Potassium Chloride 107.8 H Carbon Dioxide BUN Creatinine 0.5 L Glucose 150 H POC Glucose 150 H 182 H Lactic Acid Uric Acid Calcium 8.2 L Phosphorus Magnesium Ferritin Total Bilirubin AST Lactate Dehydrogenase Total Creatine Kinase C-Reactive Protein Total Protein Albumin TSH Free T3 Index Urine WBC (Auto) Urine Creatinine Salicylates Acetaminophen Valproic Acid SARS-CoV-2 (PCR) 07/11/22 07/12/22 07/12/22 17:50 00:10 00:12 WBC RBC Hgb Hct MCV MCH RDW Plt Count [place] % (Auto) Seg Neutrophils % Seg Neutrophils # PT APTT D-Dimer ABG pH ABG pO2 ABG HCO3 ABG O2 Saturation ABG Base Excess ABG Hemoglobin Oxyhemoglobin Sodium Potassium Chloride 108.4 H Carbon Dioxide BUN Creatinine 0.5 L 0.4 L Glucose 191 H 163 H POC Glucose 154 H Lactic Acid Uric Acid Calcium 8.2 L 7.9 L Phosphorus Magnesium Ferritin Total Bilirubin AST Lactate Dehydrogenase Total Creatine Kinase C-Reactive Protein Total Protein Albumin TSH Free T3 Index Urine WBC (Auto) Urine Creatinine Salicylates Acetaminophen Valproic Acid SARS-CoV-2 (PCR) 07/12/22 07/12/22 07/12/22 04:00 04:00 04:00 WBC RBC Hgb Hct MCV MCH RDW Plt Count [place] % (Auto) Seg Neutrophils % Seg Neutrophils # PT APTT D-Dimer 925.80 H ABG pH ABG pO2 ABG HCO3 ABG O2 Saturation ABG Base Excess ABG Hemoglobin Oxyhemoglobin Sodium Potassium Chloride Carbon Dioxide BUN Creatinine Glucose POC Glucose Lactic Acid Uric Acid Calcium Phosphorus Magnesium Ferritin 519.5 H Total Bilirubin AST Lactate Dehydrogenase 444 H Total Creatine Kinase C-Reactive Protein Total Protein Albumin TSH Free T3 Index Urine WBC (Auto) Urine Creatinine Salicylates Acetaminophen Valproic Acid SARS-CoV-2 (PCR) 07/12/22 07/12/22 07/12/22 04:00 05:00 05:03 WBC 11.7 H RBC 3.33 L Hgb Hct MCV 99 H MCH 33 H RDW Plt Count 68 L [place] % (Auto) Seg Neutrophils % Seg Neutrophils # PT APTT D-Dimer ABG pH 7.453 H ABG pO2 107.9 H ABG HCO3 27.9 H ABG O2 Saturation ABG Base Excess 3.7 H ABG Hemoglobin 10.9 L Oxyhemoglobin Sodium Potassium Chloride Carbon Dioxide BUN Creatinine Glucose POC Glucose 174 H Lactic Acid Uric Acid Calcium Phosphorus Magnesium Ferritin Total Bilirubin AST Lactate Dehydrogenase Total Creatine Kinase C-Reactive Protein Total Protein Albumin TSH Free T3 Index Urine WBC (Auto) Urine Creatinine Salicylates Acetaminophen Valproic Acid SARS-CoV-2 (PCR) 07/12/22 07/12/22 07/12/22 12:15 17:18 23:14 WBC RBC Hgb Hct MCV MCH RDW Plt Count [place] % (Auto) Seg Neutrophils % Seg Neutrophils # PT APTT D-Dimer ABG pH ABG pO2 ABG HCO3 ABG O2 Saturation ABG Base Excess ABG Hemoglobin Oxyhemoglobin Sodium Potassium Chloride Carbon Dioxide BUN Creatinine Glucose POC Glucose 154 H 154 H 167 H Lactic Acid Uric Acid Calcium Phosphorus Magnesium Ferritin Total Bilirubin AST Lactate Dehydrogenase Total Creatine Kinase C-Reactive Protein Total Protein Albumin TSH Free T3 Index Urine WBC (Auto) Urine Creatinine Salicylates Acetaminophen Valproic Acid SARS-CoV-2 (PCR) 07/13/22 07/13/22 07/13/22 04:00 04:10 05:14 WBC RBC 3.17 L Hgb Hct MCV 98 H MCH 34 H RDW Plt Count 75 L [place] % (Auto) Seg Neutrophils % Seg Neutrophils # PT APTT D-Dimer ABG pH ABG pO2 ABG HCO3 ABG O2 Saturation ABG Base Excess ABG Hemoglobin Oxyhemoglobin Sodium Potassium Chloride Carbon Dioxide BUN Creatinine 0.4 L Glucose 136 H POC Glucose 140 H Lactic Acid Uric Acid Calcium Phosphorus Magnesium Ferritin Total Bilirubin AST Lactate Dehydrogenase Total Creatine Kinase C-Reactive Protein Total Protein Albumin TSH Free T3 Index Urine WBC (Auto) Urine Creatinine Salicylates Acetaminophen Valproic Acid SARS-CoV-2 (PCR) 07/13/22 07/13/22 07/13/22 12:03 14:25 17:19 WBC RBC Hgb Hct MCV MCH RDW Plt Count [place] % (Auto) Seg Neutrophils % Seg Neutrophils # PT APTT D-Dimer ABG pH 7.478 H ABG pO2 118.1 H ABG HCO3 28.2 H ABG O2 Saturation ABG Base Excess 4.5 H ABG Hemoglobin Oxyhemoglobin Sodium Potassium Chloride Carbon Dioxide BUN Creatinine Glucose POC Glucose 193 H 189 H Lactic Acid Uric Acid Calcium Phosphorus Magnesium Ferritin Total Bilirubin AST Lactate Dehydrogenase Total Creatine Kinase C-Reactive Protein Total Protein Albumin TSH Free T3 Index Urine WBC (Auto) Urine Creatinine Salicylates Acetaminophen Valproic Acid SARS-CoV-2 (PCR) 07/13/22 07/13/22 07/14/22 23:52 Unknown 06:18 WBC RBC Hgb Hct MCV MCH RDW Plt Count [place] % (Auto) Seg Neutrophils % Seg Neutrophils # PT APTT D-Dimer ABG pH 7.465 H ABG pO2 128.8 H ABG HCO3 29.0 H ABG O2 Saturation ABG Base Excess 4.9 H ABG Hemoglobin 10.3 L Oxyhemoglobin Sodium Potassium Chloride Carbon Dioxide BUN Creatinine Glucose POC Glucose 174 H 167 H Lactic Acid Uric Acid Calcium Phosphorus Magnesium Ferritin Total Bilirubin AST Lactate Dehydrogenase Total Creatine Kinase C-Reactive Protein Total Protein Albumin TSH Free T3 Index Urine WBC (Auto) Urine Creatinine Salicylates Acetaminophen Valproic Acid SARS-CoV-2 (PCR) 07/14/22 07/14/22 07/15/22 11:34 17:20 00:25 WBC RBC Hgb Hct MCV MCH RDW Plt Count [place] % (Auto) Seg Neutrophils % Seg Neutrophils # PT APTT D-Dimer ABG pH ABG pO2 ABG HCO3 ABG O2 Saturation ABG Base Excess ABG Hemoglobin Oxyhemoglobin Sodium Potassium Chloride Carbon Dioxide BUN Creatinine Glucose POC Glucose 187 H 221 H 172 H Lactic Acid Uric Acid Calcium Phosphorus Magnesium Ferritin Total Bilirubin AST Lactate Dehydrogenase Total Creatine Kinase C-Reactive Protein Total Protein Albumin TSH Free T3 Index Urine WBC (Auto) Urine Creatinine Salicylates Acetaminophen Valproic Acid SARS-CoV-2 (PCR) 07/15/22 07/15/22 07/15/22 04:00 04:00 05:49 WBC 11.4 H RBC 3.13 L Hgb Hct MCV 98 H MCH 33 H RDW Plt Count 98 L [place] % (Auto) Seg Neutrophils % Seg Neutrophils # PT APTT D-Dimer ABG pH ABG pO2 ABG HCO3 ABG O2 Saturation ABG Base Excess ABG Hemoglobin Oxyhemoglobin Sodium Potassium Chloride Carbon Dioxide 34 H BUN Creatinine 0.4 L Glucose 126 H POC Glucose 143 H Lactic Acid Uric Acid Calcium Phosphorus Magnesium Ferritin Total Bilirubin AST Lactate Dehydrogenase Total Creatine Kinase C-Reactive Protein Total Protein Albumin TSH Free T3 Index Urine WBC (Auto) Urine Creatinine Salicylates Acetaminophen Valproic Acid SARS-CoV-2 (PCR) 07/15/22 07/15/22 07/16/22 11:19 16:16 00:19 WBC RBC Hgb Hct MCV MCH RDW Plt Count [place] % (Auto) Seg Neutrophils % Seg Neutrophils # PT APTT D-Dimer ABG pH ABG pO2 ABG HCO3 ABG O2 Saturation ABG Base Excess ABG Hemoglobin Oxyhemoglobin Sodium Potassium Chloride Carbon Dioxide BUN Creatinine Glucose POC Glucose 158 H 227 H 153 H Lactic Acid Uric Acid Calcium Phosphorus Magnesium Ferritin Total Bilirubin AST Lactate Dehydrogenase Total Creatine Kinase C-Reactive Protein Total Protein Albumin TSH Free T3 Index Urine WBC (Auto) Urine Creatinine Salicylates Acetaminophen Valproic Acid SARS-CoV-2 (PCR) 07/16/22 07/16/22 07/16/22 04:20 04:20 11:28 WBC RBC 3.16 L Hgb Hct MCV 99 H MCH 33 H RDW Plt Count 101 L [place] % (Auto) Seg Neutrophils % Seg Neutrophils # PT APTT D-Dimer ABG pH ABG pO2 ABG HCO3 ABG O2 Saturation ABG Base Excess ABG Hemoglobin Oxyhemoglobin Sodium Potassium Chloride Carbon Dioxide 36 H BUN 18 H Creatinine 0.4 L Glucose 139 H POC Glucose 158 H Lactic Acid Uric Acid Calcium Phosphorus Magnesium Ferritin Total Bilirubin AST Lactate Dehydrogenase Total Creatine Kinase C-Reactive Protein Total Protein Albumin TSH Free T3 Index Urine WBC (Auto) Urine Creatinine Salicylates Acetaminophen Valproic Acid SARS-CoV-2 (PCR) 07/16/22 07/17/22 07/17/22 16:30 00:07 05:46 WBC RBC Hgb Hct MCV MCH RDW Plt Count [place] % (Auto) Seg Neutrophils % Seg Neutrophils # PT APTT D-Dimer ABG pH ABG pO2 ABG HCO3 ABG O2 Saturation ABG Base Excess ABG Hemoglobin Oxyhemoglobin Sodium Potassium Chloride Carbon Dioxide BUN Creatinine Glucose POC Glucose 201 H 139 H 123 H Lactic Acid Uric Acid Calcium Phosphorus Magnesium Ferritin Total Bilirubin AST Lactate Dehydrogenase Total Creatine Kinase C-Reactive Protein Total Protein Albumin TSH Free T3 Index Urine WBC (Auto) Urine Creatinine Salicylates Acetaminophen Valproic Acid SARS-CoV-2 (PCR) 07/17/22 07/17/22 07/17/22 13:30 17:51 23:49 WBC RBC Hgb Hct MCV MCH RDW Plt Count [place] % (Auto) Seg Neutrophils % Seg Neutrophils # PT APTT D-Dimer ABG pH ABG pO2 ABG HCO3 ABG O2 Saturation ABG Base Excess ABG Hemoglobin Oxyhemoglobin Sodium Potassium Chloride Carbon Dioxide BUN Creatinine Glucose POC Glucose 185 H 219 H 133 H Lactic Acid Uric Acid Calcium Phosphorus Magnesium Ferritin Total Bilirubin AST Lactate Dehydrogenase Total Creatine Kinase C-Reactive Protein Total Protein Albumin TSH Free T3 Index Urine WBC (Auto) Urine Creatinine Salicylates Acetaminophen Valproic Acid SARS-CoV-2 (PCR) 07/18/22 07/18/22 07/18/22 04:00 04:00 04:00 WBC 12.2 H RBC 3.34 L Hgb Hct MCV 100 H MCH 33 H RDW Plt Count 113 L [place] % (Auto) Seg Neutrophils % 77.3 H Seg Neutrophils # 9.4 H PT APTT D-Dimer ABG pH 7.508 H ABG pO2 115.9 H ABG HCO3 33.4 H ABG O2 Saturation ABG Base Excess 9.4 H ABG Hemoglobin 11.7 L Oxyhemoglobin Sodium Potassium Chloride Carbon Dioxide 35 H BUN Creatinine 0.4 L Glucose 130 H POC Glucose Lactic Acid Uric Acid Calcium Phosphorus Magnesium Ferritin Total Bilirubin AST Lactate Dehydrogenase Total Creatine Kinase C-Reactive Protein Total Protein Albumin TSH Free T3 Index Urine WBC (Auto) Urine Creatinine Salicylates Acetaminophen Valproic Acid SARS-CoV-2 (PCR) 07/18/22 07/18/22 07/18/22 04:42 12:31 12:31 WBC RBC Hgb Hct MCV MCH RDW Plt Count [place] % (Auto) Seg Neutrophils % Seg Neutrophils # PT APTT D-Dimer ABG pH ABG pO2 ABG HCO3 ABG O2 Saturation ABG Base Excess ABG Hemoglobin Oxyhemoglobin Sodium Potassium Chloride Carbon Dioxide BUN Creatinine Glucose POC Glucose 134 H Lactic Acid Uric Acid Calcium Phosphorus Magnesium Ferritin Total Bilirubin AST Lactate Dehydrogenase Total Creatine Kinase C-Reactive Protein Total Protein Albumin TSH 9.750 H Free T3 Index 1.7 L Urine WBC (Auto) Urine Creatinine Salicylates Acetaminophen Valproic Acid SARS-CoV-2 (PCR) 07/18/22 07/18/22 07/19/22 12:33 17:39 00:43 WBC RBC Hgb Hct MCV MCH RDW Plt Count [place] % (Auto) Seg Neutrophils % Seg Neutrophils # PT APTT D-Dimer ABG pH ABG pO2 ABG HCO3 ABG O2 Saturation ABG Base Excess ABG Hemoglobin Oxyhemoglobin Sodium Potassium Chloride Carbon Dioxide BUN Creatinine Glucose POC Glucose 172 H 164 H 132 H Lactic Acid Uric Acid Calcium Phosphorus Magnesium Ferritin Total Bilirubin AST Lactate Dehydrogenase Total Creatine Kinase C-Reactive Protein Total Protein Albumin TSH Free T3 Index Urine WBC (Auto) Urine Creatinine Salicylates Acetaminophen Valproic Acid SARS-CoV-2 (PCR) 07/19/22 07/19/22 07/19/22 05:08 12:30 17:42 WBC RBC Hgb Hct MCV MCH RDW Plt Count [place] % (Auto) Seg Neutrophils % Seg Neutrophils # PT APTT D-Dimer ABG pH ABG pO2 ABG HCO3 ABG O2 Saturation ABG Base Excess ABG Hemoglobin Oxyhemoglobin Sodium Potassium Chloride Carbon Dioxide BUN Creatinine Glucose POC Glucose 143 H 159 H 139 H Lactic Acid Uric Acid Calcium Phosphorus Magnesium Ferritin Total Bilirubin AST Lactate Dehydrogenase Total Creatine Kinase C-Reactive Protein Total Protein Albumin TSH Free T3 Index Urine WBC (Auto) Urine Creatinine Salicylates Acetaminophen Valproic Acid SARS-CoV-2 (PCR) 07/19/22 07/20/22 07/20/22 23:26 05:30 06:03 WBC RBC Hgb Hct MCV MCH RDW Plt Count [place] % (Auto) Seg Neutrophils % Seg Neutrophils # PT APTT D-Dimer ABG pH 7.503 H ABG pO2 99.1 H ABG HCO3 32.8 H ABG O2 Saturation ABG Base Excess 8.8 H ABG Hemoglobin 9.7 L Oxyhemoglobin Sodium Potassium Chloride Carbon Dioxide BUN Creatinine Glucose POC Glucose 144 H 146 H Lactic Acid Uric Acid Calcium Phosphorus Magnesium Ferritin Total Bilirubin AST Lactate Dehydrogenase Total Creatine Kinase C-Reactive Protein Total Protein Albumin TSH Free T3 Index Urine WBC (Auto) Urine Creatinine Salicylates Acetaminophen Valproic Acid SARS-CoV-2 (PCR) 07/20/22 07/20/22 07/20/22 12:15 17:24 23:44 WBC RBC Hgb Hct MCV MCH RDW Plt Count [place] % (Auto) Seg Neutrophils % Seg Neutrophils # PT APTT D-Dimer ABG pH ABG pO2 ABG HCO3 ABG O2 Saturation ABG Base Excess ABG Hemoglobin Oxyhemoglobin Sodium Potassium Chloride Carbon Dioxide BUN Creatinine Glucose POC Glucose 138 H 135 H 131 H Lactic Acid Uric Acid Calcium Phosphorus Magnesium Ferritin Total Bilirubin AST Lactate Dehydrogenase Total Creatine Kinase C-Reactive Protein Total Protein Albumin TSH Free T3 Index Urine WBC (Auto) Urine Creatinine Salicylates Acetaminophen Valproic Acid SARS-CoV-2 (PCR) 07/21/22 07/21/22 07/21/22 04:00 04:00 05:13 WBC RBC 2.92 L Hgb 9.6 L Hct 29.0 L MCV 99 H MCH 33 H RDW 15.6 H Plt Count 136 L [place] % (Auto) Seg Neutrophils % Seg Neutrophils # PT APTT D-Dimer ABG pH ABG pO2 ABG HCO3 ABG O2 Saturation ABG Base Excess ABG Hemoglobin Oxyhemoglobin Sodium Potassium Chloride Carbon Dioxide 32 H BUN Creatinine 0.3 L Glucose 133 H POC Glucose 142 H Lactic Acid Uric Acid Calcium 8.3 L Phosphorus Magnesium Ferritin Total Bilirubin AST Lactate Dehydrogenase Total Creatine Kinase C-Reactive Protein Total Protein Albumin TSH Free T3 Index Urine WBC (Auto) Urine Creatinine Salicylates Acetaminophen Valproic Acid SARS-CoV-2 (PCR) 07/21/22 07/21/22 07/21/22 06:16 11:48 16:08 WBC RBC Hgb Hct MCV MCH RDW Plt Count [place] % (Auto) Seg Neutrophils % Seg Neutrophils # PT APTT D-Dimer ABG pH ABG pO2 ABG HCO3 ABG O2 Saturation ABG Base Excess ABG Hemoglobin Oxyhemoglobin Sodium Potassium Chloride Carbon Dioxide BUN Creatinine Glucose POC Glucose 149 H 124 H 139 H Lactic Acid Uric Acid Calcium Phosphorus Magnesium Ferritin Total Bilirubin AST Lactate Dehydrogenase Total Creatine Kinase C-Reactive Protein Total Protein Albumin TSH Free T3 Index Urine WBC (Auto) Urine Creatinine Salicylates Acetaminophen Valproic Acid SARS-CoV-2 (PCR) 07/22/22 07/22/2207/22/22 00:05 04:00 04:13 WBC RBC 2.90 L Hgb 9.5 L Hct 28.9 L MCV 100 H MCH 33 H RDW 15.5 H Plt Count [place] % (Auto) 10.0 H Seg Neutrophils % Seg Neutrophils # PT APTT D-Dimer ABG pH ABG pO2 ABG HCO3 ABG O2 Saturation ABG Base Excess ABG Hemoglobin Oxyhemoglobin Sodium Potassium Chloride Carbon Dioxide 31 H BUN Creatinine 0.4 L Glucose 105 H POC Glucose 143 H Lactic Acid Uric Acid Calcium Phosphorus Magnesium Ferritin Total Bilirubin AST Lactate Dehydrogenase Total Creatine Kinase C-Reactive Protein Total Protein Albumin TSH Free T3 Index Urine WBC (Auto) Urine Creatinine Salicylates Acetaminophen Valproic Acid SARS-CoV-2 (PCR) 07/22/22 07/23/22 07/23/22 11:03 04:25 04:25 WBC RBC 2.71 L Hgb 9.1 L Hct 27.0 L MCV 100 H MCH 33 H RDW 15.4 H Plt Count [place] % (Auto) Seg Neutrophils % Seg Neutrophils # PT APTT D-Dimer ABG pH ABG pO2 ABG HCO3 ABG O2 Saturation ABG Base Excess ABG Hemoglobin Oxyhemoglobin Sodium Potassium Chloride Carbon Dioxide 33 H BUN Creatinine 0.4 L Glucose POC Glucose 111 H Lactic Acid Uric Acid Calcium 8.3 L Phosphorus Magnesium Ferritin Total Bilirubin AST Lactate Dehydrogenase Total Creatine Kinase C-Reactive Protein Total Protein Albumin TSH Free T3 Index Urine WBC (Auto) Urine Creatinine Salicylates Acetaminophen Valproic Acid SARS-CoV-2 (PCR) 07/23/22 07/23/22 07/23/22 06:14 11:09 23:34 WBC RBC Hgb Hct MCV MCH RDW Plt Count [place] % (Auto) Seg Neutrophils % Seg Neutrophils # PT APTT D-Dimer ABG pH ABG pO2 ABG HCO3 ABG O2 Saturation ABG Base Excess ABG Hemoglobin Oxyhemoglobin Sodium Potassium Chloride Carbon Dioxide BUN Creatinine Glucose POC Glucose 106 H 117 H 115 H Lactic Acid Uric Acid Calcium Phosphorus Magnesium Ferritin Total Bilirubin AST Lactate Dehydrogenase Total Creatine Kinase C-Reactive Protein Total Protein Albumin TSH Free T3 Index Urine WBC (Auto) Urine Creatinine Salicylates Acetaminophen Valproic Acid SARS-CoV-2 (PCR) 07/24/22 07/24/22 07/24/22 05:24 11:25 16:52 WBC RBC Hgb Hct MCV MCH RDW Plt Count [place] % (Auto) Seg Neutrophils % Seg Neutrophils # PT APTT D-Dimer ABG pH ABG pO2 ABG HCO3 ABG O2 Saturation ABG Base Excess ABG Hemoglobin Oxyhemoglobin Sodium Potassium Chloride Carbon Dioxide BUN Creatinine Glucose POC Glucose 122 H 139 H 126 H Lactic Acid Uric Acid Calcium Phosphorus Magnesium Ferritin Total Bilirubin AST Lactate Dehydrogenase Total Creatine Kinase C-Reactive Protein Total Protein Albumin TSH Free T3 Index Urine WBC (Auto) Urine Creatinine Salicylates Acetaminophen Valproic Acid SARS-CoV-2 (PCR) 07/25/22 07/25/22 07/25/22 00:10 04:22 04:22 WBC RBC 2.86 L Hgb 9.4 L Hct 28.5 L MCV 100 H MCH 33 H RDW 15.4 H Plt Count [place] % (Auto) Seg Neutrophils % Seg Neutrophils # PT APTT D-Dimer ABG pH ABG pO2 ABG HCO3 ABG O2 Saturation ABG Base Excess ABG Hemoglobin Oxyhemoglobin Sodium Potassium Chloride Carbon Dioxide 31 H BUN Creatinine 0.3 L Glucose 135 H POC Glucose 131 H Lactic Acid Uric Acid Calcium 8.0 L Phosphorus 2.20 L Magnesium Ferritin Total Bilirubin AST Lactate Dehydrogenase Total Creatine Kinase C-Reactive Protein Total Protein Albumin TSH Free T3 Index Urine WBC (Auto) Urine Creatinine Salicylates Acetaminophen Valproic Acid SARS-CoV-2 (PCR) 07/25/22 07/25/22 07/25/22 05:17 11:49 17:27 WBC RBC Hgb Hct MCV MCH RDW Plt Count [place] % (Auto) Seg Neutrophils % Seg Neutrophils # PT APTT D-Dimer ABG pH ABG pO2 ABG HCO3 ABG O2 Saturation ABG Base Excess ABG Hemoglobin Oxyhemoglobin Sodium Potassium Chloride Carbon Dioxide BUN Creatinine Glucose POC Glucose 155 H 140 H 123 H Lactic Acid Uric Acid Calcium Phosphorus Magnesium Ferritin Total Bilirubin AST Lactate Dehydrogenase Total Creatine Kinase C-Reactive Protein Total Protein Albumin TSH Free T3 Index Urine WBC (Auto) Urine Creatinine Salicylates Acetaminophen Valproic Acid SARS-CoV-2 (PCR) 07/25/22 07/26/22 07/26/22 23:57 06:00 06:08 WBC RBC Hgb Hct MCV MCH RDW Plt Count [place] % (Auto) Seg Neutrophils % Seg Neutrophils # PT APTT D-Dimer ABG pH ABG pO2 ABG HCO3 ABG O2 Saturation ABG Base Excess ABG Hemoglobin Oxyhemoglobin Sodium Potassium 3.5 L Chloride Carbon Dioxide 32 H BUN Creatinine 0.3 L Glucose 116 H POC Glucose 124 H 134 H Lactic Acid Uric Acid Calcium 7.9 L Phosphorus Magnesium Ferritin Total Bilirubin AST Lactate Dehydrogenase Total Creatine Kinase C-Reactive Protein Total Protein Albumin TSH Free T3 Index Urine WBC (Auto) Urine Creatinine Salicylates Acetaminophen Valproic Acid SARS-CoV-2 (PCR) 07/26/22 07/26/22 07/26/22 13:38 17:22 23:22 WBC RBC Hgb Hct MCV MCH RDW Plt Count [place] % (Auto) Seg Neutrophils % Seg Neutrophils # PT APTT D-Dimer ABG pH ABG pO2 ABG HCO3 ABG O2 Saturation ABG Base Excess ABG Hemoglobin Oxyhemoglobin Sodium Potassium Chloride Carbon Dioxide BUN Creatinine Glucose POC Glucose 112 H 123 H 117 H Lactic Acid Uric Acid Calcium Phosphorus Magnesium Ferritin Total Bilirubin AST Lactate Dehydrogenase Total Creatine Kinase C-Reactive Protein Total Protein Albumin TSH Free T3 Index Urine WBC (Auto) Urine Creatinine Salicylates Acetaminophen Valproic Acid SARS-CoV-2 (PCR) 07/26/22 07/27/22 07/27/22 Unknown 05:54 10:00 WBC RBC 2.61 L Hgb 8.8 L Hct 26.2 L MCV 100 H MCH 34 H RDW 15.6 H Plt Count [place] % (Auto) Seg Neutrophils % Seg Neutrophils # PT APTT D-Dimer ABG pH ABG pO2 ABG HCO3 ABG O2 Saturation ABG Base Excess ABG Hemoglobin Oxyhemoglobin Sodium Potassium Chloride Carbon Dioxide BUN Creatinine 0.3 L Glucose 125 H POC Glucose 124 H Lactic Acid Uric Acid Calcium 8.3 L Phosphorus 1.90 L Magnesium Ferritin Total Bilirubin AST Lactate Dehydrogenase Total Creatine Kinase C-Reactive Protein Total Protein Albumin TSH Free T3 Index Urine WBC (Auto) Urine Creatinine Salicylates Acetaminophen Valproic Acid SARS-CoV-2 (PCR) 07/27/22 07/27/22 07/27/22 11:06 18:32 23:20 WBC RBC Hgb Hct MCV MCH RDW Plt Count [place] % (Auto) Seg Neutrophils % Seg Neutrophils # PT APTT D-Dimer ABG pH ABG pO2 ABG HCO3 ABG O2 Saturation ABG Base Excess ABG Hemoglobin Oxyhemoglobin Sodium Potassium Chloride Carbon Dioxide BUN Creatinine Glucose POC Glucose 133 H 119 H 110 H Lactic Acid Uric Acid Calcium Phosphorus Magnesium Ferritin Total Bilirubin AST Lactate Dehydrogenase Total Creatine Kinase C-Reactive Protein Total Protein Albumin TSH Free T3 Index Urine WBC (Auto) Urine Creatinine Salicylates Acetaminophen Valproic Acid SARS-CoV-2 (PCR) 07/28/22 05:37 WBC RBC Hgb Hct MCV MCH RDW Plt Count [place] % (Auto) Seg Neutrophils % Seg Neutrophils # PT APTT D-Dimer ABG pH ABG pO2 ABG HCO3 ABG O2 Saturation ABG Base Excess ABG Hemoglobin Oxyhemoglobin Sodium Potassium Chloride Carbon Dioxide BUN Creatinine Glucose POC Glucose 127 H Lactic Acid Uric Acid Calcium Phosphorus Magnesium Ferritin Total Bilirubin AST Lactate Dehydrogenase Total Creatine Kinase C-Reactive Protein Total Protein Albumin TSH Free T3 Index Urine WBC (Auto) Urine Creatinine Salicylates Acetaminophen Valproic Acid SARS-CoV-2 (PCR)
[2022-07-29] MEDS: INSULIN LISPRO 100 UNIT/ML SUB-Q SCH ×4 (00:09→18:20)
[2022-07-29 04:58] LABS: Hematocrit 26.6 % (30.3-42.9); Hemoglobin 8.8 gm/dl (10.1-14.3); Mean Corpuscular HGB Conc 33 % (30-34); Mean Corpuscular Volume 101 fl (79-97); Platelet Count 251 K/mm3 (140-440); Red Blood Count 2.64 M/mm3 (3.65-5.03); Red Cell Distribution Width 16.4 % (13.2-15.2)
[2022-07-29 05:54] LABS: Blood Urea Nitrogen 11 mg/dL (7-17); Calcium 8.2 mg/dL (8.4-10.2); Hemolysis Index 6
[2022-07-29] MEDS: LEVOTHYROXINE 75 MCG TAB FEEDTUBE SCH (05:56)
[2022-07-29] MEDS: HEPARIN 5,000 UNIT/1 ML VIAL SUB-Q SCH ×2 (05:56→18:20)
[2022-07-29 06:01] LABS: BUN/Creatinine Ratio 37
[2022-07-29] MEDS: CHOLECALCIFEROL (VIT D3) 1000 UNIT (25 mcg) TAB FEEDTUBE SCH (10:13)
[2022-07-29] MEDS: SENNOSIDES/DOCUSATE SODIUM 8.6/50 MG TAB FEEDTUBE SCH ×2 (10:13→22:01)
[2022-07-29] MEDS: FAMOTIDINE 20 MG TAB FEEDTUBE SCH ×2 (10:13→22:00)
[2022-07-29] MEDS: VALPROIC ACID 250 MG/5 ML ORAL LIQD FEEDTUBE SCH ×2 (10:13→22:00)
--- NOTE | 2022-07-29 11:53 | Progress Note ---
Assessment and Plan 76 y/o female with acute respiratory failure secondary to altered mental status, most likely from electrolyte abnormalities seen on chemistry, found to be COVID positive. 07/29/22: Daily PSV trials. Hold laxatives and stimulants for now. No changes were made in any other meds. Monitor white count and abdominal exam. 07/26/22: Daily PSV trials. Continue tube feeds. Awaiting placement. 07/25/22: Daily PSV trials. Tube feeds going and tolerating. Need to consider at least PT consult to help with movement of lower ext. 07/24/22: Continue tube feeds. Continue daily PSV trials. Await placement, weanable but will need time. 07/23/22: Tube feeds back on. No PSV trials today but will do again tomorrow. Awaiting placement. 07/22/22: Trach and Peg hopefully today. 07/21/22: Did 6 hours of PSV yesterday. Trach and peg tomorrow. Check labs to make sure lytes are stable. 07/20/22: Trach/Peg Friday. Supportive care. 07/19/22: Appreciate Surgery. on Schedule for next week. Free T4 was normal. No current indication for stress dose steroids. Continue supportive care. 07/18/22: Family meeting: Discussed current mental state. Discussed negative work up so far to explain why mental state hasnt improved. Per family here, patient was better than what she is not but I had difficult time placing a time frame as to when that was, maybe May. It does appear that she has had a steady decline mentally and even stopped eating. There were talks prior to her admission here about Peg tube placement. Discussed the idea of trach and peg placement. Also explained to family that trach does not fix any underlying reason as to why the patient's mental state is the way it is. The family wasn't aware that she was brought in for altered mental status, they were told she had bradycardia. Nonetheless, the family as a whole wish to pursue trach and peg placement. Consulted Surgery and hopeful they will see soon. Continue supportive measures and continue daily PSV trials. TSH on admit was 13, will repeat but if T4 is normal, nothing to do. She also is not behaving like myxedema coma. Guarded prognosis. 07/17/22: steroids end today. Continue daily PSV trials. Will speak with family about next steps as today is day 10 of intubation and it does not appear that conventional extubation is in the near future. 07/16/22: Continue daily PSV trials. Will speak with family tomorrow as patient is not improving enough for conventional extubation, especially with frequent apnic events. Most likely patient will need trach and peg. 07/15/22: mental status is still unchanged. Eyes open but not tracking or fo llowing commands. Also going apnic on PSV trials. Most likely will need trach and peg given mental status has not improved. 07/12/22: Negative MRI for acute infarct. Na is normal. Continue to monitor. Daily PSV trials. Has been intubated now for 5 days. 07/11/22: for MRI today. Appreciate renal help, agree with signing off. Attempt daily PSV. Guarded prognosis. 07/10: follow up MRI. Get official EEG read but no status. Continue daily PSV trials. Guarded prognosis 07/09/22: Continue supportive measures. Continue to fix Na, if no improvement in mental state with normal sodium then will pursue MRI. Picc placed today. 07/08/22: No further sedation. 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 Consider neurology consult and may need to obtain MRI. Attempt PSV trials today. needs Picc line placed for jail access as patient is a difficult stick. Feed patient and monitor lytes. 1. Discontinue sedation 2. Wean FiO2 for sats >88% and PaO2 greater than 60 3. Agree with fluid resuscitation, patient needs free water 4. Will follow up with family to find out exactly what patient mental status was a facility CCT 31 minutes. Subjective Date of service: 07/29/22 Principal diagnosis: Hypernatremia Interval history: no acute events. Awaiting placement. has been having loose stools. no fever, no white count, no abdominal tenderness or bloating. Tolerating feeds. Objective Vital Signs - 12hr 07/29/22 07/29/22 07/29/22 00:00 01:00 02:00 Temperature Pulse Rate 96 H 103 H 103 H Pulse Rate [ From Monitor] Respiratory 4 L 11 L 12 Rate Blood Pressure 121/72 115/76 119/66 O2 Sat by Pulse 100 100 100 Oximetry O2 Sat by Pulse 100 Oximetry [ Assessment] 07/29/22 07/29/22 07/29/22 03:00 04:00 04:35 Temperature 98.6 F Pulse Rate 101 H 98 H 94 H Pulse Rate [ From Monitor] Respiratory 12 11 L 4 L Rate Blood Pressure 125/93 116/86 116/86 O2 Sat by Pulse 100 100 100 Oximetry O2 Sat by Pulse Oximetry [ Assessment] 07/29/22 07/29/22 07/29/22 05:00 06:00 07:00 Temperature Pulse Rate 99 H 87 86 Pulse Rate [ From Monitor] Respiratory 10 L 11 L 11 L Rate Blood Pressure 102/66 110/64 101/62 O2 Sat by Pulse 100 100 Oximetry O2 Sat by Pulse Oximetry [ Assessment] 07/29/22 07/29/22 07/29/22 07:17 08:00 09:00 Temperature 99.0 F 98.9 F Pulse Rate 91 H 99 H Pulse Rate [ 83 From Monitor] Respiratory 10 L 11 L Rate Blood Pressure 151/131 96/56 O2 Sat by Pulse 100 100 Oximetry O2 Sat by Pulse 100 Oximetry [ Assessment] 07/29/22 07/29/22 07/29/22 10:00 11:00 11:43 Temperature 98.7 F Pulse Rate 87 92 H Pulse Rate [ From Monitor] Respiratory 13 10 L Rate Blood Pressure 107/66 102/63 O2 Sat by Pulse 100 100 Oximetry O2 Sat by Pulse Oximetry [ Assessment] Constitutional: comatose ENT: other (orally intubated) Neck: supple Effort: normal Ascultation: Bilateral: clear Percussion: Bilateral: not dull Cardiovascular: regular rate and rhythm Gastrointestinal: normoactive bowel sounds, soft Extremities: no cyanosis, no edema Neurologic: unable to assess CBC and BMP: 07/29/22 04:05 07/29/22 04:05 ABG, PT/INR, D-dimer: ABG ABG pH 7.503 pH Units (7.350-7.450) H 07/20/22 05:30 ABG pCO2 42.7 mm Hg 07/20/22 05:30 ABG pO2 99.1 mm Hg (80.0-90.0) H 07/20/22 05:30 ABG O2 Saturation 97.8 % (95.0-99.0) 07/20/22 05:30 PT/INR, D-dimer PT 13.0 Sec. (12.2-14.9) 07/22/22 04:13 INR 0.87 (0.87-1.13) 07/22/22 04:13 D-Dimer 925.80 ng/mlDDU (0-234) H 07/12/22 04:00 Abnormal lab findings: Abnormal Labs 07/07/22 07/07/22 07/07/22 03:17 03:38 03:38 WBC RBC 5.43 H Hgb 18.2 H Hct 54.9 H MCV 101 H MCH 34 H RDW Plt Count 104 L [place] % (Auto) Seg Neutrophils % Seg Neutrophils # PT 15.0 H APTT 23.0 L D-Dimer ABG pH ABG pO2 ABG HCO3 ABG O2 Saturation ABG Base Excess ABG Hemoglobin Oxyhemoglobin Sodium Potassium Chloride Carbon Dioxide BUN Creatinine Glucose POC Glucose Lactic Acid Uric Acid Calcium Phosphorus Magnesium Ferritin Total Bilirubin AST Lactate Dehydrogenase Total Creatine Kinase C-Reactive Protein Total Protein Albumin TSH Free T3 Index Urine WBC (Auto) 7.0 H Urine Creatinine Salicylates Acetaminophen Valproic Acid SARS-CoV-2 (PCR) 07/07/22 07/07/22 07/07/22 03:38 03:38 03:38 WBC RBC Hgb Hct MCV MCH RDW Plt Count [place] % (Auto) Seg Neutrophils % Seg Neutrophils # PT APTT D-Dimer ABG pH ABG pO2 ABG HCO3 ABG O2 Saturation ABG Base Excess ABG Hemoglobin Oxyhemoglobin Sodium Potassium Chloride Carbon Dioxide BUN Creatinine Glucose POC Glucose Lactic Acid Uric Acid Calcium Phosphorus Magnesium 3.30 H Ferritin Total Bilirubin AST Lactate Dehydrogenase Total Creatine Kinase 1826 H C-Reactive Protein Total Protein Albumin TSH Free T3 Index Urine WBC (Auto) Urine Creatinine Salicylates < 0.3 L Acetaminophen 5.0 L Valproic Acid 7.0 L SARS-CoV-2 (PCR) 07/07/22 07/07/22 07/07/22 04:17 04:17 04:17 WBC RBC Hgb Hct MCV MCH RDW Plt Count [place] % (Auto) Seg Neutrophils % Seg Neutrophils # PT APTT D-Dimer ABG pH ABG pO2 ABG HCO3 ABG O2 Saturation ABG Base Excess ABG Hemoglobin Oxyhemoglobin Sodium 168 H* Potassium 3.2 L Chloride 122.2 H Carbon Dioxide BUN 52 H Creatinine Glucose 158 H POC Glucose Lactic Acid 3.50 H* Uric Acid Calcium 10.9 H Phosphorus Magnesium Ferritin Total Bilirubin 1.40 H AST 47 H Lactate Dehydrogenase Total Creatine Kinase C-Reactive Protein Total Protein Albumin TSH 12.790 H Free T3 Index Urine WBC (Auto) Urine Creatinine Salicylates Acetaminophen Valproic Acid SARS-CoV-2 (PCR) 07/07/22 07/07/22 07/07/22 04:17 07:43 09:35 WBC RBC Hgb Hct MCV MCH RDW Plt Count [place] % (Auto) Seg Neutrophils % Seg Neutrophils # PT APTT D-Dimer ABG pH ABG pO2 377.3 H ABG HCO3 ABG O2 Saturation 99.6 H ABG Base Excess -2.5 L ABG Hemoglobin Oxyhemoglobin Sodium Potassium Chloride Carbon Dioxide BUN Creatinine Glucose POC Glucose Lactic Acid 6.30 H* Uric Acid 13.5 H Calcium Phosphorus Magnesium Ferritin Total Bilirubin AST Lactate Dehydrogenase Total Creatine Kinase C-Reactive Protein Total Protein Albumin TSH Free T3 Index Urine WBC (Auto) Urine Creatinine Salicylates Acetaminophen Valproic Acid SARS-CoV-2 (PCR) 07/07/22 07/07/22 07/07/22 15:00 16:00 16:00 WBC RBC Hgb Hct MCV MCH RDW Plt Count [place] % (Auto) Seg Neutrophils % Seg Neutrophils # PT APTT D-Dimer ABG pH ABG pO2 ABG HCO3 ABG O2 Saturation ABG Base Excess ABG Hemoglobin Oxyhemoglobin Sodium 166 H* Potassium Chloride 124.8 H Carbon Dioxide 20 L BUN 41 H Creatinine Glucose 157 H POC Glucose Lactic Acid 7.00 H* Uric Acid Calcium Phosphorus Magnesium Ferritin Total Bilirubin AST 81 H Lactate Dehydrogenase Total Creatine Kinase C-Reactive Protein Total Protein Albumin TSH Free T3 Index Urine WBC (Auto) Urine Creatinine Salicylates Acetaminophen Valproic Acid SARS-CoV-2 (PCR) Positive A 07/07/22 07/07/22 07/07/22 16:45 23:42 23:42 WBC RBC Hgb Hct MCV MCH RDW Plt Count [place] % (Auto) Seg Neutrophils % Seg Neutrophils # PT APTT D-Dimer ABG pH ABG pO2 ABG HCO3 ABG O2 Saturation ABG Base Excess ABG Hemoglobin Oxyhemoglobin Sodium 165 H* Potassium 3.0 L Chloride 122.8 H Carbon Dioxide BUN 38 H Creatinine Glucose 232 H POC Glucose Lactic Acid 5.60 H* Uric Acid Calcium Phosphorus Magnesium Ferritin Total Bilirubin AST Lactate Dehydrogenase Total Creatine Kinase C-Reactive Protein Total Protein Albumin TSH Free T3 Index Urine WBC (Auto) Urine Creatinine 92.9 H Salicylates Acetaminophen Valproic Acid SARS-CoV-2 (PCR) 07/07/22 07/07/22 07/08/22 Unknown Unknown 05:30 WBC RBC Hgb Hct MCV MCH RDW Plt Count [place] % (Auto) Seg Neutrophils % Seg Neutrophils # PT APTT D-Dimer ABG pH 7.553 H 7.473 H ABG pO2 61.7 L 121.7 H ABG HCO3 ABG O2 Saturation 94.7 L ABG Base Excess 4.3 H ABG Hemoglobin 18.0 H Oxyhemoglobin 93.1 L Sodium 163 H* Potassium 6.3 H* D Chloride 123.7 H Carbon Dioxide BUN 42 H Creatinine Glucose 169 H POC Glucose Lactic Acid Uric Acid Calcium Phosphorus Magnesium Ferritin Total Bilirubin AST Lactate Dehydrogenase Total Creatine Kinase C-Reactive Protein Total Protein Albumin TSH Free T3 Index Urine WBC (Auto) Urine Creatinine Salicylates Acetaminophen Valproic Acid SARS-CoV-2 (PCR) 07/08/22 07/08/22 07/08/22 05:36 11:21 14:54 WBC 11.1 H RBC Hgb Hct MCV 101 H MCH 33 H RDW Plt Count 69 L [place] % (Auto) Seg Neutrophils % 82.0 H Seg Neutrophils # 9.1 H PT APTT D-Dimer ABG pH ABG pO2 ABG HCO3 ABG O2 Saturation ABG Base Excess ABG Hemoglobin Oxyhemoglobin Sodium Potassium Chloride Carbon Dioxide BUN Creatinine Glucose POC Glucose 174 H 148 H Lactic Acid Uric Acid Calcium Phosphorus Magnesium Ferritin Total Bilirubin AST Lactate Dehydrogenase Total Creatine Kinase C-Reactive Protein Total Protein Albumin TSH Free T3 Index Urine WBC (Auto) Urine Creatinine Salicylates Acetaminophen Valproic Acid SARS-CoV-2 (PCR) 07/08/22 07/08/22 07/08/22 14:54 14:54 14:54 WBC RBC Hgb Hct MCV MCH RDW Plt Count [place] % (Auto) Seg Neutrophils % Seg Neutrophils # PT APTT D-Dimer ABG pH ABG pO2 ABG HCO3 ABG O2 Saturation ABG Base Excess ABG Hemoglobin Oxyhemoglobin Sodium 163 H* Potassium 2.9 L* Chloride 123.7 H Carbon Dioxide BUN 30 H Creatinine Glucose 161 H POC Glucose Lactic Acid 6.10 H* Uric Acid Calcium Phosphorus Magnesium Ferritin Total Bilirubin AST 69 H Lactate Dehydrogenase Total Creatine Kinase 2335 H C-Reactive Protein Total Protein 5.6 L D Albumin 3.1 L TSH Free T3 Index Urine WBC (Auto) Urine Creatinine Salicylates Acetaminophen Valproic Acid SARS-CoV-2 (PCR) 07/08/22 07/08/22 07/08/22 14:54 14:54 14:54 WBC RBC Hgb Hct MCV MCH RDW Plt Count [place] % (Auto) Seg Neutrophils % Seg Neutrophils # PT APTT D-Dimer 499.72 H ABG pH ABG pO2 ABG HCO3 ABG O2 Saturation ABG Base Excess ABG Hemoglobin Oxyhemoglobin Sodium Potassium Chloride Carbon Dioxide BUN Creatinine Glucose POC Glucose Lactic Acid Uric Acid Calcium Phosphorus Magnesium Ferritin 722.1 H Total Bilirubin AST Lactate Dehydrogenase 455 H Total Creatine Kinase C-Reactive Protein 1.60 H Total Protein Albumin TSH Free T3 Index Urine WBC (Auto) Urine Creatinine Salicylates Acetaminophen Valproic Acid SARS-CoV-2 (PCR) 07/08/22 07/08/22 07/09/22 19:13 19:53 00:09 WBC RBC Hgb Hct MCV MCH RDW Plt Count [place] % (Auto) Seg Neutrophils % Seg Neutrophils # PT APTT D-Dimer ABG pH ABG pO2 ABG HCO3 ABG O2 Saturation ABG Base Excess ABG Hemoglobin Oxyhemoglobin Sodium 160 H Potassium 3.5 L D Chloride 122.0 H Carbon Dioxide 20 L BUN 28 H Creatinine Glucose 151 H POC Glucose 138 H Lactic Acid 5.70 H* Uric Acid Calcium Phosphorus Magnesium Ferritin Total Bilirubin AST Lactate Dehydrogenase Total Creatine Kinase C-Reactive Protein Total Protein Albumin TSH Free T3 Index Urine WBC (Auto) Urine Creatinine Salicylates Acetaminophen Valproic Acid SARS-CoV-2 (PCR) 07/09/22 07/09/22 07/09/22 00:45 03:21 03:21 WBC RBC Hgb Hct MCV MCH RDW Plt Count [place] % (Auto) Seg Neutrophils % Seg Neutrophils # PT APTT D-Dimer ABG pH ABG pO2 ABG HCO3 ABG O2 Saturation ABG Base Excess ABG Hemoglobin Oxyhemoglobin Sodium 158 H 157 H Potassium Chloride 124.2 H 125.0 H Carbon Dioxide 20 L 20 L BUN 25 H 24 H Creatinine Glucose 147 H 169 H POC Glucose Lactic Acid 4.70 H* Uric Acid Calcium Phosphorus Magnesium Ferritin Total Bilirubin AST 81 H Lactate Dehydrogenase Total Creatine Kinase C-Reactive Protein Total Protein 5.7 L Albumin 2.8 L TSH Free T3 Index Urine WBC (Auto) Urine Creatinine Salicylates Acetaminophen Valproic Acid SARS-CoV-2 (PCR) 07/09/22 07/09/22 07/09/22 04:40 05:35 08:14 WBC RBC Hgb Hct MCV 102 H MCH 33 H RDW Plt Count 74 L [place] % (Auto) Seg Neutrophils % Seg Neutrophils # PT APTT D-Dimer ABG pH ABG pO2 172.1 H ABG HCO3 ABG O2 Saturation 99.1 H ABG Base Excess -2.8 L ABG Hemoglobin Oxyhemoglobin Sodium Potassium Chloride Carbon Dioxide BUN Creatinine Glucose POC Glucose 108 H Lactic Acid Uric Acid Calcium Phosphorus Magnesium Ferritin Total Bilirubin AST Lactate Dehydrogenase Total Creatine Kinase C-Reactive Protein Total Protein Albumin TSH Free T3 Index Urine WBC (Auto) Urine Creatinine Salicylates Acetaminophen Valproic Acid SARS-CoV-2 (PCR) 07/09/22 07/09/22 07/09/22 11:16 11:27 16:20 WBC RBC Hgb Hct MCV MCH RDW Plt Count [place] % (Auto) Seg Neutrophils % Seg Neutrophils # PT APTT D-Dimer ABG pH ABG pO2 ABG HCO3 ABG O2 Saturation ABG Base Excess ABG Hemoglobin Oxyhemoglobin Sodium 155 H Potassium Chloride 121.3 H Carbon Dioxide BUN 21 H Creatinine Glucose 170 H POC Glucose 173 H 190 H Lactic Acid Uric Acid Calcium Phosphorus Magnesium Ferritin Total Bilirubin AST Lactate Dehydrogenase Total Creatine Kinase C-Reactive Protein Total Protein Albumin TSH Free T3 Index Urine WBC (Auto) Urine Creatinine Salicylates Acetaminophen Valproic Acid SARS-CoV-2 (PCR) 07/09/22 07/10/22 07/10/22 17:16 00:04 04:21 WBC RBC Hgb Hct MCV MCH RDW Plt Count [place] % (Auto) Seg Neutrophils % Seg Neutrophils # PT APTT D-Dimer ABG pH ABG pO2 ABG HCO3 ABG O2 Saturation ABG Base Excess ABG Hemoglobin Oxyhemoglobin Sodium 149 H 150 H Potassium Chloride 115.6 H 115.0 H Carbon Dioxide BUN 18 H Creatinine 0.5 L Glucose 207 H 178 H POC Glucose 180 H Lactic Acid Uric Acid Calcium 7.9 L Phosphorus Magnesium Ferritin Total Bilirubin AST 89 H Lactate Dehydrogenase 431 H Total Creatine Kinase C-Reactive Protein Total Protein 4.9 L Albumin 2.5 L TSH Free T3 Index Urine WBC (Auto) Urine Creatinine Salicylates Acetaminophen Valproic Acid SARS-CoV-2 (PCR) 07/10/22 07/10/22 07/10/22 04:21 04:21 04:21 WBC 11.8 H RBC 3.52 L Hgb Hct MCV 99 H MCH 33 H RDW Plt Count 67 L [place] % (Auto) Seg Neutrophils % Seg Neutrophils # PT APTT D-Dimer 585.71 H ABG pH ABG pO2 ABG HCO3 ABG O2 Saturation ABG Base Excess ABG Hemoglobin Oxyhemoglobin Sodium Potassium Chloride Carbon Dioxide BUN Creatinine Glucose POC Glucose Lactic Acid Uric Acid Calcium Phosphorus Magnesium Ferritin 631.3 H Total Bilirubin AST Lactate Dehydrogenase Total Creatine Kinase C-Reactive Protein Total Protein Albumin TSH Free T3 Index Urine WBC (Auto) Urine Creatinine Salicylates Acetaminophen Valproic Acid SARS-CoV-2 (PCR) 07/10/22 07/10/22 07/10/22 04:21 04:55 05:26 WBC RBC Hgb Hct MCV MCH RDW Plt Count [place] % (Auto) Seg Neutrophils % Seg Neutrophils # PT APTT D-Dimer ABG pH ABG pO2 76.8 L ABG HCO3 ABG O2 Saturation ABG Base Excess ABG Hemoglobin 10.4 L Oxyhemoglobin 94.5 L Sodium Potassium Chloride Carbon Dioxide BUN Creatinine Glucose POC Glucose 147 H Lactic Acid 2.50 H* Uric Acid Calcium Phosphorus Magnesium Ferritin Total Bilirubin AST Lactate Dehydrogenase Total Creatine Kinase C-Reactive Protein Total Protein Albumin TSH Free T3 Index Urine WBC (Auto) Urine Creatinine Salicylates Acetaminophen Valproic Acid SARS-CoV-2 (PCR) 07/10/22 07/10/22 07/10/22 08:24 11:31 12:53 WBC RBC Hgb Hct MCV MCH RDW Plt Count [place] % (Auto) Seg Neutrophils % Seg Neutrophils # PT APTT D-Dimer ABG pH ABG pO2 ABG HCO3 ABG O2 Saturation ABG Base Excess ABG Hemoglobin Oxyhemoglobin Sodium Potassium Chloride 110.9 H Carbon Dioxide BUN Creatinine 0.5 L Glucose 200 H POC Glucose 166 H Lactic Acid 2.10 H* Uric Acid Calcium 8.3 L Phosphorus Magnesium Ferritin Total Bilirubin AST Lactate Dehydrogenase Total Creatine Kinase C-Reactive Protein Total Protein Albumin TSH Free T3 Index Urine WBC (Auto) Urine Creatinine Salicylates Acetaminophen Valproic Acid SARS-CoV-2 (PCR) 07/10/22 07/10/22 07/10/22 17:37 18:53 23:30 WBC RBC Hgb Hct MCV MCH RDW Plt Count [place] % (Auto) Seg Neutrophils % Seg Neutrophils # PT APTT D-Dimer ABG pH ABG pO2 ABG HCO3 ABG O2 Saturation ABG Base Excess ABG Hemoglobin Oxyhemoglobin Sodium Potassium Chloride 109.5 H 110.2 H Carbon Dioxide BUN Creatinine 0.5 L 0.5 L Glucose 243 H 208 H POC Glucose 237 H Lactic Acid Uric Acid Calcium 8.1 L 8.1 L Phosphorus Magnesium Ferritin Total Bilirubin AST Lactate Dehydrogenase Total Creatine Kinase C-Reactive Protein Total Protein Albumin TSH Free T3 Index Urine WBC (Auto) Urine Creatinine Salicylates Acetaminophen Valproic Acid SARS-CoV-2 (PCR) 07/10/22 07/11/22 07/11/22 23:57 04:00 04:15 WBC 11.2 H RBC Hgb Hct MCV 99 H MCH RDW Plt Count 73 L [place] % (Auto) Seg Neutrophils % Seg Neutrophils # PT APTT D-Dimer ABG pH ABG pO2 107.4 H ABG HCO3 ABG O2 Saturation ABG Base Excess ABG Hemoglobin Oxyhemoglobin Sodium Potassium Chloride Carbon Dioxide BUN Creatinine Glucose POC Glucose 195 H Lactic Acid Uric Acid Calcium Phosphorus Magnesium Ferritin Total Bilirubin AST Lactate Dehydrogenase Total Creatine Kinase C-Reactive Protein Total Protein Albumin TSH Free T3 Index Urine WBC (Auto) Urine Creatinine Salicylates Acetaminophen Valproic Acid SARS-CoV-2 (PCR) 07/11/22 07/11/22 07/11/22 05:40 05:40 06:06 WBC RBC Hgb Hct MCV MCH RDW Plt Count [place] % (Auto) Seg Neutrophils % Seg Neutrophils # PT APTT D-Dimer ABG pH ABG pO2 ABG HCO3 ABG O2 Saturation ABG Base Excess ABG Hemoglobin Oxyhemoglobin Sodium Potassium Chloride 109.8 H Carbon Dioxide BUN Creatinine 0.5 L Glucose 160 H POC Glucose 145 H Lactic Acid Uric Acid Calcium 8.3 L Phosphorus Magnesium Ferritin Total Bilirubin AST Lactate Dehydrogenase Total Creatine Kinase 1745 H C-Reactive Protein Total Protein Albumin TSH Free T3 Index Urine WBC (Auto) Urine Creatinine Salicylates Acetaminophen Valproic Acid SARS-CoV-2 (PCR) 07/11/22 07/11/22 07/11/22 11:55 11:59 17:44 WBC RBC Hgb Hct MCV MCH RDW Plt Count [place] % (Auto) Seg Neutrophils % Seg Neutrophils # PT APTT D-Dimer ABG pH ABG pO2 ABG HCO3 ABG O2 Saturation ABG Base Excess ABG Hemoglobin Oxyhemoglobin Sodium Potassium Chloride 107.8 H Carbon Dioxide BUN Creatinine 0.5 L Glucose 150 H POC Glucose 150 H 182 H Lactic Acid Uric Acid Calcium 8.2 L Phosphorus Magnesium Ferritin Total Bilirubin AST Lactate Dehydrogenase Total Creatine Kinase C-Reactive Protein Total Protein Albumin TSH Free T3 Index Urine WBC (Auto) Urine Creatinine Salicylates Acetaminophen Valproic Acid SARS-CoV-2 (PCR) 07/11/22 07/12/22 07/12/22 17:50 00:10 00:12 WBC RBC Hgb Hct MCV MCH RDW Plt Count [place] % (Auto) Seg Neutrophils % Seg Neutrophils # PT APTT D-Dimer ABG pH ABG pO2 ABG HCO3 ABG O2 Saturation ABG Base Excess ABG Hemoglobin Oxyhemoglobin Sodium Potassium Chloride 108.4 H Carbon Dioxide BUN Creatinine 0.5 L 0.4 L Glucose 191 H 163 H POC Glucose 154 H Lactic Acid Uric Acid Calcium 8.2 L 7.9 L Phosphorus Magnesium Ferritin Total Bilirubin AST Lactate Dehydrogenase Total Creatine Kinase C-Reactive Protein Total Protein Albumin TSH Free T3 Index Urine WBC (Auto) Urine Creatinine Salicylates Acetaminophen Valproic Acid SARS-CoV-2 (PCR) 07/12/22 07/12/22 07/12/22 04:00 04:00 04:00 WBC RBC Hgb Hct MCV MCH RDW Plt Count [place] % (Auto) Seg Neutrophils % Seg Neutrophils # PT APTT D-Dimer 925.80 H ABG pH ABG pO2 ABG HCO3 ABG O2 Saturation ABG Base Excess ABG Hemoglobin Oxyhemoglobin Sodium Potassium Chloride Carbon Dioxide BUN Creatinine Glucose POC Glucose Lactic Acid Uric Acid Calcium Phosphorus Magnesium Ferritin 519.5 H Total Bilirubin AST Lactate Dehydrogenase 444 H Total Creatine Kinase C-Reactive Protein Total Protein Albumin TSH Free T3 Index Urine WBC (Auto) Urine Creatinine Salicylates Acetaminophen Valproic Acid SARS-CoV-2 (PCR) 07/12/22 07/12/22 07/12/22 04:00 05:00 05:03 WBC 11.7 H RBC 3.33 L Hgb Hct MCV 99 H MCH 33 H RDW Plt Count 68 L [place] % (Auto) Seg Neutrophils % Seg Neutrophils # PT APTT D-Dimer ABG pH 7.453 H ABG pO2 107.9 H ABG HCO3 27.9 H ABG O2 Saturation ABG Base Excess 3.7 H ABG Hemoglobin 10.9 L Oxyhemoglobin Sodium Potassium Chloride Carbon Dioxide BUN Creatinine Glucose POC Glucose 174 H Lactic Acid Uric Acid Calcium Phosphorus Magnesium Ferritin Total Bilirubin AST Lactate Dehydrogenase Total Creatine Kinase C-Reactive Protein Total Protein Albumin TSH Free T3 Index Urine WBC (Auto) Urine Creatinine Salicylates Acetaminophen Valproic Acid SARS-CoV-2 (PCR) 07/12/22 07/12/22 07/12/22 12:15 17:18 23:14 WBC RBC Hgb Hct MCV MCH RDW Plt Count [place] % (Auto) Seg Neutrophils % Seg Neutrophils # PT APTT D-Dimer ABG pH ABG pO2 ABG HCO3 ABG O2 Saturation ABG Base Excess ABG Hemoglobin Oxyhemoglobin Sodium Potassium Chloride Carbon Dioxide BUN Creatinine Glucose POC Glucose 154 H 154 H 167 H Lactic Acid Uric Acid Calcium Phosphorus Magnesium Ferritin Total Bilirubin AST Lactate Dehydrogenase Total Creatine Kinase C-Reactive Protein Total Protein Albumin TSH Free T3 Index Urine WBC (Auto) Urine Creatinine Salicylates Acetaminophen Valproic Acid SARS-CoV-2 (PCR) 07/13/22 07/13/22 07/13/22 04:00 04:10 05:14 WBC RBC 3.17 L Hgb Hct MCV 98 H MCH 34 H RDW Plt Count 75 L [place] % (Auto) Seg Neutrophils % Seg Neutrophils # PT APTT D-Dimer ABG pH ABG pO2 ABG HCO3 ABG O2 Saturation ABG Base Excess ABG Hemoglobin Oxyhemoglobin Sodium Potassium Chloride Carbon Dioxide BUN Creatinine 0.4 L Glucose 136 H POC Glucose 140 H Lactic Acid Uric Acid Calcium Phosphorus Magnesium Ferritin Total Bilirubin AST Lactate Dehydrogenase Total Creatine Kinase C-Reactive Protein Total Protein Albumin TSH Free T3 Index Urine WBC (Auto) Urine Creatinine Salicylates Acetaminophen Valproic Acid SARS-CoV-2 (PCR) 07/13/22 07/13/22 07/13/22 12:03 14:25 17:19 WBC RBC Hgb Hct MCV MCH RDW Plt Count [place] % (Auto) Seg Neutrophils % Seg Neutrophils # PT APTT D-Dimer ABG pH 7.478 H ABG pO2 118.1 H ABG HCO3 28.2 H ABG O2 Saturation ABG Base Excess 4.5 H ABG Hemoglobin Oxyhemoglobin Sodium Potassium Chloride Carbon Dioxide BUN Creatinine Glucose POC Glucose 193 H 189 H Lactic Acid Uric Acid Calcium Phosphorus Magnesium Ferritin Total Bilirubin AST Lactate Dehydrogenase Total Creatine Kinase C-Reactive Protein Total Protein Albumin TSH Free T3 Index Urine WBC (Auto) Urine Creatinine Salicylates Acetaminophen Valproic Acid SARS-CoV-2 (PCR) 07/13/22 07/13/22 07/14/22 23:52 Unknown 06:18 WBC RBC Hgb Hct MCV MCH RDW Plt Count [place] % (Auto) Seg Neutrophils % Seg Neutrophils # PT APTT D-Dimer ABG pH 7.465 H ABG pO2 128.8 H ABG HCO3 29.0 H ABG O2 Saturation ABG Base Excess 4.9 H ABG Hemoglobin 10.3 L Oxyhemoglobin Sodium Potassium Chloride Carbon Dioxide BUN Creatinine Glucose POC Glucose 174 H 167 H Lactic Acid Uric Acid Calcium Phosphorus Magnesium Ferritin Total Bilirubin AST Lactate Dehydrogenase Total Creatine Kinase C-Reactive Protein Total Protein Albumin TSH Free T3 Index Urine WBC (Auto) Urine Creatinine Salicylates Acetaminophen Valproic Acid SARS-CoV-2 (PCR) 07/14/22 07/14/22 07/15/22 11:34 17:20 00:25 WBC RBC Hgb Hct MCV MCH RDW Plt Count [place] % (Auto) Seg Neutrophils % Seg Neutrophils # PT APTT D-Dimer ABG pH ABG pO2 ABG HCO3 ABG O2 Saturation ABG Base Excess ABG Hemoglobin Oxyhemoglobin Sodium Potassium Chloride Carbon Dioxide BUN Creatinine Glucose POC Glucose 187 H 221 H 172 H Lactic Acid Uric Acid Calcium Phosphorus Magnesium Ferritin Total Bilirubin AST Lactate Dehydrogenase Total Creatine Kinase C-Reactive Protein Total Protein Albumin TSH Free T3 Index Urine WBC (Auto) Urine Creatinine Salicylates Acetaminophen Valproic Acid SARS-CoV-2 (PCR) 07/15/22 07/15/22 07/15/22 04:00 04:00 05:49 WBC 11.4 H RBC 3.13 L Hgb Hct MCV 98 H MCH 33 H RDW Plt Count 98 L [place] % (Auto) Seg Neutrophils % Seg Neutrophils # PT APTT D-Dimer ABG pH ABG pO2 ABG HCO3 ABG O2 Saturation ABG Base Excess ABG Hemoglobin Oxyhemoglobin Sodium Potassium Chloride Carbon Dioxide 34 H BUN Creatinine 0.4 L Glucose 126 H POC Glucose 143 H Lactic Acid Uric Acid Calcium Phosphorus Magnesium Ferritin Total Bilirubin AST Lactate Dehydrogenase Total Creatine Kinase C-Reactive Protein Total Protein Albumin TSH Free T3 Index Urine WBC (Auto) Urine Creatinine Salicylates Acetaminophen Valproic Acid SARS-CoV-2 (PCR) 07/15/22 07/15/22 07/16/22 11:19 16:16 00:19 WBC RBC Hgb Hct MCV MCH RDW Plt Count [place] % (Auto) Seg Neutrophils % Seg Neutrophils # PT APTT D-Dimer ABG pH ABG pO2 ABG HCO3 ABG O2 Saturation ABG Base Excess ABG Hemoglobin Oxyhemoglobin Sodium Potassium Chloride Carbon Dioxide BUN Creatinine Glucose POC Glucose 158 H 227 H 153 H Lactic Acid Uric Acid Calcium Phosphorus Magnesium Ferritin Total Bilirubin AST Lactate Dehydrogenase Total Creatine Kinase C-Reactive Protein Total Protein Albumin TSH Free T3 Index Urine WBC (Auto) Urine Creatinine Salicylates Acetaminophen Valproic Acid SARS-CoV-2 (PCR) 07/16/22 07/16/22 07/16/22 04:20 04:20 11:28 WBC RBC 3.16 L Hgb Hct MCV 99 H MCH 33 H RDW Plt Count 101 L [place] % (Auto) Seg Neutrophils % Seg Neutrophils # PT APTT D-Dimer ABG pH ABG pO2 ABG HCO3 ABG O2 Saturation ABG Base Excess ABG Hemoglobin Oxyhemoglobin Sodium Potassium Chloride Carbon Dioxide 36 H BUN 18 H Creatinine 0.4 L Glucose 139 H POC Glucose 158 H Lactic Acid Uric Acid Calcium Phosphorus Magnesium Ferritin Total Bilirubin AST Lactate Dehydrogenase Total Creatine Kinase C-Reactive Protein Total Protein Albumin TSH Free T3 Index Urine WBC (Auto) Urine Creatinine Salicylates Acetaminophen Valproic Acid SARS-CoV-2 (PCR) 07/16/22 07/17/22 07/17/22 16:30 00:07 05:46 WBC RBC Hgb Hct MCV MCH RDW Plt Count [place] % (Auto) Seg Neutrophils % Seg Neutrophils # PT APTT D-Dimer ABG pH ABG pO2 ABG HCO3 ABG O2 Saturation ABG Base Excess ABG Hemoglobin Oxyhemoglobin Sodium Potassium Chloride Carbon Dioxide BUN Creatinine Glucose POC Glucose 201 H 139 H 123 H Lactic Acid Uric Acid Calcium Phosphorus Magnesium Ferritin Total Bilirubin AST Lactate Dehydrogenase Total Creatine Kinase C-Reactive Protein Total Protein Albumin TSH Free T3 Index Urine WBC (Auto) Urine Creatinine Salicylates Acetaminophen Valproic Acid SARS-CoV-2 (PCR) 07/17/22 07/17/22 07/17/22 13:30 17:51 23:49 WBC RBC Hgb Hct MCV MCH RDW Plt Count [place] % (Auto) Seg Neutrophils % Seg Neutrophils # PT APTT D-Dimer ABG pH ABG pO2 ABG HCO3 ABG O2 Saturation ABG Base Excess ABG Hemoglobin Oxyhemoglobin Sodium Potassium Chloride Carbon Dioxide BUN Creatinine Glucose POC Glucose 185 H 219 H 133 H Lactic Acid Uric Acid Calcium Phosphorus Magnesium Ferritin Total Bilirubin AST Lactate Dehydrogenase Total Creatine Kinase C-Reactive Protein Total Protein Albumin TSH Free T3 Index Urine WBC (Auto) Urine Creatinine Salicylates Acetaminophen Valproic Acid SARS-CoV-2 (PCR) 07/18/22 07/18/22 07/18/22 04:00 04:00 04:00 WBC 12.2 H RBC 3.34 L Hgb Hct MCV 100 H MCH 33 H RDW Plt Count 113 L [place] % (Auto) Seg Neutrophils % 77.3 H Seg Neutrophils # 9.4 H PT APTT D-Dimer ABG pH 7.508 H ABG pO2 115.9 H ABG HCO3 33.4 H ABG O2 Saturation ABG Base Excess 9.4 H ABG Hemoglobin 11.7 L Oxyhemoglobin Sodium Potassium Chloride Carbon Dioxide 35 H BUN Creatinine 0.4 L Glucose 130 H POC Glucose Lactic Acid Uric Acid Calcium Phosphorus Magnesium Ferritin Total Bilirubin AST Lactate Dehydrogenase Total Creatine Kinase C-Reactive Protein Total Protein Albumin TSH Free T3 Index Urine WBC (Auto) Urine Creatinine Salicylates Acetaminophen Valproic Acid SARS-CoV-2 (PCR) 07/18/22 07/18/22 07/18/22 04:42 12:31 12:31 WBC RBC Hgb Hct MCV MCH RDW Plt Count [place] % (Auto) Seg Neutrophils % Seg Neutrophils # PT APTT D-Dimer ABG pH ABG pO2 ABG HCO3 ABG O2 Saturation ABG Base Excess ABG Hemoglobin Oxyhemoglobin Sodium Potassium Chloride Carbon Dioxide BUN Creatinine Glucose POC Glucose 134 H Lactic Acid Uric Acid Calcium Phosphorus Magnesium Ferritin Total Bilirubin AST Lactate Dehydrogenase Total Creatine Kinase C-Reactive Protein Total Protein Albumin TSH 9.750 H Free T3 Index 1.7 L Urine WBC (Auto) Urine Creatinine Salicylates Acetaminophen Valproic Acid SARS-CoV-2 (PCR) 07/18/22 07/18/22 07/19/22 12:33 17:39 00:43 WBC RBC Hgb Hct MCV MCH RDW Plt Count [place] % (Auto) Seg Neutrophils % Seg Neutrophils # PT APTT D-Dimer ABG pH ABG pO2 ABG HCO3 ABG O2 Saturation ABG Base Excess ABG Hemoglobin Oxyhemoglobin Sodium Potassium Chloride Carbon Dioxide BUN Creatinine Glucose POC Glucose 172 H 164 H 132 H Lactic Acid Uric Acid Calcium Phosphorus Magnesium Ferritin Total Bilirubin AST Lactate Dehydrogenase Total Creatine Kinase C-Reactive Protein Total Protein Albumin TSH Free T3 Index Urine WBC (Auto) Urine Creatinine Salicylates Acetaminophen Valproic Acid SARS-CoV-2 (PCR) 07/19/22 07/19/22 07/19/22 05:08 12:30 17:42 WBC RBC Hgb Hct MCV MCH RDW Plt Count [place] % (Auto) Seg Neutrophils % Seg Neutrophils # PT APTT D-Dimer ABG pH ABG pO2 ABG HCO3 ABG O2 Saturation ABG Base Excess ABG Hemoglobin Oxyhemoglobin Sodium Potassium Chloride Carbon Dioxide BUN Creatinine Glucose POC Glucose 143 H 159 H 139 H Lactic Acid Uric Acid Calcium Phosphorus Magnesium Ferritin Total Bilirubin AST Lactate Dehydrogenase Total Creatine Kinase C-Reactive Protein Total Protein Albumin TSH Free T3 Index Urine WBC (Auto) Urine Creatinine Salicylates Acetaminophen Valproic Acid SARS-CoV-2 (PCR) 07/19/22 07/20/22 07/20/22 23:26 05:30 06:03 WBC RBC Hgb Hct MCV MCH RDW Plt Count [place] % (Auto) Seg Neutrophils % Seg Neutrophils # PT APTT D-Dimer ABG pH 7.503 H ABG pO2 99.1 H ABG HCO3 32.8 H ABG O2 Saturation ABG Base Excess 8.8 H ABG Hemoglobin 9.7 L Oxyhemoglobin Sodium Potassium Chloride Carbon Dioxide BUN Creatinine Glucose POC Glucose 144 H 146 H Lactic Acid Uric Acid Calcium Phosphorus Magnesium Ferritin Total Bilirubin AST Lactate Dehydrogenase Total Creatine Kinase C-Reactive Protein Total Protein Albumin TSH Free T3 Index Urine WBC (Auto) Urine Creatinine Salicylates Acetaminophen Valproic Acid SARS-CoV-2 (PCR) 07/20/22 07/20/22 07/20/22 12:15 17:24 23:44 WBC RBC Hgb Hct MCV MCH RDW Plt Count [place] % (Auto) Seg Neutrophils % Seg Neutrophils # PT APTT D-Dimer ABG pH ABG pO2 ABG HCO3 ABG O2 Saturation ABG Base Excess ABG Hemoglobin Oxyhemoglobin Sodium Potassium Chloride Carbon Dioxide BUN Creatinine Glucose POC Glucose 138 H 135 H 131 H Lactic Acid Uric Acid Calcium Phosphorus Magnesium Ferritin Total Bilirubin AST Lactate Dehydrogenase Total Creatine Kinase C-Reactive Protein Total Protein Albumin TSH Free T3 Index Urine WBC (Auto) Urine Creatinine Salicylates Acetaminophen Valproic Acid SARS-CoV-2 (PCR) 07/21/22 07/21/22 07/21/22 04:00 04:00 05:13 WBC RBC 2.92 L Hgb 9.6 L Hct 29.0 L MCV 99 H MCH 33 H RDW 15.6 H Plt Count 136 L [place] % (Auto) Seg Neutrophils % Seg Neutrophils # PT APTT D-Dimer ABG pH ABG pO2 ABG HCO3 ABG O2 Saturation ABG Base Excess ABG Hemoglobin Oxyhemoglobin Sodium Potassium Chloride Carbon Dioxide 32 H BUN Creatinine 0.3 L Glucose 133 H POC Glucose 142 H Lactic Acid Uric Acid Calcium 8.3 L Phosphorus Magnesium Ferritin Total Bilirubin AST Lactate Dehydrogenase Total Creatine Kinase C-Reactive Protein Total Protein Albumin TSH Free T3 Index Urine WBC (Auto) Urine Creatinine Salicylates Acetaminophen Valproic Acid SARS-CoV-2 (PCR) 07/21/22 07/21/22 07/21/22 06:16 11:48 16:08 WBC RBC Hgb Hct MCV MCH RDW Plt Count [place] % (Auto) Seg Neutrophils % Seg Neutrophils # PT APTT D-Dimer ABG pH ABG pO2 ABG HCO3 ABG O2 Saturation ABG Base Excess ABG Hemoglobin Oxyhemoglobin Sodium Potassium Chloride Carbon Dioxide BUN Creatinine Glucose POC Glucose 149 H 124 H 139 H Lactic Acid Uric Acid Calcium Phosphorus Magnesium Ferritin Total Bilirubin AST Lactate Dehydrogenase Total Creatine Kinase C-Reactive Protein Total Protein Albumin TSH Free T3 Index Urine WBC (Auto) Urine Creatinine Salicylates Acetaminophen Valproic Acid SARS-CoV-2 (PCR) 07/22/22 07/22/22 07/22/22 00:05 04:00 04:13 WBC RBC 2.90 L Hgb 9.5 L Hct 28.9 L MCV 100 H MCH 33 H RDW 15.5 H Plt Count [place] % (Auto) 10.0 H Seg Neutrophils % Seg Neutrophils # PT APTT D-Dimer ABG pH ABG pO2 ABG HCO3 ABG O2 Saturation ABG Base Excess ABG Hemoglobin Oxyhemoglobin Sodium Potassium Chloride Carbon Dioxide 31 H BUN Creatinine 0.4 L Glucose 105 H POC Glucose 143 H Lactic Acid Uric Acid Calcium Phosphorus Magnesium Ferritin Total Bilirubin AST Lactate Dehydrogenase Total Creatine Kinase C-Reactive Protein Total Protein Albumin TSH Free T3 Index Urine WBC (Auto) Urine Creatinine Salicylates Acetaminophen Valproic Acid SARS-CoV-2 (PCR) 07/22/22 07/23/22 07/23/22 11:03 04:25 04:25 WBC RBC 2.71 L Hgb 9.1 L Hct 27.0 L MCV 100 H MCH 33 H RDW 15.4 H Plt Count [place] % (Auto) Seg Neutrophils % Seg Neutrophils # PT APTT D-Dimer ABG pH ABG pO2 ABG HCO3 ABG O2 Saturation ABG Base Excess ABG Hemoglobin Oxyhemoglobin Sodium Potassium Chloride Carbon Dioxide 33 H BUN Creatinine 0.4 L Glucose POC Glucose 111 H Lactic Acid Uric Acid Calcium 8.3 L Phosphorus Magnesium Ferritin Total Bilirubin AST Lactate Dehydrogenase Total Creatine Kinase C-Reactive Protein Total Protein Albumin TSH Free T3 Index Urine WBC (Auto) Urine Creatinine Salicylates Acetaminophen Valproic Acid SARS-CoV-2 (PCR) 07/23/22 07/23/22 07/23/22 06:14 11:09 23:34 WBC RBC Hgb Hct MCV MCH RDW Plt Count [place] % (Auto) Seg Neutrophils % Seg Neutrophils # PT APTT D-Dimer ABG pH ABG pO2 ABG HCO3 ABG O2 Saturation ABG Base Excess ABG Hemoglobin Oxyhemoglobin Sodium Potassium Chloride Carbon Dioxide BUN Creatinine Glucose POC Glucose 106 H 117 H 115 H Lactic Acid Uric Acid Calcium Phosphorus Magnesium Ferritin Total Bilirubin AST Lactate Dehydrogenase Total Creatine Kinase C-Reactive Protein Total Protein Albumin TSH Free T3 Index Urine WBC (Auto) Urine Creatinine Salicylates Acetaminophen Valproic Acid SARS-CoV-2 (PCR) 07/24/22 07/24/22 07/24/22 05:24 11:25 16:52 WBC RBC Hgb Hct MCV MCH RDW Plt Count [place] % (Auto) Seg Neutrophils % Seg Neutrophils # PT APTT D-Dimer ABG pH ABG pO2 ABG HCO3 ABG O2 Saturation ABG Base Excess ABG Hemoglobin Oxyhemoglobin Sodium Potassium Chloride Carbon Dioxide BUN Creatinine Glucose POC Glucose 122 H 139 H 126 H Lactic Acid Uric Acid Calcium Phosphorus Magnesium Ferritin Total Bilirubin AST Lactate Dehydrogenase Total Creatine Kinase C-Reactive Protein Total Protein Albumin TSH Free T3 Index Urine WBC (Auto) Urine Creatinine Salicylates Acetaminophen Valproic Acid SARS-CoV-2 (PCR) 07/25/22 07/25/22 07/25/22 00:10 04:22 04:22 WBC RBC 2.86 L Hgb 9.4 L Hct 28.5 L MCV 100 H MCH 33 H RDW 15.4 H Plt Count [place] % (Auto) Seg Neutrophils % Seg Neutrophils # PT APTT D-Dimer ABG pH ABG pO2 ABG HCO3 ABG O2 Saturation ABG Base Excess ABG Hemoglobin Oxyhemoglobin Sodium Potassium Chloride Carbon Dioxide 31 H BUN Creatinine 0.3 L Glucose 135 H POC Glucose 131 H Lactic Acid Uric Acid Calcium 8.0 L Phosphorus 2.20 L Magnesium Ferritin Total Bilirubin AST Lactate Dehydrogenase Total Creatine Kinase C-Reactive Protein Total Protein Albumin TSH Free T3 Index Urine WBC (Auto) Urine Creatinine Salicylates Acetaminophen Valproic Acid SARS-CoV-2 (PCR) 07/25/22 07/25/22 07/25/22 05:17 11:49 17:27 WBC RBC Hgb Hct MCV MCH RDW Plt Count [place] % (Auto) Seg Neutrophils % Seg Neutrophils # PT APTT D-Dimer ABG pH ABG pO2 ABG HCO3 ABG O2 Saturation ABG Base Excess ABG Hemoglobin Oxyhemoglobin Sodium Potassium Chloride Carbon Dioxide BUN Creatinine Glucose POC Glucose 155 H 140 H 123 H Lactic Acid Uric Acid Calcium Phosphorus Magnesium Ferritin Total Bilirubin AST Lactate Dehydrogenase Total Creatine Kinase C-Reactive Protein Total Protein Albumin TSH Free T3 Index Urine WBC (Auto) Urine Creatinine Salicylates Acetaminophen Valproic Acid SARS-CoV-2 (PCR) 07/25/22 07/26/22 07/26/22 23:57 06:00 06:08 WBC RBC Hgb Hct MCV MCH RDW Plt Count [place] % (Auto) Seg Neutrophils % Seg Neutrophils # PT APTT D-Dimer ABG pH ABG pO2 ABG HCO3 ABG O2 Saturation ABG Base Excess ABG Hemoglobin Oxyhemoglobin Sodium Potassium 3.5 L Chloride Carbon Dioxide 32 H BUN Creatinine 0.3 L Glucose 116 H POC Glucose 124 H 134 H Lactic Acid Uric Acid Calcium 7.9 L Phosphorus Magnesium Ferritin Total Bilirubin AST Lactate Dehydrogenase Total Creatine Kinase C-Reactive Protein Total Protein Albumin TSH Free T3 Index Urine WBC (Auto) Urine Creatinine Salicylates Acetaminophen Valproic Acid SARS-CoV-2 (PCR) 07/26/22 07/26/22 07/26/22 13:38 17:22 23:22 WBC RBC Hgb Hct MCV MCH RDW Plt Count [place] % (Auto) Seg Neutrophils % Seg Neutrophils # PT APTT D-Dimer ABG pH ABG pO2 ABG HCO3 ABG O2 Saturation ABG Base Excess ABG Hemoglobin Oxyhemoglobin Sodium Potassium Chloride Carbon Dioxide BUN Creatinine Glucose POC Glucose 112 H 123 H 117 H Lactic Acid Uric Acid Calcium Phosphorus Magnesium Ferritin Total Bilirubin AST Lactate Dehydrogenase Total Creatine Kinase C-Reactive Protein Total Protein Albumin TSH Free T3 Index Urine WBC (Auto) Urine Creatinine Salicylates Acetaminophen Valproic Acid SARS-CoV-2 (PCR) 07/26/22 07/27/22 07/27/22 Unknown 05:54 10:00 WBC RBC 2.61 L Hgb 8.8 L Hct 26.2 L MCV 100 H MCH 34 H RDW 15.6 H Plt Count [place] % (Auto) Seg Neutrophils % Seg Neutrophils # PT APTT D-Dimer ABG pH ABG pO2 ABG HCO3 ABG O2 Saturation ABG Base Excess ABG Hemoglobin Oxyhemoglobin Sodium Potassium Chloride Carbon Dioxide BUN Creatinine 0.3 L Glucose 125 H POC Glucose 124 H Lactic Acid Uric Acid Calcium 8.3 L Phosphorus 1.90 L Magnesium Ferritin Total Bilirubin AST Lactate Dehydrogenase Total Creatine Kinase C-Reactive Protein Total Protein Albumin TSH Free T3 Index Urine WBC (Auto) Urine Creatinine Salicylates Acetaminophen Valproic Acid SARS-CoV-2 (PCR) 07/27/22 07/27/22 07/27/22 11:06 18:32 23:20 WBC RBC Hgb Hct MCV MCH RDW Plt Count [place] % (Auto) Seg Neutrophils % Seg Neutrophils # PT APTT D-Dimer ABG pH ABG pO2 ABG HCO3 ABG O2 Saturation ABG Base Excess ABG Hemoglobin Oxyhemoglobin Sodium Potassium Chloride Carbon Dioxide BUN Creatinine Glucose POC Glucose 133 H 119 H 110 H Lactic Acid Uric Acid Calcium Phosphorus Magnesium Ferritin Total Bilirubin AST Lactate Dehydrogenase Total Creatine Kinase C-Reactive Protein Total Protein Albumin TSH Free T3 Index Urine WBC (Auto) Urine Creatinine Salicylates Acetaminophen Valproic Acid SARS-CoV-2 (PCR) 07/28/22 07/28/22 07/29/22 05:37 11:13 04:05 WBC RBC 2.64 L Hgb 8.8 L Hct 26.6 L MCV 101 H MCH 33 H RDW 16.4 H Plt Count [place] % (Auto) Seg Neutrophils % Seg Neutrophils # PT APTT D-Dimer ABG pH ABG pO2 ABG HCO3 ABG O2 Saturation ABG Base Excess ABG Hemoglobin Oxyhemoglobin Sodium Potassium Chloride Carbon Dioxide BUN Creatinine Glucose POC Glucose 127 H 115 H Lactic Acid Uric Acid Calcium Phosphorus Magnesium Ferritin Total Bilirubin AST Lactate Dehydrogenase Total Creatine Kinase C-Reactive Protein Total Protein Albumin TSH Free T3 Index Urine WBC (Auto) Urine Creatinine Salicylates Acetaminophen Valproic Acid SARS-CoV-2 (PCR) 07/29/22 07/29/22 07/29/22 04:05 05:20 11:06 WBC RBC Hgb Hct MCV MCH RDW Plt Count [place] % (Auto) Seg Neutrophils % Seg Neutrophils # PT APTT D-Dimer ABG pH ABG pO2 ABG HCO3 ABG O2 Saturation ABG Base Excess ABG Hemoglobin Oxyhemoglobin Sodium Potassium Chloride Carbon Dioxide 33 H BUN Creatinine 0.3 L Glucose 115 H POC Glucose 119 H 125 H Lactic Acid Uric Acid Calcium 8.2 L Phosphorus Magnesium Ferritin Total Bilirubin AST Lactate Dehydrogenase Total Creatine Kinase C-Reactive Protein Total Protein Albumin TSH Free T3 Index Urine WBC (Auto) Urine Creatinine Salicylates Acetaminophen Valproic Acid SARS-CoV-2 (PCR)
--- NOTE | 2022-07-29 15:43 | Progress Note ---
<CHUY MARTINEZ - Last Filed: 07/29/22 15:47> Assessment and Plan Assessment and plan: This is a 76-year-old female with CVA, pulmonary embolism, hypothyroidism and JUJU admitted with electrolyte imbalances, hypoxic respiratory failure and COVID- 19 pneumonia Neuro: Acute metabolic encephalopathy, h/o CVA with hemiplegia, dysphagia, aphasia, dementia -Neurology consulted, appreciate recommendations -Reorientation as needed -Maintain sleep-wake cycle -Resume home Lipitor -As needed analgesia -CT head shows no acute intracranial hemorrhage, multiple chronic appearing infarcts including left MCA distribution, left cerebral hemisphere and within the right basal ganglia -Depakene -EEG compatible with significant diffuse encephalopathy -MRI shows no acute findings, remote infarction of the left frontal lobe and left cerebellum, moderate sequela of chronic microvascular disease Cardiac: h/o HLD -Resume home Lipitor -Blood pressure monitoring per protocol Respiratory: Acute hypoxic respiratory failure, h/o JUJU, pulmonary embolism -CCM consulted, appreciate recommendations -Intubated on 07/07 with a 7.50 ETT at 24 the lips -07/22 s/p Trach/PEG -A.m. vent settings: Assist-control rate 10, tidal volume 400, PEEP 6, FiO2 28% -See RT notes for titration -A.m. ABG and CXR noted -VAP bundle -SPO2 monitoring GI: NAD -24 hours +26 ml -PPI -07/22 s/p PEG -NTR consulted for tube feedings -BR: Senokot-S : Rhabdomyolysis -Nephrology consulted, appreciate recommendations -Monitor intake and output -Free water flush -Renally dose medications -Avoid nephrotoxic medications -Trend BMP ID: COVID-19 pneumonia, lactic acidosis, Klebsiella pneumonia -Infectious disease consulted, appreciate recommendation - s/p Azithromycin 07/07-07/10, Rocephin -Decadron 10mg for 10 days () -s/p Remdesivir () -CRP 0.3, procalcitonin 0.19 -Contact/droplet precautions discontinued -f/u blood culture -Trend COVID-19 inflammatory markers -Monitor WBC and temperature curve -Prophylactic anticoagulation based on D-dimer per hospital protocol Endo: h/o hypothyroidism -Avoid hypoglycemia -SSI -Accu-Cheks q. 6 -Long-acting insulin, titrate as needed -Resume home Synthroid Heme: Thrombocytopenia (improving) -Trend CBC -Transfuse hemoglobin less than 7 -SCDs to BLE while in bed The high probability of a clinically significant, sudden or life threatening deterioration of the [multi] system(s) required my full and direct attention, intervention and personal management. The aggregate critical care time was [60] minutes. This time is in addition to time spent performing reported procedures but includes the following: [x] Data Review and interpretation [x] Patient assessment and monitoring of vital signs [x] Documentation [x] Medication orders and management Disposition Plan: icu Total Time Spent with Patient (Minutes): 60 History Interval history: This is a 76-year-old female with CVA resulting hemiplegia, dysphagia, aphasia, dementia, pulm embolism without acute cor pulmonale, hypothyroidism and JUJU who presented to the hospital on 07/07 from her half-way for altered mental status and diminished cognition and possible hypoxia via EMS. In the emergency department patient was intubated due to concern for airway protection. Recommend emergency department showed leukocytosis, hyponatremia with a sodium of 168, hypercalcemia, hypomagnesemia, elevated CK. Patient was admitted to the hospitalist service with acute hypoxic respiratory failure, COVID-19 PUI, hypernatremia, transaminitis, rhabdomyolysis with consults to CCM and nephrology: Hospital course to date: 07/08: Patient noted to be COVID-positive, started on remdesivir, Decadron, ceftriaxone azithromycin and infectious disease was consulted yesterday. This morning patient is on any sedation, PICC line to be placed. RT to attempt PSV. Started on free water flushes and tube feedings. Continues on D5 half-normal saline. 07/09: Patient remains encephalopathic, not on any sedation. Hypernatremia is improving, on FWF Q4hrs and D5w gtt per Nephro. If hypernatremia continue to improve and patient's mentation is unchanged, will get a repeat CT to r/o intracranial abnormalities. Patient remains afebrile, leukocytosis improved, and VSS. Continue current IV abx per ID. Patient failed PSV trial again today, continue PSV trial as tolerated 07/10: Remains stable on the vent, tolerating PSV trial this am. sodium continue to improve but no change in mental status. D/w CCM will get MRI brain to r/o any intracranial abnormalities, EEG also ordered to r/o seizures. Continue FWF and D5w gtt per Nephro. Continue IV steroids and current IV abx per ID. 07/11: Hypernatremia resolved, mentation is unchanged, remains on low vent setting. EEG noted, and MRI brain pending. Will consult Neurology for further recommendations. Continue daily PSV trial as tolerated. 07/12: Appears more awake this morning but still not following any commands. MRI brain with no acute findings and sodium normalized. Awaiting Neuro consult. Continue daily PSV trial as tolerated. Patient's daughter was updated via phone, all questions and concerns were addressed at this time. Medical records [facility] from [facility] and [facility]. 07/13: DELMI overnight. Mentation is unchanged, remains stable on the vent. Neurol ogy consult pending. Continue vent adjustment per [facility] and daily PSV trial as tolerated. 07/14: Mentation is unchanged, remains afebrile and stable on the vent, VSS. Complete antibiotics course, still on IV steroids X3 more days. ID recommendations noted, remove corbin. Continue daily PSV trial as tolerated. 07/15: DELMI overnight, mentation unchanged, VSS. Patient failed PSV trial this am due to apnea. Continue daily PSV trial as tolerated. Possible trach and Peg per [facility]. 07/16: No acute events overnight, attempted PSV again today. [facility] to have family meeting on 07/17 to discuss trach/PEG 07/17: [facility] will have family meeting tomorrow. Failed PSV again. No acute events overnight. Thrombocytopenia continues to improve 07/18: [facility] held a family meeting today and surgery will be consulted for trach/PEG placement. Family stated that patient had not had her levothyroxine for several months due to decreased p.o. intake, will send thyroid panel. No acute events reported overnight. Hypotension today and 500 mL normal saline bolus given. Possible trach/peg within 2 days 07/19: No acute events reported overnight. Free T4 normal. Failed PSV 07/20: No acute events reported overnight. Patient taken off isolation per ID. Trach/PEG scheduled for Friday. failed PSV 07/21: No acute events reported overnight. Trach/peg for friday. PSV ongoing 07/22: Remains stable, DELMI overnight. Plan for possible Trac/PEG today by general surgery. Continue dailu PSV trial as tolerated. 07/23: s/p trach and PEG, remains stable on low vent setting, recent CXR is unremarkable. VSS. Resume TF once okayed by General Surgery. Continue daily PSV trial as tolerated. Possible LTAC placement, case management to arrange. 07/24: Remains stable on the vent, tolerating TF via Peg. Continue supportive measures and daily PSV trial. Awaiting placement. 07/25: DELMI overnight. Continue supportive measures and daily PSV trial. PT/OT consulted. Awaiting placement, case management to arrange. 07/26: DELMI overnight. Continue supportive measures and daily PSV trial. Awaiting placement, case management to arrange. 07/27: Patient failed PSV trial this am due to periods of apnea. Continue daily PSV trial as tolerated. Awaiting placement, case management to arrange. 07/28: DELMI overnight. Continue daily PSV trial as tolerated. Awaiting placement, case management to arrange. 07/29: No acute events reported overnight, failed CPAP trial. Hospitalist Physical - Constitutional Vitals: Temp Pulse Resp BP Pulse Ox 98.7 F 93 H 13 109/67 100 07/29/22 11:43 07/29/22 12:00 07/29/22 12:00 07/29/22 12:00 07/29/22 12:00 General appearance: Present: no acute distress - EENT ENT: clear oral mucosa, dentition normal - Neck Neck: Present: normal ROM - Respiratory Respiratory effort: normal Respiratory: bilateral: diminished - Cardiovascular Rhythm: regular Heart Sounds: Present: S1 & S2. Absent: systolic murmur, diastolic murmur - Extremities Extremities: no ischemia, pulses intact, pulses symmetrical, No edema, normal temperature, normal color Peripheral Pulses: within normal limits - Abdominal General gastrointestinal: soft, non-tender, normal bowel sounds - Integumentary Integumentary: Present: warm, dry - Neurologic Neurologic: other (does not follow commands) - Allied Health Allied health notes reviewed: nursing, RT, social work HEART Score - HEART Score Troponin: Troponin T 0.010 ng/mL (0.00-0.029) 07/07/22 04:17 Results - Labs CBC & Chem 7: 07/29/22 04:05 07/29/22 04:05 Labs: Laboratory Last Values WBC 7.7 K/mm3 (4.5-11.0) 07/29/22 04:05 RBC 2.64 M/mm3 (3.65-5.03) L 07/29/22 04:05 Hgb 8.8 gm/dl (10.1-14.3) L 07/29/22 04:05 Hct 26.6 % (30.3-42.9) L 07/29/22 04:05 MCV 101 fl (79-97) H 07/29/22 04:05 MCH 33 pg (28-32) H 07/29/22 04:05 MCHC 33 % (30-34) 07/29/22 04:05 RDW 16.4 % (13.2-15.2) H 07/29/22 04:05 Plt Count 251 K/mm3 (140-440) 07/29/22 04:05 Lymph % (Auto) 33.3 % (13.4-35.0) 07/22/22 04:13 [place] % (Auto) 10.0 % (0.0-7.3) H 07/22/22 04:13 Eos % (Auto) 0.5 % (0.0-4.3) 07/22/22 04:13 Baso % (Auto) 0.1 % (0.0-1.8) 07/22/22 04:13 Lymph # (Auto) 2.1 K/mm3 (1.2-5.4) 07/22/22 04:13 [place] # (Auto) 0.6 K/mm3 (0.0-0.8) 07/22/22 04:13 Eos # (Auto) 0.0 K/mm3 (0.0-0.4) 07/22/22 04:13 Baso # (Auto) 0.0 K/mm3 (0.0-0.1) 07/22/22 04:13 Seg Neutrophils % 56.1 % (40.0-70.0) 07/22/22 04:13 Seg Neutrophils # 3.6 K/mm3 (1.8-7.7) 07/22/22 04:13 PT 13.0 Sec. (12.2-14.9) 07/22/22 04:13 INR 0.87 (0.87-1.13) 07/22/22 04:13 APTT 23.0 Sec. (24.2-36.6) L 07/07/22 03:38 D-Dimer 925.80 ng/mlDDU (0-234) H 07/12/22 04:00 ABG pH 7.503 pH Units (7.350-7.450) H 07/20/22 05:30 ABG pCO2 42.7 mm Hg 07/20/22 05:30 ABG pO2 99.1 mm Hg (80.0-90.0) H 07/20/22 05:30 ABG HCO3 32.8 mmol/L (20.0-26.0) H 07/20/22 05:30 ABG O2 Saturation 97.8 % (95.0-99.0) 07/20/22 05:30 ABG O2 Content 13.3 (0.0-44) 07/20/22 05:30 ABG Base Excess 8.8 mmol/L (-2.0-3.0) H 07/20/22 05:30 ABG Hemoglobin 9.7 gm/dl (12.0-16.0) L 07/20/22 05:30 ABG Carboxyhemoglobin 1.3 % (0.0-5.0) 07/20/22 05:30 ABG Methemoglobin 0.6 % (0.0-1.5) 07/20/22 05:30 Oxyhemoglobin 95.9 % (95.0-99.0) 07/20/22 05:30 FiO2 28 % 07/20/22 05:30 Sodium 141 mmol/L (137-145) 07/29/22 04:05 Potassium 4.1 mmol/L (3.6-5.0) 07/29/22 04:05 Chloride 102.3 mmol/L (98-107) 07/29/22 04:05 Carbon Dioxide 33 mmol/L (22-30) H 07/29/22 04:05 Anion Gap 10 mmol/L 07/29/22 04:05 BUN 11 mg/dL (7-17) 07/29/22 04:05 Creatinine 0.3 mg/dL (0.6-1.2) L 07/29/22 04:05 Estimated GFR > 60 ml/min 07/29/22 04:05 BUN/Creatinine Ratio 37 % 07/29/22 04:05 Glucose 115 mg/dL (65-100) H 07/29/22 04:05 POC Glucose 125 mg/dL (70-105) H 07/29/22 11:06 Lactic Acid 2.10 mmol/L (0.7-2.0) H* 07/10/22 08:24 Uric Acid 13.5 mg/dL (3.5-7.6) H 07/07/22 04:17 Calcium 8.2 mg/dL (8.4-10.2) L 07/29/22 04:05 Phosphorus 3.00 mg/dL (2.5-4.5) 07/29/22 04:05 Magnesium 1.70 mg/dL (1.7-2.3) 07/29/22 04:05 Ferritin 519.5 ng/mL (10.0-200.0) H 07/12/22 04:00 Total Bilirubin 0.30 mg/dL (0.1-1.2) 07/10/22 04:21 AST 89 units/L (5-40) H 07/10/22 04:21 ALT 53 units/L (7-56) 07/10/22 04:21 Alkaline Phosphatase 83 units/L (35-129) 07/10/22 04:21 Ammonia 32.0 umol/L (25-60) 07/07/22 04:17 Lactate Dehydrogenase 444 units/L (91-180) H 07/12/22 04:00 Total Creatine Kinase 1745 units/L (30-135) H 07/11/22 05:40 Troponin T 0.010 ng/mL (0.00-0.029) 07/07/22 04:17 C-Reactive Protein 0.30 mg/dL (0.00-1.30) 07/12/22 04:00 Total Protein 4.9 g/dL (6.3-8.2) L 07/10/22 04:21 Albumin 2.5 g/dL (3.9-5) L 07/10/22 04:21 Albumin/Globulin Ratio 1.0 % 07/10/22 04:21 Procalcitonin 0.19 ng/mL (<0.15) 07/08/22 14:54 TSH 9.750 mlU/mL (0.270-4.200) H 07/18/22 12:31 Free T4 0.78 ng/dL (0.76-1.46) 07/18/22 12:31 Thyroxine (T4) 6.2 ug/dL (4.0-12.0) 07/18/22 12:31 Free T3 Index 1.7 pg/mL (2.3-4.2) L 07/18/22 12:31 Total Cortisol 47.9 mcg/dL () 07/07/22 07:43 Urine Color Yellow (Yellow) 07/07/22 03:17 Urine Turbidity Slightly cloudy (Clear) 07/07/22 03:17 Specific [place] (Man) 1.015 (1.003-1.030) 07/07/22 03:17 Ur Protein (Man) 1+ mg/dL (Negative) 07/07/22 03:17 Ur Ketones (Man) Negative (Negative) 07/07/22 03:17 Ur Nitrite (Man) Negative (Negative) 07/07/22 03:17 Urine Bilirubin (Man) Negative (Negative) 07/07/22 03:17 Leukocyte Esterase (Man) Negative (Negative) 07/07/22 03:17 Urine WBC (Auto) 7.0 /HPF (0.0-6.0) H 07/07/22 03:17 Urine RBC (Auto) 1.0 /HPF (0.0-6.0) 07/07/22 03:17 U Epithel Cells (Auto) 4.0 /HPF (0-13.0) 07/07/22 03:17 Urine Bacteria (Auto) 3+ /HPF (Negative) 07/07/22 03:17 Urine RBC (Manual) 3+ (Negative) 07/07/22 03:17 Urine Mucus 3+ /HPF 07/07/22 03:17 Urine Osmolality 744 Mosm/kg 07/07/22 16:45 Urine Creatinine 92.9 mg/dL (0.1-20.0) H 07/07/22 16:45 Urine Sodium 109 mmol/L 07/07/22 16:45 Salicylates < 0.3 mg/dL (2.8-20.0) L 07/07/22 03:38 Urine Opiates Screen Presumptive negative 07/07/22 03:17 Urine Methadone Screen Presumptive negative 07/07/22 03:17 Acetaminophen 5.0 ug/mL (10.0-30.0) L 07/07/22 03:38 Ur Barbiturates Screen Presumptive negative 07/07/22 03:17 Valproic Acid 7.0 ug/mL (50-100) L 07/07/22 03:38 Ur Phencyclidine Scrn Presumptive negative 07/07/22 03:17 Ur Amphetamines Screen Presumptive negative 07/07/22 03:17 U Benzodiazepines Scrn Presumptive negative 07/07/22 03:17 Urine Cocaine Screen Presumptive negative 07/07/22 03:17 U Marijuana (THC) Screen Presumptive negative 07/07/22 03:17 Drugs of Abuse Note Disclamer 07/07/22 03:17 Plasma/Serum Alcohol < 0.01 % (0-0.07) 07/07/22 03:38 SARS-CoV-2 (PCR) Positive (Negative) A 07/07/22 15:00 Corbin/IV: Voiding Method External Female Catheter Active Medications - Current Medications Current Medications: Generic Name Dose Route Start Last Admin Trade Name Freq PRN Reason Stop Dose Admin Acetaminophen 650 mg 07/13/22 12:00 07/25/22 21:28 Acetaminophen 325 Mg/10.15 Ml Oral Liqd Unit Dose FEEDTUBE 650 mg Q6H PRN Administration Pain MILD(1-3)/Fever >100.5/LEE Atorvastatin Calcium 80 mg 07/10/22 22:00 07/28/22 21:56 Atorvastatin 40 Mg Tab FEEDTUBE 80 mg QHS ERROL Administration Cholecalciferol 1,000 unit 07/10/22 10:00 07/29/22 10:13 Cholecalciferol (Vit D3) 1000 Unit (25 Mcg) Tab FEEDTUBE 1,000 unit QDAY ERROL Administration Dextrose 50 ml 07/09/22 11:42 Dextrose 50% In Water (25gm) 50 Ml Syringe IV Q30MIN PRN Hypoglycemia Protocol Famotidine 20 mg 07/09/22 22:00 07/29/22 10:13 Famotidine 20 Mg Tab FEEDTUBE 20 mg BID ERROL Administration Heparin Sodium (Porcine) 5,000 unit 07/08/22 06:00 07/29/22 05:56 Heparin 5,000 Unit/1 Ml Vial SUB-Q 5,000 unit Q12H ERROL Administration Hydrophilic Ointment 1 applic 07/07/22 02:48 Lip Therapy Vaseline TP Q2HR PRN Dry Lips Insulin Human Lispro 0 unit 07/09/22 12:00 07/29/22 12:21 Insulin Lispro 100 Unit/Ml SUB-Q Not Given Q6HR ERROL Protocol Levothyroxine Sodium 75 mcg 07/11/22 06:00 07/29/22 05:56 Levothyroxine 75 Mcg Tab FEEDTUBE 75 mcg QAM@0600 ERROL Administration Multi-Ingred Cream/Lotion/Oil/Oint 1 applic 07/07/22 02:48 Mineral Oil/Petrolatum, White Ophth Oint 3.5 Gm OU Q4HR PRN Dry Eye(s) Senna/Docusate Sodium 1 tab 07/07/22 10:00 07/29/22 10:13 Sennosides/Docusate Sodium 8.6/50 Mg Tab FEEDTUBE Not Given BID ERROL Sodium Chloride 10 ml 07/07/22 13:00 07/29/22 10:13 Sodium Chloride 0.9% 10 Ml Flush Syringe IV 10 ml BID ERROL Administration Sodium Chloride 10 ml 07/07/22 12:09 Sodium Chloride 0.9% 10 Ml Flush Syringe IV PRN PRN LINE FLUSH Valproic Acid 250 mg 07/10/22 22:00 07/29/22 10:13 Valproic Acid 250 Mg/5 Ml Oral Liqd FEEDTUBE 250 mg Q12H ERROL Administration Nutrition/Malnutrition Assess - Dietary Evaluation Nutrition/Malnutrition Findings: Nutrition Notes Start: 07/07/22 13:24 Freq: Status: Active Protocol: Document 07/24/22 09:24 DAREN (Rec: 07/24/22 09:53 DAREN [id number]) Nutrition Notes Initial or Follow up Reassessment Current Diagnosis Respiratory Failure,Stroke, Hyperlipidemia Other Pertinent Diagnosis COVID-19, Metabolic Encephalopathy, Pulmonary Embolism, Dementia. Current Diet TF-Vital AF 1.2 Jameson @ 50 ml/hr (from D 07/12). Labs/Tests 07/24: CO2 33, Crea 0.4, Ca 8. 3. Pertinent Medications 07/24: Vit D3, D5w @ 50ml/hr, Levothyroxine, others nutritionally unremarkable. Height 5 ft 6 in Weight 96.2 kg [place] Body Weight (kg) 59.09 BMI 34.2 Weight change and time frame 0.946 Kg body weight gain in 1 week reported. Weight Status Obese Subjective/Other Information RD consult for routine F/U on TF tolerance/continuation assessment. TF continues as prescribed, and well tolerated, according to RN notes. Pt continues on Mechanical Ventilation, O2 saturation @ 98%, according to Physical Assessment History notes. Procedure on 07/22: Percutaneous Tracheostomy and EGD w/PEG-tube placement, well tolerated. according to Operative Report notes. TF resumed on 07/23, after PEG -tube placement, according to Progress notes. Possible discharge to LTAC facility, according to Progress notes. Percent of energy/protein needs met: Prescribed TF-Vital AF 1.2 Jameson @ 50 ml/hr provides for energy/protein needs (1,440 Kcal/90 g) during LOS, 101% Kcal, 91% AA. Burn Absent Trauma Absent GI Symptoms Other Difficulty In Swallowing,Chewing Food Allergy No Skin Integrity/Comment Assessment WNL. Current % PO Other Minimum of two criteria Yes Energy Intake (non-severe) <75% Estimated Energy Requirement >7 days Interpretation of Weight Loss (non- 5% in 1 month severe) Fluid Accumulation N/A Protein-Calorie Malnutrition Non-Severe #2 Nutrition Diagnosis Malnutrition Comments: TF continues as prescribed, and well tolerated, according to RN notes. Diagnosis Progress(for reassessment Improved documentation) #1 Nutrition Diagnosis Inadequate oral intake Comments: Procedure on 07/22: Percutaneous Tracheostomy and EGD w/PEG-tube placement, well tolerated. according to Operative Report notes. TF resumed on 07/23, after PEG -tube placement, according to Progress notes. Diagnosis Progress(for reassessment Continues documentation) Is patient on ventilator? Yes Is Patient Ambulatory and/or Out of Bed No REE-([facility]-confined to bed) 1774.548 Kcal/Kg value to use for calculation 15 Approximate Energy Requirements Using 1443 kcal/Kg Calculation Used for Recommendations Kcal/kg Additional Notes Protein: 1.3 g/Kg AdjBW; 101 g /day. Fluids: 1 ml/Kcal, or as per MD. Nutrition Intervention Nutrition Support: Continue TF-Vital AF 1.2 [place] @ 50 ml/hr. Flush: 75 ml water Q 4 hr, or as per MD. Kcal 1,440 Protein (gm) 90 Carbohydrates (gm) 133 Fat (gm) 65 Fluid (mL) 973 Fiber (gm) 6 % RDI: 101% Kcal; 91% AA. Goal #1 Provide at least 75% of energy /protein needs through Enteral Feeding during LOS. Follow-Up By: 08/07/22 Additional Comments Continue monitoring TF tolerance, ventilation status, and BM. <BRITNEYDAVEANAHI - Last Filed: 07/29/22 19:22> Assessment and Plan Assessment and plan: I saw and evaluated the patient. I agree with the findings and the plan of care as documented in the Nurse Practitioner's~note, with the following corrections and additions. Hospitalist Physical - Constitutional Vitals: Temp Pulse Resp BP Pulse Ox 98.5 F 118 H 10 L 107/64 100 07/29/22 16:30 07/29/22 18:00 07/29/22 18:00 07/29/22 18:00 07/29/22 18:00 HEART Score - HEART Score Troponin: Troponin T 0.010 ng/mL (0.00-0.029) 07/07/22 04:17 Results - Labs CBC & Chem 7: 07/29/22 04:05 07/29/22 04:05 Labs: Laboratory Last Values WBC 7.7 K/mm3 (4.5-11.0) 07/29/22 04:05 RBC 2.64 M/mm3 (3.65-5.03) L 07/29/22 04:05 Hgb 8.8 gm/dl (10.1-14.3) L 07/29/22 04:05 Hct 26.6 % (30.3-42.9) L 07/29/22 04:05 MCV 101 fl (79-97) H 07/29/22 04:05 MCH 33 pg (28-32) H 07/29/22 04:05 MCHC 33 % (30-34) 07/29/22 04:05 RDW 16.4 % (13.2-15.2) H 07/29/22 04:05 Plt Count 251 K/mm3 (140-440) 07/29/22 04:05 Lymph % (Auto) 33.3 % (13.4-35.0) 07/22/22 04:13 [place] % (Auto) 10.0 % (0.0-7.3) H 07/22/22 04:13 Eos % (Auto) 0.5 % (0.0-4.3) 07/22/22 04:13 Baso % (Auto) 0.1 % (0.0-1.8) 07/22/22 04:13 Lymph # (Auto) 2.1 K/mm3 (1.2-5.4) 07/22/22 04:13 [place] # (Auto) 0.6 K/mm3 (0.0-0.8) 07/22/22 04:13 Eos # (Auto) 0.0 K/mm3 (0.0-0.4) 07/22/22 04:13 Baso # (Auto) 0.0 K/mm3 (0.0-0.1) 07/22/22 04:13 Seg Neutrophils % 56.1 % (40.0-70.0) 07/22/22 04:13 Seg Neutrophils # 3.6 K/mm3 (1.8-7.7) 07/22/22 04:13 PT 13.0 Sec. (12.2-14.9) 07/22/22 04:13 INR 0.87 (0.87-1.13) 07/22/22 04:13 APTT 23.0 Sec. (24.2-36.6) L 07/07/22 03:38 D-Dimer 925.80 ng/mlDDU (0-234) H 07/12/22 04:00 ABG pH 7.503 pH Units (7.350-7.450) H 07/20/22 05:30 ABG pCO2 42.7 mm Hg 07/20/22 05:30 ABG pO2 99.1 mm Hg (80.0-90.0) H 07/20/22 05:30 ABG HCO3 32.8 mmol/L (20.0-26.0) H 07/20/22 05:30 ABG O2 Saturation 97.8 % (95.0-99.0) 07/20/22 05:30 ABG O2 Content 13.3 (0.0-44) 07/20/22 05:30 ABG Base Excess 8.8 mmol/L (-2.0-3.0) H 07/20/22 05:30 ABG Hemoglobin 9.7 gm/dl (12.0-16.0) L 07/20/22 05:30 ABG Carboxyhemoglobin 1.3 % (0.0-5.0) 07/20/22 05:30 ABG Methemoglobin 0.6 % (0.0-1.5) 07/20/22 05:30 Oxyhemoglobin 95.9 % (95.0-99.0) 07/20/22 05:30 FiO2 28 % 07/20/22 05:30 Sodium 141 mmol/L (137-145) 07/29/22 04:05 Potassium 4.1 mmol/L (3.6-5.0) 07/29/22 04:05 Chloride 102.3 mmol/L (98-107) 07/29/22 04:05 Carbon Dioxide 33 mmol/L (22-30) H 07/29/22 04:05 Anion Gap 10 mmol/L 07/29/22 04:05 BUN 11 mg/dL (7-17) 07/29/22 04:05 Creatinine 0.3 mg/dL (0.6-1.2) L 07/29/22 04:05 Estimated GFR > 60 ml/min 07/29/22 04:05 BUN/Creatinine Ratio 37 % 07/29/22 04:05 Glucose 115 mg/dL (65-100) H 07/29/22 04:05 POC Glucose 111 mg/dL (70-105) H 07/29/22 16:08 Lactic Acid 2.10 mmol/L (0.7-2.0) H* 07/10/22 08:24 Uric Acid 13.5 mg/dL (3.5-7.6) H 07/07/22 04:17 Calcium 8.2 mg/dL (8.4-10.2) L 07/29/22 04:05 Phosphorus 3.00 mg/dL (2.5-4.5) 07/29/22 04:05 Magnesium 1.70 mg/dL (1.7-2.3) 07/29/22 04:05 Ferritin 519.5 ng/mL (10.0-200.0) H 07/12/22 04:00 Total Bilirubin 0.30 mg/dL (0.1-1.2) 07/10/22 04:21 AST 89 units/L (5-40) H 07/10/22 04:21 ALT 53 units/L (7-56) 07/10/22 04:21 Alkaline Phosphatase 83 units/L (35-129) 07/10/22 04:21 Ammonia 32.0 umol/L (25-60) 07/07/22 04:17 Lactate Dehydrogenase 444 units/L (91-180) H 07/12/22 04:00 Total Creatine Kinase 1745 units/L (30-135) H 07/11/22 05:40 Troponin T 0.010 ng/mL (0.00-0.029) 07/07/22 04:17 C-Reactive Protein 0.30 mg/dL (0.00-1.30) 07/12/22 04:00 Total Protein 4.9 g/dL (6.3-8.2) L 07/10/22 04:21 Albumin 2.5 g/dL (3.9-5) L 07/10/22 04:21 Albumin/Globulin Ratio 1.0 % 07/10/22 04:21 Procalcitonin 0.19 ng/mL (<0.15) 07/08/22 14:54 TSH 9.750 mlU/mL (0.270-4.200) H 07/18/22 12:31 Free T4 0.78 ng/dL (0.76-1.46) 07/18/22 12:31 Thyroxine (T4) 6.2 ug/dL (4.0-12.0) 07/18/22 12:31 Free T3 Index 1.7 pg/mL (2.3-4.2) L 07/18/22 12:31 Total Cortisol 47.9 mcg/dL () 07/07/22 07:43 Urine Color Yellow (Yellow) 07/07/22 03:17 Urine Turbidity Slightly cloudy (Clear) 07/07/22 03:17 Specific Sparks (Man) 1.015 (1.003-1.030) 07/07/22 03:17 Ur Protein (Man) 1+ mg/dL (Negative) 07/07/22 03:17 Ur Ketones (Man) Negative (Negative) 07/07/22 03:17 Ur Nitrite (Man) Negative (Negative) 07/07/22 03:17 Urine Bilirubin (Man) Negative (Negative) 07/07/22 03:17 Leukocyte Esterase (Man) Negative (Negative) 07/07/22 03:17 Urine WBC (Auto) 7.0 /HPF (0.0-6.0) H 07/07/22 03:17 Urine RBC (Auto) 1.0 /HPF (0.0-6.0) 07/07/22 03:17 U Epithel Cells (Auto) 4.0 /HPF (0-13.0) 07/07/22 03:17 Urine Bacteria (Auto) 3+ /HPF (Negative) 07/07/22 03:17 Urine RBC (Manual) 3+ (Negative) 07/07/22 03:17 Urine Mucus 3+ /HPF 07/07/22 03:17 Urine Osmolality 744 Mosm/kg 07/07/22 16:45 Urine Creatinine 92.9 mg/dL (0.1-20.0) H 07/07/22 16:45 Urine Sodium 109 mmol/L 07/07/22 16:45 Salicylates < 0.3 mg/dL (2.8-20.0) L 07/07/22 03:38 Urine Opiates Screen Presumptive negative 07/07/22 03:17 Urine Methadone Screen Presumptive negative 07/07/22 03:17 Acetaminophen 5.0 ug/mL (10.0-30.0) L 07/07/22 03:38 Ur Barbiturates Screen Presumptive negative 07/07/22 03:17 Valproic Acid 7.0 ug/mL (50-100) L 07/07/22 03:38 Ur Phencyclidine Scrn Presumptive negative 07/07/22 03:17 Ur Amphetamines Screen Presumptive negative 07/07/22 03:17 U Benzodiazepines Scrn Presumptive negative 07/07/22 03:17 Urine Cocaine Screen Presumptive negative 07/07/22 03:17 U Marijuana (THC) Screen Presumptive negative 07/07/22 03:17 Drugs of Abuse Note Disclamer 07/07/22 03:17 Plasma/Serum Alcohol < 0.01 % (0-0.07) 07/07/22 03:38 SARS-CoV-2 (PCR) Positive (Negative) A 07/07/22 15:00 [place]bin/IV: Voiding Method External Female Catheter Active Medications - Current Medications Current Medications: Generic Name Dose Route Start Last Admin Trade Name Freq PRN Reason Stop Dose Admin Acetaminophen 650 mg 07/13/22 12:00 07/25/22 21:28 Acetaminophen 325 Mg/10.15 Ml Oral Liqd Unit Dose FEEDTUBE 650 mg Q6H PRN Administration Pain MILD(1-3)/Fever >100.5/LEE Atorvastatin Calcium 80 mg 07/10/22 22:00 07/28/22 21:56 Atorvastatin 40 Mg Tab FEEDTUBE 80 mg QHS ERROL Administration Cholecalciferol 1,000 unit 07/10/22 10:00 07/29/22 10:13 Cholecalciferol (Vit D3) 1000 Unit (25 Mcg) Tab FEEDTUBE 1,000 unit QDAY ERROL Administration Dextrose 50 ml 07/09/22 11:42 Dextrose 50% In Water (25gm) 50 Ml Syringe IV Q30MIN PRN Hypoglycemia Protocol Famotidine 20 mg 07/09/22 22:00 07/29/22 10:13 Famotidine 20 Mg Tab FEEDTUBE 20 mg BID ERROL Administration Heparin Sodium (Porcine) 5,000 unit 07/08/22 06:00 07/29/22 18:20 Heparin 5,000 Unit/1 Ml Vial SUB-Q 5,000 unit Q12H ERROL Administration Hydrophilic Ointment 1 applic 07/07/22 02:48 Lip Therapy Vaseline TP Q2HR PRN Dry Lips Insulin Human Lispro 0 unit 07/09/22 12:00 07/29/22 18:20 Insulin Lispro 100 Unit/Ml SUB-Q Not Given Q6HR ERROL Protocol Levothyroxine Sodium 75 mcg 07/11/22 06:00 07/29/22 05:56 Levothyroxine 75 Mcg Tab FEEDTUBE 75 mcg QAM@0600 ERROL Administration Multi-Ingred Cream/Lotion/Oil/Oint 1 applic 07/07/22 02:48 Mineral Oil/Petrolatum, White Ophth Oint 3.5 Gm OU Q4HR PRN Dry Eye(s) Senna/Docusate Sodium 1 tab 07/07/22 10:00 07/29/22 10:13 Sennosides/Docusate Sodium 8.6/50 Mg Tab FEEDTUBE Not Given BID ERROL Sodium Chloride 10 ml 07/07/22 13:00 07/29/22 10:13 Sodium Chloride 0.9% 10 Ml Flush Syringe IV 10 ml BID ERROL Administration Sodium Chloride 10 ml 07/07/22 12:09 Sodium Chloride 0.9% 10 Ml Flush Syringe IV PRN PRN LINE FLUSH Valproic Acid 250 mg 07/10/22 22:00 07/29/22 10:13 Valproic Acid 250 Mg/5 Ml Oral Liqd FEEDTUBE 250 mg Q12H ERROL Administration Nutrition/Malnutrition Assess - Dietary Evaluation Nutrition/Malnutrition Findings: Nutrition Notes Start: 07/07/22 13:24 Freq: Status: Active Protocol: Document 07/24/22 09:24 DAREN (Rec: 07/24/22 09:53 DAREN [id number]) Nutrition Notes Initial or Follow up Reassessment Current Diagnosis Respiratory Failure,Stroke, Hyperlipidemia Other Pertinent Diagnosis COVID-19, Metabolic Encephalopathy, Pulmonary Embolism, Dementia. Current Diet TF-Vital AF 1.2 Jameson @ 50 ml/hr (from D 07/12). Labs/Tests 07/24: CO2 33, Crea 0.4, Ca 8. 3. Pertinent Medications 07/24: Vit D3, D5w @ 50ml/hr, Levothyroxine, others nutritionally unremarkable. Height 5 ft 6 in Weight 96.2 kg [place] Body Weight (kg) 59.09 BMI 34.2 Weight change and time frame 0.946 Kg body weight gain in 1 week reported. Weight Status Obese Subjective/Other Information RD consult for routine F/U on TF tolerance/continuation assessment. TF continues as prescribed, and well tolerated, according to RN notes. Pt continues on Mechanical Ventilation, O2 saturation @ 98%, according to Physical Assessment History notes. Procedure on 07/22: Percutaneous Tracheostomy and EGD w/PEG-tube placement, well tolerated. according to Operative Report notes. TF resumed on 07/23, after PEG -tube placement, according to Progress notes. Possible discharge to LTAC facility, according to Progress notes. Percent of energy/protein needs met: Prescribed TF-Vital AF 1.2 Jameson @ 50 ml/hr provides for energy/protein needs (1,440 Kcal/90 g) during LOS, 101% Kcal, 91% AA. Burn Absent Trauma Absent GI Symptoms Other Difficulty In Swallowing,Chewing Food Allergy No Skin Integrity/Comment Assessment WNL. Current % PO Other Minimum of two criteria Yes Energy Intake (non-severe) <75% Estimated Energy Requirement >7 days Interpretation of Weight Loss (non- 5% in 1 month severe) Fluid Accumulation N/A Protein-Calorie Malnutrition Non-Severe #2 Nutrition Diagnosis Malnutrition Comments: TF continues as prescribed, and well tolerated, according to RN notes. Diagnosis Progress(for reassessment Improved documentation) #1 Nutrition Diagnosis Inadequate oral intake Comments: Procedure on 07/22: Percutaneous Tracheostomy and EGD w/PEG-tube placement, well tolerated. according to Operative Report notes. TF resumed on 07/23, after PEG -tube placement, according to Progress notes. Diagnosis Progress(for reassessment Continues documentation) Is patient on ventilator? Yes Is Patient Ambulatory and/or Out of Bed No REE-([facility]-confined to bed) 1774.548 Kcal/Kg value to use for calculation 15 Approximate Energy Requirements Using 1443 kcal/Kg Calculation Used for Recommendations Kcal/kg Additional Notes Protein: 1.3 g/Kg AdjBW; 101 g /day. Fluids: 1 ml/Kcal, or as per MD. Nutrition Intervention Nutrition Support: Continue TF-Vital AF 1.2 Jameson @ 50 ml/hr. Flush: 75 ml water Q 4 hr, or as per MD. Kcal 1,440 Protein (gm) 90 Carbohydrates (gm) 133 Fat (gm) 65 Fluid (mL) 973 Fiber (gm) 6 % RDI: 101% Kcal; 91% AA. Goal #1 Provide at least 75% of energy /protein needs through Enteral Feeding during LOS. Follow-Up By: 08/07/22 Additional Comments Continue monitoring TF tolerance, ventilation status, and BM.
[2022-07-30] MEDS: INSULIN LISPRO 100 UNIT/ML SUB-Q SCH ×4 (00:50→17:12)
[2022-07-30] MEDS: HEPARIN 5,000 UNIT/1 ML VIAL SUB-Q SCH (05:40)
[2022-07-30] MEDS: LEVOTHYROXINE 75 MCG TAB FEEDTUBE SCH (05:40)
[2022-07-30] MEDS: FAMOTIDINE 20 MG TAB FEEDTUBE SCH ×2 (09:31→21:15)
[2022-07-30] MEDS: SENNOSIDES/DOCUSATE SODIUM 8.6/50 MG TAB FEEDTUBE SCH ×2 (09:31→21:15)
[2022-07-30] MEDS: VALPROIC ACID 250 MG/5 ML ORAL LIQD FEEDTUBE SCH ×2 (09:31→21:14)
[2022-07-30] MEDS: CHOLECALCIFEROL (VIT D3) 1000 UNIT (25 mcg) TAB FEEDTUBE SCH (09:31)
--- NOTE | 2022-07-30 11:04 | Progress Note ---
Assessment and Plan 76 y/o female with acute respiratory failure secondary to altered mental status, most likely from electrolyte abnormalities seen on chemistry, found to be COVID positive. 07/30/22: Continue daily PSV trials. 07/29/22: Daily PSV trials. Hold laxatives and stimulants for now. No changes were made in any other meds. Monitor white count and abdominal exam. 07/26/22: Daily PSV trials. Continue tube feeds. Awaiting placement. 07/25/22: Daily PSV trials. Tube feeds going and tolerating. Need to consider at least PT consult to help with movement of lower ext. 07/24/22: Continue tube feeds. Continue daily PSV trials. Await placement, weanable but will need time. 07/23/22: Tube feeds back on. No PSV trials today but will do again tomorrow. Awaiting placement. 07/22/22: Trach and Peg hopefully today. 07/21/22: Did 6 hours of PSV yesterday. Trach and peg tomorrow. Check labs to make sure lytes are stable. 07/20/22: Trach/Peg Friday. Supportive care. 07/19/22: Appreciate Surgery. on Schedule for next week. Free T4 was normal. No current indication for stress dose steroids. Continue supportive care. 07/18/22: Family meeting: Discussed current mental state. Discussed negative work up so far to explain why mental state hasnt improved. Per family here, patient was better than what she is not but I had difficult time placing a time frame as to when that was, maybe May. It does appear that she has had a steady decline mentally and even stopped eating. There were talks prior to her admission here about Peg tube placement. Discussed the idea of trach and peg placement. Also explained to family that trach does not fix any underlying reason as to why the patient's mental state is the way it is. The family wasn't aware that she was brought in for altered mental status, they were told she had bradycardia. Nonetheless, the family as a whole wish to pursue trach and peg placement. Consulted Surgery and hopeful they will see soon. Continue supportive measures and continue daily PSV trials. TSH on admit was 13, will repeat but if T4 is normal, nothing to do. She also is not behaving like myxedema coma. Guarded prognosis. 07/17/22: steroids end today. Continue daily PSV trials. Will speak with family about next steps as today is day 10 of intubation and it does not appear that co nventional extubation is in the near future. 07/16/22: Continue daily PSV trials. Will speak with family tomorrow as patient is not improving enough for conventional extubation, especially with frequent apnic events. Most likely patient will need trach and peg. 07/15/22: mental status is still unchanged. Eyes open but not tracking or following commands. Also going apnic on PSV trials. Most likely will need trach and peg given mental status has not improved. 07/12/22: Negative MRI for acute infarct. Na is normal. Continue to monitor. Daily PSV trials. Has been intubated now for 5 days. 07/11/22: for MRI today. Appreciate renal help, agree with signing off. Attempt daily PSV. Guarded prognosis. 07/10: follow up MRI. Get official EEG read but no status. Continue daily PSV trials. Guarded prognosis 07/09/22: Continue supportive measures. Continue to fix Na, if no improvement in mental state with normal sodium then will pursue MRI. Picc placed today. 07/08/22: No further sedation. 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 Consider neurology consult and may need to obtain MRI. Attempt PSV trials today. 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 Feed patient and monitor lytes. 1. Discontinue sedation 2. Wean FiO2 for sats >88% and PaO2 greater than 60 3. Agree with fluid resuscitation, patient needs free water 4. Will follow up with family to find out exactly what patient mental status was a facility CCT 31 minutes. Subjective Date of service: 07/30/22 Principal diagnosis: Hypernatremia Interval history: no acute events. Objective Vital Signs - 12hr 07/30/22 07/30/22 07/30/22 00:00 00:15 01:01 Temperature 98.6 F Pulse Rate 100 H 101 H 101 H Respiratory 15 3 L 12 Rate Blood Pressure 122/73 114/68 68/50 O2 Sat by Pulse 100 100 100 Oximetry O2 Sat by Pulse 100 Oximetry [ Assessment] 07/30/22 07/30/22 07/30/22 02:01 03:00 04:00 Temperature 99.2 F Pulse Rate 112 H 102 H 103 H Respiratory 14 12 12 Rate Blood Pressure 116/73 86/49 103/62 O2 Sat by Pulse 100 100 100 Oximetry O2 Sat by Pulse Oximetry [ Assessment] 07/30/22 07/30/22 07/30/22 04:10 05:00 06:00 Temperature Pulse Rate 92 H 96 H 100 H Respiratory 2 L 10 L 12 Rate Blood Pressure 152/76 86/55 99/59 O2 Sat by Pulse 100 100 100 Oximetry O2 Sat by Pulse Oximetry [ Assessment] 07/30/22 07/30/22 07/30/22 07:01 07:12 08:00 Temperature 99.1 F Pulse Rate 98 H 83 Respiratory 14 14 Rate Blood Pressure 95/66 106/65 O2 Sat by Pulse 100 Oximetry O2 Sat by Pulse Oximetry [ Assessment] 07/30/22 07/30/22 07/30/22 08:39 08:47 09:00 Temperature Pulse Rate 92 H 92 H Respiratory 10 L Rate Blood Pressure 98/64 97/62 O2 Sat by Pulse 100 100 Oximetry O2 Sat by Pulse 100 Oximetry [ Assessment] Constitutional: comatose ENT: other (orally intubated) Neck: supple Effort: normal Ascultation: Bilateral: clear Percussion: Bilateral: not dull Cardiovascular: regular rate and rhythm Gastrointestinal: normoactive bowel sounds, soft Extremities: no cyanosis, no edema Neurologic: unable to assess CBC and BMP: 07/31/22 04:45 07/31/22 04:45 ABG, PT/INR, D-dimer: ABG ABG pH 7.503 pH Units (7.350-7.450) H 07/20/22 05:30 ABG pCO2 42.7 mm Hg 07/20/22 05:30 ABG pO2 99.1 mm Hg (80.0-90.0) H 07/20/22 05:30 ABG O2 Saturation 97.8 % (95.0-99.0) 07/20/22 05:30 PT/INR, D-dimer PT 13.0 Sec. (12.2-14.9) 07/22/22 04:13 INR 0.87 (0.87-1.13) 07/22/22 04:13 D-Dimer 925.80 ng/mlDDU (0-234) H 07/12/22 04:00 Abnormal lab findings: Abnormal Labs 07/07/22 07/07/22 07/07/22 03:17 03:38 03:38 WBC RBC 5.43 H Hgb 18.2 H Hct 54.9 H MCV 101 H MCH 34 H RDW Plt Count 104 L [place] % (Auto) Seg Neutrophils % Seg Neutrophils # PT 15.0 H APTT 23.0 L D-Dimer ABG pH ABG pO2 ABG HCO3 ABG O2 Saturation ABG Base Excess ABG Hemoglobin Oxyhemoglobin Sodium Potassium Chloride Carbon Dioxide BUN Creatinine Glucose POC Glucose Lactic Acid Uric Acid Calcium Phosphorus Magnesium Ferritin Total Bilirubin AST Lactate Dehydrogenase Total Creatine Kinase C-Reactive Protein Total Protein Albumin TSH Free T3 Index Urine WBC (Auto) 7.0 H Urine Creatinine Salicylates Acetaminophen Valproic Acid SARS-CoV-2 (PCR) 07/07/22 07/07/22 07/07/22 03:38 03:38 03:38 WBC RBC Hgb Hct MCV MCH RDW Plt Count [place] % (Auto) Seg Neutrophils % Seg Neutrophils # PT APTT D-Dimer ABG pH ABG pO2 ABG HCO3 ABG O2 Saturation ABG Base Excess ABG Hemoglobin Oxyhemoglobin Sodium Potassium Chloride Carbon Dioxide BUN Creatinine Glucose POC Glucose Lactic Acid Uric Acid Calcium Phosphorus Magnesium 3.30 H Ferritin Total Bilirubin AST Lactate Dehydrogenase Total Creatine Kinase 1826 H C-Reactive Protein Total Protein Albumin TSH Free T3 Index Urine WBC (Auto) Urine Creatinine Salicylates < 0.3 L Acetaminophen 5.0 L Valproic Acid 7.0 L SARS-CoV-2 (PCR) 07/07/22 07/07/22 07/07/22 04:17 04:17 04:17 WBC RBC Hgb Hct MCV MCH RDW Plt Count [place] % (Auto) Seg Neutrophils % Seg Neutrophils # PT APTT D-Dimer ABG pH ABG pO2 ABG HCO3 ABG O2 Saturation ABG Base Excess ABG Hemoglobin Oxyhemoglobin Sodium 168 H* Potassium 3.2 L Chloride 122.2 H Carbon Dioxide BUN 52 H Creatinine Glucose 158 H POC Glucose Lactic Acid 3.50 H* Uric Acid Calcium 10.9 H Phosphorus Magnesium Ferritin Total Bilirubin 1.40 H AST 47 H Lactate Dehydrogenase Total Creatine Kinase C-Reactive Protein Total Protein Albumin TSH 12.790 H Free T3 Index Urine WBC (Auto) Urine Creatinine Salicylates Acetaminophen Valproic Acid SARS-CoV-2 (PCR) 07/07/22 07/07/22 07/07/22 04:17 07:43 09:35 WBC RBC Hgb Hct MCV MCH RDW Plt Count [place] % (Auto) Seg Neutrophils % Seg Neutrophils # PT APTT D-Dimer ABG pH ABG pO2 377.3 H ABG HCO3 ABG O2 Saturation 99.6 H ABG Base Excess -2.5 L ABG Hemoglobin Oxyhemoglobin Sodium Potassium Chloride Carbon Dioxide BUN Creatinine Glucose POC Glucose Lactic Acid 6.30 H* Uric Acid 13.5 H Calcium Phosphorus Magnesium Ferritin Total Bilirubin AST Lactate Dehydrogenase Total Creatine Kinase C-Reactive Protein Total Protein Albumin TSH Free T3 Index Urine WBC (Auto) Urine Creatinine Salicylates Acetaminophen Valproic Acid SARS-CoV-2 (PCR) 07/07/22 07/07/22 07/07/22 15:00 16:00 16:00 WBC RBC Hgb Hct MCV MCH RDW Plt Count [place] % (Auto) Seg Neutrophils % Seg Neutrophils # PT APTT D-Dimer ABG pH ABG pO2 ABG HCO3 ABG O2 Saturation ABG Base Excess ABG Hemoglobin Oxyhemoglobin Sodium 166 H* Potassium Chloride 124.8 H Carbon Dioxide 20 L BUN 41 H Creatinine Glucose 157 H POC Glucose Lactic Acid 7.00 H* Uric Acid Calcium Phosphorus Magnesium Ferritin Total Bilirubin AST 81 H Lactate Dehydrogenase Total Creatine Kinase C-Reactive Protein Total Protein Albumin TSH Free T3 Index Urine WBC (Auto) Urine Creatinine Salicylates Acetaminophen Valproic Acid SARS-CoV-2 (PCR) Positive A 07/07/22 07/07/22 07/07/22 16:45 23:42 23:42 WBC RBC Hgb Hct MCV MCH RDW Plt Count [place] % (Auto) Seg Neutrophils % Seg Neutrophils # PT APTT D-Dimer ABG pH ABG pO2 ABG HCO3 ABG O2 Saturation ABG Base Excess ABG Hemoglobin Oxyhemoglobin Sodium 165 H* Potassium 3.0 L Chloride 122.8 H Carbon Dioxide BUN 38 H Creatinine Glucose 232 H POC Glucose Lactic Acid 5.60 H* Uric Acid Calcium Phosphorus Magnesium Ferritin Total Bilirubin AST Lactate Dehydrogenase Total Creatine Kinase C-Reactive Protein Total Protein Albumin TSH Free T3 Index Urine WBC (Auto) Urine Creatinine 92.9 H Salicylates Acetaminophen Valproic Acid SARS-CoV-2 (PCR) 07/07/22 07/07/22 07/08/22 Unknown Unknown 05:30 WBC RBC Hgb Hct MCV MCH RDW Plt Count [place] % (Auto) Seg Neutrophils % Seg Neutrophils # PT APTT D-Dimer ABG pH 7.553 H 7.473 H ABG pO2 61.7 L 121.7 H ABG HCO3 ABG O2 Saturation 94.7 L ABG Base Excess 4.3 H ABG Hemoglobin 18.0 H Oxyhemoglobin 93.1 L Sodium 163 H* Potassium 6.3 H* D Chloride 123.7 H Carbon Dioxide BUN 42 H Creatinine Glucose 169 H POC Glucose Lactic Acid Uric Acid Calcium Phosphorus Magnesium Ferritin Total Bilirubin AST Lactate Dehydrogenase Total Creatine Kinase C-Reactive Protein Total Protein Albumin TSH Free T3 Index Urine WBC (Auto) Urine Creatinine Salicylates Acetaminophen Valproic Acid SARS-CoV-2 (PCR) 07/08/22 07/08/22 07/08/22 05:36 11:21 14:54 WBC 11.1 H RBC Hgb Hct MCV 101 H MCH 33 H RDW Plt Count 69 L [place] % (Auto) Seg Neutrophils % 82.0 H Seg Neutrophils # 9.1 H PT APTT D-Dimer ABG pH ABG pO2 ABG HCO3 ABG O2 Saturation ABG Base Excess ABG Hemoglobin Oxyhemoglobin Sodium Potassium Chloride Carbon Dioxide BUN Creatinine Glucose POC Glucose 174 H 148 H Lactic Acid Uric Acid Calcium Phosphorus Magnesium Ferritin Total Bilirubin AST Lactate Dehydrogenase Total Creatine Kinase C-Reactive Protein Total Protein Albumin TSH Free T3 Index Urine WBC (Auto) Urine Creatinine Salicylates Acetaminophen Valproic Acid SARS-CoV-2 (PCR) 07/08/22 07/08/22 07/08/22 14:54 14:54 14:54 WBC RBC Hgb Hct MCV MCH RDW Plt Count [place] % (Auto) Seg Neutrophils % Seg Neutrophils # PT APTT D-Dimer ABG pH ABG pO2 ABG HCO3 ABG O2 Saturation ABG Base Excess ABG Hemoglobin Oxyhemoglobin Sodium 163 H* Potassium 2.9 L* Chloride 123.7 H Carbon Dioxide BUN 30 H Creatinine Glucose 161 H POC Glucose Lactic Acid 6.10 H* Uric Acid Calcium Phosphorus Magnesium Ferritin Total Bilirubin AST 69 H Lactate Dehydrogenase Total Creatine Kinase 2335 H C-Reactive Protein Total Protein 5.6 L D Albumin 3.1 L TSH Free T3 Index Urine WBC (Auto) Urine Creatinine Salicylates Acetaminophen Valproic Acid SARS-CoV-2 (PCR) 07/08/22 07/08/22 07/08/22 14:54 14:54 14:54 WBC RBC Hgb Hct MCV MCH RDW Plt Count [place] % (Auto) Seg Neutrophils % Seg Neutrophils # PT APTT D-Dimer 499.72 H ABG pH ABG pO2 ABG HCO3 ABG O2 Saturation ABG Base Excess ABG Hemoglobin Oxyhemoglobin Sodium Potassium Chloride Carbon Dioxide BUN Creatinine Glucose POC Glucose Lactic Acid Uric Acid Calcium Phosphorus Magnesium Ferritin 722.1 H Total Bilirubin AST Lactate Dehydrogenase 455 H Total Creatine Kinase C-Reactive Protein 1.60 H Total Protein Albumin TSH Free T3 Index Urine WBC (Auto) Urine Creatinine Salicylates Acetaminophen Valproic Acid SARS-CoV-2 (PCR) 07/08/22 07/08/22 07/09/22 19:13 19:53 00:09 WBC RBC Hgb Hct MCV MCH RDW Plt Count [place] % (Auto) Seg Neutrophils % Seg Neutrophils # PT APTT D-Dimer ABG pH ABG pO2 ABG HCO3 ABG O2 Saturation ABG Base Excess ABG Hemoglobin Oxyhemoglobin Sodium 160 H Potassium 3.5 L D Chloride 122.0 H Carbon Dioxide 20 L BUN 28 H Creatinine Glucose 151 H POC Glucose 138 H Lactic Acid 5.70 H* Uric Acid Calcium Phosphorus Magnesium Ferritin Total Bilirubin AST Lactate Dehydrogenase Total Creatine Kinase C-Reactive Protein Total Protein Albumin TSH Free T3 Index Urine WBC (Auto) Urine Creatinine Salicylates Acetaminophen Valproic Acid SARS-CoV-2 (PCR) 07/09/22 07/09/22 07/09/22 00:45 03:21 03:21 WBC RBC Hgb Hct MCV MCH RDW Plt Count [place] % (Auto) Seg Neutrophils % Seg Neutrophils # PT APTT D-Dimer ABG pH ABG pO2 ABG HCO3 ABG O2 Saturation ABG Base Excess ABG Hemoglobin Oxyhemoglobin Sodium 158 H 157 H Potassium Chloride 124.2 H 125.0 H Carbon Dioxide 20 L 20 L BUN 25 H 24 H Creatinine Glucose 147 H 169 H POC Glucose Lactic Acid 4.70 H* Uric Acid Calcium Phosphorus Magnesium Ferritin Total Bilirubin AST 81 H Lactate Dehydrogenase Total Creatine Kinase C-Reactive Protein Total Protein 5.7 L Albumin 2.8 L TSH Free T3 Index Urine WBC (Auto) Urine Creatinine Salicylates Acetaminophen Valproic Acid SARS-CoV-2 (PCR) 07/09/22 07/09/22 07/09/22 04:40 05:35 08:14 WBC RBC Hgb Hct MCV 102 H MCH 33 H RDW Plt Count 74 L [place] % (Auto) Seg Neutrophils % Seg Neutrophils # PT APTT D-Dimer ABG pH ABG pO2 172.1 H ABG HCO3 ABG O2 Saturation 99.1 H ABG Base Excess -2.8 L ABG Hemoglobin Oxyhemoglobin Sodium Potassium Chloride Carbon Dioxide BUN Creatinine Glucose POC Glucose 108 H Lactic Acid Uric Acid Calcium Phosphorus Magnesium Ferritin Total Bilirubin AST Lactate Dehydrogenase Total Creatine Kinase C-Reactive Protein Total Protein Albumin TSH Free T3 Index Urine WBC (Auto) Urine Creatinine Salicylates Acetaminophen Valproic Acid SARS-CoV-2 (PCR) 07/09/22 07/09/22 07/09/22 11:16 11:27 16:20 WBC RBC Hgb Hct MCV MCH RDW Plt Count [place] % (Auto) Seg Neutrophils % Seg Neutrophils # PT APTT D-Dimer ABG pH ABG pO2 ABG HCO3 ABG O2 Saturation ABG Base Excess ABG Hemoglobin Oxyhemoglobin Sodium 155 H Potassium Chloride 121.3 H Carbon Dioxide BUN 21 H Creatinine Glucose 170 H POC Glucose 173 H 190 H Lactic Acid Uric Acid Calcium Phosphorus Magnesium Ferritin Total Bilirubin AST Lactate Dehydrogenase Total Creatine Kinase C-Reactive Protein Total Protein Albumin TSH Free T3 Index Urine WBC (Auto) Urine Creatinine Salicylates Acetaminophen Valproic Acid SARS-CoV-2 (PCR) 07/09/22 07/10/22 07/10/22 17:16 00:04 04:21 WBC RBC Hgb Hct MCV MCH RDW Plt Count [place] % (Auto) Seg Neutrophils % Seg Neutrophils # PT APTT D-Dimer ABG pH ABG pO2 ABG HCO3 ABG O2 Saturation ABG Base Excess ABG Hemoglobin Oxyhemoglobin Sodium 149 H 150 H Potassium Chloride 115.6 H 115.0 H Carbon Dioxide BUN 18 H Creatinine 0.5 L Glucose 207 H 178 H POC Glucose 180 H Lactic Acid Uric Acid Calcium 7.9 L Phosphorus Magnesium Ferritin Total Bilirubin AST 89 H Lactate Dehydrogenase 431 H Total Creatine Kinase C-Reactive Protein Total Protein 4.9 L Albumin 2.5 L TSH Free T3 Index Urine WBC (Auto) Urine Creatinine Salicylates Acetaminophen Valproic Acid SARS-CoV-2 (PCR) 07/10/22 07/10/22 07/10/22 04:21 04:21 04:21 WBC 11.8 H RBC 3.52 L Hgb Hct MCV 99 H MCH 33 H RDW Plt Count 67 L [place] % (Auto) Seg Neutrophils % Seg Neutrophils # PT APTT D-Dimer 585.71 H ABG pH ABG pO2 ABG HCO3 ABG O2 Saturation ABG Base Excess ABG Hemoglobin Oxyhemoglobin Sodium Potassium Chloride Carbon Dioxide BUN Creatinine Glucose POC Glucose Lactic Acid Uric Acid Calcium Phosphorus Magnesium Ferritin 631.3 H Total Bilirubin AST Lactate Dehydrogenase Total Creatine Kinase C-Reactive Protein Total Protein Albumin TSH Free T3 Index Urine WBC (Auto) Urine Creatinine Salicylates Acetaminophen Valproic Acid SARS-CoV-2 (PCR) 07/10/22 07/10/22 07/10/22 04:21 04:55 05:26 WBC RBC Hgb Hct MCV MCH RDW Plt Count [place] % (Auto) Seg Neutrophils % Seg Neutrophils # PT APTT D-Dimer ABG pH ABG pO2 76.8 L ABG HCO3 ABG O2 Saturation ABG Base Excess ABG Hemoglobin 10.4 L Oxyhemoglobin 94.5 L Sodium Potassium Chloride Carbon Dioxide BUN Creatinine Glucose POC Glucose 147 H Lactic Acid 2.50 H* Uric Acid Calcium Phosphorus Magnesium Ferritin Total Bilirubin AST Lactate Dehydrogenase Total Creatine Kinase C-Reactive Protein Total Protein Albumin TSH Free T3 Index Urine WBC (Auto) Urine Creatinine Salicylates Acetaminophen Valproic Acid SARS-CoV-2 (PCR) 07/10/22 07/10/22 07/10/22 08:24 11:31 12:53 WBC RBC Hgb Hct MCV MCH RDW Plt Count [place] % (Auto) Seg Neutrophils % Seg Neutrophils # PT APTT D-Dimer ABG pH ABG pO2 ABG HCO3 ABG O2 Saturation ABG Base Excess ABG Hemoglobin Oxyhemoglobin Sodium Potassium Chloride 110.9 H Carbon Dioxide BUN Creatinine 0.5 L Glucose 200 H POC Glucose 166 H Lactic Acid 2.10 H* Uric Acid Calcium 8.3 L Phosphorus Magnesium Ferritin Total Bilirubin AST Lactate Dehydrogenase Total Creatine Kinase C-Reactive Protein Total Protein Albumin TSH Free T3 Index Urine WBC (Auto) Urine Creatinine Salicylates Acetaminophen Valproic Acid SARS-CoV-2 (PCR) 07/10/22 07/10/22 07/10/22 17:37 18:53 23:30 WBC RBC Hgb Hct MCV MCH RDW Plt Count [place] % (Auto) Seg Neutrophils % Seg Neutrophils # PT APTT D-Dimer ABG pH ABG pO2 ABG HCO3 ABG O2 Saturation ABG Base Excess ABG Hemoglobin Oxyhemoglobin Sodium Potassium Chloride 109.5 H 110.2 H Carbon Dioxide BUN Creatinine 0.5 L 0.5 L Glucose 243 H 208 H POC Glucose 237 H Lactic Acid Uric Acid Calcium 8.1 L 8.1 L Phosphorus Magnesium Ferritin Total Bilirubin AST Lactate Dehydrogenase Total Creatine Kinase C-Reactive Protein Total Protein Albumin TSH Free T3 Index Urine WBC (Auto) Urine Creatinine Salicylates Acetaminophen Valproic Acid SARS-CoV-2 (PCR) 07/10/22 07/11/22 07/11/22 23:57 04:00 04:15 WBC 11.2 H RBC Hgb Hct MCV 99 H MCH RDW Plt Count 73 L [place] % (Auto) Seg Neutrophils % Seg Neutrophils # PT APTT D-Dimer ABG pH ABG pO2 107.4 H ABG HCO3 ABG O2 Saturation ABG Base Excess ABG Hemoglobin Oxyhemoglobin Sodium Potassium Chloride Carbon Dioxide BUN Creatinine Glucose POC Glucose 195 H Lactic Acid Uric Acid Calcium Phosphorus Magnesium Ferritin Total Bilirubin AST Lactate Dehydrogenase Total Creatine Kinase C-Reactive Protein Total Protein Albumin TSH Free T3 Index Urine WBC (Auto) Urine Creatinine Salicylates Acetaminophen Valproic Acid SARS-CoV-2 (PCR) 07/11/22 07/11/22 07/11/22 05:40 05:40 06:06 WBC RBC Hgb Hct MCV MCH RDW Plt Count [place] % (Auto) Seg Neutrophils % Seg Neutrophils # PT APTT D-Dimer ABG pH ABG pO2 ABG HCO3 ABG O2 Saturation ABG Base Excess ABG Hemoglobin Oxyhemoglobin Sodium Potassium Chloride 109.8 H Carbon Dioxide BUN Creatinine 0.5 L Glucose 160 H POC Glucose 145 H Lactic Acid Uric Acid Calcium 8.3 L Phosphorus Magnesium Ferritin Total Bilirubin AST Lactate Dehydrogenase Total Creatine Kinase 1745 H C-Reactive Protein Total Protein Albumin TSH Free T3 Index Urine WBC (Auto) Urine Creatinine Salicylates Acetaminophen Valproic Acid SARS-CoV-2 (PCR) 07/11/22 07/11/22 07/11/22 11:55 11:59 17:44 WBC RBC Hgb Hct MCV MCH RDW Plt Count [place] % (Auto) Seg Neutrophils % Seg Neutrophils # PT APTT D-Dimer ABG pH ABG pO2 ABG HCO3 ABG O2 Saturation ABG Base Excess ABG Hemoglobin Oxyhemoglobin Sodium Potassium Chloride 107.8 H Carbon Dioxide BUN Creatinine 0.5 L Glucose 150 H POC Glucose 150 H 182 H Lactic Acid Uric Acid Calcium 8.2 L Phosphorus Magnesium Ferritin Total Bilirubin AST Lactate Dehydrogenase Total Creatine Kinase C-Reactive Protein Total Protein Albumin TSH Free T3 Index Urine WBC (Auto) Urine Creatinine Salicylates Acetaminophen Valproic Acid SARS-CoV-2 (PCR) 07/11/22 07/12/22 07/12/22 17:50 00:10 00:12 WBC RBC Hgb Hct MCV MCH RDW Plt Count [place] % (Auto) Seg Neutrophils % Seg Neutrophils # PT APTT D-Dimer ABG pH ABG pO2 ABG HCO3 ABG O2 Saturation ABG Base Excess ABG Hemoglobin Oxyhemoglobin Sodium Potassium Chloride 108.4 H Carbon Dioxide BUN Creatinine 0.5 L 0.4 L Glucose 191 H 163 H POC Glucose 154 H Lactic Acid Uric Acid Calcium 8.2 L 7.9 L Phosphorus Magnesium Ferritin Total Bilirubin AST Lactate Dehydrogenase Total Creatine Kinase C-Reactive Protein Total Protein Albumin TSH Free T3 Index Urine WBC (Auto) Urine Creatinine Salicylates Acetaminophen Valproic Acid SARS-CoV-2 (PCR) 07/12/22 07/12/22 07/12/22 04:00 04:00 04:00 WBC RBC Hgb Hct MCV MCH RDW Plt Count [place] % (Auto) Seg Neutrophils % Seg Neutrophils # PT APTT D-Dimer 925.80 H ABG pH ABG pO2 ABG HCO3 ABG O2 Saturation ABG Base Excess ABG Hemoglobin Oxyhemoglobin Sodium Potassium Chloride Carbon Dioxide BUN Creatinine Glucose POC Glucose Lactic Acid Uric Acid Calcium Phosphorus Magnesium Ferritin 519.5 H Total Bilirubin AST Lactate Dehydrogenase 444 H Total Creatine Kinase C-Reactive Protein Total Protein Albumin TSH Free T3 Index Urine WBC (Auto) Urine Creatinine Salicylates Acetaminophen Valproic Acid SARS-CoV-2 (PCR) 07/12/22 07/12/22 07/12/22 04:00 05:00 05:03 WBC 11.7 H RBC 3.33 L Hgb Hct MCV 99 H MCH 33 H RDW Plt Count 68 L [place] % (Auto) Seg Neutrophils % Seg Neutrophils # PT APTT D-Dimer ABG pH 7.453 H ABG pO2 107.9 H ABG HCO3 27.9 H ABG O2 Saturation ABG Base Excess 3.7 H ABG Hemoglobin 10.9 L Oxyhemoglobin Sodium Potassium Chloride Carbon Dioxide BUN Creatinine Glucose POC Glucose 174 H Lactic Acid Uric Acid Calcium Phosphorus Magnesium Ferritin Total Bilirubin AST Lactate Dehydrogenase Total Creatine Kinase C-Reactive Protein Total Protein Albumin TSH Free T3 Index Urine WBC (Auto) Urine Creatinine Salicylates Acetaminophen Valproic Acid SARS-CoV-2 (PCR) 09/02/22 09/02/22 09/02/22 12:15 17:18 23:14 WBC RBC Hgb Hct MCV MCH RDW Plt Count [place] % (Auto) Seg Neutrophils % Seg Neutrophils # PT APTT D-Dimer ABG pH ABG pO2 ABG HCO3 ABG O2 Saturation ABG Base Excess ABG Hemoglobin Oxyhemoglobin Sodium Potassium Chloride Carbon Dioxide BUN Creatinine Glucose POC Glucose 154 H 154 H 167 H Lactic Acid Uric Acid Calcium Phosphorus Magnesium Ferritin Total Bilirubin AST Lactate Dehydrogenase Total Creatine Kinase C-Reactive Protein Total Protein Albumin TSH Free T3 Index Urine WBC (Auto) Urine Creatinine Salicylates Acetaminophen Valproic Acid SARS-CoV-2 (PCR) 07/13/22 07/13/22 07/13/22 04:00 04:10 05:14 WBC RBC 3.17 L Hgb Hct MCV 98 H MCH 34 H RDW Plt Count 75 L [place] % (Auto) Seg Neutrophils % Seg Neutrophils # PT APTT D-Dimer ABG pH ABG pO2 ABG HCO3 ABG O2 Saturation ABG Base Excess ABG Hemoglobin Oxyhemoglobin Sodium Potassium Chloride Carbon Dioxide BUN Creatinine 0.4 L Glucose 136 H POC Glucose 140 H Lactic Acid Uric Acid Calcium Phosphorus Magnesium Ferritin Total Bilirubin AST Lactate Dehydrogenase Total Creatine Kinase C-Reactive Protein Total Protein Albumin TSH Free T3 Index Urine WBC (Auto) Urine Creatinine Salicylates Acetaminophen Valproic Acid SARS-CoV-2 (PCR) 07/13/22 07/13/22 07/13/22 12:03 14:25 17:19 WBC RBC Hgb Hct MCV MCH RDW Plt Count [place] % (Auto) Seg Neutrophils % Seg Neutrophils # PT APTT D-Dimer ABG pH 7.478 H ABG pO2 118.1 H ABG HCO3 28.2 H ABG O2 Saturation ABG Base Excess 4.5 H ABG Hemoglobin Oxyhemoglobin Sodium Potassium Chloride Carbon Dioxide BUN Creatinine Glucose POC Glucose 193 H 189 H Lactic Acid Uric Acid Calcium Phosphorus Magnesium Ferritin Total Bilirubin AST Lactate Dehydrogenase Total Creatine Kinase C-Reactive Protein Total Protein Albumin TSH Free T3 Index Urine WBC (Auto) Urine Creatinine Salicylates Acetaminophen Valproic Acid SARS-CoV-2 (PCR) 07/13/22 07/13/22 07/14/22 23:52 Unknown 06:18 WBC RBC Hgb Hct MCV MCH RDW Plt Count [place] % (Auto) Seg Neutrophils % Seg Neutrophils # PT APTT D-Dimer ABG pH 7.465 H ABG pO2 128.8 H ABG HCO3 29.0 H ABG O2 Saturation ABG Base Excess 4.9 H ABG Hemoglobin 10.3 L Oxyhemoglobin Sodium Potassium Chloride Carbon Dioxide BUN Creatinine Glucose POC Glucose 174 H 167 H Lactic Acid Uric Acid Calcium Phosphorus Magnesium Ferritin Total Bilirubin AST Lactate Dehydrogenase Total Creatine Kinase C-Reactive Protein Total Protein Albumin TSH Free T3 Index Urine WBC (Auto) Urine Creatinine Salicylates Acetaminophen Valproic Acid SARS-CoV-2 (PCR) 07/14/22 07/14/22 07/15/22 11:34 17:20 00:25 WBC RBC Hgb Hct MCV MCH RDW Plt Count [place] % (Auto) Seg Neutrophils % Seg Neutrophils # PT APTT D-Dimer ABG pH ABG pO2 ABG HCO3 ABG O2 Saturation ABG Base Excess ABG Hemoglobin Oxyhemoglobin Sodium Potassium Chloride Carbon Dioxide BUN Creatinine Glucose POC Glucose 187 H 221 H 172 H Lactic Acid Uric Acid Calcium Phosphorus Magnesium Ferritin Total Bilirubin AST Lactate Dehydrogenase Total Creatine Kinase C-Reactive Protein Total Protein Albumin TSH Free T3 Index Urine WBC (Auto) Urine Creatinine Salicylates Acetaminophen Valproic Acid SARS-CoV-2 (PCR) 07/15/22 07/15/22 07/15/22 04:00 04:00 05:49 WBC 11.4 H RBC 3.13 L Hgb Hct MCV 98 H MCH 33 H RDW Plt Count 98 L [place] % (Auto) Seg Neutrophils % Seg Neutrophils # PT APTT D-Dimer ABG pH ABG pO2 ABG HCO3 ABG O2 Saturation ABG Base Excess ABG Hemoglobin Oxyhemoglobin Sodium Potassium Chloride Carbon Dioxide 34 H BUN Creatinine 0.4 L Glucose 126 H POC Glucose 143 H Lactic Acid Uric Acid Calcium Phosphorus Magnesium Ferritin Total Bilirubin AST Lactate Dehydrogenase Total Creatine Kinase C-Reactive Protein Total Protein Albumin TSH Free T3 Index Urine WBC (Auto) Urine Creatinine Salicylates Acetaminophen Valproic Acid SARS-CoV-2 (PCR) 07/15/22 07/15/22 07/16/22 11:19 16:16 00:19 WBC RBC Hgb Hct MCV MCH RDW Plt Count [place] % (Auto) Seg Neutrophils % Seg Neutrophils # PT APTT D-Dimer ABG pH ABG pO2 ABG HCO3 ABG O2 Saturation ABG Base Excess ABG Hemoglobin Oxyhemoglobin Sodium Potassium Chloride Carbon Dioxide BUN Creatinine Glucose POC Glucose 158 H 227 H 153 H Lactic Acid Uric Acid Calcium Phosphorus Magnesium Ferritin Total Bilirubin AST Lactate Dehydrogenase Total Creatine Kinase C-Reactive Protein Total Protein Albumin TSH Free T3 Index Urine WBC (Auto) Urine Creatinine Salicylates Acetaminophen Valproic Acid SARS-CoV-2 (PCR) 07/16/22 07/16/22 07/16/22 04:20 04:20 11:28 WBC RBC 3.16 L Hgb Hct MCV 99 H MCH 33 H RDW Plt Count 101 L [place] % (Auto) Seg Neutrophils % Seg Neutrophils # PT APTT D-Dimer ABG pH ABG pO2 ABG HCO3 ABG O2 Saturation ABG Base Excess ABG Hemoglobin Oxyhemoglobin Sodium Potassium Chloride Carbon Dioxide 36 H BUN 18 H Creatinine 0.4 L Glucose 139 H POC Glucose 158 H Lactic Acid Uric Acid Calcium Phosphorus Magnesium Ferritin Total Bilirubin AST Lactate Dehydrogenase Total Creatine Kinase C-Reactive Protein Total Protein Albumin TSH Free T3 Index Urine WBC (Auto) Urine Creatinine Salicylates Acetaminophen Valproic Acid SARS-CoV-2 (PCR) 07/16/22 07/17/22 07/17/22 16:30 00:07 05:46 WBC RBC Hgb Hct MCV MCH RDW Plt Count [place] % (Auto) Seg Neutrophils % Seg Neutrophils # PT APTT D-Dimer ABG pH ABG pO2 ABG HCO3 ABG O2 Saturation ABG Base Excess ABG Hemoglobin Oxyhemoglobin Sodium Potassium Chloride Carbon Dioxide BUN Creatinine Glucose POC Glucose 201 H 139 H 123 H Lactic Acid Uric Acid Calcium Phosphorus Magnesium Ferritin Total Bilirubin AST Lactate Dehydrogenase Total Creatine Kinase C-Reactive Protein Total Protein Albumin TSH Free T3 Index Urine WBC (Auto) Urine Creatinine Salicylates Acetaminophen Valproic Acid SARS-CoV-2 (PCR) 07/17/22 07/17/22 07/17/22 13:30 17:51 23:49 WBC RBC Hgb Hct MCV MCH RDW Plt Count [place] % (Auto) Seg Neutrophils % Seg Neutrophils # PT APTT D-Dimer ABG pH ABG pO2 ABG HCO3 ABG O2 Saturation ABG Base Excess ABG Hemoglobin Oxyhemoglobin Sodium Potassium Chloride Carbon Dioxide BUN Creatinine Glucose POC Glucose 185 H 219 H 133 H Lactic Acid Uric Acid Calcium Phosphorus Magnesium Ferritin Total Bilirubin AST Lactate Dehydrogenase Total Creatine Kinase C-Reactive Protein Total Protein Albumin TSH Free T3 Index Urine WBC (Auto) Urine Creatinine Salicylates Acetaminophen Valproic Acid SARS-CoV-2 (PCR) 07/18/22 07/18/22 07/18/22 04:00 04:00 04:00 WBC 12.2 H RBC 3.34 L Hgb Hct MCV 100 H MCH 33 H RDW Plt Count 113 L [place] % (Auto) Seg Neutrophils % 77.3 H Seg Neutrophils # 9.4 H PT APTT D-Dimer ABG pH 7.508 H ABG pO2 115.9 H ABG HCO3 33.4 H ABG O2 Saturation ABG Base Excess 9.4 H ABG Hemoglobin 11.7 L Oxyhemoglobin Sodium Potassium Chloride Carbon Dioxide 35 H BUN Creatinine 0.4 L Glucose 130 H POC Glucose Lactic Acid Uric Acid Calcium Phosphorus Magnesium Ferritin Total Bilirubin AST Lactate Dehydrogenase Total Creatine Kinase C-Reactive Protein Total Protein Albumin TSH Free T3 Index Urine WBC (Auto) Urine Creatinine Salicylates Acetaminophen Valproic Acid SARS-CoV-2 (PCR) 07/18/22 07/18/22 07/18/22 04:42 12:31 12:31 WBC RBC Hgb Hct MCV MCH RDW Plt Count [place] % (Auto) Seg Neutrophils % Seg Neutrophils # PT APTT D-Dimer ABG pH ABG pO2 ABG HCO3 ABG O2 Saturation ABG Base Excess ABG Hemoglobin Oxyhemoglobin Sodium Potassium Chloride Carbon Dioxide BUN Creatinine Glucose POC Glucose 134 H Lactic Acid Uric Acid Calcium Phosphorus Magnesium Ferritin Total Bilirubin AST Lactate Dehydrogenase Total Creatine Kinase C-Reactive Protein Total Protein Albumin TSH 9.750 H Free T3 Index 1.7 L Urine WBC (Auto) Urine Creatinine Salicylates Acetaminophen Valproic Acid SARS-CoV-2 (PCR) 07/18/22 07/18/22 07/19/22 12:33 17:39 00:43 WBC RBC Hgb Hct MCV MCH RDW Plt Count [place] % (Auto) Seg Neutrophils % Seg Neutrophils # PT APTT D-Dimer ABG pH ABG pO2 ABG HCO3 ABG O2 Saturation ABG Base Excess ABG Hemoglobin Oxyhemoglobin Sodium Potassium Chloride Carbon Dioxide BUN Creatinine Glucose POC Glucose 172 H 164 H 132 H Lactic Acid Uric Acid Calcium Phosphorus Magnesium Ferritin Total Bilirubin AST Lactate Dehydrogenase Total Creatine Kinase C-Reactive Protein Total Protein Albumin TSH Free T3 Index Urine WBC (Auto) Urine Creatinine Salicylates Acetaminophen Valproic Acid SARS-CoV-2 (PCR) 07/19/22 07/19/22 07/19/22 05:08 12:30 17:42 WBC RBC Hgb Hct MCV MCH RDW Plt Count [place] % (Auto) Seg Neutrophils % Seg Neutrophils # PT APTT D-Dimer ABG pH ABG pO2 ABG HCO3 ABG O2 Saturation ABG Base Excess ABG Hemoglobin Oxyhemoglobin Sodium Potassium Chloride Carbon Dioxide BUN Creatinine Glucose POC Glucose 143 H 159 H 139 H Lactic Acid Uric Acid Calcium Phosphorus Magnesium Ferritin Total Bilirubin AST Lactate Dehydrogenase Total Creatine Kinase C-Reactive Protein Total Protein Albumin TSH Free T3 Index Urine WBC (Auto) Urine Creatinine Salicylates Acetaminophen Valproic Acid SARS-CoV-2 (PCR) 07/19/22 07/20/22 07/20/22 23:26 05:30 06:03 WBC RBC Hgb Hct MCV MCH RDW Plt Count [place] % (Auto) Seg Neutrophils % Seg Neutrophils # PT APTT D-Dimer ABG pH 7.503 H ABG pO2 99.1 H ABG HCO3 32.8 H ABG O2 Saturation ABG Base Excess 8.8 H ABG Hemoglobin 9.7 L Oxyhemoglobin Sodium Potassium Chloride Carbon Dioxide BUN Creatinine Glucose POC Glucose 144 H 146 H Lactic Acid Uric Acid Calcium Phosphorus Magnesium Ferritin Total Bilirubin AST Lactate Dehydrogenase Total Creatine Kinase C-Reactive Protein Total Protein Albumin TSH Free T3 Index Urine WBC (Auto) Urine Creatinine Salicylates Acetaminophen Valproic Acid SARS-CoV-2 (PCR) 07/20/22 07/20/22 07/20/22 12:15 17:24 23:44 WBC RBC Hgb Hct MCV MCH RDW Plt Count [place] % (Auto) Seg Neutrophils % Seg Neutrophils # PT APTT D-Dimer ABG pH ABG pO2 ABG HCO3 ABG O2 Saturation ABG Base Excess ABG Hemoglobin Oxyhemoglobin Sodium Potassium Chloride Carbon Dioxide BUN Creatinine Glucose POC Glucose 138 H 135 H 131 H Lactic Acid Uric Acid Calcium Phosphorus Magnesium Ferritin Total Bilirubin AST Lactate Dehydrogenase Total Creatine Kinase C-Reactive Protein Total Protein Albumin TSH Free T3 Index Urine WBC (Auto) Urine Creatinine Salicylates Acetaminophen Valproic Acid SARS-CoV-2 (PCR) 07/21/22 07/21/22 07/21/22 04:00 04:00 05:13 WBC RBC 2.92 L Hgb 9.6 L Hct 29.0 L MCV 99 H MCH 33 H RDW 15.6 H Plt Count 136 L [place] % (Auto) Seg Neutrophils % Seg Neutrophils # PT APTT D-Dimer ABG pH ABG pO2 ABG HCO3 ABG O2 Saturation ABG Base Excess ABG Hemoglobin Oxyhemoglobin Sodium Potassium Chloride Carbon Dioxide 32 H BUN Creatinine 0.3 L Glucose 133 H POC Glucose 142 H Lactic Acid Uric Acid Calcium 8.3 L Phosphorus Magnesium Ferritin Total Bilirubin AST Lactate Dehydrogenase Total Creatine Kinase C-Reactive Protein Total Protein Albumin TSH Free T3 Index Urine WBC (Auto) Urine Creatinine Salicylates Acetaminophen Valproic Acid SARS-CoV-2 (PCR) 07/21/22 07/21/22 07/21/22 06:16 11:48 16:08 WBC RBC Hgb Hct MCV MCH RDW Plt Count [place] % (Auto) Seg Neutrophils % Seg Neutrophils # PT APTT D-Dimer ABG pH ABG pO2 ABG HCO3 ABG O2 Saturation ABG Base Excess ABG Hemoglobin Oxyhemoglobin Sodium Potassium Chloride Carbon Dioxide BUN Creatinine Glucose POC Glucose 149 H 124 H 139 H Lactic Acid Uric Acid Calcium Phosphorus Magnesium Ferritin Total Bilirubin AST Lactate Dehydrogenase Total Creatine Kinase C-Reactive Protein Total Protein Albumin TSH Free T3 Index Urine WBC (Auto) Urine Creatinine Salicylates Acetaminophen Valproic Acid SARS-CoV-2 (PCR) 07/22/22 07/22/22 07/22/22 00:05 04:00 04:13 WBC RBC 2.90 L Hgb 9.5 L Hct 28.9 L MCV 100 H MCH 33 H RDW 15.5 H Plt Count [place] % (Auto) 10.0 H Seg Neutrophils % Seg Neutrophils # PT APTT D-Dimer ABG pH ABG pO2 ABG HCO3 ABG O2 Saturation ABG Base Excess ABG Hemoglobin Oxyhemoglobin Sodium Potassium Chloride Carbon Dioxide 31 H BUN Creatinine 0.4 L Glucose 105 H POC Glucose 143 H Lactic Acid Uric Acid Calcium Phosphorus Magnesium Ferritin Total Bilirubin AST Lactate Dehydrogenase Total Creatine Kinase C-Reactive Protein Total Protein Albumin TSH Free T3 Index Urine WBC (Auto) Urine Creatinine Salicylates Acetaminophen Valproic Acid SARS-CoV-2 (PCR) 07/22/22 07/23/22 07/23/22 11:03 04:25 04:25 WBC RBC 2.71 L Hgb 9.1 L Hct 27.0 L MCV 100 H MCH 33 H RDW 15.4 H Plt Count [place] % (Auto) Seg Neutrophils % Seg Neutrophils # PT APTT D-Dimer ABG pH ABG pO2 ABG HCO3 ABG O2 Saturation ABG Base Excess ABG Hemoglobin Oxyhemoglobin Sodium Potassium Chloride Carbon Dioxide 33 H BUN Creatinine 0.4 L Glucose POC Glucose 111 H Lactic Acid Uric Acid Calcium 8.3 L Phosphorus Magnesium Ferritin Total Bilirubin AST Lactate Dehydrogenase Total Creatine Kinase C-Reactive Protein Total Protein Albumin TSH Free T3 Index Urine WBC (Auto) Urine Creatinine Salicylates Acetaminophen Valproic Acid SARS-CoV-2 (PCR) 07/23/22 07/23/22 07/23/22 06:14 11:09 23:34 WBC RBC Hgb Hct MCV MCH RDW Plt Count [place] % (Auto) Seg Neutrophils % Seg Neutrophils # PT APTT D-Dimer ABG pH ABG pO2 ABG HCO3 ABG O2 Saturation ABG Base Excess ABG Hemoglobin Oxyhemoglobin Sodium Potassium Chloride Carbon Dioxide BUN Creatinine Glucose POC Glucose 106 H 117 H 115 H Lactic Acid Uric Acid Calcium Phosphorus Magnesium Ferritin Total Bilirubin AST Lactate Dehydrogenase Total Creatine Kinase C-Reactive Protein Total Protein Albumin TSH Free T3 Index Urine WBC (Auto) Urine Creatinine Salicylates Acetaminophen Valproic Acid SARS-CoV-2 (PCR) 07/24/22 07/24/22 07/24/22 05:24 11:25 16:52 WBC RBC Hgb Hct MCV MCH RDW Plt Count [place] % (Auto) Seg Neutrophils % Seg Neutrophils # PT APTT D-Dimer ABG pH ABG pO2 ABG HCO3 ABG O2 Saturation ABG Base Excess ABG Hemoglobin Oxyhemoglobin Sodium Potassium Chloride Carbon Dioxide BUN Creatinine Glucose POC Glucose 122 H 139 H 126 H Lactic Acid Uric Acid Calcium Phosphorus Magnesium Ferritin Total Bilirubin AST Lactate Dehydrogenase Total Creatine Kinase C-Reactive Protein Total Protein Albumin TSH Free T3 Index Urine WBC (Auto) Urine Creatinine Salicylates Acetaminophen Valproic Acid SARS-CoV-2 (PCR) 07/25/22 07/25/22 07/25/22 00:10 04:22 04:22 WBC RBC 2.86 L Hgb 9.4 L Hct 28.5 L MCV 100 H MCH 33 H RDW 15.4 H Plt Count [place] % (Auto) Seg Neutrophils % Seg Neutrophils # PT APTT D-Dimer ABG pH ABG pO2 ABG HCO3 ABG O2 Saturation ABG Base Excess ABG Hemoglobin Oxyhemoglobin Sodium Potassium Chloride Carbon Dioxide 31 H BUN Creatinine 0.3 L Glucose 135 H POC Glucose 131 H Lactic Acid Uric Acid Calcium 8.0 L Phosphorus 2.20 L Magnesium Ferritin Total Bilirubin AST Lactate Dehydrogenase Total Creatine Kinase C-Reactive Protein Total Protein Albumin TSH Free T3 Index Urine WBC (Auto) Urine Creatinine Salicylates Acetaminophen Valproic Acid SARS-CoV-2 (PCR) 07/25/22 07/25/22 07/25/22 05:17 11:49 17:27 WBC RBC Hgb Hct MCV MCH RDW Plt Count [place] % (Auto) Seg Neutrophils % Seg Neutrophils # PT APTT D-Dimer ABG pH ABG pO2 ABG HCO3 ABG O2 Saturation ABG Base Excess ABG Hemoglobin Oxyhemoglobin Sodium Potassium Chloride Carbon Dioxide BUN Creatinine Glucose POC Glucose 155 H 140 H 123 H Lactic Acid Uric Acid Calcium Phosphorus Magnesium Ferritin Total Bilirubin AST Lactate Dehydrogenase Total Creatine Kinase C-Reactive Protein Total Protein Albumin TSH Free T3 Index Urine WBC (Auto) Urine Creatinine Salicylates Acetaminophen Valproic Acid SARS-CoV-2 (PCR) 07/25/22 07/26/22 07/26/22 23:57 06:00 06:08 WBC RBC Hgb Hct MCV MCH RDW Plt Count [place] % (Auto) Seg Neutrophils % Seg Neutrophils # PT APTT D-Dimer ABG pH ABG pO2 ABG HCO3 ABG O2 Saturation ABG Base Excess ABG Hemoglobin Oxyhemoglobin Sodium Potassium 3.5 L Chloride Carbon Dioxide 32 H BUN Creatinine 0.3 L Glucose 116 H POC Glucose 124 H 134 H Lactic Acid Uric Acid Calcium 7.9 L Phosphorus Magnesium Ferritin Total Bilirubin AST Lactate Dehydrogenase Total Creatine Kinase C-Reactive Protein Total Protein Albumin TSH Free T3 Index Urine WBC (Auto) Urine Creatinine Salicylates Acetaminophen Valproic Acid SARS-CoV-2 (PCR) 07/26/22 07/26/22 07/26/22 13:38 17:22 23:22 WBC RBC Hgb Hct MCV MCH RDW Plt Count [place] % (Auto) Seg Neutrophils % Seg Neutrophils # PT APTT D-Dimer ABG pH ABG pO2 ABG HCO3 ABG O2 Saturation ABG Base Excess ABG Hemoglobin Oxyhemoglobin Sodium Potassium Chloride Carbon Dioxide BUN Creatinine Glucose POC Glucose 112 H 123 H 117 H Lactic Acid Uric Acid Calcium Phosphorus Magnesium Ferritin Total Bilirubin AST Lactate Dehydrogenase Total Creatine Kinase C-Reactive Protein Total Protein Albumin TSH Free T3 Index Urine WBC (Auto) Urine Creatinine Salicylates Acetaminophen Valproic Acid SARS-CoV-2 (PCR) 07/26/22 07/27/22 07/27/22 Unknown 05:54 10:00 WBC RBC 2.61 L Hgb 8.8 L Hct 26.2 L MCV 100 H MCH 34 H RDW 15.6 H Plt Count [place] % (Auto) Seg Neutrophils % Seg Neutrophils # PT APTT D-Dimer ABG pH ABG pO2 ABG HCO3 ABG O2 Saturation ABG Base Excess ABG Hemoglobin Oxyhemoglobin Sodium Potassium Chloride Carbon Dioxide BUN Creatinine 0.3 L Glucose 125 H POC Glucose 124 H Lactic Acid Uric Acid Calcium 8.3 L Phosphorus 1.90 L Magnesium Ferritin Total Bilirubin AST Lactate Dehydrogenase Total Creatine Kinase C-Reactive Protein Total Protein Albumin TSH Free T3 Index Urine WBC (Auto) Urine Creatinine Salicylates Acetaminophen Valproic Acid SARS-CoV-2 (PCR) 07/27/22 07/27/22 07/27/22 11:06 18:32 23:20 WBC RBC Hgb Hct MCV MCH RDW Plt Count [place] % (Auto) Seg Neutrophils % Seg Neutrophils # PT APTT D-Dimer ABG pH ABG pO2 ABG HCO3 ABG O2 Saturation ABG Base Excess ABG Hemoglobin Oxyhemoglobin Sodium Potassium Chloride Carbon Dioxide BUN Creatinine Glucose POC Glucose 133 H 119 H 110 H Lactic Acid Uric Acid Calcium Phosphorus Magnesium Ferritin Total Bilirubin AST Lactate Dehydrogenase Total Creatine Kinase C-Reactive Protein Total Protein Albumin TSH Free T3 Index Urine WBC (Auto) Urine Creatinine Salicylates Acetaminophen Valproic Acid SARS-CoV-2 (PCR) 07/28/22 07/28/22 07/29/22 05:37 11:13 04:05 WBC RBC 2.64 L Hgb 8.8 L Hct 26.6 L MCV 101 H MCH 33 H RDW 16.4 H Plt Count [place] % (Auto) Seg Neutrophils % Seg Neutrophils # PT APTT D-Dimer ABG pH ABG pO2 ABG HCO3 ABG O2 Saturation ABG Base Excess ABG Hemoglobin Oxyhemoglobin Sodium Potassium Chloride Carbon Dioxide BUN Creatinine Glucose POC Glucose 127 H 115 H Lactic Acid Uric Acid Calcium Phosphorus Magnesium Ferritin Total Bilirubin AST Lactate Dehydrogenase Total Creatine Kinase C-Reactive Protein Total Protein Albumin TSH Free T3 Index Urine WBC (Auto) Urine Creatinine Salicylates Acetaminophen Valproic Acid SARS-CoV-2 (PCR) 07/29/22 07/29/22 07/29/22 04:05 05:20 11:06 WBC RBC Hgb Hct MCV MCH RDW Plt Count [place] % (Auto) Seg Neutrophils % Seg Neutrophils # PT APTT D-Dimer ABG pH ABG pO2 ABG HCO3 ABG O2 Saturation ABG Base Excess ABG Hemoglobin Oxyhemoglobin Sodium Potassium Chloride Carbon Dioxide 33 H BUN Creatinine 0.3 L Glucose 115 H POC Glucose 119 H 125 H Lactic Acid Uric Acid Calcium 8.2 L Phosphorus Magnesium Ferritin Total Bilirubin AST Lactate Dehydrogenase Total Creatine Kinase C-Reactive Protein Total Protein Albumin TSH Free T3 Index Urine WBC (Auto) Urine Creatinine Salicylates Acetaminophen Valproic Acid SARS-CoV-2 (PCR) 07/29/22 07/29/22 07/30/22 16:08 23:41 06:03 WBC RBC Hgb Hct MCV MCH RDW Plt Count [place] % (Auto) Seg Neutrophils % Seg Neutrophils # PT APTT D-Dimer ABG pH ABG pO2 ABG HCO3 ABG O2 Saturation ABG Base Excess ABG Hemoglobin Oxyhemoglobin Sodium Potassium Chloride Carbon Dioxide BUN Creatinine Glucose POC Glucose 111 H 120 H 110 H Lactic Acid Uric Acid Calcium Phosphorus Magnesium Ferritin Total Bilirubin AST Lactate Dehydrogenase Total Creatine Kinase C-Reactive Protein Total Protein Albumin TSH Free T3 Index Urine WBC (Auto) Urine Creatinine Salicylates Acetaminophen Valproic Acid SARS-CoV-2 (PCR)
[2022-07-30 14:47] LABS: Hematocrit 25.7 % (30.3-42.9); Hemoglobin 8.5 gm/dl (10.1-14.3); Mean Corpuscular HGB Conc 33 % (30-34); Mean Corpuscular Volume 101 fl (79-97); Platelet Count 267 K/mm3 (140-440); Red Blood Count 2.55 M/mm3 (3.65-5.03); Red Cell Distribution Width 16.5 % (13.2-15.2)
[2022-07-30 15:01] LABS: INR 0.89 (0.87-1.13)
[2022-07-30 15:02] LABS: Partial Thromboplastin Time 32.6 Sec. (24.2-36.6)
--- NOTE | 2022-07-30 15:07 | Progress Note ---
Assessment and Plan Assessment and plan: This is a 76-year-old female with CVA, pulmonary embolism, hypothyroidism and JUJU admitted with electrolyte imbalances, hypoxic respiratory failure and COVID- 19 pneumonia Neuro: Acute metabolic encephalopathy, h/o CVA with hemiplegia, dysphagia, aphasia, dementia -Neurology consulted, appreciate recommendations -Reorientation as needed -Maintain sleep-wake cycle -Resume home Lipitor -As needed analgesia -CT head shows no acute intracranial hemorrhage, multiple chronic appearing infarcts including left MCA distribution, left cerebral hemisphere and within the right basal ganglia -Depakene -EEG compatible with significant diffuse encephalopathy -MRI shows no acute findings, remote infarction of the left frontal lobe and left cerebellum, moderate sequela of chronic microvascular disease Cardiac: h/o HLD -Resume home Lipitor -Blood pressure monitoring per protocol Respiratory: Acute hypoxic respiratory failure, h/o JUJU, pulmonary embolism -CCM consulted, appreciate recommendations -Intubated on 07/07 with a 7.50 ETT at 24 the lips -/ s/p Trach/PEG -A.m. vent settings: Assist-control rate 10, tidal volume 400, PEEP 6, FiO2 28% -See RT notes for titration -A.m. ABG and CXR noted -VAP bundle -SPO2 monitoring -Eliquis restarted GI: NAD -24 hours +250 ml -PPI -07/22 s/p PEG -NTR consulted for tube feedings -BR: Senokot-S : Rhabdomyolysis -Nephrology consulted, appreciate recommendations -Monitor intake and output -Free water flush -Renally dose medications -Avoid nephrotoxic medications -Trend BMP ID: COVID-19 pneumonia, lactic acidosis, Klebsiella pneumonia -Infectious disease consulted, appreciate recommendation - s/p Azithromycin 07/07-07/10, Rocephin -Decadron 10mg for 10 days () -s/p Remdesivir () -CRP 0.3, procalcitonin 0.19 -Contact/droplet precautions discontinued -f/u blood culture -Trend COVID-19 inflammatory markers -Monitor WBC and temperature curve -Prophylactic anticoagulation based on D-dimer per hospital protocol Endo: h/o hypothyroidism -Avoid hypoglycemia -SSI -Accu-Cheks q. 6 -Long-acting insulin, titrate as needed -Resume home Synthroid Heme: Thrombocytopenia (improving) -Trend CBC -Transfuse hemoglobin less than 7 -SCDs to BLE while in bed The high probability of a clinically significant, sudden or life threatening deterioration of the [multi] system(s) required my full and direct attention, intervention and personal management. The aggregate critical care time was [60] minutes. This time is in addition to time spent performing reported procedures but includes the following: [x] Data Review and interpretation [x] Patient assessment and monitoring of vital signs [x] Documentation [x] Medication orders and management Disposition Plan: icu Total Time Spent with Patient (Minutes): 60 History Interval history: This is a 76-year-old female with CVA resulting hemiplegia, dysphagia, aphasia, dementia, pulm embolism without acute cor pulmonale, hypothyroidism and JUJU who presented to the hospital on 07/07 from her residential for altered mental status and diminished cognition and possible hypoxia via EMS. In the emergency department patient was intubated due to concern for airway protection. Recommend emergency department showed leukocytosis, hyponatremia with a sodium of 168, hypercalcemia, hypomagnesemia, elevated CK. Patient was admitted to the hospitalist service with acute hypoxic respiratory failure, COVID-19 PUI, hypernatremia, transaminitis, rhabdomyolysis with consults to CCM and nephrolog y: Hospital course to date: 07/08: Patient noted to be COVID-positive, started on remdesivir, Decadron, ceftriaxone azithromycin and infectious disease was consulted yesterday. This morning patient is on any sedation, PICC line to be placed. RT to attempt PSV. Started on free water flushes and tube feedings. Continues on D5 half-normal saline. 07/09: Patient remains encephalopathic, not on any sedation. Hypernatremia is improving, on FWF Q4hrs and D5w gtt per Nephro. If hypernatremia continue to improve and patient's mentation is unchanged, will get a repeat CT to r/o intracranial abnormalities. Patient remains afebrile, leukocytosis improved, and VSS. Continue current IV abx per ID. Patient failed PSV trial again today, continue PSV trial as tolerated 07/10: Remains stable on the vent, tolerating PSV trial this am. sodium continue to improve but no change in mental status. D/w CCM will get MRI brain to r/o any intracranial abnormalities, EEG also ordered to r/o seizures. Continue FWF and D5w gtt per Nephro. Continue IV steroids and current IV abx per ID. 07/11: Hypernatremia resolved, mentation is unchanged, remains on low vent setting. EEG noted, and MRI brain pending. Will consult Neurology for further recommendations. Continue daily PSV trial as tolerated. 07/12: Appears more awake this morning but still not following any commands. MRI brain with no acute findings and sodium normalized. Awaiting Neuro consult. Continue daily PSV trial as tolerated. Patient's daughter was updated via phone, all questions and concerns were addressed at this time. Medical records requested from [facility] and [facility]. 07/13: DELMI overnight. Mentation is unchanged, remains stable on the vent. Neurology consult pending. Continue vent adjustment per [facility] and daily PSV trial as tolerated. 07/14: Mentation is unchanged, remains afebrile and stable on the vent, VSS. Complete antibiotics course, still on IV steroids X3 more days. ID recommendations noted, remove corbin. Continue daily PSV trial as tolerated. 07/15: DELMI overnight, mentation unchanged, VSS. Patient failed PSV trial this am due to apnea. Continue daily PSV trial as tolerated. Possible trach and Peg per [facility]. 07/16: No acute events overnight, attempted PSV again today. [facility] to have family meeting on 07/17 to discuss trach/PEG 07/17: [facility] will have family meeting tomorrow. Failed PSV again. No acute events overnight. Thrombocytopenia continues to improve 07/18: [facility] held a family meeting today and surgery will be consulted for trach/PEG placement. Family stated that patient had not had her levothyroxine for several months due to decreased p.o. intake, will send thyroid panel. No acute events reported overnight. Hypotension today and 500 mL normal saline bolus given. Possible trach/peg within 2 days 07/19: No acute events reported overnight. Free T4 normal. Failed PSV 07/20: No acute events reported overnight. Patient taken off isolation per ID. Trach/PEG scheduled for Friday. failed PSV 07/21: No acute events reported overnight. Trach/peg for friday. PSV ongoing 07/22: Remains stable, DELMI overnight. Plan for possible Trac/PEG today by general surgery. Continue dailu PSV trial as tolerated. 07/23: s/p trach and PEG, remains stable on low vent setting, recent CXR is unremarkable. VSS. Resume TF once okayed by General Surgery. Continue daily PSV trial as tolerated. Possible LTAC placement, case management to arrange. 07/24: Remains stable on the vent, tolerating TF via Peg. Continue supportive measures and daily PSV trial. Awaiting placement. 07/25: DELMI overnight. Continue supportive measures and daily PSV trial. PT/OT consulted. Awaiting placement, case management to arrange. 07/26: DELMI overnight. Continue supportive measures and daily PSV trial. Awaiting placement, case management to arrange. 07/27: Patient failed PSV trial this am due to periods of apnea. Continue daily PSV trial as tolerated. Awaiting placement, case management to arrange. 07/28: DELMI overnight. Continue daily PSV trial as tolerated. Awaiting placement, case management to arrange. 07/29: No acute events reported overnight, failed CPAP trial. 07/30: CPAP trial, no acute events reported overnight. Continue supportive care. Awaiting LTAC placement. Hospitalist Physical - Constitutional Vitals: Temp Pulse Resp BP Pulse Ox 98.6 F 93 H 11 L 119/77 100 07/30/22 11:39 07/30/22 13:00 07/30/22 13:00 07/30/22 13:00 07/30/22 13:00 General appearance: Present: no acute distress - EENT Eyes: Present: PERRL, EOM intact - Respiratory Respiratory: bilateral: diminished - Cardiovascular Rhythm: regular Heart Sounds: Present: S1 & S2. Absent: systolic murmur, diastolic murmur - Extremities Extremities: no ischemia, pulses intact, pulses symmetrical, No edema, normal temperature, normal color Peripheral Pulses: within normal limits - Abdominal General gastrointestinal: soft, non-tender, non-distended, normal bowel sounds - Integumentary Integumentary: Present: warm, dry - Psychiatric Psychiatric: other - Neurologic Neurologic: other (intermittanly follows simple commands, does track/focus) - Allied Health Allied health notes reviewed: nursing, RT, social work HEART Score - HEART Score Troponin: Troponin T 0.010 ng/mL (0.00-0.029) 07/07/22 04:17 Results - Labs CBC & Chem 7: 07/30/22 14:15 07/29/22 04:05 Labs: Laboratory Last Values WBC 6.8 K/mm3 (4.5-11.0) 07/30/22 14:15 RBC 2.55 M/mm3 (3.65-5.03) L 07/30/22 14:15 Hgb 8.5 gm/dl (10.1-14.3) L 07/30/22 14:15 Hct 25.7 % (30.3-42.9) L 07/30/22 14:15 MCV 101 fl (79-97) H 07/30/22 14:15 MCH 33 pg (28-32) H 07/30/22 14:15 MCHC 33 % (30-34) 07/30/22 14:15 RDW 16.5 % (13.2-15.2) H 07/30/22 14:15 Plt Count 267 K/mm3 (140-440) 07/30/22 14:15 Lymph % (Auto) 33.3 % (13.4-35.0) 07/22/22 04:13 [place] % (Auto) 10.0 % (0.0-7.3) H 07/22/22 04:13 Eos % (Auto) 0.5 % (0.0-4.3) 07/22/22 04:13 Baso % (Auto) 0.1 % (0.0-1.8) 07/22/22 04:13 Lymph # (Auto) 2.1 K/mm3 (1.2-5.4) 07/22/22 04:13 [place] # (Auto) 0.6 K/mm3 (0.0-0.8) 07/22/22 04:13 Eos # (Auto) 0.0 K/mm3 (0.0-0.4) 07/22/22 04:13 Baso # (Auto) 0.0 K/mm3 (0.0-0.1) 07/22/22 04:13 Seg Neutrophils % 56.1 % (40.0-70.0) 07/22/22 04:13 Seg Neutrophils # 3.6 K/mm3 (1.8-7.7) 07/22/22 04:13 PT 13.0 Sec. (12.2-14.9) 07/30/22 14:15 INR 0.89 (0.87-1.13) 07/30/22 14:15 APTT 32.6 Sec. (24.2-36.6) 07/30/22 14:15 D-Dimer 925.80 ng/mlDDU (0-234) H 07/12/22 04:00 ABG pH 7.503 pH Units (7.350-7.450) H 07/20/22 05:30 ABG pCO2 42.7 mm Hg 07/20/22 05:30 ABG pO2 99.1 mm Hg (80.0-90.0) H 07/20/22 05:30 ABG HCO3 32.8 mmol/L (20.0-26.0) H 07/20/22 05:30 ABG O2 Saturation 97.8 % (95.0-99.0) 07/20/22 05:30 ABG O2 Content 13.3 (0.0-44) 07/20/22 05:30 ABG Base Excess 8.8 mmol/L (-2.0-3.0) H 07/20/22 05:30 ABG Hemoglobin 9.7 gm/dl (12.0-16.0) L 07/20/22 05:30 ABG Carboxyhemoglobin 1.3 % (0.0-5.0) 07/20/22 05:30 ABG Methemoglobin 0.6 % (0.0-1.5) 07/20/22 05:30 Oxyhemoglobin 95.9 % (95.0-99.0) 07/20/22 05:30 FiO2 28 % 07/20/22 05:30 Sodium 141 mmol/L (137-145) 07/29/22 04:05 Potassium 4.1 mmol/L (3.6-5.0) 07/29/22 04:05 Chloride 102.3 mmol/L (98-107) 07/29/22 04:05 Carbon Dioxide 33 mmol/L (22-30) H 07/29/22 04:05 Anion Gap 10 mmol/L 07/29/22 04:05 BUN 11 mg/dL (7-17) 07/29/22 04:05 Creatinine 0.3 mg/dL (0.6-1.2) L 07/29/22 04:05 Estimated GFR > 60 ml/min 07/29/22 04:05 BUN/Creatinine Ratio 37 % 07/29/22 04:05 Glucose 115 mg/dL (65-100) H 07/29/22 04:05 POC Glucose 110 mg/dL (70-105) H 07/30/22 06:03 Lactic Acid 2.10 mmol/L (0.7-2.0) H* 07/10/22 08:24 Uric Acid 13.5 mg/dL (3.5-7.6) H 07/07/22 04:17 Calcium 8.2 mg/dL (8.4-10.2) L 07/29/22 04:05 Phosphorus 3.00 mg/dL (2.5-4.5) 07/29/22 04:05 Magnesium 1.70 mg/dL (1.7-2.3) 07/29/22 04:05 Ferritin 519.5 ng/mL (10.0-200.0) H 07/12/22 04:00 Total Bilirubin 0.30 mg/dL (0.1-1.2) 07/10/22 04:21 AST 89 units/L (5-40) H 07/10/22 04:21 ALT 53 units/L (7-56) 07/10/22 04:21 Alkaline Phosphatase 83 units/L (35-129) 07/10/22 04:21 Ammonia 32.0 umol/L (25-60) 07/07/22 04:17 Lactate Dehydrogenase 444 units/L (91-180) H 07/12/22 04:00 Total Creatine Kinase 1745 units/L (30-135) H 07/11/22 05:40 Troponin T 0.010 ng/mL (0.00-0.029) 07/07/22 04:17 C-Reactive Protein 0.30 mg/dL (0.00-1.30) 07/12/22 04:00 Total Protein 4.9 g/dL (6.3-8.2) L 07/10/22 04:21 Albumin 2.5 g/dL (3.9-5) L 07/10/22 04:21 Albumin/Globulin Ratio 1.0 % 07/10/22 04:21 Procalcitonin 0.19 ng/mL (<0.15) 07/08/22 14:54 TSH 9.750 mlU/mL (0.270-4.200) H 07/18/22 12:31 Free T4 0.78 ng/dL (0.76-1.46) 07/18/22 12:31 Thyroxine (T4) 6.2 ug/dL (4.0-12.0) 07/18/22 12:31 Free T3 Index 1.7 pg/mL (2.3-4.2) L 07/18/22 12:31 Total Cortisol 47.9 mcg/dL () 07/07/22 07:43 Urine Color Yellow (Yellow) 07/07/22 03:17 Urine Turbidity Slightly cloudy (Clear) 07/07/22 03:17 Specific [place] (Man) 1.015 (1.003-1.030) 07/07/22 03:17 Ur Protein (Man) 1+ mg/dL (Negative) 07/07/22 03:17 Ur Ketones (Man) Negative (Negative) 07/07/22 03:17 Ur Nitrite (Man) Negative (Negative) 07/07/22 03:17 Urine Bilirubin (Man) Negative (Negative) 07/07/22 03:17 Leukocyte Esterase (Man) Negative (Negative) 07/07/22 03:17 Urine WBC (Auto) 7.0 /HPF (0.0-6.0) H 07/07/22 03:17 Urine RBC (Auto) 1.0 /HPF (0.0-6.0) 07/07/22 03:17 U Epithel Cells (Auto) 4.0 /HPF (0-13.0) 07/07/22 03:17 Urine Bacteria (Auto) 3+ /HPF (Negative) 07/07/22 03:17 Urine RBC (Manual) 3+ (Negative) 07/07/22 03:17 Urine Mucus 3+ /HPF 07/07/22 03:17 Urine Osmolality 744 Mosm/kg 07/07/22 16:45 Urine Creatinine 92.9 mg/dL (0.1-20.0) H 07/07/22 16:45 Urine Sodium 109 mmol/L 07/07/22 16:45 Salicylates < 0.3 mg/dL (2.8-20.0) L 07/07/22 03:38 Urine Opiates Screen Presumptive negative 07/07/22 03:17 Urine Methadone Screen Presumptive negative 07/07/22 03:17 Acetaminophen 5.0 ug/mL (10.0-30.0) L 07/07/22 03:38 Ur Barbiturates Screen Presumptive negative 07/07/22 03:17 Valproic Acid 7.0 ug/mL (50-100) L 07/07/22 03:38 Ur Phencyclidine Scrn Presumptive negative 07/07/22 03:17 Ur Amphetamines Screen Presumptive negative 07/07/22 03:17 U Benzodiazepines Scrn Presumptive negative 07/07/22 03:17 Urine Cocaine Screen Presumptive negative 07/07/22 03:17 U Marijuana (THC) Screen Presumptive negative 07/07/22 03:17 Drugs of Abuse Note Disclamer 07/07/22 03:17 Plasma/Serum Alcohol < 0.01 % (0-0.07) 07/07/22 03:38 SARS-CoV-2 (PCR) Positive (Negative) A 07/07/22 15:00 [place]/IV: Voiding Method External Female Catheter Active Medications - Current Medications Current Medications: Generic Name Dose Route Start Last Admin Trade Name Freq PRN Reason Stop Dose Admin Acetaminophen 650 mg 07/13/22 12:00 07/25/22 21:28 Acetaminophen 325 Mg/10.15 Ml Oral Liqd Unit Dose FEEDTUBE 650 mg Q6H PRN Administration Pain MILD(1-3)/Fever >100.5/LEE Apixaban 5 mg 07/30/22 22:00 Apixaban 5 Mg Tab FEEDTUBE Q12HR ERROL Protocol Atorvastatin Calcium 80 mg 07/10/22 22:00 07/29/22 22:00 Atorvastatin 40 Mg Tab FEEDTUBE 80 mg QHS ERROL Administration Cholecalciferol 1,000 unit 07/10/22 10:00 07/30/22 09:31 Cholecalciferol (Vit D3) 1000 Unit (25 Mcg) Tab FEEDTUBE 1,000 unit QDAY ERROL Administration Dextrose 50 ml 07/09/22 11:42 Dextrose 50% In Water (25gm) 50 Ml Syringe IV Q30MIN PRN Hypoglycemia Protocol Famotidine 20 mg 07/09/22 22:00 07/30/22 09:31 Famotidine 20 Mg Tab FEEDTUBE 20 mg BID ERROL Administration Hydrophilic Ointment 1 applic 07/07/22 02:48 Lip Therapy Vaseline TP Q2HR PRN Dry Lips Insulin Human Lispro 0 unit 07/09/22 12:00 07/30/22 06:39 Insulin Lispro 100 Unit/Ml SUB-Q Not Given Q6HR [facility] Protocol Levothyroxine Sodium 75 mcg 07/11/22 06:00 07/30/22 05:40 Levothyroxine 75 Mcg Tab FEEDTUBE 75 mcg QAM@0600 ERROL Administration Multi-Ingred Cream/Lotion/Oil/Oint 1 applic 07/07/22 02:48 Mineral Oil/Petrolatum, White Ophth Oint 3.5 Gm OU Q4HR PRN Dry Eye(s) Senna/Docusate Sodium 1 tab 07/07/22 10:00 07/30/22 09:31 Sennosides/Docusate Sodium 8.6/50 Mg Tab FEEDTUBE 1 tab BID ERROL Administration Sodium Chloride 10 ml 07/07/22 13:00 07/30/22 09:31 Sodium Chloride 0.9% 10 Ml Flush Syringe IV 10 ml BID ERROL Administration Sodium Chloride 10 ml 07/07/22 12:09 Sodium Chloride 0.9% 10 Ml Flush Syringe IV PRN PRN LINE FLUSH Valproic Acid 250 mg 07/10/22 22:00 07/30/22 09:31 Valproic Acid 250 Mg/5 Ml Oral Liqd FEEDTUBE 250 mg Q12H ERROL Administration Nutrition/Malnutrition Assess - Dietary Evaluation Nutrition/Malnutrition Findings: Nutrition Notes Start: 07/07/22 13:24 Freq: Status: Active Protocol: Document 07/24/22 09:24 DAREN (Rec: 07/24/22 09:53 DAREN [id number]) Nutrition Notes Initial or Follow up Reassessment Current Diagnosis Respiratory Failure,Stroke, Hyperlipidemia Other Pertinent Diagnosis COVID-19, Metabolic Encephalopathy, Pulmonary Embolism, Dementia. Current Diet TF-Vital AF 1.2 [place] @ 50 ml/hr (from D 07/12). Labs/Tests 07/24: CO2 33, Crea 0.4, Ca 8. 3. Pertinent Medications 07/24: Vit D3, D5w @ 50ml/hr, Levothyroxine, others nutritionally unremarkable. Height 5 ft 6 in Weight 96.2 kg [place] Body Weight (kg) 59.09 BMI 34.2 Weight change and time frame 0.946 Kg body weight gain in 1 week reported. Weight Status Obese Subjective/Other Information RD consult for routine F/U on TF tolerance/continuation assessment. TF continues as prescribed, and well tolerated, according to RN notes. Pt continues on Mechanical Ventilation, O2 saturation @ 98%, according to Physical Assessment History notes. Procedure on 07/22: Percutaneous Tracheostomy and EGD w/PEG-tube placement, well tolerated. according to Operative Report notes. TF resumed on 07/23, after PEG -tube placement, according to Progress notes. Possible discharge to LTAC facility, according to Progress notes. Percent of energy/protein needs met: Prescribed TF-Vital AF 1.2 [place] @ 50 ml/hr provides for energy/protein needs (1,440 Kcal/90 g) during LOS, 101% Kcal, 91% AA. Burn Absent Trauma Absent GI Symptoms Other Difficulty In Swallowing,Chewing Food Allergy No Skin Integrity/Comment Assessment WNL. Current % PO Other Minimum of two criteria Yes Energy Intake (non-severe) <75% Estimated Energy Requirement >7 days Interpretation of Weight Loss (non- 5% in 1 month severe) Fluid Accumulation N/A Protein-Calorie Malnutrition Non-Severe #2 Nutrition Diagnosis Malnutrition Comments: TF continues as prescribed, and well tolerated, according to RN notes. Diagnosis Progress(for reassessment Improved documentation) #1 Nutrition Diagnosis Inadequate oral intake Comments: Procedure on 07/22: Percutaneous Tracheostomy and EGD w/PEG-tube placement, well tolerated. according to Operative Report notes. TF resumed on 07/23, after PEG -tube placement, according to Progress notes. Diagnosis Progress(for reassessment Continues documentation) Is patient on ventilator? Yes Is Patient Ambulatory and/or Out of Bed No REE-([facility]-confined to bed) 1774.548 Kcal/Kg value to use for calculation 15 Approximate Energy Requirements Using 1443 kcal/Kg Calculation Used for Recommendations Kcal/kg Additional Notes Protein: 1.3 g/Kg AdjBW; 101 g /day. Fluids: 1 ml/Kcal, or as per MD. Nutrition Intervention Nutrition Support: Continue TF-Vital AF 1.2 [place] @ 50 ml/hr. Flush: 75 ml water Q 4 hr, or as per MD. Kcal 1,440 Protein (gm) 90 Carbohydrates (gm) 133 Fat (gm) 65 Fluid (mL) 973 Fiber (gm) 6 % RDI: 101% Kcal; 91% AA. Goal #1 Provide at least 75% of energy /protein needs through Enteral Feeding during LOS. Follow-Up By: 08/07/22 Additional Comments Continue monitoring TF tolerance, ventilation status, and BM.
[2022-07-30] MEDS: APIXABAN 5 MG TAB FEEDTUBE SCH (21:15)
[2022-07-31] MEDS: INSULIN LISPRO 100 UNIT/ML SUB-Q SCH ×4 (00:46→18:20)
[2022-07-31 05:04] LABS: Hematocrit 26.9 % (30.3-42.9); Hemoglobin 8.9 gm/dl (10.1-14.3); Mean Corpuscular HGB Conc 33 % (30-34); Mean Corpuscular Volume 101 fl (79-97); Platelet Count 296 K/mm3 (140-440); Red Blood Count 2.67 M/mm3 (3.65-5.03)
[2022-07-31 05:26] LABS: Blood Urea Nitrogen 13 mg/dL (7-17); Calcium 8.9 mg/dL (8.4-10.2); Hemolysis Index 4
[2022-07-31 05:32] LABS: BUN/Creatinine Ratio 43
[2022-07-31] MEDS: LEVOTHYROXINE 75 MCG TAB FEEDTUBE SCH (06:34)
[2022-07-31] MEDS: VALPROIC ACID 250 MG/5 ML ORAL LIQD FEEDTUBE SCH ×2 (09:13→22:27)
[2022-07-31] MEDS: APIXABAN 5 MG TAB FEEDTUBE SCH ×2 (09:13→22:27)
[2022-07-31] MEDS: FAMOTIDINE 20 MG TAB FEEDTUBE SCH ×2 (09:13→22:28)
[2022-07-31] MEDS: SENNOSIDES/DOCUSATE SODIUM 8.6/50 MG TAB FEEDTUBE SCH ×2 (09:14→22:28)
[2022-07-31] MEDS: CHOLECALCIFEROL (VIT D3) 1000 UNIT (25 mcg) TAB FEEDTUBE SCH (09:14)
--- NOTE | 2022-07-31 17:56 | Progress Note ---
Assessment and Plan Assessment and plan: This is a 76-year-old female with CVA, pulmonary embolism, hypothyroidism and JUJU admitted with electrolyte imbalances, hypoxic respiratory failure and COVID- 19 pneumonia Neuro: Acute metabolic encephalopathy, h/o CVA with hemiplegia, dysphagia, aphasia, dementia -Neurology consulted, appreciate recommendations -Reorientation as needed -Maintain sleep-wake cycle -Resume home Lipitor -As needed analgesia -CT head shows no acute intracranial hemorrhage, multiple chronic appearing infarcts including left MCA distribution, left cerebral hemisphere and within the right basal ganglia -Depakene -EEG compatible with significant diffuse encephalopathy -MRI shows no acute findings, remote infarction of the left frontal lobe and left cerebellum, moderate sequela of chronic microvascular disease Cardiac: h/o HLD -Resume home Lipitor -Blood pressure monitoring per protocol Respiratory: Acute hypoxic respiratory failure, h/o JUJU, pulmonary embolism -CCM consulted, appreciate recommendations -Intubated on 07/07 with a 7.50 ETT at 24 the lips -07/22 s/p Trach/PEG -A.m. vent settings: AC rate 10, tidal and 400, PEEP 6, FiO2 28 -See RT notes for titration -A.m. ABG and CXR noted -VAP bundle -SPO2 monitoring -Eliquis restarted GI: NAD -PPI -07/22 s/p PEG -NTR consulted for tube feedings -BR: Senokot-S : Rhabdomyolysis -Nephrology consulted, appreciate recommendations -Monitor intake and output -Free water flush -Renally dose medications -Avoid nephrotoxic medications -Trend BMP ID: COVID-19 pneumonia, lactic acidosis, Klebsiella pneumonia -Infectious disease consulted, appreciate recommendation - s/p Azithromycin 07/07-07/10, Rocephin -Decadron 10mg for 10 days () -s/p Remdesivir () -CRP 0.3, procalcitonin 0.19 -Contact/droplet precautions discontinued -f/u blood culture -Trend COVID-19 inflammatory markers -Monitor WBC and temperature curve -Prophylactic anticoagulation based on D-dimer per hospital protocol Endo: h/o hypothyroidism -Avoid hypoglycemia -SSI -Accu-Cheks q. 6 -Long-acting insulin, titrate as needed -Resume home Synthroid Heme: Thrombocytopenia (resolved) -Trend CBC -Transfuse hemoglobin less than 7 -SCDs to BLE while in bed The high probability of a clinically significant, sudden or life threatening deterioration of the [multi] system(s) required my full and direct attention, intervention and personal management. The aggregate critical care time was [60] minutes. This time is in addition to time spent performing reported procedures but includes the following: [x] Data Review and interpretation [x] Patient assessment and monitoring of vital signs [x] Documentation [x] Medication orders and management Disposition Plan: ICU Total Time Spent with Patient (Minutes): 60 History Interval history: This is a 76-year-old female with CVA resulting hemiplegia, dysphagia, aphasia, dementia, pulm embolism without acute cor pulmonale, hypothyroidism and UJJU who presented to the hospital on 07/07 from her longterm for altered mental status and diminished cognition and possible hypoxia via EMS. In the emergency department patient was intubated due to concern for airway protection. Recommend emergency department showed leukocytosis, hyponatremia with a sodium of 168, hypercalcemia, hypomagnesemia, elevated CK. Patient was admitted to the hospitalist service with acute hypoxic respiratory failure, COVID-19 PUI, hypernatremia, transaminitis, rhabdomyolysis with consults to CCM and nephrology: Hospital course to date: 07/08: Patient noted to be COVID-positive, started on remdesivir, Decadron, ceftriaxone azithromycin and infectious disease was consulted yesterday. This morning patient is on any sedation, PICC line to be placed. RT to attempt PSV. Started on free water flushes and tube feedings. Continues on D5 half-normal saline. 07/09: Patient remains encephalopathic, not on any sedation. Hypernatremia is improving, on FWF Q4hrs and D5w gtt per Nephro. If hypernatremia continue to improve and patient's mentation is unchanged, will get a repeat CT to r/o intracranial abnormalities. Patient remains afebrile, leukocytosis improved, and VSS. Continue current IV abx per ID. Patient failed PSV trial again today, continue PSV trial as tolerated 07/10: Remains stable on the vent, tolerating PSV trial this am. sodium continue to improve but no change in mental status. D/w CCM will get MRI brain to r/o any intracranial abnormalities, EEG also ordered to r/o seizures. Continue FWF and D5w gtt per Nephro. Continue IV steroids and current IV abx per ID. 07/11: Hypernatremia resolved, mentation is unchanged, remains on low vent setting. EEG noted, and MRI brain pending. Will consult Neurology for further recommendations. Continue daily PSV trial as tolerated. 07/12: Appears more awake this morning but still not following any commands. MRI brain with no acute findings and sodium normalized. Awaiting Neuro consult. Continue daily PSV trial as tolerated. Patient's daughter was updated via phone, all questions and concerns were addressed at this time. Medical records reques sorin from [facility] and [facility]. 07/13: DELMI overnight. Mentation is unchanged, remains stable on the vent. Neurology consult pending. Continue vent adjustment per [facility] and daily PSV trial as tolerated. 07/14: Mentation is unchanged, remains afebrile and stable on the vent, VSS. Complete antibiotics course, still on IV steroids X3 more days. ID recommendations noted, remove corbin. Continue daily PSV trial as tolerated. 07/15: DELMI overnight, mentation unchanged, VSS. Patient failed PSV trial this am due to apnea. Continue daily PSV trial as tolerated. Possible trach and Peg per [facility]. 07/16: No acute events overnight, attempted PSV again today. [facility] to have family meeting on 07/17 to discuss trach/PEG 07/17: [facility] will have family meeting tomorrow. Failed PSV again. No acute events overnight. Thrombocytopenia continues to improve 07/18: [facility] held a family meeting today and surgery will be consulted for trach/PEG placement. Family stated that patient had not had her levothyroxine for s everal months due to decreased p.o. intake, will send thyroid panel. No acute events reported overnight. Hypotension today and 500 mL normal saline bolus given. Possible trach/peg within 2 days 07/19: No acute events reported overnight. Free T4 normal. Failed PSV 07/20: No acute events reported overnight. Patient taken off isolation per ID. Trach/PEG scheduled for Friday. failed PSV 07/21: No acute events reported overnight. Trach/peg for friday. PSV ongoing 07/22: Remains stable, DELMI overnight. Plan for possible Trac/PEG today by general surgery. Continue dailu PSV trial as tolerated. 07/23: s/p trach and PEG, remains stable on low vent setting, recent CXR is unremarkable. VSS. Resume TF once okayed by General Surgery. Continue daily PSV trial as tolerated. Possible LTAC placement, case management to arrange. 07/24: Remains stable on the vent, tolerating TF via Peg. Continue supportive measures and daily PSV trial. Awaiting placement. 07/25: DELMI overnight. Continue supportive measures and daily PSV trial. PT/OT consulted. Awaiting placement, case management to arrange. 07/26: DELMI overnight. Continue supportive measures and daily PSV trial. Awaiting placement, case management to arrange. 07/27: Patient failed PSV trial this am due to periods of apnea. Continue daily PSV trial as tolerated. Awaiting placement, case management to arrange. 07/28: DELMI overnight. Continue daily PSV trial as tolerated. Awaiting placement, case management to arrange. 07/29: No acute events reported overnight, failed CPAP trial. 07/30: CPAP trial, no acute events reported overnight. Continue supportive care. Awaiting LTAC placement. 07/31: No acute events reported overnight. Failed CPAP trial. Hospitalist Physical - Constitutional Vitals: Temp Pulse Resp BP Pulse Ox 98.6 F 103 H 10 L 120/67 100 07/31/22 16:00 07/31/22 16:41 07/31/22 16:00 07/31/22 16:41 07/31/22 16:41 General appearance: Present: no acute distress - EENT Eyes: Present: PERRL, EOM intact ENT: dentition normal - Neck Neck: Present: normal ROM - Respiratory Respiratory effort: normal Respiratory: bilateral: diminished, rhonchi - Cardiovascular Rhythm: regular Heart Sounds: Present: S1 & S2. Absent: systolic murmur, diastolic murmur - Extremities Extremities: no ischemia, pulses intact, pulses symmetrical, No edema, normal temperature, normal color Peripheral Pulses: within normal limits - Abdominal General gastrointestinal: soft, non-tender, non-distended, normal bowel sounds - Integumentary Integumentary: Present: warm, dry - Psychiatric Psychiatric: other - Neurologic Neurologic: other (Intact cough/gag, pupils equal round reactive) - Allied Health Allied health notes reviewed: nursing, RT, social work HEART Score - HEART Score Troponin: Troponin T 0.010 ng/mL (0.00-0.029) 07/07/22 04:17 Results - Labs CBC & Chem 7: 07/31/22 04:45 07/31/22 04:45 Labs: Laboratory Last Values WBC 6.8 K/mm3 (4.5-11.0) 07/31/22 04:45 RBC 2.67 M/mm3 (3.65-5.03) L 07/31/22 04:45 Hgb 8.9 gm/dl (10.1-14.3) L 07/31/22 04:45 Hct 26.9 % (30.3-42.9) L 07/31/22 04:45 MCV 101 fl (79-97) H 07/31/22 04:45 MCH 33 pg (28-32) H 07/31/22 04:45 MCHC 33 % (30-34) 07/31/22 04:45 RDW 17.0 % (13.2-15.2) H 07/31/22 04:45 Plt Count 296 K/mm3 (140-440) 07/31/22 04:45 Lymph % (Auto) 33.3 % (13.4-35.0) 07/22/22 04:13 [place] % (Auto) 10.0 % (0.0-7.3) H 07/22/22 04:13 Eos % (Auto) 0.5 % (0.0-4.3) 07/22/22 04:13 Baso % (Auto) 0.1 % (0.0-1.8) 07/22/22 04:13 Lymph # (Auto) 2.1 K/mm3 (1.2-5.4) 07/22/22 04:13 [place] # (Auto) 0.6 K/mm3 (0.0-0.8) 07/22/22 04:13 Eos # (Auto) 0.0 K/mm3 (0.0-0.4) 07/22/22 04:13 Baso # (Auto) 0.0 K/mm3 (0.0-0.1) 07/22/22 04:13 Seg Neutrophils % 56.1 % (40.0-70.0) 07/22/22 04:13 Seg Neutrophils # 3.6 K/mm3 (1.8-7.7) 07/22/22 04:13 PT 13.0 Sec. (12.2-14.9) 07/30/22 14:15 INR 0.89 (0.87-1.13) 07/30/22 14:15 APTT 32.6 Sec. (24.2-36.6) 07/30/22 14:15 D-Dimer 925.80 ng/mlDDU (0-234) H 07/12/22 04:00 ABG pH 7.503 pH Units (7.350-7.450) H 07/20/22 05:30 ABG pCO2 42.7 mm Hg 07/20/22 05:30 ABG pO2 99.1 mm Hg (80.0-90.0) H 07/20/22 05:30 ABG HCO3 32.8 mmol/L (20.0-26.0) H 07/20/22 05:30 ABG O2 Saturation 97.8 % (95.0-99.0) 07/20/22 05:30 ABG O2 Content 13.3 (0.0-44) 07/20/22 05:30 ABG Base Excess 8.8 mmol/L (-2.0-3.0) H 07/20/22 05:30 ABG Hemoglobin 9.7 gm/dl (12.0-16.0) L 07/20/22 05:30 ABG Carboxyhemoglobin 1.3 % (0.0-5.0) 07/20/22 05:30 ABG Methemoglobin 0.6 % (0.0-1.5) 07/20/22 05:30 Oxyhemoglobin 95.9 % (95.0-99.0) 07/20/22 05:30 FiO2 28 % 07/20/22 05:30 Sodium 140 mmol/L (137-145) 07/31/22 04:45 Potassium 4.2 mmol/L (3.6-5.0) 07/31/22 04:45 Chloride 102.5 mmol/L (98-107) 07/31/22 04:45 Carbon Dioxide 32 mmol/L (22-30) H 07/31/22 04:45 Anion Gap 10 mmol/L 07/31/22 04:45 BUN 13 mg/dL (7-17) 07/31/22 04:45 Creatinine 0.3 mg/dL (0.6-1.2) L 07/31/22 04:45 Estimated GFR > 60 ml/min 07/31/22 04:45 BUN/Creatinine Ratio 43 % 07/31/22 04:45 Glucose 108 mg/dL (65-100) H 07/31/22 04:45 POC Glucose 112 mg/dL (70-105) H 07/31/22 11:33 Lactic Acid 2.10 mmol/L (0.7-2.0) H* 07/10/22 08:24 Uric Acid 13.5 mg/dL (3.5-7.6) H 07/07/22 04:17 Calcium 8.9 mg/dL (8.4-10.2) 07/31/22 04:45 Phosphorus 3.00 mg/dL (2.5-4.5) 07/29/22 04:05 Magnesium 1.70 mg/dL (1.7-2.3) 07/29/22 04:05 Ferritin 519.5 ng/mL (10.0-200.0) H 07/12/22 04:00 Total Bilirubin 0.30 mg/dL (0.1-1.2) 07/10/22 04:21 AST 89 units/L (5-40) H 07/10/22 04:21 ALT 53 units/L (7-56) 07/10/22 04:21 Alkaline Phosphatase 83 units/L (35-129) 07/10/22 04:21 Ammonia 32.0 umol/L (25-60) 07/07/22 04:17 Lactate Dehydrogenase 444 units/L (91-180) H 07/12/22 04:00 Total Creatine Kinase 1745 units/L (30-135) H 07/11/22 05:40 Troponin T 0.010 ng/mL (0.00-0.029) 07/07/22 04:17 C-Reactive Protein 0.30 mg/dL (0.00-1.30) 07/12/22 04:00 Total Protein 4.9 g/dL (6.3-8.2) L 07/10/22 04:21 Albumin 2.5 g/dL (3.9-5) L 07/10/22 04:21 Albumin/Globulin Ratio 1.0 % 07/10/22 04:21 Procalcitonin 0.19 ng/mL (<0.15) 07/08/22 14:54 TSH 9.750 mlU/mL (0.270-4.200) H 07/18/22 12:31 Free T4 0.78 ng/dL (0.76-1.46) 07/18/22 12:31 Thyroxine (T4) 6.2 ug/dL (4.0-12.0) 07/18/22 12:31 Free T3 Index 1.7 pg/mL (2.3-4.2) L 07/18/22 12:31 Total Cortisol 47.9 mcg/dL () 07/07/22 07:43 Urine Color Yellow (Yellow) 07/07/22 03:17 Urine Turbidity Slightly cloudy (Clear) 07/07/22 03:17 Specific [place] (Man) 1.015 (1.003-1.030) 07/07/22 03:17 Ur Protein (Man) 1+ mg/dL (Negative) 07/07/22 03:17 Ur Ketones (Man) Negative (Negative) 07/07/22 03:17 Ur Nitrite (Man) Negative (Negative) 07/07/22 03:17 Urine Bilirubin (Man) Negative (Negative) 07/07/22 03:17 Leukocyte Esterase (Man) Negative (Negative) 07/07/22 03:17 Urine WBC (Auto) 7.0 /HPF (0.0-6.0) H 07/07/22 03:17 Urine RBC (Auto) 1.0 /HPF (0.0-6.0) 07/07/22 03:17 U Epithel Cells (Auto) 4.0 /HPF (0-13.0) 07/07/22 03:17 Urine Bacteria (Auto) 3+ /HPF (Negative) 07/07/22 03:17 Urine RBC (Manual) 3+ (Negative) 07/07/22 03:17 Urine Mucus 3+ /HPF 07/07/22 03:17 Urine Osmolality 744 Mosm/kg 07/07/22 16:45 Urine Creatinine 92.9 mg/dL (0.1-20.0) H 07/07/22 16:45 Urine Sodium 109 mmol/L 07/07/22 16:45 Salicylates < 0.3 mg/dL (2.8-20.0) L 07/07/22 03:38 Urine Opiates Screen Presumptive negative 07/07/22 03:17 Urine Methadone Screen Presumptive negative 07/07/22 03:17 Acetaminophen 5.0 ug/mL (10.0-30.0) L 07/07/22 03:38 Ur Barbiturates Screen Presumptive negative 07/07/22 03:17 Valproic Acid 7.0 ug/mL (50-100) L 07/07/22 03:38 Ur Phencyclidine Scrn Presumptive negative 07/07/22 03:17 Ur Amphetamines Screen Presumptive negative 07/07/22 03:17 U Benzodiazepines Scrn Presumptive negative 07/07/22 03:17 Urine Cocaine Screen Presumptive negative 07/07/22 03:17 U Marijuana (THC) Screen Presumptive negative 07/07/22 03:17 Drugs of Abuse Note Disclamer 07/07/22 03:17 Plasma/Serum Alcohol < 0.01 % (0-0.07) 07/07/22 03:38 SARS-CoV-2 (PCR) Positive (Negative) A 07/07/22 15:00 [place]/IV: Voiding Method External Female Catheter Active Medications - Current Medications Current Medications: Generic Name Dose Route Start Last Admin Trade Name Freq PRN Reason Stop Dose Admin Acetaminophen 650 mg 07/13/22 12:00 07/25/22 21:28 Acetaminophen 325 Mg/10.15 Ml Oral Liqd Unit Dose FEEDTUBE 650 mg Q6H PRN Administration Pain MILD(1-3)/Fever >100.5/LEE Apixaban 5 mg 07/30/22 22:00 07/31/22 09:13 Apixaban 5 Mg Tab FEEDTUBE 5 mg Q12HR ERROL Administration Protocol Atorvastatin Calcium 80 mg 07/10/22 22:00 07/30/22 21:15 Atorvastatin 40 Mg Tab FEEDTUBE 80 mg QHS ERROL Administration Cholecalciferol 1,000 unit 07/10/22 10:00 07/31/22 09:14 Cholecalciferol (Vit D3) 1000 Unit (25 Mcg) Tab FEEDTUBE 1,000 unit QDAY ERROL Administration Dextrose 50 ml 07/09/22 11:42 Dextrose 50% In Water (25gm) 50 Ml Syringe IV Q30MIN PRN Hypoglycemia Protocol Famotidine 20 mg 07/09/22 22:00 07/31/22 09:13 Famotidine 20 Mg Tab FEEDTUBE 20 mg BID ERROL Administration Hydrophilic Ointment 1 applic 07/07/22 02:48 Lip Therapy Vaseline TP Q2HR PRN Dry Lips Insulin Human Lispro 0 unit 07/09/22 12:00 07/31/22 11:57 Insulin Lispro 100 Unit/Ml SUB-Q Not Given Q6HR ERROL Protocol Levothyroxine Sodium 75 mcg 07/11/22 06:00 07/31/22 06:34 Levothyroxine 75 Mcg Tab FEEDTUBE 75 mcg QAM@0600 ERROL Administration Multi-Ingred Cream/Lotion/Oil/Oint 1 applic 07/07/22 02:48 Mineral Oil/Petrolatum, White Ophth Oint 3.5 Gm OU Q4HR PRN Dry Eye(s) Senna/Docusate Sodium 1 tab 07/07/22 10:00 07/31/22 09:14 Sennosides/Docusate Sodium 8.6/50 Mg Tab FEEDTUBE 1 tab BID ERROL Administration Sodium Chloride 10 ml 07/07/22 13:00 07/31/22 09:14 Sodium Chloride 0.9% 10 Ml Flush Syringe IV 10 ml BID ERROL Administration Sodium Chloride 10 ml 07/07/22 12:09 Sodium Chloride 0.9% 10 Ml Flush Syringe IV PRN PRN LINE FLUSH Valproic Acid 250 mg 07/10/22 22:00 07/31/22 09:13 Valproic Acid 250 Mg/5 Ml Oral Liqd FEEDTUBE 250 mg Q12H ERROL Administration Nutrition/Malnutrition Assess - Dietary Evaluation Nutrition/Malnutrition Findings: Nutrition Notes Start: 07/07/22 13:24 Freq: Status: Active Protocol: Document 07/24/22 09:24 DAREN (Rec: 07/24/22 09:53 DAREN [id number]) Nutrition Notes Initial or Follow up Reassessment Current Diagnosis Respiratory Failure,Stroke, Hyperlipidemia Other Pertinent Diagnosis COVID-19, Metabolic Encephalopathy, Pulmonary Embolism, Dementia. Current Diet TF-Vital AF 1.2 [place] @ 50 ml/hr (from D 07/12). Labs/Tests 07/24: CO2 33, Crea 0.4, Ca 8. 3. Pertinent Medications 07/24: Vit D3, D5w @ 50ml/hr, Levothyroxine, others nutritionally unremarkable. Height 5 ft 6 in Weight 96.2 kg [place] Body Weight (kg) 59.09 BMI 34.2 Weight change and time frame 0.946 Kg body weight gain in 1 week reported. Weight Status Obese Subjective/Other Information RD consult for routine F/U on TF tolerance/continuation assessment. TF continues as prescribed, and well tolerated, according to RN notes. Pt continues on Mechanical Ventilation, O2 saturation @ 98%, according to Physical Assessment History notes. Procedure on 07/22: Percutaneous Tracheostomy and EGD w/PEG-tube placement, well tolerated. according to Operative Report notes. TF resumed on 07/23, after PEG -tube placement, according to Progress notes. Possible discharge to LTAC facility, according to Progress notes. Percent of energy/protein needs met: Prescribed TF-Vital AF 1.2 [place] @ 50 ml/hr provides for energy/protein needs (1,440 Kcal/90 g) during LOS, 101% Kcal, 91% AA. Burn Absent Trauma Absent GI Symptoms Other Difficulty In Swallowing,Chewing Food Allergy No Skin Integrity/Comment Assessment WNL. Current % PO Other Minimum of two criteria Yes Energy Intake (non-severe) <75% Estimated Energy Requirement >7 days Interpretation of Weight Loss (non- 5% in 1 month severe) Fluid Accumulation N/A Protein-Calorie Malnutrition Non-Severe #2 Nutrition Diagnosis Malnutrition Comments: TF continues as prescribed, and well tolerated, according to RN notes. Diagnosis Progress(for reassessment Improved documentation) #1 Nutrition Diagnosis Inadequate oral intake Comments: Procedure on 07/22: Percutaneous Tracheostomy and EGD w/PEG-tube placement, well tolerated. according to Operative Report notes. TF resumed on 07/23, after PEG -tube placement, according to Progress notes. Diagnosis Progress(for reassessment Continues documentation) Is patient on ventilator? Yes Is Patient Ambulatory and/or Out of Bed No REE-([facility]-confined to bed) 1774.548 Kcal/Kg value to use for calculation 15 Approximate Energy Requirements Using 1443 kcal/Kg Calculation Used for Recommendations Kcal/kg Additional Notes Protein: 1.3 g/Kg AdjBW; 101 g /day. Fluids: 1 ml/Kcal, or as per MD. Nutrition Intervention Nutrition Support: Continue TF-Vital AF 1.2 [place] @ 50 ml/hr. Flush: 75 ml water Q 4 hr, or as per MD. Kcal 1,440 Protein (gm) 90 Carbohydrates (gm) 133 Fat (gm) 65 Fluid (mL) 973 Fiber (gm) 6 % RDI: 101% Kcal; 91% AA. Goal #1 Provide at least 75% of energy /protein needs through Enteral Feeding during LOS. Follow-Up By: 08/07/22 Additional Comments Continue monitoring TF tolerance, ventilation status, and BM.
[2022-08-01] MEDS: INSULIN LISPRO 100 UNIT/ML SUB-Q SCH ×4 (00:41→19:02)
[2022-08-01 05:23] LABS: Hematocrit 27.7 % (30.3-42.9); Mean Corpuscular HGB Conc 33 % (30-34); Mean Corpuscular Volume 102 fl (79-97); Platelet Count 326 K/mm3 (140-440); Red Blood Count 2.72 M/mm3 (3.65-5.03); Red Cell Distribution Width 17.4 % (13.2-15.2)
[2022-08-01] MEDS: LEVOTHYROXINE 75 MCG TAB FEEDTUBE SCH (06:53)
[2022-08-01] MEDS: VALPROIC ACID 250 MG/5 ML ORAL LIQD FEEDTUBE SCH ×2 (09:10→22:10)
[2022-08-01] MEDS: CHOLECALCIFEROL (VIT D3) 1000 UNIT (25 mcg) TAB FEEDTUBE SCH (09:11)
[2022-08-01] MEDS: SENNOSIDES/DOCUSATE SODIUM 8.6/50 MG TAB FEEDTUBE SCH ×2 (09:11→22:12)
[2022-08-01] MEDS: APIXABAN 5 MG TAB FEEDTUBE SCH ×2 (09:11→22:11)
[2022-08-01] MEDS: FAMOTIDINE 20 MG TAB FEEDTUBE SCH ×2 (09:11→22:11)
--- NOTE | 2022-08-01 09:37 | Progress Note ---
Assessment and Plan 76 y/o female with acute respiratory failure secondary to altered mental status, most likely from electrolyte abnormalities seen on chemistry, found to be COVID positive. 08/01/22: No new pulmonary recs today. I did speak with 2 daughters via the phone on either Friday or Friday to discuss the lack of change in mental state. Per the daughters, /father is telling them he is seeing things that even the daughter who lives here has not seen. They are preparing to speak with their father about her mental state. Continue supportive measures. 07/31/22: Daily PSV trials. PT/OT if possible. Continue tube feeds. 07/30/22: Continue daily PSV trials. 07/29/22: Daily PSV trials. Hold laxatives and stimulants for now. No changes were made in any other meds. Monitor white count and abdominal exam. 07/26/22: Daily PSV trials. Continue tube feeds. Awaiting placement. 07/25/22: Daily PSV trials. Tube feeds going and tolerating. Need to consider at least PT consult to help with movement of lower ext. 07/24/22: Continue tube feeds. Continue daily PSV trials. Await placement, weanable but will need time. 07/23/22: Tube feeds back on. No PSV trials today but will do again tomorrow. Awaiting placement. 07/22/22: Trach and Peg hopefully today. 07/21/22: Did 6 hours of PSV yesterday. Trach and peg tomorrow. Check labs to make sure lytes are stable. 07/20/22: Trach/Peg Friday. Supportive care. 07/19/22: Appreciate Surgery. on Schedule for next week. Free T4 was normal. No current indication for stress dose steroids. Continue supportive care. 07/18/22: Family meeting: Discussed current mental state. Discussed negative work up so far to explain why mental state hasnt improved. Per family here, patient was better than what she is not but I had difficult time placing a time frame as to when that was, maybe May. It does appear that she has had a steady decline mentally and even stopped eating. There were talks prior to her admission here about Peg tube placement. Discussed the idea of trach and peg placement. Also explained to family that trach does not fix any underlying reas on as to why the patient's mental state is the way it is. The family wasn't aware that she was brought in for altered mental status, they were told she had bradycardia. Nonetheless, the family as a whole wish to pursue trach and peg placement. Consulted Surgery and hopeful they will see soon. Continue supportive measures and continue daily PSV trials. TSH on admit was 13, will repeat but if T4 is normal, nothing to do. She also is not behaving like myxedema coma. Guarded prognosis. 07/17/22: steroids end today. Continue daily PSV trials. Will speak with family about next steps as today is day 10 of intubation and it does not appear that conventional extubation is in the near future. 07/16/22: Continue daily PSV trials. Will speak with family tomorrow as patient is not improving enough for conventional extubation, especially with frequent apnic events. Most likely patient will need trach and peg. 07/15/22: mental status is still unchanged. Eyes open but not tracking or follow ing commands. Also going apnic on PSV trials. Most likely will need trach and peg given mental status has not improved. 07/12/22: Negative MRI for acute infarct. Na is normal. Continue to monitor. Daily PSV trials. Has been intubated now for 5 days. 07/11/22: for MRI today. Appreciate renal help, agree with signing off. Attempt daily PSV. Guarded prognosis. 07/10: follow up MRI. Get official EEG read but no status. Continue daily PSV trials. Guarded prognosis 07/09/22: Continue supportive measures. Continue to fix Na, if no improvement in mental state with normal sodium then will pursue MRI. Picc placed today. 07/08/22: No further sedation. 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 Consider neurology consult and may need to obtain MRI. Attempt PSV trials today. needs Picc line placed for [facility] as patient is a difficult stick. Feed patient and monitor lytes. 1. Discontinue sedation 2. Wean FiO2 for sats >88% and PaO2 greater than 60 3. Agree with fluid resuscitation, patient needs free water 4. Will follow up with family to find out exactly what patient mental status was a facility CCT 31 minutes. Subjective Date of service: 08/01/22 Principal diagnosis: Hypernatremia Interval history: No acute events. Objective Vital Signs - 12hr 07/31/22 07/31/22 07/31/22 22:00 23:00 23:22 Temperature Pulse Rate 110 H 100 H 98 H Pulse Rate [ From Monitor] Respiratory 13 10 L 10 L Rate Blood Pressure 125/62 105/60 106/58 O2 Sat by Pulse 100 100 100 Oximetry O2 Sat by Pulse Oximetry [ Assessment] 07/31/22 07/31/22 08/01/22 23:30 23:51 00:00 Temperature 98.2 F Pulse Rate 99 H 99 H Pulse Rate [ 100 H From Monitor] Respiratory 10 L Rate Blood Pressure 105/58 103/56 O2 Sat by Pulse 100 100 Oximetry O2 Sat by Pulse Oximetry [ Assessment] 08/01/22 08/01/22 08/01/22 01:00 02:00 03:00 Temperature Pulse Rate 102 H 102 H 100 H Pulse Rate [ From Monitor] Respiratory 15 14 11 L Rate Blood Pressure 120/65 137/67 134/62 O2 Sat by Pulse 100 100 100 Oximetry O2 Sat by Pulse Oximetry [ Assessment] 08/01/22 08/01/22 08/01/22 04:00 04:29 04:30 Temperature 97.6 F Pulse Rate 102 H 106 H Pulse Rate [ 100 H From Monitor] Respiratory 18 Rate Blood Pressure 117/97 103/57 O2 Sat by Pulse 100 100 Oximetry O2 Sat by Pulse 100 Oximetry [ Assessment] 08/01/22 08/01/22 08/01/22 05:00 06:00 07:00 Temperature Pulse Rate 98 H 100 H 89 Pulse Rate [ From Monitor] Respiratory 12 14 10 L Rate Blood Pressure 130/69 122/59 104/54 O2 Sat by Pulse 100 100 100 Oximetry O2 Sat by Pulse Oximetry [ Assessment] 08/01/22 08/01/22 08/01/22 07:41 07:42 08:00 Temperature 97.9 F Pulse Rate 99 H 97 H Pulse Rate [ 99 H From Monitor] Respiratory 10 L 12 Rate Blood Pressure 123/79 O2 Sat by Pulse 100 100 Oximetry O2 Sat by Pulse Oximetry [ Assessment] 08/01/22 08/01/22 08/01/22 08:15 08:19 08:21 Temperature Pulse Rate 105 H 105 H Pulse Rate [ From Monitor] Respiratory Rate Blood Pressure 136/71 136/71 O2 Sat by Pulse 100 100 Oximetry O2 Sat by Pulse 100 Oximetry [ Assessment] Constitutional: comatose ENT: other (orally intubated) Neck: supple Effort: normal Ascultation: Bilateral: clear Percussion: Bilateral: not dull Cardiovascular: regular rate and rhythm Gastrointestinal: normoactive bowel sounds, soft Extremities: no cyanosis, no edema Neurologic: unable to assess CBC and BMP: 08/01/22 04:58 07/31/22 04:45 ABG, PT/INR, D-dimer: ABG ABG pH 7.503 pH Units (7.350-7.450) H 07/20/22 05:30 ABG pCO2 42.7 mm Hg 07/20/22 05:30 ABG pO2 99.1 mm Hg (80.0-90.0) H 07/20/22 05:30 ABG O2 Saturation 97.8 % (95.0-99.0) 07/20/22 05:30 PT/INR, D-dimer PT 13.0 Sec. (12.2-14.9) 07/30/22 14:15 INR 0.89 (0.87-1.13) 07/30/22 14:15 D-Dimer 925.80 ng/mlDDU (0-234) H 07/12/22 04:00 Abnormal lab findings: Abnormal Labs 07/07/22 07/07/22 07/07/22 03:17 03:38 03:38 WBC RBC 5.43 H Hgb 18.2 H Hct 54.9 H MCV 101 H MCH 34 H RDW Plt Count [address] [place] % (Auto) Seg Neutrophils % Seg Neutrophils # PT 15.0 H APTT 23.0 L D-Dimer ABG pH ABG pO2 ABG HCO3 ABG O2 Saturation ABG Base Excess ABG Hemoglobin Oxyhemoglobin Sodium Potassium Chloride Carbon Dioxide BUN Creatinine Glucose POC Glucose Lactic Acid Uric Acid Calcium Phosphorus Magnesium Ferritin Total Bilirubin AST Lactate Dehydrogenase Total Creatine Kinase C-Reactive Protein Total Protein Albumin TSH Free T3 Index Urine WBC (Auto) 7.0 H Urine Creatinine Salicylates Acetaminophen Valproic Acid SARS-CoV-2 (PCR) 07/07/22 07/07/22 07/07/22 03:38 03:38 03:38 WBC RBC Hgb Hct MCV MCH RDW Plt Count [place] % (Auto) Seg Neutrophils % Seg Neutrophils # PT APTT D-Dimer ABG pH ABG pO2 ABG HCO3 ABG O2 Saturation ABG Base Excess ABG Hemoglobin Oxyhemoglobin Sodium Potassium Chloride Carbon Dioxide BUN Creatinine Glucose POC Glucose Lactic Acid Uric Acid Calcium Phosphorus Magnesium 3.30 H Ferritin Total Bilirubin AST Lactate Dehydrogenase Total Creatine Kinase 1826 H C-Reactive Protein Total Protein Albumin TSH Free T3 Index Urine WBC (Auto) Urine Creatinine Salicylates < 0.3 L Acetaminophen 5.0 L Valproic Acid 7.0 L SARS-CoV-2 (PCR) 07/07/22 07/07/22 07/07/22 04:17 04:17 04:17 WBC RBC Hgb Hct MCV MCH RDW Plt Count [place] % (Auto) Seg Neutrophils % Seg Neutrophils # PT APTT D-Dimer ABG pH ABG pO2 ABG HCO3 ABG O2 Saturation ABG Base Excess ABG Hemoglobin Oxyhemoglobin Sodium 168 H* Potassium 3.2 L Chloride 122.2 H Carbon Dioxide BUN 52 H Creatinine Glucose 158 H POC Glucose Lactic Acid 3.50 H* Uric Acid Calcium 10.9 H Phosphorus Magnesium Ferritin Total Bilirubin 1.40 H AST 47 H Lactate Dehydrogenase Total Creatine Kinase C-Reactive Protein Total Protein Albumin TSH 12.790 H Free T3 Index Urine WBC (Auto) Urine Creatinine Salicylates Acetaminophen Valproic Acid SARS-CoV-2 (PCR) 07/07/22 07/07/22 07/07/22 04:17 07:43 09:35 WBC RBC Hgb Hct MCV MCH RDW Plt Count [place] % (Auto) Seg Neutrophils % Seg Neutrophils # PT APTT D-Dimer ABG pH ABG pO2 377.3 H ABG HCO3 ABG O2 Saturation 99.6 H ABG Base Excess -2.5 L ABG Hemoglobin Oxyhemoglobin Sodium Potassium Chloride Carbon Dioxide BUN Creatinine Glucose POC Glucose Lactic Acid 6.30 H* Uric Acid 13.5 H Calcium Phosphorus Magnesium Ferritin Total Bilirubin AST Lactate Dehydrogenase Total Creatine Kinase C-Reactive Protein Total Protein Albumin TSH Free T3 Index Urine WBC (Auto) Urine Creatinine Salicylates Acetaminophen Valproic Acid SARS-CoV-2 (PCR) 07/07/22 07/07/22 07/07/22 15:00 16:00 16:00 WBC RBC Hgb Hct MCV MCH RDW Plt Count [place] % (Auto) Seg Neutrophils % Seg Neutrophils # PT APTT D-Dimer ABG pH ABG pO2 ABG HCO3 ABG O2 Saturation ABG Base Excess ABG Hemoglobin Oxyhemoglobin Sodium 166 H* Potassium Chloride 124.8 H Carbon Dioxide 20 L BUN 41 H Creatinine Glucose 157 H POC Glucose Lactic Acid 7.00 H* Uric Acid Calcium Phosphorus Magnesium Ferritin Total Bilirubin AST 81 H Lactate Dehydrogenase Total Creatine Kinase C-Reactive Protein Total Protein Albumin TSH Free T3 Index Urine WBC (Auto) Urine Creatinine Salicylates Acetaminophen Valproic Acid SARS-CoV-2 (PCR) Positive A 07/07/22 07/07/22 07/07/22 16:45 23:42 23:42 WBC RBC Hgb Hct MCV MCH RDW Plt Count [place] % (Auto) Seg Neutrophils % Seg Neutrophils # PT APTT D-Dimer ABG pH ABG pO2 ABG HCO3 ABG O2 Saturation ABG Base Excess ABG Hemoglobin Oxyhemoglobin Sodium 165 H* Potassium 3.0 L Chloride 122.8 H Carbon Dioxide BUN 38 H Creatinine Glucose 232 H POC Glucose Lactic Acid 5.60 H* Uric Acid Calcium Phosphorus Magnesium Ferritin Total Bilirubin AST Lactate Dehydrogenase Total Creatine Kinase C-Reactive Protein Total Protein Albumin TSH Free T3 Index Urine WBC (Auto) Urine Creatinine 92.9 H Salicylates Acetaminophen Valproic Acid SARS-CoV-2 (PCR) 07/07/22 07/07/22 07/08/22 Unknown Unknown 05:30 WBC RBC Hgb Hct MCV MCH RDW Plt Count [place] % (Auto) Seg Neutrophils % Seg Neutrophils # PT APTT D-Dimer ABG pH 7.553 H 7.473 H ABG pO2 61.7 L 121.7 H ABG HCO3 ABG O2 Saturation 94.7 L ABG Base Excess 4.3 H ABG Hemoglobin 18.0 H Oxyhemoglobin 93.1 L Sodium 163 H* Potassium 6.3 H* D Chloride 123.7 H Carbon Dioxide BUN 42 H Creatinine Glucose 169 H POC Glucose Lactic Acid Uric Acid Calcium Phosphorus Magnesium Ferritin Total Bilirubin AST Lactate Dehydrogenase Total Creatine Kinase C-Reactive Protein Total Protein Albumin TSH Free T3 Index Urine WBC (Auto) Urine Creatinine Salicylates Acetaminophen Valproic Acid SARS-CoV-2 (PCR) 07/08/22 07/08/22 07/08/22 05:36 11:21 14:54 WBC 11.1 H RBC Hgb Hct MCV 101 H MCH 33 H RDW Plt Count [address] % (Auto) Seg Neutrophils % 82.0 H Seg Neutrophils # 9.1 H PT APTT D-Dimer ABG pH ABG pO2 ABG HCO3 ABG O2 Saturation ABG Base Excess ABG Hemoglobin Oxyhemoglobin Sodium Potassium Chloride Carbon Dioxide BUN Creatinine Glucose POC Glucose 174 H 148 H Lactic Acid Uric Acid Calcium Phosphorus Magnesium Ferritin Total Bilirubin AST Lactate Dehydrogenase Total Creatine Kinase C-Reactive Protein Total Protein Albumin TSH Free T3 Index Urine WBC (Auto) Urine Creatinine Salicylates Acetaminophen Valproic Acid SARS-CoV-2 (PCR) 07/08/22 07/08/22 07/08/22 14:54 14:54 14:54 WBC RBC Hgb Hct MCV MCH RDW Plt Count [place] % (Auto) Seg Neutrophils % Seg Neutrophils # PT APTT D-Dimer ABG pH ABG pO2 ABG HCO3 ABG O2 Saturation ABG Base Excess ABG Hemoglobin Oxyhemoglobin Sodium 163 H* Potassium 2.9 L* Chloride 123.7 H Carbon Dioxide BUN 30 H Creatinine Glucose 161 H POC Glucose Lactic Acid 6.10 H* Uric Acid Calcium Phosphorus Magnesium Ferritin Total Bilirubin AST 69 H Lactate Dehydrogenase Total Creatine Kinase 2335 H C-Reactive Protein Total Protein 5.6 L D Albumin 3.1 L TSH Free T3 Index Urine WBC (Auto) Urine Creatinine Salicylates Acetaminophen Valproic Acid SARS-CoV-2 (PCR) 07/08/22 07/08/22 07/08/22 14:54 14:54 14:54 WBC RBC Hgb Hct MCV MCH RDW Plt Count [place] % (Auto) Seg Neutrophils % Seg Neutrophils # PT APTT D-Dimer 499.72 H ABG pH ABG pO2 ABG HCO3 ABG O2 Saturation ABG Base Excess ABG Hemoglobin Oxyhemoglobin Sodium Potassium Chloride Carbon Dioxide BUN Creatinine Glucose POC Glucose Lactic Acid Uric Acid Calcium Phosphorus Magnesium Ferritin 722.1 H Total Bilirubin AST Lactate Dehydrogenase 455 H Total Creatine Kinase C-Reactive Protein 1.60 H Total Protein Albumin TSH Free T3 Index Urine WBC (Auto) Urine Creatinine Salicylates Acetaminophen Valproic Acid SARS-CoV-2 (PCR) 07/08/22 07/08/22 07/09/22 19:13 19:53 00:09 WBC RBC Hgb Hct MCV MCH RDW Plt Count [place] % (Auto) Seg Neutrophils % Seg Neutrophils # PT APTT D-Dimer ABG pH ABG pO2 ABG HCO3 ABG O2 Saturation ABG Base Excess ABG Hemoglobin Oxyhemoglobin Sodium 160 H Potassium 3.5 L D Chloride 122.0 H Carbon Dioxide 20 L BUN 28 H Creatinine Glucose 151 H POC Glucose 138 H Lactic Acid 5.70 H* Uric Acid Calcium Phosphorus Magnesium Ferritin Total Bilirubin AST Lactate Dehydrogenase Total Creatine Kinase C-Reactive Protein Total Protein Albumin TSH Free T3 Index Urine WBC (Auto) Urine Creatinine Salicylates Acetaminophen Valproic Acid SARS-CoV-2 (PCR) 07/09/22 07/09/22 07/09/22 00:45 03:21 03:21 WBC RBC Hgb Hct MCV MCH RDW Plt Count [place] % (Auto) Seg Neutrophils % Seg Neutrophils # PT APTT D-Dimer ABG pH ABG pO2 ABG HCO3 ABG O2 Saturation ABG Base Excess ABG Hemoglobin Oxyhemoglobin Sodium 158 H 157 H Potassium Chloride 124.2 H 125.0 H Carbon Dioxide 20 L 20 L BUN 25 H 24 H Creatinine Glucose 147 H 169 H POC Glucose Lactic Acid 4.70 H* Uric Acid Calcium Phosphorus Magnesium Ferritin Total Bilirubin AST 81 H Lactate Dehydrogenase Total Creatine Kinase C-Reactive Protein Total Protein 5.7 L Albumin 2.8 L TSH Free T3 Index Urine WBC (Auto) Urine Creatinine Salicylates Acetaminophen Valproic Acid SARS-CoV-2 (PCR) 07/09/22 07/09/22 07/09/22 04:40 05:35 08:14 WBC RBC Hgb Hct MCV 102 H MCH 33 H RDW Plt Count [address] [place] % (Auto) Seg Neutrophils % Seg Neutrophils # PT APTT D-Dimer ABG pH ABG pO2 172.1 H ABG HCO3 ABG O2 Saturation 99.1 H ABG Base Excess -2.8 L ABG Hemoglobin Oxyhemoglobin Sodium Potassium Chloride Carbon Dioxide BUN Creatinine Glucose POC Glucose 108 H Lactic Acid Uric Acid Calcium Phosphorus Magnesium Ferritin Total Bilirubin AST Lactate Dehydrogenase Total Creatine Kinase C-Reactive Protein Total Protein Albumin TSH Free T3 Index Urine WBC (Auto) Urine Creatinine Salicylates Acetaminophen Valproic Acid SARS-CoV-2 (PCR) 07/09/22 07/09/22 07/09/22 11:16 11:27 16:20 WBC RBC Hgb Hct MCV MCH RDW Plt Count [place] % (Auto) Seg Neutrophils % Seg Neutrophils # PT APTT D-Dimer ABG pH ABG pO2 ABG HCO3 ABG O2 Saturation ABG Base Excess ABG Hemoglobin Oxyhemoglobin Sodium 155 H Potassium Chloride 121.3 H Carbon Dioxide BUN 21 H Creatinine Glucose 170 H POC Glucose 173 H 190 H Lactic Acid Uric Acid Calcium Phosphorus Magnesium Ferritin Total Bilirubin AST Lactate Dehydrogenase Total Creatine Kinase C-Reactive Protein Total Protein Albumin TSH Free T3 Index Urine WBC (Auto) Urine Creatinine Salicylates Acetaminophen Valproic Acid SARS-CoV-2 (PCR) 07/09/22 07/10/22 07/10/22 17:16 00:04 04:21 WBC RBC Hgb Hct MCV MCH RDW Plt Count [place] % (Auto) Seg Neutrophils % Seg Neutrophils # PT APTT D-Dimer ABG pH ABG pO2 ABG HCO3 ABG O2 Saturation ABG Base Excess ABG Hemoglobin Oxyhemoglobin Sodium 149 H 150 H Potassium Chloride 115.6 H 115.0 H Carbon Dioxide BUN 18 H Creatinine 0.5 L Glucose 207 H 178 H POC Glucose 180 H Lactic Acid Uric Acid Calcium 7.9 L Phosphorus Magnesium Ferritin Total Bilirubin AST 89 H Lactate Dehydrogenase 431 H Total Creatine Kinase C-Reactive Protein Total Protein 4.9 L Albumin 2.5 L TSH Free T3 Index Urine WBC (Auto) Urine Creatinine Salicylates Acetaminophen Valproic Acid SARS-CoV-2 (PCR) 07/10/22 07/10/22 07/10/22 04:21 04:21 04:21 WBC 11.8 H RBC 3.52 L Hgb Hct MCV 99 H MCH 33 H RDW Plt Count [address] % (Auto) Seg Neutrophils % Seg Neutrophils # PT APTT D-Dimer 585.71 H ABG pH ABG pO2 ABG HCO3 ABG O2 Saturation ABG Base Excess ABG Hemoglobin Oxyhemoglobin Sodium Potassium Chloride Carbon Dioxide BUN Creatinine Glucose POC Glucose Lactic Acid Uric Acid Calcium Phosphorus Magnesium Ferritin 631.3 H Total Bilirubin AST Lactate Dehydrogenase Total Creatine Kinase C-Reactive Protein Total Protein Albumin TSH Free T3 Index Urine WBC (Auto) Urine Creatinine Salicylates Acetaminophen Valproic Acid SARS-CoV-2 (PCR) 07/10/22 07/10/22 07/10/22 04:21 04:55 05:26 WBC RBC Hgb Hct MCV MCH RDW Plt Count [place] % (Auto) Seg Neutrophils % Seg Neutrophils # PT APTT D-Dimer ABG pH ABG pO2 76.8 L ABG HCO3 ABG O2 Saturation ABG Base Excess ABG Hemoglobin 10.4 L Oxyhemoglobin 94.5 L Sodium Potassium Chloride Carbon Dioxide BUN Creatinine Glucose POC Glucose 147 H Lactic Acid 2.50 H* Uric Acid Calcium Phosphorus Magnesium Ferritin Total Bilirubin AST Lactate Dehydrogenase Total Creatine Kinase C-Reactive Protein Total Protein Albumin TSH Free T3 Index Urine WBC (Auto) Urine Creatinine Salicylates Acetaminophen Valproic Acid SARS-CoV-2 (PCR) 07/10/22 07/10/22 07/10/22 08:24 11:31 12:53 WBC RBC Hgb Hct MCV MCH RDW Plt Count [place] % (Auto) Seg Neutrophils % Seg Neutrophils # PT APTT D-Dimer ABG pH ABG pO2 ABG HCO3 ABG O2 Saturation ABG Base Excess ABG Hemoglobin Oxyhemoglobin Sodium Potassium Chloride 110.9 H Carbon Dioxide BUN Creatinine 0.5 L Glucose 200 H POC Glucose 166 H Lactic Acid 2.10 H* Uric Acid Calcium 8.3 L Phosphorus Magnesium Ferritin Total Bilirubin AST Lactate Dehydrogenase Total Creatine Kinase C-Reactive Protein Total Protein Albumin TSH Free T3 Index Urine WBC (Auto) Urine Creatinine Salicylates Acetaminophen Valproic Acid SARS-CoV-2 (PCR) 07/10/22 07/10/22 07/10/22 17:37 18:53 23:30 WBC RBC Hgb Hct MCV MCH RDW Plt Count [place] % (Auto) Seg Neutrophils % Seg Neutrophils # PT APTT D-Dimer ABG pH ABG pO2 ABG HCO3 ABG O2 Saturation ABG Base Excess ABG Hemoglobin Oxyhemoglobin Sodium Potassium Chloride 109.5 H 110.2 H Carbon Dioxide BUN Creatinine 0.5 L 0.5 L Glucose 243 H 208 H POC Glucose 237 H Lactic Acid Uric Acid Calcium 8.1 L 8.1 L Phosphorus Magnesium Ferritin Total Bilirubin AST Lactate Dehydrogenase Total Creatine Kinase C-Reactive Protein Total Protein Albumin TSH Free T3 Index Urine WBC (Auto) Urine Creatinine Salicylates Acetaminophen Valproic Acid SARS-CoV-2 (PCR) 07/10/22 07/11/22 07/11/22 23:57 04:00 04:15 WBC 11.2 H RBC Hgb Hct MCV 99 H MCH RDW Plt Count [address] % (Auto) Seg Neutrophils % Seg Neutrophils # PT APTT D-Dimer ABG pH ABG pO2 107.4 H ABG HCO3 ABG O2 Saturation ABG Base Excess ABG Hemoglobin Oxyhemoglobin Sodium Potassium Chloride Carbon Dioxide BUN Creatinine Glucose POC Glucose 195 H Lactic Acid Uric Acid Calcium Phosphorus Magnesium Ferritin Total Bilirubin AST Lactate Dehydrogenase Total Creatine Kinase C-Reactive Protein Total Protein Albumin TSH Free T3 Index Urine WBC (Auto) Urine Creatinine Salicylates Acetaminophen Valproic Acid SARS-CoV-2 (PCR) 07/11/22 07/11/22 07/11/22 05:40 05:40 06:06 WBC RBC Hgb Hct MCV MCH RDW Plt Count [place] % (Auto) Seg Neutrophils % Seg Neutrophils # PT APTT D-Dimer ABG pH ABG pO2 ABG HCO3 ABG O2 Saturation ABG Base Excess ABG Hemoglobin Oxyhemoglobin Sodium Potassium Chloride 109.8 H Carbon Dioxide BUN Creatinine 0.5 L Glucose 160 H POC Glucose 145 H Lactic Acid Uric Acid Calcium 8.3 L Phosphorus Magnesium Ferritin Total Bilirubin AST Lactate Dehydrogenase Total Creatine Kinase 1745 H C-Reactive Protein Total Protein Albumin TSH Free T3 Index Urine WBC (Auto) Urine Creatinine Salicylates Acetaminophen Valproic Acid SARS-CoV-2 (PCR) 07/11/22 07/11/22 07/11/22 11:55 11:59 17:44 WBC RBC Hgb Hct MCV MCH RDW Plt Count [facility] % (Auto) Seg Neutrophils % Seg Neutrophils # PT APTT D-Dimer ABG pH ABG pO2 ABG HCO3 ABG O2 Saturation ABG Base Excess ABG Hemoglobin Oxyhemoglobin Sodium Potassium Chloride 107.8 H Carbon Dioxide BUN Creatinine 0.5 L Glucose 150 H POC Glucose 150 H 182 H Lactic Acid Uric Acid Calcium 8.2 L Phosphorus Magnesium Ferritin Total Bilirubin AST Lactate Dehydrogenase Total Creatine Kinase C-Reactive Protein Total Protein Albumin TSH Free T3 Index Urine WBC (Auto) Urine Creatinine Salicylates Acetaminophen Valproic Acid SARS-CoV-2 (PCR) 07/11/22 07/12/22 07/12/22 17:50 00:10 00:12 WBC RBC Hgb Hct MCV MCH RDW Plt Count [place] % (Auto) Seg Neutrophils % Seg Neutrophils # PT APTT D-Dimer ABG pH ABG pO2 ABG HCO3 ABG O2 Saturation ABG Base Excess ABG Hemoglobin Oxyhemoglobin Sodium Potassium Chloride 108.4 H Carbon Dioxide BUN Creatinine 0.5 L 0.4 L Glucose 191 H 163 H POC Glucose 154 H Lactic Acid Uric Acid Calcium 8.2 L 7.9 L Phosphorus Magnesium Ferritin Total Bilirubin AST Lactate Dehydrogenase Total Creatine Kinase C-Reactive Protein Total Protein Albumin TSH Free T3 Index Urine WBC (Auto) Urine Creatinine Salicylates Acetaminophen Valproic Acid SARS-CoV-2 (PCR) 07/12/22 07/12/22 07/12/22 04:00 04:00 04:00 WBC RBC Hgb Hct MCV MCH RDW Plt Count [place] % (Auto) Seg Neutrophils % Seg Neutrophils # PT APTT D-Dimer 925.80 H ABG pH ABG pO2 ABG HCO3 ABG O2 Saturation ABG Base Excess ABG Hemoglobin Oxyhemoglobin Sodium Potassium Chloride Carbon Dioxide BUN Creatinine Glucose POC Glucose Lactic Acid Uric Acid Calcium Phosphorus Magnesium Ferritin 519.5 H Total Bilirubin AST Lactate Dehydrogenase 444 H Total Creatine Kinase C-Reactive Protein Total Protein Albumin TSH Free T3 Index Urine WBC (Auto) Urine Creatinine Salicylates Acetaminophen Valproic Acid SARS-CoV-2 (PCR) 07/12/22 07/12/22 07/12/22 04:00 05:00 05:03 WBC 11.7 H RBC 3.33 L Hgb Hct MCV 99 H MCH 33 H RDW Plt Count [address] % (Auto) Seg Neutrophils % Seg Neutrophils # PT APTT D-Dimer ABG pH 7.453 H ABG pO2 107.9 H ABG HCO3 27.9 H ABG O2 Saturation ABG Base Excess 3.7 H ABG Hemoglobin 10.9 L Oxyhemoglobin Sodium Potassium Chloride Carbon Dioxide BUN Creatinine Glucose POC Glucose 174 H Lactic Acid Uric Acid Calcium Phosphorus Magnesium Ferritin Total Bilirubin AST Lactate Dehydrogenase Total Creatine Kinase C-Reactive Protein Total Protein Albumin TSH Free T3 Index Urine WBC (Auto) Urine Creatinine Salicylates Acetaminophen Valproic Acid SARS-CoV-2 (PCR) 07/12/22 07/12/22 07/12/22 12:15 17:18 23:14 WBC RBC Hgb Hct MCV MCH RDW Plt Count [place] % (Auto) Seg Neutrophils % Seg Neutrophils # PT APTT D-Dimer ABG pH ABG pO2 ABG HCO3 ABG O2 Saturation ABG Base Excess ABG Hemoglobin Oxyhemoglobin Sodium Potassium Chloride Carbon Dioxide BUN Creatinine Glucose POC Glucose 154 H 154 H 167 H Lactic Acid Uric Acid Calcium Phosphorus Magnesium Ferritin Total Bilirubin AST Lactate Dehydrogenase Total Creatine Kinase C-Reactive Protein Total Protein Albumin TSH Free T3 Index Urine WBC (Auto) Urine Creatinine Salicylates Acetaminophen Valproic Acid SARS-CoV-2 (PCR) 07/13/22 07/13/22 07/13/22 04:00 04:10 05:14 WBC RBC 3.17 L Hgb Hct MCV 98 H MCH 34 H RDW Plt Count [address] % (Auto) Seg Neutrophils % Seg Neutrophils # PT APTT D-Dimer ABG pH ABG pO2 ABG HCO3 ABG O2 Saturation ABG Base Excess ABG Hemoglobin Oxyhemoglobin Sodium Potassium Chloride Carbon Dioxide BUN Creatinine 0.4 L Glucose 136 H POC Glucose 140 H Lactic Acid Uric Acid Calcium Phosphorus Magnesium Ferritin Total Bilirubin AST Lactate Dehydrogenase Total Creatine Kinase C-Reactive Protein Total Protein Albumin TSH Free T3 Index Urine WBC (Auto) Urine Creatinine Salicylates Acetaminophen Valproic Acid SARS-CoV-2 (PCR) 07/13/22 07/13/22 07/13/22 12:03 14:25 17:19 WBC RBC Hgb Hct MCV MCH RDW Plt Count [place] % (Auto) Seg Neutrophils % Seg Neutrophils # PT APTT D-Dimer ABG pH 7.478 H ABG pO2 118.1 H ABG HCO3 28.2 H ABG O2 Saturation ABG Base Excess 4.5 H ABG Hemoglobin Oxyhemoglobin Sodium Potassium Chloride Carbon Dioxide BUN Creatinine Glucose POC Glucose 193 H 189 H Lactic Acid Uric Acid Calcium Phosphorus Magnesium Ferritin Total Bilirubin AST Lactate Dehydrogenase Total Creatine Kinase C-Reactive Protein Total Protein Albumin TSH Free T3 Index Urine WBC (Auto) Urine Creatinine Salicylates Acetaminophen Valproic Acid SARS-CoV-2 (PCR) 07/13/22 07/13/22 07/14/22 23:52 Unknown 06:18 WBC RBC Hgb Hct MCV MCH RDW Plt Count [place] % (Auto) Seg Neutrophils % Seg Neutrophils # PT APTT D-Dimer ABG pH 7.465 H ABG pO2 128.8 H ABG HCO3 29.0 H ABG O2 Saturation ABG Base Excess 4.9 H ABG Hemoglobin 10.3 L Oxyhemoglobin Sodium Potassium Chloride Carbon Dioxide BUN Creatinine Glucose POC Glucose 174 H 167 H Lactic Acid Uric Acid Calcium Phosphorus Magnesium Ferritin Total Bilirubin AST Lactate Dehydrogenase Total Creatine Kinase C-Reactive Protein Total Protein Albumin TSH Free T3 Index Urine WBC (Auto) Urine Creatinine Salicylates Acetaminophen Valproic Acid SARS-CoV-2 (PCR) 07/14/22 07/14/22 07/15/22 11:34 17:20 00:25 WBC RBC Hgb Hct MCV MCH RDW Plt Count [place] % (Auto) Seg Neutrophils % Seg Neutrophils # PT APTT D-Dimer ABG pH ABG pO2 ABG HCO3 ABG O2 Saturation ABG Base Excess ABG Hemoglobin Oxyhemoglobin Sodium Potassium Chloride Carbon Dioxide BUN Creatinine Glucose POC Glucose 187 H 221 H 172 H Lactic Acid Uric Acid Calcium Phosphorus Magnesium Ferritin Total Bilirubin AST Lactate Dehydrogenase Total Creatine Kinase C-Reactive Protein Total Protein Albumin TSH Free T3 Index Urine WBC (Auto) Urine Creatinine Salicylates Acetaminophen Valproic Acid SARS-CoV-2 (PCR) 09/03/3107/15/22 07/15/22 04:00 04:00 05:49 WBC 11.4 H RBC 3.13 L Hgb Hct MCV 98 H MCH 33 H RDW Plt Count [address] [place] % (Auto) Seg Neutrophils % Seg Neutrophils # PT APTT D-Dimer ABG pH ABG pO2 ABG HCO3 ABG O2 Saturation ABG Base Excess ABG Hemoglobin Oxyhemoglobin Sodium Potassium Chloride Carbon Dioxide 34 H BUN Creatinine 0.4 L Glucose 126 H POC Glucose 143 H Lactic Acid Uric Acid Calcium Phosphorus Magnesium Ferritin Total Bilirubin AST Lactate Dehydrogenase Total Creatine Kinase C-Reactive Protein Total Protein Albumin TSH Free T3 Index Urine WBC (Auto) Urine Creatinine Salicylates Acetaminophen Valproic Acid SARS-CoV-2 (PCR) 07/15/22 07/15/22 07/16/22 11:19 16:16 00:19 WBC RBC Hgb Hct MCV MCH RDW Plt Count [place] % (Auto) Seg Neutrophils % Seg Neutrophils # PT APTT D-Dimer ABG pH ABG pO2 ABG HCO3 ABG O2 Saturation ABG Base Excess ABG Hemoglobin Oxyhemoglobin Sodium Potassium Chloride Carbon Dioxide BUN Creatinine Glucose POC Glucose 158 H 227 H 153 H Lactic Acid Uric Acid Calcium Phosphorus Magnesium Ferritin Total Bilirubin AST Lactate Dehydrogenase Total Creatine Kinase C-Reactive Protein Total Protein Albumin TSH Free T3 Index Urine WBC (Auto) Urine Creatinine Salicylates Acetaminophen Valproic Acid SARS-CoV-2 (PCR) 07/16/22 07/16/22 07/16/22 04:20 04:20 11:28 WBC RBC 3.16 L Hgb Hct MCV 99 H MCH 33 H RDW Plt Count [address] [place] % (Auto) Seg Neutrophils % Seg Neutrophils # PT APTT D-Dimer ABG pH ABG pO2 ABG HCO3 ABG O2 Saturation ABG Base Excess ABG Hemoglobin Oxyhemoglobin Sodium Potassium Chloride Carbon Dioxide 36 H BUN 18 H Creatinine 0.4 L Glucose 139 H POC Glucose 158 H Lactic Acid Uric Acid Calcium Phosphorus Magnesium Ferritin Total Bilirubin AST Lactate Dehydrogenase Total Creatine Kinase C-Reactive Protein Total Protein Albumin TSH Free T3 Index Urine WBC (Auto) Urine Creatinine Salicylates Acetaminophen Valproic Acid SARS-CoV-2 (PCR) 07/16/22 07/17/22 07/17/22 16:30 00:07 05:46 WBC RBC Hgb Hct MCV MCH RDW Plt Count [place] % (Auto) Seg Neutrophils % Seg Neutrophils # PT APTT D-Dimer ABG pH ABG pO2 ABG HCO3 ABG O2 Saturation ABG Base Excess ABG Hemoglobin Oxyhemoglobin Sodium Potassium Chloride Carbon Dioxide BUN Creatinine Glucose POC Glucose 201 H 139 H 123 H Lactic Acid Uric Acid Calcium Phosphorus Magnesium Ferritin Total Bilirubin AST Lactate Dehydrogenase Total Creatine Kinase C-Reactive Protein Total Protein Albumin TSH Free T3 Index Urine WBC (Auto) Urine Creatinine Salicylates Acetaminophen Valproic Acid SARS-CoV-2 (PCR) 07/17/22 07/17/22 07/17/22 13:30 17:51 23:49 WBC RBC Hgb Hct MCV MCH RDW Plt Count [place] % (Auto) Seg Neutrophils % Seg Neutrophils # PT APTT D-Dimer ABG pH ABG pO2 ABG HCO3 ABG O2 Saturation ABG Base Excess ABG Hemoglobin Oxyhemoglobin Sodium Potassium Chloride Carbon Dioxide BUN Creatinine Glucose POC Glucose 185 H 219 H 133 H Lactic Acid Uric Acid Calcium Phosphorus Magnesium Ferritin Total Bilirubin AST Lactate Dehydrogenase Total Creatine Kinase C-Reactive Protein Total Protein Albumin TSH Free T3 Index Urine WBC (Auto) Urine Creatinine Salicylates Acetaminophen Valproic Acid SARS-CoV-2 (PCR) 07/18/22 07/18/22 07/18/22 04:00 04:00 04:00 WBC 12.2 H RBC 3.34 L Hgb Hct MCV 100 H MCH 33 H RDW Plt Count [address] % (Auto) Seg Neutrophils % 77.3 H Seg Neutrophils # 9.4 H PT APTT D-Dimer ABG pH 7.508 H ABG pO2 115.9 H ABG HCO3 33.4 H ABG O2 Saturation ABG Base Excess 9.4 H ABG Hemoglobin 11.7 L Oxyhemoglobin Sodium Potassium Chloride Carbon Dioxide 35 H BUN Creatinine 0.4 L Glucose 130 H POC Glucose Lactic Acid Uric Acid Calcium Phosphorus Magnesium Ferritin Total Bilirubin AST Lactate Dehydrogenase Total Creatine Kinase C-Reactive Protein Total Protein Albumin TSH Free T3 Index Urine WBC (Auto) Urine Creatinine Salicylates Acetaminophen Valproic Acid SARS-CoV-2 (PCR) 07/18/22 07/18/22 07/18/22 04:42 12:31 12:31 WBC RBC Hgb Hct MCV MCH RDW Plt Count [place] % (Auto) Seg Neutrophils % Seg Neutrophils # PT APTT D-Dimer ABG pH ABG pO2 ABG HCO3 ABG O2 Saturation ABG Base Excess ABG Hemoglobin Oxyhemoglobin Sodium Potassium Chloride Carbon Dioxide BUN Creatinine Glucose POC Glucose 134 H Lactic Acid Uric Acid Calcium Phosphorus Magnesium Ferritin Total Bilirubin AST Lactate Dehydrogenase Total Creatine Kinase C-Reactive Protein Total Protein Albumin TSH 9.750 H Free T3 Index 1.7 L Urine WBC (Auto) Urine Creatinine Salicylates Acetaminophen Valproic Acid SARS-CoV-2 (PCR) 07/18/22 07/18/22 07/19/22 12:33 17:39 00:43 WBC RBC Hgb Hct MCV MCH RDW Plt Count [place] % (Auto) Seg Neutrophils % Seg Neutrophils # PT APTT D-Dimer ABG pH ABG pO2 ABG HCO3 ABG O2 Saturation ABG Base Excess ABG Hemoglobin Oxyhemoglobin Sodium Potassium Chloride Carbon Dioxide BUN Creatinine Glucose POC Glucose 172 H 164 H 132 H Lactic Acid Uric Acid Calcium Phosphorus Magnesium Ferritin Total Bilirubin AST Lactate Dehydrogenase Total Creatine Kinase C-Reactive Protein Total Protein Albumin TSH Free T3 Index Urine WBC (Auto) Urine Creatinine Salicylates Acetaminophen Valproic Acid SARS-CoV-2 (PCR) 07/19/22 07/19/22 07/19/22 05:08 12:30 17:42 WBC RBC Hgb Hct MCV MCH RDW Plt Count [place] % (Auto) Seg Neutrophils % Seg Neutrophils # PT APTT D-Dimer ABG pH ABG pO2 ABG HCO3 ABG O2 Saturation ABG Base Excess ABG Hemoglobin Oxyhemoglobin Sodium Potassium Chloride Carbon Dioxide BUN Creatinine Glucose POC Glucose 143 H 159 H 139 H Lactic Acid Uric Acid Calcium Phosphorus Magnesium Ferritin Total Bilirubin AST Lactate Dehydrogenase Total Creatine Kinase C-Reactive Protein Total Protein Albumin TSH Free T3 Index Urine WBC (Auto) Urine Creatinine Salicylates Acetaminophen Valproic Acid SARS-CoV-2 (PCR) 07/19/22 07/20/22 07/20/22 23:26 05:30 06:03 WBC RBC Hgb Hct MCV MCH RDW Plt Count [place] % (Auto) Seg Neutrophils % Seg Neutrophils # PT APTT D-Dimer ABG pH 7.503 H ABG pO2 99.1 H ABG HCO3 32.8 H ABG O2 Saturation ABG Base Excess 8.8 H ABG Hemoglobin 9.7 L Oxyhemoglobin Sodium Potassium Chloride Carbon Dioxide BUN Creatinine Glucose POC Glucose 144 H 146 H Lactic Acid Uric Acid Calcium Phosphorus Magnesium Ferritin Total Bilirubin AST Lactate Dehydrogenase Total Creatine Kinase C-Reactive Protein Total Protein Albumin TSH Free T3 Index Urine WBC (Auto) Urine Creatinine Salicylates Acetaminophen Valproic Acid SARS-CoV-2 (PCR) 0907/20/22 07/20/22 12:15 17:24 23:44 WBC RBC Hgb Hct MCV MCH RDW Plt Count [place] % (Auto) Seg Neutrophils % Seg Neutrophils # PT APTT D-Dimer ABG pH ABG pO2 ABG HCO3 ABG O2 Saturation ABG Base Excess ABG Hemoglobin Oxyhemoglobin Sodium Potassium Chloride Carbon Dioxide BUN Creatinine Glucose POC Glucose 138 H 135 H 131 H Lactic Acid Uric Acid Calcium Phosphorus Magnesium Ferritin Total Bilirubin AST Lactate Dehydrogenase Total Creatine Kinase C-Reactive Protein Total Protein Albumin TSH Free T3 Index Urine WBC (Auto) Urine Creatinine Salicylates Acetaminophen Valproic Acid SARS-CoV-2 (PCR) 07/21/22 07/21/22 07/21/22 04:00 04:00 05:13 WBC RBC 2.92 L Hgb 9.6 L Hct 29.0 L MCV 99 H MCH 33 H RDW 15.6 H Plt Count [address] [place] % (Auto) Seg Neutrophils % Seg Neutrophils # PT APTT D-Dimer ABG pH ABG pO2 ABG HCO3 ABG O2 Saturation ABG Base Excess ABG Hemoglobin Oxyhemoglobin Sodium Potassium Chloride Carbon Dioxide 32 H BUN Creatinine 0.3 L Glucose 133 H POC Glucose 142 H Lactic Acid Uric Acid Calcium 8.3 L Phosphorus Magnesium Ferritin Total Bilirubin AST Lactate Dehydrogenase Total Creatine Kinase C-Reactive Protein Total Protein Albumin TSH Free T3 Index Urine WBC (Auto) Urine Creatinine Salicylates Acetaminophen Valproic Acid SARS-CoV-2 (PCR) 07/21/22 07/21/22 07/21/22 06:16 11:48 16:08 WBC RBC Hgb Hct MCV MCH RDW Plt Count [place] % (Auto) Seg Neutrophils % Seg Neutrophils # PT APTT D-Dimer ABG pH ABG pO2 ABG HCO3 ABG O2 Saturation ABG Base Excess ABG Hemoglobin Oxyhemoglobin Sodium Potassium Chloride Carbon Dioxide BUN Creatinine Glucose POC Glucose 149 H 124 H 139 H Lactic Acid Uric Acid Calcium Phosphorus Magnesium Ferritin Total Bilirubin AST Lactate Dehydrogenase Total Creatine Kinase C-Reactive Protein Total Protein Albumin TSH Free T3 Index Urine WBC (Auto) Urine Creatinine Salicylates Acetaminophen Valproic Acid SARS-CoV-2 (PCR) 07/22/22 07/22/22 07/22/22 00:05 04:00 04:13 WBC RBC 2.90 L Hgb 9.5 L Hct 28.9 L MCV 100 H MCH 33 H RDW 15.[address] [place] % (Auto) 10.0 H Seg Neutrophils % Seg Neutrophils # PT APTT D-Dimer ABG pH ABG pO2 ABG HCO3 ABG O2 Saturation ABG Base Excess ABG Hemoglobin Oxyhemoglobin Sodium Potassium Chloride Carbon Dioxide 31 H BUN Creatinine 0.4 L Glucose 105 H POC Glucose 143 H Lactic Acid Uric Acid Calcium Phosphorus Magnesium Ferritin Total Bilirubin AST Lactate Dehydrogenase Total Creatine Kinase C-Reactive Protein Total Protein Albumin TSH Free T3 Index Urine WBC (Auto) Urine Creatinine Salicylates Acetaminophen Valproic Acid SARS-CoV-2 (PCR) 07/22/22 07/23/22 07/23/22 11:03 04:25 04:25 WBC RBC 2.71 L Hgb 9.1 L Hct 27.0 L MCV 100 H MCH 33 H RDW 15.[address] [place] % (Auto) Seg Neutrophils % Seg Neutrophils # PT APTT D-Dimer ABG pH ABG pO2 ABG HCO3 ABG O2 Saturation ABG Base Excess ABG Hemoglobin Oxyhemoglobin Sodium Potassium Chloride Carbon Dioxide 33 H BUN Creatinine 0.4 L Glucose POC Glucose 111 H Lactic Acid Uric Acid Calcium 8.3 L Phosphorus Magnesium Ferritin Total Bilirubin AST Lactate Dehydrogenase Total Creatine Kinase C-Reactive Protein Total Protein Albumin TSH Free T3 Index Urine WBC (Auto) Urine Creatinine Salicylates Acetaminophen Valproic Acid SARS-CoV-2 (PCR) 07/23/22 07/23/22 07/23/22 06:14 11:09 23:34 WBC RBC Hgb Hct MCV MCH RDW Plt Count [place] % (Auto) Seg Neutrophils % Seg Neutrophils # PT APTT D-Dimer ABG pH ABG pO2 ABG HCO3 ABG O2 Saturation ABG Base Excess ABG Hemoglobin Oxyhemoglobin Sodium Potassium Chloride Carbon Dioxide BUN Creatinine Glucose POC Glucose 106 H 117 H 115 H Lactic Acid Uric Acid Calcium Phosphorus Magnesium Ferritin Total Bilirubin AST Lactate Dehydrogenase Total Creatine Kinase C-Reactive Protein Total Protein Albumin TSH Free T3 Index Urine WBC (Auto) Urine Creatinine Salicylates Acetaminophen Valproic Acid SARS-CoV-2 (PCR) 07/24/22 07/24/22 07/24/22 05:24 11:25 16:52 WBC RBC Hgb Hct MCV MCH RDW Plt Count [place] % (Auto) Seg Neutrophils % Seg Neutrophils # PT APTT D-Dimer ABG pH ABG pO2 ABG HCO3 ABG O2 Saturation ABG Base Excess ABG Hemoglobin Oxyhemoglobin Sodium Potassium Chloride Carbon Dioxide BUN Creatinine Glucose POC Glucose 122 H 139 H 126 H Lactic Acid Uric Acid Calcium Phosphorus Magnesium Ferritin Total Bilirubin AST Lactate Dehydrogenase Total Creatine Kinase C-Reactive Protein Total Protein Albumin TSH Free T3 Index Urine WBC (Auto) Urine Creatinine Salicylates Acetaminophen Valproic Acid SARS-CoV-2 (PCR) 07/25/22 07/25/22 07/25/22 00:10 04:22 04:22 WBC RBC 2.86 L Hgb 9.4 L Hct 28.5 L MCV 100 H MCH 33 H RDW 15.[address] % (Auto) Seg Neutrophils % Seg Neutrophils # PT APTT D-Dimer ABG pH ABG pO2 ABG HCO3 ABG O2 Saturation ABG Base Excess ABG Hemoglobin Oxyhemoglobin Sodium Potassium Chloride Carbon Dioxide 31 H BUN Creatinine 0.3 L Glucose 135 H POC Glucose 131 H Lactic Acid Uric Acid Calcium 8.0 L Phosphorus 2.20 L Magnesium Ferritin Total Bilirubin AST Lactate Dehydrogenase Total Creatine Kinase C-Reactive Protein Total Protein Albumin TSH Free T3 Index Urine WBC (Auto) Urine Creatinine Salicylates Acetaminophen Valproic Acid SARS-CoV-2 (PCR) 07/25/22 07/25/22 07/25/22 05:17 11:49 17:27 WBC RBC Hgb Hct MCV MCH RDW Plt Count [place] % (Auto) Seg Neutrophils % Seg Neutrophils # PT APTT D-Dimer ABG pH ABG pO2 ABG HCO3 ABG O2 Saturation ABG Base Excess ABG Hemoglobin Oxyhemoglobin Sodium Potassium Chloride Carbon Dioxide BUN Creatinine Glucose POC Glucose 155 H 140 H 123 H Lactic Acid Uric Acid Calcium Phosphorus Magnesium Ferritin Total Bilirubin AST Lactate Dehydrogenase Total Creatine Kinase C-Reactive Protein Total Protein Albumin TSH Free T3 Index Urine WBC (Auto) Urine Creatinine Salicylates Acetaminophen Valproic Acid SARS-CoV-2 (PCR) 07/25/22 07/26/22 07/26/22 23:57 06:00 06:08 WBC RBC Hgb Hct MCV MCH RDW Plt Count [place] % (Auto) Seg Neutrophils % Seg Neutrophils # PT APTT D-Dimer ABG pH ABG pO2 ABG HCO3 ABG O2 Saturation ABG Base Excess ABG Hemoglobin Oxyhemoglobin Sodium Potassium 3.5 L Chloride Carbon Dioxide 32 H BUN Creatinine 0.3 L Glucose 116 H POC Glucose 124 H 134 H Lactic Acid Uric Acid Calcium 7.9 L Phosphorus Magnesium Ferritin Total Bilirubin AST Lactate Dehydrogenase Total Creatine Kinase C-Reactive Protein Total Protein Albumin TSH Free T3 Index Urine WBC (Auto) Urine Creatinine Salicylates Acetaminophen Valproic Acid SARS-CoV-2 (PCR) 07/26/22 07/26/22 07/26/22 13:38 17:22 23:22 WBC RBC Hgb Hct MCV MCH RDW Plt Count [place] % (Auto) Seg Neutrophils % Seg Neutrophils # PT APTT D-Dimer ABG pH ABG pO2 ABG HCO3 ABG O2 Saturation ABG Base Excess ABG Hemoglobin Oxyhemoglobin Sodium Potassium Chloride Carbon Dioxide BUN Creatinine Glucose POC Glucose 112 H 123 H 117 H Lactic Acid Uric Acid Calcium Phosphorus Magnesium Ferritin Total Bilirubin AST Lactate Dehydrogenase Total Creatine Kinase C-Reactive Protein Total Protein Albumin TSH Free T3 Index Urine WBC (Auto) Urine Creatinine Salicylates Acetaminophen Valproic Acid SARS-CoV-2 (PCR) 07/26/22 07/27/22 07/27/22 Unknown 05:54 10:00 WBC RBC 2.61 L Hgb 8.8 L Hct 26.2 L MCV 100 H MCH 34 H RDW 15.[address] % (Auto) Seg Neutrophils % Seg Neutrophils # PT APTT D-Dimer ABG pH ABG pO2 ABG HCO3 ABG O2 Saturation ABG Base Excess ABG Hemoglobin Oxyhemoglobin Sodium Potassium Chloride Carbon Dioxide BUN Creatinine 0.3 L Glucose 125 H POC Glucose 124 H Lactic Acid Uric Acid Calcium 8.3 L Phosphorus 1.90 L Magnesium Ferritin Total Bilirubin AST Lactate Dehydrogenase Total Creatine Kinase C-Reactive Protein Total Protein Albumin TSH Free T3 Index Urine WBC (Auto) Urine Creatinine Salicylates Acetaminophen Valproic Acid SARS-CoV-2 (PCR) 07/27/22 07/27/22 07/27/22 11:06 18:32 23:20 WBC RBC Hgb Hct MCV MCH RDW Plt Count [facility] % (Auto) Seg Neutrophils % Seg Neutrophils # PT APTT D-Dimer ABG pH ABG pO2 ABG HCO3 ABG O2 Saturation ABG Base Excess ABG Hemoglobin Oxyhemoglobin Sodium Potassium Chloride Carbon Dioxide BUN Creatinine Glucose POC Glucose 133 H 119 H 110 H Lactic Acid Uric Acid Calcium Phosphorus Magnesium Ferritin Total Bilirubin AST Lactate Dehydrogenase Total Creatine Kinase C-Reactive Protein Total Protein Albumin TSH Free T3 Index Urine WBC (Auto) Urine Creatinine Salicylates Acetaminophen Valproic Acid SARS-CoV-2 (PCR) 07/28/22 07/28/22 07/29/22 05:37 11:13 04:05 WBC RBC 2.64 L Hgb 8.8 L Hct 26.6 L MCV 101 H MCH 33 H RDW 16.[address] % (Auto) Seg Neutrophils % Seg Neutrophils # PT APTT D-Dimer ABG pH ABG pO2 ABG HCO3 ABG O2 Saturation ABG Base Excess ABG Hemoglobin Oxyhemoglobin Sodium Potassium Chloride Carbon Dioxide BUN Creatinine Glucose POC Glucose 127 H 115 H Lactic Acid Uric Acid Calcium Phosphorus Magnesium Ferritin Total Bilirubin AST Lactate Dehydrogenase Total Creatine Kinase C-Reactive Protein Total Protein Albumin TSH Free T3 Index Urine WBC (Auto) Urine Creatinine Salicylates Acetaminophen Valproic Acid SARS-CoV-2 (PCR) 07/29/22 07/29/22 07/29/22 04:05 05:20 11:06 WBC RBC Hgb Hct MCV MCH RDW Plt Count [facility] % (Auto) Seg Neutrophils % Seg Neutrophils # PT APTT D-Dimer ABG pH ABG pO2 ABG HCO3 ABG O2 Saturation ABG Base Excess ABG Hemoglobin Oxyhemoglobin Sodium Potassium Chloride Carbon Dioxide 33 H BUN Creatinine 0.3 L Glucose 115 H POC Glucose 119 H 125 H Lactic Acid Uric Acid Calcium 8.2 L Phosphorus Magnesium Ferritin Total Bilirubin AST Lactate Dehydrogenase Total Creatine Kinase C-Reactive Protein Total Protein Albumin TSH Free T3 Index Urine WBC (Auto) Urine Creatinine Salicylates Acetaminophen Valproic Acid SARS-CoV-2 (PCR) 07/29/22 07/29/22 07/30/22 16:08 23:41 06:03 WBC RBC Hgb Hct MCV MCH RDW Plt Count [place] % (Auto) Seg Neutrophils % Seg Neutrophils # PT APTT D-Dimer ABG pH ABG pO2 ABG HCO3 ABG O2 Saturation ABG Base Excess ABG Hemoglobin Oxyhemoglobin Sodium Potassium Chloride Carbon Dioxide BUN Creatinine Glucose POC Glucose 111 H 120 H 110 H Lactic Acid Uric Acid Calcium Phosphorus Magnesium Ferritin Total Bilirubin AST Lactate Dehydrogenase Total Creatine Kinase C-Reactive Protein Total Protein Albumin TSH Free T3 Index Urine WBC (Auto) Urine Creatinine Salicylates Acetaminophen Valproic Acid SARS-CoV-2 (PCR) 07/30/22 07/30/22 07/30/22 11:18 14:15 14:15 WBC RBC 2.55 L Hgb 8.5 L Hct 25.7 L MCV 101 H MCH 33 H RDW 16.[address] % (Auto) Seg Neutrophils % Seg Neutrophils # PT APTT D-Dimer ABG pH ABG pO2 ABG HCO3 ABG O2 Saturation ABG Base Excess ABG Hemoglobin Oxyhemoglobin Sodium Potassium Chloride Carbon Dioxide BUN Creatinine 0.3 L Glucose POC Glucose 111 H Lactic Acid Uric Acid Calcium Phosphorus Magnesium Ferritin Total Bilirubin AST Lactate Dehydrogenase Total Creatine Kinase C-Reactive Protein Total Protein Albumin TSH Free T3 Index Urine WBC (Auto) Urine Creatinine Salicylates Acetaminophen Valproic Acid SARS-CoV-2 (PCR) 07/30/22 07/31/22 07/31/22 16:30 04:45 04:45 WBC RBC 2.67 L Hgb 8.9 L Hct 26.9 L MCV 101 H MCH 33 H RDW 17.[address] [facility] % (Auto) Seg Neutrophils % Seg Neutrophils # PT APTT D-Dimer ABG pH ABG pO2 ABG HCO3 ABG O2 Saturation ABG Base Excess ABG Hemoglobin Oxyhemoglobin Sodium Potassium Chloride Carbon Dioxide 32 H BUN Creatinine 0.3 L Glucose 108 H POC Glucose 111 H Lactic Acid Uric Acid Calcium Phosphorus Magnesium Ferritin Total Bilirubin AST Lactate Dehydrogenase Total Creatine Kinase C-Reactive Protein Total Protein Albumin TSH Free T3 Index Urine WBC (Auto) Urine Creatinine Salicylates Acetaminophen Valproic Acid SARS-CoV-2 (PCR) 07/31/22 07/31/22 07/31/22 05:21 11:33 17:57 WBC RBC Hgb Hct MCV MCH RDW Plt Count [facility] % (Auto) Seg Neutrophils % Seg Neutrophils # PT APTT D-Dimer ABG pH ABG pO2 ABG HCO3 ABG O2 Saturation ABG Base Excess ABG Hemoglobin Oxyhemoglobin Sodium Potassium Chloride Carbon Dioxide BUN Creatinine Glucose POC Glucose 114 H 112 H 115 H Lactic Acid Uric Acid Calcium Phosphorus Magnesium Ferritin Total Bilirubin AST Lactate Dehydrogenase Total Creatine Kinase C-Reactive Protein Total Protein Albumin TSH Free T3 Index Urine WBC (Auto) Urine Creatinine Salicylates Acetaminophen Valproic Acid SARS-CoV-2 (PCR) 08/01/22 08/01/22 08/01/22 00:24 04:58 06:05 WBC RBC 2.72 L Hgb 9.0 L Hct 27.7 L MCV 102 H MCH 33 H RDW 17.[address] [facility] % (Auto) Seg Neutrophils % Seg Neutrophils # PT APTT D-Dimer ABG pH ABG pO2 ABG HCO3 ABG O2 Saturation ABG Base Excess ABG Hemoglobin Oxyhemoglobin Sodium Potassium Chloride Carbon Dioxide BUN Creatinine Glucose POC Glucose 108 H 121 H Lactic Acid Uric Acid Calcium Phosphorus Magnesium Ferritin Total Bilirubin AST Lactate Dehydrogenase Total Creatine Kinase C-Reactive Protein Total Protein Albumin TSH Free T3 Index Urine WBC (Auto) Urine Creatinine Salicylates Acetaminophen Valproic Acid SARS-CoV-2 (PCR)
--- NOTE | 2022-08-01 15:00 | Progress Note ---
Assessment and Plan Assessment and plan: This is a 76-year-old female with CVA, pulmonary embolism, hypothyroidism and JUJU admitted with electrolyte imbalances, hypoxic respiratory failure and COVID- 19 pneumonia Neuro: Acute metabolic encephalopathy, h/o CVA with hemiplegia, dysphagia, aphasia, dementia -Neurology consulted, appreciate recommendations -Reorientation as needed -Maintain sleep-wake cycle -Resume home Lipitor -As needed analgesia -CT head shows no acute intracranial hemorrhage, multiple chronic appearing infarcts including left MCA distribution, left cerebral hemisphere and within the right basal ganglia -Depakene -EEG compatible with significant diffuse encephalopathy -MRI shows no acute findings, remote infarction of the left frontal lobe and left cerebellum, moderate sequela of chronic microvascular disease Cardiac: h/o HLD -Resume home Lipitor -Blood pressure monitoring per protocol Respiratory: Acute hypoxic respiratory failure, h/o JUJU, pulmonary embolism -CCM consulted, appreciate recommendations -Intubated on 07/07 with a 7.50 ETT at 24 the lips -07/22 s/p Trach/PEG -A.m. vent settings: AC rate 10, tidal and 400, PEEP 6, FiO2 28 -See RT notes for titration -A.m. ABG and CXR noted -VAP bundle -SPO2 monitoring -Eliquis restarted GI: NAD -PPI -07/22 s/p PEG -NTR consulted for tube feedings -BR: Senokot-S : Rhabdomyolysis -Nephrology consulted, appreciate recommendations -Monitor intake and output -Free water flush -Renally dose medications -Avoid nephrotoxic medications -Trend BMP ID: COVID-19 pneumonia, lactic acidosis, Klebsiella pneumonia -Infectious disease consulted, appreciate recommendation -s/p Azithromycin 07/07-07/10, Rocephin -Decadron 10mg for 10 days () -s/p Remdesivir () -CRP 0.3, procalcitonin 0.19 -Contact/droplet precautions discontinued -f/u blood culture -Trend COVID-19 inflammatory markers -Monitor WBC and temperature curve -Prophylactic anticoagulation based on D-dimer per hospital protocol Endo: h/o hypothyroidism -Avoid hypoglycemia -SSI -Accu-Cheks q. 6 -Long-acting insulin, titrate as needed -Resume home Synthroid Heme: Thrombocytopenia (resolved) -Trend CBC -Transfuse hemoglobin less than 7 -SCDs to BLE while in bed The high probability of a clinically significant, sudden or life threatening deterioration of the [multi] system(s) required my full and direct attention, intervention and personal management. The aggregate critical care time was [60] minutes. This time is in addition to time spent performing reported procedures but includes the following: [x] Data Review and interpretation [x] Patient assessment and monitoring of vital signs [x] Documentation [x] Medication orders and management Disposition Plan: icu Total Time Spent with Patient (Minutes): 60 History Interval history: This is a 76-year-old female with CVA resulting hemiplegia, dysphagia, aphasia, dementia, pulm embolism without acute cor pulmonale, hypothyroidism and JUJU who presented to the hospital on 07/07 from her shelter for altered mental s tatus and diminished cognition and possible hypoxia via EMS. In the emergency department patient was intubated due to concern for airway protection. Recommend emergency department showed leukocytosis, hyponatremia with a sodium of 168, hypercalcemia, hypomagnesemia, elevated CK. Patient was admitted to the hospitalist service with acute hypoxic respiratory failure, COVID-19 PUI, hypernatremia, transaminitis, rhabdomyolysis with consults to CCM and nephrology: Hospital course to date: 07/08: Patient noted to be COVID-positive, started on remdesivir, Decadron, ceftriaxone azithromycin and infectious disease was consulted yesterday. This morning patient is on any sedation, PICC line to be placed. RT to attempt PSV. Started on free water flushes and tube feedings. Continues on D5 half-normal saline. 07/09: Patient remains encephalopathic, not on any sedation. Hypernatremia is improving, on FWF Q4hrs and D5w gtt per Nephro. If hypernatremia continue to improve and patient's mentation is unchanged, will get a repeat CT to r/o intracranial abnormalities. Patient remains afebrile, leukocytosis improved, and VSS. Continue current IV abx per ID. Patient failed PSV trial again today, continue PSV trial as tolerated 07/10: Remains stable on the vent, tolerating PSV trial this am. sodium continue to improve but no change in mental status. D/w CCM will get MRI brain to r/o any intracranial abnormalities, EEG also ordered to r/o seizures. Continue FWF and D5w gtt per Nephro. Continue IV steroids and current IV abx per ID. 07/11: Hypernatremia resolved, mentation is unchanged, remains on low vent setting. EEG noted, and MRI brain pending. Will consult Neurology for further recommendations. Continue daily PSV trial as tolerated. 07/12: Appears more awake this morning but still not following any commands. MRI brain with no acute findings and sodium normalized. Awaiting Neuro consult. Continue daily PSV trial as tolerated. Patient's daughter was updated via phone, all questions and concerns were addressed at this time. Medical records request ed from and [facility]. 07/13: DELMI overnight. Mentation is unchanged, remains stable on the vent. Neurology consult pending. Continue vent adjustment per [facility] and daily PSV trial as tolerated. 07/14: Mentation is unchanged, remains afebrile and stable on the vent, VSS. Complete antibiotics course, still on IV steroids X3 more days. ID recommendations noted, remove corbin. Continue daily PSV trial as tolerated. 07/15: DELMI overnight, mentation unchanged, VSS. Patient failed PSV trial this am d ue to apnea. Continue daily PSV trial as tolerated. Possible trach and Peg per [facility]. 07/16: No acute events overnight, attempted PSV again today. [facility] to have family meeting on 07/17 to discuss trach/PEG 07/17: [facility] will have family meeting tomorrow. Failed PSV again. No acute events overnight. Thrombocytopenia continues to improve 07/18: [facility] held a family meeting today and surgery will be consulted for trach/PEG placement. Family stated that patient had not had her levothyroxine for se veral months due to decreased p.o. intake, will send thyroid panel. No acute events reported overnight. Hypotension today and 500 mL normal saline bolus given. Possible trach/peg within 2 days 07/19: No acute events reported overnight. Free T4 normal. Failed PSV 07/20: No acute events reported overnight. Patient taken off isolation per ID. Trach/PEG scheduled for Friday. failed PSV 07/21: No acute events reported overnight. Trach/peg for friday. PSV ongoing 07/22: Remains stable, DELMI overnight. Plan for possible Trac/PEG today by general surgery. Continue dailu PSV trial as tolerated. 9/13: s/p trach and PEG, remains stable on low vent setting, recent CXR is unremarkable. VSS. Resume TF once okayed by General Surgery. Continue daily PSV trial as tolerated. Possible LTAC placement, case management to arrange. 07/24: Remains stable on the vent, tolerating TF via Peg. Continue supportive measures and daily PSV trial. Awaiting placement. 07/25: DELMI overnight. Continue supportive measures and daily PSV trial. PT/OT consulted. Awaiting placement, case management to arrange. 07/26: DELMI overnight. Continue supportive measures and daily PSV trial. Awaiting placement, case management to arrange. 07/27: Patient failed PSV trial this am due to periods of apnea. Continue daily PSV trial as tolerated. Awaiting placement, case management to arrange. 07/28: DELMI overnight. Continue daily PSV trial as tolerated. Awaiting placement, case management to arrange. 07/29: No acute events reported overnight, failed CPAP trial. 07/30: CPAP trial, no acute events reported overnight. Continue supportive care. Awaiting LTAC placement. 07/31: No acute events reported overnight. Failed CPAP trial. 08/01: No acute events reported overnight, continue supportive care. Failed CPAP again. Hospitalist Physical - Constitutional Vitals: Temp Pulse Resp BP Pulse Ox 98 F 94 H 12 110/71 100 08/01/22 11:33 08/01/22 14:00 08/01/22 14:00 08/01/22 14:00 08/01/22 14:00 General appearance: Present: no acute distress - EENT Eyes: Present: PERRL ENT: poor dentition - Neck Neck: Present: normal ROM - Respiratory Respiratory effort: normal Respiratory: bilateral: diminished, rhonchi - Cardiovascular Rhythm: regular Heart Sounds: Present: S1 & S2. Absent: systolic murmur, diastolic murmur - Extremities Extremities: no ischemia, pulses intact, pulses symmetrical, No edema, normal temperature, normal color Peripheral Pulses: within normal limits - Abdominal General gastrointestinal: soft, non-tender, non-distended, normal bowel sounds - Integumentary Integumentary: Present: warm, dry - Psychiatric Psychiatric: other - Neurologic Neurologic: other - Allied Health Allied health notes reviewed: nursing, RT, social work HEART Score - HEART Score Troponin: Troponin T 0.010 ng/mL (0.00-0.029) 07/07/22 04:17 Results - Labs CBC & Chem 7: 08/01/22 04:58 07/31/22 04:45 Labs: Laboratory Last Values WBC 6.1 K/mm3 (4.5-11.0) 08/01/22 04:58 RBC 2.72 M/mm3 (3.65-5.03) L 08/01/22 04:58 Hgb 9.0 gm/dl (10.1-14.3) L 08/01/22 04:58 Hct 27.7 % (30.3-42.9) L 08/01/22 04:58 MCV 102 fl (79-97) H 08/01/22 04:58 MCH 33 pg (28-32) H 08/01/22 04:58 MCHC 33 % (30-34) 08/01/22 04:58 RDW 17.4 % (13.2-15.2) H 08/01/22 04:58 Plt Count 326 K/mm3 (140-440) 08/01/22 04:58 Lymph % (Auto) 33.3 % (13.4-35.0) 07/22/22 04:13 [place] % (Auto) 10.0 % (0.0-7.3) H 07/22/22 04:13 Eos % (Auto) 0.5 % (0.0-4.3) 07/22/22 04:13 Baso % (Auto) 0.1 % (0.0-1.8) 07/22/22 04:13 Lymph # (Auto) 2.1 K/mm3 (1.2-5.4) 07/22/22 04:13 [place] # (Auto) 0.6 K/mm3 (0.0-0.8) 07/22/22 04:13 Eos # (Auto) 0.0 K/mm3 (0.0-0.4) 07/22/22 04:13 Baso # (Auto) 0.0 K/mm3 (0.0-0.1) 07/22/22 04:13 Seg Neutrophils % 56.1 % (40.0-70.0) 07/22/22 04:13 Seg Neutrophils # 3.6 K/mm3 (1.8-7.7) 07/22/22 04:13 PT 13.0 Sec. (12.2-14.9) 07/30/22 14:15 INR 0.89 (0.87-1.13) 07/30/22 14:15 APTT 32.6 Sec. (24.2-36.6) 07/30/22 14:15 D-Dimer 925.80 ng/mlDDU (0-234) H 07/12/22 04:00 ABG pH 7.503 pH Units (7.350-7.450) H 07/20/22 05:30 ABG pCO2 42.7 mm Hg 07/20/22 05:30 ABG pO2 99.1 mm Hg (80.0-90.0) H 07/20/22 05:30 ABG HCO3 32.8 mmol/L (20.0-26.0) H 07/20/22 05:30 ABG O2 Saturation 97.8 % (95.0-99.0) 07/20/22 05:30 ABG O2 Content 13.3 (0.0-44) 07/20/22 05:30 ABG Base Excess 8.8 mmol/L (-2.0-3.0) H 07/20/22 05:30 ABG Hemoglobin 9.7 gm/dl (12.0-16.0) L 07/20/22 05:30 ABG Carboxyhemoglobin 1.3 % (0.0-5.0) 07/20/22 05:30 ABG Methemoglobin 0.6 % (0.0-1.5) 07/20/22 05:30 Oxyhemoglobin 95.9 % (95.0-99.0) 07/20/22 05:30 FiO2 28 % 07/20/22 05:30 Sodium 140 mmol/L (137-145) 07/31/22 04:45 Potassium 4.2 mmol/L (3.6-5.0) 07/31/22 04:45 Chloride 102.5 mmol/L (98-107) 07/31/22 04:45 Carbon Dioxide 32 mmol/L (22-30) H 07/31/22 04:45 Anion Gap 10 mmol/L 07/31/22 04:45 BUN 13 mg/dL (7-17) 07/31/22 04:45 Creatinine 0.3 mg/dL (0.6-1.2) L 07/31/22 04:45 Estimated GFR > 60 ml/min 07/31/22 04:45 BUN/Creatinine Ratio 43 % 07/31/22 04:45 Glucose 108 mg/dL (65-100) H 07/31/22 04:45 POC Glucose 123 mg/dL (70-105) H 08/01/22 11:48 Lactic Acid 2.10 mmol/L (0.7-2.0) H* 07/10/22 08:24 Uric Acid 13.5 mg/dL (3.5-7.6) H 07/07/22 04:17 Calcium 8.9 mg/dL (8.4-10.2) 07/31/22 04:45 Phosphorus 3.00 mg/dL (2.5-4.5) 07/29/22 04:05 Magnesium 1.70 mg/dL (1.7-2.3) 07/29/22 04:05 Ferritin 519.5 ng/mL (10.0-200.0) H 07/12/22 04:00 Total Bilirubin 0.30 mg/dL (0.1-1.2) 07/10/22 04:21 AST 89 units/L (5-40) H 07/10/22 04:21 ALT 53 units/L (7-56) 07/10/22 04:21 Alkaline Phosphatase 83 units/L (35-129) 07/10/22 04:21 Ammonia 32.0 umol/L (25-60) 07/07/22 04:17 Lactate Dehydrogenase 444 units/L (91-180) H 07/12/22 04:00 Total Creatine Kinase 67 units/L (30-135) 08/01/22 04:58 Troponin T 0.010 ng/mL (0.00-0.029) 07/07/22 04:17 C-Reactive Protein 0.30 mg/dL (0.00-1.30) 07/12/22 04:00 Total Protein 4.9 g/dL (6.3-8.2) L 07/10/22 04:21 Albumin 2.5 g/dL (3.9-5) L 07/10/22 04:21 Albumin/Globulin Ratio 1.0 % 07/10/22 04:21 Procalcitonin 0.19 ng/mL (<0.15) 07/08/22 14:54 TSH 9.750 mlU/mL (0.270-4.200) H 07/18/22 12:31 Free T4 0.78 ng/dL (0.76-1.46) 07/18/22 12:31 Thyroxine (T4) 6.2 ug/dL (4.0-12.0) 07/18/22 12:31 Free T3 Index 1.7 pg/mL (2.3-4.2) L 07/18/22 12:31 Total Cortisol 47.9 mcg/dL () 07/07/22 07:43 Urine Color Yellow (Yellow) 07/07/22 03:17 Urine Turbidity Slightly cloudy (Clear) 07/07/22 03:17 Specific [place] (Man) 1.015 (1.003-1.030) 07/07/22 03:17 Ur Protein (Man) 1+ mg/dL (Negative) 07/07/22 03:17 Ur Ketones (Man) Negative (Negative) 07/07/22 03:17 Ur Nitrite (Man) Negative (Negative) 07/07/22 03:17 Urine Bilirubin (Man) Negative (Negative) 07/07/22 03:17 Leukocyte Esterase (Man) Negative (Negative) 07/07/22 03:17 Urine WBC (Auto) 7.0 /HPF (0.0-6.0) H 07/07/22 03:17 Urine RBC (Auto) 1.0 /HPF (0.0-6.0) 07/07/22 03:17 U Epithel Cells (Auto) 4.0 /HPF (0-13.0) 07/07/22 03:17 Urine Bacteria (Auto) 3+ /HPF (Negative) 07/07/22 03:17 Urine RBC (Manual) 3+ (Negative) 07/07/22 03:17 Urine Mucus 3+ /HPF 07/07/22 03:17 Urine Osmolality 744 Mosm/kg 07/07/22 16:45 Urine Creatinine 92.9 mg/dL (0.1-20.0) H 07/07/22 16:45 Urine Sodium 109 mmol/L 07/07/22 16:45 Salicylates < 0.3 mg/dL (2.8-20.0) L 07/07/22 03:38 Urine Opiates Screen Presumptive negative 07/07/22 03:17 Urine Methadone Screen Presumptive negative 07/07/22 03:17 Acetaminophen 5.0 ug/mL (10.0-30.0) L 07/07/22 03:38 Ur Barbiturates Screen Presumptive negative 07/07/22 03:17 Valproic Acid 7.0 ug/mL (50-100) L 07/07/22 03:38 Ur Phencyclidine Scrn Presumptive negative 07/07/22 03:17 Ur Amphetamines Screen Presumptive negative 07/07/22 03:17 U Benzodiazepines Scrn Presumptive negative 07/07/22 03:17 Urine Cocaine Screen Presumptive negative 07/07/22 03:17 U Marijuana (THC) Screen Presumptive negative 07/07/22 03:17 Drugs of Abuse Note Disclamer 07/07/22 03:17 Plasma/Serum Alcohol < 0.01 % (0-0.07) 07/07/22 03:38 SARS-CoV-2 (PCR) Positive (Negative) A 07/07/22 15:00 Corbin/IV: Voiding Method External Female Catheter Active Medications - Current Medications Current Medications: Generic Name Dose Route Start Last Admin Trade Name Freq PRN Reason Stop Dose Admin Acetaminophen 650 mg 07/13/22 12:00 07/25/22 21:28 Acetaminophen 325 Mg/10.15 Ml Oral Liqd Unit Dose FEEDTUBE 650 mg Q6H PRN Administration Pain MILD(1-3)/Fever >100.5/LEE Apixaban 5 mg 07/30/22 22:00 08/01/22 09:11 Apixaban 5 Mg Tab FEEDTUBE 5 mg Q12HR ERROL Administration Protocol Atorvastatin Calcium 80 mg 07/10/22 22:00 07/31/22 22:28 Atorvastatin 40 Mg Tab FEEDTUBE 80 mg QHS ERROL Administration Cholecalciferol 1,000 unit 07/10/22 10:00 08/01/22 09:11 Cholecalciferol (Vit D3) 1000 Unit (25 Mcg) Tab FEEDTUBE 1,000 unit QDAY ERROL Administration Dextrose 50 ml 07/09/22 11:42 Dextrose 50% In Water (25gm) 50 Ml Syringe IV Q30MIN PRN Hypoglycemia Protocol Famotidine 20 mg 07/09/22 22:00 08/01/22 09:11 Famotidine 20 Mg Tab FEEDTUBE 20 mg BID ERROL Administration Hydrophilic Ointment 1 applic 07/07/22 02:48 Lip Therapy Vaseline TP Q2HR PRN Dry Lips Insulin Human Lispro 0 unit 07/09/22 12:00 08/01/22 12:07 Insulin Lispro 100 Unit/Ml SUB-Q Not Given Q6HR ERROL Protocol Levothyroxine Sodium 75 mcg 07/11/22 06:00 08/01/22 06:53 Levothyroxine 75 Mcg Tab FEEDTUBE 75 mcg QAM@0600 ERROL Administration Multi-Ingred Cream/Lotion/Oil/Oint 1 applic 07/07/22 02:48 Mineral Oil/Petrolatum, White Ophth Oint 3.5 Gm OU Q4HR PRN Dry Eye(s) Senna/Docusate Sodium 1 tab 07/07/22 10:00 08/01/22 09:11 Sennosides/Docusate Sodium 8.6/50 Mg Tab FEEDTUBE 1 tab BID ERROL Administration Sodium Chloride 10 ml 07/07/22 13:00 08/01/22 09:11 Sodium Chloride 0.9% 10 Ml Flush Syringe IV 10 ml BID ERROL Administration Sodium Chloride 10 ml 07/07/22 12:09 Sodium Chloride 0.9% 10 Ml Flush Syringe IV PRN PRN LINE FLUSH Valproic Acid 250 mg 07/10/22 22:00 08/01/22 09:10 Valproic Acid 250 Mg/5 Ml Oral Liqd FEEDTUBE 250 mg Q12H ERROL Administration Nutrition/Malnutrition Assess - Dietary Evaluation Nutrition/Malnutrition Findings: Nutrition Notes Start: 07/07/22 13:24 Freq: Status: Active Protocol: Document 07/24/22 09:24 DAREN (Rec: 07/24/22 09:53 DAREN [id number]) Nutrition Notes Initial or Follow up Reassessment Current Diagnosis Respiratory Failure,Stroke, Hyperlipidemia Other Pertinent Diagnosis COVID-19, Metabolic Encephalopathy, Pulmonary Embolism, Dementia. Current Diet TF-Vital AF 1.2 [place] @ 50 ml/hr (from D 07/12). Labs/Tests 07/24: CO2 33, Crea 0.4, Ca 8. 3. Pertinent Medications 07/24: Vit D3, D5w @ 50ml/hr, Levothyroxine, others nutritionally unremarkable. Height 5 ft 6 in Weight 96.2 kg [place] Body Weight (kg) 59.09 BMI 34.2 Weight change and time frame 0.946 Kg body weight gain in 1 week reported. Weight Status Obese Subjective/Other Information RD consult for routine F/U on TF tolerance/continuation assessment. TF continues as prescribed, and well tolerated, according to RN notes. Pt continues on Mechanical Ventilation, O2 saturation @ 98%, according to Physical Assessment History notes. Procedure on 07/22: Percutaneous Tracheostomy and EGD w/PEG-tube placement, well tolerated. according to Operative Report notes. TF resumed on 07/23, after PEG -tube placement, according to Progress notes. Possible discharge to LTAC facility, according to Progress notes. Percent of energy/protein needs met: Prescribed TF-Vital AF 1.2 [place] @ 50 ml/hr provides for energy/protein needs (1,440 Kcal/90 g) during LOS, 101% Kcal, 91% AA. Burn Absent Trauma Absent GI Symptoms Other Difficulty In Swallowing,Chewing Food Allergy No Skin Integrity/Comment Assessment WNL. Current % PO Other Minimum of two criteria Yes Energy Intake (non-severe) <75% Estimated Energy Requirement >7 days Interpretation of Weight Loss (non- 5% in 1 month severe) Fluid Accumulation N/A Protein-Calorie Malnutrition Non-Severe #2 Nutrition Diagnosis Malnutrition Comments: TF continues as prescribed, and well tolerated, according to RN notes. Diagnosis Progress(for reassessment Improved documentation) #1 Nutrition Diagnosis Inadequate oral intake Comments: Procedure on 07/22: Percutaneous Tracheostomy and EGD w/PEG-tube placement, well tolerated. according to Operative Report notes. TF resumed on 07/23, after PEG -tube placement, according to Progress notes. Diagnosis Progress(for reassessment Continues documentation) Is patient on ventilator? Yes Is Patient Ambulatory and/or Out of Bed No REE-([facility]-confined to bed) 1774.548 Kcal/Kg value to use for calculation 15 Approximate Energy Requirements Using 1443 kcal/Kg Calculation Used for Recommendations Kcal/kg Additional Notes Protein: 1.3 g/Kg AdjBW; 101 g /day. Fluids: 1 ml/Kcal, or as per MD. Nutrition Intervention Nutrition Support: Continue TF-Vital AF 1.2 [place] @ 50 ml/hr. Flush: 75 ml water Q 4 hr, or as per MD. Kcal 1,440 Protein (gm) 90 Carbohydrates (gm) 133 Fat (gm) 65 Fluid (mL) 973 Fiber (gm) 6 % RDI: 101% Kcal; 91% AA. Goal #1 Provide at least 75% of energy /protein needs through Enteral Feeding during LOS. Follow-Up By: 08/07/22 Additional Comments Continue monitoring TF tolerance, ventilation status, and BM.
[2022-08-02] MEDS: INSULIN LISPRO 100 UNIT/ML SUB-Q SCH ×4 (02:49→18:41)
[2022-08-02] MEDS: LEVOTHYROXINE 75 MCG TAB FEEDTUBE SCH (05:52)
[2022-08-02] MEDS: SENNOSIDES/DOCUSATE SODIUM 8.6/50 MG TAB FEEDTUBE SCH (09:57)
[2022-08-02] MEDS: CHOLECALCIFEROL (VIT D3) 1000 UNIT (25 mcg) TAB FEEDTUBE SCH (09:57)
[2022-08-02] MEDS: VALPROIC ACID 250 MG/5 ML ORAL LIQD FEEDTUBE SCH (09:57)
[2022-08-02] MEDS: APIXABAN 5 MG TAB FEEDTUBE SCH ×2 (09:57→21:27)
[2022-08-02] MEDS: FAMOTIDINE 20 MG TAB FEEDTUBE SCH ×2 (09:57→21:27)
--- NOTE | 2022-08-02 13:25 | Progress Note ---
Assessment and Plan 76 y/o female with acute respiratory failure secondary to altered mental status, most likely from electrolyte abnormalities seen on chemistry, found to be COVID positive. 08/02/22: Daily PSV Trials 08/01/22: No new pulmonary recs today. I did speak with 2 daughters via the phone on either Friday or Friday to discuss the lack of change in mental state. Per the daughters, /father is telling them he is seeing things that even the daughter who lives here has not seen. They are preparing to speak with their father about her mental state. Continue supportive measures. 07/31/22: Daily PSV trials. PT/OT if possible. Continue tube feeds. 07/30/22: Continue daily PSV trials. 07/29/22: Daily PSV trials. Hold laxatives and stimulants for now. No changes were made in any other meds. Monitor white count and abdominal exam. 07/26/22: Daily PSV trials. Continue tube feeds. Awaiting placement. 07/25/22: Daily PSV trials. Tube feeds going and tolerating. Need to consider at least PT consult to help with movement of lower ext. 07/24/22: Continue tube feeds. Continue daily PSV trials. Await placement, weanable but will need time. 07/23/22: Tube feeds back on. No PSV trials today but will do again tomorrow. Awaiting placement. 07/22/22: Trach and Peg hopefully today. 07/21/22: Did 6 hours of PSV yesterday. Trach and peg tomorrow. Check labs to make sure lytes are stable. 07/20/22: Trach/Peg Friday. Supportive care. 07/19/22: Appreciate Surgery. on Schedule for next week. Free T4 was normal. No current indication for stress dose steroids. Continue supportive care. 07/18/22: Family meeting: Discussed current mental state. Discussed negative work up so far to explain why mental state hasnt improved. Per family here, patient was better than what she is not but I had difficult time placing a time frame as to when that was, maybe May. It does appear that she has had a steady decline mentally and even stopped eating. There were talks prior to her admission here about Peg tube placement. Discussed the idea of trach and peg placement. Also explained to family that trach does not fix any underlying reason as to why the patient's mental state is the way it is. The family wasn't aware that she was brought in for altered mental status, they were told she had bradycardia. Nonetheless, the family as a whole wish to pursue trach and peg placement. Consulted Surgery and hopeful they will see soon. Continue supportive measures and continue daily PSV trials. TSH on admit was 13, will repeat but if T4 is normal, nothing to do. She also is not behaving like myxedema coma. Guarded prognosis. 07/17/22: steroids end today. Continue daily PSV trials. Will speak with family about next steps as today is day 10 of intubation and it does not appear that conventional extubation is in the near future. 07/16/22: Continue daily PSV trials. Will speak with family tomorrow as patient is not improving enough for conventional extubation, especially with frequent apnic events. Most likely patient will need trach and peg. 07/15/22: mental status is still unchanged. Eyes open but not tracking or following commands. Also going apnic on PSV trials. Most likely will need t aaron and peg given mental status has not improved. 07/12/22: Negative MRI for acute infarct. Na is normal. Continue to monitor. Daily PSV trials. Has been intubated now for 5 days. 07/11/22: for MRI today. Appreciate renal help, agree with signing off. Attempt daily PSV. Guarded prognosis. 07/10: follow up MRI. Get official EEG read but no status. Continue daily PSV trials. Guarded prognosis 07/09/22: Continue supportive measures. Continue to fix Na, if no improvement in mental state with normal sodium then will pursue MRI. Picc placed today. 07/08/22: No further sedation. 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 Consider neurology consult and may need to obtain MRI. Attempt PSV trials today. needs Picc line placed for risk intern access as patient is a difficult stick. Feed patient and monitor lytes. 1. Discontinue sedation 2. Wean FiO2 for sats >88% and PaO2 greater than 60 3. Agree with fluid resuscitation, patient needs free water 4. Will follow up with family to find out exactly what patient mental status was a facility CCT 31 minutes. Subjective Date of service: 08/02/22 Principal diagnosis: Hypernatremia Interval history: No acute events. Objective Vital Signs - 12hr 08/02/22 08/02/22 08/02/22 02:00 03:00 04:00 Temperature 98.8 F Pulse Rate 105 H 106 H 109 H Pulse Rate [ 117 H From Monitor] Respiratory 13 12 15 Rate Blood Pressure 112/85 130/80 133/75 O2 Sat by Pulse 100 100 100 Oximetry O2 Sat by Pulse Oximetry [ Assessment] 08/02/22 08/02/22 08/02/22 04:25 04:26 05:00 Temperature Pulse Rate 114 H 108 H Pulse Rate [ From Monitor] Respiratory 14 Rate Blood Pressure 128/79 128/79 O2 Sat by Pulse 100 100 Oximetry O2 Sat by Pulse 100 Oximetry [ Assessment] 08/02/22 08/02/22 08/02/22 06:00 07:00 08:00 Temperature 98.4 F Pulse Rate 90 90 95 H Pulse Rate [ 93 H From Monitor] Respiratory 10 L 10 L 10 L Rate Blood Pressure 132/75 134/75 134/74 O2 Sat by Pulse 100 100 100 Oximetry O2 Sat by Pulse 100 Oximetry [ Assessment] 08/02/22 08/02/22 08/02/22 09:00 10:00 11:00 Temperature Pulse Rate 97 H 103 H 98 H Pulse Rate [ From Monitor] Respiratory 11 L 13 8 L Rate Blood Pressure 124/76 134/79 136/91 O2 Sat by Pulse 100 100 100 Oximetry O2 Sat by Pulse Oximetry [ Assessment] Constitutional: comatose ENT: other (orally intubated) Neck: supple Effort: normal Ascultation: Bilateral: clear Percussion: Bilateral: not dull Cardiovascular: regular rate and rhythm Gastrointestinal: normoactive bowel sounds, soft Extremities: no cyanosis, no edema Neurologic: unable to assess CBC and BMP: 08/01/22 04:58 08/02/22 05:00 ABG, PT/INR, D-dimer: ABG ABG pH 7.503 pH Units (7.350-7.450) H 07/20/22 05:30 ABG pCO2 42.7 mm Hg 07/20/22 05:30 ABG pO2 99.1 mm Hg (80.0-90.0) H 07/20/22 05:30 ABG O2 Saturation 97.8 % (95.0-99.0) 07/20/22 05:30 PT/INR, D-dimer PT 13.0 Sec. (12.2-14.9) 07/30/22 14:15 INR 0.89 (0.87-1.13) 07/30/22 14:15 D-Dimer 925.80 ng/mlDDU (0-234) H 07/12/22 04:00 Abnormal lab findings: Abnormal Labs 07/07/22 07/07/22 07/07/22 03:17 03:38 03:38 WBC RBC 5.43 H Hgb 18.2 H Hct 54.9 H MCV 101 H MCH 34 H RDW Plt Count 104 L [place] % (Auto) Seg Neutrophils % Seg Neutrophils # PT 15.0 H APTT 23.0 L D-Dimer ABG pH ABG pO2 ABG HCO3 ABG O2 Saturation ABG Base Excess ABG Hemoglobin Oxyhemoglobin Sodium Potassium Chloride Carbon Dioxide BUN Creatinine Glucose POC Glucose Lactic Acid Uric Acid Calcium Phosphorus Magnesium Ferritin Total Bilirubin AST Lactate Dehydrogenase Total Creatine Kinase C-Reactive Protein Total Protein Albumin TSH Free T3 Index Urine WBC (Auto) 7.0 H Urine Creatinine Salicylates Acetaminophen Valproic Acid SARS-CoV-2 (PCR) 07/07/22 07/07/22 07/07/22 03:38 03:38 03:38 WBC RBC Hgb Hct MCV MCH RDW Plt Count [place] % (Auto) Seg Neutrophils % Seg Neutrophils # PT APTT D-Dimer ABG pH ABG pO2 ABG HCO3 ABG O2 Saturation ABG Base Excess ABG Hemoglobin Oxyhemoglobin Sodium Potassium Chloride Carbon Dioxide BUN Creatinine Glucose POC Glucose Lactic Acid Uric Acid Calcium Phosphorus Magnesium 3.30 H Ferritin Total Bilirubin AST Lactate Dehydrogenase Total Creatine Kinase 1826 H C-Reactive Protein Total Protein Albumin TSH Free T3 Index Urine WBC (Auto) Urine Creatinine Salicylates < 0.3 L Acetaminophen 5.0 L Valproic Acid 7.0 L SARS-CoV-2 (PCR) 07/07/22 07/07/22 07/07/22 04:17 04:17 04:17 WBC RBC Hgb Hct MCV MCH RDW Plt Count [place] % (Auto) Seg Neutrophils % Seg Neutrophils # PT APTT D-Dimer ABG pH ABG pO2 ABG HCO3 ABG O2 Saturation ABG Base Excess ABG Hemoglobin Oxyhemoglobin Sodium 168 H* Potassium 3.2 L Chloride 122.2 H Carbon Dioxide BUN 52 H Creatinine Glucose 158 H POC Glucose Lactic Acid 3.50 H* Uric Acid Calcium 10.9 H Phosphorus Magnesium Ferritin Total Bilirubin 1.40 H AST 47 H Lactate Dehydrogenase Total Creatine Kinase C-Reactive Protein Total Protein Albumin TSH 12.790 H Free T3 Index Urine WBC (Auto) Urine Creatinine Salicylates Acetaminophen Valproic Acid SARS-CoV-2 (PCR) 07/07/22 07/07/22 07/07/22 04:17 07:43 09:35 WBC RBC Hgb Hct MCV MCH RDW Plt Count [place] % (Auto) Seg Neutrophils % Seg Neutrophils # PT APTT D-Dimer ABG pH ABG pO2 377.3 H ABG HCO3 ABG O2 Saturation 99.6 H ABG Base Excess -2.5 L ABG Hemoglobin Oxyhemoglobin Sodium Potassium Chloride Carbon Dioxide BUN Creatinine Glucose POC Glucose Lactic Acid 6.30 H* Uric Acid 13.5 H Calcium Phosphorus Magnesium Ferritin Total Bilirubin AST Lactate Dehydrogenase Total Creatine Kinase C-Reactive Protein Total Protein Albumin TSH Free T3 Index Urine WBC (Auto) Urine Creatinine Salicylates Acetaminophen Valproic Acid SARS-CoV-2 (PCR) 07/07/22 07/07/22 07/07/22 15:00 16:00 16:00 WBC RBC Hgb Hct MCV MCH RDW Plt Count [place] % (Auto) Seg Neutrophils % Seg Neutrophils # PT APTT D-Dimer ABG pH ABG pO2 ABG HCO3 ABG O2 Saturation ABG Base Excess ABG Hemoglobin Oxyhemoglobin Sodium 166 H* Potassium Chloride 124.8 H Carbon Dioxide 20 L BUN 41 H Creatinine Glucose 157 H POC Glucose Lactic Acid 7.00 H* Uric Acid Calcium Phosphorus Magnesium Ferritin Total Bilirubin AST 81 H Lactate Dehydrogenase Total Creatine Kinase C-Reactive Protein Total Protein Albumin TSH Free T3 Index Urine WBC (Auto) Urine Creatinine Salicylates Acetaminophen Valproic Acid SARS-CoV-2 (PCR) Positive A 07/07/22 07/07/22 07/07/22 16:45 23:42 23:42 WBC RBC Hgb Hct MCV MCH RDW Plt Count [place] % (Auto) Seg Neutrophils % Seg Neutrophils # PT APTT D-Dimer ABG pH ABG pO2 ABG HCO3 ABG O2 Saturation ABG Base Excess ABG Hemoglobin Oxyhemoglobin Sodium 165 H* Potassium 3.0 L Chloride 122.8 H Carbon Dioxide BUN 38 H Creatinine Glucose 232 H POC Glucose Lactic Acid 5.60 H* Uric Acid Calcium Phosphorus Magnesium Ferritin Total Bilirubin AST Lactate Dehydrogenase Total Creatine Kinase C-Reactive Protein Total Protein Albumin TSH Free T3 Index Urine WBC (Auto) Urine Creatinine 92.9 H Salicylates Acetaminophen Valproic Acid SARS-CoV-2 (PCR) 07/07/22 07/07/22 07/08/22 Unknown Unknown 05:30 WBC RBC Hgb Hct MCV MCH RDW Plt Count [place] % (Auto) Seg Neutrophils % Seg Neutrophils # PT APTT D-Dimer ABG pH 7.553 H 7.473 H ABG pO2 61.7 L 121.7 H ABG HCO3 ABG O2 Saturation 94.7 L ABG Base Excess 4.3 H ABG Hemoglobin 18.0 H Oxyhemoglobin 93.1 L Sodium 163 H* Potassium 6.3 H* D Chloride 123.7 H Carbon Dioxide BUN 42 H Creatinine Glucose 169 H POC Glucose Lactic Acid Uric Acid Calcium Phosphorus Magnesium Ferritin Total Bilirubin AST Lactate Dehydrogenase Total Creatine Kinase C-Reactive Protein Total Protein Albumin TSH Free T3 Index Urine WBC (Auto) Urine Creatinine Salicylates Acetaminophen Valproic Acid SARS-CoV-2 (PCR) 07/08/22 07/08/22 07/08/22 05:36 11:21 14:54 WBC 11.1 H RBC Hgb Hct MCV 101 H MCH 33 H RDW Plt Count 69 L [place] % (Auto) Seg Neutrophils % 82.0 H Seg Neutrophils # 9.1 H PT APTT D-Dimer ABG pH ABG pO2 ABG HCO3 ABG O2 Saturation ABG Base Excess ABG Hemoglobin Oxyhemoglobin Sodium Potassium Chloride Carbon Dioxide BUN Creatinine Glucose POC Glucose 174 H 148 H Lactic Acid Uric Acid Calcium Phosphorus Magnesium Ferritin Total Bilirubin AST Lactate Dehydrogenase Total Creatine Kinase C-Reactive Protein Total Protein Albumin TSH Free T3 Index Urine WBC (Auto) Urine Creatinine Salicylates Acetaminophen Valproic Acid SARS-CoV-2 (PCR) 07/08/22 07/08/22 07/08/22 14:54 14:54 14:54 WBC RBC Hgb Hct MCV MCH RDW Plt Count [place] % (Auto) Seg Neutrophils % Seg Neutrophils # PT APTT D-Dimer ABG pH ABG pO2 ABG HCO3 ABG O2 Saturation ABG Base Excess ABG Hemoglobin Oxyhemoglobin Sodium 163 H* Potassium 2.9 L* Chloride 123.7 H Carbon Dioxide BUN 30 H Creatinine Glucose 161 H POC Glucose Lactic Acid 6.10 H* Uric Acid Calcium Phosphorus Magnesium Ferritin Total Bilirubin AST 69 H Lactate Dehydrogenase Total Creatine Kinase 2335 H C-Reactive Protein Total Protein 5.6 L D Albumin 3.1 L TSH Free T3 Index Urine WBC (Auto) Urine Creatinine Salicylates Acetaminophen Valproic Acid SARS-CoV-2 (PCR) 07/08/22 07/08/22 07/08/22 14:54 14:54 14:54 WBC RBC Hgb Hct MCV MCH RDW Plt Count [place] % (Auto) Seg Neutrophils % Seg Neutrophils # PT APTT D-Dimer 499.72 H ABG pH ABG pO2 ABG HCO3 ABG O2 Saturation ABG Base Excess ABG Hemoglobin Oxyhemoglobin Sodium Potassium Chloride Carbon Dioxide BUN Creatinine Glucose POC Glucose Lactic Acid Uric Acid Calcium Phosphorus Magnesium Ferritin 722.1 H Total Bilirubin AST Lactate Dehydrogenase 455 H Total Creatine Kinase C-Reactive Protein 1.60 H Total Protein Albumin TSH Free T3 Index Urine WBC (Auto) Urine Creatinine Salicylates Acetaminophen Valproic Acid SARS-CoV-2 (PCR) 07/08/22 07/08/22 07/09/22 19:13 19:53 00:09 WBC RBC Hgb Hct MCV MCH RDW Plt Count [place] % (Auto) Seg Neutrophils % Seg Neutrophils # PT APTT D-Dimer ABG pH ABG pO2 ABG HCO3 ABG O2 Saturation ABG Base Excess ABG Hemoglobin Oxyhemoglobin Sodium 160 H Potassium 3.5 L D Chloride 122.0 H Carbon Dioxide 20 L BUN 28 H Creatinine Glucose 151 H POC Glucose 138 H Lactic Acid 5.70 H* Uric Acid Calcium Phosphorus Magnesium Ferritin Total Bilirubin AST Lactate Dehydrogenase Total Creatine Kinase C-Reactive Protein Total Protein Albumin TSH Free T3 Index Urine WBC (Auto) Urine Creatinine Salicylates Acetaminophen Valproic Acid SARS-CoV-2 (PCR) 07/09/22 07/09/22 07/09/22 00:45 03:21 03:21 WBC RBC Hgb Hct MCV MCH RDW Plt Count [place] % (Auto) Seg Neutrophils % Seg Neutrophils # PT APTT D-Dimer ABG pH ABG pO2 ABG HCO3 ABG O2 Saturation ABG Base Excess ABG Hemoglobin Oxyhemoglobin Sodium 158 H 157 H Potassium Chloride 124.2 H 125.0 H Carbon Dioxide 20 L 20 L BUN 25 H 24 H Creatinine Glucose 147 H 169 H POC Glucose Lactic Acid 4.70 H* Uric Acid Calcium Phosphorus Magnesium Ferritin Total Bilirubin AST 81 H Lactate Dehydrogenase Total Creatine Kinase C-Reactive Protein Total Protein 5.7 L Albumin 2.8 L TSH Free T3 Index Urine WBC (Auto) Urine Creatinine Salicylates Acetaminophen Valproic Acid SARS-CoV-2 (PCR) 07/09/22 07/09/22 07/09/22 04:40 05:35 08:14 WBC RBC Hgb Hct MCV 102 H MCH 33 H RDW Plt Count 74 L [place] % (Auto) Seg Neutrophils % Seg Neutrophils # PT APTT D-Dimer ABG pH ABG pO2 172.1 H ABG HCO3 ABG O2 Saturation 99.1 H ABG Base Excess -2.8 L ABG Hemoglobin Oxyhemoglobin Sodium Potassium Chloride Carbon Dioxide BUN Creatinine Glucose POC Glucose 108 H Lactic Acid Uric Acid Calcium Phosphorus Magnesium Ferritin Total Bilirubin AST Lactate Dehydrogenase Total Creatine Kinase C-Reactive Protein Total Protein Albumin TSH Free T3 Index Urine WBC (Auto) Urine Creatinine Salicylates Acetaminophen Valproic Acid SARS-CoV-2 (PCR) 07/09/22 07/09/22 07/09/22 11:16 11:27 16:20 WBC RBC Hgb Hct MCV MCH RDW Plt Count [place] % (Auto) Seg Neutrophils % Seg Neutrophils # PT APTT D-Dimer ABG pH ABG pO2 ABG HCO3 ABG O2 Saturation ABG Base Excess ABG Hemoglobin Oxyhemoglobin Sodium 155 H Potassium Chloride 121.3 H Carbon Dioxide BUN 21 H Creatinine Glucose 170 H POC Glucose 173 H 190 H Lactic Acid Uric Acid Calcium Phosphorus Magnesium Ferritin Total Bilirubin AST Lactate Dehydrogenase Total Creatine Kinase C-Reactive Protein Total Protein Albumin TSH Free T3 Index Urine WBC (Auto) Urine Creatinine Salicylates Acetaminophen Valproic Acid SARS-CoV-2 (PCR) 07/09/22 07/10/22 07/10/22 17:16 00:04 04:21 WBC RBC Hgb Hct MCV MCH RDW Plt Count [place] % (Auto) Seg Neutrophils % Seg Neutrophils # PT APTT D-Dimer ABG pH ABG pO2 ABG HCO3 ABG O2 Saturation ABG Base Excess ABG Hemoglobin Oxyhemoglobin Sodium 149 H 150 H Potassium Chloride 115.6 H 115.0 H Carbon Dioxide BUN 18 H Creatinine 0.5 L Glucose 207 H 178 H POC Glucose 180 H Lactic Acid Uric Acid Calcium 7.9 L Phosphorus Magnesium Ferritin Total Bilirubin AST 89 H Lactate Dehydrogenase 431 H Total Creatine Kinase C-Reactive Protein Total Protein 4.9 L Albumin 2.5 L TSH Free T3 Index Urine WBC (Auto) Urine Creatinine Salicylates Acetaminophen Valproic Acid SARS-CoV-2 (PCR) 07/10/22 07/10/22 07/10/22 04:21 04:21 04:21 WBC 11.8 H RBC 3.52 L Hgb Hct MCV 99 H MCH 33 H RDW Plt Count 67 L [place] % (Auto) Seg Neutrophils % Seg Neutrophils # PT APTT D-Dimer 585.71 H ABG pH ABG pO2 ABG HCO3 ABG O2 Saturation ABG Base Excess ABG Hemoglobin Oxyhemoglobin Sodium Potassium Chloride Carbon Dioxide BUN Creatinine Glucose POC Glucose Lactic Acid Uric Acid Calcium Phosphorus Magnesium Ferritin 631.3 H Total Bilirubin AST Lactate Dehydrogenase Total Creatine Kinase C-Reactive Protein Total Protein Albumin TSH Free T3 Index Urine WBC (Auto) Urine Creatinine Salicylates Acetaminophen Valproic Acid SARS-CoV-2 (PCR) 07/10/22 07/10/22 07/10/22 04:21 04:55 05:26 WBC RBC Hgb Hct MCV MCH RDW Plt Count [place] % (Auto) Seg Neutrophils % Seg Neutrophils # PT APTT D-Dimer ABG pH ABG pO2 76.8 L ABG HCO3 ABG O2 Saturation ABG Base Excess ABG Hemoglobin 10.4 L Oxyhemoglobin 94.5 L Sodium Potassium Chloride Carbon Dioxide BUN Creatinine Glucose POC Glucose 147 H Lactic Acid 2.50 H* Uric Acid Calcium Phosphorus Magnesium Ferritin Total Bilirubin AST Lactate Dehydrogenase Total Creatine Kinase C-Reactive Protein Total Protein Albumin TSH Free T3 Index Urine WBC (Auto) Urine Creatinine Salicylates Acetaminophen Valproic Acid SARS-CoV-2 (PCR) 07/10/22 07/10/22 07/10/22 08:24 11:31 12:53 WBC RBC Hgb Hct MCV MCH RDW Plt Count [place] % (Auto) Seg Neutrophils % Seg Neutrophils # PT APTT D-Dimer ABG pH ABG pO2 ABG HCO3 ABG O2 Saturation ABG Base Excess ABG Hemoglobin Oxyhemoglobin Sodium Potassium Chloride 110.9 H Carbon Dioxide BUN Creatinine 0.5 L Glucose 200 H POC Glucose 166 H Lactic Acid 2.10 H* Uric Acid Calcium 8.3 L Phosphorus Magnesium Ferritin Total Bilirubin AST Lactate Dehydrogenase Total Creatine Kinase C-Reactive Protein Total Protein Albumin TSH Free T3 Index Urine WBC (Auto) Urine Creatinine Salicylates Acetaminophen Valproic Acid SARS-CoV-2 (PCR) 07/10/22 07/10/22 07/10/22 17:37 18:53 23:30 WBC RBC Hgb Hct MCV MCH RDW Plt Count [place] % (Auto) Seg Neutrophils % Seg Neutrophils # PT APTT D-Dimer ABG pH ABG pO2 ABG HCO3 ABG O2 Saturation ABG Base Excess ABG Hemoglobin Oxyhemoglobin Sodium Potassium Chloride 109.5 H 110.2 H Carbon Dioxide BUN Creatinine 0.5 L 0.5 L Glucose 243 H 208 H POC Glucose 237 H Lactic Acid Uric Acid Calcium 8.1 L 8.1 L Phosphorus Magnesium Ferritin Total Bilirubin AST Lactate Dehydrogenase Total Creatine Kinase C-Reactive Protein Total Protein Albumin TSH Free T3 Index Urine WBC (Auto) Urine Creatinine Salicylates Acetaminophen Valproic Acid SARS-CoV-2 (PCR) 07/10/22 07/11/22 07/11/22 23:57 04:00 04:15 WBC 11.2 H RBC Hgb Hct MCV 99 H MCH RDW Plt Count 73 L [place] % (Auto) Seg Neutrophils % Seg Neutrophils # PT APTT D-Dimer ABG pH ABG pO2 107.4 H ABG HCO3 ABG O2 Saturation ABG Base Excess ABG Hemoglobin Oxyhemoglobin Sodium Potassium Chloride Carbon Dioxide BUN Creatinine Glucose POC Glucose 195 H Lactic Acid Uric Acid Calcium Phosphorus Magnesium Ferritin Total Bilirubin AST Lactate Dehydrogenase Total Creatine Kinase C-Reactive Protein Total Protein Albumin TSH Free T3 Index Urine WBC (Auto) Urine Creatinine Salicylates Acetaminophen Valproic Acid SARS-CoV-2 (PCR) 07/11/22 07/11/22 07/11/22 05:40 05:40 06:06 WBC RBC Hgb Hct MCV MCH RDW Plt Count [place] % (Auto) Seg Neutrophils % Seg Neutrophils # PT APTT D-Dimer ABG pH ABG pO2 ABG HCO3 ABG O2 Saturation ABG Base Excess ABG Hemoglobin Oxyhemoglobin Sodium Potassium Chloride 109.8 H Carbon Dioxide BUN Creatinine 0.5 L Glucose 160 H POC Glucose 145 H Lactic Acid Uric Acid Calcium 8.3 L Phosphorus Magnesium Ferritin Total Bilirubin AST Lactate Dehydrogenase Total Creatine Kinase 1745 H C-Reactive Protein Total Protein Albumin TSH Free T3 Index Urine WBC (Auto) Urine Creatinine Salicylates Acetaminophen Valproic Acid SARS-CoV-2 (PCR) 07/11/22 07/11/22 07/11/22 11:55 11:59 17:44 WBC RBC Hgb Hct MCV MCH RDW Plt Count [place] % (Auto) Seg Neutrophils % Seg Neutrophils # PT APTT D-Dimer ABG pH ABG pO2 ABG HCO3 ABG O2 Saturation ABG Base Excess ABG Hemoglobin Oxyhemoglobin Sodium Potassium Chloride 107.8 H Carbon Dioxide BUN Creatinine 0.5 L Glucose 150 H POC Glucose 150 H 182 H Lactic Acid Uric Acid Calcium 8.2 L Phosphorus Magnesium Ferritin Total Bilirubin AST Lactate Dehydrogenase Total Creatine Kinase C-Reactive Protein Total Protein Albumin TSH Free T3 Index Urine WBC (Auto) Urine Creatinine Salicylates Acetaminophen Valproic Acid SARS-CoV-2 (PCR) 07/11/22 07/12/22 07/12/22 17:50 00:10 00:12 WBC RBC Hgb Hct MCV MCH RDW Plt Count [place] % (Auto) Seg Neutrophils % Seg Neutrophils # PT APTT D-Dimer ABG pH ABG pO2 ABG HCO3 ABG O2 Saturation ABG Base Excess ABG Hemoglobin Oxyhemoglobin Sodium Potassium Chloride 108.4 H Carbon Dioxide BUN Creatinine 0.5 L 0.4 L Glucose 191 H 163 H POC Glucose 154 H Lactic Acid Uric Acid Calcium 8.2 L 7.9 L Phosphorus Magnesium Ferritin Total Bilirubin AST Lactate Dehydrogenase Total Creatine Kinase C-Reactive Protein Total Protein Albumin TSH Free T3 Index Urine WBC (Auto) Urine Creatinine Salicylates Acetaminophen Valproic Acid SARS-CoV-2 (PCR) 07/12/22 07/12/22 07/12/22 04:00 04:00 04:00 WBC RBC Hgb Hct MCV MCH RDW Plt Count [place] % (Auto) Seg Neutrophils % Seg Neutrophils # PT APTT D-Dimer 925.80 H ABG pH ABG pO2 ABG HCO3 ABG O2 Saturation ABG Base Excess ABG Hemoglobin Oxyhemoglobin Sodium Potassium Chloride Carbon Dioxide BUN Creatinine Glucose POC Glucose Lactic Acid Uric Acid Calcium Phosphorus Magnesium Ferritin 519.5 H Total Bilirubin AST Lactate Dehydrogenase 444 H Total Creatine Kinase C-Reactive Protein Total Protein Albumin TSH Free T3 Index Urine WBC (Auto) Urine Creatinine Salicylates Acetaminophen Valproic Acid SARS-CoV-2 (PCR) 07/12/22 07/12/22 07/12/22 04:00 05:00 05:03 WBC 11.7 H RBC 3.33 L Hgb Hct MCV 99 H MCH 33 H RDW Plt Count 68 L [place] % (Auto) Seg Neutrophils % Seg Neutrophils # PT APTT D-Dimer ABG pH 7.453 H ABG pO2 107.9 H ABG HCO3 27.9 H ABG O2 Saturation ABG Base Excess 3.7 H ABG Hemoglobin 10.9 L Oxyhemoglobin Sodium Potassium Chloride Carbon Dioxide BUN Creatinine Glucose POC Glucose 174 H Lactic Acid Uric Acid Calcium Phosphorus Magnesium Ferritin Total Bilirubin AST Lactate Dehydrogenase Total Creatine Kinase C-Reactive Protein Total Protein Albumin TSH Free T3 Index Urine WBC (Auto) Urine Creatinine Salicylates Acetaminophen Valproic Acid SARS-CoV-2 (PCR) 07/12/22 07/12/22 07/12/22 12:15 17:18 23:14 WBC RBC Hgb Hct MCV MCH RDW Plt Count [place] % (Auto) Seg Neutrophils % Seg Neutrophils # PT APTT D-Dimer ABG pH ABG pO2 ABG HCO3 ABG O2 Saturation ABG Base Excess ABG Hemoglobin Oxyhemoglobin Sodium Potassium Chloride Carbon Dioxide BUN Creatinine Glucose POC Glucose 154 H 154 H 167 H Lactic Acid Uric Acid Calcium Phosphorus Magnesium Ferritin Total Bilirubin AST Lactate Dehydrogenase Total Creatine Kinase C-Reactive Protein Total Protein Albumin TSH Free T3 Index Urine WBC (Auto) Urine Creatinine Salicylates Acetaminophen Valproic Acid SARS-CoV-2 (PCR) 07/13/22 07/13/22 07/13/22 04:00 04:10 05:14 WBC RBC 3.17 L Hgb Hct MCV 98 H MCH 34 H RDW Plt Count 75 L [place] % (Auto) Seg Neutrophils % Seg Neutrophils # PT APTT D-Dimer ABG pH ABG pO2 ABG HCO3 ABG O2 Saturation ABG Base Excess ABG Hemoglobin Oxyhemoglobin Sodium Potassium Chloride Carbon Dioxide BUN Creatinine 0.4 L Glucose 136 H POC Glucose 140 H Lactic Acid Uric Acid Calcium Phosphorus Magnesium Ferritin Total Bilirubin AST Lactate Dehydrogenase Total Creatine Kinase C-Reactive Protein Total Protein Albumin TSH Free T3 Index Urine WBC (Auto) Urine Creatinine Salicylates Acetaminophen Valproic Acid SARS-CoV-2 (PCR) 07/13/22 07/13/22 07/13/22 12:03 14:25 17:19 WBC RBC Hgb Hct MCV MCH RDW Plt Count [place] % (Auto) Seg Neutrophils % Seg Neutrophils # PT APTT D-Dimer ABG pH 7.478 H ABG pO2 118.1 H ABG HCO3 28.2 H ABG O2 Saturation ABG Base Excess 4.5 H ABG Hemoglobin Oxyhemoglobin Sodium Potassium Chloride Carbon Dioxide BUN Creatinine Glucose POC Glucose 193 H 189 H Lactic Acid Uric Acid Calcium Phosphorus Magnesium Ferritin Total Bilirubin AST Lactate Dehydrogenase Total Creatine Kinase C-Reactive Protein Total Protein Albumin TSH Free T3 Index Urine WBC (Auto) Urine Creatinine Salicylates Acetaminophen Valproic Acid SARS-CoV-2 (PCR) 07/13/22 07/13/22 07/14/22 23:52 Unknown 06:18 WBC RBC Hgb Hct MCV MCH RDW Plt Count [place] % (Auto) Seg Neutrophils % Seg Neutrophils # PT APTT D-Dimer ABG pH 7.465 H ABG pO2 128.8 H ABG HCO3 29.0 H ABG O2 Saturation ABG Base Excess 4.9 H ABG Hemoglobin 10.3 L Oxyhemoglobin Sodium Potassium Chloride Carbon Dioxide BUN Creatinine Glucose POC Glucose 174 H 167 H Lactic Acid Uric Acid Calcium Phosphorus Magnesium Ferritin Total Bilirubin AST Lactate Dehydrogenase Total Creatine Kinase C-Reactive Protein Total Protein Albumin TSH Free T3 Index Urine WBC (Auto) Urine Creatinine Salicylates Acetaminophen Valproic Acid SARS-CoV-2 (PCR) 07/14/22 07/14/22 07/15/22 11:34 17:20 00:25 WBC RBC Hgb Hct MCV MCH RDW Plt Count [place] % (Auto) Seg Neutrophils % Seg Neutrophils # PT APTT D-Dimer ABG pH ABG pO2 ABG HCO3 ABG O2 Saturation ABG Base Excess ABG Hemoglobin Oxyhemoglobin Sodium Potassium Chloride Carbon Dioxide BUN Creatinine Glucose POC Glucose 187 H 221 H 172 H Lactic Acid Uric Acid Calcium Phosphorus Magnesium Ferritin Total Bilirubin AST Lactate Dehydrogenase Total Creatine Kinase C-Reactive Protein Total Protein Albumin TSH Free T3 Index Urine WBC (Auto) Urine Creatinine Salicylates Acetaminophen Valproic Acid SARS-CoV-2 (PCR) 07/15/22 07/15/22 07/15/22 04:00 04:00 05:49 WBC 11.4 H RBC 3.13 L Hgb Hct MCV 98 H MCH 33 H RDW Plt Count 98 L [place] % (Auto) Seg Neutrophils % Seg Neutrophils # PT APTT D-Dimer ABG pH ABG pO2 ABG HCO3 ABG O2 Saturation ABG Base Excess ABG Hemoglobin Oxyhemoglobin Sodium Potassium Chloride Carbon Dioxide 34 H BUN Creatinine 0.4 L Glucose 126 H POC Glucose 143 H Lactic Acid Uric Acid Calcium Phosphorus Magnesium Ferritin Total Bilirubin AST Lactate Dehydrogenase Total Creatine Kinase C-Reactive Protein Total Protein Albumin TSH Free T3 Index Urine WBC (Auto) Urine Creatinine Salicylates Acetaminophen Valproic Acid SARS-CoV-2 (PCR) 07/15/22 07/15/22 07/16/22 11:19 16:16 00:19 WBC RBC Hgb Hct MCV MCH RDW Plt Count [place] % (Auto) Seg Neutrophils % Seg Neutrophils # PT APTT D-Dimer ABG pH ABG pO2 ABG HCO3 ABG O2 Saturation ABG Base Excess ABG Hemoglobin Oxyhemoglobin Sodium Potassium Chloride Carbon Dioxide BUN Creatinine Glucose POC Glucose 158 H 227 H 153 H Lactic Acid Uric Acid Calcium Phosphorus Magnesium Ferritin Total Bilirubin AST Lactate Dehydrogenase Total Creatine Kinase C-Reactive Protein Total Protein Albumin TSH Free T3 Index Urine WBC (Auto) Urine Creatinine Salicylates Acetaminophen Valproic Acid SARS-CoV-2 (PCR) 07/16/22 07/16/22 07/16/22 04:20 04:20 11:28 WBC RBC 3.16 L Hgb Hct MCV 99 H MCH 33 H RDW Plt Count 101 L [place] % (Auto) Seg Neutrophils % Seg Neutrophils # PT APTT D-Dimer ABG pH ABG pO2 ABG HCO3 ABG O2 Saturation ABG Base Excess ABG Hemoglobin Oxyhemoglobin Sodium Potassium Chloride Carbon Dioxide 36 H BUN 18 H Creatinine 0.4 L Glucose 139 H POC Glucose 158 H Lactic Acid Uric Acid Calcium Phosphorus Magnesium Ferritin Total Bilirubin AST Lactate Dehydrogenase Total Creatine Kinase C-Reactive Protein Total Protein Albumin TSH Free T3 Index Urine WBC (Auto) Urine Creatinine Salicylates Acetaminophen Valproic Acid SARS-CoV-2 (PCR) 07/16/22 07/17/22 07/17/22 16:30 00:07 05:46 WBC RBC Hgb Hct MCV MCH RDW Plt Count [place] % (Auto) Seg Neutrophils % Seg Neutrophils # PT APTT D-Dimer ABG pH ABG pO2 ABG HCO3 ABG O2 Saturation ABG Base Excess ABG Hemoglobin Oxyhemoglobin Sodium Potassium Chloride Carbon Dioxide BUN Creatinine Glucose POC Glucose 201 H 139 H 123 H Lactic Acid Uric Acid Calcium Phosphorus Magnesium Ferritin Total Bilirubin AST Lactate Dehydrogenase Total Creatine Kinase C-Reactive Protein Total Protein Albumin TSH Free T3 Index Urine WBC (Auto) Urine Creatinine Salicylates Acetaminophen Valproic Acid SARS-CoV-2 (PCR) 07/17/22 07/17/22 07/17/22 13:30 17:51 23:49 WBC RBC Hgb Hct MCV MCH RDW Plt Count [place] % (Auto) Seg Neutrophils % Seg Neutrophils # PT APTT D-Dimer ABG pH ABG pO2 ABG HCO3 ABG O2 Saturation ABG Base Excess ABG Hemoglobin Oxyhemoglobin Sodium Potassium Chloride Carbon Dioxide BUN Creatinine Glucose POC Glucose 185 H 219 H 133 H Lactic Acid Uric Acid Calcium Phosphorus Magnesium Ferritin Total Bilirubin AST Lactate Dehydrogenase Total Creatine Kinase C-Reactive Protein Total Protein Albumin TSH Free T3 Index Urine WBC (Auto) Urine Creatinine Salicylates Acetaminophen Valproic Acid SARS-CoV-2 (PCR) 07/18/22 07/18/22 07/18/22 04:00 04:00 04:00 WBC 12.2 H RBC 3.34 L Hgb Hct MCV 100 H MCH 33 H RDW Plt Count 113 L [place] % (Auto) Seg Neutrophils % 77.3 H Seg Neutrophils # 9.4 H PT APTT D-Dimer ABG pH 7.508 H ABG pO2 115.9 H ABG HCO3 33.4 H ABG O2 Saturation ABG Base Excess 9.4 H ABG Hemoglobin 11.7 L Oxyhemoglobin Sodium Potassium Chloride Carbon Dioxide 35 H BUN Creatinine 0.4 L Glucose 130 H POC Glucose Lactic Acid Uric Acid Calcium Phosphorus Magnesium Ferritin Total Bilirubin AST Lactate Dehydrogenase Total Creatine Kinase C-Reactive Protein Total Protein Albumin TSH Free T3 Index Urine WBC (Auto) Urine Creatinine Salicylates Acetaminophen Valproic Acid SARS-CoV-2 (PCR) 07/18/22 07/18/22 07/18/22 04:42 12:31 12:31 WBC RBC Hgb Hct MCV MCH RDW Plt Count [place] % (Auto) Seg Neutrophils % Seg Neutrophils # PT APTT D-Dimer ABG pH ABG pO2 ABG HCO3 ABG O2 Saturation ABG Base Excess ABG Hemoglobin Oxyhemoglobin Sodium Potassium Chloride Carbon Dioxide BUN Creatinine Glucose POC Glucose 134 H Lactic Acid Uric Acid Calcium Phosphorus Magnesium Ferritin Total Bilirubin AST Lactate Dehydrogenase Total Creatine Kinase C-Reactive Protein Total Protein Albumin TSH 9.750 H Free T3 Index 1.7 L Urine WBC (Auto) Urine Creatinine Salicylates Acetaminophen Valproic Acid SARS-CoV-2 (PCR) 07/18/22 07/18/22 07/19/22 12:33 17:39 00:43 WBC RBC Hgb Hct MCV MCH RDW Plt Count [place] % (Auto) Seg Neutrophils % Seg Neutrophils # PT APTT D-Dimer ABG pH ABG pO2 ABG HCO3 ABG O2 Saturation ABG Base Excess ABG Hemoglobin Oxyhemoglobin Sodium Potassium Chloride Carbon Dioxide BUN Creatinine Glucose POC Glucose 172 H 164 H 132 H Lactic Acid Uric Acid Calcium Phosphorus Magnesium Ferritin Total Bilirubin AST Lactate Dehydrogenase Total Creatine Kinase C-Reactive Protein Total Protein Albumin TSH Free T3 Index Urine WBC (Auto) Urine Creatinine Salicylates Acetaminophen Valproic Acid SARS-CoV-2 (PCR) 07/19/22 07/19/22 07/19/22 05:08 12:30 17:42 WBC RBC Hgb Hct MCV MCH RDW Plt Count [place] % (Auto) Seg Neutrophils % Seg Neutrophils # PT APTT D-Dimer ABG pH ABG pO2 ABG HCO3 ABG O2 Saturation ABG Base Excess ABG Hemoglobin Oxyhemoglobin Sodium Potassium Chloride Carbon Dioxide BUN Creatinine Glucose POC Glucose 143 H 159 H 139 H Lactic Acid Uric Acid Calcium Phosphorus Magnesium Ferritin Total Bilirubin AST Lactate Dehydrogenase Total Creatine Kinase C-Reactive Protein Total Protein Albumin TSH Free T3 Index Urine WBC (Auto) Urine Creatinine Salicylates Acetaminophen Valproic Acid SARS-CoV-2 (PCR) 07/19/22 07/20/22 07/20/22 23:26 05:30 06:03 WBC RBC Hgb Hct MCV MCH RDW Plt Count [place] % (Auto) Seg Neutrophils % Seg Neutrophils # PT APTT D-Dimer ABG pH 7.503 H ABG pO2 99.1 H ABG HCO3 32.8 H ABG O2 Saturation ABG Base Excess 8.8 H ABG Hemoglobin 9.7 L Oxyhemoglobin Sodium Potassium Chloride Carbon Dioxide BUN Creatinine Glucose POC Glucose 144 H 146 H Lactic Acid Uric Acid Calcium Phosphorus Magnesium Ferritin Total Bilirubin AST Lactate Dehydrogenase Total Creatine Kinase C-Reactive Protein Total Protein Albumin TSH Free T3 Index Urine WBC (Auto) Urine Creatinine Salicylates Acetaminophen Valproic Acid SARS-CoV-2 (PCR) 07/20/22 07/20/22 07/20/22 12:15 17:24 23:44 WBC RBC Hgb Hct MCV MCH RDW Plt Count [place] % (Auto) Seg Neutrophils % Seg Neutrophils # PT APTT D-Dimer ABG pH ABG pO2 ABG HCO3 ABG O2 Saturation ABG Base Excess ABG Hemoglobin Oxyhemoglobin Sodium Potassium Chloride Carbon Dioxide BUN Creatinine Glucose POC Glucose 138 H 135 H 131 H Lactic Acid Uric Acid Calcium Phosphorus Magnesium Ferritin Total Bilirubin AST Lactate Dehydrogenase Total Creatine Kinase C-Reactive Protein Total Protein Albumin TSH Free T3 Index Urine WBC (Auto) Urine Creatinine Salicylates Acetaminophen Valproic Acid SARS-CoV-2 (PCR) 07/21/22 07/21/22 07/21/22 04:00 04:00 05:13 WBC RBC 2.92 L Hgb 9.6 L Hct 29.0 L MCV 99 H MCH 33 H RDW 15.6 H Plt Count 136 L [place] % (Auto) Seg Neutrophils % Seg Neutrophils # PT APTT D-Dimer ABG pH ABG pO2 ABG HCO3 ABG O2 Saturation ABG Base Excess ABG Hemoglobin Oxyhemoglobin Sodium Potassium Chloride Carbon Dioxide 32 H BUN Creatinine 0.3 L Glucose 133 H POC Glucose 142 H Lactic Acid Uric Acid Calcium 8.3 L Phosphorus Magnesium Ferritin Total Bilirubin AST Lactate Dehydrogenase Total Creatine Kinase C-Reactive Protein Total Protein Albumin TSH Free T3 Index Urine WBC (Auto) Urine Creatinine Salicylates Acetaminophen Valproic Acid SARS-CoV-2 (PCR) 07/21/22 07/21/22 07/21/22 06:16 11:48 16:08 WBC RBC Hgb Hct MCV MCH RDW Plt Count [place] % (Auto) Seg Neutrophils % Seg Neutrophils # PT APTT D-Dimer ABG pH ABG pO2 ABG HCO3 ABG O2 Saturation ABG Base Excess ABG Hemoglobin Oxyhemoglobin Sodium Potassium Chloride Carbon Dioxide BUN Creatinine Glucose POC Glucose 149 H 124 H 139 H Lactic Acid Uric Acid Calcium Phosphorus Magnesium Ferritin Total Bilirubin AST Lactate Dehydrogenase Total Creatine Kinase C-Reactive Protein Total Protein Albumin TSH Free T3 Index Urine WBC (Auto) Urine Creatinine Salicylates Acetaminophen Valproic Acid SARS-CoV-2 (PCR) 07/22/22 07/22/22 07/22/22 00:05 04:00 04:13 WBC RBC 2.90 L Hgb 9.5 L Hct 28.9 L MCV 100 H MCH 33 H RDW 15.5 H Plt Count [place] % (Auto) 10.0 H Seg Neutrophils % Seg Neutrophils # PT APTT D-Dimer ABG pH ABG pO2 ABG HCO3 ABG O2 Saturation ABG Base Excess ABG Hemoglobin Oxyhemoglobin Sodium Potassium Chloride Carbon Dioxide 31 H BUN Creatinine 0.4 L Glucose 105 H POC Glucose 143 H Lactic Acid Uric Acid Calcium Phosphorus Magnesium Ferritin Total Bilirubin AST Lactate Dehydrogenase Total Creatine Kinase C-Reactive Protein Total Protein Albumin TSH Free T3 Index Urine WBC (Auto) Urine Creatinine Salicylates Acetaminophen Valproic Acid SARS-CoV-2 (PCR) 07/22/22 07/23/22 07/23/22 11:03 04:25 04:25 WBC RBC 2.71 L Hgb 9.1 L Hct 27.0 L MCV 100 H MCH 33 H RDW 15.4 H Plt Count [place] % (Auto) Seg Neutrophils % Seg Neutrophils # PT APTT D-Dimer ABG pH ABG pO2 ABG HCO3 ABG O2 Saturation ABG Base Excess ABG Hemoglobin Oxyhemoglobin Sodium Potassium Chloride Carbon Dioxide 33 H BUN Creatinine 0.4 L Glucose POC Glucose 111 H Lactic Acid Uric Acid Calcium 8.3 L Phosphorus Magnesium Ferritin Total Bilirubin AST Lactate Dehydrogenase Total Creatine Kinase C-Reactive Protein Total Protein Albumin TSH Free T3 Index Urine WBC (Auto) Urine Creatinine Salicylates Acetaminophen Valproic Acid SARS-CoV-2 (PCR) 07/23/22 07/23/22 07/23/22 06:14 11:09 23:34 WBC RBC Hgb Hct MCV MCH RDW Plt Count [place] % (Auto) Seg Neutrophils % Seg Neutrophils # PT APTT D-Dimer ABG pH ABG pO2 ABG HCO3 ABG O2 Saturation ABG Base Excess ABG Hemoglobin Oxyhemoglobin Sodium Potassium Chloride Carbon Dioxide BUN Creatinine Glucose POC Glucose 106 H 117 H 115 H Lactic Acid Uric Acid Calcium Phosphorus Magnesium Ferritin Total Bilirubin AST Lactate Dehydrogenase Total Creatine Kinase C-Reactive Protein Total Protein Albumin TSH Free T3 Index Urine WBC (Auto) Urine Creatinine Salicylates Acetaminophen Valproic Acid SARS-CoV-2 (PCR) 07/24/22 07/24/22 07/24/22 05:24 11:25 16:52 WBC RBC Hgb Hct MCV MCH RDW Plt Count [place] % (Auto) Seg Neutrophils % Seg Neutrophils # PT APTT D-Dimer ABG pH ABG pO2 ABG HCO3 ABG O2 Saturation ABG Base Excess ABG Hemoglobin Oxyhemoglobin Sodium Potassium Chloride Carbon Dioxide BUN Creatinine Glucose POC Glucose 122 H 139 H 126 H Lactic Acid Uric Acid Calcium Phosphorus Magnesium Ferritin Total Bilirubin AST Lactate Dehydrogenase Total Creatine Kinase C-Reactive Protein Total Protein Albumin TSH Free T3 Index Urine WBC (Auto) Urine Creatinine Salicylates Acetaminophen Valproic Acid SARS-CoV-2 (PCR) 07/25/22 07/25/22 07/25/22 00:10 04:22 04:22 WBC RBC 2.86 L Hgb 9.4 L Hct 28.5 L MCV 100 H MCH 33 H RDW 15.4 H Plt Count [place] % (Auto) Seg Neutrophils % Seg Neutrophils # PT APTT D-Dimer ABG pH ABG pO2 ABG HCO3 ABG O2 Saturation ABG Base Excess ABG Hemoglobin Oxyhemoglobin Sodium Potassium Chloride Carbon Dioxide 31 H BUN Creatinine 0.3 L Glucose 135 H POC Glucose 131 H Lactic Acid Uric Acid Calcium 8.0 L Phosphorus 2.20 L Magnesium Ferritin Total Bilirubin AST Lactate Dehydrogenase Total Creatine Kinase C-Reactive Protein Total Protein Albumin TSH Free T3 Index Urine WBC (Auto) Urine Creatinine Salicylates Acetaminophen Valproic Acid SARS-CoV-2 (PCR) 07/25/22 07/25/22 07/25/22 05:17 11:49 17:27 WBC RBC Hgb Hct MCV MCH RDW Plt Count [place] % (Auto) Seg Neutrophils % Seg Neutrophils # PT APTT D-Dimer ABG pH ABG pO2 ABG HCO3 ABG O2 Saturation ABG Base Excess ABG Hemoglobin Oxyhemoglobin Sodium Potassium Chloride Carbon Dioxide BUN Creatinine Glucose POC Glucose 155 H 140 H 123 H Lactic Acid Uric Acid Calcium Phosphorus Magnesium Ferritin Total Bilirubin AST Lactate Dehydrogenase Total Creatine Kinase C-Reactive Protein Total Protein Albumin TSH Free T3 Index Urine WBC (Auto) Urine Creatinine Salicylates Acetaminophen Valproic Acid SARS-CoV-2 (PCR) 07/25/22 07/26/22 07/26/22 23:57 06:00 06:08 WBC RBC Hgb Hct MCV MCH RDW Plt Count [place] % (Auto) Seg Neutrophils % Seg Neutrophils # PT APTT D-Dimer ABG pH ABG pO2 ABG HCO3 ABG O2 Saturation ABG Base Excess ABG Hemoglobin Oxyhemoglobin Sodium Potassium 3.5 L Chloride Carbon Dioxide 32 H BUN Creatinine 0.3 L Glucose 116 H POC Glucose 124 H 134 H Lactic Acid Uric Acid Calcium 7.9 L Phosphorus Magnesium Ferritin Total Bilirubin AST Lactate Dehydrogenase Total Creatine Kinase C-Reactive Protein Total Protein Albumin TSH Free T3 Index Urine WBC (Auto) Urine Creatinine Salicylates Acetaminophen Valproic Acid SARS-CoV-2 (PCR) 07/26/22 07/26/22 07/26/22 13:38 17:22 23:22 WBC RBC Hgb Hct MCV MCH RDW Plt Count [place] % (Auto) Seg Neutrophils % Seg Neutrophils # PT APTT D-Dimer ABG pH ABG pO2 ABG HCO3 ABG O2 Saturation ABG Base Excess ABG Hemoglobin Oxyhemoglobin Sodium Potassium Chloride Carbon Dioxide BUN Creatinine Glucose POC Glucose 112 H 123 H 117 H Lactic Acid Uric Acid Calcium Phosphorus Magnesium Ferritin Total Bilirubin AST Lactate Dehydrogenase Total Creatine Kinase C-Reactive Protein Total Protein Albumin TSH Free T3 Index Urine WBC (Auto) Urine Creatinine Salicylates Acetaminophen Valproic Acid SARS-CoV-2 (PCR) 07/26/22 07/27/22 07/27/22 Unknown 05:54 10:00 WBC RBC 2.61 L Hgb 8.8 L Hct 26.2 L MCV 100 H MCH 34 H RDW 15.6 H Plt Count [place] % (Auto) Seg Neutrophils % Seg Neutrophils # PT APTT D-Dimer ABG pH ABG pO2 ABG HCO3 ABG O2 Saturation ABG Base Excess ABG Hemoglobin Oxyhemoglobin Sodium Potassium Chloride Carbon Dioxide BUN Creatinine 0.3 L Glucose 125 H POC Glucose 124 H Lactic Acid Uric Acid Calcium 8.3 L Phosphorus 1.90 L Magnesium Ferritin Total Bilirubin AST Lactate Dehydrogenase Total Creatine Kinase C-Reactive Protein Total Protein Albumin TSH Free T3 Index Urine WBC (Auto) Urine Creatinine Salicylates Acetaminophen Valproic Acid SARS-CoV-2 (PCR) 07/27/22 07/27/22 07/27/22 11:06 18:32 23:20 WBC RBC Hgb Hct MCV MCH RDW Plt Count [place] % (Auto) Seg Neutrophils % Seg Neutrophils # PT APTT D-Dimer ABG pH ABG pO2 ABG HCO3 ABG O2 Saturation ABG Base Excess ABG Hemoglobin Oxyhemoglobin Sodium Potassium Chloride Carbon Dioxide BUN Creatinine Glucose POC Glucose 133 H 119 H 110 H Lactic Acid Uric Acid Calcium Phosphorus Magnesium Ferritin Total Bilirubin AST Lactate Dehydrogenase Total Creatine Kinase C-Reactive Protein Total Protein Albumin TSH Free T3 Index Urine WBC (Auto) Urine Creatinine Salicylates Acetaminophen Valproic Acid SARS-CoV-2 (PCR) 07/28/22 07/28/22 07/29/22 05:37 11:13 04:05 WBC RBC 2.64 L Hgb 8.8 L Hct 26.6 L MCV 101 H MCH 33 H RDW 16.4 H Plt Count [place] % (Auto) Seg Neutrophils % Seg Neutrophils # PT APTT D-Dimer ABG pH ABG pO2 ABG HCO3 ABG O2 Saturation ABG Base Excess ABG Hemoglobin Oxyhemoglobin Sodium Potassium Chloride Carbon Dioxide BUN Creatinine Glucose POC Glucose 127 H 115 H Lactic Acid Uric Acid Calcium Phosphorus Magnesium Ferritin Total Bilirubin AST Lactate Dehydrogenase Total Creatine Kinase C-Reactive Protein Total Protein Albumin TSH Free T3 Index Urine WBC (Auto) Urine Creatinine Salicylates Acetaminophen Valproic Acid SARS-CoV-2 (PCR) 07/29/22 07/29/22 07/29/22 04:05 05:20 11:06 WBC RBC Hgb Hct MCV MCH RDW Plt Count [place] % (Auto) Seg Neutrophils % Seg Neutrophils # PT APTT D-Dimer ABG pH ABG pO2 ABG HCO3 ABG O2 Saturation ABG Base Excess ABG Hemoglobin Oxyhemoglobin Sodium Potassium Chloride Carbon Dioxide 33 H BUN Creatinine 0.3 L Glucose 115 H POC Glucose 119 H 125 H Lactic Acid Uric Acid Calcium 8.2 L Phosphorus Magnesium Ferritin Total Bilirubin AST Lactate Dehydrogenase Total Creatine Kinase C-Reactive Protein Total Protein Albumin TSH Free T3 Index Urine WBC (Auto) Urine Creatinine Salicylates Acetaminophen Valproic Acid SARS-CoV-2 (PCR) 07/29/22 07/29/22 07/30/22 16:08 23:41 06:03 WBC RBC Hgb Hct MCV MCH RDW Plt Count [place] % (Auto) Seg Neutrophils % Seg Neutrophils # PT APTT D-Dimer ABG pH ABG pO2 ABG HCO3 ABG O2 Saturation ABG Base Excess ABG Hemoglobin Oxyhemoglobin Sodium Potassium Chloride Carbon Dioxide BUN Creatinine Glucose POC Glucose 111 H 120 H 110 H Lactic Acid Uric Acid Calcium Phosphorus Magnesium Ferritin Total Bilirubin AST Lactate Dehydrogenase Total Creatine Kinase C-Reactive Protein Total Protein Albumin TSH Free T3 Index Urine WBC (Auto) Urine Creatinine Salicylates Acetaminophen Valproic Acid SARS-CoV-2 (PCR) 07/30/22 07/30/22 07/30/22 11:18 14:15 14:15 WBC RBC 2.55 L Hgb 8.5 L Hct 25.7 L MCV 101 H MCH 33 H RDW 16.5 H Plt Count [place] % (Auto) Seg Neutrophils % Seg Neutrophils # PT APTT D-Dimer ABG pH ABG pO2 ABG HCO3 ABG O2 Saturation ABG Base Excess ABG Hemoglobin Oxyhemoglobin Sodium Potassium Chloride Carbon Dioxide BUN Creatinine 0.3 L Glucose POC Glucose 111 H Lactic Acid Uric Acid Calcium Phosphorus Magnesium Ferritin Total Bilirubin AST Lactate Dehydrogenase Total Creatine Kinase C-Reactive Protein Total Protein Albumin TSH Free T3 Index Urine WBC (Auto) Urine Creatinine Salicylates Acetaminophen Valproic Acid SARS-CoV-2 (PCR) 07/30/22 07/31/22 07/31/22 16:30 04:45 04:45 WBC RBC 2.67 L Hgb 8.9 L Hct 26.9 L MCV 101 H MCH 33 H RDW 17.0 H Plt Count [place] % (Auto) Seg Neutrophils % Seg Neutrophils # PT APTT D-Dimer ABG pH ABG pO2 ABG HCO3 ABG O2 Saturation ABG Base Excess ABG Hemoglobin Oxyhemoglobin Sodium Potassium Chloride Carbon Dioxide 32 H BUN Creatinine 0.3 L Glucose 108 H POC Glucose 111 H Lactic Acid Uric Acid Calcium Phosphorus Magnesium Ferritin Total Bilirubin AST Lactate Dehydrogenase Total Creatine Kinase C-Reactive Protein Total Protein Albumin TSH Free T3 Index Urine WBC (Auto) Urine Creatinine Salicylates Acetaminophen Valproic Acid SARS-CoV-2 (PCR) 07/31/22 07/31/22 07/31/22 05:21 11:33 17:57 WBC RBC Hgb Hct MCV MCH RDW Plt Count [place] % (Auto) Seg Neutrophils % Seg Neutrophils # PT APTT D-Dimer ABG pH ABG pO2 ABG HCO3 ABG O2 Saturation ABG Base Excess ABG Hemoglobin Oxyhemoglobin Sodium Potassium Chloride Carbon Dioxide BUN Creatinine Glucose POC Glucose 114 H 112 H 115 H Lactic Acid Uric Acid Calcium Phosphorus Magnesium Ferritin Total Bilirubin AST Lactate Dehydrogenase Total Creatine Kinase C-Reactive Protein Total Protein Albumin TSH Free T3 Index Urine WBC (Auto) Urine Creatinine Salicylates Acetaminophen Valproic Acid SARS-CoV-2 (PCR) 08/01/22 08/01/22 08/01/22 00:24 04:58 06:05 WBC RBC 2.72 L Hgb 9.0 L Hct 27.7 L MCV 102 H MCH 33 H RDW 17.4 H Plt Count [place] % (Auto) Seg Neutrophils % Seg Neutrophils # PT APTT D-Dimer ABG pH ABG pO2 ABG HCO3 ABG O2 Saturation ABG Base Excess ABG Hemoglobin Oxyhemoglobin Sodium Potassium Chloride Carbon Dioxide BUN Creatinine Glucose POC Glucose 108 H 121 H Lactic Acid Uric Acid Calcium Phosphorus Magnesium Ferritin Total Bilirubin AST Lactate Dehydrogenase Total Creatine Kinase C-Reactive Protein Total Protein Albumin TSH Free T3 Index Urine WBC (Auto) Urine Creatinine Salicylates Acetaminophen Valproic Acid SARS-CoV-2 (PCR) 08/01/22 08/01/22 08/02/22 11:48 18:30 00:26 WBC RBC Hgb Hct MCV MCH RDW Plt Count [place] % (Auto) Seg Neutrophils % Seg Neutrophils # PT APTT D-Dimer ABG pH ABG pO2 ABG HCO3 ABG O2 Saturation ABG Base Excess ABG Hemoglobin Oxyhemoglobin Sodium Potassium Chloride Carbon Dioxide BUN Creatinine Glucose POC Glucose 123 H 118 H 106 H Lactic Acid Uric Acid Calcium Phosphorus Magnesium Ferritin Total Bilirubin AST Lactate Dehydrogenase Total Creatine Kinase C-Reactive Protein Total Protein Albumin TSH Free T3 Index Urine WBC (Auto) Urine Creatinine Salicylates Acetaminophen Valproic Acid SARS-CoV-2 (PCR) 08/02/22 08/02/22 05:00 05:57 WBC RBC Hgb Hct MCV MCH RDW Plt Count [place] % (Auto) Seg Neutrophils % Seg Neutrophils # PT APTT D-Dimer ABG pH ABG pO2 ABG HCO3 ABG O2 Saturation ABG Base Excess ABG Hemoglobin Oxyhemoglobin Sodium Potassium Chloride Carbon Dioxide BUN Creatinine 0.4 L Glucose POC Glucose 119 H Lactic Acid Uric Acid Calcium Phosphorus Magnesium Ferritin Total Bilirubin AST Lactate Dehydrogenase Total Creatine Kinase C-Reactive Protein Total Protein Albumin TSH Free T3 Index Urine WBC (Auto) Urine Creatinine Salicylates Acetaminophen Valproic Acid SARS-CoV-2 (PCR)
--- NOTE | 2022-08-02 18:51 | Progress Note ---
Assessment and Plan Assessment and plan: This is a 76-year-old female with CVA, pulmonary embolism, hypothyroidism and JUJU admitted with electrolyte imbalances, hypoxic respiratory failure and COVID- 19 pneumonia Neuro: Acute metabolic encephalopathy, h/o CVA with hemiplegia, dysphagia, aphasia, dementia -Neurology consulted, appreciate recommendations -Reorientation as needed -Maintain sleep-wake cycle -Resume home Lipitor -As needed analgesia -CT head shows no acute intracranial hemorrhage, multiple chronic appearing infarcts including left MCA distribution, left cerebral hemisphere and within the right basal ganglia -Depakene -EEG compatible with significant diffuse encephalopathy -MRI shows no acute findings, remote infarction of the left frontal lobe and left cerebellum, moderate sequela of chronic microvascular disease Cardiac: h/o HLD -Resume home Lipitor -Blood pressure monitoring per protocol Respiratory: Acute hypoxic respiratory failure, h/o JUJU, pulmonary embolism -CCM consulted, appreciate recommendations -Intubated on 07/07 with a 7.50 ETT at 24 the lips -07/22 s/p Trach/PEG -A.m. vent settings: AC rate 10, tidal and 400, PEEP 6, FiO2 28 -See RT notes for titration -A.m. ABG and CXR noted -VAP bundle -SPO2 monitoring -Eliquis restarted GI: NAD -PPI -07/22 s/p PEG -NTR consulted for tube feedings -BR: Senokot-S : Rhabdomyolysis -Nephrology consulted, appreciate recommendations -Monitor intake and output -Free water flush -Renally dose medications -Avoid nephrotoxic medications -Trend BMP ID: COVID-19 pneumonia, lactic acidosis, Klebsiella pneumonia -Infectious disease consulted, appreciate recommendation -s/p Azithromycin 07/07-07/10, Rocephin -Decadron 10mg for 10 days () -s/p Remdesivir () -CRP 0.3, procalcitonin 0.19 -Contact/droplet precautions discontinued -f/u blood culture -Trend COVID-19 inflammatory markers -Monitor WBC and temperature curve -Prophylactic anticoagulation based on D-dimer per hospital protocol Endo: h/o hypothyroidism -Avoid hypoglycemia -SSI -Accu-Cheks q. 6 -Long-acting insulin, titrate as needed -Resume home Synthroid Heme: Thrombocytopenia (resolved) -Trend CBC -Transfuse hemoglobin less than 7 -SCDs to BLE while in bed The high probability of a clinically significant, sudden or life threatening deterioration of the [multi] system(s) required my full and direct attention, intervention and personal management. The aggregate critical care time was [60] minutes. This time is in addition to time spent performing reported procedures but includes the following: [x] Data Review and interpretation [x] Patient assessment and monitoring of vital signs [x] Documentation [x] Medication orders and management Disposition Plan: icu Total Time Spent with Patient (Minutes): 60 History Interval history: This is a 76-year-old female with CVA resulting hemiplegia, dysphagia, aphasia, dementia, pulm embolism without acute cor pulmonale, hypothyroidism and JUJU who presented to the hospital on 07/07 [place] her [place] [facility] for altered mental s tatus and diminished cognition and possible hypoxia via EMS. In the emergency department patient was intubated due to concern for airway protection. Recommend emergency department showed leukocytosis, hyponatremia with a sodium of 168, hypercalcemia, hypomagnesemia, elevated CK. Patient was admitted to the hospitalist service with acute hypoxic respiratory failure, COVID-19 PUI, hypernatremia, transaminitis, rhabdomyolysis with consults to CCM and nephrology: Hospital course to date: 07/08: Patient noted to be COVID-positive, started on remdesivir, Decadron, ceftriaxone azithromycin and infectious disease was consulted yesterday. This morning patient is on any sedation, PICC line to be placed. RT to attempt PSV. Started on free water flushes and tube feedings. Continues on D5 half-normal saline. 07/09: Patient remains encephalopathic, not on any sedation. Hypernatremia is improving, on FWF Q4hrs and D5w gtt per Nephro. If hypernatremia continue to improve and patient's mentation is unchanged, will get a repeat CT to r/o intracranial abnormalities. Patient remains afebrile, leukocytosis improved, and VSS. Continue current IV abx per ID. Patient failed PSV trial again today, continue PSV trial as tolerated 07/10: Remains stable on the vent, tolerating PSV trial this am. sodium continue to improve but no change in mental status. D/w CCM will get MRI brain to r/o any intracranial abnormalities, EEG also ordered to r/o seizures. Continue FWF and D5w gtt per Nephro. Continue IV steroids and current IV abx per ID. 07/11: Hypernatremia resolved, mentation is unchanged, remains on low vent setting. EEG noted, and MRI brain pending. Will consult Neurology for further recommendations. Continue daily PSV trial as tolerated. 07/12: Appears more awake this morning but still not following any commands. MRI brain with no acute findings and sodium normalized. Awaiting Neuro consult. Continue daily PSV trial as tolerated. Patient's daughter was updated via phone, all questions and concerns were addressed at this time. Medical records request ed from [facility] and [facility]. 07/13: DELMI overnight. Mentation is unchanged, remains stable on the vent. Neurology consult pending. Continue vent adjustment per [facility] and daily PSV trial as tolerated. 07/14: Mentation is unchanged, remains afebrile and stable on the vent, VSS. Complete antibiotics course, still on IV steroids X3 more days. ID recommendations noted, remove corbin. Continue daily PSV trial as tolerated. 07/15: DELMI overnight, mentation unchanged, VSS. Patient failed PSV trial this am d ue to apnea. Continue daily PSV trial as tolerated. Possible trach and Peg per [facility]. 07/16: No acute events overnight, attempted PSV again today. [facility] to have family meeting on 07/17 to discuss trach/PEG 07/17: [facility] will have family meeting tomorrow. Failed PSV again. No acute events overnight. Thrombocytopenia continues to improve 07/18: [facility] held a family meeting today and surgery will be consulted for trach/PEG placement. Family stated that patient had not had her levothyroxine for se veral months due to decreased p.o. intake, will send thyroid panel. No acute events reported overnight. Hypotension today and 500 mL normal saline bolus given. Possible trach/peg within 2 days 07/19: No acute events reported overnight. Free T4 normal. Failed PSV 07/20: No acute events reported overnight. Patient taken off isolation per ID. Trach/PEG scheduled for Friday. failed PSV 07/21: No acute events reported overnight. Trach/peg for friday. PSV ongoing 07/22: Remains stable, DELMI overnight. Plan for possible Trac/PEG today by general surgery. Continue dailu PSV trial as tolerated. 9/13: s/p trach and PEG, remains stable on low vent setting, recent CXR is unremarkable. VSS. Resume TF once okayed by General Surgery. Continue daily PSV trial as tolerated. Possible LTAC placement, case management to arrange. 07/24: Remains stable on the vent, tolerating TF via Peg. Continue supportive measures and daily PSV trial. Awaiting placement. 07/25: DELMI overnight. Continue supportive measures and daily PSV trial. PT/OT consulted. Awaiting placement, case management to arrange. 07/26: DELMI overnight. Continue supportive measures and daily PSV trial. Awaiting placement, case management to arrange. 07/27: Patient failed PSV trial this am due to periods of apnea. Continue daily PSV trial as tolerated. Awaiting placement, case management to arrange. 07/28: DELMI overnight. Continue daily PSV trial as tolerated. Awaiting placement, case management to arrange. 07/29: No acute events reported overnight, failed CPAP trial. 07/30: CPAP trial, no acute events reported overnight. Continue supportive care. Awaiting LTAC placement. 07/31: No acute events reported overnight. Failed CPAP trial. 08/01: No acute events reported overnight, continue supportive care. Failed CPAP again. 08/02: no acute events, cpap trials as tolerated Hospitalist Physical - Constitutional Vitals: Temp Pulse Resp BP Pulse Ox 98.4 F 100 H 10 L 145/85 100 08/02/22 16:00 08/02/22 18:00 08/02/22 18:00 08/02/22 18:00 08/02/22 18:00 General appearance: Present: no acute distress - EENT Eyes: Present: PERRL ENT: dentition normal - Neck Neck: Present: normal ROM - Respiratory Respiratory effort: normal Respiratory: bilateral: diminished, rhonchi - Cardiovascular Rhythm: regular Heart Sounds: Present: S1 & S2. Absent: systolic murmur, diastolic murmur - Extremities Extremities: no ischemia, pulses intact, pulses symmetrical, No edema, normal temperature, normal color Peripheral Pulses: within normal limits - Abdominal General gastrointestinal: soft, non-tender, non-distended, normal bowel sounds - Integumentary Integumentary: Present: warm, dry - Psychiatric Psychiatric: other - Neurologic Neurologic: other - Allied Health Allied health notes reviewed: nursing, RT, social work HEART Score - HEART Score Troponin: Troponin T 0.010 ng/mL (0.00-0.029) 07/07/22 04:17 Results - Labs CBC & Chem 7: 08/01/22 04:58 08/02/22 05:00 Labs: Laboratory Last Values WBC 6.1 K/mm3 (4.5-11.0) 08/01/22 04:58 RBC 2.72 M/mm3 (3.65-5.03) L 08/01/22 04:58 Hgb 9.0 gm/dl (10.1-14.3) L 08/01/22 04:58 Hct 27.7 % (30.3-42.9) L 08/01/22 04:58 MCV 102 fl (79-97) H 08/01/22 04:58 MCH 33 pg (28-32) H 08/01/22 04:58 MCHC 33 % (30-34) 08/01/22 04:58 RDW 17.4 % (13.2-15.2) H 08/01/22 04:58 Plt Count 326 K/mm3 (140-440) 08/01/22 04:58 Lymph % (Auto) 33.3 % (13.4-35.0) 07/22/22 04:13 [place] % (Auto) 10.0 % (0.0-7.3) H 07/22/22 04:13 Eos % (Auto) 0.5 % (0.0-4.3) 07/22/22 04:13 Baso % (Auto) 0.1 % (0.0-1.8) 07/22/22 04:13 Lymph # (Auto) 2.1 K/mm3 (1.2-5.4) 07/22/22 04:13 [place] # (Auto) 0.6 K/mm3 (0.0-0.8) 07/22/22 04:13 Eos # (Auto) 0.0 K/mm3 (0.0-0.4) 07/22/22 04:13 Baso # (Auto) 0.0 K/mm3 (0.0-0.1) 07/22/22 04:13 Seg Neutrophils % 56.1 % (40.0-70.0) 07/22/22 04:13 Seg Neutrophils # 3.6 K/mm3 (1.8-7.7) 07/22/22 04:13 PT 13.0 Sec. (12.2-14.9) 07/30/22 14:15 INR 0.89 (0.87-1.13) 07/30/22 14:15 APTT 32.6 Sec. (24.2-36.6) 07/30/22 14:15 D-Dimer 925.80 ng/mlDDU (0-234) H 07/12/22 04:00 ABG pH 7.503 pH Units (7.350-7.450) H 07/20/22 05:30 ABG pCO2 42.7 mm Hg 07/20/22 05:30 ABG pO2 99.1 mm Hg (80.0-90.0) H 07/20/22 05:30 ABG HCO3 32.8 mmol/L (20.0-26.0) H 07/20/22 05:30 ABG O2 Saturation 97.8 % (95.0-99.0) 07/20/22 05:30 ABG O2 Content 13.3 (0.0-44) 07/20/22 05:30 ABG Base Excess 8.8 mmol/L (-2.0-3.0) H 07/20/22 05:30 ABG Hemoglobin 9.7 gm/dl (12.0-16.0) L 07/20/22 05:30 ABG Carboxyhemoglobin 1.3 % (0.0-5.0) 07/20/22 05:30 ABG Methemoglobin 0.6 % (0.0-1.5) 07/20/22 05:30 Oxyhemoglobin 95.9 % (95.0-99.0) 07/20/22 05:30 FiO2 28 % 07/20/22 05:30 Sodium 140 mmol/L (137-145) 07/31/22 04:45 Potassium 4.2 mmol/L (3.6-5.0) 07/31/22 04:45 Chloride 102.5 mmol/L (98-107) 07/31/22 04:45 Carbon Dioxide 32 mmol/L (22-30) H 07/31/22 04:45 Anion Gap 10 mmol/L 07/31/22 04:45 BUN 13 mg/dL (7-17) 07/31/22 04:45 Creatinine 0.4 mg/dL (0.6-1.2) L 08/02/22 05:00 Estimated GFR > 60 ml/min 08/02/22 05:00 BUN/Creatinine Ratio 43 % 07/31/22 04:45 Glucose 108 mg/dL (65-100) H 07/31/22 04:45 POC Glucose 112 mg/dL (70-105) H 08/02/22 13:23 Lactic Acid 2.10 mmol/L (0.7-2.0) H* 07/10/22 08:24 Uric Acid 13.5 mg/dL (3.5-7.6) H 07/07/22 04:17 Calcium 8.9 mg/dL (8.4-10.2) 07/31/22 04:45 Phosphorus 3.00 mg/dL (2.5-4.5) 07/29/22 04:05 Magnesium 1.70 mg/dL (1.7-2.3) 07/29/22 04:05 Ferritin 519.5 ng/mL (10.0-200.0) H 07/12/22 04:00 Total Bilirubin 0.30 mg/dL (0.1-1.2) 07/10/22 04:21 AST 89 units/L (5-40) H 07/10/22 04:21 ALT 53 units/L (7-56) 07/10/22 04:21 Alkaline Phosphatase 83 units/L (35-129) 07/10/22 04:21 Ammonia 32.0 umol/L (25-60) 07/07/22 04:17 Lactate Dehydrogenase 444 units/L (91-180) H 07/12/22 04:00 Total Creatine Kinase 67 units/L (30-135) 08/01/22 04:58 Troponin T 0.010 ng/mL (0.00-0.029) 07/07/22 04:17 C-Reactive Protein 0.30 mg/dL (0.00-1.30) 07/12/22 04:00 Total Protein 4.9 g/dL (6.3-8.2) L 07/10/22 04:21 Albumin 2.5 g/dL (3.9-5) L 07/10/22 04:21 Albumin/Globulin Ratio 1.0 % 07/10/22 04:21 Procalcitonin 0.19 ng/mL (<0.15) 07/08/22 14:54 TSH 9.750 mlU/mL (0.270-4.200) H 07/18/22 12:31 Free T4 0.78 ng/dL (0.76-1.46) 07/18/22 12:31 Thyroxine (T4) 6.2 ug/dL (4.0-12.0) 07/18/22 12:31 Free T3 Index 1.7 pg/mL (2.3-4.2) L 07/18/22 12:31 Total Cortisol 47.9 mcg/dL () 07/07/22 07:43 Urine Color Yellow (Yellow) 07/07/22 03:17 Urine Turbidity Slightly cloudy (Clear) 07/07/22 03:17 Specific [place] (Man) 1.015 (1.003-1.030) 07/07/22 03:17 Ur Protein (Man) 1+ mg/dL (Negative) 07/07/22 03:17 Ur Ketones (Man) Negative (Negative) 07/07/22 03:17 Ur Nitrite (Man) Negative (Negative) 07/07/22 03:17 Urine Bilirubin (Man) Negative (Negative) 07/07/22 03:17 Leukocyte Esterase (Man) Negative (Negative) 07/07/22 03:17 Urine WBC (Auto) 7.0 /HPF (0.0-6.0) H 07/07/22 03:17 Urine RBC (Auto) 1.0 /HPF (0.0-6.0) 07/07/22 03:17 U Epithel Cells (Auto) 4.0 /HPF (0-13.0) 07/07/22 03:17 Urine Bacteria (Auto) 3+ /HPF (Negative) 07/07/22 03:17 Urine RBC (Manual) 3+ (Negative) 07/07/22 03:17 Urine Mucus 3+ /HPF 07/07/22 03:17 Urine Osmolality 744 Mosm/kg 07/07/22 16:45 Urine Creatinine 92.9 mg/dL (0.1-20.0) H 07/07/22 16:45 Urine Sodium 109 mmol/L 07/07/22 16:45 Salicylates < 0.3 mg/dL (2.8-20.0) L 07/07/22 03:38 Urine Opiates Screen Presumptive negative 07/07/22 03:17 Urine Methadone Screen Presumptive negative 07/07/22 03:17 Acetaminophen 5.0 ug/mL (10.0-30.0) L 07/07/22 03:38 Ur Barbiturates Screen Presumptive negative 07/07/22 03:17 Valproic Acid 7.0 ug/mL (50-100) L 07/07/22 03:38 Ur Phencyclidine Scrn Presumptive negative 07/07/22 03:17 Ur Amphetamines Screen Presumptive negative 07/07/22 03:17 U Benzodiazepines Scrn Presumptive negative 07/07/22 03:17 Urine Cocaine Screen Presumptive negative 07/07/22 03:17 U Marijuana (THC) Screen Presumptive negative 07/07/22 03:17 Drugs of Abuse Note Disclamer 07/07/22 03:17 Plasma/Serum Alcohol < 0.01 % (0-0.07) 07/07/22 03:38 SARS-CoV-2 (PCR) Positive (Negative) A 07/07/22 15:00 Corbin/IV: Voiding Method External Female Catheter Active Medications - Current Medications Current Medications: Generic Name Dose Route Start Last Admin Trade Name Freq PRN Reason Stop Dose Admin Acetaminophen 650 mg 07/13/22 12:00 07/25/22 21:28 Acetaminophen 325 Mg/10.15 Ml Oral Liqd Unit Dose FEEDTUBE 650 mg Q6H PRN Administration Pain MILD(1-3)/Fever >100.5/LEE Apixaban 5 mg 07/30/22 22:00 08/02/22 09:57 Apixaban 5 Mg Tab FEEDTUBE 5 mg Q12HR ERROL Administration Protocol Atorvastatin Calcium 80 mg 07/10/22 22:00 08/01/22 22:11 Atorvastatin 40 Mg Tab FEEDTUBE 80 mg QHS ERROL Administration Cholecalciferol 1,000 unit 07/10/22 10:00 08/02/22 09:57 Cholecalciferol (Vit D3) 1000 Unit (25 Mcg) Tab FEEDTUBE 1,000 unit QDAY ERROL Administration Dextrose 50 ml 07/09/22 11:42 Dextrose 50% In Water (25gm) 50 Ml Syringe IV Q30MIN PRN Hypoglycemia Protocol Famotidine 20 mg 07/09/22 22:00 08/02/22 09:57 Famotidine 20 Mg Tab FEEDTUBE 20 mg BID ERROL Administration Hydrophilic Ointment 1 applic 07/07/22 02:48 Lip Therapy Vaseline TP Q2HR PRN Dry Lips Insulin Human Lispro 0 unit 07/09/22 12:00 08/02/22 18:41 Insulin Lispro 100 Unit/Ml SUB-Q Not Given Q6HR ERROL Protocol Levothyroxine Sodium 75 mcg 07/11/22 06:00 08/02/22 05:52 Levothyroxine 75 Mcg Tab FEEDTUBE 75 mcg QAM@0600 ERROL Administration Multi-Ingred Cream/Lotion/Oil/Oint 1 applic 07/07/22 02:48 Mineral Oil/Petrolatum, White Ophth Oint 3.5 Gm OU Q4HR PRN Dry Eye(s) Senna/Docusate Sodium 1 tab 07/07/22 10:00 08/02/22 09:57 Sennosides/Docusate Sodium 8.6/50 Mg Tab FEEDTUBE 1 tab BID ERROL Administration Sodium Chloride 10 ml 07/07/22 13:00 08/02/22 09:57 Sodium Chloride 0.9% 10 Ml Flush Syringe IV 10 ml BID ERROL Administration Sodium Chloride 10 ml 07/07/22 12:09 Sodium Chloride 0.9% 10 Ml Flush Syringe IV PRN PRN LINE FLUSH Valproic Acid 250 mg 07/10/22 22:00 08/02/22 09:57 Valproic Acid 250 Mg/5 Ml Oral Liqd FEEDTUBE 250 mg Q12H ERROL Administration Nutrition/Malnutrition Assess - Dietary Evaluation Nutrition/Malnutrition Findings: Nutrition Notes Start: 07/07/22 13:24 Freq: Status: Active Protocol: Document 07/24/22 09:24 DAREN (Rec: 07/24/22 09:53 DAREN [id number]) Nutrition Notes Initial or Follow up Reassessment Current Diagnosis Respiratory Failure,Stroke, Hyperlipidemia Other Pertinent Diagnosis COVID-19, Metabolic Encephalopathy, Pulmonary Embolism, Dementia. Current Diet TF-Vital AF 1.2 [place] @ 50 ml/hr (from D 07/12). Labs/Tests 07/24: CO2 33, Crea 0.4, Ca 8. 3. Pertinent Medications 07/24: Vit D3, D5w @ 50ml/hr, Levothyroxine, others nutritionally unremarkable. Height 5 ft 6 in Weight 96.2 kg [place] Body Weight (kg) 59.09 BMI 34.2 Weight change and time frame 0.946 Kg body weight gain in 1 week reported. Weight Status Obese Subjective/Other Information RD consult for routine F/U on TF tolerance/continuation assessment. TF continues as prescribed, and well tolerated, according to RN notes. Pt continues on Mechanical Ventilation, O2 saturation @ 98%, according to Physical Assessment History notes. Procedure on 07/22: Percutaneous Tracheostomy and EGD w/PEG-tube placement, well tolerated. according to Operative Report notes. TF resumed on 07/23, after PEG -tube placement, according to Progress notes. Possible discharge to LTAC facility, according to Progress notes. Percent of energy/protein needs met: Prescribed TF-Vital AF 1.2 [place] @ 50 ml/hr provides for energy/protein needs (1,440 Kcal/90 g) during LOS, 101% Kcal, 91% AA. Burn Absent Trauma Absent GI Symptoms Other Difficulty In Swallowing,Chewing Food Allergy No Skin Integrity/Comment Assessment WNL. Current % PO Other Minimum of two criteria Yes Energy Intake (non-severe) <75% Estimated Energy Requirement >7 days Interpretation of Weight Loss (non- 5% in 1 month severe) Fluid Accumulation N/A Protein-Calorie Malnutrition Non-Severe #2 Nutrition Diagnosis Malnutrition Comments: TF continues as prescribed, and well tolerated, according to RN notes. Diagnosis Progress(for reassessment Improved documentation) #1 Nutrition Diagnosis Inadequate oral intake Comments: Procedure on 07/22: Percutaneous Tracheostomy and EGD w/PEG-tube placement, well tolerated. according to Operative Report notes. TF resumed on 07/23, after PEG -tube placement, according to Progress notes. Diagnosis Progress(for reassessment Continues documentation) Is patient on ventilator? Yes Is Patient Ambulatory and/or Out of Bed No REE-([facility]-confined to bed) 1774.548 Kcal/Kg value to use for calculation 15 Approximate Energy Requirements Using 1443 kcal/Kg Calculation Used for Recommendations Kcal/kg Additional Notes Protein: 1.3 g/Kg AdjBW; 101 g /day. Fluids: 1 ml/Kcal, or as per MD. Nutrition Intervention Nutrition Support: Continue TF-Vital AF 1.2 [place] @ 50 ml/hr. Flush: 75 ml water Q 4 hr, or as per MD. Kcal 1,440 Protein (gm) 90 Carbohydrates (gm) 133 Fat (gm) 65 Fluid (mL) 973 Fiber (gm) 6 % RDI: 101% Kcal; 91% AA. Goal #1 Provide at least 75% of energy /protein needs through Enteral Feeding during LOS. Follow-Up By: 08/07/22 Additional Comments Continue monitoring TF tolerance, ventilation status, and BM.
[2022-08-03] MEDS: VALPROIC ACID 250 MG/5 ML ORAL LIQD FEEDTUBE SCH ×3 (06:23→23:21)
[2022-08-03] MEDS: LEVOTHYROXINE 75 MCG TAB FEEDTUBE SCH (06:32)
[2022-08-03] MEDS: INSULIN LISPRO 100 UNIT/ML SUB-Q SCH ×3 (07:42→18:43)
[2022-08-03] MEDS: CHOLECALCIFEROL (VIT D3) 1000 UNIT (25 mcg) TAB FEEDTUBE SCH (10:06)
[2022-08-03] MEDS: FAMOTIDINE 20 MG TAB FEEDTUBE SCH ×2 (10:06→23:21)
[2022-08-03] MEDS: APIXABAN 5 MG TAB FEEDTUBE SCH ×2 (10:06→23:21)
--- NOTE | 2022-08-03 10:56 | Progress Note ---
Assessment and Plan 76 y/o female with acute respiratory failure secondary to altered mental status, most likely from electrolyte abnormalities seen on chemistry, found to be COVID positive. 08/03/22: Continue supportive measures and daily PSV trials. 08/02/22: Daily PSV Trials 08/01/22: No new pulmonary recs today. I did speak with 2 daughters via the phone on either Friday or Friday to discuss the lack of change in mental state. Per the daughters, /father is telling them he is seeing things that even the daughter who lives here has not seen. They are preparing to speak with their father about her mental state. Continue supportive measures. 07/31/22: Daily PSV trials. PT/OT if possible. Continue tube feeds. 07/30/22: Continue daily PSV trials. 07/29/22: Daily PSV trials. Hold laxatives and stimulants for now. No changes were made in any other meds. Monitor white count and abdominal exam. 07/26/22: Daily PSV trials. Continue tube feeds. Awaiting placement. 07/25/22: Daily PSV trials. Tube feeds going and tolerating. Need to consider at least PT consult to help with movement of lower ext. 07/24/22: Continue tube feeds. Continue daily PSV trials. Await placement, weanable but will need time. 07/23/22: Tube feeds back on. No PSV trials today but will do again tomorrow. Awaiting placement. 07/22/22: Trach and Peg hopefully today. 07/21/22: Did 6 hours of PSV yesterday. Trach and peg tomorrow. Check labs to make sure lytes are stable. 07/20/22: Trach/Peg Friday. Supportive care. 07/19/22: Appreciate Surgery. on Schedule for next week. Free T4 was normal. No current indication for stress dose steroids. Continue supportive care. 07/18/22: Family meeting: Discussed current mental state. Discussed negative work up so far to explain why mental state hasnt improved. Per family here, alesia edd was better than what she is not but I had difficult time placing a time frame as to when that was, maybe May. It does appear that she has had a steady decline mentally and even stopped eating. There were talks prior to her admission here about Peg tube placement. Discussed the idea of trach and peg placement. Also explained to family that trach does not fix any underlying reason as to why the patient's mental state is the way it is. The family wasn't aware that she was brought in for altered mental status, they were told she had bradycardia. Nonetheless, the family as a whole wish to pursue trach and peg placement. Consulted Surgery and hopeful they will see soon. Continue sup portive measures and continue daily PSV trials. TSH on admit was 13, will repeat but if T4 is normal, nothing to do. She also is not behaving like myxedema coma. Guarded prognosis. 07/17/22: steroids end today. Continue daily PSV trials. Will speak with family about next steps as today is day 10 of intubation and it does not appear that conventional extubation is in the near future. 07/16/22: Continue daily PSV trials. Will speak with family tomorrow as patient is not improving enough for conventional extubation, especially with frequent apnic events. Most likely patient will need trach and peg. 07/15/22: mental status is still unchanged. Eyes open but not tracking or following commands. Also going apnic on PSV trials. Most likely will need trach and peg given mental status has not improved. 07/12/22: Negative MRI for acute infarct. Na is normal. Continue to monitor. Daily PSV trials. Has been intubated now for 5 days. 07/11/22: for MRI today. Appreciate renal help, agree with signing off. Attempt daily PSV. Guarded prognosis. 07/10: follow up MRI. Get official EEG read but no status. Continue daily PSV trials. Guarded prognosis 07/09/22: Continue supportive measures. Continue to fix Na, if no improvement in mental state with normal sodium then will pursue MRI. Picc placed today. 07/08/22: No further sedation. 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 Consider neurology consult and may need to obtain MRI. Attempt PSV trials today. 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 Feed patient and monitor lytes. 1. Discontinue sedation 2. Wean FiO2 for sats >88% and PaO2 greater than 60 3. Agree with fluid resuscitation, patient needs free water 4. Will follow up with family to find out exactly what patient mental status was a facility CCT 31 minutes. Subjective Date of service: 08/03/22 Principal diagnosis: Hypernatremia Interval history: No acute events. Objective Vital Signs - 12hr 08/02/22 08/03/22 08/03/22 23:00 00:00 00:05 Temperature 98.9 F Pulse Rate 99 H 89 91 H Pulse Rate [ 105 H From Monitor] Pulse Rate [ 88 Left Dorsalis Pedis] Respiratory 10 L 11 L Rate Blood Pressure 141/76 140/71 140/71 O2 Sat by Pulse 100 100 100 Oximetry O2 Sat by Pulse Oximetry [ Assessment] 08/03/22 08/03/22 08/03/22 01:00 02:00 03:00 Temperature Pulse Rate 95 H 99 H 94 H Pulse Rate [ From Monitor] Pulse Rate [ Left Dorsalis Pedis] Respiratory 10 L 11 L 10 L Rate Blood Pressure 131/67 147/73 145/73 O2 Sat by Pulse 100 100 100 Oximetry O2 Sat by Pulse Oximetry [ Assessment] 08/03/22 08/03/22 08/03/22 04:00 04:38 04:40 Temperature 99.2 F Pulse Rate 96 H 90 Pulse Rate [ 105 H From Monitor] Pulse Rate [ 79 Left Dorsalis Pedis] Respiratory 12 Rate Blood Pressure 157/74 143/79 O2 Sat by Pulse 100 100 Oximetry O2 Sat by Pulse 100 Oximetry [ Assessment] 08/03/22 08/03/22 08/03/22 05:00 06:00 07:00 Temperature Pulse Rate 123 H 96 H 87 Pulse Rate [ From Monitor] Pulse Rate [ Left Dorsalis Pedis] Respiratory 11 L 10 L 10 L Rate Blood Pressure 143/79 126/68 139/70 O2 Sat by Pulse 100 100 100 Oximetry O2 Sat by Pulse Oximetry [ Assessment] 08/03/22 08/03/22 08/03/22 08:00 09:00 10:00 Temperature Pulse Rate 81 78 87 Pulse Rate [ From Monitor] Pulse Rate [ Left Dorsalis Pedis] Respiratory 10 L 10 L 10 L Rate Blood Pressure 125/68 138/69 135/70 O2 Sat by Pulse 100 100 100 Oximetry O2 Sat by Pulse Oximetry [ Assessment] Constitutional: comatose ENT: other (orally intubated) Neck: supple Effort: normal Ascultation: Bilateral: clear Percussion: Bilateral: not dull Cardiovascular: regular rate and rhythm Gastrointestinal: normoactive bowel sounds, soft Extremities: no cyanosis, no edema Neurologic: unable to assess CBC and BMP: 08/01/22 04:58 08/02/22 05:00 ABG, PT/INR, D-dimer: ABG ABG pH 7.503 pH Units (7.350-7.450) H 07/20/22 05:30 ABG pCO2 42.7 mm Hg 07/20/22 05:30 ABG pO2 99.1 mm Hg (80.0-90.0) H 07/20/22 05:30 ABG O2 Saturation 97.8 % (95.0-99.0) 07/20/22 05:30 PT/INR, D-dimer PT 13.0 Sec. (12.2-14.9) 07/30/22 14:15 INR 0.89 (0.87-1.13) 07/30/22 14:15 D-Dimer 925.80 ng/mlDDU (0-234) H 07/12/22 04:00 Abnormal lab findings: Abnormal Labs 07/07/22 07/07/22 07/07/22 03:17 03:38 03:38 WBC RBC 5.43 H Hgb 18.2 H Hct 54.9 H MCV 101 H MCH 34 H RDW Plt Count 104 L [place] % (Auto) Seg Neutrophils % Seg Neutrophils # PT 15.0 H APTT 23.0 L D-Dimer ABG pH ABG pO2 ABG HCO3 ABG O2 Saturation ABG Base Excess ABG Hemoglobin Oxyhemoglobin Sodium Potassium Chloride Carbon Dioxide BUN Creatinine Glucose POC Glucose Lactic Acid Uric Acid Calcium Phosphorus Magnesium Ferritin Total Bilirubin AST Lactate Dehydrogenase Total Creatine Kinase C-Reactive Protein Total Protein Albumin TSH Free T3 Index Urine WBC (Auto) 7.0 H Urine Creatinine Salicylates Acetaminophen Valproic Acid SARS-CoV-2 (PCR) 07/07/22 07/07/22 07/07/22 03:38 03:38 03:38 WBC RBC Hgb Hct MCV MCH RDW Plt Count [place] % (Auto) Seg Neutrophils % Seg Neutrophils # PT APTT D-Dimer ABG pH ABG pO2 ABG HCO3 ABG O2 Saturation ABG Base Excess ABG Hemoglobin Oxyhemoglobin Sodium Potassium Chloride Carbon Dioxide BUN Creatinine Glucose POC Glucose Lactic Acid Uric Acid Calcium Phosphorus Magnesium 3.30 H Ferritin Total Bilirubin AST Lactate Dehydrogenase Total Creatine Kinase 1826 H C-Reactive Protein Total Protein Albumin TSH Free T3 Index Urine WBC (Auto) Urine Creatinine Salicylates < 0.3 L Acetaminophen 5.0 L Valproic Acid 7.0 L SARS-CoV-2 (PCR) 07/07/22 07/07/22 07/07/22 04:17 04:17 04:17 WBC RBC Hgb Hct MCV MCH RDW Plt Count [place] % (Auto) Seg Neutrophils % Seg Neutrophils # PT APTT D-Dimer ABG pH ABG pO2 ABG HCO3 ABG O2 Saturation ABG Base Excess ABG Hemoglobin Oxyhemoglobin Sodium 168 H* Potassium 3.2 L Chloride 122.2 H Carbon Dioxide BUN 52 H Creatinine Glucose 158 H POC Glucose Lactic Acid 3.50 H* Uric Acid Calcium 10.9 H Phosphorus Magnesium Ferritin Total Bilirubin 1.40 H AST 47 H Lactate Dehydrogenase Total Creatine Kinase C-Reactive Protein Total Protein Albumin TSH 12.790 H Free T3 Index Urine WBC (Auto) Urine Creatinine Salicylates Acetaminophen Valproic Acid SARS-CoV-2 (PCR) 07/07/22 07/07/22 07/07/22 04:17 07:43 09:35 WBC RBC Hgb Hct MCV MCH RDW Plt Count [place] % (Auto) Seg Neutrophils % Seg Neutrophils # PT APTT D-Dimer ABG pH ABG pO2 377.3 H ABG HCO3 ABG O2 Saturation 99.6 H ABG Base Excess -2.5 L ABG Hemoglobin Oxyhemoglobin Sodium Potassium Chloride Carbon Dioxide BUN Creatinine Glucose POC Glucose Lactic Acid 6.30 H* Uric Acid 13.5 H Calcium Phosphorus Magnesium Ferritin Total Bilirubin AST Lactate Dehydrogenase Total Creatine Kinase C-Reactive Protein Total Protein Albumin TSH Free T3 Index Urine WBC (Auto) Urine Creatinine Salicylates Acetaminophen Valproic Acid SARS-CoV-2 (PCR) 07/07/22 07/07/22 07/07/22 15:00 16:00 16:00 WBC RBC Hgb Hct MCV MCH RDW Plt Count [place] % (Auto) Seg Neutrophils % Seg Neutrophils # PT APTT D-Dimer ABG pH ABG pO2 ABG HCO3 ABG O2 Saturation ABG Base Excess ABG Hemoglobin Oxyhemoglobin Sodium 166 H* Potassium Chloride 124.8 H Carbon Dioxide 20 L BUN 41 H Creatinine Glucose 157 H POC Glucose Lactic Acid 7.00 H* Uric Acid Calcium Phosphorus Magnesium Ferritin Total Bilirubin AST 81 H Lactate Dehydrogenase Total Creatine Kinase C-Reactive Protein Total Protein Albumin TSH Free T3 Index Urine WBC (Auto) Urine Creatinine Salicylates Acetaminophen Valproic Acid SARS-CoV-2 (PCR) Positive A 07/07/22 07/07/22 07/07/22 16:45 23:42 23:42 WBC RBC Hgb Hct MCV MCH RDW Plt Count [place] % (Auto) Seg Neutrophils % Seg Neutrophils # PT APTT D-Dimer ABG pH ABG pO2 ABG HCO3 ABG O2 Saturation ABG Base Excess ABG Hemoglobin Oxyhemoglobin Sodium 165 H* Potassium 3.0 L Chloride 122.8 H Carbon Dioxide BUN 38 H Creatinine Glucose 232 H POC Glucose Lactic Acid 5.60 H* Uric Acid Calcium Phosphorus Magnesium Ferritin Total Bilirubin AST Lactate Dehydrogenase Total Creatine Kinase C-Reactive Protein Total Protein Albumin TSH Free T3 Index Urine WBC (Auto) Urine Creatinine 92.9 H Salicylates Acetaminophen Valproic Acid SARS-CoV-2 (PCR) 07/07/22 07/07/22 07/08/22 Unknown Unknown 05:30 WBC RBC Hgb Hct MCV MCH RDW Plt Count [place] % (Auto) Seg Neutrophils % Seg Neutrophils # PT APTT D-Dimer ABG pH 7.553 H 7.473 H ABG pO2 61.7 L 121.7 H ABG HCO3 ABG O2 Saturation 94.7 L ABG Base Excess 4.3 H ABG Hemoglobin 18.0 H Oxyhemoglobin 93.1 L Sodium 163 H* Potassium 6.3 H* D Chloride 123.7 H Carbon Dioxide BUN 42 H Creatinine Glucose 169 H POC Glucose Lactic Acid Uric Acid Calcium Phosphorus Magnesium Ferritin Total Bilirubin AST Lactate Dehydrogenase Total Creatine Kinase C-Reactive Protein Total Protein Albumin TSH Free T3 Index Urine WBC (Auto) Urine Creatinine Salicylates Acetaminophen Valproic Acid SARS-CoV-2 (PCR) 07/08/22 07/08/22 07/08/22 05:36 11:21 14:54 WBC 11.1 H RBC Hgb Hct MCV 101 H MCH 33 H RDW Plt Count 69 L [place] % (Auto) Seg Neutrophils % 82.0 H Seg Neutrophils # 9.1 H PT APTT D-Dimer ABG pH ABG pO2 ABG HCO3 ABG O2 Saturation ABG Base Excess ABG Hemoglobin Oxyhemoglobin Sodium Potassium Chloride Carbon Dioxide BUN Creatinine Glucose POC Glucose 174 H 148 H Lactic Acid Uric Acid Calcium Phosphorus Magnesium Ferritin Total Bilirubin AST Lactate Dehydrogenase Total Creatine Kinase C-Reactive Protein Total Protein Albumin TSH Free T3 Index Urine WBC (Auto) Urine Creatinine Salicylates Acetaminophen Valproic Acid SARS-CoV-2 (PCR) 07/08/22 07/08/22 07/08/22 14:54 14:54 14:54 WBC RBC Hgb Hct MCV MCH RDW Plt Count [place] % (Auto) Seg Neutrophils % Seg Neutrophils # PT APTT D-Dimer ABG pH ABG pO2 ABG HCO3 ABG O2 Saturation ABG Base Excess ABG Hemoglobin Oxyhemoglobin Sodium 163 H* Potassium 2.9 L* Chloride 123.7 H Carbon Dioxide BUN 30 H Creatinine Glucose 161 H POC Glucose Lactic Acid 6.10 H* Uric Acid Calcium Phosphorus Magnesium Ferritin Total Bilirubin AST 69 H Lactate Dehydrogenase Total Creatine Kinase 2335 H C-Reactive Protein Total Protein 5.6 L D Albumin 3.1 L TSH Free T3 Index Urine WBC (Auto) Urine Creatinine Salicylates Acetaminophen Valproic Acid SARS-CoV-2 (PCR) 07/08/22 07/08/22 07/08/22 14:54 14:54 14:54 WBC RBC Hgb Hct MCV MCH RDW Plt Count [place] % (Auto) Seg Neutrophils % Seg Neutrophils # PT APTT D-Dimer 499.72 H ABG pH ABG pO2 ABG HCO3 ABG O2 Saturation ABG Base Excess ABG Hemoglobin Oxyhemoglobin Sodium Potassium Chloride Carbon Dioxide BUN Creatinine Glucose POC Glucose Lactic Acid Uric Acid Calcium Phosphorus Magnesium Ferritin 722.1 H Total Bilirubin AST Lactate Dehydrogenase 455 H Total Creatine Kinase C-Reactive Protein 1.60 H Total Protein Albumin TSH Free T3 Index Urine WBC (Auto) Urine Creatinine Salicylates Acetaminophen Valproic Acid SARS-CoV-2 (PCR) 07/08/22 07/08/22 07/09/22 19:13 19:53 00:09 WBC RBC Hgb Hct MCV MCH RDW Plt Count [place] % (Auto) Seg Neutrophils % Seg Neutrophils # PT APTT D-Dimer ABG pH ABG pO2 ABG HCO3 ABG O2 Saturation ABG Base Excess ABG Hemoglobin Oxyhemoglobin Sodium 160 H Potassium 3.5 L D Chloride 122.0 H Carbon Dioxide 20 L BUN 28 H Creatinine Glucose 151 H POC Glucose 138 H Lactic Acid 5.70 H* Uric Acid Calcium Phosphorus Magnesium Ferritin Total Bilirubin AST Lactate Dehydrogenase Total Creatine Kinase C-Reactive Protein Total Protein Albumin TSH Free T3 Index Urine WBC (Auto) Urine Creatinine Salicylates Acetaminophen Valproic Acid SARS-CoV-2 (PCR) 07/09/22 07/09/22 07/09/22 00:45 03:21 03:21 WBC RBC Hgb Hct MCV MCH RDW Plt Count [place] % (Auto) Seg Neutrophils % Seg Neutrophils # PT APTT D-Dimer ABG pH ABG pO2 ABG HCO3 ABG O2 Saturation ABG Base Excess ABG Hemoglobin Oxyhemoglobin Sodium 158 H 157 H Potassium Chloride 124.2 H 125.0 H Carbon Dioxide 20 L 20 L BUN 25 H 24 H Creatinine Glucose 147 H 169 H POC Glucose Lactic Acid 4.70 H* Uric Acid Calcium Phosphorus Magnesium Ferritin Total Bilirubin AST 81 H Lactate Dehydrogenase Total Creatine Kinase C-Reactive Protein Total Protein 5.7 L Albumin 2.8 L TSH Free T3 Index Urine WBC (Auto) Urine Creatinine Salicylates Acetaminophen Valproic Acid SARS-CoV-2 (PCR) 07/09/22 07/09/22 07/09/22 04:40 05:35 08:14 WBC RBC Hgb Hct MCV 102 H MCH 33 H RDW Plt Count 74 L [place] % (Auto) Seg Neutrophils % Seg Neutrophils # PT APTT D-Dimer ABG pH ABG pO2 172.1 H ABG HCO3 ABG O2 Saturation 99.1 H ABG Base Excess -2.8 L ABG Hemoglobin Oxyhemoglobin Sodium Potassium Chloride Carbon Dioxide BUN Creatinine Glucose POC Glucose 108 H Lactic Acid Uric Acid Calcium Phosphorus Magnesium Ferritin Total Bilirubin AST Lactate Dehydrogenase Total Creatine Kinase C-Reactive Protein Total Protein Albumin TSH Free T3 Index Urine WBC (Auto) Urine Creatinine Salicylates Acetaminophen Valproic Acid SARS-CoV-2 (PCR) 07/09/22 07/09/22 07/09/22 11:16 11:27 16:20 WBC RBC Hgb Hct MCV MCH RDW Plt Count [place] % (Auto) Seg Neutrophils % Seg Neutrophils # PT APTT D-Dimer ABG pH ABG pO2 ABG HCO3 ABG O2 Saturation ABG Base Excess ABG Hemoglobin Oxyhemoglobin Sodium 155 H Potassium Chloride 121.3 H Carbon Dioxide BUN 21 H Creatinine Glucose 170 H POC Glucose 173 H 190 H Lactic Acid Uric Acid Calcium Phosphorus Magnesium Ferritin Total Bilirubin AST Lactate Dehydrogenase Total Creatine Kinase C-Reactive Protein Total Protein Albumin TSH Free T3 Index Urine WBC (Auto) Urine Creatinine Salicylates Acetaminophen Valproic Acid SARS-CoV-2 (PCR) 07/09/22 07/10/22 07/10/22 17:16 00:04 04:21 WBC RBC Hgb Hct MCV MCH RDW Plt Count [place] % (Auto) Seg Neutrophils % Seg Neutrophils # PT APTT D-Dimer ABG pH ABG pO2 ABG HCO3 ABG O2 Saturation ABG Base Excess ABG Hemoglobin Oxyhemoglobin Sodium 149 H 150 H Potassium Chloride 115.6 H 115.0 H Carbon Dioxide BUN 18 H Creatinine 0.5 L Glucose 207 H 178 H POC Glucose 180 H Lactic Acid Uric Acid Calcium 7.9 L Phosphorus Magnesium Ferritin Total Bilirubin AST 89 H Lactate Dehydrogenase 431 H Total Creatine Kinase C-Reactive Protein Total Protein 4.9 L Albumin 2.5 L TSH Free T3 Index Urine WBC (Auto) Urine Creatinine Salicylates Acetaminophen Valproic Acid SARS-CoV-2 (PCR) 07/10/22 07/10/22 07/10/22 04:21 04:21 04:21 WBC 11.8 H RBC 3.52 L Hgb Hct MCV 99 H MCH 33 H RDW Plt Count 67 L [place] % (Auto) Seg Neutrophils % Seg Neutrophils # PT APTT D-Dimer 585.71 H ABG pH ABG pO2 ABG HCO3 ABG O2 Saturation ABG Base Excess ABG Hemoglobin Oxyhemoglobin Sodium Potassium Chloride Carbon Dioxide BUN Creatinine Glucose POC Glucose Lactic Acid Uric Acid Calcium Phosphorus Magnesium Ferritin 631.3 H Total Bilirubin AST Lactate Dehydrogenase Total Creatine Kinase C-Reactive Protein Total Protein Albumin TSH Free T3 Index Urine WBC (Auto) Urine Creatinine Salicylates Acetaminophen Valproic Acid SARS-CoV-2 (PCR) 07/10/22 07/10/22 07/10/22 04:21 04:55 05:26 WBC RBC Hgb Hct MCV MCH RDW Plt Count [place] % (Auto) Seg Neutrophils % Seg Neutrophils # PT APTT D-Dimer ABG pH ABG pO2 76.8 L ABG HCO3 ABG O2 Saturation ABG Base Excess ABG Hemoglobin 10.4 L Oxyhemoglobin 94.5 L Sodium Potassium Chloride Carbon Dioxide BUN Creatinine Glucose POC Glucose 147 H Lactic Acid 2.50 H* Uric Acid Calcium Phosphorus Magnesium Ferritin Total Bilirubin AST Lactate Dehydrogenase Total Creatine Kinase C-Reactive Protein Total Protein Albumin TSH Free T3 Index Urine WBC (Auto) Urine Creatinine Salicylates Acetaminophen Valproic Acid SARS-CoV-2 (PCR) 07/10/22 07/10/22 07/10/22 08:24 11:31 12:53 WBC RBC Hgb Hct MCV MCH RDW Plt Count [place] % (Auto) Seg Neutrophils % Seg Neutrophils # PT APTT D-Dimer ABG pH ABG pO2 ABG HCO3 ABG O2 Saturation ABG Base Excess ABG Hemoglobin Oxyhemoglobin Sodium Potassium Chloride 110.9 H Carbon Dioxide BUN Creatinine 0.5 L Glucose 200 H POC Glucose 166 H Lactic Acid 2.10 H* Uric Acid Calcium 8.3 L Phosphorus Magnesium Ferritin Total Bilirubin AST Lactate Dehydrogenase Total Creatine Kinase C-Reactive Protein Total Protein Albumin TSH Free T3 Index Urine WBC (Auto) Urine Creatinine Salicylates Acetaminophen Valproic Acid SARS-CoV-2 (PCR) 07/10/22 07/10/22 07/10/22 17:37 18:53 23:30 WBC RBC Hgb Hct MCV MCH RDW Plt Count [place] % (Auto) Seg Neutrophils % Seg Neutrophils # PT APTT D-Dimer ABG pH ABG pO2 ABG HCO3 ABG O2 Saturation ABG Base Excess ABG Hemoglobin Oxyhemoglobin Sodium Potassium Chloride 109.5 H 110.2 H Carbon Dioxide BUN Creatinine 0.5 L 0.5 L Glucose 243 H 208 H POC Glucose 237 H Lactic Acid Uric Acid Calcium 8.1 L 8.1 L Phosphorus Magnesium Ferritin Total Bilirubin AST Lactate Dehydrogenase Total Creatine Kinase C-Reactive Protein Total Protein Albumin TSH Free T3 Index Urine WBC (Auto) Urine Creatinine Salicylates Acetaminophen Valproic Acid SARS-CoV-2 (PCR) 07/10/22 07/11/22 07/11/22 23:57 04:00 04:15 WBC 11.2 H RBC Hgb Hct MCV 99 H MCH RDW Plt Count 73 L [place] % (Auto) Seg Neutrophils % Seg Neutrophils # PT APTT D-Dimer ABG pH ABG pO2 107.4 H ABG HCO3 ABG O2 Saturation ABG Base Excess ABG Hemoglobin Oxyhemoglobin Sodium Potassium Chloride Carbon Dioxide BUN Creatinine Glucose POC Glucose 195 H Lactic Acid Uric Acid Calcium Phosphorus Magnesium Ferritin Total Bilirubin AST Lactate Dehydrogenase Total Creatine Kinase C-Reactive Protein Total Protein Albumin TSH Free T3 Index Urine WBC (Auto) Urine Creatinine Salicylates Acetaminophen Valproic Acid SARS-CoV-2 (PCR) 07/11/22 07/11/22 07/11/22 05:40 05:40 06:06 WBC RBC Hgb Hct MCV MCH RDW Plt Count [place] % (Auto) Seg Neutrophils % Seg Neutrophils # PT APTT D-Dimer ABG pH ABG pO2 ABG HCO3 ABG O2 Saturation ABG Base Excess ABG Hemoglobin Oxyhemoglobin Sodium Potassium Chloride 109.8 H Carbon Dioxide BUN Creatinine 0.5 L Glucose 160 H POC Glucose 145 H Lactic Acid Uric Acid Calcium 8.3 L Phosphorus Magnesium Ferritin Total Bilirubin AST Lactate Dehydrogenase Total Creatine Kinase 1745 H C-Reactive Protein Total Protein Albumin TSH Free T3 Index Urine WBC (Auto) Urine Creatinine Salicylates Acetaminophen Valproic Acid SARS-CoV-2 (PCR) 07/11/22 07/11/22 07/11/22 11:55 11:59 17:44 WBC RBC Hgb Hct MCV MCH RDW Plt Count [place] % (Auto) Seg Neutrophils % Seg Neutrophils # PT APTT D-Dimer ABG pH ABG pO2 ABG HCO3 ABG O2 Saturation ABG Base Excess ABG Hemoglobin Oxyhemoglobin Sodium Potassium Chloride 107.8 H Carbon Dioxide BUN Creatinine 0.5 L Glucose 150 H POC Glucose 150 H 182 H Lactic Acid Uric Acid Calcium 8.2 L Phosphorus Magnesium Ferritin Total Bilirubin AST Lactate Dehydrogenase Total Creatine Kinase C-Reactive Protein Total Protein Albumin TSH Free T3 Index Urine WBC (Auto) Urine Creatinine Salicylates Acetaminophen Valproic Acid SARS-CoV-2 (PCR) 07/11/22 07/12/22 07/12/22 17:50 00:10 00:12 WBC RBC Hgb Hct MCV MCH RDW Plt Count [place] % (Auto) Seg Neutrophils % Seg Neutrophils # PT APTT D-Dimer ABG pH ABG pO2 ABG HCO3 ABG O2 Saturation ABG Base Excess ABG Hemoglobin Oxyhemoglobin Sodium Potassium Chloride 108.4 H Carbon Dioxide BUN Creatinine 0.5 L 0.4 L Glucose 191 H 163 H POC Glucose 154 H Lactic Acid Uric Acid Calcium 8.2 L 7.9 L Phosphorus Magnesium Ferritin Total Bilirubin AST Lactate Dehydrogenase Total Creatine Kinase C-Reactive Protein Total Protein Albumin TSH Free T3 Index Urine WBC (Auto) Urine Creatinine Salicylates Acetaminophen Valproic Acid SARS-CoV-2 (PCR) 07/12/22 07/12/22 07/12/22 04:00 04:00 04:00 WBC RBC Hgb Hct MCV MCH RDW Plt Count [place] % (Auto) Seg Neutrophils % Seg Neutrophils # PT APTT D-Dimer 925.80 H ABG pH ABG pO2 ABG HCO3 ABG O2 Saturation ABG Base Excess ABG Hemoglobin Oxyhemoglobin Sodium Potassium Chloride Carbon Dioxide BUN Creatinine Glucose POC Glucose Lactic Acid Uric Acid Calcium Phosphorus Magnesium Ferritin 519.5 H Total Bilirubin AST Lactate Dehydrogenase 444 H Total Creatine Kinase C-Reactive Protein Total Protein Albumin TSH Free T3 Index Urine WBC (Auto) Urine Creatinine Salicylates Acetaminophen Valproic Acid SARS-CoV-2 (PCR) 07/12/22 07/12/22 07/12/22 04:00 05:00 05:03 WBC 11.7 H RBC 3.33 L Hgb Hct MCV 99 H MCH 33 H RDW Plt Count 68 L [place] % (Auto) Seg Neutrophils % Seg Neutrophils # PT APTT D-Dimer ABG pH 7.453 H ABG pO2 107.9 H ABG HCO3 27.9 H ABG O2 Saturation ABG Base Excess 3.7 H ABG Hemoglobin 10.9 L Oxyhemoglobin Sodium Potassium Chloride Carbon Dioxide BUN Creatinine Glucose POC Glucose 174 H Lactic Acid Uric Acid Calcium Phosphorus Magnesium Ferritin Total Bilirubin AST Lactate Dehydrogenase Total Creatine Kinase C-Reactive Protein Total Protein Albumin TSH Free T3 Index Urine WBC (Auto) Urine Creatinine Salicylates Acetaminophen Valproic Acid SARS-CoV-2 (PCR) 07/12/22 07/12/22 07/12/22 12:15 17:18 23:14 WBC RBC Hgb Hct MCV MCH RDW Plt Count [place] % (Auto) Seg Neutrophils % Seg Neutrophils # PT APTT D-Dimer ABG pH ABG pO2 ABG HCO3 ABG O2 Saturation ABG Base Excess ABG Hemoglobin Oxyhemoglobin Sodium Potassium Chloride Carbon Dioxide BUN Creatinine Glucose POC Glucose 154 H 154 H 167 H Lactic Acid Uric Acid Calcium Phosphorus Magnesium Ferritin Total Bilirubin AST Lactate Dehydrogenase Total Creatine Kinase C-Reactive Protein Total Protein Albumin TSH Free T3 Index Urine WBC (Auto) Urine Creatinine Salicylates Acetaminophen Valproic Acid SARS-CoV-2 (PCR) 07/13/22 07/13/22 07/13/22 04:00 04:10 05:14 WBC RBC 3.17 L Hgb Hct MCV 98 H MCH 34 H RDW Plt Count 75 L [place] % (Auto) Seg Neutrophils % Seg Neutrophils # PT APTT D-Dimer ABG pH ABG pO2 ABG HCO3 ABG O2 Saturation ABG Base Excess ABG Hemoglobin Oxyhemoglobin Sodium Potassium Chloride Carbon Dioxide BUN Creatinine 0.4 L Glucose 136 H POC Glucose 140 H Lactic Acid Uric Acid Calcium Phosphorus Magnesium Ferritin Total Bilirubin AST Lactate Dehydrogenase Total Creatine Kinase C-Reactive Protein Total Protein Albumin TSH Free T3 Index Urine WBC (Auto) Urine Creatinine Salicylates Acetaminophen Valproic Acid SARS-CoV-2 (PCR) 07/13/22 07/13/22 07/13/22 12:03 14:25 17:19 WBC RBC Hgb Hct MCV MCH RDW Plt Count [place] % (Auto) Seg Neutrophils % Seg Neutrophils # PT APTT D-Dimer ABG pH 7.478 H ABG pO2 118.1 H ABG HCO3 28.2 H ABG O2 Saturation ABG Base Excess 4.5 H ABG Hemoglobin Oxyhemoglobin Sodium Potassium Chloride Carbon Dioxide BUN Creatinine Glucose POC Glucose 193 H 189 H Lactic Acid Uric Acid Calcium Phosphorus Magnesium Ferritin Total Bilirubin AST Lactate Dehydrogenase Total Creatine Kinase C-Reactive Protein Total Protein Albumin TSH Free T3 Index Urine WBC (Auto) Urine Creatinine Salicylates Acetaminophen Valproic Acid SARS-CoV-2 (PCR) 07/13/22 07/13/22 07/14/22 23:52 Unknown 06:18 WBC RBC Hgb Hct MCV MCH RDW Plt Count [place] % (Auto) Seg Neutrophils % Seg Neutrophils # PT APTT D-Dimer ABG pH 7.465 H ABG pO2 128.8 H ABG HCO3 29.0 H ABG O2 Saturation ABG Base Excess 4.9 H ABG Hemoglobin 10.3 L Oxyhemoglobin Sodium Potassium Chloride Carbon Dioxide BUN Creatinine Glucose POC Glucose 174 H 167 H Lactic Acid Uric Acid Calcium Phosphorus Magnesium Ferritin Total Bilirubin AST Lactate Dehydrogenase Total Creatine Kinase C-Reactive Protein Total Protein Albumin TSH Free T3 Index Urine WBC (Auto) Urine Creatinine Salicylates Acetaminophen Valproic Acid SARS-CoV-2 (PCR) 07/14/22 07/14/22 07/15/22 11:34 17:20 00:25 WBC RBC Hgb Hct MCV MCH RDW Plt Count [place] % (Auto) Seg Neutrophils % Seg Neutrophils # PT APTT D-Dimer ABG pH ABG pO2 ABG HCO3 ABG O2 Saturation ABG Base Excess ABG Hemoglobin Oxyhemoglobin Sodium Potassium Chloride Carbon Dioxide BUN Creatinine Glucose POC Glucose 187 H 221 H 172 H Lactic Acid Uric Acid Calcium Phosphorus Magnesium Ferritin Total Bilirubin AST Lactate Dehydrogenase Total Creatine Kinase C-Reactive Protein Total Protein Albumin TSH Free T3 Index Urine WBC (Auto) Urine Creatinine Salicylates Acetaminophen Valproic Acid SARS-CoV-2 (PCR) 07/15/22 07/15/22 07/15/22 04:00 04:00 05:49 WBC 11.4 H RBC 3.13 L Hgb Hct MCV 98 H MCH 33 H RDW Plt Count 98 L [place] % (Auto) Seg Neutrophils % Seg Neutrophils # PT APTT D-Dimer ABG pH ABG pO2 ABG HCO3 ABG O2 Saturation ABG Base Excess ABG Hemoglobin Oxyhemoglobin Sodium Potassium Chloride Carbon Dioxide 34 H BUN Creatinine 0.4 L Glucose 126 H POC Glucose 143 H Lactic Acid Uric Acid Calcium Phosphorus Magnesium Ferritin Total Bilirubin AST Lactate Dehydrogenase Total Creatine Kinase C-Reactive Protein Total Protein Albumin TSH Free T3 Index Urine WBC (Auto) Urine Creatinine Salicylates Acetaminophen Valproic Acid SARS-CoV-2 (PCR) 07/15/22 07/15/22 07/16/22 11:19 16:16 00:19 WBC RBC Hgb Hct MCV MCH RDW Plt Count [place] % (Auto) Seg Neutrophils % Seg Neutrophils # PT APTT D-Dimer ABG pH ABG pO2 ABG HCO3 ABG O2 Saturation ABG Base Excess ABG Hemoglobin Oxyhemoglobin Sodium Potassium Chloride Carbon Dioxide BUN Creatinine Glucose POC Glucose 158 H 227 H 153 H Lactic Acid Uric Acid Calcium Phosphorus Magnesium Ferritin Total Bilirubin AST Lactate Dehydrogenase Total Creatine Kinase C-Reactive Protein Total Protein Albumin TSH Free T3 Index Urine WBC (Auto) Urine Creatinine Salicylates Acetaminophen Valproic Acid SARS-CoV-2 (PCR) 07/16/22 07/16/22 07/16/22 04:20 04:20 11:28 WBC RBC 3.16 L Hgb Hct MCV 99 H MCH 33 H RDW Plt Count 101 L [place] % (Auto) Seg Neutrophils % Seg Neutrophils # PT APTT D-Dimer ABG pH ABG pO2 ABG HCO3 ABG O2 Saturation ABG Base Excess ABG Hemoglobin Oxyhemoglobin Sodium Potassium Chloride Carbon Dioxide 36 H BUN 18 H Creatinine 0.4 L Glucose 139 H POC Glucose 158 H Lactic Acid Uric Acid Calcium Phosphorus Magnesium Ferritin Total Bilirubin AST Lactate Dehydrogenase Total Creatine Kinase C-Reactive Protein Total Protein Albumin TSH Free T3 Index Urine WBC (Auto) Urine Creatinine Salicylates Acetaminophen Valproic Acid SARS-CoV-2 (PCR) 07/16/22 07/17/22 07/17/22 16:30 00:07 05:46 WBC RBC Hgb Hct MCV MCH RDW Plt Count [place] % (Auto) Seg Neutrophils % Seg Neutrophils # PT APTT D-Dimer ABG pH ABG pO2 ABG HCO3 ABG O2 Saturation ABG Base Excess ABG Hemoglobin Oxyhemoglobin Sodium Potassium Chloride Carbon Dioxide BUN Creatinine Glucose POC Glucose 201 H 139 H 123 H Lactic Acid Uric Acid Calcium Phosphorus Magnesium Ferritin Total Bilirubin AST Lactate Dehydrogenase Total Creatine Kinase C-Reactive Protein Total Protein Albumin TSH Free T3 Index Urine WBC (Auto) Urine Creatinine Salicylates Acetaminophen Valproic Acid SARS-CoV-2 (PCR) 07/17/22 07/17/22 07/17/22 13:30 17:51 23:49 WBC RBC Hgb Hct MCV MCH RDW Plt Count [place] % (Auto) Seg Neutrophils % Seg Neutrophils # PT APTT D-Dimer ABG pH ABG pO2 ABG HCO3 ABG O2 Saturation ABG Base Excess ABG Hemoglobin Oxyhemoglobin Sodium Potassium Chloride Carbon Dioxide BUN Creatinine Glucose POC Glucose 185 H 219 H 133 H Lactic Acid Uric Acid Calcium Phosphorus Magnesium Ferritin Total Bilirubin AST Lactate Dehydrogenase Total Creatine Kinase C-Reactive Protein Total Protein Albumin TSH Free T3 Index Urine WBC (Auto) Urine Creatinine Salicylates Acetaminophen Valproic Acid SARS-CoV-2 (PCR) 07/18/22 07/18/22 07/18/22 04:00 04:00 04:00 WBC 12.2 H RBC 3.34 L Hgb Hct MCV 100 H MCH 33 H RDW Plt Count 113 L [place] % (Auto) Seg Neutrophils % 77.3 H Seg Neutrophils # 9.4 H PT APTT D-Dimer ABG pH 7.508 H ABG pO2 115.9 H ABG HCO3 33.4 H ABG O2 Saturation ABG Base Excess 9.4 H ABG Hemoglobin 11.7 L Oxyhemoglobin Sodium Potassium Chloride Carbon Dioxide 35 H BUN Creatinine 0.4 L Glucose 130 H POC Glucose Lactic Acid Uric Acid Calcium Phosphorus Magnesium Ferritin Total Bilirubin AST Lactate Dehydrogenase Total Creatine Kinase C-Reactive Protein Total Protein Albumin TSH Free T3 Index Urine WBC (Auto) Urine Creatinine Salicylates Acetaminophen Valproic Acid SARS-CoV-2 (PCR) 07/18/22 07/18/22 07/18/22 04:42 12:31 12:31 WBC RBC Hgb Hct MCV MCH RDW Plt Count [place] % (Auto) Seg Neutrophils % Seg Neutrophils # PT APTT D-Dimer ABG pH ABG pO2 ABG HCO3 ABG O2 Saturation ABG Base Excess ABG Hemoglobin Oxyhemoglobin Sodium Potassium Chloride Carbon Dioxide BUN Creatinine Glucose POC Glucose 134 H Lactic Acid Uric Acid Calcium Phosphorus Magnesium Ferritin Total Bilirubin AST Lactate Dehydrogenase Total Creatine Kinase C-Reactive Protein Total Protein Albumin TSH 9.750 H Free T3 Index 1.7 L Urine WBC (Auto) Urine Creatinine Salicylates Acetaminophen Valproic Acid SARS-CoV-2 (PCR) 07/18/22 07/18/22 07/19/22 12:33 17:39 00:43 WBC RBC Hgb Hct MCV MCH RDW Plt Count [place] % (Auto) Seg Neutrophils % Seg Neutrophils # PT APTT D-Dimer ABG pH ABG pO2 ABG HCO3 ABG O2 Saturation ABG Base Excess ABG Hemoglobin Oxyhemoglobin Sodium Potassium Chloride Carbon Dioxide BUN Creatinine Glucose POC Glucose 172 H 164 H 132 H Lactic Acid Uric Acid Calcium Phosphorus Magnesium Ferritin Total Bilirubin AST Lactate Dehydrogenase Total Creatine Kinase C-Reactive Protein Total Protein Albumin TSH Free T3 Index Urine WBC (Auto) Urine Creatinine Salicylates Acetaminophen Valproic Acid SARS-CoV-2 (PCR) 07/19/22 07/19/22 07/19/22 05:08 12:30 17:42 WBC RBC Hgb Hct MCV MCH RDW Plt Count [place] % (Auto) Seg Neutrophils % Seg Neutrophils # PT APTT D-Dimer ABG pH ABG pO2 ABG HCO3 ABG O2 Saturation ABG Base Excess ABG Hemoglobin Oxyhemoglobin Sodium Potassium Chloride Carbon Dioxide BUN Creatinine Glucose POC Glucose 143 H 159 H 139 H Lactic Acid Uric Acid Calcium Phosphorus Magnesium Ferritin Total Bilirubin AST Lactate Dehydrogenase Total Creatine Kinase C-Reactive Protein Total Protein Albumin TSH Free T3 Index Urine WBC (Auto) Urine Creatinine Salicylates Acetaminophen Valproic Acid SARS-CoV-2 (PCR) 07/19/22 07/20/22 07/20/22 23:26 05:30 06:03 WBC RBC Hgb Hct MCV MCH RDW Plt Count [place] % (Auto) Seg Neutrophils % Seg Neutrophils # PT APTT D-Dimer ABG pH 7.503 H ABG pO2 99.1 H ABG HCO3 32.8 H ABG O2 Saturation ABG Base Excess 8.8 H ABG Hemoglobin 9.7 L Oxyhemoglobin Sodium Potassium Chloride Carbon Dioxide BUN Creatinine Glucose POC Glucose 144 H 146 H Lactic Acid Uric Acid Calcium Phosphorus Magnesium Ferritin Total Bilirubin AST Lactate Dehydrogenase Total Creatine Kinase C-Reactive Protein Total Protein Albumin TSH Free T3 Index Urine WBC (Auto) Urine Creatinine Salicylates Acetaminophen Valproic Acid SARS-CoV-2 (PCR) 07/20/22 07/20/22 07/20/22 12:15 17:24 23:44 WBC RBC Hgb Hct MCV MCH RDW Plt Count [place] % (Auto) Seg Neutrophils % Seg Neutrophils # PT APTT D-Dimer ABG pH ABG pO2 ABG HCO3 ABG O2 Saturation ABG Base Excess ABG Hemoglobin Oxyhemoglobin Sodium Potassium Chloride Carbon Dioxide BUN Creatinine Glucose POC Glucose 138 H 135 H 131 H Lactic Acid Uric Acid Calcium Phosphorus Magnesium Ferritin Total Bilirubin AST Lactate Dehydrogenase Total Creatine Kinase C-Reactive Protein Total Protein Albumin TSH Free T3 Index Urine WBC (Auto) Urine Creatinine Salicylates Acetaminophen Valproic Acid SARS-CoV-2 (PCR) 07/21/22 07/21/22 07/21/22 04:00 04:00 05:13 WBC RBC 2.92 L Hgb 9.6 L Hct 29.0 L MCV 99 H MCH 33 H RDW 15.6 H Plt Count 136 L [place] % (Auto) Seg Neutrophils % Seg Neutrophils # PT APTT D-Dimer ABG pH ABG pO2 ABG HCO3 ABG O2 Saturation ABG Base Excess ABG Hemoglobin Oxyhemoglobin Sodium Potassium Chloride Carbon Dioxide 32 H BUN Creatinine 0.3 L Glucose 133 H POC Glucose 142 H Lactic Acid Uric Acid Calcium 8.3 L Phosphorus Magnesium Ferritin Total Bilirubin AST Lactate Dehydrogenase Total Creatine Kinase C-Reactive Protein Total Protein Albumin TSH Free T3 Index Urine WBC (Auto) Urine Creatinine Salicylates Acetaminophen Valproic Acid SARS-CoV-2 (PCR) 07/21/22 07/21/22 07/21/22 06:16 11:48 16:08 WBC RBC Hgb Hct MCV MCH RDW Plt Count [place] % (Auto) Seg Neutrophils % Seg Neutrophils # PT APTT D-Dimer ABG pH ABG pO2 ABG HCO3 ABG O2 Saturation ABG Base Excess ABG Hemoglobin Oxyhemoglobin Sodium Potassium Chloride Carbon Dioxide BUN Creatinine Glucose POC Glucose 149 H 124 H 139 H Lactic Acid Uric Acid Calcium Phosphorus Magnesium Ferritin Total Bilirubin AST Lactate Dehydrogenase Total Creatine Kinase C-Reactive Protein Total Protein Albumin TSH Free T3 Index Urine WBC (Auto) Urine Creatinine Salicylates Acetaminophen Valproic Acid SARS-CoV-2 (PCR) 07/22/22 07/22/22 07/22/22 00:05 04:00 04:13 WBC RBC 2.90 L Hgb 9.5 L Hct 28.9 L MCV 100 H MCH 33 H RDW 15.5 H Plt Count [place] % (Auto) 10.0 H Seg Neutrophils % Seg Neutrophils # PT APTT D-Dimer ABG pH ABG pO2 ABG HCO3 ABG O2 Saturation ABG Base Excess ABG Hemoglobin Oxyhemoglobin Sodium Potassium Chloride Carbon Dioxide 31 H BUN Creatinine 0.4 L Glucose 105 H POC Glucose 143 H Lactic Acid Uric Acid Calcium Phosphorus Magnesium Ferritin Total Bilirubin AST Lactate Dehydrogenase Total Creatine Kinase C-Reactive Protein Total Protein Albumin TSH Free T3 Index Urine WBC (Auto) Urine Creatinine Salicylates Acetaminophen Valproic Acid SARS-CoV-2 (PCR) 07/22/22 07/23/22 07/23/22 11:03 04:25 04:25 WBC RBC 2.71 L Hgb 9.1 L Hct 27.0 L MCV 100 H MCH 33 H RDW 15.4 H Plt Count [place] % (Auto) Seg Neutrophils % Seg Neutrophils # PT APTT D-Dimer ABG pH ABG pO2 ABG HCO3 ABG O2 Saturation ABG Base Excess ABG Hemoglobin Oxyhemoglobin Sodium Potassium Chloride Carbon Dioxide 33 H BUN Creatinine 0.4 L Glucose POC Glucose 111 H Lactic Acid Uric Acid Calcium 8.3 L Phosphorus Magnesium Ferritin Total Bilirubin AST Lactate Dehydrogenase Total Creatine Kinase C-Reactive Protein Total Protein Albumin TSH Free T3 Index Urine WBC (Auto) Urine Creatinine Salicylates Acetaminophen Valproic Acid SARS-CoV-2 (PCR) 07/23/22 07/23/22 07/23/22 06:14 11:09 23:34 WBC RBC Hgb Hct MCV MCH RDW Plt Count [place] % (Auto) Seg Neutrophils % Seg Neutrophils # PT APTT D-Dimer ABG pH ABG pO2 ABG HCO3 ABG O2 Saturation ABG Base Excess ABG Hemoglobin Oxyhemoglobin Sodium Potassium Chloride Carbon Dioxide BUN Creatinine Glucose POC Glucose 106 H 117 H 115 H Lactic Acid Uric Acid Calcium Phosphorus Magnesium Ferritin Total Bilirubin AST Lactate Dehydrogenase Total Creatine Kinase C-Reactive Protein Total Protein Albumin TSH Free T3 Index Urine WBC (Auto) Urine Creatinine Salicylates Acetaminophen Valproic Acid SARS-CoV-2 (PCR) 07/24/22 07/24/22 07/24/22 05:24 11:25 16:52 WBC RBC Hgb Hct MCV MCH RDW Plt Count [place] % (Auto) Seg Neutrophils % Seg Neutrophils # PT APTT D-Dimer ABG pH ABG pO2 ABG HCO3 ABG O2 Saturation ABG Base Excess ABG Hemoglobin Oxyhemoglobin Sodium Potassium Chloride Carbon Dioxide BUN Creatinine Glucose POC Glucose 122 H 139 H 126 H Lactic Acid Uric Acid Calcium Phosphorus Magnesium Ferritin Total Bilirubin AST Lactate Dehydrogenase Total Creatine Kinase C-Reactive Protein Total Protein Albumin TSH Free T3 Index Urine WBC (Auto) Urine Creatinine Salicylates Acetaminophen Valproic Acid SARS-CoV-2 (PCR) 07/25/22 07/25/22 07/25/22 00:10 04:22 04:22 WBC RBC 2.86 L Hgb 9.4 L Hct 28.5 L MCV 100 H MCH 33 H RDW 15.4 H Plt Count [place] % (Auto) Seg Neutrophils % Seg Neutrophils # PT APTT D-Dimer ABG pH ABG pO2 ABG HCO3 ABG O2 Saturation ABG Base Excess ABG Hemoglobin Oxyhemoglobin Sodium Potassium Chloride Carbon Dioxide 31 H BUN Creatinine 0.3 L Glucose 135 H POC Glucose 131 H Lactic Acid Uric Acid Calcium 8.0 L Phosphorus 2.20 L Magnesium Ferritin Total Bilirubin AST Lactate Dehydrogenase Total Creatine Kinase C-Reactive Protein Total Protein Albumin TSH Free T3 Index Urine WBC (Auto) Urine Creatinine Salicylates Acetaminophen Valproic Acid SARS-CoV-2 (PCR) 07/25/22 07/25/22 07/25/22 05:17 11:49 17:27 WBC RBC Hgb Hct MCV MCH RDW Plt Count [place] % (Auto) Seg Neutrophils % Seg Neutrophils # PT APTT D-Dimer ABG pH ABG pO2 ABG HCO3 ABG O2 Saturation ABG Base Excess ABG Hemoglobin Oxyhemoglobin Sodium Potassium Chloride Carbon Dioxide BUN Creatinine Glucose POC Glucose 155 H 140 H 123 H Lactic Acid Uric Acid Calcium Phosphorus Magnesium Ferritin Total Bilirubin AST Lactate Dehydrogenase Total Creatine Kinase C-Reactive Protein Total Protein Albumin TSH Free T3 Index Urine WBC (Auto) Urine Creatinine Salicylates Acetaminophen Valproic Acid SARS-CoV-2 (PCR) 07/25/22 07/26/22 07/26/22 23:57 06:00 06:08 WBC RBC Hgb Hct MCV MCH RDW Plt Count [place] % (Auto) Seg Neutrophils % Seg Neutrophils # PT APTT D-Dimer ABG pH ABG pO2 ABG HCO3 ABG O2 Saturation ABG Base Excess ABG Hemoglobin Oxyhemoglobin Sodium Potassium 3.5 L Chloride Carbon Dioxide 32 H BUN Creatinine 0.3 L Glucose 116 H POC Glucose 124 H 134 H Lactic Acid Uric Acid Calcium 7.9 L Phosphorus Magnesium Ferritin Total Bilirubin AST Lactate Dehydrogenase Total Creatine Kinase C-Reactive Protein Total Protein Albumin TSH Free T3 Index Urine WBC (Auto) Urine Creatinine Salicylates Acetaminophen Valproic Acid SARS-CoV-2 (PCR) 07/26/22 07/26/22 07/26/22 13:38 17:22 23:22 WBC RBC Hgb Hct MCV MCH RDW Plt Count [place] % (Auto) Seg Neutrophils % Seg Neutrophils # PT APTT D-Dimer ABG pH ABG pO2 ABG HCO3 ABG O2 Saturation ABG Base Excess ABG Hemoglobin Oxyhemoglobin Sodium Potassium Chloride Carbon Dioxide BUN Creatinine Glucose POC Glucose 112 H 123 H 117 H Lactic Acid Uric Acid Calcium Phosphorus Magnesium Ferritin Total Bilirubin AST Lactate Dehydrogenase Total Creatine Kinase C-Reactive Protein Total Protein Albumin TSH Free T3 Index Urine WBC (Auto) Urine Creatinine Salicylates Acetaminophen Valproic Acid SARS-CoV-2 (PCR) 07/26/22 07/27/22 07/27/22 Unknown 05:54 10:00 WBC RBC 2.61 L Hgb 8.8 L Hct 26.2 L MCV 100 H MCH 34 H RDW 15.6 H Plt Count [place] % (Auto) Seg Neutrophils % Seg Neutrophils # PT APTT D-Dimer ABG pH ABG pO2 ABG HCO3 ABG O2 Saturation ABG Base Excess ABG Hemoglobin Oxyhemoglobin Sodium Potassium Chloride Carbon Dioxide BUN Creatinine 0.3 L Glucose 125 H POC Glucose 124 H Lactic Acid Uric Acid Calcium 8.3 L Phosphorus 1.90 L Magnesium Ferritin Total Bilirubin AST Lactate Dehydrogenase Total Creatine Kinase C-Reactive Protein Total Protein Albumin TSH Free T3 Index Urine WBC (Auto) Urine Creatinine Salicylates Acetaminophen Valproic Acid SARS-CoV-2 (PCR) 07/27/22 07/27/22 07/27/22 11:06 18:32 23:20 WBC RBC Hgb Hct MCV MCH RDW Plt Count [place] % (Auto) Seg Neutrophils % Seg Neutrophils # PT APTT D-Dimer ABG pH ABG pO2 ABG HCO3 ABG O2 Saturation ABG Base Excess ABG Hemoglobin Oxyhemoglobin Sodium Potassium Chloride Carbon Dioxide BUN Creatinine Glucose POC Glucose 133 H 119 H 110 H Lactic Acid Uric Acid Calcium Phosphorus Magnesium Ferritin Total Bilirubin AST Lactate Dehydrogenase Total Creatine Kinase C-Reactive Protein Total Protein Albumin TSH Free T3 Index Urine WBC (Auto) Urine Creatinine Salicylates Acetaminophen Valproic Acid SARS-CoV-2 (PCR) 07/28/22 07/28/22 07/29/22 05:37 11:13 04:05 WBC RBC 2.64 L Hgb 8.8 L Hct 26.6 L MCV 101 H MCH 33 H RDW 16.4 H Plt Count [place] % (Auto) Seg Neutrophils % Seg Neutrophils # PT APTT D-Dimer ABG pH ABG pO2 ABG HCO3 ABG O2 Saturation ABG Base Excess ABG Hemoglobin Oxyhemoglobin Sodium Potassium Chloride Carbon Dioxide BUN Creatinine Glucose POC Glucose 127 H 115 H Lactic Acid Uric Acid Calcium Phosphorus Magnesium Ferritin Total Bilirubin AST Lactate Dehydrogenase Total Creatine Kinase C-Reactive Protein Total Protein Albumin TSH Free T3 Index Urine WBC (Auto) Urine Creatinine Salicylates Acetaminophen Valproic Acid SARS-CoV-2 (PCR) 07/29/22 07/29/22 07/29/22 04:05 05:20 11:06 WBC RBC Hgb Hct MCV MCH RDW Plt Count [place] % (Auto) Seg Neutrophils % Seg Neutrophils # PT APTT D-Dimer ABG pH ABG pO2 ABG HCO3 ABG O2 Saturation ABG Base Excess ABG Hemoglobin Oxyhemoglobin Sodium Potassium Chloride Carbon Dioxide 33 H BUN Creatinine 0.3 L Glucose 115 H POC Glucose 119 H 125 H Lactic Acid Uric Acid Calcium 8.2 L Phosphorus Magnesium Ferritin Total Bilirubin AST Lactate Dehydrogenase Total Creatine Kinase C-Reactive Protein Total Protein Albumin TSH Free T3 Index Urine WBC (Auto) Urine Creatinine Salicylates Acetaminophen Valproic Acid SARS-CoV-2 (PCR) 07/29/22 07/29/22 07/30/22 16:08 23:41 06:03 WBC RBC Hgb Hct MCV MCH RDW Plt Count [place] % (Auto) Seg Neutrophils % Seg Neutrophils # PT APTT D-Dimer ABG pH ABG pO2 ABG HCO3 ABG O2 Saturation ABG Base Excess ABG Hemoglobin Oxyhemoglobin Sodium Potassium Chloride Carbon Dioxide BUN Creatinine Glucose POC Glucose 111 H 120 H 110 H Lactic Acid Uric Acid Calcium Phosphorus Magnesium Ferritin Total Bilirubin AST Lactate Dehydrogenase Total Creatine Kinase C-Reactive Protein Total Protein Albumin TSH Free T3 Index Urine WBC (Auto) Urine Creatinine Salicylates Acetaminophen Valproic Acid SARS-CoV-2 (PCR) 07/30/22 07/30/22 07/30/22 11:18 14:15 14:15 WBC RBC 2.55 L Hgb 8.5 L Hct 25.7 L MCV 101 H MCH 33 H RDW 16.5 H Plt Count [place] % (Auto) Seg Neutrophils % Seg Neutrophils # PT APTT D-Dimer ABG pH ABG pO2 ABG HCO3 ABG O2 Saturation ABG Base Excess ABG Hemoglobin Oxyhemoglobin Sodium Potassium Chloride Carbon Dioxide BUN Creatinine 0.3 L Glucose POC Glucose 111 H Lactic Acid Uric Acid Calcium Phosphorus Magnesium Ferritin Total Bilirubin AST Lactate Dehydrogenase Total Creatine Kinase C-Reactive Protein Total Protein Albumin TSH Free T3 Index Urine WBC (Auto) Urine Creatinine Salicylates Acetaminophen Valproic Acid SARS-CoV-2 (PCR) 07/30/22 07/31/22 07/31/22 16:30 04:45 04:45 WBC RBC 2.67 L Hgb 8.9 L Hct 26.9 L MCV 101 H MCH 33 H RDW 17.0 H Plt Count [place] % (Auto) Seg Neutrophils % Seg Neutrophils # PT APTT D-Dimer ABG pH ABG pO2 ABG HCO3 ABG O2 Saturation ABG Base Excess ABG Hemoglobin Oxyhemoglobin Sodium Potassium Chloride Carbon Dioxide 32 H BUN Creatinine 0.3 L Glucose 108 H POC Glucose 111 H Lactic Acid Uric Acid Calcium Phosphorus Magnesium Ferritin Total Bilirubin AST Lactate Dehydrogenase Total Creatine Kinase C-Reactive Protein Total Protein Albumin TSH Free T3 Index Urine WBC (Auto) Urine Creatinine Salicylates Acetaminophen Valproic Acid SARS-CoV-2 (PCR) 07/31/22 07/31/22 07/31/22 05:21 11:33 17:57 WBC RBC Hgb Hct MCV MCH RDW Plt Count [place] % (Auto) Seg Neutrophils % Seg Neutrophils # PT APTT D-Dimer ABG pH ABG pO2 ABG HCO3 ABG O2 Saturation ABG Base Excess ABG Hemoglobin Oxyhemoglobin Sodium Potassium Chloride Carbon Dioxide BUN Creatinine Glucose POC Glucose 114 H 112 H 115 H Lactic Acid Uric Acid Calcium Phosphorus Magnesium Ferritin Total Bilirubin AST Lactate Dehydrogenase Total Creatine Kinase C-Reactive Protein Total Protein Albumin TSH Free T3 Index Urine WBC (Auto) Urine Creatinine Salicylates Acetaminophen Valproic Acid SARS-CoV-2 (PCR) 08/01/22 08/01/22 08/01/22 00:24 04:58 06:05 WBC RBC 2.72 L Hgb 9.0 L Hct 27.7 L MCV 102 H MCH 33 H RDW 17.4 H Plt Count [place] % (Auto) Seg Neutrophils % Seg Neutrophils # PT APTT D-Dimer ABG pH ABG pO2 ABG HCO3 ABG O2 Saturation ABG Base Excess ABG Hemoglobin Oxyhemoglobin Sodium Potassium Chloride Carbon Dioxide BUN Creatinine Glucose POC Glucose 108 H 121 H Lactic Acid Uric Acid Calcium Phosphorus Magnesium Ferritin Total Bilirubin AST Lactate Dehydrogenase Total Creatine Kinase C-Reactive Protein Total Protein Albumin TSH Free T3 Index Urine WBC (Auto) Urine Creatinine Salicylates Acetaminophen Valproic Acid SARS-CoV-2 (PCR) 08/01/22 08/01/22 08/02/22 11:48 18:30 00:26 WBC RBC Hgb Hct MCV MCH RDW Plt Count [place] % (Auto) Seg Neutrophils % Seg Neutrophils # PT APTT D-Dimer ABG pH ABG pO2 ABG HCO3 ABG O2 Saturation ABG Base Excess ABG Hemoglobin Oxyhemoglobin Sodium Potassium Chloride Carbon Dioxide BUN Creatinine Glucose POC Glucose 123 H 118 H 106 H Lactic Acid Uric Acid Calcium Phosphorus Magnesium Ferritin Total Bilirubin AST Lactate Dehydrogenase Total Creatine Kinase C-Reactive Protein Total Protein Albumin TSH Free T3 Index Urine WBC (Auto) Urine Creatinine Salicylates Acetaminophen Valproic Acid SARS-CoV-2 (PCR) 08/02/22 08/02/22 08/02/22 05:00 05:57 13:23 WBC RBC Hgb Hct MCV MCH RDW Plt Count [place] % (Auto) Seg Neutrophils % Seg Neutrophils # PT APTT D-Dimer ABG pH ABG pO2 ABG HCO3 ABG O2 Saturation ABG Base Excess ABG Hemoglobin Oxyhemoglobin Sodium Potassium Chloride Carbon Dioxide BUN Creatinine 0.4 L Glucose POC Glucose 119 H 112 H Lactic Acid Uric Acid Calcium Phosphorus Magnesium Ferritin Total Bilirubin AST Lactate Dehydrogenase Total Creatine Kinase C-Reactive Protein Total Protein Albumin TSH Free T3 Index Urine WBC (Auto) Urine Creatinine Salicylates Acetaminophen Valproic Acid SARS-CoV-2 (PCR) 08/02/22 08/02/22 08/03/22 17:29 23:28 06:27 WBC RBC Hgb Hct MCV MCH RDW Plt Count [place] % (Auto) Seg Neutrophils % Seg Neutrophils # PT APTT D-Dimer ABG pH ABG pO2 ABG HCO3 ABG O2 Saturation ABG Base Excess ABG Hemoglobin Oxyhemoglobin Sodium Potassium Chloride Carbon Dioxide BUN Creatinine Glucose POC Glucose 120 H 108 H 140 H Lactic Acid Uric Acid Calcium Phosphorus Magnesium Ferritin Total Bilirubin AST Lactate Dehydrogenase Total Creatine Kinase C-Reactive Protein Total Protein Albumin TSH Free T3 Index Urine WBC (Auto) Urine Creatinine Salicylates Acetaminophen Valproic Acid SARS-CoV-2 (PCR) 08/03/22 10:08 WBC RBC Hgb Hct MCV MCH RDW Plt Count [place] % (Auto) Seg Neutrophils % Seg Neutrophils # PT APTT D-Dimer ABG pH ABG pO2 ABG HCO3 ABG O2 Saturation ABG Base Excess ABG Hemoglobin Oxyhemoglobin Sodium Potassium Chloride Carbon Dioxide BUN Creatinine Glucose POC Glucose 113 H Lactic Acid Uric Acid Calcium Phosphorus Magnesium Ferritin Total Bilirubin AST Lactate Dehydrogenase Total Creatine Kinase C-Reactive Protein Total Protein Albumin TSH Free T3 Index Urine WBC (Auto) Urine Creatinine Salicylates Acetaminophen Valproic Acid SARS-CoV-2 (PCR)
--- NOTE | 2022-08-03 13:02 | Progress Note ---
<GOSIAJermaineCHUY - Last Filed: 08/03/22 13:01> Assessment and Plan Assessment and plan: This is a 76-year-old female with CVA, pulmonary embolism, hypothyroidism and JUJU admitted with electrolyte imbalances, hypoxic respiratory failure and COVID- 19 pneumonia Neuro: Acute metabolic encephalopathy, h/o CVA with hemiplegia, dysphagia, aphasia, dementia -Neurology consulted, appreciate recommendations -Reorientation as needed -Maintain sleep-wake cycle -Resume home Lipitor -As needed analgesia -CT head shows no acute intracranial hemorrhage, multiple chronic appearing infarcts including left MCA distribution, left cerebral hemisphere and within the right basal ganglia -Depakene -EEG compatible with significant diffuse encephalopathy -MRI shows no acute findings, remote infarction of the left frontal lobe and left cerebellum, moderate sequela of chronic microvascular disease Cardiac: h/o HLD -Resume home Lipitor -Blood pressure monitoring per protocol Respiratory: Acute hypoxic respiratory failure, h/o JUJU, pulmonary embolism -CCM consulted, appreciate recommendations -Intubated on 07/07 with a 7.50 ETT at 24 the lips -07/22 s/p Trach/PEG -A.m. vent settings: AC rate 10, tidal and 400, PEEP 6, FiO2 28 -See RT notes for titration -A.m. ABG and CXR noted -VAP bundle -SPO2 monitoring -Eliquis restarted GI: NAD -PPI -07/22 s/p PEG -NTR consulted for tube feedings -BR: Senokot-S : Rhabdomyolysis -Nephrology consulted, appreciate recommendations -Monitor intake and output -Free water flush -Renally dose medications -Avoid nephrotoxic medications -Trend BMP ID: COVID-19 pneumonia, lactic acidosis, Klebsiella pneumonia -Infectious disease consulted, appreciate recommendation -s/p Azithromycin 07/07-07/10, Rocephin -Decadron 10mg for 10 days () -s/p Remdesivir () -CRP 0.3, procalcitonin 0.19 -Contact/droplet precautions discontinued -f/u blood culture -Trend COVID-19 inflammatory markers -Monitor WBC and temperature curve -Prophylactic anticoagulation based on D-dimer per hospital protocol Endo: h/o hypothyroidism -Avoid hypoglycemia -SSI -Accu-Cheks q. 6 -Long-acting insulin, titrate as needed -Resume home Synthroid Heme: NAD -Trend CBC -Transfuse hemoglobin less than 7 -SCDs to BLE while in bed The high probability of a clinically significant, sudden or life threatening deterioration of the [multi] system(s) required my full and direct attention, intervention and personal management. The aggregate critical care time was [60] minutes. This time is in addition to time spent performing reported procedures but includes the following: [x] Data Review and interpretation [x] Patient assessment and monitoring of vital signs [x] Documentation [x] Medication orders and management Disposition Plan: icu Total Time Spent with Patient (Minutes): 60 History Interval history: This is a 76-year-old female with CVA resulting hemiplegia, dysphagia, aphasia, dementia, pulm embolism without acute cor pulmonale, hypothyroidism and JUJU who presented to the hospital on 07/07 from her half-way for altered mental status and diminished cognition and possible hypoxia via EMS. In the emergency department patient was intubated due to concern for airway protection. Recommend emergency department showed leukocytosis, hyponatremia with a sodium of 168, hypercalcemia, hypomagnesemia, elevated CK. Patient was admitted to the hospitalist service with acute hypoxic respiratory failure, COVID-19 PUI, hypernatremia, transaminitis, rhabdomyolysis with consults to CCM and nephrology: Hospital course to date: 07/08: Patient noted to be COVID-positive, started on remdesivir, Decadron, ceftriaxone azithromycin and infectious disease was consulted yesterday. This morning patient is on any sedation, PICC line to be placed. RT to attempt PSV. Started on free water flushes and tube feedings. Continues on D5 half-normal saline. 07/09: Patient remains encephalopathic, not on any sedation. Hypernatremia is improving, on FWF Q4hrs and D5w gtt per Nephro. If hypernatremia continue to improve and patient's mentation is unchanged, will get a repeat CT to r/o intracranial abnormalities. Patient remains afebrile, leukocytosis improved, and VSS. Continue current IV abx per ID. Patient failed PSV trial again today, continue PSV trial as tolerated 07/10: Remains stable on the vent, tolerating PSV trial this am. sodium continue to improve but no change in mental status. D/w CCM will get MRI brain to r/o any intracranial abnormalities, EEG also ordered to r/o seizures. Continue FWF and D5w gtt per Nephro. Continue IV steroids and current IV abx per ID. 07/11: Hypernatremia resolved, mentation is unchanged, remains on low vent se tting. EEG noted, and MRI brain pending. Will consult Neurology for further recommendations. Continue daily PSV trial as tolerated. 07/12: Appears more awake this morning but still not following any commands. MRI brain with no acute findings and sodium normalized. Awaiting Neuro consult. Continue daily PSV trial as tolerated. Patient's daughter was updated via phone, all questions and concerns were addressed at this time. Medical records requested from [facility] and [facility]. 07/13: DELMI overnight. Mentation is unchanged, remains stable on the vent. Neurology consult pending. Continue vent adjustment per [facility] and daily PSV trial as tolerated. 07/14: Mentation is unchanged, remains afebrile and stable on the vent, VSS. Complete antibiotics course, still on IV steroids X3 more days. ID recommen dations noted, remove corbin. Continue daily PSV trial as tolerated. 07/15: DELMI overnight, mentation unchanged, VSS. Patient failed PSV trial this am due to apnea. Continue daily PSV trial as tolerated. Possible trach and Peg per [facility]. 07/16: No acute events overnight, attempted PSV again today. [facility] to have family meeting on 07/17 to discuss trach/PEG 07/17: [facility] will have family meeting tomorrow. Failed PSV again. No acute events overnight. Thrombocytopenia continues to improve 07/18: [facility] held a family meeting today and surgery will be consulted for trach/PEG placement. Family stated that patient had not had her levothyroxine for several months due to decreased p.o. intake, will send thyroid panel. No acute events reported overnight. Hypotension today and 500 mL normal saline bolus given. Possible trach/peg within 2 days 07/19: No acute events reported overnight. Free T4 normal. Failed PSV 07/20: No acute events reported overnight. Patient taken off isolation per ID. Trach/PEG scheduled for Friday. failed PSV 07/21: No acute events reported overnight. Trach/peg for friday. PSV ongoing 07/22: Remains stable, DELMI overnight. Plan for possible Trac/PEG today by general surgery. Continue dailu PSV trial as tolerated. 07/23: s/p trach and PEG, remains stable on low vent setting, recent CXR is unremarkable. VSS. Resume TF once okayed by General Surgery. Continue daily PSV trial as tolerated. Possible LTAC placement, case management to arrange. 07/24: Remains stable on the vent, tolerating TF via Peg. Continue supportive measures and daily PSV trial. Awaiting placement. 07/25: DELMI overnight. Continue supportive measures and daily PSV trial. PT/OT consulted. Awaiting placement, case management to arrange. 07/26: DELMI overnight. Continue supportive measures and daily PSV trial. Awaiting placement, case management to arrange. 07/27: Patient failed PSV trial this am due to periods of apnea. Continue daily PSV trial as tolerated. Awaiting placement, case management to arrange. 07/28: DELMI overnight. Continue daily PSV trial as tolerated. Awaiting placement, case management to arrange. 07/29: No acute events reported overnight, failed CPAP trial. 07/30: CPAP trial, no acute events reported overnight. Continue supportive care. Awaiting LTAC placement. 07/31: No acute events reported overnight. Failed CPAP trial. 08/01: No acute events reported overnight, continue supportive care. Failed CPAP again. 08/02: no acute events, cpap trials as tolerated 08/03: Tolerating pressure support trial. No acute events reported overnight. We will get labs in the morning. Hospitalist Physical - Constitutional Vitals: Temp Pulse Resp BP Pulse Ox 98.9 F 97 H 12 139/72 100 08/03/22 08:00 08/03/22 12:32 08/03/22 12:32 08/03/22 12:32 08/03/22 12:32 General appearance: Present: no acute distress - EENT Eyes: Present: PERRL, EOM intact ENT: dentition normal - Neck Neck: Present: normal ROM - Respiratory Respiratory effort: normal Respiratory: bilateral: rhonchi - Cardiovascular Rhythm: regular Heart Sounds: Present: S1 & S2. Absent: systolic murmur, diastolic murmur - Extremities Extremities: no ischemia, pulses intact, pulses symmetrical, No edema, normal temperature, normal color Peripheral Pulses: within normal limits - Abdominal General gastrointestinal: soft, non-tender, non-distended, normal bowel sounds - Integumentary Integumentary: Present: warm, dry - Psychiatric Psychiatric: cooperative - Allied Health Allied health notes reviewed: nursing, RT HEART Score - HEART Score Troponin: Troponin T 0.010 ng/mL (0.00-0.029) 07/07/22 04:17 Results - Labs CBC & Chem 7: 08/01/22 04:58 08/02/22 05:00 Labs: Laboratory Last Values WBC 6.1 K/mm3 (4.5-11.0) 08/01/22 04:58 RBC 2.72 M/mm3 (3.65-5.03) L 08/01/22 04:58 Hgb 9.0 gm/dl (10.1-14.3) L 08/01/22 04:58 Hct 27.7 % (30.3-42.9) L 08/01/22 04:58 MCV 102 fl (79-97) H 08/01/22 04:58 MCH 33 pg (28-32) H 08/01/22 04:58 MCHC 33 % (30-34) 08/01/22 04:58 RDW 17.4 % (13.2-15.2) H 08/01/22 04:58 Plt Count 326 K/mm3 (140-440) 08/01/22 04:58 Lymph % (Auto) 33.3 % (13.4-35.0) 07/22/22 04:13 Todd % (Auto) 10.0 % (0.0-7.3) H 07/22/22 04:13 Eos % (Auto) 0.5 % (0.0-4.3) 07/22/22 04:13 Baso % (Auto) 0.1 % (0.0-1.8) 07/22/22 04:13 Lymph # (Auto) 2.1 K/mm3 (1.2-5.4) 07/22/22 04:13 Todd # (Auto) 0.6 K/mm3 (0.0-0.8) 07/22/22 04:13 Eos # (Auto) 0.0 K/mm3 (0.0-0.4) 07/22/22 04:13 Baso # (Auto) 0.0 K/mm3 (0.0-0.1) 07/22/22 04:13 Seg Neutrophils % 56.1 % (40.0-70.0) 07/22/22 04:13 Seg Neutrophils # 3.6 K/mm3 (1.8-7.7) 07/22/22 04:13 PT 13.0 Sec. (12.2-14.9) 07/30/22 14:15 INR 0.89 (0.87-1.13) 07/30/22 14:15 APTT 32.6 Sec. (24.2-36.6) 07/30/22 14:15 D-Dimer 925.80 ng/mlDDU (0-234) H 07/12/22 04:00 ABG pH 7.503 pH Units (7.350-7.450) H 07/20/22 05:30 ABG pCO2 42.7 mm Hg 07/20/22 05:30 ABG pO2 99.1 mm Hg (80.0-90.0) H 07/20/22 05:30 ABG HCO3 32.8 mmol/L (20.0-26.0) H 07/20/22 05:30 ABG O2 Saturation 97.8 % (95.0-99.0) 07/20/22 05:30 ABG O2 Content 13.3 (0.0-44) 07/20/22 05:30 ABG Base Excess 8.8 mmol/L (-2.0-3.0) H 07/20/22 05:30 ABG Hemoglobin 9.7 gm/dl (12.0-16.0) L 07/20/22 05:30 ABG Carboxyhemoglobin 1.3 % (0.0-5.0) 07/20/22 05:30 ABG Methemoglobin 0.6 % (0.0-1.5) 07/20/22 05:30 Oxyhemoglobin 95.9 % (95.0-99.0) 07/20/22 05:30 FiO2 28 % 07/20/22 05:30 Sodium 140 mmol/L (137-145) 07/31/22 04:45 Potassium 4.2 mmol/L (3.6-5.0) 07/31/22 04:45 Chloride 102.5 mmol/L (98-107) 07/31/22 04:45 Carbon Dioxide 32 mmol/L (22-30) H 07/31/22 04:45 Anion Gap 10 mmol/L 07/31/22 04:45 BUN 13 mg/dL (7-17) 07/31/22 04:45 Creatinine 0.4 mg/dL (0.6-1.2) L 08/02/22 05:00 Estimated GFR > 60 ml/min 08/02/22 05:00 BUN/Creatinine Ratio 43 % 07/31/22 04:45 Glucose 108 mg/dL (65-100) H 07/31/22 04:45 POC Glucose 113 mg/dL (70-105) H 08/03/22 10:08 Lactic Acid 2.10 mmol/L (0.7-2.0) H* 07/10/22 08:24 Uric Acid 13.5 mg/dL (3.5-7.6) H 07/07/22 04:17 Calcium 8.9 mg/dL (8.4-10.2) 07/31/22 04:45 Phosphorus 3.00 mg/dL (2.5-4.5) 07/29/22 04:05 Magnesium 1.70 mg/dL (1.7-2.3) 07/29/22 04:05 Ferritin 519.5 ng/mL (10.0-200.0) H 07/12/22 04:00 Total Bilirubin 0.30 mg/dL (0.1-1.2) 07/10/22 04:21 AST 89 units/L (5-40) H 07/10/22 04:21 ALT 53 units/L (7-56) 07/10/22 04:21 Alkaline Phosphatase 83 units/L (35-129) 07/10/22 04:21 Ammonia 32.0 umol/L (25-60) 07/07/22 04:17 Lactate Dehydrogenase 444 units/L (91-180) H 07/12/22 04:00 Total Creatine Kinase 67 units/L (30-135) 08/01/22 04:58 Troponin T 0.010 ng/mL (0.00-0.029) 07/07/22 04:17 C-Reactive Protein 0.30 mg/dL (0.00-1.30) 07/12/22 04:00 Total Protein 4.9 g/dL (6.3-8.2) L 07/10/22 04:21 Albumin 2.5 g/dL (3.9-5) L 07/10/22 04:21 Albumin/Globulin Ratio 1.0 % 07/10/22 04:21 Procalcitonin 0.19 ng/mL (<0.15) 07/08/22 14:54 TSH 9.750 mlU/mL (0.270-4.200) H 07/18/22 12:31 Free T4 0.78 ng/dL (0.76-1.46) 07/18/22 12:31 Thyroxine (T4) 6.2 ug/dL (4.0-12.0) 07/18/22 12:31 Free T3 Index 1.7 pg/mL (2.3-4.2) L 07/18/22 12:31 Total Cortisol 47.9 mcg/dL () 07/07/22 07:43 Urine Color Yellow (Yellow) 07/07/22 03:17 Urine Turbidity Slightly cloudy (Clear) 07/07/22 03:17 Specific [place] (Man) 1.015 (1.003-1.030) 07/07/22 03:17 Ur Protein (Man) 1+ mg/dL (Negative) 07/07/22 03:17 Ur Ketones (Man) Negative (Negative) 07/07/22 03:17 Ur Nitrite (Man) Negative (Negative) 07/07/22 03:17 Urine Bilirubin (Man) Negative (Negative) 07/07/22 03:17 Leukocyte Esterase (Man) Negative (Negative) 07/07/22 03:17 Urine WBC (Auto) 7.0 /HPF (0.0-6.0) H 07/07/22 03:17 Urine RBC (Auto) 1.0 /HPF (0.0-6.0) 07/07/22 03:17 U Epithel Cells (Auto) 4.0 /HPF (0-13.0) 07/07/22 03:17 Urine Bacteria (Auto) 3+ /HPF (Negative) 07/07/22 03:17 Urine RBC (Manual) 3+ (Negative) 07/07/22 03:17 Urine Mucus 3+ /HPF 07/07/22 03:17 Urine Osmolality 744 Mosm/kg 07/07/22 16:45 Urine Creatinine 92.9 mg/dL (0.1-20.0) H 07/07/22 16:45 Urine Sodium 109 mmol/L 07/07/22 16:45 Salicylates < 0.3 mg/dL (2.8-20.0) L 07/07/22 03:38 Urine Opiates Screen Presumptive negative 07/07/22 03:17 Urine Methadone Screen Presumptive negative 07/07/22 03:17 Acetaminophen 5.0 ug/mL (10.0-30.0) L 07/07/22 03:38 Ur Barbiturates Screen Presumptive negative 07/07/22 03:17 Valproic Acid 7.0 ug/mL (50-100) L 07/07/22 03:38 Ur Phencyclidine Scrn Presumptive negative 07/07/22 03:17 Ur Amphetamines Screen Presumptive negative 07/07/22 03:17 U Benzodiazepines Scrn Presumptive negative 07/07/22 03:17 Urine Cocaine Screen Presumptive negative 07/07/22 03:17 U Marijuana (THC) Screen Presumptive negative 07/07/22 03:17 Drugs of Abuse Note Disclamer 07/07/22 03:17 Plasma/Serum Alcohol < 0.01 % (0-0.07) 07/07/22 03:38 SARS-CoV-2 (PCR) Positive (Negative) A 07/07/22 15:00 Corbin/IV: Voiding Method External Female Catheter Active Medications - Current Medications Current Medications: Generic Name Dose Route Start Last Admin Trade Name Freq PRN Reason Stop Dose Admin Acetaminophen 650 mg 07/13/22 12:00 07/25/22 21:28 Acetaminophen 325 Mg/10.15 Ml Oral Liqd Unit Dose FEEDTUBE 650 mg Q6H PRN Administration Pain MILD(1-3)/Fever >100.5/LEE Apixaban 5 mg 07/30/22 22:00 08/03/22 10:06 Apixaban 5 Mg Tab FEEDTUBE 5 mg Q12HR ERROL Administration Protocol Atorvastatin Calcium 80 mg 07/10/22 22:00 08/02/22 21:27 Atorvastatin 40 Mg Tab FEEDTUBE 80 mg QHS ERROL Administration Cholecalciferol 1,000 unit 07/10/22 10:00 08/03/22 10:06 Cholecalciferol (Vit D3) 1000 Unit (25 Mcg) Tab FEEDTUBE 1,000 unit QDAY ERROL Administration Dextrose 50 ml 07/09/22 11:42 Dextrose 50% In Water (25gm) 50 Ml Syringe IV Q30MIN PRN Hypoglycemia Protocol Famotidine 20 mg 07/09/22 22:00 08/03/22 10:06 Famotidine 20 Mg Tab FEEDTUBE 20 mg BID ERROL Administration Hydrophilic Ointment 1 applic 07/07/22 02:48 Lip Therapy Vaseline TP Q2HR PRN Dry Lips Insulin Human Lispro 0 unit 07/09/22 12:00 08/03/22 07:42 Insulin Lispro 100 Unit/Ml SUB-Q Not Given Q6HR ERROL Protocol Levothyroxine Sodium 75 mcg 07/11/22 06:00 08/03/22 06:32 Levothyroxine 75 Mcg Tab FEEDTUBE 75 mcg QAM@0600 ERROL Administration Multi-Ingred Cream/Lotion/Oil/Oint 1 applic 07/07/22 02:48 Mineral Oil/Petrolatum, White Ophth Oint 3.5 Gm OU Q4HR PRN Dry Eye(s) Senna/Docusate Sodium 1 tab 07/07/22 10:00 08/02/22 09:57 Sennosides/Docusate Sodium 8.6/50 Mg Tab FEEDTUBE 1 tab BID ERROL Administration Sodium Chloride 10 ml 07/07/22 13:00 08/03/22 10:06 Sodium Chloride 0.9% 10 Ml Flush Syringe IV 10 ml BID ERROL Administration Sodium Chloride 10 ml 07/07/22 12:09 Sodium Chloride 0.9% 10 Ml Flush Syringe IV PRN PRN LINE FLUSH Valproic Acid 250 mg 07/10/22 22:00 08/03/22 10:06 Valproic Acid 250 Mg/5 Ml Oral Liqd FEEDTUBE 250 mg Q12H ERROL Administration Nutrition/Malnutrition Assess - Dietary Evaluation Nutrition/Malnutrition Findings: Nutrition Notes Start: 07/07/22 13:24 Freq: Status: Active Protocol: Document 07/24/22 09:24 DAREN (Rec: 07/24/22 09:53 DAREN [email or web address]) Nutrition Notes Initial or Follow up Reassessment Current Diagnosis Respiratory Failure,Stroke, Hyperlipidemia Other Pertinent Diagnosis COVID-19, Metabolic Encephalopathy, Pulmonary Embolism, Dementia. Current Diet TF-Vital AF 1.2 Jameson @ 50 ml/hr (from D 07/12). Labs/Tests 07/24: CO2 33, Crea 0.4, Ca 8. 3. Pertinent Medications 07/24: Vit D3, D5w @ 50ml/hr, Levothyroxine, others nutritionally unremarkable. Height 5 ft 6 in Weight 96.2 kg [place] Body Weight (kg) 59.09 BMI 34.2 Weight change and time frame 0.946 Kg body weight gain in 1 week reported. Weight Status Obese Subjective/Other Information RD consult for routine F/U on TF tolerance/continuation assessment. TF continues as prescribed, and well tolerated, according to RN notes. Pt continues on Mechanical Ventilation, O2 saturation @ 98%, according to Physical Assessment History notes. Procedure on 07/22: Percutaneous Tracheostomy and EGD w/PEG-tube placement, well tolerated. according to Operative Report notes. TF resumed on 07/23, after PEG -tube placement, according to Progress notes. Possible discharge to LTAC facility, according to Progress notes. Percent of energy/protein needs met: Prescribed TF-Vital AF 1.2 Jameson @ 50 ml/hr provides for energy/protein needs (1,440 Kcal/90 g) during LOS, 101% Kcal, 91% AA. Burn Absent Trauma Absent GI Symptoms Other Difficulty In Swallowing,Chewing Food Allergy No Skin Integrity/Comment Assessment WNL. Current % PO Other Minimum of two criteria Yes Energy Intake (non-severe) <75% Estimated Energy Requirement >7 days Interpretation of Weight Loss (non- 5% in 1 month severe) Fluid Accumulation N/A Protein-Calorie Malnutrition Non-Severe #2 Nutrition Diagnosis Malnutrition Comments: TF continues as prescribed, and well tolerated, according to RN notes. Diagnosis Progress(for reassessment Improved documentation) #1 Nutrition Diagnosis Inadequate oral intake Comments: Procedure on 07/22: Percutaneous Tracheostomy and EGD w/PEG-tube placement, well tolerated. according to Operative Report notes. TF resumed on 07/23, after PEG -tube placement, according to Progress notes. Diagnosis Progress(for reassessment Continues documentation) Is patient on ventilator? Yes Is Patient Ambulatory and/or Out of Bed No REE-([facility]-confined to bed) 1774.548 Kcal/Kg value to use for calculation 15 Approximate Energy Requirements Using 1443 kcal/Kg Calculation Used for Recommendations Kcal/kg Additional Notes Protein: 1.3 g/Kg AdjBW; 101 g /day. Fluids: 1 ml/Kcal, or as per MD. Nutrition Intervention Nutrition Support: Continue TF-Vital AF 1.2 Jameson @ 50 ml/hr. Flush: 75 ml water Q 4 hr, or as per MD. Kcal 1,440 Protein (gm) 90 Carbohydrates (gm) 133 Fat (gm) 65 Fluid (mL) 973 Fiber (gm) 6 % RDI: 101% Kcal; 91% AA. Goal #1 Provide at least 75% of energy /protein needs through Enteral Feeding during LOS. Follow-Up By: 08/07/22 Additional Comments Continue monitoring TF tolerance, ventilation status, and BM. <ANAHI ANGELES - Last Filed: 08/04/22 07:13> Assessment and Plan Assessment and plan: I saw and evaluated the patient. I agree with the findings and the plan of care as documented in the Nurse Practitioner's~note, with the following corrections and additions. Hospitalist Physical - Constitutional Vitals: Temp Pulse Resp BP Pulse Ox 99.2 F 111 H 18 167/69 100 08/04/22 04:28 08/04/22 06:00 08/04/22 06:00 08/04/22 06:00 08/04/22 06:00 HEART Score - HEART Score Troponin: Troponin T 0.010 ng/mL (0.00-0.029) 07/07/22 04:17 Results - Labs CBC & Chem 7: 08/01/22 04:58 08/02/22 05:00 Labs: Laboratory Last Values WBC 6.1 K/mm3 (4.5-11.0) 08/01/22 04:58 RBC 2.72 M/mm3 (3.65-5.03) L 08/01/22 04:58 Hgb 9.0 gm/dl (10.1-14.3) L 08/01/22 04:58 Hct 27.7 % (30.3-42.9) L 08/01/22 04:58 MCV 102 fl (79-97) H 08/01/22 04:58 MCH 33 pg (28-32) H 08/01/22 04:58 MCHC 33 % (30-34) 08/01/22 04:58 RDW 17.4 % (13.2-15.2) H 08/01/22 04:58 Plt Count 326 K/mm3 (140-440) 08/01/22 04:58 Lymph % (Auto) 33.3 % (13.4-35.0) 07/22/22 04:13 Todd % (Auto) 10.0 % (0.0-7.3) H 07/22/22 04:13 Eos % (Auto) 0.5 % (0.0-4.3) 07/22/22 04:13 Baso % (Auto) 0.1 % (0.0-1.8) 07/22/22 04:13 Lymph # (Auto) 2.1 K/mm3 (1.2-5.4) 07/22/22 04:13 Todd # (Auto) 0.6 K/mm3 (0.0-0.8) 07/22/22 04:13 Eos # (Auto) 0.0 K/mm3 (0.0-0.4) 07/22/22 04:13 Baso # (Auto) 0.0 K/mm3 (0.0-0.1) 07/22/22 04:13 Seg Neutrophils % 56.1 % (40.0-70.0) 07/22/22 04:13 Seg Neutrophils # 3.6 K/mm3 (1.8-7.7) 07/22/22 04:13 PT 13.0 Sec. (12.2-14.9) 07/30/22 14:15 INR 0.89 (0.87-1.13) 07/30/22 14:15 APTT 32.6 Sec. (24.2-36.6) 07/30/22 14:15 D-Dimer 925.80 ng/mlDDU (0-234) H 07/12/22 04:00 ABG pH 7.503 pH Units (7.350-7.450) H 07/20/22 05:30 ABG pCO2 42.7 mm Hg 07/20/22 05:30 ABG pO2 99.1 mm Hg (80.0-90.0) H 07/20/22 05:30 ABG HCO3 32.8 mmol/L (20.0-26.0) H 07/20/22 05:30 ABG O2 Saturation 97.8 % (95.0-99.0) 07/20/22 05:30 ABG O2 Content 13.3 (0.0-44) 07/20/22 05:30 ABG Base Excess 8.8 mmol/L (-2.0-3.0) H 07/20/22 05:30 ABG Hemoglobin 9.7 gm/dl (12.0-16.0) L 07/20/22 05:30 ABG Carboxyhemoglobin 1.3 % (0.0-5.0) 07/20/22 05:30 ABG Methemoglobin 0.6 % (0.0-1.5) 07/20/22 05:30 Oxyhemoglobin 95.9 % (95.0-99.0) 07/20/22 05:30 FiO2 28 % 07/20/22 05:30 Sodium 140 mmol/L (137-145) 07/31/22 04:45 Potassium 4.2 mmol/L (3.6-5.0) 07/31/22 04:45 Chloride 102.5 mmol/L (98-107) 07/31/22 04:45 Carbon Dioxide 32 mmol/L (22-30) H 07/31/22 04:45 Anion Gap 10 mmol/L 07/31/22 04:45 BUN 13 mg/dL (7-17) 07/31/22 04:45 Creatinine 0.4 mg/dL (0.6-1.2) L 08/02/22 05:00 Estimated GFR > 60 ml/min 08/02/22 05:00 BUN/Creatinine Ratio 43 % 07/31/22 04:45 Glucose 108 mg/dL (65-100) H 07/31/22 04:45 POC Glucose 122 mg/dL (70-105) H 08/03/22 18:38 Lactic Acid 2.10 mmol/L (0.7-2.0) H* 07/10/22 08:24 Uric Acid 13.5 mg/dL (3.5-7.6) H 07/07/22 04:17 Calcium 8.9 mg/dL (8.4-10.2) 07/31/22 04:45 Phosphorus 3.00 mg/dL (2.5-4.5) 07/29/22 04:05 Magnesium 1.70 mg/dL (1.7-2.3) 07/29/22 04:05 Ferritin 519.5 ng/mL (10.0-200.0) H 07/12/22 04:00 Total Bilirubin 0.30 mg/dL (0.1-1.2) 07/10/22 04:21 AST 89 units/L (5-40) H 07/10/22 04:21 ALT 53 units/L (7-56) 07/10/22 04:21 Alkaline Phosphatase 83 units/L (35-129) 07/10/22 04:21 Ammonia 32.0 umol/L (25-60) 07/07/22 04:17 Lactate Dehydrogenase 444 units/L (91-180) H 07/12/22 04:00 Total Creatine Kinase 84 units/L (30-135) 08/04/22 04:00 Troponin T 0.010 ng/mL (0.00-0.029) 07/07/22 04:17 C-Reactive Protein 0.30 mg/dL (0.00-1.30) 07/12/22 04:00 Total Protein 4.9 g/dL (6.3-8.2) L 07/10/22 04:21 Albumin 2.5 g/dL (3.9-5) L 07/10/22 04:21 Albumin/Globulin Ratio 1.0 % 07/10/22 04:21 Procalcitonin 0.19 ng/mL (<0.15) 07/08/22 14:54 TSH 9.750 mlU/mL (0.270-4.200) H 07/18/22 12:31 Free T4 0.78 ng/dL (0.76-1.46) 07/18/22 12:31 Thyroxine (T4) 6.2 ug/dL (4.0-12.0) 07/18/22 12:31 Free T3 Index 1.7 pg/mL (2.3-4.2) L 07/18/22 12:31 Total Cortisol 47.9 mcg/dL () 07/07/22 07:43 Urine Color Yellow (Yellow) 07/07/22 03:17 Urine Turbidity Slightly cloudy (Clear) 07/07/22 03:17 Specific [place] (Man) 1.015 (1.003-1.030) 07/07/22 03:17 Ur Protein (Man) 1+ mg/dL (Negative) 07/07/22 03:17 Ur Ketones (Man) Negative (Negative) 07/07/22 03:17 Ur Nitrite (Man) Negative (Negative) 07/07/22 03:17 Urine Bilirubin (Man) Negative (Negative) 07/07/22 03:17 Leukocyte Esterase (Man) Negative (Negative) 07/07/22 03:17 Urine WBC (Auto) 7.0 /HPF (0.0-6.0) H 07/07/22 03:17 Urine RBC (Auto) 1.0 /HPF (0.0-6.0) 07/07/22 03:17 U Epithel Cells (Auto) 4.0 /HPF (0-13.0) 07/07/22 03:17 Urine Bacteria (Auto) 3+ /HPF (Negative) 07/07/22 03:17 Urine RBC (Manual) 3+ (Negative) 07/07/22 03:17 Urine Mucus 3+ /HPF 07/07/22 03:17 Urine Osmolality 744 Mosm/kg 07/07/22 16:45 Urine Creatinine 92.9 mg/dL (0.1-20.0) H 07/07/22 16:45 Urine Sodium 109 mmol/L 07/07/22 16:45 Salicylates < 0.3 mg/dL (2.8-20.0) L 07/07/22 03:38 Urine Opiates Screen Presumptive negative 07/07/22 03:17 Urine Methadone Screen Presumptive negative 07/07/22 03:17 Acetaminophen 5.0 ug/mL (10.0-30.0) L 07/07/22 03:38 Ur Barbiturates Screen Presumptive negative 07/07/22 03:17 Valproic Acid 7.0 ug/mL (50-100) L 07/07/22 03:38 Ur Phencyclidine Scrn Presumptive negative 07/07/22 03:17 Ur Amphetamines Screen Presumptive negative 07/07/22 03:17 U Benzodiazepines Scrn Presumptive negative 07/07/22 03:17 Urine Cocaine Screen Presumptive negative 07/07/22 03:17 U Marijuana (THC) Screen Presumptive negative 07/07/22 03:17 Drugs of Abuse Note Disclamer 07/07/22 03:17 Plasma/Serum Alcohol < 0.01 % (0-0.07) 07/07/22 03:38 SARS-CoV-2 (PCR) Positive (Negative) A 07/07/22 15:00 Corbin/IV: Voiding Method External Female Catheter Active Medications - Current Medications Current Medications: Generic Name Dose Route Start Last Admin Trade Name Freq PRN Reason Stop Dose Admin Acetaminophen 650 mg 07/13/22 12:00 07/25/22 21:28 Acetaminophen 325 Mg/10.15 Ml Oral Liqd Unit Dose FEEDTUBE 650 mg Q6H PRN Administration Pain MILD(1-3)/Fever >100.5/LEE Apixaban 5 mg 07/30/22 22:00 08/03/22 23:21 Apixaban 5 Mg Tab FEEDTUBE 5 mg Q12HR ERROL Administration Protocol Atorvastatin Calcium 80 mg 07/10/22 22:00 08/03/22 23:21 Atorvastatin 40 Mg Tab FEEDTUBE 80 mg QHS ERROL Administration Cholecalciferol 1,000 unit 07/10/22 10:00 08/03/22 10:06 Cholecalciferol (Vit D3) 1000 Unit (25 Mcg) Tab FEEDTUBE 1,000 unit QDAY ERROL Administration Dextrose 50 ml 07/09/22 11:42 Dextrose 50% In Water (25gm) 50 Ml Syringe IV Q30MIN PRN Hypoglycemia Protocol Famotidine 20 mg 07/09/22 22:00 08/03/22 23:21 Famotidine 20 Mg Tab FEEDTUBE 20 mg BID ERROL Administration Hydrophilic Ointment 1 applic 07/07/22 02:48 Lip Therapy Vaseline TP Q2HR PRN Dry Lips Insulin Human Lispro 0 unit 07/09/22 12:00 08/03/22 18:43 Insulin Lispro 100 Unit/Ml SUB-Q Not Given Q6HR [facility] Protocol Levothyroxine Sodium 75 mcg 07/11/22 06:00 08/04/22 06:02 Levothyroxine 75 Mcg Tab FEEDTUBE 75 mcg QAM@0600 ERROL Administration Multi-Ingred Cream/Lotion/Oil/Oint 1 applic 07/07/22 02:48 Mineral Oil/Petrolatum, White Ophth Oint 3.5 Gm OU Q4HR PRN Dry Eye(s) Senna/Docusate Sodium 1 tab 07/07/22 10:00 08/03/22 13:20 Sennosides/Docusate Sodium 8.6/50 Mg Tab FEEDTUBE 1 tab BID ERROL Administration Sodium Chloride 10 ml 07/07/22 13:00 08/03/22 10:06 Sodium Chloride 0.9% 10 Ml Flush Syringe IV 10 ml BID ERROL Administration Sodium Chloride 10 ml 07/07/22 12:09 Sodium Chloride 0.9% 10 Ml Flush Syringe IV PRN PRN LINE FLUSH Valproic Acid 250 mg 07/10/22 22:00 08/03/22 23:21 Valproic Acid 250 Mg/5 Ml Oral Liqd FEEDTUBE 250 mg Q12H ERROL Administration Nutrition/Malnutrition Assess - Dietary Evaluation Nutrition/Malnutrition Findings: Nutrition Notes Start: 07/07/22 13:24 Freq: Status: Active Protocol: Document 07/24/22 09:24 DAREN (Rec: 07/24/22 09:53 DAREN [id number]) Nutrition Notes Initial or Follow up Reassessment Current Diagnosis Respiratory Failure,Stroke, Hyperlipidemia Other Pertinent Diagnosis COVID-19, Metabolic Encephalopathy, Pulmonary Embolism, Dementia. Current Diet TF-Vital AF 1.2 Jameson @ 50 ml/hr (from D 07/12). Labs/Tests 07/24: CO2 33, Crea 0.4, Ca 8. 3. Pertinent Medications 07/24: Vit D3, D5w @ 50ml/hr, Levothyroxine, others nutritionally unremarkable. Height 5 ft 6 in Weight 96.2 kg [place] Body Weight (kg) 59.09 BMI 34.2 Weight change and time frame 0.946 Kg body weight gain in 1 week reported. Weight Status Obese Subjective/Other Information RD consult for routine F/U on TF tolerance/continuation assessment. TF continues as prescribed, and well tolerated, according to RN notes. Pt continues on Mechanical Ventilation, O2 saturation @ 98%, according to Physical Assessment History notes. Procedure on 07/22: Percutaneous Tracheostomy and EGD w/PEG-tube placement, well tolerated. according to Operative Report notes. TF resumed on 07/23, after PEG -tube placement, according to Progress notes. Possible discharge to LTAC facility, according to [facility] notes. Percent of energy/protein needs met: Prescribed TF-Vital AF 1.2 Jameson @ 50 ml/hr provides for energy/protein needs (1,440 Kcal/90 g) during LOS, 101% Kcal, 91% AA. Burn Absent Trauma Absent GI Symptoms Other Difficulty In Swallowing,Chewing Food Allergy No Skin Integrity/Comment Assessment WNL. Current % PO Other Minimum of two criteria Yes Energy Intake (non-severe) <75% Estimated Energy Requirement >7 days Interpretation of Weight Loss (non- 5% in 1 month severe) Fluid Accumulation N/A Protein-Calorie Malnutrition Non-Severe #2 Nutrition Diagnosis Malnutrition Comments: TF continues as prescribed, and well tolerated, according to RN notes. Diagnosis Progress(for reassessment Improved documentation) #1 Nutrition Diagnosis Inadequate oral intake Comments: Procedure on 07/22: Percutaneous Tracheostomy and EGD w/PEG-tube placement, well tolerated. according to Operative Report notes. TF resumed on 07/23, after PEG -tube placement, according to Progress notes. Diagnosis Progress(for reassessment Continues documentation) Is patient on ventilator? Yes Is Patient Ambulatory and/or Out of Bed No REE-([facility]-confined to bed) 1774.548 Kcal/Kg value to use for calculation 15 Approximate Energy Requirements Using 1443 kcal/Kg Calculation Used for Recommendations Kcal/kg Additional Notes Protein: 1.3 g/Kg AdjBW; 101 g /day. Fluids: 1 ml/Kcal, or as per MD. Nutrition Intervention Nutrition Support: Continue TF-Vital AF 1.2 Jameson @ 50 ml/hr. Flush: 75 ml water Q 4 hr, or as per MD. Kcal 1,440 Protein (gm) 90 Carbohydrates (gm) 133 Fat (gm) 65 Fluid (mL) 973 Fiber (gm) 6 % RDI: 101% Kcal; 91% AA. Goal #1 Provide at least 75% of energy /protein needs through Enteral Feeding during LOS. Follow-Up By: 08/07/22 Additional Comments Continue monitoring TF tolerance, ventilation status, and BM.
[2022-08-03] MEDS: SENNOSIDES/DOCUSATE SODIUM 8.6/50 MG TAB FEEDTUBE SCH (13:20)
[2022-08-04] MEDS: LEVOTHYROXINE 75 MCG TAB FEEDTUBE SCH (06:02)
--- NOTE | 2022-08-04 08:42 | Progress Note ---
Assessment and Plan 76 y/o female with acute respiratory failure secondary to altered mental status, most likely from electrolyte abnormalities seen on chemistry, found to be COVID positive. 08/04/22: Supportive Measures. Daily PSV trials 08/03/22: Continue supportive measures and daily PSV trials. 08/02/22: Daily PSV Trials 08/01/22: No new pulmonary recs today. I did speak with 2 daughters via the phone on either Friday or Friday to discuss the lack of change in mental state. Per the daughters, /father is telling them he is seeing things that even the daughter who lives here has not seen. They are preparing to speak with their father about her mental state. Continue supportive measures. 07/31/22: Daily PSV trials. PT/OT if possible. Continue tube feeds. 07/30/22: Continue daily PSV trials. 07/29/22: Daily PSV trials. Hold laxatives and stimulants for now. No changes were made in any other meds. Monitor white count and abdominal exam. 07/26/22: Daily PSV trials. Continue tube feeds. Awaiting placement. 07/25/22: Daily PSV trials. Tube feeds going and tolerating. Need to consider at least PT consult to help with movement of lower ext. 07/24/22: Continue tube feeds. Continue daily PSV trials. Await placement, weanable but will need time. 07/23/22: Tube feeds back on. No PSV trials today but will do again tomorrow. Awaiting placement. 07/22/22: Trach and Peg hopefully today. 07/21/22: Did 6 hours of PSV yesterday. Trach and peg tomorrow. Check labs to make sure lytes are stable. 07/20/22: Trach/Peg Friday. Supportive care. 07/19/22: Appreciate Surgery. on Schedule for next week. Free T4 was normal. No current indication for stress dose steroids. Continue supportive care. 07/18/22: Family meeting: Discussed current mental state. Discussed negative work up so far to explain why mental state hasnt improved. Per family here, patient was better than what she is not but I had difficult time placing a time frame as to when that was, maybe May. It does appear that she has had a steady decline mentally and even stopped eating. There were talks prior to her admission here about Peg tube placement. Discussed the idea of trach and peg placement. Also explained to family that trach does not fix any underlying reason as to why the patient's mental state is the way it is. The family wasn't aware that she was brought in for altered mental status, they were told she had bradycardia. Nonetheless, the family as a whole wish to pursue trach and peg placement. Consulted Surgery and hopeful they will see soon. Continue supportive measures and continue daily PSV trials. TSH on admit was 13, will repeat but if T4 is normal, nothing to do. She also is not behaving like m yxedema coma. Guarded prognosis. 07/17/22: steroids end today. Continue daily PSV trials. Will speak with family about next steps as today is day 10 of intubation and it does not appear that conventional extubation is in the near future. 07/16/22: Continue daily PSV trials. Will speak with family tomorrow as patient is not improving enough for conventional extubation, especially with frequent apnic events. Most likely patient will need trach and peg. 07/15/22: mental status is still unchanged. Eyes open but not tracking or following commands. Also going apnic on PSV trials. Most likely will need trach and peg given mental status has not improved. 07/12/22: Negative MRI for acute infarct. Na is normal. Continue to monitor. Daily PSV trials. Has been intubated now for 5 days. 07/11/22: for MRI today. Appreciate renal help, agree with signing off. Attempt daily PSV. Guarded prognosis. 07/10: follow up MRI. Get official EEG read but no status. Continue daily PSV trials. Guarded prognosis 07/09/22: Continue supportive measures. Continue to fix Na, if no improvement in mental state with normal sodium then will pursue MRI. Picc placed today. 07/08/22: No further sedation. 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 Consider neurology consult and may need to obtain MRI. Attempt PSV trials today. needs Picc line placed for director long term care access as patient is a difficult stick. Feed patient and monitor lytes. 1. Discontinue sedation 2. Wean FiO2 for sats >88% and PaO2 greater than 60 3. Agree with fluid resuscitation, patient needs free water 4. Will follow up with family to find out exactly what patient mental status was a facility CCT 31 minutes. Subjective Date of service: 08/04/22 Principal diagnosis: Hypernatremia Interval history: No acute events. Objective Vital Signs - 12hr 08/03/22 08/03/22 08/03/22 21:00 22:00 23:00 Temperature Pulse Rate 103 H 99 H 88 Pulse Rate [ From Monitor] Respiratory 11 L 12 10 L Rate Blood Pressure 191/78 157/77 137/77 O2 Sat by Pulse 100 100 100 Oximetry O2 Sat by Pulse Oximetry [ Assessment] 08/04/22 08/04/22 08/04/22 00:00 00:09 01:00 Temperature 99.4 F Pulse Rate 95 H 96 H 94 H Pulse Rate [ 96 H From Monitor] Respiratory 11 L 15 Rate Blood Pressure 154/79 154/79 154/86 O2 Sat by Pulse 100 100 100 Oximetry O2 Sat by Pulse Oximetry [ Assessment] 08/04/22 08/04/22 08/04/22 02:00 03:00 04:00 Temperature Pulse Rate 91 H 99 H 102 H Pulse Rate [ 76 From Monitor] Respiratory 14 10 L 15 Rate Blood Pressure 170/77 149/72 141/80 O2 Sat by Pulse 100 100 100 Oximetry O2 Sat by Pulse Oximetry [ Assessment] 08/04/22 08/04/22 08/04/22 04:28 04:55 04:56 Temperature 99.2 F Pulse Rate 104 H Pulse Rate [ From Monitor] Respiratory Rate Blood Pressure 135/88 O2 Sat by Pulse 100 Oximetry O2 Sat by Pulse 100 Oximetry [ Assessment] 08/04/22 08/04/22 08/04/22 05:00 06:00 07:27 Temperature 99.2 F Pulse Rate 103 H 111 H Pulse Rate [ From Monitor] Respiratory 10 L 18 Rate Blood Pressure 150/78 167/69 O2 Sat by Pulse 100 100 Oximetry O2 Sat by Pulse Oximetry [ Assessment] 08/04/22 07:28 Temperature 98.2 F Pulse Rate Pulse Rate [ From Monitor] Respiratory Rate Blood Pressure O2 Sat by Pulse Oximetry O2 Sat by Pulse Oximetry [ Assessment] Constitutional: comatose ENT: other (orally intubated) Neck: supple Effort: normal Ascultation: Bilateral: clear Percussion: Bilateral: not dull Cardiovascular: regular rate and rhythm Gastrointestinal: normoactive bowel sounds, soft Extremities: no cyanosis, no edema Neurologic: unable to assess CBC and BMP: 08/01/22 04:58 08/02/22 05:00 ABG, PT/INR, D-dimer: ABG ABG pH 7.503 pH Units (7.350-7.450) H 07/20/22 05:30 ABG pCO2 42.7 mm Hg 07/20/22 05:30 ABG pO2 99.1 mm Hg (80.0-90.0) H 07/20/22 05:30 ABG O2 Saturation 97.8 % (95.0-99.0) 07/20/22 05:30 PT/INR, D-dimer PT 13.0 Sec. (12.2-14.9) 07/30/22 14:15 INR 0.89 (0.87-1.13) 07/30/22 14:15 D-Dimer 925.80 ng/mlDDU (0-234) H 07/12/22 04:00 Abnormal lab findings: Abnormal Labs 07/07/22 07/07/22 07/07/22 03:17 03:38 03:38 WBC RBC 5.43 H Hgb 18.2 H Hct 54.9 H MCV 101 H MCH 34 H RDW Plt Count 104 L [place] % (Auto) Seg Neutrophils % Seg Neutrophils # PT 15.0 H APTT 23.0 L D-Dimer ABG pH ABG pO2 ABG HCO3 ABG O2 Saturation ABG Base Excess ABG Hemoglobin Oxyhemoglobin Sodium Potassium Chloride Carbon Dioxide BUN Creatinine Glucose POC Glucose Lactic Acid Uric Acid Calcium Phosphorus Magnesium Ferritin Total Bilirubin AST Lactate Dehydrogenase Total Creatine Kinase C-Reactive Protein Total Protein Albumin TSH Free T3 Index Urine WBC (Auto) 7.0 H Urine Creatinine Salicylates Acetaminophen Valproic Acid SARS-CoV-2 (PCR) 07/07/22 07/07/22 07/07/22 03:38 03:38 03:38 WBC RBC Hgb Hct MCV MCH RDW Plt Count [place] % (Auto) Seg Neutrophils % Seg Neutrophils # PT APTT D-Dimer ABG pH ABG pO2 ABG HCO3 ABG O2 Saturation ABG Base Excess ABG Hemoglobin Oxyhemoglobin Sodium Potassium Chloride Carbon Dioxide BUN Creatinine Glucose POC Glucose Lactic Acid Uric Acid Calcium Phosphorus Magnesium 3.30 H Ferritin Total Bilirubin AST Lactate Dehydrogenase Total Creatine Kinase 1826 H C-Reactive Protein Total Protein Albumin TSH Free T3 Index Urine WBC (Auto) Urine Creatinine Salicylates < 0.3 L Acetaminophen 5.0 L Valproic Acid 7.0 L SARS-CoV-2 (PCR) 07/07/22 07/07/22 07/07/22 04:17 04:17 04:17 WBC RBC Hgb Hct MCV MCH RDW Plt Count [place] % (Auto) Seg Neutrophils % Seg Neutrophils # PT APTT D-Dimer ABG pH ABG pO2 ABG HCO3 ABG O2 Saturation ABG Base Excess ABG Hemoglobin Oxyhemoglobin Sodium 168 H* Potassium 3.2 L Chloride 122.2 H Carbon Dioxide BUN 52 H Creatinine Glucose 158 H POC Glucose Lactic Acid 3.50 H* Uric Acid Calcium 10.9 H Phosphorus Magnesium Ferritin Total Bilirubin 1.40 H AST 47 H Lactate Dehydrogenase Total Creatine Kinase C-Reactive Protein Total Protein Albumin TSH 12.790 H Free T3 Index Urine WBC (Auto) Urine Creatinine Salicylates Acetaminophen Valproic Acid SARS-CoV-2 (PCR) 07/07/22 07/07/22 07/07/22 04:17 07:43 09:35 WBC RBC Hgb Hct MCV MCH RDW Plt Count [place] % (Auto) Seg Neutrophils % Seg Neutrophils # PT APTT D-Dimer ABG pH ABG pO2 377.3 H ABG HCO3 ABG O2 Saturation 99.6 H ABG Base Excess -2.5 L ABG Hemoglobin Oxyhemoglobin Sodium Potassium Chloride Carbon Dioxide BUN Creatinine Glucose POC Glucose Lactic Acid 6.30 H* Uric Acid 13.5 H Calcium Phosphorus Magnesium Ferritin Total Bilirubin AST Lactate Dehydrogenase Total Creatine Kinase C-Reactive Protein Total Protein Albumin TSH Free T3 Index Urine WBC (Auto) Urine Creatinine Salicylates Acetaminophen Valproic Acid SARS-CoV-2 (PCR) 07/07/22 07/07/22 07/07/22 15:00 16:00 16:00 WBC RBC Hgb Hct MCV MCH RDW Plt Count [place] % (Auto) Seg Neutrophils % Seg Neutrophils # PT APTT D-Dimer ABG pH ABG pO2 ABG HCO3 ABG O2 Saturation ABG Base Excess ABG Hemoglobin Oxyhemoglobin Sodium 166 H* Potassium Chloride 124.8 H Carbon Dioxide 20 L BUN 41 H Creatinine Glucose 157 H POC Glucose Lactic Acid 7.00 H* Uric Acid Calcium Phosphorus Magnesium Ferritin Total Bilirubin AST 81 H Lactate Dehydrogenase Total Creatine Kinase C-Reactive Protein Total Protein Albumin TSH Free T3 Index Urine WBC (Auto) Urine Creatinine Salicylates Acetaminophen Valproic Acid SARS-CoV-2 (PCR) Positive A 07/07/22 07/07/22 07/07/22 16:45 23:42 23:42 WBC RBC Hgb Hct MCV MCH RDW Plt Count [place] % (Auto) Seg Neutrophils % Seg Neutrophils # PT APTT D-Dimer ABG pH ABG pO2 ABG HCO3 ABG O2 Saturation ABG Base Excess ABG Hemoglobin Oxyhemoglobin Sodium 165 H* Potassium 3.0 L Chloride 122.8 H Carbon Dioxide BUN 38 H Creatinine Glucose 232 H POC Glucose Lactic Acid 5.60 H* Uric Acid Calcium Phosphorus Magnesium Ferritin Total Bilirubin AST Lactate Dehydrogenase Total Creatine Kinase C-Reactive Protein Total Protein Albumin TSH Free T3 Index Urine WBC (Auto) Urine Creatinine 92.9 H Salicylates Acetaminophen Valproic Acid SARS-CoV-2 (PCR) 07/07/22 07/07/22 07/08/22 Unknown Unknown 05:30 WBC RBC Hgb Hct MCV MCH RDW Plt Count [place] % (Auto) Seg Neutrophils % Seg Neutrophils # PT APTT D-Dimer ABG pH 7.553 H 7.473 H ABG pO2 61.7 L 121.7 H ABG HCO3 ABG O2 Saturation 94.7 L ABG Base Excess 4.3 H ABG Hemoglobin 18.0 H Oxyhemoglobin 93.1 L Sodium 163 H* Potassium 6.3 H* D Chloride 123.7 H Carbon Dioxide BUN 42 H Creatinine Glucose 169 H POC Glucose Lactic Acid Uric Acid Calcium Phosphorus Magnesium Ferritin Total Bilirubin AST Lactate Dehydrogenase Total Creatine Kinase C-Reactive Protein Total Protein Albumin TSH Free T3 Index Urine WBC (Auto) Urine Creatinine Salicylates Acetaminophen Valproic Acid SARS-CoV-2 (PCR) 07/08/22 07/08/22 07/08/22 05:36 11:21 14:54 WBC 11.1 H RBC Hgb Hct MCV 101 H MCH 33 H RDW Plt Count 69 L [place] % (Auto) Seg Neutrophils % 82.0 H Seg Neutrophils # 9.1 H PT APTT D-Dimer ABG pH ABG pO2 ABG HCO3 ABG O2 Saturation ABG Base Excess ABG Hemoglobin Oxyhemoglobin Sodium Potassium Chloride Carbon Dioxide BUN Creatinine Glucose POC Glucose 174 H 148 H Lactic Acid Uric Acid Calcium Phosphorus Magnesium Ferritin Total Bilirubin AST Lactate Dehydrogenase Total Creatine Kinase C-Reactive Protein Total Protein Albumin TSH Free T3 Index Urine WBC (Auto) Urine Creatinine Salicylates Acetaminophen Valproic Acid SARS-CoV-2 (PCR) 07/08/22 07/08/22 07/08/22 14:54 14:54 14:54 WBC RBC Hgb Hct MCV MCH RDW Plt Count [place] % (Auto) Seg Neutrophils % Seg Neutrophils # PT APTT D-Dimer ABG pH ABG pO2 ABG HCO3 ABG O2 Saturation ABG Base Excess ABG Hemoglobin Oxyhemoglobin Sodium 163 H* Potassium 2.9 L* Chloride 123.7 H Carbon Dioxide BUN 30 H Creatinine Glucose 161 H POC Glucose Lactic Acid 6.10 H* Uric Acid Calcium Phosphorus Magnesium Ferritin Total Bilirubin AST 69 H Lactate Dehydrogenase Total Creatine Kinase 2335 H C-Reactive Protein Total Protein 5.6 L D Albumin 3.1 L TSH Free T3 Index Urine WBC (Auto) Urine Creatinine Salicylates Acetaminophen Valproic Acid SARS-CoV-2 (PCR) 07/08/22 07/08/22 07/08/22 14:54 14:54 14:54 WBC RBC Hgb Hct MCV MCH RDW Plt Count [place] % (Auto) Seg Neutrophils % Seg Neutrophils # PT APTT D-Dimer 499.72 H ABG pH ABG pO2 ABG HCO3 ABG O2 Saturation ABG Base Excess ABG Hemoglobin Oxyhemoglobin Sodium Potassium Chloride Carbon Dioxide BUN Creatinine Glucose POC Glucose Lactic Acid Uric Acid Calcium Phosphorus Magnesium Ferritin 722.1 H Total Bilirubin AST Lactate Dehydrogenase 455 H Total Creatine Kinase C-Reactive Protein 1.60 H Total Protein Albumin TSH Free T3 Index Urine WBC (Auto) Urine Creatinine Salicylates Acetaminophen Valproic Acid SARS-CoV-2 (PCR) 07/08/22 07/08/22 07/09/22 19:13 19:53 00:09 WBC RBC Hgb Hct MCV MCH RDW Plt Count [place] % (Auto) Seg Neutrophils % Seg Neutrophils # PT APTT D-Dimer ABG pH ABG pO2 ABG HCO3 ABG O2 Saturation ABG Base Excess ABG Hemoglobin Oxyhemoglobin Sodium 160 H Potassium 3.5 L D Chloride 122.0 H Carbon Dioxide 20 L BUN 28 H Creatinine Glucose 151 H POC Glucose 138 H Lactic Acid 5.70 H* Uric Acid Calcium Phosphorus Magnesium Ferritin Total Bilirubin AST Lactate Dehydrogenase Total Creatine Kinase C-Reactive Protein Total Protein Albumin TSH Free T3 Index Urine WBC (Auto) Urine Creatinine Salicylates Acetaminophen Valproic Acid SARS-CoV-2 (PCR) 07/09/22 07/09/22 07/09/22 00:45 03:21 03:21 WBC RBC Hgb Hct MCV MCH RDW Plt Count [place] % (Auto) Seg Neutrophils % Seg Neutrophils # PT APTT D-Dimer ABG pH ABG pO2 ABG HCO3 ABG O2 Saturation ABG Base Excess ABG Hemoglobin Oxyhemoglobin Sodium 158 H 157 H Potassium Chloride 124.2 H 125.0 H Carbon Dioxide 20 L 20 L BUN 25 H 24 H Creatinine Glucose 147 H 169 H POC Glucose Lactic Acid 4.70 H* Uric Acid Calcium Phosphorus Magnesium Ferritin Total Bilirubin AST 81 H Lactate Dehydrogenase Total Creatine Kinase C-Reactive Protein Total Protein 5.7 L Albumin 2.8 L TSH Free T3 Index Urine WBC (Auto) Urine Creatinine Salicylates Acetaminophen Valproic Acid SARS-CoV-2 (PCR) 07/09/22 07/09/22 07/09/22 04:40 05:35 08:14 WBC RBC Hgb Hct MCV 102 H MCH 33 H RDW Plt Count 74 L [place] % (Auto) Seg Neutrophils % Seg Neutrophils # PT APTT D-Dimer ABG pH ABG pO2 172.1 H ABG HCO3 ABG O2 Saturation 99.1 H ABG Base Excess -2.8 L ABG Hemoglobin Oxyhemoglobin Sodium Potassium Chloride Carbon Dioxide BUN Creatinine Glucose POC Glucose 108 H Lactic Acid Uric Acid Calcium Phosphorus Magnesium Ferritin Total Bilirubin AST Lactate Dehydrogenase Total Creatine Kinase C-Reactive Protein Total Protein Albumin TSH Free T3 Index Urine WBC (Auto) Urine Creatinine Salicylates Acetaminophen Valproic Acid SARS-CoV-2 (PCR) 07/09/22 07/09/22 07/09/22 11:16 11:27 16:20 WBC RBC Hgb Hct MCV MCH RDW Plt Count [place] % (Auto) Seg Neutrophils % Seg Neutrophils # PT APTT D-Dimer ABG pH ABG pO2 ABG HCO3 ABG O2 Saturation ABG Base Excess ABG Hemoglobin Oxyhemoglobin Sodium 155 H Potassium Chloride 121.3 H Carbon Dioxide BUN 21 H Creatinine Glucose 170 H POC Glucose 173 H 190 H Lactic Acid Uric Acid Calcium Phosphorus Magnesium Ferritin Total Bilirubin AST Lactate Dehydrogenase Total Creatine Kinase C-Reactive Protein Total Protein Albumin TSH Free T3 Index Urine WBC (Auto) Urine Creatinine Salicylates Acetaminophen Valproic Acid SARS-CoV-2 (PCR) 07/09/22 07/10/22 07/10/22 17:16 00:04 04:21 WBC RBC Hgb Hct MCV MCH RDW Plt Count [place] % (Auto) Seg Neutrophils % Seg Neutrophils # PT APTT D-Dimer ABG pH ABG pO2 ABG HCO3 ABG O2 Saturation ABG Base Excess ABG Hemoglobin Oxyhemoglobin Sodium 149 H 150 H Potassium Chloride 115.6 H 115.0 H Carbon Dioxide BUN 18 H Creatinine 0.5 L Glucose 207 H 178 H POC Glucose 180 H Lactic Acid Uric Acid Calcium 7.9 L Phosphorus Magnesium Ferritin Total Bilirubin AST 89 H Lactate Dehydrogenase 431 H Total Creatine Kinase C-Reactive Protein Total Protein 4.9 L Albumin 2.5 L TSH Free T3 Index Urine WBC (Auto) Urine Creatinine Salicylates Acetaminophen Valproic Acid SARS-CoV-2 (PCR) 07/10/22 07/10/22 07/10/22 04:21 04:21 04:21 WBC 11.8 H RBC 3.52 L Hgb Hct MCV 99 H MCH 33 H RDW Plt Count 67 L [place] % (Auto) Seg Neutrophils % Seg Neutrophils # PT APTT D-Dimer 585.71 H ABG pH ABG pO2 ABG HCO3 ABG O2 Saturation ABG Base Excess ABG Hemoglobin Oxyhemoglobin Sodium Potassium Chloride Carbon Dioxide BUN Creatinine Glucose POC Glucose Lactic Acid Uric Acid Calcium Phosphorus Magnesium Ferritin 631.3 H Total Bilirubin AST Lactate Dehydrogenase Total Creatine Kinase C-Reactive Protein Total Protein Albumin TSH Free T3 Index Urine WBC (Auto) Urine Creatinine Salicylates Acetaminophen Valproic Acid SARS-CoV-2 (PCR) 07/10/22 07/10/22 07/10/22 04:21 04:55 05:26 WBC RBC Hgb Hct MCV MCH RDW Plt Count [place] % (Auto) Seg Neutrophils % Seg Neutrophils # PT APTT D-Dimer ABG pH ABG pO2 76.8 L ABG HCO3 ABG O2 Saturation ABG Base Excess ABG Hemoglobin 10.4 L Oxyhemoglobin 94.5 L Sodium Potassium Chloride Carbon Dioxide BUN Creatinine Glucose POC Glucose 147 H Lactic Acid 2.50 H* Uric Acid Calcium Phosphorus Magnesium Ferritin Total Bilirubin AST Lactate Dehydrogenase Total Creatine Kinase C-Reactive Protein Total Protein Albumin TSH Free T3 Index Urine WBC (Auto) Urine Creatinine Salicylates Acetaminophen Valproic Acid SARS-CoV-2 (PCR) 07/10/22 07/10/22 07/10/22 08:24 11:31 12:53 WBC RBC Hgb Hct MCV MCH RDW Plt Count [place] % (Auto) Seg Neutrophils % Seg Neutrophils # PT APTT D-Dimer ABG pH ABG pO2 ABG HCO3 ABG O2 Saturation ABG Base Excess ABG Hemoglobin Oxyhemoglobin Sodium Potassium Chloride 110.9 H Carbon Dioxide BUN Creatinine 0.5 L Glucose 200 H POC Glucose 166 H Lactic Acid 2.10 H* Uric Acid Calcium 8.3 L Phosphorus Magnesium Ferritin Total Bilirubin AST Lactate Dehydrogenase Total Creatine Kinase C-Reactive Protein Total Protein Albumin TSH Free T3 Index Urine WBC (Auto) Urine Creatinine Salicylates Acetaminophen Valproic Acid SARS-CoV-2 (PCR) 07/10/22 07/10/22 07/10/22 17:37 18:53 23:30 WBC RBC Hgb Hct MCV MCH RDW Plt Count [place] % (Auto) Seg Neutrophils % Seg Neutrophils # PT APTT D-Dimer ABG pH ABG pO2 ABG HCO3 ABG O2 Saturation ABG Base Excess ABG Hemoglobin Oxyhemoglobin Sodium Potassium Chloride 109.5 H 110.2 H Carbon Dioxide BUN Creatinine 0.5 L 0.5 L Glucose 243 H 208 H POC Glucose 237 H Lactic Acid Uric Acid Calcium 8.1 L 8.1 L Phosphorus Magnesium Ferritin Total Bilirubin AST Lactate Dehydrogenase Total Creatine Kinase C-Reactive Protein Total Protein Albumin TSH Free T3 Index Urine WBC (Auto) Urine Creatinine Salicylates Acetaminophen Valproic Acid SARS-CoV-2 (PCR) 07/10/22 07/11/22 07/11/22 23:57 04:00 04:15 WBC 11.2 H RBC Hgb Hct MCV 99 H MCH RDW Plt Count 73 L [place] % (Auto) Seg Neutrophils % Seg Neutrophils # PT APTT D-Dimer ABG pH ABG pO2 107.4 H ABG HCO3 ABG O2 Saturation ABG Base Excess ABG Hemoglobin Oxyhemoglobin Sodium Potassium Chloride Carbon Dioxide BUN Creatinine Glucose POC Glucose 195 H Lactic Acid Uric Acid Calcium Phosphorus Magnesium Ferritin Total Bilirubin AST Lactate Dehydrogenase Total Creatine Kinase C-Reactive Protein Total Protein Albumin TSH Free T3 Index Urine WBC (Auto) Urine Creatinine Salicylates Acetaminophen Valproic Acid SARS-CoV-2 (PCR) 07/11/22 07/11/22 07/11/22 05:40 05:40 06:06 WBC RBC Hgb Hct MCV MCH RDW Plt Count [place] % (Auto) Seg Neutrophils % Seg Neutrophils # PT APTT D-Dimer ABG pH ABG pO2 ABG HCO3 ABG O2 Saturation ABG Base Excess ABG Hemoglobin Oxyhemoglobin Sodium Potassium Chloride 109.8 H Carbon Dioxide BUN Creatinine 0.5 L Glucose 160 H POC Glucose 145 H Lactic Acid Uric Acid Calcium 8.3 L Phosphorus Magnesium Ferritin Total Bilirubin AST Lactate Dehydrogenase Total Creatine Kinase 1745 H C-Reactive Protein Total Protein Albumin TSH Free T3 Index Urine WBC (Auto) Urine Creatinine Salicylates Acetaminophen Valproic Acid SARS-CoV-2 (PCR) 07/11/22 07/11/22 07/11/22 11:55 11:59 17:44 WBC RBC Hgb Hct MCV MCH RDW Plt Count [place] % (Auto) Seg Neutrophils % Seg Neutrophils # PT APTT D-Dimer ABG pH ABG pO2 ABG HCO3 ABG O2 Saturation ABG Base Excess ABG Hemoglobin Oxyhemoglobin Sodium Potassium Chloride 107.8 H Carbon Dioxide BUN Creatinine 0.5 L Glucose 150 H POC Glucose 150 H 182 H Lactic Acid Uric Acid Calcium 8.2 L Phosphorus Magnesium Ferritin Total Bilirubin AST Lactate Dehydrogenase Total Creatine Kinase C-Reactive Protein Total Protein Albumin TSH Free T3 Index Urine WBC (Auto) Urine Creatinine Salicylates Acetaminophen Valproic Acid SARS-CoV-2 (PCR) 07/11/22 07/12/22 07/12/22 17:50 00:10 00:12 WBC RBC Hgb Hct MCV MCH RDW Plt Count [place] % (Auto) Seg Neutrophils % Seg Neutrophils # PT APTT D-Dimer ABG pH ABG pO2 ABG HCO3 ABG O2 Saturation ABG Base Excess ABG Hemoglobin Oxyhemoglobin Sodium Potassium Chloride 108.4 H Carbon Dioxide BUN Creatinine 0.5 L 0.4 L Glucose 191 H 163 H POC Glucose 154 H Lactic Acid Uric Acid Calcium 8.2 L 7.9 L Phosphorus Magnesium Ferritin Total Bilirubin AST Lactate Dehydrogenase Total Creatine Kinase C-Reactive Protein Total Protein Albumin TSH Free T3 Index Urine WBC (Auto) Urine Creatinine Salicylates Acetaminophen Valproic Acid SARS-CoV-2 (PCR) 07/12/22 07/12/22 07/12/22 04:00 04:00 04:00 WBC RBC Hgb Hct MCV MCH RDW Plt Count [place] % (Auto) Seg Neutrophils % Seg Neutrophils # PT APTT D-Dimer 925.80 H ABG pH ABG pO2 ABG HCO3 ABG O2 Saturation ABG Base Excess ABG Hemoglobin Oxyhemoglobin Sodium Potassium Chloride Carbon Dioxide BUN Creatinine Glucose POC Glucose Lactic Acid Uric Acid Calcium Phosphorus Magnesium Ferritin 519.5 H Total Bilirubin AST Lactate Dehydrogenase 444 H Total Creatine Kinase C-Reactive Protein Total Protein Albumin TSH Free T3 Index Urine WBC (Auto) Urine Creatinine Salicylates Acetaminophen Valproic Acid SARS-CoV-2 (PCR) 07/12/22 07/12/22 07/12/22 04:00 05:00 05:03 WBC 11.7 H RBC 3.33 L Hgb Hct MCV 99 H MCH 33 H RDW Plt Count 68 L [place] % (Auto) Seg Neutrophils % Seg Neutrophils # PT APTT D-Dimer ABG pH 7.453 H ABG pO2 107.9 H ABG HCO3 27.9 H ABG O2 Saturation ABG Base Excess 3.7 H ABG Hemoglobin 10.9 L Oxyhemoglobin Sodium Potassium Chloride Carbon Dioxide BUN Creatinine Glucose POC Glucose 174 H Lactic Acid Uric Acid Calcium Phosphorus Magnesium Ferritin Total Bilirubin AST Lactate Dehydrogenase Total Creatine Kinase C-Reactive Protein Total Protein Albumin TSH Free T3 Index Urine WBC (Auto) Urine Creatinine Salicylates Acetaminophen Valproic Acid SARS-CoV-2 (PCR) 07/12/22 07/12/22 07/12/22 12:15 17:18 23:14 WBC RBC Hgb Hct MCV MCH RDW Plt Count [place] % (Auto) Seg Neutrophils % Seg Neutrophils # PT APTT D-Dimer ABG pH ABG pO2 ABG HCO3 ABG O2 Saturation ABG Base Excess ABG Hemoglobin Oxyhemoglobin Sodium Potassium Chloride Carbon Dioxide BUN Creatinine Glucose POC Glucose 154 H 154 H 167 H Lactic Acid Uric Acid Calcium Phosphorus Magnesium Ferritin Total Bilirubin AST Lactate Dehydrogenase Total Creatine Kinase C-Reactive Protein Total Protein Albumin TSH Free T3 Index Urine WBC (Auto) Urine Creatinine Salicylates Acetaminophen Valproic Acid SARS-CoV-2 (PCR) 07/13/22 07/13/22 07/13/22 04:00 04:10 05:14 WBC RBC 3.17 L Hgb Hct MCV 98 H MCH 34 H RDW Plt Count 75 L [place] % (Auto) Seg Neutrophils % Seg Neutrophils # PT APTT D-Dimer ABG pH ABG pO2 ABG HCO3 ABG O2 Saturation ABG Base Excess ABG Hemoglobin Oxyhemoglobin Sodium Potassium Chloride Carbon Dioxide BUN Creatinine 0.4 L Glucose 136 H POC Glucose 140 H Lactic Acid Uric Acid Calcium Phosphorus Magnesium Ferritin Total Bilirubin AST Lactate Dehydrogenase Total Creatine Kinase C-Reactive Protein Total Protein Albumin TSH Free T3 Index Urine WBC (Auto) Urine Creatinine Salicylates Acetaminophen Valproic Acid SARS-CoV-2 (PCR) 09/03/22 09/03/22 09/03/22 12:03 14:25 17:19 WBC RBC Hgb Hct MCV MCH RDW Plt Count [place] % (Auto) Seg Neutrophils % Seg Neutrophils # PT APTT D-Dimer ABG pH 7.478 H ABG pO2 118.1 H ABG HCO3 28.2 H ABG O2 Saturation ABG Base Excess 4.5 H ABG Hemoglobin Oxyhemoglobin Sodium Potassium Chloride Carbon Dioxide BUN Creatinine Glucose POC Glucose 193 H 189 H Lactic Acid Uric Acid Calcium Phosphorus Magnesium Ferritin Total Bilirubin AST Lactate Dehydrogenase Total Creatine Kinase C-Reactive Protein Total Protein Albumin TSH Free T3 Index Urine WBC (Auto) Urine Creatinine Salicylates Acetaminophen Valproic Acid SARS-CoV-2 (PCR) 07/13/22 07/13/22 07/14/22 23:52 Unknown 06:18 WBC RBC Hgb Hct MCV MCH RDW Plt Count [place] % (Auto) Seg Neutrophils % Seg Neutrophils # PT APTT D-Dimer ABG pH 7.465 H ABG pO2 128.8 H ABG HCO3 29.0 H ABG O2 Saturation ABG Base Excess 4.9 H ABG Hemoglobin 10.3 L Oxyhemoglobin Sodium Potassium Chloride Carbon Dioxide BUN Creatinine Glucose POC Glucose 174 H 167 H Lactic Acid Uric Acid Calcium Phosphorus Magnesium Ferritin Total Bilirubin AST Lactate Dehydrogenase Total Creatine Kinase C-Reactive Protein Total Protein Albumin TSH Free T3 Index Urine WBC (Auto) Urine Creatinine Salicylates Acetaminophen Valproic Acid SARS-CoV-2 (PCR) 07/14/22 07/14/22 07/15/22 11:34 17:20 00:25 WBC RBC Hgb Hct MCV MCH RDW Plt Count [place] % (Auto) Seg Neutrophils % Seg Neutrophils # PT APTT D-Dimer ABG pH ABG pO2 ABG HCO3 ABG O2 Saturation ABG Base Excess ABG Hemoglobin Oxyhemoglobin Sodium Potassium Chloride Carbon Dioxide BUN Creatinine Glucose POC Glucose 187 H 221 H 172 H Lactic Acid Uric Acid Calcium Phosphorus Magnesium Ferritin Total Bilirubin AST Lactate Dehydrogenase Total Creatine Kinase C-Reactive Protein Total Protein Albumin TSH Free T3 Index Urine WBC (Auto) Urine Creatinine Salicylates Acetaminophen Valproic Acid SARS-CoV-2 (PCR) 07/15/22 07/15/22 07/15/22 04:00 04:00 05:49 WBC 11.4 H RBC 3.13 L Hgb Hct MCV 98 H MCH 33 H RDW Plt Count 98 L [place] % (Auto) Seg Neutrophils % Seg Neutrophils # PT APTT D-Dimer ABG pH ABG pO2 ABG HCO3 ABG O2 Saturation ABG Base Excess ABG Hemoglobin Oxyhemoglobin Sodium Potassium Chloride Carbon Dioxide 34 H BUN Creatinine 0.4 L Glucose 126 H POC Glucose 143 H Lactic Acid Uric Acid Calcium Phosphorus Magnesium Ferritin Total Bilirubin AST Lactate Dehydrogenase Total Creatine Kinase C-Reactive Protein Total Protein Albumin TSH Free T3 Index Urine WBC (Auto) Urine Creatinine Salicylates Acetaminophen Valproic Acid SARS-CoV-2 (PCR) 07/15/22 07/15/22 07/16/22 11:19 16:16 00:19 WBC RBC Hgb Hct MCV MCH RDW Plt Count [place] % (Auto) Seg Neutrophils % Seg Neutrophils # PT APTT D-Dimer ABG pH ABG pO2 ABG HCO3 ABG O2 Saturation ABG Base Excess ABG Hemoglobin Oxyhemoglobin Sodium Potassium Chloride Carbon Dioxide BUN Creatinine Glucose POC Glucose 158 H 227 H 153 H Lactic Acid Uric Acid Calcium Phosphorus Magnesium Ferritin Total Bilirubin AST Lactate Dehydrogenase Total Creatine Kinase C-Reactive Protein Total Protein Albumin TSH Free T3 Index Urine WBC (Auto) Urine Creatinine Salicylates Acetaminophen Valproic Acid SARS-CoV-2 (PCR) 07/16/22 07/16/22 07/16/22 04:20 04:20 11:28 WBC RBC 3.16 L Hgb Hct MCV 99 H MCH 33 H RDW Plt Count 101 L [place] % (Auto) Seg Neutrophils % Seg Neutrophils # PT APTT D-Dimer ABG pH ABG pO2 ABG HCO3 ABG O2 Saturation ABG Base Excess ABG Hemoglobin Oxyhemoglobin Sodium Potassium Chloride Carbon Dioxide 36 H BUN 18 H Creatinine 0.4 L Glucose 139 H POC Glucose 158 H Lactic Acid Uric Acid Calcium Phosphorus Magnesium Ferritin Total Bilirubin AST Lactate Dehydrogenase Total Creatine Kinase C-Reactive Protein Total Protein Albumin TSH Free T3 Index Urine WBC (Auto) Urine Creatinine Salicylates Acetaminophen Valproic Acid SARS-CoV-2 (PCR) 07/16/22 07/17/22 07/17/22 16:30 00:07 05:46 WBC RBC Hgb Hct MCV MCH RDW Plt Count [place] % (Auto) Seg Neutrophils % Seg Neutrophils # PT APTT D-Dimer ABG pH ABG pO2 ABG HCO3 ABG O2 Saturation ABG Base Excess ABG Hemoglobin Oxyhemoglobin Sodium Potassium Chloride Carbon Dioxide BUN Creatinine Glucose POC Glucose 201 H 139 H 123 H Lactic Acid Uric Acid Calcium Phosphorus Magnesium Ferritin Total Bilirubin AST Lactate Dehydrogenase Total Creatine Kinase C-Reactive Protein Total Protein Albumin TSH Free T3 Index Urine WBC (Auto) Urine Creatinine Salicylates Acetaminophen Valproic Acid SARS-CoV-2 (PCR) 07/17/22 07/17/22 07/17/22 13:30 17:51 23:49 WBC RBC Hgb Hct MCV MCH RDW Plt Count [place] % (Auto) Seg Neutrophils % Seg Neutrophils # PT APTT D-Dimer ABG pH ABG pO2 ABG HCO3 ABG O2 Saturation ABG Base Excess ABG Hemoglobin Oxyhemoglobin Sodium Potassium Chloride Carbon Dioxide BUN Creatinine Glucose POC Glucose 185 H 219 H 133 H Lactic Acid Uric Acid Calcium Phosphorus Magnesium Ferritin Total Bilirubin AST Lactate Dehydrogenase Total Creatine Kinase C-Reactive Protein Total Protein Albumin TSH Free T3 Index Urine WBC (Auto) Urine Creatinine Salicylates Acetaminophen Valproic Acid SARS-CoV-2 (PCR) 07/18/22 07/18/22 07/18/22 04:00 04:00 04:00 WBC 12.2 H RBC 3.34 L Hgb Hct MCV 100 H MCH 33 H RDW Plt Count 113 L [place] % (Auto) Seg Neutrophils % 77.3 H Seg Neutrophils # 9.4 H PT APTT D-Dimer ABG pH 7.508 H ABG pO2 115.9 H ABG HCO3 33.4 H ABG O2 Saturation ABG Base Excess 9.4 H ABG Hemoglobin 11.7 L Oxyhemoglobin Sodium Potassium Chloride Carbon Dioxide 35 H BUN Creatinine 0.4 L Glucose 130 H POC Glucose Lactic Acid Uric Acid Calcium Phosphorus Magnesium Ferritin Total Bilirubin AST Lactate Dehydrogenase Total Creatine Kinase C-Reactive Protein Total Protein Albumin TSH Free T3 Index Urine WBC (Auto) Urine Creatinine Salicylates Acetaminophen Valproic Acid SARS-CoV-2 (PCR) 07/18/22 07/18/22 07/18/22 04:42 12:31 12:31 WBC RBC Hgb Hct MCV MCH RDW Plt Count [place] % (Auto) Seg Neutrophils % Seg Neutrophils # PT APTT D-Dimer ABG pH ABG pO2 ABG HCO3 ABG O2 Saturation ABG Base Excess ABG Hemoglobin Oxyhemoglobin Sodium Potassium Chloride Carbon Dioxide BUN Creatinine Glucose POC Glucose 134 H Lactic Acid Uric Acid Calcium Phosphorus Magnesium Ferritin Total Bilirubin AST Lactate Dehydrogenase Total Creatine Kinase C-Reactive Protein Total Protein Albumin TSH 9.750 H Free T3 Index 1.7 L Urine WBC (Auto) Urine Creatinine Salicylates Acetaminophen Valproic Acid SARS-CoV-2 (PCR) 07/18/22 07/18/22 07/19/22 12:33 17:39 00:43 WBC RBC Hgb Hct MCV MCH RDW Plt Count [place] % (Auto) Seg Neutrophils % Seg Neutrophils # PT APTT D-Dimer ABG pH ABG pO2 ABG HCO3 ABG O2 Saturation ABG Base Excess ABG Hemoglobin Oxyhemoglobin Sodium Potassium Chloride Carbon Dioxide BUN Creatinine Glucose POC Glucose 172 H 164 H 132 H Lactic Acid Uric Acid Calcium Phosphorus Magnesium Ferritin Total Bilirubin AST Lactate Dehydrogenase Total Creatine Kinase C-Reactive Protein Total Protein Albumin TSH Free T3 Index Urine WBC (Auto) Urine Creatinine Salicylates Acetaminophen Valproic Acid SARS-CoV-2 (PCR) 07/19/22 07/19/22 07/19/22 05:08 12:30 17:42 WBC RBC Hgb Hct MCV MCH RDW Plt Count [place] % (Auto) Seg Neutrophils % Seg Neutrophils # PT APTT D-Dimer ABG pH ABG pO2 ABG HCO3 ABG O2 Saturation ABG Base Excess ABG Hemoglobin Oxyhemoglobin Sodium Potassium Chloride Carbon Dioxide BUN Creatinine Glucose POC Glucose 143 H 159 H 139 H Lactic Acid Uric Acid Calcium Phosphorus Magnesium Ferritin Total Bilirubin AST Lactate Dehydrogenase Total Creatine Kinase C-Reactive Protein Total Protein Albumin TSH Free T3 Index Urine WBC (Auto) Urine Creatinine Salicylates Acetaminophen Valproic Acid SARS-CoV-2 (PCR) 07/19/22 07/20/22 07/20/22 23:26 05:30 06:03 WBC RBC Hgb Hct MCV MCH RDW Plt Count [place] % (Auto) Seg Neutrophils % Seg Neutrophils # PT APTT D-Dimer ABG pH 7.503 H ABG pO2 99.1 H ABG HCO3 32.8 H ABG O2 Saturation ABG Base Excess 8.8 H ABG Hemoglobin 9.7 L Oxyhemoglobin Sodium Potassium Chloride Carbon Dioxide BUN Creatinine Glucose POC Glucose 144 H 146 H Lactic Acid Uric Acid Calcium Phosphorus Magnesium Ferritin Total Bilirubin AST Lactate Dehydrogenase Total Creatine Kinase C-Reactive Protein Total Protein Albumin TSH Free T3 Index Urine WBC (Auto) Urine Creatinine Salicylates Acetaminophen Valproic Acid SARS-CoV-2 (PCR) 07/20/22 07/20/22 07/20/22 12:15 17:24 23:44 WBC RBC Hgb Hct MCV MCH RDW Plt Count [place] % (Auto) Seg Neutrophils % Seg Neutrophils # PT APTT D-Dimer ABG pH ABG pO2 ABG HCO3 ABG O2 Saturation ABG Base Excess ABG Hemoglobin Oxyhemoglobin Sodium Potassium Chloride Carbon Dioxide BUN Creatinine Glucose POC Glucose 138 H 135 H 131 H Lactic Acid Uric Acid Calcium Phosphorus Magnesium Ferritin Total Bilirubin AST Lactate Dehydrogenase Total Creatine Kinase C-Reactive Protein Total Protein Albumin TSH Free T3 Index Urine WBC (Auto) Urine Creatinine Salicylates Acetaminophen Valproic Acid SARS-CoV-2 (PCR) 07/21/22 07/21/22 07/21/22 04:00 04:00 05:13 WBC RBC 2.92 L Hgb 9.6 L Hct 29.0 L MCV 99 H MCH 33 H RDW 15.6 H Plt Count 136 L [place] % (Auto) Seg Neutrophils % Seg Neutrophils # PT APTT D-Dimer ABG pH ABG pO2 ABG HCO3 ABG O2 Saturation ABG Base Excess ABG Hemoglobin Oxyhemoglobin Sodium Potassium Chloride Carbon Dioxide 32 H BUN Creatinine 0.3 L Glucose 133 H POC Glucose 142 H Lactic Acid Uric Acid Calcium 8.3 L Phosphorus Magnesium Ferritin Total Bilirubin AST Lactate Dehydrogenase Total Creatine Kinase C-Reactive Protein Total Protein Albumin TSH Free T3 Index Urine WBC (Auto) Urine Creatinine Salicylates Acetaminophen Valproic Acid SARS-CoV-2 (PCR) 07/21/22 07/21/22 07/21/22 06:16 11:48 16:08 WBC RBC Hgb Hct MCV MCH RDW Plt Count [place] % (Auto) Seg Neutrophils % Seg Neutrophils # PT APTT D-Dimer ABG pH ABG pO2 ABG HCO3 ABG O2 Saturation ABG Base Excess ABG Hemoglobin Oxyhemoglobin Sodium Potassium Chloride Carbon Dioxide BUN Creatinine Glucose POC Glucose 149 H 124 H 139 H Lactic Acid Uric Acid Calcium Phosphorus Magnesium Ferritin Total Bilirubin AST Lactate Dehydrogenase Total Creatine Kinase C-Reactive Protein Total Protein Albumin TSH Free T3 Index Urine WBC (Auto) Urine Creatinine Salicylates Acetaminophen Valproic Acid SARS-CoV-2 (PCR) 07/22/22 07/22/22 07/22/22 00:05 04:00 04:13 WBC RBC 2.90 L Hgb 9.5 L Hct 28.9 L MCV 100 H MCH 33 H RDW 15.5 H Plt Count [place] % (Auto) 10.0 H Seg Neutrophils % Seg Neutrophils # PT APTT D-Dimer ABG pH ABG pO2 ABG HCO3 ABG O2 Saturation ABG Base Excess ABG Hemoglobin Oxyhemoglobin Sodium Potassium Chloride Carbon Dioxide 31 H BUN Creatinine 0.4 L Glucose 105 H POC Glucose 143 H Lactic Acid Uric Acid Calcium Phosphorus Magnesium Ferritin Total Bilirubin AST Lactate Dehydrogenase Total Creatine Kinase C-Reactive Protein Total Protein Albumin TSH Free T3 Index Urine WBC (Auto) Urine Creatinine Salicylates Acetaminophen Valproic Acid SARS-CoV-2 (PCR) 07/22/22 07/23/22 07/23/22 11:03 04:25 04:25 WBC RBC 2.71 L Hgb 9.1 L Hct 27.0 L MCV 100 H MCH 33 H RDW 15.4 H Plt Count [place] % (Auto) Seg Neutrophils % Seg Neutrophils # PT APTT D-Dimer ABG pH ABG pO2 ABG HCO3 ABG O2 Saturation ABG Base Excess ABG Hemoglobin Oxyhemoglobin Sodium Potassium Chloride Carbon Dioxide 33 H BUN Creatinine 0.4 L Glucose POC Glucose 111 H Lactic Acid Uric Acid Calcium 8.3 L Phosphorus Magnesium Ferritin Total Bilirubin AST Lactate Dehydrogenase Total Creatine Kinase C-Reactive Protein Total Protein Albumin TSH Free T3 Index Urine WBC (Auto) Urine Creatinine Salicylates Acetaminophen Valproic Acid SARS-CoV-2 (PCR) 07/23/22 07/23/22 07/23/22 06:14 11:09 23:34 WBC RBC Hgb Hct MCV MCH RDW Plt Count [place] % (Auto) Seg Neutrophils % Seg Neutrophils # PT APTT D-Dimer ABG pH ABG pO2 ABG HCO3 ABG O2 Saturation ABG Base Excess ABG Hemoglobin Oxyhemoglobin Sodium Potassium Chloride Carbon Dioxide BUN Creatinine Glucose POC Glucose 106 H 117 H 115 H Lactic Acid Uric Acid Calcium Phosphorus Magnesium Ferritin Total Bilirubin AST Lactate Dehydrogenase Total Creatine Kinase C-Reactive Protein Total Protein Albumin TSH Free T3 Index Urine WBC (Auto) Urine Creatinine Salicylates Acetaminophen Valproic Acid SARS-CoV-2 (PCR) 07/24/22 07/24/22 07/24/22 05:24 11:25 16:52 WBC RBC Hgb Hct MCV MCH RDW Plt Count [place] % (Auto) Seg Neutrophils % Seg Neutrophils # PT APTT D-Dimer ABG pH ABG pO2 ABG HCO3 ABG O2 Saturation ABG Base Excess ABG Hemoglobin Oxyhemoglobin Sodium Potassium Chloride Carbon Dioxide BUN Creatinine Glucose POC Glucose 122 H 139 H 126 H Lactic Acid Uric Acid Calcium Phosphorus Magnesium Ferritin Total Bilirubin AST Lactate Dehydrogenase Total Creatine Kinase C-Reactive Protein Total Protein Albumin TSH Free T3 Index Urine WBC (Auto) Urine Creatinine Salicylates Acetaminophen Valproic Acid SARS-CoV-2 (PCR) 07/25/22 07/25/22 07/25/22 00:10 04:22 04:22 WBC RBC 2.86 L Hgb 9.4 L Hct 28.5 L MCV 100 H MCH 33 H RDW 15.4 H Plt Count [place] % (Auto) Seg Neutrophils % Seg Neutrophils # PT APTT D-Dimer ABG pH ABG pO2 ABG HCO3 ABG O2 Saturation ABG Base Excess ABG Hemoglobin Oxyhemoglobin Sodium Potassium Chloride Carbon Dioxide 31 H BUN Creatinine 0.3 L Glucose 135 H POC Glucose 131 H Lactic Acid Uric Acid Calcium 8.0 L Phosphorus 2.20 L Magnesium Ferritin Total Bilirubin AST Lactate Dehydrogenase Total Creatine Kinase C-Reactive Protein Total Protein Albumin TSH Free T3 Index Urine WBC (Auto) Urine Creatinine Salicylates Acetaminophen Valproic Acid SARS-CoV-2 (PCR) 07/25/22 07/25/22 07/25/22 05:17 11:49 17:27 WBC RBC Hgb Hct MCV MCH RDW Plt Count [place] % (Auto) Seg Neutrophils % Seg Neutrophils # PT APTT D-Dimer ABG pH ABG pO2 ABG HCO3 ABG O2 Saturation ABG Base Excess ABG Hemoglobin Oxyhemoglobin Sodium Potassium Chloride Carbon Dioxide BUN Creatinine Glucose POC Glucose 155 H 140 H 123 H Lactic Acid Uric Acid Calcium Phosphorus Magnesium Ferritin Total Bilirubin AST Lactate Dehydrogenase Total Creatine Kinase C-Reactive Protein Total Protein Albumin TSH Free T3 Index Urine WBC (Auto) Urine Creatinine Salicylates Acetaminophen Valproic Acid SARS-CoV-2 (PCR) 07/25/22 07/26/22 07/26/22 23:57 06:00 06:08 WBC RBC Hgb Hct MCV MCH RDW Plt Count [place] % (Auto) Seg Neutrophils % Seg Neutrophils # PT APTT D-Dimer ABG pH ABG pO2 ABG HCO3 ABG O2 Saturation ABG Base Excess ABG Hemoglobin Oxyhemoglobin Sodium Potassium 3.5 L Chloride Carbon Dioxide 32 H BUN Creatinine 0.3 L Glucose 116 H POC Glucose 124 H 134 H Lactic Acid Uric Acid Calcium 7.9 L Phosphorus Magnesium Ferritin Total Bilirubin AST Lactate Dehydrogenase Total Creatine Kinase C-Reactive Protein Total Protein Albumin TSH Free T3 Index Urine WBC (Auto) Urine Creatinine Salicylates Acetaminophen Valproic Acid SARS-CoV-2 (PCR) 07/26/22 07/26/22 07/26/22 13:38 17:22 23:22 WBC RBC Hgb Hct MCV MCH RDW Plt Count [place] % (Auto) Seg Neutrophils % Seg Neutrophils # PT APTT D-Dimer ABG pH ABG pO2 ABG HCO3 ABG O2 Saturation ABG Base Excess ABG Hemoglobin Oxyhemoglobin Sodium Potassium Chloride Carbon Dioxide BUN Creatinine Glucose POC Glucose 112 H 123 H 117 H Lactic Acid Uric Acid Calcium Phosphorus Magnesium Ferritin Total Bilirubin AST Lactate Dehydrogenase Total Creatine Kinase C-Reactive Protein Total Protein Albumin TSH Free T3 Index Urine WBC (Auto) Urine Creatinine Salicylates Acetaminophen Valproic Acid SARS-CoV-2 (PCR) 07/26/22 07/27/22 07/27/22 Unknown 05:54 10:00 WBC RBC 2.61 L Hgb 8.8 L Hct 26.2 L MCV 100 H MCH 34 H RDW 15.6 H Plt Count [place] % (Auto) Seg Neutrophils % Seg Neutrophils # PT APTT D-Dimer ABG pH ABG pO2 ABG HCO3 ABG O2 Saturation ABG Base Excess ABG Hemoglobin Oxyhemoglobin Sodium Potassium Chloride Carbon Dioxide BUN Creatinine 0.3 L Glucose 125 H POC Glucose 124 H Lactic Acid Uric Acid Calcium 8.3 L Phosphorus 1.90 L Magnesium Ferritin Total Bilirubin AST Lactate Dehydrogenase Total Creatine Kinase C-Reactive Protein Total Protein Albumin TSH Free T3 Index Urine WBC (Auto) Urine Creatinine Salicylates Acetaminophen Valproic Acid SARS-CoV-2 (PCR) 07/27/22 07/27/22 07/27/22 11:06 18:32 23:20 WBC RBC Hgb Hct MCV MCH RDW Plt Count [place] % (Auto) Seg Neutrophils % Seg Neutrophils # PT APTT D-Dimer ABG pH ABG pO2 ABG HCO3 ABG O2 Saturation ABG Base Excess ABG Hemoglobin Oxyhemoglobin Sodium Potassium Chloride Carbon Dioxide BUN Creatinine Glucose POC Glucose 133 H 119 H 110 H Lactic Acid Uric Acid Calcium Phosphorus Magnesium Ferritin Total Bilirubin AST Lactate Dehydrogenase Total Creatine Kinase C-Reactive Protein Total Protein Albumin TSH Free T3 Index Urine WBC (Auto) Urine Creatinine Salicylates Acetaminophen Valproic Acid SARS-CoV-2 (PCR) 07/28/22 07/28/22 07/29/22 05:37 11:13 04:05 WBC RBC 2.64 L Hgb 8.8 L Hct 26.6 L MCV 101 H MCH 33 H RDW 16.4 H Plt Count [place] % (Auto) Seg Neutrophils % Seg Neutrophils # PT APTT D-Dimer ABG pH ABG pO2 ABG HCO3 ABG O2 Saturation ABG Base Excess ABG Hemoglobin Oxyhemoglobin Sodium Potassium Chloride Carbon Dioxide BUN Creatinine Glucose POC Glucose 127 H 115 H Lactic Acid Uric Acid Calcium Phosphorus Magnesium Ferritin Total Bilirubin AST Lactate Dehydrogenase Total Creatine Kinase C-Reactive Protein Total Protein Albumin TSH Free T3 Index Urine WBC (Auto) Urine Creatinine Salicylates Acetaminophen Valproic Acid SARS-CoV-2 (PCR) 07/29/22 07/29/22 07/29/22 04:05 05:20 11:06 WBC RBC Hgb Hct MCV MCH RDW Plt Count [place] % (Auto) Seg Neutrophils % Seg Neutrophils # PT APTT D-Dimer ABG pH ABG pO2 ABG HCO3 ABG O2 Saturation ABG Base Excess ABG Hemoglobin Oxyhemoglobin Sodium Potassium Chloride Carbon Dioxide 33 H BUN Creatinine 0.3 L Glucose 115 H POC Glucose 119 H 125 H Lactic Acid Uric Acid Calcium 8.2 L Phosphorus Magnesium Ferritin Total Bilirubin AST Lactate Dehydrogenase Total Creatine Kinase C-Reactive Protein Total Protein Albumin TSH Free T3 Index Urine WBC (Auto) Urine Creatinine Salicylates Acetaminophen Valproic Acid SARS-CoV-2 (PCR) 07/29/22 07/29/22 07/30/22 16:08 23:41 06:03 WBC RBC Hgb Hct MCV MCH RDW Plt Count [place] % (Auto) Seg Neutrophils % Seg Neutrophils # PT APTT D-Dimer ABG pH ABG pO2 ABG HCO3 ABG O2 Saturation ABG Base Excess ABG Hemoglobin Oxyhemoglobin Sodium Potassium Chloride Carbon Dioxide BUN Creatinine Glucose POC Glucose 111 H 120 H 110 H Lactic Acid Uric Acid Calcium Phosphorus Magnesium Ferritin Total Bilirubin AST Lactate Dehydrogenase Total Creatine Kinase C-Reactive Protein Total Protein Albumin TSH Free T3 Index Urine WBC (Auto) Urine Creatinine Salicylates Acetaminophen Valproic Acid SARS-CoV-2 (PCR) 07/30/22 07/30/22 07/30/22 11:18 14:15 14:15 WBC RBC 2.55 L Hgb 8.5 L Hct 25.7 L MCV 101 H MCH 33 H RDW 16.5 H Plt Count [place] % (Auto) Seg Neutrophils % Seg Neutrophils # PT APTT D-Dimer ABG pH ABG pO2 ABG HCO3 ABG O2 Saturation ABG Base Excess ABG Hemoglobin Oxyhemoglobin Sodium Potassium Chloride Carbon Dioxide BUN Creatinine 0.3 L Glucose POC Glucose 111 H Lactic Acid Uric Acid Calcium Phosphorus Magnesium Ferritin Total Bilirubin AST Lactate Dehydrogenase Total Creatine Kinase C-Reactive Protein Total Protein Albumin TSH Free T3 Index Urine WBC (Auto) Urine Creatinine Salicylates Acetaminophen Valproic Acid SARS-CoV-2 (PCR) 07/30/22 07/31/22 07/31/22 16:30 04:45 04:45 WBC RBC 2.67 L Hgb 8.9 L Hct 26.9 L MCV 101 H MCH 33 H RDW 17.0 H Plt Count [place] % (Auto) Seg Neutrophils % Seg Neutrophils # PT APTT D-Dimer ABG pH ABG pO2 ABG HCO3 ABG O2 Saturation ABG Base Excess ABG Hemoglobin Oxyhemoglobin Sodium Potassium Chloride Carbon Dioxide 32 H BUN Creatinine 0.3 L Glucose 108 H POC Glucose 111 H Lactic Acid Uric Acid Calcium Phosphorus Magnesium Ferritin Total Bilirubin AST Lactate Dehydrogenase Total Creatine Kinase C-Reactive Protein Total Protein Albumin TSH Free T3 Index Urine WBC (Auto) Urine Creatinine Salicylates Acetaminophen Valproic Acid SARS-CoV-2 (PCR) 07/31/22 07/31/22 07/31/22 05:21 11:33 17:57 WBC RBC Hgb Hct MCV MCH RDW Plt Count [place] % (Auto) Seg Neutrophils % Seg Neutrophils # PT APTT D-Dimer ABG pH ABG pO2 ABG HCO3 ABG O2 Saturation ABG Base Excess ABG Hemoglobin Oxyhemoglobin Sodium Potassium Chloride Carbon Dioxide BUN Creatinine Glucose POC Glucose 114 H 112 H 115 H Lactic Acid Uric Acid Calcium Phosphorus Magnesium Ferritin Total Bilirubin AST Lactate Dehydrogenase Total Creatine Kinase C-Reactive Protein Total Protein Albumin TSH Free T3 Index Urine WBC (Auto) Urine Creatinine Salicylates Acetaminophen Valproic Acid SARS-CoV-2 (PCR) 08/01/22 08/01/22 08/01/22 00:24 04:58 06:05 WBC RBC 2.72 L Hgb 9.0 L Hct 27.7 L MCV 102 H MCH 33 H RDW 17.4 H Plt Count [place] % (Auto) Seg Neutrophils % Seg Neutrophils # PT APTT D-Dimer ABG pH ABG pO2 ABG HCO3 ABG O2 Saturation ABG Base Excess ABG Hemoglobin Oxyhemoglobin Sodium Potassium Chloride Carbon Dioxide BUN Creatinine Glucose POC Glucose 108 H 121 H Lactic Acid Uric Acid Calcium Phosphorus Magnesium Ferritin Total Bilirubin AST Lactate Dehydrogenase Total Creatine Kinase C-Reactive Protein Total Protein Albumin TSH Free T3 Index Urine WBC (Auto) Urine Creatinine Salicylates Acetaminophen Valproic Acid SARS-CoV-2 (PCR) 09/22/22 09/22/22 09/23/22 11:48 18:30 00:26 WBC RBC Hgb Hct MCV MCH RDW Plt Count [place] % (Auto) Seg Neutrophils % Seg Neutrophils # PT APTT D-Dimer ABG pH ABG pO2 ABG HCO3 ABG O2 Saturation ABG Base Excess ABG Hemoglobin Oxyhemoglobin Sodium Potassium Chloride Carbon Dioxide BUN Creatinine Glucose POC Glucose 123 H 118 H 106 H Lactic Acid Uric Acid Calcium Phosphorus Magnesium Ferritin Total Bilirubin AST Lactate Dehydrogenase Total Creatine Kinase C-Reactive Protein Total Protein Albumin TSH Free T3 Index Urine WBC (Auto) Urine Creatinine Salicylates Acetaminophen Valproic Acid SARS-CoV-2 (PCR) 08/02/22 08/02/22 08/02/22 05:00 05:57 13:23 WBC RBC Hgb Hct MCV MCH RDW Plt Count [place] % (Auto) Seg Neutrophils % Seg Neutrophils # PT APTT D-Dimer ABG pH ABG pO2 ABG HCO3 ABG O2 Saturation ABG Base Excess ABG Hemoglobin Oxyhemoglobin Sodium Potassium Chloride Carbon Dioxide BUN Creatinine 0.4 L Glucose POC Glucose 119 H 112 H Lactic Acid Uric Acid Calcium Phosphorus Magnesium Ferritin Total Bilirubin AST Lactate Dehydrogenase Total Creatine Kinase C-Reactive Protein Total Protein Albumin TSH Free T3 Index Urine WBC (Auto) Urine Creatinine Salicylates Acetaminophen Valproic Acid SARS-CoV-2 (PCR) 08/02/22 08/02/22 08/03/22 17:29 23:28 06:27 WBC RBC Hgb Hct MCV MCH RDW Plt Count [place] % (Auto) Seg Neutrophils % Seg Neutrophils # PT APTT D-Dimer ABG pH ABG pO2 ABG HCO3 ABG O2 Saturation ABG Base Excess ABG Hemoglobin Oxyhemoglobin Sodium Potassium Chloride Carbon Dioxide BUN Creatinine Glucose POC Glucose 120 H 108 H 140 H Lactic Acid Uric Acid Calcium Phosphorus Magnesium Ferritin Total Bilirubin AST Lactate Dehydrogenase Total Creatine Kinase C-Reactive Protein Total Protein Albumin TSH Free T3 Index Urine WBC (Auto) Urine Creatinine Salicylates Acetaminophen Valproic Acid SARS-CoV-2 (PCR) 08/03/22 08/03/22 08/03/22 10:08 13:07 18:38 WBC RBC Hgb Hct MCV MCH RDW Plt Count [place] % (Auto) Seg Neutrophils % Seg Neutrophils # PT APTT D-Dimer ABG pH ABG pO2 ABG HCO3 ABG O2 Saturation ABG Base Excess ABG Hemoglobin Oxyhemoglobin Sodium Potassium Chloride Carbon Dioxide BUN Creatinine Glucose POC Glucose 113 H 109 H 122 H Lactic Acid Uric Acid Calcium Phosphorus Magnesium Ferritin Total Bilirubin AST Lactate Dehydrogenase Total Creatine Kinase C-Reactive Protein Total Protein Albumin TSH Free T3 Index Urine WBC (Auto) Urine Creatinine Salicylates Acetaminophen Valproic Acid SARS-CoV-2 (PCR)
[2022-08-04] MEDS: SENNOSIDES/DOCUSATE SODIUM 8.6/50 MG TAB FEEDTUBE SCH ×2 (09:40→22:19)
[2022-08-04] MEDS: INSULIN LISPRO 100 UNIT/ML SUB-Q SCH ×3 (09:40→19:21)
[2022-08-04] MEDS: CHOLECALCIFEROL (VIT D3) 1000 UNIT (25 mcg) TAB FEEDTUBE SCH (09:40)
[2022-08-04] MEDS: APIXABAN 5 MG TAB FEEDTUBE SCH ×2 (09:40→22:20)
[2022-08-04] MEDS: FAMOTIDINE 20 MG TAB FEEDTUBE SCH ×2 (09:40→22:21)
[2022-08-04] MEDS: VALPROIC ACID 250 MG/5 ML ORAL LIQD FEEDTUBE SCH ×2 (09:40→22:20)
--- NOTE | 2022-08-04 09:56 | Progress Note ---
Assessment and Plan Assessment and plan: This is a 76-year-old female with CVA, pulmonary embolism, hypothyroidism and JUJU admitted with electrolyte imbalances, hypoxic respiratory failure and COVID- 19 pneumonia Neuro: Acute metabolic encephalopathy, h/o CVA with hemiplegia, dysphagia, aphasia, dementia -Neurology consulted, appreciate recommendations -Reorientation as needed -Maintain sleep-wake cycle -Resume home Lipitor -As needed analgesia -CT head shows no acute intracranial hemorrhage, multiple chronic appearing infarcts including left MCA distribution, left cerebral hemisphere and within the right basal ganglia -Depakene -EEG compatible with significant diffuse encephalopathy -MRI shows no acute findings, remote infarction of the left frontal lobe and left cerebellum, moderate sequela of chronic microvascular disease Cardiac: h/o HLD -Resume home Lipitor -Blood pressure monitoring per protocol Respiratory: Acute hypoxic respiratory failure, h/o JUJU, pulmonary embolism -CCM consulted, appreciate recommendations -Intubated on 07/07 with a 7.50 ETT at 24 the lips -07/22 s/p Trach/PEG -A.m. vent settings: AC rate 10, tidal and 400, PEEP 6, FiO2 28 -See RT notes for titration -Daily CPAP trials as tolerated -A.m. ABG and CXR noted -VAP bundle -SPO2 monitoring -Eliquis restarted GI: NAD -PPI -07/22 s/p PEG -NTR consulted for tube feedings -BR: Senokot-S : Rhabdomyolysis -Nephrology consulted, appreciate recommendations -Monitor intake and output -Free water flush -Renally dose medications -Avoid nephrotoxic medications -Trend BMP ID: COVID-19 pneumonia, lactic acidosis, Klebsiella pneumonia -Infectious disease consulted, appreciate recommendation -s/p Azithromycin 07/07-07/10, Rocephin -Decadron 10mg for 10 days () -s/p Remdesivir () -CRP 0.3, procalcitonin 0.19 -Contact/droplet precautions discontinued -f/u blood culture -Trend COVID-19 inflammatory markers -Monitor WBC and temperature curve -Prophylactic anticoagulation based on D-dimer per hospital protocol Endo: h/o hypothyroidism -Avoid hypoglycemia -SSI -Accu-Cheks q. 6 -Long-acting insulin, titrate as needed -Resume home Synthroid Heme: NAD -Trend CBC -Transfuse hemoglobin less than 7 -SCDs to BLE while in bed The high probability of a clinically significant, sudden or life threatening deterioration of the [multi] system(s) required my full and direct attention, intervention and personal management. The aggregate critical care time was [60] minutes. This time is in addition to time spent performing reported procedures but includes the following: [x] Data Review and interpretation [x] Patient assessment and monitoring of vital signs [x] Documentation [x] Medication orders and management Disposition Plan: icu Total Time Spent with Patient (Minutes): 60 History Interval history: This is a 76-year-old female with CVA resulting hemiplegia, dysphagia, aphasia, dementia, pulm embolism without acute cor pulmonale, hypothyroidism and JUJU who presented to the hospital on 07/07 from her half-way for altered mental status and diminished cognition and possible hypoxia via EMS. In the emergency department patient was intubated due to concern for airway protection. Recommend emergency department showed leukocytosis, hyponatremia with a sodium of 168, hypercalcemia, hypomagnesemia, elevated CK. Patient was admitted to the hospitalist service with acute hypoxic respiratory failure, COVID-19 PUI, hypernatremia, transaminitis, rhabdomyolysis with consults to CCM and nephrology: Hospital course to date: 07/08: Patient noted to be COVID-positive, started on remdesivir, Decadron, ceftriaxone azithromycin and infectious disease was consulted yesterday. This morning patient is on any sedation, PICC line to be placed. RT to attempt PSV. Started on free water flushes and tube feedings. Continues on D5 half-normal saline. 07/09: Patient remains encephalopathic, not on any sedation. Hypernatremia is improving, on FWF Q4hrs and D5w gtt per Nephro. If hypernatremia continue to improve and patient's mentation is unchanged, will get a repeat CT to r/o intracranial abnormalities. Patient remains afebrile, leukocytosis improved, and VSS. Continue current IV abx per ID. Patient failed PSV trial again today, continue PSV trial as tolerated 07/10: Remains stable on the vent, tolerating PSV trial this am. sodium continue to improve but no change in mental status. D/w CCM will get MRI brain to r/o any intracranial abnormalities, EEG also ordered to r/o seizures. Continue FWF and D5w gtt per Nephro. Continue IV steroids and current IV abx per ID. 07/11: Hypernatremia resolved, mentation is unchanged, remains on low vent setting. EEG noted, and MRI brain pending. Will consult Neurology for further recommendations. Continue daily PSV trial as tolerated. 07/12: Appears more awake this morning but still not following any commands. MRI brain with no acute findings and sodium normalized. Awaiting Neuro consult. Continue daily PSV trial as tolerated. Patient's daughter was updated via phone, all questions and concerns were addressed at this time. Medical records requested from [facility] and [facility]. 07/13: DELMI overnight. Mentation is unchanged, remains stable on the vent. Neurology consult pending. Continue vent adjustment per [facility] and daily PSV trial as tolerated. 07/14: Mentation is unchanged, remains afebrile and stable on the vent, VSS. Complete antibiotics course, still on IV steroids X3 more days. ID recommendations noted, remove corbin. Continue daily PSV trial as tolerated. 07/15: DELMI overnight, mentation unchanged, VSS. Patient failed PSV trial this am due to apnea. Continue daily PSV trial as tolerated. Possible trach and Peg per [facility]. 07/16: No acute events overnight, attempted PSV again today. [facility] to have family meeting on 07/17 to discuss trach/PEG 07/17: [facility] will have family meeting tomorrow. Failed PSV again. No acute events overnight. Thrombocytopenia continues to improve 07/18: [facility] held a family meeting today and surgery will be consulted for trach/PEG placement. Family stated that patient had not had her levothyroxine for several months due to decreased p.o. intake, will send thyroid panel. No acute events reported overnight. Hypotension today and 500 mL normal saline bolus given. Possible trach/peg within 2 days 07/19: No acute events reported overnight. Free T4 normal. Failed PSV 07/20: No acute events reported overnight. Patient taken off isolation per ID. Trach/PEG scheduled for Friday. failed PSV 07/21: No acute events reported overnight. Trach/peg for friday. PSV ongoing 07/22: Remains stable, DELMI overnight. Plan for possible Trac/PEG today by general surgery. Continue dailu PSV trial as tolerated. 07/23: s/p trach and PEG, remains stable on low vent setting, recent CXR is unremarkable. VSS. Resume TF once okayed by General Surgery. Continue daily PSV trial as tolerated. Possible LTAC placement, case management to arrange. 07/24: Remains stable on the vent, tolerating TF via Peg. Continue supportive measures and daily PSV trial. Awaiting placement. 07/25: DELMI overnight. Continue supportive measures and daily PSV trial. PT/OT consulted. Awaiting placement, case management to arrange. 07/26: DELMI overnight. Continue supportive measures and daily PSV trial. Awaiting placement, case management to arrange. 07/27: Patient failed PSV trial this am due to periods of apnea. Continue daily P SV trial as tolerated. Awaiting placement, case management to arrange. 07/28: DELMI overnight. Continue daily PSV trial as tolerated. Awaiting placement, case management to arrange. 07/29: No acute events reported overnight, failed CPAP trial. 07/30: CPAP trial, no acute events reported overnight. Continue supportive care. Awaiting LTAC placement. 07/31: No acute events reported overnight. Failed CPAP trial. 08/01: No acute events reported overnight, continue supportive care. Failed CPAP again. 08/02: no acute events, cpap trials as tolerated 08/03: Tolerating pressure support trial. No acute events reported overnight. We will get labs in the morning. 08/04: Continue CPAP trials, labs ordered for a.m. No acute reported overnight Hospitalist Physical - Constitutional Vitals: Temp Pulse Resp BP Pulse Ox 98.2 F 100 H 8 L 146/80 100 08/04/22 07:28 08/04/22 09:00 08/04/22 09:00 08/04/22 09:00 08/04/22 09:00 General appearance: Present: no acute distress - EENT Eyes: Present: PERRL, EOM intact ENT: hearing intact, clear oral mucosa - Neck Neck: Present: normal ROM - Respiratory Respiratory effort: normal Respiratory: bilateral: diminished - Cardiovascular Rhythm: regular Heart Sounds: Present: S1 & S2. Absent: systolic murmur, diastolic murmur - Extremities Extremities: no ischemia, pulses intact, pulses symmetrical, No edema, normal temperature, normal color Peripheral Pulses: within normal limits - Abdominal General gastrointestinal: soft, non-tender, non-distended, normal bowel sounds - Psychiatric Psychiatric: cooperative - Neurologic Neurologic: other (track/focus, perrl) - Allied Health Allied health notes reviewed: nursing, RT HEART Score - HEART Score Troponin: Troponin T 0.010 ng/mL (0.00-0.029) 07/07/22 04:17 Results - Labs CBC & Chem 7: 08/01/22 04:58 08/02/22 05:00 Labs: Laboratory Last Values WBC 6.1 K/mm3 (4.5-11.0) 08/01/22 04:58 RBC 2.72 M/mm3 (3.65-5.03) L 08/01/22 04:58 Hgb 9.0 gm/dl (10.1-14.3) L 08/01/22 04:58 Hct 27.7 % (30.3-42.9) L 08/01/22 04:58 MCV 102 fl (79-97) H 08/01/22 04:58 MCH 33 pg (28-32) H 08/01/22 04:58 MCHC 33 % (30-34) 08/01/22 04:58 RDW 17.4 % (13.2-15.2) H 08/01/22 04:58 Plt Count 326 K/mm3 (140-440) 08/01/22 04:58 Lymph % (Auto) 33.3 % (13.4-35.0) 07/22/22 04:13 [place] % (Auto) 10.0 % (0.0-7.3) H 07/22/22 04:13 Eos % (Auto) 0.5 % (0.0-4.3) 07/22/22 04:13 Baso % (Auto) 0.1 % (0.0-1.8) 07/22/22 04:13 Lymph # (Auto) 2.1 K/mm3 (1.2-5.4) 07/22/22 04:13 [place] # (Auto) 0.6 K/mm3 (0.0-0.8) 07/22/22 04:13 Eos # (Auto) 0.0 K/mm3 (0.0-0.4) 07/22/22 04:13 Baso # (Auto) 0.0 K/mm3 (0.0-0.1) 07/22/22 04:13 Seg Neutrophils % 56.1 % (40.0-70.0) 07/22/22 04:13 Seg Neutrophils # 3.6 K/mm3 (1.8-7.7) 07/22/22 04:13 PT 13.0 Sec. (12.2-14.9) 07/30/22 14:15 INR 0.89 (0.87-1.13) 07/30/22 14:15 APTT 32.6 Sec. (24.2-36.6) 07/30/22 14:15 D-Dimer 925.80 ng/mlDDU (0-234) H 07/12/22 04:00 ABG pH 7.503 pH Units (7.350-7.450) H 07/20/22 05:30 ABG pCO2 42.7 mm Hg 07/20/22 05:30 ABG pO2 99.1 mm Hg (80.0-90.0) H 07/20/22 05:30 ABG HCO3 32.8 mmol/L (20.0-26.0) H 07/20/22 05:30 ABG O2 Saturation 97.8 % (95.0-99.0) 07/20/22 05:30 ABG O2 Content 13.3 (0.0-44) 07/20/22 05:30 ABG Base Excess 8.8 mmol/L (-2.0-3.0) H 07/20/22 05:30 ABG Hemoglobin 9.7 gm/dl (12.0-16.0) L 07/20/22 05:30 ABG Carboxyhemoglobin 1.3 % (0.0-5.0) 07/20/22 05:30 ABG Methemoglobin 0.6 % (0.0-1.5) 07/20/22 05:30 Oxyhemoglobin 95.9 % (95.0-99.0) 07/20/22 05:30 FiO2 28 % 07/20/22 05:30 Sodium 140 mmol/L (137-145) 07/31/22 04:45 Potassium 4.2 mmol/L (3.6-5.0) 07/31/22 04:45 Chloride 102.5 mmol/L (98-107) 07/31/22 04:45 Carbon Dioxide 32 mmol/L (22-30) H 07/31/22 04:45 Anion Gap 10 mmol/L 07/31/22 04:45 BUN 13 mg/dL (7-17) 07/31/22 04:45 Creatinine 0.4 mg/dL (0.6-1.2) L 08/02/22 05:00 Estimated GFR > 60 ml/min 08/02/22 05:00 BUN/Creatinine Ratio 43 % 07/31/22 04:45 Glucose 108 mg/dL (65-100) H 07/31/22 04:45 POC Glucose 122 mg/dL (70-105) H 08/03/22 18:38 Lactic Acid 2.10 mmol/L (0.7-2.0) H* 07/10/22 08:24 Uric Acid 13.5 mg/dL (3.5-7.6) H 07/07/22 04:17 Calcium 8.9 mg/dL (8.4-10.2) 07/31/22 04:45 Phosphorus 3.00 mg/dL (2.5-4.5) 07/29/22 04:05 Magnesium 1.70 mg/dL (1.7-2.3) 07/29/22 04:05 Ferritin 519.5 ng/mL (10.0-200.0) H 07/12/22 04:00 Total Bilirubin 0.30 mg/dL (0.1-1.2) 07/10/22 04:21 AST 89 units/L (5-40) H 07/10/22 04:21 ALT 53 units/L (7-56) 07/10/22 04:21 Alkaline Phosphatase 83 units/L (35-129) 07/10/22 04:21 Ammonia 32.0 umol/L (25-60) 07/07/22 04:17 Lactate Dehydrogenase 444 units/L (91-180) H 07/12/22 04:00 Total Creatine Kinase 84 units/L (30-135) 08/04/22 04:00 Troponin T 0.010 ng/mL (0.00-0.029) 07/07/22 04:17 C-Reactive Protein 0.30 mg/dL (0.00-1.30) 07/12/22 04:00 Total Protein 4.9 g/dL (6.3-8.2) L 07/10/22 04:21 Albumin 2.5 g/dL (3.9-5) L 07/10/22 04:21 Albumin/Globulin Ratio 1.0 % 07/10/22 04:21 Procalcitonin 0.19 ng/mL (<0.15) 07/08/22 14:54 TSH 9.750 mlU/mL (0.270-4.200) H 07/18/22 12:31 Free T4 0.78 ng/dL (0.76-1.46) 07/18/22 12:31 Thyroxine (T4) 6.2 ug/dL (4.0-12.0) 07/18/22 12:31 Free T3 Index 1.7 pg/mL (2.3-4.2) L 07/18/22 12:31 Total Cortisol 47.9 mcg/dL () 07/07/22 07:43 Urine Color Yellow (Yellow) 07/07/22 03:17 Urine Turbidity Slightly cloudy (Clear) 07/07/22 03:17 Specific [place] (Man) 1.015 (1.003-1.030) 07/07/22 03:17 Ur Protein (Man) 1+ mg/dL (Negative) 07/07/22 03:17 Ur Ketones (Man) Negative (Negative) 07/07/22 03:17 Ur Nitrite (Man) Negative (Negative) 07/07/22 03:17 Urine Bilirubin (Man) Negative (Negative) 07/07/22 03:17 Leukocyte Esterase (Man) Negative (Negative) 07/07/22 03:17 Urine WBC (Auto) 7.0 /HPF (0.0-6.0) H 07/07/22 03:17 Urine RBC (Auto) 1.0 /HPF (0.0-6.0) 07/07/22 03:17 U Epithel Cells (Auto) 4.0 /HPF (0-13.0) 07/07/22 03:17 Urine Bacteria (Auto) 3+ /HPF (Negative) 07/07/22 03:17 Urine RBC (Manual) 3+ (Negative) 07/07/22 03:17 Urine Mucus 3+ /HPF 07/07/22 03:17 Urine Osmolality 744 Mosm/kg 07/07/22 16:45 Urine Creatinine 92.9 mg/dL (0.1-20.0) H 07/07/22 16:45 Urine Sodium 109 mmol/L 07/07/22 16:45 Salicylates < 0.3 mg/dL (2.8-20.0) L 07/07/22 03:38 Urine Opiates Screen Presumptive negative 07/07/22 03:17 Urine Methadone Screen Presumptive negative 07/07/22 03:17 Acetaminophen 5.0 ug/mL (10.0-30.0) L 07/07/22 03:38 Ur Barbiturates Screen Presumptive negative 07/07/22 03:17 Valproic Acid 7.0 ug/mL (50-100) L 07/07/22 03:38 Ur Phencyclidine Scrn Presumptive negative 07/07/22 03:17 Ur Amphetamines Screen Presumptive negative 07/07/22 03:17 U Benzodiazepines Scrn Presumptive negative 07/07/22 03:17 Urine Cocaine Screen Presumptive negative 07/07/22 03:17 U Marijuana (THC) Screen Presumptive negative 07/07/22 03:17 Drugs of Abuse Note Disclamer 07/07/22 03:17 Plasma/Serum Alcohol < 0.01 % (0-0.07) 07/07/22 03:38 SARS-CoV-2 (PCR) Positive (Negative) A 07/07/22 15:00 [place]/IV: Voiding Method External Female Catheter Active Medications - Current Medications Current Medications: Generic Name Dose Route Start Last Admin Trade Name Freq PRN Reason Stop Dose Admin Acetaminophen 650 mg 07/13/22 12:00 07/25/22 21:28 Acetaminophen 325 Mg/10.15 Ml Oral Liqd Unit Dose FEEDTUBE 650 mg Q6H PRN Administration Pain MILD(1-3)/Fever >100.5/LEE Apixaban 5 mg 07/30/22 22:00 08/04/22 09:40 Apixaban 5 Mg Tab FEEDTUBE 5 mg Q12HR ERROL Administration Protocol Atorvastatin Calcium 80 mg 07/10/22 22:00 08/03/22 23:21 Atorvastatin 40 Mg Tab FEEDTUBE 80 mg QHS ERROL Administration Cholecalciferol 1,000 unit 07/10/22 10:00 08/04/22 09:40 Cholecalciferol (Vit D3) 1000 Unit (25 Mcg) Tab FEEDTUBE 1,000 unit QDAY ERROL Administration Dextrose 50 ml 07/09/22 11:42 Dextrose 50% In Water (25gm) 50 Ml Syringe IV Q30MIN PRN Hypoglycemia Protocol Famotidine 20 mg 07/09/22 22:00 08/04/22 09:40 Famotidine 20 Mg Tab FEEDTUBE 20 mg BID ERROL Administration Hydrophilic Ointment 1 applic 07/07/22 02:48 Lip Therapy Vaseline TP Q2HR PRN Dry Lips Insulin Human Lispro 0 unit 07/09/22 12:00 08/04/22 09:40 Insulin Lispro 100 Unit/Ml SUB-Q Not Given Q6HR ERROL Protocol Levothyroxine Sodium 75 mcg 07/11/22 06:00 08/04/22 06:02 Levothyroxine 75 Mcg Tab FEEDTUBE 75 mcg QAM@0600 ERROL Administration Multi-Ingred Cream/Lotion/Oil/Oint 1 applic 07/07/22 02:48 Mineral Oil/Petrolatum, White Ophth Oint 3.5 Gm OU Q4HR PRN Dry Eye(s) Senna/Docusate Sodium 1 tab 07/07/22 10:00 08/04/22 09:40 Sennosides/Docusate Sodium 8.6/50 Mg Tab FEEDTUBE 1 tab BID ERROL Administration Sodium Chloride 10 ml 07/07/22 13:00 08/04/22 09:40 Sodium Chloride 0.9% 10 Ml Flush Syringe IV 10 ml BID ERROL Administration Sodium Chloride 10 ml 07/07/22 12:09 Sodium Chloride 0.9% 10 Ml Flush Syringe IV PRN PRN LINE FLUSH Valproic Acid 250 mg 07/10/22 22:00 08/04/22 09:40 Valproic Acid 250 Mg/5 Ml Oral Liqd FEEDTUBE 250 mg Q12H ERROL Administration Nutrition/Malnutrition Assess - Dietary Evaluation Nutrition/Malnutrition Findings: Nutrition Notes Start: 07/07/22 13:24 Freq: Status: Active Protocol: Document 07/24/22 09:24 DAREN (Rec: 07/24/22 09:53 DAREN [email or web address]) Nutrition Notes Initial or Follow up Reassessment Current Diagnosis Respiratory Failure,Stroke, Hyperlipidemia Other Pertinent Diagnosis COVID-19, Metabolic Encephalopathy, Pulmonary Embolism, Dementia. Current Diet TF-Vital AF 1.2 [place] @ 50 ml/hr (from D 07/12). Labs/Tests 07/24: CO2 33, Crea 0.4, Ca 8. 3. Pertinent Medications 07/24: Vit D3, D5w @ 50ml/hr, Levothyroxine, others nutritionally unremarkable. Height 5 ft 6 in Weight 96.2 kg [place] Body Weight (kg) 59.09 BMI 34.2 Weight change and time frame 0.946 Kg body weight gain in 1 week reported. Weight Status Obese Subjective/Other Information RD consult for routine F/U on TF tolerance/continuation assessment. TF continues as prescribed, and well tolerated, according to RN notes. Pt continues on Mechanical Ventilation, O2 saturation @ 98%, according to Physical Assessment History notes. Procedure on 07/22: Percutaneous Tracheostomy and EGD w/PEG-tube placement, well tolerated. according to Operative Report notes. TF resumed on 07/23, after PEG -tube placement, according to Progress notes. Possible discharge to LTAC facility, according to Progress notes. Percent of energy/protein needs met: Prescribed TF-Vital AF 1.2 [place] @ 50 ml/hr provides for energy/protein needs (1,440 Kcal/90 g) during LOS, 101% Kcal, 91% AA. Burn Absent Trauma Absent GI Symptoms Other Difficulty In Swallowing,Chewing Food Allergy No Skin Integrity/Comment Assessment WNL. Current % PO Other Minimum of two criteria Yes Energy Intake (non-severe) <75% Estimated Energy Requirement >7 days Interpretation of Weight Loss (non- 5% in 1 month severe) Fluid Accumulation N/A Protein-Calorie Malnutrition Non-Severe #2 Nutrition Diagnosis Malnutrition Comments: TF continues as prescribed, and well tolerated, according to RN notes. Diagnosis Progress(for reassessment Improved documentation) #1 Nutrition Diagnosis Inadequate oral intake Comments: Procedure on 07/22: Percutaneous Tracheostomy and EGD w/PEG-tube placement, well tolerated. according to Operative Report notes. TF resumed on 07/23, after PEG -tube placement, according to Progress notes. Diagnosis Progress(for reassessment Continues documentation) Is patient on ventilator? Yes Is Patient Ambulatory and/or Out of Bed No REE-([facility]-confined to bed) 1774.548 Kcal/Kg value to use for calculation 15 Approximate Energy Requirements Using 1443 kcal/Kg Calculation Used for Recommendations Kcal/kg Additional Notes Protein: 1.3 g/Kg AdjBW; 101 g /day. Fluids: 1 ml/Kcal, or as per MD. Nutrition Intervention Nutrition Support: Continue TF-Vital AF 1.2 [place] @ 50 ml/hr. Flush: 75 ml water Q 4 hr, or as per MD. Kcal 1,440 Protein (gm) 90 Carbohydrates (gm) 133 Fat (gm) 65 Fluid (mL) 973 Fiber (gm) 6 % RDI: 101% Kcal; 91% AA. Goal #1 Provide at least 75% of energy /protein needs through Enteral Feeding during LOS. Follow-Up By: 08/07/22 Additional Comments Continue monitoring TF tolerance, ventilation status, and BM.
[2022-08-05] MEDS: INSULIN LISPRO 100 UNIT/ML SUB-Q SCH ×4 (00:17→13:10)
[2022-08-05 05:19] LABS: Hematocrit 28.1 % (30.3-42.9); Hemoglobin 9.2 gm/dl (10.1-14.3); Mean Corpuscular HGB Conc 33 % (30-34); Mean Corpuscular Volume 102 fl (79-97); Platelet Count 416 K/mm3 (140-440); Red Blood Count 2.76 M/mm3 (3.65-5.03); Red Cell Distribution Width 18.7 % (13.2-15.2)
[2022-08-05 05:29] LABS: Blood Urea Nitrogen 17 mg/dL (7-17); Calcium 8.8 mg/dL (8.4-10.2); Hemolysis Index 2
[2022-08-05 05:40] LABS: BUN/Creatinine Ratio 57
[2022-08-05] MEDS: LEVOTHYROXINE 75 MCG TAB FEEDTUBE SCH (06:26)
[2022-08-05] MEDS: APIXABAN 5 MG TAB FEEDTUBE SCH ×2 (09:25→22:31)
[2022-08-05] MEDS: SENNOSIDES/DOCUSATE SODIUM 8.6/50 MG TAB FEEDTUBE SCH ×2 (09:26→22:31)
[2022-08-05] MEDS: FAMOTIDINE 20 MG TAB FEEDTUBE SCH ×2 (09:26→22:31)
[2022-08-05] MEDS: CHOLECALCIFEROL (VIT D3) 1000 UNIT (25 mcg) TAB FEEDTUBE SCH (09:26)
[2022-08-05] MEDS: VALPROIC ACID 250 MG/5 ML ORAL LIQD FEEDTUBE SCH ×2 (09:29→22:33)
--- NOTE | 2022-08-05 10:58 | Progress Note ---
Assessment and Plan Assessment and plan: This is a 76-year-old female with CVA, pulmonary embolism, hypothyroidism and JUJU admitted with electrolyte imbalances, hypoxic respiratory failure and COVID- 19 pneumonia Hospital Course to Date: 07/08: Patient noted to be COVID-positive, started on remdesivir, Decadron, ceftriaxone azithromycin and infectious disease was consulted yesterday. This morning patient is on any sedation, PICC line to be placed. RT to attempt PSV. Started on free water flushes and tube feedings. Continues on D5 half-normal saline. 07/09: Patient remains encephalopathic, not on any sedation. Hypernatremia is improving, on FWF Q4hrs and D5w gtt per Nephro. If hypernatremia continue to improve and patient's mentation is unchanged, will get a repeat CT to r/o intracranial abnormalities. Patient remains afebrile, leukocytosis improved, and VSS. Continue current IV abx per ID. Patient failed PSV trial again today, continue PSV trial as tolerated 07/10: Remains stable on the vent, tolerating PSV trial this am. sodium continue to improve but no change in mental status. D/w CCM will get MRI brain to r/o any intracranial abnormalities, EEG also ordered to r/o seizures. Continue FWF and D5w gtt per Nephro. Continue IV steroids and current IV abx per ID. 07/11: Hypernatremia resolved, mentation is unchanged, remains on low vent setting. EEG noted, and MRI brain pending. Will consult Neurology for further recommendations. Continue daily PSV trial as tolerated. 07/12: Appears more awake this morning but still not following any commands. MRI brain with no acute findings and sodium normalized. Awaiting Neuro consult. Continue daily PSV trial as tolerated. Patient's daughter was updated via phone, all questions and concerns were addressed at this time. Medical records requested from [facility] and [facility]. 07/13: DELMI overnight. Mentation is unchanged, remains stable on the vent. Neur ology consult pending. Continue vent adjustment per CCM and daily PSV trial as tolerated. 07/14: Mentation is unchanged, remains afebrile and stable on the vent, VSS. Complete antibiotics course, still on IV steroids X3 more days. ID recommendations noted, remove corbin. Continue daily PSV trial as tolerated. 07/15: DELMI overnight, mentation unchanged, VSS. Patient failed PSV trial this am due to apnea. Continue daily PSV trial as tolerated. Possible trach and Peg per [facility]. 07/16: No acute events overnight, attempted PSV again today. [facility] to have family meeting on 07/17 to discuss trach/PEG 07/17: CCM will have family meeting tomorrow. Failed PSV again. No acute events overnight. Thrombocytopenia continues to improve 07/18: [facility] held a family meeting today and surgery will be consulted for trach/PEG placement. Family stated that patient had not had her levothyroxine for several months due to decreased p.o. intake, will send thyroid panel. No acute events reported overnight. Hypotension today and 500 mL normal saline bolus given. Possible trach/peg within 2 days 07/19: No acute events reported overnight. Free T4 normal. Failed PSV 07/20: No acute events reported overnight. Patient taken off isolation per ID. Trach/PEG scheduled for Friday. failed PSV 07/21: No acute events reported overnight. Trach/peg for friday. PSV ongoing 07/22: Remains stable, DELMI overnight. Plan for possible Trac/PEG today by general surgery. Continue dailu PSV trial as tolerated. 07/23: s/p trach and PEG, remains stable on low vent setting, recent CXR is unremarkable. VSS. Resume TF once okayed by General Surgery. Continue daily PSV trial as tolerated. Possible LTAC placement, case management to arrange. 07/24: Remains stable on the vent, tolerating TF via Peg. Continue supportive measures and daily PSV trial. Awaiting placement. 07/25: DELMI overnight. Continue supportive measures and daily PSV trial. PT/OT consulted. Awaiting placement, case management to arrange. 07/26: DELMI overnight. Continue supportive measures and daily PSV trial. Awaiting placement, case management to arrange. 07/27: Patient failed PSV trial this am due to periods of apnea. Continue daily PSV trial as tolerated. Awaiting placement, case management to arrange. 07/28: DELMI overnight. Continue daily PSV trial as tolerated. Awaiting placement, case management to arrange. 07/29: No acute events reported overnight, failed CPAP trial. 07/30: CPAP trial, no acute events reported overnight. Continue supportive care. Awaiting LTAC placement. 07/31: No acute events reported overnight. Failed CPAP trial. 08/01: No acute events reported overnight, continue supportive care. Failed CPAP again. 08/02: no acute events, cpap trials as tolerated 08/03: Tolerating pressure support trial. No acute events reported overnight. We will get labs in the morning. 08/04: Continue CPAP trials, labs ordered for a.m. No acute reported overnight 08/05: DELMI overnight. Continue daily PSV trial as tolerated. Awaiting placement, case management to arrange. Assessment and Plan Neuro: Acute metabolic encephalopathy, h/o CVA with hemiplegia, dysphagia, aphasia, dementia -Reorientation as needed -Maintain sleep-wake cycle -Resume home Lipitor -As needed analgesia -CT head shows no acute intracranial hemorrhage, multiple chronic appearing infarcts including left MCA distribution, left cerebral hemisphere and within the right basal ganglia -Depakene -EEG noted -MRI noted -Neurology consult pending Cardiac: h/o HLD -Resume home Lipitor -Blood pressure monitoring per protocol Respiratory: Acute hypoxic respiratory failure, h/o JUJU, pulmonary embolism -CCM consulted, appreciate recommendations -Intubated on 07/07 -07/22 s/p Trach/PEG -A.m. vent settings:PRVC-28%,6,10,400 -See RT notes for titration -A.m. ABG and CXR noted -VAP bundle -SPO2 monitoring GI:TF -07/22 s/p PEGtube placement -PPI -NTR consulted for tube feedings -BR: Senokot-S : Hypernatremia(resolved), hypokalemia, rhabdomyolysis -Nephrology consulted, appreciate recommendations -Monitor intake and output -Free water flush -Renally dose medications -Avoid nephrotoxic medications -Replete potassium -Trend BMP ID: COVID Pneumonia, lactic acidosis -Infectious disease consulted, appreciate recommendation -completed IV antibiotics course -Dexamethasone for 10 days, end 07/17 -Contact/droplet precautions -f/u blood culture -Trend COVID-19 inflammatory markers -Monitor WBC and temperature curve -Prophylactic anticoagulation based on D-dimer per hospital protocol Heme: Thrombocytopenia-improved -Patient presented with low plt -Plt continue to trend down, but less than 50% of admit count -No s/s of any active bleeding, H&H stable -Continue to trend CBC -On Heparin SubQ -Transfuse for plt less than 20 and hgb less than 7 Endo: h/o hypothyroidism -Avoid hypoglycemia -SSI -Accu-Cheks q. 6 -Long-acting insulin, titrate as needed -Resume home Synthroid GI/DVT Prophylaxis -PPI- pepcid -Heparin SubQ -SCDs to bilateral lower extremities while in bed The high probability of a clinically significant, sudden or life threatening deterioration of the [multi] system(s) required my full and direct attention, intervention and personal management. The aggregate critical care time was [60] minutes. This time is in addition to time spent performing reported procedures but includes the following: [x] Data Review and interpretation [x] Patient assessment and monitoring of vital signs [x] Documentation [x] Medication orders and management Disposition Plan: ICU Total Time Spent with Patient (Minutes): 60 History Interval history: Patient seen and examined at the bedside. Remains stable on the vent. VSS. DELMI overnight Hospitalist Physical - Physical exam Narrative exam: General appearance: Present: other (Trached, stable on the vent) - EENT Eyes: Present: PERRL - Respiratory Respiratory effort: normal Respiratory: bilateral: rhonchi - Cardiovascular Rhythm: regular Heart Sounds: Present: S1 & S2 - Extremities Extremities: no ischemia, pulses intact, pulses symmetrical Extremity abnormal: edema - Peripheral Assessment Generalized Edema Type: Non-pitting Edema Degree: 2+ Capillary Refill: < 3 seconds Skin Temperature: Warm Peripheral Pulses: within normal limits - Abdominal General gastrointestinal: soft, non-distended, normal bowel sounds - Integumentary Integumentary: Present: warm, dry - Psychiatric Psychiatric: other (Trached, unresponsive on the vent, not on any sedations) - Neurologic Neurologic: other (Trached, unresponsive, not on any sedations. Open eyes spontaneously, does not track, not following commands, with nonpurposeful movements) - Allied Health Allied health notes reviewed: nursing, case management - Constitutional Vitals: Temp Pulse Resp BP Pulse Ox 99.1 F 104 H 10 L 152/80 100 08/05/22 07:26 08/05/22 09:00 08/05/22 09:00 08/05/22 09:00 08/05/22 09:00 HEART Score - HEART Score Troponin: Troponin T 0.010 ng/mL (0.00-0.029) 08/28/22 04:17 Results - Labs CBC & Chem 7: 08/05/22 04:00 08/05/22 04:00 Labs: Laboratory Last Values WBC 5.8 K/mm3 (4.5-11.0) 08/05/22 04:00 RBC 2.76 M/mm3 (3.65-5.03) L 08/05/22 04:00 Hgb 9.2 gm/dl (10.1-14.3) L 08/05/22 04:00 Hct 28.1 % (30.3-42.9) L 08/05/22 04:00 MCV 102 fl (79-97) H 08/05/22 04:00 MCH 33 pg (28-32) H 08/05/22 04:00 MCHC 33 % (30-34) 08/05/22 04:00 RDW 18.7 % (13.2-15.2) H 08/05/22 04:00 Plt Count 416 K/mm3 (140-440) 08/05/22 04:00 Lymph % (Auto) 33.3 % (13.4-35.0) 07/22/22 04:13 Hamilton % (Auto) 10.0 % (0.0-7.3) H 07/22/22 04:13 Eos % (Auto) 0.5 % (0.0-4.3) 07/22/22 04:13 Baso % (Auto) 0.1 % (0.0-1.8) 07/22/22 04:13 Lymph # (Auto) 2.1 K/mm3 (1.2-5.4) 07/22/22 04:13 Hamilton # (Auto) 0.6 K/mm3 (0.0-0.8) 07/22/22 04:13 Eos # (Auto) 0.0 K/mm3 (0.0-0.4) 07/22/22 04:13 Baso # (Auto) 0.0 K/mm3 (0.0-0.1) 07/22/22 04:13 Seg Neutrophils % 56.1 % (40.0-70.0) 07/22/22 04:13 Seg Neutrophils # 3.6 K/mm3 (1.8-7.7) 07/22/22 04:13 PT 13.0 Sec. (12.2-14.9) 07/30/22 14:15 INR 0.89 (0.87-1.13) 07/30/22 14:15 APTT 32.6 Sec. (24.2-36.6) 07/30/22 14:15 D-Dimer 925.80 ng/mlDDU (0-234) H 07/12/22 04:00 ABG pH 7.503 pH Units (7.350-7.450) H 07/20/22 05:30 ABG pCO2 42.7 mm Hg 07/20/22 05:30 ABG pO2 99.1 mm Hg (80.0-90.0) H 07/20/22 05:30 ABG HCO3 32.8 mmol/L (20.0-26.0) H 07/20/22 05:30 ABG O2 Saturation 97.8 % (95.0-99.0) 07/20/22 05:30 ABG O2 Content 13.3 (0.0-44) 07/20/22 05:30 ABG Base Excess 8.8 mmol/L (-2.0-3.0) H 07/20/22 05:30 ABG Hemoglobin 9.7 gm/dl (12.0-16.0) L 07/20/22 05:30 ABG Carboxyhemoglobin 1.3 % (0.0-5.0) 07/20/22 05:30 ABG Methemoglobin 0.6 % (0.0-1.5) 07/20/22 05:30 Oxyhemoglobin 95.9 % (95.0-99.0) 07/20/22 05:30 FiO2 28 % 07/20/22 05:30 Sodium 141 mmol/L (137-145) 08/05/22 04:00 Potassium 4.2 mmol/L (3.6-5.0) 08/05/22 04:00 Chloride 102.1 mmol/L (98-107) 08/05/22 04:00 Carbon Dioxide 30 mmol/L (22-30) 08/05/22 04:00 Anion Gap 13 mmol/L 08/05/22 04:00 BUN 17 mg/dL (7-17) 08/05/22 04:00 Creatinine 0.3 mg/dL (0.6-1.2) L 08/05/22 04:00 Estimated GFR > 60 ml/min 08/05/22 04:00 BUN/Creatinine Ratio 57 % 08/05/22 04:00 Glucose 112 mg/dL (65-100) H 08/05/22 04:00 POC Glucose 122 mg/dL (70-105) H 08/04/22 23:35 Lactic Acid 2.10 mmol/L (0.7-2.0) H* 07/10/22 08:24 Uric Acid 13.5 mg/dL (3.5-7.6) H 07/07/22 04:17 Calcium 8.8 mg/dL (8.4-10.2) 08/05/22 04:00 Phosphorus 3.00 mg/dL (2.5-4.5) 07/29/22 04:05 Magnesium 1.70 mg/dL (1.7-2.3) 07/29/22 04:05 Ferritin 519.5 ng/mL (10.0-200.0) H 07/12/22 04:00 Total Bilirubin 0.30 mg/dL (0.1-1.2) 07/10/22 04:21 AST 89 units/L (5-40) H 07/10/22 04:21 ALT 53 units/L (7-56) 07/10/22 04:21 Alkaline Phosphatase 83 units/L (35-129) 07/10/22 04:21 Ammonia 32.0 umol/L (25-60) 07/07/22 04:17 Lactate Dehydrogenase 444 units/L (91-180) H 07/12/22 04:00 Total Creatine Kinase 84 units/L (30-135) 08/04/22 04:00 Troponin T 0.010 ng/mL (0.00-0.029) 07/07/22 04:17 C-Reactive Protein 0.30 mg/dL (0.00-1.30) 07/12/22 04:00 Total Protein 4.9 g/dL (6.3-8.2) L 07/10/22 04:21 Albumin 2.5 g/dL (3.9-5) L 07/10/22 04:21 Albumin/Globulin Ratio 1.0 % 07/10/22 04:21 Procalcitonin 0.19 ng/mL (<0.15) 07/08/22 14:54 TSH 9.750 mlU/mL (0.270-4.200) H 07/18/22 12:31 Free T4 0.78 ng/dL (0.76-1.46) 07/18/22 12:31 Thyroxine (T4) 6.2 ug/dL (4.0-12.0) 07/18/22 12:31 Free T3 Index 1.7 pg/mL (2.3-4.2) L 07/18/22 12:31 Total Cortisol 47.9 mcg/dL () 07/07/22 07:43 Urine Color Yellow (Yellow) 07/07/22 03:17 Urine Turbidity Slightly cloudy (Clear) 07/07/22 03:17 Specific Bagley (Man) 1.015 (1.003-1.030) 07/07/22 03:17 Ur Protein (Man) 1+ mg/dL (Negative) 07/07/22 03:17 Ur Ketones (Man) Negative (Negative) 07/07/22 03:17 Ur Nitrite (Man) Negative (Negative) 07/07/22 03:17 Urine Bilirubin (Man) Negative (Negative) 07/07/22 03:17 Leukocyte Esterase (Man) Negative (Negative) 07/07/22 03:17 Urine WBC (Auto) 7.0 /HPF (0.0-6.0) H 07/07/22 03:17 Urine RBC (Auto) 1.0 /HPF (0.0-6.0) 07/07/22 03:17 U Epithel Cells (Auto) 4.0 /HPF (0-13.0) 07/07/22 03:17 Urine Bacteria (Auto) 3+ /HPF (Negative) 07/07/22 03:17 Urine RBC (Manual) 3+ (Negative) 07/07/22 03:17 Urine Mucus 3+ /HPF 07/07/22 03:17 Urine Osmolality 744 Mosm/kg 07/07/22 16:45 Urine Creatinine 92.9 mg/dL (0.1-20.0) H 07/07/22 16:45 Urine Sodium 109 mmol/L 07/07/22 16:45 Salicylates < 0.3 mg/dL (2.8-20.0) L 07/07/22 03:38 Urine Opiates Screen Presumptive negative 07/07/22 03:17 Urine Methadone Screen Presumptive negative 07/07/22 03:17 Acetaminophen 5.0 ug/mL (10.0-30.0) L 07/07/22 03:38 Ur Barbiturates Screen Presumptive negative 07/07/22 03:17 Valproic Acid 7.0 ug/mL (50-100) L 07/07/22 03:38 Ur Phencyclidine Scrn Presumptive negative 07/07/22 03:17 Ur Amphetamines Screen Presumptive negative 07/07/22 03:17 U Benzodiazepines Scrn Presumptive negative 07/07/22 03:17 Urine Cocaine Screen Presumptive negative 07/07/22 03:17 U Marijuana (THC) Screen Presumptive negative 07/07/22 03:17 Drugs of Abuse Note Disclamer 07/07/22 03:17 Plasma/Serum Alcohol < 0.01 % (0-0.07) 07/07/22 03:38 SARS-CoV-2 (PCR) Positive (Negative) A 07/07/22 15:00 Corbin/IV: Voiding Method External Female Catheter Active Medications - Current Medications Current Medications: Generic Name Dose Route Start Last Admin Trade Name Freq PRN Reason Stop Dose Admin Acetaminophen 650 mg 07/13/22 12:00 07/25/22 21:28 Acetaminophen 325 Mg/10.15 Ml Oral Liqd Unit Dose FEEDTUBE 650 mg Q6H PRN Administration Pain MILD(1-3)/Fever >100.5/LEE Apixaban 5 mg 07/30/22 22:00 08/05/22 09:25 Apixaban 5 Mg Tab FEEDTUBE 5 mg Q12HR ERROL Administration Protocol Atorvastatin Calcium 80 mg 07/10/22 22:00 08/04/22 22:21 Atorvastatin 40 Mg Tab FEEDTUBE 80 mg QHS ERROL Administration Cholecalciferol 1,000 unit 07/10/22 10:00 08/05/22 09:26 Cholecalciferol (Vit D3) 1000 Unit (25 Mcg) Tab FEEDTUBE 1,000 unit QDAY ERROL Administration Dextrose 50 ml 07/09/22 11:42 Dextrose 50% In Water (25gm) 50 Ml Syringe IV Q30MIN PRN Hypoglycemia Protocol Famotidine 20 mg 07/09/22 22:00 08/05/22 09:26 Famotidine 20 Mg Tab FEEDTUBE 20 mg BID ERROL Administration Hydrophilic Ointment 1 applic 07/07/22 02:48 Lip Therapy Vaseline TP Q2HR PRN Dry Lips Insulin Human Lispro 0 unit 07/09/22 12:00 08/05/22 08:34 Insulin Lispro 100 Unit/Ml SUB-Q Not Given Q6HR ERROL Protocol Levothyroxine Sodium 75 mcg 07/11/22 06:00 08/05/22 06:26 Levothyroxine 75 Mcg Tab FEEDTUBE 75 mcg QAM@0600 ERROL Administration Multi-Ingred Cream/Lotion/Oil/Oint 1 applic 07/07/22 02:48 Mineral Oil/Petrolatum, White Ophth Oint 3.5 Gm OU Q4HR PRN Dry Eye(s) Senna/Docusate Sodium 1 tab 07/07/22 10:00 08/05/22 09:26 Sennosides/Docusate Sodium 8.6/50 Mg Tab FEEDTUBE 1 tab BID ERROL Administration Sodium Chloride 10 ml 07/07/22 13:00 08/05/22 09:26 Sodium Chloride 0.9% 10 Ml Flush Syringe IV 10 ml BID ERROL Administration Sodium Chloride 10 ml 07/07/22 12:09 Sodium Chloride 0.9% 10 Ml Flush Syringe IV PRN PRN LINE FLUSH Valproic Acid 250 mg 07/10/22 22:00 08/05/22 09:29 Valproic Acid 250 Mg/5 Ml Oral Liqd FEEDTUBE 250 mg Q12H ERROL Administration Nutrition/Malnutrition Assess - Dietary Evaluation Nutrition/Malnutrition Findings: Nutrition Notes Start: 07/07/22 13:24 Freq: Status: Active Protocol: Document 07/24/22 09:24 DAREN (Rec: 07/24/22 09:53 DAREN [id number]) Nutrition Notes Initial or Follow up Reassessment Current Diagnosis Respiratory Failure,Stroke, Hyperlipidemia Other Pertinent Diagnosis COVID-19, Metabolic Encephalopathy, Pulmonary Embolism, Dementia. Current Diet TF-Vital AF 1.2 Jameson @ 50 ml/hr (from D 07/12). Labs/Tests 07/24: CO2 33, Crea 0.4, Ca 8. 3. Pertinent Medications 07/24: Vit D3, D5w @ 50ml/hr, Levothyroxine, others nutritionally unremarkable. Height 5 ft 6 in Weight 96.2 kg [place] Body Weight (kg) 59.09 BMI 34.2 Weight change and time frame 0.946 Kg body weight gain in 1 week reported. Weight Status Obese Subjective/Other Information RD consult for routine F/U on TF tolerance/continuation assessment. TF continues as prescribed, and well tolerated, according to RN notes. Pt continues on Mechanical Ventilation, O2 saturation @ 98%, according to Physical Assessment History notes. Procedure on 07/22: Percutaneous Tracheostomy and EGD w/PEG-tube placement, well tolerated. according to Operative Report notes. TF resumed on 07/23, after PEG -tube placement, according to Progress notes. Possible discharge to LTAC facility, according to Progress notes. Percent of energy/protein needs met: Prescribed TF-Vital AF 1.2 Jameson @ 50 ml/hr provides for energy/protein needs (1,440 Kcal/90 g) during LOS, 101% Kcal, 91% AA. Burn Absent Trauma Absent GI Symptoms Other Difficulty In Swallowing,Chewing Food Allergy No Skin Integrity/Comment Assessment WNL. Current % PO Other Minimum of two criteria Yes Energy Intake (non-severe) <75% Estimated Energy Requirement >7 days Interpretation of Weight Loss (non- 5% in 1 month severe) Fluid Accumulation N/A Protein-Calorie Malnutrition Non-Severe #2 Nutrition Diagnosis Malnutrition Comments: TF continues as prescribed, and well tolerated, according to RN notes. Diagnosis Progress(for reassessment Improved documentation) #1 Nutrition Diagnosis Inadequate oral intake Comments: Procedure on 07/22: Percutaneous Tracheostomy and EGD w/PEG-tube placement, well tolerated. according to Operative Report notes. TF resumed on 07/23, after PEG -tube placement, according to Progress notes. Diagnosis Progress(for reassessment Continues documentation) Is patient on ventilator? Yes Is Patient Ambulatory and/or Out of Bed No REE-([facility]-confined to bed) [phone] Kcal/Kg value to use for calculation 15 Approximate Energy Requirements Using 1443 kcal/Kg Calculation Used for Recommendations Kcal/kg Additional Notes Protein: 1.3 g/Kg AdjBW; 101 g /day. Fluids: 1 ml/Kcal, or as per MD. Nutrition Intervention Nutrition Support: Continue TF-Vital AF 1.2 Jameson @ 50 ml/hr. Flush: 75 ml water Q 4 hr, or as per MD. Kcal 1,440 Protein (gm) 90 Carbohydrates (gm) 133 Fat (gm) 65 Fluid (mL) 973 Fiber (gm) 6 % RDI: 101% Kcal; 91% AA. Goal #1 Provide at least 75% of energy /protein needs through Enteral Feeding during LOS. Follow-Up By: 08/07/22 Additional Comments Continue monitoring TF tolerance, ventilation status, and BM.
--- NOTE | 2022-08-05 12:15 | Progress Note ---
Assessment and Plan 76 y/o female with acute respiratory failure secondary to altered mental status, most likely from electrolyte abnormalities seen on chemistry, found to be COVID positive. 08/05/22: Continue daily PSV trials. Supportive care. Tolerating Feeds. Hopeful insurer will approve placement for further weaning. 08/04/22: Supportive Measures. Daily PSV trials 08/03/22: Continue supportive measures and daily PSV trials. 08/02/22: Daily PSV Trials 08/01/22: No new pulmonary recs today. I did speak with 2 daughters via the phone on either Friday or Friday to discuss the lack of change in mental state. Per the daughters, /father is telling them he is seeing things that even the daughter who lives here has not seen. They are preparing to speak with their father about her mental state. Continue supportive measures. 07/31/22: Daily PSV trials. PT/OT if possible. Continue tube feeds. 07/30/22: Continue daily PSV trials. 07/29/22: Daily PSV trials. Hold laxatives and stimulants for now. No changes were made in any other meds. Monitor white count and abdominal exam. 07/26/22: Daily PSV trials. Continue tube feeds. Awaiting placement. 07/25/22: Daily PSV trials. Tube feeds going and tolerating. Need to consider at least PT consult to help with movement of lower ext. 07/24/22: Continue tube feeds. Continue daily PSV trials. Await placement, weanable but will need time. 07/23/22: Tube feeds back on. No PSV trials today but will do again tomorrow. Awaiting placement. 07/22/22: Trach and Peg hopefully today. 07/21/22: Did 6 hours of PSV yesterday. Trach and peg tomorrow. Check labs to make sure lytes are stable. 07/20/22: Trach/Peg Friday. Supportive care. 07/19/22: Appreciate Surgery. on Schedule for next week. Free T4 was normal. No current indication for stress dose steroids. Continue supportive care. 07/18/22: Family meeting: Discussed current mental state. Discussed negative work up so far to explain why mental state hasnt improved. Per family here, patient was better than what she is not but I had difficult time placing a time frame as to when that was, maybe May. It does appear that she has had a steady decline mentally and even stopped eating. There were talks prior to her admission here about Peg tube placement. Discussed the idea of trach and peg placement. Also explained to family that trach does not fix any underlying reason as to why the patient's mental state is the way it is. The family wasn't aware that she was brought in for altered mental status, they were told she had bradycardia. Nonetheless, the family as a whole wish to pursue trach and peg placement. Consulted Surgery and hopeful they will see soon. Continue supportive measures and continue daily PSV trials. TSH on admit was 13, will repeat but if T4 is normal, nothing to do. She also is not behaving like myxedema coma. Guarded prognosis. 07/17/22: steroids end today. Continue daily PSV trials. Will speak with family about next steps as today is day 10 of intubation and it does not appear that conventional extubation is in the near future. 07/16/22: Continue daily PSV trials. Will speak with family tomorrow as patient is not improving enough for conventional extubation, especially with frequent apnic events. Most likely patient will need trach and peg. 07/15/22: mental status is still unchanged. Eyes open but not tracking or following commands. Also going apnic on PSV trials. Most likely will need trach and peg given mental status has not improved. 07/12/22: Negative MRI for acute infarct. Na is normal. Continue to monitor. Daily PSV trials. Has been intubated now for 5 days. 07/11/22: for MRI today. Appreciate renal help, agree with signing off. Attempt daily PSV. Guarded prognosis. 07/10: follow up MRI. Get official EEG read but no status. Continue daily PSV trials. Guarded prognosis 07/09/22: Continue supportive measures. Continue to fix Na, if no improvement in mental state with normal sodium then will pursue MRI. Picc placed today. 07/08/22: No further sedation. 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 Consider neurology consult and may need to obtain MRI. Attempt PSV trials today. needs Picc line placed for long term care phlebotomist access as patient is a difficult stick. Feed patient and monitor lytes. 1. Discontinue sedation 2. Wean FiO2 for sats >88% and PaO2 greater than 60 3. Agree with fluid resuscitation, patient needs free water 4. Will follow up with family to find out exactly what patient mental status was a facility CCT 31 minutes. Subjective Date of service: 08/05/22 Principal diagnosis: Hypernatremia Interval history: Tolerated PSV all day yesterday and placed back on a rate last night. Now back on PSV again. No acute issues. Objective Vital Signs - 12hr 08/05/22 08/05/22 08/05/22 01:00 02:00 03:00 Temperature Pulse Rate 94 H 97 H 105 H Pulse Rate [ From Monitor] Respiratory 10 L 10 L 20 Rate Blood Pressure 124/76 137/77 147/77 O2 Sat by Pulse 99 100 100 Oximetry O2 Sat by Pulse Oximetry [ Assessment] 08/05/22 08/05/22 08/05/22 03:36 04:00 04:20 Temperature 98.9 F Pulse Rate 98 H 102 H Pulse Rate [ 97 H From Monitor] Respiratory 11 L 5 L Rate Blood Pressure 136/77 134/88 O2 Sat by Pulse 100 100 Oximetry O2 Sat by Pulse Oximetry [ Assessment] 08/05/22 08/05/22 08/05/22 05:00 06:00 07:00 Temperature Pulse Rate 98 H 91 H 88 Pulse Rate [ From Monitor] Respiratory 15 11 L 10 L Rate Blood Pressure 142/78 134/73 138/76 O2 Sat by Pulse 100 100 100 Oximetry O2 Sat by Pulse Oximetry [ Assessment] 08/05/22 08/05/22 08/05/22 07:26 08:00 08:35 Temperature 99.1 F Pulse Rate 81 87 Pulse Rate [ From Monitor] Respiratory 10 L Rate Blood Pressure 129/73 129/73 O2 Sat by Pulse 100 100 Oximetry O2 Sat by Pulse Oximetry [ Assessment] 08/05/22 08/05/22 08/05/22 08:52 08:55 09:00 Temperature Pulse Rate 95 H 104 H Pulse Rate [ From Monitor] Respiratory 17 10 L Rate Blood Pressure 150/80 152/80 O2 Sat by Pulse 100 100 Oximetry O2 Sat by Pulse 100 Oximetry [ Assessment] 08/05/22 08/05/22 08/05/22 10:00 11:00 11:29 Temperature 98.4 F Pulse Rate 105 H 104 H Pulse Rate [ From Monitor] Respiratory 11 L 15 Rate Blood Pressure 133/69 127/77 O2 Sat by Pulse 99 100 Oximetry O2 Sat by Pulse Oximetry [ Assessment] Constitutional: comatose ENT: other (orally intubated) Neck: supple Effort: normal Ascultation: Bilateral: clear Percussion: Bilateral: not dull Cardiovascular: regular rate and rhythm Gastrointestinal: normoactive bowel sounds, soft Extremities: no cyanosis, no edema Neurologic: unable to assess CBC and BMP: 08/05/22 04:00 08/05/22 04:00 ABG, PT/INR, D-dimer: ABG ABG pH 7.503 pH Units (7.350-7.450) H 07/20/22 05:30 ABG pCO2 42.7 mm Hg 07/20/22 05:30 ABG pO2 99.1 mm Hg (80.0-90.0) H 07/20/22 05:30 ABG O2 Saturation 97.8 % (95.0-99.0) 07/20/22 05:30 PT/INR, D-dimer PT 13.0 Sec. (12.2-14.9) 07/30/22 14:15 INR 0.89 (0.87-1.13) 07/30/22 14:15 D-Dimer 925.80 ng/mlDDU (0-234) H 07/12/22 04:00 Abnormal lab findings: Abnormal Labs 07/07/22 07/07/22 07/07/22 03:17 03:38 03:38 WBC RBC 5.43 H Hgb 18.2 H Hct 54.9 H MCV 101 H MCH 34 H RDW Plt Count 104 L [place] % (Auto) Seg Neutrophils % Seg Neutrophils # PT 15.0 H APTT 23.0 L D-Dimer ABG pH ABG pO2 ABG HCO3 ABG O2 Saturation ABG Base Excess ABG Hemoglobin Oxyhemoglobin Sodium Potassium Chloride Carbon Dioxide BUN Creatinine Glucose POC Glucose Lactic Acid Uric Acid Calcium Phosphorus Magnesium Ferritin Total Bilirubin AST Lactate Dehydrogenase Total Creatine Kinase C-Reactive Protein Total Protein Albumin TSH Free T3 Index Urine WBC (Auto) 7.0 H Urine Creatinine Salicylates Acetaminophen Valproic Acid SARS-CoV-2 (PCR) 07/07/22 07/07/22 07/07/22 03:38 03:38 03:38 WBC RBC Hgb Hct MCV MCH RDW Plt Count [place] % (Auto) Seg Neutrophils % Seg Neutrophils # PT APTT D-Dimer ABG pH ABG pO2 ABG HCO3 ABG O2 Saturation ABG Base Excess ABG Hemoglobin Oxyhemoglobin Sodium Potassium Chloride Carbon Dioxide BUN Creatinine Glucose POC Glucose Lactic Acid Uric Acid Calcium Phosphorus Magnesium 3.30 H Ferritin Total Bilirubin AST Lactate Dehydrogenase Total Creatine Kinase 1826 H C-Reactive Protein Total Protein Albumin TSH Free T3 Index Urine WBC (Auto) Urine Creatinine Salicylates < 0.3 L Acetaminophen 5.0 L Valproic Acid 7.0 L SARS-CoV-2 (PCR) 07/07/22 07/07/22 07/07/22 04:17 04:17 04:17 WBC RBC Hgb Hct MCV MCH RDW Plt Count [place] % (Auto) Seg Neutrophils % Seg Neutrophils # PT APTT D-Dimer ABG pH ABG pO2 ABG HCO3 ABG O2 Saturation ABG Base Excess ABG Hemoglobin Oxyhemoglobin Sodium 168 H* Potassium 3.2 L Chloride 122.2 H Carbon Dioxide BUN 52 H Creatinine Glucose 158 H POC Glucose Lactic Acid 3.50 H* Uric Acid Calcium 10.9 H Phosphorus Magnesium Ferritin Total Bilirubin 1.40 H AST 47 H Lactate Dehydrogenase Total Creatine Kinase C-Reactive Protein Total Protein Albumin TSH 12.790 H Free T3 Index Urine WBC (Auto) Urine Creatinine Salicylates Acetaminophen Valproic Acid SARS-CoV-2 (PCR) 07/07/22 07/07/22 07/07/22 04:17 07:43 09:35 WBC RBC Hgb Hct MCV MCH RDW Plt Count [place] % (Auto) Seg Neutrophils % Seg Neutrophils # PT APTT D-Dimer ABG pH ABG pO2 377.3 H ABG HCO3 ABG O2 Saturation 99.6 H ABG Base Excess -2.5 L ABG Hemoglobin Oxyhemoglobin Sodium Potassium Chloride Carbon Dioxide BUN Creatinine Glucose POC Glucose Lactic Acid 6.30 H* Uric Acid 13.5 H Calcium Phosphorus Magnesium Ferritin Total Bilirubin AST Lactate Dehydrogenase Total Creatine Kinase C-Reactive Protein Total Protein Albumin TSH Free T3 Index Urine WBC (Auto) Urine Creatinine Salicylates Acetaminophen Valproic Acid SARS-CoV-2 (PCR) 07/07/22 07/07/22 07/07/22 15:00 16:00 16:00 WBC RBC Hgb Hct MCV MCH RDW Plt Count [place] % (Auto) Seg Neutrophils % Seg Neutrophils # PT APTT D-Dimer ABG pH ABG pO2 ABG HCO3 ABG O2 Saturation ABG Base Excess ABG Hemoglobin Oxyhemoglobin Sodium 166 H* Potassium Chloride 124.8 H Carbon Dioxide 20 L BUN 41 H Creatinine Glucose 157 H POC Glucose Lactic Acid 7.00 H* Uric Acid Calcium Phosphorus Magnesium Ferritin Total Bilirubin AST 81 H Lactate Dehydrogenase Total Creatine Kinase C-Reactive Protein Total Protein Albumin TSH Free T3 Index Urine WBC (Auto) Urine Creatinine Salicylates Acetaminophen Valproic Acid SARS-CoV-2 (PCR) Positive A 07/07/22 07/07/22 07/07/22 16:45 23:42 23:42 WBC RBC Hgb Hct MCV MCH RDW Plt Count [place] % (Auto) Seg Neutrophils % Seg Neutrophils # PT APTT D-Dimer ABG pH ABG pO2 ABG HCO3 ABG O2 Saturation ABG Base Excess ABG Hemoglobin Oxyhemoglobin Sodium 165 H* Potassium 3.0 L Chloride 122.8 H Carbon Dioxide BUN 38 H Creatinine Glucose 232 H POC Glucose Lactic Acid 5.60 H* Uric Acid Calcium Phosphorus Magnesium Ferritin Total Bilirubin AST Lactate Dehydrogenase Total Creatine Kinase C-Reactive Protein Total Protein Albumin TSH Free T3 Index Urine WBC (Auto) Urine Creatinine 92.9 H Salicylates Acetaminophen Valproic Acid SARS-CoV-2 (PCR) 07/07/22 07/07/22 07/08/22 Unknown Unknown 05:30 WBC RBC Hgb Hct MCV MCH RDW Plt Count [place] % (Auto) Seg Neutrophils % Seg Neutrophils # PT APTT D-Dimer ABG pH 7.553 H 7.473 H ABG pO2 61.7 L 121.7 H ABG HCO3 ABG O2 Saturation 94.7 L ABG Base Excess 4.3 H ABG Hemoglobin 18.0 H Oxyhemoglobin 93.1 L Sodium 163 H* Potassium 6.3 H* D Chloride 123.7 H Carbon Dioxide BUN 42 H Creatinine Glucose 169 H POC Glucose Lactic Acid Uric Acid Calcium Phosphorus Magnesium Ferritin Total Bilirubin AST Lactate Dehydrogenase Total Creatine Kinase C-Reactive Protein Total Protein Albumin TSH Free T3 Index Urine WBC (Auto) Urine Creatinine Salicylates Acetaminophen Valproic Acid SARS-CoV-2 (PCR) 07/08/22 07/08/22 07/08/22 05:36 11:21 14:54 WBC 11.1 H RBC Hgb Hct MCV 101 H MCH 33 H RDW Plt Count 69 L [place] % (Auto) Seg Neutrophils % 82.0 H Seg Neutrophils # 9.1 H PT APTT D-Dimer ABG pH ABG pO2 ABG HCO3 ABG O2 Saturation ABG Base Excess ABG Hemoglobin Oxyhemoglobin Sodium Potassium Chloride Carbon Dioxide BUN Creatinine Glucose POC Glucose 174 H 148 H Lactic Acid Uric Acid Calcium Phosphorus Magnesium Ferritin Total Bilirubin AST Lactate Dehydrogenase Total Creatine Kinase C-Reactive Protein Total Protein Albumin TSH Free T3 Index Urine WBC (Auto) Urine Creatinine Salicylates Acetaminophen Valproic Acid SARS-CoV-2 (PCR) 07/08/22 07/08/22 07/08/22 14:54 14:54 14:54 WBC RBC Hgb Hct MCV MCH RDW Plt Count [place] % (Auto) Seg Neutrophils % Seg Neutrophils # PT APTT D-Dimer ABG pH ABG pO2 ABG HCO3 ABG O2 Saturation ABG Base Excess ABG Hemoglobin Oxyhemoglobin Sodium 163 H* Potassium 2.9 L* Chloride 123.7 H Carbon Dioxide BUN 30 H Creatinine Glucose 161 H POC Glucose Lactic Acid 6.10 H* Uric Acid Calcium Phosphorus Magnesium Ferritin Total Bilirubin AST 69 H Lactate Dehydrogenase Total Creatine Kinase 2335 H C-Reactive Protein Total Protein 5.6 L D Albumin 3.1 L TSH Free T3 Index Urine WBC (Auto) Urine Creatinine Salicylates Acetaminophen Valproic Acid SARS-CoV-2 (PCR) 07/08/22 07/08/22 07/08/22 14:54 14:54 14:54 WBC RBC Hgb Hct MCV MCH RDW Plt Count [place] % (Auto) Seg Neutrophils % Seg Neutrophils # PT APTT D-Dimer 499.72 H ABG pH ABG pO2 ABG HCO3 ABG O2 Saturation ABG Base Excess ABG Hemoglobin Oxyhemoglobin Sodium Potassium Chloride Carbon Dioxide BUN Creatinine Glucose POC Glucose Lactic Acid Uric Acid Calcium Phosphorus Magnesium Ferritin 722.1 H Total Bilirubin AST Lactate Dehydrogenase 455 H Total Creatine Kinase C-Reactive Protein 1.60 H Total Protein Albumin TSH Free T3 Index Urine WBC (Auto) Urine Creatinine Salicylates Acetaminophen Valproic Acid SARS-CoV-2 (PCR) 07/08/22 07/08/22 07/09/22 19:13 19:53 00:09 WBC RBC Hgb Hct MCV MCH RDW Plt Count [place] % (Auto) Seg Neutrophils % Seg Neutrophils # PT APTT D-Dimer ABG pH ABG pO2 ABG HCO3 ABG O2 Saturation ABG Base Excess ABG Hemoglobin Oxyhemoglobin Sodium 160 H Potassium 3.5 L D Chloride 122.0 H Carbon Dioxide 20 L BUN 28 H Creatinine Glucose 151 H POC Glucose 138 H Lactic Acid 5.70 H* Uric Acid Calcium Phosphorus Magnesium Ferritin Total Bilirubin AST Lactate Dehydrogenase Total Creatine Kinase C-Reactive Protein Total Protein Albumin TSH Free T3 Index Urine WBC (Auto) Urine Creatinine Salicylates Acetaminophen Valproic Acid SARS-CoV-2 (PCR) 07/09/22 07/09/22 07/09/22 00:45 03:21 03:21 WBC RBC Hgb Hct MCV MCH RDW Plt Count [place] % (Auto) Seg Neutrophils % Seg Neutrophils # PT APTT D-Dimer ABG pH ABG pO2 ABG HCO3 ABG O2 Saturation ABG Base Excess ABG Hemoglobin Oxyhemoglobin Sodium 158 H 157 H Potassium Chloride 124.2 H 125.0 H Carbon Dioxide 20 L 20 L BUN 25 H 24 H Creatinine Glucose 147 H 169 H POC Glucose Lactic Acid 4.70 H* Uric Acid Calcium Phosphorus Magnesium Ferritin Total Bilirubin AST 81 H Lactate Dehydrogenase Total Creatine Kinase C-Reactive Protein Total Protein 5.7 L Albumin 2.8 L TSH Free T3 Index Urine WBC (Auto) Urine Creatinine Salicylates Acetaminophen Valproic Acid SARS-CoV-2 (PCR) 07/09/22 07/09/22 07/09/22 04:40 05:35 08:14 WBC RBC Hgb Hct MCV 102 H MCH 33 H RDW Plt Count 74 L [place] % (Auto) Seg Neutrophils % Seg Neutrophils # PT APTT D-Dimer ABG pH ABG pO2 172.1 H ABG HCO3 ABG O2 Saturation 99.1 H ABG Base Excess -2.8 L ABG Hemoglobin Oxyhemoglobin Sodium Potassium Chloride Carbon Dioxide BUN Creatinine Glucose POC Glucose 108 H Lactic Acid Uric Acid Calcium Phosphorus Magnesium Ferritin Total Bilirubin AST Lactate Dehydrogenase Total Creatine Kinase C-Reactive Protein Total Protein Albumin TSH Free T3 Index Urine WBC (Auto) Urine Creatinine Salicylates Acetaminophen Valproic Acid SARS-CoV-2 (PCR) 07/09/22 07/09/22 07/09/22 11:16 11:27 16:20 WBC RBC Hgb Hct MCV MCH RDW Plt Count [place] % (Auto) Seg Neutrophils % Seg Neutrophils # PT APTT D-Dimer ABG pH ABG pO2 ABG HCO3 ABG O2 Saturation ABG Base Excess ABG Hemoglobin Oxyhemoglobin Sodium 155 H Potassium Chloride 121.3 H Carbon Dioxide BUN 21 H Creatinine Glucose 170 H POC Glucose 173 H 190 H Lactic Acid Uric Acid Calcium Phosphorus Magnesium Ferritin Total Bilirubin AST Lactate Dehydrogenase Total Creatine Kinase C-Reactive Protein Total Protein Albumin TSH Free T3 Index Urine WBC (Auto) Urine Creatinine Salicylates Acetaminophen Valproic Acid SARS-CoV-2 (PCR) 07/09/22 07/10/22 07/10/22 17:16 00:04 04:21 WBC RBC Hgb Hct MCV MCH RDW Plt Count [place] % (Auto) Seg Neutrophils % Seg Neutrophils # PT APTT D-Dimer ABG pH ABG pO2 ABG HCO3 ABG O2 Saturation ABG Base Excess ABG Hemoglobin Oxyhemoglobin Sodium 149 H 150 H Potassium Chloride 115.6 H 115.0 H Carbon Dioxide BUN 18 H Creatinine 0.5 L Glucose 207 H 178 H POC Glucose 180 H Lactic Acid Uric Acid Calcium 7.9 L Phosphorus Magnesium Ferritin Total Bilirubin AST 89 H Lactate Dehydrogenase 431 H Total Creatine Kinase C-Reactive Protein Total Protein 4.9 L Albumin 2.5 L TSH Free T3 Index Urine WBC (Auto) Urine Creatinine Salicylates Acetaminophen Valproic Acid SARS-CoV-2 (PCR) 07/10/22 07/10/22 07/10/22 04:21 04:21 04:21 WBC 11.8 H RBC 3.52 L Hgb Hct MCV 99 H MCH 33 H RDW Plt Count 67 L [place] % (Auto) Seg Neutrophils % Seg Neutrophils # PT APTT D-Dimer 585.71 H ABG pH ABG pO2 ABG HCO3 ABG O2 Saturation ABG Base Excess ABG Hemoglobin Oxyhemoglobin Sodium Potassium Chloride Carbon Dioxide BUN Creatinine Glucose POC Glucose Lactic Acid Uric Acid Calcium Phosphorus Magnesium Ferritin 631.3 H Total Bilirubin AST Lactate Dehydrogenase Total Creatine Kinase C-Reactive Protein Total Protein Albumin TSH Free T3 Index Urine WBC (Auto) Urine Creatinine Salicylates Acetaminophen Valproic Acid SARS-CoV-2 (PCR) 07/10/22 07/10/22 07/10/22 04:21 04:55 05:26 WBC RBC Hgb Hct MCV MCH RDW Plt Count [place] % (Auto) Seg Neutrophils % Seg Neutrophils # PT APTT D-Dimer ABG pH ABG pO2 76.8 L ABG HCO3 ABG O2 Saturation ABG Base Excess ABG Hemoglobin 10.4 L Oxyhemoglobin 94.5 L Sodium Potassium Chloride Carbon Dioxide BUN Creatinine Glucose POC Glucose 147 H Lactic Acid 2.50 H* Uric Acid Calcium Phosphorus Magnesium Ferritin Total Bilirubin AST Lactate Dehydrogenase Total Creatine Kinase C-Reactive Protein Total Protein Albumin TSH Free T3 Index Urine WBC (Auto) Urine Creatinine Salicylates Acetaminophen Valproic Acid SARS-CoV-2 (PCR) 07/10/22 07/10/22 07/10/22 08:24 11:31 12:53 WBC RBC Hgb Hct MCV MCH RDW Plt Count [place] % (Auto) Seg Neutrophils % Seg Neutrophils # PT APTT D-Dimer ABG pH ABG pO2 ABG HCO3 ABG O2 Saturation ABG Base Excess ABG Hemoglobin Oxyhemoglobin Sodium Potassium Chloride 110.9 H Carbon Dioxide BUN Creatinine 0.5 L Glucose 200 H POC Glucose 166 H Lactic Acid 2.10 H* Uric Acid Calcium 8.3 L Phosphorus Magnesium Ferritin Total Bilirubin AST Lactate Dehydrogenase Total Creatine Kinase C-Reactive Protein Total Protein Albumin TSH Free T3 Index Urine WBC (Auto) Urine Creatinine Salicylates Acetaminophen Valproic Acid SARS-CoV-2 (PCR) 07/10/22 07/10/22 07/10/22 17:37 18:53 23:30 WBC RBC Hgb Hct MCV MCH RDW Plt Count [place] % (Auto) Seg Neutrophils % Seg Neutrophils # PT APTT D-Dimer ABG pH ABG pO2 ABG HCO3 ABG O2 Saturation ABG Base Excess ABG Hemoglobin Oxyhemoglobin Sodium Potassium Chloride 109.5 H 110.2 H Carbon Dioxide BUN Creatinine 0.5 L 0.5 L Glucose 243 H 208 H POC Glucose 237 H Lactic Acid Uric Acid Calcium 8.1 L 8.1 L Phosphorus Magnesium Ferritin Total Bilirubin AST Lactate Dehydrogenase Total Creatine Kinase C-Reactive Protein Total Protein Albumin TSH Free T3 Index Urine WBC (Auto) Urine Creatinine Salicylates Acetaminophen Valproic Acid SARS-CoV-2 (PCR) 07/10/22 07/11/22 07/11/22 23:57 04:00 04:15 WBC 11.2 H RBC Hgb Hct MCV 99 H MCH RDW Plt Count 73 L [place] % (Auto) Seg Neutrophils % Seg Neutrophils # PT APTT D-Dimer ABG pH ABG pO2 107.4 H ABG HCO3 ABG O2 Saturation ABG Base Excess ABG Hemoglobin Oxyhemoglobin Sodium Potassium Chloride Carbon Dioxide BUN Creatinine Glucose POC Glucose 195 H Lactic Acid Uric Acid Calcium Phosphorus Magnesium Ferritin Total Bilirubin AST Lactate Dehydrogenase Total Creatine Kinase C-Reactive Protein Total Protein Albumin TSH Free T3 Index Urine WBC (Auto) Urine Creatinine Salicylates Acetaminophen Valproic Acid SARS-CoV-2 (PCR) 07/11/22 07/11/22 07/11/22 05:40 05:40 06:06 WBC RBC Hgb Hct MCV MCH RDW Plt Count [place] % (Auto) Seg Neutrophils % Seg Neutrophils # PT APTT D-Dimer ABG pH ABG pO2 ABG HCO3 ABG O2 Saturation ABG Base Excess ABG Hemoglobin Oxyhemoglobin Sodium Potassium Chloride 109.8 H Carbon Dioxide BUN Creatinine 0.5 L Glucose 160 H POC Glucose 145 H Lactic Acid Uric Acid Calcium 8.3 L Phosphorus Magnesium Ferritin Total Bilirubin AST Lactate Dehydrogenase Total Creatine Kinase 1745 H C-Reactive Protein Total Protein Albumin TSH Free T3 Index Urine WBC (Auto) Urine Creatinine Salicylates Acetaminophen Valproic Acid SARS-CoV-2 (PCR) 07/11/22 07/11/22 07/11/22 11:55 11:59 17:44 WBC RBC Hgb Hct MCV MCH RDW Plt Count [place] % (Auto) Seg Neutrophils % Seg Neutrophils # PT APTT D-Dimer ABG pH ABG pO2 ABG HCO3 ABG O2 Saturation ABG Base Excess ABG Hemoglobin Oxyhemoglobin Sodium Potassium Chloride 107.8 H Carbon Dioxide BUN Creatinine 0.5 L Glucose 150 H POC Glucose 150 H 182 H Lactic Acid Uric Acid Calcium 8.2 L Phosphorus Magnesium Ferritin Total Bilirubin AST Lactate Dehydrogenase Total Creatine Kinase C-Reactive Protein Total Protein Albumin TSH Free T3 Index Urine WBC (Auto) Urine Creatinine Salicylates Acetaminophen Valproic Acid SARS-CoV-2 (PCR) 07/11/22 07/12/22 07/12/22 17:50 00:10 00:12 WBC RBC Hgb Hct MCV MCH RDW Plt Count [place] % (Auto) Seg Neutrophils % Seg Neutrophils # PT APTT D-Dimer ABG pH ABG pO2 ABG HCO3 ABG O2 Saturation ABG Base Excess ABG Hemoglobin Oxyhemoglobin Sodium Potassium Chloride 108.4 H Carbon Dioxide BUN Creatinine 0.5 L 0.4 L Glucose 191 H 163 H POC Glucose 154 H Lactic Acid Uric Acid Calcium 8.2 L 7.9 L Phosphorus Magnesium Ferritin Total Bilirubin AST Lactate Dehydrogenase Total Creatine Kinase C-Reactive Protein Total Protein Albumin TSH Free T3 Index Urine WBC (Auto) Urine Creatinine Salicylates Acetaminophen Valproic Acid SARS-CoV-2 (PCR) 07/12/22 07/12/22 07/12/22 04:00 04:00 04:00 WBC RBC Hgb Hct MCV MCH RDW Plt Count [place] % (Auto) Seg Neutrophils % Seg Neutrophils # PT APTT D-Dimer 925.80 H ABG pH ABG pO2 ABG HCO3 ABG O2 Saturation ABG Base Excess ABG Hemoglobin Oxyhemoglobin Sodium Potassium Chloride Carbon Dioxide BUN Creatinine Glucose POC Glucose Lactic Acid Uric Acid Calcium Phosphorus Magnesium Ferritin 519.5 H Total Bilirubin AST Lactate Dehydrogenase 444 H Total Creatine Kinase C-Reactive Protein Total Protein Albumin TSH Free T3 Index Urine WBC (Auto) Urine Creatinine Salicylates Acetaminophen Valproic Acid SARS-CoV-2 (PCR) 07/12/22 07/12/22 07/12/22 04:00 05:00 05:03 WBC 11.7 H RBC 3.33 L Hgb Hct MCV 99 H MCH 33 H RDW Plt Count 68 L [place] % (Auto) Seg Neutrophils % Seg Neutrophils # PT APTT D-Dimer ABG pH 7.453 H ABG pO2 107.9 H ABG HCO3 27.9 H ABG O2 Saturation ABG Base Excess 3.7 H ABG Hemoglobin 10.9 L Oxyhemoglobin Sodium Potassium Chloride Carbon Dioxide BUN Creatinine Glucose POC Glucose 174 H Lactic Acid Uric Acid Calcium Phosphorus Magnesium Ferritin Total Bilirubin AST Lactate Dehydrogenase Total Creatine Kinase C-Reactive Protein Total Protein Albumin TSH Free T3 Index Urine WBC (Auto) Urine Creatinine Salicylates Acetaminophen Valproic Acid SARS-CoV-2 (PCR) 07/12/22 07/12/22 07/12/22 12:15 17:18 23:14 WBC RBC Hgb Hct MCV MCH RDW Plt Count [place] % (Auto) Seg Neutrophils % Seg Neutrophils # PT APTT D-Dimer ABG pH ABG pO2 ABG HCO3 ABG O2 Saturation ABG Base Excess ABG Hemoglobin Oxyhemoglobin Sodium Potassium Chloride Carbon Dioxide BUN Creatinine Glucose POC Glucose 154 H 154 H 167 H Lactic Acid Uric Acid Calcium Phosphorus Magnesium Ferritin Total Bilirubin AST Lactate Dehydrogenase Total Creatine Kinase C-Reactive Protein Total Protein Albumin TSH Free T3 Index Urine WBC (Auto) Urine Creatinine Salicylates Acetaminophen Valproic Acid SARS-CoV-2 (PCR) 07/13/22 07/13/22 07/13/22 04:00 04:10 05:14 WBC RBC 3.17 L Hgb Hct MCV 98 H MCH 34 H RDW Plt Count 75 L [place] % (Auto) Seg Neutrophils % Seg Neutrophils # PT APTT D-Dimer ABG pH ABG pO2 ABG HCO3 ABG O2 Saturation ABG Base Excess ABG Hemoglobin Oxyhemoglobin Sodium Potassium Chloride Carbon Dioxide BUN Creatinine 0.4 L Glucose 136 H POC Glucose 140 H Lactic Acid Uric Acid Calcium Phosphorus Magnesium Ferritin Total Bilirubin AST Lactate Dehydrogenase Total Creatine Kinase C-Reactive Protein Total Protein Albumin TSH Free T3 Index Urine WBC (Auto) Urine Creatinine Salicylates Acetaminophen Valproic Acid SARS-CoV-2 (PCR) 07/13/22 07/13/22 07/13/22 12:03 14:25 17:19 WBC RBC Hgb Hct MCV MCH RDW Plt Count [place] % (Auto) Seg Neutrophils % Seg Neutrophils # PT APTT D-Dimer ABG pH 7.478 H ABG pO2 118.1 H ABG HCO3 28.2 H ABG O2 Saturation ABG Base Excess 4.5 H ABG Hemoglobin Oxyhemoglobin Sodium Potassium Chloride Carbon Dioxide BUN Creatinine Glucose POC Glucose 193 H 189 H Lactic Acid Uric Acid Calcium Phosphorus Magnesium Ferritin Total Bilirubin AST Lactate Dehydrogenase Total Creatine Kinase C-Reactive Protein Total Protein Albumin TSH Free T3 Index Urine WBC (Auto) Urine Creatinine Salicylates Acetaminophen Valproic Acid SARS-CoV-2 (PCR) 07/13/22 07/13/22 07/14/22 23:52 Unknown 06:18 WBC RBC Hgb Hct MCV MCH RDW Plt Count [place] % (Auto) Seg Neutrophils % Seg Neutrophils # PT APTT D-Dimer ABG pH 7.465 H ABG pO2 128.8 H ABG HCO3 29.0 H ABG O2 Saturation ABG Base Excess 4.9 H ABG Hemoglobin 10.3 L Oxyhemoglobin Sodium Potassium Chloride Carbon Dioxide BUN Creatinine Glucose POC Glucose 174 H 167 H Lactic Acid Uric Acid Calcium Phosphorus Magnesium Ferritin Total Bilirubin AST Lactate Dehydrogenase Total Creatine Kinase C-Reactive Protein Total Protein Albumin TSH Free T3 Index Urine WBC (Auto) Urine Creatinine Salicylates Acetaminophen Valproic Acid SARS-CoV-2 (PCR) 07/14/22 07/14/22 07/15/22 11:34 17:20 00:25 WBC RBC Hgb Hct MCV MCH RDW Plt Count [place] % (Auto) Seg Neutrophils % Seg Neutrophils # PT APTT D-Dimer ABG pH ABG pO2 ABG HCO3 ABG O2 Saturation ABG Base Excess ABG Hemoglobin Oxyhemoglobin Sodium Potassium Chloride Carbon Dioxide BUN Creatinine Glucose POC Glucose 187 H 221 H 172 H Lactic Acid Uric Acid Calcium Phosphorus Magnesium Ferritin Total Bilirubin AST Lactate Dehydrogenase Total Creatine Kinase C-Reactive Protein Total Protein Albumin TSH Free T3 Index Urine WBC (Auto) Urine Creatinine Salicylates Acetaminophen Valproic Acid SARS-CoV-2 (PCR) 07/15/22 07/15/22 07/15/22 04:00 04:00 05:49 WBC 11.4 H RBC 3.13 L Hgb Hct MCV 98 H MCH 33 H RDW Plt Count 98 L [place] % (Auto) Seg Neutrophils % Seg Neutrophils # PT APTT D-Dimer ABG pH ABG pO2 ABG HCO3 ABG O2 Saturation ABG Base Excess ABG Hemoglobin Oxyhemoglobin Sodium Potassium Chloride Carbon Dioxide 34 H BUN Creatinine 0.4 L Glucose 126 H POC Glucose 143 H Lactic Acid Uric Acid Calcium Phosphorus Magnesium Ferritin Total Bilirubin AST Lactate Dehydrogenase Total Creatine Kinase C-Reactive Protein Total Protein Albumin TSH Free T3 Index Urine WBC (Auto) Urine Creatinine Salicylates Acetaminophen Valproic Acid SARS-CoV-2 (PCR) 07/15/22 07/15/22 07/16/22 11:19 16:16 00:19 WBC RBC Hgb Hct MCV MCH RDW Plt Count [place] % (Auto) Seg Neutrophils % Seg Neutrophils # PT APTT D-Dimer ABG pH ABG pO2 ABG HCO3 ABG O2 Saturation ABG Base Excess ABG Hemoglobin Oxyhemoglobin Sodium Potassium Chloride Carbon Dioxide BUN Creatinine Glucose POC Glucose 158 H 227 H 153 H Lactic Acid Uric Acid Calcium Phosphorus Magnesium Ferritin Total Bilirubin AST Lactate Dehydrogenase Total Creatine Kinase C-Reactive Protein Total Protein Albumin TSH Free T3 Index Urine WBC (Auto) Urine Creatinine Salicylates Acetaminophen Valproic Acid SARS-CoV-2 (PCR) 07/16/22 07/16/22 07/16/22 04:20 04:20 11:28 WBC RBC 3.16 L Hgb Hct MCV 99 H MCH 33 H RDW Plt Count 101 L [place] % (Auto) Seg Neutrophils % Seg Neutrophils # PT APTT D-Dimer ABG pH ABG pO2 ABG HCO3 ABG O2 Saturation ABG Base Excess ABG Hemoglobin Oxyhemoglobin Sodium Potassium Chloride Carbon Dioxide 36 H BUN 18 H Creatinine 0.4 L Glucose 139 H POC Glucose 158 H Lactic Acid Uric Acid Calcium Phosphorus Magnesium Ferritin Total Bilirubin AST Lactate Dehydrogenase Total Creatine Kinase C-Reactive Protein Total Protein Albumin TSH Free T3 Index Urine WBC (Auto) Urine Creatinine Salicylates Acetaminophen Valproic Acid SARS-CoV-2 (PCR) 07/16/22 07/17/22 07/17/22 16:30 00:07 05:46 WBC RBC Hgb Hct MCV MCH RDW Plt Count [place] % (Auto) Seg Neutrophils % Seg Neutrophils # PT APTT D-Dimer ABG pH ABG pO2 ABG HCO3 ABG O2 Saturation ABG Base Excess ABG Hemoglobin Oxyhemoglobin Sodium Potassium Chloride Carbon Dioxide BUN Creatinine Glucose POC Glucose 201 H 139 H 123 H Lactic Acid Uric Acid Calcium Phosphorus Magnesium Ferritin Total Bilirubin AST Lactate Dehydrogenase Total Creatine Kinase C-Reactive Protein Total Protein Albumin TSH Free T3 Index Urine WBC (Auto) Urine Creatinine Salicylates Acetaminophen Valproic Acid SARS-CoV-2 (PCR) 07/17/22 07/17/22 07/17/22 13:30 17:51 23:49 WBC RBC Hgb Hct MCV MCH RDW Plt Count [place] % (Auto) Seg Neutrophils % Seg Neutrophils # PT APTT D-Dimer ABG pH ABG pO2 ABG HCO3 ABG O2 Saturation ABG Base Excess ABG Hemoglobin Oxyhemoglobin Sodium Potassium Chloride Carbon Dioxide BUN Creatinine Glucose POC Glucose 185 H 219 H 133 H Lactic Acid Uric Acid Calcium Phosphorus Magnesium Ferritin Total Bilirubin AST Lactate Dehydrogenase Total Creatine Kinase C-Reactive Protein Total Protein Albumin TSH Free T3 Index Urine WBC (Auto) Urine Creatinine Salicylates Acetaminophen Valproic Acid SARS-CoV-2 (PCR) 07/18/22 07/18/22 07/18/22 04:00 04:00 04:00 WBC 12.2 H RBC 3.34 L Hgb Hct MCV 100 H MCH 33 H RDW Plt Count 113 L [place] % (Auto) Seg Neutrophils % 77.3 H Seg Neutrophils # 9.4 H PT APTT D-Dimer ABG pH 7.508 H ABG pO2 115.9 H ABG HCO3 33.4 H ABG O2 Saturation ABG Base Excess 9.4 H ABG Hemoglobin 11.7 L Oxyhemoglobin Sodium Potassium Chloride Carbon Dioxide 35 H BUN Creatinine 0.4 L Glucose 130 H POC Glucose Lactic Acid Uric Acid Calcium Phosphorus Magnesium Ferritin Total Bilirubin AST Lactate Dehydrogenase Total Creatine Kinase C-Reactive Protein Total Protein Albumin TSH Free T3 Index Urine WBC (Auto) Urine Creatinine Salicylates Acetaminophen Valproic Acid SARS-CoV-2 (PCR) 07/18/22 07/18/22 07/18/22 04:42 12:31 12:31 WBC RBC Hgb Hct MCV MCH RDW Plt Count [place] % (Auto) Seg Neutrophils % Seg Neutrophils # PT APTT D-Dimer ABG pH ABG pO2 ABG HCO3 ABG O2 Saturation ABG Base Excess ABG Hemoglobin Oxyhemoglobin Sodium Potassium Chloride Carbon Dioxide BUN Creatinine Glucose POC Glucose 134 H Lactic Acid Uric Acid Calcium Phosphorus Magnesium Ferritin Total Bilirubin AST Lactate Dehydrogenase Total Creatine Kinase C-Reactive Protein Total Protein Albumin TSH 9.750 H Free T3 Index 1.7 L Urine WBC (Auto) Urine Creatinine Salicylates Acetaminophen Valproic Acid SARS-CoV-2 (PCR) 07/18/22 07/18/22 07/19/22 12:33 17:39 00:43 WBC RBC Hgb Hct MCV MCH RDW Plt Count [place] % (Auto) Seg Neutrophils % Seg Neutrophils # PT APTT D-Dimer ABG pH ABG pO2 ABG HCO3 ABG O2 Saturation ABG Base Excess ABG Hemoglobin Oxyhemoglobin Sodium Potassium Chloride Carbon Dioxide BUN Creatinine Glucose POC Glucose 172 H 164 H 132 H Lactic Acid Uric Acid Calcium Phosphorus Magnesium Ferritin Total Bilirubin AST Lactate Dehydrogenase Total Creatine Kinase C-Reactive Protein Total Protein Albumin TSH Free T3 Index Urine WBC (Auto) Urine Creatinine Salicylates Acetaminophen Valproic Acid SARS-CoV-2 (PCR) 07/19/22 07/19/22 07/19/22 05:08 12:30 17:42 WBC RBC Hgb Hct MCV MCH RDW Plt Count [place] % (Auto) Seg Neutrophils % Seg Neutrophils # PT APTT D-Dimer ABG pH ABG pO2 ABG HCO3 ABG O2 Saturation ABG Base Excess ABG Hemoglobin Oxyhemoglobin Sodium Potassium Chloride Carbon Dioxide BUN Creatinine Glucose POC Glucose 143 H 159 H 139 H Lactic Acid Uric Acid Calcium Phosphorus Magnesium Ferritin Total Bilirubin AST Lactate Dehydrogenase Total Creatine Kinase C-Reactive Protein Total Protein Albumin TSH Free T3 Index Urine WBC (Auto) Urine Creatinine Salicylates Acetaminophen Valproic Acid SARS-CoV-2 (PCR) 07/19/22 07/20/22 07/20/22 23:26 05:30 06:03 WBC RBC Hgb Hct MCV MCH RDW Plt Count [place] % (Auto) Seg Neutrophils % Seg Neutrophils # PT APTT D-Dimer ABG pH 7.503 H ABG pO2 99.1 H ABG HCO3 32.8 H ABG O2 Saturation ABG Base Excess 8.8 H ABG Hemoglobin 9.7 L Oxyhemoglobin Sodium Potassium Chloride Carbon Dioxide BUN Creatinine Glucose POC Glucose 144 H 146 H Lactic Acid Uric Acid Calcium Phosphorus Magnesium Ferritin Total Bilirubin AST Lactate Dehydrogenase Total Creatine Kinase C-Reactive Protein Total Protein Albumin TSH Free T3 Index Urine WBC (Auto) Urine Creatinine Salicylates Acetaminophen Valproic Acid SARS-CoV-2 (PCR) 07/20/22 07/20/22 07/20/22 12:15 17:24 23:44 WBC RBC Hgb Hct MCV MCH RDW Plt Count [place] % (Auto) Seg Neutrophils % Seg Neutrophils # PT APTT D-Dimer ABG pH ABG pO2 ABG HCO3 ABG O2 Saturation ABG Base Excess ABG Hemoglobin Oxyhemoglobin Sodium Potassium Chloride Carbon Dioxide BUN Creatinine Glucose POC Glucose 138 H 135 H 131 H Lactic Acid Uric Acid Calcium Phosphorus Magnesium Ferritin Total Bilirubin AST Lactate Dehydrogenase Total Creatine Kinase C-Reactive Protein Total Protein Albumin TSH Free T3 Index Urine WBC (Auto) Urine Creatinine Salicylates Acetaminophen Valproic Acid SARS-CoV-2 (PCR) 07/21/22 07/21/22 07/21/22 04:00 04:00 05:13 WBC RBC 2.92 L Hgb 9.6 L Hct 29.0 L MCV 99 H MCH 33 H RDW 15.6 H Plt Count 136 L [place] % (Auto) Seg Neutrophils % Seg Neutrophils # PT APTT D-Dimer ABG pH ABG pO2 ABG HCO3 ABG O2 Saturation ABG Base Excess ABG Hemoglobin Oxyhemoglobin Sodium Potassium Chloride Carbon Dioxide 32 H BUN Creatinine 0.3 L Glucose 133 H POC Glucose 142 H Lactic Acid Uric Acid Calcium 8.3 L Phosphorus Magnesium Ferritin Total Bilirubin AST Lactate Dehydrogenase Total Creatine Kinase C-Reactive Protein Total Protein Albumin TSH Free T3 Index Urine WBC (Auto) Urine Creatinine Salicylates Acetaminophen Valproic Acid SARS-CoV-2 (PCR) 07/21/22 07/21/22 07/21/22 06:16 11:48 16:08 WBC RBC Hgb Hct MCV MCH RDW Plt Count [place] % (Auto) Seg Neutrophils % Seg Neutrophils # PT APTT D-Dimer ABG pH ABG pO2 ABG HCO3 ABG O2 Saturation ABG Base Excess ABG Hemoglobin Oxyhemoglobin Sodium Potassium Chloride Carbon Dioxide BUN Creatinine Glucose POC Glucose 149 H 124 H 139 H Lactic Acid Uric Acid Calcium Phosphorus Magnesium Ferritin Total Bilirubin AST Lactate Dehydrogenase Total Creatine Kinase C-Reactive Protein Total Protein Albumin TSH Free T3 Index Urine WBC (Auto) Urine Creatinine Salicylates Acetaminophen Valproic Acid SARS-CoV-2 (PCR) 07/22/22 07/22/22 07/22/22 00:05 04:00 04:13 WBC RBC 2.90 L Hgb 9.5 L Hct 28.9 L MCV 100 H MCH 33 H RDW 15.5 H Plt Count [place] % (Auto) 10.0 H Seg Neutrophils % Seg Neutrophils # PT APTT D-Dimer ABG pH ABG pO2 ABG HCO3 ABG O2 Saturation ABG Base Excess ABG Hemoglobin Oxyhemoglobin Sodium Potassium Chloride Carbon Dioxide 31 H BUN Creatinine 0.4 L Glucose 105 H POC Glucose 143 H Lactic Acid Uric Acid Calcium Phosphorus Magnesium Ferritin Total Bilirubin AST Lactate Dehydrogenase Total Creatine Kinase C-Reactive Protein Total Protein Albumin TSH Free T3 Index Urine WBC (Auto) Urine Creatinine Salicylates Acetaminophen Valproic Acid SARS-CoV-2 (PCR) 07/22/22 07/23/22 07/23/22 11:03 04:25 04:25 WBC RBC 2.71 L Hgb 9.1 L Hct 27.0 L MCV 100 H MCH 33 H RDW 15.4 H Plt Count [place] % (Auto) Seg Neutrophils % Seg Neutrophils # PT APTT D-Dimer ABG pH ABG pO2 ABG HCO3 ABG O2 Saturation ABG Base Excess ABG Hemoglobin Oxyhemoglobin Sodium Potassium Chloride Carbon Dioxide 33 H BUN Creatinine 0.4 L Glucose POC Glucose 111 H Lactic Acid Uric Acid Calcium 8.3 L Phosphorus Magnesium Ferritin Total Bilirubin AST Lactate Dehydrogenase Total Creatine Kinase C-Reactive Protein Total Protein Albumin TSH Free T3 Index Urine WBC (Auto) Urine Creatinine Salicylates Acetaminophen Valproic Acid SARS-CoV-2 (PCR) 07/23/22 07/23/22 07/23/22 06:14 11:09 23:34 WBC RBC Hgb Hct MCV MCH RDW Plt Count [place] % (Auto) Seg Neutrophils % Seg Neutrophils # PT APTT D-Dimer ABG pH ABG pO2 ABG HCO3 ABG O2 Saturation ABG Base Excess ABG Hemoglobin Oxyhemoglobin Sodium Potassium Chloride Carbon Dioxide BUN Creatinine Glucose POC Glucose 106 H 117 H 115 H Lactic Acid Uric Acid Calcium Phosphorus Magnesium Ferritin Total Bilirubin AST Lactate Dehydrogenase Total Creatine Kinase C-Reactive Protein Total Protein Albumin TSH Free T3 Index Urine WBC (Auto) Urine Creatinine Salicylates Acetaminophen Valproic Acid SARS-CoV-2 (PCR) 07/24/22 07/24/22 07/24/22 05:24 11:25 16:52 WBC RBC Hgb Hct MCV MCH RDW Plt Count [place] % (Auto) Seg Neutrophils % Seg Neutrophils # PT APTT D-Dimer ABG pH ABG pO2 ABG HCO3 ABG O2 Saturation ABG Base Excess ABG Hemoglobin Oxyhemoglobin Sodium Potassium Chloride Carbon Dioxide BUN Creatinine Glucose POC Glucose 122 H 139 H 126 H Lactic Acid Uric Acid Calcium Phosphorus Magnesium Ferritin Total Bilirubin AST Lactate Dehydrogenase Total Creatine Kinase C-Reactive Protein Total Protein Albumin TSH Free T3 Index Urine WBC (Auto) Urine Creatinine Salicylates Acetaminophen Valproic Acid SARS-CoV-2 (PCR) 07/25/22 07/25/22 07/25/22 00:10 04:22 04:22 WBC RBC 2.86 L Hgb 9.4 L Hct 28.5 L MCV 100 H MCH 33 H RDW 15.4 H Plt Count [place] % (Auto) Seg Neutrophils % Seg Neutrophils # PT APTT D-Dimer ABG pH ABG pO2 ABG HCO3 ABG O2 Saturation ABG Base Excess ABG Hemoglobin Oxyhemoglobin Sodium Potassium Chloride Carbon Dioxide 31 H BUN Creatinine 0.3 L Glucose 135 H POC Glucose 131 H Lactic Acid Uric Acid Calcium 8.0 L Phosphorus 2.20 L Magnesium Ferritin Total Bilirubin AST Lactate Dehydrogenase Total Creatine Kinase C-Reactive Protein Total Protein Albumin TSH Free T3 Index Urine WBC (Auto) Urine Creatinine Salicylates Acetaminophen Valproic Acid SARS-CoV-2 (PCR) 07/25/22 07/25/22 07/25/22 05:17 11:49 17:27 WBC RBC Hgb Hct MCV MCH RDW Plt Count [place] % (Auto) Seg Neutrophils % Seg Neutrophils # PT APTT D-Dimer ABG pH ABG pO2 ABG HCO3 ABG O2 Saturation ABG Base Excess ABG Hemoglobin Oxyhemoglobin Sodium Potassium Chloride Carbon Dioxide BUN Creatinine Glucose POC Glucose 155 H 140 H 123 H Lactic Acid Uric Acid Calcium Phosphorus Magnesium Ferritin Total Bilirubin AST Lactate Dehydrogenase Total Creatine Kinase C-Reactive Protein Total Protein Albumin TSH Free T3 Index Urine WBC (Auto) Urine Creatinine Salicylates Acetaminophen Valproic Acid SARS-CoV-2 (PCR) 07/25/22 07/26/22 07/26/22 23:57 06:00 06:08 WBC RBC Hgb Hct MCV MCH RDW Plt Count [place] % (Auto) Seg Neutrophils % Seg Neutrophils # PT APTT D-Dimer ABG pH ABG pO2 ABG HCO3 ABG O2 Saturation ABG Base Excess ABG Hemoglobin Oxyhemoglobin Sodium Potassium 3.5 L Chloride Carbon Dioxide 32 H BUN Creatinine 0.3 L Glucose 116 H POC Glucose 124 H 134 H Lactic Acid Uric Acid Calcium 7.9 L Phosphorus Magnesium Ferritin Total Bilirubin AST Lactate Dehydrogenase Total Creatine Kinase C-Reactive Protein Total Protein Albumin TSH Free T3 Index Urine WBC (Auto) Urine Creatinine Salicylates Acetaminophen Valproic Acid SARS-CoV-2 (PCR) 07/26/22 07/26/22 07/26/22 13:38 17:22 23:22 WBC RBC Hgb Hct MCV MCH RDW Plt Count [place] % (Auto) Seg Neutrophils % Seg Neutrophils # PT APTT D-Dimer ABG pH ABG pO2 ABG HCO3 ABG O2 Saturation ABG Base Excess ABG Hemoglobin Oxyhemoglobin Sodium Potassium Chloride Carbon Dioxide BUN Creatinine Glucose POC Glucose 112 H 123 H 117 H Lactic Acid Uric Acid Calcium Phosphorus Magnesium Ferritin Total Bilirubin AST Lactate Dehydrogenase Total Creatine Kinase C-Reactive Protein Total Protein Albumin TSH Free T3 Index Urine WBC (Auto) Urine Creatinine Salicylates Acetaminophen Valproic Acid SARS-CoV-2 (PCR) 07/26/22 07/27/22 07/27/22 Unknown 05:54 10:00 WBC RBC 2.61 L Hgb 8.8 L Hct 26.2 L MCV 100 H MCH 34 H RDW 15.6 H Plt Count [place] % (Auto) Seg Neutrophils % Seg Neutrophils # PT APTT D-Dimer ABG pH ABG pO2 ABG HCO3 ABG O2 Saturation ABG Base Excess ABG Hemoglobin Oxyhemoglobin Sodium Potassium Chloride Carbon Dioxide BUN Creatinine 0.3 L Glucose 125 H POC Glucose 124 H Lactic Acid Uric Acid Calcium 8.3 L Phosphorus 1.90 L Magnesium Ferritin Total Bilirubin AST Lactate Dehydrogenase Total Creatine Kinase C-Reactive Protein Total Protein Albumin TSH Free T3 Index Urine WBC (Auto) Urine Creatinine Salicylates Acetaminophen Valproic Acid SARS-CoV-2 (PCR) 07/27/22 07/27/22 07/27/22 11:06 18:32 23:20 WBC RBC Hgb Hct MCV MCH RDW Plt Count [place] % (Auto) Seg Neutrophils % Seg Neutrophils # PT APTT D-Dimer ABG pH ABG pO2 ABG HCO3 ABG O2 Saturation ABG Base Excess ABG Hemoglobin Oxyhemoglobin Sodium Potassium Chloride Carbon Dioxide BUN Creatinine Glucose POC Glucose 133 H 119 H 110 H Lactic Acid Uric Acid Calcium Phosphorus Magnesium Ferritin Total Bilirubin AST Lactate Dehydrogenase Total Creatine Kinase C-Reactive Protein Total Protein Albumin TSH Free T3 Index Urine WBC (Auto) Urine Creatinine Salicylates Acetaminophen Valproic Acid SARS-CoV-2 (PCR) 09/07/28/22 07/29/22 05:37 11:13 04:05 WBC RBC 2.64 L Hgb 8.8 L Hct 26.6 L MCV 101 H MCH 33 H RDW 16.4 H Plt Count [place] % (Auto) Seg Neutrophils % Seg Neutrophils # PT APTT D-Dimer ABG pH ABG pO2 ABG HCO3 ABG O2 Saturation ABG Base Excess ABG Hemoglobin Oxyhemoglobin Sodium Potassium Chloride Carbon Dioxide BUN Creatinine Glucose POC Glucose 127 H 115 H Lactic Acid Uric Acid Calcium Phosphorus Magnesium Ferritin Total Bilirubin AST Lactate Dehydrogenase Total Creatine Kinase C-Reactive Protein Total Protein Albumin TSH Free T3 Index Urine WBC (Auto) Urine Creatinine Salicylates Acetaminophen Valproic Acid SARS-CoV-2 (PCR) 07/29/22 07/29/22 07/29/22 04:05 05:20 11:06 WBC RBC Hgb Hct MCV MCH RDW Plt Count [place] % (Auto) Seg Neutrophils % Seg Neutrophils # PT APTT D-Dimer ABG pH ABG pO2 ABG HCO3 ABG O2 Saturation ABG Base Excess ABG Hemoglobin Oxyhemoglobin Sodium Potassium Chloride Carbon Dioxide 33 H BUN Creatinine 0.3 L Glucose 115 H POC Glucose 119 H 125 H Lactic Acid Uric Acid Calcium 8.2 L Phosphorus Magnesium Ferritin Total Bilirubin AST Lactate Dehydrogenase Total Creatine Kinase C-Reactive Protein Total Protein Albumin TSH Free T3 Index Urine WBC (Auto) Urine Creatinine Salicylates Acetaminophen Valproic Acid SARS-CoV-2 (PCR) 07/29/22 07/29/22 07/30/22 16:08 23:41 06:03 WBC RBC Hgb Hct MCV MCH RDW Plt Count [place] % (Auto) Seg Neutrophils % Seg Neutrophils # PT APTT D-Dimer ABG pH ABG pO2 ABG HCO3 ABG O2 Saturation ABG Base Excess ABG Hemoglobin Oxyhemoglobin Sodium Potassium Chloride Carbon Dioxide BUN Creatinine Glucose POC Glucose 111 H 120 H 110 H Lactic Acid Uric Acid Calcium Phosphorus Magnesium Ferritin Total Bilirubin AST Lactate Dehydrogenase Total Creatine Kinase C-Reactive Protein Total Protein Albumin TSH Free T3 Index Urine WBC (Auto) Urine Creatinine Salicylates Acetaminophen Valproic Acid SARS-CoV-2 (PCR) 07/30/22 07/30/22 07/30/22 11:18 14:15 14:15 WBC RBC 2.55 L Hgb 8.5 L Hct 25.7 L MCV 101 H MCH 33 H RDW 16.5 H Plt Count [place] % (Auto) Seg Neutrophils % Seg Neutrophils # PT APTT D-Dimer ABG pH ABG pO2 ABG HCO3 ABG O2 Saturation ABG Base Excess ABG Hemoglobin Oxyhemoglobin Sodium Potassium Chloride Carbon Dioxide BUN Creatinine 0.3 L Glucose POC Glucose 111 H Lactic Acid Uric Acid Calcium Phosphorus Magnesium Ferritin Total Bilirubin AST Lactate Dehydrogenase Total Creatine Kinase C-Reactive Protein Total Protein Albumin TSH Free T3 Index Urine WBC (Auto) Urine Creatinine Salicylates Acetaminophen Valproic Acid SARS-CoV-2 (PCR) 07/30/22 07/31/22 07/31/22 16:30 04:45 04:45 WBC RBC 2.67 L Hgb 8.9 L Hct 26.9 L MCV 101 H MCH 33 H RDW 17.0 H Plt Count [place] % (Auto) Seg Neutrophils % Seg Neutrophils # PT APTT D-Dimer ABG pH ABG pO2 ABG HCO3 ABG O2 Saturation ABG Base Excess ABG Hemoglobin Oxyhemoglobin Sodium Potassium Chloride Carbon Dioxide 32 H BUN Creatinine 0.3 L Glucose 108 H POC Glucose 111 H Lactic Acid Uric Acid Calcium Phosphorus Magnesium Ferritin Total Bilirubin AST Lactate Dehydrogenase Total Creatine Kinase C-Reactive Protein Total Protein Albumin TSH Free T3 Index Urine WBC (Auto) Urine Creatinine Salicylates Acetaminophen Valproic Acid SARS-CoV-2 (PCR) 07/31/22 07/31/22 07/31/22 05:21 11:33 17:57 WBC RBC Hgb Hct MCV MCH RDW Plt Count [place] % (Auto) Seg Neutrophils % Seg Neutrophils # PT APTT D-Dimer ABG pH ABG pO2 ABG HCO3 ABG O2 Saturation ABG Base Excess ABG Hemoglobin Oxyhemoglobin Sodium Potassium Chloride Carbon Dioxide BUN Creatinine Glucose POC Glucose 114 H 112 H 115 H Lactic Acid Uric Acid Calcium Phosphorus Magnesium Ferritin Total Bilirubin AST Lactate Dehydrogenase Total Creatine Kinase C-Reactive Protein Total Protein Albumin TSH Free T3 Index Urine WBC (Auto) Urine Creatinine Salicylates Acetaminophen Valproic Acid SARS-CoV-2 (PCR) 08/01/22 08/01/22 08/01/22 00:24 04:58 06:05 WBC RBC 2.72 L Hgb 9.0 L Hct 27.7 L MCV 102 H MCH 33 H RDW 17.4 H Plt Count [place] % (Auto) Seg Neutrophils % Seg Neutrophils # PT APTT D-Dimer ABG pH ABG pO2 ABG HCO3 ABG O2 Saturation ABG Base Excess ABG Hemoglobin Oxyhemoglobin Sodium Potassium Chloride Carbon Dioxide BUN Creatinine Glucose POC Glucose 108 H 121 H Lactic Acid Uric Acid Calcium Phosphorus Magnesium Ferritin Total Bilirubin AST Lactate Dehydrogenase Total Creatine Kinase C-Reactive Protein Total Protein Albumin TSH Free T3 Index Urine WBC (Auto) Urine Creatinine Salicylates Acetaminophen Valproic Acid SARS-CoV-2 (PCR) 08/01/22 08/01/22 08/02/22 11:48 18:30 00:26 WBC RBC Hgb Hct MCV MCH RDW Plt Count [place] % (Auto) Seg Neutrophils % Seg Neutrophils # PT APTT D-Dimer ABG pH ABG pO2 ABG HCO3 ABG O2 Saturation ABG Base Excess ABG Hemoglobin Oxyhemoglobin Sodium Potassium Chloride Carbon Dioxide BUN Creatinine Glucose POC Glucose 123 H 118 H 106 H Lactic Acid Uric Acid Calcium Phosphorus Magnesium Ferritin Total Bilirubin AST Lactate Dehydrogenase Total Creatine Kinase C-Reactive Protein Total Protein Albumin TSH Free T3 Index Urine WBC (Auto) Urine Creatinine Salicylates Acetaminophen Valproic Acid SARS-CoV-2 (PCR) 08/02/22 08/02/22 08/02/22 05:00 05:57 13:23 WBC RBC Hgb Hct MCV MCH RDW Plt Count [place] % (Auto) Seg Neutrophils % Seg Neutrophils # PT APTT D-Dimer ABG pH ABG pO2 ABG HCO3 ABG O2 Saturation ABG Base Excess ABG Hemoglobin Oxyhemoglobin Sodium Potassium Chloride Carbon Dioxide BUN Creatinine 0.4 L Glucose POC Glucose 119 H 112 H Lactic Acid Uric Acid Calcium Phosphorus Magnesium Ferritin Total Bilirubin AST Lactate Dehydrogenase Total Creatine Kinase C-Reactive Protein Total Protein Albumin TSH Free T3 Index Urine WBC (Auto) Urine Creatinine Salicylates Acetaminophen Valproic Acid SARS-CoV-2 (PCR) 08/02/22 08/02/22 08/03/22 17:29 23:28 06:27 WBC RBC Hgb Hct MCV MCH RDW Plt Count [place] % (Auto) Seg Neutrophils % Seg Neutrophils # PT APTT D-Dimer ABG pH ABG pO2 ABG HCO3 ABG O2 Saturation ABG Base Excess ABG Hemoglobin Oxyhemoglobin Sodium Potassium Chloride Carbon Dioxide BUN Creatinine Glucose POC Glucose 120 H 108 H 140 H Lactic Acid Uric Acid Calcium Phosphorus Magnesium Ferritin Total Bilirubin AST Lactate Dehydrogenase Total Creatine Kinase C-Reactive Protein Total Protein Albumin TSH Free T3 Index Urine WBC (Auto) Urine Creatinine Salicylates Acetaminophen Valproic Acid SARS-CoV-2 (PCR) 08/03/22 08/03/22 08/03/22 10:08 13:07 18:38 WBC RBC Hgb Hct MCV MCH RDW Plt Count [place] % (Auto) Seg Neutrophils % Seg Neutrophils # PT APTT D-Dimer ABG pH ABG pO2 ABG HCO3 ABG O2 Saturation ABG Base Excess ABG Hemoglobin Oxyhemoglobin Sodium Potassium Chloride Carbon Dioxide BUN Creatinine Glucose POC Glucose 113 H 109 H 122 H Lactic Acid Uric Acid Calcium Phosphorus Magnesium Ferritin Total Bilirubin AST Lactate Dehydrogenase Total Creatine Kinase C-Reactive Protein Total Protein Albumin TSH Free T3 Index Urine WBC (Auto) Urine Creatinine Salicylates Acetaminophen Valproic Acid SARS-CoV-2 (PCR) 08/03/22 08/04/22 08/04/22 23:44 05:10 09:39 WBC RBC Hgb Hct MCV MCH RDW Plt Count [place] % (Auto) Seg Neutrophils % Seg Neutrophils # PT APTT D-Dimer ABG pH ABG pO2 ABG HCO3 ABG O2 Saturation ABG Base Excess ABG Hemoglobin Oxyhemoglobin Sodium Potassium Chloride Carbon Dioxide BUN Creatinine Glucose POC Glucose 119 H 114 H 125 H Lactic Acid Uric Acid Calcium Phosphorus Magnesium Ferritin Total Bilirubin AST Lactate Dehydrogenase Total Creatine Kinase C-Reactive Protein Total Protein Albumin TSH Free T3 Index Urine WBC (Auto) Urine Creatinine Salicylates Acetaminophen Valproic Acid SARS-CoV-2 (PCR) 08/04/22 08/04/22 08/04/22 11:37 15:58 23:35 WBC RBC Hgb Hct MCV [facility] RDW Plt Count [place] % (Auto) Seg Neutrophils % Seg Neutrophils # PT APTT D-Dimer ABG pH ABG pO2 ABG HCO3 ABG O2 Saturation ABG Base Excess ABG Hemoglobin Oxyhemoglobin Sodium Potassium Chloride Carbon Dioxide BUN Creatinine Glucose POC Glucose 116 H 112 H 122 H Lactic Acid Uric Acid Calcium Phosphorus Magnesium Ferritin Total Bilirubin AST Lactate Dehydrogenase Total Creatine Kinase C-Reactive Protein Total Protein Albumin TSH Free T3 Index Urine WBC (Auto) Urine Creatinine Salicylates Acetaminophen Valproic Acid SARS-CoV-2 (PCR) 08/05/22 08/05/22 04:00 04:00 WBC RBC 2.76 L Hgb 9.2 L Hct 28.1 L MCV 102 H MCH 33 H RDW 18.7 H Plt Count [place] % (Auto) Seg Neutrophils % Seg Neutrophils # PT APTT D-Dimer ABG pH ABG pO2 ABG HCO3 ABG O2 Saturation ABG Base Excess ABG Hemoglobin Oxyhemoglobin Sodium Potassium Chloride Carbon Dioxide BUN Creatinine 0.3 L Glucose 112 H POC Glucose Lactic Acid Uric Acid Calcium Phosphorus Magnesium Ferritin Total Bilirubin AST Lactate Dehydrogenase Total Creatine Kinase C-Reactive Protein Total Protein Albumin TSH Free T3 Index Urine WBC (Auto) Urine Creatinine Salicylates Acetaminophen Valproic Acid SARS-CoV-2 (PCR)
[2022-08-06] MEDS: INSULIN LISPRO 100 UNIT/ML SUB-Q SCH ×2 (00:06→07:10)
[2022-08-06] MEDS: LEVOTHYROXINE 75 MCG TAB FEEDTUBE SCH (07:10)
[2022-08-06] MEDS: FAMOTIDINE 20 MG TAB FEEDTUBE SCH (09:28)
[2022-08-06] MEDS: APIXABAN 5 MG TAB FEEDTUBE SCH (09:28)
[2022-08-06] MEDS: SENNOSIDES/DOCUSATE SODIUM 8.6/50 MG TAB FEEDTUBE SCH (09:28)
[2022-08-06] MEDS: CHOLECALCIFEROL (VIT D3) 1000 UNIT (25 mcg) TAB FEEDTUBE SCH (09:28)
[2022-08-06] MEDS: VALPROIC ACID 250 MG/5 ML ORAL LIQD FEEDTUBE SCH (09:28)
--- NOTE | 2022-08-06 10:30 | Progress Note ---
Assessment and Plan 76 y/o female with acute respiratory failure secondary to altered mental status, most likely from electrolyte abnormalities seen on chemistry, found to be COVID positive. 08/06/22: STable for transfer once bed available. Continue daily PSV trials. Rest on Vent at night if patient last all day. Can consider extending soon. Tube feeds. other supportive measures. 08/05/22: Continue daily PSV trials. Supportive care. Tolerating Feeds. Hopeful insurer will approve placement for further weaning. 08/04/22: Supportive Measures. Daily PSV trials 08/03/22: Continue supportive measures and daily PSV trials. 08/02/22: Daily PSV Trials 08/01/22: No new pulmonary recs today. I did speak with 2 daughters via the phone on either Friday or Friday to discuss the lack of change in mental state. Per the daughters, /father is telling them he is seeing things that even the daughter who lives here has not seen. They are preparing to speak with their father about her mental state. Continue supportive measures. 07/31/22: Daily PSV trials. PT/OT if possible. Continue tube feeds. 07/30/22: Continue daily PSV trials. 07/29/22: Daily PSV trials. Hold laxatives and stimulants for now. No changes were made in any other meds. Monitor white count and abdominal exam. 07/26/22: Daily PSV trials. Continue tube feeds. Awaiting placement. 07/25/22: Daily PSV trials. Tube feeds going and tolerating. Need to consider at least PT consult to help with movement of lower ext. 07/24/22: Continue tube feeds. Continue daily PSV trials. Await placement, weanable but will need time. 07/23/22: Tube feeds back on. No PSV trials today but will do again tomorrow. Awaiting placement. 07/22/22: Trach and Peg hopefully today. 07/21/22: Did 6 hours of PSV yesterday. Trach and peg tomorrow. Check labs to make sure lytes are stable. 07/20/22: Trach/Peg Friday. Supportive care. 07/19/22: Appreciate Surgery. on Schedule for next week. Free T4 was normal. No current indication for stress dose steroids. Continue supportive care. 07/18/22: Family meeting: Discussed current mental state. Discussed negative work up so far to explain why mental state hasnt improved. Per family here, patient was better than what she is not but I had difficult time placing a time frame as to when that was, maybe May. It does appear that she has had a steady decline mentally and even stopped eating. There were talks prior to her admission here about Peg tube placement. Discussed the idea of trach and peg placement. Also explained to family that trach does not fix any underlying reason as to why the patient's mental state is the way it is. The family wasn't aware that she was brought in for altered mental status, they were told she had bradycardia. Nonetheless, the family as a whole wish to pursue trach and peg placement. Consulted Surgery and hopeful they will see soon. Continue supportive measures and continue daily PSV trials. TSH on admit was 13, will repeat but if T4 is normal, nothing to do. She also is not behaving like myxedema coma. Guarded prognosis. 07/17/22: steroids end today. Continue daily PSV trials. Will speak with family about next steps as today is day 10 of intubation and it does not appear that conventional extubation is in the near future. 07/16/22: Continue daily PSV trials. Will speak with family tomorrow as patient is not improving enough for conventional extubation, especially with frequent apnic events. Most likely patient will need trach and peg. 07/15/22: mental status is still unchanged. Eyes open but not tracking or following commands. Also going apnic on PSV trials. Most likely will need trach and peg given mental status has not improved. 07/12/22: Negative MRI for acute infarct. Na is normal. Continue to monitor. Daily PSV trials. Has been intubated now for 5 days. 07/11/22: for MRI today. Appreciate renal help, agree with signing off. Attempt daily PSV. Guarded prognosis. 07/10: follow up MRI. Get official EEG read but no status. Continue daily PSV trials. Guarded prognosis 07/09/22: Continue supportive measures. Continue to fix Na, if no improvement in mental state with normal sodium then will pursue MRI. Picc placed today. 07/08/22: No further sedation. 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 Consider neurology consult and may need to obtain MRI. Attempt PSV trials today. needs Picc line placed for skilled nursing access as patient is a difficult stick. Feed patient and monitor lytes. 1. Discontinue sedation 2. Wean FiO2 for sats >88% and PaO2 greater than 60 3. Agree with fluid resuscitation, patient needs free water 4. Will follow up with family to find out exactly what patient mental status w as a facility CCT 31 minutes. Subjective Date of service: 08/06/22 Principal diagnosis: Hypernatremia Interval history: No acute events. Clinically stable. Has been approved for LTACH. Objective Vital Signs - 12hr 08/05/22 08/06/22 08/06/22 23:00 00:00 00:10 Temperature 98.6 F Pulse Rate 92 H 101 H 101 H Respiratory 10 L 13 3 L Rate Blood Pressure 119/67 141/79 141/79 O2 Sat by Pulse 100 100 100 Oximetry O2 Sat by Pulse 100 Oximetry [ Assessment] 08/06/22 08/06/22 08/06/22 01:00 02:00 03:00 Temperature Pulse Rate 101 H 101 H 99 H Respiratory 15 13 12 Rate Blood Pressure 115/79 109/76 109/76 O2 Sat by Pulse 99 100 100 Oximetry O2 Sat by Pulse Oximetry [ Assessment] 08/06/22 08/06/22 08/06/22 04:00 05:00 06:00 Temperature 99.3 F Pulse Rate 91 H 92 H 91 H Respiratory 10 L 13 11 L Rate Blood Pressure 126/91 126/91 151/59 O2 Sat by Pulse 100 100 100 Oximetry O2 Sat by Pulse Oximetry [ Assessment] 08/06/22 08/06/22 08/06/22 07:00 07:59 08:00 Temperature 99.2 F Pulse Rate 90 82 Respiratory 11 L 10 L Rate Blood Pressure 148/65 140/66 O2 Sat by Pulse 100 100 Oximetry O2 Sat by Pulse Oximetry [ Assessment] 08/06/22 08/06/22 08:12 09:00 Temperature Pulse Rate 87 Respiratory 15 Rate Blood Pressure 134/65 O2 Sat by Pulse 92 Oximetry O2 Sat by Pulse 100 Oximetry [ Assessment] Constitutional: comatose ENT: other (orally intubated) Neck: supple Effort: normal Ascultation: Bilateral: clear Percussion: Bilateral: not dull Cardiovascular: regular rate and rhythm Gastrointestinal: normoactive bowel sounds, soft Extremities: no cyanosis, no edema Neurologic: unable to assess CBC and BMP: 08/05/22 04:00 08/05/22 04:00 ABG, PT/INR, D-dimer: ABG ABG pH 7.503 pH Units (7.350-7.450) H 07/20/22 05:30 ABG pCO2 42.7 mm Hg 07/20/22 05:30 ABG pO2 99.1 mm Hg (80.0-90.0) H 07/20/22 05:30 ABG O2 Saturation 97.8 % (95.0-99.0) 07/20/22 05:30 PT/INR, D-dimer PT 13.0 Sec. (12.2-14.9) 07/30/22 14:15 INR 0.89 (0.87-1.13) 07/30/22 14:15 D-Dimer 925.80 ng/mlDDU (0-234) H 07/12/22 04:00 Abnormal lab findings: Abnormal Labs 07/07/22 07/07/22 07/07/22 03:17 03:38 03:38 WBC RBC 5.43 H Hgb 18.2 H Hct 54.9 H MCV 101 H MCH 34 H RDW Plt Count 104 L Winn % (Auto) Seg Neutrophils % Seg Neutrophils # PT 15.0 H APTT 23.0 L D-Dimer ABG pH ABG pO2 ABG HCO3 ABG O2 Saturation ABG Base Excess ABG Hemoglobin Oxyhemoglobin Sodium Potassium Chloride Carbon Dioxide BUN Creatinine Glucose POC Glucose Lactic Acid Uric Acid Calcium Phosphorus Magnesium Ferritin Total Bilirubin AST Lactate Dehydrogenase Total Creatine Kinase C-Reactive Protein Total Protein Albumin TSH Free T3 Index Urine WBC (Auto) 7.0 H Urine Creatinine Salicylates Acetaminophen Valproic Acid SARS-CoV-2 (PCR) 07/07/22 07/07/22 07/07/22 03:38 03:38 03:38 WBC RBC Hgb Hct MCV MCH RDW Plt Count Winn % (Auto) Seg Neutrophils % Seg Neutrophils # PT APTT D-Dimer ABG pH ABG pO2 ABG HCO3 ABG O2 Saturation ABG Base Excess ABG Hemoglobin Oxyhemoglobin Sodium Potassium Chloride Carbon Dioxide BUN Creatinine Glucose POC Glucose Lactic Acid Uric Acid Calcium Phosphorus Magnesium 3.30 H Ferritin Total Bilirubin AST Lactate Dehydrogenase Total Creatine Kinase 1826 H C-Reactive Protein Total Protein Albumin TSH Free T3 Index Urine WBC (Auto) Urine Creatinine Salicylates < 0.3 L Acetaminophen 5.0 L Valproic Acid 7.0 L SARS-CoV-2 (PCR) 07/07/22 07/07/22 07/07/22 04:17 04:17 04:17 WBC RBC Hgb Hct MCV MCH RDW Plt Count Winn % (Auto) Seg Neutrophils % Seg Neutrophils # PT APTT D-Dimer ABG pH ABG pO2 ABG HCO3 ABG O2 Saturation ABG Base Excess ABG Hemoglobin Oxyhemoglobin Sodium 168 H* Potassium 3.2 L Chloride 122.2 H Carbon Dioxide BUN 52 H Creatinine Glucose 158 H POC Glucose Lactic Acid 3.50 H* Uric Acid Calcium 10.9 H Phosphorus Magnesium Ferritin Total Bilirubin 1.40 H AST 47 H Lactate Dehydrogenase Total Creatine Kinase C-Reactive Protein Total Protein Albumin TSH 12.790 H Free T3 Index Urine WBC (Auto) Urine Creatinine Salicylates Acetaminophen Valproic Acid SARS-CoV-2 (PCR) 07/07/22 07/07/22 07/07/22 04:17 07:43 09:35 WBC RBC Hgb Hct MCV MCH RDW Plt Count Winn % (Auto) Seg Neutrophils % Seg Neutrophils # PT APTT D-Dimer ABG pH ABG pO2 377.3 H ABG HCO3 ABG O2 Saturation 99.6 H ABG Base Excess -2.5 L ABG Hemoglobin Oxyhemoglobin Sodium Potassium Chloride Carbon Dioxide BUN Creatinine Glucose POC Glucose Lactic Acid 6.30 H* Uric Acid 13.5 H Calcium Phosphorus Magnesium Ferritin Total Bilirubin AST Lactate Dehydrogenase Total Creatine Kinase C-Reactive Protein Total Protein Albumin TSH Free T3 Index Urine WBC (Auto) Urine Creatinine Salicylates Acetaminophen Valproic Acid SARS-CoV-2 (PCR) 07/07/22 07/07/22 07/07/22 15:00 16:00 16:00 WBC RBC Hgb Hct MCV MCH RDW Plt Count Winn % (Auto) Seg Neutrophils % Seg Neutrophils # PT APTT D-Dimer ABG pH ABG pO2 ABG HCO3 ABG O2 Saturation ABG Base Excess ABG Hemoglobin Oxyhemoglobin Sodium 166 H* Potassium Chloride 124.8 H Carbon Dioxide 20 L BUN 41 H Creatinine Glucose 157 H POC Glucose Lactic Acid 7.00 H* Uric Acid Calcium Phosphorus Magnesium Ferritin Total Bilirubin AST 81 H Lactate Dehydrogenase Total Creatine Kinase C-Reactive Protein Total Protein Albumin TSH Free T3 Index Urine WBC (Auto) Urine Creatinine Salicylates Acetaminophen Valproic Acid SARS-CoV-2 (PCR) Positive A 07/07/22 07/07/22 07/07/22 16:45 23:42 23:42 WBC RBC Hgb Hct MCV MCH RDW Plt Count Winn % (Auto) Seg Neutrophils % Seg Neutrophils # PT APTT D-Dimer ABG pH ABG pO2 ABG HCO3 ABG O2 Saturation ABG Base Excess ABG Hemoglobin Oxyhemoglobin Sodium 165 H* Potassium 3.0 L Chloride 122.8 H Carbon Dioxide BUN 38 H Creatinine Glucose 232 H POC Glucose Lactic Acid 5.60 H* Uric Acid Calcium Phosphorus Magnesium Ferritin Total Bilirubin AST Lactate Dehydrogenase Total Creatine Kinase C-Reactive Protein Total Protein Albumin TSH Free T3 Index Urine WBC (Auto) Urine Creatinine 92.9 H Salicylates Acetaminophen Valproic Acid SARS-CoV-2 (PCR) 07/07/22 07/07/22 07/08/22 Unknown Unknown 05:30 WBC RBC Hgb Hct MCV MCH RDW Plt Count Winn % (Auto) Seg Neutrophils % Seg Neutrophils # PT APTT D-Dimer ABG pH 7.553 H 7.473 H ABG pO2 61.7 L 121.7 H ABG HCO3 ABG O2 Saturation 94.7 L ABG Base Excess 4.3 H ABG Hemoglobin 18.0 H Oxyhemoglobin 93.1 L Sodium 163 H* Potassium 6.3 H* D Chloride 123.7 H Carbon Dioxide BUN 42 H Creatinine Glucose 169 H POC Glucose Lactic Acid Uric Acid Calcium Phosphorus Magnesium Ferritin Total Bilirubin AST Lactate Dehydrogenase Total Creatine Kinase C-Reactive Protein Total Protein Albumin TSH Free T3 Index Urine WBC (Auto) Urine Creatinine Salicylates Acetaminophen Valproic Acid SARS-CoV-2 (PCR) 07/08/22 07/08/22 07/08/22 05:36 11:21 14:54 WBC 11.1 H RBC Hgb Hct MCV 101 H MCH 33 H RDW Plt Count 69 L Winn % (Auto) Seg Neutrophils % 82.0 H Seg Neutrophils # 9.1 H PT APTT D-Dimer ABG pH ABG pO2 ABG HCO3 ABG O2 Saturation ABG Base Excess ABG Hemoglobin Oxyhemoglobin Sodium Potassium Chloride Carbon Dioxide BUN Creatinine Glucose POC Glucose 174 H 148 H Lactic Acid Uric Acid Calcium Phosphorus Magnesium Ferritin Total Bilirubin AST Lactate Dehydrogenase Total Creatine Kinase C-Reactive Protein Total Protein Albumin TSH Free T3 Index Urine WBC (Auto) Urine Creatinine Salicylates Acetaminophen Valproic Acid SARS-CoV-2 (PCR) 07/08/22 07/08/22 07/08/22 14:54 14:54 14:54 WBC RBC Hgb Hct MCV MCH RDW Plt Count Winn % (Auto) Seg Neutrophils % Seg Neutrophils # PT APTT D-Dimer ABG pH ABG pO2 ABG HCO3 ABG O2 Saturation ABG Base Excess ABG Hemoglobin Oxyhemoglobin Sodium 163 H* Potassium 2.9 L* Chloride 123.7 H Carbon Dioxide BUN 30 H Creatinine Glucose 161 H POC Glucose Lactic Acid 6.10 H* Uric Acid Calcium Phosphorus Magnesium Ferritin Total Bilirubin AST 69 H Lactate Dehydrogenase Total Creatine Kinase 2335 H C-Reactive Protein Total Protein 5.6 L D Albumin 3.1 L TSH Free T3 Index Urine WBC (Auto) Urine Creatinine Salicylates Acetaminophen Valproic Acid SARS-CoV-2 (PCR) 07/08/22 07/08/22 07/08/22 14:54 14:54 14:54 WBC RBC Hgb Hct MCV MCH RDW Plt Count Winn % (Auto) Seg Neutrophils % Seg Neutrophils # PT APTT D-Dimer 499.72 H ABG pH ABG pO2 ABG HCO3 ABG O2 Saturation ABG Base Excess ABG Hemoglobin Oxyhemoglobin Sodium Potassium Chloride Carbon Dioxide BUN Creatinine Glucose POC Glucose Lactic Acid Uric Acid Calcium Phosphorus Magnesium Ferritin 722.1 H Total Bilirubin AST Lactate Dehydrogenase 455 H Total Creatine Kinase C-Reactive Protein 1.60 H Total Protein Albumin TSH Free T3 Index Urine WBC (Auto) Urine Creatinine Salicylates Acetaminophen Valproic Acid SARS-CoV-2 (PCR) 07/08/22 07/08/22 07/09/22 19:13 19:53 00:09 WBC RBC Hgb Hct MCV MCH RDW Plt Count Winn % (Auto) Seg Neutrophils % Seg Neutrophils # PT APTT D-Dimer ABG pH ABG pO2 ABG HCO3 ABG O2 Saturation ABG Base Excess ABG Hemoglobin Oxyhemoglobin Sodium 160 H Potassium 3.5 L D Chloride 122.0 H Carbon Dioxide 20 L BUN 28 H Creatinine Glucose 151 H POC Glucose 138 H Lactic Acid 5.70 H* Uric Acid Calcium Phosphorus Magnesium Ferritin Total Bilirubin AST Lactate Dehydrogenase Total Creatine Kinase C-Reactive Protein Total Protein Albumin TSH Free T3 Index Urine WBC (Auto) Urine Creatinine Salicylates Acetaminophen Valproic Acid SARS-CoV-2 (PCR) 07/09/22 07/09/22 07/09/22 00:45 03:21 03:21 WBC RBC Hgb Hct MCV MCH RDW Plt Count Winn % (Auto) Seg Neutrophils % Seg Neutrophils # PT APTT D-Dimer ABG pH ABG pO2 ABG HCO3 ABG O2 Saturation ABG Base Excess ABG Hemoglobin Oxyhemoglobin Sodium 158 H 157 H Potassium Chloride 124.2 H 125.0 H Carbon Dioxide 20 L 20 L BUN 25 H 24 H Creatinine Glucose 147 H 169 H POC Glucose Lactic Acid 4.70 H* Uric Acid Calcium Phosphorus Magnesium Ferritin Total Bilirubin AST 81 H Lactate Dehydrogenase Total Creatine Kinase C-Reactive Protein Total Protein 5.7 L Albumin 2.8 L TSH Free T3 Index Urine WBC (Auto) Urine Creatinine Salicylates Acetaminophen Valproic Acid SARS-CoV-2 (PCR) 07/09/22 07/09/22 07/09/22 04:40 05:35 08:14 WBC RBC Hgb Hct MCV 102 H MCH 33 H RDW Plt Count 74 L Winn % (Auto) Seg Neutrophils % Seg Neutrophils # PT APTT D-Dimer ABG pH ABG pO2 172.1 H ABG HCO3 ABG O2 Saturation 99.1 H ABG Base Excess -2.8 L ABG Hemoglobin Oxyhemoglobin Sodium Potassium Chloride Carbon Dioxide BUN Creatinine Glucose POC Glucose 108 H Lactic Acid Uric Acid Calcium Phosphorus Magnesium Ferritin Total Bilirubin AST Lactate Dehydrogenase Total Creatine Kinase C-Reactive Protein Total Protein Albumin TSH Free T3 Index Urine WBC (Auto) Urine Creatinine Salicylates Acetaminophen Valproic Acid SARS-CoV-2 (PCR) 07/09/22 07/09/22 07/09/22 11:16 11:27 16:20 WBC RBC Hgb Hct MCV MCH RDW Plt Count Winn % (Auto) Seg Neutrophils % Seg Neutrophils # PT APTT D-Dimer ABG pH ABG pO2 ABG HCO3 ABG O2 Saturation ABG Base Excess ABG Hemoglobin Oxyhemoglobin Sodium 155 H Potassium Chloride 121.3 H Carbon Dioxide BUN 21 H Creatinine Glucose 170 H POC Glucose 173 H 190 H Lactic Acid Uric Acid Calcium Phosphorus Magnesium Ferritin Total Bilirubin AST Lactate Dehydrogenase Total Creatine Kinase C-Reactive Protein Total Protein Albumin TSH Free T3 Index Urine WBC (Auto) Urine Creatinine Salicylates Acetaminophen Valproic Acid SARS-CoV-2 (PCR) 07/09/22 07/10/22 07/10/22 17:16 00:04 04:21 WBC RBC Hgb Hct MCV MCH RDW Plt Count Winn % (Auto) Seg Neutrophils % Seg Neutrophils # PT APTT D-Dimer ABG pH ABG pO2 ABG HCO3 ABG O2 Saturation ABG Base Excess ABG Hemoglobin Oxyhemoglobin Sodium 149 H 150 H Potassium Chloride 115.6 H 115.0 H Carbon Dioxide BUN 18 H Creatinine 0.5 L Glucose 207 H 178 H POC Glucose 180 H Lactic Acid Uric Acid Calcium 7.9 L Phosphorus Magnesium Ferritin Total Bilirubin AST 89 H Lactate Dehydrogenase 431 H Total Creatine Kinase C-Reactive Protein Total Protein 4.9 L Albumin 2.5 L TSH Free T3 Index Urine WBC (Auto) Urine Creatinine Salicylates Acetaminophen Valproic Acid SARS-CoV-2 (PCR) 07/10/22 07/10/22 07/10/22 04:21 04:21 04:21 WBC 11.8 H RBC 3.52 L Hgb Hct MCV 99 H MCH 33 H RDW Plt Count 67 L Winn % (Auto) Seg Neutrophils % Seg Neutrophils # PT APTT D-Dimer 585.71 H ABG pH ABG pO2 ABG HCO3 ABG O2 Saturation ABG Base Excess ABG Hemoglobin Oxyhemoglobin Sodium Potassium Chloride Carbon Dioxide BUN Creatinine Glucose POC Glucose Lactic Acid Uric Acid Calcium Phosphorus Magnesium Ferritin 631.3 H Total Bilirubin AST Lactate Dehydrogenase Total Creatine Kinase C-Reactive Protein Total Protein Albumin TSH Free T3 Index Urine WBC (Auto) Urine Creatinine Salicylates Acetaminophen Valproic Acid SARS-CoV-2 (PCR) 07/10/22 07/10/22 07/10/22 04:21 04:55 05:26 WBC RBC Hgb Hct MCV MCH RDW Plt Count Winn % (Auto) Seg Neutrophils % Seg Neutrophils # PT APTT D-Dimer ABG pH ABG pO2 76.8 L ABG HCO3 ABG O2 Saturation ABG Base Excess ABG Hemoglobin 10.4 L Oxyhemoglobin 94.5 L Sodium Potassium Chloride Carbon Dioxide BUN Creatinine Glucose POC Glucose 147 H Lactic Acid 2.50 H* Uric Acid Calcium Phosphorus Magnesium Ferritin Total Bilirubin AST Lactate Dehydrogenase Total Creatine Kinase C-Reactive Protein Total Protein Albumin TSH Free T3 Index Urine WBC (Auto) Urine Creatinine Salicylates Acetaminophen Valproic Acid SARS-CoV-2 (PCR) 07/10/22 07/10/22 07/10/22 08:24 11:31 12:53 WBC RBC Hgb Hct MCV MCH RDW Plt Count Winn % (Auto) Seg Neutrophils % Seg Neutrophils # PT APTT D-Dimer ABG pH ABG pO2 ABG HCO3 ABG O2 Saturation ABG Base Excess ABG Hemoglobin Oxyhemoglobin Sodium Potassium Chloride 110.9 H Carbon Dioxide BUN Creatinine 0.5 L Glucose 200 H POC Glucose 166 H Lactic Acid 2.10 H* Uric Acid Calcium 8.3 L Phosphorus Magnesium Ferritin Total Bilirubin AST Lactate Dehydrogenase Total Creatine Kinase C-Reactive Protein Total Protein Albumin TSH Free T3 Index Urine WBC (Auto) Urine Creatinine Salicylates Acetaminophen Valproic Acid SARS-CoV-2 (PCR) 07/10/22 07/10/22 07/10/22 17:37 18:53 23:30 WBC RBC Hgb Hct MCV MCH RDW Plt Count Winn % (Auto) Seg Neutrophils % Seg Neutrophils # PT APTT D-Dimer ABG pH ABG pO2 ABG HCO3 ABG O2 Saturation ABG Base Excess ABG Hemoglobin Oxyhemoglobin Sodium Potassium Chloride 109.5 H 110.2 H Carbon Dioxide BUN Creatinine 0.5 L 0.5 L Glucose 243 H 208 H POC Glucose 237 H Lactic Acid Uric Acid Calcium 8.1 L 8.1 L Phosphorus Magnesium Ferritin Total Bilirubin AST Lactate Dehydrogenase Total Creatine Kinase C-Reactive Protein Total Protein Albumin TSH Free T3 Index Urine WBC (Auto) Urine Creatinine Salicylates Acetaminophen Valproic Acid SARS-CoV-2 (PCR) 07/10/22 07/11/22 07/11/22 23:57 04:00 04:15 WBC 11.2 H RBC Hgb Hct MCV 99 H MCH RDW Plt Count 73 L Winn % (Auto) Seg Neutrophils % Seg Neutrophils # PT APTT D-Dimer ABG pH ABG pO2 107.4 H ABG HCO3 ABG O2 Saturation ABG Base Excess ABG Hemoglobin Oxyhemoglobin Sodium Potassium Chloride Carbon Dioxide BUN Creatinine Glucose POC Glucose 195 H Lactic Acid Uric Acid Calcium Phosphorus Magnesium Ferritin Total Bilirubin AST Lactate Dehydrogenase Total Creatine Kinase C-Reactive Protein Total Protein Albumin TSH Free T3 Index Urine WBC (Auto) Urine Creatinine Salicylates Acetaminophen Valproic Acid SARS-CoV-2 (PCR) 07/11/22 07/11/22 07/11/22 05:40 05:40 06:06 WBC RBC Hgb Hct MCV MCH RDW Plt Count Winn % (Auto) Seg Neutrophils % Seg Neutrophils # PT APTT D-Dimer ABG pH ABG pO2 ABG HCO3 ABG O2 Saturation ABG Base Excess ABG Hemoglobin Oxyhemoglobin Sodium Potassium Chloride 109.8 H Carbon Dioxide BUN Creatinine 0.5 L Glucose 160 H POC Glucose 145 H Lactic Acid Uric Acid Calcium 8.3 L Phosphorus Magnesium Ferritin Total Bilirubin AST Lactate Dehydrogenase Total Creatine Kinase 1745 H C-Reactive Protein Total Protein Albumin TSH Free T3 Index Urine WBC (Auto) Urine Creatinine Salicylates Acetaminophen Valproic Acid SARS-CoV-2 (PCR) 07/11/22 07/11/22 07/11/22 11:55 11:59 17:44 WBC RBC Hgb Hct MCV MCH RDW Plt Count Winn % (Auto) Seg Neutrophils % Seg Neutrophils # PT APTT D-Dimer ABG pH ABG pO2 ABG HCO3 ABG O2 Saturation ABG Base Excess ABG Hemoglobin Oxyhemoglobin Sodium Potassium Chloride 107.8 H Carbon Dioxide BUN Creatinine 0.5 L Glucose 150 H POC Glucose 150 H 182 H Lactic Acid Uric Acid Calcium 8.2 L Phosphorus Magnesium Ferritin Total Bilirubin AST Lactate Dehydrogenase Total Creatine Kinase C-Reactive Protein Total Protein Albumin TSH Free T3 Index Urine WBC (Auto) Urine Creatinine Salicylates Acetaminophen Valproic Acid SARS-CoV-2 (PCR) 07/11/22 07/12/22 07/12/22 17:50 00:10 00:12 WBC RBC Hgb Hct MCV MCH RDW Plt Count Winn % (Auto) Seg Neutrophils % Seg Neutrophils # PT APTT D-Dimer ABG pH ABG pO2 ABG HCO3 ABG O2 Saturation ABG Base Excess ABG Hemoglobin Oxyhemoglobin Sodium Potassium Chloride 108.4 H Carbon Dioxide BUN Creatinine 0.5 L 0.4 L Glucose 191 H 163 H POC Glucose 154 H Lactic Acid Uric Acid Calcium 8.2 L 7.9 L Phosphorus Magnesium Ferritin Total Bilirubin AST Lactate Dehydrogenase Total Creatine Kinase C-Reactive Protein Total Protein Albumin TSH Free T3 Index Urine WBC (Auto) Urine Creatinine Salicylates Acetaminophen Valproic Acid SARS-CoV-2 (PCR) 07/12/22 07/12/22 07/12/22 04:00 04:00 04:00 WBC RBC Hgb Hct MCV MCH RDW Plt Count Winn % (Auto) Seg Neutrophils % Seg Neutrophils # PT APTT D-Dimer 925.80 H ABG pH ABG pO2 ABG HCO3 ABG O2 Saturation ABG Base Excess ABG Hemoglobin Oxyhemoglobin Sodium Potassium Chloride Carbon Dioxide BUN Creatinine Glucose POC Glucose Lactic Acid Uric Acid Calcium Phosphorus Magnesium Ferritin 519.5 H Total Bilirubin AST Lactate Dehydrogenase 444 H Total Creatine Kinase C-Reactive Protein Total Protein Albumin TSH Free T3 Index Urine WBC (Auto) Urine Creatinine Salicylates Acetaminophen Valproic Acid SARS-CoV-2 (PCR) 07/12/22 07/12/22 07/12/22 04:00 05:00 05:03 WBC 11.7 H RBC 3.33 L Hgb Hct MCV 99 H MCH 33 H RDW Plt Count 68 L Winn % (Auto) Seg Neutrophils % Seg Neutrophils # PT APTT D-Dimer ABG pH 7.453 H ABG pO2 107.9 H ABG HCO3 27.9 H ABG O2 Saturation ABG Base Excess 3.7 H ABG Hemoglobin 10.9 L Oxyhemoglobin Sodium Potassium Chloride Carbon Dioxide BUN Creatinine Glucose POC Glucose 174 H Lactic Acid Uric Acid Calcium Phosphorus Magnesium Ferritin Total Bilirubin AST Lactate Dehydrogenase Total Creatine Kinase C-Reactive Protein Total Protein Albumin TSH Free T3 Index Urine WBC (Auto) Urine Creatinine Salicylates Acetaminophen Valproic Acid SARS-CoV-2 (PCR) 07/12/22 07/12/22 07/12/22 12:15 17:18 23:14 WBC RBC Hgb Hct MCV MCH RDW Plt Count Winn % (Auto) Seg Neutrophils % Seg Neutrophils # PT APTT D-Dimer ABG pH ABG pO2 ABG HCO3 ABG O2 Saturation ABG Base Excess ABG Hemoglobin Oxyhemoglobin Sodium Potassium Chloride Carbon Dioxide BUN Creatinine Glucose POC Glucose 154 H 154 H 167 H Lactic Acid Uric Acid Calcium Phosphorus Magnesium Ferritin Total Bilirubin AST Lactate Dehydrogenase Total Creatine Kinase C-Reactive Protein Total Protein Albumin TSH Free T3 Index Urine WBC (Auto) Urine Creatinine Salicylates Acetaminophen Valproic Acid SARS-CoV-2 (PCR) 07/13/22 07/13/22 07/13/22 04:00 04:10 05:14 WBC RBC 3.17 L Hgb Hct MCV 98 H MCH 34 H RDW Plt Count 75 L Winn % (Auto) Seg Neutrophils % Seg Neutrophils # PT APTT D-Dimer ABG pH ABG pO2 ABG HCO3 ABG O2 Saturation ABG Base Excess ABG Hemoglobin Oxyhemoglobin Sodium Potassium Chloride Carbon Dioxide BUN Creatinine 0.4 L Glucose 136 H POC Glucose 140 H Lactic Acid Uric Acid Calcium Phosphorus Magnesium Ferritin Total Bilirubin AST Lactate Dehydrogenase Total Creatine Kinase C-Reactive Protein Total Protein Albumin TSH Free T3 Index Urine WBC (Auto) Urine Creatinine Salicylates Acetaminophen Valproic Acid SARS-CoV-2 (PCR) 07/13/22 07/13/22 07/13/22 12:03 14:25 17:19 WBC RBC Hgb Hct MCV MCH RDW Plt Count Winn % (Auto) Seg Neutrophils % Seg Neutrophils # PT APTT D-Dimer ABG pH 7.478 H ABG pO2 118.1 H ABG HCO3 28.2 H ABG O2 Saturation ABG Base Excess 4.5 H ABG Hemoglobin Oxyhemoglobin Sodium Potassium Chloride Carbon Dioxide BUN Creatinine Glucose POC Glucose 193 H 189 H Lactic Acid Uric Acid Calcium Phosphorus Magnesium Ferritin Total Bilirubin AST Lactate Dehydrogenase Total Creatine Kinase C-Reactive Protein Total Protein Albumin TSH Free T3 Index Urine WBC (Auto) Urine Creatinine Salicylates Acetaminophen Valproic Acid SARS-CoV-2 (PCR) 07/13/22 07/13/22 07/14/22 23:52 Unknown 06:18 WBC RBC Hgb Hct MCV MCH RDW Plt Count [place] % (Auto) Seg Neutrophils % Seg Neutrophils # PT APTT D-Dimer ABG pH 7.465 H ABG pO2 128.8 H ABG HCO3 29.0 H ABG O2 Saturation ABG Base Excess 4.9 H ABG Hemoglobin 10.3 L Oxyhemoglobin Sodium Potassium Chloride Carbon Dioxide BUN Creatinine Glucose POC Glucose 174 H 167 H Lactic Acid Uric Acid Calcium Phosphorus Magnesium Ferritin Total Bilirubin AST Lactate Dehydrogenase Total Creatine Kinase C-Reactive Protein Total Protein Albumin TSH Free T3 Index Urine WBC (Auto) Urine Creatinine Salicylates Acetaminophen Valproic Acid SARS-CoV-2 (PCR) 07/14/22 07/14/22 07/15/22 11:34 17:20 00:25 WBC RBC Hgb Hct MCV MCH RDW Plt Count [place] % (Auto) Seg Neutrophils % Seg Neutrophils # PT APTT D-Dimer ABG pH ABG pO2 ABG HCO3 ABG O2 Saturation ABG Base Excess ABG Hemoglobin Oxyhemoglobin Sodium Potassium Chloride Carbon Dioxide BUN Creatinine Glucose POC Glucose 187 H 221 H 172 H Lactic Acid Uric Acid Calcium Phosphorus Magnesium Ferritin Total Bilirubin AST Lactate Dehydrogenase Total Creatine Kinase C-Reactive Protein Total Protein Albumin TSH Free T3 Index Urine WBC (Auto) Urine Creatinine Salicylates Acetaminophen Valproic Acid SARS-CoV-2 (PCR) 07/15/22 07/15/22 07/15/22 04:00 04:00 05:49 WBC 11.4 H RBC 3.13 L Hgb Hct MCV 98 H MCH 33 H RDW Plt Count 98 L [place] % (Auto) Seg Neutrophils % Seg Neutrophils # PT APTT D-Dimer ABG pH ABG pO2 ABG HCO3 ABG O2 Saturation ABG Base Excess ABG Hemoglobin Oxyhemoglobin Sodium Potassium Chloride Carbon Dioxide 34 H BUN Creatinine 0.4 L Glucose 126 H POC Glucose 143 H Lactic Acid Uric Acid Calcium Phosphorus Magnesium Ferritin Total Bilirubin AST Lactate Dehydrogenase Total Creatine Kinase C-Reactive Protein Total Protein Albumin TSH Free T3 Index Urine WBC (Auto) Urine Creatinine Salicylates Acetaminophen Valproic Acid SARS-CoV-2 (PCR) 07/15/22 07/15/22 07/16/22 11:19 16:16 00:19 WBC RBC Hgb Hct MCV MCH RDW Plt Count [place] % (Auto) Seg Neutrophils % Seg Neutrophils # PT APTT D-Dimer ABG pH ABG pO2 ABG HCO3 ABG O2 Saturation ABG Base Excess ABG Hemoglobin Oxyhemoglobin Sodium Potassium Chloride Carbon Dioxide BUN Creatinine Glucose POC Glucose 158 H 227 H 153 H Lactic Acid Uric Acid Calcium Phosphorus Magnesium Ferritin Total Bilirubin AST Lactate Dehydrogenase Total Creatine Kinase C-Reactive Protein Total Protein Albumin TSH Free T3 Index Urine WBC (Auto) Urine Creatinine Salicylates Acetaminophen Valproic Acid SARS-CoV-2 (PCR) 07/16/22 07/16/22 07/16/22 04:20 04:20 11:28 WBC RBC 3.16 L Hgb Hct MCV 99 H MCH 33 H RDW Plt Count 101 L [place] % (Auto) Seg Neutrophils % Seg Neutrophils # PT APTT D-Dimer ABG pH ABG pO2 ABG HCO3 ABG O2 Saturation ABG Base Excess ABG Hemoglobin Oxyhemoglobin Sodium Potassium Chloride Carbon Dioxide 36 H BUN 18 H Creatinine 0.4 L Glucose 139 H POC Glucose 158 H Lactic Acid Uric Acid Calcium Phosphorus Magnesium Ferritin Total Bilirubin AST Lactate Dehydrogenase Total Creatine Kinase C-Reactive Protein Total Protein Albumin TSH Free T3 Index Urine WBC (Auto) Urine Creatinine Salicylates Acetaminophen Valproic Acid SARS-CoV-2 (PCR) 07/16/22 07/17/22 07/17/22 16:30 00:07 05:46 WBC RBC Hgb Hct MCV MCH RDW Plt Count [place] % (Auto) Seg Neutrophils % Seg Neutrophils # PT APTT D-Dimer ABG pH ABG pO2 ABG HCO3 ABG O2 Saturation ABG Base Excess ABG Hemoglobin Oxyhemoglobin Sodium Potassium Chloride Carbon Dioxide BUN Creatinine Glucose POC Glucose 201 H 139 H 123 H Lactic Acid Uric Acid Calcium Phosphorus Magnesium Ferritin Total Bilirubin AST Lactate Dehydrogenase Total Creatine Kinase C-Reactive Protein Total Protein Albumin TSH Free T3 Index Urine WBC (Auto) Urine Creatinine Salicylates Acetaminophen Valproic Acid SARS-CoV-2 (PCR) 07/17/22 07/17/22 07/17/22 13:30 17:51 23:49 WBC RBC Hgb Hct MCV MCH RDW Plt Count [place] % (Auto) Seg Neutrophils % Seg Neutrophils # PT APTT D-Dimer ABG pH ABG pO2 ABG HCO3 ABG O2 Saturation ABG Base Excess ABG Hemoglobin Oxyhemoglobin Sodium Potassium Chloride Carbon Dioxide BUN Creatinine Glucose POC Glucose 185 H 219 H 133 H Lactic Acid Uric Acid Calcium Phosphorus Magnesium Ferritin Total Bilirubin AST Lactate Dehydrogenase Total Creatine Kinase C-Reactive Protein Total Protein Albumin TSH Free T3 Index Urine WBC (Auto) Urine Creatinine Salicylates Acetaminophen Valproic Acid SARS-CoV-2 (PCR) 07/18/22 07/18/22 07/18/22 04:00 04:00 04:00 WBC 12.2 H RBC 3.34 L Hgb Hct MCV 100 H MCH 33 H RDW Plt Count 113 L [place] % (Auto) Seg Neutrophils % 77.3 H Seg Neutrophils # 9.4 H PT APTT D-Dimer ABG pH 7.508 H ABG pO2 115.9 H ABG HCO3 33.4 H ABG O2 Saturation ABG Base Excess 9.4 H ABG Hemoglobin 11.7 L Oxyhemoglobin Sodium Potassium Chloride Carbon Dioxide 35 H BUN Creatinine 0.4 L Glucose 130 H POC Glucose Lactic Acid Uric Acid Calcium Phosphorus Magnesium Ferritin Total Bilirubin AST Lactate Dehydrogenase Total Creatine Kinase C-Reactive Protein Total Protein Albumin TSH Free T3 Index Urine WBC (Auto) Urine Creatinine Salicylates Acetaminophen Valproic Acid SARS-CoV-2 (PCR) 07/18/22 07/18/22 07/18/22 04:42 12:31 12:31 WBC RBC Hgb Hct MCV MCH RDW Plt Count [place] % (Auto) Seg Neutrophils % Seg Neutrophils # PT APTT D-Dimer ABG pH ABG pO2 ABG HCO3 ABG O2 Saturation ABG Base Excess ABG Hemoglobin Oxyhemoglobin Sodium Potassium Chloride Carbon Dioxide BUN Creatinine Glucose POC Glucose 134 H Lactic Acid Uric Acid Calcium Phosphorus Magnesium Ferritin Total Bilirubin AST Lactate Dehydrogenase Total Creatine Kinase C-Reactive Protein Total Protein Albumin TSH 9.750 H Free T3 Index 1.7 L Urine WBC (Auto) Urine Creatinine Salicylates Acetaminophen Valproic Acid SARS-CoV-2 (PCR) 07/18/22 07/18/22 07/19/22 12:33 17:39 00:43 WBC RBC Hgb Hct MCV MCH RDW Plt Count [place] % (Auto) Seg Neutrophils % Seg Neutrophils # PT APTT D-Dimer ABG pH ABG pO2 ABG HCO3 ABG O2 Saturation ABG Base Excess ABG Hemoglobin Oxyhemoglobin Sodium Potassium Chloride Carbon Dioxide BUN Creatinine Glucose POC Glucose 172 H 164 H 132 H Lactic Acid Uric Acid Calcium Phosphorus Magnesium Ferritin Total Bilirubin AST Lactate Dehydrogenase Total Creatine Kinase C-Reactive Protein Total Protein Albumin TSH Free T3 Index Urine WBC (Auto) Urine Creatinine Salicylates Acetaminophen Valproic Acid SARS-CoV-2 (PCR) 07/19/22 07/19/22 07/19/22 05:08 12:30 17:42 WBC RBC Hgb Hct MCV MCH RDW Plt Count [place] % (Auto) Seg Neutrophils % Seg Neutrophils # PT APTT D-Dimer ABG pH ABG pO2 ABG HCO3 ABG O2 Saturation ABG Base Excess ABG Hemoglobin Oxyhemoglobin Sodium Potassium Chloride Carbon Dioxide BUN Creatinine Glucose POC Glucose 143 H 159 H 139 H Lactic Acid Uric Acid Calcium Phosphorus Magnesium Ferritin Total Bilirubin AST Lactate Dehydrogenase Total Creatine Kinase C-Reactive Protein Total Protein Albumin TSH Free T3 Index Urine WBC (Auto) Urine Creatinine Salicylates Acetaminophen Valproic Acid SARS-CoV-2 (PCR) 07/19/22 07/20/22 07/20/22 23:26 05:30 06:03 WBC RBC Hgb Hct MCV MCH RDW Plt Count [place] % (Auto) Seg Neutrophils % Seg Neutrophils # PT APTT D-Dimer ABG pH 7.503 H ABG pO2 99.1 H ABG HCO3 32.8 H ABG O2 Saturation ABG Base Excess 8.8 H ABG Hemoglobin 9.7 L Oxyhemoglobin Sodium Potassium Chloride Carbon Dioxide BUN Creatinine Glucose POC Glucose 144 H 146 H Lactic Acid Uric Acid Calcium Phosphorus Magnesium Ferritin Total Bilirubin AST Lactate Dehydrogenase Total Creatine Kinase C-Reactive Protein Total Protein Albumin TSH Free T3 Index Urine WBC (Auto) Urine Creatinine Salicylates Acetaminophen Valproic Acid SARS-CoV-2 (PCR) 07/20/22 07/20/22 07/20/22 12:15 17:24 23:44 WBC RBC Hgb Hct MCV MCH RDW Plt Count [place] % (Auto) Seg Neutrophils % Seg Neutrophils # PT APTT D-Dimer ABG pH ABG pO2 ABG HCO3 ABG O2 Saturation ABG Base Excess ABG Hemoglobin Oxyhemoglobin Sodium Potassium Chloride Carbon Dioxide BUN Creatinine Glucose POC Glucose 138 H 135 H 131 H Lactic Acid Uric Acid Calcium Phosphorus Magnesium Ferritin Total Bilirubin AST Lactate Dehydrogenase Total Creatine Kinase C-Reactive Protein Total Protein Albumin TSH Free T3 Index Urine WBC (Auto) Urine Creatinine Salicylates Acetaminophen Valproic Acid SARS-CoV-2 (PCR) 07/21/22 07/21/22 07/21/22 04:00 04:00 05:13 WBC RBC 2.92 L Hgb 9.6 L Hct 29.0 L MCV 99 H MCH 33 H RDW 15.6 H Plt Count 136 L [place] % (Auto) Seg Neutrophils % Seg Neutrophils # PT APTT D-Dimer ABG pH ABG pO2 ABG HCO3 ABG O2 Saturation ABG Base Excess ABG Hemoglobin Oxyhemoglobin Sodium Potassium Chloride Carbon Dioxide 32 H BUN Creatinine 0.3 L Glucose 133 H POC Glucose 142 H Lactic Acid Uric Acid Calcium 8.3 L Phosphorus Magnesium Ferritin Total Bilirubin AST Lactate Dehydrogenase Total Creatine Kinase C-Reactive Protein Total Protein Albumin TSH Free T3 Index Urine WBC (Auto) Urine Creatinine Salicylates Acetaminophen Valproic Acid SARS-CoV-2 (PCR) 07/21/22 07/21/22 07/21/22 06:16 11:48 16:08 WBC RBC Hgb Hct MCV MCH RDW Plt Count [place] % (Auto) Seg Neutrophils % Seg Neutrophils # PT APTT D-Dimer ABG pH ABG pO2 ABG HCO3 ABG O2 Saturation ABG Base Excess ABG Hemoglobin Oxyhemoglobin Sodium Potassium Chloride Carbon Dioxide BUN Creatinine Glucose POC Glucose 149 H 124 H 139 H Lactic Acid Uric Acid Calcium Phosphorus Magnesium Ferritin Total Bilirubin AST Lactate Dehydrogenase Total Creatine Kinase C-Reactive Protein Total Protein Albumin TSH Free T3 Index Urine WBC (Auto) Urine Creatinine Salicylates Acetaminophen Valproic Acid SARS-CoV-2 (PCR) 07/22/22 07/22/22 07/22/22 00:05 04:00 04:13 WBC RBC 2.90 L Hgb 9.5 L Hct 28.9 L MCV 100 H MCH 33 H RDW 15.5 H Plt Count [place] % (Auto) 10.0 H Seg Neutrophils % Seg Neutrophils # PT APTT D-Dimer ABG pH ABG pO2 ABG HCO3 ABG O2 Saturation ABG Base Excess ABG Hemoglobin Oxyhemoglobin Sodium Potassium Chloride Carbon Dioxide 31 H BUN Creatinine 0.4 L Glucose 105 H POC Glucose 143 H Lactic Acid Uric Acid Calcium Phosphorus Magnesium Ferritin Total Bilirubin AST Lactate Dehydrogenase Total Creatine Kinase C-Reactive Protein Total Protein Albumin TSH Free T3 Index Urine WBC (Auto) Urine Creatinine Salicylates Acetaminophen Valproic Acid SARS-CoV-2 (PCR) 07/22/22 07/23/22 07/23/22 11:03 04:25 04:25 WBC RBC 2.71 L Hgb 9.1 L Hct 27.0 L MCV 100 H MCH 33 H RDW 15.4 H Plt Count [place] % (Auto) Seg Neutrophils % Seg Neutrophils # PT APTT D-Dimer ABG pH ABG pO2 ABG HCO3 ABG O2 Saturation ABG Base Excess ABG Hemoglobin Oxyhemoglobin Sodium Potassium Chloride Carbon Dioxide 33 H BUN Creatinine 0.4 L Glucose POC Glucose 111 H Lactic Acid Uric Acid Calcium 8.3 L Phosphorus Magnesium Ferritin Total Bilirubin AST Lactate Dehydrogenase Total Creatine Kinase C-Reactive Protein Total Protein Albumin TSH Free T3 Index Urine WBC (Auto) Urine Creatinine Salicylates Acetaminophen Valproic Acid SARS-CoV-2 (PCR) 07/23/22 07/23/22 07/23/22 06:14 11:09 23:34 WBC RBC Hgb Hct MCV MCH RDW Plt Count [place] % (Auto) Seg Neutrophils % Seg Neutrophils # PT APTT D-Dimer ABG pH ABG pO2 ABG HCO3 ABG O2 Saturation ABG Base Excess ABG Hemoglobin Oxyhemoglobin Sodium Potassium Chloride Carbon Dioxide BUN Creatinine Glucose POC Glucose 106 H 117 H 115 H Lactic Acid Uric Acid Calcium Phosphorus Magnesium Ferritin Total Bilirubin AST Lactate Dehydrogenase Total Creatine Kinase C-Reactive Protein Total Protein Albumin TSH Free T3 Index Urine WBC (Auto) Urine Creatinine Salicylates Acetaminophen Valproic Acid SARS-CoV-2 (PCR) 07/24/22 07/24/22 07/24/22 05:24 11:25 16:52 WBC RBC Hgb Hct MCV MCH RDW Plt Count [place] % (Auto) Seg Neutrophils % Seg Neutrophils # PT APTT D-Dimer ABG pH ABG pO2 ABG HCO3 ABG O2 Saturation ABG Base Excess ABG Hemoglobin Oxyhemoglobin Sodium Potassium Chloride Carbon Dioxide BUN Creatinine Glucose POC Glucose 122 H 139 H 126 H Lactic Acid Uric Acid Calcium Phosphorus Magnesium Ferritin Total Bilirubin AST Lactate Dehydrogenase Total Creatine Kinase C-Reactive Protein Total Protein Albumin TSH Free T3 Index Urine WBC (Auto) Urine Creatinine Salicylates Acetaminophen Valproic Acid SARS-CoV-2 (PCR) 07/25/22 07/25/22 07/25/22 00:10 04:22 04:22 WBC RBC 2.86 L Hgb 9.4 L Hct 28.5 L MCV 100 H MCH 33 H RDW 15.4 H Plt Count [place] % (Auto) Seg Neutrophils % Seg Neutrophils # PT APTT D-Dimer ABG pH ABG pO2 ABG HCO3 ABG O2 Saturation ABG Base Excess ABG Hemoglobin Oxyhemoglobin Sodium Potassium Chloride Carbon Dioxide 31 H BUN Creatinine 0.3 L Glucose 135 H POC Glucose 131 H Lactic Acid Uric Acid Calcium 8.0 L Phosphorus 2.20 L Magnesium Ferritin Total Bilirubin AST Lactate Dehydrogenase Total Creatine Kinase C-Reactive Protein Total Protein Albumin TSH Free T3 Index Urine WBC (Auto) Urine Creatinine Salicylates Acetaminophen Valproic Acid SARS-CoV-2 (PCR) 07/25/22 07/25/22 07/25/22 05:17 11:49 17:27 WBC RBC Hgb Hct MCV MCH RDW Plt Count [place] % (Auto) Seg Neutrophils % Seg Neutrophils # PT APTT D-Dimer ABG pH ABG pO2 ABG HCO3 ABG O2 Saturation ABG Base Excess ABG Hemoglobin Oxyhemoglobin Sodium Potassium Chloride Carbon Dioxide BUN Creatinine Glucose POC Glucose 155 H 140 H 123 H Lactic Acid Uric Acid Calcium Phosphorus Magnesium Ferritin Total Bilirubin AST Lactate Dehydrogenase Total Creatine Kinase C-Reactive Protein Total Protein Albumin TSH Free T3 Index Urine WBC (Auto) Urine Creatinine Salicylates Acetaminophen Valproic Acid SARS-CoV-2 (PCR) 07/25/22 07/26/22 07/26/22 23:57 06:00 06:08 WBC RBC Hgb Hct MCV MCH RDW Plt Count [place] % (Auto) Seg Neutrophils % Seg Neutrophils # PT APTT D-Dimer ABG pH ABG pO2 ABG HCO3 ABG O2 Saturation ABG Base Excess ABG Hemoglobin Oxyhemoglobin Sodium Potassium 3.5 L Chloride Carbon Dioxide 32 H BUN Creatinine 0.3 L Glucose 116 H POC Glucose 124 H 134 H Lactic Acid Uric Acid Calcium 7.9 L Phosphorus Magnesium Ferritin Total Bilirubin AST Lactate Dehydrogenase Total Creatine Kinase C-Reactive Protein Total Protein Albumin TSH Free T3 Index Urine WBC (Auto) Urine Creatinine Salicylates Acetaminophen Valproic Acid SARS-CoV-2 (PCR) 07/26/22 07/26/22 07/26/22 13:38 17:22 23:22 WBC RBC Hgb Hct MCV MCH RDW Plt Count [place] % (Auto) Seg Neutrophils % Seg Neutrophils # PT APTT D-Dimer ABG pH ABG pO2 ABG HCO3 ABG O2 Saturation ABG Base Excess ABG Hemoglobin Oxyhemoglobin Sodium Potassium Chloride Carbon Dioxide BUN Creatinine Glucose POC Glucose 112 H 123 H 117 H Lactic Acid Uric Acid Calcium Phosphorus Magnesium Ferritin Total Bilirubin AST Lactate Dehydrogenase Total Creatine Kinase C-Reactive Protein Total Protein Albumin TSH Free T3 Index Urine WBC (Auto) Urine Creatinine Salicylates Acetaminophen Valproic Acid SARS-CoV-2 (PCR) 07/26/22 07/27/22 07/27/22 Unknown 05:54 10:00 WBC RBC 2.61 L Hgb 8.8 L Hct 26.2 L MCV 100 H MCH 34 H RDW 15.6 H Plt Count [place] % (Auto) Seg Neutrophils % Seg Neutrophils # PT APTT D-Dimer ABG pH ABG pO2 ABG HCO3 ABG O2 Saturation ABG Base Excess ABG Hemoglobin Oxyhemoglobin Sodium Potassium Chloride Carbon Dioxide BUN Creatinine 0.3 L Glucose 125 H POC Glucose 124 H Lactic Acid Uric Acid Calcium 8.3 L Phosphorus 1.90 L Magnesium Ferritin Total Bilirubin AST Lactate Dehydrogenase Total Creatine Kinase C-Reactive Protein Total Protein Albumin TSH Free T3 Index Urine WBC (Auto) Urine Creatinine Salicylates Acetaminophen Valproic Acid SARS-CoV-2 (PCR) 07/27/22 07/27/22 07/27/22 11:06 18:32 23:20 WBC RBC Hgb Hct MCV MCH RDW Plt Count [place] % (Auto) Seg Neutrophils % Seg Neutrophils # PT APTT D-Dimer ABG pH ABG pO2 ABG HCO3 ABG O2 Saturation ABG Base Excess ABG Hemoglobin Oxyhemoglobin Sodium Potassium Chloride Carbon Dioxide BUN Creatinine Glucose POC Glucose 133 H 119 H 110 H Lactic Acid Uric Acid Calcium Phosphorus Magnesium Ferritin Total Bilirubin AST Lactate Dehydrogenase Total Creatine Kinase C-Reactive Protein Total Protein Albumin TSH Free T3 Index Urine WBC (Auto) Urine Creatinine Salicylates Acetaminophen Valproic Acid SARS-CoV-2 (PCR) 07/28/22 07/28/22 07/29/22 05:37 11:13 04:05 WBC RBC 2.64 L Hgb 8.8 L Hct 26.6 L MCV 101 H MCH 33 H RDW 16.4 H Plt Count [place] % (Auto) Seg Neutrophils % Seg Neutrophils # PT APTT D-Dimer ABG pH ABG pO2 ABG HCO3 ABG O2 Saturation ABG Base Excess ABG Hemoglobin Oxyhemoglobin Sodium Potassium Chloride Carbon Dioxide BUN Creatinine Glucose POC Glucose 127 H 115 H Lactic Acid Uric Acid Calcium Phosphorus Magnesium Ferritin Total Bilirubin AST Lactate Dehydrogenase Total Creatine Kinase C-Reactive Protein Total Protein Albumin TSH Free T3 Index Urine WBC (Auto) Urine Creatinine Salicylates Acetaminophen Valproic Acid SARS-CoV-2 (PCR) 07/29/22 07/29/22 07/29/22 04:05 05:20 11:06 WBC RBC Hgb Hct MCV MCH RDW Plt Count [place] % (Auto) Seg Neutrophils % Seg Neutrophils # PT APTT D-Dimer ABG pH ABG pO2 ABG HCO3 ABG O2 Saturation ABG Base Excess ABG Hemoglobin Oxyhemoglobin Sodium Potassium Chloride Carbon Dioxide 33 H BUN Creatinine 0.3 L Glucose 115 H POC Glucose 119 H 125 H Lactic Acid Uric Acid Calcium 8.2 L Phosphorus Magnesium Ferritin Total Bilirubin AST Lactate Dehydrogenase Total Creatine Kinase C-Reactive Protein Total Protein Albumin TSH Free T3 Index Urine WBC (Auto) Urine Creatinine Salicylates Acetaminophen Valproic Acid SARS-CoV-2 (PCR) 07/29/22 07/29/22 07/30/22 16:08 23:41 06:03 WBC RBC Hgb Hct MCV MCH RDW Plt Count [place] % (Auto) Seg Neutrophils % Seg Neutrophils # PT APTT D-Dimer ABG pH ABG pO2 ABG HCO3 ABG O2 Saturation ABG Base Excess ABG Hemoglobin Oxyhemoglobin Sodium Potassium Chloride Carbon Dioxide BUN Creatinine Glucose POC Glucose 111 H 120 H 110 H Lactic Acid Uric Acid Calcium Phosphorus Magnesium Ferritin Total Bilirubin AST Lactate Dehydrogenase Total Creatine Kinase C-Reactive Protein Total Protein Albumin TSH Free T3 Index Urine WBC (Auto) Urine Creatinine Salicylates Acetaminophen Valproic Acid SARS-CoV-2 (PCR) 07/30/22 07/30/22 07/30/22 11:18 14:15 14:15 WBC RBC 2.55 L Hgb 8.5 L Hct 25.7 L MCV 101 H MCH 33 H RDW 16.5 H Plt Count [place] % (Auto) Seg Neutrophils % Seg Neutrophils # PT APTT D-Dimer ABG pH ABG pO2 ABG HCO3 ABG O2 Saturation ABG Base Excess ABG Hemoglobin Oxyhemoglobin Sodium Potassium Chloride Carbon Dioxide BUN Creatinine 0.3 L Glucose POC Glucose 111 H Lactic Acid Uric Acid Calcium Phosphorus Magnesium Ferritin Total Bilirubin AST Lactate Dehydrogenase Total Creatine Kinase C-Reactive Protein Total Protein Albumin TSH Free T3 Index Urine WBC (Auto) Urine Creatinine Salicylates Acetaminophen Valproic Acid SARS-CoV-2 (PCR) 07/30/22 07/31/22 07/31/22 16:30 04:45 04:45 WBC RBC 2.67 L Hgb 8.9 L Hct 26.9 L MCV 101 H MCH 33 H RDW 17.0 H Plt Count [place] % (Auto) Seg Neutrophils % Seg Neutrophils # PT APTT D-Dimer ABG pH ABG pO2 ABG HCO3 ABG O2 Saturation ABG Base Excess ABG Hemoglobin Oxyhemoglobin Sodium Potassium Chloride Carbon Dioxide 32 H BUN Creatinine 0.3 L Glucose 108 H POC Glucose 111 H Lactic Acid Uric Acid Calcium Phosphorus Magnesium Ferritin Total Bilirubin AST Lactate Dehydrogenase Total Creatine Kinase C-Reactive Protein Total Protein Albumin TSH Free T3 Index Urine WBC (Auto) Urine Creatinine Salicylates Acetaminophen Valproic Acid SARS-CoV-2 (PCR) 07/31/22 07/31/22 07/31/22 05:21 11:33 17:57 WBC RBC Hgb Hct MCV MCH RDW Plt Count [place] % (Auto) Seg Neutrophils % Seg Neutrophils # PT APTT D-Dimer ABG pH ABG pO2 ABG HCO3 ABG O2 Saturation ABG Base Excess ABG Hemoglobin Oxyhemoglobin Sodium Potassium Chloride Carbon Dioxide BUN Creatinine Glucose POC Glucose 114 H 112 H 115 H Lactic Acid Uric Acid Calcium Phosphorus Magnesium Ferritin Total Bilirubin AST Lactate Dehydrogenase Total Creatine Kinase C-Reactive Protein Total Protein Albumin TSH Free T3 Index Urine WBC (Auto) Urine Creatinine Salicylates Acetaminophen Valproic Acid SARS-CoV-2 (PCR) 08/01/22 08/01/22 08/01/22 00:24 04:58 06:05 WBC RBC 2.72 L Hgb 9.0 L Hct 27.7 L MCV 102 H MCH 33 H RDW 17.4 H Plt Count [place] % (Auto) Seg Neutrophils % Seg Neutrophils # PT APTT D-Dimer ABG pH ABG pO2 ABG HCO3 ABG O2 Saturation ABG Base Excess ABG Hemoglobin Oxyhemoglobin Sodium Potassium Chloride Carbon Dioxide BUN Creatinine Glucose POC Glucose 108 H 121 H Lactic Acid Uric Acid Calcium Phosphorus Magnesium Ferritin Total Bilirubin AST Lactate Dehydrogenase Total Creatine Kinase C-Reactive Protein Total Protein Albumin TSH Free T3 Index Urine WBC (Auto) Urine Creatinine Salicylates Acetaminophen Valproic Acid SARS-CoV-2 (PCR) 08/01/22 08/01/22 08/02/22 11:48 18:30 00:26 WBC RBC Hgb Hct MCV MCH RDW Plt Count [place] % (Auto) Seg Neutrophils % Seg Neutrophils # PT APTT D-Dimer ABG pH ABG pO2 ABG HCO3 ABG O2 Saturation ABG Base Excess ABG Hemoglobin Oxyhemoglobin Sodium Potassium Chloride Carbon Dioxide BUN Creatinine Glucose POC Glucose 123 H 118 H 106 H Lactic Acid Uric Acid Calcium Phosphorus Magnesium Ferritin Total Bilirubin AST Lactate Dehydrogenase Total Creatine Kinase C-Reactive Protein Total Protein Albumin TSH Free T3 Index Urine WBC (Auto) Urine Creatinine Salicylates Acetaminophen Valproic Acid SARS-CoV-2 (PCR) 08/02/22 08/02/22 08/02/22 05:00 05:57 13:23 WBC RBC Hgb Hct MCV MCH RDW Plt Count [place] % (Auto) Seg Neutrophils % Seg Neutrophils # PT APTT D-Dimer ABG pH ABG pO2 ABG HCO3 ABG O2 Saturation ABG Base Excess ABG Hemoglobin Oxyhemoglobin Sodium Potassium Chloride Carbon Dioxide BUN Creatinine 0.4 L Glucose POC Glucose 119 H 112 H Lactic Acid Uric Acid Calcium Phosphorus Magnesium Ferritin Total Bilirubin AST Lactate Dehydrogenase Total Creatine Kinase C-Reactive Protein Total Protein Albumin TSH Free T3 Index Urine WBC (Auto) Urine Creatinine Salicylates Acetaminophen Valproic Acid SARS-CoV-2 (PCR) 08/02/22 08/02/22 08/03/22 17:29 23:28 06:27 WBC RBC Hgb Hct MCV MCH RDW Plt Count [place] % (Auto) Seg Neutrophils % Seg Neutrophils # PT APTT D-Dimer ABG pH ABG pO2 ABG HCO3 ABG O2 Saturation ABG Base Excess ABG Hemoglobin Oxyhemoglobin Sodium Potassium Chloride Carbon Dioxide BUN Creatinine Glucose POC Glucose 120 H 108 H 140 H Lactic Acid Uric Acid Calcium Phosphorus Magnesium Ferritin Total Bilirubin AST Lactate Dehydrogenase Total Creatine Kinase C-Reactive Protein Total Protein Albumin TSH Free T3 Index Urine WBC (Auto) Urine Creatinine Salicylates Acetaminophen Valproic Acid SARS-CoV-2 (PCR) 08/03/22 08/03/22 08/03/22 10:08 13:07 18:38 WBC RBC Hgb Hct MCV MCH RDW Plt Count [place] % (Auto) Seg Neutrophils % Seg Neutrophils # PT APTT D-Dimer ABG pH ABG pO2 ABG HCO3 ABG O2 Saturation ABG Base Excess ABG Hemoglobin Oxyhemoglobin Sodium Potassium Chloride Carbon Dioxide BUN Creatinine Glucose POC Glucose 113 H 109 H 122 H Lactic Acid Uric Acid Calcium Phosphorus Magnesium Ferritin Total Bilirubin AST Lactate Dehydrogenase Total Creatine Kinase C-Reactive Protein Total Protein Albumin TSH Free T3 Index Urine WBC (Auto) Urine Creatinine Salicylates Acetaminophen Valproic Acid SARS-CoV-2 (PCR) 08/03/22 08/04/22 08/04/22 23:44 05:10 09:39 WBC RBC Hgb Hct MCV MCH RDW Plt Count [place] % (Auto) Seg Neutrophils % Seg Neutrophils # PT APTT D-Dimer ABG pH ABG pO2 ABG HCO3 ABG O2 Saturation ABG Base Excess ABG Hemoglobin Oxyhemoglobin Sodium Potassium Chloride Carbon Dioxide BUN Creatinine Glucose POC Glucose 119 H 114 H 125 H Lactic Acid Uric Acid Calcium Phosphorus Magnesium Ferritin Total Bilirubin AST Lactate Dehydrogenase Total Creatine Kinase C-Reactive Protein Total Protein Albumin TSH Free T3 Index Urine WBC (Auto) Urine Creatinine Salicylates Acetaminophen Valproic Acid SARS-CoV-2 (PCR) 08/04/22 08/04/22 08/04/22 11:37 15:58 23:35 WBC RBC Hgb Hct MCV MCH RDW Plt Count [place] % (Auto) Seg Neutrophils % Seg Neutrophils # PT APTT D-Dimer ABG pH ABG pO2 ABG HCO3 ABG O2 Saturation ABG Base Excess ABG Hemoglobin Oxyhemoglobin Sodium Potassium Chloride Carbon Dioxide BUN Creatinine Glucose POC Glucose 116 H 112 H 122 H Lactic Acid Uric Acid Calcium Phosphorus Magnesium Ferritin Total Bilirubin AST Lactate Dehydrogenase Total Creatine Kinase C-Reactive Protein Total Protein Albumin TSH Free T3 Index Urine WBC (Auto) Urine Creatinine Salicylates Acetaminophen Valproic Acid SARS-CoV-2 (PCR) 08/05/22 08/05/22 08/05/22 04:00 04:00 05:21 WBC RBC 2.76 L Hgb 9.2 L Hct 28.1 L MCV 102 H MCH 33 H RDW 18.7 H Plt Count Winn % (Auto) Seg Neutrophils % Seg Neutrophils # PT APTT D-Dimer ABG pH ABG pO2 ABG HCO3 ABG O2 Saturation ABG Base Excess ABG Hemoglobin Oxyhemoglobin Sodium Potassium Chloride Carbon Dioxide BUN Creatinine 0.3 L Glucose 112 H POC Glucose 132 H Lactic Acid Uric Acid Calcium Phosphorus Magnesium Ferritin Total Bilirubin AST Lactate Dehydrogenase Total Creatine Kinase C-Reactive Protein Total Protein Albumin TSH Free T3 Index Urine WBC (Auto) Urine Creatinine Salicylates Acetaminophen Valproic Acid SARS-CoV-2 (PCR) 08/05/22 08/05/22 08/06/22 11:08 16:16 05:07 WBC RBC Hgb Hct MCV MCH RDW Plt Count Winn % (Auto) Seg Neutrophils % Seg Neutrophils # PT APTT D-Dimer ABG pH ABG pO2 ABG HCO3 ABG O2 Saturation ABG Base Excess ABG Hemoglobin Oxyhemoglobin Sodium Potassium Chloride Carbon Dioxide BUN Creatinine Glucose POC Glucose 116 H 117 H 123 H Lactic Acid Uric Acid Calcium Phosphorus Magnesium Ferritin Total Bilirubin AST Lactate Dehydrogenase Total Creatine Kinase C-Reactive Protein Total Protein Albumin TSH Free T3 Index Urine WBC (Auto) Urine Creatinine Salicylates Acetaminophen Valproic Acid SARS-CoV-2 (PCR)
--- NOTE | 2022-08-06 18:42 | Discharge Summary ---
Providers - Providers Date of Admission: 07/07/22 12:10 Date of discharge: 08/06/22 Attending physician: FOX DOUGLAS MD 07/07/22 02:48 Consult to Dietitian/Nutrition [CONS] Routine Physician Instructions: Reason For Exam: Reason for Consult: Write/Manage Tube Feeding Consult to Physician [CONS] Stat Comment: Dr. Louis spoke with Dr. Abel @ [phone] Consulting Provider: CATIE ABEL Physician Instructions: Reason For Exam: Acute respiratory failure and mechanical ventilati 07/07/22 05:08 Consult to Physician [CONS] Urgent Comment: Dr. Louis spoke with Dr. Kincaid @ [phone] Consulting Provider: YAN RODRIGUES Physician Instructions: Reason For Exam: hypernatremia 07/07/22 16:08 Consult to Physician [CONS] Routine Comment: Consulting Provider: SASCHA MOORE Physician Instructions: Reason For Exam: covid 19 infection 07/08/22 10:43 Consult to PICC Line RN [CONS] Routine Reason For Exam: needs fdc access Type Line:: PICC 07/11/22 11:43 Consult to Physician [CONS] Routine Comment: Consulting Provider: BLADIMIR RAYA Physician Instructions: Reason For Exam: Encephalopathy 07/18/22 12:17 Consult to Physician [CONS] Routine Comment: call office gave reason for call/jennifer Consulting Provider: LAURA PARRISH Physician Instructions: Reason For Exam: Trach and Peg Placement 07/25/22 13:12 Occupational Therapy Evaluate and Treat [CONS] Routine Comment: Reason For Exam: Debility Physical Therapy Evaluation and Treat [CONS] Routine Comment: Reason For Exam: Debility Primary care physician: TRACI DALTON MD Hospitalization Reason for admission: electrolyte imbalances, hypoxic respiratory failure, and COVID-19 pneumonia Condition: Stable Hospital course: This is a 76-year-old female with CVA, pulmonary embolism, hypothyroidism and JUJU admitted with electrolyte imbalances, hypoxic respiratory failure and COVID- 19 pneumonia Hospital Course to Date: 07/08: Patient noted to be COVID-positive, started on remdesivir, Decadron, ceftriaxone azithromycin and infectious disease was consulted yesterday. This morning patient is on any sedation, PICC line to be placed. RT to attempt PSV. Started on free water flushes and tube feedings. Continues on D5 half-normal saline. 07/09: Patient remains encephalopathic, not on any sedation. Hypernatremia is improving, on FWF Q4hrs and D5w gtt per Nephro. If hypernatremia continue to improve and patient's mentation is unchanged, will get a repeat CT to r/o intrac ranial abnormalities. Patient remains afebrile, leukocytosis improved, and VSS. Continue current IV abx per ID. Patient failed PSV trial again today, continue PSV trial as tolerated 07/10: Remains stable on the vent, tolerating PSV trial this am. sodium continue to improve but no change in mental status. D/w CCM will get MRI brain to r/o any intracranial abnormalities, EEG also ordered to r/o seizures. Continue FWF and D5w gtt per Nephro. Continue IV steroids and current IV abx per ID. 07/11: Hypernatremia resolved, mentation is unchanged, remains on low vent setting. EEG noted, and MRI brain pending. Will consult Neurology for further recommendations. Continue daily PSV trial as tolerated. 07/12: Appears more awake this morning but still not following any commands. MRI brain with no acute findings and sodium normalized. Awaiting Neuro consult. Continue daily PSV trial as tolerated. Patient's daughter was updated via phone, all questions and concerns were addressed at this time. Medical records requested from [facility] and [facility]. 07/13: DELMI overnight. Mentation is unchanged, remains stable on the vent. Neurology consult pending. Continue vent adjustment per [facility] and daily PSV trial as tolerated. 07/14: Mentation is unchanged, remains afebrile and stable on the vent, VSS. Complete antibiotics course, still on IV steroids X3 more days. ID recommendations noted, remove corbin. Continue daily PSV trial as tolerated. 07/15: DELMI overnight, mentation unchanged, VSS. Patient failed PSV trial this am due to apnea. Continue daily PSV trial as tolerated. Possible trach and Peg per [facility]. 07/16: No acute events overnight, attempted PSV again today. [facility] to have family meeting on 07/17 to discuss trach/PEG 07/17: [facility] will have family meeting tomorrow. Failed PSV again. No acute events overnight. Thrombocytopenia continues to improve 07/18: [facility] held a family meeting today and surgery will be consulted for trach/PEG placement. Family stated that patient had not had her levothyroxine for several months due to decreased p.o. intake, will send thyroid panel. No acute events reported overnight. Hypotension today and 500 mL normal saline bolus given. Possible trach/peg within 2 days 07/19: No acute events reported overnight. Free T4 normal. Failed PSV 07/20: No acute events reported overnight. Patient taken off isolation per ID. Trach/PEG scheduled for Friday. failed PSV 07/21: No acute events reported overnight. Trach/peg for friday. PSV ongoing 07/22: Remains stable, DELMI overnight. Plan for possible Trac/PEG today by general surgery. Continue dailu PSV trial as tolerated. 07/23: s/p trach and PEG, remains stable on low vent setting, recent CXR is unremarkable. VSS. Resume TF once okayed by General Surgery. Continue daily PSV trial as tolerated. Possible LTAC placement, case management to arrange. 07/24: Remains stable on the vent, tolerating TF via Peg. Continue supportive measures and daily PSV trial. Awaiting placement. 07/25: DELMI overnight. Continue supportive measures and daily PSV trial. PT/OT consulted. Awaiting placement, case management to arrange. 07/26: DELMI overnight. Continue supportive measures and daily PSV trial. Awaiting placement, case management to arrange. 07/27: Patient failed PSV trial this am due to periods of apnea. Continue daily PSV trial as tolerated. Awaiting placement, case management to arrange. 07/28: DELMI overnight. Continue daily PSV trial as tolerated. Awaiting placement, case management to arrange. 07/29: No acute events reported overnight, failed CPAP trial. 07/30: CPAP trial, no acute events reported overnight. Continue supportive care. Awaiting LTAC placement. 07/31: No acute events reported overnight. Failed CPAP trial. 08/01: No acute events reported overnight, continue supportive care. Failed CPAP again. 08/02: no acute events, cpap trials as tolerated 08/03: Tolerating pressure support trial. No acute events reported overnight. We will get labs in the morning. 08/04: Continue CPAP trials, labs ordered for a.m. No acute reported overnight 08/05: DELMI overnight. Continue daily PSV trial as tolerated. Awaiting placement, case management to arrange. 08/06: Tolerating PSV trial this am. Plan for Discharge to LTAC today. Assessment and Plan Neuro: Acute metabolic encephalopathy, h/o CVA with hemiplegia, dysphagia, aphasia, dementia -Reorientation as needed -Maintain sleep-wake cycle -Resume home Lipitor -As needed analgesia -CT head shows no acute intracranial hemorrhage, multiple chronic appearing infarcts including left MCA distribution, left cerebral hemisphere and within the right basal ganglia -Depakene -EEG noted -MRI noted -Neurology consult pending Cardiac: h/o HLD -Resume home Lipitor -Blood pressure monitoring per protocol Respiratory: Acute hypoxic respiratory failure, h/o JUJU, pulmonary embolism -CCM consulted, appreciate recommendations -Intubated on 07/07 -07/22 s/p Trach/PEG -A.m. vent settings:PRVC-28%,6,10,400 -See RT notes for titration -A.m. ABG and CXR noted -VAP bundle -SPO2 monitoring GI:TF -07/22 s/p PEGtube placement -PPI -NTR consulted for tube feedings -BR: Senokot-S : Hypernatremia(resolved), hypokalemia, rhabdomyolysis -Nephrology consulted, appreciate recommendations -Monitor intake and output -Free water flush -Renally dose medications -Avoid nephrotoxic medications -Replete potassium -Trend BMP ID: COVID Pneumonia, lactic acidosis-resolved -Infectious disease consulted, appreciate recommendation -completed IV antibiotics course -Dexamethasone for 10 days, end 07/17 -Contact/droplet precautions -f/u blood culture -Trend COVID-19 inflammatory markers -Monitor WBC and temperature curve -Prophylactic anticoagulation based on D-dimer per hospital protocol Heme: Thrombocytopenia-improved -Patient presented with low plt -Plt continue to trend down, but less than 50% of admit count -No s/s of any active bleeding, H&H stable -Continue to trend CBC -On Heparin SubQ -Transfuse for plt less than 20 and hgb less than 7 Endo: h/o hypothyroidism -Avoid hypoglycemia -SSI -Accu-Cheks q. 6 -Long-acting insulin, titrate as needed -Resume home Synthroid GI/DVT Prophylaxis -PPI- pepcid -Eliquis -SCDs to bilateral lower extremities while in bed The high probability of a clinically significant, sudden or life threatening deterioration of the [multi] system(s) required my full and direct attention, intervention and personal management. The aggregate critical care time was [60] minutes. This time is in addition to time spent performing reported procedures but includes the following: [x] Data Review and interpretation [x] Patient assessment and monitoring of vital signs [x] Documentation [x] Medication orders and management Disposition Plan: ICU Total Time Spent with Patient (Minutes): 60 Disposition: 63 [facility] Final Discharge Diagnosis (Prints w/discharge instructions): Hypoxic Respiratory Failure s/p Trach and Peg. h/o CVA with hemiplegia. Dysphagia s/p PEG-TUbe placement Time spent for discharge: 35 Core Measure Documentation - Palliative Care Palliative Care/ Comfort Measures: Not Applicable - Core Measures Any of the following diagnoses?: none Exam - Physical Exam Narrative exam: General appearance: Present: other (Trached, stable on the vent) - EENT Eyes: Present: PERRL - Respiratory Respiratory effort: normal Respiratory: bilateral: rhonchi - Cardiovascular Rhythm: regular Heart Sounds: Present: S1 & S2 - Extremities Extremities: no ischemia, pulses intact, pulses symmetrical Extremity abnormal: edema - Peripheral Assessment Generalized Edema Type: Non-pitting Edema Degree: 2+ Capillary Refill: < 3 seconds Skin Temperature: Warm Peripheral Pulses: within normal limits - Abdominal General gastrointestinal: soft, non-distended, normal bowel sounds - Integumentary Integumentary: Present: warm, dry - Psychiatric Psychiatric: other (Trached, unresponsive on the vent, not on any sedations) - Neurologic Neurologic: other (Trached, unresponsive, not on any sedations. Open eyes spontaneously, does not track, not following commands, with nonpurposeful movements) - Allied Health Allied health notes reviewed: nursing, case management - Constitutional Vitals: Temp Pulse Resp BP Pulse Ox 98.7 F 97 H 11 L 133/63 100 08/06/22 16:24 08/06/22 16:12 08/06/22 16:00 08/06/22 16:12 08/06/22 16:12 Plan Activity: other (Per facility) Diet: other (TF) Wound: open to air Follow up with: TRACI DALTON MD [Primary Care Provider] - 3-5 Days
[2022-08-06 20:04] VITALS: BP 134/64
== END 2022-08-06 20:35 | DRG 4 ==
LOC: ED 02:19 → CC1 12:10
PROVIDERS: ADMIT Internal Medicine; ATTEND Internal Medicine
PROC: 5A1955Z Respiratory Ventilation, Greater than 96 Consecutive Hours (ICD-10-PCS; principal; 2022-07-07)
PROC: 0BH17EZ Insertion of Endotracheal Airway into Trachea, Via Natural or Artificial Opening (ICD-10-PCS; 2022-07-07)
PROC: 4A033R1 Measurement of Arterial Saturation, Peripheral, Percutaneous Approach (ICD-10-PCS; 2022-07-07)
PROC: XW033E5 Introduction of Remdesivir Anti-infective into Peripheral Vein, Percutaneous Approach, New Technology Group 5 (ICD-10-PCS; 2022-07-07)
PROC: 02HV33Z Insertion of Infusion Device into Superior Vena Cava, Percutaneous Approach (ICD-10-PCS; 2022-07-09)
PROC: 0B113F4 Bypass Trachea to Cutaneous with Tracheostomy Device, Percutaneous Approach (ICD-10-PCS; 2022-07-22)
PROC: 0DH63UZ Insertion of Feeding Device into Stomach, Percutaneous Approach (ICD-10-PCS; 2022-07-22)
DX: U07.1 COVID-19 (principal); J12.82 Pneumonia due to coronavirus disease 2019; G93.41 Metabolic encephalopathy; J96.01 Acute respiratory failure with hypoxia; J15.0 Pneumonia due to Klebsiella pneumoniae; E87.0 Hyperosmolality and hypernatremia; M62.82 Rhabdomyolysis; E87.2 Acidosis; I69.354 Hemiplegia and hemiparesis following cerebral infarction affecting left non-dominant side; Z88.0 Allergy status to penicillin; Z86.711 Personal history of pulmonary embolism; E03.9 Hypothyroidism, unspecified; F03.90 Unspecified dementia, unspecified severity, without behavioral disturbance, psychotic disturbance, mood disturbance, and anxiety; E87.6 Hypokalemia; E87.5 Hyperkalemia; I69.391 Dysphagia following cerebral infarction; I69.320 Aphasia following cerebral infarction; R13.10 Dysphagia, unspecified; D69.6 Thrombocytopenia, unspecified; E78.5 Hyperlipidemia, unspecified
CPT/HCPCS: 36415; 36600; 70450; 70551; 71045; 80048; 80053; 80164; 80307; 80320; 81001; 82140; 82533; 82550; 82565; 82570; 82728; 82803; 82962; 83615; 83735; 83935; 84100; 84145; 84300; 84436; 84439; 84443; 84481; 84484; 84550; 85025; 85027; 85379; 85610; 85730; 86140; 87040; 87070; 87076; 87186; 87205; 93005; 94002; 94003; 95819; 96374; 96375; 99291; G0378; J2704; J3490; J7070; Q9967; G0480; J0456; J0690; J0696; J1100; J1644; J1720; J1815; J3010; J3480; J7030; J7040; J7050; U0003